=== PATIENT | male | born 1970 | race Two or more races ===

== ENCOUNTER 2021-10-24 11:51 | Outpatient (REF) | payer MEDICARE, MEDICAID, SELFPAY ==
--- NOTE | ~2021-10-24 | XR_ITS ---
EXAMINATION: XR CHEST CLINICAL INFORMATION: Cough. COMPARISON: CT chest 07/23/2019 TECHNIQUE: 2 views of the chest were obtained. FINDINGS: No significant abnormality is noted involving the heart, lungs, mediastinum, bony thorax or soft tissues. XR/XR chest 2V IMPRESSION: Unremarkable chest examination.
== END 2021-10-24 11:52 | disposition home or self-care (01) ==
LOC: HO.XRAY 11:51
PROVIDERS: PCP Internal Medicine Geriatric Medicine; Visit Provider Family Medicine
DX: U07.1 COVID-19 (principal)
CPT/HCPCS: 71046

== ENCOUNTER 2022-02-03 12:53 | Emergency (ER) | payer MEDICARE, SELFPAY | END 2022-02-03 19:27 | disposition left against medical advice (07) | PROVIDERS: Emergency Provider Emergency Medicine; PCP Internal Medicine Geriatric Medicine | DX: K46.9 Unspecified abdominal hernia without obstruction or gangrene (principal) ==

== ENCOUNTER 2022-03-26 08:45 | Outpatient (REF) | payer MEDICARE, SELFPAY ==
--- NOTE | ~2022-03-26 | US_ITS ---
EXAMINATION: US ABDOMEN LIMITED CLINICAL INFORMATION: Umbilical hernia. COMPARISON: CT abdomen and pelvis with contrast 07/23/2019. TECHNIQUE: Real-time imaging of the periumbilical region. FINDINGS: A sliding-type umbilical hernia defect is seen, with neck measuring 1.1 x 1.1 cm (4:4 and 2:42). This contains a small peristalsing bowel loop. No mass or fluid collection is seen. There is no lymphadenopathy noted. No foreign body is seen. US/US abdomen limited IMPRESSION: A small sliding-type umbilical hernia defect is noted, as detailed.
== END 2022-03-26 08:46 | disposition home or self-care (01) ==
LOC: HO.US 08:45
PROVIDERS: Visit Provider Student in an Organized Health Care Education/Training Program
DX: K42.9 Umbilical hernia without obstruction or gangrene (principal)
CPT/HCPCS: 76705

== ENCOUNTER → 2022-04-24 12:51 | Outpatient (BNVA) | payer MEDICARE, SELFPAY | PROVIDERS: PCP Student in an Organized Health Care Education/Training Program; Visit Provider Surgery | DX: K42.9 Umbilical hernia without obstruction or gangrene (principal); E66.01 Morbid (severe) obesity due to excess calories; R06.83 Snoring; G47.33 Obstructive sleep apnea (adult) (pediatric); F19.10 Other psychoactive substance abuse, uncomplicated; Z68.42 Body mass index [BMI] 45.0-49.9, adult | CPT/HCPCS: 99202 ==

== ENCOUNTER 2022-05-04 11:52 | Outpatient (REF) | payer MEDICARE, SELFPAY ==
[2022-05-04 12:02] LABS: MANUAL DIFF FLAG NO
[2022-05-04 12:24] LABS: Basophils Percent Auto 0.4 % (0-2); Eosinophils Absolute Auto 0.2 X10*3/uL (0.0-0.4); Eosinophils Percent Auto 2.6 % (0-4); Hematocrit 49.8 % (42.0-52.0); Hemoglobin 15.7 g/dl (14.0-18.0); Imm Gran Abs Auto 0.02 X10*3/uL (0.00-0.03); Imm Gran Pct Auto 0.2 % (0.0-0.4); Lymphocytes Percent Auto 24.5 % (20-40); Mean Corpuscular HGB Conc 31.5 g/dl (31.0-36.0); Mean Corpuscular Hemoglobin 27.2 pg (27.0-33.0); Mean Corpuscular Volume 86.2 fL (80.0-98.0); Mean Platelet Volume 8.6 fL (9.4-12.4); Monocytes Absolute Auto 0.5 X10*3/uL (0.1-1.2); Monocytes Percent Auto 5.7 % (2-11); Neutrophils Absolute Auto 5.4 x10*3/uL (2.0-8.3); Neutrophils Percent Auto 66.6 % (45-73); Platelet Count 293 X10*3/uL (160-400); Red Blood Count 5.78 X10*6/uL (4.60-5.80); Red Cell Distribution Width 13.4 % (11.0-16.0); White Blood Count 8.1 X10*3/uL (4.8-10.8)
[2022-05-04 12:51] LABS: Estimated Average Glucose 140 mg/dL; Hemoglobin A1c % 6.5 %
[2022-05-04 12:57] LABS: Alanine Aminotransferase 57 U/L (0-40); Albumin Level 4.3 g/dL (3.5-5.0); Alkaline Phosphatase 117 U/L (39-117); Anion Gap 13 (12-20); Aspartate Amino Transferase 27 U/L (5-37); Bilirubin Total 0.4 mg/dL (0.0-1.0); Blood Urea Nitrogen 15 mg/dL (9-16); Calcium 9.7 mg/dL (8.4-10.2); Carbon Dioxide 27 mmol/L (22-29); Chloride 104 mmol/L (96-108); Estimated Glomerular Filt Rate > 60; Glucose Random 142 mg/dL (60-115); Potassium 4.5 mmol/L (3.3-5.1); Sodium 139 mmol/L (135-145); Total Protein 7.4 g/dL (6.5-8.0)
[2022-05-04 15:44] LABS: Amphetamine Screen Urine Not Detected (Not Detect); Barbiturates, Urine Not Detected (Not Detect); Benzodiazepines Screen Urine Not Detected (Not Detect); Cannabinoid Screen Urine Not Detected (Not Detect); Cocaine Screen Urine Not Detected (Not Detect); Fentanyl, urine Not Detected (Not Detect); Opiate Screen Urine Not Detected (Not Detect); Phencyclidine Screen Urine Not Detected (Not Detect)
[2022-05-10 03:34] LABS: Cotinine, U 1757 ng/mL; Nicotine, U >20000 ng/mL
== END 2022-05-04 11:53 | disposition home or self-care (01) ==
LOC: HO.LAB 11:52
PROVIDERS: Visit Provider Surgery
DX: E66.01 Morbid (severe) obesity due to excess calories (principal); F19.10 Other psychoactive substance abuse, uncomplicated; G47.33 Obstructive sleep apnea (adult) (pediatric); K42.9 Umbilical hernia without obstruction or gangrene; R06.83 Snoring; R73.9 Hyperglycemia, unspecified
CPT/HCPCS: 80053; 80307; 80323; 83036; 84134; 85025

== ENCOUNTER 2022-05-14 14:49 | Outpatient (REF) | payer MEDICARE, MEDICAID, SELFPAY ==
--- NOTE | ~2022-05-14 | CT_ITS ---
EXAMINATION: CT ABDOMEN AND PELVIS WITHOUT CONTRAST CLINICAL INFORMATION: Umbilical hernia without obstruction COMPARISON: CT abdomen and pelvis with IV contrast 07/23/2019 TECHNIQUE: Multidetector volumetric imaging was performed from the superior aspect of the liver through the pubic symphysis. Sagittal and coronal reformatted images were obtained on the technologist's workstation. This CT examination was performed using dose optimization techniques as appropriate, variously including the following: *Automated exposure control *Adjustment of mA and/or kV according to patient size (this includes techniques or standardized protocols for targeted exams where dose is matched to indication/reason for exam; i.e. extremities or head) *Use of iterative reconstruction technique DLP: 953 mGy-cm FINDINGS: LUNG BASES: The visualized lung bases are unremarkable. LIVER, GALLBLADDER, AND BILIARY TREE: The liver is normal in size, shape, and hypo-attenuation. Findings are consistent with fatty infiltration with areas of peripheral focal and jay gallbladder fatty sparing in the right hepatic lobe No focal hepatic lesion or biliary ductal dilatation is present. The gallbladder is unremarkable with no evidence of radiopaque gallstones, gallbladder wall thickening, or obvious pericholecystic inflammatory changes. PANCREAS: There is mild prominence of the pancreatic tail but similar to previous CT chest exam 07/23/2019. The pancreas is homogeneous in density. Pancreatic duct is not visualized. SPLEEN: There is a hypodense round lesion in the anterior spleen measuring 2.9 x 2.8 cm and 4.7 Hounsfield units suggestive of a simple cyst. It is stable. ADRENAL GLANDS: Unremarkable. KIDNEYS AND URETERS: The kidneys are normal in size, shape, and attenuation. No hydronephrosis, hydroureter, or calculi seen. No perinephric stranding. BLADDER: Unremarkable. GASTROINTESTINAL TRACT: There is scattered stool and gas seen throughout the colon without any significant distention. The small bowel loops are normal caliber. The appendix is not visualized. ABDOMINAL WALL: There is a small umbilical hernia containing fat. LYMPH NODES: Normal. VASCULAR: Unremarkable. PELVIC VISCERA: Unremarkable. OSSEOUS STRUCTURES: There is no aggressive lytic or sclerotic process. There is moderate ventral spondylosis lower dorsal and upper lumbar spine. CT/CT abdomen pelvis wo IV con IMPRESSION: 1. Hepatic steatosis with focal areas of fatty sparing in the right hepatic lobe. 2. Stable splenic cyst. 3. Mild constipation. 4. Small umbilical hernia containing fat. Fleischner guidelines were followed.
== END 2022-05-14 14:50 | disposition home or self-care (01) ==
LOC: HO.CT 14:49
PROVIDERS: PCP Internal Medicine Geriatric Medicine; Visit Provider Surgery
DX: E66.01 Morbid (severe) obesity due to excess calories (principal); K42.9 Umbilical hernia without obstruction or gangrene
CPT/HCPCS: 74176

== ENCOUNTER → 2022-05-26 10:48 | Outpatient (BNVA) | payer MEDICARE, SELFPAY | PROVIDERS: PCP Internal Medicine Geriatric Medicine; Visit Provider Surgery | DX: K42.9 Umbilical hernia without obstruction or gangrene (principal); E66.01 Morbid (severe) obesity due to excess calories; G47.33 Obstructive sleep apnea (adult) (pediatric); E11.9 Type 2 diabetes mellitus without complications; R41.3 Other amnesia; F19.10 Other psychoactive substance abuse, uncomplicated; F17.210 Nicotine dependence, cigarettes, uncomplicated; Z68.42 Body mass index [BMI] 45.0-49.9, adult; Z91.148 Patient's other noncompliance with medication regimen for other reason | CPT/HCPCS: 99212 ==

== ENCOUNTER 2022-06-10 08:41 | Emergency (ER) | payer MEDICARE, MEDICAID, SELFPAY ==
--- NOTE | ~2022-06-10 | XR_ITS ---
EXAMINATION: XR CHEST CLINICAL INFORMATION: Shortness of breath COMPARISON: Left from 10/24/2021 TECHNIQUE: 2 views of the chest were obtained. FINDINGS: Bilateral low lung volumes. Slight elevation the right hemidiaphragm. Accentuation of the pulmonary vasculature. Bibasilar atelectasis. No pneumothorax. Trachea is midline. Cardiomediastinal silhouette is not enlarged. No large pleural effusion. Osseous structures are intact. Soft tissues are unremarkable XR/XR chest 2V IMPRESSION: 1. Bilateral low lung volumes. 2. Slight elevation the right hemidiaphragm. 3. Accentuation of the pulmonary vasculature. 4. Bibasilar atelectasis.
--- NOTE | 2022-06-10 08:42 | ECG_ITS ---
Test Reason : SYNCOPE Blood Pressure : / mmHG Vent. Rate : 095 BPM Atrial Rate : 095 BPM P-R Int : 148 ms QRS Dur : 074 ms QT Int : 346 ms P-R-T Axes : 040 032 027 degrees QTc Int : 434 ms Normal sinus rhythm Possible Left atrial enlargement Borderline ECG When compared with ECG of 02-JUN-2019 01:58, No significant change was found Referred By: Frances Hutton Electronically Signed By:JESUS MCCORMACK MD
[2022-06-10 08:49] VITALS: BP 138/92; PULSE 103; RESP 20; TEMP 37.2; O2SAT 96; BMI 48.2
--- NOTE | 2022-06-10 09:10 | ED_ITS ---
HPI - Dizziness General Chief Complaint: Syncope Stated Complaint: Rapid heart rate (108HR) per EMS Source: patient Mode of arrival: EMS History of Present Illness HPI Narrative: 52-year-old male who states that he has not been feeling well and arrives via EMS since being started on Trulicity. Patient states that he went to stand up today became very dizzy and on triage note states syncopal episodes, however patient denies falling in striking head. He reports some nausea but denies any vomiting or diarrhea states that he felt like he was having a racing heart with shortness of breath and headache. Patient states that today his symptoms all started after taking his dose of Trulicity at 05:30. Related Data Home Medications Medication Instructions Recorded Confirmed acetaminophen 650 mg 650 mg PO Q6H PRN fever 04/24/22 tablet,extended release (Arthritis Pain Relief (acetaminophen) ER) baclofen 10 mg tablet 10 mg PO TID PRN muscle spasm 04/24/22 buprenorphine 4 mg-naloxone 1 mg 5 mg sublingual DAILY 04/24/22 sublingual film buprenorphine 8 mg-naloxone 2 mg 20 mg sublingual DAILY 04/24/22 sublingual film celecoxib 200 mg capsule 200 mg PO DAILY PRN 04/24/22 fluticasone propionate 50 2 spray intranasal DAILY 04/24/22 mcg/actuation nasal spray,suspension folic acid 1 mg tablet 1 mg PO DAILY 04/24/22 furosemide 20 mg tablet 20 mg PO DAILY 04/24/22 lidocaine 5 % topical patch 1 patch topical DAILY 04/24/22 lisinopril 20 mg tablet 20 mg PO DAILY 04/24/22 loratadine 10 mg tablet (Allergy 10 mg PO DAILY 04/24/22 Relief (loratadine)) melatonin 3 mg tablet 3 mg PO BEDTIME 04/24/22 multivitamin 1 tab PO DAILY 04/24/22 omeprazole 20 mg capsule,delayed 20 mg PO DAILY 04/24/22 release thiamine HCl (vitamin B1) 100 mg 100 mg PO DAILY 04/24/22 tablet tizanidine 2 mg tablet 2 mg PO TID 04/24/22 trazodone 50 mg tablet 100 mg PO BEDTIME PRN 04/24/22 Allergies Allergy/AdvReac Type Severity Reaction Status Date / Time aspirin [ASPIRIN] Allergy Unknown SWELLING, Verified 05/26/22 12:50 NAUSEA, VOMITING Review of Systems Review of Systems: Pertinent positives and negatives as stated in HPI PMFSH Past Medical History Source: nursing notes reviewed Medical History Amnesia Asthma Chest pain Chronic lower back pain Chronic pain of left knee Depressive disorder Essential hypertension Heartburn History of COVID-19 Homeless Hyperglycemia Leg edema, left Nausea Palpitations Prostatism Rectal hemorrhage Tobacco dependence syndrome Surgical History History of surgery on arm History of surgery on lower extremity Family History Family History Mother Heart disease Diabetes Dementia Brainstem hemorrhage Father No problems noted. Social History Social History Alcohol intake: never Patient Tobacco Use Status: Never used Tobacco Smoked in Last 30 Days: No Use of substances other than those prescribed or required for medical reasons: No Advance Directives: No Physical Exam Vital Signs: Vital Signs: Last Vital Signs Temp 98.3 F 06/10/22 11:35 Pulse 99 06/10/22 11:35 Resp 14 06/10/22 11:35 BP 120/80 06/10/22 11:35 Pulse Ox 94 06/10/22 11:35 O2 Del Method Room Air 06/10/22 11:35 Oxygen Flow Rate 3 06/10/22 08:49 BMI result Body Mass Index 48.2 VITAL SIGNS: Reviewed. GENERAL: Well developed, well nourished, in no acute distress. HEAD: Normocephalic/atraumatic EYES: PERRLA, EOMI EARS: Ext canals without abnormality NOSE: Nares patent bilateral OROPHARYNX: no oral lesions noted, posterior pharynx clear NECK: Supple, no adenopathy LUNGS: Normal breath sounds. No adventitious sounds or accessory muscle use. SpO2<96> CARDIOVASCULAR: Regular rate and rhythm without noted murmurs, no JVD or lower extremity edema. ABDOMEN: Soft, non-tender, non-distended with bowel sounds. MUSCULOSKELETAL: No tenderness, deformities, or effusions noted on gross inspection. EXTREMITIES: No cyanosis, clubbing or edema. SKIN: Inspection of the skin reveals no rashes NEUROLOGIC: Alert and oriented x 4. Strength and sensation to light touch were grossly intact x 4. Medications Administered Discontinued Medications Generic Name Dose Route Start Last Admin Trade Name Herb PRN Reason Stop Dose Admin Sodium Chloride 1,000 mls @ 999 mls/hr 06/10/22 09:15 06/10/22 11:06 Ns IV 06/10/22 10:15 Infused .Q1H1M JOVANNY Infusion Medical Decision Making Medical Decision Making [facility] Narrative: 52-year-old male with history and clinical presentation suggestive of possible illicit substance use, dehydration, or less likely cardiopulmonary etiology or infection. Reviewed all investigations and my interpretation is that the mildly elevated potassium is secondary to hemolysis as stated in laboratory notes, serial troponins are flat, and the noted LFTs are likely secondary to fatty liver as patient has no abdominal pain and is afebrile. Patient received IV fluids and is otherwise feeling better and stable for discharge to home. Differential Diagnosis Please see the discussion above Lab Data Please see the discussion above 06/10/22 09:51 06/10/22 09:51 Labs: Lab Results 06/10/22 06/10/22 06/10/22 Range/Units 09:51 09:51 09:51 WBC 9.5 (4.8-10.8) X10*3/uL RBC 4.96 (4.60-5.80) X10*6/uL Hgb 13.9 L (14.0-18.0) g/dl Hct 43.1 (42.0-52.0) % MCV 86.9 (80.0-98.0) fL MCH 28.0 (27.0-33.0) pg MCHC 32.3 (31.0-36.0) g/dl RDW 13.5 (11.0-16.0) % Plt Count 284 (160-400) X10*3/uL MPV 8.6 L (9.4-12.4) fL Immature Gran % (Auto) 0.4 (0.0-0.4) % Neut % (Auto) 71.5 (45-73) % Lymph % (Auto) 17.4 L (20-40) % [place] % (Auto) 8.0 (2-11) % Eos % (Auto) 2.5 (0-4) % Baso % (Auto) 0.2 (0-2) % Lymph # (Auto) 1.7 (1.2-4.9) X10*3/uL [place] # (Auto) 0.8 (0.1-1.2) X10*3/uL Eos # (Auto) 0.2 (0.0-0.4) X10*3/uL Baso # (Auto) 0.0 (0.0-0.2) X10*3/uL Abs Immat Gran (auto) 0.04 H (0.00-0.03) X10*3/uL Absolute Neuts (auto) 6.8 (2.0-8.3) x10*3/uL Absolute Nucleated RBC 0.000 (0.0-0.012) X10*3/uL Nucleated RBC % (auto) 0.0 (0.0-0.2) /100WBC PT 12.8 (10.0-13.1) SEC INR 1.1 (0.9-1.1) Sodium 138 (135-145) mmol/L Potassium 5.5 H D (3.3-5.1) mmol/L Chloride 101 (96-108) mmol/L Carbon Dioxide 28 (22-29) mmol/L Anion Gap 15 (12-20) BUN 12 (9-16) mg/dL Creatinine 0.97 (0.5-1.4) mg/dL Estim Creat Clear Calc 121.6 Estimated GFR > 60 Random Glucose 126 H (60-115) mg/dL Calcium 9.2 (8.4-10.2) mg/dL Total Bilirubin 0.6 (0.0-1.0) mg/dL AST 41 H (5-37) U/L ALT 62 H (0-40) U/L Alkaline Phosphatase 120 H (39-117) U/L Troponin I High Sens (<3.5-35.0) ng/L B-Natriuretic Peptide (<100) pg/mL Total Protein 6.9 (6.5-8.0) g/dL Albumin 3.5 (3.5-5.0) g/dL Lipase 47 (8-78) U/L Urine Color Urine Appearance Urine pH (5.0-9.0) Ur Specific [place] (1.005-1.025) Urine Protein (Neg-Trace) mg/dL Urine Glucose (UA) (Negative) mg/dL Urine Ketones (Negative) mg/dL Urine Blood (Negative) Urine Nitrite (Negative) Ur Leukocyte Esterase (Negative) Urine RBC (0-2) /HPF Urine WBC (0-5) /HPF Ur Squamous Epith Cells (0-2) /HPF Urine Bacteria (None Seen) Hyaline Casts (0-2) /LPF Urine Opiates Screen (Not Detect) Urine Fentanyl Screen (Not Detect) Ur Barbiturates Screen (Not Detect) Ur Phencyclidine Scrn (Not Detect) Ur Amphetamines Screen (Not Detect) U Benzodiazepines Scrn (Not Detect) Urine Cocaine Screen (Not Detect) U Marijuana (THC) Screen (Not Detect) Ethyl Alcohol < 10 mg/dL 06/10/22 06/10/22 06/10/22 Range/Units 09:51 09:51 11:28 WBC (4.8-10.8) X10*3/uL RBC (4.60-5.80) X10*6/uL Hgb (14.0-18.0) g/dl Hct (42.0-52.0) % MCV (80.0-98.0) fL MCH (27.0-33.0) pg MCHC (31.0-36.0) g/dl RDW (11.0-16.0) % Plt Count (160-400) X10*3/uL MPV (9.4-12.4) fL Immature Gran % (Auto) (0.0-0.4) % Neut % (Auto) (45-73) % Lymph % (Auto) (20-40) % [place] % (Auto) (2-11) % Eos % (Auto) (0-4) % Baso % (Auto) (0-2) % Lymph # (Auto) (1.2-4.9) X10*3/uL [place] # (Auto) (0.1-1.2) X10*3/uL Eos # (Auto) (0.0-0.4) X10*3/uL Baso # (Auto) (0.0-0.2) X10*3/uL Abs Immat Gran (auto) (0.00-0.03) X10*3/uL Absolute Neuts (auto) (2.0-8.3) x10*3/uL Absolute Nucleated RBC (0.0-0.012) X10*3/uL Nucleated RBC % (auto) (0.0-0.2) /100WBC PT (10.0-13.1) SEC INR (0.9-1.1) Sodium (135-145) mmol/L Potassium (3.3-5.1) mmol/L Chloride (96-108) mmol/L Carbon Dioxide (22-29) mmol/L Anion Gap (12-20) BUN (9-16) mg/dL Creatinine (0.5-1.4) mg/dL Estim Creat Clear Calc Estimated GFR Random Glucose (60-115) mg/dL Calcium (8.4-10.2) mg/dL Total Bilirubin (0.0-1.0) mg/dL AST (5-37) U/L ALT (0-40) U/L Alkaline Phosphatase (39-117) U/L Troponin I High Sens 22.6 (<3.5-35.0) ng/L B-Natriuretic Peptide 68 (<100) pg/mL Total Protein (6.5-8.0) g/dL Albumin (3.5-5.0) g/dL Lipase (8-78) U/L Urine Color Yellow Urine Appearance Clear Urine pH 5.5 (5.0-9.0) Ur Specific [place] 1.025 (1.005-1.025) Urine Protein 100 (2+) H (Neg-Trace) mg/dL Urine Glucose (UA) Negative (Negative) mg/dL Urine Ketones Negative (Negative) mg/dL Urine Blood Negative (Negative) Urine Nitrite Negative (Negative) Ur Leukocyte Esterase Negative (Negative) Urine RBC 0-2 (0-2) /HPF Urine WBC 0-5 (0-5) /HPF Ur Squamous Epith Cells 0-2 (0-2) /HPF Urine Bacteria None Seen (None Seen) Hyaline Casts 0-2 (0-2) /LPF Urine Opiates Screen (Not Detect) Urine Fentanyl Screen (Not Detect) Ur Barbiturates Screen (Not Detect) Ur Phencyclidine Scrn (Not Detect) Ur Amphetamines Screen (Not Detect) U Benzodiazepines Scrn (Not Detect) Urine Cocaine Screen (Not Detect) U Marijuana (THC) Screen (Not Detect) Ethyl Alcohol mg/dL 06/10/22 06/10/22 Range/Units 11:28 12:28 WBC (4.8-10.8) X10*3/uL RBC (4.60-5.80) X10*6/uL Hgb (14.0-18.0) g/dl Hct (42.0-52.0) % MCV (80.0-98.0) fL MCH (27.0-33.0) pg MCHC (31.0-36.0) g/dl RDW (11.0-16.0) % Plt Count (160-400) X10*3/uL MPV (9.4-12.4) fL Immature Gran % (Auto) (0.0-0.4) % Neut % (Auto) (45-73) % Lymph % (Auto) (20-40) % [place] % (Auto) (2-11) % Eos % (Auto) (0-4) % Baso % (Auto) (0-2) % Lymph # (Auto) (1.2-4.9) X10*3/uL [place] # (Auto) (0.1-1.2) X10*3/uL Eos # (Auto) (0.0-0.4) X10*3/uL Baso # (Auto) (0.0-0.2) X10*3/uL Abs Immat Gran (auto) (0.00-0.03) X10*3/uL Absolute Neuts (auto) (2.0-8.3) x10*3/uL Absolute Nucleated RBC (0.0-0.012) X10*3/uL Nucleated RBC % (auto) (0.0-0.2) /100WBC PT (10.0-13.1) SEC INR (0.9-1.1) Sodium (135-145) mmol/L Potassium (3.3-5.1) mmol/L Chloride (96-108) mmol/L Carbon Dioxide (22-29) mmol/L Anion Gap (12-20) BUN (9-16) mg/dL Creatinine (0.5-1.4) mg/dL Estim Creat Clear Calc Estimated GFR Random Glucose (60-115) mg/dL Calcium (8.4-10.2) mg/dL Total Bilirubin (0.0-1.0) mg/dL AST (5-37) U/L ALT (0-40) U/L Alkaline Phosphatase (39-117) U/L Troponin I High Sens 17.8 (<3.5-35.0) ng/L B-Natriuretic Peptide (<100) pg/mL Total Protein (6.5-8.0) g/dL Albumin (3.5-5.0) g/dL Lipase (8-78) U/L Urine Color Urine Appearance Urine pH (5.0-9.0) Ur Specific [place] (1.005-1.025) Urine Protein (Neg-Trace) mg/dL Urine Glucose (UA) (Negative) mg/dL Urine Ketones (Negative) mg/dL Urine Blood (Negative) Urine Nitrite (Negative) Ur Leukocyte Esterase (Negative) Urine RBC (0-2) /HPF Urine WBC (0-5) /HPF Ur Squamous Epith Cells (0-2) /HPF Urine Bacteria (None Seen) Hyaline Casts (0-2) /LPF Urine Opiates Screen Not Detected (Not Detect) Urine Fentanyl Screen Not Detected (Not Detect) Ur Barbiturates Screen Not Detected (Not Detect) Ur Phencyclidine Scrn Not Detected (Not Detect) Ur Amphetamines Screen Not Detected (Not Detect) U Benzodiazepines Scrn Not Detected (Not Detect) Urine Cocaine Screen Not Detected (Not Detect) U Marijuana (THC) Screen Not Detected (Not Detect) Ethyl Alcohol mg/dL Independent Interpretation I performed an independent interpretation of an: EKG Interpretation: Normal sinus rhythm, HR-95, no STEMI, ID/QRS/QTC is within normal limits. Radiology Impression Radiologist Impression: My interpretation is in agreement with radiology's impression of the imaging studies. External Record Review External record reviewed: Outpatient record, Prior outpatient labs and Outside ED record Chronic Conditions Patient?s care impacted by: Diabetes and Hypertension Discharge Plan Discharge Clinical Impression: Syncope, vasovagal, Breath shortness Patient Disposition: Home, Self-Care Instructions: Shortness of Breath (ED), Syncope (ED) Additional Instructions: 1. Resume all home medications. 2. Please call the office of your primary care provider and set up an appointment for re-evaluation. Return to the ER for any worsening symptoms. Prescriptions: No Action folic acid 1 mg tablet 1 mg PO DAILY baclofen 10 mg tablet 10 mg PO TID PRN (Reason: muscle spasm) omeprazole 20 mg capsule,delayed release(DR/EC) 20 mg PO DAILY multivitamin Tablet 1 tab PO DAILY melatonin 3 mg tablet 3 mg PO BEDTIME celecoxib 200 mg capsule 200 mg PO DAILY PRN lisinopril 20 mg tablet 20 mg PO DAILY tizanidine 2 mg tablet 2 mg PO TID trazodone 50 mg tablet 100 mg PO BEDTIME PRN acetaminophen [Arthritis Pain Relief (acetam)] 650 mg tablet extended release 650 mg PO Q6H PRN (Reason: fever) furosemide 20 mg tablet 20 mg PO DAILY buprenorphine-naloxone 8-2 mg film 20 mg sublingual DAILY buprenorphine-naloxone 4-1 mg film 5 mg sublingual DAILY thiamine HCl (vitamin B1) 100 mg tablet 100 mg PO DAILY loratadine [Allergy Relief (loratadine)] 10 mg tablet 10 mg PO DAILY fluticasone propionate 50 mcg/actuation spray,suspension 2 spray intranasal DAILY lidocaine 5 % adhesive patch,medicated 1 patch topical DAILY Referrals: Name,MD Haresh [Primary Care Provider] -
[2022-06-10 09:57] LABS: MANUAL DIFF FLAG NO
[2022-06-10 09:58] LABS: Basophils Percent Auto 0.2 % (0-2); Eosinophils Absolute Auto 0.2 X10*3/uL (0.0-0.4); Eosinophils Percent Auto 2.5 % (0-4); Hematocrit 43.1 % (42.0-52.0); Hemoglobin 13.9 g/dl (14.0-18.0); Imm Gran Abs Auto 0.04 X10*3/uL (0.00-0.03); Imm Gran Pct Auto 0.4 % (0.0-0.4); Lymphocytes Absolute Auto 1.7 X10*3/uL (1.2-4.9); Lymphocytes Percent Auto 17.4 % (20-40); Mean Corpuscular HGB Conc 32.3 g/dl (31.0-36.0); Mean Corpuscular Volume 86.9 fL (80.0-98.0); Mean Platelet Volume 8.6 fL (9.4-12.4); Monocytes Absolute Auto 0.8 X10*3/uL (0.1-1.2); Neutrophils Absolute Auto 6.8 x10*3/uL (2.0-8.3); Neutrophils Percent Auto 71.5 % (45-73); Platelet Count 284 X10*3/uL (160-400); Red Blood Count 4.96 X10*6/uL (4.60-5.80); Red Cell Distribution Width 13.5 % (11.0-16.0); White Blood Count 9.5 X10*3/uL (4.8-10.8)
[2022-06-10] MEDS: 0.9 % Sodium Chloride 1,000 ML 999 ML IV (10:04)
[2022-06-10 10:05] LABS: INTERNATIONAL NORM RATIO 1.1 (0.9-1.1); Prothrombin Time 12.8 SEC (10.0-13.1)
[2022-06-10 10:20] LABS: B Type Natriuretic Peptide 68 pg/mL (<100); Troponin-I High Sensitivity 22.6 ng/L (<3.5-35.0)
[2022-06-10 10:21] LABS: Alanine Aminotransferase 62 U/L (0-40); Albumin Level 3.5 g/dL (3.5-5.0); Alkaline Phosphatase 120 U/L (39-117); Anion Gap 15 (12-20); Aspartate Amino Transferase 41 U/L (5-37); Bilirubin Total 0.6 mg/dL (0.0-1.0); Blood Urea Nitrogen 12 mg/dL (9-16); Calcium 9.2 mg/dL (8.4-10.2); Carbon Dioxide 28 mmol/L (22-29); Chloride 101 mmol/L (96-108); Creatinine Clr Calc Pharmacy 121.6; Estimated Glomerular Filt Rate > 60; Glucose Random 126 mg/dL (60-115); Potassium 5.5 mmol/L (3.3-5.1); Sodium 138 mmol/L (135-145); Total Protein 6.9 g/dL (6.5-8.0)
[2022-06-10 11:15] VITALS: BP 104/61; BP 104/69; PULSE 106; PULSE 90
[2022-06-10 11:18] VITALS: BP 101/81; PULSE 98
[2022-06-10 11:24] LABS: Ethanol < 10 mg/dL; Lipase 47 U/L (8-78)
[2022-06-10 11:35] VITALS: BP 120/80; PULSE 99; RESP 14; TEMP 36.8; O2SAT 94
[2022-06-10 11:43] LABS: Appearance Urine Clear; Color Urine Yellow; Glucose Urine UA Negative (Negative); Leukocyte Esterase Urine Negative (Negative); Nitrite Urine Negative (Negative); PH 5.5 (5.0-9.0); Specific Gravity - Urine 1.025 (1.005-1.025); UMIC TRIGGER UACC YES; Urine Blood Negative (Negative); Urine Ketones Negative (Negative); Urine Protein 100 (2+) mg/dL (Neg-Trace)
[2022-06-10 11:48] LABS: Bacteria Urine None Seen (None Seen); Hyaline Casts Urine 0-2 /LPF (0-2); RBC Urine 0-2 /HPF (0-2); Squamous Epithelial Cell Urine 0-2 /HPF (0-2); WBC Urine 0-5 /HPF (0-5)
[2022-06-10 11:56] LABS: Amphetamine Screen Urine Not Detected (Not Detect); Barbiturates, Urine Not Detected (Not Detect); Benzodiazepines Screen Urine Not Detected (Not Detect); Cannabinoid Screen Urine Not Detected (Not Detect); Cocaine Screen Urine Not Detected (Not Detect); Fentanyl, urine Not Detected (Not Detect); Opiate Screen Urine Not Detected (Not Detect); Phencyclidine Screen Urine Not Detected (Not Detect)
[2022-06-10 13:02] LABS: Troponin-I High Sensitivity 17.8 ng/L (<3.5-35.0)
--- NOTE | 2022-06-10 13:19 | PC.NURSE ---
pt threatening to leave, ripped out IV, reporting being hungry because he hasn't eaten since 5:30 last night and has been waiting around a long time . pt was given a meal tray, is currently calm and willing to stay/be cooperative. michele
== END 2022-06-10 13:39 | disposition home or self-care (01) ==
PROVIDERS: Emergency Provider Student in an Organized Health Care Education/Training Program; PCP Internal Medicine Geriatric Medicine
DX: R55 Syncope and collapse (principal); R06.02 Shortness of breath; E11.9 Type 2 diabetes mellitus without complications; I10 Essential (primary) hypertension; F19.10 Other psychoactive substance abuse, uncomplicated; F17.200 Nicotine dependence, unspecified, uncomplicated; Z79.85 Long-term (current) use of injectable non-insulin antidiabetic drugs; Z79.899 Other long term (current) drug therapy
CPT/HCPCS: 36415; 71046; 80053; 80307; 81001; 83690; 83880; 84484; 85025; 85610; 93005; 96360; 99284; 99285

== ENCOUNTER 2022-07-31 10:10 | Outpatient (REF) | payer MEDICARE, SELFPAY ==
[2022-07-31 11:24] LABS: MANUAL DIFF FLAG NO
[2022-07-31 12:14] LABS: Basophils Percent Auto 0.4 % (0-2); Eosinophils Absolute Auto 0.2 X10*3/uL (0.0-0.4); Eosinophils Percent Auto 2.6 % (0-4); Hematocrit 46.1 % (42.0-52.0); Hemoglobin 14.9 g/dl (14.0-18.0); Imm Gran Abs Auto 0.03 X10*3/uL (0.00-0.03); Imm Gran Pct Auto 0.4 % (0.0-0.4); Lymphocytes Absolute Auto 2.4 X10*3/uL (1.2-4.9); Lymphocytes Percent Auto 29.1 % (20-40); Mean Corpuscular HGB Conc 32.3 g/dl (31.0-36.0); Mean Corpuscular Hemoglobin 27.7 pg (27.0-33.0); Mean Corpuscular Volume 85.8 fL (80.0-98.0); Mean Platelet Volume 8.9 fL (9.4-12.4); Monocytes Absolute Auto 0.5 X10*3/uL (0.1-1.2); Monocytes Percent Auto 5.8 % (2-11); Neutrophils Percent Auto 61.7 % (45-73); Platelet Count 315 X10*3/uL (160-400); Red Blood Count 5.37 X10*6/uL (4.60-5.80); Red Cell Distribution Width 14.1 % (11.0-16.0); White Blood Count 8.1 X10*3/uL (4.8-10.8)
[2022-07-31 12:31] LABS: Estimated Average Glucose 128 mg/dL; Hemoglobin A1c % 6.1 %
[2022-07-31 12:48] LABS: Amphetamine Screen Urine Not Detected (Not Detect); Barbiturates, Urine Not Detected (Not Detect); Benzodiazepines Screen Urine Not Detected (Not Detect); Cannabinoid Screen Urine POSITIVE (Not Detect); Cocaine Screen Urine Not Detected (Not Detect); Fentanyl, urine Not Detected (Not Detect); Opiate Screen Urine Not Detected (Not Detect); Phencyclidine Screen Urine Not Detected (Not Detect)
[2022-07-31 13:13] LABS: Alanine Aminotransferase 41 U/L (0-40); Albumin Level 4.1 g/dL (3.5-5.0); Alkaline Phosphatase 107 U/L (39-117); Anion Gap 12 (12-20); Aspartate Amino Transferase 19 U/L (5-37); Bilirubin Total 0.4 mg/dL (0.0-1.0); Blood Urea Nitrogen 13 mg/dL (9-16); Calcium 9.6 mg/dL (8.4-10.2); Carbon Dioxide 25 mmol/L (22-29); Chloride 105 mmol/L (96-108); Estimated Glomerular Filt Rate > 60; Glucose Random 105 mg/dL (60-115); Potassium 3.8 mmol/L (3.3-5.1); Sodium 138 mmol/L (135-145); Total Protein 7.7 g/dL (6.5-8.0)
[2022-08-06 23:14] LABS: Cotinine, U 1854 ng/mL; Nicotine, U 17410 ng/mL
== END 2022-07-31 10:11 | disposition home or self-care (01) ==
LOC: HO.LAB 10:10
PROVIDERS: PCP Internal Medicine Geriatric Medicine; Visit Provider Surgery
DX: K42.9 Umbilical hernia without obstruction or gangrene (principal); G47.33 Obstructive sleep apnea (adult) (pediatric); E66.01 Morbid (severe) obesity due to excess calories; F19.10 Other psychoactive substance abuse, uncomplicated; E11.9 Type 2 diabetes mellitus without complications; F17.200 Nicotine dependence, unspecified, uncomplicated; Z91.199 Patient's noncompliance with other medical treatment and regimen due to unspecified reason
CPT/HCPCS: 80053; 80307; 80323; 83036; 84134; 85025; 99212

== ENCOUNTER → 2022-08-14 12:28 | Outpatient (BNVA) | payer MEDICARE, SELFPAY | PROVIDERS: PCP Internal Medicine Geriatric Medicine; Visit Provider Surgery | DX: K42.9 Umbilical hernia without obstruction or gangrene (principal); E66.01 Morbid (severe) obesity due to excess calories; F17.210 Nicotine dependence, cigarettes, uncomplicated; G47.33 Obstructive sleep apnea (adult) (pediatric); F19.10 Other psychoactive substance abuse, uncomplicated; E11.9 Type 2 diabetes mellitus without complications; Z68.42 Body mass index [BMI] 45.0-49.9, adult | CPT/HCPCS: 99212 ==

== ENCOUNTER 2022-10-16 13:45 | Outpatient (AMB) | payer MEDICARE, SELFPAY ==
--- NOTE | 2022-10-16 13:51 | A.OFFVIS_ITS ---
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 Required: No Law Firm Consultant: Law Firm Consultant offered & declined Allergies aspirin [ASPIRIN] Allergy (Unknown, Verified 10/16/22 13:51) SWELLING, NAUSEA, VOMITING Medication List - Last Reconciled 10/16/22 by Stefan Fernandez MD acetaminophen ER (Arthritis Pain Relief (acetaminophen) ER) 650 mg PO Q6H PRN baclofen 10 mg PO TID PRN buprenorphine-naloxone 4-1 mg 5 mg sublingual DAILY buprenorphine-naloxone 8-2 mg 20 mg sublingual DAILY celecoxib 200 mg PO DAILY PRN fluoxetine 40 mg PO DAILY fluticasone propionate 50 mcg/actuation 2 sprays intranasal DAILY folic acid 1 mg PO DAILY furosemide 20 mg PO DAILY lidocaine 5% 1 patch topical DAILY lisinopril 20 mg PO DAILY loratadine (Allergy Relief (loratadine)) 10 mg PO DAILY melatonin 3 mg PO BEDTIME multivitamin 1 tab PO DAILY omeprazole 20 mg PO DAILY thiamine HCl (vitamin B1) 100 mg PO DAILY tizanidine 2 mg PO TID trazodone 100 mg PO BEDTIME PRN HPI HPI Comments History of Present Illness Details The patient is a 51-year-old gentleman seen by way of [facility] because of an umbilical hernia. There has been no prior abdominal operations. Patient reports umbilical pain but denies any signs or symptoms of obstruction, incarceration or strangulation. There been no prior attempts at repair. Patient reports that his weight is stable or that he might be losing weight. Patient was somewhat volatile when I explained the need to obtain labs, a CT and make a plan to discuss any operation. The patient is congratulated on his interval weight loss. He presented at 318 lb and is down to 301 on today's visit. He denies any worsening symptoms with his umbilical hernia and believes he can be nicotine free within 1 month as he titrate self of the nicotine lozenges. He also notes that his diet is been improved; his type 2 diabetes is stable. The patient reports a prior history of obstructive sleep apnea being diagnosed. He notes he is not compliant with any CPAP in notes he no longer has a machine. He was agitated that studies were lost and explained that the abdominal ultrasound that he had was not a CT scan and that we do not [place] labs since [place] [facility] [place] The patient notes that he changed his diet last week and is now eating some chicken and salad. He is continuing to use nicotine but otherwise, is unaware of any new health issues. [facility] Medical History Tobacco dependence syndrome Rectal hemorrhage Prostatism Palpitations Nausea Leg edema, left Hyperglycemia Homeless History of COVID-19 Heartburn Essential hypertension Depressive disorder Chronic pain of left knee Chronic lower back pain Chest pain Asthma Amnesia Surgical History History of surgery on lower extremity History of surgery on arm Family History Mother Heart disease Diabetes Dementia Brainstem hemorrhage Father No problems noted. Social History Alcohol intake: never Patient Tobacco Use Status: Never used Tobacco Review of Systems Const All systems reviewed & are unremarkable except as noted in HPI and below Reports as per HPI Physical Exam Vital Signs: Last Vital Signs Temp 97.7 F 10/16/22 13:59 Pulse 101 H 10/16/22 13:59 BP 136/87 10/16/22 13:59 Pulse Ox 96 10/16/22 13:59 Oxygen Delivery Method Room Air 10/16/22 13:59 BMI result Body Mass Index 47.2 On exam he is nontoxic Sclera are anicteric He is in no acute respiratory distress Abdomen is obese with an umbilical hernia that is reducible in a minimally tender. No trophic changes to the skin are present. Results Reviewed Results Reviewed: Labs 07/31/22 Positive nicotine test Hemoglobin A1c 6.1 Hemoglobin 14.9 with normal indices; white blood cell count normal at 8.1, platelet count 315k BUN 13, creatinine 0.91 LFTs show elevated ALT consistent with NAFLD; remaining LFTs are normal Labs dated 05/04/2022 Urine tox screen was negative for drugs of abuse, but positive for nicotine Hemoglobin 15.7, white blood cell count 8.1, platelet count 293 K BUN 15, creatinine 1.19 Hemoglobin A1c 6.5 c/w new Dx of DM2 Transaminases show AST elevation at 57 otherwise, LFTs within normal parameters CT dated 05/14/22 shows the fat filled umbilical hernia 1.88cm defect and an fatty liver Assessment & Plan Assessment & Plan (1) Umbilical hernia: Code(s): K42.9 - Umbilical hernia without obstruction or gangrene (2) Morbid (severe) obesity due to excess calories: Code(s): E66.01 - Morbid (severe) obesity due to excess calories (3) Snoring: Code(s): R06.83 - Snoring (4) BRONSON (obstructive sleep apnea): Code(s): G47.33 - Obstructive sleep apnea (adult) (pediatric) (5) Substance abuse: Code(s): F19.10 - Other psychoactive substance abuse, uncomplicated (6) DMII (diabetes mellitus, type 2): Code(s): E11.9 - Type 2 diabetes mellitus without complications (7) Tobacco dependence syndrome: Code(s): F17.200 - Nicotine dependence, unspecified, uncomplicated Plan The patient is congratulated on his interval weight loss and ongoing improvements to his health. We again reviewed the fact that bariatric surgery or some other form of significant weight loss with hernia repair at a delayed time would get offer him the best results and least risk of recurrence; the patient reports he is not interested in bariatric surgery and would like to continue to try to lose weight with his current dietary changes and believes he can wean himself off of the nicotine lozenges in a month. He will then submit a urine nicotine screen. The patient will follow-up with me in 2 months to discuss options regarding umbilical hernia repair. We did review the inherent risks of repair and an obese patient which include increased risk of recurrence, especially in the setting of weight gain. Other risks of infection and mesh complications were discussed and apparently understood. The patient notes that he feels better with his weight loss and weaning of nicotine and would like to follow-up in 2 months. He will contact me before then if he has worsening. Coding Level of Care Code Est Pt Level 4 (89947) Diagnoses Umbilical hernia K42.9 Morbid (severe) obesity due to excess calories E66.01 Snoring R06.83 BRONSON (obstructive sleep apnea) G47.33 Substance abuse F19.10 DMII (diabetes mellitus, type 2) E11.9 Tobacco dependence syndrome F17.200
[2022-10-16 13:59] VITALS: BP 136/87; PULSE 101; TEMP 36.5; O2SAT 96; BMI 47.2
== END 2022-10-16 14:13 | disposition home or self-care (01) ==
PROVIDERS: PCP Internal Medicine Geriatric Medicine; Visit Provider Surgery
DX: K42.9 Umbilical hernia without obstruction or gangrene (principal); E66.01 Morbid (severe) obesity due to excess calories; R06.83 Snoring; G47.33 Obstructive sleep apnea (adult) (pediatric); F19.10 Other psychoactive substance abuse, uncomplicated; E11.9 Type 2 diabetes mellitus without complications; F17.200 Nicotine dependence, unspecified, uncomplicated
CPT/HCPCS: 99214

== ENCOUNTER → 2022-10-16 13:45 | Outpatient (BNVA) | payer MEDICARE, SELFPAY | PROVIDERS: PCP Internal Medicine Geriatric Medicine; Visit Provider Surgery | DX: K42.9 Umbilical hernia without obstruction or gangrene (principal); E66.01 Morbid (severe) obesity due to excess calories; Z68.42 Body mass index [BMI] 45.0-49.9, adult; R06.83 Snoring; G47.33 Obstructive sleep apnea (adult) (pediatric); F19.10 Other psychoactive substance abuse, uncomplicated; E11.9 Type 2 diabetes mellitus without complications; F17.200 Nicotine dependence, unspecified, uncomplicated | CPT/HCPCS: 99212 ==

== ENCOUNTER 2022-12-04 13:29 | Outpatient (AMB) | payer MEDICARE, SELFPAY ==
--- NOTE | 2022-12-04 14:13 | MHC.OFFVIS ---
Intake Vital Signs 12/04/22 14:27 Height 5 ft 7 in Weight 301 lb 2.423 oz BMI 47.2 BP 107/67 Blood Pressure Location Rt brachial Position Sitting Pulse 94 Pulse Source Pulse Oximeter Temp 96.7 F L Temp Source Tympanic Pulse Oximetry (%) 96 Oxygen Delivery Method Room Air Intake Visit Reasons: Follow-up umbilical hernia Paleology Professor Required: No Biomedical Repair Technician: Biomedical Repair Technician offered & declined Allergies aspirin [ASPIRIN] Allergy (Unknown, Verified 10/16/22 13:51) SWELLING, NAUSEA, VOMITING Medication List - Last Reconciled 12/04/22 by Stefan Fernandez MD acetaminophen ER (Arthritis Pain Relief (acetaminophen) ER) 650 mg PO Q6H PRN buprenorphine-naloxone 4-1 mg 5 mg sublingual DAILY buprenorphine-naloxone 8-2 mg 20 mg sublingual DAILY celecoxib 200 mg PO DAILY PRN fluoxetine 40 mg PO DAILY fluticasone propionate 50 mcg/actuation 2 sprays intranasal DAILY folic acid 1 mg PO DAILY furosemide 20 mg PO DAILY lidocaine 5% 1 patch topical DAILY lisinopril 20 mg PO DAILY loratadine (Allergy Relief (loratadine)) 10 mg PO DAILY omeprazole 20 mg PO DAILY trazodone 100 mg PO BEDTIME PRN HPI HPI Comments History of Present Illness Details The patient is a 51-year-old gentleman seen by way of [facility] because of an umbilical hernia. There has been no prior abdominal operations. Patient reports no umbilical pain but denies any signs or symptoms of obstruction, incarceration or strangulation. There been no prior attempts at repair. The patient is congratulated on his interval weight loss. He presented at 318 lb and is stable at 301 on today's visit. He denies any worsening symptoms with his umbilical hernia and continues to use nicotine. He reports issues with his depression and medication adjustments and asked whether or not it was safe to postpone any operative decisions for several months. He continues to deny signs or symptoms of obstruction or incarceration. He also notes that his diet is been improved; his type 2 diabetes is stable. The patient reports a prior history of obstructive sleep apnea being diagnosed. He notes he is not compliant with any CPAP in notes he no longer has a machine. He was agitated that studies were lost and explained that the abdominal ultrasound that he had was not a CT scan and that we do not have labs since 2019 in [facility] [place]. The patient notes that he changed his diet last week and is now eating some chicken and salad. He is continuing to use nicotine but otherwise, is unaware of any new health issues. [facility] Medical History Tobacco dependence syndrome Rectal hemorrhage Prostatism Palpitations Nausea Leg edema, left Hyperglycemia Homeless History of COVID-19 Heartburn Essential hypertension Depressive disorder Chronic pain of left knee Chronic lower back pain Chest pain Asthma Amnesia Surgical History History of surgery on lower extremity History of surgery on arm Family History Mother Heart disease Diabetes Dementia Brainstem hemorrhage Father No problems noted. Social History Alcohol intake: never Patient Tobacco Use Status: Never used Tobacco Physical Exam On exam he is nontoxic Sclera are anicteric He is in no acute respiratory distress Abdomen is obese with an umbilical hernia that is reducible in a minimally tender. No trophic changes to the skin are present. Results Reviewed Results Reviewed: Labs 07/31/22 Positive nicotine test Hemoglobin A1c 6.1 Hemoglobin 14.9 with normal indices; white blood cell count normal at 8.1, platelet count 315k BUN 13, creatinine 0.91 LFTs show elevated ALT consistent with NAFLD; remaining LFTs are normal Labs dated 05/04/2022 Urine tox screen was negative for drugs of abuse, but positive for nicotine Hemoglobin 15.7, white blood cell count 8.1, platelet count 293 K BUN 15, creatinine 1.19 Hemoglobin A1c 6.5 c/w new Dx of DM2 Transaminases show AST elevation at 57 otherwise, LFTs within normal parameters CT dated 05/14/22 shows the fat filled umbilical hernia 1.88cm defect and an fatty liver Assessment & Plan Assessment & Plan (1) Umbilical hernia: Code(s): K42.9 - Umbilical hernia without obstruction or gangrene (2) BRONSON (obstructive sleep apnea): Code(s): G47.33 - Obstructive sleep apnea (adult) (pediatric) (3) Morbid (severe) obesity due to excess calories: Code(s): E66.01 - Morbid (severe) obesity due to excess calories (4) DMII (diabetes mellitus, type 2): Code(s): E11.9 - Type 2 diabetes mellitus without complications (5) Substance abuse: Code(s): F19.10 - Other psychoactive substance abuse, uncomplicated (6) Tobacco dependence syndrome: Code(s): F17.200 - Nicotine dependence, unspecified, uncomplicated (7) Snoring: Code(s): R06.83 - Snoring Plan The patient denies any significant symptoms from his hernia on today's visit and notes that he would like to focus on his depression and medications. He also believes that he can continue to lose weight. He requested a follow-up in 4 months and will contact me before then if he changes his mind. Signs and symptoms of incarceration, strangulation obstruction or reviewed and apparently understood. Coding Level of Care Code Est Pt Level 4 (28554) Diagnoses Umbilical hernia K42.9 BRONSON (obstructive sleep apnea) G47.33 Morbid (severe) obesity due to excess calories E66.01 DMII (diabetes mellitus, type 2) E11.9 Substance abuse F19.10 Tobacco dependence syndrome F17.200 Snoring R06.83
[2022-12-04 14:27] VITALS: BP 107/67; PULSE 94; TEMP 35.9; O2SAT 96; BMI 47.2
== END 2022-12-04 14:44 | disposition home or self-care (01) ==
PROVIDERS: PCP Internal Medicine Geriatric Medicine; Visit Provider Surgery
DX: K42.9 Umbilical hernia without obstruction or gangrene (principal); G47.33 Obstructive sleep apnea (adult) (pediatric); E66.01 Morbid (severe) obesity due to excess calories; E11.9 Type 2 diabetes mellitus without complications; F19.10 Other psychoactive substance abuse, uncomplicated; F17.200 Nicotine dependence, unspecified, uncomplicated; R06.83 Snoring
CPT/HCPCS: 99214

== ENCOUNTER → 2022-12-04 13:29 | Outpatient (BNVA) | payer MEDICARE, SELFPAY | PROVIDERS: PCP Internal Medicine Geriatric Medicine; Visit Provider Surgery | DX: K42.9 Umbilical hernia without obstruction or gangrene (principal); G47.33 Obstructive sleep apnea (adult) (pediatric); E66.01 Morbid (severe) obesity due to excess calories; E11.9 Type 2 diabetes mellitus without complications; F19.10 Other psychoactive substance abuse, uncomplicated; R06.83 Snoring; Z68.42 Body mass index [BMI] 45.0-49.9, adult | CPT/HCPCS: 99212 ==

== ENCOUNTER 2022-12-21 16:09 | Outpatient (REF) | payer MEDICARE, SELFPAY ==
[2022-12-21 17:29] LABS: MANUAL DIFF FLAG NO
[2022-12-21 17:40] LABS: Basophils Percent Auto 0.4 % (0-2); Eosinophils Absolute Auto 0.2 X10*3/uL (0.0-0.4); Eosinophils Percent Auto 1.8 % (0-4); Hematocrit 51.3 % (42.0-52.0); Hemoglobin 16.2 g/dl (14.0-18.0); Imm Gran Abs Auto 0.03 X10*3/uL (0.00-0.03); Imm Gran Pct Auto 0.4 % (0.0-0.4); Lymphocytes Absolute Auto 2.5 X10*3/uL (1.2-4.9); Lymphocytes Percent Auto 29.8 % (20-40); Mean Corpuscular HGB Conc 31.6 g/dl (31.0-36.0); Mean Corpuscular Hemoglobin 27.9 pg (27.0-33.0); Mean Corpuscular Volume 88.3 fL (80.0-98.0); Monocytes Absolute Auto 0.5 X10*3/uL (0.1-1.2); Monocytes Percent Auto 5.9 % (2-11); Neutrophils Absolute Auto 5.3 x10*3/uL (2.0-8.3); Neutrophils Percent Auto 61.7 % (45-73); Platelet Count 339 X10*3/uL (160-400); Red Blood Count 5.81 X10*6/uL (4.60-5.80); Red Cell Distribution Width 13.6 % (11.0-16.0); White Blood Count 8.5 X10*3/uL (4.8-10.8)
[2022-12-21 17:44] LABS: Estimated Average Glucose 128 mg/dL; Hemoglobin A1c % 6.1 % (<6.0)
[2022-12-21 17:47] LABS: Anion Gap 12 (12-20); Blood Urea Nitrogen 12 mg/dL (9-16); Calcium 9.8 mg/dL (8.4-10.2); Carbon Dioxide 30 mmol/L (22-29); Chloride 102 mmol/L (96-108); Estimated Glomerular Filt Rate > 60; Glucose Random 94 mg/dL (60-115); Potassium 3.9 mmol/L (3.3-5.1); Sodium 140 mmol/L (135-145)
== END 2022-12-21 16:10 | disposition home or self-care (01) ==
LOC: HO.HHCL 16:09
PROVIDERS: Visit Provider Internal Medicine Geriatric Medicine
DX: R51.9 Headache, unspecified (principal); E11.65 Type 2 diabetes mellitus with hyperglycemia
CPT/HCPCS: 36415; 80048; 83036; 85025

== ENCOUNTER 2023-02-10 13:40 | Outpatient (AMB) | payer MEDICARE, SELFPAY ==
--- NOTE | 2023-02-10 13:44 | MHC.OFFVIS ---
Intake Vital Signs 02/10/23 13:52 Height 5 ft 7 in Weight 307 lb BMI 48.1 BP 137/84 Blood Pressure Location Rt brachial Position Sitting Pulse 87 Intake Visit Reasons: Umbilical hernia, 2nd opinion Intake Note: Patient here to discuss umbilical hernia. Most recent CT Abd/ pelvis on 05-14-22. Requesting 2nd opinion. States hernia is enlarging and becoming bothersome. Was seen by Dr. Fernandez on 12-04-22. Patient c/o: Pain, stings sensation that spreads down to Rt leg. Internal Audit Manager Required: No Accompanied by: Self / Same As Patient Allergies aspirin [ASPIRIN] Allergy (Unknown, Verified 02/10/23 13:49) SWELLING, NAUSEA, VOMITING HPI HPI Comments History of Present Illness Details Patient is a pleasant 52-year-old male with longstanding history of an umbilical hernia. His increasing size, become more symptomatic. Was seen by another surgeon to do this he treated conservatively. Because of progressive symptoms he presents here further evaluation. Otherwise tolerating his diet. Having regular bowel habits. Patient does do strenuous activities on occasion. Chart was reviewed patient evaluated. [facility] Medical History Tobacco dependence syndrome Rectal hemorrhage Prostatism Palpitations Nausea Leg edema, left Hyperglycemia Homeless History of COVID-19 Heartburn Essential hypertension Depressive disorder Chronic pain of left knee Chronic lower back pain Chest pain Asthma Amnesia Surgical History History of surgery on lower extremity History of surgery on arm Family History Mother Heart disease Diabetes Dementia Brainstem hemorrhage Father No problems noted. Social History (Updated 02/10/23 @ 13:51 by JOANIE Hanley) Alcohol intake: never Patient Tobacco Use Status: Former Tobacco user Quit Date: 2019 Physical Exam Vital Signs: Last Vital Signs Pulse 87 02/10/23 13:52 BP 137/84 02/10/23 13:52 BMI result Body Mass Index 48.1 Chest Other: Chest breath sounds bilaterally, HS 1 in 2 GI Other: Patient was examined supine, and abdomen is markedly corpulent. Bilateral groin exam negative. Genitalia within normal limits. Reducible approximately 2 cm umbilical hernia. Assessment & Plan Assessment & Plan (1) Umbilical hernia: Code(s): K42.9 - Umbilical hernia without obstruction or gangrene Plan Risks, benefits, alternatives of open umbilical hernia repair with mesh reviewed the patient included but not limited to bleeding, infection, recurrence, numbness, pain, scarring the patient was to proceed. All questions answered. Arrangements will be made for this. Coding Level of Care Code New Pt Level 5 (79805) Diagnoses Umbilical hernia K42.9
[2023-02-10 13:52] VITALS: BP 137/84; PULSE 87; BMI 48.1
== END 2023-02-10 13:59 | disposition home or self-care (01) ==
PROVIDERS: PCP Internal Medicine Geriatric Medicine; Visit Provider Surgery
DX: K42.9 Umbilical hernia without obstruction or gangrene (principal)
CPT/HCPCS: 99204

== ENCOUNTER → 2023-02-10 13:40 | Outpatient (BNVA) | payer MEDICARE, SELFPAY | PROVIDERS: PCP Internal Medicine Geriatric Medicine; Visit Provider Surgery | DX: K42.9 Umbilical hernia without obstruction or gangrene (principal) | CPT/HCPCS: 99202 ==

== ENCOUNTER 2023-03-05 10:34 | Outpatient (REF) | payer MEDICARE, SELFPAY ==
--- NOTE | ~2023-03-05 | CT_ITS ---
EXAMINATION: CT HEAD WITHOUT CONTRAST CLINICAL INFORMATION: Headaches. COMPARISON: Head CT dated 07/23/2019. TECHNIQUE: Contiguous axial imaging was performed from the skullbase to vertex without intravenous administration of contrast. This CT examination was performed using dose optimization techniques as appropriate, variously including the following: *Automated exposure control *Adjustment of mA and/or kV according to patient size (this includes techniques or standardized protocols for targeted exams where dose is matched to indication/reason for exam; i.e. extremities or head) *Use of iterative reconstruction technique DLP: 1004 mGy-cm. FINDINGS: There is no evidence of acute intracranial hemorrhage or territorial infarction. No abnormal mass effect or midline shift is seen. Wallace to white matter differentiation is well preserved. No extra-axial fluid collections are identified. The ventricles are normal in size. There is no abnormal attenuation within the brain parenchyma. The osseous structures and soft tissues are normal. The mastoid air cells and visualized portions of the paranasal sinuses are well aerated. CT/CT head/brain wo IV con IMPRESSION: No acute intracranial pathology.
== END 2023-03-05 10:35 | disposition home or self-care (01) ==
LOC: HO.CT 10:34
PROVIDERS: PCP Internal Medicine Geriatric Medicine; Visit Provider Internal Medicine Geriatric Medicine
DX: R51.9 Headache, unspecified (principal)
CPT/HCPCS: 70450

== ENCOUNTER 2023-04-01 07:28 | Day surgery (SDC) | payer MEDICARE, SELFPAY ==
[2023-03-30 07:24] VITALS: BMI 48.1
--- NOTE | 2023-03-31 08:36 | HO.ANESPROP2 ---
Documented by User: Sanjuana Reyes NP 03/31/23 08:37 HPI - Anesthesia Eval Consult details Narrative: 52yo M for OPEN Hernia Repair Umbilical with mesh Suboxone daily PMFSH Active Problems Active Problems: All Active Problems (Updated 02/10/23 @ 14:00 by David Villagomez MD) Tobacco dependence syndrome (Acute) DMII (diabetes mellitus, type 2) (Acute) Substance abuse (Acute) BRONSON (obstructive sleep apnea) (Acute) Snoring (Acute) Morbid (severe) obesity due to excess calories (Acute) Umbilical hernia (Acute) Past Medical History Medical History Tobacco dependence syndrome Rectal hemorrhage Prostatism Palpitations Nausea Leg edema, left Hyperglycemia Homeless History of COVID-19 Heartburn Essential hypertension Depressive disorder Chronic pain of left knee Chronic lower back pain Chest pain Asthma Amnesia Family History Family History Mother Heart disease Diabetes Dementia Brainstem hemorrhage Father No problems noted. Surgical History Surgical History History of surgery on lower extremity History of surgery on arm Social History Social History (Updated 02/10/23 @ 13:51 by JOANIE Hanley) Alcohol intake: never Patient Tobacco Use Status: Former Tobacco user Quit Date: 2 months Use of substances other than those prescribed or required for medical reasons: No Are you DNR?: No Advance Directives: No Advance Directives Information Provided: Yes Meds Allergies Allergy/AdvReac Type Severity Reaction Status Date / Time aspirin [ASPIRIN] Allergy Unknown SWELLING, Verified 02/10/23 13:49 NAUSEA, VOMITING Home Medications Medication Instructions Recorded Confirmed Last Taken Type acetaminophen 650 mg 650 mg PO Q6H PRN fever 04/24/22 04/01/23 Unknown History tablet,extended release (Arthritis Pain Relief (acetaminophen) ER) buprenorphine 4 mg-naloxone 1 mg 7 mg sublingual DAILY 04/24/22 04/01/23 04/01/23 History sublingual film buprenorphine 8 mg-naloxone 2 mg 20 mg sublingual DAILY 04/24/22 04/01/23 04/01/23 History sublingual film celecoxib 200 mg capsule 200 mg PO DAILY PRN Pain 04/24/22 04/01/23 Unknown History fluticasone propionate 50 2 spray intranasal DAILY 04/24/22 04/01/23 Unknown History mcg/actuation nasal spray,suspension folic acid 1 mg tablet 1 mg PO DAILY 04/24/22 04/01/23 Unknown History furosemide 20 mg tablet 20 mg PO DAILY 04/24/22 04/01/23 Unknown History lidocaine 5 % topical patch 1 patch topical DAILY 04/24/22 04/01/23 Unknown History lisinopril 20 mg tablet 20 mg PO DAILY 04/24/22 04/01/23 Unknown History loratadine 10 mg tablet (Allergy 10 mg PO DAILY 04/24/22 04/01/23 Unknown History Relief (loratadine)) omeprazole 20 mg capsule,delayed 20 mg PO DAILY 04/24/22 04/01/23 Unknown History release trazodone 50 mg tablet 100 mg PO BEDTIME PRN Insomnia 04/24/22 04/01/23 Unknown History fluoxetine 40 mg capsule 40 mg PO DAILY 10/16/22 04/01/23 Unknown History [place] 1 tab PO DAILY 04/01/23 Unknown History sea le[place] 1 tab PO DAILY 04/01/23 04/01/23 History Exam Height,Weight and Vital Signs: Height 5 ft 7 in Weight 139.253 kg Pertinent Lab Results Pertinent Lab Results: Laboratory Tests 12/21/22 16:10 WBC 8.5 Hgb 16.2 Hct 51.3 Plt Count 339 Sodium 140 Potassium 3.9 Chloride 102 Carbon Dioxide 30 H BUN 12 Creatinine 0.96 Assessment and Plan Assessment Anesthesia Assessment: Chart Reviewed Documented by User: Sergo Chambers MD 04/01/23 10:48 PMFSH Past Medical History Medical History Tobacco dependence syndrome Rectal hemorrhage Prostatism Palpitations Nausea Leg edema, left Hyperglycemia Homeless History of COVID-19 Heartburn Essential hypertension Depressive disorder Chronic pain of left knee Chronic lower back pain Chest pain Asthma Amnesia Family History Family History Mother Heart disease Diabetes Dementia Brainstem hemorrhage Father No problems noted. Family history of problems with anesthesia: No Surgical History Surgical History History of surgery on lower extremity History of surgery on arm History of Problems with Anesthesia: No Social History Social History (Updated 02/10/23 @ 13:51 by JOANIE Hanley) Alcohol intake: never Patient Tobacco Use Status: Former Tobacco user Quit Date: 2 months Use of substances other than those prescribed or required for medical reasons: No Are you DNR?: No Advance Directives: No Advance Directives Information Provided: Yes Meds Allergies Allergy/AdvReac Type Severity Reaction Status Date / Time aspirin [ASPIRIN] Allergy Unknown SWELLING, Verified 02/10/23 13:49 NAUSEA, VOMITING Home Medications Medication Instructions Recorded Confirmed Last Taken Type acetaminophen 650 mg 650 mg PO Q6H PRN fever 04/24/22 04/01/23 Unknown History tablet,extended release (Arthritis Pain Relief (acetaminophen) ER) buprenorphine 4 mg-naloxone 1 mg 7 mg sublingual DAILY 04/24/22 04/01/23 04/01/23 History sublingual film buprenorphine 8 mg-naloxone 2 mg 20 mg sublingual DAILY 04/24/22 04/01/23 04/01/23 History sublingual film celecoxib 200 mg capsule 200 mg PO DAILY PRN Pain 04/24/22 04/01/23 Unknown History fluticasone propionate 50 2 spray intranasal DAILY 04/24/22 04/01/23 Unknown History mcg/actuation nasal spray,suspension folic acid 1 mg tablet 1 mg PO DAILY 04/24/22 04/01/23 Unknown History furosemide 20 mg tablet 20 mg PO DAILY 04/24/22 04/01/23 Unknown History lidocaine 5 % topical patch 1 patch topical DAILY 04/24/22 04/01/23 Unknown History lisinopril 20 mg tablet 20 mg PO DAILY 04/24/22 04/01/23 Unknown History loratadine 10 mg tablet (Allergy 10 mg PO DAILY 04/24/22 04/01/23 Unknown History Relief (loratadine)) omeprazole 20 mg capsule,delayed 20 mg PO DAILY 04/24/22 04/01/23 Unknown History release trazodone 50 mg tablet 100 mg PO BEDTIME PRN Insomnia 04/24/22 04/01/23 Unknown History fluoxetine 40 mg capsule 40 mg PO DAILY 10/16/22 04/01/23 Unknown History [place] 1 tab PO DAILY 04/01/23 Unknown History kayleen leach 1 tab PO DAILY 04/01/23 04/01/23 History Exam Airway Mallampati Class: II TM Dist: <=3cm Neck ROM: Full Partial: Upper Loose/Missing/Broken Teeth: Yes and Upper Heart: ok Lungs: ok Other: falling asleep in SSS. Assessment and Plan Assessment Anesthesia Assessment: Anesthesia Plan Discussed Final Anesthetic Review Family History of Problems with Anesthesia: No History of Problems with Anesthesia: No NPO: Yes ASA Class: III Final Preanesthetic Review: No Changes in Pt Med Stat, Meds/Allgs Chart Reviewed, Consent Obtained/Reviewed and Anes Risks/Benef Reviewed Patient Risk: High Procedure Risk: Low Anesthetic Plan Anesthetic Plan: GA and Agree w/ Assess. and Plan Disposition: Standard PACU
--- NOTE | 2023-03-31 12:56 | MHC.SHP ---
Pre-Procedural Eval Section A - 24 Hr Update-Section A only Date of Service: 03/31/23 The patient is an INPATIENT: No Changes since office visit: No Cold of Flu in the past 2 weeks, No New Medical Problems, No Changes in Medication and No Patient answered all questions The patient has been examined within 24 hours of the surgical procedure. The History & Physical has been completed within 30 days and I have reviewed it.: Yes Section B - Complete if H&P > 30 days Chief Complaint: Umbilical hernia without obstruction or gangrene Allergies: Allergies Allergy/AdvReac Type Severity Reaction Status Date / Time aspirin [ASPIRIN] Allergy Unknown SWELLING, Verified 02/10/23 13:49 NAUSEA, VOMITING Plan I have reviewed the history and physical and performed a pertinent physical examination on my patient. No changes have occurred unless specified. Time Spent With Patient Time: Total time managing care of this patient today ____ minutes.
[2023-04-01] VITALS (7 sets, daily range): BP systolic 108–144; BP diastolic 64–95; PULSE 82–100; RESP 12–20; TEMP 36.1–36.2; O2SAT 93–97; BMI 48.4; BMI 47.0
[2023-04-01 08:10] LABS: Glucose, Whole Blood 133 mg/dL (60-115)
[2023-04-01] MEDS: Lactated Ringers 1,000 ML 100 ML IVCONT (08:42)
[2023-04-01] MEDS: Albuterol Sulfate (0.083%) 2.5 MG/3 ML VIAL.NEB INHALE (08:51)
--- NOTE | 2023-04-01 11:03 | P.OP_ITS ---
Operative Note Operative Note Date of Service: 04/01/23 Narrative: Preoperative diagnosis: [] Incarcerated umbilical hernia approximately 3 cm in size with omental contents Postop diagnosis: [] The same Procedure [] open umbilical incarcerated herniorrhaphy with Bard mesh Surgeon: [] Hernando Forging Die Finisher: [] Maribel Type of Anesthesia: [] LMA Indication for surgery: [] Findings as noted above Findings: [] Patient brought to the operating room, placed on operative table in supine position, after an adequate level of LMA anesthesia was induced, the patient's abdomen which was markedly corpulent was prepped and draped in usual sterile fashion. Using a supraumbilical curvilinear incision, this carried down through skin, subcutaneous tissue, were large hernia sac with incarcerated omental contents was identified, dissected off the back of the umbilicus down to the fascia and opened. Incarcerated omentum and sac were amputated using Bovie. Fascia margins were circumferentially cleared. A Bard mesh was placed in this defect, and the superficial layer of the mesh was circumferentially sutured to the surrounding fascia using interrupted 0 Ethibond suture. At completion of procedure, mesh was then very good position with no tension or gallops. Wound was irrigated, secured hemostasis. It Was closed in the following manner; posterior aspect of the umbilicus was tacked to the wound floor using interrupted 3-0 Vicryl sutures. Skin was closed using interrupted inverted dermal 3-0 Vicryl sutures followed by Steri-Strips and sterile dressings. At the beginning and at the end of the case, wound was infiltrated 0.5% Marcaine/1% lidocaine. Sponge, needle, and instrument counts reported correct. Patient tolerated the procedure well and emerged from anesthesia stable condition. EBL minimal
== END 2023-04-01 12:16 | disposition home or self-care (01) ==
PROVIDERS: PCP Internal Medicine Geriatric Medicine; Visit Provider Surgery
PROC: (CPT 49594; principal; 2023-04-01 09:40)
DX: K42.0 Umbilical hernia with obstruction, without gangrene (principal); I10 Essential (primary) hypertension; K62.5 Hemorrhage of anus and rectum; J45.909 Unspecified asthma, uncomplicated; F32.A Depression, unspecified; G89.29 Other chronic pain; M54.50 Low back pain, unspecified; M25.562 Pain in left knee; R73.9 Hyperglycemia, unspecified; F11.20 Opioid dependence, uncomplicated; E66.01 Morbid (severe) obesity due to excess calories; Z68.42 Body mass index [BMI] 45.0-49.9, adult; G47.33 Obstructive sleep apnea (adult) (pediatric); Z79.51 Long term (current) use of inhaled steroids; Z79.899 Other long term (current) drug therapy; Z88.8 Allergy status to other drugs, medicaments and biological substances; Z87.891 Personal history of nicotine dependence; Z86.16 Personal history of COVID-19; Z98.890 Other specified postprocedural states
CPT/HCPCS: 49594; 82947; 88302; 88304; 94640; C1781; J0690; J2704; J2795; J3010

== ENCOUNTER → 2023-04-01 07:28 | Outpatient (BNV) | payer MEDICARE, SELFPAY | PROVIDERS: PCP Internal Medicine Geriatric Medicine; Visit Provider Surgery | DX: K80.50 Calculus of bile duct without cholangitis or cholecystitis without obstruction (principal) | CPT/HCPCS: 47562 ==

== ENCOUNTER 2023-04-12 12:49 | Outpatient (AMB) | payer MEDICARE, SELFPAY ==
[2023-04-12 12:55] VITALS: BP 118/69; PULSE 92
--- NOTE | 2023-04-12 12:55 | A.OFFVIS_ITS ---
Intake Vital Signs 04/12/23 12:55 Weight 308 lb BP 118/69 Blood Pressure Location Rt brachial Position Sitting Pulse 92 Intake Visit Reasons: S/P open umbilical hernia w/mesh Intake Note: Patient here s/p open umbilical hernia w/mesh on 04-01-23. Reports incisions healing well. Patient c/o: tenderness. No longer taking rx pain meds. 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 DOING QUITE WELL. TOLERATING DIET. HAVING REGULAR BOWEL HABITS. INCREASING ACTIVITY LEVEL. MINIMAL INCISIONAL DISCOMFORT. FOR[facility]LY [facility] Medical History Tobacco dependence syndrome Rectal hemorrhage Prostatism Palpitations Nausea Leg edema, left Hyperglycemia Homeless History of COVID-19 Heartburn Essential hypertension Depressive disorder Chronic pain of left knee Chronic lower back pain Chest pain Asthma Amnesia Surgical History Umbilical hernia (04/01/23) History of surgery on lower extremity History of surgery on arm Family History Mother Heart disease Diabetes Dementia Brainstem hemorrhage Father No problems noted. Social History Alcohol intake: never Comment: counts correct Patient Tobacco Use Status: Former Tobacco user Quit Date: 2 months Physical Exam Vital Signs: Last Vital Signs Pulse 92 04/12/23 12:55 BP 118/69 04/12/23 12:55 GI Other: ABDOMEN SOFT. WOUND CLEAN DRY AND INTACT HEALING WELL Assessment & Plan Assessment & Plan (1) Status post umbilical hernia repair, follow-up exam: Code(s): Z09 - Encounter for follow-up examination after completed treatment for conditions other than malignant neoplasm Plan Patient has been given local wound instructions, and will follow-up p.r.n.. He should avoid strenuous activities next few weeks time. All questions answered Coding Level of Care Code Global (83044) Diagnoses Status post umbilical hernia repair, follow-up exam Z09
== END 2023-04-12 13:27 | disposition home or self-care (01) ==
PROVIDERS: PCP Internal Medicine Geriatric Medicine; Visit Provider Surgery
DX: Z09 Encounter for follow-up examination after completed treatment for conditions other than malignant neoplasm (principal)
CPT/HCPCS: 99024

== ENCOUNTER → 2023-04-12 12:49 | Outpatient (BNVA) | payer MEDICARE, SELFPAY | PROVIDERS: PCP Internal Medicine Geriatric Medicine; Visit Provider Surgery | DX: Z09 Encounter for follow-up examination after completed treatment for conditions other than malignant neoplasm (principal); Z87.19 Personal history of other diseases of the digestive system | CPT/HCPCS: 99212 ==

== ENCOUNTER 2023-05-18 14:48 | Outpatient (AMB) | payer MEDICARE, SELFPAY ==
--- NOTE | 2023-05-18 14:49 | MHC.OFFVIS ---
Intake Vital Signs 05/18/23 14:58 Weight 308 lb BP 133/75 Blood Pressure Location Rt brachial Position Sitting Pulse 106 H Intake Visit Reasons: Possible umbilical hernia Intake Note: Patient referred for possible umbilical hernia. Patient c/o: abd pain that comes and goes. Pain worse at night. Patient had umbilical hernia repair on 04-01-23. CT abd/pelvis: 05-14-22. Swimming Professor Required: No Accompanied by: Self / Same As Patient Allergies aspirin [ASPIRIN] Allergy (Unknown, Verified 05/18/23 14:55) SWELLING, NAUSEA, VOMITING HPI HPI Comments History of Present Illness Details Patient is status post umbilical hernia repair. He presents here because he has some suprapubic discomfort. He is unsure if this is related to his hernia. He is otherwise doing well. He has tolerating a diet. Having regular bowel habits. He is increasing his activity level uneventfully. FORMERLY [facility] Medical History Tobacco dependence syndrome Rectal hemorrhage Prostatism Palpitations Nausea Leg edema, left Hyperglycemia Homeless History of COVID-19 Heartburn Essential hypertension Depressive disorder Chronic pain of left knee Chronic lower back pain Chest pain Asthma Amnesia Surgical History Umbilical hernia (04/01/23) History of surgery on lower extremity History of surgery on arm Family History Mother Heart disease Diabetes Dementia Brainstem hemorrhage Father No problems noted. Social History Alcohol intake: never Comment: counts correct Patient Tobacco Use Status: Former Tobacco user Quit Date: 2 months Physical Exam Vital Signs: Last Vital Signs Pulse 106 H 05/18/23 14:58 BP 133/75 05/18/23 14:58 GI Other: Very corpulent abdomen. Umbilical wound well healed with no evidence of any recurrence or infection. Suprapubic area demonstrates no obvious mass, or pathology. Assessment & Plan Assessment & Plan (1) Status post umbilical hernia repair, follow-up exam: Code(s): Z09 - Encounter for follow-up examination after completed treatment for conditions other than malignant neoplasm Plan At present, we will continue conservative therapy. No obvious abdominal wall pathology. No evidence of any lipoma or soft tissue masses were. Should his symptoms progress or worsen, he has been instructed to contact me or will otherwise follow-up p.r.n... All questions answered. Coding Level of Care Code Global (46212) Diagnoses Status post umbilical hernia repair, follow-up exam Z09
[2023-05-18 14:58] VITALS: BP 133/75; PULSE 106
== END 2023-05-18 15:06 | disposition home or self-care (01) ==
PROVIDERS: PCP Internal Medicine Geriatric Medicine; Visit Provider Surgery
DX: Z09 Encounter for follow-up examination after completed treatment for conditions other than malignant neoplasm (principal)
CPT/HCPCS: 99024

== ENCOUNTER → 2023-05-18 14:48 | Outpatient (BNVA) | payer MEDICARE, SELFPAY | PROVIDERS: PCP Internal Medicine Geriatric Medicine; Visit Provider Surgery | DX: Z09 Encounter for follow-up examination after completed treatment for conditions other than malignant neoplasm (principal); R10.9 Unspecified abdominal pain | CPT/HCPCS: 99212 ==

== ENCOUNTER 2023-05-19 11:59 | Outpatient (REF) | payer MEDICARE, SELFPAY ==
[2023-05-19 13:41] LABS: MANUAL DIFF FLAG NO
[2023-05-19 14:00] LABS: Basophils Percent Auto 0.4 % (0-2); Eosinophils Absolute Auto 0.2 X10*3/uL (0.0-0.4); Hematocrit 50.9 % (42.0-52.0); Hemoglobin 16.2 g/dl (14.0-18.0); Imm Gran Abs Auto 0.02 X10*3/uL (0.00-0.03); Imm Gran Pct Auto 0.3 % (0.0-0.4); Lymphocytes Absolute Auto 2.3 X10*3/uL (1.2-4.9); Lymphocytes Percent Auto 31.8 % (20-40); Mean Corpuscular HGB Conc 31.8 g/dl (31.0-36.0); Mean Corpuscular Hemoglobin 27.5 pg (27.0-33.0); Mean Corpuscular Volume 86.4 fL (80.0-98.0); Mean Platelet Volume 8.9 fL (9.4-12.4); Monocytes Absolute Auto 0.4 X10*3/uL (0.1-1.2); Monocytes Percent Auto 5.7 % (2-11); Neutrophils Absolute Auto 4.4 x10*3/uL (2.0-8.3); Neutrophils Percent Auto 59.8 % (45-73); Platelet Count 288 X10*3/uL (160-400); Red Blood Count 5.89 X10*6/uL (4.60-5.80); Red Cell Distribution Width 13.4 % (11.0-16.0); White Blood Count 7.4 X10*3/uL (4.8-10.8)
[2023-05-19 14:33] LABS: Alanine Aminotransferase 45 U/L (0-40); Albumin Level 4.3 g/dL (3.5-5.0); Alkaline Phosphatase 110 U/L (39-117); Anion Gap 14 (12-20); Aspartate Amino Transferase 23 U/L (5-37); Bilirubin Total 0.5 mg/dL (0.0-1.0); Blood Urea Nitrogen 14 mg/dL (9-16); Calcium 9.6 mg/dL (8.4-10.2); Carbon Dioxide 26 mmol/L (22-29); Chloride 104 mmol/L (96-108); Cholesterol 217 mg/dL (<200); Estimated Glomerular Filt Rate > 60; Glucose Random 116 mg/dL (60-115); HDL Cholesterol 28 mg/dL (>40); LDL Cholesterol Calculated 114 mg/dL (<100); Potassium 4.5 mmol/L (3.3-5.1); Sodium 139 mmol/L (135-145); Triglycerides 379 mg/dL (<150)
[2023-05-19 14:52] LABS: Creatinine Urine 348.84 mg/dL; Microalbum/Creatinine Ratio Ur 15.7 ug/mg cr (<30)
== END 2023-05-19 12:00 | disposition home or self-care (01) ==
LOC: HO.HHCL 11:59
PROVIDERS: Visit Provider Internal Medicine Geriatric Medicine
DX: E11.65 Type 2 diabetes mellitus with hyperglycemia (principal); I10 Essential (primary) hypertension
CPT/HCPCS: 36415; 80053; 80061; 82043; 82570; 85025

== ENCOUNTER 2023-07-11 12:09 | Inpatient (IN) | payer MEDICARE, MEDICAID, SELFPAY ==
[2023-07-11] VITALS (7 sets, daily range): BP systolic 103–157; BP diastolic 47–94; PULSE 91–104; RESP 18–24; TEMP 36.6–37.6; O2SAT 93–96; BMI 50.2
--- NOTE | ~2023-07-11 | CT_ITS ---
EXAMINATION: CT HEAD WITHOUT CONTRAST CLINICAL INFORMATION: Trauma. Fall. COMPARISON: Previous head CT most recent February 2023 TECHNIQUE: Contiguous axial imaging was performed from the skull base to vertex without intravenous administration of contrast. This CT examination was performed using dose optimization techniques as appropriate, variously including the following: *Automated exposure control *Adjustment of mA and/or kV according to patient size (this includes techniques or standardized protocols for targeted exams where dose is matched to indication/reason for exam; i.e. extremities or head) *Use of iterative reconstruction technique DLP: 826 mGy-cm FINDINGS: There is no evidence for an extra-axial collection. There is no evidence for intra-or extra-axial hemorrhage. The ventricles and extra-axial CSF spaces are appropriate. Wallace-white matter differentiation is normal. No mass, mass effect or infarct is seen. No skull fracture. Visualized paranasal sinuses, mastoid air cells and middle ears are clear. There is poor dentition. CT/CT head/brain wo IV con IMPRESSION: No acute findings.
--- NOTE | ~2023-07-11 | NM_ITS ---
Indication: Rule out PE EXAMINATION: Ventilation/perfusion lung study. Comparison chest x-ray same day 4 mCi technetium MAA. Images obtained in various obliquities of the lung corrales. Mildly heterogeneous perfusion. There is a segmental defect in the upper lung on the right posteriorly. Otherwise heterogeneous appearance NM/NM pul perfusion IMPRESSION: Overall Heterogeneous perfusion with a single segmental defect right upper lung posterior. Therefore this is a nondiagnostic exam for pulmonary embolism Electronically signed by: Matty Gillette MD 10/10/2023 06:23 PM EDT
--- NOTE | ~2023-07-11 | US_ITS ---
EXAMINATION: US VENOUS WITH DOPPLER UPPER EXTREMITY, RIGHT CLINICAL INFORMATION: Right arm pain and edema with history of trauma COMPARISON: None available. TECHNIQUE: Ultrasound of the upper extremity is performed using compression sonography and color and pulse Doppler flow with assessment of augmentation of flow. There is also imaging and Doppler assessment of the jugular and subclavian veins. Spectral analysis with color-flow imaging is performed. FINDINGS: Thrombus is present in the right proximal and distal basilic vein. The deep venous system shows no evidence of DVT. Respiratory variation, normal compression, and augmented flow are noted throughout the remainder of the upper extremity including the axillary, brachial, cubital, and radial and ulnar veins. There is normal flow in the internal jugular and subclavian veins. US/US venous duplex UE RT IMPRESSION: 1. No DVT demonstrated in the right upper extremity. 2. There is superficial thrombophlebitis with thrombus present throughout the right basilic vein.
--- NOTE | ~2023-07-11 | XR_ITS ---
EXAMINATION: XR SHOULDER, RIGHT CLINICAL INFORMATION: Fall COMPARISON: None available. TECHNIQUE: Two views of the right shoulder. FINDINGS: Bone alignment is normal. No fracture or dislocation. Normal glenohumeral joint. Arthritis at the acromioclavicular joint. Soft tissues are unremarkable. There is subsegmental atelectasis in the right upper lung. XR/XR shoulder RT min 2V IMPRESSION: No fracture or dislocation.
--- NOTE | ~2023-07-11 | IR_ITS ---
CLINICAL HISTORY: End-stage renal disease. The patient presents to interventional radiology for placement of a tunneled central venous catheter for hemodialysis. PROCEDURES: 1. Real-time ultrasound-guided access into the right internal jugular vein after documentation of selected vessel patency, and permanent imaging storing in the patient record. 2. Placement of a 14.5 fr 27 cm tunneled, dual-lumen hemodialysis catheter. Clinician: Valeriy Fulton PA-C MEDICATIONS: -Fentanyl 75 mcg, Lidocaine 1% 10 mL SQ. -Antibiotics: Ancef -For additional details, please see nursing flowsheet. COMPLICATIONS: None. ESTIMATED BLOOD LOSS: <5 ml SPECIMENS: None FLUOROSCOPY TIME: 1.6 min PROCEDURE NOTE: The procedure, risks, benefits, and alternatives were carefully explained to patient, and written informed consent was obtained. The patient was placed supine on the fluoroscopy table. A timeout was performed. The right neck and chest was prepped and draped in usual sterile fashion. Local anesthesia was administered to the access site with lidocaine. Under ultrasound guidance, the right internal jugular vein was accessed with a 5 Fr micropuncture set. A 0.035 in wire was advanced to the IVC to maintain access during the tunneling process. Next, subcutaneous lidocaine was administered to the chest. Using blunt dissection, a subcutaneous tunnel was created that connects from the upper chest to the venotomy site. The dialysis catheter was pulled through the tunnel. The tract in the vein was dilated and a peel-away sheath was advanced over the wire. The catheter was advanced through the sheath, which was subsequently peeled away. The catheter was tested, flushed, and sutured to the skin with its tip in the high right atrium. A permanent fluoroscopic image of the chest was saved to PACS. The catheter ports were packed with heparin per routine protocol. The right neck non-tunneled dialysis catheter was then removed. Pressure was held until hemostasis was assured. A dry dressing was applied to the venotomy site. The patient was stable after the procedure and was transferred to the post anesthesia care unit. This procedure was performed under moderate sedation with a dedicated nurse and continuous monitoring of vital signs. FINDINGS: 1. Patent right internal jugular vein. 2. Placement of a tunneled, dual-lumen hemodialysis catheter as above. 3. Catheter flushes and aspirates very well with a 10 mL syringe. No pneumothorax. IR/IR cvc insert central tunnel IMPRESSION: Placement of a tunneled hemodialysis catheter in the right internal jugular vein. PLAN: -The catheter may be used immediately. This procedure was performed by Valeriy Fulton PA-C, and directly supervised by Dr. Francisco.
--- NOTE | ~2023-07-11 | CT_ITS ---
EXAMINATION: CT CERVICAL SPINE WITHOUT CONTRAST CLINICAL INFORMATION: Fall COMPARISON: Previous cervical spine CT from 2019 TECHNIQUE: Axial images through the cervical spine without contrast. Sagittal and coronal reconstructions obtained. This CT examination was performed using dose optimization techniques as appropriate, variously including the following: *Automated exposure control *Adjustment of mA and/or kV according to patient size (this includes techniques or standardized protocols for targeted exams where dose is matched to indication/reason for exam; i.e. extremities or head) *Use of iterative reconstruction technique DLP: 700 mGy-cm FINDINGS: Exam is limited due to motion artifact. The C7 vertebral body is not completely imaged. Bone alignment is normal. No fracture or dislocation is seen. There is degenerative spondylosis and degenerative disc disease from C4-C5 to C6-C7. There are degenerative changes at the C1 dens articulation. Prevertebral soft tissues are normal. Lung apices not seen. CT/CT cervical spine wo IV con IMPRESSION: Limited exam due to motion. C7 vertebral body not completely imaged. Degenerative changes. Repeat exam should be considered if there is high clinical suspicion of injury. Fleischner guidelines were followed.
--- NOTE | ~2023-07-11 | XR_ITS ---
EXAMINATION: XR CHEST CLINICAL INFORMATION: Correlation for VQ scan COMPARISON: Chest x-ray on 09/29/2023 TECHNIQUE: Frontal view of the chest was obtained. FINDINGS: Redemonstration of the bronchial wall thickening and right upper lobe rounded opacity. No new areas of consolidation. The cardiac mediastinal silhouette is stable. There is a tunneled right internal jugular dialysis catheter terminating at the cavoatrial junction. XR/XR chest 1V IMPRESSION: Unchanged bronchial wall thickening and right upper lobe rounded opacity. Electronically signed by: Angie Fuentes MD 10/10/2023 01:59 PM EDT
--- NOTE | ~2023-07-11 | US_ITS ---
EXAMINATION: US TRIPLEX LOWER EXTREMITY, BILATERAL CLINICAL INFORMATION: Leg pain COMPARISON: None available. TECHNIQUE: Color-flow triplex imaging with spectral analysis and compression Doppler were performed on the bilateral lower extremities. FINDINGS: There is occlusive and nonocclusive thrombus acute on chronic in the common femoral and femoral veins. The popliteal vein is patent. The left common femoral vein,femoral vein, popliteal vein and calf veins are patent and compressible. There is no Ferreira's cyst. US/US venous duplex LE BI IMPRESSION: Acute on chronic DVT in the right common femoral and femoral veins. Electronically signed by: Angie Fuentes MD 10/08/2023 05:14 PM EDT
--- NOTE | ~2023-07-11 | XR_ITS ---
EXAMINATION: XR LUMBOSACRAL SPINE CLINICAL INFORMATION: Fall COMPARISON: None available. TECHNIQUE: Three views of the lumbosacral spine. FINDINGS: Bone alignment is normal. No fracture or dislocation. Normal disc spaces. Lower lumbar spine facet arthritis. XR/XR lumbar spine 2-3V IMPRESSION: No fracture or dislocation. Lower lumbar spine facet arthritis.
--- NOTE | ~2023-07-11 | XR_ITS ---
EXAMINATION: XR CHEST CLINICAL INFORMATION: Chest pain. COMPARISON: 06/10/2022 TECHNIQUE: Frontal view of the chest was obtained. FINDINGS: Lung volumes are relatively low. The cardiomediastinal silhouette is stable. A central catheter overlies the right atrium. There is no focal lung consolidation or pleural effusions. The bony structures and soft tissues are unremarkable. XR/XR chest 1V IMPRESSION: Low lung volumes. No acute cardiopulmonary process.
--- NOTE | ~2023-07-11 | IR_ITS ---
Permacath removal Patient presents with a tunneled dialysis catheter. Patient no longer requires dialysis. Referring physician requests removal. The right chest was prepped and draped in routine sterile fashion. 1% lidocaine was used for local anesthesia. Using blunt dissection, the tunneled dialysis catheter was removed from the chest wall without complication. After hemostasis was obtained, a dry sterile dressing was applied. Patient tolerated the procedure well. 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 Trinh Electronically signed by: Gerhard Reece MD 11/03/2023 02:38 PM EDT
--- NOTE | ~2023-07-11 | XR_ITS ---
EXAMINATION: XR ELBOW, RIGHT CLINICAL INFORMATION: Fall COMPARISON: None available. TECHNIQUE: AP, lateral, and oblique views of the right elbow. FINDINGS: The bones and soft tissues are normal. No fracture or joint effusion. Alignment is anatomic. Joint spaces are maintained. XR/XR elbow RT 2V IMPRESSION: Normal right elbow.
--- NOTE | ~2023-07-11 | XR_ITS ---
EXAMINATION: XR CHEST CLINICAL INFORMATION: Pulmonary position of permanent catheter COMPARISON: July 20, 2023 TECHNIQUE: Frontal view of the chest was obtained. FINDINGS: There is patchy, dense right upper lobe airspace disease most likely pneumonia. The right double-lumen dialysis catheter visualized again with the tip at the atriocaval junction XR/XR chest 1V IMPRESSION: Right upper lobe pneumonia in the appropriate position catheter. Electronically signed by: Rohith Burciaga MD 10/02/2023 08:15 AM EDT
--- NOTE | ~2023-07-11 | CT_ITS ---
EXAMINATION: CT CERVICAL SPINE WITHOUT CONTRAST CLINICAL INFORMATION: History of fall. Evaluate for cervical spine injury. COMPARISON: 07/23/2019 and 07/11/2023. TECHNIQUE: Multidetector CT imaging examination of the cervical spine is performed. The axial images and multiplanar reformatted images are reviewed. This CT examination was performed using dose optimization techniques as appropriate, variously including the following: *Automated exposure control *Adjustment of mA and/or kV according to patient size (this includes techniques or standardized protocols for targeted exams where dose is matched to indication/reason for exam; i.e. extremities or head) *Use of iterative reconstruction technique DLP: 692 mGy-cm FINDINGS: The craniocervical junction is normal. The cervical vertebra have normal height and alignment. There is lack of lordotic curvature of the degenerated spine. The atlantodental occipital and atlantodental articulation are intact. There is osteophyte formation at the anterior atlantodental joint. An old well-corticated ossicle is seen in the region of the left alar ligament. There are anterior vertebral osteophytes at C4-C5, C5-C6 and C6-C7. Facet arthropathy is moderate in degree on the right at C4-C5 and is mild some of the other levels. The C3-C4 uncovertebral joint hypertrophy causes moderate bilateral neural foraminal stenosis. The facet arthropathy at C4-C5 appears to cause moderate right-sided neural foraminal stenosis at this level. No significant osseous stenosis of the cervical spinal canal. No prevertebral edema or soft tissue hematoma. Thyroid gland is unremarkable. The visualized lung apices are normal. CT/CT cervical spine wo IV con IMPRESSION: * There is no fracture or subluxation of the degenerated cervical spine. * Mild discovertebral degenerative changes at C4-C5, C5-C6 and C6-C7. * The uncovertebral joint hypertrophy at C3-C4 causes moderate bilateral foraminal stenosis at this level. * Facet arthropathy is worst (moderate in degree) on the right at C4-C5.
--- NOTE | ~2023-07-11 | IR_ITS ---
CLINICAL HISTORY: Poorly functioning dialysis catheter PROCEDURES: 1. Replacement of a 14.5 fr 27 cm tunneled, dual-lumen hemodialysis catheter. Clinician: Valeriy Fulton PA-C MEDICATIONS: -Fentanyl 25 mcg, Lidocaine 1% 10 mL SQ. -Antibiotics: Ancef -For additional details, please see nursing flowsheet. COMPLICATIONS: None. ESTIMATED BLOOD LOSS: <5 ml SPECIMENS: None FLUOROSCOPY TIME: 1.0 min PROCEDURE NOTE: The procedure, risks, benefits, and alternatives were carefully explained to patient, and written informed consent was obtained. The patient was placed supine on the fluoroscopy table. A timeout was performed. The right neck and chest was prepped and draped in usual sterile fashion. Local anesthesia was administered to the right chest wall at the catheter entry site. Blunt dissection was used to dissect the cuff of the catheter from the right chest wall. A 0.035 wire was inserted through the arterial limb of the catheter and advanced into the IVC. The catheter was removed over the wire. A new 27 cm permacath was advanced over the wire and positioned with the tip in the right atrium. The wire was removed. The catheter was tested, flushed, and sutured to the skin. A permanent fluoroscopic image of the chest was saved to PACS. The catheter ports were packed with heparin per routine protocol. The patient was stable after the procedure and was transferred to the medical floor. IR/IR cvc replace central tunnel IMPRESSION: Replacement of a tunneled hemodialysis catheter in the right internal jugular vein. PLAN: -The catheter may be used immediately. This procedure was performed by Valeriy Fulton PA-C, and directly supervised by Dr. Francisco. Electronically signed by: Michael Francisco MD 09/30/2023 04:04 PM EDT
--- NOTE | ~2023-07-11 | IR_ITS ---
History: Malfunctioning dual lumen hemodialysis catheter. Procedures performed: 1. Balloon angioplasty of the superior vena cava and internal jugular vein to remove a fibrin sheath 2. Exchange of a 14.5 Lao dual lumen hemodialysis catheter measuring 27 cm (tip to cuff) Physician: Howard Reece MD FSIR Anesthesia: IV moderate sedation with intravenous Fentanyl and Versed was administered under my direct supervision with continuous physiologic monitoring for a total of 30 minutes. 10 mL of 1% lidocaine was injected subcutaneously at the catheter exit site and along the subcutaneous tract of the catheter for local anesthesia Specimen: None Line: 14.5 Lao dual lumen hemodialysis catheter measuring 27 cm (tip to cuff) Estimated blood loss: Minimal Complications: None Procedure in detail: Informed and written consent was obtained and placed in the patient's chart. The patient was positioned supine on the angiography table with sterile preparation of the right chest. The suture securing the existing tunneled hemodialysis catheter was cut. 1% lidocaine was injected subcutaneously in a circumferential pattern around the catheter at its exit site and along the subcutaneous tunnel. Blunt dissection was performed to free the cuff of the catheter. A stiff Glidewire was inserted through the lumen of the existing dialysis catheter and extended to the right atrium and subsequently the inferior vena cava. After removing the existing catheter, balloon angioplasty was repeatedly performed with a 12 mm x 40 mm balloon throughout the lower portion of the right internal jugular vein, the innominate vein, and the superior vena cava. This was repeatedly performed while pushing and pulling the balloon to break up any fibrin sheath given the recurrent and frequent failure of his prior catheters. The balloon was deflated and removed. A new 14.5 Lao dual lumen hemodialysis catheter measuring 27 cm (tip to cuff) was then advanced over the wire. A saved fluoroscopic image shows the catheter terminates at the right atrium. The new catheter was tested and flushes and aspirates appropriately. We locked it with heparin. It was sutured at the skin with 2-0 Prolene and an overlying sterile dressing was applied. Summary: Successful maceration and removal of a fibrin sheath with balloon angioplasty as described followed by fluoroscopically guided replacement of the tunneled hemodialysis catheter on the right chest that enters the circulation via the right internal jugular vein. The new catheter terminates in the right atrium and is ready for immediate use. Electronically signed by: Gerhard Reece MD 10/07/2023 05:49 PM EDT RP
--- NOTE | ~2023-07-11 | IR_ITS ---
CLINICAL HISTORY: Patient requires dialysis. The patient presents to interventional radiology for placement of a non-tunneled central venous catheter for hemodialysis. PROCEDURES: 1. Real-time ultrasound-guided access into the right internal jugular vein after documentation of selected vessel patency, and permanent imaging storing in the patient record. 2. Placement of a 12.0 fr 20 cm non-tunneled, dual-lumen hemodialysis catheter. Clinician: Valeriy Fulton PA-C MEDICATIONS: -Lidocaine 1% 10 mL SQ. -For additional details, please see nursing flowsheet. COMPLICATIONS: None. ESTIMATED BLOOD LOSS: <5 ml SPECIMENS: None FLUOROSCOPY TIME: 1.5 min PROCEDURE NOTE: The procedure, risks, benefits, and alternatives were carefully explained to patient, and written informed consent was obtained. The patient was placed supine on the fluoroscopy table. A timeout was performed. The right neck and chest was prepped and draped in usual sterile fashion. Local anesthesia was administered to the access site with lidocaine. Under ultrasound guidance, the right internal jugular vein was accessed with a 4 Fr micropuncture set. A 0.035 in wire was advanced into the IVC. The tract in the vein was serially dilated. Over the wire, a 12.0 fr 20 non-tunneled, dual-lumen hemodialysis catheter was advanced, with the tip located at the cavoatrial junction. The wire was removed. The catheter was tested, flushed, and sutured to the skin. A permanent fluoroscopic image of the chest was saved to PACS. The catheter ports were packed with heparin per routine protocol. The patient was stable after the procedure and was transferred to the medical floor. There were no immediate complications. FINDINGS: 1. Patent right internal jugular vein. 2. Placement of a non-tunneled, dual-lumen hemodialysis catheter as above. 3. Catheter flushes and aspirates very well with a 10 mL syringe. No pneumothorax. IR/IR cvc insert non tunnel IMPRESSION: Placement of a non-tunneled hemodialysis catheter in the right internal jugular vein. PLAN: -The catheter may be used immediately. This procedure was performed by Valeriy Fulton PA-C, and directly supervised by Dr. Trinh.
--- NOTE | 2023-07-11 12:19 | ECG_ITS ---
Test Reason : FOUND ON FLOOR Blood Pressure : / mmHG Vent. Rate : 100 BPM Atrial Rate : 100 BPM P-R Int : 170 ms QRS Dur : 110 ms QT Int : 372 ms P-R-T Axes : 043 040 046 degrees QTc Int : 479 ms Normal sinus rhythm Normal ECG When compared with ECG of 10-JUN-2022 09:26, Questionable change in QRS duration Referred By: Sidney Renteria Electronically Signed By:JESUS MCCORMACK MD
--- NOTE | 2023-07-11 12:22 | ED_ITS ---
HPI - General Adult General Chief complaint: Fall Stated complaint: (?AGE)ON FLOOR SINCE 3 AM,HEAD/BACK PAIN PER EMS Time Seen by Provider: 07/11/23 12:18 Source: patient and EMS Mode of arrival: EMS Limitations: no limitations History of Present Illness ED Provider: DR. Renteria HPI narrative: 53-year-old male came in by ambulance after was found on the ground since 03:00. Patient remember getting up from bed fell backward landing on his lower back and his right elbow, patient could not get himself off the floor, patient normally walk with a walker at home due to chronic back pain. Patient is complaining of bilateral lower extremities numbness, able to move bilateral lower extremities and right upper extremity but unable to lift the off the bed patient attributed that to his bilateral legs and right arm where stuck all night on the ground. patient overall is not cooperative with medical staff refusing most of the tests that is felt to be empirical tests to do, patient is a difficult IV access, patient is moving on the CT table causing cervical spine films are in adequate. Patient is declining talking to Dr. Rutherford who was consulted on the patient because high troponin. Overall patient is very difficult to redirect. Related Data Home Medications ?Medication ?Instructions ?Recorded ?Confirmed acetaminophen 650 mg 650 mg PO Q6H PRN fever 04/24/22 05/18/23 tablet,extended release (Arthritis Pain Relief (acetaminophen) ER) buprenorphine 4 mg-naloxone 1 mg 7 mg sublingual DAILY 04/24/22 05/18/23 sublingual film buprenorphine 8 mg-naloxone 2 mg 20 mg sublingual DAILY 04/24/22 05/18/23 sublingual film celecoxib 200 mg capsule 200 mg PO DAILY PRN Pain 04/24/22 05/18/23 fluticasone propionate 50 2 spray intranasal DAILY 04/24/22 05/18/23 mcg/actuation nasal spray,suspension folic acid 1 mg tablet 1 mg PO DAILY 04/24/22 05/18/23 furosemide 20 mg tablet 20 mg PO DAILY 04/24/22 05/18/23 lidocaine 5 % topical patch 1 patch topical DAILY 04/24/22 05/18/23 lisinopril 20 mg tablet 20 mg PO DAILY 04/24/22 05/18/23 loratadine 10 mg tablet (Allergy 10 mg PO DAILY 04/24/22 05/18/23 Relief (loratadine)) omeprazole 20 mg capsule,delayed 20 mg PO DAILY 04/24/22 05/18/23 release trazodone 50 mg tablet 100 mg PO BEDTIME PRN Insomnia 04/24/22 05/18/23 fluoxetine 40 mg capsule 40 mg PO DAILY 10/16/22 05/18/23 [place] 1 tab PO DAILY 04/01/23 05/18/23 [place] 1 tab PO DAILY 04/01/23 05/18/23 aripiprazole 5 mg tablet 5 mg PO DAILY 05/18/23 05/18/23 baclofen 10 mg tablet 10 mg PO TID 05/18/23 05/18/23 dulaglutide 0.75 mg/0.5 mL mg subcut QWEEK 05/18/23 05/18/23 subcutaneous pen injector (Trulicity) hydrocodone 5 mg-acetaminophen 325 1 tab PO Q4H PRN 05/18/23 05/18/23 mg tablet Allergies Allergy/AdvReac Type Severity Reaction Status Date / Time aspirin [ASPIRIN] Allergy Unknown SWELLING, Verified 07/11/23 12:24 NAUSEA, VOMITING Review of Systems 2 Review of Systems: All other systems are reviewed and are negative Constitutional: Reports as per HPI and Reports no additional constitutional complaints Eyes: Reports as per HPI and Reports no additional eye complaints Reports system reviewed and no additional complaints, except as documented Cardiovascular: Reports as per HPI and Reports no additional cardiovascular complaints Respiratory: Reports as per HPI and Reports no additional respiratory complaints Gastrointestinal: Reports as per HPI and Reports no additional gastrointestinal complaints Genitourinary: Reports no additional female genitourinary complaints Musculoskeletal: Reports no additional musculoskeletal complaints Skin/Breast: Reports system reviewed and no additional complaints, except as docu Psychiatric: Reports no additional psychiatric complaints Endocrine: Reports no additional endocrine complaints Hematologic/Lymphatic: Reports no additional hematologic/lymphatic complaints Allergic/Immunologic: Reports no additional allergic/immunologic complaints Reports system reviewed and no additional complaints, except as documented and Reports Abnormal speech present [facility] Past Medical History Medical History Tobacco dependence syndrome Rectal hemorrhage Prostatism Palpitations Nausea Leg edema, left Hyperglycemia Homeless History of COVID-19 Heartburn Essential hypertension Depressive disorder Chronic pain of left knee Chronic lower back pain Chest pain Asthma Amnesia Surgical History Umbilical hernia (04/01/23) History of surgery on lower extremity History of surgery on arm Family History Family History Mother Heart disease Diabetes Dementia Brainstem hemorrhage Father No problems noted. Social History Social History Alcohol intake: former Comment: counts correct Patient Tobacco Use Status: Former Tobacco user Smoked in Last 30 Days: No Use of substances other than those prescribed or required for medical reasons: No Advance Directives: No Advance Directives Information Provided: Yes Physical Exam ED Vital Signs: Vital Signs - 24 hr 07/11/23 12:19 07/11/23 12:25 07/11/23 13:03 Temperature 98.3 F 99.7 F Pulse Rate 103 H 96 Respiratory Rate 24 H Blood Pressure 103/61 Pulse Oximetry 95 Oxygen Delivery Method Room Air BMI result Body Mass Index 50.2 Vital signs have been reviewed and appear to be correct. Blood pressure elevated. Heart rate normal. Respiratory rate normal. Temperature normal. Oxygen saturation normal. Appearance: Alert. Oriented X3. No acute distress. Head: Normal external exam. Normocephalic. Atraumatic. No Nicole signs noted. No raccoon eyes noted Eyes: PERRLA. EOMI. Conjunctiva and sclera normal. Eyelids normal. ENT: TM's Normal. Pharynx normal. Uvula midline. Moist mucous membranes. No trismus noted. No drooling noted. No muffled voice noted. Neck: Normal inspection. Neck supple. FROM. No adenopathy. Thyroid Normal. No meningeal signs. No neck mass noted. CVS: Normal heart rate and rhythm. Heart sound normal. No murmurs noted. Pulses normal throughout. Respiratory: No respiratory distress. Painless inspiration. Breath sounds normal. No wheezes/rales/rhonchi noted. Chest nontender. No accessory muscle usage noted or decreased air movement noted. Abdomen: Soft and nontender. Bowel sounds normal in all 4 quadrants. No distention noted. No organomegaly noted. No visible injury noted. Back: No CVA tenderness. Full range of motion noted. Skin: Skin warm and dry. Normal skin color. Normal skin turgor. No rashes/lesions/lacerations noted. Extremities: No lower extremity edema. Extremities exhibit normal range of motion. Extremities nontender. Neuro: Oriented X 3. Cranial nerve exam: II-XII are grossly intact No motor deficit. No sensory deficit. is able to wiggle bilateral lower extremity but unable to lift off the bed and keep against gravity, moving right upper extremity but unable to keep it against gravity. Course Reevaluation(s) Reevaluation #1: 53-year-old male s/p fall at home and remain on the ground. Multiple attempt to obtain labs on the patient CPK still pending but very elevated troponin case discussed with Dr. Rutherford, EKG was reviewed we will wait for CPK. IV hydration. Start heparin drip if CPK not confirming diagnosis of rhabdomyolysis. Hyperkalemia specimen is slightly hemolyzed will start on Lokelma, fluids, bicarb, glucose/insulin, albuterol. Repeat C-spine CT. signed out to Dr. Lewis. Time: 16:05 Medications Administered Generic Name Dose Route Start Last Admin Trade Name Freq PRN Reason Stop Dose Admin Sodium Chloride 1,000 mls @ 999 mls/hr 07/11/23 16:00 07/11/23 16:17 Ns IV 07/11/23 17:00 999 mls/hr .Q1H1M ONE Administration Discontinued Medications Generic Name Dose Route Start Last Admin Trade Name Freq PRN Reason Stop Dose Admin Sodium Chloride 1,000 mls @ 999 mls/hr 07/11/23 12:19 07/11/23 15:57 Ns IV 07/11/23 13:19 Infused .Q1H1M ONE Infusion Medical Decision Making Differential Diagnosis Differential Diagnoses: The differential diagnosis associated with the presentation includes ( fall, C-spine fracture, lumbar spine fracture, right arm fracture, rhabdomyolysis, ACS, syncope, dehydration, electrolyte derangement.) Admission/Observation Consideration of admission/observation: Escalation of care including admission/observation considered Consult Healthcare Provider Management of the patient was discussed with: Hospitalist ( Dr. Suggs) Lab Data MDM Lab Attestation statement: I reviewed the patient's lab results. 07/11/23 15:56 07/11/23 12:39 Labs: Lab Results 07/11/23 07/11/23 07/11/23 Range/Units 12:23 12:39 15:56 WBC TNP 16.1 H RBC TNP 6.89 H Hgb TNP 19.6 H D Hct TNP 59.8 H MCV TNP 86.8 MCH TNP 28.4 MCHC TNP 32.8 RDW TNP 16.6 H Plt Count Not Reportable 280 MPV Not Reportable 8.6 L Immature Gran % (Auto) TNP 0.6 H Neut % (Auto) TNP 85.7 H Lymph % (Auto) TNP 8.3 L [place] % (Auto) TNP 5.0 Eos % (Auto) TNP 0.0 Baso % (Auto) TNP 0.4 Lymph # (Auto) TNP 1.3 [place] # (Auto) TNP 0.8 Eos # (Auto) TNP 0.0 Baso # (Auto) TNP 0.1 Abs Immat Gran (auto) TNP 0.10 H Absolute Neuts (auto) TNP 13.8 H Absolute Nucleated RBC TNP 0.020 H Nucleated RBC % (auto) TNP 0.1 POC Glucose 150 H (60-115) mg/dL Troponin I High Sens 95978.3 H* D (<3.5-35.0) ng/L B-Natriuretic Peptide 171 H (<100) pg/mL Independent Interpretation I performed an independent interpretation of an: Plain X-Ray ( right shoulder/ right elbow/lumbar spine x-ray: No acute fracture.) and CT Scan ( head/ C-spine CT: Head showed no acute intracranial pathology C-spine will be repeated.) Radiology Impression Discussion of test interpretation with radiology: I have reviewed the radiologist's reading. Critical Care Time Critical Care Time Critical Care Time: Yes Total Critical Care Time: 60 Attestation: The patient was critically ill with a high probability of imminent or life- threatening deterioration. I spent greater than 30 minutes of discontinuous time evaluating the patient, delivering critical care at the bedside, discussing evaluating data with consultants. Critical care time does not include time spent performing separately billable procedures or teaching. Time spent performing critical care was 60 minutes. Discharge Plan Discharge Clinical Impression: Rhabdomyolysis, Elevated troponin, Hyperkalemia Patient Disposition: Admitted As Inpatient Print Language: Occitan
[2023-07-11] MEDS: 0.9 % Sodium Chloride 1,000 ML 999 ML IV ×3 (12:43→19:50)
[2023-07-11 12:45] LABS: Glucose, Whole Blood 150 mg/dL (60-115)
[2023-07-11 13:29] LABS: B Type Natriuretic Peptide 171 pg/mL (<100)
[2023-07-11 13:55] LABS: Troponin-I High Sensitivity 11904.3 ng/L (<3.5-35.0)
--- NOTE | 2023-07-11 14:12 | MHC.EDTECH ---
This pct attempted to draw labs and patient is being argumentative will try again later.RN Aware
--- NOTE | 2023-07-11 14:18 | PC.NURSE ---
Patient agitated yelling that he wants water and wants to sit up and get out of bed. Unable to be re directed for even short periods of time , provider aware of elevated trop
--- NOTE | 2023-07-11 15:11 | P.CONCA_ITS ---
History of Present Illness History of Present Illness Date of Service: 07/11/23 Chief complaint: (?AGE)ON FLOOR SINCE 3 AM,HEAD/BACK PAIN PER EMS Narrative: This is a cardiology consultation regarding elevated troponins. Patient is a difficult historian and not willing to co-operate for history and exam. He keeps repeating that he wants the bed adjusted, water etc., even though they were promised to be done as soon as possible. Essentially he somehow fell and the brought here for evaluation. Troponins are elevated but all other labs are pending and it also seems that he is refusing labs. So not sure if they were even drawn. Otherwise, denies any chest pain or any cardiac hx. Only has back pain. Review of Systems 2 Review of Systems: Yes all other systems are reviewed and are negative Constitutional: Constitutional: Reports as per HPI and Reports no additional constitutional complaints Eyes: Eyes: Reports as per HPI and Denies no additional eye complaints ENT: Denies system reviewed and no additional complaints, except as documented and Reports as per HPI Cardiovascular: Cardiovascular: Reports as per HPI, Reports no additional cardiovascular complaints, Denies acrocyanosis, Denies cool extremities, Denies chest pain, Denies leg edema, Denies lightheadedness, Denies palpitations and Denies dyspnea Respiratory: Respiratory: Reports as per HPI, Denies no additional respiratory complaints and Denies dyspnea Gastrointestinal: Gastrointestinal: Reports as per HPI and Denies no additional gastrointestinal complaints Genitourinary: Genitourinary: Reports no additional male genitourinary complaints and Reports as per HPI Musculoskeletal: Musculoskeletal: Reports no additional musculoskeletal complaints and Reports as per HPI Integumentary/Breasts: Skin/Breast: Reports system reviewed and no additional complaints, except as docu Neurologic: Reports system reviewed and no additional complaints, except as documented and Reports as per HPI Psychiatric: Psychiatric: Reports no additional psychiatric complaints and Reports as per HPI Endocrine: Endocrine: Reports no additional endocrine complaints, Reports as per HPI and Denies palpitations Hematologic/Lymphatic: Hematologic/Lymphatic: Reports no additional hematologic/lymphatic complaints and Reports as per HPI Allergic/Immunologic: Allergic/Immunologic: Reports no additional allergic/immunologic complaints and Reports as per HPI PMFSH Past Medical History Medical History Tobacco dependence syndrome Rectal hemorrhage Prostatism Palpitations Nausea Leg edema, left Hyperglycemia Homeless History of COVID-19 Heartburn Essential hypertension Depressive disorder Chronic pain of left knee Chronic lower back pain Chest pain Asthma Amnesia Family History Family History Mother Heart disease Diabetes Dementia Brainstem hemorrhage Father No problems noted. Surgical History Surgical History Umbilical hernia (04/01/23) History of surgery on lower extremity History of surgery on arm Social History Social History Alcohol intake: former Comment: counts correct Patient Tobacco Use Status: Former Tobacco user Smoked in Last 30 Days: No Use of substances other than those prescribed or required for medical reasons: No Advance Directives: No Advance Directives Information Provided: Yes Meds Allergies Allergy/AdvReac Type Severity Reaction Status Date / Time aspirin [ASPIRIN] Allergy Unknown SWELLING, Verified 07/11/23 12:24 NAUSEA, VOMITING Home Medications ?Medication ?Instructions ?Recorded ?Confirmed ?Last Taken ?Type acetaminophen 650 mg 650 mg PO Q6H PRN fever 04/24/22 05/18/23 Unknown History tablet,extended release (Arthritis Pain Relief (acetaminophen) ER) buprenorphine 4 mg-naloxone 1 mg 7 mg sublingual DAILY 04/24/22 05/18/23 04/01/23 History sublingual film buprenorphine 8 mg-naloxone 2 mg 20 mg sublingual DAILY 04/24/22 05/18/23 04/01/23 History sublingual film celecoxib 200 mg capsule 200 mg PO DAILY PRN Pain 04/24/22 05/18/23 Unknown History fluticasone propionate 50 2 spray intranasal DAILY 04/24/22 05/18/23 Unknown History mcg/actuation nasal spray,suspension folic acid 1 mg tablet 1 mg PO DAILY 04/24/22 05/18/23 Unknown History furosemide 20 mg tablet 20 mg PO DAILY 04/24/22 05/18/23 Unknown History lidocaine 5 % topical patch 1 patch topical DAILY 04/24/22 05/18/23 Unknown History lisinopril 20 mg tablet 20 mg PO DAILY 04/24/22 05/18/23 Unknown History loratadine 10 mg tablet (Allergy 10 mg PO DAILY 04/24/22 05/18/23 Unknown History Relief (loratadine)) omeprazole 20 mg capsule,delayed 20 mg PO DAILY 04/24/22 05/18/23 Unknown History release trazodone 50 mg tablet 100 mg PO BEDTIME PRN Insomnia 04/24/22 05/18/23 Unknown History fluoxetine 40 mg capsule 40 mg PO DAILY 10/16/22 05/18/23 Unknown History Sheyla Verde 1 tab PO DAILY 04/01/23 05/18/23 Unknown History sea leach 1 tab PO DAILY 04/01/23 05/18/23 04/01/23 History aripiprazole 5 mg tablet 5 mg PO DAILY 05/18/23 05/18/23 Unknown History baclofen 10 mg tablet 10 mg PO TID 05/18/23 05/18/23 Unknown History dulaglutide 0.75 mg/0.5 mL mg subcut QWEEK 05/18/23 05/18/23 Unknown History subcutaneous pen injector (Trulicity) hydrocodone 5 mg-acetaminophen 325 1 tab PO Q4H PRN 05/18/23 05/18/23 Unknown History mg tablet Physical Exam 2 Vital Signs: Vital Signs: Last Vital Signs Temp 99.7 F 07/11/23 13:03 Pulse 96 07/11/23 12:25 Resp 24 H 07/11/23 12:19 BP 103/61 07/11/23 12:19 Pulse Ox 95 07/11/23 12:19 O2 Del Method Room Air 07/11/23 12:19 BMI result Body Mass Index 50.2 Const: General: comfortable and no acute distress O rientation/consciousness: patient oriented x3 HEENT: Other: Unremarkable Head: Yes normal to inspection Neck: Neck: Yes normal visual inspection Chest: Chest palpation & inspection: normal inspection of the chest Resp: Auscultation: clear to auscultation bilaterally Cardio: Other: (difficult to examine as is not co-opera ting ); grossly ok. GI: Palpation (GI): Soft to palpation Back/Spine/Pelvis: Other: unremarkable Skin: General skin exam: no rashes or lesions noted Neuro: General: patient oriented x3 Extrem: General: Yes normal to inspection Psych: Mental Status: mental status grossly normal Objective Labs and Meds 07/11/23 12:39 07/11/23 12:39 Lab results: Laboratory Results - last 24 hr 07/11/23 07/11/23 12:23 12:39 WBC TNP RBC TNP Hgb TNP Hct TNP MCV TNP MCH TNP MCHC TNP RDW TNP Plt Count Not Reportable MPV Not Reportable Immature Gran % (Auto) TNP Neut % (Auto) TNP Lymph % (Auto) TNP [place] % (Auto) TNP Eos % (Auto) TNP Baso % (Auto) TNP Lymph # (Auto) TNP [place] # (Auto) TNP Eos # (Auto) TNP Baso # (Auto) TNP Abs Immat Gran (auto) TNP Absolute Neuts (auto) TNP Absolute Nucleated RBC TNP Nucleated RBC % (auto) TNP POC Glucose 150 H Troponin I High Sens 11694.3 H* D B-Natriuretic Peptide 171 H ECG Interpretation: EKG with sinus tachycardia, 100/min; non specific ST-T changes, cannot exclude old anterior infarct, but could be from body habitus, slight QT prolongation Imaging Radiologist's impression: Impressions Elbow X-Ray 07/11/23 13:28 IMPRESSION: Normal right elbow. Lumbar Spine X-Ray 07/11/23 13:28 IMPRESSION: No fracture or dislocation. Lower lumbar spine facet arthritis. Shoulder X-Ray 07/11/23 13:28 IMPRESSION: No fracture or dislocation. Cervical Spine CT 07/11/23 13:38 IMPRESSION: Limited exam due to motion. C7 vertebral body not completely imaged. Degenerative changes. Repeat exam should be considered if there is high clinical suspicion of injury. Fleischner guidelines were followed. Head CT 07/11/23 13:38 IMPRESSION: No acute findings. Assessment and Plan (1) Elevated troponin: Status: Acute Plan High sensitivity troponin level is 11,904. Other labs are pending at this time and not clear if it is because patient refused. Any case, suspect mainly rhabdomyolysis. Less likely to be acute [place] as he has got absolutely no chest pain and EKGs also not showing any clear-cut ischemic changes. Main recommendation is to obtain all the pending labs including creatinine kinase as well as renal function. If CK is also substantially high, then all probably rhabdomyolysis. Also check tox screen. Need to ensure there is no cocaine. If trauma work is -ve, then reasonable to keep on IV heparin atleast till echo is obtained and ensure there is no overt wall motion finding. Difficult case as he isn't co-operative either. Discussed with . Procedures Date of Service Date of Service: 07/11/23
[2023-07-11 16:00] LABS: MANUAL DIFF FLAG NO
[2023-07-11 16:01] LABS: Basophils Absolute Auto 0.1 X10*3/uL (0.0-0.2); Basophils Percent Auto 0.4 % (0-2); Hemoglobin 19.6 g/dl (14.0-18.0); Imm Gran Pct Auto 0.6 % (0.0-0.4); Lymphocytes Absolute Auto 1.3 X10*3/uL (1.2-4.9); Lymphocytes Percent Auto 8.3 % (20-40); Mean Corpuscular HGB Conc 32.8 g/dl (31.0-36.0); Mean Corpuscular Hemoglobin 28.4 pg (27.0-33.0); Mean Corpuscular Volume 86.8 fL (80.0-98.0); Mean Platelet Volume 8.6 fL (9.4-12.4); Monocytes Absolute Auto 0.8 X10*3/uL (0.1-1.2); NRBC Pct Auto 0.1 /100WBC (0.0-0.2); Neutrophils Absolute Auto 13.8 x10*3/uL (2.0-8.3); Neutrophils Percent Auto 85.7 % (45-73); Platelet Count 280 X10*3/uL (160-400); Red Blood Count 6.89 X10*6/uL (4.60-5.80); Red Cell Distribution Width 16.6 % (11.0-16.0); White Blood Count 16.1 X10*3/uL (4.8-10.8)
[2023-07-11 16:04] LABS: Hematocrit 59.8 % (42.0-52.0)
[2023-07-11 16:34] LABS: Alanine Aminotransferase 1285 U/L (0-40); Albumin Level 3.9 g/dL (3.5-5.0); Alkaline Phosphatase 124 U/L (39-117); Anion Gap 29 (12-20); Aspartate Amino Transferase 2707 U/L (5-37); Bilirubin Direct 0.1 mg/dL (0.0-0.5); Bilirubin Total 0.5 mg/dL (0.0-1.0); Blood Urea Nitrogen 46 mg/dL (9-16); Calcium 6.9 mg/dL (8.4-10.2); Carbon Dioxide 14 mmol/L (22-29); Chloride 103 mmol/L (96-108); Glucose Random 155 mg/dL (60-115); Lipase 108 U/L (8-78); Potassium 8.3 mmol/L (3.3-5.1); Sodium 138 mmol/L (135-145); Total Protein 7.9 g/dL (6.5-8.0)
[2023-07-11 16:56] LABS: Estimated Glomerular Filt Rate 11
--- NOTE | 2023-07-11 17:39 | PC.NURSE ---
Per provider hold meds until K+ is re drawn, labs sent to lab
[2023-07-11 17:51] LABS: Glucose, Whole Blood 171 mg/dL (60-115)
[2023-07-11 18:18] LABS: Alanine Aminotransferase 1300 U/L (0-40); Albumin Level 3.9 g/dL (3.5-5.0); Alkaline Phosphatase 124 U/L (39-117); Anion Gap 29 (12-20); Aspartate Amino Transferase 2698 U/L (5-37); Bilirubin Direct 0.2 mg/dL (0.0-0.5); Bilirubin Total 0.5 mg/dL (0.0-1.0); Blood Urea Nitrogen 47 mg/dL (9-16); Carbon Dioxide 10 mmol/L (22-29); Chloride 106 mmol/L (96-108); Creatinine Clr Calc Pharmacy 24.3; Estimated Glomerular Filt Rate 12; Glucose Random 153 mg/dL (60-115); Potassium 8.4 mmol/L (3.3-5.1); Sodium 137 mmol/L (135-145); Total Protein 7.9 g/dL (6.5-8.0)
[2023-07-11 18:19] LABS: Troponin-I High Sensitivity 15447.3 ng/L (<3.5-35.0)
[2023-07-11] MEDS: Sodium Bicarbonate 8.4% 50 MEQ/50 ML SYRINGE IVPUSH (18:42)
[2023-07-11] MEDS: Insulin Regular, Human 100 UNIT/ML 10 ML VIAL 10 UNIT IVPUSH (18:43)
[2023-07-11] MEDS: Sodium Zirconium Cyclosilicate 10 GM POWD.PACK PO (18:43)
[2023-07-11] MEDS: Calcium Gluconate/NaCl,Iso-Osm 2 GM/100 ML PLAST..BAG IV (18:46)
[2023-07-11] MEDS: Albuterol Sulfate (0.083%) 2.5 MG/3 ML VIAL.NEB 10 MG INHALE (18:48)
[2023-07-11 19:09] LABS: Glucose, Whole Blood 181 mg/dL (60-115)
--- NOTE | 2023-07-11 19:09 | PC.NURSE ---
Alert and oriented, repositioned in bed, medicated per apr, per MD run calcium gluconate over 20 minutes
[2023-07-11 21:43] LABS: Anion Gap 22 (12-20); Blood Urea Nitrogen 41 mg/dL (9-16); Calcium 5.5 mg/dL (8.4-10.2); Carbon Dioxide 9 mmol/L (22-29); Chloride 115 mmol/L (96-108); Creatinine Clr Calc Pharmacy 33.2; Estimated Glomerular Filt Rate 17; Glucose Random 116 mg/dL (60-115); Potassium 3.8 mmol/L (3.3-5.1); Sodium 142 mmol/L (135-145)
[2023-07-11 23:30] LABS: Anion Gap 24 (12-20); Blood Urea Nitrogen 54 mg/dL (9-16); Calcium 6.6 mg/dL (8.4-10.2); Carbon Dioxide 12 mmol/L (22-29); Chloride 103 mmol/L (96-108); Creatinine Clr Calc Pharmacy 23.2; Estimated Glomerular Filt Rate 11; Glucose Random 133 mg/dL (60-115); Phosphorus 8.3 mg/dL (2.7-4.5); Potassium 6.2 mmol/L (3.3-5.1); Sodium 133 mmol/L (135-145)
[2023-07-11 23:31] LABS: Lactic Acid 2.3 mmol/L (0.5-2.0)
[2023-07-11] MEDS: Sodium Bicarbonate 8.4% 150 MEQ in Dextrose 5 % 850 ML 100 MEQ IV (23:38)
[2023-07-11] MEDS: Dextrose 5 % 1,000 ML 100 ML IVCONT (23:53)
--- NOTE | 2023-07-11 23:59 | PC.NURSE ---
calcium gluconate on hold per dr. pelayo/ will continue to monitor.
[2023-07-12] VITALS (29 sets, daily range): BP systolic 107–197; BP diastolic 72–120; PULSE 88–109; RESP 18–26; TEMP 36.4–37.6; O2SAT 92–99; BMI 47.8; BMI 48.3
--- NOTE | 2023-07-12 00:42 | PC.NURSE ---
bladder scan completed - revealed 0ml. Dr. Lewis aware
[2023-07-12 01:05] LABS: Reflex Lactate? Lactic Acid Added
[2023-07-12] MEDS: Calcium Gluconate/NaCl,Iso-Osm 2 GM/100 ML PLAST..BAG IV (01:08)
--- NOTE | 2023-07-12 01:26 | PC.NURSE ---
Nursing report given to TORSTEN Dias as pt is being transferred to icu. Pt is aware of plan of care.
[2023-07-12 01:40] LABS: VBG Base Excess -9.5 mmol/L; VBG HCO3 14 mmol/L (22-26); VBG pCO2 28 mmHg; VBG pH 7.31 (7.32-7.43); VBG pO2 52 mmHg
--- NOTE | 2023-07-12 01:40 | P.HPCC_ITS ---
History of Present Illness Date of Service: 07/12/23 Attending physician on admission: Sreedhar Duque Chief Complaint: Fall The patient is a 53-year-old male with a past medical history of diabetes mellitus type 2, hypertension, asthma, chronic back pain,? tobacco and morbid obesity who presented to the emergency department? via EMS after sustaining a fall.? According to EMS patient? reported he sustained a fall? on 07/11/2023 around 0300,? but was unable to get up for a while due to chronic back pain, ? He presented to the emergency department around 12:00pm.? ? On arrival to the emergency department patient was being difficult,? uncooperative with? medical staff,? refusing tests.?? ?initial laboratory data was significant for WBC of 16.1, potassium of 8.3, serum bicarb 14, anion gap 29, BUN 46, creatinine 5.35, calcium 6.9, AST? 2707, ALT 1885, alk phos 124, CK >18357,? troponin sensitivity 89145,? lactic acid? 3.9 ? Spool Salvager, Dr Rutherford,? was consulted for elevated troponin,? do not believe this is an acute event as patient did not complain of any chest pain.? Attributes troponin due to rhabdomyolysis. Patient received? 3 L normal saline bolus, 10 units of IV push insulin, 10 mg of Lokelma, 2 g of calcium gluconate, hour long albuterol treatment and? 2 amps of bicarb? pushes.? Due to patient being uncooperative,? repeat labs were not done into the night,? where his repeat laboratory data was significant for serum sodium of 133, potassium 6.2, serum bicarb 12, BUN 54, creatinine 5.30, lactic acid 2.3, calcium 6.6, and phos 8.3.? Renal, Dr Youngblood,? consulted by ED physician,? due to patient repeat labs? and not making any urine.? Does not recommend dialysis at this time,? advices for bicarb drip an additional calcium gluconate.? IMAGING:? ?HEAD / CERVICAL SPINE CT:? no acute findings ?Right shoulder x-ray:? no acute findings ?Right elbow x-ray:? no acute findings ? Patient will be admitted to the ICU for hemodynamic monitoring due to high? probability of patient requiring emergent dialysis? Review of Systems 2 Review of Systems: Yes Unobtainable due to mental condition (Patient poor historian ) [facility] Past Medical History Medical History Tobacco dependence syndrome Rectal hemorrhage Prostatism Palpitations Nausea Leg edema, left Hyperglycemia Homeless History of COVID-19 Heartburn Essential hypertension Depressive disorder Chronic pain of left knee Chronic lower back pain Chest pain Asthma Amnesia Family History Family History Mother Heart disease Diabetes Dementia Brainstem hemorrhage Father No problems noted. Surgical History Surgical History Umbilical hernia (04/01/23) History of surgery on lower extremity History of surgery on arm Social History Social History Alcohol intake: former Comment: counts correct Patient Tobacco Use Status: Former Tobacco user Smoked in Last 30 Days: No Use of substances other than those prescribed or required for medical reasons: No Currently Displaying Signs/Symptoms of Drug Intoxication Withdrawal: No Advance Directives: No Advance Directives Information Provided: Yes Nutrition Risks: No Nutritional Risk service: No Meds Allergies Allergy/AdvReac Type Severity Reaction Status Date / Time aspirin [ASPIRIN] Allergy Unknown SWELLING, Verified 07/11/23 12:24 NAUSEA, VOMITING Active Medications: Current Medications Heparin Sodium (Porcine) (Heparin Sodium,Porcine 5,000 Unit/Ml Vial) 5,000 unit SUBCUT TID [facility] Dextrose (D10) 250 mls @ 750 mls/hr IV Q15M PRN PRN Reason: per Hypoglycemia Standing Ord. Dextrose (D10) 250 mls @ 750 mls/hr IV Q15M PRN PRN Reason: per Hypoglycemia Standing Ord. Sodium Bicarbonate 150 meq/ (Dextrose) 1,000 mls @ 150 mls/hr IV .Q6H40M [facility] Last Admin: 07/11/23 23:38 Dose: 100 mls/hr Home Medications ?Medication ?Instructions ?Recorded ?Confirmed ?Last Taken ?Type acetaminophen 650 mg 650 mg PO Q6H PRN fever 04/24/22 07/12/23 Unknown History tablet,extended release (Arthritis Pain Relief (acetaminophen) ER) buprenorphine 4 mg-naloxone 1 mg 1 film sublingual DAILY 04/24/22 07/12/23 04/01/23 History sublingual film buprenorphine 8 mg-naloxone 2 mg 2 film sublingual DAILY 04/24/22 07/12/23 04/01/23 History sublingual film fluticasone propionate 50 2 spray intranasal DAILY 04/24/22 07/12/23 Unknown History mcg/actuation nasal spray,suspension lidocaine 5 % topical patch 1 patch topical DAILY 04/24/22 07/12/23 Unknown History lisinopril 20 mg tablet 20 mg PO DAILY 04/24/22 07/12/23 Unknown History aripiprazole 5 mg tablet 5 mg PO DAILY 05/18/23 07/12/23 Unknown History baclofen 10 mg tablet 10 mg PO TID PRN muscle spasms 05/18/23 07/12/23 Unknown History albuterol sulfate 90 mcg/actuation 2 puff inhalation QID PRN 07/12/23 07/12/23 Unknown History aerosol inhaler Shortness Of Breath Or Wheezing metformin 500 mg tablet 250 mg PO BID 07/12/23 07/12/23 Unknown History trazodone 150 mg tablet 150 mg PO BEDTIME 07/12/23 07/12/23 Unknown History Physical Exam 2 Vital Signs: Vital Signs: Last Vital Signs Temp 97.6 F 07/12/23 00:00 Pulse 95 07/12/23 00:00 Resp 18 07/12/23 00:00 BP 147/73 H 07/12/23 00:00 Pulse Ox 94 07/12/23 00:00 O2 Del Method Room Air 07/12/23 00:00 BMI result Body Mass Index 50.2 ?General:? Lethargic, but refusing to speak and ignoring commands. ?HEENT:? Head is normocephalic, atraumatic, pupils equal round reactive to light accommodation bilaterally.? Extraocular movements appear intact.? Buccal mucosa is dry, Neck is supple ?Cardiac:? Clear S1-S2, no murmurs rubs or gallops. ?Pulmonary:? Clear to auscultation, no wheezes, rales or rhonchi. ?Abdomen:? ?Abdomen soft, non-tender, non-distended. Normal bowel sounds. No pulsatile mass. No hepatosplenomegaly. ?Musculoskeletal:? Moving all 4 extremities randomly. Gait not assessed at this point. ?Neurologic:? No focal deficits noted.Motor strength as above.?? ?Skin:? + 3 BLE Edema. Intact, no lesions, edema, erythema, clubbing or cyanosis.? No ulcers. Vascular:? 2+ pulses upper and lower extremities distally.? Results Labs 07/13/23 07:20 07/13/23 07:20 Labs: Laboratory Results - last 24 hr 07/11/23 07/11/23 07/11/23 12:23 12:39 15:56 MCV TNP 86.8 MCH TNP 28.4 MCHC TNP 32.8 RDW TNP 16.6 H Plt Count Not Reportable 280 MPV Not Reportable 8.6 L Immature Gran % (Auto) TNP 0.6 H Neut % (Auto) TNP 85.7 H Lymph % (Auto) TNP 8.3 L Cavalier % (Auto) TNP 5.0 Eos % (Auto) TNP 0.0 Baso % (Auto) TNP 0.4 Lymph # (Auto) TNP 1.3 Cavalier # (Auto) TNP 0.8 Eos # (Auto) TNP 0.0 Baso # (Auto) TNP 0.1 Abs Immat Gran (auto) TNP 0.10 H Absolute Neuts (auto) TNP 13.8 H Absolute Nucleated RBC TNP 0.020 H Nucleated RBC % (auto) TNP 0.1 Anion Gap 29 H Estim Creat Clear Calc 23.0 Estimated GFR 11 POC Glucose 150 H Random Glucose 155 H Lactic Acid Calcium 6.9 L D Phosphorus Total Bilirubin 0.5 Direct Bilirubin 0.1 AST 2707 H ALT 1285 H Alkaline Phosphatase 124 H Total Creatine Kinase > 79419 H Troponin I High Sens 27655.3 H* D B-Natriuretic Peptide 171 H Total Protein 7.9 Albumin 3.9 Lipase 108 H 07/11/23 07/11/23 07/11/23 17:10 17:46 19:05 MCV MCH MCHC RDW Plt Count MPV Immature Gran % (Auto) Neut % (Auto) Lymph % (Auto) [place]alier % (Auto) Eos % (Auto) Baso % (Auto) Lymph # (Auto) Cavalier # (Auto) Eos # (Auto) Baso # (Auto) Abs Immat Gran (auto) Absolute Neuts (auto) Absolute Nucleated RBC Nucleated RBC % (auto) Anion Gap 29 H Estim Creat Clear Calc 24.3 Estimated GFR 12 POC Glucose 171 H 181 H Random Glucose 153 H Lactic Acid Calcium 7.0 L Phosphorus Total Bilirubin 0.5 Direct Bilirubin 0.2 AST 2698 H ALT 1300 H Alkaline Phosphatase 124 H Total Creatine Kinase Troponin I High Sens 15658.3 H* B-Natriuretic Peptide Total Protein 7.9 Albumin 3.9 Lipase 07/11/23 07/11/23 21:03 23:03 MCV MCH MCHC RDW Plt Count MPV Immature Gran % (Auto) Neut % (Auto) Lymph % (Auto) [place]alier % (Auto) Eos % (Auto) Baso % (Auto) Lymph # (Auto) Cavalier # (Auto) Eos # (Auto) Baso # (Auto) Abs Immat Gran (auto) Absolute Neuts (auto) Absolute Nucleated RBC Nucleated RBC % (auto) Anion Gap 22 H 24 H Estim Creat Clear Calc 33.2 23.2 Estimated GFR 17 11 POC Glucose Random Glucose 116 H 133 H Lactic Acid 2.3 H* Calcium 5.5 L* D 6.6 L D Phosphorus 8.3 H Total Bilirubin Direct Bilirubin AST ALT Alkaline Phosphatase Total Creatine Kinase Troponin I High Sens B-Natriuretic Peptide Total Protein Albumin Lipase Imaging Radiologist's Impressions: Impressions Elbow X-Ray 07/11/23 13:28 IMPRESSION: Normal right elbow. Lumbar Spine X-Ray 07/11/23 13:28 IMPRESSION: No fracture or dislocation. Lower lumbar spine facet arthritis. Shoulder X-Ray 07/11/23 13:28 IMPRESSION: No fracture or dislocation. Cervical Spine CT 07/11/23 13:38 IMPRESSION: Limited exam due to motion. C7 vertebral body not completely imaged. Degenerative changes. Repeat exam should be considered if there is high clinical suspicion of injury. Fleischner guidelines were followed. Head CT 07/11/23 13:38 IMPRESSION: No acute findings. Cervical Spine CT 07/11/23 16:40 IMPRESSION: * There is no fracture or subluxation of the degenerated cervical spine. * Mild discovertebral degenerative changes at C4-C5, C5-C6 and C6-C7. * The uncovertebral joint hypertrophy at C3-C4 causes moderate bilateral foraminal stenosis at this level. * Facet arthropathy is worst (moderate in degree) on the right at C4-C5. Assessment and Plan (1) Acute renal failure: Status: Acute (2) Rhabdomyolysis: Status: Acute (3) Transaminitis: Status: Acute (4) Hyperkalemia: Status: Acute (5) Elevated troponin: Status: Acute (6) Elevated troponin: Status: Acute (7) DMII (diabetes mellitus, type 2): Status: Acute (8) Fall: Status: Acute (9) Elevated lactic acid level: Status: Acute Plan ?53-year-old male with? history of diabetes mellitus type 2, hypertension, asthma, chronic back pain,? tobacco and morbid obesity admitted with rhabdomyolysis and acute renal failure? Neuro:? ?Mechanical Fall-? patient described a mechanical fall at home. CT head/cervical spine negative? for acute findings.? Patient is lethargic,? but refuses to talk,? difficult assessment, but all likely due to acute renal failure.? Continue with neuro assessment Cardiac:?? ?Rhabdomyolysis- Patient sustained a fall and was on the floor for approximately 8-9 hours.? CK? elevated to >67841, with elevated BUN and creat. Received x 3 L fluids in ED.. Started on Bicarb drip with 150meq at 150/hr. Will cont with IV fluids ?Elevated troponin- ? elevated troponin . patient denied chest pain,? EKG did not show clear ischemic changes.? Cardiology? consulted by ED physician,? who? agrees the elevated troponin is related to rhabdomyolysis.? Recommends? urine toxicology and echo.? We will order official echo for the morning.?Urine Toxicology pending. Appreciate cardiology recommendations.? ?Elevated lactic-? no evidence of septic shock,? elevated lactic? likely in the setting of rhabdo and renal failure.?Underlying history of hypertension:? will hold meds at this time,? due to high risk of becoming hypotensive due to renal failure? Pulmonary:? ??No acute issues Renal:?? ?Acute renal failure: ? BUN/creatinine? elevated to 54/ 5.35 baseline is normal. Potassium elevated? initially to 8.3,? down to 6.2 after Lokelma, albuterol treatment, IV push insulin and 2 amps of bicarb pushes.? Renal failure likely related to rhabdo. Nephrologists,? consulted does not recommend dialysis at this time,? recommends bicarb drip and additional calcium.? We will continue bicarb drip.? Appreciate Nephrology recommendations.? Endo:?? ?Underlying history of diabetes-? continue q.6 hours pocs? GI:? ?Transaminitis- ? no coagulopathy, could be related to rhabdo? Continue to trend LFTs? ?? ID:?? ?Leukocytosis:? in the setting of acute renal failure /rhabdo.? No evidence of severe infection.? Heme/Onc:? No acute issues. Psych:? No acute issues. Misc: no acute issues Prophylaxis:? subQ heparin Code? status:? FULL CODE, ? code status was confirmed with patient prior to? rapid decline.? ?Critical care time: x 90 min of critical care time? ?Case discussed with attending Dr Duque?
[2023-07-12 01:42] LABS: Venous Blood Gas Refer to POC result
[2023-07-12 01:59] LABS: ~Lactic Acid-LAB USE ONLY 2.8 mmol/L (0.5-2.0)
[2023-07-12] MEDS: Sodium Bicarbonate 8.4% 150 MEQ in Dextrose 5 % 850 ML IV (02:53)
[2023-07-12 03:35] LABS: Reflex Lactate? 2 Y
[2023-07-12 03:49] LABS: Amphetamine Screen Urine Not Detected (Not Detect); Barbiturates, Urine Not Detected (Not Detect); Benzodiazepines Screen Urine Not Detected (Not Detect); Buprenorphine Scr Not Detected (Not Detect); Cannabinoid Screen Urine Not Detected (Not Detect); Cocaine Screen Urine POSITIVE (Not Detect); Fentanyl, urine POSITIVE (Not Detect); Methadone Screen, Urine Not Detected (Not Detect); Opiate Screen Urine POSITIVE (Not Detect); Oxycodone Screen Urine Not Detected (Not Detect); Phencyclidine Screen Urine Not Detected (Not Detect)
[2023-07-12] MEDS: niCARdipine HCL 25 MG in 0.9 % Sodium Chloride 250 ML 52 MG IVCONT (04:00)
--- NOTE | 2023-07-12 04:24 | PC.NURSE ---
ADMIT TO 253-1 APPROX 2AM..ALERT..ORIENTED X3..OCASSIONAL VAGUE RESPONSES....WEAKLY GARDINER...BILATERAL LOWER LEGS AND RIGHT ARM EDEMATOUS...(+) PERIPHERAL PULSES....PER ER REPORT RADIOLOGY PLAN FOR ULTRASOUND RIGHT ARM IN AM..RESPIRATIONS EASY ON ROOM AIR...D5W IV D/C'D BY ICU SCREEN TENDER HELPER ON ARRIVAL AND BICARB DRIP INCREASED TO 150 CC/HR...#16FR PABLO PLACED PER ICU SCREEN TENDER HELPER..15ml BROWN URINE OBTAINED..URINE FOR TOX SCREEN COLLECTED...NSR/S.TACH HR 90'S-100'S...BP ELEVATED...STARTED NICARDIPINE DRIP 5 MG/HR 4AM PER MAR/ICU SCREEN TENDER HELPER...RESTFUL...AM LAB WORK DRAWN AND PENDING
[2023-07-12 04:36] LABS: ~Lactic Acid-LAB USE ONLY 2.4 mmol/L (0.5-2.0)
[2023-07-12 05:50] LABS: VBG Base Excess -6.8 mmol/L; VBG HCO3 14 mmol/L (22-26); VBG pCO2 20 mmHg; VBG pH 7.44 (7.32-7.43); VBG pO2 55 mmHg
[2023-07-12 05:53] LABS: Venous Blood Gas Refer to POC result
[2023-07-12 05:57] LABS: MANUAL DIFF FLAG NO
[2023-07-12 06:00] LABS: Basophils Percent Auto 0.1 % (0-2); Hematocrit 50.7 % (42.0-52.0); Hemoglobin 17.3 g/dl (14.0-18.0); Imm Gran Abs Auto 0.09 X10*3/uL (0.00-0.03); Imm Gran Pct Auto 0.6 % (0.0-0.4); Lymphocytes Absolute Auto 1.8 X10*3/uL (1.2-4.9); Lymphocytes Percent Auto 11.7 % (20-40); Mean Corpuscular HGB Conc 34.1 g/dl (31.0-36.0); Mean Corpuscular Hemoglobin 28.6 pg (27.0-33.0); Mean Corpuscular Volume 83.8 fL (80.0-98.0); Mean Platelet Volume 8.9 fL (9.4-12.4); Monocytes Absolute Auto 0.9 X10*3/uL (0.1-1.2); Monocytes Percent Auto 5.9 % (2-11); Neutrophils Absolute Auto 12.2 x10*3/uL (2.0-8.3); Neutrophils Percent Auto 81.7 % (45-73); Platelet Count 227 X10*3/uL (160-400); Red Blood Count 6.05 X10*6/uL (4.60-5.80); Red Cell Distribution Width 14.3 % (11.0-16.0)
[2023-07-12 06:05] LABS: Glucose, Whole Blood 184 mg/dL (60-115)
[2023-07-12 06:18] LABS: Prothrombin Time 11.9 SEC (11.1-13.3)
[2023-07-12 06:20] LABS: Appearance Urine Turbid; Leukocyte Esterase Urine Small (1+) (Negative); Nitrite Urine Negative (Negative); PH 5.5 (5.0-9.0); Specific Gravity - Urine 1.025 (1.005-1.025); UMIC TRIGGER UACC YES; Urine Blood Moderate (2+) (Negative); Urine Ketones Negative (Negative)
[2023-07-12 06:21] LABS: Bacteria Urine None Seen (None Seen); Color Urine Dark Yellow; Hyaline Casts Urine 0-2 /LPF (0-2); RBC Urine >20 /HPF (0-2); Squamous Epithelial Cell Urine 0-2 /HPF (0-2); UACC Culture Trigger YES
[2023-07-12 06:21] LABS: Alanine Aminotransferase 1010 U/L (0-40); Alkaline Phosphatase 111 U/L (39-117); Anion Gap 23 (12-20); Aspartate Amino Transferase 1876 U/L (5-37); Bilirubin Total 0.7 mg/dL (0.0-1.0); Blood Urea Nitrogen 63 mg/dL (9-16); Calcium 6.7 mg/dL (8.4-10.2); Carbon Dioxide 14 mmol/L (22-29); Chloride 99 mmol/L (96-108); Creatinine Clr Calc Pharmacy 18.9; Estimated Glomerular Filt Rate 9; Glucose Random 155 mg/dL (60-115); Magnesium 2.4 mg/dL (1.6-2.6); Phosphorus 7.9 mg/dL (2.7-4.5); Potassium 4.7 mmol/L (3.3-5.1); Sodium 131 mmol/L (135-145); Total Protein 6.1 g/dL (6.5-8.0)
[2023-07-12 06:42] LABS: Troponin-I High Sensitivity 8029.9 ng/L (<3.5-35.0)
--- NOTE | 2023-07-12 07:00 | CA_ITS ---
Transthoracic Echocardiogram Patient (Last, First, Middle): Jason Martinez L Gender: Male Date of : 1970 Age: 53 Procedure Date: 07/12/2023 Procedure Type: Transthoracic Echocardiogram Location: ICU Height: 172.72 cm Weight: 144.24 kg BSA: 2.49 m2 Heart Rate: bpm BP: 149 / 88 mmHg Recruiter Specialist: FELICIA Referring MD: Deisy Vargas NP Shoe Maker: Frankie Nguyen MD Symptoms: Elevated troponin/rhabdomyolysis Study Quality: Technically Difficult ECG Rhythm: Sinus Conclusions: - 1. Technically limited study despite use of contrast agent 2. Left ventricular is not well visualized with contrast LV ejection fraction about 55-60%. Wall motion abnormalities difficult to assess 3. Poorly visualized cardiac valves with cardiac valvular Dopplers within normal limits Findings Procedure Information Contrast agent, definity, is being given per protocol without apparent complications. Left Ventricle Normal left ventricular cavity size. The left ventricular systolic function is normal. The visually estimated ejection fraction is between 55-60%. Regional wall motion abnormalities can not be excluded due to suboptimal endocardial definition. Diastolic function is indeterminate on the basis of available data. Right Ventricle The right ventricle was not well visualized. Atria The left atrium was not well visualized. Interatrial shunt cannot be excluded. The right atrium was not well visualized. Aortic Valve The aortic valve was not well visualized. There is no aortic valve stenosis. There is no aortic valve regurgitation. Mitral Valve The mitral valve was not well visualized. There is no mitral valve regurgitation. There is no mitral valve stenosis. Pulmonic Valve The pulmonic valve was not well visualized. Tricuspid Valve The tricuspid valve was not well visualized. Tricuspid regurgitation envelope is inadequate for calculation of right ventricular systolic pressure. Great Vessels The aorta was not well visualized. The pulmonary artery was not well visualized. Venous The inferior vena cava was not well visualized. Pericardium/Pleural The pericardium was not well visualized. Prior Study Comparison No prior study available for comparison. Measurements 2D Linear Measurements IVSd: 1.61 0.6-0.9/0.6-1.0 cm Ao Root: 3.50 2.1-3.5 cm LA Diam: 3.10 2.7-3.8/3.0-4.0 cm LAIDs Index: 1.24 1.5-2.3 cm/m2 LVOT Diam: 2.10 3.0+(-)1.3 cm 2D Systolic Function EF 4C: 52.70 >55% EF 2C: 64.90 >55% EF BiP: 58.10 >55% Mitral Valve MV Pk E: 0.57 MV PK A: 0.89 MV Decel Time: 139.00 E/A: 0.60 E'Lateral: 4.79 E'Medial: 3.37 E/E' Med: 17.00 E/E' Lat: 12.00 PHT: 41.00 MVA PHT: 5.37 Decel [place]: 4.13 Aortic Valve AoV Pk Isacc: 1.16 AoV Pk Grad: 5.00 LVOT LVOT Pk Isacc: 1.02 LVOT Mn Isacc: 0.70 LVOT VTI: 0.14 LVOT Pk Grad: 4.00 LVOT Mn Grad: 3.00 LVOT Diam: 2.10 LVOT Area: 3.46 Diastolic Function MV Pk E: 0.57 MV Pk A: 0.89 E/A: 0.60 E'Medial: 3.37 E/E' Med: 17.00 E' Laterial: 4.79 E/E' Lat: 12.00 Great Vessels Aorta Ao Root-2D: 3.50 2.0-3.7 cm Ao Asc: 3.90 2.1-3.4 cm Pulmonary Valve PV Pk Isacc: 0.83 Peak PV Grad: 3.00 Updated in Other Vendor System with Status of Final Frankie Nguyen MD electronically signed on 07/12/2023 11:26:59 AM with status of Final
[2023-07-12] MEDS: Albumin Human 25 % 100 ML IV ×2 (07:39→16:05)
[2023-07-12] MEDS: Acetaminophen 325 MG TABLET 650 MG PO ×2 (09:08→16:06)
[2023-07-12] MEDS: lisinopriL 20 MG TABLET PO (09:08)
--- NOTE | 2023-07-12 09:16 | MHC.CM.PN ---
Attempted to meet with pt in ICU to complete CM assessment and assist w/d/c planning: Pt states he feels poorly and is requesting to be left alone. Pt gave CM permission to contact his next of kin, his sister Lauryn: Call placed - no answer or ability to leave a VM. Will reapproach pt later today or tomorrow am.
[2023-07-12 11:42] LABS: Glucose, Whole Blood 153 mg/dL (60-115)
--- NOTE | 2023-07-12 12:31 | P.CONNP_ITS ---
History of Present Illness Reason for Consult Consult date: 07/13/23 Reason for consult: CHITO Chief Complaint Chief complaint: Acute renal failure History of Present Illness Narrative: 53-year-old male with a past medical history of diabetes mellitus type 2, hypertension, asthma, chronic back pain,? tobacco and morbid obesity who presented to the emergency department? via EMS after sustaining a fall. At the time admission CPK was more than 42,000. Review of Systems Review of Systems Yes Unobtainable due to mental status PMFSH Past Medical History Medical History Tobacco dependence syndrome Rectal hemorrhage Prostatism Palpitations Nausea Leg edema, left Hyperglycemia Homeless History of COVID-19 Heartburn Essential hypertension Depressive disorder Chronic pain of left knee Chronic lower back pain Chest pain Asthma Amnesia Family History Family History Mother Heart disease Diabetes Dementia Brainstem hemorrhage Father No problems noted. Surgical History Surgical History Umbilical hernia (04/01/23) History of surgery on lower extremity History of surgery on arm Social History Social History Alcohol intake: former Comment: counts correct Patient Tobacco Use Status: Former Tobacco user Smoked in Last 30 Days: No Use of substances other than those prescribed or required for medical reasons: No Currently Displaying Signs/Symptoms of Drug Intoxication Withdrawal: No Advance Directives: No Advance Directives Information Provided: Yes Nutrition Risks: No Nutritional Risk service: No Meds Allergies Allergy/AdvReac Type Severity Reaction Status Date / Time aspirin [ASPIRIN] Allergy Unknown SWELLING, Verified 07/11/23 12:24 NAUSEA, VOMITING Active Medications: Current Medications Acetaminophen (Acetaminophen 325 Mg Tablet) 650 mg PO Q4H PRN PRN Reason: Pain, Moderate(Pain Scale 4-6) Last Admin: 07/12/23 09:08 Dose: 650 mg Heparin Sodium (Porcine) (Heparin Sodium,Porcine 5,000 Unit/Ml Vial) 5,000 unit SUBCUT TID JOVANNY Last Admin: 07/12/23 09:16 Dose: Not Given Dextrose (D10) 250 mls @ 750 mls/hr IV Q15M PRN PRN Reason: per Hypoglycemia Standing Ord. Dextrose (D10) 250 mls @ 750 mls/hr IV Q15M PRN PRN Reason: per Hypoglycemia Standing Ord. Albumin Human (Kedbumin 25 %) 100 mls @ 100 mls/hr IV Q6H [facility] Stop: 07/12/23 14:59 Last Infusion: 07/12/23 08:41 Dose: Infused Insulin Human Lispro (Insulin Lispro 100 Unit/Ml 3 Ml Vial) 0 unit SUBCUT QIDACHS [facility]; Protocol Last Admin: 07/12/23 11:38 Dose: Not Given Home Medications ?Medication ?Instructions ?Recorded ?Confirmed ?Last Taken ?Type acetaminophen 650 mg 650 mg PO Q6H PRN fever 04/24/22 07/12/23 Unknown History tablet,extended release (Arthritis Pain Relief (acetaminophen) ER) buprenorphine 4 mg-naloxone 1 mg 1 film sublingual DAILY 04/24/22 07/12/23 04/01/23 History sublingual film buprenorphine 8 mg-naloxone 2 mg 2 film sublingual DAILY 04/24/22 07/12/23 04/01/23 History sublingual film fluticasone propionate 50 2 spray intranasal DAILY 04/24/22 07/12/23 Unknown History mcg/actuation nasal spray,suspension lidocaine 5 % topical patch 1 patch topical DAILY 04/24/22 07/12/23 Unknown History lisinopril 20 mg tablet 20 mg PO DAILY 04/24/22 07/12/23 Unknown History aripiprazole 5 mg tablet 5 mg PO DAILY 05/18/23 07/12/23 Unknown History baclofen 10 mg tablet 10 mg PO TID PRN muscle spasms 05/18/23 07/12/23 Unknown History albuterol sulfate 90 mcg/actuation 2 puff inhalation QID PRN 07/12/23 07/12/23 Unknown History aerosol inhaler Shortness Of Breath Or Wheezing metformin 500 mg tablet 250 mg PO BID 07/12/23 07/12/23 Unknown History trazodone 150 mg tablet 150 mg PO BEDTIME 07/12/23 07/12/23 Unknown History Physical Exam Vital Signs: Last Vital Signs Temp 98.8 F 07/12/23 12:00 Pulse 107 H 07/12/23 12:00 Resp 20 07/12/23 12:00 BP 131/79 07/12/23 12:00 Pulse Ox 97 07/12/23 12:00 O2 Del Method Room Air 07/12/23 12:00 BMI result Body Mass Index 48.3 Const General: ill appearing Neck Neck: Yes supple Resp Auscultation: clear to auscultation bilaterally Cardio Palpation: no palpable S3 Heart sounds: no rubs GI Palpation (GI): Soft to palpation Auscultation: normal bowel sounds Neuro Motor exam (neuro): no asterixis Results Lab Results 07/13/23 07:20 07/13/23 07:20 Lab results: Chemistry 07/11/23 07/11/23 07/11/23 15:56 17:10 21:03 Sodium 138 137 142 Potassium 8.3 H* D 8.4 H* 3.8 D Carbon Dioxide 14 L 10 L* D 9 L* BUN 46 H 47 H 41 H Creatinine 5.35 H* 5.06 H* 3.71 H Calcium 6.9 L D 7.0 L 5.5 L* D Phosphorus 07/11/23 07/12/23 23:03 05:43 Sodium 133 L 131 L Potassium 6.2 H* D 4.7 D Carbon Dioxide 12 L 14 L BUN 54 H 63 H Creatinine 5.30 H* 6.34 H* Calcium 6.6 L D 6.7 L Phosphorus 8.3 H 7.9 H Hematology 07/11/23 07/11/23 07/12/23 12:39 15:56 05:43 WBC TNP 16.1 H 15.0 H Hgb TNP 19.6 H D 17.3 Plt Count Not Reportable 280 227 Urinalysis 07/12/23 05:30 Urine Color Dark Yellow Urine Appearance Turbid Urine pH 5.5 Ur Specific [place] 1.025 Urine Protein See Note Urine Glucose (UA) See Note Urine Ketones Negative Urine Blood Moderate (2+) H Urine Nitrite Negative Ur Leukocyte Esterase Small (1+) H Urine RBC >20 H Urine WBC 11-20 H Ur Squamous Epith Cells 0-2 Hyaline Casts 0-2 Assessment and Plan (1) Acute renal failure: Status: Acute Plan CHITO and severe hyperkalemia due to rhabdomyolysis. He has tubular injury due to rhabdomyolysis. Currently oliguric. Hyperkalemia was corrected medically and recent potassium is in normal range. At this point he has no signs of renal recovery yet. Watch urine output closely. We will discontinue IV fluids to avoid risk of fluid overload. Monitor serum electrolytes and fluid status closely. If renal function does not improve or if he develops hyperkalemia he would need renal replacement therapy Watch calcium and replace as needed. Check potassium and phosphorus with next blood draw Procedures Date of Service Date of Service: 07/13/23
--- NOTE | 2023-07-12 12:48 | PM.PNCARD ---
Subjective Subjective Date of Service: 07/12/23 Principal diagnosis: Elevated troponins Interval history: Patient continues to have no chest pain. Tones are downtrending. Patient continues to have acute renal failure and is currently anuric. Blood pressure and heart rate are elevated. Patient complains of diffuse pain. Markedly elevated CPK. Echocardiogram at bedside shows preserved LV ejection fraction although the quality of study was poor and difficult to assess wall motion. Review of Systems Constitutional: Reports malaise Eyes: Reports no additional eye complaints Cardiovascular: Reports no additional cardiovascular complaints Respiratory: Reports no additional respiratory complaints Musculoskeletal: Reports myalgias and Reports stiffness Physical Exam Vital Signs: Last Vital Signs Temp 98.8 F 07/12/23 12:00 Pulse 107 H 07/12/23 12:00 Resp 20 07/12/23 12:00 BP 131/79 07/12/23 12:00 Pulse Ox 97 07/12/23 12:00 O2 Del Method Room Air 07/12/23 12:00 BMI result Body Mass Index 48.3 Const General: comfortable and no acute distress Orientation/consciousness: patient oriented x3 HEENT Other: Unremarkable Head: Yes normal to inspection Neck Neck: Yes normal visual inspection Chest Chest palpation & inspection: normal inspection of the chest Resp Auscultation: clear to auscultation bilaterally Cardio Other: (difficult to examine as is not co-operating ); grossly ok. GI Palpation (GI): Soft to palpation Back/Spine/Pelvis Other: unremarkable Skin General skin exam: no rashes or lesions noted Neuro General: patient oriented x3 Extrem General: Yes normal to inspection Psych Mental Status: mental status grossly normal Objective Labs and Meds 07/12/23 05:43 07/12/23 05:43 Lab results: Laboratory Results - last 24 hr 07/11/23 07/11/23 07/11/23 12:39 15:56 17:10 WBC TNP 16.1 H RBC TNP 6.89 H Hgb TNP 19.6 H D Hct TNP 59.8 H MCV TNP 86.8 MCH TNP 28.4 MCHC TNP 32.8 RDW TNP 16.6 H Plt Count Not Reportable 280 MPV Not Reportable 8.6 L Immature Gran % (Auto) TNP 0.6 H Neut % (Auto) TNP 85.7 H Lymph % (Auto) TNP 8.3 L [place] % (Auto) TNP 5.0 Eos % (Auto) TNP 0.0 Baso % (Auto) TNP 0.4 Lymph # (Auto) TNP 1.3 [place] # (Auto) TNP 0.8 Eos # (Auto) TNP 0.0 Baso # (Auto) TNP 0.1 Abs Immat Gran (auto) TNP 0.10 H Absolute Neuts (auto) TNP 13.8 H Absolute Nucleated RBC TNP 0.020 H Nucleated RBC % (auto) TNP 0.1 PT INR VBG pH VBG pCO2 VBG pO2 VBG HCO3 VBG O2 Saturation VBG Base Excess Sodium 138 137 Potassium 8.3 H* D 8.4 H* Chloride 103 106 Carbon Dioxide 14 L 10 L* D Anion Gap 29 H 29 H BUN 46 H 47 H Creatinine 5.35 H* 5.06 H* Estim Creat Clear Calc 23.0 24.3 Estimated GFR 11 12 POC Glucose Random Glucose 155 H 153 H Lactic Acid Lactic Acid F/U @ 2Hr Lactic Acid F/U @ 4Hr Calcium 6.9 L D 7.0 L Phosphorus Magnesium Total Bilirubin 0.5 0.5 Direct Bilirubin 0.1 0.2 AST 2707 H 2698 H ALT 1285 H 1300 H Alkaline Phosphatase 124 H 124 H Total Creatine Kinase > 63347 H Troponin I High Sens 81960.3 H* D 90806.3 H* B-Natriuretic Peptide 171 H Total Protein 7.9 7.9 Albumin 3.9 3.9 Lipase 108 H Urine Color Urine Appearance Urine pH Ur Specific [place] Urine Protein Urine Glucose (UA) Urine Ketones Urine Blood Urine Nitrite Ur Leukocyte Esterase Urine RBC Urine WBC Ur Squamous Epith Cells Urine Bacteria Hyaline Casts Urine Opiates Screen Ur Buprenorphine Scrn Ur Oxycodone Screen Urine Methadone Screen Urine Fentanyl Screen Ur Barbiturates Screen Ur Phencyclidine Scrn Ur Amphetamines Screen U Benzodiazepines Scrn Urine Cocaine Screen U Marijuana (THC) Screen 07/11/23 07/11/23 07/11/23 17:46 19:05 21:03 WBC RBC Hgb Hct MCV MCH MCHC RDW Plt Count MPV Immature Gran % (Auto) Neut % (Auto) Lymph % (Auto) [place] % (Auto) Eos % (Auto) Baso % (Auto) Lymph # (Auto) [place] # (Auto) Eos # (Auto) Baso # (Auto) Abs Immat Gran (auto) Absolute Neuts (auto) Absolute Nucleated RBC Nucleated RBC % (auto) PT INR VBG pH VBG pCO2 VBG pO2 VBG HCO3 VBG O2 Saturation VBG Base Excess Sodium 142 Potassium 3.8 D Chloride 115 H Carbon Dioxide 9 L* Anion Gap 22 H BUN 41 H Creatinine 3.71 H Estim Creat Clear Calc 33.2 Estimated GFR 17 POC Glucose 171 H 181 H Random Glucose 116 H Lactic Acid Lactic Acid F/U @ 2Hr Lactic Acid F/U @ 4Hr Calcium 5.5 L* D Phosphorus Magnesium Total Bilirubin Direct Bilirubin AST ALT Alkaline Phosphatase Total Creatine Kinase Troponin I High Sens B-Natriuretic Peptide Total Protein Albumin Lipase Urine Color Urine Appearance Urine pH Ur Specific [place] Urine Protein Urine Glucose (UA) Urine Ketones Urine Blood Urine Nitrite Ur Leukocyte Esterase Urine RBC Urine WBC Ur Squamous Epith Cells Urine Bacteria Hyaline Casts Urine Opiates Screen Ur Buprenorphine Scrn Ur Oxycodone Screen Urine Methadone Screen Urine Fentanyl Screen Ur Barbiturates Screen Ur Phencyclidine Scrn Ur Amphetamines Screen U Benzodiazepines Scrn Urine Cocaine Screen U Marijuana (THC) Screen 07/11/23 07/12/23 07/12/23 23:03 01:32 01:34 WBC RBC Hgb Hct MCV MCH MCHC RDW Plt Count MPV Immature Gran % (Auto) Neut % (Auto) Lymph % (Auto) [place] % (Auto) Eos % (Auto) Baso % (Auto) Lymph # (Auto) [place] # (Auto) Eos # (Auto) Baso # (Auto) Abs Immat Gran (auto) Absolute Neuts (auto) Absolute Nucleated RBC Nucleated RBC % (auto) PT INR VBG pH 7.31 L VBG pCO2 28 VBG pO2 52 VBG HCO3 14 L VBG O2 Saturation 75.0 VBG Base Excess -9.5 Sodium 133 L Potassium 6.2 H* D Chloride 103 Carbon Dioxide 12 L Anion Gap 24 H BUN 54 H Creatinine 5.30 H* Estim Creat Clear Calc 23.2 Estimated GFR 11 POC Glucose Random Glucose 133 H Lactic Acid 2.3 H* Lactic Acid F/U @ 2Hr 2.8 H* Lactic Acid F/U @ 4Hr Calcium 6.6 L D Phosphorus 8.3 H Magnesium Total Bilirubin Direct Bilirubin AST ALT Alkaline Phosphatase Total Creatine Kinase Troponin I High Sens B-Natriuretic Peptide Total Protein Albumin Lipase Urine Color Urine Appearance Urine pH Ur Specific [place] Urine Protein Urine Glucose (UA) Urine Ketones Urine Blood Urine Nitrite Ur Leukocyte Esterase Urine RBC Urine WBC Ur Squamous Epith Cells Urine Bacteria Hyaline Casts Urine Opiates Screen Ur Buprenorphine Scrn Ur Oxycodone Screen Urine Methadone Screen Urine Fentanyl Screen Ur Barbiturates Screen Ur Phencyclidine Scrn Ur Amphetamines Screen U Benzodiazepines Scrn Urine Cocaine Screen U Marijuana (THC) Screen 07/12/23 07/12/23 07/12/23 02:38 04:15 05:30 WBC RBC Hgb Hct MCV MCH MCHC RDW Plt Count MPV Immature Gran % (Auto) Neut % (Auto) Lymph % (Auto) [place] % (Auto) Eos % (Auto) Baso % (Auto) Lymph # (Auto) [place] # (Auto) Eos # (Auto) Baso # (Auto) Abs Immat Gran (auto) Absolute Neuts (auto) Absolute Nucleated RBC Nucleated RBC % (auto) PT INR VBG pH VBG pCO2 VBG pO2 VBG HCO3 VBG O2 Saturation VBG Base Excess Sodium Potassium Chloride Carbon Dioxide Anion Gap BUN Creatinine Estim Creat Clear Calc Estimated GFR POC Glucose Random Glucose Lactic Acid Lactic Acid F/U @ 2Hr Lactic Acid F/U @ 4Hr 2.4 H* Calcium Phosphorus Magnesium Total Bilirubin Direct Bilirubin AST ALT Alkaline Phosphatase Total Creatine Kinase Troponin I High Sens B-Natriuretic Peptide Total Protein Albumin Lipase Urine Color Dark Yellow Urine Appearance Turbid Urine pH 5.5 Ur Specific [place] 1.025 Urine Protein See Note Urine Glucose (UA) See Note Urine Ketones Negative Urine Blood Moderate (2+) H Urine Nitrite Negative Ur Leukocyte Esterase Small (1+) H Urine RBC >20 H Urine WBC 11-20 H Ur Squamous Epith Cells 0-2 Urine Bacteria None Seen Hyaline Casts 0-2 Urine Opiates Screen POSITIVE H Ur Buprenorphine Scrn Not Detected Ur Oxycodone Screen Not Detected Urine Methadone Screen Not Detected Urine Fentanyl Screen POSITIVE H Ur Barbiturates Screen Not Detected Ur Phencyclidine Scrn Not Detected Ur Amphetamines Screen Not Detected U Benzodiazepines Scrn Not Detected Urine Cocaine Screen POSITIVE H U Marijuana (THC) Screen Not Detected 07/12/23 07/12/23 07/12/23 05:42 05:43 05:57 WBC 15.0 H RBC 6.05 H Hgb 17.3 Hct 50.7 MCV 83.8 MCH 28.6 MCHC 34.1 RDW 14.3 Plt Count 227 MPV 8.9 L Immature Gran % (Auto) 0.6 H Neut % (Auto) 81.7 H Lymph % (Auto) 11.7 L [place] % (Auto) 5.9 Eos % (Auto) 0.0 Baso % (Auto) 0.1 Lymph # (Auto) 1.8 [place] # (Auto) 0.9 Eos # (Auto) 0.0 Baso # (Auto) 0.0 Abs Immat Gran (auto) 0.09 H Absolute Neuts (auto) 12.2 H Absolute Nucleated RBC 0.000 Nucleated RBC % (auto) 0.0 PT 11.9 INR 1.0 VBG pH 7.44 H VBG pCO2 20 VBG pO2 55 VBG HCO3 14 L VBG O2 Saturation 86.0 VBG Base Excess -6.8 Sodium 131 L Potassium 4.7 D Chloride 99 Carbon Dioxide 14 L Anion Gap 23 H BUN 63 H Creatinine 6.34 H* Estim Creat Clear Calc 18.9 Estimated GFR 9 POC Glucose 184 H Random Glucose 155 H Lactic Acid Lactic Acid F/U @ 2Hr Lactic Acid F/U @ 4Hr Calcium 6.7 L Phosphorus 7.9 H Magnesium 2.4 Total Bilirubin 0.7 Direct Bilirubin AST 1876 H ALT 1010 H Alkaline Phosphatase 111 Total Creatine Kinase > 09589 H Troponin I High Sens 8029.9 H* B-Natriuretic Peptide Total Protein 6.1 L Albumin 3.0 L Lipase Urine Color Urine Appearance Urine pH Ur Specific [place] Urine Protein Urine Glucose (UA) Urine Ketones Urine Blood Urine Nitrite Ur Leukocyte Esterase Urine RBC Urine WBC Ur Squamous Epith Cells Urine Bacteria Hyaline Casts Urine Opiates Screen Ur Buprenorphine Scrn Ur Oxycodone Screen Urine Methadone Screen Urine Fentanyl Screen Ur Barbiturates Screen Ur Phencyclidine Scrn Ur Amphetamines Screen U Benzodiazepines Scrn Urine Cocaine Screen U Marijuana (THC) Screen 07/12/23 11:37 WBC RBC Hgb Hct MCV MCH MCHC RDW Plt Count MPV Immature Gran % (Auto) Neut % (Auto) Lymph % (Auto) [place] % (Auto) Eos % (Auto) Baso % (Auto) Lymph # (Auto) [place] # (Auto) Eos # (Auto) Baso # (Auto) Abs Immat Gran (auto) Absolute Neuts (auto) Absolute Nucleated RBC Nucleated RBC % (auto) PT INR VBG pH VBG pCO2 VBG pO2 VBG HCO3 VBG O2 Saturation VBG Base Excess Sodium Potassium Chloride Carbon Dioxide Anion Gap BUN Creatinine Estim Creat Clear Calc Estimated GFR POC Glucose 153 H Random Glucose Lactic Acid Lactic Acid F/U @ 2Hr Lactic Acid F/U @ 4Hr Calcium Phosphorus Magnesium Total Bilirubin Direct Bilirubin AST ALT Alkaline Phosphatase Total Creatine Kinase Troponin I High Sens B-Natriuretic Peptide Total Protein Albumin Lipase Urine Color Urine Appearance Urine pH Ur Specific [place] Urine Protein Urine Glucose (UA) Urine Ketones Urine Blood Urine Nitrite Ur Leukocyte Esterase Urine RBC Urine WBC Ur Squamous Epith Cells Urine Bacteria Hyaline Casts Urine Opiates Screen Ur Buprenorphine Scrn Ur Oxycodone Screen Urine Methadone Screen Urine Fentanyl Screen Ur Barbiturates Screen Ur Phencyclidine Scrn Ur Amphetamines Screen U Benzodiazepines Scrn Urine Cocaine Screen U Marijuana (THC) Screen Imaging Radiologist's impression: Impressions Elbow X-Ray 07/11/23 13:28 IMPRESSION: Normal right elbow. Lumbar Spine X-Ray 07/11/23 13:28 IMPRESSION: No fracture or dislocation. Lower lumbar spine facet arthritis. Shoulder X-Ray 07/11/23 13:28 IMPRESSION: No fracture or dislocation. Cervical Spine CT 07/11/23 13:38 IMPRESSION: Limited exam due to motion. C7 vertebral body not completely imaged. Degenerative changes. Repeat exam should be considered if there is high clinical suspicion of injury. Fleischner guidelines were followed. Head CT 07/11/23 13:38 IMPRESSION: No acute findings. Cervical Spine CT 07/11/23 16:40 IMPRESSION: * There is no fracture or subluxation of the degenerated cervical spine. * Mild discovertebral degenerative changes at C4-C5, C5-C6 and C6-C7. * The uncovertebral joint hypertrophy at C3-C4 causes moderate bilateral foraminal stenosis at this level. * Facet arthropathy is worst (moderate in degree) on the right at C4-C5. Venous Duplex 07/12/23 09:00 IMPRESSION: 1. No DVT demonstrated in the right upper extremity. 2. There is superficial thrombophlebitis with thrombus present throughout the right basilic vein. Progress Note: A&P Assessment and plan (1) Elevated troponin: Status: Acute Assessment and Plan: Markedly elevated troponin with preserved LV ejection fraction. Markedly elevated CPK. I think troponin is nonspecific in this setting given significant rhabdomyolysis. At this point time I do not think given lack of symptoms and lack of EKG changes that he requires anticoagulation therapy. Continue supportive care. I would use metoprolol for his elevated heart rate and blood pressure. Once patient has completely recovered from his acute medical illness will pursue stress testing as outpatient. Will sign of the case at this point in time Time Spent With Patient Time: Total time managing care of this patient today ____ minutes. Procedures Date of Service Date of Service: 07/12/23
--- NOTE | 2023-07-12 13:30 | PHA.MEDREC ---
Pharmacy Consult ? Medication Reconciliation Pharmacy has completed the medication reconciliation. spoke with patient to confirm medications. Patient became drowsy towards end of conversation and started to say yes to medications that were last filled over a year ago according to [facility] (not on our claim history). I confirmed medications that were most recently filled. He did confirm he is no longer taking trulicity due to side effects.
[2023-07-12 16:25] LABS: Glucose, Whole Blood 139 mg/dL (60-115)
[2023-07-12 20:57] LABS: Glucose, Whole Blood 115 mg/dL (60-115)
[2023-07-12] MEDS: Heparin Sodium,Porcine 5,000 UNIT/ML VIAL 5000 UNIT SUBCUT (21:06)
[2023-07-13] VITALS (9 sets, daily range): BP systolic 104–134; BP diastolic 47–84; PULSE 84–99; RESP 18–25; TEMP 36.5–37.6; O2SAT 93–96; BMI 49.2
--- NOTE | 2023-07-13 01:53 | PM.CCN ---
Critical Care Event Note Summary Date of Service: 07/13/23 Code activated: No Narrative: This case had a high probability of a clinically significant, sudden, or life threatening deterioration of this patient's condition which required my full and direct attention, intervention and personal management. Critical Care Time (minutes): 5 Comment: Case, chart reviewed, pt seen right now stable, case discussed with Dr. Carreno will transfer to Telemetry. Case discussed with Dr Yarbrough who agrees with transfer.
--- NOTE | 2023-07-13 03:45 | PC.NURSE ---
Handoff report given to receiving RN Sanjuana on s4 at 03:30. Hinojosa catheter discontinued at 03:40 per nursing driven protocol; Sanjuana updated and primofit advised on arrival to s4 (none currently available in ICU). Patient transferred at 03:45 in stable condition with all belongings. Please see shift assessments, tasks, and MAR for full details.
[2023-07-13 07:28] LABS: MANUAL DIFF FLAG NO
[2023-07-13 07:31] LABS: Basophils Percent Auto 0.2 % (0-2); Eosinophils Percent Auto 0.1 % (0-4); Hematocrit 43.5 % (42.0-52.0); Hemoglobin 14.8 g/dl (14.0-18.0); Imm Gran Abs Auto 0.06 X10*3/uL (0.00-0.03); Imm Gran Pct Auto 0.5 % (0.0-0.4); Lymphocytes Absolute Auto 1.2 X10*3/uL (1.2-4.9); Lymphocytes Percent Auto 10.4 % (20-40); Mean Corpuscular Hemoglobin 28.5 pg (27.0-33.0); Mean Corpuscular Volume 83.8 fL (80.0-98.0); Mean Platelet Volume 8.9 fL (9.4-12.4); Monocytes Absolute Auto 0.8 X10*3/uL (0.1-1.2); Monocytes Percent Auto 6.7 % (2-11); Neutrophils Absolute Auto 9.7 x10*3/uL (2.0-8.3); Neutrophils Percent Auto 82.1 % (45-73); Platelet Count 197 X10*3/uL (160-400); Red Blood Count 5.19 X10*6/uL (4.60-5.80); Red Cell Distribution Width 14.2 % (11.0-16.0); White Blood Count 11.8 X10*3/uL (4.8-10.8)
[2023-07-13 07:33] LABS: Venous Blood Gas Refer to POC result
[2023-07-13 07:34] LABS: VBG Base Excess -7.1 mmol/L; VBG HCO3 16 mmol/L (22-26); VBG pCO2 28 mmHg; VBG pH 7.37 (7.32-7.43); VBG pO2 68 mmHg
[2023-07-13 07:40] LABS: Glucose, Whole Blood 113 mg/dL (60-115)
[2023-07-13 07:55] LABS: Alanine Aminotransferase 646 U/L (0-40); Albumin Level 3.2 g/dL (3.5-5.0); Alkaline Phosphatase 91 U/L (39-117); Anion Gap 26 (12-20); Aspartate Amino Transferase 933 U/L (5-37); Bilirubin Total 0.6 mg/dL (0.0-1.0); Blood Urea Nitrogen 95 mg/dL (9-16); Calcium 6.5 mg/dL (8.4-10.2); Carbon Dioxide 15 mmol/L (22-29); Chloride 95 mmol/L (96-108); Creatinine Clr Calc Pharmacy 14.5; Estimated Glomerular Filt Rate 7; Glucose Random 100 mg/dL (60-115); Potassium 5.5 mmol/L (3.3-5.1); Sodium 130 mmol/L (135-145); Total Protein 6.2 g/dL (6.5-8.0)
--- NOTE | 2023-07-13 08:08 | PC.NURSE ---
Pt arrived to unit and oriented to staff/unit. Discussed his condition and plan of care. Pt states his R ear feels numb and weird since fall. no visible injury, able to feel light touch. Pt weak states his R arm feels weaker since the fall at home. no appreciable difference noted in exam. weak hand grasp and dorsiflexion. [place] cath applied. No u/o thus far. Pt somewhat vague but cooperative. Pt arrived with belongings and a substantial amount of hartley which was locked in [employer] w/security with 2nd RN witness as pt too tired to participate.
--- NOTE | 2023-07-13 08:18 | MHC.CM.PN ---
CM met with Patient at bedside and addressed IMM with him verbally(patient stated he was not up to signing);original was given to him and a copy has been placed on the chart. Patient lives alone in an apartment, had no services [employer], and uses a walker to assist with mobility. Patient may benefit from a PT Eval to assist with disposition. PCP is from [facility]. Patient declined HCP.
[2023-07-13 10:29] LABS: HBS Num1 2.22 mIU/mL (0-7.99); HBc Num1 0.07 S/CO (0.00-0.79); HBsAGNum1 0.26 S/CO (0.00-0.99); Hepatitis B Core Antibody Nonreactive (Nonreactive); Hepatitis B Surface Antigen Negative (Negative); ~Hepatitis B Surface Antibody NONREACTIVE (Nonreactive)
--- NOTE | 2023-07-13 10:38 | P.PNNP_ITS ---
Subjective Subjective Date of Service: 07/15/23 Principal diagnosis: Elevated troponins Interval history: Events noted. Transferred out of ICU. Oliguric. Potassium was up to 5.5. Physical Exam 2 Vital Signs: Vital Signs: Last Vital Signs Temp 97.7 F 07/13/23 07:46 Pulse 93 07/13/23 07:46 Resp 20 07/13/23 07:46 BP 131/72 07/13/23 07:46 Pulse Ox 93 07/13/23 07:46 O2 Del Method Room Air 07/13/23 07:46 BMI result Body Mass Index 49.2 Const: General: ill appearing Neck: Neck: Yes supple Resp: Auscultation: clear to auscultation bilaterally Cardio: Palpation: no palpable S3 Heart sounds: no rubs GI: Palpation (GI): Soft to palpation Auscultation: normal bowel sounds Neuro: Motor exam (neuro): no asterixis Objective Data Labs 07/15/23 08:24 07/15/23 08:24 Labs: Laboratory Results - last 24 hr 07/12/23 07/12/23 07/12/23 11:37 16:21 20:54 WBC RBC Hgb Hct MCV MCH MCHC RDW Plt Count MPV Immature Gran % (Auto) Neut % (Auto) Lymph % (Auto) [place] % (Auto) Eos % (Auto) Baso % (Auto) Lymph # (Auto) [place] # (Auto) Eos # (Auto) Baso # (Auto) Abs Immat Gran (auto) Absolute Neuts (auto) Absolute Nucleated RBC Nucleated RBC % (auto) VBG pH VBG pCO2 VBG pO2 VBG HCO3 VBG O2 Saturation VBG Base Excess Sodium Potassium Chloride Carbon Dioxide Anion Gap BUN Creatinine Estim Creat Clear Calc Estimated GFR POC Glucose 153 H 139 H 115 Random Glucose Calcium Total Bilirubin AST ALT Alkaline Phosphatase Total Protein Albumin 07/13/23 07/13/23 07/13/23 07:20 07:26 07:27 WBC 11.8 H RBC 5.19 Hgb 14.8 Hct 43.5 MCV 83.8 MCH 28.5 MCHC 34.0 RDW 14.2 Plt Count 197 MPV 8.9 L Immature Gran % (Auto) 0.5 H Neut % (Auto) 82.1 H Lymph % (Auto) 10.4 L [place] % (Auto) 6.7 Eos % (Auto) 0.1 Baso % (Auto) 0.2 Lymph # (Auto) 1.2 [place] # (Auto) 0.8 Eos # (Auto) 0.0 Baso # (Auto) 0.0 Abs Immat Gran (auto) 0.06 H Absolute Neuts (auto) 9.7 H Absolute Nucleated RBC 0.000 Nucleated RBC % (auto) 0.0 VBG pH 7.37 VBG pCO2 28 VBG pO2 68 VBG HCO3 16 L VBG O2 Saturation 88.0 VBG Base Excess -7.1 Sodium 130 L Potassium 5.5 H Chloride 95 L Carbon Dioxide 15 L Anion Gap 26 H BUN 95 H Creatinine 8.40 H* Estim Creat Clear Calc 14.5 Estimated GFR 7 POC Glucose 113 Random Glucose 100 Calcium 6.5 L Total Bilirubin 0.6 AST 933 H ALT 646 H Alkaline Phosphatase 91 Total Protein 6.2 L Albumin 3.2 L Microbiology Microbiology Results: Microbiology 07/12/23 Unknown Urine Catheterized - Straight Catheter Urine Culture - Preliminary No growth to date. Procedures Date of Service Date of Service: 07/15/23 Assessment & Plan Assessment and plan (1) Acute renal failure: Status: Acute Plan CHITO and severe hyperkalemia due to rhabdomyolysis. He has tubular injury due to rhabdomyolysis. Currently oliguric. Hyperkalemia At this point he has no signs of renal recovery yet. Watch urine output closely. Given hyperkalemia and worsening renal function he will need dialysis. Discussed with hospitalist team and he needs temporary dialysis catheter. Once catheter is inserted I will arrange for dialysis today. Time Spent With Patient Time: Total time managing care of this patient today ____ minutes.
--- NOTE | 2023-07-13 10:46 | HO.PM.IMPN ---
Subjective Subjective Date of Service: 07/13/23 Interval History: Seen and evaluated this morning reporting all over pain in his muscles not making urine edematous Cr and BUN keep going up Review of Systems Review of Systems: Yes all other systems are reviewed and are negative Physical Exam Vital Signs: Vital Signs: Last Vital Signs Temp 97.7 F 07/13/23 07:46 Pulse 93 07/13/23 07:46 Resp 20 07/13/23 07:46 BP 131/72 07/13/23 07:46 Pulse Ox 93 07/13/23 07:46 O2 Del Method Room Air 07/13/23 07:46 BMI result Body Mass Index 49.2 Const: Other: Constitutional : Awake, interactive, morbidly obese, in mild distress Neck : Normal inspection, Supple Cardiovascular : RRR, no JVP, +1 bilateral lower extremity edema Respiratory : good bilateral air entry, no crackles, no wheezes or rhonchi Gastrointestinal: soft, lax, Normal bowel sounds, Non tender Skin : Warm, Dry Neurological : Alert & oriented x3, No focal deficit Objective Data Active Medications Acetaminophen (Acetaminophen 325 Mg Tablet) 650 mg PO Q4H PRN PRN Reason: Pain, Moderate(Pain Scale 4-6) Last Admin: 07/12/23 16:06 Dose: 650 mg Documented By: JR Heparin Sodium (Porcine) (Heparin Sodium,Porcine 5,000 Unit/Ml Vial) 5,000 unit SUBCUT TID [facility] Last Admin: 07/13/23 09:21 Dose: Not Given Documented By: TIA Non-Admin Reason: Patient Refused Dextrose (D10) 250 mls @ 750 mls/hr IV Q15M PRN PRN Reason: per Hypoglycemia Standing Ord. Dextrose (D10) 250 mls @ 750 mls/hr IV Q15M PRN PRN Reason: per Hypoglycemia Standing Ord. Insulin Human Lispro (Insulin Lispro 100 Unit/Ml 3 Ml Vial) 0 unit SUBCUT QIDACHS [facility]; Protocol Last Admin: 07/13/23 07:59 Dose: Not Given Documented By: TIA Non-Admin Reason: No Insulin Coverage Labs 07/13/23 07:20 07/13/23 07:20 Labs: Laboratory Results - last 24 hr 07/12/23 07/12/23 07/12/23 11:37 16:21 20:54 MCV MCH MCHC RDW Plt Count MPV Immature Gran % (Auto) Neut % (Auto) Lymph % (Auto) [place] % (Auto) Eos % (Auto) Baso % (Auto) Lymph # (Auto) [place] # (Auto) Eos # (Auto) Baso # (Auto) Abs Immat Gran (auto) Absolute Neuts (auto) Absolute Nucleated RBC Nucleated RBC % (auto) VBG pH VBG pCO2 VBG pO2 VBG HCO3 VBG O2 Saturation VBG Base Excess Anion Gap Estim Creat Clear Calc Estimated GFR POC Glucose 153 H 139 H 115 Random Glucose Calcium Total Bilirubin AST ALT Alkaline Phosphatase Total Protein Albumin 07/13/23 07/13/23 07/13/23 07:20 07:26 07:27 MCV 83.8 MCH 28.5 MCHC 34.0 RDW 14.2 Plt Count 197 MPV 8.9 L Immature Gran % (Auto) 0.5 H Neut % (Auto) 82.1 H Lymph % (Auto) 10.4 L [place] % (Auto) 6.7 Eos % (Auto) 0.1 Baso % (Auto) 0.2 Lymph # (Auto) 1.2 [place] # (Auto) 0.8 Eos # (Auto) 0.0 Baso # (Auto) 0.0 Abs Immat Gran (auto) 0.06 H Absolute Neuts (auto) 9.7 H Absolute Nucleated RBC 0.000 Nucleated RBC % (auto) 0.0 VBG pH 7.37 VBG pCO2 28 VBG pO2 68 VBG HCO3 16 L VBG O2 Saturation 88.0 VBG Base Excess -7.1 Anion Gap 26 H Estim Creat Clear Calc 14.5 Estimated GFR 7 POC Glucose 113 Random Glucose 100 Calcium 6.5 L Total Bilirubin 0.6 AST 933 H ALT 646 H Alkaline Phosphatase 91 Total Protein 6.2 L Albumin 3.2 L Microbiology Microbiology Results: Microbiology 07/12/23 Unknown Urine Culture - Preliminary Urine Catheterized - Straight Catheter No growth to date. Assessment and Plan (1) Elevated lactic acid level: Status: Acute (2) Fall: Status: Acute (3) Acute renal failure: Status: Acute (4) Hyperkalemia: Status: Acute (5) Transaminitis: Status: Acute (6) Elevated troponin: Status: Acute (7) Rhabdomyolysis: Status: Acute Plan 53 years old male with PMH of DM2, HTN, Asthma who presented to ED After sustaining a fall and laying on the floor for 9 hours with acute kidney injury from rhabdomyolysis. CHITO and severe hyperkalemia and metabolic acidosis due to rhabdomyolysis. ATN from rhabdo Worsening Cr and BUN to 8.4 and 95 Oligouric , follow I\O Lokelmt for Hyperkalemia management With no signs of improvement and worsening CHITO and Hyperkalemia he will need Temp dialysis catheter placed to start HD today Nephrology team following Fall CT head/cervical spine negative? for acute findings To do PT upon improvement Acute?Rhabdomyolysis 2/2 fall and long stay on floor CK? elevated >4227 Received x 3 L fluids and Started on Bicarb drip with 150meq at 150/hr with no improvement ?Elevated troponin EKG did not show clear ischemic changes Cardiology? thinks elevated troponin is related to rhabdomyolysis. Echo was done Will do outpatient ischemic work up per cardiology team Acute lactic acidosis in the setting of rhabdo and renal failure not due to severe sepsis Acute transaminitis 2/2 Rhabdo Improving , trending down follow LFT history of hypertension, Hold Meds for now history of diabetes-? SSI DVT PPx Heparin The patient will need overnight stay for treatment of renal failure by placing dialysis catheter and starting dialysis with close monitoring of kidney function Quality Stroke Does the patient have a stroke diagnosis?: No VTE Prior VTE?: No VTE Risk Level:: Medical - moderate - high VTE Device Contraindication: N/A - Device Ordered VTE Drug Contraindication: N/A - Med Ordered
[2023-07-13 11:41] LABS: Glucose, Whole Blood 123 mg/dL (60-115)
[2023-07-13] MEDS: Acetaminophen 325 MG TABLET 650 MG PO (12:18)
[2023-07-13] MEDS: Lidocaine 4 % Patch ADH..PATCH 1 PATCH TRANSDERMA (12:19)
[2023-07-13] MEDS: Sodium Zirconium Cyclosilicate 10 GM POWD.PACK PO (12:19)
[2023-07-13 16:20] LABS: Glucose, Whole Blood 104 mg/dL (60-115)
[2023-07-13 20:22] LABS: Glucose, Whole Blood 145 mg/dL (60-115)
[2023-07-13] MEDS: Heparin Sodium,Porcine 5,000 UNIT/ML VIAL 5000 UNIT SUBCUT (21:54)
[2023-07-14] VITALS: BP 114/71; PULSE 92; RESP 24; TEMP 36.2; O2SAT 94
[2023-07-14 03:44] VITALS: BP 102/68; PULSE 90; RESP 24; TEMP 36.6; O2SAT 96
[2023-07-14 06:34] LABS: Hematocrit 42.6 % (42.0-52.0); Hemoglobin 14.4 g/dl (14.0-18.0); Mean Corpuscular HGB Conc 33.8 g/dl (31.0-36.0); Mean Corpuscular Hemoglobin 28.5 pg (27.0-33.0); Mean Corpuscular Volume 84.2 fL (80.0-98.0); Mean Platelet Volume 8.9 fL (9.4-12.4); Platelet Count 165 X10*3/uL (160-400); Red Blood Count 5.06 X10*6/uL (4.60-5.80); Red Cell Distribution Width 14.3 % (11.0-16.0); White Blood Count 9.9 X10*3/uL (4.8-10.8)
[2023-07-14 06:51] LABS: B Type Natriuretic Peptide < 10 pg/mL (<100)
[2023-07-14 06:56] LABS: Alanine Aminotransferase 571 U/L (0-40); Albumin Level 3.2 g/dL (3.5-5.0); Alkaline Phosphatase 89 U/L (39-117); Anion Gap 24 (12-20); Aspartate Amino Transferase 747 U/L (5-37); Bilirubin Direct 0.2 mg/dL (0.0-0.5); Bilirubin Total 0.7 mg/dL (0.0-1.0); Blood Urea Nitrogen 94 mg/dL (9-16); Calcium 6.5 mg/dL (8.4-10.2); Carbon Dioxide 15 mmol/L (22-29); Chloride 96 mmol/L (96-108); Creatinine Clr Calc Pharmacy 14.2; Estimated Glomerular Filt Rate 7; Glucose Random 90 mg/dL (60-115); Potassium 5.3 mmol/L (3.3-5.1); Sodium 130 mmol/L (135-145); Total Protein 6.2 g/dL (6.5-8.0)
[2023-07-14 07:12] LABS: Glucose, Whole Blood 100 mg/dL (60-115)
[2023-07-14 07:52] VITALS: BP 125/72; PULSE 79; RESP 20; TEMP 36.7; O2SAT 95
--- NOTE | 2023-07-14 10:17 | MHC.CM.PN ---
Per ROUNDS discussion, Patient is not yet medically cleared for dc (new HD); Patient will need a PT Eval to assist with disposition.CM will follow.
--- NOTE | 2023-07-14 10:34 | HO.PM.IMPN ---
Subjective Subjective Date of Service: 07/14/23 Interval History: Continues to be anuric Physical Exam Vital Signs: Vital Signs: Last Vital Signs Temp 98.1 F 07/14/23 07:52 Pulse 79 07/14/23 07:52 Resp 20 07/14/23 07:52 BP 125/72 07/14/23 07:52 Pulse Ox 95 07/14/23 07:52 O2 Del Method Room Air 07/14/23 07:52 BMI result Body Mass Index 49.2 Const: Other: Constitutional : Awake, interactive, morbidly obese, in mild distress Neck : Normal inspection, Supple Cardiovascular : RRR, no JVP, +1 bilateral lower extremity edema Respiratory : good bilateral air entry, no crackles, no wheezes or rhonchi Gastrointestinal: soft, lax, Normal bowel sounds, Non tender Skin : Warm, Dry Neurological : Alert & oriented x3, No focal deficit Objective Data Active Medications Acetaminophen (Acetaminophen 325 Mg Tablet) 650 mg PO Q4H PRN PRN Reason: Pain, Moderate(Pain Scale 4-6) Last Admin: 07/13/23 12:18 Dose: 650 mg Documented By: DINORA Fluticasone Propionate (Fluticasone Propionate Nasal 16 Gm [place]) 2 spray NOSTRIL-B DAILY [facility] Last Admin: 07/13/23 12:30 Dose: Not Given Documented By: DINORA Non-Admin Reason: Patient Refused Heparin Sodium (Porcine) (Heparin Sodium,Porcine 5,000 Unit/Ml Vial) 5,000 unit SUBCUT TID [facility] Last Admin: 07/13/23 21:54 Dose: 5,000 unit Documented By: CARL Heparin Sodium (Porcine) (Heparin Sodium,Porcine 5,000 Unit/Ml Vial) 5,000 unit INTRACATH ONCE ONE Stop: 07/15/23 06:01 Dextrose (D10) 250 mls @ 750 mls/hr IV Q15M PRN PRN Reason: per Hypoglycemia Standing Ord. Dextrose (D10) 250 mls @ 750 mls/hr IV Q15M PRN PRN Reason: per Hypoglycemia Standing Ord. Insulin Human Lispro (Insulin Lispro 100 Unit/Ml 3 Ml Vial) 0 unit SUBCUT QIDACHS [facility]; Protocol Last Admin: 07/14/23 08:10 Dose: Not Given Documented By: NARCISA Non-Admin Reason: No Insulin Coverage Lidocaine (Lidocaine 4 % Patch Adh..Patch) 1 patch TRANSDERMA DAILY [facility] Last Admin: 07/13/23 12:19 Dose: 1 patch Documented By: DINORA Labs 07/14/23 06:08 07/14/23 06:08 Labs: Laboratory Results - last 24 hr 07/13/23 07/13/23 07/13/23 09:37 11:32 16:16 MCV MCH MCHC RDW Plt Count MPV Absolute Nucleated RBC Nucleated RBC % (auto) Anion Gap Estim Creat Clear Calc Estimated GFR POC Glucose 123 H 104 Random Glucose Calcium Total Bilirubin Direct Bilirubin AST ALT Alkaline Phosphatase Total Creatine Kinase B-Natriuretic Peptide Total Protein Albumin Hep Bs Antigen Negative Hep Bs Antibody NONREACTIVE Hep B Core Total Ab Nonreactive 07/13/23 07/14/23 07/14/23 20:18 06:08 07:07 MCV 84.2 MCH 28.5 MCHC 33.8 RDW 14.3 Plt Count 165 MPV 8.9 L Absolute Nucleated RBC 0.000 Nucleated RBC % (auto) 0.0 Anion Gap 24 H Estim Creat Clear Calc 14.2 Estimated GFR 7 POC Glucose 145 H 100 Random Glucose 90 Calcium 6.5 L Total Bilirubin 0.7 Direct Bilirubin 0.2 AST 747 H ALT 571 H Alkaline Phosphatase 89 Total Creatine Kinase > 47665 H B-Natriuretic Peptide < 10 Total Protein 6.2 L Albumin 3.2 L Hep Bs Antigen Hep Bs Antibody Hep B Core Total Ab Microbiology Microbiology Results: Microbiology 07/12/23 12:30 Blood Culture - Preliminary Blood - Venous No growth after 24 hours. 07/12/23 12:15 Blood Culture - Preliminary Blood - Venous No growth after 24 hours. 07/12/23 Unknown Urine Culture - Preliminary Urine Catheterized - Straight Catheter No growth to date. Assessment and Plan (1) Elevated lactic acid level: Status: Acute (2) Fall: Status: Acute (3) Acute renal failure: Status: Acute (4) Hyperkalemia: Status: Acute (5) Transaminitis: Status: Acute (6) Elevated troponin: Status: Acute (7) Rhabdomyolysis: Status: Acute Plan 53 years old male with PMH of DM2, HTN, Asthma who presented to ED After sustaining a fall and laying on the floor for 9 hours found to have severe acute kidney injury from rhabdomyolysis. And hyperkalemia CHITO and severe hyperkalemia and acute metabolic acidosis due to rhabdomyolysis. ATN from rhabdo has right IJ temporary HD catheter Nephrology team following Hyperkalemia resolved Fall CT head/cervical spine negative? for acute findings To do PT upon improvement Acute?Rhabdomyolysis 2/2 fall and long stay on floor CK? elevated >70599 Received x 3 L fluids and Started on Bicarb drip with 150meq at 150/hr with no improvement, continue to monitor ?Elevated troponin EKG did not show clear ischemic changes Cardiology? thinks elevated troponin is related to rhabdomyolysis. Echo was done Will do outpatient ischemic work up per cardiology team Acute lactic acidosis in the setting of rhabdo and renal failure not due to severe sepsis history of hypertension, Hold Meds for now - normal BP history of diabetes-? SSI DVT PPx Heparin reason for continued hospitalization: Need for dialysis, temporary catheter, awaiting return of renal function versus set up outpatient dialysis Quality Stroke Does the patient have a stroke diagnosis?: No VTE Prior VTE?: No VTE Risk Level:: Medical - moderate - high VTE Device Contraindication: N/A - Device Ordered VTE Drug Contraindication: N/A - Med Ordered
[2023-07-14 13:59] LABS: Glucose, Whole Blood 94 mg/dL (60-115)
[2023-07-14 14:00] VITALS: BP 123/67; PULSE 97; RESP 20; TEMP 36.4; O2SAT 95
[2023-07-14] MEDS: Heparin Sodium,Porcine 5,000 UNIT/ML VIAL 5000 UNIT SUBCUT ×2 (14:30→20:41)
[2023-07-14 15:21] VITALS: BP 121/73; PULSE 100; RESP 18; TEMP 36.3; O2SAT 95
[2023-07-14 16:30] LABS: Glucose, Whole Blood 132 mg/dL (60-115)
[2023-07-14] MEDS: oxyCODONE HCl Immed Release 5 MG TABLET PO (17:09)
[2023-07-14 19:24] VITALS: BP 100/59; PULSE 100; RESP 20; TEMP 36.4; O2SAT 95
[2023-07-14 20:14] LABS: Glucose, Whole Blood 105 mg/dL (60-115)
--- NOTE | 2023-07-14 21:17 | P.PNNP_ITS ---
Subjective Subjective Date of Service: 07/14/23 Principal diagnosis: Elevated troponins Interval history: Continues to be anuric; All recent data reviewed; D/W HD RN and Hospitalist Physical Exam 2 Vital Signs: Vital Signs: Last Vital Signs Temp 97.5 F 07/14/23 19:24 Pulse 100 07/14/23 19:24 Resp 20 07/14/23 19:24 BP 100/59 L 07/14/23 19:24 Pulse Ox 95 07/14/23 19:24 O2 Del Method Room Air 07/14/23 19:24 BMI result Body Mass Index 49.2 Const: General: no acute distress Eyes: EOM: EOMs intact bilaterally Resp: Auscultation: diminished lung sounds Cardio: Rate: regular rate GI: Palpation (GI): Soft to palpation Neuro: General: moves all extremities Objective Data Labs 07/14/23 06:08 07/14/23 06:08 Labs: Laboratory Results - last 24 hr 07/14/23 07/14/23 07/14/23 06:08 07:07 13:52 WBC 9.9 RBC 5.06 Hgb 14.4 Hct 42.6 MCV 84.2 MCH 28.5 MCHC 33.8 RDW 14.3 Plt Count 165 MPV 8.9 L Absolute Nucleated RBC 0.000 Nucleated RBC % (auto) 0.0 Sodium 130 L Potassium 5.3 H Chloride 96 Carbon Dioxide 15 L Anion Gap 24 H BUN 94 H Creatinine 8.53 H* Estim Creat Clear Calc 14.2 Estimated GFR 7 POC Glucose 100 94 Random Glucose 90 Calcium 6.5 L Total Bilirubin 0.7 Direct Bilirubin 0.2 AST 747 H ALT 571 H Alkaline Phosphatase 89 Total Creatine Kinase > 95868 H B-Natriuretic Peptide < 10 Total Protein 6.2 L Albumin 3.2 L 07/14/23 07/14/23 16:27 20:11 WBC RBC Hgb Hct MCV MCH MCHC RDW Plt Count MPV Absolute Nucleated RBC Nucleated RBC % (auto) Sodium Potassium Chloride Carbon Dioxide Anion Gap BUN Creatinine Estim Creat Clear Calc Estimated GFR POC Glucose 132 H 105 Random Glucose Calcium Total Bilirubin Direct Bilirubin AST ALT Alkaline Phosphatase Total Creatine Kinase B-Natriuretic Peptide Total Protein Albumin Microbiology Microbiology Results: Microbiology 07/12/23 12:15 Blood - Venous Blood Culture - Preliminary No growth after 48 hours. 07/12/23 12:30 Blood - Venous Blood Culture - Preliminary No growth after 48 hours. 07/12/23 Unknown Urine Catheterized - Straight Catheter Urine Culture - Final No growth. 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 Initiated HD yesterday; Was given HD today; Due tomorrow Monitor function for renal recovery; C/W rest of current management Progress Note: Quality Stroke Does the patient have a stroke diagnosis?: No
[2023-07-15] VITALS: BP 111/63; PULSE 95; RESP 21; TEMP 36.4; O2SAT 94
[2023-07-15 04:00] VITALS: BP 122/56; PULSE 99; RESP 20; TEMP 36.3; O2SAT 94
[2023-07-15 07:35] VITALS: BP 102/59; PULSE 87; RESP 20; TEMP 36.9; O2SAT 97
[2023-07-15 07:37] LABS: Glucose, Whole Blood 102 mg/dL (60-115)
[2023-07-15 08:36] LABS: Hematocrit 44.8 % (42.0-52.0); Mean Corpuscular HGB Conc 33.5 g/dl (31.0-36.0); Mean Corpuscular Hemoglobin 28.6 pg (27.0-33.0); Mean Corpuscular Volume 85.5 fL (80.0-98.0); Mean Platelet Volume 9.1 fL (9.4-12.4); Platelet Count 154 X10*3/uL (160-400); Red Blood Count 5.24 X10*6/uL (4.60-5.80); Red Cell Distribution Width 14.4 % (11.0-16.0); White Blood Count 9.6 X10*3/uL (4.8-10.8)
--- NOTE | 2023-07-15 08:39 | P.CDIM_ITS ---
PROVIDER RESPONSE TEXT: To clarify, the appropriate diagnosis supported by the clinical indicators: Hyponatremia QUERY TEXT: PHYSICIAN'S DOCUMENTATION REQUEST Date of Query: 07/14/2023 11:45 AM EDT Patient Name: Jason Martinez Admit Date: 07/12/2023 Dear Wilfredo Roy, A review of the medical record indicates additional documentation may be needed. Please review below and update the documentation accordingly. Clinical Indicators: LABS 6/5 - sodium 130 L Based on the above, is there a diagnosis that correlates with these lab findings: Hyponatremia Labs indicate a diagnosis of (please specify) Other (explain) Clinically unable to determine (explain) Thank you, Sonal Weinstein, CCS, CDIS Use of terms such as suspected, likely, concern for, or probable (associated with a specific diagnosi s that is being evaluated, monitored, or treated as if it exists) are acceptable and can be coded in the inpatient se tting, when documented at the time of discharge. Please use your independent medical judgment in providing your response. THIS QUERY IS PART OF THE PERMANENT MEDICAL RECORD
[2023-07-15] MEDS: Heparin Sodium,Porcine 5,000 UNIT/ML VIAL 5000 UNIT SUBCUT ×3 (08:45→20:51)
[2023-07-15] MEDS: Lidocaine 4 % Patch ADH..PATCH 1 PATCH TRANSDERMA (08:48)
[2023-07-15 08:55] LABS: Anion Gap 26 (12-20); Blood Urea Nitrogen 95 mg/dL (9-16); Calcium 6.5 mg/dL (8.4-10.2); Carbon Dioxide 16 mmol/L (22-29); Chloride 96 mmol/L (96-108); Creatinine Clr Calc Pharmacy 14.8; Estimated Glomerular Filt Rate 7; Glucose Fasting 137 mg/dL (60-99); Potassium 5.1 mmol/L (3.3-5.1); Sodium 133 mmol/L (135-145)
--- NOTE | 2023-07-15 09:11 | P.PNIM_ITS ---
Subjective Subjective Date of Service: 07/15/23 Interval History: anuric Physical Exam 2 Vital Signs: Vital Signs: Last Vital Signs Temp 98.4 F 07/15/23 07:35 Pulse 87 07/15/23 07:35 Resp 20 07/15/23 07:35 BP 102/59 L 07/15/23 07:35 Pulse Ox 97 07/15/23 07:35 O2 Del Method Room Air 07/15/23 07:35 BMI result Body Mass Index 49.2 Const: General: no acute distress Eyes: EOM: EOMs intact bilaterally Resp: Auscultation: diminished lung sounds Cardio: Rate: regular rate GI: Palpation (GI): Soft to palpation Neuro: General: moves all extremities Objective Data Active Medications Acetaminophen (Acetaminophen 325 Mg Tablet) 650 mg PO Q4H PRN PRN Reason: Pain, Moderate(Pain Scale 4-6) Last Admin: 07/13/23 12:18 Dose: 650 mg Documented By: DINORA Fluticasone Propionate (Fluticasone Propionate Nasal 16 Gm [place]) 2 spray NOSTRIL-B DAILY [facility] Last Admin: 07/15/23 08:51 Dose: Not Given Documented By: BRENT Non-Admin Reason: Med Not Available Heparin Sodium (Porcine) (Heparin Sodium,Porcine 5,000 Unit/Ml Vial) 5,000 unit SUBCUT TID [facility] Last Admin: 07/15/23 08:45 Dose: 5,000 unit Documented By: BRENT Dextrose (D10) 250 mls @ 750 mls/hr IV Q15M PRN PRN Reason: per Hypoglycemia Standing Ord. Dextrose (D10) 250 mls @ 750 mls/hr IV Q15M PRN PRN Reason: per Hypoglycemia Standing Ord. Insulin Human Lispro (Insulin Lispro 100 Unit/Ml 3 Ml Vial) 0 unit SUBCUT QIDACHS [facility]; Protocol Last Admin: 07/15/23 08:40 Dose: Not Given Documented By: BRENT Non-Admin Reason: No Insulin Coverage Lidocaine (Lidocaine 4 % Patch Adh..Patch) 1 patch TRANSDERMA DAILY [facility] Last Admin: 07/15/23 08:48 Dose: 1 patch Documented By: BRENT Labs 07/15/23 08:24 07/15/23 08:24 Labs: Laboratory Results - last 24 hr 06/07/0107/14/23 07/14/23 13:52 16:27 20:11 MCV MCH MCHC RDW Plt Count MPV Absolute Nucleated RBC Nucleated RBC % (auto) Anion Gap Estim Creat Clear Calc Estimated GFR POC Glucose 94 132 H 105 Fasting Glucose Calcium 07/15/23 07/15/23 07:34 08:24 MCV 85.5 MCH 28.6 MCHC 33.5 RDW 14.4 Plt Count 154 L MPV 9.1 L Absolute Nucleated RBC 0.000 Nucleated RBC % (auto) 0.0 Anion Gap 26 H Estim Creat Clear Calc 14.8 Estimated GFR 7 POC Glucose 102 Fasting Glucose 137 H Calcium 6.5 L Microbiology Microbiology Results: Microbiology 07/12/23 12:15 Blood Culture - Preliminary Blood - Venous No growth after 48 hours. 07/12/23 12:30 Blood Culture - Preliminary Blood - Venous No growth after 48 hours. 07/12/23 Unknown Urine Culture - Final Urine Catheterized - Straight Catheter No growth. Assessment and Plan (1) Elevated lactic acid level: Status: Acute (2) Fall: Status: Acute (3) Acute renal failure: Status: Acute (4) Hyperkalemia: Status: Acute (5) Transaminitis: Status: Acute (6) Elevated troponin: Status: Acute (7) Rhabdomyolysis: Status: Acute Plan 53 years old male with PMH of DM2, HTN, Asthma who presented to ED After sustaining a fall and laying on the floor for 9 hours found to have severe acute kidney injury from rhabdomyolysis. And hyperkalemia CHITO and severe hyperkalemia and acute metabolic acidosis due to rhabdomyolysis. ATN from rhabdo has right IJ temporary HD catheter Nephrology team following Hyperkalemia resolved Fall CT head/cervical spine negative? for acute findings To do PT upon improvement Acute?Rhabdomyolysis 2/2 fall and long stay on floor CK? elevated >25848 Received x 3 L fluids and Started on Bicarb drip with 150meq at 150/hr with no improvement, continue to monitor ?Elevated troponin EKG did not show clear ischemic changes Cardiology? thinks elevated troponin is related to rhabdomyolysis. Will do outpatient ischemic work up per cardiology team Acute lactic acidosis in the setting of rhabdo and renal failure not due to severe sepsis history of hypertension, Hold Meds for now - normal BP history of diabetes-? SSI DVT PPx Heparin reason for continued hospitalization: Need for dialysis, temporary catheter, awaiting return of renal function versus set up outpatient dialysis Quality Stroke Does the patient have a stroke diagnosis?: No VTE Prior VTE?: No VTE Risk Level:: Medical - moderate - high VTE Device Contraindication: N/A - Device Ordered VTE Drug Contraindication: N/A - Med Ordered
--- NOTE | 2023-07-15 10:37 | W.PM.DNNEP ---
Subjective Subjective Date of Service: 07/15/23 Principal diagnosis: Elevated troponins This patient was seen during dialysis. Interval history: anuric Physical Exam Vital Signs: Vital Signs: Last Vital Signs Temp 98.4 F 07/15/23 07:35 Pulse 87 07/15/23 07:35 Resp 20 07/15/23 07:35 BP 102/59 L 07/15/23 07:35 Pulse Ox 97 07/15/23 07:35 O2 Del Method Room Air 07/15/23 07:35 BMI result Body Mass Index 49.2 Const: General: ill appearing Neck: Neck: Yes supple Resp: Auscultation: clear to auscultation bilaterally Cardio: Palpation: no palpable S3 Heart sounds: no rubs GI: Palpation (GI): Soft to palpation Auscultation: normal bowel sounds Neuro: Motor exam (neuro): no asterixis Assessment & Plan Assessment and plan (1) Acute renal failure: Status: Acute Plan CHITO and severe hyperkalemia due to rhabdomyolysis. He has tubular injury due to rhabdomyolysis. Currently oliguric. Hyperkalemia At this point he has no signs of renal recovery yet. Watch urine output closely. Given hyperkalemia and non recovery of renal function he will need dialysis. Agree with switching to a tunneled catheter to continue dialysis until renal recovery Discussed with hospitalist team Time Spent With Patient Time: Total time managing care of this patient today ____ minutes. Procedures Date of Service Date of Service: 07/15/23
[2023-07-15 11:27] LABS: Glucose, Whole Blood 119 mg/dL (60-115)
[2023-07-15 15:13] VITALS: BP 119/59; PULSE 86; RESP 20; TEMP 36.4; O2SAT 96
[2023-07-15 16:38] LABS: Glucose, Whole Blood 126 mg/dL (60-115)
[2023-07-15 19:14] VITALS: BP 113/69; PULSE 94; RESP 20; TEMP 36.3; O2SAT 94
[2023-07-15 19:45] LABS: Glucose, Whole Blood 130 mg/dL (60-115)
[2023-07-15 23:32] VITALS: BP 135/59; PULSE 94; RESP 16; TEMP 36; O2SAT 95
[2023-07-16 03:41] VITALS: BP 98/53; PULSE 99; RESP 16; TEMP 36; O2SAT 97
[2023-07-16 06:50] LABS: Hematocrit 44.9 % (42.0-52.0); Hemoglobin 15.3 g/dl (14.0-18.0); Mean Corpuscular HGB Conc 34.1 g/dl (31.0-36.0); Mean Corpuscular Hemoglobin 28.8 pg (27.0-33.0); Mean Corpuscular Volume 84.4 fL (80.0-98.0); Mean Platelet Volume 9.1 fL (9.4-12.4); Platelet Count 164 X10*3/uL (160-400); Red Blood Count 5.32 X10*6/uL (4.60-5.80); Red Cell Distribution Width 14.2 % (11.0-16.0); White Blood Count 12.3 X10*3/uL (4.8-10.8)
[2023-07-16 07:01] LABS: Glucose, Whole Blood 111 mg/dL (60-115)
[2023-07-16 07:10] VITALS: BP 117/70; PULSE 94; RESP 20; TEMP 36.3; O2SAT 96
[2023-07-16 07:11] LABS: Anion Gap 22 (12-20); Blood Urea Nitrogen 89 mg/dL (9-16); Calcium 7.1 mg/dL (8.4-10.2); Carbon Dioxide 20 mmol/L (22-29); Chloride 96 mmol/L (96-108); Creatinine Clr Calc Pharmacy 15.1; Estimated Glomerular Filt Rate 7; Glucose Fasting 106 mg/dL (60-99); Potassium 4.8 mmol/L (3.3-5.1); Sodium 133 mmol/L (135-145)
--- NOTE | 2023-07-16 08:04 | P.CDIM_ITS ---
PROVIDER RESPONSE TEXT: To clarify, the appropriate diagnosis supported by the clinical indicators: Pressure Injury left buttock Stage 2 QUERY TEXT: PHYSICIAN'S DOCUMENTATION REQUEST Date of Query: 07/16/2023 07:38 AM EDT Patient Name: Jason Martinez Admit Date: 07/12/2023 Dear Wilfredo Roy, A review of the medical record indicates additional documentation may be needed. Please review below and update the documentation accordingly. Clinical Indicators: Wound care nursing notes: Pressure injury left buttock Stage 2 Dry and intact Foam Based on the above, could you please provide further information regarding the ulcer/wound/injury: Pressure Injury left buttock Stage 2 Other Other (explain) Clinically unable to determine (explain) Thank you, Sonal Weinstein, CCS, CDIS Use of terms such as suspected, likely, concern for, or probable (associated with a specific diagnosi s that is being evaluated, monitored, or treated as if it exists) are acceptable and can be coded in the inpatient se tting, when documented at the time of discharge. Please use your independent medical judgment in providing your response. THIS QUERY IS PART OF THE PERMANENT MEDICAL RECORD
[2023-07-16] MEDS: Lidocaine 4 % Patch ADH..PATCH 1 PATCH TRANSDERMA (08:20)
--- NOTE | 2023-07-16 09:53 | HO.PM.IMPN ---
Subjective Subjective Date of Service: 07/16/23 Interval History: rue owrsening pain and swelling, anuric Physical Exam Vital Signs: Vital Signs: Last Vital Signs Temp 97.3 F 07/16/23 07:10 Pulse 94 07/16/23 07:10 Resp 20 07/16/23 07:10 BP 117/70 07/16/23 07:10 Pulse Ox 96 07/16/23 07:10 O2 Del Method Room Air 07/16/23 07:10 BMI result Body Mass Index 49.2 General: AO X 3, no acute distress Resp: CTA bilateral, no accessory muscles used CVS: S1,S2,RRR GI: soft, non tender, non distended Neuro: motor grossly intact, alert Psych: appropriate affect, appropriate insight rue swelling tender, but can move, has good perfusion Objective Data Active Medications Acetaminophen (Acetaminophen 325 Mg Tablet) 650 mg PO Q4H PRN PRN Reason: Pain, Moderate(Pain Scale 4-6) Last Admin: 07/13/23 12:18 Dose: 650 mg Documented By: DINORA Fluticasone Propionate (Fluticasone Propionate Nasal 16 Gm [place]) 2 spray NOSTRIL-B DAILY [facility] Last Admin: 07/15/23 08:51 Dose: Not Given Documented By: BRENT Non-Admin Reason: Med Not Available Heparin Sodium (Porcine) (Heparin Sodium,Porcine 5,000 Unit/Ml Vial) 5,000 unit SUBCUT TID [facility] Last Admin: 07/15/23 20:51 Dose: 5,000 unit Documented By: BEN Dextrose (D10) 250 mls @ 750 mls/hr IV Q15M PRN PRN Reason: per Hypoglycemia Standing Ord. Dextrose (D10) 250 mls @ 750 mls/hr IV Q15M PRN PRN Reason: per Hypoglycemia Standing Ord. Insulin Human Lispro (Insulin Lispro 100 Unit/Ml 3 Ml Vial) 0 unit SUBCUT QIDACHS [facility]; Protocol Last Admin: 07/16/23 08:09 Dose: Not Given Documented By: BRENT Non-Admin Reason: No Insulin Coverage Lidocaine (Lidocaine 4 % Patch Adh..Patch) 1 patch TRANSDERMA DAILY [facility] Last Admin: 07/16/23 08:20 Dose: 1 patch Documented By: BRENT Cortez 07/16/23 06:14 07/16/23 06:14 Labs: Laboratory Results - last 24 hr 07/15/23 07/15/23 07/15/23 11:24 16:35 19:41 MCV MCH MCHC RDW Plt Count MPV Absolute Nucleated RBC Nucleated RBC % (auto) Anion Gap Estim Creat Clear Calc Estimated GFR POC Glucose 119 H 126 H 130 H Fasting Glucose Calcium Total Creatine Kinase 07/16/23 07/16/23 06:14 06:54 MCV 84.4 MCH 28.8 MCHC 34.1 RDW 14.2 Plt Count 164 MPV 9.1 L Absolute Nucleated RBC 0.000 Nucleated RBC % (auto) 0.0 Anion Gap 22 H Estim Creat Clear Calc 15.1 Estimated GFR 7 POC Glucose 111 Fasting Glucose 106 H Calcium 7.1 L D Total Creatine Kinase > 06177 H Assessment and Plan (1) Elevated lactic acid level: Status: Acute (2) Fall: Status: Acute (3) Acute renal failure: Status: Acute (4) Hyperkalemia: Status: Acute (5) Transaminitis: Status: Acute (6) Elevated troponin: Status: Acute (7) Rhabdomyolysis: Status: Acute Plan 53 years old male with PMH of DM2, HTN, Asthma who presented to ED After sustaining a fall and laying on the floor for 9 hours found to have severe acute kidney injury from rhabdomyolysis. And hyperkalemia CHITO and severe hyperkalemia and acute metabolic acidosis due to rhabdomyolysis. ATN from rhabdo has right IJ temporary HD catheter, plan for permacath Nephrology team following Hyperkalemia resolved Fall CT head/cervical spine negative? for acute findings To do PT upon improvement Acute?Rhabdomyolysis 2/2 fall and long stay on floor CK? elevated >[id number] Received x 3 L fluids and Started on Bicarb drip with 150meq at 150/hr with no improvement, continue to monitor ortho appreciated - compartment syndrome unlikely at this time ?Elevated troponin EKG did not show clear ischemic changes Cardiology? thinks elevated troponin is related to rhabdomyolysis. Will do outpatient ischemic work up per cardiology team Acute lactic acidosis in the setting of rhabdo and renal failure not due to severe sepsis history of hypertension, Hold Meds for now - normal BP history of diabetes-? SSI DVT PPx Heparin reason for continued hospitalization: need for permacath and outpatient hd Quality Stroke Does the patient have a stroke diagnosis?: No VTE Prior VTE?: No VTE Risk Level:: Medical - moderate - high VTE Device Contraindication: N/A - Device Ordered VTE Drug Contraindication: N/A - Med Ordered
--- NOTE | 2023-07-16 10:29 | MHC.CM.PN ---
Per ROUNDS discussion, Patient is not yet medically cleared for dc (Getting HD perma cath today); Patient may benefit from a PT eval to assist with disposition.CM will follow.
[2023-07-16 12:33] LABS: Glucose, Whole Blood 119 mg/dL (60-115)
--- NOTE | 2023-07-16 13:42 | PM.PROC ---
Brief Operative Note Date of procedure: 07/16/23 Pre-op diagnosis: ARF, Rhabdomyolysis Post-op diagnosis: same Procedure: Right IJ 27 cm Permcath placed using US and Fluoro. Tip at cavoatrial junction. Ok for use. Right IJ Quiton removed. No immediate complications. Valeriy ADAMS Anesthesia: local (75 mcg Fentanyl) Condition: stable Disposition: floor
--- NOTE | 2023-07-16 15:14 | MHC.CM.PN ---
CM received a call from Patient's primary Contact/Sister/Moraima; CM addressed her questions regarding the dc planning process. Sister wanted to be sure that CM is aware that Patient lives alone and has no formal supports in this area (she lives in [place] but is available at any time to assist in any way she can). CM will follow.
[2023-07-16 16:47] LABS: Glucose, Whole Blood 116 mg/dL (60-115)
[2023-07-16] MEDS: Heparin Sodium,Porcine 5,000 UNIT/ML VIAL 5000 UNIT SUBCUT ×2 (16:47→21:15)
--- NOTE | 2023-07-16 18:19 | PC.NURSE ---
New dialysis port inserted today to right chest . Right neck occlusive dressing intact , no bleeding . Pt went to hemodialysis after new perma cath insertion and tolerated treatment well.
--- NOTE | 2023-07-16 18:51 | P.PNNP_ITS ---
Subjective Subjective Date of Service: 07/16/23 Principal diagnosis: Elevated troponins Interval history: Remains anuric; All recent data reviewed. D/W Hospitalist Physical Exam 2 Vital Signs: Vital Signs: Last Vital Signs Temp 97.3 F 07/16/23 07:10 Pulse 94 07/16/23 07:10 Resp 20 07/16/23 07:10 BP 117/70 07/16/23 07:10 Pulse Ox 96 07/16/23 07:10 O2 Del Method Room Air 07/16/23 07:10 BMI result Body Mass Index 49.2 Const: General: no acute distress Orientation/consciousness: patient oriented x3 Eyes: EOM: EOMs intact bilaterally Resp: Auscultation: diminished lung sounds Cardio: Rate: regular rate GI: Palpation (GI): Soft to palpation Neuro: General: patient oriented x3 Objective Data Labs 07/16/23 06:14 07/16/23 06:14 Labs: Laboratory Results - last 24 hr 07/15/23 07/16/23 07/16/23 19:41 06:14 06:54 WBC 12.3 H RBC 5.32 Hgb 15.3 Hct 44.9 MCV 84.4 MCH 28.8 MCHC 34.1 RDW 14.2 Plt Count 164 MPV 9.1 L Absolute Nucleated RBC 0.000 Nucleated RBC % (auto) 0.0 Sodium 133 L Potassium 4.8 Chloride 96 Carbon Dioxide 20 L Anion Gap 22 H BUN 89 H Creatinine 8.03 H* Estim Creat Clear Calc 15.1 Estimated GFR 7 POC Glucose 130 H 111 Fasting Glucose 106 H Calcium 7.1 L D Total Creatine Kinase > 93717 H 07/16/23 07/16/23 12:30 16:43 WBC RBC Hgb Hct MCV MCH MCHC RDW Plt Count MPV Absolute Nucleated RBC Nucleated RBC % (auto) Sodium Potassium Chloride Carbon Dioxide Anion Gap BUN Creatinine Estim Creat Clear Calc Estimated GFR POC Glucose 119 H 116 H Fasting Glucose Calcium Total Creatine Kinase Microbiology Microbiology Results: Microbiology 07/12/23 12:15 Blood - Venous Blood Culture - Preliminary No growth after 48 hours. 07/12/23 12:30 Blood - Venous Blood Culture - Preliminary No growth after 48 hours. 07/12/23 Unknown Urine Catheterized - Straight Catheter Urine Culture - Final No growth. 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 Initiated HD this week; Next HD tomorrow; Permcath Monitor function for renal recovery; C/W rest of current management Time Spent With Patient Time: . Progress Note: Quality Stroke Does the patient have a stroke diagnosis?: No
--- NOTE | 2023-07-16 19:43 | PM.EVENT ---
Event Note Date of Service: 07/16/23 Event Note: Dr. Reinoso was available to evaluate the patient Compartments compressible Nontender No evidence of compartment syndrome at this time Time Spent With Patient Time: Total time managing care of this patient today ____ minutes.
[2023-07-16 20:00] VITALS: BP 73/59; PULSE 99; RESP 24; TEMP 36.1; O2SAT 97
[2023-07-16 20:20] VITALS: BP 99/57
[2023-07-16] MEDS: Albumin Human 25 % 100 ML IV (20:25)
--- NOTE | 2023-07-16 20:32 | PC.NURSE ---
pt hollering out at start of shift, c/o wanting ice packs and repositioning, repositioned x2, multiple staff in to see pt with same demands, Ice packs reapplied, pt swearing at staff, stating he is not getting any service, [employer] SCI[employer]IST got vitals with bp 73/54, attempted manual with inablility to get accurate number x3 as pulses too faint and not palpable. Pt endorses both dizzy and light headed. Pt placed in trendelenburg and Dr. Carreno made immediately aware, IV NS bolus started, Pt becoming combative, more verbally aggressive and attempting to pull out lines and off monitor. pt states he is in [place]. ? confusion vs uncooperative. repeat pressure in trend was 99/57. Kvng Carreno Bolus held and albumin started. Pt reoriented. positioned flat with legs elevated. pt now more cooperative. POC 120's plan of care ongoing.
[2023-07-16 20:39] LABS: Glucose, Whole Blood 121 mg/dL (60-115)
[2023-07-16 21:30] VITALS: BP 115/64
[2023-07-17] VITALS (7 sets, daily range): BP systolic 94–131; BP diastolic 43–95; PULSE 84–102; RESP 18–22; TEMP 35.9–36.8; O2SAT 94–97
[2023-07-17 08:11] LABS: Glucose, Whole Blood 107 mg/dL (60-115)
[2023-07-17] MEDS: Heparin Sodium,Porcine 5,000 UNIT/ML VIAL 5000 UNIT SUBCUT ×3 (08:29→21:51)
[2023-07-17] MEDS: Fluticasone Propionate Nasal 16 GM SPRAY 2 SPRAY NOSTRIL-B (08:29)
[2023-07-17] MEDS: Lidocaine 4 % Patch ADH..PATCH 1 PATCH TRANSDERMA (08:31)
--- NOTE | 2023-07-17 10:42 | HO.PM.IMPN ---
Subjective Subjective Date of Service: 07/17/23 Interval History: hypotensive overnight night, rue unchanged Physical Exam Vital Signs: Vital Signs: Last Vital Signs Temp 97.0 F 07/17/23 08:00 Pulse 96 07/17/23 08:00 Resp 20 07/17/23 08:00 BP 126/57 L 07/17/23 08:00 Pulse Ox 97 07/17/23 08:00 O2 Del Method Room Air 07/17/23 08:00 BMI result Body Mass Index 49.2 Const: General: no acute distress Orientation/consciousness: patient oriented x3 Eyes: EOM: EOMs intact bilaterally Resp: Auscultation: diminished lung sounds Cardio: Rate: regular rate GI: Palpation (GI): Soft to palpation Neuro: General: patient oriented x3 Objective Data Active Medications Acetaminophen (Acetaminophen 325 Mg Tablet) 650 mg PO Q4H PRN PRN Reason: Pain, Moderate(Pain Scale 4-6) Last Admin: 07/13/23 12:18 Dose: 650 mg Documented By: DINORA Fluticasone Propionate (Fluticasone Propionate Nasal 16 Gm [place]) 2 spray NOSTRIL-B DAILY [facility] Last Admin: 07/17/23 08:29 Dose: 2 spray Documented By: LLUVIA Heparin Sodium (Porcine) (Heparin Sodium,Porcine 5,000 Unit/Ml Vial) 5,000 unit SUBCUT TID [facility] Last Admin: 07/17/23 08:29 Dose: 5,000 unit Documented By: LLUVIA Dextrose (D10) 250 mls @ 750 mls/hr IV Q15M PRN PRN Reason: per Hypoglycemia Standing Ord. Insulin Human Lispro (Insulin Lispro 100 Unit/Ml 3 Ml Vial) 0 unit SUBCUT QIDACHS [facility]; Protocol Last Admin: 07/17/23 08:13 Dose: Not Given Documented By: LLUVIA Non-Admin Reason: No Insulin Coverage Lidocaine (Lidocaine 4 % Patch Adh..Patch) 1 patch TRANSDERMA DAILY [facility] Last Admin: 07/17/23 08:31 Dose: 1 patch Documented By: LLUVIA Labs 07/16/23 06:14 07/16/23 06:14 Labs: Laboratory Results - last 24 hr 07/16/23 07/16/23 07/16/23 12:30 16:43 20:35 POC Glucose 119 H 116 H 121 H 07/17/23 07:54 POC Glucose 107 Assessment and Plan (1) Elevated lactic acid level: Status: Acute (2) Fall: Status: Acute (3) Acute renal failure: Status: Acute (4) Hyperkalemia: Status: Acute (5) Transaminitis: Status: Acute (6) Elevated troponin: Status: Acute (7) Rhabdomyolysis: Status: Acute Plan 53 years old male with PMH of DM2, HTN, Asthma who presented to ED After sustaining a fall and laying on the floor for 9 hours found to have severe acute kidney injury from rhabdomyolysis. And hyperkalemia CHITO and severe hyperkalemia and acute metabolic acidosis due to rhabdomyolysis. ATN from rhabdo permacath placed 07/16/23 Nephrology team following Hyperkalemia resolved hypotension resolved, not due to sepsis Fall CT head/cervical spine negative? for acute findings pt eval Acute?Rhabdomyolysis 2/2 fall and long stay on floor CK? elevated >[id number] Received x 3 L fluids and Started on Bicarb drip with 150meq at 150/hr with no improvement, continue to monitor ortho appreciated - compartment syndrome unlikely at this time Elevated troponin EKG did not show clear ischemic changes Cardiology? thinks elevated troponin is related to rhabdomyolysis. Will do outpatient ischemic work up per cardiology team Acute lactic acidosis in the setting of rhabdo and renal failure not due to severe sepsis diabetes-? SSI DVT PPx Heparin reason for continued hospitalization: needs outpatient hd, managing fluid status/bp Quality Stroke Does the patient have a stroke diagnosis?: No VTE Prior VTE?: No VTE Risk Level:: Medical - moderate - high VTE Device Contraindication: N/A - Device Ordered VTE Drug Contraindication: N/A - Med Ordered
--- NOTE | 2023-07-17 10:46 | PM.CNOR ---
History of Present Illness HPI Consult date: 07/17/23 Chief complaint: Acute renal failure Narrative: 53 years old male with PMH of DM2, HTN, Asthma who presented to ED After sustaining a fall and laying on the floor for 9 hours with acute kidney injury from rhabdomyolysis. Orthopedics was consulted for RUE pain and swelling with concern for reprofusion syndrome vs compartment syndrome. Review of Systems Review of Systems: Yes all other systems are reviewed and are negative PMFSH Past Medical History Medical History Tobacco dependence syndrome Rectal hemorrhage Prostatism Palpitations Nausea Leg edema, left Hyperglycemia Homeless History of COVID-19 Heartburn Essential hypertension Depressive disorder Chronic pain of left knee Chronic lower back pain Chest pain Asthma Amnesia Family History Family History Mother Heart disease Diabetes Dementia Brainstem hemorrhage Father No problems noted. Surgical History Surgical History Umbilical hernia (04/01/23) History of surgery on lower extremity History of surgery on arm Social History Social History Alcohol intake: former Comment: counts correct Patient Tobacco Use Status: Former Tobacco user Smoked in Last 30 Days: No Use of substances other than those prescribed or required for medical reasons: No Currently Displaying Signs/Symptoms of Drug Intoxication Withdrawal: No Advance Directives: No Advance Directives Information Provided: Yes Nutrition Risks: No Nutritional Risk service: No Meds Allergies Allergy/AdvReac Type Severity Reaction Status Date / Time aspirin [ASPIRIN] Allergy Unknown SWELLING, Verified 07/11/23 12:24 NAUSEA, VOMITING Active Medications: Current Medications Acetaminophen (Acetaminophen 325 Mg Tablet) 650 mg PO Q4H PRN PRN Reason: Pain, Moderate(Pain Scale 4-6) Last Admin: 07/13/23 12:18 Dose: 650 mg Fluticasone Propionate (Fluticasone Propionate Nasal 16 Gm [place]) 2 spray NOSTRIL-B DAILY [facility] Last Admin: 07/17/23 08:29 Dose: 2 spray Heparin Sodium (Porcine) (Heparin Sodium,Porcine 5,000 Unit/Ml Vial) 5,000 unit SUBCUT TID [facility] Last Admin: 07/17/23 08:29 Dose: 5,000 unit Dextrose (D10) 250 mls @ 750 mls/hr IV Q15M PRN PRN Reason: per Hypoglycemia Standing Ord. Insulin Human Lispro (Insulin Lispro 100 Unit/Ml 3 Ml Vial) 0 unit SUBCUT QIDACHS [facility]; Protocol Last Admin: 07/17/23 08:13 Dose: Not Given Lidocaine (Lidocaine 4 % Patch Adh..Patch) 1 patch TRANSDERMA DAILY [facility] Last Admin: 07/17/23 08:31 Dose: 1 patch Home Medications ?Medication ?Instructions ?Recorded ?Confirmed ?Last Taken ?Type acetaminophen 650 mg 650 mg PO Q6H PRN fever 04/24/22 07/12/23 Unknown History tablet,extended release (Arthritis Pain Relief (acetaminophen) ER) buprenorphine 4 mg-naloxone 1 mg 1 film sublingual DAILY 04/24/22 07/12/23 04/01/23 History sublingual film buprenorphine 8 mg-naloxone 2 mg 2 film sublingual DAILY 04/24/22 07/12/23 04/01/23 History sublingual film fluticasone propionate 50 2 spray intranasal DAILY 04/24/22 07/12/23 Unknown History mcg/actuation nasal spray,suspension lidocaine 5 % topical patch 1 patch topical DAILY 04/24/22 07/12/23 Unknown History lisinopril 20 mg tablet 20 mg PO DAILY 04/24/22 07/12/23 Unknown History aripiprazole 5 mg tablet 5 mg PO DAILY 05/18/23 07/12/23 Unknown History baclofen 10 mg tablet 10 mg PO TID PRN muscle spasms 05/18/23 07/12/23 Unknown History albuterol sulfate 90 mcg/actuation 2 puff inhalation QID PRN 07/12/23 07/12/23 Unknown History aerosol inhaler Shortness Of Breath Or Wheezing metformin 500 mg tablet 250 mg PO BID 07/12/23 07/12/23 Unknown History trazodone 150 mg tablet 150 mg PO BEDTIME 07/12/23 07/12/23 Unknown History Physical Exam Vital Signs: Vital Signs: Last Vital Signs Temp 97.0 F 07/17/23 08:00 Pulse 96 07/17/23 08:00 Resp 20 07/17/23 08:00 BP 126/57 L 07/17/23 08:00 Pulse Ox 97 07/17/23 08:00 O2 Del Method Room Air 07/17/23 08:00 BMI result Body Mass Index 49.2 Const: General: cooperative, healthy appearing and no acute distress Resp: Effort & Inspection: normal respiratory effort and able to speak in complete sentences Cardio: Rate: regular rate Peripheral pulses: Peripheral pulses 2+ throughout GI: Palpation (GI): Soft to palpation Skin: Lesions: no lesions Rashes: no rashes Extrem: Other: RUE compartments are soft and compressible. Edema has decreased. Improving ROM. Sensation intact. Radial pulse intact. Capillary refill brisk. Results Labs 07/17/23 17:20 07/17/23 17:20 Labs: Abnormal lab results 07/16/23 07/16/23 07/16/23 Range/Units 12:30 16:43 20:35 POC Glucose 119 H 116 H 121 H (60-115) mg/dL H & H 07/11/23 07/11/23 07/12/23 Range/Units 12:39 15:56 05:43 Hgb TNP 19.6 H D 17.3 Hct TNP 59.8 H 50.7 07/13/23 07/14/23 07/15/23 Range/Units 07:20 06:08 08:24 Hgb 14.8 14.4 15.0 Hct 43.5 42.6 44.8 07/16/23 Range/Units 06:14 Hgb 15.3 Hct 44.9 Coagulation 07/12/23 Range/Units 05:43 INR 1.0 (0.9-1.1) All other labs normal. Assessment and Plan (1) Rhabdomyolysis: Status: Acute (2) Fall: Status: Acute (3) Elevated lactic acid level: Status: Acute Plan Patient was seen and evaluated this morning. He feels he is doing better and reports decreased pain Compartments are soft and compressible No additional orthopedic intervention needed at this time Procedures Date of Service Date of Service: 07/17/23
[2023-07-17 12:06] LABS: Glucose, Whole Blood 104 mg/dL (60-115)
[2023-07-17 17:30] LABS: Hematocrit 46.2 % (42.0-52.0); Hemoglobin 15.9 g/dl (14.0-18.0); Mean Corpuscular HGB Conc 34.4 g/dl (31.0-36.0); Mean Corpuscular Hemoglobin 28.7 pg (27.0-33.0); Mean Corpuscular Volume 83.4 fL (80.0-98.0); Mean Platelet Volume 8.8 fL (9.4-12.4); Platelet Count 194 X10*3/uL (160-400); Red Blood Count 5.54 X10*6/uL (4.60-5.80); Red Cell Distribution Width 14.3 % (11.0-16.0); White Blood Count 13.4 X10*3/uL (4.8-10.8)
[2023-07-17 17:49] LABS: Anion Gap 17 (12-20); Blood Urea Nitrogen 42 mg/dL (9-16); Calcium 8.4 mg/dL (8.4-10.2); Carbon Dioxide 21 mmol/L (22-29); Chloride 98 mmol/L (96-108); Creatinine Clr Calc Pharmacy 28.7; Estimated Glomerular Filt Rate 15; Glucose Fasting 101 mg/dL (60-99); Potassium 3.9 mmol/L (3.3-5.1); Sodium 132 mmol/L (135-145)
[2023-07-17 18:26] LABS: Glucose, Whole Blood 116 mg/dL (60-115)
[2023-07-17 21:22] LABS: Glucose, Whole Blood 165 mg/dL (60-115)
[2023-07-17] MEDS: Insulin Lispro 100 UNIT/ML 3 ML VIAL SUBCUT (21:52)
[2023-07-17] MEDS: Acetaminophen 325 MG TABLET 650 MG PO (22:00)
[2023-07-18] VITALS: BP 92/55; PULSE 94; RESP 24; TEMP 37.1; O2SAT 93
[2023-07-18 04:00] VITALS: BP 102/61; PULSE 98; RESP 24; TEMP 36.7; O2SAT 94
[2023-07-18 07:25] VITALS: BP 98/60; PULSE 94; RESP 18; TEMP 36; O2SAT 97
[2023-07-18 08:22] LABS: Glucose, Whole Blood 119 mg/dL (60-115)
--- NOTE | 2023-07-18 08:59 | P.PNIM_ITS ---
Subjective Subjective Date of Service: 07/18/23 Interval History: no further episodes overnight Physical Exam 2 Vital Signs: Vital Signs: Last Vital Signs Temp 96.8 F 07/18/23 07:25 Pulse 94 07/18/23 07:25 Resp 18 07/18/23 07:25 BP 98/60 07/18/23 07:25 Pulse Ox 97 07/18/23 07:25 O2 Del Method Room Air 07/18/23 07:25 BMI result Body Mass Index 49.2 Const: General: cooperative, healthy appearing and no acute distress Resp: Effort & Inspection: normal respiratory effort and able to speak in complete sentences Cardio: Rate: regular rate Peripheral pulses: Peripheral pulses 2+ throughout GI: Palpation (GI): Soft to palpation Skin: Lesions: no lesions Rashes: no rashes Extrem: Other: RUE compartments are soft and compressible. Edema has decreased. Improving ROM. Sensation intact. Radial pulse intact. Capillary refill brisk. Objective Data Active Medications Acetaminophen (Acetaminophen 325 Mg Tablet) 650 mg PO Q4H PRN PRN Reason: Pain, Moderate(Pain Scale 4-6) Last Admin: 07/17/23 22:00 Dose: 650 mg Documented By: CARL Fluticasone Propionate (Fluticasone Propionate Nasal 16 Gm [place]) 2 spray NOSTRIL-B DAILY [facility] Last Admin: 07/17/23 08:29 Dose: 2 spray Documented By: LLUVIA Heparin Sodium (Porcine) (Heparin Sodium,Porcine 5,000 Unit/Ml Vial) 5,000 unit SUBCUT TID [facility] Last Admin: 07/17/23 21:51 Dose: 5,000 unit Documented By: CARL Dextrose (D10) 250 mls @ 750 mls/hr IV Q15M PRN PRN Reason: per Hypoglycemia Standing Ord. Insulin Human Lispro (Insulin Lispro 100 Unit/Ml 3 Ml Vial) 0 unit SUBCUT QIDACHS [facility]; Protocol Last Admin: 07/17/23 21:52 Dose: 2 unit Documented By: CARL Lidocaine (Lidocaine 4 % Patch Adh..Patch) 1 patch TRANSDERMA DAILY [facility] Last Admin: 07/17/23 08:31 Dose: 1 patch Documented By: LLUVIA Labs 07/17/23 17:20 07/17/23 17:20 Labs: Laboratory Results - last 24 hr 07/17/23 07/17/23 07/17/23 12:01 17:20 18:21 MCV 83.4 MCH 28.7 MCHC 34.4 RDW 14.3 Plt Count 194 MPV 8.8 L Absolute Nucleated RBC 0.000 Nucleated RBC % (auto) 0.0 Anion Gap 17 Estim Creat Clear Calc 28.7 Estimated GFR 15 POC Glucose 104 116 H Fasting Glucose 101 H Calcium 8.4 D 07/17/23 07/18/23 21:11 08:18 MCV MCH MCHC RDW Plt Count MPV Absolute Nucleated RBC Nucleated RBC % (auto) Anion Gap Estim Creat Clear Calc Estimated GFR POC Glucose 165 H 119 H Fasting Glucose Calcium Microbiology Microbiology Results: Microbiology 07/12/23 12:30 Blood Culture - Final Blood - Venous No growth after 5 days. 07/12/23 12:15 Blood Culture - Final Blood - Venous No growth after 5 days. Assessment and Plan (1) Elevated lactic acid level: Status: Acute (2) Fall: Status: Acute (3) Acute renal failure: Status: Acute (4) Hyperkalemia: Status: Acute (5) Transaminitis: Status: Acute (6) Elevated troponin: Status: Acute (7) Rhabdomyolysis: Status: Acute Plan 53 years old male with PMH of DM2, HTN, Asthma who presented to ED After sustaining a fall and laying on the floor for 9 hours found to have severe acute kidney injury from rhabdomyolysis. And hyperkalemia CHITO and severe hyperkalemia and acute metabolic acidosis due to rhabdomyolysis. ATN from rhabdo permacath placed 07/16/23 Nephrology team following Hyperkalemia resolved hypotension resolved, not due to sepsis Fall CT head/cervical spine negative? for acute findings pt eval Acute?Rhabdomyolysis 2/2 fall and long stay on floor CK? elevated >[id number] Received x 3 L fluids and Started on Bicarb drip with 150meq at 150/hr with no improvement, continue to monitor ortho appreciated - compartment syndrome unlikely at this time Elevated troponin EKG did not show clear ischemic changes Cardiology? thinks elevated troponin is related to rhabdomyolysis. Will do outpatient ischemic work up per cardiology team Acute lactic acidosis in the setting of rhabdo and renal failure not due to severe sepsis diabetes-? SSI DVT PPx Heparin reason for continued hospitalization: needs outpatient hd, managing fluid status/bp Quality Stroke Does the patient have a stroke diagnosis?: No VTE Prior VTE?: No VTE Risk Level:: Medical - moderate - high VTE Device Contraindication: N/A - Device Ordered VTE Drug Contraindication: N/A - Med Ordered
[2023-07-18] MEDS: Lidocaine 4 % Patch ADH..PATCH 1 PATCH TRANSDERMA (09:33)
[2023-07-18] MEDS: Heparin Sodium,Porcine 5,000 UNIT/ML VIAL 5000 UNIT SUBCUT ×3 (09:34→21:33)
[2023-07-18] MEDS: Fluticasone Propionate Nasal 16 GM SPRAY 2 SPRAY NOSTRIL-B (09:35)
[2023-07-18] MEDS: Acetaminophen 325 MG TABLET 650 MG PO ×2 (09:36→23:16)
[2023-07-18 10:40] VITALS: BP 103/63; PULSE 95; RESP 20; TEMP 36.4; O2SAT 98
[2023-07-18 12:28] LABS: Glucose, Whole Blood 124 mg/dL (60-115)
[2023-07-18 15:39] VITALS: BP 113/69; PULSE 90; RESP 17; TEMP 36.2; O2SAT 98
[2023-07-18 16:47] LABS: Glucose, Whole Blood 104 mg/dL (60-115)
[2023-07-18 20:00] VITALS: BP 123/56; PULSE 89; RESP 18; TEMP 36.9; O2SAT 100
[2023-07-18 20:36] LABS: Glucose, Whole Blood 100 mg/dL (60-115)
[2023-07-19] VITALS (10 sets, daily range): BP systolic 102–137; BP diastolic 52–68; PULSE 78–100; RESP 18–22; TEMP 36.2–37; O2SAT 96–99; BMI 49.2
--- NOTE | 2023-07-19 | ECG_ITS ---
Test Reason : chest pain Blood Pressure : / mmHG Vent. Rate : 101 BPM Atrial Rate : 101 BPM P-R Int : 144 ms QRS Dur : 074 ms QT Int : 346 ms P-R-T Axes : 039 028 049 degrees QTc Int : 448 ms Sinus tachycardia Otherwise normal ECG When compared with ECG of 11-JUL-2023 12:25, Questionable change in QRS duration Referred By: Wilfredo Roy Electronically Signed By:HELDER ARNDT
[2023-07-19 07:25] LABS: Glucose, Whole Blood 78 mg/dL (60-115)
[2023-07-19] MEDS: Acetaminophen 325 MG TABLET 650 MG PO ×2 (08:42→13:15)
[2023-07-19] MEDS: Heparin Sodium,Porcine 5,000 UNIT/ML VIAL 5000 UNIT SUBCUT ×3 (08:42→21:21)
[2023-07-19] MEDS: Fluticasone Propionate Nasal 16 GM SPRAY 2 SPRAY NOSTRIL-B (08:43)
[2023-07-19] MEDS: Lidocaine 4 % Patch ADH..PATCH 1 PATCH TRANSDERMA (08:43)
--- NOTE | 2023-07-19 09:38 | HO.PM.IMPN ---
Subjective Subjective Date of Service: 07/19/23 Interval History: complaining of chest pain Physical Exam Vital Signs: Vital Signs: Last Vital Signs Temp 98.1 F 07/19/23 08:00 Pulse 93 07/19/23 08:00 Resp 18 07/19/23 08:00 BP 102/52 L 07/19/23 08:00 Pulse Ox 96 07/19/23 08:00 O2 Del Method Room Air 07/19/23 08:00 BMI result Body Mass Index 49.2 Const: General: cooperative, healthy appearing and no acute distress Resp: Effort & Inspection: normal respiratory effort and able to speak in complete sentences Cardio: Rate: regular rate Peripheral pulses: Peripheral pulses 2+ throughout GI: Palpation (GI): Soft to palpation Skin: Lesions: no lesions Rashes: no rashes Extrem: Other: RUE compartments are soft and compressible. Edema has decreased. Improving ROM. Sensation intact. Radial pulse intact. Capillary refill brisk. Objective Data Active Medications Acetaminophen (Acetaminophen 325 Mg Tablet) 650 mg PO Q4H PRN PRN Reason: Pain, Moderate(Pain Scale 4-6) Last Admin: 07/19/23 08:42 Dose: 650 mg Documented By: LLUVIA Fluticasone Propionate (Fluticasone Propionate Nasal 16 Gm [place]) 2 spray NOSTRIL-B DAILY [facility] Last Admin: 07/19/23 08:43 Dose: 2 spray Documented By: LLUVIA Heparin Sodium (Porcine) (Heparin Sodium,Porcine 5,000 Unit/Ml Vial) 5,000 unit SUBCUT TID [facility] Last Admin: 07/19/23 08:42 Dose: 5,000 unit Documented By: LLUVIA Dextrose (D10) 250 mls @ 750 mls/hr IV Q15M PRN PRN Reason: per Hypoglycemia Standing Ord. Insulin Human Lispro (Insulin Lispro 100 Unit/Ml 3 Ml Vial) 0 unit SUBCUT QIDACHS [facility]; Protocol Last Admin: 07/19/23 08:01 Dose: Not Given Documented By: LLUVIA Non-Admin Reason: No Insulin Coverage Lidocaine (Lidocaine 4 % Patch Adh..Patch) 1 patch TRANSDERMA DAILY [facility] Last Admin: 07/19/23 08:43 Dose: 1 patch Documented By: LLUVIA Labs 07/17/23 17:20 07/17/23 17:20 Labs: Laboratory Results - last 24 hr 07/18/23 07/18/23 07/18/23 12:24 16:42 20:32 POC Glucose 124 H 104 100 07/19/23 07:09 POC Glucose 78 Assessment and Plan (1) Elevated lactic acid level: Status: Acute (2) Fall: Status: Acute (3) Acute renal failure: Status: Acute (4) Hyperkalemia: Status: Acute (5) Transaminitis: Status: Acute (6) Elevated troponin: Status: Acute (7) Rhabdomyolysis: Status: Acute Plan 53 years old male with PMH of DM2, HTN, Asthma who presented to ED After sustaining a fall and laying on the floor for 9 hours found to have severe acute kidney injury from rhabdomyolysis. And hyperkalemia CHITO and severe hyperkalemia and acute metabolic acidosis due to rhabdomyolysis. ATN from rhabdo permacath placed 07/16/23 Nephrology team following Hyperkalemia resolved chest pain check ekg, trop hypotension resolved, not due to sepsis Fall CT head/cervical spine negative? for acute findings pt eval Acute?Rhabdomyolysis 2/2 fall and long stay on floor CK? elevated >80326 Received x 3 L fluids and Started on Bicarb drip with 150meq at 150/hr with no improvement, continue to monitor ortho appreciated - compartment syndrome unlikely at this time Elevated troponin on admission EKG did not show clear ischemic changes Cardiology? thinks elevated troponin is related to rhabdomyolysis. Will do outpatient ischemic work up per cardiology team Acute lactic acidosis in the setting of rhabdo and renal failure not due to severe sepsis diabetes-? SSI DVT PPx Heparin reason for continued hospitalization: needs outpatient hd, active chest pain Quality Stroke Does the patient have a stroke diagnosis?: No VTE Prior VTE?: No VTE Risk Level:: Medical - moderate - high VTE Device Contraindication: N/A - Device Ordered VTE Drug Contraindication: N/A - Med Ordered
--- NOTE | 2023-07-19 10:40 | MHC.CM.PN ---
CM assisted Patient with the completion of a HCP; he named his Sister/Lauryn as his Agent. CM will follow.
[2023-07-19 10:50] LABS: Troponin-I High Sensitivity 56.5 ng/L (<3.5-35.0)
--- NOTE | 2023-07-19 10:54 | HO.WOUND ---
Attempted consultation - patient working with PT at the time of my arrival will return at future time and or date.
[2023-07-19 11:20] LABS: Glucose, Whole Blood 110 mg/dL (60-115)
--- NOTE | 2023-07-19 12:06 | MHC.CM.PN ---
PT is recommending STR; CM has referred to the only 2 area SNF's with onsite HD. CM will follow.
--- NOTE | 2023-07-19 13:09 | P.PNNP_ITS ---
Subjective Subjective Date of Service: 07/20/23 Principal diagnosis: Elevated troponins Interval history: Events noted Physical Exam 2 Vital Signs: Vital Signs: Last Vital Signs Temp 97.7 F 07/19/23 11:49 Pulse 86 07/19/23 11:49 Resp 20 07/19/23 11:49 BP 114/56 L 07/19/23 11:49 Pulse Ox 96 07/19/23 11:49 O2 Del Method Room Air 07/19/23 11:49 BMI result Body Mass Index 49.2 Const: General: ill appearing Neck: Neck: Yes supple Resp: Auscultation: clear to auscultation bilaterally Cardio: Palpation: no palpable S3 Heart sounds: no rubs GI: Palpation (GI): Soft to palpation Auscultation: normal bowel sounds Neuro: Motor exam (neuro): no asterixis Objective Data Labs 07/20/23 08:51 07/20/23 08:51 Labs: Laboratory Results - last 24 hr 07/18/23 07/18/23 07/19/23 16:42 20:32 07:09 POC Glucose 104 100 78 Troponin I High Sens 07/19/23 07/19/23 10:14 11:12 POC Glucose 110 Troponin I High Sens 56.5 H D Microbiology Microbiology Results: Microbiology 07/12/23 12:30 Blood - Venous Blood Culture - Final No growth after 5 days. 07/12/23 12:15 Blood - Venous Blood Culture - Final No growth after 5 days. 07/12/23 Unknown Urine Catheterized - Straight Catheter Urine Culture - Final No growth. Procedures Date of Service Date of Service: 07/20/23 Assessment & Plan Assessment and plan (1) Acute renal failure: Status: Acute Plan CHITO and severe hyperkalemia due to rhabdomyolysis. He has tubular injury due to rhabdomyolysis. Hyperkalemia At this point he has no signs of renal recovery yet. Watch urine output closely. Check renal panel tomorrow and reassess need for hemodialysis Discussed with hospitalist team Time Spent With Patient Time: Total time managing care of this patient today ____ minutes. Progress Note: Quality Stroke Does the patient have a stroke diagnosis?: No
--- NOTE | 2023-07-19 16:03 | HO.WOUND ---
Wound Consult: Initial 53yr old?[place] [facility] [place] - See progress notes and H&P for detailed history.? Wound consult placed for Left Buttock wound POA.? Patient agreeable to assessment and photo documentation.? The Buttock was assessed and detailed below. Photo failed to upload. Left Buttock Etiology: ?Abrasion vs MASD (Moisture Associated Skin Damage) Measurements: 6cm x 6cm x 0.1cm Wound Bed: hyperpigmented tissue irregular edges, maroon light purple remains blanchable throughout - scattered areas of partial thickness tissue loss Drainage / Odor: None noted Edges: irregular? Enriqueta wound: ?Intact - No Induration, Fluctuance or Warmth noted Pain: Tender to touch Goals of Treatment: ? Off load pressure continue to protect from moisture and friciton - triad and foam in place Currently patient is in Low Air Loss Mattress, heels are elevated off of bed surface and barrier cream in use. Recommendations: 1. Turn and Reposition every 2 hours and as needed for patient comfort.? Use pillows or wedges to support off loading positions. 2. Off Load all bony prominences with use of pillows and heel boots if needed.? Apply Preventative foams where needed. ? 3. Monitor for incontinence and moisture control, use barrier creams when needed for prevention and treatment. 4. Provide adequate and supplemental nutrition.? 5. Order or Continue low air loss mattress. 6. When applicable maintain blood glucose levels per Providers order. 7. Buttock - Off Load Pressure Cleanse with PH balance spray or wipes, pat dry. ?Apply thin layer of Triad to wound bed. Do not remove all of paste between applications as this may cause further skin damage.? Cover with foam dressing to aid in off loading and protection from friction. Re-consult wound care Nurse for wound deterioration or wound changes.
[2023-07-19 16:13] LABS: Glucose, Whole Blood 108 mg/dL (60-115)
[2023-07-19 20:14] LABS: Glucose, Whole Blood 109 mg/dL (60-115)
[2023-07-20 03:13] VITALS: BP 124/57; PULSE 93; RESP 18; TEMP 37.2; O2SAT 97
[2023-07-20 07:45] VITALS: BP 112/60; PULSE 85; RESP 18; TEMP 36.7; O2SAT 98
[2023-07-20 07:45] LABS: Glucose, Whole Blood 84 mg/dL (60-115)
--- NOTE | 2023-07-20 08:48 | P.PNIM_ITS ---
Subjective Subjective Date of Service: 07/20/23 Interval History: right arm a bit better Physical Exam 2 Vital Signs: Vital Signs: Last Vital Signs Temp 98.0 F 07/20/23 07:45 Pulse 85 07/20/23 07:45 Resp 18 07/20/23 07:45 BP 112/60 07/20/23 07:45 Pulse Ox 98 07/20/23 07:45 O2 Del Method Room Air 07/20/23 07:45 BMI result Body Mass Index 49.2 Const: General: ill appearing Neck: Neck: Yes supple Resp: Auscultation: clear to auscultation bilaterally Cardio: Palpation: no palpable S3 Heart sounds: no rubs GI: Palpation (GI): Soft to palpation Auscultation: normal bowel sounds Neuro: Motor exam (neuro): no asterixis Objective Data Active Medications Acetaminophen (Acetaminophen 325 Mg Tablet) 650 mg PO Q4H PRN PRN Reason: Pain, Moderate(Pain Scale 4-6) Last Admin: 07/19/23 13:15 Dose: 650 mg Documented By: LLUVIA Fluticasone Propionate (Fluticasone Propionate Nasal 16 Gm [place]) 2 spray NOSTRIL-B DAILY [facility] Last Admin: 07/19/23 08:43 Dose: 2 spray Documented By: LLUVIA Heparin Sodium (Porcine) (Heparin Sodium,Porcine 5,000 Unit/Ml Vial) 5,000 unit SUBCUT TID [facility] Last Admin: 07/19/23 21:21 Dose: 5,000 unit Documented By: HELDER Dextrose (D10) 250 mls @ 750 mls/hr IV Q15M PRN PRN Reason: per Hypoglycemia Standing Ord. Insulin Human Lispro (Insulin Lispro 100 Unit/Ml 3 Ml Vial) 0 unit SUBCUT QIDACHS [facility]; Protocol Last Admin: 07/20/23 07:46 Dose: Not Given Documented By: NARCISA Non-Admin Reason: No Insulin Coverage Lidocaine (Lidocaine 4 % Patch Adh..Patch) 1 patch TRANSDERMA DAILY [facility] Last Admin: 07/19/23 08:43 Dose: 1 patch Documented By: LLUVIA Labs 07/17/23 17:20 07/17/23 17:20 Labs: Laboratory Results - last 24 hr 06/10/24 06/10/24 06/10/24 10:14 11:12 16:00 POC Glucose 110 108 Troponin I High Sens 56.5 H D 07/19/23 07/20/23 19:46 07:38 POC Glucose 109 84 Troponin I High Sens Assessment and Plan (1) Elevated lactic acid level: Status: Acute (2) Fall: Status: Acute (3) Acute renal failure: Status: Acute (4) Hyperkalemia: Status: Acute (5) Transaminitis: Status: Acute (6) Elevated troponin: Status: Acute (7) Rhabdomyolysis: Status: Acute Plan 53 years old male with PMH of DM2, HTN, Asthma who presented to ED After sustaining a fall and laying on the floor for 9 hours found to have severe acute kidney injury from rhabdomyolysis. And hyperkalemia CHITO and severe hyperkalemia and acute metabolic acidosis due to rhabdomyolysis. ATN from rhabdo permacath placed 07/16/23 Nephrology team following Hyperkalemia resolved chest pain non ischemic ekg, trop downtrending, likely MSK hypotension resolved, not due to sepsis Fall CT head/cervical spine negative? for acute findings pt recommending str Acute?Rhabdomyolysis 2/2 fall and long stay on floor CK? elevated >36617 Received x 3 L fluids and Started on Bicarb drip with 150meq at 150/hr with no improvement, continue to monitor ortho appreciated - compartment syndrome unlikely at this time Elevated troponin on admission EKG did not show clear ischemic changes Cardiology? thinks elevated troponin is related to rhabdomyolysis. Will do outpatient ischemic work up per cardiology team Acute lactic acidosis in the setting of rhabdo and renal failure not due to severe sepsis diabetes-? SSI DVT PPx Heparin reason for continued hospitalization: needs outpatient hd Quality Stroke Does the patient have a stroke diagnosis?: No VTE Prior VTE?: No VTE Risk Level:: Medical - moderate - high VTE Device Contraindication: N/A - Device Ordered VTE Drug Contraindication: N/A - Med Ordered
[2023-07-20 09:15] LABS: Hematocrit 40.4 % (42.0-52.0); Hemoglobin 13.6 g/dl (14.0-18.0); Mean Corpuscular HGB Conc 33.7 g/dl (31.0-36.0); Mean Corpuscular Hemoglobin 28.5 pg (27.0-33.0); Mean Corpuscular Volume 84.7 fL (80.0-98.0); Mean Platelet Volume 8.6 fL (9.4-12.4); Platelet Count 248 X10*3/uL (160-400); Red Blood Count 4.77 X10*6/uL (4.60-5.80); Red Cell Distribution Width 14.1 % (11.0-16.0); White Blood Count 14.8 X10*3/uL (4.8-10.8)
[2023-07-20 09:54] LABS: Anion Gap 26 (12-20); Carbon Dioxide 16 mmol/L (22-29); Chloride 92 mmol/L (96-108); Creatinine Clr Calc Pharmacy 11.7; Estimated Glomerular Filt Rate 5; Glucose Fasting 106 mg/dL (60-99); Potassium 6.1 mmol/L (3.3-5.1); Sodium 128 mmol/L (135-145)
[2023-07-20 10:08] LABS: Blood Urea Nitrogen 135 mg/dL (9-16)
--- NOTE | 2023-07-20 13:12 | P.PNNP_ITS ---
Subjective Subjective Date of Service: 07/20/23 Principal diagnosis: Elevated troponins Interval history: Sleepy. Physical Exam 2 Vital Signs: Vital Signs: Last Vital Signs Temp 98.0 F 07/20/23 07:45 Pulse 85 07/20/23 07:45 Resp 18 07/20/23 07:45 BP 112/60 07/20/23 07:45 Pulse Ox 98 07/20/23 07:45 O2 Del Method Room Air 07/20/23 07:45 BMI result Body Mass Index 49.2 Const: General: ill appearing Neck: Neck: Yes supple Resp: Auscultation: clear to auscultation bilaterally Cardio: Palpation: no palpable S3 Heart sounds: no rubs GI: Palpation (GI): Soft to palpation Auscultation: normal bowel sounds Neuro: Motor exam (neuro): no asterixis Objective Data Labs 07/20/23 08:51 07/20/23 08:51 Labs: Laboratory Results - last 24 hr 07/19/23 07/19/23 07/20/23 16:00 19:46 07:38 WBC RBC Hgb Hct MCV MCH MCHC RDW Plt Count MPV Absolute Nucleated RBC Nucleated RBC % (auto) Sodium Potassium Chloride Carbon Dioxide Anion Gap BUN Creatinine Estim Creat Clear Calc Estimated GFR POC Glucose 108 109 84 Random Glucose Fasting Glucose Calcium 07/20/23 07/20/23 07/20/23 08:51 08:51 08:51 WBC 14.8 H RBC 4.77 Hgb 13.6 L Hct 40.4 L MCV 84.7 MCH 28.5 MCHC 33.7 RDW 14.1 Plt Count 248 D MPV 8.6 L Absolute Nucleated RBC 0.000 Nucleated RBC % (auto) 0.0 Sodium 128 L Cancelled Potassium 6.1 H* D Cancelled Chloride 92 L Carbon Dioxide Anion Gap BUN Creatinine Estim Creat Clear Calc Estimated GFR POC Glucose Random Glucose Fasting Glucose Calcium 07/20/23 07/20/23 07/20/23 08:51 08:51 08:51 WBC RBC Hgb Hct MCV MCH MCHC RDW Plt Count MPV Absolute Nucleated RBC Nucleated RBC % (auto) Sodium Potassium Chloride Cancelled Carbon Dioxide 16 L Cancelled Anion Gap 26 H Cancelled BUN 135 H Creatinine Estim Creat Clear Calc Estimated GFR POC Glucose Random Glucose Fasting Glucose Calcium 07/20/23 07/20/23 07/20/23 08:51 08:51 08:51 WBC RBC Hgb Hct MCV MCH MCHC RDW Plt Count MPV Absolute Nucleated RBC Nucleated RBC % (auto) Sodium Potassium Chloride Carbon Dioxide Anion Gap BUN Cancelled Creatinine 10.40 H* Cancelled Estim Creat Clear Calc 11.7 Cancelled Estimated GFR 5 POC Glucose Random Glucose Fasting Glucose Calcium 07/20/23 07/20/23 08:51 08:51 WBC RBC Hgb Hct MCV MCH MCHC RDW Plt Count MPV Absolute Nucleated RBC Nucleated RBC % (auto) Sodium Potassium Chloride Carbon Dioxide Anion Gap BUN Creatinine Estim Creat Clear Calc Estimated GFR Cancelled POC Glucose Random Glucose Cancelled Fasting Glucose 106 H Calcium 6.0 L* D Cancelled Microbiology Microbiology Results: Microbiology 07/12/23 12:30 Blood - Venous Blood Culture - Final No growth after 5 days. 07/12/23 12:15 Blood - Venous Blood Culture - Final No growth after 5 days. 07/12/23 Unknown Urine Catheterized - Straight Catheter Urine Culture - Final No growth. Procedures Date of Service Date of Service: 07/20/23 Assessment & Plan Assessment and plan (1) Acute renal failure: Status: Acute Plan CHITO and severe hyperkalemia due to rhabdomyolysis. He has tubular injury due to rhabdomyolysis. Hyperkalemia At this point he has no signs of renal recovery yet. Watch urine output closely. HD today. We will schedule again for dialysis for Time Spent With Patient Time: Total time managing care of this patient today ____ minutes. Progress Note: Quality Stroke Does the patient have a stroke diagnosis?: No
[2023-07-20 13:18] LABS: Alanine Aminotransferase 89 U/L (0-40); Alkaline Phosphatase 75 U/L (39-117); Aspartate Amino Transferase 109 U/L (5-37); Bilirubin Direct 0.2 mg/dL (0.0-0.5); Bilirubin Total 0.5 mg/dL (0.0-1.0); Total Protein 5.9 g/dL (6.5-8.0)
[2023-07-20] MEDS: Heparin Sodium,Porcine 5,000 UNIT/ML VIAL 5000 UNIT SUBCUT ×2 (14:10→20:43)
[2023-07-20] MEDS: Lidocaine 4 % Patch ADH..PATCH 1 PATCH TRANSDERMA (14:11)
[2023-07-20 14:26] LABS: Glucose, Whole Blood 113 mg/dL (60-115)
[2023-07-20 15:03] VITALS: BP 108/46; PULSE 86; RESP 18; TEMP 36.3; O2SAT 96
[2023-07-20] MEDS: Acetaminophen 325 MG TABLET 650 MG PO ×2 (16:48→20:44)
[2023-07-20] MEDS: Insulin Lispro 100 UNIT/ML 3 ML VIAL SUBCUT (16:54)
[2023-07-20 16:55] LABS: Glucose, Whole Blood 170 mg/dL (60-115)
[2023-07-20 20:00] VITALS: BP 86/48; PULSE 105; RESP 20; TEMP 37.1; O2SAT 94
--- NOTE | 2023-07-20 20:10 | PC.NURSE ---
Assumed care of patient at 19:00. Pt noted to be hypotensive on evening vitals, 86/48, cuff correlating with manual BP. Sinus tach low 100's 102-105 on tele. Pt reports only symptom is I feel weak after dialysis today . Denies dizziness, vision changes, headache, chest pain, sob, n/v. POC obtained was 132. Covering Dr. Nate Morales notified. Labs advised and to be ordered by .
[2023-07-20 20:19] LABS: Glucose, Whole Blood 132 mg/dL (60-115)
--- NOTE | 2023-07-20 20:49 | ECG_ITS ---
Test Reason : chest pains Blood Pressure : / mmHG Vent. Rate : 104 BPM Atrial Rate : 104 BPM P-R Int : 140 ms QRS Dur : 082 ms QT Int : 334 ms P-R-T Axes : 044 039 054 degrees QTc Int : 439 ms Sinus tachycardia Otherwise normal ECG When compared with ECG of 19-JUL-2023 09:43, No significant change was found Referred By: Mariam Morales Electronically Signed By:HELDER ARNDT
[2023-07-20 20:52] LABS: Anion Gap 25 (12-20); Blood Urea Nitrogen 102 mg/dL (9-16); Calcium 6.8 mg/dL (8.4-10.2); Carbon Dioxide 17 mmol/L (22-29); Chloride 95 mmol/L (96-108); Creatinine Clr Calc Pharmacy 15.6; Estimated Glomerular Filt Rate 7; Glucose Random 122 mg/dL (60-115); Magnesium 2.4 mg/dL (1.6-2.6); Potassium 5.6 mmol/L (3.3-5.1); Sodium 131 mmol/L (135-145)
--- NOTE | 2023-07-20 20:57 | PC.NURSE ---
Addendum entered by Didi Hernandez RN 07/21/23 04:28: BP noted to be soft again on scheduled 04:00 hour vitals: 88/45 (map 60) on cuff, 94/50 on manual. Tele showing NSR 90's. Pt is arousable to voice, mentation maintained per initial assessment and pt denies symptoms. MD notified, advised no new orders as pt is asymptomatic. Addendum entered by Didi Hernandez RN 07/20/23 23:03: Pt reports pain is much better now and rates it 4/10 which he describes as more in his back now (chronic) after tylenol was given per pt request. HR and BP improved s/p bolus and first bag of albumin, HR low to mid 90's and BP 92/55. MD updated and rectal temp obtained per MD request showing 99.7 after tylenol. MD orders for lactic and BCx2, both drawn prior to initiating 1x vanco and scheduled zosyn. CXR taken. MD orders for repeat trop at 01:00. Patient resting in bed at this time, appearing comfortable. Breathing is even and unlabored. No distress noted. Addendum entered by Didi Hernandez RN 07/20/23 21:03: EKG showing Sinus Tach 104. Repeat BP per MD verbal request was 78/47. MD plans to order albumin as well as CXR. Original Note: Pt c/o chest pain since his fall prior to admission though states now crushing which is new. Dr. Nate Morales notified and at bedside. Written orders for 250ml NS bolus, trop, and EKG.
[2023-07-20] MEDS: 0.9 % Sodium Chloride 250 ML 999 ML IV (20:59)
[2023-07-20 21:05] VITALS: BP 78/47; PULSE 97; RESP 24; TEMP 37.3; O2SAT 94
[2023-07-20] MEDS: Albumin Human 25 % 100 ML 133.33 ML IV ×2 (21:21→22:10)
[2023-07-20 21:25] LABS: Troponin-I High Sensitivity 37.2 ng/L (<3.5-35.0)
[2023-07-20 22:28] VITALS: BP 92/55; PULSE 95; RESP 20; TEMP 37.6; O2SAT 95
--- NOTE | 2023-07-20 22:37 | PM.EVENT ---
Event Note Date of Service: 07/21/23 Event Note: 8:08 PM - BP dropped to 86/48. Patient c/o feeling weak after HD. Other VS stable. CBC, BMP, Mg and Phos ordered stat. Blood glucose 132. 8:42 PM - Per nursing patient is c/o chest pain. NS 250 ml bolus and albumin ordered. Patient is at risk of oveload due to renal failure. 8:58 PM - ECG showed no acute ischemic changes. Repeat workup showed improvement of hyponatremia and hyperkalemia. There is worsening leukocytosis. Creatinine dropped to 7.78. There is no worsening metabolic acidosis. Troponin X2 mildly elevated. Lactic acid is normal. CXR stat is unremarkable. Low grade fever noted -this was noted after patient took Tylenol for back pain. Blood cultures obtained. Will cover pt with IV antiobiotics. 1:54 AM - According to nurse. Patient is now resting/sleeping. VS 113/59, HR 90 and O2 sats 99%. Time Spent With Patient Time: Total time managing care of this patient today ____ minutes.
[2023-07-20] MEDS: vancomycin HCL 1,500 MG in 0.9 % Sodium Chloride 500 ML 333.33 MG IV (22:59)
[2023-07-20 23:14] LABS: Lactic Acid 1.6 mmol/L (0.5-2.0)
[2023-07-21] VITALS: BP 113/59; PULSE 90; RESP 17; TEMP 36.4; O2SAT 99
[2023-07-21] MEDS: Piperacillin Sodium/Tazobactam 2.25 GM in 0.9 % Sodium Chloride 50 ML IV ×2 (00:34→08:28)
[2023-07-21 01:37] LABS: Troponin-I High Sensitivity 47.9 ng/L (<3.5-35.0)
[2023-07-21 04:00] VITALS: BP 94/50; PULSE 99; RESP 18; TEMP 36.8; O2SAT 94
[2023-07-21 07:37] LABS: Glucose, Whole Blood 99 mg/dL (60-115)
[2023-07-21 08:00] VITALS: BP 112/74; PULSE 95; RESP 18; TEMP 36.4; O2SAT 96
[2023-07-21] MEDS: Heparin Sodium,Porcine 5,000 UNIT/ML VIAL 5000 UNIT SUBCUT ×3 (08:28→20:42)
[2023-07-21] MEDS: Lidocaine 4 % Patch ADH..PATCH 1 PATCH TRANSDERMA (08:29)
[2023-07-21] MEDS: Fluticasone Propionate Nasal 16 GM SPRAY 2 SPRAY NOSTRIL-B (08:30)
--- NOTE | 2023-07-21 10:31 | MHC.CM.PN ---
Per ROUNDS discussion, Patient spiked a fever overnight and is not yet medically cleared for dc. PT is recommending STR and CM will continue to follow.
[2023-07-21 11:14] VITALS: BP 124/59; PULSE 89; RESP 18; TEMP 36.2; O2SAT 97
--- NOTE | 2023-07-21 11:47 | HO.PM.IMPN ---
Subjective Subjective Date of Service: 07/21/23 Interval History: Seen and evaluated this morning plan for HD today had mild fever of 99 overnight with drop of BP to 80s after HD Review of Systems Review of Systems: Yes all other systems are reviewed and are negative Physical Exam Vital Signs: Vital Signs: Last Vital Signs Temp 97.1 F 07/21/23 11:14 Pulse 89 07/21/23 11:14 Resp 18 07/21/23 11:14 BP 124/59 L 07/21/23 11:14 Pulse Ox 97 07/21/23 11:14 O2 Del Method Room Air 07/21/23 11:14 BMI result Body Mass Index 49.2 Const: Other: Constitutional : Awake, interactive, morbidly obese, in mild distress Neck : Normal inspection, Supple Cardiovascular : RRR, no JVP, +1 bilateral lower extremity edema Respiratory : good bilateral air entry, no crackles, no wheezes or rhonchi Gastrointestinal: soft, lax, Normal bowel sounds, Non tender Skin : Warm, Dry Neurological : Alert & oriented x3, No focal deficit Objective Data Active Medications Acetaminophen (Acetaminophen 325 Mg Tablet) 650 mg PO Q4H PRN PRN Reason: Pain, Moderate(Pain Scale 4-6) Last Admin: 07/20/23 20:44 Dose: 650 mg Documented By: TRISTIN Fluticasone Propionate (Fluticasone Propionate Nasal 16 Gm [place]) 2 spray NOSTRIL-B DAILY [facility] Last Admin: 07/21/23 08:30 Dose: 2 spray Documented By: LUIS Heparin Sodium (Porcine) (Heparin Sodium,Porcine 5,000 Unit/Ml Vial) 5,000 unit SUBCUT TID [facility] Last Admin: 07/21/23 08:28 Dose: 5,000 unit Documented By: LUIS Dextrose (D10) 250 mls @ 750 mls/hr IV Q15M PRN PRN Reason: per Hypoglycemia Standing Ord. Piperacillin Sod/Tazobactam (Sod 2.25 gm/ Sodium Chloride) 50 mls @ 100 mls/hr IV Q8H [facility] Last Infusion: 07/21/23 09:14 Dose: Infused Documented By: LUIS Vancomycin HCl 500 mg/ Sodium (Chloride) 110 mls @ 110 mls/hr IV Q24H [facility] Insulin Human Lispro (Insulin Lispro 100 Unit/Ml 3 Ml Vial) 0 unit SUBCUT QIDACHS [facility]; Protocol Last Admin: 07/21/23 08:31 Dose: Not Given Documented By: LUIS Non-Admin Reason: No Insulin Coverage Lidocaine (Lidocaine 4 % Patch Adh..Patch) 1 patch TRANSDERMA DAILY [facility] Last Admin: 07/21/23 08:29 Dose: 1 patch Documented By: LUIS Pharmacy Consult (Consult Rx Vancomycin Dosing) 1 each MISCELLANE DAILY PRN PRN Reason: Consult order Labs 07/20/23 08:51 07/20/23 20:30 Labs: Laboratory Results - last 24 hr 07/20/23 07/20/23 07/20/23 08:51 14:18 16:51 Anion Gap Estim Creat Clear Calc Estimated GFR POC Glucose 113 170 H Random Glucose Lactic Acid Calcium Magnesium Total Bilirubin 0.5 Direct Bilirubin 0.2 AST 109 H ALT 89 H Alkaline Phosphatase 75 Troponin I High Sens Total Protein 5.9 L Albumin 3.0 L 07/20/23 07/20/23 07/20/23 20:12 20:30 22:49 Anion Gap 25 H Estim Creat Clear Calc 15.6 Estimated GFR 7 POC Glucose 132 H Random Glucose 122 H Lactic Acid 1.6 Calcium 6.8 L D Magnesium 2.4 Total Bilirubin Direct Bilirubin AST ALT Alkaline Phosphatase Troponin I High Sens 37.2 H Total Protein Albumin 07/21/23 07/21/23 01:06 07:33 Anion Gap Estim Creat Clear Calc Estimated GFR POC Glucose 99 Random Glucose Lactic Acid Calcium Magnesium Total Bilirubin Direct Bilirubin AST ALT Alkaline Phosphatase Troponin I High Sens 47.9 H Total Protein Albumin Assessment and Plan (1) Acute renal failure: Status: Acute (2) Hypotension: Status: Acute Plan 53 years old male with PMH of DM2, HTN, Asthma who presented to ED After sustaining a fall and laying on the floor for 9 hours found to have severe acute kidney injury from rhabdomyolysis. And hyperkalemia CHITO and severe hyperkalemia and acute metabolic acidosis due to rhabdomyolysis. ATN from rhabdo permacath placed 07/16/23 Nephrology team following, no significant recovery Hyperkalemia resolved chest pain non ischemic ekg, trop downtrending, likely MSK hypotension post dialysus, not due to sepsis Midodrine days of dialysis Discontinue antibiotics, no clear source of infection or fever. Fall CT head/cervical spine negative? for acute findings pt recommending str Acute?Rhabdomyolysis 2/2 fall and long stay on floor CK? elevated >67690, repeat ortho thought compartment syndrome unlikely Elevated troponin on admission EKG did not show clear ischemic changes Cardiology? thinks elevated troponin is related to rhabdomyolysis. Will do outpatient ischemic work up per cardiology team Acute lactic acidosis in the setting of rhabdo and renal failure not due to severe sepsis diabetes-? SSI DVT PPx Heparin reason for continued hospitalization: needs outpatient hd Quality Stroke Does the patient have a stroke diagnosis?: No VTE Prior VTE?: No VTE Risk Level:: Medical - moderate - high VTE Device Contraindication: N/A - Device Ordered VTE Drug Contraindication: N/A - Med Ordered
[2023-07-21 11:50] LABS: Glucose, Whole Blood 108 mg/dL (60-115)
--- NOTE | 2023-07-21 12:26 | MHC.CLN ---
F/U PT WITH INCREASED NUTRITION RISK R/T PRESSURE INJURY PO INTAKE VARIABLE DIET RX: 2000DM 2GM NA-APPROPRIATE RECOMMEND ADDING ENSURE CLEAR TID TO PROMOTE WOUND HEALING (SUPP IS RENAL FRIENDLY) SUPP PROVIDES 720KCALS, 24G PROTEIN WITH 100% ACCEPTANCE MONITOR PO INTAKE AND ENCOURAGE SUPPLEMENT
--- NOTE | 2023-07-21 13:16 | P.PNNP_ITS ---
Subjective Subjective Date of Service: 07/21/23 Principal diagnosis: Elevated troponins Interval history: Seen and evaluated this morning ; Had mild fever of 99 overnight with drop of BP to 80s after HD; All recent data reviewed; Due HD tomorrow Physical Exam 2 Vital Signs: Vital Signs: Last Vital Signs Temp 97.1 F 07/21/23 11:14 Pulse 89 07/21/23 11:14 Resp 18 07/21/23 11:14 BP 124/59 L 07/21/23 11:14 Pulse Ox 97 07/21/23 11:14 O2 Del Method Room Air 07/21/23 11:14 BMI result Body Mass Index 49.2 Const: General: comfortable and no acute distress HEENT: Head: Yes normocephalic Mouth: Normal oral and palatal mucosa present Eyes: EOM: EOMs intact bilaterally Neck: Neck: Yes supple Resp: Auscultation: clear to auscultation bilaterally Cardio: Jugular venous distension: no JVD Rate: regular rate GI: Palpation (GI): Soft to palpation Auscultation: normal bowel sounds : General: Yes no CVA tenderness Back/Spine/Pelvis: Back: no CVA tenderness Skin: General skin exam: no rashes or lesions noted Neuro: General: moves all extremities Objective Data Labs 07/20/23 08:51 07/20/23 20:30 Labs: Laboratory Results - last 24 hr 07/20/23 07/20/23 07/20/23 08:51 14:18 16:51 Sodium Potassium Chloride Carbon Dioxide Anion Gap BUN Creatinine Estim Creat Clear Calc Estimated GFR POC Glucose 113 170 H Random Glucose Lactic Acid Calcium Magnesium Total Bilirubin 0.5 Direct Bilirubin 0.2 AST 109 H ALT 89 H Alkaline Phosphatase 75 Troponin I High Sens Total Protein 5.9 L Albumin 3.0 L 07/20/23 07/20/23 07/20/23 20:12 20:30 22:49 Sodium 131 L Potassium 5.6 H Chloride 95 L Carbon Dioxide 17 L Anion Gap 25 H BUN 102 H Creatinine 7.78 H* Estim Creat Clear Calc 15.6 Estimated GFR 7 POC Glucose 132 H Random Glucose 122 H Lactic Acid 1.6 Calcium 6.8 L D Magnesium 2.4 Total Bilirubin Direct Bilirubin AST ALT Alkaline Phosphatase Troponin I High Sens 37.2 H Total Protein Albumin 07/21/23 07/21/23 07/21/23 01:06 07:33 11:12 Sodium Potassium Chloride Carbon Dioxide Anion Gap BUN Creatinine Estim Creat Clear Calc Estimated GFR POC Glucose 99 108 Random Glucose Lactic Acid Calcium Magnesium Total Bilirubin Direct Bilirubin AST ALT Alkaline Phosphatase Troponin I High Sens 47.9 H Total Protein Albumin Microbiology Microbiology Results: Microbiology 07/12/23 12:30 Blood - Venous Blood Culture - Final No growth after 5 days. 07/12/23 12:15 Blood - Venous Blood Culture - Final No growth after 5 days. 07/12/23 Unknown Urine Catheterized - Straight Catheter Urine Culture - Final No growth. 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 Initiated HD ; Next HD tomorrow; Fever W/U in progress Monitor function for renal recovery; C/W rest of current management Progress Note: Quality Stroke Does the patient have a stroke diagnosis?: No
[2023-07-21 15:40] VITALS: BP 117/57; PULSE 84; RESP 20; TEMP 36.6; O2SAT 98
[2023-07-21 16:45] LABS: Glucose, Whole Blood 94 mg/dL (60-115)
[2023-07-21] MEDS: Acetaminophen 325 MG TABLET 650 MG PO ×2 (17:59→23:35)
[2023-07-21 19:57] VITALS: BP 102/55; PULSE 88; RESP 20; TEMP 36.9; O2SAT 97
[2023-07-21 20:29] LABS: Glucose, Whole Blood 128 mg/dL (60-115)
[2023-07-22] VITALS: BP 95/57; PULSE 88; RESP 20; TEMP 36.4; O2SAT 97
[2023-07-22 04:00] VITALS: BP 119/47; PULSE 91; RESP 20; TEMP 36.8; O2SAT 97
[2023-07-22] MEDS: Acetaminophen 325 MG TABLET 650 MG PO ×2 (05:22→22:34)
[2023-07-22 07:55] LABS: Glucose, Whole Blood 85 mg/dL (60-115)
[2023-07-22 08:00] VITALS: BP 126/56; PULSE 76; RESP 20; TEMP 36.9; O2SAT 96
--- NOTE | 2023-07-22 08:46 | W.PM.DNNEP ---
Subjective Subjective Date of Service: 07/26/23 Principal diagnosis: Elevated troponins This patient was seen during dialysis. Interval history: Events noted Oliguric Physical Exam Vital Signs: Vital Signs: Last Vital Signs Temp 98.5 F 07/22/23 08:00 Pulse 76 07/22/23 08:00 Resp 20 07/22/23 08:00 BP 126/56 L 07/22/23 08:00 Pulse Ox 96 07/22/23 08:00 O2 Del Method Room Air 07/22/23 08:00 BMI result Body Mass Index 49.2 Const: General: ill appearing Neck: Neck: Yes supple Resp: Auscultation: clear to auscultation bilaterally Cardio: Palpation: no palpable S3 Heart sounds: no rubs GI: Palpation (GI): Soft to palpation Auscultation: normal bowel sounds Neuro: Motor exam (neuro): no asterixis Assessment & Plan Assessment and plan (1) Acute renal failure: Status: Acute Plan CHITO and severe hyperkalemia due to rhabdomyolysis. He has tubular injury due to rhabdomyolysis. Hyperkalemia At this point he has no signs of renal recovery yet. Watch urine output closely. HD today. We will schedule again for dialysis for TTS Time Spent With Patient Time: Total time managing care of this patient today ____ minutes. Procedures Date of Service Date of Service: 07/26/23
[2023-07-22 09:57] LABS: MANUAL DIFF FLAG NO
[2023-07-22 10:01] LABS: Basophils Percent Auto 0.3 % (0-2); Eosinophils Absolute Auto 0.1 X10*3/uL (0.0-0.4); Eosinophils Percent Auto 1.1 % (0-4); Hematocrit 37.8 % (42.0-52.0); Imm Gran Abs Auto 0.17 X10*3/uL (0.00-0.03); Imm Gran Pct Auto 1.3 % (0.0-0.4); Mean Corpuscular HGB Conc 34.4 g/dl (31.0-36.0); Mean Corpuscular Hemoglobin 29.1 pg (27.0-33.0); Mean Corpuscular Volume 84.8 fL (80.0-98.0); Mean Platelet Volume 8.6 fL (9.4-12.4); Monocytes Absolute Auto 0.7 X10*3/uL (0.1-1.2); Monocytes Percent Auto 5.5 % (2-11); Neutrophils Absolute Auto 10.7 x10*3/uL (2.0-8.3); Neutrophils Percent Auto 83.8 % (45-73); Platelet Count 278 X10*3/uL (160-400); Red Blood Count 4.46 X10*6/uL (4.60-5.80); White Blood Count 12.8 X10*3/uL (4.8-10.8)
--- NOTE | 2023-07-22 10:23 | MHC.CM.PN ---
Per ROUNDS discussion, Patient is medically cleared for dc. CM received a call from Sister/HCP/Lauryn and CM updated her on the dc goal. CM is searching for both a SNF bed and a HD slot; no bed offers yet.CM will follow.
[2023-07-22 10:25] LABS: Anion Gap 19 (12-20); Blood Urea Nitrogen 67 mg/dL (9-16); Calcium 7.4 mg/dL (8.4-10.2); Carbon Dioxide 23 mmol/L (22-29); Chloride 93 mmol/L (96-108); Creatinine Clr Calc Pharmacy 20.7; Estimated Glomerular Filt Rate 10; Glucose Random 80 mg/dL (60-115); Magnesium 2.2 mg/dL (1.6-2.6); Potassium 3.8 mmol/L (3.3-5.1); Sodium 131 mmol/L (135-145)
--- NOTE | 2023-07-22 10:28 | MHC.CM.PN ---
A referral was sent to [facility] for [employer] to assist with HD transportation from a SNF(if [facility] does not accept) and possible need for LTC.CM will follow.
[2023-07-22 11:14] LABS: Glucose, Whole Blood 103 mg/dL (60-115)
[2023-07-22] MEDS: Heparin Sodium,Porcine 5,000 UNIT/ML VIAL 5000 UNIT SUBCUT ×3 (11:20→21:43)
[2023-07-22] MEDS: Midodrine HCl 10 MG TABLET PO (11:20)
[2023-07-22] MEDS: Lidocaine 4 % Patch ADH..PATCH 1 PATCH TRANSDERMA (11:22)
[2023-07-22] MEDS: Fluticasone Propionate Nasal 16 GM SPRAY 2 SPRAY NOSTRIL-B (11:23)
--- NOTE | 2023-07-22 11:51 | MHC.CM.PN ---
Per Financial, Patient has [facility] already; the # is [phone].
--- NOTE | 2023-07-22 11:54 | HO.PM.IMPN ---
Subjective Subjective Date of Service: 07/22/23 Interval History: Seen and evaluated this morning Seen at HD session today no fever overnight Review of Systems Review of Systems: Yes all other systems are reviewed and are negative Physical Exam Vital Signs: Vital Signs: Last Vital Signs Temp 98.5 F 07/22/23 08:00 Pulse 76 07/22/23 08:00 Resp 20 07/22/23 08:00 BP 126/56 L 07/22/23 08:00 Pulse Ox 96 07/22/23 08:00 O2 Del Method Room Air 07/22/23 08:00 BMI result Body Mass Index 49.2 Const: Other: Constitutional : Awake, interactive, morbidly obese, in mild distress Neck : Normal inspection, Supple Cardiovascular : RRR, no JVP, +1 bilateral lower extremity edema Respiratory : good bilateral air entry, no crackles, no wheezes or rhonchi Gastrointestinal: soft, lax, Normal bowel sounds, Non tender Skin : Warm, Dry Neurological : Alert & oriented x3, No focal deficit Objective Data Active Medications Acetaminophen (Acetaminophen 325 Mg Tablet) 650 mg PO Q4H PRN PRN Reason: Pain, Moderate(Pain Scale 4-6) Last Admin: 07/22/23 05:22 Dose: 650 mg Documented By: SANTOSH Fluticasone Propionate (Fluticasone Propionate Nasal 16 Gm [place]) 2 spray NOSTRIL-B DAILY [facility] Last Admin: 07/22/23 11:23 Dose: 2 spray Documented By: XENIA Heparin Sodium (Porcine) (Heparin Sodium,Porcine 5,000 Unit/Ml Vial) 5,000 unit SUBCUT TID [facility] Last Admin: 07/22/23 11:20 Dose: 5,000 unit Documented By: XENIA Dextrose (D10) 250 mls @ 750 mls/hr IV Q15M PRN PRN Reason: per Hypoglycemia Standing Ord. Insulin Human Lispro (Insulin Lispro 100 Unit/Ml 3 Ml Vial) 0 unit SUBCUT QIDACHS [facility]; Protocol Last Admin: 07/22/23 11:21 Dose: Not Given Documented By: XENIA Non-Admin Reason: No Insulin Coverage Lidocaine (Lidocaine 4 % Patch Adh..Patch) 1 patch TRANSDERMA DAILY [facility] Last Admin: 07/22/23 11:22 Dose: 1 patch Documented By: XENIA Labs 07/22/23 09:05 07/22/23 09:05 Labs: Laboratory Results - last 24 hr 07/21/23 07/21/23 07/22/23 16:40 20:18 07:29 MCV MCH MCHC RDW Plt Count MPV Immature Gran % (Auto) Neut % (Auto) Lymph % (Auto) Emmet % (Auto) Eos % (Auto) Baso % (Auto) Lymph # (Auto) Emmet # (Auto) Eos # (Auto) Baso # (Auto) Abs Immat Gran (auto) Absolute Neuts (auto) Absolute Nucleated RBC Nucleated RBC % (auto) Anion Gap Estim Creat Clear Calc Estimated GFR POC Glucose 94 128 H 85 Random Glucose Calcium Magnesium 07/22/23 07/22/23 09:05 11:01 MCV 84.8 MCH 29.1 MCHC 34.4 RDW 14.0 Plt Count 278 MPV 8.6 L Immature Gran % (Auto) 1.3 H Neut % (Auto) 83.8 H Lymph % (Auto) 8.0 L Emmet % (Auto) 5.5 Eos % (Auto) 1.1 Baso % (Auto) 0.3 Lymph # (Auto) 1.0 L Emmet # (Auto) 0.7 Eos # (Auto) 0.1 Baso # (Auto) 0.0 Abs Immat Gran (auto) 0.17 H Absolute Neuts (auto) 10.7 H Absolute Nucleated RBC 0.000 Nucleated RBC % (auto) 0.0 Anion Gap 19 Estim Creat Clear Calc 20.7 Estimated GFR 10 POC Glucose 103 Random Glucose 80 Calcium 7.4 L D Magnesium 2.2 Microbiology Microbiology Results: Microbiology 07/20/23 22:49 Blood Culture - Preliminary Blood - Venous No growth after 24 hours. 07/20/23 22:49 Blood Culture - Preliminary Blood - Venous No growth after 24 hours. Assessment and Plan (1) Hypotension: Status: Acute (2) Acute renal failure: Status: Acute Plan 53 years old male with PMH of DM2, HTN, Asthma who presented to ED After sustaining a fall and laying on the floor for 9 hours found to have severe acute kidney injury from rhabdomyolysis. And hyperkalemia CHITO and severe hyperkalemia and acute metabolic acidosis due to ATN from rhabdomyolysis. HD TTS permacath placed 07/16/23 Nephrology team following, no significant recovery and will need dialysis spot Hyperkalemia resolved chest pain non ischemic ekg, trop downtrending, likely MSK hypotension post dialysus, not due to sepsis Midodrine days of dialysis Discontinue antibiotics, no clear source of infection or fever. Fall CT head/cervical spine negative? for acute findings pt recommending str Acute?Rhabdomyolysis 2/2 fall and long stay on floor CK? elevated >11372, repeat ortho thought compartment syndrome unlikely Elevated troponin on admission EKG did not show clear ischemic changes Cardiology? thinks elevated troponin is related to rhabdomyolysis. Will do outpatient ischemic work up per cardiology team Acute lactic acidosis in the setting of rhabdo and renal failure not due to severe sepsis diabetes-? SSI DVT PPx Heparin reason for continued hospitalization: needs outpatient hd Quality Stroke Does the patient have a stroke diagnosis?: No VTE Prior VTE?: No VTE Risk Level:: Medical - moderate - high VTE Device Contraindication: N/A - Device Ordered VTE Drug Contraindication: N/A - Med Ordered
[2023-07-22 12:00] VITALS: BP 119/67; PULSE 100; RESP 20; TEMP 36.4; O2SAT 97
[2023-07-22 16:00] VITALS: BP 130/56; PULSE 90; RESP 20; TEMP 36.2; O2SAT 96
[2023-07-22 16:40] LABS: Glucose, Whole Blood 123 mg/dL (60-115)
[2023-07-22 20:00] VITALS: BP 115/61; PULSE 103; RESP 18; TEMP 36.5; O2SAT 96
[2023-07-22 20:50] LABS: Glucose, Whole Blood 116 mg/dL (60-115)
[2023-07-23] VITALS (8 sets, daily range): BP systolic 105–140; BP diastolic 55–75; PULSE 76–102; RESP 18–22; TEMP 36.3–37.5; O2SAT 96–99
[2023-07-23 07:34] LABS: Glucose, Whole Blood 95 mg/dL (60-115)
[2023-07-23] MEDS: Lidocaine 4 % Patch ADH..PATCH 1 PATCH TRANSDERMA (10:45)
[2023-07-23] MEDS: Heparin Sodium,Porcine 5,000 UNIT/ML VIAL 5000 UNIT SUBCUT ×3 (10:45→22:25)
[2023-07-23] MEDS: Fluticasone Propionate Nasal 16 GM SPRAY 2 SPRAY NOSTRIL-B (10:45)
[2023-07-23 11:31] LABS: Glucose, Whole Blood 122 mg/dL (60-115)
--- NOTE | 2023-07-23 11:34 | MHC.CLN ---
F/U PT EVAL BY WOUND NURSE AND NO PRESSURE INJURY PO INTAKE 100% DIET RX: 1800DM 2GM NA-APPROPRIATE WILL D/C ENSURE CLEAR TID TO [facility] TO FOLLOW WEEKLY
--- NOTE | 2023-07-23 12:16 | P.PNIM_ITS ---
Subjective Subjective Date of Service: 07/23/23 Interval History: Seen and evaluated this morning feels tired from laying down and weak all over no fever overnight Review of Systems Review of Systems: Yes all other systems are reviewed and are negative Physical Exam 2 Vital Signs: Vital Signs: Last Vital Signs Temp 98.4 F 07/23/23 12:00 Pulse 93 07/23/23 12:00 Resp 20 07/23/23 12:00 BP 112/55 L 07/23/23 12:00 Pulse Ox 98 07/23/23 12:00 O2 Del Method Room Air 07/23/23 12:00 BMI result Body Mass Index 49.2 Const: Other: Constitutional : Awake, interactive, morbidly obese, in mild distress Neck : Normal inspection, Supple Cardiovascular : RRR, no JVP, +1 bilateral lower extremity edema Respiratory : good bilateral air entry, no crackles, no wheezes or rhonchi Gastrointestinal: soft, lax, Normal bowel sounds, Non tender Skin : Warm, Dry Neurological : Alert & oriented x3, No focal deficit Objective Data Active Medications Acetaminophen (Acetaminophen 325 Mg Tablet) 650 mg PO Q4H PRN PRN Reason: Pain, Moderate(Pain Scale 4-6) Last Admin: 07/22/23 22:34 Dose: 650 mg Documented By: FERNANDO Fluticasone Propionate (Fluticasone Propionate Nasal 16 Gm [place]) 2 spray NOSTRIL-B DAILY [facility] Last Admin: 07/23/23 10:45 Dose: 2 spray Documented By: TIA Heparin Sodium (Porcine) (Heparin Sodium,Porcine 5,000 Unit/Ml Vial) 5,000 unit SUBCUT TID [facility] Last Admin: 07/23/23 10:45 Dose: 5,000 unit Documented By: TIA Dextrose (D10) 250 mls @ 750 mls/hr IV Q15M PRN PRN Reason: per Hypoglycemia Standing Ord. Insulin Human Lispro (Insulin Lispro 100 Unit/Ml 3 Ml Vial) 0 unit SUBCUT QIDACHS [facility]; Protocol Last Admin: 07/23/23 11:39 Dose: Not Given Documented By: TIA Non-Admin Reason: No Insulin Coverage Lidocaine (Lidocaine 4 % Patch Adh..Patch) 1 patch TRANSDERMA DAILY [facility] Last Admin: 07/23/23 10:45 Dose: 1 patch Documented By: TIA Labs 07/22/23 09:05 07/22/23 09:05 Labs: Laboratory Results - last 24 hr 07/22/23 07/22/23 07/22/23 09:05 16:36 20:44 POC Glucose 123 H 116 H Total Creatine Kinase 7764 H 07/23/23 07/23/23 07:08 11:24 POC Glucose 95 122 H Total Creatine Kinase Microbiology Microbiology Results: Microbiology 07/20/23 22:49 Blood Culture - Preliminary Blood - Venous No growth after 48 hours. 07/20/23 22:49 Blood Culture - Preliminary Blood - Venous No growth after 48 hours. Assessment and Plan (1) Acute renal failure: Status: Acute (2) Need for acute hemodialysis: Status: Acute Plan 53 years old male with PMH of DM2, HTN, Asthma who presented to ED After sustaining a fall and laying on the floor for 9 hours found to have severe acute kidney injury from rhabdomyolysis. And hyperkalemia CHITO and severe hyperkalemia and acute metabolic acidosis due to ATN from rhabdomyolysis. Hyperkalemia resolved HD TTS permacath placed 07/16/23 Nephrology team following, no significant recovery and will need dialysis spot chest pain non ischemic ekg, trop downtrending, likely MSK hypotension post dialysus, not due to sepsis Midodrine days of dialysis Discontinue antibiotics, no clear source of infection or fever. Fall CT head/cervical spine negative? for acute findings pt recommending str Acute?Rhabdomyolysis 2/2 fall and long stay on floor CK? elevated >71377, repeat ortho thought compartment syndrome unlikely Elevated troponin on admission EKG did not show clear ischemic changes Cardiology? thinks elevated troponin is related to rhabdomyolysis. Will do outpatient ischemic work up per cardiology team Acute lactic acidosis in the setting of rhabdo and renal failure not due to severe sepsis diabetes-? SSI DVT PPx Heparin reason for continued hospitalization: needs outpatient hd Quality Stroke Does the patient have a stroke diagnosis?: No VTE Prior VTE?: No VTE Risk Level:: Medical - moderate - high VTE Device Contraindication: N/A - Device Ordered VTE Drug Contraindication: N/A - Med Ordered
--- NOTE | 2023-07-23 13:29 | MHC.CM.PN ---
EMR reviewed and per MD rounds, pt is medically cleared for discharge but unable to due to no current bed offers for [facility]. [facility] following and may have a be with HD slot next week. Pts sister/HCP Lauryn called and was given an update.
[2023-07-23 17:05] LABS: Glucose, Whole Blood 91 mg/dL (60-115)
--- NOTE | 2023-07-23 20:09 | P.PNNP_ITS ---
Subjective Subjective Date of Service: 07/23/23 Principal diagnosis: Elevated troponins Interval history: Seen and evaluated this morning ; no fever overnight ; No renal recovery yet; Due HD tomorrow Physical Exam 2 Vital Signs: Vital Signs: Last Vital Signs Temp 98.6 F 07/23/23 15:30 Pulse 96 07/23/23 15:30 Resp 22 H 07/23/23 15:30 BP 140/69 H 07/23/23 15:30 Pulse Ox 97 07/23/23 15:30 O2 Del Method Room Air 07/23/23 15:30 BMI result Body Mass Index 49.2 Const: General: comfortable and no acute distress O rientation/consciousness: patient oriented x3 HEENT: Head: Yes normocephalic Mouth: Normal oral and palatal mucosa present Eyes: EOM: EOMs intact bilaterally Neck: Neck: Yes supple Resp: Auscultation: clear to auscultation bilaterally Cardio: Jugular venous distension: no JVD Rate: regular rate GI: Palpation (GI): Soft to palpation Auscultation: normal bowel sounds : General: Yes no CVA tenderness Back/Spine/Pelvis: Back: no CVA tenderness Skin: General skin exam: no rashes or lesions noted Neuro: General: patient oriented x3 and moves all extremities Objective Data Labs 07/22/23 09:05 07/22/23 09:05 Labs: Laboratory Results - last 24 hr 07/22/23 07/23/23 07/23/23 20:44 07:08 11:24 POC Glucose 116 H 95 122 H 07/23/23 16:46 POC Glucose 91 Microbiology Microbiology Results: Microbiology 07/20/23 22:49 Blood - Venous Blood Culture - Preliminary No growth after 48 hours. 07/20/23 22:49 Blood - Venous Blood Culture - Preliminary No growth after 48 hours. 07/12/23 12:30 Blood - Venous Blood Culture - Final No growth after 5 days. 07/12/23 12:15 Blood - Venous Blood Culture - Final No growth after 5 days. 07/12/23 Unknown Urine Catheterized - Straight Catheter Urine Culture - Final No growth. 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 Initiated HD ; Next HD tomorrow; does not have an outpatient spot yet Monitor function for renal recovery; C/W rest of current management Progress Note: Quality Stroke Does the patient have a stroke diagnosis?: No
[2023-07-23 20:30] LABS: Glucose, Whole Blood 107 mg/dL (60-115)
[2023-07-23] MEDS: Acetaminophen 325 MG TABLET 650 MG PO (22:19)
[2023-07-24 04:00] VITALS: BP 106/62; PULSE 92; RESP 19; TEMP 37.3; O2SAT 96
--- NOTE | 2023-07-24 10:12 | HO.PM.IMPN ---
Subjective Subjective Date of Service: 07/24/23 Interval History: Being f/u for acute rhabdomylosis with pigment neprhopathy now on dialysis, no new issues, awaiting outpatient dialysis spot Review of Systems Review of Systems: Yes all other systems are reviewed and are negative Physical Exam Vital Signs: Vital Signs: Last Vital Signs Temp 99.2 F 07/24/23 04:00 Pulse 92 07/24/23 04:00 Resp 19 07/24/23 04:00 BP 106/62 07/24/23 04:00 Pulse Ox 96 07/24/23 04:00 O2 Del Method Room Air 07/24/23 04:00 BMI result Body Mass Index 49.2 Const: Other: Constitutional : Awake, interactive, morbidly obese, in mild distress Neck : Normal inspection, Supple Cardiovascular : RRR, no JVP, +1 bilateral lower extremity edema Respiratory : good bilateral air entry, no crackles, no wheezes or rhonchi Gastrointestinal: soft, lax, Normal bowel sounds, Non tender Skin : Warm, Dry Neurological : Alert & oriented x3, No focal deficit Objective Data Active Medications Acetaminophen (Acetaminophen 325 Mg Tablet) 650 mg PO Q4H PRN PRN Reason: Pain, Moderate(Pain Scale 4-6) Last Admin: 07/23/23 22:19 Dose: 650 mg Documented By: NANCY Fluticasone Propionate (Fluticasone Propionate Nasal 16 Gm [place]) 2 spray NOSTRIL-B DAILY [facility] Last Admin: 07/23/23 10:45 Dose: 2 spray Documented By: TIA Heparin Sodium (Porcine) (Heparin Sodium,Porcine 5,000 Unit/Ml Vial) 5,000 unit SUBCUT TID [facility] Last Admin: 07/23/23 22:25 Dose: 5,000 unit Documented By: NANCY Dextrose (D10) 250 mls @ 750 mls/hr IV Q15M PRN PRN Reason: per Hypoglycemia Standing Ord. Insulin Human Lispro (Insulin Lispro 100 Unit/Ml 3 Ml Vial) 0 unit SUBCUT QIDACHS [facility]; Protocol Last Admin: 07/24/23 07:49 Dose: Not Given Documented By: MARIYA Non-Admin Reason: Off unit: Dialysis Lidocaine (Lidocaine 4 % Patch Adh..Patch) 1 patch TRANSDERMA DAILY [facility] Last Admin: 07/23/23 10:45 Dose: 1 patch Documented By: TIA Labs 07/22/23 09:05 07/22/23 09:05 Labs: Laboratory Results - last 24 hr 07/23/23 07/23/23 07/23/23 11:24 16:46 20:16 POC Glucose 122 H 91 107 Assessment and Plan (1) Acute renal failure: Status: Acute (2) Need for acute hemodialysis: Status: Acute Plan 53 years old male with PMH of DM2, HTN, Asthma who presented to ED After sustaining a fall and laying on the floor for 9 hours found to have severe acute kidney injury from rhabdomyolysis. And hyperkalemia CHITO and severe hyperkalemia and acute metabolic acidosis due to ATN from rhabdomyolysis and no renal recovery and started on HD, no TTS, High K resolved. permacath placed 07/16/23. Awaiting outpatient dialysis spot chest pain--resolved, negative work up hypotension post dialysus, not due to sepsis Midodrine days of dialysis Fall CT head/cervical spine negative? for acute findings pt recommending str Acute?Rhabdomyolysis 2/2 fall and long stay on floor CK? elevated >97072, repeat 7764 as of 07/21, no evidence of compartmental syndrome Elevated troponin on admission EKG did not show clear ischemic changes Cardiology? thinks elevated troponin is related to rhabdomyolysis. Will do outpatient ischemic work up per cardiology team Acute lactic acidosis in the setting of rhabdo and renal failure not due to severe sepsis diabetes-? SSI DVT PPx Heparin reason for continued hospitalization: needs outpatient hd can transfer to [facility] Stroke Does the patient have a stroke diagnosis?: No VTE Prior VTE?: No VTE Risk Level:: Medical - moderate - high VTE Device Contraindication: N/A - Device Ordered VTE Drug Contraindication: N/A - Med Ordered
[2023-07-24] MEDS: Lidocaine 4 % Patch ADH..PATCH 1 PATCH TRANSDERMA (10:52)
[2023-07-24] MEDS: Heparin Sodium,Porcine 5,000 UNIT/ML VIAL 5000 UNIT SUBCUT ×3 (10:53→21:34)
[2023-07-24] MEDS: Fluticasone Propionate Nasal 16 GM SPRAY 2 SPRAY NOSTRIL-B (10:54)
[2023-07-24 11:30] LABS: Glucose, Whole Blood 87 mg/dL (60-115)
[2023-07-24 11:45] VITALS: BP 105/60; PULSE 111; RESP 20; TEMP 36.4; O2SAT 98
[2023-07-24 15:50] LABS: Glucose, Whole Blood 158 mg/dL (60-115)
[2023-07-24 16:00] VITALS: BP 109/62; PULSE 102; RESP 20; TEMP 36.1; O2SAT 97
[2023-07-24] MEDS: Insulin Lispro 100 UNIT/ML 3 ML VIAL SUBCUT (16:13)
[2023-07-24] MEDS: Acetaminophen 325 MG TABLET 650 MG PO ×2 (16:14→21:32)
[2023-07-24 20:00] VITALS: BP 114/70; PULSE 97; RESP 20; TEMP 36.3; O2SAT 98
[2023-07-24 20:39] LABS: Glucose, Whole Blood 112 mg/dL (60-115)
[2023-07-25] VITALS: BP 129/62; PULSE 86; RESP 16; TEMP 36; O2SAT 95
[2023-07-25 04:00] VITALS: BP 142/62; PULSE 110; RESP 16; TEMP 36; O2SAT 95
[2023-07-25 07:47] LABS: Glucose, Whole Blood 100 mg/dL (60-115)
[2023-07-25 08:00] VITALS: BP 118/67; PULSE 105; RESP 20; TEMP 36.2; O2SAT 100
[2023-07-25] MEDS: Heparin Sodium,Porcine 5,000 UNIT/ML VIAL 5000 UNIT SUBCUT ×3 (08:23→20:34)
[2023-07-25] MEDS: Lidocaine 4 % Patch ADH..PATCH 1 PATCH TRANSDERMA (08:23)
[2023-07-25] MEDS: Fluticasone Propionate Nasal 16 GM SPRAY 2 SPRAY NOSTRIL-B (08:23)
--- NOTE | 2023-07-25 08:58 | P.PNIM_ITS ---
Subjective Subjective Date of Service: 07/25/23 Interval History: Being f/u for acute rhabdomylosis with pigment neprhopathy now on dialysis, no new issues, awaiting outpatient dialysis spot, wants to go home Physical Exam 2 Vital Signs: Vital Signs: Last Vital Signs Temp 97.2 F 07/25/23 08:00 Pulse 105 H 07/25/23 08:00 Resp 20 07/25/23 08:00 BP 118/67 07/25/23 08:00 Pulse Ox 100 07/25/23 08:00 O2 Del Method Room Air 07/25/23 08:00 BMI result Body Mass Index 49.2 Constitutional : Awake, interactive, morbidly obese, in mild distress Neck : Normal inspection, Supple Cardiovascular : RRR, no JVP, +1 bilateral lower extremity edema Respiratory : good bilateral air entry, no crackles, no wheezes or rhonchi Gastrointestinal: soft, lax, Normal bowel sounds, Non tender Skin : Warm, Dry Neurological : Alert & oriented x3, No focal deficit Const: Other: Constitutional : Awake, interactive, morbidly obese, in mild distress Neck : Normal inspection, Supple Cardiovascular : RRR, no JVP, +1 bilateral lower extremity edema Respiratory : good bilateral air entry, no crackles, no wheezes or rhonchi Gastrointestinal: soft, lax, Normal bowel sounds, Non tender Skin : Warm, Dry Neurological : Alert & oriented x3, No focal deficit Objective Data Active Medications Acetaminophen (Acetaminophen 325 Mg Tablet) 650 mg PO Q4H PRN PRN Reason: Pain, Moderate(Pain Scale 4-6) Last Admin: 07/24/23 21:32 Dose: 650 mg Documented By: TJ Fluticasone Propionate (Fluticasone Propionate Nasal 16 Gm [place]) 2 spray NOSTRIL-B DAILY [facility] Last Admin: 07/25/23 08:23 Dose: 2 spray Documented By: MARIYA Heparin Sodium (Porcine) (Heparin Sodium,Porcine 5,000 Unit/Ml Vial) 5,000 unit SUBCUT TID [facility] Last Admin: 07/25/23 08:23 Dose: 5,000 unit Documented By: MARIYA Dextrose (D10) 250 mls @ 750 mls/hr IV Q15M PRN PRN Reason: per Hypoglycemia Standing Ord. Insulin Human Lispro (Insulin Lispro 100 Unit/Ml 3 Ml Vial) 0 unit SUBCUT QIDACHS [facility]; Protocol Last Admin: 07/25/23 08:18 Dose: Not Given Documented By: MARIYA Non-Admin Reason: No Insulin Coverage Lidocaine (Lidocaine 4 % Patch Adh..Patch) 1 patch TRANSDERMA DAILY [facility] Last Admin: 07/25/23 08:23 Dose: 1 patch Documented By: MARIYA Labs 07/22/23 09:05 07/22/23 09:05 Labs: Laboratory Results - last 24 hr 07/24/23 07/24/23 07/24/23 11:25 15:33 20:19 POC Glucose 87 158 H 112 07/25/23 07:35 POC Glucose 100 Assessment and Plan (1) Acute renal failure: Status: Acute (2) Need for acute hemodialysis: Status: Acute Plan 53 years old male with PMH of DM2, HTN, Asthma who presented to ED After sustaining a fall and laying on the floor for 9 hours found to have severe acute kidney injury from rhabdomyolysis. And hyperkalemia CHITO and severe hyperkalemia and acute metabolic acidosis due to ATN from rhabdomyolysis and no renal recovery and started on HD, no TTS, High K resolved. permacath placed 07/16/23. Awaiting outpatient dialysis spot chest pain--resolved, negative work up hypotension post dialysus, not due to sepsis Midodrine days of dialysis Fall CT head/cervical spine negative? for acute findings pt recommending str Acute?Rhabdomyolysis 2/2 fall and long stay on floor CK? elevated >14035, repeat 7764 as of 07/21, no evidence of compartmental syndrome. [place] cpk today Elevated troponin on admission EKG did not show clear ischemic changes Cardiology? thinks elevated troponin is related to rhabdomyolysis. Will do outpatient ischemic work up per cardiology team Acute lactic acidosis in the setting of rhabdo and renal failure not due to severe sepsis diabetes-? SSI DVT PPx Heparin reason for continued hospitalization: needs outpatient hd can transfer to [facility] Stroke Does the patient have a stroke diagnosis?: No VTE Prior VTE?: No VTE Risk Level:: Medical - moderate - high VTE Device Contraindication: N/A - Device Ordered VTE Drug Contraindication: N/A - Med Ordered
[2023-07-25 11:02] LABS: Glucose, Whole Blood 126 mg/dL (60-115)
[2023-07-25 11:56] VITALS: BP 114/59; PULSE 103; RESP 20; TEMP 36.2; O2SAT 96
[2023-07-25 16:00] VITALS: BP 126/72; PULSE 90; RESP 20; TEMP 36.2; O2SAT 97
[2023-07-25 16:27] LABS: Glucose, Whole Blood 98 mg/dL (60-115)
[2023-07-25 19:59] VITALS: BP 131/82; PULSE 97; RESP 18; TEMP 36.6; O2SAT 97
[2023-07-25 20:27] LABS: Glucose, Whole Blood 85 mg/dL (60-115)
[2023-07-26] VITALS (8 sets, daily range): BP systolic 125–162; BP diastolic 69–88; PULSE 99–117; RESP 18–20; TEMP 36.1–37.2; O2SAT 94–99
[2023-07-26 07:33] LABS: Glucose, Whole Blood 98 mg/dL (60-115)
[2023-07-26] MEDS: Lidocaine 4 % Patch ADH..PATCH 1 PATCH TRANSDERMA (09:25)
[2023-07-26] MEDS: Heparin Sodium,Porcine 5,000 UNIT/ML VIAL 5000 UNIT SUBCUT ×3 (09:27→20:35)
[2023-07-26] MEDS: Fluticasone Propionate Nasal 16 GM SPRAY 2 SPRAY NOSTRIL-B (09:34)
--- NOTE | 2023-07-26 10:33 | MHC.CM.PN ---
Patient is medically cleared for dc. CM awaits SNF bed offer, new HD slot & [employer]ARP auth.[facility] is following. CM will follow.
--- NOTE | 2023-07-26 10:43 | MHC.CM.PN ---
CM spoke with Patient's Sister/HCP/Lauryn and updated her on Jason's progress and dc planning.
[2023-07-26 10:55] LABS: Anion Gap 23 (12-20); Blood Urea Nitrogen 105 mg/dL (9-16); Calcium 9.4 mg/dL (8.4-10.2); Carbon Dioxide 21 mmol/L (22-29); Chloride 96 mmol/L (96-108); Creatinine Clr Calc Pharmacy 10.1; Estimated Glomerular Filt Rate 4; Glucose Random 97 mg/dL (60-115); Potassium 4.9 mmol/L (3.3-5.1); Sodium 135 mmol/L (135-145)
[2023-07-26 11:28] LABS: Glucose, Whole Blood 105 mg/dL (60-115)
--- NOTE | 2023-07-26 12:01 | P.PNIM_ITS ---
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, no new issues, awaiting outpatient dialysis spot, wants to go home, and seems a bit somnolent today, BUN and creatinine doubled Physical Exam 2 Vital Signs: Vital Signs: Last Vital Signs Temp 97.0 F 07/26/23 11:35 Pulse 117 H 07/26/23 11:36 Resp 18 07/26/23 11:35 BP 133/80 07/26/23 11:35 Pulse Ox 94 07/26/23 11:36 O2 Del Method Nasal Cannula 07/26/23 11:35 O2 Flow Rate 2 07/26/23 11:35 BMI result Body Mass Index 49.2 Constitutional : Awake, interactive, morbidly obese, in mild distress Neck : Normal inspection, Supple Cardiovascular : RRR, no JVP, +1 bilateral lower extremity edema Respiratory : good bilateral air entry, no crackles, no wheezes or rhonchi Gastrointestinal: soft, lax, Normal bowel sounds, Non tender Skin : Warm, Dry Neurological : Alert & oriented x3, No focal deficit Objective Data Active Medications Acetaminophen (Acetaminophen 325 Mg Tablet) 650 mg PO Q4H PRN PRN Reason: Pain, Moderate(Pain Scale 4-6) Last Admin: 07/24/23 21:32 Dose: 650 mg Documented By: TJ Fluticasone Propionate (Fluticasone Propionate Nasal 16 Gm [place]) 2 spray NOSTRIL-B DAILY [facility] Last Admin: 07/26/23 09:34 Dose: 2 spray Documented By: RAUDEL Heparin Sodium (Porcine) (Heparin Sodium,Porcine 5,000 Unit/Ml Vial) 5,000 unit SUBCUT TID [facility] Last Admin: 07/26/23 09:27 Dose: 5,000 unit Documented By: RAUDEL Dextrose (D10) 250 mls @ 750 mls/hr IV Q15M PRN PRN Reason: per Hypoglycemia Standing Ord. Insulin Human Lispro (Insulin Lispro 100 Unit/Ml 3 Ml Vial) 0 unit SUBCUT QIDACHS [facility]; Protocol Last Admin: 07/26/23 11:31 Dose: Not Given Documented By: RAUDEL Non-Admin Reason: No Insulin Coverage Lidocaine (Lidocaine 4 % Patch Adh..Patch) 1 patch TRANSDERMA DAILY [facility] Last Admin: 07/26/23 09:25 Dose: 1 patch Documented By: RAUDEL Labs 07/22/23 09:05 07/26/23 10:14 Labs: Laboratory Results - last 24 hr 07/25/23 07/25/23 07/26/23 16:16 20:16 07:14 Hold Purple Top Anion Gap Estim Creat Clear Calc Estimated GFR POC Glucose 98 85 98 Random Glucose Calcium Total Creatine Kinase 07/26/23 07/26/23 10:14 11:17 Hold Purple Top SEE NOTE Anion Gap 23 H Estim Creat Clear Calc 10.1 Estimated GFR 4 POC Glucose 105 Random Glucose 97 Calcium 9.4 D Total Creatine Kinase 1087 H Microbiology Microbiology Results: Microbiology 07/20/23 22:49 Blood Culture - Final Blood - Venous No growth after 5 days. 07/20/23 22:49 Blood Culture - Final Blood - Venous No growth after 5 days. Assessment and Plan (1) Acute renal failure: Status: Acute (2) Need for acute hemodialysis: Status: Acute Plan 53 years old male with PMH of DM2, HTN, Asthma who presented to ED After sustaining a fall and laying on the floor for 9 hours found to have severe acute kidney injury from rhabdomyolysis. And hyperkalemia CHITO and severe hyperkalemia and acute metabolic acidosis due to ATN from rhabdomyolysis and no renal recovery and started on HD, no TTS, High K resolved. permacath placed 07/16/23. Awaiting outpatient dialysis spot, BUN/Cr very high today, somnolent will check with Nephro if needs dialsysis chest pain--resolved, negative work up hypotension post dialysus, not due to sepsis Midodrine days of dialysis Fall CT head/cervical spine negative? for acute findings pt recommending str Acute?Rhabdomyolysis 2/2 fall and long stay on floor CK? elevated >61321, repeat 7764 as of 07/21, no evidence of compartmental syndrome. Checck cpk today Elevated troponin on admission EKG did not show clear ischemic changes Cardiology? thinks elevated troponin is related to rhabdomyolysis. Will do outpatient ischemic work up per cardiology team Acute lactic acidosis in the setting of rhabdo and renal failure not due to severe sepsis diabetes-? SSI DVT PPx Heparin reason for continued hospitalization: needs outpatient hd can transfer to [facility] Stroke Does the patient have a stroke diagnosis?: No VTE Prior VTE?: No VTE Risk Level:: Medical - moderate - high VTE Device Contraindication: N/A - Device Ordered VTE Drug Contraindication: N/A - Med Ordered
--- NOTE | 2023-07-26 13:09 | P.PNNP_ITS ---
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, no new issues, awaiting outpatient dialysis spot, wants to go home, and seems a bit somnolent today, BUN and creatinine doubled Physical Exam 2 Vital Signs: Vital Signs: Last Vital Signs Temp 97.0 F 07/26/23 11:35 Pulse 117 H 07/26/23 11:36 Resp 18 07/26/23 11:35 BP 133/80 07/26/23 11:35 Pulse Ox 94 07/26/23 11:36 O2 Del Method Nasal Cannula 07/26/23 11:35 O2 Flow Rate 2 07/26/23 11:35 BMI result Body Mass Index 49.2 Const: Other: Constitutional : Awake, interactive, morbidly obese, in mild distress Neck : Normal inspection, Supple Cardiovascular : RRR, no JVP, +1 bilateral lower extremity edema Respiratory : good bilateral air entry, no crackles, no wheezes or rhonchi Gastrointestinal: soft, lax, Normal bowel sounds, Non tender Skin : Warm, Dry Neurological : Alert & oriented x3, No focal deficit Objective Data Labs 07/22/23 09:05 07/26/23 10:14 Labs: Laboratory Results - last 24 hr 07/25/23 07/25/23 07/26/23 16:16 20:16 07:14 Hold Purple Top Sodium Potassium Chloride Carbon Dioxide Anion Gap BUN Creatinine Estim Creat Clear Calc Estimated GFR POC Glucose 98 85 98 Random Glucose Calcium Total Creatine Kinase 07/26/23 07/26/23 10:14 11:17 Hold Purple Top SEE NOTE Sodium 135 Potassium 4.9 D Chloride 96 Carbon Dioxide 21 L Anion Gap 23 H BUN 105 H Creatinine 12.00 H* Estim Creat Clear Calc 10.1 Estimated GFR 4 POC Glucose 105 Random Glucose 97 Calcium 9.4 D Total Creatine Kinase 1087 H Microbiology Microbiology Results: Microbiology 07/20/23 22:49 Blood - Venous Blood Culture - Final No growth after 5 days. 07/20/23 22:49 Blood - Venous Blood Culture - Final No growth after 5 days. 07/12/23 12:30 Blood - Venous Blood Culture - Final No growth after 5 days. 07/12/23 12:15 Blood - Venous Blood Culture - Final No growth after 5 days. 07/12/23 Unknown Urine Catheterized - Straight Catheter Urine Culture - Final No growth. Procedures Date of Service Date of Service: 07/27/23 Assessment & Plan Assessment and plan (1) Acute renal failure: Status: Acute Plan CHITO and severe hyperkalemia due to rhabdomyolysis. He has tubular injury due to rhabdomyolysis. Hyperkalemia At this point he has no signs of renal recovery yet. Watch urine output closely. HD 3 times a week We will schedule again for dialysis for TTS He has an outpatient dialysis spot outlined below dialysis. Time Spent With Patient Time: Total time managing care of this patient today ____ minutes. Progress Note: Quality Stroke Does the patient have a stroke diagnosis?: No
[2023-07-26 16:39] LABS: Glucose, Whole Blood 91 mg/dL (60-115)
--- NOTE | 2023-07-26 18:54 | PC.NURSE ---
Report recieved. Care assumed.Pt in bed with eyes closed.
--- NOTE | 2023-07-26 19:11 | PC.NURSE ---
Report received from off going nurse. Care assumed. Pt supine in bed watching tv.
[2023-07-26 20:22] LABS: Glucose, Whole Blood 88 mg/dL (60-115)
[2023-07-27] MEDS: Acetaminophen 325 MG TABLET 650 MG PO (03:25)
[2023-07-27 03:37] VITALS: BP 127/75; PULSE 107; RESP 18; TEMP 36.8; O2SAT 95
[2023-07-27 07:51] LABS: Glucose, Whole Blood 91 mg/dL (60-115)
[2023-07-27 07:52] VITALS: BP 121/70; PULSE 102; RESP 18; TEMP 36.3; O2SAT 94
--- NOTE | 2023-07-27 08:56 | W.PM.DNNEP ---
Subjective Subjective Date of Service: 07/29/23 Principal diagnosis: Elevated troponins This patient was seen during dialysis. Interval history: Events noted Oliguric Physical Exam Vital Signs: Vital Signs: Last Vital Signs Temp 97.4 F 07/27/23 07:52 Pulse 102 H 07/27/23 07:52 Resp 18 07/27/23 07:52 BP 121/70 07/27/23 07:52 Pulse Ox 94 07/27/23 07:52 O2 Del Method Room Air 07/27/23 07:52 O2 Flow Rate 2 07/26/23 11:35 BMI result Body Mass Index 49.2 Awake. Comfortable. Neck is supple. Mucosa moist. Lungs bilateral scattered rhonchi. Heart S1-S2 heard no gallop. Abdomen soft. Extremities no edema. No involuntary movements. No myoclonus. Const: Other: Constitutional : Awake, interactive, morbidly obese, in mild distress Neck : Normal inspection, Supple Cardiovascular : RRR, no JVP, +1 bilateral lower extremity edema Respiratory : good bilateral air entry, no crackles, no wheezes or rhonchi Gastrointestinal: soft, lax, Normal bowel sounds, Non tender Skin : Warm, Dry Neurological : Alert & oriented x3, No focal deficit Assessment & Plan Assessment and plan (1) Acute renal failure: Status: Acute Plan CHITO and severe hyperkalemia due to rhabdomyolysis. He has tubular injury due to rhabdomyolysis. Hyperkalemia At this point he has no signs of renal recovery yet. Watch urine output HD 3 times a week On schedule for dialysis - TTS He has an outpatient dialysis spotat [place] [facility]. Time Spent With Patient Time: Total time managing care of this patient today ____ minutes. Procedures Date of Service Date of Service: 07/29/23
[2023-07-27 13:00] LABS: Glucose, Whole Blood 86 mg/dL (60-115)
[2023-07-27] MEDS: Heparin Sodium,Porcine 5,000 UNIT/ML VIAL 5000 UNIT SUBCUT ×2 (15:46→21:08)
[2023-07-27 15:53] VITALS: BP 125/81; PULSE 115; RESP 115; TEMP 36.4; O2SAT 98
[2023-07-27 16:56] LABS: Glucose, Whole Blood 90 mg/dL (60-115)
[2023-07-27 20:00] VITALS: BP 109/62; PULSE 120; RESP 20; TEMP 37.1; O2SAT 94
[2023-07-27 20:37] LABS: Glucose, Whole Blood 93 mg/dL (60-115)
[2023-07-28] VITALS (8 sets, daily range): BP systolic 113–128; BP diastolic 62–74; PULSE 79–119; RESP 17–20; TEMP 36–36.6; O2SAT 92–99
[2023-07-28 07:36] LABS: Glucose, Whole Blood 86 mg/dL (60-115)
[2023-07-28] MEDS: Lidocaine 4 % Patch ADH..PATCH 1 PATCH TRANSDERMA (08:58)
[2023-07-28] MEDS: Heparin Sodium,Porcine 5,000 UNIT/ML VIAL 5000 UNIT SUBCUT ×3 (09:01→20:13)
--- NOTE | 2023-07-28 10:34 | MHC.CM.PN ---
SNF search (including new HD slot) is ongoing; there are no bed offers as of yet. A referral has also been sent to [facility]. CM will continue to follow.
--- NOTE | 2023-07-28 10:35 | HO.PM.IMPN ---
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 Comfortable. Neck is supple. Mucosa moist. Lungs bilateral scattered rhonchi. Heart S1-S2 heard no gallop. Abdomen soft. Extremities no edema. No involuntary movements. No myoclonus. Objective Data Active Medications Acetaminophen (Acetaminophen 325 Mg Tablet) 650 mg PO Q4H PRN PRN Reason: Pain, Moderate(Pain Scale 4-6) Last Admin: 07/27/23 03:25 Dose: 650 mg Documented By: SERA Fluticasone Propionate (Fluticasone Propionate Nasal 16 Gm [place]) 2 spray NOSTRIL-B DAILY [facility] Last Admin: 07/28/23 09:01 Dose: Not Given Documented By: NARCISA Non-Admin Reason: Patient Refused Heparin Sodium (Porcine) (Heparin Sodium,Porcine 5,000 Unit/Ml Vial) 5,000 unit SUBCUT TID [facility] Last Admin: 07/28/23 09:01 Dose: 5,000 unit Documented By: NARCISA Dextrose (D10) 250 mls @ 750 mls/hr IV Q15M PRN PRN Reason: per Hypoglycemia Standing Ord. Insulin Human Lispro (Insulin Lispro 100 Unit/Ml 3 Ml Vial) 0 unit SUBCUT QIDACHS [facility]; Protocol Last Admin: 07/28/23 07:43 Dose: Not Given Documented By: NARCISA Non-Admin Reason: No Insulin Coverage Lidocaine (Lidocaine 4 % Patch Adh..Patch) 1 patch TRANSDERMA DAILY [facility] Last Admin: 07/28/23 08:58 Dose: 1 patch Documented By: NARCISA Labs 07/22/23 09:05 07/26/23 10:14 Labs: Laboratory Results - last 24 hr 07/27/23 07/27/23 07/27/23 12:56 16:52 20:32 POC Glucose 86 90 93 07/28/23 07:14 POC Glucose 86 Assessment and Plan (1) Acute renal failure: Status: Acute (2) Need for acute hemodialysis: Status: Acute Plan 53 years old male with PMH of DM2, HTN, Asthma who presented to ED After sustaining a fall and laying on the floor for 9 hours found to have severe acute kidney injury from rhabdomyolysis. And hyperkalemia CHITO and severe hyperkalemia and acute metabolic acidosis due to ATN from rhabdomyolysis and no renal recovery and started on HD, no TTS, High K resolved. permacath placed 07/16/23. Awaiting outpatient dialysis spot, BUN/Cr very high today, somnolent will check with Nephro if needs dialsysis chest pain--resolved, negative work up hypotension post dialysus, not due to sepsis Midodrine days of dialysis Fall CT head/cervical spine negative? for acute findings pt recommending str Acute?Rhabdomyolysis 2/2 fall and long stay on floor CK? elevated >04121, repeat 7764 as of 07/21, no evidence of compartmental syndrome. Checck cpk today Elevated troponin on admission EKG did not show clear ischemic changes Cardiology? thinks elevated troponin is related to rhabdomyolysis. Will do outpatient ischemic work up per cardiology team Acute lactic acidosis in the setting of rhabdo and renal failure not due to severe sepsis diabetes-? SSI DVT PPx Heparin reason for continued hospitalization: needs outpatient placement and dialysis can transfer to [facility] Stroke Does the patient have a stroke diagnosis?: No VTE Prior VTE?: No VTE Risk Level:: Medical - moderate - high VTE Device Contraindication: N/A - Device Ordered VTE Drug Contraindication: N/A - Med Ordered
[2023-07-28 11:21] LABS: Glucose, Whole Blood 105 mg/dL (60-115)
--- NOTE | 2023-07-28 13:29 | P.PNNP_ITS ---
Subjective Subjective Date of Service: 07/28/23 Principal diagnosis: Elevated troponins Interval history: no new issues, has outpatient dialysis spote but needs SNF to be able to transport him back and forth to dialysis, so far no SNF to accomodate Physical Exam 2 Vital Signs: Vital Signs: Last Vital Signs Temp 96.8 F 07/28/23 11:20 Pulse 119 H 07/28/23 11:21 Resp 18 07/28/23 11:20 BP 120/62 07/28/23 11:20 Pulse Ox 92 07/28/23 11:21 O2 Del Method Room Air 07/28/23 11:20 O2 Flow Rate 2 07/26/23 11:35 BMI result Body Mass Index 49.2 Const: General: comfortable and no acute distress O rientation/consciousness: patient oriented x3 HEENT: Head: Yes normocephalic Mouth: Normal oral and palatal mucosa present Eyes: EOM: EOMs intact bilaterally Neck: Neck: Yes supple Resp: Auscultation: clear to auscultation bilaterally Cardio: Jugular venous distension: no JVD Rate: regular rate GI: Palpation (GI): Soft to palpation Auscultation: normal bowel sounds : General: Yes no CVA tenderness Back/Spine/Pelvis: Back: no CVA tenderness Skin: General skin exam: no rashes or lesions noted Neuro: General: patient oriented x3 and moves all extremities Extrem: General: Yes no pedal edema Objective Data Labs 07/22/23 09:05 07/26/23 10:14 Labs: Laboratory Results - last 24 hr 07/27/23 07/27/23 07/28/23 16:52 20:32 07:14 POC Glucose 90 93 86 07/28/23 11:18 POC Glucose 105 Microbiology Microbiology Results: Microbiology 07/20/23 22:49 Blood - Venous Blood Culture - Final No growth after 5 days. 07/20/23 22:49 Blood - Venous Blood Culture - Final No growth after 5 days. 07/12/23 12:30 Blood - Venous Blood Culture - Final No growth after 5 days. 07/12/23 12:15 Blood - Venous Blood Culture - Final No growth after 5 days. 07/12/23 Unknown Urine Catheterized - Straight Catheter Urine Culture - Final No growth. 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 On HD now; Next HD tomorrow; Has an outpt HD spot in [place] HD unit Monitor function for renal recovery; C/W rest of current management Progress Note: Quality Stroke Does the patient have a stroke diagnosis?: No
[2023-07-28 15:33] LABS: Glucose, Whole Blood 117 mg/dL (60-115)
[2023-07-28] MEDS: Acetaminophen 325 MG TABLET 650 MG PO (17:26)
[2023-07-28 20:14] LABS: Glucose, Whole Blood 108 mg/dL (60-115)
[2023-07-29] MEDS: Acetaminophen 325 MG TABLET 650 MG PO ×4 (00:03→21:44)
[2023-07-29 04:00] VITALS: BP 127/90; PULSE 85; RESP 20; TEMP 36.6; O2SAT 97
[2023-07-29 07:03] LABS: Glucose, Whole Blood 79 mg/dL (60-115)
[2023-07-29] MEDS: Lidocaine 4 % Patch ADH..PATCH 1 PATCH TRANSDERMA (07:36)
[2023-07-29] MEDS: Fluticasone Propionate Nasal 16 GM SPRAY 2 SPRAY NOSTRIL-B (07:40)
[2023-07-29 07:42] VITALS: BP 112/72; PULSE 97; RESP 18; TEMP 36.7; O2SAT 96
--- NOTE | 2023-07-29 11:01 | HO.PM.IMPN ---
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 no new issues Physical Exam Vital Signs: Vital Signs: Last Vital Signs Temp 98.1 F 07/29/23 07:42 Pulse 97 07/29/23 07:42 Resp 18 07/29/23 07:42 BP 112/72 07/29/23 07:42 Pulse Ox 96 07/29/23 07:42 O2 Del Method Room Air 07/29/23 07:42 O2 Flow Rate 2 07/26/23 11:35 BMI result Body Mass Index 49.2 Objective Data Active Medications Acetaminophen (Acetaminophen 325 Mg Tablet) 650 mg PO Q4H PRN PRN Reason: Pain, Moderate(Pain Scale 4-6) Last Admin: 07/29/23 07:33 Dose: 650 mg Documented By: LUIS FELIPE Fluticasone Propionate (Fluticasone Propionate Nasal 16 Gm [place]) 2 spray NOSTRIL-B DAILY [facility] Last Admin: 07/29/23 07:40 Dose: 2 spray Documented By: LUIS FELIPE Heparin Sodium (Porcine) (Heparin Sodium,Porcine 5,000 Unit/Ml Vial) 5,000 unit SUBCUT TID [facility] Last Admin: 07/29/23 08:26 Dose: Not Given Documented By: LUIS FELIPE Non-Admin Reason: Off unit: Dialysis Dextrose (D10) 250 mls @ 750 mls/hr IV Q15M PRN PRN Reason: per Hypoglycemia Standing Ord. Insulin Human Lispro (Insulin Lispro 100 Unit/Ml 3 Ml Vial) 0 unit SUBCUT QIDACHS [facility]; Protocol Last Admin: 07/29/23 07:20 Dose: Not Given Documented By: LUIS FELIPE Non-Admin Reason: No Insulin Coverage Lidocaine (Lidocaine 4 % Patch Adh..Patch) 1 patch TRANSDERMA DAILY [facility] Last Admin: 07/29/23 07:36 Dose: 1 patch Documented By: LUIS FELIPE Labs 07/22/23 09:05 07/26/23 10:14 Labs: Laboratory Results - last 24 hr 07/28/23 07/28/23 07/28/23 11:18 15:27 20:09 POC Glucose 105 117 H 108 07/29/23 06:59 POC Glucose 79 Assessment and Plan (1) Acute renal failure: Status: Acute (2) Need for acute hemodialysis: Status: Acute Plan 53 years old male with PMH of DM2, HTN, Asthma who presented to ED After sustaining a fall and laying on the floor for 9 hours found to have severe acute kidney injury from rhabdomyolysis. And hyperkalemia CHITO and severe hyperkalemia and acute metabolic acidosis due to ATN from rhabdomyolysis and no renal recovery and started on HD, no TTS, High K resolved. permacath placed 07/16/23. Awaiting outpatient dialysis spot, BUN/Cr very high today, somnolent will check with Nephro if needs dialsysis chest pain--resolved, negative work up hypotension post dialysus, not due to sepsis Midodrine days of dialysis Fall CT head/cervical spine negative? for acute findings pt recommending str Acute?Rhabdomyolysis 2/2 fall and long stay on floor CK? elevated >92630, repeat 7764 as of 07/21, 1087 as of 07/25 no evidence of compartmental syndrome. Checck cpk today Elevated troponin on admission EKG did not show clear ischemic changes Cardiology? thinks elevated troponin is related to rhabdomyolysis. Will do outpatient ischemic work up per cardiology team Acute lactic acidosis in the setting of rhabdo and renal failure not due to severe sepsis diabetes-? SSI DVT PPx Heparin reason for continued hospitalization: needs outpatient placement and dialysis can transfer to [facility] Stroke Does the patient have a stroke diagnosis?: No VTE Prior VTE?: No VTE Risk Level:: Medical - moderate - high VTE Device Contraindication: N/A - Device Ordered VTE Drug Contraindication: N/A - Med Ordered
--- NOTE | 2023-07-29 11:51 | W.PM.DNNEP ---
Subjective Subjective Date of Service: 07/29/23 Principal diagnosis: Elevated troponins This patient was seen during dialysis. Physical Exam Vital Signs: Vital Signs: Last Vital Signs Temp 98.1 F 07/29/23 07:42 Pulse 97 07/29/23 07:42 Resp 18 07/29/23 07:42 BP 112/72 07/29/23 07:42 Pulse Ox 96 07/29/23 07:42 O2 Del Method Room Air 07/29/23 07:42 O2 Flow Rate 2 07/26/23 11:35 BMI result Body Mass Index 49.2 Const: Other: Constitutional : Awake, interactive, morbidly obese, in mild distress Neck : Normal inspection, Supple Cardiovascular : RRR, no JVP, +1 bilateral lower extremity edema Respiratory : good bilateral air entry, no crackles, no wheezes or rhonchi Gastrointestinal: soft, lax, Normal bowel sounds, Non tender Skin : Warm, Dry Neurological : Alert & oriented x3, No focal deficit Assessment & Plan Assessment and plan (1) Acute renal failure: Status: Acute Plan CHITO and severe hyperkalemia due to rhabdomyolysis. He has tubular injury due to rhabdomyolysis. Hyperkalemia At this point he has no signs of renal recovery yet. Watch urine output HD 3 times a week On schedule for dialysis - TTS He has an outpatient dialysis spot at [place] [facility]. Check CBC and renal panel tomorrow Time Spent With Patient Time: Total time managing care of this patient today ____ minutes. Procedures Date of Service Date of Service: 07/29/23
[2023-07-29 13:29] LABS: Glucose, Whole Blood 78 mg/dL (60-115)
[2023-07-29 13:37] VITALS: BP 117/73; PULSE 101; RESP 20; TEMP 36.7; O2SAT 96
[2023-07-29] MEDS: Heparin Sodium,Porcine 5,000 UNIT/ML VIAL 5000 UNIT SUBCUT ×2 (14:15→21:44)
[2023-07-29 16:00] VITALS: BP 119/68; PULSE 114; RESP 20; TEMP 36.1; O2SAT 94
[2023-07-29 16:51] LABS: Glucose, Whole Blood 105 mg/dL (60-115)
[2023-07-29 20:00] VITALS: BP 122/70; PULSE 112; RESP 18; TEMP 36.3; O2SAT 100
[2023-07-29 21:00] LABS: Glucose, Whole Blood 100 mg/dL (60-115)
[2023-07-29 23:56] VITALS: BP 132/58; PULSE 116; RESP 20; TEMP 36.8; O2SAT 95
[2023-07-30] VITALS (7 sets, daily range): BP systolic 100–129; BP diastolic 58–83; PULSE 90–117; RESP 18–20; TEMP 36.4–37.1; O2SAT 93–97
[2023-07-30 07:44] LABS: Glucose, Whole Blood 86 mg/dL (60-115)
[2023-07-30] MEDS: Fluticasone Propionate Nasal 16 GM SPRAY 2 SPRAY NOSTRIL-B (08:36)
[2023-07-30] MEDS: Lidocaine 4 % Patch ADH..PATCH 1 PATCH TRANSDERMA (08:37)
[2023-07-30] MEDS: Heparin Sodium,Porcine 5,000 UNIT/ML VIAL 5000 UNIT SUBCUT ×3 (08:37→19:58)
[2023-07-30 08:54] LABS: Hematocrit 31.2 % (42.0-52.0); Hemoglobin 10.4 g/dl (14.0-18.0); Mean Corpuscular HGB Conc 33.3 g/dl (31.0-36.0); Mean Corpuscular Hemoglobin 28.9 pg (27.0-33.0); Mean Corpuscular Volume 86.7 fL (80.0-98.0); Platelet Count 140 X10*3/uL (160-400); Red Cell Distribution Width 13.5 % (11.0-16.0); White Blood Count 7.1 X10*3/uL (4.8-10.8)
[2023-07-30 09:09] LABS: Anion Gap 22 (12-20); Blood Urea Nitrogen 71 mg/dL (9-16); Calcium 10.4 mg/dL (8.4-10.2); Carbon Dioxide 16 mmol/L (22-29); Chloride 100 mmol/L (96-108); Glucose Random 135 mg/dL (60-115); Potassium 3.9 mmol/L (3.3-5.1); Sodium 134 mmol/L (135-145)
[2023-07-30 09:12] LABS: Creatinine Clr Calc Pharmacy 13.4; Estimated Glomerular Filt Rate 6
--- NOTE | 2023-07-30 09:38 | P.PNNP_ITS ---
Subjective Subjective Date of Service: 07/30/23 Principal diagnosis: Elevated troponins Interval history: Events noted. Her dialysis yesterday. He says he is making some urine. Physical Exam 2 Vital Signs: Vital Signs: Last Vital Signs Temp 98.7 F 07/30/23 08:00 Pulse 117 H 07/30/23 09:02 Resp 20 07/30/23 08:00 BP 121/59 L 07/30/23 09:02 Pulse Ox 93 07/30/23 09:02 O2 Del Method Room Air 07/30/23 08:00 O2 Flow Rate 2 07/26/23 11:35 BMI result Body Mass Index 49.2 Const: Other: Constitutional : Awake, interactive, morbidly obese, in mild distress Neck : Normal inspection, Supple Cardiovascular : RRR, no JVP, +1 bilateral lower extremity edema Respiratory : good bilateral air entry, no crackles, no wheezes or rhonchi Gastrointestinal: soft, lax, Normal bowel sounds, Non tender Skin : Warm, Dry Neurological : Alert & oriented x3, No focal deficit Objective Data Labs 07/30/23 08:47 07/30/23 08:47 Labs: Laboratory Results - last 24 hr 07/29/23 07/29/23 07/29/23 13:18 16:33 20:54 WBC RBC Hgb Hct MCV MCH MCHC RDW Plt Count MPV Absolute Nucleated RBC Nucleated RBC % (auto) Sodium Potassium Chloride Carbon Dioxide Anion Gap BUN Creatinine Estim Creat Clear Calc Estimated GFR POC Glucose 78 105 100 Random Glucose Calcium 07/30/23 07/30/23 07:39 08:47 WBC 7.1 RBC 3.60 L Hgb 10.4 L Hct 31.2 L MCV 86.7 MCH 28.9 MCHC 33.3 RDW 13.5 Plt Count 140 L D MPV 9.0 L Absolute Nucleated RBC 0.000 Nucleated RBC % (auto) 0.0 Sodium 134 L Potassium 3.9 D Chloride 100 Carbon Dioxide 16 L Anion Gap 22 H BUN 71 H Creatinine 9.07 H* Estim Creat Clear Calc 13.4 Estimated GFR 6 POC Glucose 86 Random Glucose 135 H Calcium 10.4 H D Microbiology Microbiology Results: Microbiology 07/20/23 22:49 Blood - Venous Blood Culture - Final No growth after 5 days. 07/20/23 22:49 Blood - Venous Blood Culture - Final No growth after 5 days. 07/12/23 12:30 Blood - Venous Blood Culture - Final No growth after 5 days. 07/12/23 12:15 Blood - Venous Blood Culture - Final No growth after 5 days. 07/12/23 Unknown Urine Catheterized - Straight Catheter Urine Culture - Final No growth. Procedures Date of Service Date of Service: 07/30/23 Assessment & Plan Assessment and plan (1) Acute renal failure: Status: Acute Plan CHITO and severe hyperkalemia due to rhabdomyolysis. He has tubular injury due to rhabdomyolysis. Hyperkalemia He has been running to make some urine This could be an early sign of renal recovery. Watch urine output Hold dialysis on Wednesday and reassess over the weekend. He has an outpatient dialysis spot at [facility]. Time Spent With Patient Time: Total time managing care of this patient today ____ minutes. Progress Note: Quality Stroke Does the patient have a stroke diagnosis?: No
[2023-07-30 11:17] LABS: Glucose, Whole Blood 87 mg/dL (60-115)
--- NOTE | 2023-07-30 12:03 | HO.PM.IMPN ---
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 No new complaint Physical Exam Vital Signs: Vital Signs: Last Vital Signs Temp 98.1 F 07/30/23 11:20 Pulse 111 H 07/30/23 11:20 Resp 20 07/30/23 11:20 BP 117/59 L 07/30/23 11:20 Pulse Ox 93 07/30/23 11:20 O2 Del Method Room Air 07/30/23 11:20 O2 Flow Rate 2 07/26/23 11:35 BMI result Body Mass Index 49.2 Const: Other: Constitutional : Awake, interactive, morbidly obese, in mild distress Neck : Normal inspection, Supple Cardiovascular : RRR, no JVP, +1 bilateral lower extremity edema Respiratory : good bilateral air entry, no crackles, no wheezes or rhonchi Gastrointestinal: soft, lax, Normal bowel sounds, Non tender Skin : Warm, Dry Neurological : Alert & oriented x3, No focal deficit Objective Data Active Medications Acetaminophen (Acetaminophen 325 Mg Tablet) 650 mg PO Q4H PRN PRN Reason: Pain, Moderate(Pain Scale 4-6) Last Admin: 07/29/23 21:44 Dose: 650 mg Documented By: KOMAL Fluticasone Propionate (Fluticasone Propionate Nasal 16 Gm [place]) 2 spray NOSTRIL-B DAILY [facility] Last Admin: 07/30/23 08:36 Dose: 2 spray Documented By: DAVY Heparin Sodium (Porcine) (Heparin Sodium,Porcine 5,000 Unit/Ml Vial) 5,000 unit SUBCUT TID [facility] Last Admin: 07/30/23 08:37 Dose: 5,000 unit Documented By: DAVY Dextrose (D10) 250 mls @ 750 mls/hr IV Q15M PRN PRN Reason: per Hypoglycemia Standing Ord. Insulin Human Lispro (Insulin Lispro 100 Unit/Ml 3 Ml Vial) 0 unit SUBCUT QIDACHS [facility]; Protocol Last Admin: 07/30/23 11:42 Dose: Not Given Documented By: DAVY Non-Admin Reason: No Insulin Coverage Lidocaine (Lidocaine 4 % Patch Adh..Patch) 1 patch TRANSDERMA DAILY [facility] Last Admin: 07/30/23 08:37 Dose: 1 patch Documented By: DAVY Labs 07/30/23 08:47 07/30/23 08:47 Labs: Laboratory Results - last 24 hr 07/29/23 07/29/23 07/29/23 13:18 16:33 20:54 MCV MCH MCHC RDW Plt Count MPV Absolute Nucleated RBC Nucleated RBC % (auto) Anion Gap Estim Creat Clear Calc Estimated GFR POC Glucose 78 105 100 Random Glucose Calcium 07/30/23 07/30/23 07/30/23 07:39 08:47 11:06 MCV 86.7 MCH 28.9 MCHC 33.3 RDW 13.5 Plt Count 140 L D MPV 9.0 L Absolute Nucleated RBC 0.000 Nucleated RBC % (auto) 0.0 Anion Gap 22 H Estim Creat Clear Calc 13.4 Estimated GFR 6 POC Glucose 86 87 Random Glucose 135 H Calcium 10.4 H D Assessment and Plan (1) Acute renal failure: Status: Acute (2) Need for acute hemodialysis: Status: Acute Plan 53 years old male with PMH of DM2, HTN, Asthma who presented to ED After sustaining a fall and laying on the floor for 9 hours found to have severe acute kidney injury from rhabdomyolysis. And hyperkalemia CHITO and severe hyperkalemia and acute metabolic acidosis due to ATN from rhabdomyolysis and no renal recovery and started on HD, no TTS, High K resolved. permacath placed 07/16/23. Awaiting outpatient dialysis spot, BUN/Cr very high today, somnolent will check with Nephro if needs dialsysis. hold dialysis over the weekend, making urine chest pain--resolved, negative work up hypotension post dialysus, not due to sepsis Midodrine days of dialysis Fall CT head/cervical spine negative? for acute findings pt recommending str Acute?Rhabdomyolysis 2/2 fall and long stay on floor CK? elevated >16297, repeat 7764 as of 07/21, 1087 as of 07/25 no evidence of compartmental syndrome. [place] cpk today Elevated troponin on admission EKG did not show clear ischemic changes Cardiology? thinks elevated troponin is related to rhabdomyolysis. Will do outpatient ischemic work up per cardiology team Acute lactic acidosis in the setting of rhabdo and renal failure not due to severe sepsis diabetes-? SSI DVT PPx Heparin reason for continued hospitalization: needs outpatient placement and dialysis can transfer to [facility] Stroke Does the patient have a stroke diagnosis?: No VTE Prior VTE?: No VTE Risk Level:: Medical - moderate - high VTE Device Contraindication: N/A - Device Ordered VTE Drug Contraindication: N/A - Med Ordered
--- NOTE | 2023-07-30 14:06 | MHC.CM.PN ---
EMR reviewed and per MD rounds, pt remains medically cleared but unable to due to ongoing SNF search (with new HD slot) and no current bed offers. Per [facility] liaison Renetta, they are unable to accept pt without a solid discharge plan in place for after [facility].
[2023-07-30] MEDS: Acetaminophen 325 MG TABLET 650 MG PO ×2 (14:40→20:15)
[2023-07-30 15:47] LABS: Glucose, Whole Blood 91 mg/dL (60-115)
[2023-07-30 20:25] LABS: Glucose, Whole Blood 86 mg/dL (60-115)
[2023-07-31] VITALS (7 sets, daily range): BP systolic 131–165; BP diastolic 73–83; PULSE 99–115; RESP 16–22; TEMP 36.5–37.6; O2SAT 94–97
[2023-07-31] MEDS: Acetaminophen 325 MG TABLET 650 MG PO ×2 (03:20→13:37)
[2023-07-31 07:38] LABS: Glucose, Whole Blood 91 mg/dL (60-115)
[2023-07-31] MEDS: Lidocaine 4 % Patch ADH..PATCH 1 PATCH TRANSDERMA (09:54)
[2023-07-31] MEDS: Heparin Sodium,Porcine 5,000 UNIT/ML VIAL 5000 UNIT SUBCUT ×3 (09:57→20:20)
[2023-07-31] MEDS: Fluticasone Propionate Nasal 16 GM SPRAY 2 SPRAY NOSTRIL-B (09:58)
--- NOTE | 2023-07-31 11:16 | P.PNIM_ITS ---
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 No new complaint Physical Exam 2 Vital Signs: Vital Signs: Last Vital Signs Temp 97.7 F 07/31/23 07:57 Pulse 109 H 07/31/23 07:57 Resp 20 07/31/23 07:57 BP 136/83 07/31/23 07:57 Pulse Ox 95 07/31/23 07:57 O2 Del Method Room Air 07/31/23 07:57 O2 Flow Rate 2 07/26/23 11:35 BMI result Body Mass Index 49.2 Const: Other: Constitutional : Awake, interactive, morbidly obese, in mild distress Neck : Normal inspection, Supple Cardiovascular : RRR, no JVP, +1 bilateral lower extremity edema Respiratory : good bilateral air entry, no crackles, no wheezes or rhonchi Gastrointestinal: soft, lax, Normal bowel sounds, Non tender Skin : Warm, Dry Neurological : Alert & oriented x3, No focal deficit Objective Data Active Medications Acetaminophen (Acetaminophen 325 Mg Tablet) 650 mg PO Q4H PRN PRN Reason: Pain, Moderate(Pain Scale 4-6) Last Admin: 07/31/23 03:20 Dose: 650 mg Documented By: YAMILEX Fluticasone Propionate (Fluticasone Propionate Nasal 16 Gm [place]) 2 spray NOSTRIL-B DAILY [facility] Last Admin: 07/31/23 09:58 Dose: 2 spray Documented By: NARCISA Heparin Sodium (Porcine) (Heparin Sodium,Porcine 5,000 Unit/Ml Vial) 5,000 unit SUBCUT TID [facility] Last Admin: 07/31/23 09:57 Dose: 5,000 unit Documented By: NARCISA Dextrose (D10) 250 mls @ 750 mls/hr IV Q15M PRN PRN Reason: per Hypoglycemia Standing Ord. Insulin Human Lispro (Insulin Lispro 100 Unit/Ml 3 Ml Vial) 0 unit SUBCUT QIDACHS [facility]; Protocol Last Admin: 07/31/23 07:55 Dose: Not Given Documented By: NARCISA Non-Admin Reason: No Insulin Coverage Lidocaine (Lidocaine 4 % Patch Adh..Patch) 1 patch TRANSDERMA DAILY [facility] Last Admin: 07/31/23 09:54 Dose: 1 patch Documented By: NARCISA Labs 07/30/23 08:47 07/30/23 08:47 Labs: Laboratory Results - last 24 hr 07/30/23 07/30/23 07/30/23 11:06 15:43 20:01 POC Glucose 87 91 86 07/31/23 07:34 POC Glucose 91 Assessment and Plan (1) Acute renal failure: Status: Acute (2) Need for acute hemodialysis: Status: Acute Plan 53 years old male with PMH of DM2, HTN, Asthma who presented to ED After sustaining a fall and laying on the floor for 9 hours found to have severe acute kidney injury from rhabdomyolysis. And hyperkalemia CHITO and severe hyperkalemia and acute metabolic acidosis due to ATN from rhabdomyolysis and no renal recovery and started on HD, no TTS, High K resolved. permacath placed 07/16/23. awating set up of rehab with hd chest pain resolved, negative work up hypotension post dialysis, not due to sepsis Midodrine days of dialysis Fall CT head/cervical spine negative? for acute findings pt recommending str Acute?Rhabdomyolysis 2/2 fall and long stay on floor CK? elevated >65131, repeat 7764 as of 07/21, 1087 as of 07/25 no evidence of compartmental syndrome rom and strength improving on rue Elevated troponin on admission EKG did not show clear ischemic changes Cardiology? thinks elevated troponin is related to rhabdomyolysis. Will do outpatient ischemic work up per cardiology team Acute lactic acidosis in the setting of rhabdo and renal failure not due to severe sepsis diabetes-? SSI DVT PPx Heparin reason for continued hospitalization: needs outpatient placement and dialysis Quality Stroke Does the patient have a stroke diagnosis?: No VTE Prior VTE?: No VTE Risk Level:: Medical - moderate - high VTE Device Contraindication: N/A - Device Ordered VTE Drug Contraindication: N/A - Med Ordered
[2023-07-31 11:31] LABS: Glucose, Whole Blood 107 mg/dL (60-115)
[2023-07-31 16:13] LABS: Glucose, Whole Blood 89 mg/dL (60-115)
[2023-07-31 20:29] LABS: Glucose, Whole Blood 79 mg/dL (60-115)
[2023-08-01 03:47] VITALS: BP 143/76; PULSE 109; RESP 20; TEMP 37.1; O2SAT 97
[2023-08-01 08:00] VITALS: BP 140/75; PULSE 109; RESP 20; TEMP 36.2; O2SAT 96
[2023-08-01 08:05] LABS: Glucose, Whole Blood 91 mg/dL (60-115)
[2023-08-01] MEDS: Heparin Sodium,Porcine 5,000 UNIT/ML VIAL 5000 UNIT SUBCUT ×3 (09:13→20:28)
[2023-08-01] MEDS: Lidocaine 4 % Patch ADH..PATCH 1 PATCH TRANSDERMA (09:13)
[2023-08-01] MEDS: Fluticasone Propionate Nasal 16 GM SPRAY 2 SPRAY NOSTRIL-B (09:14)
--- NOTE | 2023-08-01 10:37 | P.PNIM_ITS ---
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 No new complaint Physical Exam 2 Vital Signs: Vital Signs: Last Vital Signs Temp 97.2 F 08/01/23 08:00 Pulse 109 H 08/01/23 08:00 Resp 20 08/01/23 08:00 BP 140/75 H 08/01/23 08:00 Pulse Ox 96 08/01/23 08:00 O2 Del Method Room Air 08/01/23 08:00 O2 Flow Rate 2 07/26/23 11:35 BMI result Body Mass Index 49.2 Const: Other: Constitutional : Awake, interactive, morbidly obese, in mild distress Neck : Normal inspection, Supple Cardiovascular : RRR, no JVP, +1 bilateral lower extremity edema Respiratory : good bilateral air entry, no crackles, no wheezes or rhonchi Gastrointestinal: soft, lax, Normal bowel sounds, Non tender Skin : Warm, Dry Neurological : Alert & oriented x3, No focal deficit Objective Data Active Medications Acetaminophen (Acetaminophen 325 Mg Tablet) 650 mg PO Q4H PRN PRN Reason: Pain, Moderate(Pain Scale 4-6) Last Admin: 07/31/23 13:37 Dose: 650 mg Documented By: NARCISA Fluticasone Propionate (Fluticasone Propionate Nasal 16 Gm [place]) 2 spray NOSTRIL-B DAILY [facility] Last Admin: 08/01/23 09:14 Dose: 2 spray Documented By: KARLA Heparin Sodium (Porcine) (Heparin Sodium,Porcine 5,000 Unit/Ml Vial) 5,000 unit SUBCUT TID [facility] Last Admin: 08/01/23 09:13 Dose: 5,000 unit Documented By: KARLA Dextrose (D10) 250 mls @ 750 mls/hr IV Q15M PRN PRN Reason: per Hypoglycemia Standing Ord. Insulin Human Lispro (Insulin Lispro 100 Unit/Ml 3 Ml Vial) 0 unit SUBCUT QIDACHS [facility]; Protocol Last Admin: 08/01/23 08:08 Dose: Not Given Documented By: KARLA Non-Admin Reason: No Insulin Coverage Lidocaine (Lidocaine 4 % Patch Adh..Patch) 1 patch TRANSDERMA DAILY [facility] Last Admin: 08/01/23 09:13 Dose: 1 patch Documented By: KARLA Labs 07/30/23 08:47 07/30/23 08:47 Labs: Laboratory Results - last 24 hr 07/31/23 07/31/23 07/31/23 11:12 16:10 20:05 POC Glucose 107 89 79 08/01/23 07:53 POC Glucose 91 Assessment and Plan (1) Acute renal failure: Status: Acute (2) Need for acute hemodialysis: Status: Acute Plan 53 years old male with PMH of DM2, HTN, Asthma who presented to ED After sustaining a fall and laying on the floor for 9 hours found to have severe acute kidney injury from rhabdomyolysis. And hyperkalemia CHITO and severe hyperkalemia and acute metabolic acidosis due to ATN from rhabdomyolysis and no renal recovery and started on HD, no TTS, High K resolved. permacath placed 07/16/23. awating set up of rehab with hd chest pain resolved, negative work up hypotension post dialysis, not due to sepsis Midodrine days of dialysis Fall CT head/cervical spine negative? for acute findings pt recommending str Acute?Rhabdomyolysis 2/2 fall and long stay on floor CK? elevated >54522, repeat 7764 as of 07/21, 1087 as of 07/25 no evidence of compartmental syndrome rom and strength improving on rue Elevated troponin on admission EKG did not show clear ischemic changes Cardiology? thinks elevated troponin is related to rhabdomyolysis. Will do outpatient ischemic work up per cardiology team Acute lactic acidosis in the setting of rhabdo and renal failure not due to severe sepsis diabetes-? SSI DVT PPx Heparin reason for continued hospitalization: needs outpatient placement and dialysis Quality Stroke Does the patient have a stroke diagnosis?: No VTE Prior VTE?: No VTE Risk Level:: Medical - moderate - high VTE Device Contraindication: N/A - Device Ordered VTE Drug Contraindication: N/A - Med Ordered
[2023-08-01 11:36] LABS: Glucose, Whole Blood 104 mg/dL (60-115)
[2023-08-01 11:59] VITALS: BP 136/80; PULSE 102; RESP 16; TEMP 37; O2SAT 95
[2023-08-01 15:21] VITALS: BP 153/85; PULSE 105; RESP 20; TEMP 36.8; O2SAT 97
[2023-08-01 16:31] LABS: Glucose, Whole Blood 82 mg/dL (60-115)
[2023-08-01 20:00] VITALS: BP 138/82; PULSE 103; RESP 24; TEMP 36.7; O2SAT 98
[2023-08-01 20:47] LABS: Glucose, Whole Blood 76 mg/dL (60-115)
[2023-08-02] VITALS: BP 137/80; PULSE 96; RESP 20; TEMP 36.8; O2SAT 96
[2023-08-02 04:00] VITALS: BP 140/80; PULSE 105; RESP 20; TEMP 36.4
[2023-08-02 07:31] LABS: Glucose, Whole Blood 77 mg/dL (60-115)
[2023-08-02 07:48] LABS: Hematocrit 29.2 % (42.0-52.0); Hemoglobin 9.7 g/dl (14.0-18.0); Mean Corpuscular HGB Conc 33.2 g/dl (31.0-36.0); Mean Corpuscular Hemoglobin 28.3 pg (27.0-33.0); Mean Corpuscular Volume 85.1 fL (80.0-98.0); Mean Platelet Volume 8.2 fL (9.4-12.4); Platelet Count 266 X10*3/uL (160-400); Red Blood Count 3.43 X10*6/uL (4.60-5.80); Red Cell Distribution Width 13.3 % (11.0-16.0); White Blood Count 8.4 X10*3/uL (4.8-10.8)
[2023-08-02 07:56] VITALS: BP 136/83; PULSE 105; RESP 20; TEMP 36.1; O2SAT 96
[2023-08-02 08:22] LABS: Anion Gap 28 (12-20); Blood Urea Nitrogen 123 mg/dL (9-16); Calcium 8.9 mg/dL (8.4-10.2); Carbon Dioxide 14 mmol/L (22-29); Chloride 96 mmol/L (96-108); Creatinine Clr Calc Pharmacy 7.6; Estimated Glomerular Filt Rate 3; Glucose Fasting 76 mg/dL (60-99); Potassium 4.8 mmol/L (3.3-5.1); Sodium 133 mmol/L (135-145)
--- NOTE | 2023-08-02 10:54 | P.PNIM_ITS ---
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 No new complaint Physical Exam 2 Vital Signs: Vital Signs: Last Vital Signs Temp 96.9 F 08/02/23 07:56 Pulse 105 H 08/02/23 07:56 Resp 20 08/02/23 07:56 BP 136/83 08/02/23 07:56 Pulse Ox 96 08/02/23 07:56 O2 Del Method Room Air 08/02/23 07:56 O2 Flow Rate 2 07/26/23 11:35 BMI result Body Mass Index 49.2 Const: Other: Constitutional : Awake, interactive, morbidly obese, in mild distress Neck : Normal inspection, Supple Cardiovascular : RRR, no JVP, +1 bilateral lower extremity edema Respiratory : good bilateral air entry, no crackles, no wheezes or rhonchi Gastrointestinal: soft, lax, Normal bowel sounds, Non tender Skin : Warm, Dry Neurological : Alert & oriented x3, No focal deficit Objective Data Active Medications Acetaminophen (Acetaminophen 325 Mg Tablet) 650 mg PO Q4H PRN PRN Reason: Pain, Moderate(Pain Scale 4-6) Last Admin: 07/31/23 13:37 Dose: 650 mg Documented By: NARCISA Fluticasone Propionate (Fluticasone Propionate Nasal 16 Gm [place]) 2 spray NOSTRIL-B DAILY [facility] Last Admin: 08/01/23 09:14 Dose: 2 spray Documented By: KARLA Heparin Sodium (Porcine) (Heparin Sodium,Porcine 5,000 Unit/Ml Vial) 5,000 unit SUBCUT TID [facility] Last Admin: 08/01/23 20:28 Dose: 5,000 unit Documented By: SERA Dextrose (D10) 250 mls @ 750 mls/hr IV Q15M PRN PRN Reason: per Hypoglycemia Standing Ord. Insulin Human Lispro (Insulin Lispro 100 Unit/Ml 3 Ml Vial) 0 unit SUBCUT QIDACHS [facility]; Protocol Last Admin: 08/02/23 08:57 Dose: Not Given Documented By: ANA Non-Admin Reason: No Insulin Coverage Lidocaine (Lidocaine 4 % Patch Adh..Patch) 1 patch TRANSDERMA DAILY [facility] Last Admin: 08/01/23 09:13 Dose: 1 patch Documented By: KARLA Labs 08/02/23 07:10 08/02/23 07:10 Labs: Laboratory Results - last 24 hr 08/01/23 08/01/23 08/01/23 11:29 16:24 20:40 MCV MCH MCHC RDW Plt Count MPV Absolute Nucleated RBC Nucleated RBC % (auto) Anion Gap Estim Creat Clear Calc Estimated GFR POC Glucose 104 82 76 Fasting Glucose Calcium 08/02/23 08/02/23 07:10 07:20 MCV 85.1 MCH 28.3 MCHC 33.2 RDW 13.3 Plt Count 266 D MPV 8.2 L Absolute Nucleated RBC 0.000 Nucleated RBC % (auto) 0.0 Anion Gap 28 H Estim Creat Clear Calc 7.6 Estimated GFR 3 POC Glucose 77 Fasting Glucose 76 Calcium 8.9 D Assessment and Plan (1) Acute renal failure: Status: Acute (2) Need for acute hemodialysis: Status: Acute Plan 53 years old male with PMH of DM2, HTN, Asthma who presented to ED After sustaining a fall and laying on the floor for 9 hours found to have severe acute kidney injury from rhabdomyolysis. And hyperkalemia CHITO and severe hyperkalemia and acute metabolic acidosis due to ATN from rhabdomyolysis and no renal recovery and started on HD, no TTS, High K resolved. permacath placed 07/16/23. awating set up of rehab with hd chest pain resolved, negative work up hypotension post dialysis, not due to sepsis Midodrine days of dialysis Fall CT head/cervical spine negative? for acute findings pt recommending str Acute?Rhabdomyolysis 2/2 fall and long stay on floor CK? elevated >04974, repeat 7764 as of 07/21, 1087 as of 07/25 no evidence of compartmental syndrome rom and strength improving on rue Elevated troponin on admission EKG did not show clear ischemic changes Cardiology? thinks elevated troponin is related to rhabdomyolysis. Will do outpatient ischemic work up per cardiology team Acute lactic acidosis in the setting of rhabdo and renal failure not due to severe sepsis diabetes-? SSI DVT PPx Heparin reason for continued hospitalization: needs outpatient placement and dialysis Quality Stroke Does the patient have a stroke diagnosis?: No VTE Prior VTE?: No VTE Risk Level:: Medical - moderate - high VTE Device Contraindication: N/A - Device Ordered VTE Drug Contraindication: N/A - Med Ordered
[2023-08-02 12:49] LABS: Glucose, Whole Blood 73 mg/dL (60-115)
--- NOTE | 2023-08-02 13:15 | P.PNNPD_ITS ---
Subjective Subjective Date of Service: 08/02/23 Principal diagnosis: Elevated troponins This patient was seen during dialysis. Interval history: Events no Physical Exam Vital Signs: Vital Signs: Last Vital Signs Temp 96.9 F 08/02/23 07:56 Pulse 105 H 08/02/23 07:56 Resp 20 08/02/23 07:56 BP 136/83 08/02/23 07:56 Pulse Ox 96 08/02/23 07:56 O2 Del Method Room Air 08/02/23 07:56 O2 Flow Rate 2 07/26/23 11:35 BMI result Body Mass Index 49.2 Const: Other: Constitutional : Awake, interactive, morbidly obese, in mild distress Neck : Normal inspection, Supple Cardiovascular : RRR, no JVP, +1 bilateral lower extremity edema Respiratory : good bilateral air entry, no crackles, no wheezes or rhonchi Gastrointestinal: soft, lax, Normal bowel sounds, Non tender Skin : Warm, Dry Neurological : Alert & oriented x3, No focal deficit Assessment & Plan Assessment and plan (1) Acute renal failure: Status: Acute Plan CHITO and severe hyperkalemia due to rhabdomyolysis. He has tubular injury due to rhabdomyolysis. Hyperkalemia He has been running to make some urine No meaningful renal recovery. Serum creatinine is at 16 today. Resume dialysis Continue dialysis 3 times a week until renal recovery He has an outpatient dialysis spot at [facility]. Time Spent With Patient Time: Total time managing care of this patient today ____ minutes. Procedures Date of Service Date of Service: 08/02/23
--- NOTE | 2023-08-02 13:54 | MHC.CM.PN ---
A clinical update has been sent to the referred facilities. [facility] is asking questions. CM will continue to work on placement. DP DTR via BLS.
[2023-08-02] MEDS: Heparin Sodium,Porcine 5,000 UNIT/ML VIAL 5000 UNIT SUBCUT (15:00)
[2023-08-02] MEDS: Lidocaine 4 % Patch ADH..PATCH 1 PATCH TRANSDERMA (15:00)
[2023-08-02 16:00] VITALS: BP 138/79; PULSE 107; RESP 20; TEMP 36.4; O2SAT 96
[2023-08-02 16:10] LABS: Glucose, Whole Blood 108 mg/dL (60-115)
[2023-08-02 20:00] VITALS: BP 136/82; PULSE 110; RESP 20; TEMP 36.6; O2SAT 95
[2023-08-02] MEDS: Acetaminophen 325 MG TABLET 650 MG PO (20:39)
[2023-08-02 21:17] LABS: Glucose, Whole Blood 99 mg/dL (60-115)
[2023-08-03] VITALS: BP 127/75; RESP 20; TEMP 36.3; O2SAT 96
[2023-08-03 03:55] VITALS: BP 115/80; PULSE 112; RESP 18; TEMP 36.1; O2SAT 97
[2023-08-03 07:28] LABS: Glucose, Whole Blood 90 mg/dL (60-115)
[2023-08-03 08:00] VITALS: BP 131/81; PULSE 92; RESP 20; TEMP 36.9; O2SAT 95
[2023-08-03] MEDS: Heparin Sodium,Porcine 5,000 UNIT/ML VIAL 5000 UNIT SUBCUT ×3 (08:37→21:25)
[2023-08-03] MEDS: Lidocaine 4 % Patch ADH..PATCH 1 PATCH TRANSDERMA (08:37)
[2023-08-03] MEDS: Fluticasone Propionate Nasal 16 GM SPRAY 2 SPRAY NOSTRIL-B (08:42)
--- NOTE | 2023-08-03 09:33 | P.PNIM_ITS ---
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 No new complaint Physical Exam 2 Vital Signs: Vital Signs: Last Vital Signs Temp 98.4 F 08/03/23 08:00 Pulse 92 08/03/23 08:00 Resp 20 08/03/23 08:00 BP 131/81 08/03/23 08:00 Pulse Ox 95 08/03/23 08:00 O2 Del Method Room Air 08/03/23 08:00 O2 Flow Rate 2 07/26/23 11:35 BMI result Body Mass Index 49.2 Const: Other: Constitutional : Awake, interactive, morbidly obese, in mild distress Neck : Normal inspection, Supple Cardiovascular : RRR, no JVP, +1 bilateral lower extremity edema Respiratory : good bilateral air entry, no crackles, no wheezes or rhonchi Gastrointestinal: soft, lax, Normal bowel sounds, Non tender Skin : Warm, Dry Neurological : Alert & oriented x3, No focal deficit Objective Data Active Medications Acetaminophen (Acetaminophen 325 Mg Tablet) 650 mg PO Q4H PRN PRN Reason: Pain, Moderate(Pain Scale 4-6) Last Admin: 08/02/23 20:39 Dose: 650 mg Documented By: NANCY Fluticasone Propionate (Fluticasone Propionate Nasal 16 Gm [place]) 2 spray NOSTRIL-B DAILY [facility] Last Admin: 08/03/23 08:42 Dose: 2 spray Documented By: TEETEE Heparin Sodium (Porcine) (Heparin Sodium,Porcine 5,000 Unit/Ml Vial) 5,000 unit SUBCUT TID [facility] Last Admin: 08/03/23 08:37 Dose: 5,000 unit Documented By: TEETEE Dextrose (D10) 250 mls @ 750 mls/hr IV Q15M PRN PRN Reason: per Hypoglycemia Standing Ord. Insulin Human Lispro (Insulin Lispro 100 Unit/Ml 3 Ml Vial) 0 unit SUBCUT QIDACHS [facility]; Protocol Last Admin: 08/03/23 08:39 Dose: Not Given Documented By: TEETEE Non-Admin Reason: No Insulin Coverage Lidocaine (Lidocaine 4 % Patch Adh..Patch) 1 patch TRANSDERMA DAILY [facility] Last Admin: 08/03/23 08:37 Dose: 1 patch Documented By: TEETEE Labs 08/02/23 07:10 08/02/23 07:10 Labs: Laboratory Results - last 24 hr 08/02/23 08/02/23 08/02/23 12:44 15:52 21:11 POC Glucose 73 108 99 08/03/23 07:17 POC Glucose 90 Assessment and Plan (1) Acute renal failure: Status: Acute (2) Need for acute hemodialysis: Status: Acute Plan 53 years old male with PMH of DM2, HTN, Asthma who presented to ED After sustaining a fall and laying on the floor for 9 hours found to have severe acute kidney injury from rhabdomyolysis. And hyperkalemia CHITO and severe hyperkalemia and acute metabolic acidosis due to ATN from rhabdomyolysis and no renal recovery and started on HD, no TTS, High K resolved. permacath placed 07/16/23. awating set up of rehab with hd chest pain resolved, negative work up hypotension post dialysis, not due to sepsis Midodrine days of dialysis Fall CT head/cervical spine negative? for acute findings pt recommending str Acute?Rhabdomyolysis 2/2 fall and long stay on floor CK? elevated >15354, repeat 7764 as of 07/21, 1087 as of 07/25 no evidence of compartmental syndrome rom and strength improving on rue Elevated troponin on admission EKG did not show clear ischemic changes Cardiology? thinks elevated troponin is related to rhabdomyolysis. Will do outpatient ischemic work up per cardiology team Acute lactic acidosis in the setting of rhabdo and renal failure not due to severe sepsis diabetes-? SSI DVT PPx Heparin reason for continued hospitalization: needs outpatient placement and dialysis Quality Stroke Does the patient have a stroke diagnosis?: No VTE Prior VTE?: No VTE Risk Level:: Medical - moderate - high VTE Device Contraindication: N/A - Device Ordered VTE Drug Contraindication: N/A - Med Ordered
--- NOTE | 2023-08-03 10:41 | PM.PNNEP ---
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 No new complaint Physical Exam Vital Signs: Vital Signs: Last Vital Signs Temp 98.4 F 08/03/23 08:00 Pulse 92 08/03/23 08:00 Resp 20 08/03/23 08:00 BP 131/81 08/03/23 08:00 Pulse Ox 95 08/03/23 08:00 O2 Del Method Room Air 08/03/23 08:00 O2 Flow Rate 2 07/26/23 11:35 BMI result Body Mass Index 49.2 Const: Other: Constitutional : Awake, interactive, morbidly obese, in mild distress Neck : Normal inspection, Supple Cardiovascular : RRR, no JVP, +1 bilateral lower extremity edema Respiratory : good bilateral air entry, no crackles, no wheezes or rhonchi Gastrointestinal: soft, lax, Normal bowel sounds, Non tender Skin : Warm, Dry Neurological : , No focal deficit Objective Data Labs 08/02/23 07:10 08/02/23 07:10 Labs: Laboratory Results - last 24 hr 08/02/23 08/02/23 08/02/23 12:44 15:52 21:11 POC Glucose 73 108 99 08/03/23 07:17 POC Glucose 90 Microbiology Microbiology Results: Microbiology 07/20/23 22:49 Blood - Venous Blood Culture - Final No growth after 5 days. 07/20/23 22:49 Blood - Venous Blood Culture - Final No growth after 5 days. 07/12/23 12:30 Blood - Venous Blood Culture - Final No growth after 5 days. 07/12/23 12:15 Blood - Venous Blood Culture - Final No growth after 5 days. 07/12/23 Unknown Urine Catheterized - Straight Catheter Urine Culture - Final No growth. Procedures Date of Service Date of Service: 08/03/23 Assessment & Plan Assessment and plan (1) Acute renal failure: Status: Acute Plan CHITO and severe hyperkalemia due to rhabdomyolysis. He has tubular injury due to rhabdomyolysis. Hyperkalemia He has been running to make some urine After holding dialysis for 4 days creatinine bumped up to 16 mg/dL No meaningful renal recovery. Resumed dialysis Continue dialysis 3 times a week until renal recovery He has an outpatient dialysis spot at [facility]. Time Spent With Patient Time: Total time managing care of this patient today ____ minutes. Progress Note: Quality Stroke Does the patient have a stroke diagnosis?: No
[2023-08-03 11:29] LABS: Glucose, Whole Blood 111 mg/dL (60-115)
[2023-08-03 11:58] VITALS: BP 117/75; PULSE 100; RESP 20; TEMP 36.1; O2SAT 95
--- NOTE | 2023-08-03 13:08 | MHC.CM.PN ---
CM spoke with Sister/HCP/Lauryn, who has questions regarding Patient's belongings/inventory taken on admission. CLARICE has asked RN to call Lauryn. CM will follow.
[2023-08-03 15:51] VITALS: BP 133/81; PULSE 99; RESP 18; TEMP 36.4; O2SAT 95
[2023-08-03 16:27] LABS: Glucose, Whole Blood 90 mg/dL (60-115)
[2023-08-03 20:00] VITALS: BP 138/76; PULSE 102; RESP 18; TEMP 36.8; O2SAT 98
[2023-08-03 20:37] LABS: Glucose, Whole Blood 108 mg/dL (60-115)
[2023-08-03] MEDS: Acetaminophen 325 MG TABLET 650 MG PO (21:25)
[2023-08-04] VITALS: BP 135/75; PULSE 99; RESP 16; TEMP 36.3; O2SAT 96
[2023-08-04 04:00] VITALS: BP 139/87; PULSE 102; RESP 16; TEMP 36.5; O2SAT 99
[2023-08-04 06:59] LABS: Hematocrit 29.8 % (42.0-52.0); Hemoglobin 9.9 g/dl (14.0-18.0); Mean Corpuscular HGB Conc 33.2 g/dl (31.0-36.0); Mean Corpuscular Hemoglobin 28.9 pg (27.0-33.0); Mean Corpuscular Volume 86.9 fL (80.0-98.0); Mean Platelet Volume 8.2 fL (9.4-12.4); Platelet Count 278 X10*3/uL (160-400); Red Blood Count 3.43 X10*6/uL (4.60-5.80); Red Cell Distribution Width 13.3 % (11.0-16.0); White Blood Count 6.7 X10*3/uL (4.8-10.8)
[2023-08-04 07:15] LABS: Anion Gap 20 (12-20); Blood Urea Nitrogen 76 mg/dL (9-16); Calcium 8.4 mg/dL (8.4-10.2); Carbon Dioxide 23 mmol/L (22-29); Chloride 99 mmol/L (96-108); Creatinine Clr Calc Pharmacy 11.3; Estimated Glomerular Filt Rate 5; Glucose Fasting 84 mg/dL (60-99); Potassium 3.4 mmol/L (3.3-5.1); Sodium 139 mmol/L (135-145)
[2023-08-04 10:34] LABS: Glucose, Whole Blood 91 mg/dL (60-115)
--- NOTE | 2023-08-04 10:35 | MHC.CM.PN ---
PT is now recommending LTC(dc'd from PT) and Patient will also require a new HD slot; 63 SNF referrals have been made and updated; CM will follow.
[2023-08-04] MEDS: Lidocaine 4 % Patch ADH..PATCH 1 PATCH TRANSDERMA (10:36)
[2023-08-04 10:37] VITALS: BP 121/85; PULSE 106; RESP 20; TEMP 36.1; O2SAT 95
[2023-08-04] MEDS: Fluticasone Propionate Nasal 16 GM SPRAY 2 SPRAY NOSTRIL-B (10:39)
[2023-08-04] MEDS: Heparin Sodium,Porcine 5,000 UNIT/ML VIAL 5000 UNIT SUBCUT ×3 (10:39→20:04)
[2023-08-04] MEDS: Acetaminophen 325 MG TABLET 650 MG PO ×2 (10:44→17:22)
--- NOTE | 2023-08-04 11:46 | HO.PM.IMPN ---
Subjective Subjective Date of Service: 08/04/23 Interval History: Seen and evaluated this morning at dialysis session Kidney function did not improve. he needs to continue with dialysis Waiting placement arrangements Review of Systems Review of Systems: Yes all other systems are reviewed and are negative Physical Exam Vital Signs: Vital Signs: Last Vital Signs Temp 96.9 F 08/04/23 10:37 Pulse 106 H 08/04/23 10:37 Resp 20 08/04/23 10:37 BP 121/85 08/04/23 10:37 Pulse Ox 95 08/04/23 10:37 O2 Del Method Room Air 08/04/23 10:37 O2 Flow Rate 2 07/26/23 11:35 BMI result Body Mass Index 49.2 Const: Other: Constitutional : Awake, morbidly obese, frail looking, not in distress Neck : Normal inspection, Supple Cardiovascular : RRR, no JVP, bilateral lower extremity edema Respiratory : good bilateral air entry, no crackles, no wheezes or rhonchi Gastrointestinal: soft, lax, Non tender Skin : Warm, Dry Neurological : Alert & oriented, No focal deficit Objective Data Active Medications Acetaminophen (Acetaminophen 325 Mg Tablet) 650 mg PO Q4H PRN PRN Reason: Pain, Moderate(Pain Scale 4-6) Last Admin: 08/04/23 10:44 Dose: 650 mg Documented By: NANCY Fluticasone Propionate (Fluticasone Propionate Nasal 16 Gm [place]) 2 spray NOSTRIL-B DAILY COUNT [facility]CLUDES [facility] Last Admin: 08/04/23 10:39 Dose: 2 spray Documented By: NANCY Heparin Sodium (Porcine) (Heparin Sodium,Porcine 5,000 Unit/Ml Vial) 5,000 unit SUBCUT TID COUNT INCLUDES [facility] Last Admin: 08/04/23 10:39 Dose: 5,000 unit Documented By: NANCY Dextrose (D10) 250 mls @ 750 mls/hr IV Q15M PRN PRN Reason: per Hypoglycemia Standing Ord. Insulin Human Lispro (Insulin Lispro 100 Unit/Ml 3 Ml Vial) 0 unit SUBCUT QIDACHS COUNT INCLUDES [facility]; Protocol Last Admin: 08/04/23 10:38 Dose: Not Given Documented By: NANCY Non-Admin Reason: No Insulin Coverage Lidocaine (Lidocaine 4 % Patch Adh..Patch) 1 patch TRANSDERMA DAILY COUNT [facility]CLUDES [facility] Last Admin: 08/04/23 10:36 Dose: 1 patch Documented By: NANCY Labs 08/04/23 06:12 08/04/23 06:12 Labs: Laboratory Results - last 24 hr 08/03/23 08/03/23 08/04/23 16:10 20:31 06:12 MCV 86.9 MCH 28.9 MCHC 33.2 RDW 13.3 Plt Count 278 MPV 8.2 L Absolute Nucleated RBC 0.000 Nucleated RBC % (auto) 0.0 Anion Gap 20 Estim Creat Clear Calc 11.3 Estimated GFR 5 POC Glucose 90 108 Fasting Glucose 84 Calcium 8.4 08/04/23 10:30 MCV MCH MCHC RDW Plt Count MPV Absolute Nucleated RBC Nucleated RBC % (auto) Anion Gap Estim Creat Clear Calc Estimated GFR POC Glucose 91 Fasting Glucose Calcium Assessment and Plan (1) Need for acute hemodialysis: Status: Acute (2) Acute renal failure: Status: Acute Plan 53 years old male with PMH of DM2, HTN, Asthma who presented to ED After sustaining a fall and laying on the floor for 9 hours found to have severe acute kidney injury from rhabdomyolysis. And hyperkalemia CHITO and severe hyperkalemia and acute metabolic acidosis due to ATN from rhabdomyolysis and no renal recovery and started on HD, no TTS, High K resolved. permacath placed 07/16/23. awating set up of rehab with hd Continue dialysis sessions per nephrology TTS chest pain resolved, negative work up hypotension post dialysis, not due to sepsis Midodrine days of dialysis Fall CT head/cervical spine negative? for acute findings pt recommending str Acute?Rhabdomyolysis 2/2 fall and long stay on floor CK? elevated >14265, repeat 7764 as of 07/21, 1087 as of 07/25 no evidence of compartmental syndrome rom and strength improving on rue Elevated troponin on admission EKG did not show clear ischemic changes Cardiology? thinks elevated troponin is related to rhabdomyolysis. Will do outpatient ischemic work up per cardiology team Acute lactic acidosis in the setting of rhabdo and renal failure not due to severe sepsis diabetes-? SSI DVT PPx Heparin reason for continued hospitalization: needs outpatient placement and dialysis Quality Stroke Does the patient have a stroke diagnosis?: No VTE Prior VTE?: No VTE Risk Level:: Medical - moderate - high VTE Device Contraindication: N/A - Device Ordered VTE Drug Contraindication: N/A - Med Ordered
[2023-08-04 12:00] VITALS: BP 129/76; PULSE 113; RESP 18; TEMP 36.1; O2SAT 96
[2023-08-04 12:09] LABS: Glucose, Whole Blood 141 mg/dL (60-115)
--- NOTE | 2023-08-04 13:18 | P.PNNP_ITS ---
Subjective Subjective Date of Service: 08/04/23 Principal diagnosis: Elevated troponins Interval history: Seen and evaluated this morning at dialysis session; Discussed with slug press operator; All recent data reviewed Physical Exam 2 Vital Signs: Vital Signs: Last Vital Signs Temp 96.9 F 08/04/23 12:00 Pulse 113 H 08/04/23 12:00 Resp 18 08/04/23 12:00 BP 129/76 08/04/23 12:00 Pulse Ox 96 08/04/23 12:00 O2 Del Method Room Air 08/04/23 12:00 O2 Flow Rate 2 07/26/23 11:35 BMI result Body Mass Index 49.2 Const: General: comfortable and no acute distress O rientation/consciousness: patient oriented x3 HEENT: Head: Yes normocephalic Mouth: Normal oral and palatal mucosa present Eyes: EOM: EOMs intact bilaterally Neck: Neck: Yes supple Resp: Auscultation: clear to auscultation bilaterally Cardio: Jugular venous distension: no JVD Rate: regular rate GI: Palpation (GI): Soft to palpation Auscultation: normal bowel sounds : General: Yes no CVA tenderness Back/Spine/Pelvis: Back: no CVA tenderness Skin: General skin exam: no rashes or lesions noted Neuro: General: patient oriented x3 and moves all extremities Objective Data Labs 08/04/23 06:12 08/04/23 06:12 Labs: Laboratory Results - last 24 hr 08/03/23 08/03/23 08/04/23 16:10 20:31 06:12 WBC 6.7 RBC 3.43 L Hgb 9.9 L Hct 29.8 L MCV 86.9 MCH 28.9 MCHC 33.2 RDW 13.3 Plt Count 278 MPV 8.2 L Absolute Nucleated RBC 0.000 Nucleated RBC % (auto) 0.0 Sodium 139 Potassium 3.4 D Chloride 99 Carbon Dioxide 23 Anion Gap 20 BUN 76 H Creatinine 10.79 H* Estim Creat Clear Calc 11.3 Estimated GFR 5 POC Glucose 90 108 Fasting Glucose 84 Calcium 8.4 08/04/23 08/04/23 10:30 11:59 WBC RBC Hgb Hct MCV MCH MCHC RDW Plt Count MPV Absolute Nucleated RBC Nucleated RBC % (auto) Sodium Potassium Chloride Carbon Dioxide Anion Gap BUN Creatinine Estim Creat Clear Calc Estimated GFR POC Glucose 91 141 H Fasting Glucose Calcium Microbiology Microbiology Results: Microbiology 07/20/23 22:49 Blood - Venous Blood Culture - Final No growth after 5 days. 07/20/23 22:49 Blood - Venous Blood Culture - Final No growth after 5 days. 07/12/23 12:30 Blood - Venous Blood Culture - Final No growth after 5 days. 07/12/23 12:15 Blood - Venous Blood Culture - Final No growth after 5 days. 07/12/23 Unknown Urine Catheterized - Straight Catheter Urine Culture - Final No growth. 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
[2023-08-04 14:57] VITALS: BP 132/70; PULSE 100; RESP 22; TEMP 36.8; O2SAT 95
[2023-08-04 15:49] LABS: Glucose, Whole Blood 93 mg/dL (60-115)
[2023-08-04 19:20] VITALS: BP 103/59; PULSE 111; RESP 22; TEMP 36.4; O2SAT 95
[2023-08-04 20:01] LABS: Glucose, Whole Blood 162 mg/dL (60-115)
[2023-08-04] MEDS: Insulin Lispro 100 UNIT/ML 3 ML VIAL SUBCUT (20:04)
[2023-08-05] VITALS (7 sets, daily range): BP systolic 111–150; BP diastolic 66–93; PULSE 95–105; RESP 2–23; TEMP 36.2–36.7; O2SAT 94–99
--- NOTE | 2023-08-05 06:29 | PC.NURSE ---
Pt is aox4, vague during conversations, able to make needs known. Pt rings frequently to be repositioned but does not always help in being repositioned. He is incontinent of urine and stool. Call maurice within reach, bed alarm on. Safety maintained throughout shift.
[2023-08-05 08:56] LABS: Glucose, Whole Blood 94 mg/dL (60-115)
[2023-08-05] MEDS: Lidocaine 4 % Patch ADH..PATCH 1 PATCH TRANSDERMA (09:09)
[2023-08-05] MEDS: Fluticasone Propionate Nasal 16 GM SPRAY 2 SPRAY NOSTRIL-B (09:11)
[2023-08-05 11:05] LABS: Glucose, Whole Blood 150 mg/dL (60-115)
[2023-08-05] MEDS: Nystatin Powder 15 GM BOTTLE 1 APPL TOPICAL ×2 (12:54→20:49)
--- NOTE | 2023-08-05 13:25 | P.PNNP_ITS ---
Subjective Subjective Date of Service: 08/05/23 Principal diagnosis: Elevated troponins Interval history: Seen and evaluated this morning at dialysis session; Discussed with waiter/waitress room service; All recent data reviewed Physical Exam 2 Vital Signs: Vital Signs: Last Vital Signs Temp 97.4 F 08/05/23 11:35 Pulse 102 H 08/05/23 11:35 Resp 18 08/05/23 11:35 BP 117/75 08/05/23 11:35 Pulse Ox 95 08/05/23 11:35 O2 Del Method Room Air 08/05/23 11:35 O2 Flow Rate 2 07/26/23 11:35 BMI result Body Mass Index 49.2 Const: Other: Constitutional : Awake, interactive, morbidly obese, in mild distress Neck : Normal inspection, Supple Cardiovascular : RRR, no JVP, +1 bilateral lower extremity edema Respiratory : good bilateral air entry, no crackles, no wheezes or rhonchi Gastrointestinal: soft, lax, Normal bowel sounds, Non tender Skin : Warm, Dry Neurological : , No focal deficit Objective Data Labs 08/06/23 11:58 08/06/23 11:58 Labs: Laboratory Results - last 24 hr 08/04/23 08/04/23 08/05/23 15:43 19:58 06:58 POC Glucose 93 162 H 94 08/05/23 10:55 POC Glucose 150 H Microbiology Microbiology Results: Microbiology 07/20/23 22:49 Blood - Venous Blood Culture - Final No growth after 5 days. 07/20/23 22:49 Blood - Venous Blood Culture - Final No growth after 5 days. 07/12/23 12:30 Blood - Venous Blood Culture - Final No growth after 5 days. 07/12/23 12:15 Blood - Venous Blood Culture - Final No growth after 5 days. 07/12/23 Unknown Urine Catheterized - Straight Catheter Urine Culture - Final No growth. Procedures Date of Service Date of Service: 08/09/23 Assessment & Plan Assessment and plan (1) Acute renal failure: Status: Acute Plan CHITO and severe hyperkalemia due to rhabdomyolysis. He has tubular injury due to rhabdomyolysis. Hyperkalemia He has been running to make some urine After holding dialysis for 4 days creatinine bumped up to 16 mg/dL No meaningful renal recovery. Resumed dialysis Continue dialysis 3 times a week until renal recovery He has an outpatient dialysis spot at [facility]. Time Spent With Patient Time: Total time managing care of this patient today ____ minutes. Progress Note: Quality Stroke Does the patient have a stroke diagnosis?: No
--- NOTE | 2023-08-05 13:51 | HO.PM.IMPN ---
Subjective Subjective Date of Service: 08/05/23 Interval History: Seen and evaluated this morning at dialysis session needs to continue with dialysis Waiting placement arrangements Review of Systems Review of Systems: Yes all other systems are reviewed and are negative Physical Exam Vital Signs: Vital Signs: Last Vital Signs Temp 97.4 F 08/05/23 11:35 Pulse 102 H 08/05/23 11:35 Resp 18 08/05/23 11:35 BP 117/75 08/05/23 11:35 Pulse Ox 95 08/05/23 11:35 O2 Del Method Room Air 08/05/23 11:35 O2 Flow Rate 2 07/26/23 11:35 BMI result Body Mass Index 49.2 Const: Other: Constitutional : Awake, morbidly obese, frail looking, not in distress Neck : Normal inspection, Supple Cardiovascular : RRR, no JVP, bilateral lower extremity edema Respiratory : good bilateral air entry, no crackles, no wheezes or rhonchi Gastrointestinal: soft, lax, Non tender Skin : Warm, Dry, Permacath in place Neurological : Alert & oriented, No focal deficit Objective Data Active Medications Acetaminophen (Acetaminophen 325 Mg Tablet) 650 mg PO Q4H PRN PRN Reason: Pain, Moderate(Pain Scale 4-6) Last Admin: 08/04/23 17:22 Dose: 650 mg Documented By: NANCY Fluticasone Propionate (Fluticasone Propionate Nasal 16 Gm [place]) 2 spray NOSTRIL-B DAILY [facility] Last Admin: 08/05/23 09:11 Dose: 2 spray Documented By: NANCY Heparin Sodium (Porcine) (Heparin Sodium,Porcine 5,000 Unit/Ml Vial) 5,000 unit SUBCUT TID [facility] Last Admin: 08/05/23 09:11 Dose: Not Given Documented By: NANCY Non-Admin Reason: Patient Refused Dextrose (D10) 250 mls @ 750 mls/hr IV Q15M PRN PRN Reason: per Hypoglycemia Standing Ord. Insulin Human Lispro (Insulin Lispro 100 Unit/Ml 3 Ml Vial) 0 unit SUBCUT QIDACHS [facility]; Protocol Last Admin: 08/05/23 11:57 Dose: Not Given Documented By: NANCY Non-Admin Reason: No Insulin Coverage Lidocaine (Lidocaine 4 % Patch Adh..Patch) 1 patch TRANSDERMA DAILY [facility] Last Admin: 08/05/23 09:09 Dose: 1 patch Documented By: NANCY Nystatin (Nystatin Powder 15 Gm [place]) 1 appl TOPICAL BID [facility]; Protocol Last Admin: 08/05/23 12:54 Dose: 1 appl Documented By: NANCY Labs 08/04/23 06:12 08/04/23 06:12 Labs: Laboratory Results - last 24 hr 08/04/23 08/04/23 08/05/23 15:43 19:58 06:58 POC Glucose 93 162 H 94 08/05/23 10:55 POC Glucose 150 H Assessment and Plan (1) Need for acute hemodialysis: Status: Acute (2) Hypotension: Status: Acute Plan 53 years old male with PMH of DM2, HTN, Asthma who presented to ED After sustaining a fall and laying on the floor for 9 hours found to have severe acute kidney injury from rhabdomyolysis. And hyperkalemia CHITO and severe hyperkalemia and acute metabolic acidosis due to ATN from rhabdomyolysis and no renal recovery and started on HD, no TTS, High K resolved. permacath placed 07/16/23. awating set up of rehab with HD Continue dialysis sessions per nephrology TTS hypotension post dialysis, not due to sepsis Midodrine days of dialysis Physical deconditioning PT discharged him from service as he is not participating Acute?Rhabdomyolysis 2/2 fall and long stay on floor no evidence of compartmental syndrome at any point Elevated troponin on admission, outpatient ischemic work up per cardiology team Acute lactic acidosis, resolved, in the setting of rhabdo and renal failure not due to severe sepsis chest pain, resolved, negative work up Diabetes-? SSI DVT PPx Heparin reason for continued hospitalization: needs to continue dialysis pending outpatient placement Quality Stroke Does the patient have a stroke diagnosis?: No VTE Prior VTE?: No VTE Risk Level:: Medical - moderate - high VTE Device Contraindication: N/A - Device Ordered VTE Drug Contraindication: N/A - Med Ordered
[2023-08-05 15:08] LABS: Glucose, Whole Blood 112 mg/dL (60-115)
[2023-08-05] MEDS: Heparin Sodium,Porcine 5,000 UNIT/ML VIAL 5000 UNIT SUBCUT (15:56)
[2023-08-05 20:48] LABS: Glucose, Whole Blood 96 mg/dL (60-115)
[2023-08-05] MEDS: Acetaminophen 325 MG TABLET 650 MG PO (23:32)
[2023-08-06 04:00] VITALS: BP 141/89; PULSE 108; RESP 18; TEMP 36.6; O2SAT 95
[2023-08-06 07:21] LABS: Glucose, Whole Blood 87 mg/dL (60-115)
[2023-08-06 08:00] VITALS: BP 114/69; PULSE 99; RESP 20; TEMP 36.3; O2SAT 96
[2023-08-06] MEDS: Heparin Sodium,Porcine 5,000 UNIT/ML VIAL 5000 UNIT SUBCUT ×3 (08:23→21:26)
[2023-08-06] MEDS: Lidocaine 4 % Patch ADH..PATCH 1 PATCH TRANSDERMA (08:24)
[2023-08-06] MEDS: Fluticasone Propionate Nasal 16 GM SPRAY 2 SPRAY NOSTRIL-B (08:29)
[2023-08-06] MEDS: Nystatin Powder 15 GM BOTTLE 1 APPL TOPICAL ×2 (08:29→21:26)
--- NOTE | 2023-08-06 10:28 | MHC.CM.PN ---
CM is seeking LTC placement; there are no bed offers. CM will follow.
[2023-08-06 11:09] LABS: Glucose, Whole Blood 110 mg/dL (60-115)
--- NOTE | 2023-08-06 12:21 | P.PNIM_ITS ---
Subjective Subjective Date of Service: 08/06/23 Interval History: Seen and evaluated this morning Having dialysis needs to continue with dialysis Waiting placement arrangements Review of Systems Review of Systems: Yes all other systems are reviewed and are negative Physical Exam 2 Vital Signs: Vital Signs: Last Vital Signs Temp 97.3 F 08/06/23 08:00 Pulse 99 08/06/23 08:00 Resp 20 08/06/23 08:00 BP 114/69 08/06/23 08:00 Pulse Ox 96 08/06/23 08:00 O2 Del Method Room Air 08/06/23 08:00 O2 Flow Rate 2 07/26/23 11:35 BMI result Body Mass Index 49.2 Const: Other: Constitutional : Awake, morbidly obese, frail looking, not in distress Neck : Normal inspection, Supple Cardiovascular : RRR, no JVP, bilateral lower extremity edema Respiratory : good bilateral air entry, no crackles, no wheezes or rhonchi Gastrointestinal: soft, lax, Non tender Skin : Warm, Dry, Permacath in place Neurological : Alert & oriented, No focal deficit Objective Data Active Medications Acetaminophen (Acetaminophen 325 Mg Tablet) 650 mg PO Q4H PRN PRN Reason: Pain, Moderate(Pain Scale 4-6) Last Admin: 08/05/23 23:32 Dose: 650 mg Documented By: KOMAL Fluticasone Propionate (Fluticasone Propionate Nasal 16 Gm [place]) 2 spray NOSTRIL-B DAILY [facility] Last Admin: 08/06/23 08:29 Dose: 2 spray Documented By: XENIA Heparin Sodium (Porcine) (Heparin Sodium,Porcine 5,000 Unit/Ml Vial) 5,000 unit SUBCUT TID [facility] Last Admin: 08/06/23 08:23 Dose: 5,000 unit Documented By: XENIA Dextrose (D10) 250 mls @ 750 mls/hr IV Q15M PRN PRN Reason: per Hypoglycemia Standing Ord. Insulin Human Lispro (Insulin Lispro 100 Unit/Ml 3 Ml Vial) 0 unit SUBCUT QIDACHS [facility]; Protocol Last Admin: 08/06/23 11:32 Dose: Not Given Documented By: XENIA Non-Admin Reason: No Insulin Coverage Lidocaine (Lidocaine 4 % Patch Adh..Patch) 1 patch TRANSDERMA DAILY [facility] Last Admin: 08/06/23 08:24 Dose: 1 patch Documented By: XENIA Nystatin (Nystatin Powder 15 Gm Bottle) 1 appl TOPICAL BID [facility]; Protocol Last Admin: 08/06/23 08:29 Dose: 1 appl Documented By: XENIA Labs 08/04/23 06:12 08/04/23 06:12 Labs: Laboratory Results - last 24 hr 08/05/23 08/05/23 08/06/23 15:01 20:08 07:17 POC Glucose 112 96 87 08/06/23 11:04 POC Glucose 110 Assessment and Plan (1) Need for acute hemodialysis: Status: Acute Plan 53 years old male with PMH of DM2, HTN, Asthma who presented to ED After sustaining a fall and laying on the floor for 9 hours found to have severe acute kidney injury from rhabdomyolysis. And hyperkalemia CHITO and severe hyperkalemia and acute metabolic acidosis due to ATN from rhabdomyolysis and no renal recovery and started on HD, no TTS, High K resolved. permacath placed 07/16/23. awating set up of rehab with HD Continue dialysis sessions per nephrology MWF hypotension post dialysis, not due to sepsis Midodrine days of dialysis Physical deconditioning PT discharged him from service as he is not participating Acute?Rhabdomyolysis 2/2 fall and long stay on floor no evidence of compartmental syndrome at any point Elevated troponin on admission, outpatient ischemic work up per cardiology team Acute lactic acidosis, resolved, in the setting of rhabdo and renal failure not due to severe sepsis chest pain, resolved, negative work up Diabetes-? SSI DVT PPx Heparin reason for continued hospitalization: needs to continue dialysis pending outpatient placement Quality Stroke Does the patient have a stroke diagnosis?: No VTE Prior VTE?: No VTE Risk Level:: Medical - moderate - high VTE Device Contraindication: N/A - Device Ordered VTE Drug Contraindication: N/A - Med Ordered
[2023-08-06 12:43] LABS: Hematocrit 34.3 % (42.0-52.0); Hemoglobin 11.3 g/dl (14.0-18.0); Mean Corpuscular HGB Conc 32.9 g/dl (31.0-36.0); Mean Corpuscular Hemoglobin 29.1 pg (27.0-33.0); Mean Corpuscular Volume 88.4 fL (80.0-98.0); Mean Platelet Volume 8.2 fL (9.4-12.4); Platelet Count 280 X10*3/uL (160-400); Red Blood Count 3.88 X10*6/uL (4.60-5.80); Red Cell Distribution Width 12.9 % (11.0-16.0); White Blood Count 9.6 X10*3/uL (4.8-10.8)
[2023-08-06 13:15] LABS: Anion Gap 16 (12-20); Blood Urea Nitrogen 27 mg/dL (9-16); Calcium 8.8 mg/dL (8.4-10.2); Carbon Dioxide 22 mmol/L (22-29); Chloride 98 mmol/L (96-108); Creatinine Clr Calc Pharmacy 23.6; Estimated Glomerular Filt Rate 12; Glucose Random 90 mg/dL (60-115); Potassium 3.5 mmol/L (3.3-5.1); Sodium 132 mmol/L (135-145)
[2023-08-06 13:16] VITALS: BP 117/76; PULSE 107; RESP 20; TEMP 37.1; O2SAT 95
[2023-08-06 15:36] VITALS: BP 116/80; PULSE 109; RESP 20; TEMP 35.9; O2SAT 97
--- NOTE | 2023-08-06 15:58 | P.PNNP_ITS ---
Subjective Subjective Date of Service: 08/06/23 Principal diagnosis: Elevated troponins Interval history: Seen and evaluated this morning on dialysis; Awaiting placement Physical Exam 2 Vital Signs: Vital Signs: Last Vital Signs Temp 96.7 F L 08/06/23 15:36 Pulse 109 H 08/06/23 15:36 Resp 20 08/06/23 15:36 BP 116/80 08/06/23 15:36 Pulse Ox 97 08/06/23 15:36 O2 Del Method Room Air 08/06/23 15:36 O2 Flow Rate 2 07/26/23 11:35 BMI result Body Mass Index 49.2 Const: General: no acute distress Eyes: EOM: EOMs intact bilaterally Resp: Auscultation: diminished lung sounds Cardio: Rate: regular rate GI: Palpation (GI): Soft to palpation Neuro: General: moves all extremities Objective Data Labs 08/06/23 11:58 08/06/23 11:58 Labs: Laboratory Results - last 24 hr 08/05/23 08/06/23 08/06/23 20:08 07:17 11:04 WBC RBC Hgb Hct MCV MCH MCHC RDW Plt Count MPV Absolute Nucleated RBC Nucleated RBC % (auto) Sodium Potassium Chloride Carbon Dioxide Anion Gap BUN Creatinine Estim Creat Clear Calc Estimated GFR POC Glucose 96 87 110 Random Glucose Calcium 08/06/23 11:58 WBC 9.6 RBC 3.88 L Hgb 11.3 L Hct 34.3 L MCV 88.4 MCH 29.1 MCHC 32.9 RDW 12.9 Plt Count 280 MPV 8.2 L Absolute Nucleated RBC 0.000 Nucleated RBC % (auto) 0.0 Sodium 132 L Potassium 3.5 Chloride 98 Carbon Dioxide 22 Anion Gap 16 BUN 27 H Creatinine 5.15 H* Estim Creat Clear Calc 23.6 Estimated GFR 12 POC Glucose Random Glucose 90 Calcium 8.8 Microbiology Microbiology Results: Microbiology 07/20/23 22:49 Blood - Venous Blood Culture - Final No growth after 5 days. 07/20/23 22:49 Blood - Venous Blood Culture - Final No growth after 5 days. 07/12/23 12:30 Blood - Venous Blood Culture - Final No growth after 5 days. 07/12/23 12:15 Blood - Venous Blood Culture - Final No growth after 5 days. 07/12/23 Unknown Urine Catheterized - Straight Catheter Urine Culture - Final No growth. 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
[2023-08-06 16:06] LABS: Glucose, Whole Blood 125 mg/dL (60-115)
[2023-08-06 20:00] VITALS: BP 132/86; PULSE 105; RESP 18; TEMP 36.2; O2SAT 97
[2023-08-06 20:16] LABS: Glucose, Whole Blood 85 mg/dL (60-115)
[2023-08-06] MEDS: Acetaminophen 325 MG TABLET 650 MG PO (21:24)
[2023-08-07] VITALS: BP 116/78; PULSE 70; RESP 19; TEMP 36.4; O2SAT 96
[2023-08-07 04:00] VITALS: BP 114/79; PULSE 100; RESP 20; TEMP 36.5; O2SAT 97
[2023-08-07] MEDS: Acetaminophen 325 MG TABLET 650 MG PO ×2 (06:52→21:26)
[2023-08-07 07:56] LABS: Glucose, Whole Blood 91 mg/dL (60-115)
[2023-08-07 08:00] VITALS: BP 120/81; PULSE 107; RESP 20; TEMP 36.7; O2SAT 96
[2023-08-07] MEDS: Lidocaine 4 % Patch ADH..PATCH 1 PATCH TRANSDERMA (09:22)
[2023-08-07] MEDS: Heparin Sodium,Porcine 5,000 UNIT/ML VIAL 5000 UNIT SUBCUT ×3 (09:23→21:26)
[2023-08-07] MEDS: Nystatin Powder 15 GM BOTTLE 1 APPL TOPICAL ×2 (09:27→21:26)
[2023-08-07] MEDS: Fluticasone Propionate Nasal 16 GM SPRAY 2 SPRAY NOSTRIL-B (09:27)
[2023-08-07 11:43] LABS: Glucose, Whole Blood 121 mg/dL (60-115)
[2023-08-07 11:48] VITALS: BP 119/65; PULSE 110; RESP 20; TEMP 36.2; O2SAT 98
--- NOTE | 2023-08-07 13:33 | P.PNIM_ITS ---
Subjective Subjective Date of Service: 08/07/23 Interval History: Seen and evaluated this morning needs to continue with dialysis Waiting placement arrangements Review of Systems Review of Systems: Yes all other systems are reviewed and are negative Physical Exam 2 Vital Signs: Vital Signs: Last Vital Signs Temp 97.2 F 08/07/23 11:48 Pulse 110 H 08/07/23 11:48 Resp 20 08/07/23 11:48 BP 119/65 08/07/23 11:48 Pulse Ox 98 08/07/23 11:48 O2 Del Method Room Air 08/07/23 11:48 O2 Flow Rate 2 07/26/23 11:35 BMI result Body Mass Index 49.2 Const: Other: Constitutional : Awake, morbidly obese, frail looking, not in distress Neck : Normal inspection, Supple Cardiovascular : RRR, no JVP, bilateral lower extremity edema Respiratory : good bilateral air entry, no crackles, no wheezes or rhonchi Gastrointestinal: soft, lax, Non tender Skin : Warm, Dry, Permacath in place Neurological : Alert & oriented, No focal deficit Objective Data Active Medications Acetaminophen (Acetaminophen 325 Mg Tablet) 650 mg PO Q4H PRN PRN Reason: Pain, Moderate(Pain Scale 4-6) Last Admin: 08/07/23 06:52 Dose: 650 mg Documented By: KOMAL Fluticasone Propionate (Fluticasone Propionate Nasal 16 Gm [place]) 2 spray NOSTRIL-B DAILY [facility] Last Admin: 08/07/23 09:27 Dose: 2 spray Documented By: XENIA Heparin Sodium (Porcine) (Heparin Sodium,Porcine 5,000 Unit/Ml Vial) 5,000 unit SUBCUT TID [facility] Last Admin: 08/07/23 09:23 Dose: 5,000 unit Documented By: XENIA Dextrose (D10) 250 mls @ 750 mls/hr IV Q15M PRN PRN Reason: per Hypoglycemia Standing Ord. Insulin Human Lispro (Insulin Lispro 100 Unit/Ml 3 Ml Vial) 0 unit SUBCUT QIDACHS [facility]; Protocol Last Admin: 08/07/23 11:58 Dose: Not Given Documented By: XENIA Non-Admin Reason: No Insulin Coverage Lidocaine (Lidocaine 4 % Patch Adh..Patch) 1 patch TRANSDERMA DAILY [facility] Last Admin: 08/07/23 09:22 Dose: 1 patch Documented By: XENIA Nystatin (Nystatin Powder 15 Gm Bottle) 1 appl TOPICAL BID [facility]; Protocol Last Admin: 08/07/23 09:27 Dose: 1 appl Documented By: XENIA Labs 08/06/23 11:58 08/06/23 11:58 Labs: Laboratory Results - last 24 hr 08/06/23 08/06/23 08/07/23 15:55 19:46 07:23 POC Glucose 125 H 85 91 08/07/23 11:17 POC Glucose 121 H Assessment and Plan (1) Need for acute hemodialysis: Status: Acute Plan 53 years old male with PMH of DM2, HTN, Asthma who presented to ED After sustaining a fall and laying on the floor for 9 hours found to have severe acute kidney injury from rhabdomyolysis. And hyperkalemia CHITO and severe hyperkalemia and acute metabolic acidosis due to ATN from rhabdomyolysis and no renal recovery and started on HD, no TTS, High K resolved. permacath placed 07/16/23. awating set up of rehab with HD Continue dialysis sessions per nephrology MWF hypotension post dialysis, not due to sepsis Midodrine days of dialysis Physical deconditioning PT discharged him from service as he is not participating. will need to increase physical activity and placement at SNF Acute?Rhabdomyolysis 2/2 fall and long stay on floor no evidence of compartmental syndrome at any point Elevated troponin on admission, outpatient ischemic work up per cardiology team Acute lactic acidosis, resolved, in the setting of rhabdo and renal failure not due to severe sepsis chest pain, resolved, negative work up Diabetes-? SSI DVT PPx Heparin reason for continued hospitalization: needs to continue dialysis pending outpatient placement Quality Stroke Does the patient have a stroke diagnosis?: No VTE Prior VTE?: No VTE Risk Level:: Medical - moderate - high VTE Device Contraindication: N/A - Device Ordered VTE Drug Contraindication: N/A - Med Ordered
[2023-08-07 15:56] VITALS: BP 125/81; PULSE 100; RESP 18; TEMP 36.4; O2SAT 96
[2023-08-07 15:56] LABS: Glucose, Whole Blood 87 mg/dL (60-115)
[2023-08-07 20:00] VITALS: BP 132/71; PULSE 100; RESP 18; TEMP 36.7; O2SAT 99
[2023-08-07 20:44] LABS: Glucose, Whole Blood 87 mg/dL (60-115)
[2023-08-08] VITALS: BP 119/80; PULSE 105; RESP 18; TEMP 37.1; O2SAT 94
[2023-08-08 03:54] VITALS: BP 134/87; PULSE 105; RESP 19; TEMP 36.8; O2SAT 96
[2023-08-08 07:31] LABS: Glucose, Whole Blood 88 mg/dL (60-115)
[2023-08-08 07:33] VITALS: BP 124/83; PULSE 101; RESP 18; TEMP 36.3; O2SAT 94
[2023-08-08] MEDS: Lidocaine 4 % Patch ADH..PATCH 1 PATCH TRANSDERMA (09:00)
[2023-08-08] MEDS: Heparin Sodium,Porcine 5,000 UNIT/ML VIAL 5000 UNIT SUBCUT ×3 (09:01→20:27)
[2023-08-08] MEDS: Nystatin Powder 15 GM BOTTLE 1 APPL TOPICAL ×2 (09:04→20:27)
[2023-08-08] MEDS: Fluticasone Propionate Nasal 16 GM SPRAY 2 SPRAY NOSTRIL-B (09:04)
[2023-08-08] MEDS: Acetaminophen 325 MG TABLET 650 MG PO (10:59)
--- NOTE | 2023-08-08 11:12 | HO.PM.IMPN ---
Subjective Subjective Date of Service: 08/08/23 Interval History: Seen and evaluated this morning laying in bed needs to continue with dialysis Waiting placement arrangements Physical Exam Vital Signs: Vital Signs: Last Vital Signs Temp 97.3 F 08/08/23 07:33 Pulse 101 H 08/08/23 07:33 Resp 18 08/08/23 07:33 BP 124/83 08/08/23 07:33 Pulse Ox 94 08/08/23 07:33 O2 Del Method Room Air 08/08/23 07:33 O2 Flow Rate 2 07/26/23 11:35 BMI result Body Mass Index 49.2 Const: Other: Constitutional : Awake, morbidly obese, frail looking, not in distress Neck : Normal inspection, Supple Cardiovascular : RRR, no JVP, bilateral lower extremity edema Respiratory : good bilateral air entry, no crackles, no wheezes or rhonchi Gastrointestinal: soft, lax, Non tender Skin : Warm, Dry, Permacath in place Neurological : Alert & oriented, No focal deficit Objective Data Active Medications Acetaminophen (Acetaminophen 325 Mg Tablet) 650 mg PO Q4H PRN PRN Reason: Pain, Moderate(Pain Scale 4-6) Last Admin: 08/08/23 10:59 Dose: 650 mg Documented By: XENIA Fluticasone Propionate (Fluticasone Propionate Nasal 16 Gm [place]) 2 spray NOSTRIL-B DAILY [facility] Last Admin: 08/08/23 09:04 Dose: 2 spray Documented By: XENIA Heparin Sodium (Porcine) (Heparin Sodium,Porcine 5,000 Unit/Ml Vial) 5,000 unit SUBCUT TID [facility] Last Admin: 08/08/23 09:01 Dose: 5,000 unit Documented By: XENIA Dextrose (D10) 250 mls @ 750 mls/hr IV Q15M PRN PRN Reason: per Hypoglycemia Standing Ord. Insulin Human Lispro (Insulin Lispro 100 Unit/Ml 3 Ml Vial) 0 unit SUBCUT QIDACHS [facility]; Protocol Last Admin: 08/08/23 07:59 Dose: Not Given Documented By: XENIA Non-Admin Reason: No Insulin Coverage Lidocaine (Lidocaine 4 % Patch Adh..Patch) 1 patch TRANSDERMA DAILY [facility] Last Admin: 08/08/23 09:00 Dose: 1 patch Documented By: XENIA Nystatin (Nystatin Powder 15 Gm Bottle) 1 appl TOPICAL BID [facility]; Protocol Last Admin: 08/08/23 09:04 Dose: 1 appl Documented By: XENIA Labs 08/06/23 11:58 08/06/23 11:58 Labs: Laboratory Results - last 24 hr 08/07/23 08/07/23 08/07/23 11:17 15:11 20:40 POC Glucose 121 H 87 87 08/08/23 07:20 POC Glucose 88 Assessment and Plan (1) Need for acute hemodialysis: Status: Acute Plan 53 years old male with PMH of DM2, HTN, Asthma who presented to ED After sustaining a fall and laying on the floor for 9 hours found to have severe acute kidney injury from rhabdomyolysis. And hyperkalemia CHITO and severe hyperkalemia and acute metabolic acidosis due to ATN from rhabdomyolysis and no renal recovery and started on HD, no TTS, High K resolved. permacath placed 07/16/23. awating set up of rehab with HD Continue dialysis sessions per nephrology MWF hypotension post dialysis, not due to sepsis Midodrine days of dialysis Physical deconditioning PT discharged him from service as he is not participating. will need to increase physical activity and placement at SNF Acute?Rhabdomyolysis 2/2 fall and long stay on floor no evidence of compartmental syndrome at any point Elevated troponin on admission, outpatient ischemic work up per cardiology team Acute lactic acidosis, resolved, in the setting of rhabdo and renal failure not due to severe sepsis chest pain, resolved, negative work up Diabetes-? SSI DVT PPx Heparin reason for continued hospitalization: needs to continue dialysis pending outpatient placement Quality Stroke Does the patient have a stroke diagnosis?: No VTE Prior VTE?: No VTE Risk Level:: Medical - moderate - high VTE Device Contraindication: N/A - Device Ordered VTE Drug Contraindication: N/A - Med Ordered
[2023-08-08 11:34] LABS: Glucose, Whole Blood 93 mg/dL (60-115)
[2023-08-08 11:41] VITALS: BP 121/71; PULSE 107; RESP 18; TEMP 36.7; O2SAT 97
[2023-08-08 15:43] LABS: Glucose, Whole Blood 90 mg/dL (60-115)
[2023-08-08 15:46] VITALS: BP 124/81; PULSE 103; RESP 20; TEMP 36.2; O2SAT 98
[2023-08-08 20:00] VITALS: BP 126/77; PULSE 101; RESP 20; TEMP 36.2; O2SAT 97
[2023-08-08 20:08] LABS: Glucose, Whole Blood 93 mg/dL (60-115)
[2023-08-09] VITALS: BP 129/84; PULSE 102; RESP 20; TEMP 36.2; O2SAT 96
[2023-08-09 03:50] VITALS: BP 119/81; PULSE 103; RESP 20; TEMP 36.5; O2SAT 96
--- NOTE | 2023-08-09 06:39 | PC.NURSE ---
Assumed care of patient at 23:15. Pt continues awaiting placement. Denies acute issues. Assisted with turning and repositioning. Bed alarm on and safety measures in place. Handoff report given 06:45.
[2023-08-09 07:28] LABS: Glucose, Whole Blood 85 mg/dL (60-115)
[2023-08-09 07:34] VITALS: BP 119/72; PULSE 100; RESP 20; TEMP 36.2; O2SAT 98
[2023-08-09] MEDS: Heparin Sodium,Porcine 5,000 UNIT/ML VIAL 5000 UNIT SUBCUT ×3 (08:38→20:02)
[2023-08-09] MEDS: Acetaminophen 325 MG TABLET 650 MG PO (08:38)
[2023-08-09] MEDS: Nystatin Powder 15 GM BOTTLE 1 APPL TOPICAL ×2 (08:39→21:38)
--- NOTE | 2023-08-09 10:37 | MHC.CM.PN ---
Extensive LTC SNF search (with need for new HD slot) is ongoing, with no bed offers. CM will follow.
[2023-08-09 11:40] LABS: Glucose, Whole Blood 101 mg/dL (60-115)
[2023-08-09] MEDS: Fluticasone Propionate Nasal 16 GM SPRAY 2 SPRAY NOSTRIL-B (11:50)
[2023-08-09] MEDS: Heparin Sodium,Porcine 1,000 UNIT/ML VIAL 4000 UNIT IV (11:51)
--- NOTE | 2023-08-09 13:14 | P.PNNPD_ITS ---
Subjective Subjective Date of Service: 08/09/23 Principal diagnosis: Elevated troponins This patient was seen during dialysis. Interval history: Seen and evaluated this morning laying in bed needs to continue with dialysis Waiting placement arrangements Physical Exam Vital Signs: Vital Signs: Last Vital Signs Temp 97.2 F 08/09/23 07:34 Pulse 100 08/09/23 07:34 Resp 20 08/09/23 07:34 BP 119/72 08/09/23 07:34 Pulse Ox 98 08/09/23 07:34 O2 Del Method Room Air 08/09/23 07:34 O2 Flow Rate 2 07/26/23 11:35 BMI result Body Mass Index 49.2 Const: Other: Constitutional : Awake, interactive, morbidly obese, in mild distress Neck : Normal inspection, Supple Cardiovascular : RRR, no JVP, +1 bilateral lower extremity edema Respiratory : good bilateral air entry, no crackles, no wheezes or rhonchi Gastrointestinal: soft, lax, Normal bowel sounds, Non tender Skin : Warm, Dry Neurological : , No focal deficit Assessment & Plan Assessment and plan (1) Acute renal failure: Status: Acute Plan CHITO and severe hyperkalemia due to rhabdomyolysis. He has tubular injury due to rhabdomyolysis. Hyperkalemia He has been running to make some urine After holding dialysis for 4 days creatinine bumped up to 16 mg/dL No meaningful renal recovery. Resumed dialysis Continue dialysis 3 times a week until renal recovery He has an outpatient dialysis spot at [facility]. Time Spent With Patient Time: Total time managing care of this patient today ____ minutes. Procedures Date of Service Date of Service: 08/09/23
--- NOTE | 2023-08-09 14:09 | HO.PM.IMPN ---
Subjective Subjective Date of Service: 08/09/23 Interval History: Seen and evaluated this morning laying in bed needs to continue with dialysis Waiting placement arrangements Review of Systems Review of Systems: Yes all other systems are reviewed and are negative Physical Exam Vital Signs: Vital Signs: Last Vital Signs Temp 97.2 F 08/09/23 07:34 Pulse 100 08/09/23 07:34 Resp 20 08/09/23 07:34 BP 119/72 08/09/23 07:34 Pulse Ox 98 08/09/23 07:34 O2 Del Method Room Air 08/09/23 07:34 O2 Flow Rate 2 07/26/23 11:35 BMI result Body Mass Index 49.2 Const: Other: Constitutional : Awake, morbidly obese, frail looking, not in distress Neck : Normal inspection, Supple Cardiovascular : RRR, no JVP, bilateral lower extremity edema Respiratory : good bilateral air entry, no crackles, no wheezes or rhonchi Gastrointestinal: soft, lax, Non tender Skin : Warm, Dry, Permacath in place Neurological : Alert & oriented, No focal deficit Objective Data Active Medications Acetaminophen (Acetaminophen 325 Mg Tablet) 650 mg PO Q4H PRN PRN Reason: Pain, Moderate(Pain Scale 4-6) Last Admin: 08/09/23 08:38 Dose: 650 mg Documented By: ROSIO Fluticasone Propionate (Fluticasone Propionate Nasal 16 Gm [place]) 2 spray NOSTRIL-B DAILY [facility] Last Admin: 08/09/23 11:50 Dose: 2 spray Documented By: ROSIO Heparin Sodium (Porcine) (Heparin Sodium,Porcine 5,000 Unit/Ml Vial) 5,000 unit SUBCUT TID [facility] Last Admin: 08/09/23 08:38 Dose: 5,000 unit Documented By: ROSIO Dextrose (D10) 250 mls @ 750 mls/hr IV Q15M PRN PRN Reason: per Hypoglycemia Standing Ord. Insulin Human Lispro (Insulin Lispro 100 Unit/Ml 3 Ml Vial) 0 unit SUBCUT QIDACHS [facility]; Protocol Last Admin: 08/09/23 11:36 Dose: Not Given Documented By: ROSIO Non-Admin Reason: No Insulin Coverage Lidocaine (Lidocaine 4 % Patch Adh..Patch) 1 patch TRANSDERMA DAILY [facility] Last Admin: 08/09/23 08:39 Dose: Not Given Documented By: ROSIO Non-Admin Reason: Patient Refused Nystatin (Nystatin Powder 15 Gm Bottle) 1 appl TOPICAL BID [facility]; Protocol Last Admin: 08/09/23 08:39 Dose: 1 appl Documented By: ROSIO Labs 08/06/23 11:58 08/06/23 11:58 Labs: Laboratory Results - last 24 hr 08/08/23 08/08/23 08/09/23 15:25 19:53 07:09 POC Glucose 90 93 85 08/09/23 11:34 POC Glucose 101 Assessment and Plan (1) Need for acute hemodialysis: Status: Acute Plan 53 years old male with PMH of DM2, HTN, Asthma who presented to ED After sustaining a fall and laying on the floor for 9 hours found to have severe acute kidney injury from rhabdomyolysis. And hyperkalemia CHITO and severe hyperkalemia and acute metabolic acidosis due to ATN from rhabdomyolysis and no renal recovery and started on HD, no TTS, High K resolved. permacath placed 07/16/23. awating set up of rehab with HD Continue dialysis sessions per nephrology MWF hypotension post dialysis, not due to sepsis Midodrine days of dialysis Physical deconditioning will need to increase physical activity and placement at SNF. PT following Acute?Rhabdomyolysis 2/2 fall and long stay on floor no evidence of compartmental syndrome at any point Elevated troponin on admission, outpatient ischemic work up per cardiology team Acute lactic acidosis, resolved, in the setting of rhabdo and renal failure not due to severe sepsis chest pain, resolved, negative work up Diabetes-? SSI DVT PPx Heparin reason for continued hospitalization: needs to continue dialysis pending outpatient placement Quality Stroke Does the patient have a stroke diagnosis?: No VTE Prior VTE?: No VTE Risk Level:: Medical - moderate - high VTE Device Contraindication: N/A - Device Ordered VTE Drug Contraindication: N/A - Med Ordered
[2023-08-09 16:00] VITALS: BP 115/68; PULSE 96; RESP 18; TEMP 36.3; O2SAT 98
[2023-08-09 16:34] LABS: Glucose, Whole Blood 152 mg/dL (60-115)
[2023-08-09] MEDS: Insulin Lispro 100 UNIT/ML 3 ML VIAL SUBCUT (17:11)
[2023-08-09 20:00] VITALS: BP 123/79; PULSE 106; RESP 20; TEMP 36.2; O2SAT 97
[2023-08-09 21:17] LABS: Glucose, Whole Blood 95 mg/dL (60-115)
[2023-08-10] VITALS: BP 110/75; PULSE 108; RESP 16; TEMP 36.5; O2SAT 98
[2023-08-10 04:00] VITALS: BP 121/80; PULSE 113; RESP 20; TEMP 36.3; O2SAT 98
[2023-08-10 07:38] LABS: Glucose, Whole Blood 115 mg/dL (60-115)
[2023-08-10 07:52] VITALS: BP 116/75; PULSE 103; RESP 20; TEMP 36.7; O2SAT 97
[2023-08-10] MEDS: Lidocaine 4 % Patch ADH..PATCH 1 PATCH TRANSDERMA (07:59)
[2023-08-10] MEDS: Nystatin Powder 15 GM BOTTLE 1 APPL TOPICAL ×2 (08:03→21:16)
[2023-08-10] MEDS: Heparin Sodium,Porcine 5,000 UNIT/ML VIAL 5000 UNIT SUBCUT ×3 (08:05→21:16)
[2023-08-10 11:08] LABS: Glucose, Whole Blood 105 mg/dL (60-115)
[2023-08-10 11:19] VITALS: BP 131/80; PULSE 103; RESP 20; TEMP 36.3; O2SAT 97
--- NOTE | 2023-08-10 12:08 | PC.NURSE ---
refusing get up from the bed for lunch
--- NOTE | 2023-08-10 12:46 | MHC.CM.PN ---
CLARICE returned a call to [facility]sthetist/Betty @ [phone], who was offering her assistance with dc planning(Per CM Cena's message to this CM). CLARICE was only able to leave a detailed message for Betty, outlining the barriers to dc. CLARICE awaits a return call and CM will follow.
--- NOTE | 2023-08-10 15:07 | HO.PM.IMPN ---
Subjective Subjective Date of Service: 08/10/23 Interval History: Seen and evaluated this morning laying in bed needs to continue with dialysis Waiting placement arrangements Review of Systems Review of Systems: Yes all other systems are reviewed and are negative Physical Exam Vital Signs: Vital Signs: Last Vital Signs Temp 97.4 F 08/10/23 11:19 Pulse 103 H 08/10/23 11:19 Resp 20 08/10/23 11:19 BP 131/80 08/10/23 11:19 Pulse Ox 97 08/10/23 11:19 O2 Del Method Room Air 08/10/23 11:19 O2 Flow Rate 2 07/26/23 11:35 BMI result Body Mass Index 49.2 Const: Other: Constitutional : Awake, morbidly obese, frail looking, not in distress Neck : Normal inspection, Supple Cardiovascular : RRR, no JVP, bilateral lower extremity edema Respiratory : good bilateral air entry, no crackles, no wheezes or rhonchi Gastrointestinal: soft, lax, Non tender Skin : Warm, Dry, Permacath in place Neurological : Alert & oriented, No focal deficit Objective Data Active Medications Acetaminophen (Acetaminophen 325 Mg Tablet) 650 mg PO Q4H PRN PRN Reason: Pain, Moderate(Pain Scale 4-6) Last Admin: 08/09/23 08:38 Dose: 650 mg Documented By: ROSIO Fluticasone Propionate (Fluticasone Propionate Nasal 16 Gm [place]) 2 spray NOSTRIL-B DAILY [facility] Last Admin: 08/10/23 08:05 Dose: Not Given Documented By: BRENT Non-Admin Reason: Administered by Alternate Route Heparin Sodium (Porcine) (Heparin Sodium,Porcine 5,000 Unit/Ml Vial) 5,000 unit SUBCUT TID [facility] Last Admin: 08/10/23 08:05 Dose: 5,000 unit Documented By: BRENT Dextrose (D10) 250 mls @ 750 mls/hr IV Q15M PRN PRN Reason: per Hypoglycemia Standing Ord. Insulin Human Lispro (Insulin Lispro 100 Unit/Ml 3 Ml Vial) 0 unit SUBCUT QIDACHS [facility]; Protocol Last Admin: 08/10/23 12:07 Dose: Not Given Documented By: BRENT Non-Admin Reason: No Insulin Coverage Lidocaine (Lidocaine 4 % Patch Adh..Patch) 1 patch TRANSDERMA DAILY [facility] Last Admin: 08/10/23 07:59 Dose: 1 patch Documented By: BRENT Nystatin (Nystatin Powder 15 Gm Bottle) 1 appl TOPICAL BID [facility]; Protocol Last Admin: 08/10/23 08:03 Dose: 1 appl Documented By: BRENT Labs 08/06/23 11:58 08/06/23 11:58 Labs: Laboratory Results - last 24 hr 08/09/23 08/09/23 08/10/23 16:25 20:55 07:19 POC Glucose 152 H 95 115 08/10/23 10:58 POC Glucose 105 Assessment and Plan (1) Need for acute hemodialysis: Status: Acute (2) Rhabdomyolysis: Status: Acute Plan 53 years old male with PMH of DM2, HTN, Asthma who presented to ED After sustaining a fall and laying on the floor for 9 hours found to have severe acute kidney injury from rhabdomyolysis. And hyperkalemia CHITO and severe hyperkalemia and acute metabolic acidosis due to ATN from rhabdomyolysis and no renal recovery and started on HD, no TTS, High K resolved. permacath placed 07/16/23. awating set up of rehab with HD Continue dialysis sessions per nephrology MWF hypotension post dialysis, not due to sepsis Midodrine days of dialysis Physical deconditioning will need to increase physical activity and placement at SNF. PT following Acute?Rhabdomyolysis 2/2 fall and long stay on floor no evidence of compartmental syndrome at any point Elevated troponin on admission, outpatient ischemic work up per cardiology team Acute lactic acidosis, resolved, in the setting of rhabdo and renal failure not due to severe sepsis chest pain, resolved, negative work up Diabetes-? SSI DVT PPx Heparin reason for continued hospitalization: needs to continue dialysis pending outpatient placement Quality Stroke Does the patient have a stroke diagnosis?: No VTE Prior VTE?: No VTE Risk Level:: Medical - moderate - high VTE Device Contraindication: N/A - Device Ordered VTE Drug Contraindication: N/A - Med Ordered
[2023-08-10 16:00] LABS: Glucose, Whole Blood 95 mg/dL (60-115)
[2023-08-10 16:17] VITALS: BP 120/83; PULSE 104; RESP 20; TEMP 36.8; O2SAT 99
[2023-08-10 20:16] VITALS: BP 124/83; PULSE 101; RESP 20; TEMP 36.6; O2SAT 98
[2023-08-10 21:05] LABS: Glucose, Whole Blood 90 mg/dL (60-115)
[2023-08-11] VITALS: BP 110/74; PULSE 104; RESP 20; TEMP 36.4; O2SAT 97
[2023-08-11 04:00] VITALS: BP 124/79; PULSE 108; RESP 20; TEMP 36.3; O2SAT 96
[2023-08-11 07:32] LABS: Hematocrit 33.9 % (42.0-52.0); Hemoglobin 11.2 g/dl (14.0-18.0); Mean Corpuscular Hemoglobin 28.9 pg (27.0-33.0); Mean Corpuscular Volume 87.6 fL (80.0-98.0); Mean Platelet Volume 8.2 fL (9.4-12.4); Platelet Count 397 X10*3/uL (160-400); Red Blood Count 3.87 X10*6/uL (4.60-5.80); Red Cell Distribution Width 13.1 % (11.0-16.0); White Blood Count 9.5 X10*3/uL (4.8-10.8)
[2023-08-11 07:33] LABS: Glucose, Whole Blood 97 mg/dL (60-115)
[2023-08-11 07:46] LABS: Anion Gap 19 (12-20); Blood Urea Nitrogen 44 mg/dL (9-16); Calcium 8.9 mg/dL (8.4-10.2); Carbon Dioxide 21 mmol/L (22-29); Chloride 98 mmol/L (96-108); Creatinine Clr Calc Pharmacy 16.4; Estimated Glomerular Filt Rate 8; Glucose Random 92 mg/dL (60-115); Potassium 3.6 mmol/L (3.3-5.1); Sodium 134 mmol/L (135-145)
--- NOTE | 2023-08-11 10:21 | MHC.CM.PN ---
PT's most recent PN now indicates that Patient will require, extensive Rehab. CM has updated the many SNF referrals made and will continue to follow.
[2023-08-11 10:30] VITALS: BP 116/61; PULSE 117; RESP 20; TEMP 36.3; O2SAT 97
--- NOTE | 2023-08-11 11:39 | HO.PM.IMPN ---
Subjective Subjective Date of Service: 08/11/23 Interval History: Seen and evaluated this morning having dialysis session feels weak overall Waiting placement arrangements Review of Systems Review of Systems: Yes all other systems are reviewed and are negative Physical Exam Vital Signs: Vital Signs: Last Vital Signs Temp 97.3 F 08/11/23 10:30 Pulse 117 H 08/11/23 10:30 Resp 20 08/11/23 10:30 BP 116/61 08/11/23 10:30 Pulse Ox 97 08/11/23 10:30 O2 Del Method Room Air 08/11/23 10:30 O2 Flow Rate 2 07/26/23 11:35 BMI result Body Mass Index 49.2 Const: Other: Constitutional : Awake, morbidly obese, frail looking, not in distress Neck : Normal inspection, Supple Cardiovascular : RRR, no JVP, bilateral lower extremity edema Respiratory : good bilateral air entry, no crackles, no wheezes or rhonchi Gastrointestinal: soft, lax, Non tender Skin : Warm, Dry, Permacath in place Neurological : Alert & oriented, No focal deficit Objective Data Active Medications Acetaminophen (Acetaminophen 325 Mg Tablet) 650 mg PO Q4H PRN PRN Reason: Pain, Moderate(Pain Scale 4-6) Last Admin: 08/09/23 08:38 Dose: 650 mg Documented By: ROSIO Fluticasone Propionate (Fluticasone Propionate Nasal 16 Gm [place]) 2 spray NOSTRIL-B DAILY [facility] Last Admin: 08/11/23 11:13 Dose: Not Given Documented By: BRENT Non-Admin Reason: Patient Refused Heparin Sodium (Porcine) (Heparin Sodium,Porcine 5,000 Unit/Ml Vial) 5,000 unit SUBCUT TID [facility] Last Admin: 08/11/23 11:13 Dose: Not Given Documented By: BRENT Non-Admin Reason: Patient Refused Dextrose (D10) 250 mls @ 750 mls/hr IV Q15M PRN PRN Reason: per Hypoglycemia Standing Ord. Insulin Human Lispro (Insulin Lispro 100 Unit/Ml 3 Ml Vial) 0 unit SUBCUT QIDACHS [facility]; Protocol Last Admin: 08/11/23 07:44 Dose: Not Given Documented By: BRENT Non-Admin Reason: No Insulin Coverage Lidocaine (Lidocaine 4 % Patch Adh..Patch) 1 patch TRANSDERMA DAILY [facility] Last Admin: 08/11/23 11:13 Dose: Not Given Documented By: BRENT Non-Admin Reason: Patient Refused Nystatin (Nystatin Powder 15 Gm Bottle) 1 appl TOPICAL BID [facility]; Protocol Last Admin: 08/10/23 21:16 Dose: 1 appl Documented By: LUIS Labs 08/11/23 06:47 08/11/23 06:48 Labs: Laboratory Results - last 24 hr 08/10/23 08/10/23 08/11/23 15:36 21:02 06:47 MCV 87.6 MCH 28.9 MCHC 33.0 RDW 13.1 Plt Count 397 D MPV 8.2 L Absolute Nucleated RBC 0.000 Nucleated RBC % (auto) 0.0 Anion Gap Estim Creat Clear Calc Estimated GFR POC Glucose 95 90 Random Glucose Calcium 08/11/23 08/11/23 06:48 07:12 MCV MCH MCHC RDW Plt Count MPV Absolute Nucleated RBC Nucleated RBC % (auto) Anion Gap 19 Estim Creat Clear Calc 16.4 Estimated GFR 8 POC Glucose 97 Random Glucose 92 Calcium 8.9 Assessment and Plan (1) Need for acute hemodialysis: Status: Acute (2) Hypotension: Status: Acute Plan 53 years old male with PMH of DM2, HTN, Asthma who presented to ED After sustaining a fall and laying on the floor for 9 hours found to have severe acute kidney injury from rhabdomyolysis. And hyperkalemia CHITO and severe hyperkalemia and acute metabolic acidosis due to ATN from rhabdomyolysis and no renal recovery and started on HD, no TTS, High K resolved. permacath placed 07/16/23. awating set up of rehab with HD Continue dialysis sessions per nephrology MWF hypotension post dialysis, not due to sepsis Midodrine days of dialysis Physical deconditioning will need to increase physical activity and placement at SNF. PT following Acute?Rhabdomyolysis 2/2 fall and long stay on floor no evidence of compartmental syndrome at any point Elevated troponin on admission, outpatient ischemic work up per cardiology team Acute lactic acidosis, resolved, in the setting of rhabdo and renal failure not due to severe sepsis chest pain, resolved, negative work up Diabetes-? SSI DVT PPx Heparin reason for continued hospitalization: needs to continue dialysis pending outpatient placement Quality Stroke Does the patient have a stroke diagnosis?: No VTE Prior VTE?: No VTE Risk Level:: Medical - moderate - high VTE Device Contraindication: N/A - Device Ordered VTE Drug Contraindication: N/A - Med Ordered
[2023-08-11] MEDS: Acetaminophen 325 MG TABLET 650 MG PO ×2 (11:51→21:19)
[2023-08-11] MEDS: Lidocaine 4 % Patch ADH..PATCH 1 PATCH TRANSDERMA (11:55)
[2023-08-11 11:56] VITALS: BP 108/70; PULSE 110; RESP 20; TEMP 36.2; O2SAT 97
[2023-08-11 11:56] LABS: Glucose, Whole Blood 100 mg/dL (60-115)
[2023-08-11] MEDS: Heparin Sodium,Porcine 5,000 UNIT/ML VIAL 5000 UNIT SUBCUT ×3 (11:58→21:20)
[2023-08-11] MEDS: Nystatin Powder 15 GM BOTTLE 1 APPL TOPICAL ×2 (11:59→22:36)
--- NOTE | 2023-08-11 12:12 | P.PNNPD_ITS ---
Subjective Subjective Date of Service: 08/11/23 Principal diagnosis: Elevated troponins This patient was seen during dialysis. Interval history: Seen and evaluated this morning having dialysis session feels weak overall Waiting placement arrangements Physical Exam Vital Signs: Vital Signs: Last Vital Signs Temp 97.2 F 08/11/23 11:56 Pulse 110 H 08/11/23 11:56 Resp 20 08/11/23 11:56 BP 108/70 08/11/23 11:56 Pulse Ox 97 08/11/23 11:56 O2 Del Method Room Air 08/11/23 11:56 O2 Flow Rate 2 07/26/23 11:35 BMI result Body Mass Index 49.2 Const: Other: Constitutional : Awake, morbidly obese, frail looking, not in distress Neck : Normal inspection, Supple Cardiovascular : RRR, no JVP, bilateral lower extremity edema Respiratory : good bilateral air entry, no crackles, no wheezes or rhonchi Gastrointestinal: soft, lax, Non tender Skin : Warm, Dry, Permacath in place Neurological : Alert & oriented, No focal deficit Assessment & Plan Assessment and plan (1) Acute renal failure: Status: Acute Plan CHITO and severe hyperkalemia due to rhabdomyolysis. He has tubular injury due to rhabdomyolysis. Hyperkalemia At this point he has no signs of renal recovery yet. Watch urine output HD 3 times a week On schedule for dialysis - MWF He has an outpatient dialysis spot at [facility]. Time Spent With Patient Time: Total time managing care of this patient today ____ minutes. Procedures Date of Service Date of Service: 08/11/23
[2023-08-11 15:02] VITALS: BP 113/73; PULSE 106; RESP 20; TEMP 36.1; O2SAT 98
[2023-08-11 16:26] LABS: Glucose, Whole Blood 106 mg/dL (60-115)
[2023-08-11 19:36] VITALS: BP 129/68; PULSE 109; RESP 19; TEMP 37; O2SAT 97
[2023-08-11 20:41] LABS: Glucose, Whole Blood 104 mg/dL (60-115)
[2023-08-12] VITALS: BP 108/68; PULSE 109; RESP 19; TEMP 37.1; O2SAT 97
[2023-08-12 03:49] VITALS: BP 130/70; PULSE 103; RESP 17; TEMP 36.4; O2SAT 96
[2023-08-12] MEDS: Lidocaine 4 % Patch ADH..PATCH 1 PATCH TRANSDERMA (10:49)
--- NOTE | 2023-08-12 10:56 | P.PNIM_ITS ---
Subjective Subjective Date of Service: 08/12/23 Interval History: Seen and examined this morning no overnight events Follow-up for renal failure reporting dry feet refused vital signs of care this complaints this time Review of Systems Review of Systems: Yes all other systems are reviewed and are negative Constitutional Constitutional: Denies chills and Denies fever(s) Physical Exam 2 Vital Signs: Vital Signs: Last Vital Signs Temp 97.6 F 08/12/23 03:49 Pulse 103 H 08/12/23 03:49 Resp 17 08/12/23 03:49 BP 130/70 08/12/23 03:49 Pulse Ox 96 08/12/23 03:49 O2 Del Method Room Air 08/12/23 03:49 O2 Flow Rate 2 07/26/23 11:35 BMI result Body Mass Index 49.2 Const: General: comfortable, no acute distress, alert and awake Nutritional Appearance: obese Orientation/consciousness: patient oriented x3 Chest: Other: permcath left anterior chest wall; no erythema but some rash around the site as well and neck Resp: Effort & Inspection: normal respiratory effort, able to speak in complete sentences, no respiratory distress and no use of accessory muscles GI: Inspection: No distended Palpation (GI): Soft to palpation Neuro: General: patient oriented x3 and CN's II-XI intact bilaterally Extrem: Other: dry skin b/l feet, no erythema Objective Data Active Medications Acetaminophen (Acetaminophen 325 Mg Tablet) 650 mg PO Q4H PRN PRN Reason: Pain, Moderate(Pain Scale 4-6) Last Admin: 08/11/23 21:19 Dose: 650 mg Documented By: NANCY Fluticasone Propionate (Fluticasone Propionate Nasal 16 Gm [place]) 2 spray NOSTRIL-B DAILY [facility] Last Admin: 08/12/23 10:53 Dose: Not Given Documented By: ANA Non-Admin Reason: Patient Refused Heparin Sodium (Porcine) (Heparin Sodium,Porcine 5,000 Unit/Ml Vial) 5,000 unit SUBCUT TID [facility] Last Admin: 08/12/23 10:52 Dose: Not Given Documented By: ANA Non-Admin Reason: Patient Refused Dextrose (D10) 250 mls @ 750 mls/hr IV Q15M PRN PRN Reason: per Hypoglycemia Standing Ord. Insulin Human Lispro (Insulin Lispro 100 Unit/Ml 3 Ml Vial) 0 unit SUBCUT QIDACHS [facility]; Protocol Last Admin: 08/12/23 09:10 Dose: Not Given Documented By: ANA Non-Admin Reason: reffusing POC Lidocaine (Lidocaine 4 % Patch Adh..Patch) 1 patch TRANSDERMA DAILY [facility] Last Admin: 08/12/23 10:49 Dose: 1 patch Documented By: ANA Nystatin (Nystatin Powder 15 Gm Bottle) 1 appl TOPICAL BID [facility]; Protocol Last Admin: 08/12/23 10:52 Dose: Not Given Documented By: ANA Non-Admin Reason: Patient Refused Labs 08/11/23 06:47 08/11/23 06:48 Labs: Laboratory Results - last 24 hr 08/11/23 08/11/23 08/11/23 11:43 16:18 20:35 POC Glucose 100 106 104 Assessment and Plan (1) Acute renal failure: Status: Acute Plan 53 years old male with PMH of DM2, HTN, Asthma who presented to ED After sustaining a fall and laying on the floor for 9 hours found to have severe acute kidney injury from rhabdomyolysis. And hyperkalemia CHITO and severe hyperkalemia and acute metabolic acidosis due to ATN from rhabdomyolysis and no renal recovery and started on HD, TTS, High K resolved. permacath placed 07/16/23. awaiting set up of rehab with HD Continue dialysis sessions per nephrology MWF hypotension post dialysis, not due to sepsis Midodrine days of dialysis as needed rash around port, neck and b/l arms in areas of previous adhesive likely reaction to adhesive no cellulitis, no infection supportive care Physical deconditioning will need to increase physical activity and placement at SNF. PT following Acute?Rhabdomyolysis 2/2 fall and long stay on floor no evidence of compartment syndrome at any point Elevated troponin on admission, outpatient ischemic work up per cardiology team Acute lactic acidosis, resolved, in the setting of rhabdo and renal failure not due to severe sepsis chest pain, resolved, negative work up Diabetes-? SSI DVT PPx Heparin reason for continued hospitalization: needs to continue dialysis pending outpatient placement Quality Stroke Does the patient have a stroke diagnosis?: No VTE Prior VTE?: No VTE Risk Level:: Medical - moderate - high VTE Device Contraindication: N/A - Device Ordered VTE Drug Contraindication: N/A - Med Ordered
[2023-08-12 11:06] LABS: Glucose, Whole Blood 106 mg/dL (60-115)
[2023-08-12 12:00] VITALS: BP 104/69; PULSE 113; RESP 20; TEMP 36.3; O2SAT 97
[2023-08-12] MEDS: Mineral Oil/Petrolatum,White 106 GM Tube 1 APPL TOPICAL ×2 (12:48→21:39)
[2023-08-12] MEDS: Heparin Sodium,Porcine 5,000 UNIT/ML VIAL 5000 UNIT SUBCUT ×2 (15:44→21:35)
[2023-08-12 15:52] VITALS: BP 112/75; PULSE 108; RESP 19; TEMP 36.3; O2SAT 98
[2023-08-12 16:58] LABS: Glucose, Whole Blood 96 mg/dL (60-115)
[2023-08-12 19:38] VITALS: BP 127/66; PULSE 88; RESP 21; TEMP 36.3; O2SAT 97
[2023-08-12 20:05] LABS: Glucose, Whole Blood 91 mg/dL (60-115)
[2023-08-12] MEDS: Acetaminophen 325 MG TABLET 650 MG PO (21:35)
[2023-08-13] VITALS: BP 113/63; PULSE 113; RESP 20; TEMP 36.1; O2SAT 97
[2023-08-13 08:01] LABS: Glucose, Whole Blood 88 mg/dL (60-115)
--- NOTE | 2023-08-13 08:41 | W.PM.DNNEP ---
Subjective Subjective Date of Service: 08/13/23 Principal diagnosis: Elevated troponins This patient was seen during dialysis. Interval history: Seen and examined this morning no overnight events Follow-up for renal failure reporting dry feet refused vital signs of care this complaints this time Physical Exam Vital Signs: Vital Signs: Last Vital Signs Temp 96.9 F 08/13/23 00:00 Pulse 113 H 08/13/23 00:00 Resp 20 08/13/23 00:00 BP 113/63 08/13/23 00:00 Pulse Ox 97 08/13/23 00:00 O2 Del Method Room Air 08/13/23 00:00 O2 Flow Rate 2 07/26/23 11:35 BMI result Body Mass Index 49.2 Erythematous rash on right upper chest and forearm Permcath exit site is clean Const: Other: Constitutional : Awake, morbidly obese, frail looking, not in distress Neck : Normal inspection, Supple Cardiovascular : RRR, no JVP, bilateral lower extremity edema Respiratory : good bilateral air entry, no crackles, no wheezes or rhonchi Gastrointestinal: soft, lax, Non tender Skin : Warm, Dry, Permacath in place Neurological : Alert & oriented, No focal deficit Assessment & Plan Assessment and plan (1) Acute renal failure: Status: Acute Plan CHITO and severe hyperkalemia due to rhabdomyolysis. He has tubular injury due to rhabdomyolysis. Hyperkalemia At this point he has no signs of renal recovery yet. Watch urine output HD 3 times a week On schedule for dialysis - MWF Rash: Allergic Permcath exit site is clean Try hypoallergenic tapes He has an outpatient dialysis spot at [facility]. Time Spent With Patient Time: Total time managing care of this patient today ____ minutes. Procedures Date of Service Date of Service: 08/13/23
[2023-08-13] MEDS: Acetaminophen 325 MG TABLET 650 MG PO ×2 (10:22→20:16)
[2023-08-13] MEDS: Heparin Sodium,Porcine 5,000 UNIT/ML VIAL 5000 UNIT SUBCUT ×2 (10:22→15:25)
[2023-08-13] MEDS: Fluticasone Propionate Nasal 16 GM SPRAY 2 SPRAY NOSTRIL-B (10:22)
[2023-08-13] MEDS: Mineral Oil/Petrolatum,White 106 GM Tube 1 APPL TOPICAL ×2 (10:23→20:10)
[2023-08-13] MEDS: Nystatin Powder 15 GM BOTTLE 1 APPL TOPICAL ×2 (10:23→20:10)
[2023-08-13 11:18] VITALS: BP 103/71; PULSE 123; RESP 20; TEMP 36.7; O2SAT 96
[2023-08-13 12:13] LABS: Glucose, Whole Blood 187 mg/dL (60-115)
--- NOTE | 2023-08-13 12:16 | MHC.CM.PN ---
CM returned a call to Sister/HCP/Lauryn at listed #. Lauryn was asking if CM knew why a postcard that she sent Patient has not yet arrived. Also, Lauryn asked that another copy of the HCP be mailed to her (she did not yet receive the first one); CM will send second copy to Gregory, [address]HA[address], [place] [facility] [id number].
[2023-08-13] MEDS: Insulin Lispro 100 UNIT/ML 3 ML VIAL SUBCUT (13:11)
[2023-08-13 13:34] VITALS: BP 103/71; PULSE 123; O2SAT 96
--- NOTE | 2023-08-13 13:46 | HO.PM.IMPN ---
Subjective Subjective Date of Service: 08/13/23 Interval History: seen and examined this morning during dialysis follow up for renal failure Reporting dry skin on his feet which are itchy, still with itchy rash bilateral arms and around PermCath Review of Systems Review of Systems: Yes all other systems are reviewed and are negative Constitutional Constitutional: Denies chills and Denies fever(s) Cardiovascular Cardiovascular: Denies chest pain Physical Exam Vital Signs: Vital Signs: Last Vital Signs Temp 98.1 F 08/13/23 11:18 Pulse 123 H 08/13/23 11:18 Resp 20 08/13/23 11:18 BP 103/71 08/13/23 11:18 Pulse Ox 96 08/13/23 11:18 O2 Del Method Room Air 08/13/23 11:18 O2 Flow Rate 2 07/26/23 11:35 BMI result Body Mass Index 49.2 Const: General: comfortable, no acute distress, alert and awake Nutritional Appearance: obese Orientation/consciousness: patient oriented x3 Resp: Effort & Inspection: normal respiratory effort, able to speak in complete sentences, no respiratory distress and no use of accessory muscles GI: Inspection: No distended Palpation (GI): Soft to palpation Skin: Other: dry skin bottom of feet; b/l AC fossa with minimal rash Itchy rash around PermCath. Appears allergic, does not appear to be infected Neuro: General: patient oriented x3 and CN's II-XI intact bilaterally Extrem: Other: dry skin b/l feet, no erythema calves nontender Objective Data Active Medications Acetaminophen (Acetaminophen 325 Mg Tablet) 650 mg PO Q4H PRN PRN Reason: Pain, Moderate(Pain Scale 4-6) Last Admin: 08/13/23 10:22 Dose: 650 mg Documented By: ROSIO Fluticasone Propionate (Fluticasone Propionate Nasal 16 Gm [place]) 2 spray NOSTRIL-B DAILY [facility] Last Admin: 08/13/23 10:22 Dose: 2 spray Documented By: ROSIO Heparin Sodium (Porcine) (Heparin Sodium,Porcine 5,000 Unit/Ml Vial) 5,000 unit SUBCUT TID [facility] Last Admin: 08/13/23 10:22 Dose: 5,000 unit Documented By: ROSIO Dextrose (D10) 250 mls @ 750 mls/hr IV Q15M PRN PRN Reason: per Hypoglycemia Standing Ord. Insulin Human Lispro (Insulin Lispro 100 Unit/Ml 3 Ml Vial) 0 unit SUBCUT QIDACHS [facility]; Protocol Last Admin: 08/13/23 13:11 Dose: 2 unit Documented By: ROSIO Lidocaine (Lidocaine 4 % Patch Adh..Patch) 1 patch TRANSDERMA DAILY [facility] Last Admin: 08/13/23 10:22 Dose: Not Given Documented By: ROSIO Non-Admin Reason: Patient Refused Multi-Ingred Cream/Lotion/Oil/Oint (Mineral Oil/Petrolatum,White 106 Gm Tube) 1 appl TOPICAL BID [facility]; Protocol Last Admin: 08/13/23 10:23 Dose: 1 appl Documented By: ROSIO Nystatin (Nystatin Powder 15 Gm Bottle) 1 appl TOPICAL BID [facility]; Protocol Last Admin: 08/13/23 10:23 Dose: 1 appl Documented By: ROSIO Labs 08/11/23 06:47 08/11/23 06:48 Labs: Laboratory Results - last 24 hr 08/12/23 08/12/23 08/13/23 16:46 19:40 07:57 POC Glucose 96 91 88 08/13/23 12:10 POC Glucose 187 H Assessment and Plan (1) Acute renal failure: Status: Acute Plan 53 years old male with PMH of DM2, HTN, Asthma who presented to ED After sustaining a fall and laying on the floor for 9 hours found to have severe acute kidney injury from rhabdomyolysis. And hyperkalemia CHITO and severe hyperkalemia and acute metabolic acidosis due to ATN from rhabdomyolysis and no renal recovery and started on HD, TTS, High K resolved. permacath placed 07/16/23. awaiting set up of rehab with HD Continue dialysis sessions per nephrology [facility] Has outpatient dialysis spot at [place] [facility] upon discharge hypotension post dialysis, not due to sepsis Midodrine days of dialysis as needed rash around port, neck and b/l arms in areas of previous adhesive likely reaction to adhesive no cellulitis, no infection supportive care, try alternative adhesive will try topical steroid cream Sinus tachycardia Seems persistent since admission Echocardiogram with preserved EF BP low especially on dialysis days, no beta-roman ordered Afebrile, no hypoxia Will check TSH Physical deconditioning will need to increase physical activity and placement at SNF. PT following Acute?Rhabdomyolysis 2/2 fall and long stay on floor no evidence of compartment syndrome at any point Elevated troponin on admission, outpatient ischemic work up per cardiology team Acute lactic acidosis, resolved, in the setting of rhabdo and renal failure not due to severe sepsis chest pain, resolved, negative work up Diabetes-? SSI DVT PPx Heparin intermittently refuses vitals, lab draws etc reason for continued hospitalization: needs to continue dialysis pending outpatient placement Quality Stroke Does the patient have a stroke diagnosis?: No VTE Prior VTE?: No VTE Risk Level:: Medical - moderate - high VTE Device Contraindication: N/A - Device Ordered VTE Drug Contraindication: N/A - Med Ordered
[2023-08-13 15:45] VITALS: BP 117/73; PULSE 117; RESP 20; TEMP 36.8; O2SAT 96
[2023-08-13 16:34] LABS: Glucose, Whole Blood 81 mg/dL (60-115)
[2023-08-13] MEDS: Hydrocortisone 1 % Cream 28.35 GM TUBE 1 APPL TOPICAL (17:49)
[2023-08-13 20:00] VITALS: BP 115/58; PULSE 117; RESP 20; TEMP 36.9; O2SAT 96
[2023-08-13 20:12] LABS: Glucose, Whole Blood 99 mg/dL (60-115)
[2023-08-14] VITALS: BP 116/70; PULSE 121; RESP 20; TEMP 36.4; O2SAT 97
[2023-08-14 08:00] VITALS: BP 102/75; PULSE 114; RESP 18; TEMP 36.3; O2SAT 96
[2023-08-14 08:05] LABS: Glucose, Whole Blood 95 mg/dL (60-115)
[2023-08-14] MEDS: Acetaminophen 325 MG TABLET 650 MG PO ×3 (08:14→20:42)
[2023-08-14] MEDS: Lidocaine 4 % Patch ADH..PATCH 1 PATCH TRANSDERMA (08:14)
[2023-08-14] MEDS: Nystatin Powder 15 GM BOTTLE 1 APPL TOPICAL (08:15)
[2023-08-14] MEDS: Heparin Sodium,Porcine 5,000 UNIT/ML VIAL 5000 UNIT SUBCUT (08:15)
[2023-08-14] MEDS: Hydrocortisone 1 % Cream 28.35 GM TUBE 1 APPL TOPICAL (08:15)
[2023-08-14] MEDS: Mineral Oil/Petrolatum,White 106 GM Tube 1 APPL TOPICAL ×2 (08:15→20:27)
[2023-08-14] MEDS: Fluticasone Propionate Nasal 16 GM SPRAY 2 SPRAY NOSTRIL-B (08:21)
--- NOTE | 2023-08-14 10:18 | P.PNIM_ITS ---
Subjective Subjective Date of Service: 08/14/23 Interval History: seen and examined this morning during dialysis follow up for renal failure Reporting dry skin on his feet which are itchy, still with itchy rash bilateral arms and around PermCath Review of Systems Review of Systems: Yes all other systems are reviewed and are negative Constitutional Constitutional: Denies chills and Denies fever(s) Cardiovascular Cardiovascular: Denies chest pain Physical Exam 2 Vital Signs: Vital Signs: Last Vital Signs Temp 97.4 F 08/14/23 08:00 Pulse 114 H 08/14/23 08:00 Resp 18 08/14/23 08:00 BP 102/75 08/14/23 08:00 Pulse Ox 96 08/14/23 08:00 O2 Del Method Room Air 08/14/23 08:00 O2 Flow Rate 2 07/26/23 11:35 BMI result Body Mass Index 49.2 Appearing in no acute distress lung sounds are clear to auscultation heart regular rate rhythm, clear S1, S2 positive bowel sounds, abdomen is soft, nontender neuro patient is alert x3, no focal deficits pruritic rash around permacath and right forearm Objective Data Active Medications Acetaminophen (Acetaminophen 325 Mg Tablet) 650 mg PO Q4H PRN PRN Reason: Pain, Moderate(Pain Scale 4-6) Last Admin: 08/14/23 08:14 Dose: 650 mg Documented By: MARC Fluticasone Propionate (Fluticasone Propionate Nasal 16 Gm [place]) 2 spray NOSTRIL-B DAILY [facility] Last Admin: 08/14/23 08:21 Dose: 2 spray Documented By: MARC Heparin Sodium (Porcine) (Heparin Sodium,Porcine 5,000 Unit/Ml Vial) 5,000 unit SUBCUT TID [facility] Last Admin: 08/14/23 08:15 Dose: 5,000 unit Documented By: MARC Hydrocortisone (Hydrocortisone 1 % Cream 28.35 Gm Tube) 1 appl TOPICAL DAILY [facility]; Protocol Last Admin: 08/14/23 08:15 Dose: 1 appl Documented By: MARC Dextrose (D10) 250 mls @ 750 mls/hr IV Q15M PRN PRN Reason: per Hypoglycemia Standing Ord. Insulin Human Lispro (Insulin Lispro 100 Unit/Ml 3 Ml Vial) 0 unit SUBCUT QIDACHS [facility]; Protocol Last Admin: 08/14/23 08:06 Dose: Not Given Documented By: MARC Non-Admin Reason: No Insulin Coverage Lidocaine (Lidocaine 4 % Patch Adh..Patch) 1 patch TRANSDERMA DAILY [facility] Last Admin: 08/14/23 08:14 Dose: 1 patch Documented By: MARC Multi-Ingred Cream/Lotion/Oil/Oint (Mineral Oil/Petrolatum,White 106 Gm Tube) 1 appl TOPICAL BID [facility]; Protocol Last Admin: 08/14/23 08:15 Dose: 1 appl Documented By: MARC Nystatin (Nystatin Powder 15 Gm Bottle) 1 appl TOPICAL BID [facility]; Protocol Last Admin: 08/14/23 08:15 Dose: 1 appl Documented By: MARC Labs 08/11/23 06:47 08/11/23 06:48 Labs: Laboratory Results - last 24 hr 08/13/23 08/13/23 08/13/23 12:10 16:25 19:52 POC Glucose 187 H 81 99 08/14/23 07:55 POC Glucose 95 Assessment and Plan (1) Acute renal failure: Status: Acute Plan 53 years old male with PMH of DM2, HTN, Asthma who presented to ED After sustaining a fall and laying on the floor for 9 hours found to have severe acute kidney injury from rhabdomyolysis. And hyperkalemia CHITO and severe hyperkalemia and acute metabolic acidosis due to ATN from rhabdomyolysis and no renal recovery and started on HD, TTS, permacath placed 07/16/23. awaiting set up of rehab with HD Continue dialysis sessions per nephrology MWF Has outpatient dialysis spot at [place] [facility] upon discharge Hypotension. Resolved post dialysis, not due to sepsis Midodrine days of dialysis as needed Rash around port, neck and b/l arms in areas of previous adhesive likely reaction to adhesive no cellulitis, no infection supportive care, try alternative adhesive will try topical steroid cream Sinus tachycardia Seems persistent since admission\, no hypoxia Echocardiogram with preserved EF BP low especially on dialysis days, no beta-roman ordered Afebrile, no hypoxia Will check TSH Physical deconditioning will need to increase physical activity and placement at SNF. PT following Oob to chair Acute?Rhabdomyolysis 2/2 fall and long stay on floor no evidence of compartment syndrome at any point Elevated troponin on admission outpatient ischemic work up per cardiology team Acute lactic acidosis, resolved in the setting of rhabdo and renal failure not due to severe sepsis chest pain resolved negative work up Diabetes ss, ada diet Morbid Obesity. BMI 49.2 Discussed importance of weight management as this may be contributing to worsening of other comorbidities DVT PPx Heparin attending Dr. Alcantar intermittently refuses vitals, lab draws etc reason for continued hospitalization: needs to continue dialysis pending outpatient placement Quality Stroke Does the patient have a stroke diagnosis?: No VTE Prior VTE?: No VTE Risk Level:: Medical - moderate - high VTE Device Contraindication: N/A - Device Ordered VTE Drug Contraindication: N/A - Med Ordered
[2023-08-14 11:49] LABS: Glucose, Whole Blood 93 mg/dL (60-115)
[2023-08-14 11:55] VITALS: BP 117/63; PULSE 115; RESP 18; TEMP 36.3; O2SAT 95
[2023-08-14 13:29] LABS: Hematocrit 33.8 % (42.0-52.0); Hemoglobin 11.1 g/dl (14.0-18.0); Mean Corpuscular HGB Conc 32.8 g/dl (31.0-36.0); Mean Corpuscular Hemoglobin 28.9 pg (27.0-33.0); Platelet Count 370 X10*3/uL (160-400); Red Blood Count 3.84 X10*6/uL (4.60-5.80); Red Cell Distribution Width 13.1 % (11.0-16.0)
[2023-08-14 13:47] LABS: Anion Gap 19 (12-20); Blood Urea Nitrogen 49 mg/dL (9-16); Carbon Dioxide 23 mmol/L (22-29); Chloride 99 mmol/L (96-108); Glucose Random 111 mg/dL (60-115); Potassium 4.6 mmol/L (3.3-5.1); Sodium 136 mmol/L (135-145)
[2023-08-14 13:51] LABS: Creatinine Clr Calc Pharmacy 13.9; Estimated Glomerular Filt Rate 6
[2023-08-14 16:00] VITALS: BP 140/77; PULSE 105; RESP 18; TEMP 36.4; O2SAT 96
[2023-08-14 16:39] LABS: Glucose, Whole Blood 116 mg/dL (60-115)
[2023-08-14 20:00] VITALS: BP 105/65; PULSE 108; RESP 20; TEMP 37.3
[2023-08-14 21:02] LABS: Glucose, Whole Blood 107 mg/dL (60-115)
[2023-08-15] VITALS (7 sets, daily range): BP systolic 106–139; BP diastolic 65–85; PULSE 100–110; RESP 17–20; TEMP 36.3–37; O2SAT 93–100
[2023-08-15] MEDS: Acetaminophen 325 MG TABLET 650 MG PO ×3 (04:39→22:54)
[2023-08-15 07:58] LABS: Glucose, Whole Blood 96 mg/dL (60-115)
[2023-08-15] MEDS: Mineral Oil/Petrolatum,White 106 GM Tube 1 APPL TOPICAL ×2 (08:23→22:55)
[2023-08-15] MEDS: Hydrocortisone 1 % Cream 28.35 GM TUBE 1 APPL TOPICAL (08:23)
[2023-08-15] MEDS: Fluticasone Propionate Nasal 16 GM SPRAY 2 SPRAY NOSTRIL-B (08:23)
[2023-08-15] MEDS: Lidocaine 4 % Patch ADH..PATCH 1 PATCH TRANSDERMA (08:23)
[2023-08-15] MEDS: Nystatin Powder 15 GM BOTTLE 1 APPL TOPICAL (08:23)
--- NOTE | 2023-08-15 09:37 | P.PNIM_ITS ---
Subjective Subjective Date of Service: 08/15/23 Interval History: seen and examined this morning during dialysis follow up for renal failure Reporting dry skin on his feet which are itchy, still with itchy rash bilateral arms and around PermCath Review of Systems Review of Systems: Yes all other systems are reviewed and are negative Constitutional Constitutional: Denies chills and Denies fever(s) Cardiovascular Cardiovascular: Denies chest pain Physical Exam 2 Vital Signs: Vital Signs: Last Vital Signs Temp 98.5 F 08/15/23 03:21 Pulse 105 H 08/15/23 03:21 Resp 20 08/15/23 03:21 BP 106/72 08/15/23 03:21 Pulse Ox 96 08/15/23 03:21 O2 Del Method Room Air 08/15/23 03:21 O2 Flow Rate 2 07/26/23 11:35 BMI result Body Mass Index 49.2 Appearing in no acute distress lung sounds are clear to auscultation heart regular rate rhythm, clear S1, S2 positive bowel sounds, abdomen is soft, nontender neuro patient is alert x3, no focal deficits Objective Data Active Medications Acetaminophen (Acetaminophen 325 Mg Tablet) 650 mg PO Q4H PRN PRN Reason: Pain, Moderate(Pain Scale 4-6) Last Admin: 08/15/23 08:23 Dose: 650 mg Documented By: MARC Fluticasone Propionate (Fluticasone Propionate Nasal 16 Gm [employer]) 2 spray NOSTRIL-B DAILY [facility] Last Admin: 08/15/23 08:23 Dose: 2 spray Documented By: MARC Heparin Sodium (Porcine) (Heparin Sodium,Porcine 5,000 Unit/Ml Vial) 5,000 unit SUBCUT TID [facility] Last Admin: 08/15/23 08:25 Dose: Not Given Documented By: MARC Non-Admin Reason: Patient Refused Hydrocortisone (Hydrocortisone 1 % Cream 28.35 Gm Tube) 1 appl TOPICAL DAILY [facility]; Protocol Last Admin: 08/15/23 08:23 Dose: 1 appl Documented By: MARC Dextrose (D10) 250 mls @ 750 mls/hr IV Q15M PRN PRN Reason: per Hypoglycemia Standing Ord. Insulin Human Lispro (Insulin Lispro 100 Unit/Ml 3 Ml Vial) 0 unit SUBCUT QIDACHS [facility]; Protocol Last Admin: 08/15/23 07:58 Dose: Not Given Documented By: MARC Non-Admin Reason: No Insulin Coverage Lidocaine (Lidocaine 4 % Patch Adh..Patch) 1 patch TRANSDERMA DAILY [facility] Last Admin: 08/15/23 08:23 Dose: 1 patch Documented By: MARC Multi-Ingred Cream/Lotion/Oil/Oint (Mineral Oil/Petrolatum,White 106 Gm Tube) 1 appl TOPICAL BID [facility]; Protocol Last Admin: 08/15/23 08:23 Dose: 1 appl Documented By: MARC Nystatin (Nystatin Powder 15 Gm Bottle) 1 appl TOPICAL BID [facility]; Protocol Last Admin: 08/15/23 08:23 Dose: 1 appl Documented By: MARC Labs 08/14/23 13:21 08/14/23 13:21 Labs: Laboratory Results - last 24 hr 08/14/23 08/14/23 08/14/23 11:46 13:21 16:35 MCV 88.0 MCH 28.9 MCHC 32.8 RDW 13.1 Plt Count 370 MPV 8.0 L Absolute Nucleated RBC 0.000 Nucleated RBC % (auto) 0.0 Anion Gap 19 Estim Creat Clear Calc 13.9 Estimated GFR 6 POC Glucose 93 116 H Random Glucose 111 Calcium 10.0 D TSH 2.60 08/14/23 08/15/23 20:59 07:49 MCV MCH MCHC RDW Plt Count MPV Absolute Nucleated RBC Nucleated RBC % (auto) Anion Gap Estim Creat Clear Calc Estimated GFR POC Glucose 107 96 Random Glucose Calcium TSH Assessment and Plan (1) Acute renal failure: Status: Acute Plan 53 years old male with PMH of DM2, HTN, Asthma who presented to ED After sustaining a fall and laying on the floor for 9 hours found to have severe acute kidney injury from rhabdomyolysis. And hyperkalemia CHITO and severe hyperkalemia and acute metabolic acidosis due to ATN from rhabdomyolysis and no renal recovery and started on HD, TTS, permacath placed 07/16/23. awaiting set up of rehab with HD Continue dialysis sessions per nephrology MW Has outpatient dialysis spot at [facility] upon discharge Hypotension. Resolved post dialysis, not due to sepsis Midodrine days of dialysis as needed Rash around port, neck and b/l arms in areas of previous adhesive likely reaction to adhesive no cellulitis, no infection supportive care, try alternative adhesive will try topical steroid cream Sinus tachycardia Seems persistent since admission, no hypoxia Echocardiogram with preserved EF BP low especially on dialysis days, no beta-roman ordered Afebrile, no hypoxia Will check TSH Physical deconditioning will need to increase physical activity and placement at SNF. PT following Oob to chair and ambulating Acute?Rhabdomyolysis 2/2 fall and long stay on floor no evidence of compartment syndrome at any point Elevated troponin on admission outpatient ischemic work up per cardiology team Acute lactic acidosis, resolved in the setting of rhabdo and renal failure not due to severe sepsis chest pain resolved negative work up Diabetes ss, ada diet Morbid Obesity. BMI 49.2 Discussed importance of weight management as this may be contributing to worsening of other comorbidities DVT PPx Heparin attending Dr. Alcantar intermittently refuses vitals, lab draws etc reason for continued hospitalization: needs to continue dialysis pending outpatient placement Quality Stroke Does the patient have a stroke diagnosis?: No VTE Prior VTE?: No VTE Risk Level:: Medical - moderate - high VTE Device Contraindication: N/A - Device Ordered VTE Drug Contraindication: N/A - Med Ordered
[2023-08-15 12:01] LABS: Glucose, Whole Blood 106 mg/dL (60-115)
[2023-08-15 16:01] LABS: Glucose, Whole Blood 96 mg/dL (60-115)
[2023-08-15 20:49] LABS: Glucose, Whole Blood 91 mg/dL (60-115)
[2023-08-15] MEDS: Heparin Sodium,Porcine 5,000 UNIT/ML VIAL 5000 UNIT SUBCUT (22:54)
[2023-08-16 03:36] VITALS: BP 111/71; PULSE 100; RESP 20; TEMP 36.7; O2SAT 97
[2023-08-16 07:22] LABS: Glucose, Whole Blood 91 mg/dL (60-115)
[2023-08-16 07:41] VITALS: BP 114/79; PULSE 108; RESP 18; TEMP 36.5; O2SAT 97
--- NOTE | 2023-08-16 09:39 | W.PM.DNNEP ---
Subjective Subjective Date of Service: 08/16/23 Principal diagnosis: Elevated troponins This patient was seen during dialysis. Interval history: Events noted Physical Exam Vital Signs: Vital Signs: Last Vital Signs Temp 97.7 F 08/16/23 07:41 Pulse 108 H 08/16/23 07:41 Resp 18 08/16/23 07:41 BP 114/79 08/16/23 07:41 Pulse Ox 97 08/16/23 07:41 O2 Del Method Room Air 08/16/23 07:41 O2 Flow Rate 2 07/26/23 11:35 BMI result Body Mass Index 49.2 Const: Other: Constitutional : Awake, morbidly obese, frail looking, not in distress Neck : Normal inspection, Supple Cardiovascular : RRR, no JVP, bilateral lower extremity edema Respiratory : good bilateral air entry, no crackles, no wheezes or rhonchi Gastrointestinal: soft, lax, Non tender Skin : Warm, Dry, Permacath in place Neurological : Alert & oriented, No focal deficit Assessment & Plan Assessment and plan (1) Acute renal failure: Status: Acute Plan CHITO and severe hyperkalemia due to rhabdomyolysis. He has tubular injury due to rhabdomyolysis. Hyperkalemia At this point he has no signs of renal recovery yet. Watch urine output HD 3 times a week On schedule for dialysis - MWF Rash: Allergic Permcath exit site is clean Try hypoallergenic tapes He has an outpatient dialysis spot at [facility]. Time Spent With Patient Time: Total time managing care of this patient today ____ minutes. Procedures Date of Service Date of Service: 08/18/23
--- NOTE | 2023-08-16 11:06 | MHC.CM.PN ---
No SNF bed offers after extensive SNF search; CM will follow.
--- NOTE | 2023-08-16 12:28 | HO.PM.IMPN ---
Subjective Subjective Date of Service: 08/16/23 Interval History: seen and examined this morning during dialysis follow up for renal failure Reporting dry skin on his feet which are itchy, still with itchy rash bilateral arms and around PermCath not motivated to get oob Review of Systems Review of Systems: Yes all other systems are reviewed and are negative Constitutional Constitutional: Denies chills and Denies fever(s) Cardiovascular Cardiovascular: Denies chest pain Physical Exam Vital Signs: Vital Signs: Last Vital Signs Temp 97.7 F 08/16/23 07:41 Pulse 108 H 08/16/23 07:41 Resp 18 08/16/23 07:41 BP 114/79 08/16/23 07:41 Pulse Ox 97 08/16/23 07:41 O2 Del Method Room Air 08/16/23 07:41 O2 Flow Rate 2 07/26/23 11:35 BMI result Body Mass Index 49.2 Appearing in no acute distress lung sounds are clear to auscultation heart regular rate rhythm, clear S1, S2 positive bowel sounds, abdomen is soft, nontender neuro patient is alert x3, no focal deficits Objective Data Active Medications Acetaminophen (Acetaminophen 325 Mg Tablet) 650 mg PO Q4H PRN PRN Reason: Pain, Moderate(Pain Scale 4-6) Last Admin: 08/15/23 22:54 Dose: 650 mg Documented By: JOLEEN Fluticasone Propionate (Fluticasone Propionate Nasal 16 Gm [place]) 2 spray NOSTRIL-B DAILY [facility] Last Admin: 08/15/23 08:23 Dose: 2 spray Documented By: MARC Heparin Sodium (Porcine) (Heparin Sodium,Porcine 5,000 Unit/Ml Vial) 5,000 unit SUBCUT TID [facility] Last Admin: 08/15/23 22:54 Dose: 5,000 unit Documented By: JOLEEN Hydrocortisone (Hydrocortisone 1 % Cream 28.35 Gm Tube) 1 appl TOPICAL DAILY [facility]; Protocol Last Admin: 08/15/23 08:23 Dose: 1 appl Documented By: MARC Dextrose (D10) 250 mls @ 750 mls/hr IV Q15M PRN PRN Reason: per Hypoglycemia Standing Ord. Insulin Human Lispro (Insulin Lispro 100 Unit/Ml 3 Ml Vial) 0 unit SUBCUT QIDACHS [facility]; Protocol Last Admin: 08/16/23 08:40 Dose: Not Given Documented By: ANA Non-Admin Reason: No Insulin Coverage Lidocaine (Lidocaine 4 % Patch Adh..Patch) 1 patch TRANSDERMA DAILY [facility] Last Admin: 08/15/23 08:23 Dose: 1 patch Documented By: MARC Multi-Ingred Cream/Lotion/Oil/Oint (Mineral Oil/Petrolatum,White 106 Gm Tube) 1 appl TOPICAL BID [facility]; Protocol Last Admin: 08/15/23 22:55 Dose: 1 appl Documented By: JOLEEN Nystatin (Nystatin Powder 15 Gm Bottle) 1 appl TOPICAL BID [facility]; Protocol Last Admin: 08/15/23 22:59 Dose: Not Given Documented By: JOLEEN Non-Admin Reason: Patient Refused Labs 08/14/23 13:21 08/14/23 13:21 Labs: Laboratory Results - last 24 hr 08/15/23 08/15/23 08/16/23 15:51 20:40 07:05 POC Glucose 96 91 91 Assessment and Plan (1) Acute renal failure: Status: Acute Plan 53 years old male with PMH of DM2, HTN, Asthma who presented to ED After sustaining a fall and laying on the floor for 9 hours found to have severe acute kidney injury from rhabdomyolysis. And hyperkalemia ? depression lack of motivation to ambulate or even get oob psych consultation for possible medication evaluation CHITO and severe hyperkalemia and acute metabolic acidosis due to ATN from rhabdomyolysis and no renal recovery and started on HD, TTS, permacath placed 07/16/23. awaiting set up of rehab with HD Continue dialysis sessions per nephrology MWF Has outpatient dialysis spot at [place] dialysis upon discharge Hypotension. Resolved post dialysis, not due to sepsis Midodrine days of dialysis as needed Rash around port, neck and b/l arms in areas of previous adhesive likely reaction to adhesive no cellulitis, no infection supportive care, try alternative adhesive will try topical steroid cream Sinus tachycardia Seems persistent since admission, no hypoxia Echocardiogram with preserved EF BP low especially on dialysis days, no beta-roman ordered Afebrile, no hypoxia TSH 2.60 Physical deconditioning will need to increase physical activity and placement at SNF. PT following Oob to chair and ambulating daily Acute?Rhabdomyolysis 2/2 fall and long stay on floor no evidence of compartment syndrome at any point Elevated troponin on admission outpatient ischemic work up per cardiology team Acute lactic acidosis, resolved in the setting of rhabdo and renal failure not due to severe sepsis chest pain resolved negative work up Diabetes ss, ada diet Morbid Obesity. BMI 49.2 Discussed importance of weight management as this may be contributing to worsening of other comorbidities DVT PPx Heparin attending Dr. Alcantar intermittently refuses vitals, lab draws etc reason for continued hospitalization: needs to continue dialysis pending outpatient placement Quality Stroke Does the patient have a stroke diagnosis?: No VTE Prior VTE?: No VTE Risk Level:: Medical - moderate - high VTE Device Contraindication: N/A - Device Ordered VTE Drug Contraindication: N/A - Med Ordered
[2023-08-16 13:03] VITALS: BP 111/42; PULSE 122; RESP 20; TEMP 36.4; O2SAT 98
[2023-08-16 13:11] LABS: Glucose, Whole Blood 103 mg/dL (60-115)
[2023-08-16] MEDS: Acetaminophen 325 MG TABLET 650 MG PO (13:20)
[2023-08-16] MEDS: Fluticasone Propionate Nasal 16 GM SPRAY 2 SPRAY NOSTRIL-B (13:21)
[2023-08-16] MEDS: Mineral Oil/Petrolatum,White 106 GM Tube 1 APPL TOPICAL ×2 (13:21→21:42)
[2023-08-16] MEDS: Nystatin Powder 15 GM BOTTLE 1 APPL TOPICAL ×2 (13:21→21:42)
[2023-08-16] MEDS: Hydrocortisone 1 % Cream 28.35 GM TUBE 1 APPL TOPICAL (13:21)
[2023-08-16] MEDS: Lidocaine 4 % Patch ADH..PATCH 1 PATCH TRANSDERMA (13:23)
[2023-08-16] MEDS: Heparin Sodium,Porcine 5,000 UNIT/ML VIAL 5000 UNIT SUBCUT (16:13)
[2023-08-16] MEDS: ARIPiprazole 5 MG TABLET PO (17:16)
[2023-08-16 17:17] LABS: Glucose, Whole Blood 125 mg/dL (60-115)
[2023-08-16 19:33] VITALS: BP 121/63; PULSE 106; RESP 18; TEMP 37.1; O2SAT 96
[2023-08-16 21:16] LABS: Glucose, Whole Blood 90 mg/dL (60-115)
[2023-08-16] MEDS: traZODone HCL 50 MG TABLET PO (21:42)
[2023-08-17] VITALS: BP 110/68; PULSE 117; RESP 19; TEMP 36.7; O2SAT 96
[2023-08-17 03:26] VITALS: BP 109/75; PULSE 112; RESP 18; TEMP 37.2; O2SAT 96
[2023-08-17 07:18] LABS: Glucose, Whole Blood 112 mg/dL (60-115)
[2023-08-17 07:52] VITALS: BP 130/70; PULSE 115; RESP 20; TEMP 36.4; O2SAT 97
[2023-08-17] MEDS: ARIPiprazole 5 MG TABLET PO (09:20)
[2023-08-17] MEDS: Lidocaine 4 % Patch ADH..PATCH 1 PATCH TRANSDERMA (09:20)
[2023-08-17] MEDS: Hydrocortisone 1 % Cream 28.35 GM TUBE 1 APPL TOPICAL (09:21)
[2023-08-17] MEDS: Fluticasone Propionate Nasal 16 GM SPRAY 2 SPRAY NOSTRIL-B (09:21)
[2023-08-17] MEDS: Nystatin Powder 15 GM BOTTLE 1 APPL TOPICAL ×2 (09:25→19:41)
--- NOTE | 2023-08-17 10:10 | MHC.CM.PN ---
Per ROUNDS discussion, Patient has been started on an Antidepressant in hope of improving mood and motivation to work with PT. CM will continue to follow.
[2023-08-17 10:59] LABS: Glucose, Whole Blood 101 mg/dL (60-115)
[2023-08-17 11:12] VITALS: BP 122/65; PULSE 112; RESP 20; TEMP 36.6; O2SAT 97
--- NOTE | 2023-08-17 11:35 | HO.PM.IMPN ---
Subjective Subjective Date of Service: 08/17/23 Interval History: seen and examined this morning during dialysis follow up for renal failure Reporting dry skin on his feet which are itchy, still with itchy rash bilateral arms and around PermCath not motivated to get oob Review of Systems Review of Systems: Yes all other systems are reviewed and are negative Constitutional Constitutional: Denies chills and Denies fever(s) Cardiovascular Cardiovascular: Denies chest pain Physical Exam Vital Signs: Vital Signs: Last Vital Signs Temp 97.8 F 08/17/23 11:12 Pulse 112 H 08/17/23 11:12 Resp 20 08/17/23 11:12 BP 122/65 08/17/23 11:12 Pulse Ox 97 08/17/23 11:12 O2 Del Method Room Air 08/17/23 11:12 O2 Flow Rate 2 07/26/23 11:35 BMI result Body Mass Index 49.2 Appearing in no acute distress lung sounds are clear to auscultation heart regular rate rhythm, clear S1, S2 positive bowel sounds, abdomen is soft, nontender neuro patient is alert x3, no focal deficits Objective Data Active Medications Acetaminophen (Acetaminophen 325 Mg Tablet) 650 mg PO Q4H PRN PRN Reason: Pain, Moderate(Pain Scale 4-6) Last Admin: 08/16/23 13:20 Dose: 650 mg Documented By: ANA Aripiprazole (Aripiprazole 5 Mg Tablet) 5 mg PO DAILY [facility] Last Admin: 08/17/23 09:20 Dose: 5 mg Documented By: ANA Fluticasone Propionate (Fluticasone Propionate Nasal 16 Gm [place]) 2 spray NOSTRIL-B DAILY [facility] Last Admin: 08/17/23 09:21 Dose: 2 spray Documented By: ANA Heparin Sodium (Porcine) (Heparin Sodium,Porcine 5,000 Unit/Ml Vial) 5,000 unit SUBCUT TID [facility] Last Admin: 08/17/23 09:22 Dose: Not Given Documented By: ANA Non-Admin Reason: Patient Refused Hydrocortisone (Hydrocortisone 1 % Cream 28.35 Gm Tube) 1 appl TOPICAL DAILY [facility]; Protocol Last Admin: 08/17/23 09:21 Dose: 1 appl Documented By: ANA Dextrose (D10) 250 mls @ 750 mls/hr IV Q15M PRN PRN Reason: per Hypoglycemia Standing Ord. Insulin Human Lispro (Insulin Lispro 100 Unit/Ml 3 Ml Vial) 0 unit SUBCUT QIDACHS [facility]; Protocol Last Admin: 08/17/23 07:41 Dose: Not Given Documented By: ANA Non-Admin Reason: No Insulin Coverage Lidocaine (Lidocaine 4 % Patch Adh..Patch) 1 patch TRANSDERMA DAILY [facility] Last Admin: 08/17/23 09:20 Dose: 1 patch Documented By: ANA Multi-Ingred Cream/Lotion/Oil/Oint (Mineral Oil/Petrolatum,White 106 Gm Tube) 1 appl TOPICAL BID [facility]; Protocol Last Admin: 08/17/23 09:24 Dose: Not Given Documented By: ANA Non-Admin Reason: Patient Refused Nystatin (Nystatin Powder 15 Gm Bottle) 1 appl TOPICAL BID [facility]; Protocol Last Admin: 08/17/23 09:25 Dose: 1 appl Documented By: ANA Trazodone HCl (Trazodone Hcl 50 Mg Tablet) 50 mg PO BEDTIME [facility] Last Admin: 08/16/23 21:42 Dose: 50 mg Documented By: KESLEY Labs 08/14/23 13:21 08/14/23 13:21 Labs: Laboratory Results - last 24 hr 08/16/23 08/16/23 08/16/23 13:00 17:15 21:12 POC Glucose 103 125 H 90 08/17/23 08/17/23 07:11 10:48 POC Glucose 112 101 Assessment and Plan (1) Acute renal failure: Status: Acute Plan 53 years old male with PMH of DM2, HTN, Asthma who presented to ED After sustaining a fall and laying on the floor for 9 hours found to have severe acute kidney injury from rhabdomyolysis. And hyperkalemia Depression. unspecified lack of motivation to ambulate or even get oob Restart Abilify and trazadone consult psych if no change CHITO and severe hyperkalemia and acute metabolic acidosis due to ATN from rhabdomyolysis and no renal recovery and started on HD, TTS, permacath placed 07/16/23. awaiting set up of rehab with HD Continue dialysis sessions per nephrology MW Has outpatient dialysis spot at [place] dialysis upon discharge Hypotension. Resolved post dialysis, not due to sepsis Midodrine days of dialysis as needed Rash around port, neck and b/l arms in areas of previous adhesive likely reaction to adhesive no cellulitis, no infection supportive care, try alternative adhesive will try topical steroid cream Sinus tachycardia Seems persistent since admission, no hypoxia Echocardiogram with preserved EF BP low especially on dialysis days, no beta-roman ordered Afebrile, no hypoxia TSH 2.60 Physical deconditioning will need to increase physical activity PT following Oob to chair and ambulating daily Acute?Rhabdomyolysis 2/2 fall and long stay on floor no evidence of compartment syndrome at any point Elevated troponin on admission outpatient ischemic work up per cardiology team Acute lactic acidosis, resolved in the setting of rhabdo and renal failure not due to severe sepsis chest pain resolved negative work up hx of substance abuse off suboxone since admission Diabetes ss, ada diet Morbid Obesity. BMI 49.2 Discussed importance of weight management as this may be contributing to worsening of other comorbidities DVT PPx Heparin attending Dr. Alcantar intermittently refuses vitals, lab draws etc reason for continued hospitalization: needs to continue dialysis pending outpatient placement Quality Stroke Does the patient have a stroke diagnosis?: No VTE Prior VTE?: No VTE Risk Level:: Medical - moderate - high VTE Device Contraindication: N/A - Device Ordered VTE Drug Contraindication: N/A - Med Ordered
[2023-08-17] MEDS: Heparin Sodium,Porcine 5,000 UNIT/ML VIAL 5000 UNIT SUBCUT ×2 (14:08→19:37)
[2023-08-17] MEDS: Acetaminophen 325 MG TABLET 650 MG PO (14:13)
[2023-08-17 15:07] VITALS: BP 126/74; PULSE 109; RESP 20; TEMP 36.3; O2SAT 97
[2023-08-17 17:13] LABS: Glucose, Whole Blood 112 mg/dL (60-115)
[2023-08-17] MEDS: traZODone HCL 50 MG TABLET PO (19:37)
[2023-08-17] MEDS: Mineral Oil/Petrolatum,White 106 GM Tube 1 APPL TOPICAL (19:41)
[2023-08-17 19:57] VITALS: BP 106/61; PULSE 112; RESP 18; TEMP 36.3; O2SAT 95
[2023-08-17 20:49] LABS: Glucose, Whole Blood 103 mg/dL (60-115)
[2023-08-18] VITALS: BP 111/66; PULSE 114; RESP 20; TEMP 36.3; O2SAT 93
[2023-08-18 07:40] LABS: Glucose, Whole Blood 98 mg/dL (60-115)
[2023-08-18 08:00] VITALS: BP 108/77; PULSE 117; RESP 20; TEMP 36.6; O2SAT 96
--- NOTE | 2023-08-18 08:37 | HO.PM.IMPN ---
Subjective Subjective Date of Service: 08/18/23 Interval History: seen and examined this morning during dialysis follow up for renal failure good appetite not motivated to get oob Review of Systems Review of Systems: Yes all other systems are reviewed and are negative Constitutional Constitutional: Denies chills and Denies fever(s) Cardiovascular Cardiovascular: Denies chest pain Physical Exam Vital Signs: Vital Signs: Last Vital Signs Temp 97.8 F 08/18/23 08:00 Pulse 117 H 08/18/23 08:00 Resp 20 08/18/23 08:00 BP 108/77 08/18/23 08:00 Pulse Ox 96 08/18/23 08:00 O2 Del Method Room Air 08/18/23 08:00 O2 Flow Rate 2 07/26/23 11:35 BMI result Body Mass Index 49.2 Appearing in no acute distress lung sounds are clear to auscultation heart regular rate rhythm, clear S1, S2 positive bowel sounds, abdomen is soft, nontender neuro patient is alert x3, no focal deficits Objective Data Active Medications Acetaminophen (Acetaminophen 325 Mg Tablet) 650 mg PO Q4H PRN PRN Reason: Pain, Moderate(Pain Scale 4-6) Last Admin: 08/17/23 14:13 Dose: 650 mg Documented By: LUIS Aripiprazole (Aripiprazole 5 Mg Tablet) 5 mg PO DAILY [facility] Last Admin: 08/17/23 09:20 Dose: 5 mg Documented By: ANA Fluticasone Propionate (Fluticasone Propionate Nasal 16 Gm [place]) 2 spray NOSTRIL-B DAILY [facility] Last Admin: 08/17/23 09:21 Dose: 2 spray Documented By: ANA Heparin Sodium (Porcine) (Heparin Sodium,Porcine 5,000 Unit/Ml Vial) 5,000 unit SUBCUT TID [facility] Last Admin: 08/17/23 19:37 Dose: 5,000 unit Documented By: LUIS Hydrocortisone (Hydrocortisone 1 % Cream 28.35 Gm Tube) 1 appl TOPICAL DAILY [facility]; Protocol Last Admin: 08/17/23 09:21 Dose: 1 appl Documented By: ANA Dextrose (D10) 250 mls @ 750 mls/hr IV Q15M PRN PRN Reason: per Hypoglycemia Standing Ord. Insulin Human Lispro (Insulin Lispro 100 Unit/Ml 3 Ml Vial) 0 unit SUBCUT QIDACHS [facility]; Protocol Last Admin: 08/18/23 07:38 Dose: Not Given Documented By: TIA Non-Admin Reason: No Insulin Coverage Lidocaine (Lidocaine 4 % Patch Adh..Patch) 1 patch TRANSDERMA DAILY [facility] Last Admin: 08/17/23 09:20 Dose: 1 patch Documented By: ANA Multi-Ingred Cream/Lotion/Oil/Oint (Mineral Oil/Petrolatum,White 106 Gm Tube) 1 appl TOPICAL BID [facility]; Protocol Last Admin: 08/17/23 19:41 Dose: 1 appl Documented By: LUIS Nystatin (Nystatin Powder 15 Gm Bottle) 1 appl TOPICAL BID [facility]; Protocol Last Admin: 08/17/23 19:41 Dose: 1 appl Documented By: LUIS Ondansetron HCl (Ondansetron Hcl 4 Mg/2 Ml Vial) 4 mg IVPUSH Q6H PRN PRN Reason: Nausea and Vomiting Trazodone HCl (Trazodone Hcl 50 Mg Tablet) 50 mg PO BEDTIME [facility] Last Admin: 08/17/23 19:37 Dose: 50 mg Documented By: LUIS Labs 08/14/23 13:21 08/18/23 08:01 Labs: Laboratory Results - last 24 hr 08/17/23 08/17/23 08/17/23 10:48 17:10 20:45 POC Glucose 101 112 103 08/18/23 07:33 POC Glucose 98 Assessment and Plan (1) Acute renal failure: Status: Acute Plan 53 years old male with PMH of DM2, HTN, Asthma who presented to ED After sustaining a fall and laying on the floor for 9 hours found to have severe acute kidney injury from rhabdomyolysis and hyperkalemia Depression. unspecified lack of motivation to ambulate or even get oob Restarted abilify and trazodone consult psych if no change Rash improving around port, neck and b/l arms in areas of previous adhesive likely reaction to adhesive no cellulitis, no infection supportive care, try alternative adhesive will try topical steroid cream CHITO and severe hyperkalemia and acute metabolic acidosis due to ATN from rhabdomyolysis and no renal recovery and started on HD, TTS, permacath placed 07/16/23. awaiting set up of rehab with HD Continue dialysis sessions per nephrology MW Has outpatient dialysis spot at [place] dialysis upon discharge Hypotension. Resolved post dialysis, not due to sepsis Midodrine days of dialysis as needed Sinus tachycardia Seems persistent since admission, no hypoxia Echocardiogram with preserved EF BP low especially on dialysis days, no beta-roman ordered Afebrile, no hypoxia TSH 2.60 Physical deconditioning will need to increase physical activity PT following Oob to chair and ambulating daily Acute?Rhabdomyolysis 2/2 fall and long stay on floor no evidence of compartment syndrome at any point Elevated troponin on admission outpatient ischemic work up per cardiology team Acute lactic acidosis, resolved in the setting of rhabdo and renal failure not due to severe sepsis chest pain resolved negative work up hx of substance abuse off suboxone since admission Diabetes ss, ada diet Morbid Obesity. BMI 49.2 Discussed importance of weight management as this may be contributing to worsening of other comorbidities DVT PPx Heparin attending Dr. Johnson intermittently refuses vitals, lab draws etc reason for continued hospitalization: needs to continue dialysis pending outpatient placement Quality Stroke Does the patient have a stroke diagnosis?: No VTE Prior VTE?: No VTE Risk Level:: Medical - moderate - high VTE Device Contraindication: N/A - Device Ordered VTE Drug Contraindication: N/A - Med Ordered
[2023-08-18 09:17] LABS: Anion Gap 20 (12-20); Blood Urea Nitrogen 32 mg/dL (9-16); Calcium 10.4 mg/dL (8.4-10.2); Carbon Dioxide 24 mmol/L (22-29); Chloride 96 mmol/L (96-108); Glucose Random 99 mg/dL (60-115); Potassium 3.7 mmol/L (3.3-5.1); Sodium 136 mmol/L (135-145)
[2023-08-18 09:19] LABS: Creatinine Clr Calc Pharmacy 20.5; Estimated Glomerular Filt Rate 10
[2023-08-18] MEDS: Acetaminophen 325 MG TABLET 650 MG PO ×2 (10:24→20:32)
[2023-08-18] MEDS: Heparin Sodium,Porcine 5,000 UNIT/ML VIAL 5000 UNIT SUBCUT ×3 (10:24→20:32)
[2023-08-18] MEDS: ARIPiprazole 5 MG TABLET PO (10:24)
[2023-08-18] MEDS: Mineral Oil/Petrolatum,White 106 GM Tube 1 APPL TOPICAL ×2 (10:25→20:33)
[2023-08-18] MEDS: Fluticasone Propionate Nasal 16 GM SPRAY 2 SPRAY NOSTRIL-B (10:25)
[2023-08-18] MEDS: Lidocaine 4 % Patch ADH..PATCH 1 PATCH TRANSDERMA (10:25)
[2023-08-18] MEDS: Nystatin Powder 15 GM BOTTLE 1 APPL TOPICAL ×2 (10:25→20:33)
[2023-08-18] MEDS: Hydrocortisone 1 % Cream 28.35 GM TUBE 1 APPL TOPICAL (10:25)
[2023-08-18 11:32] LABS: Glucose, Whole Blood 198 mg/dL (60-115)
[2023-08-18 11:37] VITALS: BP 111/56; PULSE 126; RESP 18; TEMP 36.6; O2SAT 96
[2023-08-18] MEDS: Insulin Lispro 100 UNIT/ML 3 ML VIAL SUBCUT (12:30)
--- NOTE | 2023-08-18 15:34 | W.PM.DNNEP ---
Subjective Subjective Date of Service: 08/18/23 Principal diagnosis: Elevated troponins This patient was seen during dialysis. Interval history: seen and examined this morning during dialysis follow up for renal failure good appetite not motivated to get oob Physical Exam Vital Signs: Vital Signs: Last Vital Signs Temp 97.8 F 08/18/23 11:37 Pulse 126 H 08/18/23 11:37 Resp 18 08/18/23 11:37 BP 111/56 L 08/18/23 11:37 Pulse Ox 96 08/18/23 11:37 O2 Del Method Room Air 08/18/23 11:37 O2 Flow Rate 2 07/26/23 11:35 BMI result Body Mass Index 49.2 Const: Other: Constitutional : Awake, morbidly obese, frail looking, not in distress Neck : Normal inspection, Supple Cardiovascular : RRR, no JVP, bilateral lower extremity edema Respiratory : good bilateral air entry, no crackles, no wheezes or rhonchi Gastrointestinal: soft, lax, Non tender Skin : Warm, Dry, Permacath in place Neurological : Alert & oriented, No focal deficit Assessment & Plan Assessment and plan (1) Acute renal failure: Status: Acute Plan CHITO and severe hyperkalemia due to rhabdomyolysis. He has tubular injury due to rhabdomyolysis. Hyperkalemia At this point he has no signs of renal recovery yet. Watch urine output HD 3 times a week On schedule for dialysis - MWF Rash: Allergic Permcath exit site is clean He has an outpatient dialysis spot at [facility]. Time Spent With Patient Time: Total time managing care of this patient today ____ minutes. Procedures Date of Service Date of Service: 08/18/23
[2023-08-18 16:00] VITALS: BP 86/58; PULSE 115; RESP 16; TEMP 36.9; O2SAT 97
[2023-08-18 16:27] LABS: Glucose, Whole Blood 105 mg/dL (60-115)
[2023-08-18 19:48] VITALS: BP 100/60; PULSE 115; RESP 15; TEMP 36.9; O2SAT 95
[2023-08-18 20:08] LABS: Glucose, Whole Blood 106 mg/dL (60-115)
[2023-08-18] MEDS: traZODone HCL 50 MG TABLET PO (20:32)
[2023-08-19] VITALS: BP 113/74; PULSE 114; RESP 20; TEMP 36.7; O2SAT 96
[2023-08-19 07:17] LABS: Glucose, Whole Blood 107 mg/dL (60-115)
[2023-08-19 08:00] VITALS: BP 104/64; PULSE 113; RESP 20; TEMP 36.6; O2SAT 95
[2023-08-19] MEDS: Lidocaine 4 % Patch ADH..PATCH 1 PATCH TRANSDERMA (08:59)
[2023-08-19] MEDS: Acetaminophen 325 MG TABLET 650 MG PO ×2 (09:00→22:12)
[2023-08-19] MEDS: ARIPiprazole 5 MG TABLET PO (09:00)
[2023-08-19] MEDS: Gabapentin 100 MG CAPSULE PO ×2 (09:00→22:11)
[2023-08-19] MEDS: Fluticasone Propionate Nasal 16 GM SPRAY 2 SPRAY NOSTRIL-B (09:01)
[2023-08-19] MEDS: Nystatin Powder 15 GM BOTTLE 1 APPL TOPICAL ×2 (09:02→22:11)
[2023-08-19] MEDS: Heparin Sodium,Porcine 5,000 UNIT/ML VIAL 5000 UNIT SUBCUT ×3 (09:02→22:11)
[2023-08-19] MEDS: Hydrocortisone 1 % Cream 28.35 GM TUBE 1 APPL TOPICAL (09:02)
[2023-08-19] MEDS: Mineral Oil/Petrolatum,White 106 GM Tube 1 APPL TOPICAL ×2 (09:03→22:11)
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
[2023-08-19 11:37] LABS: Glucose, Whole Blood 106 mg/dL (60-115)
[2023-08-19 11:54] VITALS: BP 107/72; PULSE 105; RESP 20; TEMP 36.8; O2SAT 93
[2023-08-19 16:00] VITALS: BP 96/62; PULSE 88; RESP 20; TEMP 36.1; O2SAT 96
[2023-08-19 16:37] LABS: Glucose, Whole Blood 120 mg/dL (60-115)
[2023-08-19 20:00] VITALS: BP 99/58; PULSE 95; RESP 18; TEMP 36.8; O2SAT 96
[2023-08-19 21:22] LABS: Glucose, Whole Blood 95 mg/dL (60-115)
[2023-08-19] MEDS: traZODone HCL 50 MG TABLET PO (22:11)
[2023-08-20] VITALS: BP 94/51; PULSE 110; RESP 20; TEMP 36.1; O2SAT 94
[2023-08-20 07:28] LABS: Glucose, Whole Blood 102 mg/dL (60-115)
[2023-08-20 08:00] VITALS: BP 97/65; PULSE 105; RESP 20; TEMP 36.3; O2SAT 93
--- NOTE | 2023-08-20 10:34 | MHC.CM.PN ---
PT is working with Patient with goal of improving mobility and Patient possibly being appropriate for STR. No LTC bed offers as of yet. CM will follow.
--- NOTE | 2023-08-20 11:45 | P.PNIM_ITS ---
Subjective Subjective Date of Service: 08/20/23 Interval History: seen and examined reports no new complaints Review of Systems Negative except HPI/interval history. Physical Exam 2 Vital Signs: Vital Signs: Last Vital Signs Temp 97.4 F 08/20/23 08:00 Pulse 105 H 08/20/23 08:00 Resp 20 08/20/23 08:00 BP 97/65 08/20/23 08:00 Pulse Ox 93 08/20/23 08:00 O2 Del Method Room Air 08/20/23 08:00 O2 Flow Rate 2 07/26/23 11:35 BMI result Body Mass Index 49.2 Const: Other: Constitutional : Awake, morbidly obese, frail looking, not in distress Neck : Normal inspection, Supple Cardiovascular : RRR, no JVP, bilateral lower extremity edema Respiratory : good bilateral air entry, no crackles, no wheezes or rhonchi Gastrointestinal: soft, lax, Non tender Skin : Warm, Dry, Permacath in place Neurological : Alert & oriented, No focal deficit Objective Data Active Medications Acetaminophen (Acetaminophen 325 Mg Tablet) 650 mg PO Q4H PRN PRN Reason: Pain, Moderate(Pain Scale 4-6) Last Admin: 08/19/23 22:12 Dose: 650 mg Documented By: FRANK Aripiprazole (Aripiprazole 5 Mg Tablet) 5 mg PO DAILY [facility] Last Admin: 08/19/23 09:00 Dose: 5 mg Documented By: NANCY Fluticasone Propionate (Fluticasone Propionate Nasal 16 Gm [place]) 2 spray NOSTRIL-B DAILY [facility] Last Admin: 08/19/23 09:01 Dose: 2 spray Documented By: NANCY Gabapentin (Gabapentin 100 Mg Capsule) 100 mg PO BID [facility] Last Admin: 08/19/23 22:11 Dose: 100 mg Documented By: FRANK Heparin Sodium (Porcine) (Heparin Sodium,Porcine 5,000 Unit/Ml Vial) 5,000 unit SUBCUT TID [facility] Last Admin: 08/19/23 22:11 Dose: 5,000 unit Documented By: FRANK Hydrocortisone (Hydrocortisone 1 % Cream 28.35 Gm Tube) 1 appl TOPICAL DAILY [facility]; Protocol Last Admin: 08/19/23 09:02 Dose: 1 appl Documented By: NANCY Dextrose (D10) 250 mls @ 750 mls/hr IV Q15M PRN PRN Reason: per Hypoglycemia Standing Ord. Insulin Human Lispro (Insulin Lispro 100 Unit/Ml 3 Ml Vial) 0 unit SUBCUT QIDACHS [facility]; Protocol Last Admin: 08/20/23 10:36 Dose: Not Given Documented By: NANCY Non-Admin Reason: No Insulin Coverage Lidocaine (Lidocaine 4 % Patch Adh..Patch) 1 patch TRANSDERMA DAILY [facility] Last Admin: 08/19/23 08:59 Dose: 1 patch Documented By: NANCY Multi-Ingred Cream/Lotion/Oil/Oint (Mineral Oil/Petrolatum,White 106 Gm Tube) 1 appl TOPICAL BID [facility]; Protocol Last Admin: 08/19/23 22:11 Dose: 1 appl Documented By: FRANK Nystatin (Nystatin Powder 15 Gm Bottle) 1 appl TOPICAL BID [facility]; Protocol Last Admin: 08/19/23 22:11 Dose: 1 appl Documented By: FRANK Ondansetron HCl (Ondansetron Odt 4 Mg Tab.Rapdis) 4 mg TRANSLINGU Q6H PRN PRN Reason: Nausea and Vomiting Trazodone HCl (Trazodone Hcl 50 Mg Tablet) 50 mg PO BEDTIME [facility] Last Admin: 08/19/23 22:11 Dose: 50 mg Documented By: FRANK Labs 08/14/23 13:21 08/18/23 08:01 Labs: Laboratory Results - last 24 hr 08/19/23 08/19/23 08/20/23 16:30 21:00 07:20 POC Glucose 120 H 95 102 Assessment and Plan (1) Need for acute hemodialysis: Status: Acute Plan 53 years old male with PMH of DM2, HTN, Asthma who presented to ED After sustaining a fall and laying on the floor for 9 hours found to have severe acute kidney injury from rhabdomyolysis and hyperkalemia Leg and back pain chronic continue gabapentin on going PT treatment Depression. unspecified lack of motivation to ambulate or even get oob Restarted abilify and trazodone x 4 days now without significant improvement will consult psychiatry continue to encourage participation in PT Rash improving around port, neck and b/l arms in areas of previous adhesive likely reaction to adhesive no cellulitis, no infection supportive care, try alternative adhesive topical steroid cream CHITO and severe hyperkalemia and acute metabolic acidosis due to ATN from rhabdomyolysis and no renal recovery and started on HD, TTS, permacath placed 07/16/23. awaiting set up of rehab with HD Continue dialysis sessions per nephrology MWF Has outpatient dialysis spot at [place] dialysis upon discharge Hypotension. Resolved post dialysis, not due to sepsis Midodrine days of dialysis as needed Sinus tachycardia Seems persistent since admission, no hypoxia Echocardiogram with preserved EF, TSH wnl, has been on dvt pptx - so low suspicion for PE likely related to deconditioning Physical deconditioning will need to increase physical activity PT following Oob to chair and ambulating daily Acute?Rhabdomyolysis 2/2 fall and long stay on floor no evidence of compartment syndrome at any point Elevated troponin on admission outpatient ischemic work up per cardiology team Acute lactic acidosis, resolved in the setting of rhabdo and renal failure not due to severe sepsis chest pain resolved negative work up hx of substance abuse off suboxone since admission Diabetes ss, ada diet Morbid Obesity. BMI 49.2 Discussed importance of weight management as this may be contributing to worsening of other comorbidities DVT PPx Heparin intermittently refuses vitals, lab draws etc reason for continued hospitalization: debilitated / depressed, safe discharge Quality Stroke Does the patient have a stroke diagnosis?: No VTE Prior VTE?: No VTE Risk Level:: Medical - moderate - high VTE Device Contraindication: N/A - Device Ordered VTE Drug Contraindication: N/A - Med Ordered
--- NOTE | 2023-08-20 12:13 | W.PM.DNNEP ---
Subjective Subjective Date of Service: 08/20/23 Principal diagnosis: Elevated troponins This patient was seen during dialysis. Interval history: seen and examined reports no new complaints Physical Exam Vital Signs: Vital Signs: Last Vital Signs Temp 97.4 F 08/20/23 08:00 Pulse 105 H 08/20/23 08:00 Resp 20 08/20/23 08:00 BP 97/65 08/20/23 08:00 Pulse Ox 93 08/20/23 08:00 O2 Del Method Room Air 08/20/23 08:00 O2 Flow Rate 2 07/26/23 11:35 BMI result Body Mass Index 49.2 Const: Other: Constitutional : Awake, morbidly obese, frail looking, not in distress Neck : Normal inspection, Supple Cardiovascular : RRR, no JVP, bilateral lower extremity edema Respiratory : good bilateral air entry, no crackles, no wheezes or rhonchi Gastrointestinal: soft, lax, Non tender Skin : Warm, Dry, Permacath in place Neurological : Alert & oriented, No focal deficit Assessment & Plan Assessment and plan (1) Acute renal failure: Status: Acute Plan CHITO and severe hyperkalemia due to rhabdomyolysis. He has tubular injury due to rhabdomyolysis. Hyperkalemia At this point he has no signs of renal recovery yet. Watch urine output HD 3 times a week On schedule for dialysis - MWF Rash: Allergic- resolve Permcath exit site is clean He has an outpatient dialysis spot at [facility]. Time Spent With Patient Time: Total time managing care of this patient today ____ minutes. Procedures Date of Service Date of Service: 08/20/23
[2023-08-20 13:14] VITALS: BP 102/60; PULSE 64; RESP 17; TEMP 36.8; O2SAT 96
[2023-08-20 13:17] LABS: Glucose, Whole Blood 164 mg/dL (60-115)
[2023-08-20] MEDS: Fluticasone Propionate Nasal 16 GM SPRAY 2 SPRAY NOSTRIL-B (13:24)
[2023-08-20] MEDS: Gabapentin 100 MG CAPSULE PO ×2 (13:24→22:14)
[2023-08-20] MEDS: ARIPiprazole 5 MG TABLET PO (13:24)
[2023-08-20] MEDS: Lidocaine 4 % Patch ADH..PATCH 1 PATCH TRANSDERMA (13:26)
[2023-08-20] MEDS: Mineral Oil/Petrolatum,White 106 GM Tube 1 APPL TOPICAL ×2 (13:26→22:15)
[2023-08-20] MEDS: Hydrocortisone 1 % Cream 28.35 GM TUBE 1 APPL TOPICAL (13:26)
[2023-08-20] MEDS: Nystatin Powder 15 GM BOTTLE 1 APPL TOPICAL ×2 (13:26→22:16)
[2023-08-20] MEDS: Heparin Sodium,Porcine 5,000 UNIT/ML VIAL 5000 UNIT SUBCUT ×2 (15:22→22:15)
[2023-08-20 16:22] LABS: Glucose, Whole Blood 118 mg/dL (60-115)
[2023-08-20] MEDS: Acetaminophen 325 MG TABLET 650 MG PO ×2 (17:27→22:19)
[2023-08-20] MEDS: Lactulose 20 GM/30 ML SOLUTION PO (18:29)
[2023-08-20] MEDS: polyethylene glycoL 3350 17 GM POWD.PACK PO (18:29)
[2023-08-20 20:20] VITALS: BP 98/59; PULSE 110; RESP 18; TEMP 36.7; O2SAT 96
[2023-08-20 21:23] LABS: Glucose, Whole Blood 133 mg/dL (60-115)
[2023-08-20] MEDS: traZODone HCL 50 MG TABLET PO (22:14)
[2023-08-20 23:41] VITALS: BP 99/54; PULSE 102; RESP 18; TEMP 36.6; O2SAT 95
[2023-08-21 08:00] VITALS: BP 97/70; PULSE 100; RESP 18; TEMP 36.4
[2023-08-21 08:00] LABS: Glucose, Whole Blood 97 mg/dL (60-115)
[2023-08-21] MEDS: ARIPiprazole 5 MG TABLET PO (09:14)
[2023-08-21] MEDS: Heparin Sodium,Porcine 5,000 UNIT/ML VIAL 5000 UNIT SUBCUT ×2 (09:14→15:35)
[2023-08-21] MEDS: Gabapentin 100 MG CAPSULE PO ×2 (09:14→22:31)
[2023-08-21] MEDS: Nystatin Powder 15 GM BOTTLE 1 APPL TOPICAL ×2 (09:15→22:32)
[2023-08-21] MEDS: Lidocaine 4 % Patch ADH..PATCH 1 PATCH TRANSDERMA (09:15)
[2023-08-21] MEDS: polyethylene glycoL 3350 17 GM POWD.PACK PO (09:15)
[2023-08-21] MEDS: Mineral Oil/Petrolatum,White 106 GM Tube 1 APPL TOPICAL ×2 (09:16→22:31)
[2023-08-21] MEDS: Fluticasone Propionate Nasal 16 GM SPRAY 2 SPRAY NOSTRIL-B (09:16)
[2023-08-21] MEDS: Hydrocortisone 1 % Cream 28.35 GM TUBE 1 APPL TOPICAL (09:16)
[2023-08-21 11:19] LABS: Glucose, Whole Blood 110 mg/dL (60-115)
--- NOTE | 2023-08-21 11:27 | P.PNIM_ITS ---
Subjective Subjective Date of Service: 08/21/23 Interval History: seen and examined states he attempted to ambulate yesterday but was too weak Review of Systems Negative except HPI/interval history. Physical Exam 2 Vital Signs: Vital Signs: Last Vital Signs Temp 97.6 F 08/21/23 08:00 Pulse 100 08/21/23 08:00 Resp 18 08/21/23 08:00 BP 97/70 08/21/23 08:00 Pulse Ox 95 08/20/23 23:41 O2 Del Method Room Air 08/21/23 08:00 O2 Flow Rate 2 07/26/23 11:35 BMI result Body Mass Index 49.2 Const: Other: Constitutional : Awake, morbidly obese, frail looking, not in distress Neck : Normal inspection, Supple Cardiovascular : RRR, no JVP, bilateral lower extremity edema Respiratory : good bilateral air entry, no crackles, no wheezes or rhonchi Gastrointestinal: soft, lax, Non tender Skin : Warm, Dry, Permacath in place Neurological : Alert & oriented, No focal deficit Objective Data Active Medications Acetaminophen (Acetaminophen 325 Mg Tablet) 650 mg PO Q4H PRN PRN Reason: Pain, Moderate(Pain Scale 4-6) Last Admin: 08/20/23 22:19 Dose: 650 mg Documented By: CUCA Aripiprazole (Aripiprazole 5 Mg Tablet) 5 mg PO DAILY [facility] Last Admin: 08/21/23 09:14 Dose: 5 mg Documented By: SALLYMORP Fluticasone Propionate (Fluticasone Propionate Nasal 16 Gm [place]) 2 spray NOSTRIL-B DAILY [facility] Last Admin: 08/21/23 09:16 Dose: 2 spray Documented By: PODMORP Gabapentin (Gabapentin 100 Mg Capsule) 100 mg PO BID [facility] Last Admin: 08/21/23 09:14 Dose: 100 mg Documented By: SALLYMORP Heparin Sodium (Porcine) (Heparin Sodium,Porcine 5,000 Unit/Ml Vial) 5,000 unit SUBCUT TID [facility] Last Admin: 08/21/23 09:14 Dose: 5,000 unit Documented By: SALLYMORP Hydrocortisone (Hydrocortisone 1 % Cream 28.35 Gm Tube) 1 appl TOPICAL DAILY [facility]; Protocol Last Admin: 08/21/23 09:16 Dose: 1 appl Documented By: SALLYMORP Dextrose (D10) 250 mls @ 750 mls/hr IV Q15M PRN PRN Reason: per Hypoglycemia Standing Ord. Insulin Human Lispro (Insulin Lispro 100 Unit/Ml 3 Ml Vial) 0 unit SUBCUT QIDACHS [facility]; Protocol Last Admin: 08/21/23 07:58 Dose: Not Given Documented By: MARK Non-Admin Reason: No Insulin Coverage Lidocaine (Lidocaine 4 % Patch Adh..Patch) 1 patch TRANSDERMA DAILY [facility] Last Admin: 08/21/23 09:15 Dose: 1 patch Documented By: MARK Multi-Ingred Cream/Lotion/Oil/Oint (Mineral Oil/Petrolatum,White 106 Gm Tube) 1 appl TOPICAL BID [facility]; Protocol Last Admin: 08/21/23 09:16 Dose: 1 appl Documented By: MARK Nystatin (Nystatin Powder 15 Gm Bottle) 1 appl TOPICAL BID [facility]; Protocol Last Admin: 08/21/23 09:15 Dose: 1 appl Documented By: SALLYMORP Ondansetron HCl (Ondansetron Odt 4 Mg Tab.Rapdis) 4 mg TRANSLINGU Q6H PRN PRN Reason: Nausea and Vomiting Polyethylene Glycol (Polyethylene Glycol 3350 17 Gm Powd.Pack) 17 gm PO DAILY [facility] Last Admin: 08/21/23 09:15 Dose: 17 gm Documented By: SALLYMORP Trazodone HCl (Trazodone Hcl 50 Mg Tablet) 50 mg PO BEDTIME [facility] Last Admin: 08/20/23 22:14 Dose: 50 mg Documented By: JOHNATHONSU Labs 08/14/23 13:21 08/18/23 08:01 Labs: Laboratory Results - last 24 hr 08/20/23 08/20/23 08/20/23 13:12 16:01 20:44 POC Glucose 164 H 118 H 133 H 08/21/23 08/21/23 07:56 11:10 POC Glucose 97 110 Assessment and Plan (1) Need for acute hemodialysis: Status: Acute Plan 53 years old male with PMH of DM2, HTN, Asthma who presented to ED After sustaining a fall and laying on the floor for 9 hours found to have severe acute kidney injury from rhabdomyolysis and hyperkalemia Patient continues to have decreased motivation in participating in PT, citing on going weakness -- explained to him that in order to get stronger, he will have to participate in therapy await psych input to see if his underlying mood order is playing a role in his motivation and to see if meds can be adjusted Leg and back pain chronic continue gabapentin on going PT treatment Depression. unspecified lack of motivation to ambulate or even get oob Restarted abilify and trazodone x 4 days now without significant improvement will consult psychiatry continue to encourage participation in PT Rash improving around port, neck and b/l arms in areas of previous adhesive likely reaction to adhesive no cellulitis, no infection supportive care, try alternative adhesive topical steroid cream CHITO and severe hyperkalemia and acute metabolic acidosis due to ATN from rhabdomyolysis and no renal recovery and started on HD, TTS, permacath placed 07/16/23. awaiting set up of rehab with HD Continue dialysis sessions per nephrology MWF Has outpatient dialysis spot at [place] [facility] upon discharge Hypotension. Resolved post dialysis, not due to sepsis Midodrine days of dialysis as needed Sinus tachycardia Seems persistent since admission, no hypoxia Echocardiogram with preserved EF, TSH wnl, has been on dvt pptx - so low suspicion for PE likely related to deconditioning Physical deconditioning will need to increase physical activity PT following Oob to chair and ambulating daily Acute?Rhabdomyolysis 2/2 fall and long stay on floor no evidence of compartment syndrome at any point Elevated troponin on admission outpatient ischemic work up per cardiology team Acute lactic acidosis, resolved in the setting of rhabdo and renal failure not due to severe sepsis chest pain resolved negative work up hx of substance abuse off suboxone since admission Diabetes ss, ada diet Morbid Obesity. BMI 49.2 Discussed importance of weight management as this may be contributing to worsening of other comorbidities DVT PPx Heparin intermittently refuses vitals, lab draws etc reason for continued hospitalization: debilitated / depressed, safe discharge Quality Stroke Does the patient have a stroke diagnosis?: No VTE Prior VTE?: No VTE Risk Level:: Medical - moderate - high VTE Device Contraindication: N/A - Device Ordered VTE Drug Contraindication: N/A - Med Ordered
[2023-08-21 16:00] VITALS: BP 104/56; PULSE 82; RESP 18; TEMP 37; O2SAT 95
[2023-08-21 16:29] LABS: Glucose, Whole Blood 115 mg/dL (60-115)
[2023-08-21 20:50] VITALS: BP 133/78
[2023-08-21 21:13] LABS: Glucose, Whole Blood 107 mg/dL (60-115)
[2023-08-21] MEDS: traZODone HCL 50 MG TABLET PO (22:32)
--- NOTE | 2023-08-21 22:47 | PC.NURSE ---
2225: Pt. received 60mg IV push lasix as ordered by Dr. Sullivan, F/C emptied for 1000ml urine. Per Dr. Sullivan, no coverage at this time for POC 201. lasix drip at 10mg/hr infusing. Pt. trasnferred to ICU by RN supervisor [employer] and sales floor team member. Telephone report to Briana SARMIENTO in ICU.
[2023-08-21 23:30] VITALS: BP 103/59; PULSE 88; RESP 18; TEMP 36.1; O2SAT 95
[2023-08-22 07:54] LABS: Glucose, Whole Blood 92 mg/dL (60-115)
[2023-08-22 08:00] VITALS: BP 83/68; PULSE 99; RESP 18; TEMP 36.6; O2SAT 94
[2023-08-22] MEDS: ARIPiprazole 5 MG TABLET PO (09:19)
[2023-08-22] MEDS: Gabapentin 100 MG CAPSULE PO ×2 (09:20→20:51)
[2023-08-22] MEDS: polyethylene glycoL 3350 17 GM POWD.PACK PO (09:20)
[2023-08-22] MEDS: Lidocaine 4 % Patch ADH..PATCH 1 PATCH TRANSDERMA (09:20)
[2023-08-22] MEDS: Nystatin Powder 15 GM BOTTLE 1 APPL TOPICAL ×2 (09:20→20:57)
[2023-08-22] MEDS: Mineral Oil/Petrolatum,White 106 GM Tube 1 APPL TOPICAL ×2 (09:20→20:56)
[2023-08-22] MEDS: Fluticasone Propionate Nasal 16 GM SPRAY 2 SPRAY NOSTRIL-B (09:21)
[2023-08-22] MEDS: Hydrocortisone 1 % Cream 28.35 GM TUBE 1 APPL TOPICAL (09:21)
[2023-08-22] MEDS: Heparin Sodium,Porcine 5,000 UNIT/ML VIAL 5000 UNIT SUBCUT ×3 (09:24→20:52)
--- NOTE | 2023-08-22 10:40 | HO.PM.IMPN ---
Subjective Subjective Date of Service: 08/22/23 Interval History: seen and examined this AM denies any complaints still not participating much Physical Exam Vital Signs: Vital Signs: Last Vital Signs Temp 97.8 F 08/22/23 08:00 Pulse 99 08/22/23 08:00 Resp 18 08/22/23 08:00 BP 83/68 L 08/22/23 08:00 Pulse Ox 94 08/22/23 08:00 O2 Del Method Room Air 08/22/23 08:00 O2 Flow Rate 2 07/26/23 11:35 BMI result Body Mass Index 49.2 Const: Other: General - no acute distress, appears comfortable Cardiovascular - regular rate and rhythm, S1-S2 Lungs - normal respiratory effort, clear to auscultation bilaterally, no wheezing Abdomen - soft, nontender, no rebound or guarding Extremities - no edema bilaterally Neuro - awake and alert, no focal deficits Objective Data Active Medications Acetaminophen (Acetaminophen 325 Mg Tablet) 650 mg PO Q4H PRN PRN Reason: Pain, Moderate(Pain Scale 4-6) Last Admin: 08/20/23 22:19 Dose: 650 mg Documented By: CUCA Aripiprazole (Aripiprazole 5 Mg Tablet) 5 mg PO DAILY [facility] Last Admin: 08/22/23 09:19 Dose: 5 mg Documented By: MARIYA Fluticasone Propionate (Fluticasone Propionate Nasal 16 Gm [place]) 2 spray NOSTRIL-B DAILY [facility] Last Admin: 08/22/23 09:21 Dose: 2 spray Documented By: MARIYA Gabapentin (Gabapentin 100 Mg Capsule) 100 mg PO BID [facility] Last Admin: 08/22/23 09:20 Dose: 100 mg Documented By: MARIYA Heparin Sodium (Porcine) (Heparin Sodium,Porcine 5,000 Unit/Ml Vial) 5,000 unit SUBCUT TID [facility] Last Admin: 08/22/23 09:24 Dose: 5,000 unit Documented By: MARIYA Hydrocortisone (Hydrocortisone 1 % Cream 28.35 Gm Tube) 1 appl TOPICAL DAILY [facility]; Protocol Last Admin: 08/22/23 09:21 Dose: 1 appl Documented By: MARIYA Dextrose (D10) 250 mls @ 750 mls/hr IV Q15M PRN PRN Reason: per Hypoglycemia Standing Ord. Insulin Human Lispro (Insulin Lispro 100 Unit/Ml 3 Ml Vial) 0 unit SUBCUT QIDACHS [facility]; Protocol Last Admin: 08/22/23 07:55 Dose: Not Given Documented By: MARIYA Non-Admin Reason: No Insulin Coverage Lidocaine (Lidocaine 4 % Patch Adh..Patch) 1 patch TRANSDERMA DAILY [facility] Last Admin: 08/22/23 09:20 Dose: 1 patch Documented By: MARIYA Multi-Ingred Cream/Lotion/Oil/Oint (Mineral Oil/Petrolatum,White 106 Gm Tube) 1 appl TOPICAL BID [facility]; Protocol Last Admin: 08/22/23 09:20 Dose: 1 appl Documented By: MARIYA Nystatin (Nystatin Powder 15 Gm Bottle) 1 appl TOPICAL BID [facility]; Protocol Last Admin: 08/22/23 09:20 Dose: 1 appl Documented By: MARIYA Ondansetron HCl (Ondansetron Odt 4 Mg Tab.Rapdis) 4 mg TRANSLINGU Q6H PRN PRN Reason: Nausea and Vomiting Polyethylene Glycol (Polyethylene Glycol 3350 17 Gm Powd.Pack) 17 gm PO DAILY [facility] Last Admin: 08/22/23 09:20 Dose: 17 gm Documented By: MARIYA Trazodone HCl (Trazodone Hcl 50 Mg Tablet) 50 mg PO BEDTIME [facility] Last Admin: 08/21/23 22:32 Dose: 50 mg Documented By: CUCA Labs 08/14/23 13:21 08/18/23 08:01 Labs: Laboratory Results - last 24 hr 08/21/23 08/21/23 08/21/23 11:10 16:22 20:39 POC Glucose 110 115 107 08/22/23 07:46 POC Glucose 92 Assessment and Plan (1) Need for acute hemodialysis: Status: Acute Plan 53 years old male with PMH of DM2, HTN, Asthma who presented to ED After sustaining a fall and laying on the floor for 9 hours found to have severe acute kidney injury from rhabdomyolysis and hyperkalemia Patient continues to have decreased motivation in participating in PT, citing on going weakness -- explained to him that in order to get stronger, he will have to participate in therapy await psych input to see if his underlying mood order is playing a role in his motivation and to see if meds can be adjusted psych consult pending will repeat labs tomorrow AM Leg and back pain chronic continue gabapentin on going PT treatment Depression. unspecified lack of motivation to ambulate or even get oob Restarted abilify and trazodone x 4 days now without significant improvement will consult psychiatry continue to encourage participation in PT Rash improving around port, neck and b/l arms in areas of previous adhesive likely reaction to adhesive no cellulitis, no infection supportive care, try alternative adhesive topical steroid cream CHITO and severe hyperkalemia and acute metabolic acidosis due to ATN from rhabdomyolysis and no renal recovery and started on HD, TTS, permacath placed 07/16/23. awaiting set up of rehab with HD Continue dialysis sessions per nephrology MWF Has outpatient dialysis spot at [facility] upon discharge Hypotension. Resolved post dialysis, not due to sepsis Midodrine days of dialysis as needed Sinus tachycardia Seems persistent since admission, no hypoxia Echocardiogram with preserved EF, TSH wnl, has been on dvt pptx - so low suspicion for PE likely related to deconditioning Physical deconditioning will need to increase physical activity PT following Oob to chair and ambulating daily Acute?Rhabdomyolysis 2/2 fall and long stay on floor no evidence of compartment syndrome at any point Elevated troponin on admission outpatient ischemic work up per cardiology team Acute lactic acidosis, resolved in the setting of rhabdo and renal failure not due to severe sepsis chest pain resolved negative work up hx of substance abuse off suboxone since admission Diabetes ss, ada diet Morbid Obesity. BMI 49.2 Discussed importance of weight management as this may be contributing to worsening of other comorbidities DVT PPx Heparin intermittently refuses vitals, lab draws etc reason for continued hospitalization: debilitated / depressed, safe discharge Quality Stroke Does the patient have a stroke diagnosis?: No VTE Prior VTE?: No VTE Risk Level:: Medical - moderate - high VTE Device Contraindication: N/A - Device Ordered VTE Drug Contraindication: N/A - Med Ordered
[2023-08-22 11:31] LABS: Glucose, Whole Blood 115 mg/dL (60-115)
[2023-08-22 15:57] VITALS: BP 109/59; PULSE 100; RESP 18; TEMP 36.4; O2SAT 94
[2023-08-22 16:38] LABS: Glucose, Whole Blood 117 mg/dL (60-115)
[2023-08-22] MEDS: traZODone HCL 50 MG TABLET PO (20:52)
[2023-08-22 20:58] LABS: Glucose, Whole Blood 113 mg/dL (60-115)
[2023-08-22 23:59] VITALS: BP 90/58; PULSE 89; RESP 18; TEMP 36.6; O2SAT 95
[2023-08-23 07:07] LABS: Hematocrit 30.4 % (42.0-52.0); Hemoglobin 9.8 g/dl (14.0-18.0); Mean Corpuscular HGB Conc 32.2 g/dl (31.0-36.0); Mean Corpuscular Hemoglobin 29.3 pg (27.0-33.0); Mean Corpuscular Volume 90.7 fL (80.0-98.0); Mean Platelet Volume 8.6 fL (9.4-12.4); Platelet Count 297 X10*3/uL (160-400); Red Blood Count 3.35 X10*6/uL (4.60-5.80); Red Cell Distribution Width 13.1 % (11.0-16.0); White Blood Count 8.1 X10*3/uL (4.8-10.8)
[2023-08-23 07:22] LABS: Anion Gap 23 (12-20); Blood Urea Nitrogen 78 mg/dL (9-16); Calcium 9.9 mg/dL (8.4-10.2); Carbon Dioxide 16 mmol/L (22-29); Chloride 99 mmol/L (96-108); Glucose Random 101 mg/dL (60-115); Potassium 5.1 mmol/L (3.3-5.1); Sodium 133 mmol/L (135-145)
[2023-08-23 07:27] LABS: Creatinine Clr Calc Pharmacy 10.6; Estimated Glomerular Filt Rate 5
[2023-08-23 07:39] LABS: Glucose, Whole Blood 89 mg/dL (60-115)
[2023-08-23 07:52] VITALS: BP 100/60; PULSE 93; RESP 17; TEMP 36.4; O2SAT 94
--- NOTE | 2023-08-23 10:53 | MHC.CM.PN ---
Continued encouragement given to Patient to participate with PT so that STR can be an appropriate goal. LTC SNF bed search has produced no bed offers. CM will follow.
--- NOTE | 2023-08-23 10:58 | HO.PM.IMPN ---
Subjective Subjective Date of Service: 08/23/23 Interval History: seen and examined this AM denies any complaints still not participating much Physical Exam Vital Signs: Vital Signs: Last Vital Signs Temp 97.5 F 08/23/23 07:52 Pulse 93 08/23/23 07:52 Resp 17 08/23/23 07:52 BP 100/60 08/23/23 07:52 Pulse Ox 94 08/23/23 07:52 O2 Del Method Room Air 08/23/23 07:52 O2 Flow Rate 2 07/26/23 11:35 BMI result Body Mass Index 49.2 Appearing in no acute distress lung sounds are clear to auscultation heart regular rate rhythm, clear S1, S2 positive bowel sounds, abdomen is soft, nontender neuro patient is alert x3, no focal deficits Objective Data Active Medications Acetaminophen (Acetaminophen 325 Mg Tablet) 650 mg PO Q4H PRN PRN Reason: Pain, Moderate(Pain Scale 4-6) Last Admin: 08/20/23 22:19 Dose: 650 mg Documented By: CUCA Aripiprazole (Aripiprazole 5 Mg Tablet) 5 mg PO DAILY [facility] Last Admin: 08/22/23 09:19 Dose: 5 mg Documented By: MARIYA Fluticasone Propionate (Fluticasone Propionate Nasal 16 Gm [place]) 2 spray NOSTRIL-B DAILY [facility] Last Admin: 08/22/23 09:21 Dose: 2 spray Documented By: MARIYA Gabapentin (Gabapentin 100 Mg Capsule) 100 mg PO BID [facility] Last Admin: 08/22/23 20:51 Dose: 100 mg Documented By: JAMIE Heparin Sodium (Porcine) (Heparin Sodium,Porcine 5,000 Unit/Ml Vial) 5,000 unit SUBCUT TID [facility] Last Admin: 08/22/23 20:52 Dose: 5,000 unit Documented By: JAMIE Hydrocortisone (Hydrocortisone 1 % Cream 28.35 Gm Tube) 1 appl TOPICAL DAILY [facility]; Protocol Last Admin: 08/22/23 09:21 Dose: 1 appl Documented By: MARIYA Dextrose (D10) 250 mls @ 750 mls/hr IV Q15M PRN PRN Reason: per Hypoglycemia Standing Ord. Insulin Human Lispro (Insulin Lispro 100 Unit/Ml 3 Ml Vial) 0 unit SUBCUT QIDACHS [facility]; Protocol Last Admin: 08/23/23 07:46 Dose: Not Given Documented By: LLUVIA Non-Admin Reason: No Insulin Coverage Lidocaine (Lidocaine 4 % Patch Adh..Patch) 1 patch TRANSDERMA DAILY [facility] Last Admin: 08/22/23 09:20 Dose: 1 patch Documented By: MARIYA Multi-Ingred Cream/Lotion/Oil/Oint (Mineral Oil/Petrolatum,White 106 Gm Tube) 1 appl TOPICAL BID [facility]; Protocol Last Admin: 08/22/23 20:56 Dose: 1 appl Documented By: JAMIE Nystatin (Nystatin Powder 15 Gm Bottle) 1 appl TOPICAL BID [facility]; Protocol Last Admin: 08/22/23 20:57 Dose: 1 appl Documented By: JAMIE Ondansetron HCl (Ondansetron Odt 4 Mg Tab.Rapdis) 4 mg TRANSLINGU Q6H PRN PRN Reason: Nausea and Vomiting Polyethylene Glycol (Polyethylene Glycol 3350 17 Gm Powd.Pack) 17 gm PO DAILY [facility] Last Admin: 08/22/23 09:20 Dose: 17 gm Documented By: MARIYA Trazodone HCl (Trazodone Hcl 50 Mg Tablet) 50 mg PO BEDTIME [facility] Last Admin: 08/22/23 20:52 Dose: 50 mg Documented By: JAMIE Labs 08/23/23 06:58 08/23/23 06:58 Labs: Laboratory Results - last 24 hr 08/22/23 08/22/23 08/22/23 11:26 16:19 20:55 MCV MCH MCHC RDW Plt Count MPV Absolute Nucleated RBC Nucleated RBC % (auto) Anion Gap Estim Creat Clear Calc Estimated GFR POC Glucose 115 117 H 113 Random Glucose Calcium 08/23/23 08/23/23 06:58 07:35 MCV 90.7 MCH 29.3 MCHC 32.2 RDW 13.1 Plt Count 297 MPV 8.6 L Absolute Nucleated RBC 0.000 Nucleated RBC % (auto) 0.0 Anion Gap 23 H Estim Creat Clear Calc 10.6 Estimated GFR 5 POC Glucose 89 Random Glucose 101 Calcium 9.9 Assessment and Plan (1) Need for acute hemodialysis: Status: Acute Plan 53 years old male with PMH of DM2, HTN, Asthma who presented to ED After sustaining a fall and laying on the floor for 9 hours found to have severe acute kidney injury from rhabdomyolysis and hyperkalemia Patient continues to have decreased motivation in participating in PT, citing on going weakness, explained to him that in order to get stronger, he will have to participate in therapy await psych input to see if his underlying mood order is playing a role in his motivation and to see if meds can be adjusted psych consult pending Leg and back pain chronic continue gabapentin on going PT treatment Depression. unspecified lack of motivation to ambulate or even get oob Restarted abilify and trazodone will consult psychiatry continue to encourage participation in PT Rash improving around port, neck and b/l arms in areas of previous adhesive likely reaction to adhesive no cellulitis, no infection supportive care, try alternative adhesive topical steroid cream CHITO and severe hyperkalemia and acute metabolic acidosis due to ATN from rhabdomyolysis and no renal recovery and started on HD, TTS, permacath placed 07/16/23. awaiting set up of rehab with HD Continue dialysis sessions per nephrology MWF Has outpatient dialysis spot at [facility] dialysis upon discharge Hypotension. Resolved post dialysis, not due to sepsis Midodrine days of dialysis as needed Sinus tachycardia Seems persistent since admission, no hypoxia Echocardiogram with preserved EF, TSH wnl, has been on dvt pptx - so low suspicion for PE likely related to deconditioning Physical deconditioning will need to increase physical activity PT following Oob to chair and ambulating daily Acute?Rhabdomyolysis 2/2 fall and long stay on floor. resolved no evidence of compartment syndrome at any point Elevated troponin on admission outpatient ischemic work up per cardiology team Acute lactic acidosis, resolved in the setting of rhabdo and renal failure not due to severe sepsis chest pain resolved negative work up hx of substance abuse off suboxone since admission Diabetes ss, ada diet Morbid Obesity. BMI 49.2 Discussed importance of weight management as this may be contributing to worsening of other comorbidities DVT PPx Heparin attending Dr. Johnson intermittently refuses vitals, lab draws etc reason for continued hospitalization: debilitated / depressed, safe discharge Quality Stroke Does the patient have a stroke diagnosis?: No VTE Prior VTE?: No VTE Risk Level:: Medical - moderate - high VTE Device Contraindication: N/A - Device Ordered VTE Drug Contraindication: N/A - Med Ordered
[2023-08-23 13:04] LABS: Glucose, Whole Blood 96 mg/dL (60-115)
[2023-08-23 13:22] VITALS: BP 168/82; PULSE 99; RESP 17; TEMP 36.4; O2SAT 96
[2023-08-23] MEDS: Lidocaine 4 % Patch ADH..PATCH 1 PATCH TRANSDERMA (13:28)
[2023-08-23] MEDS: polyethylene glycoL 3350 17 GM POWD.PACK PO (13:28)
[2023-08-23] MEDS: Heparin Sodium,Porcine 5,000 UNIT/ML VIAL 5000 UNIT SUBCUT ×3 (13:28→20:45)
[2023-08-23] MEDS: ARIPiprazole 5 MG TABLET PO (13:28)
[2023-08-23] MEDS: Gabapentin 100 MG CAPSULE PO ×2 (13:28→20:45)
[2023-08-23] MEDS: Fluticasone Propionate Nasal 16 GM SPRAY 2 SPRAY NOSTRIL-B (13:31)
[2023-08-23] MEDS: Hydrocortisone 1 % Cream 28.35 GM TUBE 1 APPL TOPICAL (13:32)
[2023-08-23] MEDS: Nystatin Powder 15 GM BOTTLE 1 APPL TOPICAL ×2 (13:32→20:47)
[2023-08-23] MEDS: Mineral Oil/Petrolatum,White 106 GM Tube 1 APPL TOPICAL ×2 (13:32→20:47)
[2023-08-23 15:49] VITALS: BP 96/68; PULSE 102; RESP 18; TEMP 36.3; O2SAT 97
[2023-08-23 16:25] LABS: Glucose, Whole Blood 119 mg/dL (60-115)
--- NOTE | 2023-08-23 19:09 | P.PNNP_ITS ---
Subjective Subjective Date of Service: 08/23/23 Principal diagnosis: Elevated troponins Interval history: seen and examined on HD. Denies any complaints; D/W HD RN Physical Exam 2 Vital Signs: Vital Signs: Last Vital Signs Temp 97.4 F 08/23/23 15:49 Pulse 102 H 08/23/23 15:49 Resp 18 08/23/23 15:49 BP 96/68 08/23/23 15:49 Pulse Ox 97 08/23/23 15:49 O2 Del Method Room Air 08/23/23 15:49 O2 Flow Rate 2 07/26/23 11:35 BMI result Body Mass Index 49.2 Const: General: comfortable Eyes: EOM: EOMs intact bilaterally Neck: Neck: Yes supple Resp: Auscultation: diminished lung sounds Cardio: Rate: regular rate GI: Palpation (GI): Soft to palpation Neuro: General: moves all extremities Objective Data Labs 08/23/23 06:58 08/23/23 06:58 Labs: Laboratory Results - last 24 hr 08/22/23 08/23/23 08/23/23 20:55 06:58 07:35 WBC 8.1 RBC 3.35 L Hgb 9.8 L Hct 30.4 L MCV 90.7 MCH 29.3 MCHC 32.2 RDW 13.1 Plt Count 297 MPV 8.6 L Absolute Nucleated RBC 0.000 Nucleated RBC % (auto) 0.0 Sodium 133 L Potassium 5.1 D Chloride 99 Carbon Dioxide 16 L Anion Gap 23 H BUN 78 H Creatinine 11.46 H* Estim Creat Clear Calc 10.6 Estimated GFR 5 POC Glucose 113 89 Random Glucose 101 Calcium 9.9 08/23/23 08/23/23 12:59 16:22 WBC RBC Hgb Hct MCV MCH MCHC RDW Plt Count MPV Absolute Nucleated RBC Nucleated RBC % (auto) Sodium Potassium Chloride Carbon Dioxide Anion Gap BUN Creatinine Estim Creat Clear Calc Estimated GFR POC Glucose 96 119 H Random Glucose Calcium Microbiology Microbiology Results: Microbiology 07/20/23 22:49 Blood - Venous Blood Culture - Final No growth after 5 days. 07/20/23 22:49 Blood - Venous Blood Culture - Final No growth after 5 days. 07/12/23 12:30 Blood - Venous Blood Culture - Final No growth after 5 days. 07/12/23 12:15 Blood - Venous Blood Culture - Final No growth after 5 days. 07/12/23 Unknown Urine Catheterized - Straight Catheter Urine Culture - Final No growth. 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
[2023-08-23 20:26] LABS: Glucose, Whole Blood 138 mg/dL (60-115)
[2023-08-23] MEDS: traZODone HCL 50 MG TABLET PO (20:45)
[2023-08-23 23:50] VITALS: BP 89/54; PULSE 101; RESP 18; TEMP 36.2; O2SAT 94
[2023-08-23 23:55] VITALS: BP 93/58
[2023-08-24] MEDS: Midodrine HCl 5 MG TABLET PO (00:14)
[2023-08-24 02:14] VITALS: BP 96/55
--- NOTE | 2023-08-24 02:45 | PC.NURSE ---
Assumed care of patient at 19:00. Pt seen on s4, continues awaiting LTC placement per notes review. Patient on HD M/W/F, last was during the day prior to assuming care (08/22) via right chest permacath. Pt noted to be hypotensive on vitals overnight, 89/54. Only symptoms reported by patient was complaint of being a little bit dizzy . Mentation maintained, neuros intact. BP improved to 93/58 when placed in Trendelenburg position, though patient was unable to tolerate this position due to discomfort and requested to sit back up after BP was obtained. Covering Dr. Carreno notified with 1x order for 5mg midodrine, given with improvement to 96/55. Pt denies further dizziness and is resting in bed at this time. Breathing is even and unlabored without distress. Pt voiding concentrated to light tea colored urine in infrequent but adequate amounts in urinal. Bed alarm on and safety measures in place. Please see MAR and shift assessments for full details.
[2023-08-24 03:10] VITALS: BP 95/57; PULSE 100; RESP 18; TEMP 36.6; O2SAT 92
[2023-08-24 07:34] LABS: Glucose, Whole Blood 98 mg/dL (60-115)
[2023-08-24 07:41] VITALS: BP 106/55; PULSE 94; RESP 16; TEMP 36.3; O2SAT 94
[2023-08-24] MEDS: Lidocaine 4 % Patch ADH..PATCH 1 PATCH TRANSDERMA (09:06)
[2023-08-24] MEDS: Gabapentin 100 MG CAPSULE PO ×2 (09:07→20:55)
[2023-08-24] MEDS: ARIPiprazole 5 MG TABLET PO (09:07)
[2023-08-24] MEDS: Heparin Sodium,Porcine 5,000 UNIT/ML VIAL 5000 UNIT SUBCUT ×3 (09:08→20:57)
[2023-08-24] MEDS: Fluticasone Propionate Nasal 16 GM SPRAY 2 SPRAY NOSTRIL-B (09:10)
[2023-08-24] MEDS: Nystatin Powder 15 GM BOTTLE 1 APPL TOPICAL ×2 (09:11→21:00)
[2023-08-24] MEDS: Mineral Oil/Petrolatum,White 106 GM Tube 1 APPL TOPICAL ×2 (09:11→21:00)
[2023-08-24] MEDS: Hydrocortisone 1 % Cream 28.35 GM TUBE 1 APPL TOPICAL (09:11)
--- NOTE | 2023-08-24 09:32 | P.PNIM_ITS ---
Subjective Subjective Date of Service: 08/24/23 Interval History: seen and examined this AM denies any complaints still not participating much, but continue to encourage Physical Exam 2 Vital Signs: Vital Signs: Last Vital Signs Temp 97.4 F 08/24/23 07:41 Pulse 94 08/24/23 07:41 Resp 16 08/24/23 07:41 BP 106/55 L 08/24/23 07:41 Pulse Ox 94 08/24/23 07:41 O2 Del Method Room Air 08/24/23 07:41 O2 Flow Rate 2 07/26/23 11:35 BMI result Body Mass Index 49.2 Appearing in no acute distress lung sounds are clear to auscultation heart regular rate rhythm, clear S1, S2 positive bowel sounds, abdomen is soft, nontender neuro patient is alert x3, no focal deficits Objective Data Active Medications Acetaminophen (Acetaminophen 325 Mg Tablet) 650 mg PO Q4H PRN PRN Reason: Pain, Moderate(Pain Scale 4-6) Last Admin: 08/20/23 22:19 Dose: 650 mg Documented By: CUCA Aripiprazole (Aripiprazole 5 Mg Tablet) 5 mg PO DAILY [facility] Last Admin: 08/24/23 09:07 Dose: 5 mg Documented By: LLUVIA Fluticasone Propionate (Fluticasone Propionate Nasal 16 Gm [place]) 2 spray NOSTRIL-B DAILY [facility] Last Admin: 08/24/23 09:10 Dose: 2 spray Documented By: LLUVIA Gabapentin (Gabapentin 100 Mg Capsule) 100 mg PO BID [facility] Last Admin: 08/24/23 09:07 Dose: 100 mg Documented By: LLUVIA Heparin Sodium (Porcine) (Heparin Sodium,Porcine 5,000 Unit/Ml Vial) 5,000 unit SUBCUT TID [facility] Last Admin: 08/24/23 09:08 Dose: 5,000 unit Documented By: LLUVIA Hydrocortisone (Hydrocortisone 1 % Cream 28.35 Gm Tube) 1 appl TOPICAL DAILY [facility]; Protocol Last Admin: 08/24/23 09:11 Dose: 1 appl Documented By: LLUVIA Dextrose (D10) 250 mls @ 750 mls/hr IV Q15M PRN PRN Reason: per Hypoglycemia Standing Ord. Insulin Human Lispro (Insulin Lispro 100 Unit/Ml 3 Ml Vial) 0 unit SUBCUT QIDACHS [facility]; Protocol Last Admin: 08/24/23 07:36 Dose: Not Given Documented By: LLUVIA Non-Admin Reason: No Insulin Coverage Lidocaine (Lidocaine 4 % Patch Adh..Patch) 1 patch TRANSDERMA DAILY [facility] Last Admin: 08/24/23 09:06 Dose: 1 patch Documented By: LLUVIA Multi-Ingred Cream/Lotion/Oil/Oint (Mineral Oil/Petrolatum,White 106 Gm Tube) 1 appl TOPICAL BID [facility]; Protocol Last Admin: 08/24/23 09:11 Dose: 1 appl Documented By: LLUVIA Nystatin (Nystatin Powder 15 Gm Bottle) 1 appl TOPICAL BID [facility]; Protocol Last Admin: 08/24/23 09:11 Dose: 1 appl Documented By: LLUVIA Ondansetron HCl (Ondansetron Odt 4 Mg Tab.Rapdis) 4 mg TRANSLINGU Q6H PRN PRN Reason: Nausea and Vomiting Polyethylene Glycol (Polyethylene Glycol 3350 17 Gm Powd.Pack) 17 gm PO DAILY [facility] Last Admin: 08/24/23 09:14 Dose: Not Given Documented By: LLUVIA Non-Admin Reason: Patient Refused Trazodone HCl (Trazodone Hcl 50 Mg Tablet) 50 mg PO BEDTIME [facility] Last Admin: 08/23/23 20:45 Dose: 50 mg Documented By: ANAT Labs 08/23/23 06:58 08/23/23 06:58 Labs: Laboratory Results - last 24 hr 08/23/23 08/23/23 08/23/23 12:59 16:22 20:22 POC Glucose 96 119 H 138 H 08/24/23 07:30 POC Glucose 98 Assessment and Plan (1) Need for acute hemodialysis: Status: Acute Plan 53 years old male with PMH of DM2, HTN, Asthma who presented to ED After sustaining a fall and laying on the floor for 9 hours found to have severe acute kidney injury from rhabdomyolysis and hyperkalemia Leg and back pain chronic continue gabapentin 100mg BID, consider titrating up on going PT treatment Depression. unspecified lack of motivation to ambulate or even get oob Restarted abilify and trazodone but still depressed psych consult still pending from 08/20/23 continue to encourage participation in PT Rash improving around port, neck and b/l arms in areas of previous adhesive likely reaction to adhesive no cellulitis, no infection supportive care, try alternative adhesive topical steroid cream CHITO and severe hyperkalemia and acute metabolic acidosis due to ATN from rhabdomyolysis and no renal recovery and started on HD, TTS, permacath placed 07/16/23. awaiting set up of rehab with HD Continue dialysis sessions per nephrology MWF Has outpatient dialysis spot at [facility] dialysis upon discharge Hypotension. Resolved post dialysis, not due to sepsis Midodrine days of dialysis as needed Sinus tachycardia Seems persistent since admission, no hypoxia Echocardiogram with preserved EF, TSH wnl, has been on dvt pptx - so low suspicion for PE likely related to deconditioning Physical deconditioning will need to increase physical activity PT following Oob to chair and ambulating daily Acute?Rhabdomyolysis 2/2 fall and long stay on floor. resolved no evidence of compartment syndrome at any point Elevated troponin on admission outpatient ischemic work up per cardiology team Acute lactic acidosis, resolved in the setting of rhabdo and renal failure not due to severe sepsis chest pain resolved negative work up hx of substance abuse off suboxone since admission Diabetes ss, ada diet Morbid Obesity. BMI 49.2 Discussed importance of weight management as this may be contributing to worsening of other comorbidities DVT PPx Heparin attending Dr. Johnson intermittently refuses vitals, lab draws etc reason for continued hospitalization: debilitated / depressed, safe discharge Quality Stroke Does the patient have a stroke diagnosis?: No VTE Prior VTE?: No VTE Risk Level:: Medical - moderate - high VTE Device Contraindication: N/A - Device Ordered VTE Drug Contraindication: N/A - Med Ordered
[2023-08-24 11:13] LABS: Glucose, Whole Blood 119 mg/dL (60-115)
--- NOTE | 2023-08-24 11:49 | PM.PSYCN ---
History of Present Illness Date of Service: 08/24/2023 Chief Complaint: Acute renal failure Requesting physician: Janis Nieto Discussed with referring provider: Yes Sources of Information: patient interviewed and chart reviewed HPI Narrative: 33 yo male with hx of Diabetes 2 HTN, asthma; pt admitted to medical floor after fall and laying on floor for hours with resulting severe acute kidney injury and rhabdomyolysis. Psychiatry was asked to consult re: depression. he reports not feeling depressed now but has a remote history of depression and was treated inpast at [facility] and [facility]. He reports being on zoloft inpast with good effect. He denies SI or Hi. he is oriented x4. he is aware of medical condition and need for dialysis and long road of reconditioning of ability to ambulate. He reports psychological motivation to do that. he does present low energy and flat affect, slow to respond at times. makes good eye contact and fully cooperates with interview; smiles slightly at end of interview; discussed retrial of zoloft low dose and lowering abilify and trazodone due to episode of hypotension which may be related to side effects of abilify and trazodone. Past Psychiatric History: outpt tx for dperession at [facility] and [facility] in past; was at [facility] (MICHELLE tx) in past Medical Evaluation Reviewed: Yes Personal & Social History: lives alone in his own apartment; one neighbor is supportive Review of Systems Review of Systems Negative except HPI/interval history. Yes all other systems are reviewed and are negative, Unobtainable due to mental condition (Patient poor historian ) and Unobtainable due to mental status Constitutional: Reports as per HPI, Reports no additional constitutional complaints, Denies chills, Denies fever(s) and Reports malaise Eyes: Reports as per HPI and Reports no additional eye complaints Denies system reviewed and no additional complaints, except as documented and Reports as per HPI Cardiovascular: Reports as per HPI, Reports no additional cardiovascular complaints, Denies acrocyanosis, Denies cool extremities, Denies chest pain, Denies leg edema, Denies lightheadedness, Denies palpitations and Denies dyspnea Respiratory: Reports as per HPI, Reports no additional respiratory complaints and Denies dyspnea Gastrointestinal: Reports as per HPI and Denies no additional gastrointestinal complaints Genitourinary: Reports no additional male genitourinary complaints and Reports as per HPI Musculoskeletal: Reports no additional musculoskeletal complaints, Reports as per HPI, Reports myalgias and Reports stiffness Skin/Breast: Reports system reviewed and no additional complaints, except as docu Reports system reviewed and no additional complaints, except as documented and Reports as per HPI Psychiatric: Reports no additional psychiatric complaints and Reports as per HPI Endocrine: Reports no additional endocrine complaints, Reports as per HPI and Denies palpitations Hematologic/Lymphatic: Reports no additional hematologic/lymphatic complaints and Reports as per HPI Allergic/Immunologic: Reports no additional allergic/immunologic complaints and Reports as per HPI [facility] Medical History Tobacco dependence syndrome Rectal hemorrhage Prostatism Palpitations Nausea Leg edema, left Hyperglycemia Homeless History of COVID-19 Heartburn Essential hypertension Depressive disorder Chronic pain of left knee Chronic lower back pain Chest pain Asthma Amnesia Surgical History Umbilical hernia (04/01/23) History of surgery on lower extremity History of surgery on arm Family History: deferred Social History: lives alone Substance History: hx of suboxone tx in past Trauma History: unknown Diagnostics Vital Signs (24Hr): Vital Signs - 24 hr 08/23/23 13:22 08/23/23 15:49 08/23/23 23:50 Temperature 97.5 F 97.4 F 97.1 F Pulse Rate 99 102 H 101 H Respiratory Rate 17 18 18 Blood Pressure 168/82 H 96/68 89/54 L Pulse Oximetry 96 97 94 Oxygen Delivery Method Room Air Room Air Room Air 08/23/23 23:55 08/24/23 02:14 08/24/23 03:10 Temperature 97.8 F Pulse Rate 100 Respiratory Rate 18 Blood Pressure 93/58 L 96/55 L 95/57 L Pulse Oximetry 92 Oxygen Delivery Method Room Air 08/24/23 07:41 Temperature 97.4 F Pulse Rate 94 Respiratory Rate 16 Blood Pressure 106/55 L Pulse Oximetry 94 Oxygen Delivery Method Room Air BMI result Body Mass Index 49.2 Labs 08/23/23 06:58 08/23/23 06:58 Labs: Laboratory Results - last 48 hr 08/22/23 08/22/23 08/23/23 16:19 20:55 06:58 WBC 8.1 RBC 3.35 L Hgb 9.8 L Hct 30.4 L MCV 90.7 MCH 29.3 MCHC 32.2 RDW 13.1 Plt Count 297 MPV 8.6 L Absolute Nucleated RBC 0.000 Nucleated RBC % (auto) 0.0 Sodium 133 L Potassium 5.1 D Chloride 99 Carbon Dioxide 16 L Anion Gap 23 H BUN 78 H Creatinine 11.46 H* Estim Creat Clear Calc 10.6 Estimated GFR 5 POC Glucose 117 H 113 Random Glucose 101 Calcium 9.9 08/23/23 08/23/23 08/23/23 07:35 12:59 16:22 WBC RBC Hgb Hct MCV MCH MCHC RDW Plt Count MPV Absolute Nucleated RBC Nucleated RBC % (auto) Sodium Potassium Chloride Carbon Dioxide Anion Gap BUN Creatinine Estim Creat Clear Calc Estimated GFR POC Glucose 89 96 119 H Random Glucose Calcium 08/23/23 08/24/23 08/24/23 20:22 07:30 11:07 WBC RBC Hgb Hct MCV MCH MCHC RDW Plt Count MPV Absolute Nucleated RBC Nucleated RBC % (auto) Sodium Potassium Chloride Carbon Dioxide Anion Gap BUN Creatinine Estim Creat Clear Calc Estimated GFR POC Glucose 138 H 98 119 H Random Glucose Calcium Imaging Radiology Impressions: ITS Impressions Elbow X-Ray 07/11/23 13:28 IMPRESSION: Normal right elbow. Lumbar Spine X-Ray 07/11/23 13:28 IMPRESSION: No fracture or dislocation. Lower lumbar spine facet arthritis. Shoulder X-Ray 07/11/23 13:28 IMPRESSION: No fracture or dislocation. Cervical Spine CT 07/11/23 13:38 IMPRESSION: Limited exam due to motion. C7 vertebral body not completely imaged. Degenerative changes. Repeat exam should be considered if there is high clinical suspicion of injury. Fleischner guidelines were followed. Head CT 07/11/23 13:38 IMPRESSION: No acute findings. Cervical Spine CT 07/11/23 16:40 IMPRESSION: * There is no fracture or subluxation of the degenerated cervical spine. * Mild discovertebral degenerative changes at C4-C5, C5-C6 and C6-C7. * The uncovertebral joint hypertrophy at C3-C4 causes moderate bilateral foraminal stenosis at this level. * Facet arthropathy is worst (moderate in degree) on the right at C4-C5. Venous Duplex 07/12/23 09:00 IMPRESSION: 1. No DVT demonstrated in the right upper extremity. 2. There is superficial thrombophlebitis with thrombus present throughout the right basilic vein. Insertion Non-Tunneled Catheter 07/13/23 14:34 IMPRESSION: Placement of a non-tunneled hemodialysis catheter in the right internal jugular vein. PLAN: -The catheter may be used immediately. This procedure was performed by Valeriy Fulton PA-C, and directly supervised by Dr. Trinh. Insertion Tunneled Catheter 07/16/23 11:13 IMPRESSION: Placement of a tunneled hemodialysis catheter in the right internal jugular vein. PLAN: -The catheter may be used immediately. This procedure was performed by Valeriy Fulton PA-C, and directly supervised by Dr. Francisco. Chest X-Ray 07/20/23 22:55 IMPRESSION: Low lung volumes. No acute cardiopulmonary process. Mental Status Exam Mental Status Exam Patient Appearance: Appropriate Patient Orientation: Person, Place, Time and Situation Level of Consciousness: Awake and Appropriate Patient Behavior: Appropriate Mood Description: Flat Affect Description: Flat Patient Cognition Impaired: No Ability to Follow Directions: Good Speech Pattern: Clear and Delayed (slight delay) Memory Description: Intact Hallucinations: None Delusions: Not Present Thought Process: Intact and Goal Oriented Thought Content: positive for Intact and positive for [place] Judgement: Good Medications Medications Current Medications Acetaminophen (Acetaminophen 325 Mg Tablet) 650 mg PO Q4H PRN PRN Reason: Pain, Moderate(Pain Scale 4-6) Last Admin: 08/20/23 22:19 Dose: 650 mg Aripiprazole (Aripiprazole 5 Mg Tablet) 5 mg PO DAILY JOVANNY Last Admin: 08/24/23 09:07 Dose: 5 mg Fluticasone Propionate (Fluticasone Propionate Nasal 16 Gm [place]) 2 spray NOSTRIL-B DAILY [facility] Last Admin: 08/24/23 09:10 Dose: 2 spray Gabapentin (Gabapentin 100 Mg Capsule) 100 mg PO BID [facility]OVANNY Last Admin: 08/24/23 09:07 Dose: 100 mg Heparin Sodium (Porcine) (Heparin Sodium,Porcine 5,000 Unit/Ml Vial) 5,000 unit SUBCUT TID JOVANNY Last Admin: 08/24/23 09:08 Dose: 5,000 unit Hydrocortisone (Hydrocortisone 1 % Cream 28.35 Gm Tube) 1 appl TOPICAL DAILY [facility]; Protocol Last Admin: 08/24/23 09:11 Dose: 1 appl Dextrose (D10) 250 mls @ 750 mls/hr IV Q15M PRN PRN Reason: per Hypoglycemia Standing Ord. Insulin Human Lispro (Insulin Lispro 100 Unit/Ml 3 Ml Vial) 0 unit SUBCUT QIDACHS [facility]; Protocol Last Admin: 08/24/23 07:36 Dose: Not Given Lidocaine (Lidocaine 4 % Patch Adh..Patch) 1 patch TRANSDERMA DAILY [facility] Last Admin: 08/24/23 09:06 Dose: 1 patch Multi-Ingred Cream/Lotion/Oil/Oint (Mineral Oil/Petrolatum,White 106 Gm Tube) 1 appl TOPICAL BID [facility]; Protocol Last Admin: 08/24/23 09:11 Dose: 1 appl Nystatin (Nystatin Powder 15 Gm Bottle) 1 appl TOPICAL BID [facility]NY; Protocol Last Admin: 08/24/23 09:11 Dose: 1 appl Ondansetron HCl (Ondansetron Odt 4 Mg Tab.Rapdis) 4 mg TRANSLINGU Q6H PRN PRN Reason: Nausea and Vomiting Polyethylene Glycol (Polyethylene Glycol 3350 17 Gm Powd.Pack) 17 gm PO DAILY [facility] Last Admin: 08/24/23 09:14 Dose: Not Given Trazodone HCl (Trazodone Hcl 50 Mg Tablet) 50 mg PO BEDTIME JOVANNY Last Admin: 08/23/23 20:45 Dose: 50 mg Allergies Allergies Allergy/AdvReac Type Severity Reaction Status Date / Time aspirin [ASPIRIN] Allergy Unknown SWELLING, Verified 07/11/23 12:24 NAUSEA, VOMITING Assessment & Plan Assessment & Plan (1) Need for acute hemodialysis: Status: Acute Code(s): Z99.2 - Dependence on renal dialysis (2) Major depression, recurrent: Qualifiers: Active/Remission status: currently active Major depression episode severity: moderate Qualified Code(s): F33.1 - Major depressive disorder, recurrent, moderate Status: Acute Code(s): F33.9 - Major depressive disorder, recurrent, unspecified Assessment and Plan: PSYCHIATRY: reduce abilify to 2.5mg daily add zoloft 12.5mg daily reduce trazodone to 25 mg at bedtime; could increase or decrease as needed or tolerated. meds above can often cause orthostatic hypotension, hyponatremia so will need to be monitored signing off for now. Thank you for consulting and please re-consult psychiatry if needed Plan 53 years old male with PMH of DM2, HTN, Asthma who presented to ED After sustaining a fall and laying on the floor for 9 hours found to have severe acute kidney injury from rhabdomyolysis and hyperkalemia Leg and back pain chronic continue gabapentin 100mg BID, consider titrating up on going PT treatment Depression. unspecified lack of motivation to ambulate or even get oob Restarted abilify and trazodone but still depressed psych consult still pending from 08/20/23 continue to encourage participation in PT Rash improving around port, neck and b/l arms in areas of previous adhesive likely reaction to adhesive no cellulitis, no infection supportive care, try alternative adhesive topical steroid cream CHITO and severe hyperkalemia and acute metabolic acidosis due to ATN from rhabdomyolysis and no renal recovery and started on HD, TTS, permacath placed 07/16/23. awaiting set up of rehab with HD Continue dialysis sessions per nephrology MWF Has outpatient dialysis spot at [place] dialysis upon discharge Hypotension. Resolved post dialysis, not due to sepsis Midodrine days of dialysis as needed Sinus tachycardia Seems persistent since admission, no hypoxia Echocardiogram with preserved EF, TSH wnl, has been on dvt pptx - so low suspicion for PE likely related to deconditioning Physical deconditioning will need to increase physical activity PT following Oob to chair and ambulating daily Acute?Rhabdomyolysis 2/2 fall and long stay on floor. resolved no evidence of compartment syndrome at any point Elevated troponin on admission outpatient ischemic work up per cardiology team Acute lactic acidosis, resolved in the setting of rhabdo and renal failure not due to severe sepsis chest pain resolved negative work up hx of substance abuse off suboxone since admission Diabetes ss, ada diet Morbid Obesity. BMI 49.2 Discussed importance of weight management as this may be contributing to worsening of other comorbidities DVT PPx Heparin attending Dr. Johnson intermittently refuses vitals, lab draws etc reason for continued hospitalization: debilitated / depressed, safe discharge PSYCHIATRY: reduce abilify to 2.5mg daily add zoloft 12.5mg daily reduce trazodone to 25 mg at bedtime; could inrcease or decrease as needed or tolerated. meds above can often cause orthostatic hypotension, hyponatremia so will need to be monitored signing off for now. Thank you for consulting and Please re-consult psychiatry if needed Total time managing care of this patient today ___60_ minutes. Patient educated on: diagnosis, medication risk/benefits and therapeutic strategies Informed Consent: understands
[2023-08-24 12:00] VITALS: BP 93/57; PULSE 96; RESP 16; TEMP 36.3; O2SAT 95
--- NOTE | 2023-08-24 13:24 | P.PNNP_ITS ---
Subjective Subjective Date of Service: 08/24/23 Principal diagnosis: Elevated troponins Interval history: seen and examined this AM; Denies any complaints; Due HD tomorrow Physical Exam 2 Vital Signs: Vital Signs: Last Vital Signs Temp 97.4 F 08/24/23 07:41 Pulse 94 08/24/23 07:41 Resp 16 08/24/23 07:41 BP 106/55 L 08/24/23 07:41 Pulse Ox 94 08/24/23 07:41 O2 Del Method Room Air 08/24/23 07:41 O2 Flow Rate 2 07/26/23 11:35 BMI result Body Mass Index 49.2 Const: General: no acute distress Orientation/consciousness: patient oriented x3 Eyes: EOM: EOMs intact bilaterally Resp: Auscultation: diminished lung sounds Cardio: Rate: regular rate GI: Palpation (GI): Soft to palpation Neuro: General: patient oriented x3 and moves all extremities Objective Data Labs 08/23/23 06:58 08/23/23 06:58 Labs: Laboratory Results - last 24 hr 08/23/23 08/23/23 08/24/23 16:22 20:22 07:30 POC Glucose 119 H 138 H 98 08/24/23 11:07 POC Glucose 119 H Microbiology Microbiology Results: Microbiology 07/20/23 22:49 Blood - Venous Blood Culture - Final No growth after 5 days. 07/20/23 22:49 Blood - Venous Blood Culture - Final No growth after 5 days. 07/12/23 12:30 Blood - Venous Blood Culture - Final No growth after 5 days. 07/12/23 12:15 Blood - Venous Blood Culture - Final No growth after 5 days. 07/12/23 Unknown Urine Catheterized - Straight Catheter Urine Culture - Final No growth. 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
[2023-08-24 15:43] VITALS: BP 118/72; PULSE 97; RESP 20; TEMP 36.3; O2SAT 92
[2023-08-24 16:16] LABS: Glucose, Whole Blood 143 mg/dL (60-115)
[2023-08-24 19:08] VITALS: BP 120/62; PULSE 99; RESP 20; TEMP 35.9; O2SAT 96
[2023-08-24 19:36] LABS: Glucose, Whole Blood 146 mg/dL (60-115)
[2023-08-24] MEDS: traZODone HCL 25 MG HALFTAB PO (20:55)
[2023-08-24] MEDS: Sertraline HCL 25 MG TABLET 12.5 MG PO (20:55)
[2023-08-25] VITALS: BP 107/57; PULSE 101; RESP 17; TEMP 36.3; O2SAT 97
[2023-08-25 07:51] LABS: Glucose, Whole Blood 97 mg/dL (60-115)
[2023-08-25 08:00] VITALS: BP 102/66; PULSE 96; RESP 16; TEMP 36.1; O2SAT 96
--- NOTE | 2023-08-25 10:35 | MHC.CM.PN ---
EMR REVIEWED, PT IN NEED OF STR OR NEEDS TO BE WELL ENOUGH TO DC HOME W/SERVICES, PT ALSO W/NEW H.D. AND ON SUBOXONE, REFERRAL EXPANDED, P.T. ALSO WORKING W/PT IN HOPES HE WILL IMPROVE ENOUGH TO DC HOME ALTERNATE PLAN, OOUTPT HD SET UP IN [place], WILL CONT TO FOLLOW DC NEEDS.
[2023-08-25] MEDS: Lidocaine 4 % Patch ADH..PATCH 1 PATCH TRANSDERMA (12:49)
[2023-08-25] MEDS: Heparin Sodium,Porcine 5,000 UNIT/ML VIAL 5000 UNIT SUBCUT ×2 (12:50→21:20)
[2023-08-25] MEDS: ARIPiprazole 5 MG TABLET 2.5 MG PO (12:50)
[2023-08-25] MEDS: Gabapentin 100 MG CAPSULE PO ×2 (12:50→21:19)
[2023-08-25] MEDS: polyethylene glycoL 3350 17 GM POWD.PACK PO (12:50)
[2023-08-25] MEDS: Fluticasone Propionate Nasal 16 GM SPRAY 2 SPRAY NOSTRIL-B (12:51)
[2023-08-25] MEDS: Hydrocortisone 1 % Cream 28.35 GM TUBE 1 APPL TOPICAL (12:51)
[2023-08-25] MEDS: Mineral Oil/Petrolatum,White 106 GM Tube 1 APPL TOPICAL ×2 (12:51→21:21)
[2023-08-25] MEDS: Nystatin Powder 15 GM BOTTLE 1 APPL TOPICAL ×2 (12:51→21:20)
[2023-08-25 12:55] LABS: Glucose, Whole Blood 93 mg/dL (60-115)
--- NOTE | 2023-08-25 13:27 | P.PNNP_ITS ---
Subjective Subjective Date of Service: 08/25/23 Principal diagnosis: Elevated troponins Interval history: seen and examined this AM on HD ; Denies any complaints; D/W HD RN Physical Exam 2 Vital Signs: Vital Signs: Last Vital Signs Temp 96.9 F 08/25/23 08:00 Pulse 96 08/25/23 08:00 Resp 16 08/25/23 08:00 BP 102/66 08/25/23 08:00 Pulse Ox 96 08/25/23 08:00 O2 Del Method Room Air 08/25/23 08:00 O2 Flow Rate 2 07/26/23 11:35 BMI result Body Mass Index 49.2 Const: General: no acute distress Eyes: EOM: EOMs intact bilaterally Neck: Neck: Yes supple Resp: Auscultation: diminished lung sounds Cardio: Rate: regular rate GI: Palpation (GI): Soft to palpation Neuro: General: moves all extremities Objective Data Labs 08/23/23 06:58 08/23/23 06:58 Labs: Laboratory Results - last 24 hr 08/24/23 08/24/23 08/25/23 16:12 19:29 07:37 POC Glucose 143 H 146 H 97 08/25/23 12:50 POC Glucose 93 Microbiology Microbiology Results: Microbiology 07/20/23 22:49 Blood - Venous Blood Culture - Final No growth after 5 days. 07/20/23 22:49 Blood - Venous Blood Culture - Final No growth after 5 days. 07/12/23 12:30 Blood - Venous Blood Culture - Final No growth after 5 days. 07/12/23 12:15 Blood - Venous Blood Culture - Final No growth after 5 days. 07/12/23 Unknown Urine Catheterized - Straight Catheter Urine Culture - Final No growth. 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
--- NOTE | 2023-08-25 13:44 | P.PNIM_ITS ---
Subjective Subjective Date of Service: 08/25/23 Interval History: Being followed for acute kidney injury requiring hemodialysis. Patient seen during hemodialysis offers no acute complaints feels motivated to participate in physical therapy, no acute overnight events seen by psychiatry medications adjusted. Review of Systems All other system reviewed and are negative. Physical Exam 2 Vital Signs: Vital Signs: Last Vital Signs Temp 96.9 F 08/25/23 08:00 Pulse 96 08/25/23 08:00 Resp 16 08/25/23 08:00 BP 102/66 08/25/23 08:00 Pulse Ox 96 08/25/23 08:00 O2 Del Method Room Air 08/25/23 08:00 O2 Flow Rate 2 07/26/23 11:35 BMI result Body Mass Index 49.2 Const: Other: General awake alert x3, in no acute distress. Anicteric sclera Neck no JVD. CVS regular rate rhythm, Respiratory lungs clear to auscultation, no respiratory distress, no wheeze, no rhonchi. Gastrointestinal abdomen soft, non tender, bowel sounds audible Extremities no edema. Neuro non focal, speech clear. Skin no rash Psych appropriate affect Objective Data Active Medications Acetaminophen (Acetaminophen 325 Mg Tablet) 650 mg PO Q4H PRN PRN Reason: Pain, Moderate(Pain Scale 4-6) Last Admin: 08/20/23 22:19 Dose: 650 mg Documented By: CUCA Aripiprazole (Aripiprazole 5 Mg Tablet) 2.5 mg PO DAILY [facility] Last Admin: 08/25/23 12:50 Dose: 2.5 mg Documented By: LLUVIA Comments: Fluticasone Propionate (Fluticasone Propionate Nasal 16 Gm [place]) 2 spray NOSTRIL-B DAILY [facility] Last Admin: 08/25/23 12:51 Dose: 2 spray Documented By: LLUVIA Gabapentin (Gabapentin 100 Mg Capsule) 100 mg PO BID [facility] Last Admin: 08/25/23 12:50 Dose: 100 mg Documented By: LLUVIA Heparin Sodium (Porcine) (Heparin Sodium,Porcine 5,000 Unit/Ml Vial) 5,000 unit SUBCUT TID [facility] Last Admin: 08/25/23 12:50 Dose: 5,000 unit Documented By: LLUVIA Hydrocortisone (Hydrocortisone 1 % Cream 28.35 Gm Tube) 1 appl TOPICAL DAILY [facility]; Protocol Last Admin: 08/25/23 12:51 Dose: 1 appl Documented By: LLUVIA Dextrose (D10) 250 mls @ 750 mls/hr IV Q15M PRN PRN Reason: per Hypoglycemia Standing Ord. Insulin Human Lispro (Insulin Lispro 100 Unit/Ml 3 Ml Vial) 0 unit SUBCUT QIDACHS [facility]; Protocol Last Admin: 08/25/23 12:52 Dose: Not Given Documented By: LLUVIA Non-Admin Reason: No Insulin Coverage Lidocaine (Lidocaine 4 % Patch Adh..Patch) 1 patch TRANSDERMA DAILY [facility] Last Admin: 08/25/23 12:49 Dose: 1 patch Documented By: LLUVIA Multi-Ingred Cream/Lotion/Oil/Oint (Mineral Oil/Petrolatum,White 106 Gm Tube) 1 appl TOPICAL BID [facility]; Protocol Last Admin: 08/25/23 12:51 Dose: 1 appl Documented By: LLUVIA Nystatin (Nystatin Powder 15 Gm Bottle) 1 appl TOPICAL BID [facility]; Protocol Last Admin: 08/25/23 12:51 Dose: 1 appl Documented By: LLUVIA Ondansetron HCl (Ondansetron Odt 4 Mg Tab.Rapdis) 4 mg TRANSLINGU Q6H PRN PRN Reason: Nausea and Vomiting Polyethylene Glycol (Polyethylene Glycol 3350 17 Gm Powd.Pack) 17 gm PO DAILY [facility]OVANNY Last Admin: 08/25/23 12:50 Dose: 17 gm Documented By: LLUVIA Sertraline HCl (Sertraline Hcl 25 Mg Tablet) 12.5 mg PO BEDTIME JOVANNY Last Admin: 08/24/23 20:55 Dose: 12.5 mg Documented By: BEN Trazodone HCl (Trazodone Hcl 25 Mg Halftab) 25 mg PO BEDTIME JOVANNY Last Admin: 08/24/23 20:55 Dose: 25 mg Documented By: BEN Labs 08/23/23 06:58 08/23/23 06:58 Labs: Laboratory Results - last 24 hr 08/24/23 08/24/23 08/25/23 16:12 19:29 07:37 POC Glucose 143 H 146 H 97 08/25/23 12:50 POC Glucose 93 Assessment and Plan (1) Need for acute hemodialysis: Status: Acute Plan 53 years old male with PMH of DM2, HTN, Asthma who presented to ED After sustaining a fall and laying on the floor for 9 hours found to have severe acute kidney injury from rhabdomyolysis and hyperkalemia Chronic Leg and back pain continue gabapentin 100mg BID on going PT treatment Depression. unspecified Seems more motivated this morning, seen by psychiatry, they recommended decrease dose of Abilify to 2.5 mg daily since it can cause orthostasis, decrease dose of trazodone to 25 mg at bedtime and Zoloft low-dose added continue to encourage participation in PT Rash improving , likely reaction to adhesive, continue topical steroids CHITO and severe hyperkalemia and acute metabolic acidosis due to ATN from rhabdomyolysis and no renal recovery and started on HD, TTS, permacath placed 07/16/23. Continue dialysis per nephrology MWF Has outpatient dialysis spot at [place] dialysis upon discharge Hypotension. Resolved post dialysis, not due to sepsis Midodrine days of dialysis as needed Had an episode of hypotension 07/25, psychiatric medications adjusted continue midodrine Sinus tachycardia Heart rate significantly improved,no hypoxia Echocardiogram with preserved EF, TSH wnl, has been on dvt pptx - so low suspicion for PE likely related to deconditioning Physical deconditioning PT following Oob to chair and ambulating daily Acute?Rhabdomyolysis 2/2 fall and long stay on floor. resolved no evidence of compartment syndrome at any point, persistent right upper extremity decreased range of motion and pain, encourage range of motion activity Elevated troponin on admission outpatient ischemic work up per cardiology team Acute lactic acidosis, resolved in the setting of rhabdo and renal failure not due to severe sepsis chest pain resolved negative work up hx of substance abuse off suboxone since admission Diabetes ss, ada diet Morbid Obesity. BMI 49.2 Discussed importance of weight management as this may be contributing to worsening of other comorbidities DVT PPx Heparin reason for continued hospitalization: debilitated / depressed, safe discharge Quality Stroke Does the patient have a stroke diagnosis?: No VTE Prior VTE?: No VTE Risk Level:: Medical - moderate - high VTE Device Contraindication: N/A - Device Ordered VTE Drug Contraindication: N/A - Med Ordered
[2023-08-25 16:00] VITALS: BP 103/61; PULSE 101; RESP 20; TEMP 36.2; O2SAT 94
[2023-08-25 16:15] LABS: Glucose, Whole Blood 100 mg/dL (60-115)
[2023-08-25 20:26] LABS: Glucose, Whole Blood 138 mg/dL (60-115)
[2023-08-25 21:17] VITALS: BP 99/60; RESP 20
[2023-08-25] MEDS: Sertraline HCL 25 MG TABLET 12.5 MG PO (21:19)
[2023-08-25] MEDS: traZODone HCL 25 MG HALFTAB PO (21:19)
[2023-08-26] VITALS: BP 107/60; PULSE 105; RESP 20; TEMP 36.7; O2SAT 96
[2023-08-26 07:59] LABS: Glucose, Whole Blood 95 mg/dL (60-115)
[2023-08-26 08:00] VITALS: BP 107/73; PULSE 98; RESP 19; TEMP 36.9; O2SAT 97
[2023-08-26] MEDS: Gabapentin 100 MG CAPSULE PO ×2 (08:44→20:30)
[2023-08-26] MEDS: ARIPiprazole 5 MG TABLET 2.5 MG PO (08:44)
[2023-08-26] MEDS: Lidocaine 4 % Patch ADH..PATCH 1 PATCH TRANSDERMA (08:45)
[2023-08-26] MEDS: Heparin Sodium,Porcine 5,000 UNIT/ML VIAL 5000 UNIT SUBCUT ×2 (08:45→20:33)
[2023-08-26] MEDS: Fluticasone Propionate Nasal 16 GM SPRAY 2 SPRAY NOSTRIL-B (08:45)
[2023-08-26] MEDS: polyethylene glycoL 3350 17 GM POWD.PACK PO (08:45)
[2023-08-26] MEDS: Hydrocortisone 1 % Cream 28.35 GM TUBE 1 APPL TOPICAL (08:45)
[2023-08-26] MEDS: Nystatin Powder 15 GM BOTTLE 1 APPL TOPICAL ×2 (08:46→20:39)
--- NOTE | 2023-08-26 11:24 | P.PNIM_ITS ---
Subjective Subjective Date of Service: 08/26/23 Interval History: Being followed for CHITO, started on hemodialysis Complaining of decreased range of motion right upper extremity, is motivated to participate in physical therapy, wishes to resume activity and return to home, tolerating diet no nausea, no vomiting, no abdominal pain no other acute issues overnight. Review of Systems All other systems are reviewed and are negative. Physical Exam 2 Vital Signs: Vital Signs: Last Vital Signs Temp 98.4 F 08/26/23 08:00 Pulse 98 08/26/23 08:00 Resp 19 08/26/23 08:00 BP 107/73 08/26/23 08:00 Pulse Ox 97 08/26/23 08:00 O2 Del Method Room Air 08/26/23 08:00 O2 Flow Rate 2 07/26/23 11:35 BMI result Body Mass Index 49.2 Const: Other: General awake alert x3, in no acute distress. Anicteric sclera Neck no JVD. CVS regular rate rhythm, Respiratory lungs clear to auscultation, no respiratory distress, no wheeze, no rhonchi. Gastrointestinal abdomen soft, non tender, bowel sounds audible Extremities no edema. Right upper extremity decreased range of motion right shoulder/no swelling or erythema. Neuro non focal, speech clear. Skin no rash Psych appropriate affect Objective Data Active Medications Acetaminophen (Acetaminophen 325 Mg Tablet) 650 mg PO Q4H PRN PRN Reason: Pain, Moderate(Pain Scale 4-6) Last Admin: 08/20/23 22:19 Dose: 650 mg Documented By: CUCA Aripiprazole (Aripiprazole 5 Mg Tablet) 2.5 mg PO DAILY [facility] Last Admin: 08/26/23 08:44 Dose: 2.5 mg Documented By: YUNIER Fluticasone Propionate (Fluticasone Propionate Nasal 16 Gm [place]) 2 spray NOSTRIL-B DAILY [facility] Last Admin: 08/26/23 08:45 Dose: 2 spray Documented By: YUNIER Gabapentin (Gabapentin 100 Mg Capsule) 100 mg PO BID [facility] Last Admin: 08/26/23 08:44 Dose: 100 mg Documented By: YUNIER Heparin Sodium (Porcine) (Heparin Sodium,Porcine 5,000 Unit/Ml Vial) 5,000 unit SUBCUT TID [facility] Last Admin: 08/26/23 08:45 Dose: 5,000 unit Documented By: YUNIER Hydrocortisone (Hydrocortisone 1 % Cream 28.35 Gm Tube) 1 appl TOPICAL DAILY [facility]; Protocol Last Admin: 08/26/23 08:45 Dose: 1 appl Documented By: YUNIER Dextrose (D10) 250 mls @ 750 mls/hr IV Q15M PRN PRN Reason: per Hypoglycemia Standing Ord. Insulin Human Lispro (Insulin Lispro 100 Unit/Ml 3 Ml Vial) 0 unit SUBCUT QIDACHS [facility]; Protocol Last Admin: 08/26/23 08:30 Dose: Not Given Documented By: YUNIER Non-Admin Reason: No Insulin Coverage Lidocaine (Lidocaine 4 % Patch Adh..Patch) 1 patch TRANSDERMA DAILY [facility] Last Admin: 08/26/23 08:45 Dose: 1 patch Documented By: YUNIER Multi-Ingred Cream/Lotion/Oil/Oint (Mineral Oil/Petrolatum,White 106 Gm Tube) 1 appl TOPICAL BID [facility]; Protocol Last Admin: 08/26/23 08:47 Dose: Not Given Documented By: YUNIER Non-Admin Reason: Med Not Available Nystatin (Nystatin Powder 15 Gm Bottle) 1 appl TOPICAL BID [facility]; Protocol Last Admin: 08/26/23 08:46 Dose: 1 appl Documented By: YUNIER Ondansetron HCl (Ondansetron Odt 4 Mg Tab.Rapdis) 4 mg TRANSLINGU Q6H PRN PRN Reason: Nausea and Vomiting Polyethylene Glycol (Polyethylene Glycol 3350 17 Gm Powd.Pack) 17 gm PO DAILY [facility] Last Admin: 08/26/23 08:45 Dose: 17 gm Documented By: YUNIER Sertraline HCl (Sertraline Hcl 25 Mg Tablet) 12.5 mg PO BEDTIME [facility] Last Admin: 08/25/23 21:19 Dose: 12.5 mg Documented By: BEN Trazodone HCl (Trazodone Hcl 25 Mg Halftab) 25 mg PO BEDTIME [facility] Last Admin: 08/25/23 21:19 Dose: 25 mg Documented By: BEN Labs 08/23/23 06:58 08/23/23 06:58 Labs: Laboratory Results - last 24 hr 08/25/23 08/25/23 08/25/23 12:50 16:12 20:19 POC Glucose 93 100 138 H 08/26/23 07:55 POC Glucose 95 Assessment and Plan (1) Need for acute hemodialysis: Status: Acute Plan 53 years old male with PMH of DM2, HTN, Asthma who presented to ED After sustaining a fall and laying on the floor for 9 hours found to have severe acute kidney injury from rhabdomyolysis and hyperkalemia Chronic Leg and back pain Stable, continue gabapentin 100mg BID Depression. unspecified motivated this morning, seen by psychiatry 08/23, they recommended decrease dose of Abilify to 2.5 mg daily ,since it can cause orthostasis, decrease dose of trazodone to 25 mg at bedtime and Zoloft low-dose added continue to encourage participation in PT CHITO and severe hyperkalemia and acute metabolic acidosis due to ATN from rhabdomyolysis and no renal recovery and started on HD, TTS, permacath placed 07/16/23. Continue dialysis per nephrology MWF Has outpatient dialysis spot at [place] dialysis upon discharge Hypotension. Resolved post dialysis, not due to sepsis Midodrine days of dialysis as needed Had an episode of hypotension 07/25, psychiatric medications adjusted continue midodrine, no recurrent episodes since Sinus tachycardia Heart rate significantly improved,no hypoxia Echocardiogram with preserved EF, TSH wnl, has been on dvt pptx - so low suspicion for PE likely related to deconditioning Physical deconditioning PT following Oob to chair and ambulation with physical therapy. Acute?Rhabdomyolysis 2/2 fall and long stay on floor. resolved no evidence of compartment syndrome at any point, persistent right upper extremity decreased range of motion and pain, encourage range of motion activity Elevated troponin on admission outpatient ischemic work up per cardiology team Acute lactic acidosis, resolved in the setting of rhabdo and renal failure not due to severe sepsis chest pain resolved negative work up hx of substance abuse off suboxone since admission Diabetes ss, ada diet Morbid Obesity. BMI 49.2 Discussed importance of weight management as this may be contributing to worsening of other comorbidities DVT PPx Heparin reason for continued hospitalization: debilitated / depressed, safe discharge Quality Stroke Does the patient have a stroke diagnosis?: No VTE Prior VTE?: No VTE Risk Level:: Medical - moderate - high VTE Device Contraindication: N/A - Device Ordered VTE Drug Contraindication: N/A - Med Ordered
[2023-08-26 11:30] LABS: Glucose, Whole Blood 123 mg/dL (60-115)
--- NOTE | 2023-08-26 15:00 | MHC.CM.PN ---
Patient appears to be making gains with PT, who is recommending STR. Referrals have been updated and CM will continue to follow.
[2023-08-26 15:18] VITALS: BP 107/73; PULSE 98; O2SAT 97
[2023-08-26 16:00] VITALS: BP 124/90; PULSE 95; RESP 19; TEMP 36.3; O2SAT 96
--- NOTE | 2023-08-26 17:05 | P.PNNP_ITS ---
Subjective Subjective Date of Service: 08/26/23 Principal diagnosis: Elevated troponins Interval history: tolerating diet no nausea, no vomiting, no abdominal pain no other acute issues overnight. Physical Exam 2 Vital Signs: Vital Signs: Last Vital Signs Temp 98.4 F 08/26/23 08:00 Pulse 98 08/26/23 15:18 Resp 19 08/26/23 08:00 BP 107/73 08/26/23 15:18 Pulse Ox 97 08/26/23 15:18 O2 Del Method Room Air 08/26/23 08:00 O2 Flow Rate 2 07/26/23 11:35 BMI result Body Mass Index 49.2 Const: General: no acute distress Orientation/consciousness: patient oriented x3 Eyes: EOM: EOMs intact bilaterally Neck: Neck: Yes supple Resp: Auscultation: diminished lung sounds Cardio: Rate: regular rate GI: Palpation (GI): Soft to palpation Neuro: General: patient oriented x3 Objective Data Labs 08/23/23 06:58 08/23/23 06:58 Labs: Laboratory Results - last 24 hr 08/25/23 08/26/23 08/26/23 20:19 07:55 11:19 POC Glucose 138 H 95 123 H Microbiology Microbiology Results: Microbiology 07/20/23 22:49 Blood - Venous Blood Culture - Final No growth after 5 days. 07/20/23 22:49 Blood - Venous Blood Culture - Final No growth after 5 days. 07/12/23 12:30 Blood - Venous Blood Culture - Final No growth after 5 days. 07/12/23 12:15 Blood - Venous Blood Culture - Final No growth after 5 days. 07/12/23 Unknown Urine Catheterized - Straight Catheter Urine Culture - Final No growth. 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
[2023-08-26] MEDS: traZODone HCL 25 MG HALFTAB PO (20:30)
[2023-08-26] MEDS: Sertraline HCL 25 MG TABLET 12.5 MG PO (20:30)
[2023-08-26 21:04] LABS: Glucose, Whole Blood 97 mg/dL (60-115)
[2023-08-26] MEDS: Mineral Oil/Petrolatum,White 106 GM Tube 1 APPL TOPICAL (22:58)
[2023-08-26 23:23] VITALS: BP 93/57; PULSE 100; RESP 18; TEMP 36.9; O2SAT 96
[2023-08-27 06:09] LABS: Glucose, Whole Blood 91 mg/dL (60-115)
[2023-08-27 07:52] LABS: Glucose, Whole Blood 92 mg/dL (60-115)
[2023-08-27 07:53] VITALS: BP 93/58; PULSE 96; RESP 20; TEMP 36.3; O2SAT 97
[2023-08-27] MEDS: ARIPiprazole 5 MG TABLET 2.5 MG PO (09:54)
[2023-08-27] MEDS: Midodrine HCl 10 MG TABLET PO (09:54)
[2023-08-27] MEDS: Heparin Sodium,Porcine 5,000 UNIT/ML VIAL 5000 UNIT SUBCUT ×2 (09:55→20:01)
[2023-08-27] MEDS: Gabapentin 100 MG CAPSULE PO ×2 (09:55→20:01)
[2023-08-27] MEDS: Lidocaine 4 % Patch ADH..PATCH 1 PATCH TRANSDERMA (09:55)
[2023-08-27] MEDS: Acetaminophen 325 MG TABLET 650 MG PO ×2 (09:55→20:01)
[2023-08-27] MEDS: Hydrocortisone 1 % Cream 28.35 GM TUBE 1 APPL TOPICAL (09:56)
[2023-08-27] MEDS: Fluticasone Propionate Nasal 16 GM SPRAY 2 SPRAY NOSTRIL-B (09:56)
[2023-08-27] MEDS: polyethylene glycoL 3350 17 GM POWD.PACK PO (09:57)
[2023-08-27] MEDS: Nystatin Powder 15 GM BOTTLE 1 APPL TOPICAL ×2 (09:58→20:05)
[2023-08-27] MEDS: Mineral Oil/Petrolatum,White 106 GM Tube 1 APPL TOPICAL ×2 (09:58→20:05)
--- NOTE | 2023-08-27 11:05 | MHC.CM.PN ---
Addendum entered by Vickie Galarza 08/27/23 15:25: [facility] is now working, clinical updates sent, no current STR bed offers at this time. Original Note: EMR reviewed and per MD rounds, pt remains medically cleared for discharge pending STR placement with new HD slot. PT and OT now recommending STR, referrals to be updated when [facility] back online.
[2023-08-27 11:07] LABS: Glucose, Whole Blood 127 mg/dL (60-115)
[2023-08-27 12:14] VITALS: BP 90/55; PULSE 103; RESP 20; TEMP 36.9; O2SAT 97
--- NOTE | 2023-08-27 12:25 | P.PNIM_ITS ---
Subjective Subjective Date of Service: 08/27/23 Interval History: Noted to have soft blood pressure this morning. Complaining of mild lightheadedness, persistent right upper extremity weakness , tolerating diet no nausea no vomiting no abdominal pain or diarrhea, scheduled for hemodialysis today. Review of Systems All other system reviewed and are negative Physical Exam 2 Vital Signs: Vital Signs: Last Vital Signs Temp 98.4 F 08/27/23 12:14 Pulse 103 H 08/27/23 12:14 Resp 20 08/27/23 12:14 BP 90/55 L 08/27/23 12:14 Pulse Ox 97 08/27/23 12:14 O2 Del Method Room Air 08/27/23 12:14 O2 Flow Rate 2 07/26/23 11:35 BMI result Body Mass Index 49.2 Const: Other: General awake alert x3, in no acute distress. Anicteric sclera Neck no JVD. CVS regular rate rhythm, Respiratory lungs clear to auscultation, no respiratory distress, no wheeze, no rhonchi. Gastrointestinal abdomen soft, non tender, bowel sounds audible Extremities no edema. Right upper extremity decreased range of motion right shoulder/no swelling or erythema. Neuro non focal, speech clear. Skin no rash Psych appropriate affect Objective Data Active Medications Acetaminophen (Acetaminophen 325 Mg Tablet) 650 mg PO Q4H PRN PRN Reason: Pain, Moderate(Pain Scale 4-6) Last Admin: 08/27/23 09:55 Dose: 650 mg Documented By: ANAT Aripiprazole (Aripiprazole 5 Mg Tablet) 2.5 mg PO DAILY [facility] Last Admin: 08/27/23 09:54 Dose: 2.5 mg Documented By: ANAT Fluticasone Propionate (Fluticasone Propionate Nasal 16 Gm [place]) 2 spray NOSTRIL-B DAILY [facility] Last Admin: 08/27/23 09:56 Dose: 2 spray Documented By: ANAT Gabapentin (Gabapentin 100 Mg Capsule) 100 mg PO BID [facility] Last Admin: 08/27/23 09:55 Dose: 100 mg Documented By: ANAT Heparin Sodium (Porcine) (Heparin Sodium,Porcine 5,000 Unit/Ml Vial) 5,000 unit SUBCUT TID [facility] Last Admin: 08/27/23 09:55 Dose: 5,000 unit Documented By: ANAT Hydrocortisone (Hydrocortisone 1 % Cream 28.35 Gm Tube) 1 appl TOPICAL DAILY [facility]; Protocol Last Admin: 08/27/23 09:56 Dose: 1 appl Documented By: ANAT Dextrose (D10) 250 mls @ 750 mls/hr IV Q15M PRN PRN Reason: per Hypoglycemia Standing Ord. Insulin Human Lispro (Insulin Lispro 100 Unit/Ml 3 Ml Vial) 0 unit SUBCUT QIDACHS [facility]; Protocol Last Admin: 08/27/23 11:20 Dose: Not Given Documented By: ANAT Non-Admin Reason: No Insulin Coverage Lidocaine (Lidocaine 4 % Patch Adh..Patch) 1 patch TRANSDERMA DAILY [facility] Last Admin: 08/27/23 09:55 Dose: 1 patch Documented By: ANAT Multi-Ingred Cream/Lotion/Oil/Oint (Mineral Oil/Petrolatum,White 106 Gm Tube) 1 appl TOPICAL BID [facility]; Protocol Last Admin: 08/27/23 09:58 Dose: 1 appl Documented By: ANAT Nystatin (Nystatin Powder 15 Gm Bottle) 1 appl TOPICAL BID [facility]; Protocol Last Admin: 08/27/23 09:58 Dose: 1 appl Documented By: ANAT Ondansetron HCl (Ondansetron Odt 4 Mg Tab.Rapdis) 4 mg TRANSLINGU Q6H PRN PRN Reason: Nausea and Vomiting Polyethylene Glycol (Polyethylene Glycol 3350 17 Gm Powd.Pack) 17 gm PO DAILY [facility] Last Admin: 08/27/23 09:57 Dose: 17 gm Documented By: ANAT Sertraline HCl (Sertraline Hcl 25 Mg Tablet) 12.5 mg PO BEDTIME [facility] Last Admin: 08/26/23 20:30 Dose: 12.5 mg Documented By: LUIS Trazodone HCl (Trazodone Hcl 25 Mg Halftab) 25 mg PO BEDTIME [facility] Last Admin: 08/26/23 20:30 Dose: 25 mg Documented By: LUIS Labs 08/23/23 06:58 08/23/23 06:58 Labs: Laboratory Results - last 24 hr 08/26/23 08/26/23 08/27/23 16:50 20:45 07:47 POC Glucose 91 97 92 08/27/23 11:03 POC Glucose 127 H Assessment and Plan (1) Need for acute hemodialysis: Status: Acute Plan 53 years old male with PMH of DM2, HTN, Asthma who presented to ED After sustaining a fall and laying on the floor for 9 hours found to have severe acute kidney injury from rhabdomyolysis and hyperkalemia Chronic Leg and back pain Stable, continue gabapentin 100mg BID Depression. unspecified No behavioral issues, seen by psychiatry 08/23, they recommended decrease dose of Abilify to 2.5 mg daily ,since it can cause orthostasis, decrease dose of trazodone to 25 mg at bedtime and Zoloft low-dose added continue to encourage participation in PT CHITO and severe hyperkalemia and acute metabolic acidosis due to ATN from rhabdomyolysis and no renal recovery and started on HD, TTS, permacath placed 07/16/23. Continue dialysis per nephrology MWF Has outpatient dialysis spot at [place] dialysis upon discharge Hypotension. Resolved post dialysis, not due to sepsis Resume Midodrine days of dialysis as needed Had an episode of hypotension 07/25, psychiatric medications adjusted continue midodrine, noted to have soft blood pressure this morning systolic BP greater than 90 encourage by mouth fluids and continue midodrine Sinus tachycardia Heart rate significantly improved,no hypoxia Echocardiogram with preserved EF, TSH wnl, has been on dvt pptx - so low suspicion for PE likely related to deconditioning Physical deconditioning PT following Oob to chair and ambulation with physical therapy. Acute?Rhabdomyolysis 2/2 fall and long stay on floor. resolved no evidence of compartment syndrome at any point, persistent right upper extremity decreased range of motion and pain, encourage range of motion activity, obtain OT consult for right upper extremity range of motion Elevated troponin on admission outpatient ischemic work up per cardiology team Acute lactic acidosis, resolved in the setting of rhabdo and renal failure not due to severe sepsis chest pain resolved negative work up hx of substance abuse off suboxone since admission Diabetes ss, ada diet Morbid Obesity. BMI 49.2 Discussed importance of weight management as this may be contributing to worsening of other comorbidities DVT PPx Heparin reason for continued hospitalization: debilitated / depressed, safe discharge Quality Stroke Does the patient have a stroke diagnosis?: No VTE Prior VTE?: No VTE Risk Level:: Medical - moderate - high VTE Device Contraindication: N/A - Device Ordered VTE Drug Contraindication: N/A - Med Ordered
[2023-08-27 16:21] LABS: Glucose, Whole Blood 98 mg/dL (60-115)
[2023-08-27 16:24] VITALS: BP 110/62; PULSE 100; RESP 16; TEMP 36.6; O2SAT 95
--- NOTE | 2023-08-27 19:10 | P.PNNP_ITS ---
Subjective Subjective Date of Service: 08/27/23 Principal diagnosis: Elevated troponins Interval history: On hemodialysis; All recent data reviewed Physical Exam 2 Vital Signs: Vital Signs: Last Vital Signs Temp 98 F 08/27/23 16:24 Pulse 100 08/27/23 16:24 Resp 16 08/27/23 16:24 BP 110/62 08/27/23 16:24 Pulse Ox 95 08/27/23 16:24 O2 Del Method Room Air 08/27/23 16:24 O2 Flow Rate 2 07/26/23 11:35 BMI result Body Mass Index 49.2 Const: General: no acute distress Orientation/consciousness: patient oriented x3 Eyes: EOM: EOMs intact bilaterally Neck: Neck: Yes supple Resp: Auscultation: diminished lung sounds Cardio: Rate: regular rate GI: Palpation (GI): Soft to palpation Neuro: General: patient oriented x3 and moves all extremities Objective Data Labs 08/23/23 06:58 08/23/23 06:58 Labs: Laboratory Results - last 24 hr 08/26/23 08/26/23 08/27/23 16:50 20:45 07:47 POC Glucose 91 97 92 08/27/23 08/27/23 11:03 16:18 POC Glucose 127 H 98 Microbiology Microbiology Results: Microbiology 07/20/23 22:49 Blood - Venous Blood Culture - Final No growth after 5 days. 07/20/23 22:49 Blood - Venous Blood Culture - Final No growth after 5 days. 07/12/23 12:30 Blood - Venous Blood Culture - Final No growth after 5 days. 07/12/23 12:15 Blood - Venous Blood Culture - Final No growth after 5 days. 07/12/23 Unknown Urine Catheterized - Straight Catheter Urine Culture - Final No growth. 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
[2023-08-27] MEDS: Sertraline HCL 25 MG TABLET 12.5 MG PO (20:00)
[2023-08-27] MEDS: traZODone HCL 25 MG HALFTAB PO (20:01)
[2023-08-27 20:13] LABS: Glucose, Whole Blood 94 mg/dL (60-115)
[2023-08-27 23:31] VITALS: BP 98/65; PULSE 98; RESP 18; TEMP 36.5; O2SAT 93
[2023-08-28 07:43] LABS: Glucose, Whole Blood 91 mg/dL (60-115)
[2023-08-28 07:55] VITALS: BP 113/71; PULSE 100; RESP 18; TEMP 36.3; O2SAT 96
[2023-08-28] MEDS: Nystatin Powder 15 GM BOTTLE 1 APPL TOPICAL ×2 (08:01→19:41)
[2023-08-28] MEDS: Fluticasone Propionate Nasal 16 GM SPRAY 2 SPRAY NOSTRIL-B (08:01)
[2023-08-28] MEDS: Mineral Oil/Petrolatum,White 106 GM Tube 1 APPL TOPICAL ×2 (08:02→19:40)
[2023-08-28] MEDS: Hydrocortisone 1 % Cream 28.35 GM TUBE 1 APPL TOPICAL (08:02)
[2023-08-28] MEDS: Acetaminophen 325 MG TABLET 650 MG PO ×2 (08:07→19:37)
[2023-08-28] MEDS: polyethylene glycoL 3350 17 GM POWD.PACK PO (08:07)
[2023-08-28] MEDS: Heparin Sodium,Porcine 5,000 UNIT/ML VIAL 5000 UNIT SUBCUT ×2 (08:07→19:37)
[2023-08-28] MEDS: Gabapentin 100 MG CAPSULE PO ×2 (08:07→19:37)
[2023-08-28] MEDS: ARIPiprazole 5 MG TABLET 2.5 MG PO (08:08)
[2023-08-28] MEDS: Lidocaine 4 % Patch ADH..PATCH 1 PATCH TRANSDERMA (08:08)
--- NOTE | 2023-08-28 09:51 | P.PNIM_ITS ---
Subjective Subjective Date of Service: 08/28/23 Interval History: Being followed for placement. Offers no acute complaints seen by Occupational therapy recommended range of motion exercises, tolerating diet able to feed himself, denies lightheadedness and dizziness blood pressure is stable this morning. No acute events overnight. Review of Systems All other system reviewed and are negative. Physical Exam 2 Vital Signs: Vital Signs: Last Vital Signs Temp 97.4 F 08/28/23 07:55 Pulse 100 08/28/23 07:55 Resp 18 08/28/23 07:55 BP 113/71 08/28/23 07:55 Pulse Ox 96 08/28/23 07:55 O2 Del Method Room Air 08/28/23 07:55 O2 Flow Rate 2 07/26/23 11:35 BMI result Body Mass Index 49.2 Const: Other: General awake alert x3, in no acute distress. Anicteric sclera Neck no JVD. CVS regular rate rhythm, Respiratory lungs clear to auscultation, no respiratory distress, no wheeze, no rhonchi. Gastrointestinal abdomen soft, non tender, bowel sounds audible. Extremities no edema. Right upper extremity decreased range of motion right shoulder/no swelling or erythema. Neuro non focal, speech clear. Skin no rash Psych appropriate affect Objective Data Active Medications Acetaminophen (Acetaminophen 325 Mg Tablet) 650 mg PO Q4H PRN PRN Reason: Pain, Moderate(Pain Scale 4-6) Last Admin: 08/28/23 08:07 Dose: 650 mg Documented By: ANAT Aripiprazole (Aripiprazole 5 Mg Tablet) 2.5 mg PO DAILY [facility] Last Admin: 08/28/23 08:08 Dose: 2.5 mg Documented By: ANAT Fluticasone Propionate (Fluticasone Propionate Nasal 16 Gm [place]) 2 spray NOSTRIL-B DAILY [facility] Last Admin: 08/28/23 08:01 Dose: 2 spray Documented By: ANAT Gabapentin (Gabapentin 100 Mg Capsule) 100 mg PO BID [facility] Last Admin: 08/28/23 08:07 Dose: 100 mg Documented By: ANAT Heparin Sodium (Porcine) (Heparin Sodium,Porcine 5,000 Unit/Ml Vial) 5,000 unit SUBCUT TID [facility] Last Admin: 08/28/23 08:07 Dose: 5,000 unit Documented By: ANAT Hydrocortisone (Hydrocortisone 1 % Cream 28.35 Gm Tube) 1 appl TOPICAL DAILY [facility]; Protocol Last Admin: 08/28/23 08:02 Dose: 1 appl Documented By: ANAT Dextrose (D10) 250 mls @ 750 mls/hr IV Q15M PRN PRN Reason: per Hypoglycemia Standing Ord. Insulin Human Lispro (Insulin Lispro 100 Unit/Ml 3 Ml Vial) 0 unit SUBCUT QIDACHS [facility]; Protocol Last Admin: 08/28/23 07:53 Dose: Not Given Documented By: ANAT Non-Admin Reason: No Insulin Coverage Lidocaine (Lidocaine 4 % Patch Adh..Patch) 1 patch TRANSDERMA DAILY [facility] Last Admin: 08/28/23 08:08 Dose: 1 patch Documented By: ANAT Multi-Ingred Cream/Lotion/Oil/Oint (Mineral Oil/Petrolatum,White 106 Gm Tube) 1 appl TOPICAL BID [facility]; Protocol Last Admin: 08/28/23 08:02 Dose: 1 appl Documented By: ANAT Nystatin (Nystatin Powder 15 Gm Bottle) 1 appl TOPICAL BID [facility]; Protocol Last Admin: 08/28/23 08:01 Dose: 1 appl Documented By: ANAT Ondansetron HCl (Ondansetron Odt 4 Mg Tab.Rapdis) 4 mg TRANSLINGU Q6H PRN PRN Reason: Nausea and Vomiting Polyethylene Glycol (Polyethylene Glycol 3350 17 Gm Powd.Pack) 17 gm PO DAILY [facility] Last Admin: 08/28/23 08:07 Dose: 17 gm Documented By: ANAT Sertraline HCl (Sertraline Hcl 25 Mg Tablet) 12.5 mg PO BEDTIME [facility] Last Admin: 08/27/23 20:00 Dose: 12.5 mg Documented By: SANTOSH Trazodone HCl (Trazodone Hcl 25 Mg Halftab) 25 mg PO BEDTIME [facility] Last Admin: 08/27/23 20:01 Dose: 25 mg Documented By: SANTOSH Labs 08/23/23 06:58 08/23/23 06:58 Labs: Laboratory Results - last 24 hr 08/27/23 08/27/23 08/27/23 11:03 16:18 20:09 POC Glucose 127 H 98 94 08/28/23 07:38 POC Glucose 91 Assessment and Plan (1) Need for acute hemodialysis: Status: Acute Plan 53 years old male with PMH of DM2, HTN, Asthma who presented to ED After sustaining a fall and laying on the floor for 9 hours found to have severe acute kidney injury from rhabdomyolysis and hyperkalemia CHITO and severe hyperkalemia and acute metabolic acidosis due to ATN from rhabdomyolysis and no renal recovery and started on HD, TTS, permacath placed 07/16/23. Continue dialysis per nephrology MWF Has outpatient dialysis spot at [place] dialysis upon discharge Chronic Leg and back pain Stable, continue gabapentin 100mg BID Depression. unspecified No behavioral issues, seen by psychiatry 08/23, they recommended decrease dose of Abilify to 2.5 mg daily ,since it can cause orthostasis, decrease dose of trazodone to 25 mg at bedtime and Zoloft low-dose added continue to encourage participation in PT Hypotension. Resolved post dialysis, not due to sepsis Resume Midodrine days of dialysis as needed Had an episode of hypotension 07/25, psychiatric medications adjusted continue midodrine, noted to have soft blood pressure this morning systolic BP greater than 90 encourage by mouth fluids and continue midodrine Sinus tachycardia Heart rate significantly improved,no hypoxia Echocardiogram with preserved EF, TSH wnl, has been on dvt pptx - so low suspicion for PE likely related to deconditioning Physical deconditioning PT following Oob to chair and ambulation with physical therapy. Acute?Rhabdomyolysis 2/2 fall and long stay on floor. resolved no evidence of compartment syndrome at any point, persistent right upper extremity decreased range of motion and pain, encourage range of motion activity, seen by OT they recommend short-term rehab, recommend range of motion exercises. Elevated troponin on admission outpatient ischemic work up per cardiology team Acute lactic acidosis, resolved in the setting of rhabdo and renal failure not due to severe sepsis chest pain resolved negative work up hx of substance abuse off suboxone since admission Diabetes ss, ada diet Morbid Obesity. BMI 49.2 Discussed importance of weight management as this may be contributing to worsening of other comorbidities DVT PPx Heparin reason for continued hospitalization: debilitated / depressed, safe discharge Quality Stroke Does the patient have a stroke diagnosis?: No VTE Prior VTE?: No VTE Risk Level:: Medical - moderate - high VTE Device Contraindication: N/A - Device Ordered VTE Drug Contraindication: N/A - Med Ordered
[2023-08-28 11:50] LABS: Glucose, Whole Blood 110 mg/dL (60-115)
[2023-08-28 15:17] VITALS: BP 115/72; PULSE 89; RESP 18; TEMP 36.4; O2SAT 97
[2023-08-28 16:35] LABS: Glucose, Whole Blood 81 mg/dL (60-115)
--- NOTE | 2023-08-28 16:52 | PC.NURSE ---
Pt has episode of dizziness when initially sitting up onto edge of bed to get to chair. Pressure stable 111/58 pt educated to move slowly from laying to sitting. OOB to chair with walker good strength. Dr Giron notified.
[2023-08-28] MEDS: traZODone HCL 25 MG HALFTAB PO (19:37)
[2023-08-28] MEDS: Sertraline HCL 25 MG TABLET 12.5 MG PO (19:38)
[2023-08-28 20:11] LABS: Glucose, Whole Blood 92 mg/dL (60-115)
[2023-08-28 23:12] VITALS: BP 105/66; PULSE 93; RESP 18; TEMP 36.3; O2SAT 96
[2023-08-29 07:30] VITALS: BP 116/74; PULSE 97; RESP 20; TEMP 36.1; O2SAT 95
[2023-08-29 08:16] LABS: Glucose, Whole Blood 88 mg/dL (60-115)
[2023-08-29] MEDS: Fluticasone Propionate Nasal 16 GM SPRAY 2 SPRAY NOSTRIL-B (08:27)
[2023-08-29] MEDS: Mineral Oil/Petrolatum,White 106 GM Tube 1 APPL TOPICAL ×2 (08:27→22:27)
[2023-08-29] MEDS: Nystatin Powder 15 GM BOTTLE 1 APPL TOPICAL ×2 (08:27→22:33)
[2023-08-29] MEDS: Hydrocortisone 1 % Cream 28.35 GM TUBE 1 APPL TOPICAL (08:27)
[2023-08-29] MEDS: Acetaminophen 325 MG TABLET 650 MG PO ×2 (08:31→22:28)
[2023-08-29] MEDS: ARIPiprazole 5 MG TABLET 2.5 MG PO (08:32)
[2023-08-29] MEDS: Lidocaine 4 % Patch ADH..PATCH 1 PATCH TRANSDERMA (08:32)
[2023-08-29] MEDS: Heparin Sodium,Porcine 5,000 UNIT/ML VIAL 5000 UNIT SUBCUT ×3 (08:32→22:36)
[2023-08-29] MEDS: Gabapentin 100 MG CAPSULE PO ×2 (08:32→22:27)
[2023-08-29] MEDS: polyethylene glycoL 3350 17 GM POWD.PACK PO (08:32)
--- NOTE | 2023-08-29 09:06 | HO.PM.IMPN ---
Subjective Subjective Date of Service: 08/29/23 Interval History: Being followed for acute kidney injury now on hemodialysis Offers no acute complaints, tolerating diet no nausea no vomiting or abdominal pain denies lightheadedness or dizziness, mostly in bed, no acute events overnight. Review of Systems All other system are reviewed and are negative. Physical Exam Vital Signs: Vital Signs: Last Vital Signs Temp 96.9 F 08/29/23 07:30 Pulse 97 08/29/23 07:30 Resp 20 08/29/23 07:30 BP 116/74 08/29/23 07:30 Pulse Ox 95 08/29/23 07:30 O2 Del Method Room Air 08/29/23 07:30 O2 Flow Rate 2 07/26/23 11:35 BMI result Body Mass Index 49.2 Const: Other: General awake alert x3, in no acute distress. Anicteric sclera Neck no JVD. CVS regular rate rhythm, Respiratory lungs clear to auscultation, no respiratory distress, no wheeze, no rhonchi. Gastrointestinal abdomen soft, non tender, bowel sounds audible. Extremities no edema. Right upper extremity : decreased range of motion right shoulder/no swelling or erythema. Neuro non focal, speech clear. Skin no rash Psych appropriate affect Objective Data Active Medications Acetaminophen (Acetaminophen 325 Mg Tablet) 650 mg PO Q4H PRN PRN Reason: Pain, Moderate(Pain Scale 4-6) Last Admin: 08/29/23 08:31 Dose: 650 mg Documented By: ANAT Aripiprazole (Aripiprazole 5 Mg Tablet) 2.5 mg PO DAILY [facility] Last Admin: 08/29/23 08:32 Dose: 2.5 mg Documented By: ANAT Fluticasone Propionate (Fluticasone Propionate Nasal 16 Gm [place]) 2 spray NOSTRIL-B DAILY [facility] Last Admin: 08/29/23 08:27 Dose: 2 spray Documented By: ANAT Gabapentin (Gabapentin 100 Mg Capsule) 100 mg PO BID [facility] Last Admin: 08/29/23 08:32 Dose: 100 mg Documented By: ANAT Heparin Sodium (Porcine) (Heparin Sodium,Porcine 5,000 Unit/Ml Vial) 5,000 unit SUBCUT TID [facility] Last Admin: 08/29/23 08:32 Dose: 5,000 unit Documented By: ANAT Hydrocortisone (Hydrocortisone 1 % Cream 28.35 Gm Tube) 1 appl TOPICAL DAILY [facility]; Protocol Last Admin: 08/29/23 08:27 Dose: 1 appl Documented By: ANAT Dextrose (D10) 250 mls @ 750 mls/hr IV Q15M PRN PRN Reason: per Hypoglycemia Standing Ord. Insulin Human Lispro (Insulin Lispro 100 Unit/Ml 3 Ml Vial) 0 unit SUBCUT QIDACHS [facility]; Protocol Last Admin: 08/29/23 08:24 Dose: Not Given Documented By: ANAT Non-Admin Reason: No Insulin Coverage Lidocaine (Lidocaine 4 % Patch Adh..Patch) 1 patch TRANSDERMA DAILY [facility] Last Admin: 08/29/23 08:32 Dose: 1 patch Documented By: ANAT Multi-Ingred Cream/Lotion/Oil/Oint (Mineral Oil/Petrolatum,White 106 Gm Tube) 1 appl TOPICAL BID [facility]; Protocol Last Admin: 08/29/23 08:27 Dose: 1 appl Documented By: ANAT Nystatin (Nystatin Powder 15 Gm Bottle) 1 appl TOPICAL BID [facility]; Protocol Last Admin: 08/29/23 08:27 Dose: 1 appl Documented By: ANAT Ondansetron HCl (Ondansetron Odt 4 Mg Tab.Rapdis) 4 mg TRANSLINGU Q6H PRN PRN Reason: Nausea and Vomiting Polyethylene Glycol (Polyethylene Glycol 3350 17 Gm Powd.Pack) 17 gm PO DAILY [facility] Last Admin: 08/29/23 08:32 Dose: 17 gm Documented By: ANAT Sertraline HCl (Sertraline Hcl 25 Mg Tablet) 12.5 mg PO BEDTIME [facility] Last Admin: 08/28/23 19:38 Dose: 12.5 mg Documented By: SANTOSH Trazodone HCl (Trazodone Hcl 25 Mg Halftab) 25 mg PO BEDTIME [facility] Last Admin: 08/28/23 19:37 Dose: 25 mg Documented By: SANTOSH Labs 08/23/23 06:58 08/23/23 06:58 Labs: Laboratory Results - last 24 hr 08/28/23 08/28/23 08/28/23 11:45 16:30 20:07 POC Glucose 110 81 92 08/29/23 07:33 POC Glucose 88 Assessment and Plan (1) Need for acute hemodialysis: Status: Acute Plan 53 years old male with PMH of DM2, HTN, Asthma who presented to ED After sustaining a fall and laying on the floor for 9 hours found to have severe acute kidney injury from rhabdomyolysis and hyperkalemia CHITO and severe hyperkalemia and acute metabolic acidosis due to ATN from rhabdomyolysis and no renal recovery and started on HD, TTS, permacath placed 07/16/23. Check BMP Continue dialysis per nephrology MWF Has outpatient dialysis spot at [place] dialysis upon discharge Chronic Leg and back pain Stable, continue gabapentin 100mg BID Depression. unspecified No behavioral issues, seen by psychiatry 08/23, they recommended decrease dose of Abilify to 2.5 mg daily ,since it can cause orthostasis, decrease dose of trazodone to 25 mg at bedtime and Zoloft low-dose added continue to encourage participation in PT Hypotension. Resolved post dialysis, not due to sepsis Resume Midodrine days of dialysis as needed Had an episode of hypotension 07/25, psychiatric medications adjusted continue midodrine, stable blood pressure/intermittent lightheadedness/dizziness in sitting position likely due to deconditioning strongly recommend out of bed to chair daily. Sinus tachycardia Heart rate significantly improved,no hypoxia Echocardiogram with preserved EF, TSH wnl, has been on dvt pptx - so low suspicion for PE likely related to deconditioning Physical deconditioning PT following Oob to chair and ambulation with physical therapy. Encourage bilateral upper and lower extremity exercises Acute?Rhabdomyolysis 2/2 fall and long stay on floor. resolved no evidence of compartment syndrome at any point, persistent right upper extremity decreased range of motion and pain, encourage range of motion activity, seen by OT they recommend short-term rehab, recommend range of motion exercises. Elevated troponin on admission outpatient ischemic work up per cardiology team Acute lactic acidosis, resolved in the setting of rhabdo and renal failure not due to severe sepsis chest pain resolved negative work up hx of substance abuse off suboxone since admission Diabetes ss, ada diet Morbid Obesity. BMI 49.2 Low-calorie diet/ weight management as this may be contributing to worsening of other comorbidities DVT PPx Heparin reason for continued hospitalization: debilitated / depressed, safe discharge to short-term rehab. Quality Stroke Does the patient have a stroke diagnosis?: No VTE Prior VTE?: No VTE Risk Level:: Medical - moderate - high VTE Device Contraindication: N/A - Device Ordered VTE Drug Contraindication: N/A - Med Ordered
[2023-08-29 10:56] LABS: Glucose, Whole Blood 108 mg/dL (60-115)
[2023-08-29 15:35] VITALS: BP 114/77; PULSE 95; RESP 16; TEMP 36; O2SAT 94
[2023-08-29 16:44] LABS: Glucose, Whole Blood 103 mg/dL (60-115)
[2023-08-29 20:41] LABS: Glucose, Whole Blood 109 mg/dL (60-115)
[2023-08-29 22:06] LABS: Glucose, Whole Blood 102 mg/dL (60-115)
[2023-08-29] MEDS: traZODone HCL 25 MG HALFTAB PO (22:27)
[2023-08-29] MEDS: Sertraline HCL 25 MG TABLET 12.5 MG PO (22:27)
[2023-08-29 23:08] VITALS: BP 98/66; PULSE 98; RESP 18; TEMP 36.2; O2SAT 96
[2023-08-30 06:59] LABS: Glucose, Whole Blood 83 mg/dL (60-115)
[2023-08-30 07:13] VITALS: BP 113/73; PULSE 93; RESP 20; TEMP 36.5; O2SAT 95
[2023-08-30 09:28] LABS: Anion Gap 22 (12-20); Blood Urea Nitrogen 70 mg/dL (9-16); Calcium 10.3 mg/dL (8.4-10.2); Carbon Dioxide 19 mmol/L (22-29); Chloride 99 mmol/L (96-108); Creatinine Clr Calc Pharmacy 11.7; Estimated Glomerular Filt Rate 5; Glucose Random 105 mg/dL (60-115); Potassium 4.8 mmol/L (3.3-5.1); Sodium 135 mmol/L (135-145)
--- NOTE | 2023-08-30 09:29 | P.PNIM_ITS ---
Subjective Subjective Date of Service: 08/30/23 Interval History: Being followed for placement Seen at hemodialysis, offers no acute complaints blood pressure is stable, no behavioral issues, no acute events. Review of Systems All other system are reviewed and are negative. Physical Exam 2 Vital Signs: Vital Signs: Last Vital Signs Temp 97.7 F 08/30/23 07:13 Pulse 93 08/30/23 07:13 Resp 20 08/30/23 07:13 BP 113/73 08/30/23 07:13 Pulse Ox 95 08/30/23 07:13 O2 Del Method Room Air 08/30/23 07:13 O2 Flow Rate 2 07/26/23 11:35 BMI result Body Mass Index 49.2 Const: Other: General awake alert x3, in no acute distress. Anicteric sclera Neck no JVD. CVS regular rate rhythm, Respiratory lungs clear to auscultation, no respiratory distress, no wheeze, no rhonchi. Gastrointestinal abdomen soft, non tender, bowel sounds audible. Extremities no edema. Right upper extremity : decreased range of motion right shoulder/no swelling or erythema. Neuro non focal, speech clear. Skin no rash Psych appropriate affect Objective Data Active Medications Acetaminophen (Acetaminophen 325 Mg Tablet) 650 mg PO Q4H PRN PRN Reason: Pain, Moderate(Pain Scale 4-6) Last Admin: 08/29/23 22:28 Dose: 650 mg Documented By: KOMAL Aripiprazole (Aripiprazole 5 Mg Tablet) 2.5 mg PO DAILY [facility] Last Admin: 08/29/23 08:32 Dose: 2.5 mg Documented By: ANAT Fluticasone Propionate (Fluticasone Propionate Nasal 16 Gm [place]) 2 spray NOSTRIL-B DAILY [facility] Last Admin: 08/29/23 08:27 Dose: 2 spray Documented By: ANAT Gabapentin (Gabapentin 100 Mg Capsule) 100 mg PO BID [facility] Last Admin: 08/29/23 22:27 Dose: 100 mg Documented By: KOMAL Heparin Sodium (Porcine) (Heparin Sodium,Porcine 5,000 Unit/Ml Vial) 5,000 unit SUBCUT TID [facility] Last Admin: 08/29/23 22:36 Dose: 5,000 unit Documented By: KOMAL Hydrocortisone (Hydrocortisone 1 % Cream 28.35 Gm Tube) 1 appl TOPICAL DAILY [facility]; Protocol Last Admin: 08/29/23 08:27 Dose: 1 appl Documented By: ANAT Dextrose (D10) 250 mls @ 750 mls/hr IV Q15M PRN PRN Reason: per Hypoglycemia Standing Ord. Insulin Human Lispro (Insulin Lispro 100 Unit/Ml 3 Ml Vial) 0 unit SUBCUT QIDACHS [facility]; Protocol Last Admin: 08/30/23 08:13 Dose: Not Given Documented By: ANAT Non-Admin Reason: No Insulin Coverage Lidocaine (Lidocaine 4 % Patch Adh..Patch) 1 patch TRANSDERMA DAILY [facility] Last Admin: 08/29/23 08:32 Dose: 1 patch Documented By: ANAT Multi-Ingred Cream/Lotion/Oil/Oint (Mineral Oil/Petrolatum,White 106 Gm Tube) 1 appl TOPICAL BID [facility]; Protocol Last Admin: 08/29/23 22:27 Dose: 1 appl Documented By: KOMAL Comments: buttocks and bilateral arms and back Nystatin (Nystatin Powder 15 Gm Bottle) 1 appl TOPICAL BID [facility]; Protocol Last Admin: 08/29/23 22:33 Dose: 1 appl Documented By: KOMAL Comments: perineum Ondansetron HCl (Ondansetron Odt 4 Mg Tab.Rapdis) 4 mg TRANSLINGU Q6H PRN PRN Reason: Nausea and Vomiting Polyethylene Glycol (Polyethylene Glycol 3350 17 Gm Powd.Pack) 17 gm PO DAILY [facility] Last Admin: 08/29/23 08:32 Dose: 17 gm Documented By: ANAT Sertraline HCl (Sertraline Hcl 25 Mg Tablet) 12.5 mg PO BEDTIME [facility] Last Admin: 08/29/23 22:27 Dose: 12.5 mg Documented By: KOMAL Trazodone HCl (Trazodone Hcl 25 Mg Halftab) 25 mg PO BEDTIME [facility] Last Admin: 08/29/23 22:27 Dose: 25 mg Documented By: KOMAL Labs 08/23/23 06:58 08/30/23 08:15 Labs: Laboratory Results - last 24 hr 08/29/23 08/29/23 08/29/23 10:51 16:40 20:36 Anion Gap Estim Creat Clear Calc Estimated GFR POC Glucose 108 103 109 Random Glucose Calcium 08/29/23 08/30/23 08/30/23 22:02 06:56 08:15 Anion Gap 22 H Estim Creat Clear Calc 11.7 Estimated GFR 5 POC Glucose 102 83 Random Glucose 105 Calcium 10.3 H Assessment and Plan (1) Need for acute hemodialysis: Status: Acute Plan 53 years old male with PMH of DM2, HTN, Asthma who presented to ED After sustaining a fall and laying on the floor for 9 hours found to have severe acute kidney injury from rhabdomyolysis and hyperkalemia CHITO and severe hyperkalemia and acute metabolic acidosis due to ATN from rhabdomyolysis and no renal recovery and started on HD, TTS, permacath placed 07/16/23. BMP showed bicarb 19, BUN 70 and creatinine 10.39, will discuss labs with Nephrology. Continue dialysis per nephrology MWF Has outpatient dialysis spot at [place] dialysis upon discharge Anion gap metabolic acidosis likely due to renal failure Will discuss treatment plan with Nephrology, bicarb 24 on August 17, dropped to 19. Chronic Leg and back pain Stable, continue gabapentin 100mg BID Depression. unspecified No behavioral issues, seen by psychiatry 08/23, they recommended decrease dose of Abilify to 2.5 mg daily ,since it can cause orthostasis, decrease dose of trazodone to 25 mg at bedtime and Zoloft low-dose added continue to encourage participation in PT Hypotension. Resolved post dialysis, not due to sepsis Added Midodrine 5 mg on hemodialysis days Wednesday and Wednesday Had an episode of hypotension 07/25, psychiatric medications adjusted , stable blood pressure/intermittent lightheadedness/dizziness in sitting position likely due to deconditioning ,strongly recommend out of bed to chair daily. Sinus tachycardia Heart rate significantly improved,no hypoxia Echocardiogram with preserved EF, TSH wnl, has been on dvt pptx - so low suspicion for PE likely related to deconditioning Physical deconditioning PT following Oob to chair and ambulation with physical therapy. Encourage bilateral upper and lower extremity exercises Acute?Rhabdomyolysis 2/2 fall and long stay on floor. resolved no evidence of compartment syndrome at any point, persistent right upper extremity decreased range of motion and pain, encourage range of motion activity, seen by OT they recommend short-term rehab, recommend range of motion exercises. Elevated troponin on admission outpatient ischemic work up per cardiology team Acute lactic acidosis, resolved in the setting of rhabdo and renal failure not due to severe sepsis chest pain resolved negative work up hx of substance abuse off suboxone since admission Diabetes stable blood sugars, hemoglobin A1c 6.1 12/31, will DC insulin sliding scale and blood sugar monitoring, continue diabetic diet. Morbid Obesity. BMI 49.2 Low-calorie diet/ weight management as this may be contributing to worsening of other comorbidities DVT PPx Heparin reason for continued hospitalization: debilitated / depressed, safe discharge to short-term rehab. Quality Stroke Does the patient have a stroke diagnosis?: No VTE Prior VTE?: No VTE Risk Level:: Medical - moderate - high VTE Device Contraindication: N/A - Device Ordered VTE Drug Contraindication: N/A - Med Ordered
[2023-08-30 12:59] LABS: Glucose, Whole Blood 96 mg/dL (60-115)
[2023-08-30] MEDS: Gabapentin 100 MG CAPSULE PO ×2 (13:02→21:06)
[2023-08-30] MEDS: ARIPiprazole 5 MG TABLET 2.5 MG PO (13:02)
[2023-08-30] MEDS: Acetaminophen 325 MG TABLET 650 MG PO ×2 (13:02→21:06)
[2023-08-30 13:04] VITALS: BP 99/61; PULSE 109; RESP 20; TEMP 36.1; O2SAT 96
--- NOTE | 2023-08-30 13:25 | MHC.CM.PN ---
EMR reviewed and per MD rounds, pt remains medically cleared for discharge pending STR placement with new HD slot, STR referral updated, no STR bed offers.
[2023-08-30 15:24] VITALS: BP 115/64; PULSE 100; RESP 16; TEMP 36.2; O2SAT 96
[2023-08-30] MEDS: Heparin Sodium,Porcine 5,000 UNIT/ML VIAL 5000 UNIT SUBCUT ×2 (16:22→21:05)
[2023-08-30] MEDS: Sertraline HCL 25 MG TABLET 12.5 MG PO (21:06)
[2023-08-30] MEDS: traZODone HCL 25 MG HALFTAB PO (21:06)
[2023-08-30] MEDS: Mineral Oil/Petrolatum,White 106 GM Tube 1 APPL TOPICAL (21:07)
[2023-08-30] MEDS: Nystatin Powder 15 GM BOTTLE 1 APPL TOPICAL (21:07)
[2023-08-31] VITALS: BP 103/66; PULSE 99; RESP 20; TEMP 36.2; O2SAT 97
[2023-08-31 06:55] LABS: Glucose, Whole Blood 88 mg/dL (60-115)
[2023-08-31 07:06] VITALS: BP 108/71; PULSE 102; RESP 20; TEMP 36.2; O2SAT 95
[2023-08-31] MEDS: ARIPiprazole 5 MG TABLET 2.5 MG PO (08:23)
[2023-08-31] MEDS: Gabapentin 100 MG CAPSULE PO ×2 (08:23→21:58)
[2023-08-31] MEDS: Heparin Sodium,Porcine 5,000 UNIT/ML VIAL 5000 UNIT SUBCUT ×3 (08:23→21:57)
[2023-08-31] MEDS: Lidocaine 4 % Patch ADH..PATCH 1 PATCH TRANSDERMA (08:24)
[2023-08-31] MEDS: Hydrocortisone 1 % Cream 28.35 GM TUBE 1 APPL TOPICAL (08:29)
[2023-08-31] MEDS: Nystatin Powder 15 GM BOTTLE 1 APPL TOPICAL ×2 (08:29→22:03)
[2023-08-31] MEDS: Fluticasone Propionate Nasal 16 GM SPRAY 2 SPRAY NOSTRIL-B (08:29)
[2023-08-31] MEDS: Mineral Oil/Petrolatum,White 106 GM Tube 1 APPL TOPICAL ×2 (08:30→21:58)
--- NOTE | 2023-08-31 08:47 | HO.PM.IMPN ---
Subjective Subjective Date of Service: 08/31/23 Interval History: Being followed for placement. Offers no acute complaints, eating breakfast denies nausea, no vomiting, no abdominal pain or diarrhea, tolerating hemodialysis, no acute events overnight. Review of Systems All other systems are reviewed and are negative. Physical Exam Vital Signs: Vital Signs: Last Vital Signs Temp 97.1 F 08/31/23 07:06 Pulse 102 H 08/31/23 07:06 Resp 20 08/31/23 07:06 BP 108/71 08/31/23 07:06 Pulse Ox 95 08/31/23 07:06 O2 Del Method Room Air 08/31/23 07:06 O2 Flow Rate 2 07/26/23 11:35 BMI result Body Mass Index 49.2 Const: Other: General awake alert x3, in no acute distress. Anicteric sclera Neck no JVD. CVS regular rate rhythm, Respiratory lungs clear to auscultation, no respiratory distress, no wheeze, no rhonchi. Gastrointestinal abdomen soft, non tender, bowel sounds audible. Extremities no edema. Right upper extremity : decreased range of motion right shoulder/no swelling or erythema. Neuro non focal, speech clear. Skin no rash Psych appropriate affect Objective Data Active Medications Acetaminophen (Acetaminophen 325 Mg Tablet) 650 mg PO Q4H PRN PRN Reason: Pain, Moderate(Pain Scale 4-6) Last Admin: 08/30/23 21:06 Dose: 650 mg Documented By: KOMAL Aripiprazole (Aripiprazole 5 Mg Tablet) 2.5 mg PO DAILY [facility] Last Admin: 08/31/23 08:23 Dose: 2.5 mg Documented By: KARLA Fluticasone Propionate (Fluticasone Propionate Nasal 16 Gm [place]) 2 spray NOSTRIL-B DAILY [facility] Last Admin: 08/31/23 08:29 Dose: 2 spray Documented By: KARLA Gabapentin (Gabapentin 100 Mg Capsule) 100 mg PO BID [facility] Last Admin: 08/31/23 08:23 Dose: 100 mg Documented By: KARLA Heparin Sodium (Porcine) (Heparin Sodium,Porcine 5,000 Unit/Ml Vial) 5,000 unit SUBCUT TID [facility] Last Admin: 08/31/23 08:23 Dose: 5,000 unit Documented By: KARLA Hydrocortisone (Hydrocortisone 1 % Cream 28.35 Gm Tube) 1 appl TOPICAL DAILY [facility]; Protocol Last Admin: 08/31/23 08:29 Dose: 1 appl Documented By: KARLA Dextrose (D10) 250 mls @ 750 mls/hr IV Q15M PRN PRN Reason: per Hypoglycemia Standing Ord. Lidocaine (Lidocaine 4 % Patch Adh..Patch) 1 patch TRANSDERMA DAILY [facility] Last Admin: 08/31/23 08:24 Dose: 1 patch Documented By: KARLA Midodrine (Midodrine Hcl 5 Mg Tablet) 5 mg PO DIALYSIS X3 MOWEFR PRN PRN Reason: sbp<90 Multi-Ingred Cream/Lotion/Oil/Oint (Mineral Oil/Petrolatum,White 106 Gm Tube) 1 appl TOPICAL BID [facility]; Protocol Last Admin: 08/31/23 08:30 Dose: 1 appl Documented By: KARLA Nystatin (Nystatin Powder 15 Gm Bottle) 1 appl TOPICAL BID [facility]; Protocol Last Admin: 08/31/23 08:29 Dose: 1 appl Documented By: KARLA Ondansetron HCl (Ondansetron Odt 4 Mg Tab.Rapdis) 4 mg TRANSLINGU Q6H PRN PRN Reason: Nausea and Vomiting Polyethylene Glycol (Polyethylene Glycol 3350 17 Gm Powd.Pack) 17 gm PO DAILY [facility] Last Admin: 08/31/23 08:24 Dose: Not Given Documented By: KARLA Non-Admin Reason: Patient Refused Sertraline HCl (Sertraline Hcl 25 Mg Tablet) 12.5 mg PO BEDTIME [facility] Last Admin: 08/30/23 21:06 Dose: 12.5 mg Documented By: KOMAL Trazodone HCl (Trazodone Hcl 25 Mg Halftab) 25 mg PO BEDTIME [facility] Last Admin: 08/30/23 21:06 Dose: 25 mg Documented By: KOMAL Labs 08/23/23 06:58 08/30/23 08:15 Labs: Laboratory Results - last 24 hr 08/30/23 08/30/23 08/31/23 08:15 12:56 06:51 Anion Gap 22 H Estim Creat Clear Calc 11.7 Estimated GFR 5 POC Glucose 96 88 Random Glucose 105 Calcium 10.3 H Assessment and Plan (1) Need for acute hemodialysis: Status: Acute Plan 53 years old male with PMH of DM2, HTN, Asthma who presented to ED After sustaining a fall and laying on the floor for 9 hours found to have severe acute kidney injury from rhabdomyolysis and hyperkalemia CHITO and severe hyperkalemia and acute metabolic acidosis due to ATN from rhabdomyolysis and no renal recovery and started on HD, TTS, permacath placed 07/16/23. receiving dialysis MWF Follow labs Has outpatient dialysis spot at [place] dialysis upon discharge Anion gap metabolic acidosis likely due to renal failure, no further workup or follow-up as per Nephrology. Chronic Leg and back pain Stable, continue gabapentin 100mg BID Depression. unspecified No behavioral issues, seen by psychiatry 08/23, they recommended decrease dose of Abilify to 2.5 mg daily ,since it can cause orthostasis, decrease dose of trazodone to 25 mg at bedtime and Zoloft low-dose added continue to encourage participation in PT Hypotension. Resolved post dialysis, not due to sepsis Added Midodrine 5 mg prn on hemodialysis days Wednesday and Wednesday Had an episode of hypotension 07/25, psychiatric medications adjusted , stable blood pressure/intermittent lightheadedness/dizziness in sitting position likely due to deconditioning ,strongly recommend out of bed to chair daily. Sinus tachycardia Heart rate significantly improved,no hypoxia Echocardiogram with preserved EF, TSH wnl, has been on dvt pptx - so low suspicion for PE likely related to deconditioning being followed by PT Acute?Rhabdomyolysis 2/2 fall and long stay on floor. resolved no evidence of compartment syndrome at any point, persistent right upper extremity decreased range of motion and pain, encourage range of motion activity, seen by OT they recommend short-term rehab Elevated troponin on admission/chest pain. outpatient ischemic work up per cardiology team. hx of substance abuse off suboxone since admission Diabetes stable blood sugars, hemoglobin A1c 6.1 12/31, will DC insulin sliding scale and blood sugar monitoring, continue diabetic diet. Morbid Obesity. BMI 49.2 Low-calorie diet/ weight management as this may be contributing to worsening of other comorbidities DVT PPx Heparin reason for continued hospitalization: debilitated / depressed, safe discharge to short-term rehab. Quality Stroke Does the patient have a stroke diagnosis?: No VTE Prior VTE?: No VTE Risk Level:: Medical - moderate - high VTE Device Contraindication: N/A - Device Ordered VTE Drug Contraindication: N/A - Med Ordered
[2023-08-31 11:11] LABS: Glucose, Whole Blood 117 mg/dL (60-115)
--- NOTE | 2023-08-31 12:45 | P.PNNP_ITS ---
Subjective Subjective Date of Service: 09/02/23 Principal diagnosis: Elevated troponins Interval history: Being followed for placement. Offers no acute complaints, eating breakfast denies nausea, no vomiting, no abdominal pain or diarrhea, tolerating hemodialysis, no acute events overnight. Physical Exam 2 Vital Signs: Vital Signs: Last Vital Signs Temp 97.1 F 08/31/23 07:06 Pulse 102 H 08/31/23 07:06 Resp 20 08/31/23 07:06 BP 108/71 08/31/23 07:06 Pulse Ox 95 08/31/23 07:06 O2 Del Method Room Air 08/31/23 07:06 O2 Flow Rate 2 07/26/23 11:35 BMI result Body Mass Index 49.2 Const: Other: Constitutional : Awake, morbidly obese, frail looking, not in distress Neck : Normal inspection, Supple Cardiovascular : RRR, no JVP, bilateral lower extremity edema Respiratory : good bilateral air entry, no crackles, no wheezes or rhonchi Gastrointestinal: soft, lax, Non tender Skin : Warm, Dry, Permacath in place Neurological : Alert & oriented, No focal deficit Objective Data Labs 08/23/23 06:58 08/30/23 08:15 Labs: Laboratory Results - last 24 hr 08/30/23 08/31/23 08/31/23 12:56 06:51 11:07 POC Glucose 96 88 117 H Microbiology Microbiology Results: Microbiology 07/20/23 22:49 Blood - Venous Blood Culture - Final No growth after 5 days. 07/20/23 22:49 Blood - Venous Blood Culture - Final No growth after 5 days. 07/12/23 12:30 Blood - Venous Blood Culture - Final No growth after 5 days. 07/12/23 12:15 Blood - Venous Blood Culture - Final No growth after 5 days. 07/12/23 Unknown Urine Catheterized - Straight Catheter Urine Culture - Final No growth. Procedures Date of Service Date of Service: 09/02/23 Assessment & Plan Assessment and plan (1) Acute renal failure: Status: Acute Plan CHITO and severe hyperkalemia due to rhabdomyolysis. He has tubular injury due to rhabdomyolysis. Hyperkalemia At this point he has no signs of renal recovery yet. Watch urine output HD 3 times a week On schedule for dialysis - MWF Rash: Allergic- resolve Permcath exit site is clean He has an outpatient dialysis spot at [facility]. Time Spent With Patient Time: Total time managing care of this patient today ____ minutes. Progress Note: Quality Stroke Does the patient have a stroke diagnosis?: No
[2023-08-31 16:00] VITALS: BP 110/71; PULSE 99; RESP 20; TEMP 37; O2SAT 96
[2023-08-31 17:07] LABS: Glucose, Whole Blood 119 mg/dL (60-115)
[2023-08-31] MEDS: Acetaminophen 325 MG TABLET 650 MG PO (21:58)
[2023-08-31] MEDS: Sertraline HCL 25 MG TABLET 12.5 MG PO (21:58)
[2023-08-31] MEDS: traZODone HCL 25 MG HALFTAB PO (21:58)
[2023-08-31 23:44] VITALS: BP 99/63; PULSE 96; RESP 18; TEMP 36.1; O2SAT 95
--- NOTE | 2023-09-01 11:06 | MHC.CM.PN ---
PT is documenting s/s of improved motivation with PT and STR is the recommendation; CM has updated extensive SNF search referrals.
[2023-09-01] MEDS: Gabapentin 100 MG CAPSULE PO ×2 (11:11→20:30)
[2023-09-01] MEDS: ARIPiprazole 5 MG TABLET 2.5 MG PO (11:11)
[2023-09-01] MEDS: Acetaminophen 325 MG TABLET 650 MG PO (11:12)
[2023-09-01] MEDS: Lidocaine 4 % Patch ADH..PATCH 1 PATCH TRANSDERMA (11:12)
[2023-09-01] MEDS: polyethylene glycoL 3350 17 GM POWD.PACK PO (11:12)
[2023-09-01 11:14] VITALS: BP 101/52; PULSE 115; RESP 20; TEMP 36.3; O2SAT 99
[2023-09-01] MEDS: Fluticasone Propionate Nasal 16 GM SPRAY 2 SPRAY NOSTRIL-B (11:14)
--- NOTE | 2023-09-01 13:33 | MHC.CM.PN ---
CM spoke with Patient's Sister/HCP/Moraima. Sister was asking if CM could assist with Patient paying his rent (Patient has the hartley, per Sister, but would need the hartley to get a money order to deliver the rent check). CM explained that hospital employees are not allowed to get involved with the handling of Patient's hartley and personal finances. Sister also inquired if the hospital keeps a log of visitors that Patients receives (she stated she was told Patient had a visitor and she wanted to be sure there were no negative transactions ). Sister stated she was going to reach out to Patient's [employer]om Boss to see if he can assist with getting Patient's rent paid. CM will follow.
--- NOTE | 2023-09-01 13:50 | P.PNNP_ITS ---
Subjective Subjective Date of Service: 09/01/23 Principal diagnosis: Elevated troponins Interval history: Seen on hemodialysis this morning. tolerating hemodialysis, no acute events overnight. Blood pressure on the lower side. Discussed with dialysis nurse Physical Exam 2 Vital Signs: Vital Signs: Last Vital Signs Temp 97.3 F 09/01/23 11:14 Pulse 115 H 09/01/23 11:14 Resp 20 09/01/23 11:14 BP 101/52 L 09/01/23 11:14 Pulse Ox 99 09/01/23 11:14 O2 Del Method Room Air 09/01/23 11:14 O2 Flow Rate 2 07/26/23 11:35 BMI result Body Mass Index 49.2 Const: General: comfortable Orientation/consciousness: patient oriented x3 Eyes: EOM: EOMs intact bilaterally Neck: Neck: Yes supple Resp: Auscultation: diminished lung sounds Cardio: Rate: regular rate GI: Palpation (GI): Soft to palpation Neuro: General: patient oriented x3 and moves all extremities Objective Data Labs 08/23/23 06:58 08/30/23 08:15 Labs: Laboratory Results - last 24 hr 08/31/23 17:02 POC Glucose 119 H Microbiology Microbiology Results: Microbiology 07/20/23 22:49 Blood - Venous Blood Culture - Final No growth after 5 days. 07/20/23 22:49 Blood - Venous Blood Culture - Final No growth after 5 days. 07/12/23 12:30 Blood - Venous Blood Culture - Final No growth after 5 days. 07/12/23 12:15 Blood - Venous Blood Culture - Final No growth after 5 days. 07/12/23 Unknown Urine Catheterized - Straight Catheter Urine Culture - Final No growth. 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 Has an outpt HD spot in [place] HD unit Monitor function for renal recovery; C/W rest of current management Progress Note: Quality Stroke Does the patient have a stroke diagnosis?: No
--- NOTE | 2023-09-01 14:33 | HO.PM.IMPN ---
Subjective Subjective Date of Service: 09/01/23 Interval History: No acute issues overnight. Remains tolerant of HD Review of Systems Denies chest pain Denies shortness of breath Denies nausea vomiting diarrhea Denies fever chills Physical Exam Vital Signs: Vital Signs: Last Vital Signs Temp 97.3 F 09/01/23 11:14 Pulse 115 H 09/01/23 11:14 Resp 20 09/01/23 11:14 BP 101/52 L 09/01/23 11:14 Pulse Ox 99 09/01/23 11:14 O2 Del Method Room Air 09/01/23 11:14 O2 Flow Rate 2 07/26/23 11:35 BMI result Body Mass Index 49.2 Objective Data Active Medications Acetaminophen (Acetaminophen 325 Mg Tablet) 650 mg PO Q4H PRN PRN Reason: Pain, Moderate(Pain Scale 4-6) Last Admin: 09/01/23 11:12 Dose: 650 mg Documented By: ANAT Aripiprazole (Aripiprazole 5 Mg Tablet) 2.5 mg PO DAILY [facility] Last Admin: 09/01/23 11:11 Dose: 2.5 mg Documented By: ANAT Fluticasone Propionate (Fluticasone Propionate Nasal 16 Gm [place]) 2 spray NOSTRIL-B DAILY [facility] Last Admin: 09/01/23 11:14 Dose: 2 spray Documented By: ANAT Gabapentin (Gabapentin 100 Mg Capsule) 100 mg PO BID [facility] Last Admin: 09/01/23 11:11 Dose: 100 mg Documented By: ANAT Heparin Sodium (Porcine) (Heparin Sodium,Porcine 5,000 Unit/Ml Vial) 5,000 unit SUBCUT TID [facility] Last Admin: 09/01/23 07:02 Dose: Not Given Documented By: ANAT Non-Admin Reason: Off unit: Dialysis Hydrocortisone (Hydrocortisone 1 % Cream 28.35 Gm Tube) 1 appl TOPICAL DAILY [facility]; Protocol Last Admin: 09/01/23 08:58 Dose: Not Given Documented By: ANAT Non-Admin Reason: Off unit: Dialysis Dextrose (D10) 250 mls @ 750 mls/hr IV Q15M PRN PRN Reason: per Hypoglycemia Standing Ord. Lidocaine (Lidocaine 4 % Patch Adh..Patch) 1 patch TRANSDERMA DAILY [facility] Last Admin: 09/01/23 11:12 Dose: 1 patch Documented By: ANAT Midodrine (Midodrine Hcl 5 Mg Tablet) 5 mg PO DIALYSIS X3 MOWEFR PRN PRN Reason: sbp<90 Multi-Ingred Cream/Lotion/Oil/Oint (Mineral Oil/Petrolatum,White 106 Gm Tube) 1 appl TOPICAL BID [facility]; Protocol Last Admin: 09/01/23 08:58 Dose: Not Given Documented By: ANAT Non-Admin Reason: Off unit: Dialysis Nystatin (Nystatin Powder 15 Gm Bottle) 1 appl TOPICAL BID [facility]; Protocol Last Admin: 09/01/23 08:58 Dose: Not Given Documented By: ANAT Non-Admin Reason: Off unit: Dialysis Ondansetron HCl (Ondansetron Odt 4 Mg Tab.Rapdis) 4 mg TRANSLINGU Q6H PRN PRN Reason: Nausea and Vomiting Polyethylene Glycol (Polyethylene Glycol 3350 17 Gm Powd.Pack) 17 gm PO DAILY [facility] Last Admin: 09/01/23 11:12 Dose: 17 gm Documented By: ANAT Sertraline HCl (Sertraline Hcl 25 Mg Tablet) 12.5 mg PO BEDTIME [facility] Last Admin: 08/31/23 21:58 Dose: 12.5 mg Documented By: FRANK Trazodone HCl (Trazodone Hcl 25 Mg Halftab) 25 mg PO BEDTIME [facility] Last Admin: 08/31/23 21:58 Dose: 25 mg Documented By: FRANK Labs 08/23/23 06:58 08/30/23 08:15 Labs: Laboratory Results - last 24 hr 08/31/23 17:02 POC Glucose 119 H Assessment and Plan (1) Acute renal failure: Status: Acute Plan 53 years old male with PMH of DM2, HTN, Asthma who presented to ED After sustaining a fall and laying on the floor for 9 hours found to have severe acute kidney injury from rhabdomyolysis and hyperkalemia 1.CHITO and severe hyperkalemia and acute metabolic acidosis due to ATN from rhabdomyolysis and no renal recovery and started on HD, TTS, -permacath placed 07/16/23. -receiving dialysis MWF -follow renals/divalents 2.Chronic Leg and back pain Stable, continue gabapentin 100mg BID 3.Depression. unspecified -No behavioral issues, seen by psychiatry 08/23, they recommended decrease dose of Abilify to 2.5 mg daily ,since it can cause orthostasis, decrease dose of trazodone to 25 mg at bedtime and Zoloft low-dose added -continue to encourage participation in PT 4.Acute?Rhabdomyolysis -resolved with volume -follow clinically 5.Diabetes type 2 -acceptable control on current therapies -lispro correctional scale -adjust as indicated Heparin Full code reason for continued hospitalization: debilitated / depressed, safe discharge to short-term rehab. Quality Stroke Does the patient have a stroke diagnosis?: No VTE Prior VTE?: No VTE Risk Level:: Medical - moderate - high VTE Device Contraindication: N/A - Device Ordered VTE Drug Contraindication: N/A - Med Ordered
[2023-09-01 16:00] VITALS: BP 97/56; PULSE 111; RESP 18; TEMP 36.7; O2SAT 96
[2023-09-01] MEDS: Heparin Sodium,Porcine 5,000 UNIT/ML VIAL 5000 UNIT SUBCUT ×2 (16:04→20:30)
[2023-09-01] MEDS: traZODone HCL 25 MG HALFTAB PO (20:30)
[2023-09-01] MEDS: Sertraline HCL 25 MG TABLET 12.5 MG PO (20:30)
[2023-09-01] MEDS: Nystatin Powder 15 GM BOTTLE 1 APPL TOPICAL (20:32)
[2023-09-01] MEDS: Mineral Oil/Petrolatum,White 106 GM Tube 1 APPL TOPICAL (20:32)
[2023-09-01 23:45] VITALS: BP 121/62; PULSE 100; RESP 18; TEMP 36.2; O2SAT 98
[2023-09-02 07:54] VITALS: BP 99/70; PULSE 113; RESP 20; TEMP 36.3; O2SAT 96
[2023-09-02] MEDS: ARIPiprazole 5 MG TABLET 2.5 MG PO (08:00)
[2023-09-02] MEDS: Gabapentin 100 MG CAPSULE PO ×2 (08:00→20:34)
[2023-09-02] MEDS: Heparin Sodium,Porcine 5,000 UNIT/ML VIAL 5000 UNIT SUBCUT ×3 (08:00→20:35)
[2023-09-02] MEDS: Lidocaine 4 % Patch ADH..PATCH 1 PATCH TRANSDERMA (08:01)
[2023-09-02] MEDS: Nystatin Powder 15 GM BOTTLE 1 APPL TOPICAL ×2 (08:05→20:37)
[2023-09-02] MEDS: Mineral Oil/Petrolatum,White 106 GM Tube 1 APPL TOPICAL (08:06)
[2023-09-02] MEDS: Fluticasone Propionate Nasal 16 GM SPRAY 2 SPRAY NOSTRIL-B (08:06)
[2023-09-02] MEDS: Hydrocortisone 1 % Cream 28.35 GM TUBE 1 APPL TOPICAL (08:06)
--- NOTE | 2023-09-02 14:43 | P.PNIM_ITS ---
Subjective Subjective Date of Service: 09/02/23 Interval History: No acute issues overnight Review of Systems Denies chest pain Denies shortness of breath Denies nausea vomiting diarrhea Denies fever chills Physical Exam 2 Vital Signs: Vital Signs: Last Vital Signs Temp 97.3 F 09/02/23 07:54 Pulse 113 H 09/02/23 07:54 Resp 20 09/02/23 07:54 BP 99/70 09/02/23 07:54 Pulse Ox 96 09/02/23 07:54 O2 Del Method Room Air 09/02/23 07:54 O2 Flow Rate 2 07/26/23 11:35 BMI result Body Mass Index 49.2 Objective Data Active Medications Acetaminophen (Acetaminophen 325 Mg Tablet) 650 mg PO Q4H PRN PRN Reason: Pain, Moderate(Pain Scale 4-6) Last Admin: 09/01/23 11:12 Dose: 650 mg Documented By: ANAT Aripiprazole (Aripiprazole 5 Mg Tablet) 2.5 mg PO DAILY [facility] Last Admin: 09/02/23 08:00 Dose: 2.5 mg Documented By: XENIA Fluticasone Propionate (Fluticasone Propionate Nasal 16 Gm [place]) 2 spray NOSTRIL-B DAILY [facility] Last Admin: 09/02/23 08:06 Dose: 2 spray Documented By: XENIA Gabapentin (Gabapentin 100 Mg Capsule) 100 mg PO BID [facility] Last Admin: 09/02/23 08:00 Dose: 100 mg Documented By: XENIA Heparin Sodium (Porcine) (Heparin Sodium,Porcine 5,000 Unit/Ml Vial) 5,000 unit SUBCUT TID [facility] Last Admin: 09/02/23 08:00 Dose: 5,000 unit Documented By: XENIA Hydrocortisone (Hydrocortisone 1 % Cream 28.35 Gm Tube) 1 appl TOPICAL DAILY [facility]; Protocol Last Admin: 09/02/23 08:06 Dose: 1 appl Documented By: XENIA Dextrose (D10) 250 mls @ 750 mls/hr IV Q15M PRN PRN Reason: per Hypoglycemia Standing Ord. Lidocaine (Lidocaine 4 % Patch Adh..Patch) 1 patch TRANSDERMA DAILY [facility] Last Admin: 09/02/23 08:01 Dose: 1 patch Documented By: XENIA Midodrine (Midodrine Hcl 5 Mg Tablet) 5 mg PO DIALYSIS X3 MOWEFR PRN PRN Reason: sbp<90 Multi-Ingred Cream/Lotion/Oil/Oint (Mineral Oil/Petrolatum,White 106 Gm Tube) 1 appl TOPICAL BID [facility]; Protocol Last Admin: 09/02/23 08:06 Dose: 1 appl Documented By: XENIA Nystatin (Nystatin Powder 15 Gm Bottle) 1 appl TOPICAL BID [facility]; Protocol Last Admin: 09/02/23 08:05 Dose: 1 appl Documented By: XENIA Ondansetron HCl (Ondansetron Odt 4 Mg Tab.Rapdis) 4 mg TRANSLINGU Q6H PRN PRN Reason: Nausea and Vomiting Polyethylene Glycol (Polyethylene Glycol 3350 17 Gm Powd.Pack) 17 gm PO DAILY [facility] Last Admin: 09/02/23 08:05 Dose: Not Given Documented By: XENIA Non-Admin Reason: MOVING BM Sertraline HCl (Sertraline Hcl 25 Mg Tablet) 12.5 mg PO BEDTIME [facility] Last Admin: 09/01/23 20:30 Dose: 12.5 mg Documented By: PRIETO Trazodone HCl (Trazodone Hcl 25 Mg Halftab) 25 mg PO BEDTIME [facility] Last Admin: 09/01/23 20:30 Dose: 25 mg Documented By: PRIETO Labs 08/23/23 06:58 08/30/23 08:15 Assessment and Plan (1) Major depression, recurrent: Status: Acute Plan 53 years old male with PMH of DM2, HTN, Asthma who presented to ED After sustaining a fall and laying on the floor for 9 hours found to have severe acute kidney injury from rhabdomyolysis and hyperkalemia 1.CHITO and severe hyperkalemia and acute metabolic acidosis due to ATN from rhabdomyolysis and no renal recovery and started on HD, TTS, -permacath placed 07/16/23. -receiving dialysis MWF -follow renals/divalents 2.Chronic Leg and back pain Stable, continue gabapentin 100mg BID 3.Depression. unspecified -No behavioral issues, seen by psychiatry 08/23, they recommended decrease dose of Abilify to 2.5 mg daily ,since it can cause orthostasis, decrease dose of trazodone to 25 mg at bedtime and Zoloft low-dose added -continue to encourage participation in PT 4.Acute?Rhabdomyolysis -resolved with volume -follow clinically 5.Diabetes type 2 -acceptable control on current therapies -lispro correctional scale -adjust as indicated Heparin Full code reason for continued hospitalization: debilitated / depressed, safe discharge to short-term rehab. Quality Stroke Does the patient have a stroke diagnosis?: No VTE Prior VTE?: No VTE Risk Level:: Medical - moderate - high VTE Device Contraindication: N/A - Device Ordered VTE Drug Contraindication: N/A - Med Ordered
[2023-09-02 15:05] VITALS: BP 105/65; PULSE 106; RESP 18; TEMP 36.3; O2SAT 95
[2023-09-02] MEDS: Sertraline HCL 25 MG TABLET 12.5 MG PO (20:33)
[2023-09-02] MEDS: traZODone HCL 25 MG HALFTAB PO (20:34)
[2023-09-03] VITALS: BP 106/65; PULSE 98; RESP 20; TEMP 35.9; O2SAT 95
[2023-09-03 07:48] VITALS: BP 112/78; PULSE 102; RESP 18; TEMP 36.9; O2SAT 99
[2023-09-03] MEDS: Heparin Sodium,Porcine 5,000 UNIT/ML VIAL 5000 UNIT SUBCUT ×3 (08:04→20:27)
[2023-09-03] MEDS: Gabapentin 100 MG CAPSULE PO ×2 (08:04→20:27)
[2023-09-03] MEDS: Lidocaine 4 % Patch ADH..PATCH 1 PATCH TRANSDERMA (08:04)
[2023-09-03] MEDS: ARIPiprazole 5 MG TABLET 2.5 MG PO (08:05)
[2023-09-03] MEDS: Fluticasone Propionate Nasal 16 GM SPRAY 2 SPRAY NOSTRIL-B (08:09)
[2023-09-03] MEDS: Hydrocortisone 1 % Cream 28.35 GM TUBE 1 APPL TOPICAL (08:09)
[2023-09-03] MEDS: Mineral Oil/Petrolatum,White 106 GM Tube 1 APPL TOPICAL ×2 (08:09→20:30)
[2023-09-03] MEDS: Nystatin Powder 15 GM BOTTLE 1 APPL TOPICAL ×2 (08:09→20:31)
--- NOTE | 2023-09-03 09:16 | MHC.CM.PN ---
The [facility] in [facility] is showing an interest in Patient; referral to them has been updated and CM will follow.
--- NOTE | 2023-09-03 12:38 | P.PNIM_ITS ---
Subjective Subjective Date of Service: 09/03/23 Interval History: No acute issues overnight Review of Systems Denies chest pain Denies shortness of breath Denies nausea vomiting diarrhea Denies fever chills Physical Exam 2 Vital Signs: Vital Signs: Last Vital Signs Temp 98.4 F 09/03/23 07:48 Pulse 102 H 09/03/23 07:48 Resp 18 09/03/23 07:48 BP 112/78 09/03/23 07:48 Pulse Ox 99 09/03/23 07:48 O2 Del Method Room Air 09/03/23 07:48 O2 Flow Rate 2 07/26/23 11:35 BMI result Body Mass Index 49.2 Const: Other: Awake alert no acute distress Resp: Other: Clear to auscultation bilaterally no rales rhonchi or wheezes Cardio: Other: No S4; positive S1-S2; no S3 murmurs rubs or gallops GI: Other: Soft nontender nondistended normoactive bowel sounds Extrem: Other: No edema bilaterally Objective Data Active Medications Acetaminophen (Acetaminophen 325 Mg Tablet) 650 mg PO Q4H PRN PRN Reason: Pain, Moderate(Pain Scale 4-6) Last Admin: 09/01/23 11:12 Dose: 650 mg Documented By: ANAT Aripiprazole (Aripiprazole 5 Mg Tablet) 2.5 mg PO DAILY [facility] Last Admin: 09/03/23 08:05 Dose: 2.5 mg Documented By: XENIA Fluticasone Propionate (Fluticasone Propionate Nasal 16 Gm [place]) 2 spray NOSTRIL-B DAILY [facility] Last Admin: 09/03/23 08:09 Dose: 2 spray Documented By: XENIA Gabapentin (Gabapentin 100 Mg Capsule) 100 mg PO BID [facility] Last Admin: 09/03/23 08:04 Dose: 100 mg Documented By: XENIA Heparin Sodium (Porcine) (Heparin Sodium,Porcine 5,000 Unit/Ml Vial) 5,000 unit SUBCUT TID [facility] Last Admin: 09/03/23 08:04 Dose: 5,000 unit Documented By: XENIA Hydrocortisone (Hydrocortisone 1 % Cream 28.35 Gm Tube) 1 appl TOPICAL DAILY [facility]; Protocol Last Admin: 09/03/23 08:09 Dose: 1 appl Documented By: XENIA Dextrose (D10) 250 mls @ 750 mls/hr IV Q15M PRN PRN Reason: per Hypoglycemia Standing Ord. Lidocaine (Lidocaine 4 % Patch Adh..Patch) 1 patch TRANSDERMA DAILY [facility] Last Admin: 09/03/23 08:04 Dose: 1 patch Documented By: XENIA Midodrine (Midodrine Hcl 5 Mg Tablet) 5 mg PO DIALYSIS X3 MOWEFR PRN PRN Reason: sbp<90 Multi-Ingred Cream/Lotion/Oil/Oint (Mineral Oil/Petrolatum,White 106 Gm Tube) 1 appl TOPICAL BID [facility]; Protocol Last Admin: 09/03/23 08:09 Dose: 1 appl Documented By: XENIA Nystatin (Nystatin Powder 15 Gm Bottle) 1 appl TOPICAL BID [facility]; Protocol Last Admin: 09/03/23 08:09 Dose: 1 appl Documented By: XENIA Ondansetron HCl (Ondansetron Odt 4 Mg Tab.Rapdis) 4 mg TRANSLINGU Q6H PRN PRN Reason: Nausea and Vomiting Polyethylene Glycol (Polyethylene Glycol 3350 17 Gm Powd.Pack) 17 gm PO DAILY [facility] Last Admin: 09/03/23 08:10 Dose: Not Given Documented By: XENIA Non-Admin Reason: Patient Refused Sertraline HCl (Sertraline Hcl 25 Mg Tablet) 12.5 mg PO BEDTIME [facility] Last Admin: 09/02/23 20:33 Dose: 12.5 mg Documented By: HELDER Comments: Trazodone HCl (Trazodone Hcl 25 Mg Halftab) 25 mg PO BEDTIME [facility] Last Admin: 09/02/23 20:34 Dose: 25 mg Documented By: HELDER Labs 08/23/23 06:58 08/30/23 08:15 Assessment and Plan (1) Acute renal failure: Status: Acute Plan 53 years old male with PMH of DM2, HTN, Asthma who presented to ED After sustaining a fall and laying on the floor for 9 hours found to have severe acute kidney injury from rhabdomyolysis and hyperkalemia 1.CHITO and severe hyperkalemia and acute metabolic acidosis due to ATN from rhabdomyolysis and no renal recovery and started on HD, TTS, -permacath placed 07/16/23. -receiving dialysis MWF -follow renals/divalents 2.Chronic Leg and back pain Stable, continue gabapentin 100mg BID 3.Depression. unspecified -No behavioral issues, seen by psychiatry 08/23, they recommended decrease dose of Abilify to 2.5 mg daily ,since it can cause orthostasis, decrease dose of trazodone to 25 mg at bedtime and Zoloft low-dose added -continue to encourage participation in PT 4.Acute?Rhabdomyolysis -resolved with volume -follow clinically 5.Diabetes type 2 -acceptable control on current therapies -lispro correctional scale -adjust as indicated Heparin Full code reason for continued hospitalization: debilitated / depressed, safe discharge to short-term rehab. Quality Stroke Does the patient have a stroke diagnosis?: No VTE Prior VTE?: No VTE Risk Level:: Medical - moderate - high VTE Device Contraindication: N/A - Device Ordered VTE Drug Contraindication: N/A - Med Ordered
--- NOTE | 2023-09-03 12:57 | P.PNNP_ITS ---
Subjective Subjective Date of Service: 09/03/23 Principal diagnosis: Elevated troponins Interval history: Seen on HD. No acute issues overnight;D/W HD RN Physical Exam 2 Vital Signs: Vital Signs: Last Vital Signs Temp 98.4 F 09/03/23 07:48 Pulse 102 H 09/03/23 07:48 Resp 18 09/03/23 07:48 BP 112/78 09/03/23 07:48 Pulse Ox 99 09/03/23 07:48 O2 Del Method Room Air 09/03/23 07:48 O2 Flow Rate 2 07/26/23 11:35 BMI result Body Mass Index 49.2 Const: General: no acute distress Eyes: EOM: EOMs intact bilaterally Resp: Auscultation: diminished lung sounds Cardio: Rate: regular rate GI: Palpation (GI): Soft to palpation Neuro: General: moves all extremities Objective Data Labs 08/23/23 06:58 08/30/23 08:15 Microbiology Microbiology Results: Microbiology 07/20/23 22:49 Blood - Venous Blood Culture - Final No growth after 5 days. 07/20/23 22:49 Blood - Venous Blood Culture - Final No growth after 5 days. 07/12/23 12:30 Blood - Venous Blood Culture - Final No growth after 5 days. 07/12/23 12:15 Blood - Venous Blood Culture - Final No growth after 5 days. 07/12/23 Unknown Urine Catheterized - Straight Catheter Urine Culture - Final No growth. 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 Has an outpt HD spot in [place] HD unit Monitor function for renal recovery; C/W rest of current management Progress Note: Quality Stroke Does the patient have a stroke diagnosis?: No
[2023-09-03 15:35] VITALS: BP 102/67; PULSE 113; RESP 19; TEMP 36.7; O2SAT 96
[2023-09-03 17:23] VITALS: BP 103/59; PULSE 114; RESP 20; TEMP 36.2; O2SAT 96
[2023-09-03 19:24] VITALS: BP 99/67; PULSE 110; RESP 20; TEMP 36.2; O2SAT 97
[2023-09-03] MEDS: traZODone HCL 25 MG HALFTAB PO (20:27)
[2023-09-03] MEDS: Sertraline HCL 25 MG TABLET 12.5 MG PO (20:27)
[2023-09-03 23:42] VITALS: BP 108/61; PULSE 113; RESP 18; TEMP 36; O2SAT 96
[2023-09-04 07:30] VITALS: BP 100/67; PULSE 106; RESP 18; TEMP 36; O2SAT 96
[2023-09-04] MEDS: Lidocaine 4 % Patch ADH..PATCH 1 PATCH TRANSDERMA (08:46)
[2023-09-04] MEDS: Heparin Sodium,Porcine 5,000 UNIT/ML VIAL 5000 UNIT SUBCUT ×3 (08:46→19:41)
[2023-09-04] MEDS: Gabapentin 100 MG CAPSULE PO ×2 (08:47→19:42)
[2023-09-04] MEDS: ARIPiprazole 5 MG TABLET 2.5 MG PO (08:48)
[2023-09-04] MEDS: Fluticasone Propionate Nasal 16 GM SPRAY 2 SPRAY NOSTRIL-B (08:50)
[2023-09-04] MEDS: Mineral Oil/Petrolatum,White 106 GM Tube 1 APPL TOPICAL ×2 (08:50→19:46)
[2023-09-04] MEDS: Nystatin Powder 15 GM BOTTLE 1 APPL TOPICAL ×2 (08:50→19:45)
[2023-09-04] MEDS: Hydrocortisone 1 % Cream 28.35 GM TUBE 1 APPL TOPICAL (08:51)
--- NOTE | 2023-09-04 10:11 | PC.NURSE ---
Pt up OOB to chair 1A with walker, Pt took all medications as prescribed with no issues, No behaviors noted.
--- NOTE | 2023-09-04 10:35 | P.PNIM_ITS ---
Subjective Subjective Date of Service: 09/04/23 Interval History: No acute issues overnight Review of Systems Denies chest pain Denies shortness of breath Denies nausea vomiting diarrhea Denies fever chills Physical Exam 2 Vital Signs: Vital Signs: Last Vital Signs Temp 96.8 F 09/04/23 07:30 Pulse 106 H 09/04/23 07:30 Resp 18 09/04/23 07:30 BP 100/67 09/04/23 07:30 Pulse Ox 96 09/04/23 07:30 O2 Del Method Room Air 09/04/23 07:30 O2 Flow Rate 2 07/26/23 11:35 BMI result Body Mass Index 49.2 Const: Other: Awake alert no acute distress Resp: Other: Clear to auscultation bilaterally no rales rhonchi or wheezes Cardio: Other: No S4; positive S1-S2; no S3 murmurs rubs or gallops GI: Other: Soft nontender nondistended normoactive bowel sounds Extrem: Other: No edema bilaterally Objective Data Active Medications Acetaminophen (Acetaminophen 325 Mg Tablet) 650 mg PO Q4H PRN PRN Reason: Pain, Moderate(Pain Scale 4-6) Last Admin: 09/01/23 11:12 Dose: 650 mg Documented By: ANAT Aripiprazole (Aripiprazole 5 Mg Tablet) 2.5 mg PO DAILY [facility] Last Admin: 09/04/23 08:48 Dose: 2.5 mg Documented By: CASSANDRA Fluticasone Propionate (Fluticasone Propionate Nasal 16 Gm [place]) 2 spray NOSTRIL-B DAILY [facility] Last Admin: 09/04/23 08:50 Dose: 2 spray Documented By: CASSANDRA Gabapentin (Gabapentin 100 Mg Capsule) 100 mg PO BID [facility] Last Admin: 09/04/23 08:47 Dose: 100 mg Documented By: CASSANDRA Heparin Sodium (Porcine) (Heparin Sodium,Porcine 5,000 Unit/Ml Vial) 5,000 unit SUBCUT TID [facility] Last Admin: 09/04/23 08:46 Dose: 5,000 unit Documented By: CASSANDRA Hydrocortisone (Hydrocortisone 1 % Cream 28.35 Gm Tube) 1 appl TOPICAL DAILY [facility]; Protocol Last Admin: 09/04/23 08:51 Dose: 1 appl Documented By: CASSANDRA Dextrose (D10) 250 mls @ 750 mls/hr IV Q15M PRN PRN Reason: per Hypoglycemia Standing Ord. Lidocaine (Lidocaine 4 % Patch Adh..Patch) 1 patch TRANSDERMA DAILY [facility] Last Admin: 09/04/23 08:46 Dose: 1 patch Documented By: CASSANDRA Midodrine (Midodrine Hcl 5 Mg Tablet) 5 mg PO DIALYSIS X3 MOWEFR PRN PRN Reason: sbp<90 Multi-Ingred Cream/Lotion/Oil/Oint (Mineral Oil/Petrolatum,White 106 Gm Tube) 1 appl TOPICAL BID [facility]; Protocol Last Admin: 09/04/23 08:50 Dose: 1 appl Documented By: CASSANDRA Nystatin (Nystatin Powder 15 Gm Bottle) 1 appl TOPICAL BID [facility]; Protocol Last Admin: 09/04/23 08:50 Dose: 1 appl Documented By: CASSANDRA Ondansetron HCl (Ondansetron Odt 4 Mg Tab.Rapdis) 4 mg TRANSLINGU Q6H PRN PRN Reason: Nausea and Vomiting Polyethylene Glycol (Polyethylene Glycol 3350 17 Gm Powd.Pack) 17 gm PO DAILY [facility] Last Admin: 09/04/23 08:48 Dose: Not Given Documented By: CASSANDRA Non-Admin Reason: Patient Refused Sertraline HCl (Sertraline Hcl 25 Mg Tablet) 12.5 mg PO BEDTIME [facility] Last Admin: 09/03/23 20:27 Dose: 12.5 mg Documented By: LAURYN Trazodone HCl (Trazodone Hcl 25 Mg Halftab) 25 mg PO BEDTIME [facility] Last Admin: 09/03/23 20:27 Dose: 25 mg Documented By: LAURYN Labs 08/23/23 06:58 08/30/23 08:15 Assessment and Plan (1) Rhabdomyolysis: Status: Acute Plan 53 years old male with PMH of DM2, HTN, Asthma who presented to ED After sustaining a fall and laying on the floor for 9 hours found to have severe acute kidney injury from rhabdomyolysis and hyperkalemia 1.CHITO and severe hyperkalemia and acute metabolic acidosis due to ATN from rhabdomyolysis and no renal recovery and started on HD, TTS, -permacath placed 07/16/23. -receiving dialysis MWF -follow renals/divalents 2.Chronic Leg and back pain Stable, continue gabapentin 100mg BID 3.Depression. unspecified -No behavioral issues, seen by psychiatry 08/23, they recommended decrease dose of Abilify to 2.5 mg daily ,since it can cause orthostasis, decrease dose of trazodone to 25 mg at bedtime and Zoloft low-dose added -continue to encourage participation in PT 4.Acute?Rhabdomyolysis -resolved with volume -follow clinically 5.Diabetes type 2 -acceptable control on current therapies -lispro correctional scale -adjust as indicated Heparin Full code reason for continued hospitalization: debilitated / depressed, safe discharge to short-term rehab. Quality Stroke Does the patient have a stroke diagnosis?: No VTE Prior VTE?: No VTE Risk Level:: Medical - moderate - high VTE Device Contraindication: N/A - Device Ordered VTE Drug Contraindication: N/A - Med Ordered
[2023-09-04] MEDS: Acetaminophen 325 MG TABLET 650 MG PO ×2 (10:41→19:42)
[2023-09-04 15:40] VITALS: BP 98/67; PULSE 96; RESP 16; TEMP 36.1; O2SAT 96
[2023-09-04 19:40] VITALS: BP 101/69; PULSE 100; RESP 14; TEMP 36.2; O2SAT 98
[2023-09-04] MEDS: traZODone HCL 25 MG HALFTAB PO (19:42)
[2023-09-04] MEDS: Sertraline HCL 25 MG TABLET 12.5 MG PO (19:42)
[2023-09-04 23:42] VITALS: BP 100/55; PULSE 89; RESP 14; TEMP 37.1; O2SAT 95
[2023-09-05 07:28] VITALS: BP 105/61; PULSE 104; RESP 20; TEMP 36.2; O2SAT 96
[2023-09-05] MEDS: Gabapentin 100 MG CAPSULE PO ×2 (08:44→21:22)
[2023-09-05] MEDS: ARIPiprazole 5 MG TABLET 2.5 MG PO (08:44)
[2023-09-05] MEDS: Heparin Sodium,Porcine 5,000 UNIT/ML VIAL 5000 UNIT SUBCUT ×3 (08:45→21:22)
[2023-09-05] MEDS: Nystatin Powder 15 GM BOTTLE 1 APPL TOPICAL (08:45)
[2023-09-05] MEDS: polyethylene glycoL 3350 17 GM POWD.PACK PO (08:45)
[2023-09-05] MEDS: Lidocaine 4 % Patch ADH..PATCH 1 PATCH TRANSDERMA (08:45)
[2023-09-05] MEDS: Mineral Oil/Petrolatum,White 106 GM Tube 1 APPL TOPICAL (08:46)
[2023-09-05] MEDS: Hydrocortisone 1 % Cream 28.35 GM TUBE 1 APPL TOPICAL (08:46)
[2023-09-05] MEDS: Fluticasone Propionate Nasal 16 GM SPRAY 2 SPRAY NOSTRIL-B (08:46)
--- NOTE | 2023-09-05 10:36 | HO.PM.IMPN ---
Subjective Subjective Date of Service: 09/05/23 Interval History: No acute issues overnight. More engaging Review of Systems Denies chest pain Denies shortness of breath Denies nausea vomiting diarrhea Denies fever chills Physical Exam Vital Signs: Vital Signs: Last Vital Signs Temp 97.1 F 09/05/23 07:28 Pulse 104 H 09/05/23 07:28 Resp 20 09/05/23 07:28 BP 105/61 09/05/23 07:28 Pulse Ox 96 09/05/23 07:28 O2 Del Method Room Air 09/05/23 07:28 O2 Flow Rate 2 07/26/23 11:35 BMI result Body Mass Index 49.2 Const: Other: Awake alert no acute distress Resp: Other: Clear to auscultation bilaterally no rales rhonchi or wheezes Cardio: Other: No S4; positive S1-S2; no S3 murmurs rubs or gallops GI: Other: Soft nontender nondistended normoactive bowel sounds Extrem: Other: No edema bilaterally Objective Data Active Medications Acetaminophen (Acetaminophen 325 Mg Tablet) 650 mg PO Q4H PRN PRN Reason: Pain, Moderate(Pain Scale 4-6) Last Admin: 09/04/23 19:42 Dose: 650 mg Documented By: LAURYN Aripiprazole (Aripiprazole 5 Mg Tablet) 2.5 mg PO DAILY [facility] Last Admin: 09/05/23 08:44 Dose: 2.5 mg Documented By: CHUY Fluticasone Propionate (Fluticasone Propionate Nasal 16 Gm [place]) 2 spray NOSTRIL-B DAILY [facility] Last Admin: 09/05/23 08:46 Dose: 2 spray Documented By: CHUY Gabapentin (Gabapentin 100 Mg Capsule) 100 mg PO BID [facility] Last Admin: 09/05/23 08:44 Dose: 100 mg Documented By: CHUY Heparin Sodium (Porcine) (Heparin Sodium,Porcine 5,000 Unit/Ml Vial) 5,000 unit SUBCUT TID [facility] Last Admin: 09/05/23 08:45 Dose: 5,000 unit Documented By: CHUY Hydrocortisone (Hydrocortisone 1 % Cream 28.35 Gm Tube) 1 appl TOPICAL DAILY [facility]; Protocol Last Admin: 09/05/23 08:46 Dose: 1 appl Documented By: CHUY Dextrose (D10) 250 mls @ 750 mls/hr IV Q15M PRN PRN Reason: per Hypoglycemia Standing Ord. Lidocaine (Lidocaine 4 % Patch Adh..Patch) 1 patch TRANSDERMA DAILY [facility] Last Admin: 09/05/23 08:45 Dose: 1 patch Documented By: CHUY Midodrine (Midodrine Hcl 5 Mg Tablet) 5 mg PO DIALYSIS X3 MOWEFR PRN PRN Reason: sbp<90 Multi-Ingred Cream/Lotion/Oil/Oint (Mineral Oil/Petrolatum,White 106 Gm Tube) 1 appl TOPICAL BID [facility]; Protocol Last Admin: 09/05/23 08:46 Dose: 1 appl Documented By: CHUY Nystatin (Nystatin Powder 15 Gm Bottle) 1 appl TOPICAL BID [facility]; Protocol Last Admin: 09/05/23 08:45 Dose: 1 appl Documented By: CHUY Ondansetron HCl (Ondansetron Odt 4 Mg Tab.Rapdis) 4 mg TRANSLINGU Q6H PRN PRN Reason: Nausea and Vomiting Polyethylene Glycol (Polyethylene Glycol 3350 17 Gm Powd.Pack) 17 gm PO DAILY [facility] Last Admin: 09/05/23 08:45 Dose: 17 gm Documented By: CHUY Sertraline HCl (Sertraline Hcl 25 Mg Tablet) 12.5 mg PO BEDTIME [facility] Last Admin: 09/04/23 19:42 Dose: 12.5 mg Documented By: LAURYN Trazodone HCl (Trazodone Hcl 25 Mg Halftab) 25 mg PO BEDTIME [facility] Last Admin: 09/04/23 19:42 Dose: 25 mg Documented By: LAURYN Labs 08/23/23 06:58 08/30/23 08:15 Assessment and Plan (1) Acute renal failure: Status: Acute Plan 53 years old male with PMH of DM2, HTN, Asthma who presented to ED After sustaining a fall and laying on the floor for 9 hours found to have severe acute kidney injury from rhabdomyolysis and hyperkalemia 1.CHITO and severe hyperkalemia and acute metabolic acidosis due to ATN from rhabdomyolysis and no renal recovery and started on HD, TTS, -permacath placed 07/16/23. -receiving dialysis MWF -follow renals/divalents 2.Chronic Leg and back pain Stable, continue gabapentin 100mg BID 3.Depression. unspecified -No behavioral issues, seen by psychiatry 08/23, they recommended decrease dose of Abilify to 2.5 mg daily ,since it can cause orthostasis, decrease dose of trazodone to 25 mg at bedtime and Zoloft low-dose added -continue to encourage participation in PT 4.Acute?Rhabdomyolysis -resolved with volume -follow clinically 5.Diabetes type 2 -acceptable control on current therapies -lispro correctional scale -adjust as indicated Heparin Full code reason for continued hospitalization: debilitated / depressed, safe discharge to short-term rehab. Quality Stroke Does the patient have a stroke diagnosis?: No VTE Prior VTE?: No VTE Risk Level:: Medical - moderate - high VTE Device Contraindication: N/A - Device Ordered VTE Drug Contraindication: N/A - Med Ordered
[2023-09-05] MEDS: Midodrine HCl 10 MG TABLET PO ×2 (11:17→16:07)
[2023-09-05 15:13] VITALS: BP 120/77; PULSE 91; RESP 18; TEMP 36.8; O2SAT 96
--- NOTE | 2023-09-05 15:19 | PC.NURSE ---
Pt aggreable to get OOB to chair for lunch 1A with walker, Pt medicated per MAR, no behaviors noted.
[2023-09-05] MEDS: traZODone HCL 25 MG HALFTAB PO (21:22)
[2023-09-05] MEDS: Sertraline HCL 25 MG TABLET 12.5 MG PO (21:22)
[2023-09-05] MEDS: Acetaminophen 325 MG TABLET 650 MG PO (21:23)
[2023-09-06] VITALS: BP 124/78; PULSE 85; RESP 18; TEMP 36.7; O2SAT 98
[2023-09-06] MEDS: Acetaminophen 325 MG TABLET 650 MG PO (05:39)
[2023-09-06 07:37] LABS: Glucose, Whole Blood 85 mg/dL (60-115)
[2023-09-06 07:56] VITALS: BP 115/71; PULSE 80; RESP 12; TEMP 36.1; O2SAT 94
[2023-09-06] MEDS: ARIPiprazole 5 MG TABLET 2.5 MG PO (08:14)
[2023-09-06] MEDS: Midodrine HCl 10 MG TABLET PO ×2 (08:14→16:18)
[2023-09-06] MEDS: Heparin Sodium,Porcine 5,000 UNIT/ML VIAL 5000 UNIT SUBCUT ×3 (08:14→20:06)
[2023-09-06] MEDS: Gabapentin 100 MG CAPSULE PO ×2 (08:15→20:05)
[2023-09-06] MEDS: Lidocaine 4 % Patch ADH..PATCH 1 PATCH TRANSDERMA (08:16)
[2023-09-06] MEDS: Fluticasone Propionate Nasal 16 GM SPRAY 2 SPRAY NOSTRIL-B (08:16)
--- NOTE | 2023-09-06 10:18 | HO.PM.IMPN ---
Subjective Subjective Date of Service: 09/06/23 Interval History: Being followed for placement. Offers no acute complaints tolerating diet no nausea, no vomiting, no abdominal pain/undergoing hemodialysis, denies lightheadedness or dizziness, stable blood pressures started on midodrine 10 mg t.i.d. yesterday, no acute issues overnight. Review of Systems All other systems are reviewed and are negative. Physical Exam Vital Signs: Vital Signs: Last Vital Signs Temp 96.9 F 09/06/23 07:56 Pulse 80 09/06/23 07:56 Resp 12 09/06/23 07:56 BP 115/71 09/06/23 07:56 Pulse Ox 94 09/06/23 07:56 O2 Del Method Room Air 09/06/23 07:56 O2 Flow Rate 2 07/26/23 11:35 BMI result Body Mass Index 49.2 Const: Other: nicteric sclera Neck no JVD. CVS regular rate rhythm, Respiratory lungs clear to auscultation, no respiratory distress, no wheeze, no rhonchi. Gastrointestinal abdomen soft, non tender, bowel sounds audible. Extremities no edema. Right upper extremity : decreased range of motion right shoulder. Neuro non focal, speech clear. Skin no rash Psych appropriate affect Objective Data Active Medications Acetaminophen (Acetaminophen 325 Mg Tablet) 650 mg PO Q4H PRN PRN Reason: Pain, Moderate(Pain Scale 4-6) Last Admin: 09/06/23 05:39 Dose: 650 mg Documented By: LAURYN Aripiprazole (Aripiprazole 5 Mg Tablet) 2.5 mg PO DAILY [facility] Last Admin: 09/06/23 08:14 Dose: 2.5 mg Documented By: LAVON Fluticasone Propionate (Fluticasone Propionate Nasal 16 Gm [place]) 2 spray NOSTRIL-B DAILY [facility] Last Admin: 09/06/23 08:16 Dose: 2 spray Documented By: LAVON Gabapentin (Gabapentin 100 Mg Capsule) 100 mg PO BID [facility] Last Admin: 09/06/23 08:15 Dose: 100 mg Documented By: LAVON Heparin Sodium (Porcine) (Heparin Sodium,Porcine 5,000 Unit/Ml Vial) 5,000 unit SUBCUT TID [facility] Last Admin: 09/06/23 08:14 Dose: 5,000 unit Documented By: LAVON Hydrocortisone (Hydrocortisone 1 % Cream 28.35 Gm Tube) 1 appl TOPICAL DAILY [facility]; Protocol Last Admin: 09/06/23 08:18 Dose: Not Given Documented By: LAVON Non-Admin Reason: Patient Refused Dextrose (D10) 250 mls @ 750 mls/hr IV Q15M PRN PRN Reason: per Hypoglycemia Standing Ord. Lidocaine (Lidocaine 4 % Patch Adh..Patch) 1 patch TRANSDERMA DAILY [facility] Last Admin: 09/06/23 08:16 Dose: 1 patch Documented By: LAVON Midodrine (Midodrine Hcl 10 Mg Tablet) 10 mg PO TIDWM [facility] Last Admin: 09/06/23 08:14 Dose: 10 mg Documented By: LAVON Multi-Ingred Cream/Lotion/Oil/Oint (Mineral Oil/Petrolatum,White 106 Gm Tube) 1 appl TOPICAL BID [facility]; Protocol Last Admin: 09/06/23 08:18 Dose: Not Given Documented By: LAVON Non-Admin Reason: Patient Refused Nystatin (Nystatin Powder 15 Gm Bottle) 1 appl TOPICAL BID [facility]; Protocol Last Admin: 09/06/23 08:17 Dose: Not Given Documented By: LAVON Non-Admin Reason: Patient Refused Ondansetron HCl (Ondansetron Odt 4 Mg Tab.Rapdis) 4 mg TRANSLINGU Q6H PRN PRN Reason: Nausea and Vomiting Polyethylene Glycol (Polyethylene Glycol 3350 17 Gm Powd.Pack) 17 gm PO DAILY [facility] Last Admin: 09/06/23 08:15 Dose: Not Given Documented By: LAVON Non-Admin Reason: Patient Refused Sertraline HCl (Sertraline Hcl 25 Mg Tablet) 12.5 mg PO BEDTIME [facility] Last Admin: 09/05/23 21:22 Dose: 12.5 mg Documented By: LAURYN Trazodone HCl (Trazodone Hcl 25 Mg Halftab) 25 mg PO BEDTIME [facility] Last Admin: 09/05/23 21:22 Dose: 25 mg Documented By: LAURYN Labs 08/23/23 06:58 08/30/23 08:15 Labs: Laboratory Results - last 24 hr 09/06/23 07:23 POC Glucose 85 Assessment and Plan (1) Acute renal failure: Status: Acute Plan 53 years old male with PMH of DM2, HTN, Asthma who presented to ED After sustaining a fall and laying on the floor for 9 hours found to have severe acute kidney injury from rhabdomyolysis and hyperkalemia 1.CHITO and severe hyperkalemia and acute metabolic acidosis due to ATN from rhabdomyolysis and no renal recovery and started on HD, TTS, -permacath placed 07/16/23. -receiving dialysis MWF -follow renals/divalents -continue midodrine 10 mg t.i.d. due to recurrent episodes of dizziness and weakness with physical therapy. 2.Chronic Leg and back pain Stable, continue gabapentin 100mg BID 3.Depression. unspecified -No behavioral issues, seen by psychiatry 08/23, they recommended decrease dose of Abilify to 2.5 mg daily ,since it can cause orthostasis, decrease dose of trazodone to 25 mg at bedtime and Zoloft low-dose added -continue to encourage participation in PT 4.Acute?Rhabdomyolysis -resolved with volume -follow clinically 5.Diabetes type 2 -acceptable control on current therapies -lispro correctional scale -adjust as indicated Heparin Full code reason for continued hospitalization: debilitated / depressed, safe discharge to short-term rehab. Quality Stroke Does the patient have a stroke diagnosis?: No VTE Prior VTE?: No VTE Risk Level:: Medical - moderate - high VTE Device Contraindication: N/A - Device Ordered VTE Drug Contraindication: N/A - Med Ordered
--- NOTE | 2023-09-06 10:31 | P.PNNPD_ITS ---
Subjective Subjective Date of Service: 09/06/23 Principal diagnosis: Elevated troponins This patient was seen during dialysis. Interval history: Events noted Physical Exam Vital Signs: Vital Signs: Last Vital Signs Temp 96.9 F 09/06/23 07:56 Pulse 80 09/06/23 07:56 Resp 12 09/06/23 07:56 BP 115/71 09/06/23 07:56 Pulse Ox 94 09/06/23 07:56 O2 Del Method Room Air 09/06/23 07:56 O2 Flow Rate 2 07/26/23 11:35 BMI result Body Mass Index 49.2 Const: Other: nicteric sclera Neck no JVD. CVS regular rate rhythm, Respiratory lungs clear to auscultation, no respiratory distress, no wheeze, no rhonchi. Gastrointestinal abdomen soft, non tender, bowel sounds audible. Extremities no edema. Right upper extremity : decreased range of motion right shoulder. Neuro non focal, speech clear. Skin no rash Psych appropriate affect Assessment & Plan Assessment and plan (1) Acute renal failure: Status: Acute Plan CHITO and severe hyperkalemia due to rhabdomyolysis. He has tubular injury due to rhabdomyolysis. Hyperkalemia At this point he has no signs of renal recovery yet. Watch urine output HD 3 times a week On schedule for dialysis - MWF Rash: Allergic- resolved Permcath exit site is clean He has an outpatient dialysis spot at [facility]. Time Spent With Patient Time: Total time managing care of this patient today ____ minutes. Procedures Date of Service Date of Service: 09/06/23
--- NOTE | 2023-09-06 13:48 | MHC.CM.PN ---
per rounds pt dc ready waiting on financial
[2023-09-06 14:36] VITALS: BP 107/70; PULSE 97; RESP 18; TEMP 36.1; O2SAT 97
[2023-09-06 14:47] LABS: Glucose, Whole Blood 85 mg/dL (60-115)
--- NOTE | 2023-09-06 16:11 | PC.NURSE ---
POC's were discontinued in the worklist, per Dr. Giron no need to continue with POC's at this time
[2023-09-06] MEDS: traZODone HCL 25 MG HALFTAB PO (20:05)
[2023-09-06] MEDS: Sertraline HCL 25 MG TABLET 12.5 MG PO (20:06)
[2023-09-06 21:05] VITALS: BP 117/80; PULSE 100; RESP 18; TEMP 36; O2SAT 96
--- NOTE | 2023-09-06 21:37 | PC.NURSE ---
Assumed care of patient at 19:00. Scheduled nystatin requested from pharmacy.
[2023-09-06] MEDS: Nystatin Powder 15 GM BOTTLE 1 APPL TOPICAL (22:32)
[2023-09-07] VITALS (7 sets, daily range): BP systolic 100–132; BP diastolic 62–85; PULSE 85–99; RESP 16–18; TEMP 35.8–36.6; O2SAT 96–97
[2023-09-07 07:26] LABS: Glucose, Whole Blood 91 mg/dL (60-115)
[2023-09-07] MEDS: Gabapentin 100 MG CAPSULE PO ×2 (09:08→20:07)
[2023-09-07] MEDS: Midodrine HCl 10 MG TABLET PO ×2 (09:08→12:26)
[2023-09-07] MEDS: ARIPiprazole 5 MG TABLET 2.5 MG PO (09:08)
[2023-09-07] MEDS: Heparin Sodium,Porcine 5,000 UNIT/ML VIAL 5000 UNIT SUBCUT ×3 (09:09→20:06)
[2023-09-07] MEDS: polyethylene glycoL 3350 17 GM POWD.PACK PO (09:11)
[2023-09-07] MEDS: Fluticasone Propionate Nasal 16 GM SPRAY 2 SPRAY NOSTRIL-B (09:12)
[2023-09-07] MEDS: Lidocaine 4 % Patch ADH..PATCH 1 PATCH TRANSDERMA (09:13)
--- NOTE | 2023-09-07 09:26 | MHC.CM.PN ---
uynable to locate bed for pt due to pt on parole,he is new to dialysis,pt is on [employer]
--- NOTE | 2023-09-07 10:44 | P.PNIM_ITS ---
Subjective Subjective Date of Service: 09/07/23 Interval History: [place] lightheaded with sitting, otherwise no other acute symptoms, denies headache no chest pain, no palpitation, no nausea, no vomiting, no behavioral issues, no other acute events overnight. Review of Systems All other system reviewed and are negative. Physical Exam 2 Vital Signs: Vital Signs: Last Vital Signs Temp 97.1 F 09/07/23 07:16 Pulse 97 09/07/23 07:16 Resp 16 09/07/23 07:16 BP 100/74 09/07/23 07:16 Pulse Ox 97 09/07/23 07:16 O2 Del Method Room Air 09/07/23 07:16 O2 Flow Rate 2 07/26/23 11:35 BMI result Body Mass Index 49.2 Const: Other: General awake alert in no distress anicteric sclera Neck no JVD. CVS regular rate rhythm, Respiratory lungs clear to auscultation, no respiratory distress, no wheeze, no rhonchi. Gastrointestinal abdomen soft, non tender, bowel sounds audible. Extremities no edema. Right upper extremity : decreased range of motion right shoulder. Neuro non focal, speech clear. Skin no rash Psych appropriate affect Objective Data Active Medications Acetaminophen (Acetaminophen 325 Mg Tablet) 650 mg PO Q4H PRN PRN Reason: Pain, Moderate(Pain Scale 4-6) Last Admin: 09/06/23 05:39 Dose: 650 mg Documented By: LAURYN Aripiprazole (Aripiprazole 5 Mg Tablet) 2.5 mg PO DAILY [facility] Last Admin: 09/07/23 09:08 Dose: 2.5 mg Documented By: LAVON Fluticasone Propionate (Fluticasone Propionate Nasal 16 Gm [place]) 2 spray NOSTRIL-B DAILY [facility] Last Admin: 09/07/23 09:12 Dose: 2 spray Documented By: LAVON Gabapentin (Gabapentin 100 Mg Capsule) 100 mg PO BID [facility] Last Admin: 09/07/23 09:08 Dose: 100 mg Documented By: LAVON Heparin Sodium (Porcine) (Heparin Sodium,Porcine 5,000 Unit/Ml Vial) 5,000 unit SUBCUT TID [facility] Last Admin: 09/07/23 09:09 Dose: 5,000 unit Documented By: LAVON Hydrocortisone (Hydrocortisone 1 % Cream 28.35 Gm Tube) 1 appl TOPICAL DAILY [facility]; Protocol Last Admin: 09/07/23 09:14 Dose: Not Given Documented By: LAVON Non-Admin Reason: Patient Refused Dextrose (D10) 250 mls @ 750 mls/hr IV Q15M PRN PRN Reason: per Hypoglycemia Standing Ord. Lidocaine (Lidocaine 4 % Patch Adh..Patch) 1 patch TRANSDERMA DAILY [facility] Last Admin: 09/07/23 09:13 Dose: 1 patch Documented By: LAVON Midodrine (Midodrine Hcl 10 Mg Tablet) 10 mg PO TIDWM [facility] Last Admin: 09/07/23 09:08 Dose: 10 mg Documented By: LAVON Multi-Ingred Cream/Lotion/Oil/Oint (Mineral Oil/Petrolatum,White 106 Gm Tube) 1 appl TOPICAL BID [facility]; Protocol Last Admin: 09/07/23 09:15 Dose: Not Given Documented By: LAVON Non-Admin Reason: Patient Refused Nystatin (Nystatin Powder 15 Gm Bottle) 1 appl TOPICAL BID [facility]; Protocol Last Admin: 09/07/23 09:15 Dose: Not Given Documented By: LAVON Non-Admin Reason: Patient Refused Ondansetron HCl (Ondansetron Odt 4 Mg Tab.Rapdis) 4 mg TRANSLINGU Q6H PRN PRN Reason: Nausea and Vomiting Polyethylene Glycol (Polyethylene Glycol 3350 17 Gm Powd.Pack) 17 gm PO DAILY [facility] Last Admin: 09/07/23 09:11 Dose: 17 gm Documented By: LAVON Sertraline HCl (Sertraline Hcl 25 Mg Tablet) 12.5 mg PO BEDTIME [facility] Last Admin: 09/06/23 20:06 Dose: 12.5 mg Documented By: TRISTIN Trazodone HCl (Trazodone Hcl 25 Mg Halftab) 25 mg PO BEDTIME [facility] Last Admin: 09/06/23 20:05 Dose: 25 mg Documented By: TRISTIN Labs 08/23/23 06:58 08/30/23 08:15 Labs: Laboratory Results - last 24 hr 09/06/23 09/07/23 14:43 07:22 POC Glucose 85 91 Assessment and Plan (1) Acute renal failure: Status: Acute Plan 53 years old male with PMH of DM2, HTN, Asthma who presented to ED After sustaining a fall and laying on the floor for 9 hours found to have severe acute kidney injury from rhabdomyolysis and hyperkalemia 1.CHITO and severe hyperkalemia and acute metabolic acidosis due to ATN from rhabdomyolysis and no renal recovery and started on HD, TTS, -permacath placed 07/16/23. -receiving dialysis MWF -follow renals/divalents -on midodrine 10 mg t.i.d. due to recurrent episodes of dizziness and weakness with physical therapy. 2.Chronic Leg and back pain Stable, continue gabapentin 100mg BID/ 3.Depression. unspecified -No behavioral issues, seen by psychiatry 08/23, they recommended decrease dose of Abilify to 2.5 mg daily ,since it can cause orthostasis, decrease dose of trazodone to 25 mg at bedtime and Zoloft low-dose added -continue to encourage participation in PT 4.Acute?Rhabdomyolysis -resolved with volume -follow clinically 5.Diabetes type 2 -acceptable control on current therapies, discontinue lispro correction scale and point of care, hemoglobin A1c 6.1 on 12/31. PT recommend short-term rehab/recommend out of bed to chair for all meals Heparin Full code reason for continued hospitalization: debilitated / depressed, safe discharge to short-term rehab. Quality Stroke Does the patient have a stroke diagnosis?: No VTE Prior VTE?: No VTE Risk Level:: Medical - moderate - high VTE Device Contraindication: N/A - Device Ordered VTE Drug Contraindication: N/A - Med Ordered
[2023-09-07] MEDS: Sertraline HCL 25 MG TABLET 12.5 MG PO (20:06)
[2023-09-07] MEDS: traZODone HCL 25 MG HALFTAB PO (20:07)
[2023-09-08 07:47] VITALS: BP 106/73; PULSE 99; RESP 17; TEMP 36.3; O2SAT 98
[2023-09-08] MEDS: Lidocaine 4 % Patch ADH..PATCH 1 PATCH TRANSDERMA (08:41)
[2023-09-08] MEDS: ARIPiprazole 5 MG TABLET 2.5 MG PO (08:41)
[2023-09-08] MEDS: Midodrine HCl 10 MG TABLET PO ×2 (08:42→17:39)
[2023-09-08] MEDS: Heparin Sodium,Porcine 5,000 UNIT/ML VIAL 5000 UNIT SUBCUT ×3 (08:42→20:35)
[2023-09-08] MEDS: Gabapentin 100 MG CAPSULE PO ×2 (08:42→20:35)
[2023-09-08] MEDS: Fluticasone Propionate Nasal 16 GM SPRAY 2 SPRAY NOSTRIL-B (08:42)
--- NOTE | 2023-09-08 09:54 | P.PNIM_ITS ---
Subjective Subjective Date of Service: 09/08/23 Interval History: no acute complaints Physical Exam 2 Vital Signs: Vital Signs: Last Vital Signs Temp 97.4 F 09/08/23 07:47 Pulse 99 09/08/23 07:47 Resp 17 09/08/23 07:47 BP 106/73 09/08/23 07:47 Pulse Ox 98 09/08/23 07:47 O2 Del Method Room Air 09/08/23 07:47 O2 Flow Rate 2 07/26/23 11:35 BMI result Body Mass Index 49.2 Const: Other: General awake alert in no distress anicteric sclera Neck no JVD. CVS regular rate rhythm, Respiratory lungs clear to auscultation, no respiratory distress, no wheeze, no rhonchi. Gastrointestinal abdomen soft, non tender, bowel sounds audible. Extremities no edema. Right upper extremity : decreased range of motion right shoulder. Neuro non focal, speech clear. Skin no rash Psych appropriate affect Objective Data Active Medications Acetaminophen (Acetaminophen 325 Mg Tablet) 650 mg PO Q4H PRN PRN Reason: Pain, Moderate(Pain Scale 4-6) Last Admin: 09/06/23 05:39 Dose: 650 mg Documented By: LAURYN Aripiprazole (Aripiprazole 5 Mg Tablet) 2.5 mg PO DAILY [facility] Last Admin: 09/08/23 08:41 Dose: 2.5 mg Documented By: CASSANDRA Fluticasone Propionate (Fluticasone Propionate Nasal 16 Gm [place]) 2 spray NOSTRIL-B DAILY [facility] Last Admin: 09/08/23 08:42 Dose: 2 spray Documented By: CASSANDRA Gabapentin (Gabapentin 100 Mg Capsule) 100 mg PO BID [facility] Last Admin: 09/08/23 08:42 Dose: 100 mg Documented By: CASSANDRA Heparin Sodium (Porcine) (Heparin Sodium,Porcine 5,000 Unit/Ml Vial) 5,000 unit SUBCUT TID [facility] Last Admin: 09/08/23 08:42 Dose: 5,000 unit Documented By: CASSANDRA Hydrocortisone (Hydrocortisone 1 % Cream 28.35 Gm Tube) 1 appl TOPICAL DAILY [facility]; Protocol Last Admin: 09/08/23 08:05 Dose: Not Given Documented By: COTEMA Non-Admin Reason: Patient Refused Dextrose (D10) 250 mls @ 750 mls/hr IV Q15M PRN PRN Reason: per Hypoglycemia Standing Ord. Lidocaine (Lidocaine 4 % Patch Adh..Patch) 1 patch TRANSDERMA DAILY [facility] Last Admin: 09/08/23 08:41 Dose: 1 patch Documented By: CASSANDRA Midodrine (Midodrine Hcl 10 Mg Tablet) 10 mg PO TIDWM [facility] Last Admin: 09/08/23 08:42 Dose: 10 mg Documented By: CASSANDRA Multi-Ingred Cream/Lotion/Oil/Oint (Mineral Oil/Petrolatum,White 106 Gm Tube) 1 appl TOPICAL BID [facility]; Protocol Last Admin: 09/08/23 08:06 Dose: Not Given Documented By: OSCAR Non-Admin Reason: Patient Refused Nystatin (Nystatin Powder 15 Gm Bottle) 1 appl TOPICAL BID [facility]; Protocol Last Admin: 09/08/23 08:06 Dose: Not Given Documented By: OSCAR Non-Admin Reason: Patient Refused Ondansetron HCl (Ondansetron Odt 4 Mg Tab.Rapdis) 4 mg TRANSLINGU Q6H PRN PRN Reason: Nausea and Vomiting Polyethylene Glycol (Polyethylene Glycol 3350 17 Gm Powd.Pack) 17 gm PO DAILY [facility] Last Admin: 09/08/23 08:42 Dose: Not Given Documented By: CASSANDRA Non-Admin Reason: Patient Refused Sertraline HCl (Sertraline Hcl 25 Mg Tablet) 12.5 mg PO BEDTIME [facility] Last Admin: 09/07/23 20:06 Dose: 12.5 mg Documented By: DAVID Trazodone HCl (Trazodone Hcl 25 Mg Halftab) 25 mg PO BEDTIME [facility] Last Admin: 09/07/23 20:07 Dose: 25 mg Documented By: DAVID Labs 08/23/23 06:58 08/30/23 08:15 Assessment and Plan (1) Acute renal failure: Status: Acute Plan 53M PMH of DM2, HTN, Asthma who presented to ED After sustaining a fall and laying on the floor for 9 hours found to have severe acute kidney injury from rhabdomyolysis complicated by hyperkalemia CHITO and severe hyperkalemia and acute metabolic acidosis due to ATN from rhabdomyolysis and no renal recovery and started on HD, TTS, permacath placed 07/16/23. receiving dialysis MWF on midodrine 10 mg t.i.d. due to recurrent episodes of dizziness and weakness with physical therapy. Chronic Leg and back pain Stable, continue gabapentin 100mg BID/ Depression. unspecified No behavioral issues, seen by psychiatry 08/23, they recommended decrease dose of Abilify to 2.5 mg daily ,since it can cause orthostasis, decrease dose of trazodone to 25 mg at bedtime and Zoloft low-dose added continue to encourage participation in PT Acute?Rhabdomyolysis resolved Diabetes type 2 acceptable controlnot on meds, hemoglobin A1c 6.1 on 12/31. PT recommend short-term rehab/recommend out of bed to chair for all meals Heparin Full code reason for continued hospitalization: debilitated / depressed, safe discharge to short-term rehab. Quality Stroke Does the patient have a stroke diagnosis?: No VTE Prior VTE?: No VTE Risk Level:: Medical - moderate - high VTE Device Contraindication: N/A - Device Ordered VTE Drug Contraindication: N/A - Med Ordered
--- NOTE | 2023-09-08 13:11 | PM.PNNEP ---
Subjective Subjective Date of Service: 09/08/23 Principal diagnosis: Elevated troponins Interval history: no acute complaints; On HD; D/W HD RN Physical Exam Vital Signs: Vital Signs: Last Vital Signs Temp 97.4 F 09/08/23 07:47 Pulse 99 09/08/23 07:47 Resp 17 09/08/23 07:47 BP 106/73 09/08/23 07:47 Pulse Ox 98 09/08/23 07:47 O2 Del Method Room Air 09/08/23 07:47 O2 Flow Rate 2 07/26/23 11:35 BMI result Body Mass Index 49.2 Const: General: comfortable and no acute distress Orientation/consciousness: patient oriented x3 HEENT: Head: Yes normocephalic Mouth: Normal oral and palatal mucosa present Eyes: EOM: EOMs intact bilaterally Neck: Neck: Yes supple Resp: Auscultation: clear to auscultation bilaterally Cardio: Jugular venous distension: no JVD Rate: regular rate GI: Palpation (GI): Soft to palpation Auscultation: normal bowel sounds : General: Yes no CVA tenderness Back/Spine/Pelvis: Back: no CVA tenderness Skin: General skin exam: no rashes or lesions noted Neuro: General: patient oriented x3 and moves all extremities Extrem: General: Yes no pedal edema Objective Data Labs 08/23/23 06:58 08/30/23 08:15 Microbiology Microbiology Results: Microbiology 07/20/23 22:49 Blood - Venous Blood Culture - Final No growth after 5 days. 07/20/23 22:49 Blood - Venous Blood Culture - Final No growth after 5 days. 07/12/23 12:30 Blood - Venous Blood Culture - Final No growth after 5 days. 07/12/23 12:15 Blood - Venous Blood Culture - Final No growth after 5 days. 07/12/23 Unknown Urine Catheterized - Straight Catheter Urine Culture - Final No growth. 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 Has an outpt HD spot in [place] HD unit Monitor function for any possible renal recovery; C/W rest of current management Progress Note: Quality Stroke Does the patient have a stroke diagnosis?: No
--- NOTE | 2023-09-08 15:27 | MHC.CM.PN ---
PT WOULD LIKE TO GO HOME REFERRAL MADE TO [place] AT [facility] WHO WILL MEET WITH PT TOMORROW FOR SERVICES REFERAL TO [facility] ,CALLED [facility] TO CHECK ON HD SLOT ,THEY SAID HD SLOT IS NO LONGER AVALIABLE AND THEY HAVE NO OPENINGS .SPOKE WITH DR STEVEN WHO WILL SPEAK WITH ASSEMBLER FAUCETS ABOUT GETTINGHIM ANOTHER SLOT MORE LOCAL
[2023-09-08 15:42] VITALS: BP 100/60; PULSE 103; RESP 16; TEMP 36.1; O2SAT 96
[2023-09-08] MEDS: Sertraline HCL 25 MG TABLET 12.5 MG PO (20:34)
[2023-09-08] MEDS: traZODone HCL 25 MG HALFTAB PO (20:34)
[2023-09-08] MEDS: Nystatin Powder 15 GM BOTTLE 1 APPL TOPICAL (20:42)
[2023-09-08 23:47] VITALS: BP 97/67; PULSE 96; RESP 18; TEMP 36.1; O2SAT 95
[2023-09-09 07:11] VITALS: BP 91/62; PULSE 105; RESP 18; TEMP 36.3; O2SAT 97
[2023-09-09 07:29] LABS: Glucose, Whole Blood 93 mg/dL (60-115)
[2023-09-09 07:47] VITALS: BP 100/80
[2023-09-09] MEDS: ARIPiprazole 5 MG TABLET 2.5 MG PO (08:02)
[2023-09-09] MEDS: Lidocaine 4 % Patch ADH..PATCH 1 PATCH TRANSDERMA (08:02)
[2023-09-09] MEDS: Gabapentin 100 MG CAPSULE PO ×2 (08:02→21:47)
[2023-09-09] MEDS: Midodrine HCl 10 MG TABLET PO ×2 (08:02→12:24)
[2023-09-09] MEDS: Heparin Sodium,Porcine 5,000 UNIT/ML VIAL 5000 UNIT SUBCUT ×2 (08:02→21:47)
[2023-09-09] MEDS: Fluticasone Propionate Nasal 16 GM SPRAY 2 SPRAY NOSTRIL-B (08:05)
--- NOTE | 2023-09-09 08:39 | HO.PM.IMPN ---
Subjective Subjective Date of Service: 09/09/23 Interval History: no acute complaints Physical Exam Vital Signs: Vital Signs: Last Vital Signs Temp 97.3 F 09/09/23 07:11 Pulse 105 H 09/09/23 07:11 Resp 18 09/09/23 07:11 BP 100/80 09/09/23 07:47 Pulse Ox 97 09/09/23 07:11 O2 Del Method Room Air 09/09/23 07:11 O2 Flow Rate 2 07/26/23 11:35 BMI result Body Mass Index 49.2 Const: General: comfortable and no acute distress Orientation/consciousness: patient oriented x3 HEENT: Head: Yes normocephalic Mouth: Normal oral and palatal mucosa present Eyes: EOM: EOMs intact bilaterally Neck: Neck: Yes supple Resp: Auscultation: clear to auscultation bilaterally Cardio: Jugular venous distension: no JVD Rate: regular rate GI: Palpation (GI): Soft to palpation Auscultation: normal bowel sounds : General: Yes no CVA tenderness Back/Spine/Pelvis: Back: no CVA tenderness Skin: General skin exam: no rashes or lesions noted Neuro: General: patient oriented x3 and moves all extremities Extrem: General: Yes no pedal edema Objective Data Active Medications Acetaminophen (Acetaminophen 325 Mg Tablet) 650 mg PO Q4H PRN PRN Reason: Pain, Moderate(Pain Scale 4-6) Last Admin: 09/06/23 05:39 Dose: 650 mg Documented By: LAURYN Aripiprazole (Aripiprazole 5 Mg Tablet) 2.5 mg PO DAILY [facility] Last Admin: 09/09/23 08:02 Dose: 2.5 mg Documented By: COTEMA Fluticasone Propionate (Fluticasone Propionate Nasal 16 Gm [place]) 2 spray NOSTRIL-B DAILY [facility] Last Admin: 09/09/23 08:05 Dose: 2 spray Documented By: COTEMA Gabapentin (Gabapentin 100 Mg Capsule) 100 mg PO BID [facility] Last Admin: 09/09/23 08:02 Dose: 100 mg Documented By: KODAKEMA Heparin Sodium (Porcine) (Heparin Sodium,Porcine 5,000 Unit/Ml Vial) 5,000 unit SUBCUT TID [facility] Last Admin: 09/09/23 08:02 Dose: 5,000 unit Documented By: COTEMA Hydrocortisone (Hydrocortisone 1 % Cream 28.35 Gm Tube) 1 appl TOPICAL DAILY [facility]; Protocol Last Admin: 09/09/23 07:39 Dose: Not Given Documented By: OSCAR Non-Admin Reason: Patient Refused Dextrose (D10) 250 mls @ 750 mls/hr IV Q15M PRN PRN Reason: per Hypoglycemia Standing Ord. Lidocaine (Lidocaine 4 % Patch Adh..Patch) 1 patch TRANSDERMA DAILY [facility] Last Admin: 09/09/23 08:02 Dose: 1 patch Documented By: OSCAR Midodrine (Midodrine Hcl 10 Mg Tablet) 10 mg PO TIDWM [facility] Last Admin: 09/09/23 08:02 Dose: 10 mg Documented By: OSCAR Multi-Ingred Cream/Lotion/Oil/Oint (Mineral Oil/Petrolatum,White 106 Gm Tube) 1 appl TOPICAL BID [facility]; Protocol Last Admin: 09/09/23 07:39 Dose: Not Given Documented By: OSCAR Non-Admin Reason: Patient Refused Nystatin (Nystatin Powder 15 Gm Bottle) 1 appl TOPICAL BID [facility]; Protocol Last Admin: 09/09/23 07:39 Dose: Not Given Documented By: OSCAR Non-Admin Reason: Patient Refused Ondansetron HCl (Ondansetron Odt 4 Mg Tab.Rapdis) 4 mg TRANSLINGU Q6H PRN PRN Reason: Nausea and Vomiting Polyethylene Glycol (Polyethylene Glycol 3350 17 Gm Powd.Pack) 17 gm PO DAILY [facility] Last Admin: 09/09/23 07:39 Dose: Not Given Documented By: OSCAR Non-Admin Reason: Patient Refused Sertraline HCl (Sertraline Hcl 25 Mg Tablet) 12.5 mg PO BEDTIME [facility] Last Admin: 09/08/23 20:34 Dose: 12.5 mg Documented By: GARY Trazodone HCl (Trazodone Hcl 25 Mg Halftab) 25 mg PO BEDTIME [facility] Last Admin: 09/08/23 20:34 Dose: 25 mg Documented By: GARY Labs 08/23/23 06:58 08/30/23 08:15 Labs: Laboratory Results - last 24 hr 09/09/23 07:10 POC Glucose 93 Assessment and Plan (1) Acute renal failure: Status: Acute Plan 53M PMH of DM2, HTN, Asthma who presented to ED After sustaining a fall and laying on the floor for 9 hours found to have severe acute kidney injury from rhabdomyolysis complicated by hyperkalemia CHITO and severe hyperkalemia and acute metabolic acidosis due to ATN from rhabdomyolysis and no renal recovery and started on HD, TTS, permacath placed 07/16/23. receiving dialysis MWF on midodrine 10 mg t.i.d. due to recurrent episodes of dizziness and weakness with physical therapy. Chronic Leg and back pain Stable, continue gabapentin 100mg BID/ Depression. unspecified No behavioral issues, seen by psychiatry 08/23, they recommended decrease dose of Abilify to 2.5 mg daily ,since it can cause orthostasis, decrease dose of trazodone to 25 mg at bedtime and Zoloft low-dose added continue to encourage participation in PT Acute?Rhabdomyolysis resolved Diabetes type 2 acceptable controlnot on meds, hemoglobin A1c 6.1 on 12/31. PT recommend short-term rehab/recommend out of bed to chair for all meals Heparin Full code reason for continued hospitalization: debilitated / depressed, safe discharge to short-term rehab. Quality Stroke Does the patient have a stroke diagnosis?: No VTE Prior VTE?: No VTE Risk Level:: Medical - moderate - high VTE Device Contraindication: N/A - Device Ordered VTE Drug Contraindication: N/A - Med Ordered
--- NOTE | 2023-09-09 13:19 | P.PNNP_ITS ---
Subjective Subjective Date of Service: 09/09/23 Principal diagnosis: Elevated troponins Interval history: no acute complaints Physical Exam 2 Vital Signs: Vital Signs: Last Vital Signs Temp 97.3 F 09/09/23 07:11 Pulse 105 H 09/09/23 07:11 Resp 18 09/09/23 07:11 BP 100/80 09/09/23 07:47 Pulse Ox 97 09/09/23 07:11 O2 Del Method Room Air 09/09/23 07:11 O2 Flow Rate 2 07/26/23 11:35 BMI result Body Mass Index 49.2 Const: Other: nicteric sclera Neck no JVD. CVS regular rate rhythm, Respiratory lungs clear to auscultation, no respiratory distress, no wheeze, no rhonchi. Gastrointestinal abdomen soft, non tender, bowel sounds audible. Extremities no edema. Right upper extremity : decreased range of motion right shoulder. Neuro non focal, speech clear. Skin no rash Psych appropriate affect Objective Data Labs 08/23/23 06:58 08/30/23 08:15 Labs: Laboratory Results - last 24 hr 09/09/23 07:10 POC Glucose 93 Microbiology Microbiology Results: Microbiology 07/20/23 22:49 Blood - Venous Blood Culture - Final No growth after 5 days. 07/20/23 22:49 Blood - Venous Blood Culture - Final No growth after 5 days. 07/12/23 12:30 Blood - Venous Blood Culture - Final No growth after 5 days. 07/12/23 12:15 Blood - Venous Blood Culture - Final No growth after 5 days. 07/12/23 Unknown Urine Catheterized - Straight Catheter Urine Culture - Final No growth. Procedures Date of Service Date of Service: 09/09/23 Assessment & Plan Assessment and plan (1) Acute renal failure: Status: Acute Plan CHITO and severe hyperkalemia due to rhabdomyolysis. He has tubular injury due to rhabdomyolysis. Hyperkalemia At this point he has no signs of renal recovery yet. Watch urine output HD 3 times a week On schedule for dialysis - MWF Rash: Allergic- resolved Permcath exit site is clean He has an outpatient dialysis spot at [facility]. Time Spent With Patient Time: Total time managing care of this patient today ____ minutes. Progress Note: Quality Stroke Does the patient have a stroke diagnosis?: No
--- NOTE | 2023-09-09 15:51 | MHC.CM.PN ---
CM HAS EXPANDED REFERRALS FOR STR/HD. NO BED OFFERS AT THIS TIME. PER NURSING, P.T. AND O.T. , PT IS NOT A SAFE DC HOME AT THIS TIME. EC GAS LEAK TESTER IN TO SEE PT WHO ALSO AGREES THAT HOME IS NOT A SAFE PLAN. SISTER/HCP [place] CALLED FOR UPDATE. PT GIVES PERMISSION FOR THIS CM TO SPEAK WITH HER. CM CONTINUES TO FOLLOW FOR DC PLAN.
[2023-09-09 16:00] VITALS: BP 132/83; PULSE 90; RESP 18; TEMP 36.2; O2SAT 97
[2023-09-09] MEDS: Sertraline HCL 25 MG TABLET 12.5 MG PO (21:47)
[2023-09-09] MEDS: traZODone HCL 25 MG HALFTAB PO (21:47)
[2023-09-09] MEDS: Nystatin Powder 15 GM BOTTLE 1 APPL TOPICAL (21:54)
[2023-09-09 23:30] VITALS: BP 124/77; PULSE 95; RESP 18; TEMP 36.2; O2SAT 95
[2023-09-10 04:12] LABS: HBS Num1 10.55 mIU/mL (0-7.99); HBsAGNum1 0.21 S/CO (0.00-0.99); Hepatitis B Core Antibody Nonreactive (Nonreactive); Hepatitis B Surface Antigen Negative (Negative)
[2023-09-10 05:08] LABS: HBS Num2 10.92 mIU/mL (0-7.99); HBS Num3 10.38 mIU/mL (0-7.99); ~Hepatitis B Surface Antibody GRAYZONE (Nonreactive)
[2023-09-10 08:40] VITALS: BP 101/71; PULSE 114; RESP 18; TEMP 36.2; O2SAT 93
--- NOTE | 2023-09-10 09:11 | P.PNIM_ITS ---
Subjective Subjective Date of Service: 09/10/23 Interval History: no acute complaints Physical Exam 2 Vital Signs: Vital Signs: Last Vital Signs Temp 97.1 F 09/10/23 08:40 Pulse 114 H 09/10/23 08:40 Resp 18 09/10/23 08:40 BP 101/71 09/10/23 08:40 Pulse Ox 93 09/10/23 08:40 O2 Del Method Room Air 09/10/23 08:40 O2 Flow Rate 2 07/26/23 11:35 BMI result Body Mass Index 49.2 Const: Other: nicteric sclera Neck no JVD. CVS regular rate rhythm, Respiratory lungs clear to auscultation, no respiratory distress, no wheeze, no rhonchi. Gastrointestinal abdomen soft, non tender, bowel sounds audible. Extremities no edema. Right upper extremity : decreased range of motion right shoulder. Neuro non focal, speech clear. Skin no rash Psych appropriate affect Objective Data Active Medications Acetaminophen (Acetaminophen 325 Mg Tablet) 650 mg PO Q4H PRN PRN Reason: Pain, Moderate(Pain Scale 4-6) Last Admin: 09/06/23 05:39 Dose: 650 mg Documented By: LAURYN Aripiprazole (Aripiprazole 5 Mg Tablet) 2.5 mg PO DAILY [facility] Last Admin: 09/09/23 08:02 Dose: 2.5 mg Documented By: COTEMA Fluticasone Propionate (Fluticasone Propionate Nasal 16 Gm [place]) 2 spray NOSTRIL-B DAILY [facility] Last Admin: 09/09/23 08:05 Dose: 2 spray Documented By: COTEMA Gabapentin (Gabapentin 100 Mg Capsule) 100 mg PO BID [facility] Last Admin: 09/09/23 21:47 Dose: 100 mg Documented By: VICKIEASY Heparin Sodium (Porcine) (Heparin Sodium,Porcine 5,000 Unit/Ml Vial) 5,000 unit SUBCUT TID [facility] Last Admin: 09/09/23 21:47 Dose: 5,000 unit Documented By: VICKIEASY Hydrocortisone (Hydrocortisone 1 % Cream 28.35 Gm Tube) 1 appl TOPICAL DAILY [facility]; Protocol Last Admin: 09/09/23 07:39 Dose: Not Given Documented By: COTEMA Non-Admin Reason: Patient Refused Dextrose (D10) 250 mls @ 750 mls/hr IV Q15M PRN PRN Reason: per Hypoglycemia Standing Ord. Lidocaine (Lidocaine 4 % Patch Adh..Patch) 1 patch TRANSDERMA DAILY [facility] Last Admin: 09/09/23 08:02 Dose: 1 patch Documented By: OSCAR Midodrine (Midodrine Hcl 10 Mg Tablet) 10 mg PO TIDWM [facility] Last Admin: 09/09/23 16:05 Dose: Not Given Documented By: OSCAR Non-Admin Reason: bp okay Multi-Ingred Cream/Lotion/Oil/Oint (Mineral Oil/Petrolatum,White 106 Gm Tube) 1 appl TOPICAL BID [facility]; Protocol Last Admin: 09/09/23 21:54 Dose: Not Given Documented By: ROLANDO Non-Admin Reason: pt refused; reports no rash Nystatin (Nystatin Powder 15 Gm Bottle) 1 appl TOPICAL BID [facility]; Protocol Last Admin: 09/09/23 21:54 Dose: 1 appl Documented By: ROLANDO Ondansetron HCl (Ondansetron Odt 4 Mg Tab.Rapdis) 4 mg TRANSLINGU Q6H PRN PRN Reason: Nausea and Vomiting Polyethylene Glycol (Polyethylene Glycol 3350 17 Gm Powd.Pack) 17 gm PO DAILY [facility] Last Admin: 09/09/23 07:39 Dose: Not Given Documented By: OSCAR Non-Admin Reason: Patient Refused Sertraline HCl (Sertraline Hcl 25 Mg Tablet) 12.5 mg PO BEDTIME [facility] Last Admin: 09/09/23 21:47 Dose: 12.5 mg Documented By: ROLANDO Trazodone HCl (Trazodone Hcl 25 Mg Halftab) 25 mg PO BEDTIME [facility] Last Admin: 09/09/23 21:47 Dose: 25 mg Documented By: ROLANDO Labs 08/23/23 06:58 08/30/23 08:15 Labs: Laboratory Results - last 24 hr 09/09/23 14:17 Hep Bs Antigen Negative Hep Bs Antibody GRAYZONE Hep B Core Total Ab Nonreactive Assessment and Plan (1) Acute renal failure: Status: Acute Plan 53M PMH of DM2, HTN, Asthma who presented to ED After sustaining a fall and laying on the floor for 9 hours found to have severe acute kidney injury from rhabdomyolysis complicated by hyperkalemia CHITO and severe hyperkalemia and acute metabolic acidosis due to ATN from rhabdomyolysis and no renal recovery and started on HD, TTS, permacath placed 07/16/23. receiving dialysis MWF on midodrine 10 mg t.i.d. due to recurrent episodes of dizziness and weakness with physical therapy. Chronic Leg and back pain Stable, continue gabapentin 100mg BID/ Depression. unspecified No behavioral issues, seen by psychiatry 08/23, they recommended decrease dose of Abilify to 2.5 mg daily ,since it can cause orthostasis, decrease dose of trazodone to 25 mg at bedtime and Zoloft low-dose added continue to encourage participation in PT Acute?Rhabdomyolysis resolved Diabetes type 2 acceptable controlnot on meds, hemoglobin A1c 6.1 on 12/31. PT recommend short-term rehab/recommend out of bed to chair for all meals Heparin Full code reason for continued hospitalization: debilitated / depressed, safe discharge to short-term rehab. Quality Stroke Does the patient have a stroke diagnosis?: No VTE Prior VTE?: No VTE Risk Level:: Medical - moderate - high VTE Device Contraindication: N/A - Device Ordered VTE Drug Contraindication: N/A - Med Ordered
--- NOTE | 2023-09-10 10:38 | MHC.CM.PN ---
BROAD FACILITY SEARCH CONTINUES, REFERRALS EXPANDED. NO BED OFFERS. PT WILL NEED A NEW HD SLOT TO BE SET UP ONCE A CENTER IS SECURE HE HAS LOST HIS SLOT IN [place]. CM WILL CONTINUE TO SEEK SNF PLACEMENT AND FOLLOW FOR ANY CHANGE IN DC NEEDS.
[2023-09-10 11:05] VITALS: BP 98/64; PULSE 122; RESP 20; TEMP 36; O2SAT 97
[2023-09-10] MEDS: polyethylene glycoL 3350 17 GM POWD.PACK PO (11:50)
[2023-09-10] MEDS: Lidocaine 4 % Patch ADH..PATCH 1 PATCH TRANSDERMA (11:51)
[2023-09-10] MEDS: Midodrine HCl 10 MG TABLET PO ×2 (11:51→16:56)
[2023-09-10] MEDS: ARIPiprazole 5 MG TABLET 2.5 MG PO (11:52)
[2023-09-10] MEDS: Gabapentin 100 MG CAPSULE PO ×2 (11:52→20:29)
[2023-09-10] MEDS: Fluticasone Propionate Nasal 16 GM SPRAY 2 SPRAY NOSTRIL-B (11:55)
[2023-09-10] MEDS: Nystatin Powder 15 GM BOTTLE 1 APPL TOPICAL ×2 (11:55→20:30)
--- NOTE | 2023-09-10 13:06 | P.PNNP_ITS ---
Subjective Subjective Date of Service: 09/10/23 Principal diagnosis: Elevated troponins Interval history: no acute complaints; seen on HD; discussed with hd RN Physical Exam 2 Vital Signs: Vital Signs: Last Vital Signs Temp 96.8 F 09/10/23 11:05 Pulse 122 H 09/10/23 11:05 Resp 20 09/10/23 11:05 BP 98/64 09/10/23 11:05 Pulse Ox 97 09/10/23 11:05 O2 Del Method Room Air 09/10/23 11:05 O2 Flow Rate 2 07/26/23 11:35 BMI result Body Mass Index 49.2 Const: General: comfortable and no acute distress HEENT: Head: Yes normocephalic Mouth: Normal oral and palatal mucosa present Eyes: EOM: EOMs intact bilaterally Neck: Neck: Yes supple Resp: Auscultation: clear to auscultation bilaterally Cardio: Jugular venous distension: no JVD Rate: regular rate GI: Palpation (GI): Soft to palpation Auscultation: normal bowel sounds : General: Yes no CVA tenderness Back/Spine/Pelvis: Back: no CVA tenderness Skin: General skin exam: no rashes or lesions noted Neuro: General: moves all extremities Objective Data Labs 08/23/23 06:58 08/30/23 08:15 Labs: Laboratory Results - last 24 hr 09/09/23 14:17 Hep Bs Antigen Negative Hep Bs Antibody GRAYZONE Hep B Core Total Ab Nonreactive Microbiology Microbiology Results: Microbiology 07/20/23 22:49 Blood - Venous Blood Culture - Final No growth after 5 days. 07/20/23 22:49 Blood - Venous Blood Culture - Final No growth after 5 days. 07/12/23 12:30 Blood - Venous Blood Culture - Final No growth after 5 days. 07/12/23 12:15 Blood - Venous Blood Culture - Final No growth after 5 days. 07/12/23 Unknown Urine Catheterized - Straight Catheter Urine Culture - Final No growth. 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 Monitor function for any possible renal recovery; C/W rest of current management Progress Note: Quality Stroke Does the patient have a stroke diagnosis?: No
[2023-09-10 15:41] VITALS: BP 120/76; PULSE 112; RESP 18; TEMP 36.4; O2SAT 97
[2023-09-10] MEDS: Heparin Sodium,Porcine 5,000 UNIT/ML VIAL 5000 UNIT SUBCUT ×2 (16:55→20:29)
[2023-09-10] MEDS: Sertraline HCL 25 MG TABLET 12.5 MG PO (20:28)
[2023-09-10] MEDS: traZODone HCL 25 MG HALFTAB PO (20:29)
[2023-09-10 23:36] VITALS: BP 130/72; PULSE 121; RESP 18; TEMP 36.3; O2SAT 98
[2023-09-11] MEDS: Acetaminophen 325 MG TABLET 650 MG PO ×3 (01:42→21:05)
[2023-09-11 07:59] VITALS: BP 108/70; PULSE 97; RESP 16; TEMP 36.2; O2SAT 97
[2023-09-11] MEDS: Heparin Sodium,Porcine 5,000 UNIT/ML VIAL 5000 UNIT SUBCUT ×3 (08:32→21:08)
[2023-09-11] MEDS: ARIPiprazole 5 MG TABLET 2.5 MG PO (08:32)
[2023-09-11] MEDS: Midodrine HCl 10 MG TABLET PO ×3 (08:32→16:04)
[2023-09-11] MEDS: Gabapentin 100 MG CAPSULE PO ×2 (08:32→21:08)
[2023-09-11] MEDS: Fluticasone Propionate Nasal 16 GM SPRAY 2 SPRAY NOSTRIL-B (08:33)
[2023-09-11] MEDS: Lidocaine 4 % Patch ADH..PATCH 1 PATCH TRANSDERMA (08:33)
[2023-09-11] MEDS: polyethylene glycoL 3350 17 GM POWD.PACK PO (08:33)
--- NOTE | 2023-09-11 08:37 | P.PNIM_ITS ---
Subjective Subjective Date of Service: 09/11/23 Interval History: no acute complaints Physical Exam 2 Vital Signs: Vital Signs: Last Vital Signs Temp 97.2 F 09/11/23 07:59 Pulse 97 09/11/23 07:59 Resp 16 09/11/23 07:59 BP 108/70 09/11/23 07:59 Pulse Ox 97 09/11/23 07:59 O2 Del Method Room Air 09/11/23 07:59 O2 Flow Rate 2 07/26/23 11:35 BMI result Body Mass Index 49.2 Const: General: comfortable and no acute distress HEENT: Head: Yes normocephalic Mouth: Normal oral and palatal mucosa present Eyes: EOM: EOMs intact bilaterally Neck: Neck: Yes supple Resp: Auscultation: clear to auscultation bilaterally Cardio: Jugular venous distension: no JVD Rate: regular rate GI: Palpation (GI): Soft to palpation Auscultation: normal bowel sounds : General: Yes no CVA tenderness Back/Spine/Pelvis: Back: no CVA tenderness Skin: General skin exam: no rashes or lesions noted Neuro: General: moves all extremities Objective Data Active Medications Acetaminophen (Acetaminophen 325 Mg Tablet) 650 mg PO Q4H PRN PRN Reason: Pain, Moderate(Pain Scale 4-6) Last Admin: 09/11/23 01:42 Dose: 650 mg Documented By: MIKAL Aripiprazole (Aripiprazole 5 Mg Tablet) 2.5 mg PO DAILY [facility] Last Admin: 09/10/23 11:52 Dose: 2.5 mg Documented By: MONICA Fluticasone Propionate (Fluticasone Propionate Nasal 16 Gm [place]) 2 spray NOSTRIL-B DAILY [facility] Last Admin: 09/10/23 11:55 Dose: 2 spray Documented By: MONICA Gabapentin (Gabapentin 100 Mg Capsule) 100 mg PO BID [facility] Last Admin: 09/10/23 20:29 Dose: 100 mg Documented By: SERA Heparin Sodium (Porcine) (Heparin Sodium,Porcine 5,000 Unit/Ml Vial) 5,000 unit SUBCUT TID [facility] Last Admin: 09/10/23 20:29 Dose: 5,000 unit Documented By: SERA Hydrocortisone (Hydrocortisone 1 % Cream 28.35 Gm Tube) 1 appl TOPICAL DAILY [facility]; Protocol Last Admin: 09/10/23 11:57 Dose: Not Given Documented By: MONICA Non-Admin Reason: Med Not Available Dextrose (D10) 250 mls @ 750 mls/hr IV Q15M PRN PRN Reason: per Hypoglycemia Standing Ord. Lidocaine (Lidocaine 4 % Patch Adh..Patch) 1 patch TRANSDERMA DAILY [facility] Last Admin: 09/10/23 11:51 Dose: 1 patch Documented By: MONICA Midodrine (Midodrine Hcl 10 Mg Tablet) 10 mg PO TIDWM [facility] Last Admin: 09/10/23 16:56 Dose: 10 mg Documented By: MONICA Multi-Ingred Cream/Lotion/Oil/Oint (Mineral Oil/Petrolatum,White 106 Gm Tube) 1 appl TOPICAL BID [facility]; Protocol Last Admin: 09/10/23 22:29 Dose: Not Given Documented By: SERA Non-Admin Reason: Med Not Available Nystatin (Nystatin Powder 15 Gm Bottle) 1 appl TOPICAL BID [facility]; Protocol Last Admin: 09/10/23 20:30 Dose: 1 appl Documented By: SERA Ondansetron HCl (Ondansetron Odt 4 Mg Tab.Rapdis) 4 mg TRANSLINGU Q6H PRN PRN Reason: Nausea and Vomiting Polyethylene Glycol (Polyethylene Glycol 3350 17 Gm Powd.Pack) 17 gm PO DAILY [facility] Last Admin: 09/10/23 11:50 Dose: 17 gm Documented By: MONICA Sertraline HCl (Sertraline Hcl 25 Mg Tablet) 12.5 mg PO BEDTIME [facility] Last Admin: 09/10/23 20:28 Dose: 12.5 mg Documented By: SERA Trazodone HCl (Trazodone Hcl 25 Mg Halftab) 25 mg PO BEDTIME [facility] Last Admin: 09/10/23 20:29 Dose: 25 mg Documented By: SERA Labs 08/23/23 06:58 08/30/23 08:15 Assessment and Plan (1) Acute renal failure: Status: Acute Plan 53M PMH of DM2, HTN, Asthma who presented to ED After sustaining a fall and laying on the floor for 9 hours found to have severe acute kidney injury from rhabdomyolysis complicated by hyperkalemia CHITO and severe hyperkalemia and acute metabolic acidosis due to ATN from rhabdomyolysis and no renal recovery and started on HD, TTS, permacath placed 07/16/23. receiving dialysis MWF on midodrine 10 mg t.i.d. due to recurrent episodes of dizziness and weakness with physical therapy. Chronic Leg and back pain Stable, continue gabapentin 100mg BID/ Depression. unspecified No behavioral issues, seen by psychiatry 08/23, they recommended decrease dose of Abilify to 2.5 mg daily ,since it can cause orthostasis, decrease dose of trazodone to 25 mg at bedtime and Zoloft low-dose added continue to encourage participation in PT Acute?Rhabdomyolysis resolved Diabetes type 2 acceptable controlnot on meds, hemoglobin A1c 6.1 on 12/31. PT recommend short-term rehab/recommend out of bed to chair for all meals Heparin Full code reason for continued hospitalization: debilitated / depressed, safe discharge to short-term rehab. Quality Stroke Does the patient have a stroke diagnosis?: No VTE Prior VTE?: No VTE Risk Level:: Medical - moderate - high VTE Device Contraindication: N/A - Device Ordered VTE Drug Contraindication: N/A - Med Ordered
[2023-09-11 15:13] VITALS: BP 137/97; PULSE 88; RESP 18; TEMP 36.4; O2SAT 96
[2023-09-11 19:17] VITALS: BP 119/85; PULSE 79; RESP 18; TEMP 36.2; O2SAT 94
[2023-09-11] MEDS: Sertraline HCL 25 MG TABLET 12.5 MG PO (21:06)
[2023-09-11] MEDS: traZODone HCL 25 MG HALFTAB PO (21:08)
[2023-09-12] VITALS: BP 111/71; PULSE 93; RESP 16; TEMP 36.1; O2SAT 96
[2023-09-12 08:00] VITALS: BP 97/65; PULSE 100; RESP 14; TEMP 36.4; O2SAT 99
--- NOTE | 2023-09-12 08:02 | P.PNIM_ITS ---
Subjective Subjective Date of Service: 09/12/23 Interval History: no acute complaints Physical Exam 2 Vital Signs: Vital Signs: Last Vital Signs Temp 96.9 F 09/12/23 00:00 Pulse 93 09/12/23 00:00 Resp 16 09/12/23 00:00 BP 111/71 09/12/23 00:00 Pulse Ox 96 09/12/23 00:00 O2 Del Method Room Air 09/12/23 00:00 O2 Flow Rate 2 07/26/23 11:35 BMI result Body Mass Index 49.2 Const: General: comfortable and no acute distress HEENT: Head: Yes normocephalic Mouth: Normal oral and palatal mucosa present Eyes: EOM: EOMs intact bilaterally Neck: Neck: Yes supple Resp: Auscultation: clear to auscultation bilaterally Cardio: Jugular venous distension: no JVD Rate: regular rate GI: Palpation (GI): Soft to palpation Auscultation: normal bowel sounds : General: Yes no CVA tenderness Back/Spine/Pelvis: Back: no CVA tenderness Skin: General skin exam: no rashes or lesions noted Neuro: General: moves all extremities Objective Data Active Medications Acetaminophen (Acetaminophen 325 Mg Tablet) 650 mg PO Q4H PRN PRN Reason: Pain, Moderate(Pain Scale 4-6) Last Admin: 09/11/23 21:05 Dose: 650 mg Documented By: MIKAL Comments: per pt request Aripiprazole (Aripiprazole 5 Mg Tablet) 2.5 mg PO DAILY [facility] Last Admin: 09/11/23 08:32 Dose: 2.5 mg Documented By: MIKE Fluticasone Propionate (Fluticasone Propionate Nasal 16 Gm [place]) 2 spray NOSTRIL-B DAILY [facility] Last Admin: 09/11/23 08:33 Dose: 2 spray Documented By: MIKE Gabapentin (Gabapentin 100 Mg Capsule) 100 mg PO BID [facility] Last Admin: 09/11/23 21:08 Dose: 100 mg Documented By: MIKAL Heparin Sodium (Porcine) (Heparin Sodium,Porcine 5,000 Unit/Ml Vial) 5,000 unit SUBCUT TID [facility] Last Admin: 09/11/23 21:08 Dose: 5,000 unit Documented By: MIKAL Hydrocortisone (Hydrocortisone 1 % Cream 28.35 Gm Tube) 1 appl TOPICAL DAILY [facility]; Protocol Last Admin: 09/11/23 08:47 Dose: Not Given Documented By: MIKE Non-Admin Reason: Patient Refused Dextrose (D10) 250 mls @ 750 mls/hr IV Q15M PRN PRN Reason: per Hypoglycemia Standing Ord. Lidocaine (Lidocaine 4 % Patch Adh..Patch) 1 patch TRANSDERMA DAILY [facility] Last Admin: 09/11/23 08:33 Dose: 1 patch Documented By: MIKE Midodrine (Midodrine Hcl 10 Mg Tablet) 10 mg PO TIDWM [facility] Last Admin: 09/11/23 16:04 Dose: 10 mg Documented By: MIKE Multi-Ingred Cream/Lotion/Oil/Oint (Mineral Oil/Petrolatum,White 106 Gm Tube) 1 appl TOPICAL BID [facility]; Protocol Last Admin: 09/11/23 20:39 Dose: Not Given Documented By: MIKAL Non-Admin Reason: Patient Refused Nystatin (Nystatin Powder 15 Gm Bottle) 1 appl TOPICAL BID [facility]; Protocol Last Admin: 09/11/23 20:39 Dose: Not Given Documented By: MIKAL Non-Admin Reason: Patient Refused Ondansetron HCl (Ondansetron Odt 4 Mg Tab.Rapdis) 4 mg TRANSLINGU Q6H PRN PRN Reason: Nausea and Vomiting Polyethylene Glycol (Polyethylene Glycol 3350 17 Gm Powd.Pack) 17 gm PO DAILY [facility] Last Admin: 09/11/23 08:33 Dose: 17 gm Documented By: MIKE Sertraline HCl (Sertraline Hcl 25 Mg Tablet) 12.5 mg PO BEDTIME [facility] Last Admin: 09/11/23 21:06 Dose: 12.5 mg Documented By: MIKAL Trazodone HCl (Trazodone Hcl 25 Mg Halftab) 25 mg PO BEDTIME [facility] Last Admin: 09/11/23 21:08 Dose: 25 mg Documented By: MIKAL Labs 08/23/23 06:58 08/30/23 08:15 Assessment and Plan (1) Acute renal failure: Status: Acute Plan 53M PMH of DM2, HTN, Asthma who presented to ED After sustaining a fall and laying on the floor for 9 hours found to have severe acute kidney injury from rhabdomyolysis complicated by hyperkalemia CHITO and severe hyperkalemia and acute metabolic acidosis due to ATN from rhabdomyolysis and no renal recovery and started on HD, TTS, permacath placed 07/16/23. receiving dialysis MWF on midodrine 10 mg t.i.d. due to recurrent episodes of dizziness and weakness with physical therapy. Chronic Leg and back pain Stable, continue gabapentin 100mg BID/ Depression. unspecified No behavioral issues, seen by psychiatry 08/23, they recommended decrease dose of Abilify to 2.5 mg daily ,since it can cause orthostasis, decrease dose of trazodone to 25 mg at bedtime and Zoloft low-dose added continue to encourage participation in PT Acute?Rhabdomyolysis resolved Diabetes type 2 acceptable controlnot on meds, hemoglobin A1c 6.1 on 12/31. PT recommend short-term rehab/recommend out of bed to chair for all meals Heparin Full code reason for continued hospitalization: debilitated / depressed, safe discharge to short-term rehab. Quality Stroke Does the patient have a stroke diagnosis?: No VTE Prior VTE?: No VTE Risk Level:: Medical - moderate - high VTE Device Contraindication: N/A - Device Ordered VTE Drug Contraindication: N/A - Med Ordered
[2023-09-12 08:11] LABS: Glucose, Whole Blood 93 mg/dL (60-115)
[2023-09-12] MEDS: Midodrine HCl 10 MG TABLET PO ×3 (08:49→16:02)
[2023-09-12] MEDS: Heparin Sodium,Porcine 5,000 UNIT/ML VIAL 5000 UNIT SUBCUT ×3 (08:49→20:43)
[2023-09-12] MEDS: Lidocaine 4 % Patch ADH..PATCH 1 PATCH TRANSDERMA (08:49)
[2023-09-12] MEDS: ARIPiprazole 5 MG TABLET 2.5 MG PO (08:49)
[2023-09-12] MEDS: Gabapentin 100 MG CAPSULE PO ×2 (08:49→20:44)
[2023-09-12] MEDS: polyethylene glycoL 3350 17 GM POWD.PACK PO (08:49)
[2023-09-12] MEDS: Fluticasone Propionate Nasal 16 GM SPRAY 2 SPRAY NOSTRIL-B (08:50)
[2023-09-12 11:21] LABS: Glucose, Whole Blood 91 mg/dL (60-115)
[2023-09-12 16:00] VITALS: BP 115/71; PULSE 92; RESP 12; TEMP 36.2; O2SAT 95
[2023-09-12 20:09] LABS: Glucose, Whole Blood 101 mg/dL (60-115)
[2023-09-12] MEDS: Acetaminophen 325 MG TABLET 650 MG PO (20:43)
[2023-09-12] MEDS: traZODone HCL 25 MG HALFTAB PO (20:44)
[2023-09-12] MEDS: Sertraline HCL 25 MG TABLET 12.5 MG PO (20:44)
[2023-09-13] VITALS: BP 99/67; PULSE 88; RESP 18; TEMP 36; O2SAT 96
[2023-09-13 08:02] VITALS: BP 118/70; PULSE 99; RESP 12; TEMP 36.6; O2SAT 97
[2023-09-13 08:08] LABS: Glucose, Whole Blood 113 mg/dL (60-115)
--- NOTE | 2023-09-13 08:18 | HO.PM.IMPN ---
Subjective Subjective Date of Service: 09/13/23 Interval History: no acute complaints Physical Exam Vital Signs: Vital Signs: Last Vital Signs Temp 98 F 09/13/23 08:02 Pulse 99 09/13/23 08:02 Resp 12 09/13/23 08:02 BP 118/70 09/13/23 08:02 Pulse Ox 97 09/13/23 08:02 O2 Del Method Room Air 09/13/23 08:02 O2 Flow Rate 2 07/26/23 11:35 BMI result Body Mass Index 49.2 Const: General: comfortable and no acute distress HEENT: Head: Yes normocephalic Mouth: Normal oral and palatal mucosa present Eyes: EOM: EOMs intact bilaterally Neck: Neck: Yes supple Resp: Auscultation: clear to auscultation bilaterally Cardio: Jugular venous distension: no JVD Rate: regular rate GI: Palpation (GI): Soft to palpation Auscultation: normal bowel sounds : General: Yes no CVA tenderness Back/Spine/Pelvis: Back: no CVA tenderness Skin: General skin exam: no rashes or lesions noted Neuro: General: moves all extremities Objective Data Active Medications Acetaminophen (Acetaminophen 325 Mg Tablet) 650 mg PO Q4H PRN PRN Reason: Pain, Moderate(Pain Scale 4-6) Last Admin: 09/12/23 20:43 Dose: 650 mg Documented By: KASI Aripiprazole (Aripiprazole 5 Mg Tablet) 2.5 mg PO DAILY [facility] Last Admin: 09/12/23 08:49 Dose: 2.5 mg Documented By: MIKE Fluticasone Propionate (Fluticasone Propionate Nasal 16 Gm [place]) 2 spray NOSTRIL-B DAILY [facility] Last Admin: 09/12/23 08:50 Dose: 2 spray Documented By: MIKE Gabapentin (Gabapentin 100 Mg Capsule) 100 mg PO BID [facility] Last Admin: 09/12/23 20:44 Dose: 100 mg Documented By: KASI Heparin Sodium (Porcine) (Heparin Sodium,Porcine 5,000 Unit/Ml Vial) 5,000 unit SUBCUT TID [facility] Last Admin: 09/12/23 20:43 Dose: 5,000 unit Documented By: KASI Hydrocortisone (Hydrocortisone 1 % Cream 28.35 Gm Tube) 1 appl TOPICAL DAILY [facility]; Protocol Last Admin: 09/12/23 10:14 Dose: Not Given Documented By: MIKE Non-Admin Reason: Patient Refused Dextrose (D10) 250 mls @ 750 mls/hr IV Q15M PRN PRN Reason: per Hypoglycemia Standing Ord. Lidocaine (Lidocaine 4 % Patch Adh..Patch) 1 patch TRANSDERMA DAILY [facility] Last Admin: 09/12/23 08:49 Dose: 1 patch Documented By: MIKE Midodrine (Midodrine Hcl 10 Mg Tablet) 10 mg PO TIDWM [facility] Last Admin: 09/12/23 16:02 Dose: 10 mg Documented By: MIKE Multi-Ingred Cream/Lotion/Oil/Oint (Mineral Oil/Petrolatum,White 106 Gm Tube) 1 appl TOPICAL BID [facility]; Protocol Last Admin: 09/12/23 20:50 Dose: Not Given Documented By: KASI Non-Admin Reason: Patient Refused Comments: pt reports a rash after using cream Nystatin (Nystatin Powder 15 Gm Bottle) 1 appl TOPICAL BID [facility]; Protocol Last Admin: 09/12/23 20:50 Dose: Not Given Documented By: KASI Non-Admin Reason: Patient Refused Ondansetron HCl (Ondansetron Odt 4 Mg Tab.Rapdis) 4 mg TRANSLINGU Q6H PRN PRN Reason: Nausea and Vomiting Polyethylene Glycol (Polyethylene Glycol 3350 17 Gm Powd.Pack) 17 gm PO DAILY [facility] Last Admin: 09/12/23 08:49 Dose: 17 gm Documented By: MIKE Sertraline HCl (Sertraline Hcl 25 Mg Tablet) 12.5 mg PO BEDTIME [facility] Last Admin: 09/12/23 20:44 Dose: 12.5 mg Documented By: KASI Trazodone HCl (Trazodone Hcl 25 Mg Halftab) 25 mg PO BEDTIME [facility] Last Admin: 09/12/23 20:44 Dose: 25 mg Documented By: KASI Labs 08/23/23 06:58 08/30/23 08:15 Labs: Laboratory Results - last 24 hr 09/12/23 09/12/23 09/13/23 11:17 19:48 08:03 POC Glucose 91 101 113 Assessment and Plan (1) Acute renal failure: Status: Acute Plan 53M PMH of DM2, HTN, Asthma who presented to ED After sustaining a fall and laying on the floor for 9 hours found to have severe acute kidney injury from rhabdomyolysis complicated by hyperkalemia CHITO and severe hyperkalemia and acute metabolic acidosis due to ATN from rhabdomyolysis and no renal recovery and started on HD, TTS, permacath placed 07/16/23. receiving dialysis MWF on midodrine 10 mg t.i.d. due to recurrent episodes of dizziness and weakness with physical therapy. Chronic Leg and back pain Stable, continue gabapentin 100mg BID/ Depression. unspecified No behavioral issues, seen by psychiatry 08/23, they recommended decrease dose of Abilify to 2.5 mg daily ,since it can cause orthostasis, decrease dose of trazodone to 25 mg at bedtime and Zoloft low-dose added continue to encourage participation in PT Acute?Rhabdomyolysis resolved Diabetes type 2 acceptable controlnot on meds, hemoglobin A1c 6.1 on 12/31. PT recommend short-term rehab/recommend out of bed to chair for all meals Heparin Full code reason for continued hospitalization: debilitated / depressed, safe discharge to short-term rehab. Quality Stroke Does the patient have a stroke diagnosis?: No VTE Prior VTE?: No VTE Risk Level:: Medical - moderate - high VTE Device Contraindication: N/A - Device Ordered VTE Drug Contraindication: N/A - Med Ordered
[2023-09-13] MEDS: Gabapentin 100 MG CAPSULE PO ×2 (08:29→20:25)
[2023-09-13] MEDS: ARIPiprazole 5 MG TABLET 2.5 MG PO (08:29)
[2023-09-13] MEDS: Midodrine HCl 10 MG TABLET PO ×3 (08:29→16:00)
[2023-09-13] MEDS: Lidocaine 4 % Patch ADH..PATCH 1 PATCH TRANSDERMA (08:29)
[2023-09-13] MEDS: Fluticasone Propionate Nasal 16 GM SPRAY 2 SPRAY NOSTRIL-B (08:31)
[2023-09-13] MEDS: Nystatin Powder 15 GM BOTTLE 1 APPL TOPICAL (08:31)
--- NOTE | 2023-09-13 10:26 | P.PNNP_ITS ---
Subjective Subjective Date of Service: 09/13/23 Principal diagnosis: Elevated troponins Interval history: No acute complaints. Seen this morning on dialysis. All recent data reviewed. Discussed with dialysis nurse Physical Exam 2 Vital Signs: Vital Signs: Last Vital Signs Temp 98 F 09/13/23 08:02 Pulse 99 09/13/23 08:02 Resp 12 09/13/23 08:02 BP 118/70 09/13/23 08:02 Pulse Ox 97 09/13/23 08:02 O2 Del Method Room Air 09/13/23 08:02 O2 Flow Rate 2 07/26/23 11:35 BMI result Body Mass Index 49.2 Const: General: comfortable and no acute distress O rientation/consciousness: patient oriented x3 HEENT: Head: Yes normocephalic Mouth: Normal oral and palatal mucosa present Eyes: EOM: EOMs intact bilaterally Neck: Neck: Yes supple Resp: Auscultation: clear to auscultation bilaterally Cardio: Jugular venous distension: no JVD Rate: regular rate GI: Palpation (GI): Soft to palpation Auscultation: normal bowel sounds : General: Yes no CVA tenderness Back/Spine/Pelvis: Back: no CVA tenderness Skin: General skin exam: no rashes or lesions noted Neuro: General: patient oriented x3 and moves all extremities Extrem: General: Yes no pedal edema Objective Data Labs 08/23/23 06:58 08/30/23 08:15 Labs: Laboratory Results - last 24 hr 09/12/23 09/12/23 09/13/23 11:17 19:48 08:03 POC Glucose 91 101 113 Microbiology Microbiology Results: Microbiology 07/20/23 22:49 Blood - Venous Blood Culture - Final No growth after 5 days. 07/20/23 22:49 Blood - Venous Blood Culture - Final No growth after 5 days. 07/12/23 12:30 Blood - Venous Blood Culture - Final No growth after 5 days. 07/12/23 12:15 Blood - Venous Blood Culture - Final No growth after 5 days. 07/12/23 Unknown Urine Catheterized - Straight Catheter Urine Culture - Final No growth. 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 Monitor function for any possible renal recovery; C/W rest of current management Progress Note: Quality Stroke Does the patient have a stroke diagnosis?: No
[2023-09-13 13:18] VITALS: BP 142/76; PULSE 105; RESP 12; TEMP 36.4; O2SAT 97
[2023-09-13 13:18] LABS: Glucose, Whole Blood 90 mg/dL (60-115)
[2023-09-13 13:47] VITALS: BP 103/74; PULSE 120; O2SAT 100
[2023-09-13] MEDS: Heparin Sodium,Porcine 5,000 UNIT/ML VIAL 5000 UNIT SUBCUT ×2 (16:00→20:26)
[2023-09-13 16:10] LABS: Glucose, Whole Blood 118 mg/dL (60-115)
[2023-09-13 16:14] VITALS: BP 108/64; PULSE 97; RESP 18; TEMP 36.4; O2SAT 97
[2023-09-13 19:13] VITALS: BP 115/75; PULSE 86; RESP 16; TEMP 36.6; O2SAT 97
[2023-09-13] MEDS: Sertraline HCL 25 MG TABLET 12.5 MG PO (20:23)
[2023-09-13] MEDS: traZODone HCL 25 MG HALFTAB PO (20:25)
[2023-09-13] MEDS: Acetaminophen 325 MG TABLET 650 MG PO (20:26)
[2023-09-14 06:19] LABS: Hematocrit 33.4 % (42.0-52.0); Mean Corpuscular HGB Conc 32.9 g/dl (31.0-36.0); Mean Corpuscular Hemoglobin 29.4 pg (27.0-33.0); Mean Corpuscular Volume 89.3 fL (80.0-98.0); Mean Platelet Volume 8.4 fL (9.4-12.4); Platelet Count 258 X10*3/uL (160-400); Red Blood Count 3.74 X10*6/uL (4.60-5.80); Red Cell Distribution Width 14.5 % (11.0-16.0); White Blood Count 9.3 X10*3/uL (4.8-10.8)
[2023-09-14 06:45] LABS: Anion Gap 18 (12-20); Blood Urea Nitrogen 43 mg/dL (9-16); Calcium 10.8 mg/dL (8.4-10.2); Carbon Dioxide 20 mmol/L (22-29); Chloride 98 mmol/L (96-108); Creatinine Clr Calc Pharmacy 14.7; Estimated Glomerular Filt Rate 7; Glucose Fasting 99 mg/dL (60-99); Magnesium 2.3 mg/dL (1.6-2.6); Potassium 4.1 mmol/L (3.3-5.1); Sodium 132 mmol/L (135-145)
[2023-09-14 07:48] LABS: Glucose, Whole Blood 94 mg/dL (60-115)
[2023-09-14] MEDS: Gabapentin 100 MG CAPSULE PO ×2 (07:57→20:44)
[2023-09-14] MEDS: Heparin Sodium,Porcine 5,000 UNIT/ML VIAL 5000 UNIT SUBCUT ×3 (07:57→20:44)
[2023-09-14] MEDS: Midodrine HCl 10 MG TABLET PO ×3 (07:57→16:00)
[2023-09-14] MEDS: Lidocaine 4 % Patch ADH..PATCH 1 PATCH TRANSDERMA (07:57)
[2023-09-14] MEDS: ARIPiprazole 5 MG TABLET 2.5 MG PO (07:57)
[2023-09-14] MEDS: Fluticasone Propionate Nasal 16 GM SPRAY 2 SPRAY NOSTRIL-B (07:58)
[2023-09-14] MEDS: Nystatin Powder 15 GM BOTTLE 1 APPL TOPICAL (07:58)
[2023-09-14 08:00] VITALS: BP 90/70; PULSE 96
[2023-09-14] MEDS: polyethylene glycoL 3350 17 GM POWD.PACK PO (08:02)
[2023-09-14 08:14] VITALS: RESP 12; TEMP 37; O2SAT 97
--- NOTE | 2023-09-14 09:06 | P.PNIM_ITS ---
Subjective Subjective Date of Service: 09/14/23 Interval History: no acute complaints Physical Exam 2 Vital Signs: Vital Signs: Last Vital Signs Temp 98.6 F 09/14/23 08:14 Pulse 96 09/14/23 08:00 Resp 12 09/14/23 08:14 BP 90/70 09/14/23 08:00 Pulse Ox 97 09/14/23 08:14 O2 Del Method Room Air 09/14/23 08:14 O2 Flow Rate 2 07/26/23 11:35 BMI result Body Mass Index 49.2 Const: General: comfortable and no acute distress O rientation/consciousness: patient oriented x3 HEENT: Head: Yes normocephalic Mouth: Normal oral and palatal mucosa present Eyes: EOM: EOMs intact bilaterally Neck: Neck: Yes supple Resp: Auscultation: clear to auscultation bilaterally Cardio: Jugular venous distension: no JVD Rate: regular rate GI: Palpation (GI): Soft to palpation Auscultation: normal bowel sounds : General: Yes no CVA tenderness Back/Spine/Pelvis: Back: no CVA tenderness Skin: General skin exam: no rashes or lesions noted Neuro: General: patient oriented x3 and moves all extremities Extrem: General: Yes no pedal edema Objective Data Active Medications Acetaminophen (Acetaminophen 325 Mg Tablet) 650 mg PO Q4H PRN PRN Reason: Pain, Moderate(Pain Scale 4-6) Last Admin: 09/13/23 20:26 Dose: 650 mg Documented By: KASI Aripiprazole (Aripiprazole 5 Mg Tablet) 2.5 mg PO DAILY [facility] Last Admin: 09/14/23 07:57 Dose: 2.5 mg Documented By: CHUY Fluticasone Propionate (Fluticasone Propionate Nasal 16 Gm [place]) 2 spray NOSTRIL-B DAILY [facility] Last Admin: 09/14/23 07:58 Dose: 2 spray Documented By: CHUY Gabapentin (Gabapentin 100 Mg Capsule) 100 mg PO BID [facility] Last Admin: 09/14/23 07:57 Dose: 100 mg Documented By: CHUY Heparin Sodium (Porcine) (Heparin Sodium,Porcine 5,000 Unit/Ml Vial) 5,000 unit SUBCUT TID [facility] Last Admin: 09/14/23 07:57 Dose: 5,000 unit Documented By: CHUY Hydrocortisone (Hydrocortisone 1 % Cream 28.35 Gm Tube) 1 appl TOPICAL DAILY [facility]; Protocol Last Admin: 09/14/23 07:55 Dose: Not Given Documented By: CHUY Non-Admin Reason: Patient Refused Dextrose (D10) 250 mls @ 750 mls/hr IV Q15M PRN PRN Reason: per Hypoglycemia Standing Ord. Lidocaine (Lidocaine 4 % Patch Adh..Patch) 1 patch TRANSDERMA DAILY [facility] Last Admin: 09/14/23 07:57 Dose: 1 patch Documented By: CHUY Midodrine (Midodrine Hcl 10 Mg Tablet) 10 mg PO TIDWM [facility] Last Admin: 09/14/23 07:57 Dose: 10 mg Documented By: CHUY Multi-Ingred Cream/Lotion/Oil/Oint (Mineral Oil/Petrolatum,White 106 Gm Tube) 1 appl TOPICAL BID [facility]; Protocol Last Admin: 09/14/23 07:55 Dose: Not Given Documented By: CHUY Non-Admin Reason: Patient Refused Nystatin (Nystatin Powder 15 Gm Bottle) 1 appl TOPICAL BID [facility]; Protocol Last Admin: 09/14/23 07:58 Dose: 1 appl Documented By: CHUY Ondansetron HCl (Ondansetron Odt 4 Mg Tab.Rapdis) 4 mg TRANSLINGU Q6H PRN PRN Reason: Nausea and Vomiting Polyethylene Glycol (Polyethylene Glycol 3350 17 Gm Powd.Pack) 17 gm PO DAILY [facility] Last Admin: 09/14/23 08:02 Dose: 17 gm Documented By: CHUY Sertraline HCl (Sertraline Hcl 25 Mg Tablet) 12.5 mg PO BEDTIME [facility] Last Admin: 09/13/23 20:23 Dose: 12.5 mg Documented By: KASI Trazodone HCl (Trazodone Hcl 25 Mg Halftab) 25 mg PO BEDTIME [facility] Last Admin: 09/13/23 20:25 Dose: 25 mg Documented By: KASI Labs 09/14/23 05:31 09/14/23 05:31 Labs: Laboratory Results - last 24 hr 09/13/23 09/13/23 09/14/23 13:12 15:33 05:31 MCV 89.3 MCH 29.4 MCHC 32.9 RDW 14.5 Plt Count 258 MPV 8.4 L Absolute Nucleated RBC 0.000 Nucleated RBC % (auto) 0.0 Anion Gap 18 Estim Creat Clear Calc 14.7 Estimated GFR 7 POC Glucose 90 118 H Fasting Glucose 99 Calcium 10.8 H Magnesium 2.3 09/14/23 07:36 MCV MCH MCHC RDW Plt Count MPV Absolute Nucleated RBC Nucleated RBC % (auto) Anion Gap Estim Creat Clear Calc Estimated GFR POC Glucose 94 Fasting Glucose Calcium Magnesium Assessment and Plan (1) Acute renal failure: Status: Acute Plan 53M PMH of DM2, HTN, Asthma who presented to ED After sustaining a fall and laying on the floor for 9 hours found to have severe acute kidney injury from rhabdomyolysis complicated by hyperkalemia CHITO and severe hyperkalemia and acute metabolic acidosis due to ATN from rhabdomyolysis and no renal recovery and started on HD, TTS, permacath placed 07/16/23. receiving dialysis MWF on midodrine 10 mg t.i.d. due to recurrent episodes of dizziness and weakness with physical therapy. Chronic Leg and back pain Stable, continue gabapentin 100mg BID/ Depression. unspecified No behavioral issues, seen by psychiatry 08/23, they recommended decrease dose of Abilify to 2.5 mg daily ,since it can cause orthostasis, decrease dose of trazodone to 25 mg at bedtime and Zoloft low-dose added continue to encourage participation in PT Acute?Rhabdomyolysis resolved Diabetes type 2 acceptable controlnot on meds, hemoglobin A1c 6.1 on 12/31. PT recommend short-term rehab/recommend out of bed to chair for all meals Heparin Full code reason for continued hospitalization: debilitated / depressed, safe discharge to short-term rehab. Quality Stroke Does the patient have a stroke diagnosis?: No VTE Prior VTE?: No VTE Risk Level:: Medical - moderate - high VTE Device Contraindication: N/A - Device Ordered VTE Drug Contraindication: N/A - Med Ordered
[2023-09-14 11:38] LABS: Glucose, Whole Blood 116 mg/dL (60-115)
--- NOTE | 2023-09-14 12:52 | P.PNNP_ITS ---
Subjective Subjective Date of Service: 09/14/23 Principal diagnosis: Elevated troponins Interval history: No acute complaints. Seen this morning on dialysis. All recent data reviewed. Physical Exam 2 Vital Signs: Vital Signs: Last Vital Signs Temp 98.6 F 09/14/23 08:14 Pulse 96 09/14/23 08:00 Resp 12 09/14/23 08:14 BP 90/70 09/14/23 08:00 Pulse Ox 97 09/14/23 08:14 O2 Del Method Room Air 09/14/23 08:14 O2 Flow Rate 2 07/26/23 11:35 BMI result Body Mass Index 49.2 Const: General: comfortable and no acute distress O rientation/consciousness: patient oriented x3 HEENT: Head: Yes normocephalic Mouth: Normal oral and palatal mucosa present Eyes: EOM: EOMs intact bilaterally Neck: Neck: Yes supple Resp: Auscultation: clear to auscultation bilaterally Cardio: Jugular venous distension: no JVD Rate: regular rate GI: Palpation (GI): Soft to palpation Auscultation: normal bowel sounds : General: Yes no CVA tenderness Back/Spine/Pelvis: Back: no CVA tenderness Skin: General skin exam: no rashes or lesions noted Neuro: General: patient oriented x3 and moves all extremities Extrem: General: Yes no pedal edema Objective Data Labs 09/14/23 05:31 09/14/23 05:31 Labs: Laboratory Results - last 24 hr 09/13/23 09/13/23 09/14/23 13:12 15:33 05:31 WBC 9.3 RBC 3.74 L Hgb 11.0 L Hct 33.4 L MCV 89.3 MCH 29.4 MCHC 32.9 RDW 14.5 Plt Count 258 MPV 8.4 L Absolute Nucleated RBC 0.000 Nucleated RBC % (auto) 0.0 Sodium 132 L Potassium 4.1 Chloride 98 Carbon Dioxide 20 L Anion Gap 18 BUN 43 H Creatinine 8.25 H* Estim Creat Clear Calc 14.7 Estimated GFR 7 POC Glucose 90 118 H Fasting Glucose 99 Calcium 10.8 H Magnesium 2.3 09/14/23 09/14/23 07:36 11:32 WBC RBC Hgb Hct MCV MCH MCHC RDW Plt Count MPV Absolute Nucleated RBC Nucleated RBC % (auto) Sodium Potassium Chloride Carbon Dioxide Anion Gap BUN Creatinine Estim Creat Clear Calc Estimated GFR POC Glucose 94 116 H Fasting Glucose Calcium Magnesium Microbiology Microbiology Results: Microbiology 07/20/23 22:49 Blood - Venous Blood Culture - Final No growth after 5 days. 07/20/23 22:49 Blood - Venous Blood Culture - Final No growth after 5 days. 07/12/23 12:30 Blood - Venous Blood Culture - Final No growth after 5 days. 07/12/23 12:15 Blood - Venous Blood Culture - Final No growth after 5 days. 07/12/23 Unknown Urine Catheterized - Straight Catheter Urine Culture - Final No growth. 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 Monitor function for any possible renal recovery; C/W rest of current management Progress Note: Quality Stroke Does the patient have a stroke diagnosis?: No
--- NOTE | 2023-09-14 14:09 | PC.NURSE ---
pt requesting monetary belonging that is locked in safe downstairs total of $[phone]. Pt requesting to remove $1561 and return $1940 back to safe. This RN, Lead Ella and Patient advocate present in room upon Pt removing said previous amount, New receipt filled out, remaining monetary belonging returned to safe.
[2023-09-14 15:15] VITALS: BP 119/80; PULSE 93; RESP 18; TEMP 36.1; O2SAT 98
[2023-09-14] MEDS: Sertraline HCL 25 MG TABLET 12.5 MG PO (20:44)
[2023-09-14] MEDS: traZODone HCL 25 MG HALFTAB PO (20:44)
[2023-09-14 23:21] VITALS: BP 117/75; PULSE 89; RESP 18; TEMP 36.1; O2SAT 96
[2023-09-15 07:52] VITALS: BP 118/76; PULSE 100; RESP 12; TEMP 36.7; O2SAT 98
[2023-09-15] MEDS: Lidocaine 4 % Patch ADH..PATCH 1 PATCH TRANSDERMA (07:55)
[2023-09-15] MEDS: Heparin Sodium,Porcine 5,000 UNIT/ML VIAL 5000 UNIT SUBCUT ×2 (07:56→20:02)
[2023-09-15] MEDS: ARIPiprazole 5 MG TABLET 2.5 MG PO (07:57)
[2023-09-15] MEDS: Gabapentin 100 MG CAPSULE PO ×2 (07:57→20:02)
[2023-09-15] MEDS: Midodrine HCl 10 MG TABLET PO ×3 (07:57→16:44)
[2023-09-15] MEDS: Fluticasone Propionate Nasal 16 GM SPRAY 2 SPRAY NOSTRIL-B (07:58)
[2023-09-15] MEDS: Nystatin Powder 15 GM BOTTLE 1 APPL TOPICAL (07:59)
[2023-09-15] MEDS: polyethylene glycoL 3350 17 GM POWD.PACK PO (08:00)
--- NOTE | 2023-09-15 12:39 | P.PNNP_ITS ---
Subjective Subjective Date of Service: 09/15/23 Principal diagnosis: Elevated troponins Interval history: No acute complaints. All recent data reviewed. Due HD Physical Exam 2 Vital Signs: Vital Signs: Last Vital Signs Temp 98.0 F 09/15/23 07:52 Pulse 100 09/15/23 07:52 Resp 12 09/15/23 07:52 BP 118/76 09/15/23 07:52 Pulse Ox 98 09/15/23 07:52 O2 Del Method Room Air 09/15/23 07:52 O2 Flow Rate 2 07/26/23 11:35 BMI result Body Mass Index 49.2 Const: General: comfortable and no acute distress O rientation/consciousness: patient oriented x3 HEENT: Head: Yes normocephalic Mouth: Normal oral and palatal mucosa present Eyes: EOM: EOMs intact bilaterally Neck: Neck: Yes supple Resp: Auscultation: clear to auscultation bilaterally Cardio: Jugular venous distension: no JVD Rate: regular rate GI: Palpation (GI): Soft to palpation Auscultation: normal bowel sounds : General: Yes no CVA tenderness Back/Spine/Pelvis: Back: no CVA tenderness Skin: General skin exam: no rashes or lesions noted Neuro: General: patient oriented x3 and moves all extremities Objective Data Labs 09/14/23 05:31 09/14/23 05:31 Microbiology Microbiology Results: Microbiology 07/20/23 22:49 Blood - Venous Blood Culture - Final No growth after 5 days. 07/20/23 22:49 Blood - Venous Blood Culture - Final No growth after 5 days. 07/12/23 12:30 Blood - Venous Blood Culture - Final No growth after 5 days. 07/12/23 12:15 Blood - Venous Blood Culture - Final No growth after 5 days. 07/12/23 Unknown Urine Catheterized - Straight Catheter Urine Culture - Final No growth. 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 Monitor function for any possible renal recovery; C/W rest of current management Progress Note: Quality Stroke Does the patient have a stroke diagnosis?: No
--- NOTE | 2023-09-15 14:52 | HO.PM.IMPN ---
Subjective Subjective Date of Service: 09/15/23 Interval History: Seen and evaluated this morning feeling little stronger participating with PT Review of Systems Review of Systems: Yes all other systems are reviewed and are negative Physical Exam Vital Signs: Vital Signs: Last Vital Signs Temp 98.0 F 09/15/23 07:52 Pulse 100 09/15/23 07:52 Resp 12 09/15/23 07:52 BP 118/76 09/15/23 07:52 Pulse Ox 98 09/15/23 07:52 O2 Del Method Room Air 09/15/23 07:52 O2 Flow Rate 2 07/26/23 11:35 BMI result Body Mass Index 49.2 Const: Other: Constitutional : Awake, morbidly obese, frail looking, not in distress Neck : Normal inspection, Supple Cardiovascular : RRR, no JVP, bilateral lower extremity edema Respiratory : good bilateral air entry, no crackles, no wheezes or rhonchi Gastrointestinal: soft, lax, Non tender Skin : Warm, Dry, Permacath in place Neurological : Alert & oriented, No focal deficit Objective Data Active Medications Acetaminophen (Acetaminophen 325 Mg Tablet) 650 mg PO Q4H PRN PRN Reason: Pain, Moderate(Pain Scale 4-6) Last Admin: 09/13/23 20:26 Dose: 650 mg Documented By: KASI Aripiprazole (Aripiprazole 5 Mg Tablet) 2.[address] [facility] Last Admin: 09/15/23 07:57 Dose: 2.5 mg Documented By: EBONI Fluticasone Propionate (Fluticasone Propionate Nasal 16 Gm [place]) 2 spray NOSTRIL-B DAILY [facility] Last Admin: 09/15/23 07:58 Dose: 2 spray Documented By: EBONI Gabapentin (Gabapentin 100 Mg Capsule) [address] [facility] Last Admin: 09/15/23 07:57 Dose: 100 mg Documented By: EBONI Heparin Sodium (Porcine) (Heparin Sodium,Porcine 5,000 Unit/Ml Vial) 5,[address] [facility] Last Admin: 09/15/23 07:56 Dose: 5,000 unit Documented By: EBONI Hydrocortisone (Hydrocortisone 1 % Cream 28.35 Gm Tube) [address] [facility]; Protocol Last Admin: 09/15/23 07:58 Dose: Not Given Documented By: EBONI Non-Admin Reason: Patient Refused Dextrose (D10) 250 mls @ 750 mls/hr IV Q15M PRN PRN Reason: per Hypoglycemia Standing Ord. Lidocaine (Lidocaine 4 % Patch Adh..Patch) [address] [facility] Last Admin: 09/15/23 07:55 Dose: 1 patch Documented By: EBONI Midodrine (Midodrine Hcl 10 Mg Tablet) [address] [facility] Last Admin: 09/15/23 11:11 Dose: 10 mg Documented By: RITAARTEric Multi-Ingred Cream/Lotion/Oil/Oint (Mineral Oil/Petrolatum,White 106 Gm Tube) 1 appl TOPICAL BID [facility]; Protocol Last Admin: 09/15/23 08:53 Dose: Not Given Documented By: EBONI Non-Admin Reason: Med Not Available Nystatin (Nystatin Powder 15 Gm Bottle) 1 appl TOPICAL BID [facility]; Protocol Last Admin: 09/15/23 07:59 Dose: 1 appl Documented By: EBONI Ondansetron HCl (Ondansetron Odt 4 Mg Tab.Rapdis) 4 mg TRANSLINGU Q6H PRN PRN Reason: Nausea and Vomiting Polyethylene Glycol (Polyethylene Glycol 3350 17 Gm Powd.Pack) 17 gm PO DAILY [facility] Last Admin: 09/15/23 08:00 Dose: 17 gm Documented By: EBONI Sertraline HCl (Sertraline Hcl 25 Mg Tablet) 12.5 mg PO BEDTIME [facility] Last Admin: 09/14/23 20:44 Dose: 12.5 mg Documented By: TOYA Trazodone HCl (Trazodone Hcl 25 Mg Halftab) [address] [facility] Last Admin: 09/14/23 20:44 Dose: 25 mg Documented By: TOYA Labs 09/14/23 05:31 09/14/23 05:31 Assessment and Plan (1) ESRD needing dialysis: Status: Acute (2) Major depression, recurrent: Status: Acute Plan 53M PMH of DM2, HTN, Asthma who presented to ED After sustaining a fall and laying on the floor for 9 hours found to have severe acute kidney injury from rhabdomyolysis complicated by hyperkalemia CHITO and severe hyperkalemia and acute metabolic acidosis due to ATN from rhabdomyolysis and no renal recovery and started on HD, TTS, permacath placed 07/16/23. receiving dialysis MWF on midodrine 10 mg t.i.d. due to recurrent episodes of dizziness and weakness with physical therapy. Chronic Leg and back pain Stable, continue gabapentin 100mg BID/ Depression. unspecified No behavioral issues, seen by psychiatry 08/23, they recommended decrease dose of Abilify to 2.5 mg daily ,since it can cause orthostasis, decrease dose of trazodone to 25 mg at bedtime and Zoloft low-dose added continue to encourage participation in PT Acute?Rhabdomyolysis resolved Diabetes type 2 acceptable controlnot on meds, hemoglobin A1c 6.1 on 12/31. PT recommend short-term rehab/recommend out of bed to chair for all meals DVT PPx: Heparin reason for continued hospitalization: debilitated / depressed, safe discharge to short-term rehab. Quality Stroke Does the patient have a stroke diagnosis?: No VTE Prior VTE?: No VTE Risk Level:: Medical - moderate - high VTE Device Contraindication: N/A - Device Ordered VTE Drug Contraindication: N/A - Med Ordered
[2023-09-15 16:00] VITALS: BP 119/86; PULSE 113; RESP 16; TEMP 36.3; O2SAT 98
[2023-09-15] MEDS: Acetaminophen 325 MG TABLET 650 MG PO (19:26)
[2023-09-15] MEDS: traZODone HCL 25 MG HALFTAB PO (20:02)
[2023-09-15] MEDS: Sertraline HCL 25 MG TABLET 12.5 MG PO (20:02)
[2023-09-15 20:56] LABS: Glucose, Whole Blood 119 mg/dL (60-115)
[2023-09-15 23:43] VITALS: BP 102/66; PULSE 102; RESP 16; TEMP 36.3; O2SAT 95
[2023-09-16 07:27] VITALS: BP 107/64; PULSE 100; RESP 12; TEMP 36.3; O2SAT 97
[2023-09-16] MEDS: Heparin Sodium,Porcine 5,000 UNIT/ML VIAL 5000 UNIT SUBCUT ×3 (09:06→20:56)
[2023-09-16] MEDS: Midodrine HCl 10 MG TABLET PO ×3 (09:07→17:06)
[2023-09-16] MEDS: Gabapentin 100 MG CAPSULE PO ×2 (09:07→20:56)
[2023-09-16] MEDS: ARIPiprazole 5 MG TABLET 2.5 MG PO (09:07)
[2023-09-16] MEDS: Lidocaine 4 % Patch ADH..PATCH 1 PATCH TRANSDERMA (09:07)
[2023-09-16] MEDS: Fluticasone Propionate Nasal 16 GM SPRAY 2 SPRAY NOSTRIL-B (09:09)
[2023-09-16] MEDS: Nystatin Powder 15 GM BOTTLE 1 APPL TOPICAL ×2 (09:10→21:00)
--- NOTE | 2023-09-16 11:10 | PC.NURSE ---
patient was working with PT in the hallway ambulating when began to feel dizzy, pt sat down and vitals taken. BP found to be 70/40s and HR in 110's, pt resting in recliner with legs elevated when this RN went to assess. Patient states dizziness is getting better, new vitals taken show BP 120/65, HR 98, Dr. Suggs made aware. Plan to cont. to monitor, encourage PO intake and encourage compression stocking use
[2023-09-16 12:31] VITALS: BP 106/69
--- NOTE | 2023-09-16 13:52 | HO.PM.IMPN ---
Subjective Subjective Date of Service: 09/16/23 Interval History: Seen and evaluated this morning BP dropped to 70s SBPD upon participating with PT Review of Systems Review of Systems: Yes all other systems are reviewed and are negative Physical Exam Vital Signs: Vital Signs: Last Vital Signs Temp 97.4 F 09/16/23 07:27 Pulse 100 09/16/23 07:27 Resp 12 09/16/23 07:27 BP 106/69 09/16/23 12:31 Pulse Ox 97 09/16/23 07:27 O2 Del Method Room Air 09/16/23 07:27 O2 Flow Rate 2 07/26/23 11:35 BMI result Body Mass Index 49.2 Const: Other: Constitutional : Awake, morbidly obese, frail looking, not in distress Neck : Normal inspection, Supple Cardiovascular : RRR, no JVP, bilateral lower extremity edema Respiratory : good bilateral air entry, no crackles, no wheezes or rhonchi Gastrointestinal: soft, lax, Non tender Skin : Warm, Dry, Permacath in place Neurological : Alert & oriented, No focal deficit Objective Data Active Medications Acetaminophen (Acetaminophen 325 Mg Tablet) 650 mg PO Q4H PRN PRN Reason: Pain, Moderate(Pain Scale 4-6) Last Admin: 09/15/23 19:26 Dose: 650 mg Documented By: TOYA Aripiprazole (Aripiprazole 5 Mg Tablet) 2.5 mg PO DAILY [facility] Last Admin: 09/16/23 09:07 Dose: 2.5 mg Documented By: LAVON Fluticasone Propionate (Fluticasone Propionate Nasal 16 Gm [place]) 2 spray NOSTRIL-B DAILY [facility] Last Admin: 09/16/23 09:09 Dose: 2 spray Documented By: LAVON Gabapentin (Gabapentin 100 Mg Capsule) 100 mg PO BID [facility] Last Admin: 09/16/23 09:07 Dose: 100 mg Documented By: LAVON Heparin Sodium (Porcine) (Heparin Sodium,Porcine 5,000 Unit/Ml Vial) 5,000 unit SUBCUT TID [facility] Last Admin: 09/16/23 09:06 Dose: 5,000 unit Documented By: LAVON Hydrocortisone (Hydrocortisone 1 % Cream 28.35 Gm Tube) 1 appl TOPICAL DAILY [facility]; Protocol Last Admin: 09/16/23 09:09 Dose: Not Given Documented By: LAVON Non-Admin Reason: Patient Refused Dextrose (D10) 250 mls @ 750 mls/hr IV Q15M PRN PRN Reason: per Hypoglycemia Standing Ord. Lidocaine (Lidocaine 4 % Patch Adh..Patch) 1 patch TRANSDERMA DAILY [facility] Last Admin: 09/16/23 09:07 Dose: 1 patch Documented By: LAVON Midodrine (Midodrine Hcl 10 Mg Tablet) 10 mg PO TIDWM [facility] Last Admin: 09/16/23 12:32 Dose: 10 mg Documented By: LAVON Multi-Ingred Cream/Lotion/Oil/Oint (Mineral Oil/Petrolatum,White 106 Gm Tube) 1 appl TOPICAL BID [facility]; Protocol Last Admin: 09/16/23 09:09 Dose: Not Given Documented By: LAVON Non-Admin Reason: Patient Refused Nystatin (Nystatin Powder 15 Gm Bottle) 1 appl TOPICAL BID [facility]; Protocol Last Admin: 09/16/23 09:10 Dose: 1 appl Documented By: LAVON Ondansetron HCl (Ondansetron Odt 4 Mg Tab.Rapdis) 4 mg TRANSLINGU Q6H PRN PRN Reason: Nausea and Vomiting Polyethylene Glycol (Polyethylene Glycol 3350 17 Gm Powd.Pack) 17 gm PO DAILY [facility] Last Admin: 09/16/23 09:10 Dose: Not Given Documented By: LAVON Non-Admin Reason: Patient Refused Sertraline HCl (Sertraline Hcl 25 Mg Tablet) 12.5 mg PO BEDTIME [facility] Last Admin: 09/15/23 20:02 Dose: 12.5 mg Documented By: TOYA Trazodone HCl (Trazodone Hcl 25 Mg Halftab) 25 mg PO BEDTIME [facility] Last Admin: 09/15/23 20:02 Dose: 25 mg Documented By: TOYA Labs 09/14/23 05:31 09/14/23 05:31 Labs: Laboratory Results - last 24 hr 09/15/23 20:51 POC Glucose 119 H Assessment and Plan (1) ESRD needing dialysis: Status: Acute Plan 53M PMH of DM2, HTN, Asthma who presented to ED After sustaining a fall and laying on the floor for 9 hours found to have severe acute kidney injury from rhabdomyolysis complicated by hyperkalemia CHITO and severe hyperkalemia and acute metabolic acidosis due to ATN from rhabdomyolysis and no renal recovery and started on HD, TTS, permacath placed 07/16/23. receiving dialysis MWF Postural hypotension on midodrine 10 mg t.i.d. Compression stocking monitor fluid status Chronic Leg and back pain Stable, continue gabapentin 100mg BID/ Depression. unspecified No behavioral issues, seen by psychiatry 08/23, they recommended decrease dose of Abilify to 2.5 mg daily ,since it can cause orthostasis, decrease dose of trazodone to 25 mg at bedtime and Zoloft low-dose added continue to encourage participation in PT Acute?Rhabdomyolysis resolved Diabetes type 2 acceptable controlnot on meds, hemoglobin A1c 6.1 on 12/31. PT recommend short-term rehab/recommend out of bed to chair for all meals DVT PPx: Heparin reason for continued hospitalization: debilitated / depressed, safe discharge to short-term rehab. Quality Stroke Does the patient have a stroke diagnosis?: No VTE Prior VTE?: No VTE Risk Level:: Medical - moderate - high VTE Device Contraindication: N/A - Device Ordered VTE Drug Contraindication: N/A - Med Ordered
--- NOTE | 2023-09-16 13:53 | P.PNNP_ITS ---
Subjective Subjective Date of Service: 09/16/23 Principal diagnosis: Elevated troponins Interval history: Seen and evaluated this morning ; Due dialysis tomorrow Physical Exam 2 Vital Signs: Vital Signs: Last Vital Signs Temp 97.4 F 09/16/23 07:27 Pulse 100 09/16/23 07:27 Resp 12 09/16/23 07:27 BP 106/69 09/16/23 12:31 Pulse Ox 97 09/16/23 07:27 O2 Del Method Room Air 09/16/23 07:27 O2 Flow Rate 2 07/26/23 11:35 BMI result Body Mass Index 49.2 Const: General: comfortable and no acute distress O rientation/consciousness: patient oriented x3 HEENT: Head: Yes normocephalic Mouth: Normal oral and palatal mucosa present Eyes: EOM: EOMs intact bilaterally Neck: Neck: Yes supple Resp: Auscultation: clear to auscultation bilaterally Cardio: Jugular venous distension: no JVD Rate: regular rate GI: Palpation (GI): Soft to palpation Auscultation: normal bowel sounds : General: Yes no CVA tenderness Back/Spine/Pelvis: Back: no CVA tenderness Skin: General skin exam: no rashes or lesions noted Neuro: General: patient oriented x3 and moves all extremities Extrem: General: Yes no pedal edema Objective Data Labs 09/14/23 05:31 09/14/23 05:31 Labs: Laboratory Results - last 24 hr 09/15/23 20:51 POC Glucose 119 H Microbiology Microbiology Results: Microbiology 07/20/23 22:49 Blood - Venous Blood Culture - Final No growth after 5 days. 07/20/23 22:49 Blood - Venous Blood Culture - Final No growth after 5 days. 07/12/23 12:30 Blood - Venous Blood Culture - Final No growth after 5 days. 07/12/23 12:15 Blood - Venous Blood Culture - Final No growth after 5 days. 07/12/23 Unknown Urine Catheterized - Straight Catheter Urine Culture - Final No growth. 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 Monitor function for any possible renal recovery; C/W rest of current management Progress Note: Quality Stroke Does the patient have a stroke diagnosis?: No
[2023-09-16 15:50] VITALS: BP 111/76; PULSE 90; RESP 14; TEMP 36.1; O2SAT 99
--- NOTE | 2023-09-16 18:30 | PC.NURSE ---
During dinner patient with reports of aspiration; difficulty swallowing, coughing after consuming both solid food and liquids, and SOB. VSS, Dr. Suggs made aware and ordered pt to be NPO for now with only sips of water. Patient updated on NPO status and agrees.
[2023-09-16] MEDS: Sertraline HCL 25 MG TABLET 12.5 MG PO (20:56)
[2023-09-16] MEDS: Mineral Oil/Petrolatum,White 106 GM Tube 1 APPL TOPICAL (20:56)
[2023-09-16] MEDS: traZODone HCL 25 MG HALFTAB PO (20:56)
[2023-09-16 23:37] VITALS: BP 111/79; PULSE 94; RESP 16; TEMP 36.1; O2SAT 96
[2023-09-17 07:50] VITALS: BP 104/72; PULSE 106; RESP 12; TEMP 37.1; O2SAT 96
[2023-09-17] MEDS: Heparin Sodium,Porcine 5,000 UNIT/ML VIAL 5000 UNIT SUBCUT ×2 (10:19→20:48)
[2023-09-17] MEDS: Lidocaine 4 % Patch ADH..PATCH 1 PATCH TRANSDERMA (10:19)
[2023-09-17] MEDS: Fluticasone Propionate Nasal 16 GM SPRAY 2 SPRAY NOSTRIL-B (10:19)
[2023-09-17] MEDS: Nystatin Powder 15 GM BOTTLE 1 APPL TOPICAL ×2 (10:19→20:49)
--- NOTE | 2023-09-17 11:44 | HO.PM.IMPN ---
Subjective Subjective Date of Service: 09/17/23 Interval History: Seen and evaluated this morning having difficulties swallowing with episode of chocking no other overnight events Review of Systems Review of Systems: Yes all other systems are reviewed and are negative Physical Exam Vital Signs: Vital Signs: Last Vital Signs Temp 98.7 F 09/17/23 07:50 Pulse 106 H 09/17/23 07:50 Resp 12 09/17/23 07:50 BP 104/72 09/17/23 07:50 Pulse Ox 96 09/17/23 07:50 O2 Del Method Room Air 09/16/23 15:50 O2 Flow Rate 2 07/26/23 11:35 BMI result Body Mass Index 49.2 Const: Other: Constitutional : Awake, obese, frail looking, not in distress Neck : Normal inspection, Supple Cardiovascular : RRR, no JVP, bilateral lower extremity edema Respiratory : good bilateral air entry, no crackles, no wheezes or rhonchi Gastrointestinal: soft, lax, Non tender Skin : Warm, Dry, Permacath in place Neurological : Alert & oriented, No focal deficit Objective Data Active Medications Acetaminophen (Acetaminophen 325 Mg Tablet) 650 mg PO Q4H PRN PRN Reason: Pain, Moderate(Pain Scale 4-6) Last Admin: 09/15/23 19:26 Dose: 650 mg Documented By: TOYA Aripiprazole (Aripiprazole 5 Mg Tablet) 2.5 mg PO DAILY [facility] Last Admin: 09/17/23 09:51 Dose: Not Given Documented By: LAVON Non-Admin Reason: NPO, ?aspiration Fluticasone Propionate (Fluticasone Propionate Nasal 16 Gm [place]) 2 spray NOSTRIL-B DAILY [facility] Last Admin: 09/17/23 10:19 Dose: 2 spray Documented By: LAVON Gabapentin (Gabapentin 100 Mg Capsule) 100 mg PO BID [facility] Last Admin: 09/17/23 09:51 Dose: Not Given Documented By: LAVON Non-Admin Reason: NPO, ?aspiration Heparin Sodium (Porcine) (Heparin Sodium,Porcine 5,000 Unit/Ml Vial) 5,000 unit SUBCUT TID [facility] Last Admin: 09/17/23 10:19 Dose: 5,000 unit Documented By: LAVON Hydrocortisone (Hydrocortisone 1 % Cream 28.35 Gm Tube) 1 appl TOPICAL DAILY [facility]; Protocol Last Admin: 09/17/23 09:51 Dose: Not Given Documented By: LAVON Non-Admin Reason: Patient Refused Dextrose (D10) 250 mls @ 750 mls/hr IV Q15M PRN PRN Reason: per Hypoglycemia Standing Ord. Lidocaine (Lidocaine 4 % Patch Adh..Patch) 1 patch TRANSDERMA DAILY [facility] Last Admin: 09/17/23 10:19 Dose: 1 patch Documented By: LAVON Midodrine (Midodrine Hcl 10 Mg Tablet) 10 mg PO TIDWM [facility] Last Admin: 09/17/23 09:51 Dose: Not Given Documented By: LAVON Non-Admin Reason: NPO, ?aspiration Multi-Ingred Cream/Lotion/Oil/Oint (Mineral Oil/Petrolatum,White 106 Gm Tube) 1 appl TOPICAL BID [facility]; Protocol Last Admin: 09/17/23 09:51 Dose: Not Given Documented By: LAVON Non-Admin Reason: Patient Refused Nystatin (Nystatin Powder 15 Gm Bottle) 1 appl TOPICAL BID [facility]; Protocol Last Admin: 09/17/23 10:19 Dose: 1 appl Documented By: LAVON Ondansetron HCl (Ondansetron Odt 4 Mg Tab.Rapdis) 4 mg TRANSLINGU Q6H PRN PRN Reason: Nausea and Vomiting Polyethylene Glycol (Polyethylene Glycol 3350 17 Gm Powd.Pack) 17 gm PO DAILY [facility] Last Admin: 09/17/23 10:14 Dose: Not Given Documented By: LAVON Non-Admin Reason: NPO, ?aspiration Sertraline HCl (Sertraline Hcl 25 Mg Tablet) 12.5 mg PO BEDTIME [facility] Last Admin: 09/16/23 20:56 Dose: 12.5 mg Documented By: GARY Trazodone HCl (Trazodone Hcl 25 Mg Halftab) 25 mg PO BEDTIME [facility] Last Admin: 09/16/23 20:56 Dose: 25 mg Documented By: GARY Labs 09/14/23 05:31 09/14/23 05:31 Assessment and Plan (1) ESRD needing dialysis: Status: Acute Plan 53M PMH of DM2, HTN, Asthma who presented to ED After sustaining a fall and laying on the floor for 9 hours found to have severe acute kidney injury from rhabdomyolysis complicated by hyperkalemia CHITO and severe hyperkalemia and acute metabolic acidosis due to ATN from rhabdomyolysis and no renal recovery and started on HD, TTS, permacath placed 07/16/23. receiving dialysis MWF To hold on removing more fluids during HD for postural changes Swallowing problem [employer] to eval NPO for now Postural hypotension on midodrine 10 mg t.i.d. Compression stocking monitor fluid status Chronic Leg and back pain Stable, continue gabapentin 100mg BID/ Depression. unspecified No behavioral issues, seen by psychiatry 08/23, they recommended decrease dose of Abilify to 2.5 mg daily ,since it can cause orthostasis, decrease dose of trazodone to 25 mg at bedtime and Zoloft low-dose added continue to encourage participation in PT Acute?Rhabdomyolysis resolved Diabetes type 2 acceptable controlnot on meds, hemoglobin A1c 6.1 on 12/31. PT recommend short-term rehab/recommend out of bed to chair for all meals DVT PPx: Heparin reason for continued hospitalization: debilitated / depressed, safe discharge to short-term rehab. Quality Stroke Does the patient have a stroke diagnosis?: No VTE Prior VTE?: No VTE Risk Level:: Medical - moderate - high VTE Device Contraindication: N/A - Device Ordered VTE Drug Contraindication: N/A - Med Ordered
[2023-09-17 12:00] VITALS: BP 80/50; PULSE 102; RESP 12; TEMP 36.6; O2SAT 97
[2023-09-17] MEDS: Fludrocortisone Acetate 0.1 MG TABLET PO (12:58)
[2023-09-17] MEDS: Midodrine HCl 10 MG TABLET PO ×2 (12:58→20:47)
--- NOTE | 2023-09-17 13:28 | P.PNNP_ITS ---
Subjective Subjective Date of Service: 09/17/23 Principal diagnosis: Elevated troponins Interval history: Seen and evaluated this morning ; no other overnight events ;BP soft Physical Exam 2 Vital Signs: Vital Signs: Last Vital Signs Temp 97.8 F 09/17/23 12:00 Pulse 102 H 09/17/23 12:00 Resp 12 09/17/23 12:00 BP 80/50 L 09/17/23 12:00 Pulse Ox 97 09/17/23 12:00 O2 Del Method Nasal [place] 09/17/23 12:00 O2 Flow Rate 2 09/17/23 12:00 BMI result Body Mass Index 49.2 Const: General: no acute distress Eyes: EOM: EOMs intact bilaterally Resp: Auscultation: diminished lung sounds Cardio: Rate: regular rate GI: Palpation (GI): Soft to palpation Neuro: General: moves all extremities Objective Data Labs 09/14/23 05:31 09/14/23 05:31 Microbiology Microbiology Results: Microbiology 07/20/23 22:49 Blood - Venous Blood Culture - Final No growth after 5 days. 07/20/23 22:49 Blood - Venous Blood Culture - Final No growth after 5 days. 07/12/23 12:30 Blood - Venous Blood Culture - Final No growth after 5 days. 07/12/23 12:15 Blood - Venous Blood Culture - Final No growth after 5 days. 07/12/23 Unknown Urine Catheterized - Straight Catheter Urine Culture - Final No growth. 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 May have to start Florinef 0.1 mg daily if BP is running soft on Midodrine Monitor function for any possible renal recovery; C/W rest of current management Progress Note: Quality Stroke Does the patient have a stroke diagnosis?: No
[2023-09-17 13:58] VITALS: BP 92/62
--- NOTE | 2023-09-17 15:55 | MHC.CM.PN ---
per rounds pt still on bed search need a hd slot as well
--- NOTE | 2023-09-17 17:06 | MHC.SL.SWA ---
Speech Pathologist Impression: Risk of aspiration, oropharyngeal dysphagia Dysphasia Diet Status: Start on NDD1/THIN Liquid Consistency and Strategies for Safe Swallow: Liquid Intake Recommendation: Thin Liquid Intake Strategies: Small Sips Solid Food Consistency: Dietary Recommendations: Pureed (NDD1) Additional Modifications to Solid Foods: No s/s of aspiration with pudding and water. Patient refuses to try any harder solid, says mom had history of dysphagia and needed all her food blended. [employer] described for patient options for other more advanced, but still soft diets. However, patient declined, as he fears choking on harder foods and requested all foods be pureed. Recommend upgrade form NPO, START on PUREED diet (NDD1) per patient's request, and THIN liquids, pills WHOLE in PUREE. Recommend 1:1 supervision with PO intake d/t recent choking episodes. Oral Medication Intake: Whole with Puree Please contact the pharmacy regarding appropriate crushable or liquid drug formulations that are available whenever modified delivery is recommended. Compensatory Strategies and Precautions to be Taken for Safe Swallow: Sitting Upright (90 deg) Small Bites and Sips Alternate Liquids/Solids Rate of Ingestion Change Supervision While Eating and Drinking for Safe Swallow: Total Supervision (1:1) Swallowing Recommended Treatments: Compens. Strategy Educat. Recommendation for Speech: Inpatient Speech Therapy Comment: [employer] will continue to follow to monitor tolerance and re-assess for potential upgrade if/when appropriate. Frequency/Duration: Date Range for Service Req: Timeline to reassess: Physician Practice Administrator Clinican/Clinical Fellow: No Supervisory Statement: I have reviewed and agree with the student/clinical fellow's documentation: N/A Speech Language Pathologist: Trisha Yu M.A., CCC-[employer]
[2023-09-17 18:55] VITALS: BP 111/63; PULSE 100; RESP 18; TEMP 36.2; O2SAT 98
[2023-09-17] MEDS: traZODone HCL 25 MG HALFTAB PO (20:46)
[2023-09-17] MEDS: Sertraline HCL 25 MG TABLET 12.5 MG PO (20:47)
[2023-09-17] MEDS: Gabapentin 100 MG CAPSULE PO (20:48)
[2023-09-17 23:02] VITALS: BP 109/77; PULSE 100; RESP 18; TEMP 37.1; O2SAT 95
[2023-09-18 07:58] VITALS: BP 106/66; PULSE 100; RESP 18; TEMP 36.1; O2SAT 98
[2023-09-18] MEDS: Acetaminophen 325 MG TABLET 650 MG PO (08:37)
[2023-09-18] MEDS: Lidocaine 4 % Patch ADH..PATCH 1 PATCH TRANSDERMA (08:37)
[2023-09-18] MEDS: ARIPiprazole 5 MG TABLET 2.5 MG PO (08:39)
[2023-09-18] MEDS: Gabapentin 100 MG CAPSULE PO ×2 (08:39→20:46)
[2023-09-18] MEDS: Fludrocortisone Acetate 0.1 MG TABLET PO (08:40)
[2023-09-18] MEDS: Heparin Sodium,Porcine 5,000 UNIT/ML VIAL 5000 UNIT SUBCUT ×3 (08:40→20:46)
[2023-09-18] MEDS: Midodrine HCl 10 MG TABLET PO ×3 (08:40→17:41)
[2023-09-18] MEDS: Fluticasone Propionate Nasal 16 GM SPRAY 2 SPRAY NOSTRIL-B (08:40)
--- NOTE | 2023-09-18 09:53 | P.PNIM_ITS ---
Subjective Subjective Date of Service: 09/18/23 Interval History: Seen and evaluated this morning Tolerating Pureed diet BP better no other overnight events Review of Systems Review of Systems: Yes all other systems are reviewed and are negative Physical Exam 2 Vital Signs: Vital Signs: Last Vital Signs Temp 96.9 F 09/18/23 07:58 Pulse 100 09/18/23 07:58 Resp 18 09/18/23 07:58 BP 106/66 09/18/23 07:58 Pulse Ox 98 09/18/23 07:58 O2 Del Method Room Air 09/18/23 07:58 O2 Flow Rate 2 09/17/23 12:00 BMI result Body Mass Index 49.2 Const: Other: Constitutional : Awake, obese, frail looking, not in distress Neck : Normal inspection, Supple Cardiovascular : RRR, no JVP, bilateral lower extremity edema Respiratory : good bilateral air entry, no crackles, no wheezes or rhonchi Gastrointestinal: soft, lax, Non tender Skin : Warm, Dry, Permacath in place Neurological : Alert & oriented, No focal deficit Objective Data Active Medications Acetaminophen (Acetaminophen 325 Mg Tablet) 650 mg PO Q4H PRN PRN Reason: Pain, Moderate(Pain Scale 4-6) Last Admin: 09/18/23 08:37 Dose: 650 mg Documented By: OPHELIA Aripiprazole (Aripiprazole 5 Mg Tablet) 2.5 mg PO DAILY [facility] Last Admin: 09/18/23 08:39 Dose: 2.5 mg Documented By: OPHELIA Fludrocortisone Acetate (Fludrocortisone Acetate 0.1 Mg Tablet) 0.1 mg PO DAILY [facility] Last Admin: 09/18/23 08:40 Dose: 0.1 mg Documented By: OPHELIA Fluticasone Propionate (Fluticasone Propionate Nasal 16 Gm [place]) 2 spray NOSTRIL-B DAILY [facility] Last Admin: 09/18/23 08:40 Dose: 2 spray Documented By: OPHELIA Gabapentin (Gabapentin 100 Mg Capsule) 100 mg PO BID [facility] Last Admin: 09/18/23 08:39 Dose: 100 mg Documented By: OPHELIA Heparin Sodium (Porcine) (Heparin Sodium,Porcine 5,000 Unit/Ml Vial) 5,000 unit SUBCUT TID [facility] Last Admin: 09/18/23 08:40 Dose: 5,000 unit Documented By: OPHELIA Heparin Sodium (Porcine) (Heparin Sodium,Porcine 1,000 Unit/Ml Vial) 4,000 unit IV MOWEFR [facility] Last Admin: 09/17/23 18:30 Dose: Not Given Documented By: LAVON Non-Admin Reason: Off unit: Dialysis Hydrocortisone (Hydrocortisone 1 % Cream 28.35 Gm Tube) 1 appl TOPICAL DAILY [facility]; Protocol Last Admin: 09/18/23 09:16 Dose: Not Given Documented By: OPHELIA Non-Admin Reason: Patient Refused Dextrose (D10) 250 mls @ 750 mls/hr IV Q15M PRN PRN Reason: per Hypoglycemia Standing Ord. Lidocaine (Lidocaine 4 % Patch Adh..Patch) 1 patch TRANSDERMA DAILY [facility] Last Admin: 09/18/23 08:37 Dose: 1 patch Documented By: OPHELIA Midodrine (Midodrine Hcl 10 Mg Tablet) 10 mg PO TIDWM [facility] Last Admin: 09/18/23 08:40 Dose: 10 mg Documented By: OPHELIA Multi-Ingred Cream/Lotion/Oil/Oint (Mineral Oil/Petrolatum,White 106 Gm Tube) 1 appl TOPICAL BID [facility]; Protocol Last Admin: 09/18/23 09:16 Dose: Not Given Documented By: OPHELIA Non-Admin Reason: Patient Refused Nystatin (Nystatin Powder 15 Gm Bottle) 1 appl TOPICAL BID [facility]; Protocol Last Admin: 09/17/23 20:49 Dose: 1 appl Documented By: QUINTON Ondansetron HCl (Ondansetron Odt 4 Mg Tab.Rapdis) 4 mg TRANSLINGU Q6H PRN PRN Reason: Nausea and Vomiting Polyethylene Glycol (Polyethylene Glycol 3350 17 Gm Powd.Pack) 17 gm PO DAILY [facility] Last Admin: 09/18/23 09:16 Dose: Not Given Documented By: OPHELIA Non-Admin Reason: Patient Refused Sertraline HCl (Sertraline Hcl 25 Mg Tablet) 12.5 mg PO BEDTIME [facility] Last Admin: 09/17/23 20:47 Dose: 12.5 mg Documented By: QUINTON Trazodone HCl (Trazodone Hcl 25 Mg Halftab) 25 mg PO BEDTIME [facility] Last Admin: 09/17/23 20:46 Dose: 25 mg Documented By: QUINTON Labs 09/14/23 05:31 09/14/23 05:31 Assessment and Plan (1) ESRD needing dialysis: Status: Acute (2) Swallowing problem: Status: Acute (3) Hypotension: Status: Acute Plan 53M PMH of DM2, HTN, Asthma who presented to ED After sustaining a fall and laying on the floor for 9 hours found to have severe acute kidney injury from rhabdomyolysis complicated by hyperkalemia CHITO and severe hyperkalemia and acute metabolic acidosis due to ATN from rhabdomyolysis and no renal recovery and started on HD, TTS, permacath placed 07/16/23. receiving dialysis MWF To hold on removing more fluids during HD for postural changes Swallowing problem CORE FEEDER rec starting Pureed Postural hypotension on midodrine 10 mg t.i.d. Compression stocking Started Fludricortisone monitor fluid status Chronic Leg and back pain Stable, continue gabapentin 100mg BID/ Depression. unspecified No behavioral issues, seen by psychiatry 08/23, they recommended decrease dose of Abilify to 2.5 mg daily ,since it can cause orthostasis, decrease dose of trazodone to 25 mg at bedtime and Zoloft low-dose added continue to encourage participation in PT Acute?Rhabdomyolysis resolved Diabetes type 2 acceptable controlnot on meds, hemoglobin A1c 6.1 on 12/31. PT recommend short-term rehab/recommend out of bed to chair for all meals DVT PPx: Heparin reason for continued hospitalization: debilitated / depressed, safe discharge to short-term rehab. Quality Stroke Does the patient have a stroke diagnosis?: No VTE Prior VTE?: No VTE Risk Level:: Medical - moderate - high VTE Device Contraindication: N/A - Device Ordered VTE Drug Contraindication: N/A - Med Ordered
--- NOTE | 2023-09-18 11:24 | MHC.SL.SWA ---
Speech Pathologist Impression: Risk of Aspiration Due to: Dysphasia Diet Status: Recommend Ground/Mechanical (NDD2) with Thin Liquids, pills whole in puree or with liquid. Liquid Consistency and Strategies for Safe Swallow: Liquid Intake Recommendation: Thin Liquid Intake Strategies: Small Sips Solid Food Consistency: Dietary Recommendations: Grnd/Mech Altered (NDD2) Additional Modifications to Solid Foods: At this time, patient is anxious about eating more advanced textures, and refusing trials. Patient presents as likely functionally able to swallow more advanced consistencies, but currently agrees to Ground Textures and Purees with the GRAIN LOADER. Patient is able to eat independently. Oral Medication Intake: Whole with Puree Please contact the pharmacy regarding appropriate crushable or liquid drug formulations that are available whenever modified delivery is recommended. Compensatory Strategies and Precautions to be Taken for Safe Swallow: Sitting Upright (90 deg) Small Bites and Sips Alternate Liquids/Solids Supervision While Eating and Drinking for Safe Swallow: None Needed Foods to Avoid: Swallowing Recommended Treatments: Compens. Strategy Educat. Recommendation for Speech: Inpatient Speech Therapy Comment: GRAIN LOADER called in for another patient, RN requested re-assessment of this patient's swallow as he had c/o about puree foods. Per chart, patient yesterday seen for clinical swallow, declined trials of any texture beyond puree, requesting this texture only, GRAIN LOADER put patient on PUREE (NDD1) with Thin liquids. Patient today demonstrated swallow WFL on self administered cup sip of liquid; on bite of pudding, also swallow WFL, with patient again commenting That goes down good. Patient then reported he felt he would have problems with sandwiches or any thing hard like katlin crackers, however was willing to try softened katlin cracker in pudding. On this texture, patient presented with swallow WFL. Patient was given bite of chicken salad removed from a sandwhich, with this in his mouth, he reported I don't think I can swallow this, was encouraged to take sip of water, and with this swallowed ground meat with no difficulty. In discussion with patient, he was willing to try an upgrade to Ground Mechanical diet, although evidenced some degree of confusion about this recommendation (E.g. said o.k. that will have corn, right? ). Recommend upgrade to Ground/Mechanical (NDD2) with Thin Liquids, pills whole in puree or with liquid. Frequency/Duration: Date Range for Service Req: Timeline to reassess: Musical String Maker Clinican/Clinical Fellow: No Supervisory Statement: I have reviewed and agree with the student/clinical fellow's documentation: N/A Speech Language Pathologist: Trisha Yu M.A., CCC-GRAIN LOADER
[2023-09-18] MEDS: Nystatin Powder 15 GM BOTTLE 1 APPL TOPICAL ×2 (12:20→20:47)
[2023-09-18 15:23] VITALS: BP 124/86; PULSE 82; RESP 18; TEMP 36.4; O2SAT 98
[2023-09-18 19:08] VITALS: BP 118/81; PULSE 80; RESP 16; TEMP 36.1; O2SAT 99
[2023-09-18] MEDS: traZODone HCL 25 MG HALFTAB PO (20:46)
[2023-09-18] MEDS: Sertraline HCL 25 MG TABLET 12.5 MG PO (20:46)
[2023-09-18] MEDS: Mineral Oil/Petrolatum,White 106 GM Tube 1 APPL TOPICAL (20:47)
[2023-09-18 23:56] VITALS: BP 123/80; PULSE 94; RESP 16; TEMP 36; O2SAT 95
[2023-09-19 07:54] VITALS: BP 108/68; PULSE 100; RESP 18; TEMP 36.4; O2SAT 94
[2023-09-19] MEDS: Midodrine HCl 10 MG TABLET PO ×3 (08:19→17:13)
[2023-09-19] MEDS: Acetaminophen 325 MG TABLET 650 MG PO ×2 (08:19→18:38)
[2023-09-19] MEDS: ARIPiprazole 5 MG TABLET 2.5 MG PO (08:19)
[2023-09-19] MEDS: Lidocaine 4 % Patch ADH..PATCH 1 PATCH TRANSDERMA (08:20)
[2023-09-19] MEDS: Heparin Sodium,Porcine 5,000 UNIT/ML VIAL 5000 UNIT SUBCUT ×3 (08:20→20:16)
[2023-09-19] MEDS: Gabapentin 100 MG CAPSULE PO ×2 (08:20→20:17)
[2023-09-19] MEDS: Fludrocortisone Acetate 0.1 MG TABLET PO (08:20)
[2023-09-19] MEDS: Nystatin Powder 15 GM BOTTLE 1 APPL TOPICAL ×2 (08:20→20:17)
[2023-09-19] MEDS: Fluticasone Propionate Nasal 16 GM SPRAY 2 SPRAY NOSTRIL-B (08:20)
--- NOTE | 2023-09-19 13:14 | P.PNIM_ITS ---
Subjective Subjective Date of Service: 09/19/23 Interval History: Seen and evaluated this morning Tolerating diet BP better no other overnight events Review of Systems Review of Systems: Yes all other systems are reviewed and are negative Physical Exam 2 Vital Signs: Vital Signs: Last Vital Signs Temp 97.6 F 09/19/23 07:54 Pulse 100 09/19/23 07:54 Resp 18 09/19/23 07:54 BP 108/68 09/19/23 07:54 Pulse Ox 94 09/19/23 07:54 O2 Del Method Room Air 09/19/23 07:54 O2 Flow Rate 2 09/17/23 12:00 BMI result Body Mass Index 49.2 Const: Other: Constitutional : Awake, obese, frail looking, not in distress Neck : Normal inspection, Supple Cardiovascular : RRR, no JVP, bilateral lower extremity edema Respiratory : good bilateral air entry, no crackles, no wheezes or rhonchi Gastrointestinal: soft, lax, Non tender Skin : Warm, Dry, Permacath in place Neurological : Alert & oriented, No focal deficit Objective Data Active Medications Acetaminophen (Acetaminophen 325 Mg Tablet) 650 mg PO Q4H PRN PRN Reason: Pain, Moderate(Pain Scale 4-6) Last Admin: 09/19/23 08:19 Dose: 650 mg Documented By: OPHELIA Aripiprazole (Aripiprazole 5 Mg Tablet) 2.5 mg PO DAILY [facility] Last Admin: 09/19/23 08:19 Dose: 2.5 mg Documented By: OPHELIA Fludrocortisone Acetate (Fludrocortisone Acetate 0.1 Mg Tablet) 0.1 mg PO DAILY [facility] Last Admin: 09/19/23 08:20 Dose: 0.1 mg Documented By: OPHELIA Fluticasone Propionate (Fluticasone Propionate Nasal 16 Gm [place]) 2 spray NOSTRIL-B DAILY [facility] Last Admin: 09/19/23 08:20 Dose: 2 spray Documented By: OPHELIA Gabapentin (Gabapentin 100 Mg Capsule) 100 mg PO BID [facility] Last Admin: 09/19/23 08:20 Dose: 100 mg Documented By: OPHELIA Heparin Sodium (Porcine) (Heparin Sodium,Porcine 5,000 Unit/Ml Vial) 5,000 unit SUBCUT TID [facility] Last Admin: 09/19/23 08:20 Dose: 5,000 unit Documented By: OPHELIA Heparin Sodium (Porcine) (Heparin Sodium,Porcine 1,000 Unit/Ml Vial) 4,000 unit IV MOWEFR [facility] Last Admin: 09/17/23 18:30 Dose: Not Given Documented By: LAVON Non-Admin Reason: Off unit: Dialysis Hydrocortisone (Hydrocortisone 1 % Cream 28.35 Gm Tube) 1 appl TOPICAL DAILY [facility]; Protocol Last Admin: 09/19/23 08:21 Dose: Not Given Documented By: OPHELIA Non-Admin Reason: Patient Refused Dextrose (D10) 250 mls @ 750 mls/hr IV Q15M PRN PRN Reason: per Hypoglycemia Standing Ord. Lidocaine (Lidocaine 4 % Patch Adh..Patch) 1 patch TRANSDERMA DAILY [facility] Last Admin: 09/19/23 08:20 Dose: 1 patch Documented By: OPHELIA Midodrine (Midodrine Hcl 10 Mg Tablet) 10 mg PO TIDWM [facility] Last Admin: 09/19/23 12:26 Dose: 10 mg Documented By: OPHELIA Multi-Ingred Cream/Lotion/Oil/Oint (Mineral Oil/Petrolatum,White 106 Gm Tube) 1 appl TOPICAL BID [facility]; Protocol Last Admin: 09/19/23 08:21 Dose: Not Given Documented By: OPHELIA Non-Admin Reason: Patient Refused Nystatin (Nystatin Powder 15 Gm Bottle) 1 appl TOPICAL BID [facility]; Protocol Last Admin: 09/19/23 08:20 Dose: 1 appl Documented By: OPHELIA Ondansetron HCl (Ondansetron Odt 4 Mg Tab.Rapdis) 4 mg TRANSLINGU Q6H PRN PRN Reason: Nausea and Vomiting Polyethylene Glycol (Polyethylene Glycol 3350 17 Gm Powd.Pack) 17 gm PO DAILY [facility] Last Admin: 09/19/23 08:28 Dose: Not Given Documented By: OPHELIA Non-Admin Reason: Patient Refused Sertraline HCl (Sertraline Hcl 25 Mg Tablet) 12.5 mg PO BEDTIME [facility] Last Admin: 09/18/23 20:46 Dose: 12.5 mg Documented By: BENNETT Trazodone HCl (Trazodone Hcl 25 Mg Halftab) 25 mg PO BEDTIME [facility] Last Admin: 09/18/23 20:46 Dose: 25 mg Documented By: BENNETT Labs 09/14/23 05:31 09/14/23 05:31 Assessment and Plan (1) Swallowing problem: Status: Acute (2) ESRD needing dialysis: Status: Acute (3) Major depression, recurrent: Status: Acute Plan 53M PMH of DM2, HTN, Asthma who presented to ED After sustaining a fall and laying on the floor for 9 hours found to have severe acute kidney injury from rhabdomyolysis complicated by hyperkalemia ESRD requiring HD post CHITO and severe hyperkalemia and acute metabolic acidosis due to ATN from rhabdomyolysis and no renal recovery permacath placed 07/16/23. receiving dialysis MWF To hold on removing more fluids during HD for postural changes - Swallowing problem, NETWORK OPERATIONS ANALYST rec starting Pureed - Postural hypotension, Still gets symptomatic sometimes, midodrine 10 mg t.i.d. , Compression stocking, Started Fludricortisone. - Chronic Leg and back pain , continue gabapentin 100mg BID - Hx major recurrent Depression. Psychiatry 08/23, they recommended decrease dose of Abilify to 2.5 mg daily ,since it can cause orthostasis, decrease dose of trazodone to 25 mg at bedtime and Zoloft low-dose added - Diabetes type 2, not on meds, hemoglobin A1c 6.1 on 12/31. - PHysical deconditioning, PT recommend short-term rehab/recommend out of bed to chair for all meals DVT PPx: Heparin reason for continued hospitalization: debilitated / depressed, safe discharge to short-term rehab. Quality Stroke Does the patient have a stroke diagnosis?: No VTE Prior VTE?: No VTE Risk Level:: Medical - moderate - high VTE Device Contraindication: N/A - Device Ordered VTE Drug Contraindication: N/A - Med Ordered
[2023-09-19 15:17] VITALS: BP 134/84; PULSE 84; RESP 16; TEMP 36.3; O2SAT 97
[2023-09-19 18:12] VITALS: BP 135/83; PULSE 82; RESP 20; O2SAT 99
--- NOTE | 2023-09-19 19:21 | PC.NURSE ---
Patient was being assisted with ambulation in room with walker. [place] like legs were wobbly so was assisting patient to sit in chair. Tried to sit down too quickly and sat on edge of chair. Slid from chair to floor. This RN right beside patient and was able to lower patient slowly to floor. Assisted to stand by COMMUNITY PRODUCT SPECIALIST and this RN and assisted back to bed. No injuries noted. VSS. ore miner, meter repair shop supervisor, and Dr. Suggs notified.
[2023-09-19] MEDS: Mineral Oil/Petrolatum,White 106 GM Tube 1 APPL TOPICAL (20:17)
[2023-09-19] MEDS: traZODone HCL 25 MG HALFTAB PO (20:17)
[2023-09-19] MEDS: Sertraline HCL 25 MG TABLET 12.5 MG PO (20:17)
[2023-09-19 23:43] VITALS: BP 107/60; PULSE 103; RESP 16; TEMP 36; O2SAT 97
[2023-09-20 08:00] VITALS: BP 117/67; PULSE 95; RESP 16; TEMP 36.9; O2SAT 96
[2023-09-20] MEDS: Lidocaine 4 % Patch ADH..PATCH 1 PATCH TRANSDERMA (08:26)
[2023-09-20] MEDS: Heparin Sodium,Porcine 5,000 UNIT/ML VIAL 5000 UNIT SUBCUT ×3 (08:27→20:58)
[2023-09-20] MEDS: Fluticasone Propionate Nasal 16 GM SPRAY 2 SPRAY NOSTRIL-B (08:27)
[2023-09-20] MEDS: Fludrocortisone Acetate 0.1 MG TABLET PO (08:28)
[2023-09-20] MEDS: Gabapentin 100 MG CAPSULE PO ×2 (08:28→20:58)
[2023-09-20] MEDS: ARIPiprazole 5 MG TABLET 2.5 MG PO (08:28)
[2023-09-20] MEDS: Midodrine HCl 10 MG TABLET PO ×3 (08:28→16:47)
[2023-09-20] MEDS: Mineral Oil/Petrolatum,White 106 GM Tube 1 APPL TOPICAL (08:29)
--- NOTE | 2023-09-20 10:58 | P.PNIM_ITS ---
Subjective Subjective Date of Service: 09/20/23 Interval History: Seen and evaluated this morning slid out of his chair yesterday wit no reported head injury or pain tolerating diet no other overnight events Review of Systems Review of Systems: Yes all other systems are reviewed and are negative Physical Exam 2 Vital Signs: Vital Signs: Last Vital Signs Temp 98.5 F 09/20/23 08:00 Pulse 95 09/20/23 08:00 Resp 16 09/20/23 08:00 BP 117/67 09/20/23 08:00 Pulse Ox 96 09/20/23 08:00 O2 Del Method Room Air 09/20/23 08:00 O2 Flow Rate 2 09/17/23 12:00 BMI result Body Mass Index 49.2 Const: Other: Constitutional : Awake, obese, frail looking, not in distress Neck : Normal inspection, Supple Cardiovascular : RRR, no JVP, bilateral lower extremity edema Respiratory : good bilateral air entry, no crackles, no wheezes or rhonchi Gastrointestinal: soft, lax, Non tender Skin : Warm, Dry, Permacath in place Neurological : Alert & oriented, No focal deficit Objective Data Active Medications Acetaminophen (Acetaminophen 325 Mg Tablet) 650 mg PO Q4H PRN PRN Reason: Pain, Moderate(Pain Scale 4-6) Last Admin: 09/19/23 18:38 Dose: 650 mg Documented By: OPHELIA Aripiprazole (Aripiprazole 5 Mg Tablet) 2.5 mg PO DAILY [facility] Last Admin: 09/20/23 08:28 Dose: 2.5 mg Documented By: EBONI Fludrocortisone Acetate (Fludrocortisone Acetate 0.1 Mg Tablet) 0.1 mg PO DAILY [facility] Last Admin: 09/20/23 08:28 Dose: 0.1 mg Documented By: EBONI Fluticasone Propionate (Fluticasone Propionate Nasal 16 Gm [place]) 2 spray NOSTRIL-B DAILY [facility] Last Admin: 09/20/23 08:27 Dose: 2 spray Documented By: EBONI Gabapentin (Gabapentin 100 Mg Capsule) 100 mg PO BID [facility] Last Admin: 09/20/23 08:28 Dose: 100 mg Documented By: EBONI Heparin Sodium (Porcine) (Heparin Sodium,Porcine 5,000 Unit/Ml Vial) 5,000 unit SUBCUT TID [facility] Last Admin: 09/20/23 08:27 Dose: 5,000 unit Documented By: EBONI Heparin Sodium (Porcine) (Heparin Sodium,Porcine 1,000 Unit/Ml Vial) 4,000 unit IV MOWEFR [facility] Last Admin: 09/17/23 18:30 Dose: Not Given Documented By: LAVON Non-Admin Reason: Off unit: Dialysis Hydrocortisone (Hydrocortisone 1 % Cream 28.35 Gm Tube) 1 appl TOPICAL DAILY [facility]; Protocol Last Admin: 09/20/23 08:31 Dose: Not Given Documented By: EBONI Non-Admin Reason: Patient Refused Dextrose (D10) 250 mls @ 750 mls/hr IV Q15M PRN PRN Reason: per Hypoglycemia Standing Ord. Lidocaine (Lidocaine 4 % Patch Adh..Patch) 1 patch TRANSDERMA DAILY [facility] Last Admin: 09/20/23 08:26 Dose: 1 patch Documented By: EBONI Midodrine (Midodrine Hcl 10 Mg Tablet) 10 mg PO TIDWM [facility] Last Admin: 09/20/23 08:28 Dose: 10 mg Documented By: EBONI Multi-Ingred Cream/Lotion/Oil/Oint (Mineral Oil/Petrolatum,White 106 Gm Tube) 1 appl TOPICAL BID [facility]; Protocol Last Admin: 09/20/23 08:29 Dose: 1 appl Documented By: EBONI Nystatin (Nystatin Powder 15 Gm Bottle) 1 appl TOPICAL BID [facility]; Protocol Last Admin: 09/20/23 08:31 Dose: Not Given Documented By: EBONI Non-Admin Reason: no rash Ondansetron HCl (Ondansetron Odt 4 Mg Tab.Rapdis) 4 mg TRANSLINGU Q6H PRN PRN Reason: Nausea and Vomiting Polyethylene Glycol (Polyethylene Glycol 3350 17 Gm Powd.Pack) 17 gm PO DAILY [facility] Last Admin: 09/20/23 08:29 Dose: Not Given Documented By: EBONI Non-Admin Reason: Patient Refused Sertraline HCl (Sertraline Hcl 25 Mg Tablet) 12.5 mg PO BEDTIME [facility] Last Admin: 09/19/23 20:17 Dose: 12.5 mg Documented By: BENNETT Trazodone HCl (Trazodone Hcl 25 Mg Halftab) 25 mg PO BEDTIME [facility] Last Admin: 08/11/24 20:17 Dose: 25 mg Documented By: BENNETT Labs 09/14/23 05:31 09/14/23 05:31 Assessment and Plan (1) ESRD needing dialysis: Status: Acute Plan 53M PMH of DM2, HTN, Asthma who presented to ED After sustaining a fall and laying on the floor for 9 hours found to have severe acute kidney injury from rhabdomyolysis complicated by hyperkalemia ESRD requiring HD post CHITO and severe hyperkalemia and acute metabolic acidosis due to ATN from rhabdomyolysis and no renal recovery permacath placed 07/16/23. receiving dialysis MWF To hold on removing more fluids during HD for postural changes - Swallowing problem, PHOTO LAB MANAGER rec starting Pureed - Postural hypotension, Still gets symptomatic sometimes, midodrine 10 mg t.i.d. , Compression stocking, Started Fludricortisone. - Chronic Leg and back pain , continue gabapentin 100mg BID - Hx major recurrent Depression. Psychiatry 08/23, they recommended decrease dose of Abilify to 2.5 mg daily ,since it can cause orthostasis, decrease dose of trazodone to 25 mg at bedtime and Zoloft low-dose added - Diabetes type 2, not on meds, hemoglobin A1c 6.1 on 12/31. - PHysical deconditioning, PT recommend short-term rehab/recommend out of bed to chair for all meals DVT PPx: Heparin reason for continued hospitalization: debilitated / depressed, safe discharge to short-term rehab. Quality Stroke Does the patient have a stroke diagnosis?: No VTE Prior VTE?: No VTE Risk Level:: Medical - moderate - high VTE Device Contraindication: N/A - Device Ordered VTE Drug Contraindication: N/A - Med Ordered
--- NOTE | 2023-09-20 11:23 | P.PNNP_ITS ---
Subjective Subjective Date of Service: 09/20/23 Principal diagnosis: Elevated troponins Interval history: Seen and evaluated this morning . Tolerating diet Physical Exam 2 Vital Signs: Vital Signs: Last Vital Signs Temp 98.5 F 09/20/23 08:00 Pulse 95 09/20/23 08:00 Resp 16 09/20/23 08:00 BP 117/67 09/20/23 08:00 Pulse Ox 96 09/20/23 08:00 O2 Del Method Room Air 09/20/23 08:00 O2 Flow Rate 2 09/17/23 12:00 BMI result Body Mass Index 49.2 Const: General: comfortable and no acute distress O rientation/consciousness: patient oriented x3 HEENT: Head: Yes normocephalic Mouth: Normal oral and palatal mucosa present Eyes: EOM: EOMs intact bilaterally Neck: Neck: Yes supple Resp: Auscultation: clear to auscultation bilaterally Cardio: Jugular venous distension: no JVD Rate: regular rate GI: Palpation (GI): Soft to palpation Auscultation: normal bowel sounds : General: Yes no CVA tenderness Back/Spine/Pelvis: Back: no CVA tenderness Skin: General skin exam: no rashes or lesions noted Neuro: General: patient oriented x3 and moves all extremities Objective Data Labs 09/14/23 05:31 09/14/23 05:31 Microbiology Microbiology Results: Microbiology 07/20/23 22:49 Blood - Venous Blood Culture - Final No growth after 5 days. 07/20/23 22:49 Blood - Venous Blood Culture - Final No growth after 5 days. 07/12/23 12:30 Blood - Venous Blood Culture - Final No growth after 5 days. 07/12/23 12:15 Blood - Venous Blood Culture - Final No growth after 5 days. 07/12/23 Unknown Urine Catheterized - Straight Catheter Urine Culture - Final No growth. 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 Started Florinef 0.1 mg daily; C/W rest of current management Progress Note: Quality Stroke Does the patient have a stroke diagnosis?: No
[2023-09-20 13:24] VITALS: BP 87/58
[2023-09-20 15:15] VITALS: BP 107/69; PULSE 97; RESP 18; TEMP 36; O2SAT 96
--- NOTE | 2023-09-20 15:33 | MHC.SL.SWA ---
Speech Pathologist Impression: Risk of aspiration Dysphasia Diet Status: Recommend CHOPPED (NDD3) with Thin Liquids, pills whole in puree or with liquid. Liquid Consistency and Strategies for Safe Swallow: Liquid Intake Recommendation: Thin Liquid Intake Strategies: Small Sips Solid Food Consistency: Dietary Recommendations: Chopped/Advanced (NDD3) Additional Modifications to Solid Foods: At this time, patient is anxious about eating more advanced textures, and refusing trials. Patient presents as likely functionally able to swallow more advanced consistencies, but currently agrees to Chopped Diet with the PLASTER MOLDER. Oral Medication Intake: Whole with Puree Please contact the pharmacy regarding appropriate crushable or liquid drug formulations that are available whenever modified delivery is recommended. Compensatory Strategies and Precautions to be Taken for Safe Swallow: Sitting Upright (90 deg) Small Bites and Sips Alternate Liquids/Solids Supervision While Eating and Drinking for Safe Swallow: Intermittent Supervision Foods to Avoid: Swallowing Recommended Treatments: Compens. Strategy Educat. Recommendation for Speech: Inpatient Speech Therapy Comment: PLASTER MOLDER will continue to follow to monitor tolerance and re-assess for potential upgrade if/when appropriate. Frequency/Duration: Date Range for Service Req: Timeline to reassess: Prepress Supervisor Clinican/Clinical Fellow: No Supervisory Statement: I have reviewed and agree with the student/clinical fellow's documentation: N/A Speech Language Pathologist: Trisha Yu M.A., [facility]-PLASTER MOLDER
--- NOTE | 2023-09-20 15:59 | MHC.CM.PN ---
per rounds bed search continues no [place] beds at this time
[2023-09-20 20:34] VITALS: BP 117/70; PULSE 86; RESP 18; TEMP 36.1; O2SAT 97
[2023-09-20] MEDS: Sertraline HCL 25 MG TABLET 12.5 MG PO (20:58)
[2023-09-21] VITALS: BP 110/72; PULSE 88; RESP 16; TEMP 36; O2SAT 96
[2023-09-21 07:20] LABS: Glucose, Whole Blood 98 mg/dL (60-115)
[2023-09-21 07:50] VITALS: BP 114/75; PULSE 99; RESP 17; TEMP 36.9; O2SAT 97
[2023-09-21] MEDS: Lidocaine 4 % Patch ADH..PATCH 1 PATCH TRANSDERMA (08:11)
[2023-09-21] MEDS: Heparin Sodium,Porcine 5,000 UNIT/ML VIAL 5000 UNIT SUBCUT ×3 (08:12→22:08)
[2023-09-21] MEDS: Midodrine HCl 10 MG TABLET PO ×3 (08:13→16:00)
[2023-09-21] MEDS: ARIPiprazole 5 MG TABLET 2.5 MG PO (08:13)
[2023-09-21] MEDS: Gabapentin 100 MG CAPSULE PO ×2 (08:13→22:07)
[2023-09-21] MEDS: Fludrocortisone Acetate 0.1 MG TABLET PO (08:13)
[2023-09-21] MEDS: Fluticasone Propionate Nasal 16 GM SPRAY 2 SPRAY NOSTRIL-B (08:14)
[2023-09-21] MEDS: 0.9 % Sodium Chloride Flush 3 ML SYRINGE IVFLUSH ×3 (08:14→22:11)
--- NOTE | 2023-09-21 12:31 | P.PNNP_ITS ---
Subjective Subjective Date of Service: 09/21/23 Principal diagnosis: Elevated troponins Interval history: Seen and evaluated this morning . All recent data reviewed Physical Exam 2 Vital Signs: Vital Signs: Last Vital Signs Temp 98.4 F 09/21/23 07:50 Pulse 99 09/21/23 07:50 Resp 17 09/21/23 07:50 BP 114/75 09/21/23 07:50 Pulse Ox 97 09/21/23 07:50 O2 Del Method Room Air 09/21/23 07:50 O2 Flow Rate 2 09/17/23 12:00 BMI result Body Mass Index 49.2 Const: General: no acute distress Orientation/consciousness: patient oriented x3 Eyes: EOM: EOMs intact bilaterally Neck: Neck: Yes supple Resp: Auscultation: diminished lung sounds Cardio: Rate: regular rate GI: Palpation (GI): Soft to palpation Neuro: General: patient oriented x3 Objective Data Labs 09/14/23 05:31 09/14/23 05:31 Labs: Laboratory Results - last 24 hr 09/21/23 07:15 POC Glucose 98 Microbiology Microbiology Results: Microbiology 07/20/23 22:49 Blood - Venous Blood Culture - Final No growth after 5 days. 07/20/23 22:49 Blood - Venous Blood Culture - Final No growth after 5 days. 07/12/23 12:30 Blood - Venous Blood Culture - Final No growth after 5 days. 07/12/23 12:15 Blood - Venous Blood Culture - Final No growth after 5 days. 07/12/23 Unknown Urine Catheterized - Straight Catheter Urine Culture - Final No growth. 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 C/W Florinef 0.1 mg daily; C/W rest of current management Progress Note: Quality Stroke Does the patient have a stroke diagnosis?: No
--- NOTE | 2023-09-21 13:19 | P.PNIM_ITS ---
Subjective Subjective Date of Service: 09/21/23 Interval History: Seen and evaluated this morning no complaints overnight Review of Systems Review of Systems: Yes all other systems are reviewed and are negative Physical Exam 2 Vital Signs: Vital Signs: Last Vital Signs Temp 98.4 F 09/21/23 07:50 Pulse 99 09/21/23 07:50 Resp 17 09/21/23 07:50 BP 114/75 09/21/23 07:50 Pulse Ox 97 09/21/23 07:50 O2 Del Method Room Air 09/21/23 07:50 O2 Flow Rate 2 09/17/23 12:00 BMI result Body Mass Index 49.2 Const: Other: Constitutional : Awake, obese, frail looking, not in distress Neck : Normal inspection, Supple Cardiovascular : RRR, no JVP, no significant edema Respiratory : good bilateral air entry, no crackles, no wheezes or rhonchi Gastrointestinal: soft, lax, Non tender Skin : Warm, Dry, Permacath in place Neurological : Alert & oriented, No focal deficit Objective Data Active Medications Acetaminophen (Acetaminophen 325 Mg Tablet) 650 mg PO Q4H PRN PRN Reason: Pain, Moderate(Pain Scale 4-6) Last Admin: 09/19/23 18:38 Dose: 650 mg Documented By: OPHELIA Aripiprazole (Aripiprazole 5 Mg Tablet) 2.5 mg PO DAILY [facility] Last Admin: 09/21/23 08:13 Dose: 2.5 mg Documented By: EBONI Fludrocortisone Acetate (Fludrocortisone Acetate 0.1 Mg Tablet) 0.1 mg PO DAILY [facility] Last Admin: 09/21/23 08:13 Dose: 0.1 mg Documented By: EBONI Fluticasone Propionate (Fluticasone Propionate Nasal 16 Gm [place]) 2 spray NOSTRIL-B DAILY [facility] Last Admin: 09/21/23 08:14 Dose: 2 spray Documented By: EBONI Gabapentin (Gabapentin 100 Mg Capsule) 100 mg PO BID [facility] Last Admin: 09/21/23 08:13 Dose: 100 mg Documented By: EBONI Heparin Sodium (Porcine) (Heparin Sodium,Porcine 5,000 Unit/Ml Vial) 5,000 unit SUBCUT TID [facility] Last Admin: 09/21/23 08:12 Dose: 5,000 unit Documented By: EBONI Heparin Sodium (Porcine) (Heparin Sodium,Porcine 1,000 Unit/Ml Vial) 4,000 unit IV MOWEFR [facility] Last Admin: 09/20/23 13:38 Dose: Not Given Documented By: EBONI Non-Admin Reason: Off unit: Dialysis Hydrocortisone (Hydrocortisone 1 % Cream 28.35 Gm Tube) 1 appl TOPICAL DAILY [facility]; Protocol Last Admin: 09/21/23 08:15 Dose: Not Given Documented By: EBONI Non-Admin Reason: Patient Refused Dextrose (D10) 250 mls @ 750 mls/hr IV Q15M PRN PRN Reason: per Hypoglycemia Standing Ord. Lidocaine (Lidocaine 4 % Patch Adh..Patch) 1 patch TRANSDERMA DAILY [facility] Last Admin: 09/21/23 08:11 Dose: 1 patch Documented By: EBONI Midodrine (Midodrine Hcl 10 Mg Tablet) 10 mg PO TIDWM [facility] Last Admin: 09/21/23 11:41 Dose: 10 mg Documented By: EBONI Multi-Ingred Cream/Lotion/Oil/Oint (Mineral Oil/Petrolatum,White 106 Gm Tube) 1 appl TOPICAL BID [facility]; Protocol Last Admin: 09/21/23 08:15 Dose: Not Given Documented By: EBONI Non-Admin Reason: Patient Refused Nystatin (Nystatin Powder 15 Gm Bottle) 1 appl TOPICAL BID [facility]; Protocol Last Admin: 09/21/23 08:15 Dose: Not Given Documented By: EBONI Non-Admin Reason: no rash Ondansetron HCl (Ondansetron Odt 4 Mg Tab.Rapdis) 4 mg TRANSLINGU Q6H PRN PRN Reason: Nausea and Vomiting Polyethylene Glycol (Polyethylene Glycol 3350 17 Gm Powd.Pack) 17 gm PO DAILY [facility] Last Admin: 09/21/23 08:15 Dose: Not Given Documented By: EBONI Non-Admin Reason: Patient Refused Sertraline HCl (Sertraline Hcl 25 Mg Tablet) 12.5 mg PO BEDTIME [facility] Last Admin: 09/20/23 20:58 Dose: 12.5 mg Documented By: TOYA Sodium Chloride (0.9 % Sodium Chloride Flush 3 Ml Syringe) 3 ml IVFLUSH QSHIFT [facility] Last Admin: 09/21/23 08:14 Dose: 3 ml Documented By: EBONI Trazodone HCl (Trazodone Hcl 25 Mg Halftab) 25 mg PO BEDTIME [facility] Last Admin: 09/20/23 21:02 Dose: Not Given Documented By: TOYA Non-Admin Reason: PT SLEEPY Labs 09/14/23 05:31 09/14/23 05:31 Labs: Laboratory Results - last 24 hr 09/21/23 07:15 POC Glucose 98 Assessment and Plan (1) ESRD needing dialysis: Status: Acute Plan 53M PMH of DM2, HTN, Asthma who presented to ED After sustaining a fall and laying on the floor for 9 hours found to have severe acute kidney injury from rhabdomyolysis complicated by hyperkalemia ESRD requiring HD post CHITO and severe hyperkalemia and acute metabolic acidosis due to ATN from rhabdomyolysis and no renal recovery permacath placed 07/16/23. 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 , Compression stocking, Started Fludricortisone. - Chronic Leg and back pain , continue gabapentin 100mg BID - Hx major recurrent Depression. Psychiatry 08/23, they recommended decrease dose of Abilify to 2.5 mg daily ,since it can cause orthostasis, decrease dose of trazodone to 25 mg at bedtime and Zoloft low-dose added - Diabetes type 2, not on meds, hemoglobin A1c 6.1 on 12/31. - PHysical deconditioning, PT recommend short-term rehab/recommend out of bed to chair for all meals DVT PPx: Heparin reason for continued hospitalization: debilitated / depressed, safe discharge to short-term rehab. Quality Stroke Does the patient have a stroke diagnosis?: No VTE Prior VTE?: No VTE Risk Level:: Medical - moderate - high VTE Device Contraindication: N/A - Device Ordered VTE Drug Contraindication: N/A - Med Ordered
--- NOTE | 2023-09-21 13:34 | MHC.SPEECHCO ---
Pt declined offering of Regular Solid trials again today. He verbalizes back that he would rather have an entire tray of Chopped/Advanced Solids (NDD3) rather than Regular Solids that he can't eat. He reports that he is comfortable being discharged from Speech Therapy with the NDD3 recommendation. Please re-refer if status changes.
[2023-09-21 15:11] VITALS: BP 139/88; PULSE 90; TEMP 36.1; O2SAT 96
[2023-09-21] MEDS: traZODone HCL 25 MG HALFTAB PO (22:07)
[2023-09-21] MEDS: Sertraline HCL 25 MG TABLET 12.5 MG PO (22:09)
[2023-09-21] MEDS: Nystatin Powder 15 GM BOTTLE 1 APPL TOPICAL (22:10)
[2023-09-21 23:44] VITALS: BP 123/78; PULSE 81; RESP 20; TEMP 36.2; O2SAT 96
--- NOTE | 2023-09-22 09:16 | P.PNNP_ITS ---
Subjective Subjective Date of Service: 09/22/23 Principal diagnosis: Elevated troponins Interval history: Seen and evaluated on HD this morning ; All recent data reviewed. D/W HD RN Physical Exam 2 Vital Signs: Vital Signs: Last Vital Signs Temp 97.2 F 09/21/23 23:44 Pulse 81 09/21/23 23:44 Resp 20 09/21/23 23:44 BP 123/78 09/21/23 23:44 Pulse Ox 96 09/21/23 23:44 O2 Del Method Room Air 09/21/23 23:44 O2 Flow Rate 2 09/17/23 12:00 BMI result Body Mass Index 49.2 Const: General: comfortable and no acute distress O rientation/consciousness: patient oriented x3 HEENT: Head: Yes normocephalic Mouth: Normal oral and palatal mucosa present Eyes: EOM: EOMs intact bilaterally Neck: Neck: Yes supple Resp: Auscultation: clear to auscultation bilaterally Cardio: Jugular venous distension: no JVD Rate: regular rate GI: Palpation (GI): Soft to palpation Auscultation: normal bowel sounds : General: Yes no CVA tenderness Back/Spine/Pelvis: Back: no CVA tenderness Skin: General skin exam: no rashes or lesions noted Neuro: General: patient oriented x3 and moves all extremities Extrem: General: Yes no pedal edema Objective Data Labs 09/14/23 05:31 09/14/23 05:31 Microbiology Microbiology Results: Microbiology 07/20/23 22:49 Blood - Venous Blood Culture - Final No growth after 5 days. 07/20/23 22:49 Blood - Venous Blood Culture - Final No growth after 5 days. 07/12/23 12:30 Blood - Venous Blood Culture - Final No growth after 5 days. 07/12/23 12:15 Blood - Venous Blood Culture - Final No growth after 5 days. 07/12/23 Unknown Urine Catheterized - Straight Catheter Urine Culture - Final No growth. 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 C/W Florinef 0.1 mg daily; C/W rest of current management Progress Note: Quality Stroke Does the patient have a stroke diagnosis?: No
[2023-09-22] MEDS: Heparin Sodium,Porcine 5,000 UNIT/ML VIAL 5000 UNIT SUBCUT ×2 (10:51→20:26)
[2023-09-22] MEDS: Lidocaine 4 % Patch ADH..PATCH 1 PATCH TRANSDERMA (10:51)
[2023-09-22] MEDS: Gabapentin 100 MG CAPSULE PO ×2 (10:52→20:26)
[2023-09-22] MEDS: Fludrocortisone Acetate 0.1 MG TABLET PO (10:52)
[2023-09-22] MEDS: Midodrine HCl 10 MG TABLET PO ×2 (10:52→16:15)
[2023-09-22] MEDS: ARIPiprazole 5 MG TABLET 2.5 MG PO (10:52)
[2023-09-22] MEDS: polyethylene glycoL 3350 17 GM POWD.PACK PO (10:53)
[2023-09-22] MEDS: Nystatin Powder 15 GM BOTTLE 1 APPL TOPICAL ×2 (10:54→20:28)
[2023-09-22] MEDS: Mineral Oil/Petrolatum,White 106 GM Tube 1 APPL TOPICAL ×2 (10:54→20:28)
[2023-09-22] MEDS: Fluticasone Propionate Nasal 16 GM SPRAY 2 SPRAY NOSTRIL-B (10:54)
--- NOTE | 2023-09-22 11:05 | HO.PM.IMPN ---
Subjective Subjective Date of Service: 09/22/23 Interval History: Seen and evaluated this morning at dialysis no complaints overnight Review of Systems Review of Systems: Yes all other systems are reviewed and are negative Physical Exam Vital Signs: Vital Signs: Last Vital Signs Temp 97.2 F 09/21/23 23:44 Pulse 81 09/21/23 23:44 Resp 20 09/21/23 23:44 BP 123/78 09/21/23 23:44 Pulse Ox 96 09/21/23 23:44 O2 Del Method Room Air 09/21/23 23:44 O2 Flow Rate 2 09/17/23 12:00 BMI result Body Mass Index 49.2 Const: Other: Constitutional : Awake, obese, frail looking, not in distress Neck : Normal inspection, Supple Cardiovascular : RRR, no JVP, no significant edema Respiratory : good bilateral air entry, no crackles, no wheezes or rhonchi Gastrointestinal: soft, lax, Non tender Skin : Warm, Dry, Permacath in place Neurological : Alert & oriented, No focal deficit Objective Data Active Medications Acetaminophen (Acetaminophen 325 Mg Tablet) 650 mg PO Q4H PRN PRN Reason: Pain, Moderate(Pain Scale 4-6) Last Admin: 09/19/23 18:38 Dose: 650 mg Documented By: OPHELIA Aripiprazole (Aripiprazole 5 Mg Tablet) 2.5 mg PO DAILY [facility] Last Admin: 09/22/23 10:52 Dose: 2.5 mg Documented By: CASSANDRA Comments: Fludrocortisone Acetate (Fludrocortisone Acetate 0.1 Mg Tablet) 0.1 mg PO DAILY [facility] Last Admin: 09/22/23 10:52 Dose: 0.1 mg Documented By: CASSANDRA Fluticasone Propionate (Fluticasone Propionate Nasal 16 Gm [place]) 2 spray NOSTRIL-B DAILY [facility] Last Admin: 09/22/23 10:54 Dose: 2 spray Documented By: CASSANDRA Gabapentin (Gabapentin 100 Mg Capsule) 100 mg PO BID [facility] Last Admin: 09/22/23 10:52 Dose: 100 mg Documented By: CASSANDRA Heparin Sodium (Porcine) (Heparin Sodium,Porcine 5,000 Unit/Ml Vial) 5,000 unit SUBCUT TID [facility] Last Admin: 09/22/23 10:51 Dose: 5,000 unit Documented By: CASSANDRA Heparin Sodium (Porcine) (Heparin Sodium,Porcine 1,000 Unit/Ml Vial) 4,000 unit IV MOWEFR [facility] Last Admin: 09/20/23 13:38 Dose: Not Given Documented By: EBONI Non-Admin Reason: Off unit: Dialysis Hydrocortisone (Hydrocortisone 1 % Cream 28.35 Gm Tube) 1 appl TOPICAL DAILY [facility]; Protocol Last Admin: 09/22/23 10:55 Dose: Not Given Documented By: CASSANDRA Non-Admin Reason: Patient Refused Dextrose (D10) 250 mls @ 750 mls/hr IV Q15M PRN PRN Reason: per Hypoglycemia Standing Ord. Lidocaine (Lidocaine 4 % Patch Adh..Patch) 1 patch TRANSDERMA DAILY [facility] Last Admin: 09/22/23 10:51 Dose: 1 patch Documented By: CASSANDRA Midodrine (Midodrine Hcl 10 Mg Tablet) 10 mg PO TIDWM [facility] Last Admin: 09/22/23 10:52 Dose: 10 mg Documented By: CASSANDRA Multi-Ingred Cream/Lotion/Oil/Oint (Mineral Oil/Petrolatum,White 106 Gm Tube) 1 appl TOPICAL BID [facility]; Protocol Last Admin: 09/22/23 10:54 Dose: 1 appl Documented By: CASSANDRA Nystatin (Nystatin Powder 15 Gm Bottle) 1 appl TOPICAL BID [facility]; Protocol Last Admin: 09/22/23 10:54 Dose: 1 appl Documented By: CASSANDRA Ondansetron HCl (Ondansetron Odt 4 Mg Tab.Rapdis) 4 mg TRANSLINGU Q6H PRN PRN Reason: Nausea and Vomiting Polyethylene Glycol (Polyethylene Glycol 3350 17 Gm Powd.Pack) 17 gm PO DAILY [facility] Last Admin: 09/22/23 10:53 Dose: 17 gm Documented By: CASSANDRA Sertraline HCl (Sertraline Hcl 25 Mg Tablet) 12.5 mg PO BEDTIME [facility] Last Admin: 09/21/23 22:09 Dose: 12.5 mg Documented By: GARY Sodium Chloride (0.9 % Sodium Chloride Flush 3 Ml Syringe) 3 ml IVFLUSH QSHIFT [facility] Last Admin: 09/22/23 09:50 Dose: Not Given Documented By: CASSANDRA Non-Admin Reason: off unit Trazodone HCl (Trazodone Hcl 25 Mg Halftab) 25 mg PO BEDTIME [facility] Last Admin: 09/21/23 22:07 Dose: 25 mg Documented By: GARY Labs 09/14/23 05:31 09/14/23 05:31 Assessment and Plan (1) ESRD needing dialysis: Status: Acute Plan 53M PMH of DM2, HTN, Asthma who presented to ED After sustaining a fall and laying on the floor for 9 hours found to have severe acute kidney injury from rhabdomyolysis complicated by hyperkalemia ESRD requiring HD post CHITO and severe hyperkalemia and acute metabolic acidosis due to ATN from rhabdomyolysis and no renal recovery permacath placed 07/16/23. 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 , Compression stocking, Started Fludricortisone. - Chronic Leg and back pain , continue gabapentin 100mg BID - Hx major recurrent Depression. Psychiatry 08/23, they recommended decrease dose of Abilify to 2.5 mg daily ,since it can cause orthostasis, decrease dose of trazodone to 25 mg at bedtime and Zoloft low-dose added - Diabetes type 2, not on meds, hemoglobin A1c 6.1 on 12/31. - PHysical deconditioning, PT recommend short-term rehab/recommend out of bed to chair for all meals DVT PPx: Heparin reason for continued hospitalization: debilitated / depressed, safe discharge to short-term rehab. Quality Stroke Does the patient have a stroke diagnosis?: No VTE Prior VTE?: No VTE Risk Level:: Medical - moderate - high VTE Device Contraindication: N/A - Device Ordered VTE Drug Contraindication: N/A - Med Ordered
[2023-09-22 12:10] VITALS: BP 105/71; PULSE 115; RESP 18; TEMP 36.2; O2SAT 97
[2023-09-22 16:02] VITALS: BP 92/61; PULSE 100; RESP 12; TEMP 36.1; O2SAT 95
[2023-09-22] MEDS: 0.9 % Sodium Chloride Flush 3 ML SYRINGE IVFLUSH ×2 (16:15→20:29)
[2023-09-22] MEDS: Sertraline HCL 25 MG TABLET 12.5 MG PO (20:25)
[2023-09-22] MEDS: traZODone HCL 25 MG HALFTAB PO (20:25)
[2023-09-23] VITALS: BP 108/62; PULSE 105; RESP 16; TEMP 36.1; O2SAT 95
[2023-09-23 08:00] VITALS: BP 101/58; PULSE 111; RESP 18; TEMP 36; O2SAT 94
[2023-09-23] MEDS: polyethylene glycoL 3350 17 GM POWD.PACK PO (08:19)
[2023-09-23] MEDS: Lidocaine 4 % Patch ADH..PATCH 1 PATCH TRANSDERMA (08:19)
[2023-09-23] MEDS: Midodrine HCl 10 MG TABLET PO ×3 (08:20→16:10)
[2023-09-23] MEDS: Fludrocortisone Acetate 0.1 MG TABLET PO (08:20)
[2023-09-23] MEDS: Heparin Sodium,Porcine 5,000 UNIT/ML VIAL 5000 UNIT SUBCUT ×3 (08:20→19:40)
[2023-09-23] MEDS: ARIPiprazole 5 MG TABLET 2.5 MG PO (08:20)
[2023-09-23] MEDS: Gabapentin 100 MG CAPSULE PO ×2 (08:20→19:41)
[2023-09-23] MEDS: Mineral Oil/Petrolatum,White 106 GM Tube 1 APPL TOPICAL ×2 (08:24→19:40)
[2023-09-23] MEDS: Nystatin Powder 15 GM BOTTLE 1 APPL TOPICAL ×2 (08:24→19:40)
[2023-09-23] MEDS: 0.9 % Sodium Chloride Flush 3 ML SYRINGE IVFLUSH ×2 (08:24→16:40)
[2023-09-23] MEDS: Fluticasone Propionate Nasal 16 GM SPRAY 2 SPRAY NOSTRIL-B (08:24)
--- NOTE | 2023-09-23 08:34 | P.PNNP_ITS ---
Subjective Subjective Date of Service: 09/23/23 Principal diagnosis: Elevated troponins Interval history: All recent data reviewed. Due HD tomorrow Physical Exam 2 Vital Signs: Vital Signs: Last Vital Signs Temp 96.8 F 09/23/23 08:00 Pulse 111 H 09/23/23 08:00 Resp 18 09/23/23 08:00 BP 101/58 L 09/23/23 08:00 Pulse Ox 94 09/23/23 08:00 O2 Del Method Room Air 09/23/23 08:00 O2 Flow Rate 2 09/17/23 12:00 BMI result Body Mass Index 49.2 Const: General: comfortable and no acute distress O rientation/consciousness: patient oriented x3 HEENT: Head: Yes normocephalic Mouth: Normal oral and palatal mucosa present Eyes: EOM: EOMs intact bilaterally Neck: Neck: Yes supple Resp: Auscultation: clear to auscultation bilaterally Cardio: Jugular venous distension: no JVD Rate: regular rate GI: Palpation (GI): Soft to palpation Auscultation: normal bowel sounds : General: Yes no CVA tenderness Back/Spine/Pelvis: Back: no CVA tenderness Skin: General skin exam: no rashes or lesions noted Neuro: General: patient oriented x3 and moves all extremities Extrem: General: Yes no pedal edema Objective Data Labs 09/14/23 05:31 09/14/23 05:31 Microbiology Microbiology Results: Microbiology 07/20/23 22:49 Blood - Venous Blood Culture - Final No growth after 5 days. 07/20/23 22:49 Blood - Venous Blood Culture - Final No growth after 5 days. 07/12/23 12:30 Blood - Venous Blood Culture - Final No growth after 5 days. 07/12/23 12:15 Blood - Venous Blood Culture - Final No growth after 5 days. 07/12/23 Unknown Urine Catheterized - Straight Catheter Urine Culture - Final No growth. 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 C/W Florinef 0.1 mg daily; C/W rest of current management Progress Note: Quality Stroke Does the patient have a stroke diagnosis?: No
--- NOTE | 2023-09-23 13:03 | HO.PM.IMPN ---
Subjective Subjective Date of Service: 09/23/23 Interval History: No acute issues overnight Review of Systems Denies chest pain Denies shortness of breath Denies nausea vomiting diarrhea Denies fever chills Physical Exam Vital Signs: Vital Signs: Last Vital Signs Temp 96.8 F 09/23/23 08:00 Pulse 111 H 09/23/23 08:00 Resp 18 09/23/23 08:00 BP 101/58 L 09/23/23 08:00 Pulse Ox 94 09/23/23 08:00 O2 Del Method Room Air 09/23/23 08:00 O2 Flow Rate 2 09/17/23 12:00 BMI result Body Mass Index 49.2 Const: Other: Awake alert no acute distress Resp: Other: Clear to auscultation no rales rhonchi or wheeze Cardio: Other: No S4; positive S1-S2; no S3 murmurs rubs or gallops GI: Other: Soft nontender nondistended normoactive bowel sounds Extrem: Other: No edema bilaterally Objective Data Active Medications Acetaminophen (Acetaminophen 325 Mg Tablet) 650 mg PO Q4H PRN PRN Reason: Pain, Moderate(Pain Scale 4-6) Last Admin: 09/19/23 18:38 Dose: 650 mg Documented By: OPHELIA Aripiprazole (Aripiprazole 5 Mg Tablet) 2.5 mg PO DAILY [facility] Last Admin: 09/23/23 08:20 Dose: 2.5 mg Documented By: CASSANDRA Fludrocortisone Acetate (Fludrocortisone Acetate 0.1 Mg Tablet) 0.1 mg PO DAILY [facility] Last Admin: 09/23/23 08:20 Dose: 0.1 mg Documented By: CASSANDRA Fluticasone Propionate (Fluticasone Propionate Nasal 16 Gm [place]) 2 spray NOSTRIL-B DAILY [facility] Last Admin: 09/23/23 08:24 Dose: 2 spray Documented By: CASSANDRA Gabapentin (Gabapentin 100 Mg Capsule) 100 mg PO BID [facility] Last Admin: 09/23/23 08:20 Dose: 100 mg Documented By: CASSANDRA Heparin Sodium (Porcine) (Heparin Sodium,Porcine 5,000 Unit/Ml Vial) 5,000 unit SUBCUT TID [facility] Last Admin: 09/23/23 08:20 Dose: 5,000 unit Documented By: CASSANDRA Heparin Sodium (Porcine) (Heparin Sodium,Porcine 1,000 Unit/Ml Vial) 4,000 unit IV MOWEFR [facility] Last Admin: 09/22/23 14:00 Dose: Not Given Documented By: CASSANDRA Non-Admin Reason: to be done in HD by HD Rn Hydrocortisone (Hydrocortisone 1 % Cream 28.35 Gm Tube) 1 appl TOPICAL DAILY [facility]; Protocol Last Admin: 09/23/23 08:26 Dose: Not Given Documented By: CASSANDRA Non-Admin Reason: Patient Refused Dextrose (D10) 250 mls @ 750 mls/hr IV Q15M PRN PRN Reason: per Hypoglycemia Standing Ord. Lidocaine (Lidocaine 4 % Patch Adh..Patch) 1 patch TRANSDERMA DAILY [facility] Last Admin: 09/23/23 08:19 Dose: 1 patch Documented By: CASSANDRA Midodrine (Midodrine Hcl 10 Mg Tablet) 10 mg PO TIDWM [facility] Last Admin: 09/23/23 11:33 Dose: 10 mg Documented By: CASSANDRA Multi-Ingred Cream/Lotion/Oil/Oint (Mineral Oil/Petrolatum,White 106 Gm Tube) 1 appl TOPICAL BID [facility]; Protocol Last Admin: 09/23/23 08:24 Dose: 1 appl Documented By: CASSANDRA Nystatin (Nystatin Powder 15 Gm Bottle) 1 appl TOPICAL BID [facility]; Protocol Last Admin: 09/23/23 08:24 Dose: 1 appl Documented By: CASSANDRA Ondansetron HCl (Ondansetron Odt 4 Mg Tab.Rapdis) 4 mg TRANSLINGU Q6H PRN PRN Reason: Nausea and Vomiting Polyethylene Glycol (Polyethylene Glycol 3350 17 Gm Powd.Pack) 17 gm PO DAILY [facility] Last Admin: 09/23/23 08:19 Dose: 17 gm Documented By: CASSANDRA Sertraline HCl (Sertraline Hcl 25 Mg Tablet) 12.5 mg PO BEDTIME [facility] Last Admin: 09/22/23 20:25 Dose: 12.5 mg Documented By: GARY Comments: Sodium Chloride (0.9 % Sodium Chloride Flush 3 Ml Syringe) 3 ml IVFLUSH QSHIFT [facility] Last Admin: 09/23/23 08:24 Dose: 3 ml Documented By: CASSANDRA Trazodone HCl (Trazodone Hcl 25 Mg Halftab) 25 mg PO BEDTIME [facility] Last Admin: 09/22/23 20:25 Dose: 25 mg Documented By: GARY Labs 09/14/23 05:31 09/14/23 05:31 Assessment and Plan (1) ESRD needing dialysis: Status: Acute Plan 53 years old male with PMH of DM2, HTN, Asthma who presented to ED After sustaining a fall and laying on the floor for 9 hours found to have severe acute kidney injury from rhabdomyolysis and hyperkalemia 1.CHITO and severe hyperkalemia and acute metabolic acidosis due to ATN from rhabdomyolysis and no renal recovery and started on HD, TTS, -permacath placed 07/16/23. -receiving dialysis MWF -follow renals/divalents -stable and well compensated at this time 2.Chronic Leg and back pain Stable, continue gabapentin 100mg BID 3.Depression. unspecified -No behavioral issues, seen by psychiatry 08/23, they recommended decrease dose of Abilify to 2.5 mg daily ,since it can cause orthostasis, decrease dose of trazodone to 25 mg at bedtime and Zoloft low-dose added -continue to encourage participation in PT 4.Acute?Rhabdomyolysis -resolved with volume -follow clinically 5.Diabetes type 2 -acceptable control on current therapies -lispro correctional scale -adjust as indicated Heparin Full code reason for continued hospitalization: debilitated / depressed, safe discharge to short-term rehab. Quality Stroke Does the patient have a stroke diagnosis?: No VTE Prior VTE?: No VTE Risk Level:: Medical - moderate - high VTE Device Contraindication: N/A - Device Ordered VTE Drug Contraindication: N/A - Med Ordered
[2023-09-23 15:22] VITALS: BP 117/71; PULSE 85; RESP 20; TEMP 36.4; O2SAT 96
[2023-09-23 19:26] VITALS: BP 107/69; PULSE 87; RESP 20; TEMP 36.1; O2SAT 95
[2023-09-23] MEDS: traZODone HCL 25 MG HALFTAB PO (19:41)
[2023-09-23] MEDS: Sertraline HCL 25 MG TABLET 12.5 MG PO (19:41)
[2023-09-23 23:32] VITALS: BP 114/63; PULSE 95; RESP 16; TEMP 36.3; O2SAT 95
[2023-09-24] MEDS: 0.9 % Sodium Chloride Flush 3 ML SYRINGE IVFLUSH ×4 (01:40→19:54)
--- NOTE | 2023-09-24 06:29 | PC.NURSE ---
This proposal lead writer assumed care of this patient at 23:00. Patient transported to dialysis on s4 at 05:30. Please see shift assessments and tasks for full details.
[2023-09-24 06:43] LABS: Basophils Absolute Auto 0.1 X10*3/uL (0.0-0.2); Basophils Percent Auto 0.7 % (0-2); Eosinophils Absolute Auto 0.2 X10*3/uL (0.0-0.4); Eosinophils Percent Auto 2.6 % (0-4); Hematocrit 35.1 % (42.0-52.0); Hemoglobin 11.2 g/dl (14.0-18.0); Imm Gran Abs Auto 0.05 X10*3/uL (0.00-0.03); Imm Gran Pct Auto 0.6 % (0.0-0.4); Lymphocytes Absolute Auto 1.8 X10*3/uL (1.2-4.9); Mean Corpuscular HGB Conc 31.9 g/dl (31.0-36.0); Mean Corpuscular Hemoglobin 30.4 pg (27.0-33.0); Mean Corpuscular Volume 95.1 fL (80.0-98.0); Mean Platelet Volume 8.8 fL (9.4-12.4); Monocytes Absolute Auto 0.8 X10*3/uL (0.1-1.2); Neutrophils Absolute Auto 5.5 x10*3/uL (2.0-8.3); Neutrophils Percent Auto 66.1 % (45-73); Red Blood Count 3.69 X10*6/uL (4.60-5.80); Red Cell Distribution Width 14.7 % (11.0-16.0)
[2023-09-24 06:47] LABS: Platelet Count 316 X10*3/uL (160-400); White Blood Count 8.3 X10*3/uL (4.8-10.8)
--- NOTE | 2023-09-24 09:48 | PC.NURSE ---
Patient in Dialysis,previous RN reported since 529
[2023-09-24] MEDS: Fludrocortisone Acetate 0.1 MG TABLET PO (11:07)
[2023-09-24 11:08] LABS: Glucose, Whole Blood 104 mg/dL (60-115)
[2023-09-24] MEDS: Midodrine HCl 10 MG TABLET PO ×2 (11:08→16:06)
[2023-09-24] MEDS: ARIPiprazole 5 MG TABLET 2.5 MG PO (11:08)
[2023-09-24] MEDS: Gabapentin 100 MG CAPSULE PO ×2 (11:08→19:55)
[2023-09-24] MEDS: Fluticasone Propionate Nasal 16 GM SPRAY 2 SPRAY NOSTRIL-B (11:09)
[2023-09-24] MEDS: Heparin Sodium,Porcine 5,000 UNIT/ML VIAL 5000 UNIT SUBCUT ×3 (11:09→19:53)
[2023-09-24] MEDS: Nystatin Powder 15 GM BOTTLE 1 APPL TOPICAL (11:10)
[2023-09-24] MEDS: Lidocaine 4 % Patch ADH..PATCH 1 PATCH TRANSDERMA (11:11)
--- NOTE | 2023-09-24 11:57 | HO.PM.IMPN ---
Subjective Subjective Date of Service: 09/24/23 Interval History: Being followed for placement Patient receiving hemodialysis, offers no acute complaints, denies pain, tolerating diet with no nausea, no vomiting, or abdominal discomfort, no lightheadedness, or dizziness, no acute events overnight. Review of Systems All other system reviewed and are negative. Physical Exam Vital Signs: Vital Signs: Last Vital Signs Temp 97.4 F 09/23/23 23:32 Pulse 95 09/23/23 23:32 Resp 16 09/23/23 23:32 BP 114/63 09/23/23 23:32 Pulse Ox 95 09/23/23 23:32 O2 Del Method Room Air 09/23/23 23:32 O2 Flow Rate 2 09/17/23 12:00 BMI result Body Mass Index 49.2 Const: Other: General awake alert in no distress anicteric sclera Neck no JVD. CVS regular rate rhythm, Respiratory lungs clear to auscultation, no respiratory distress, no wheeze, no rhonchi. Gastrointestinal abdomen soft, non tender, bowel sounds audible. Extremities no edema. Neuro non focal, speech clear. Skin no rash Psych appropriate affect Objective Data Active Medications Acetaminophen (Acetaminophen 325 Mg Tablet) 650 mg PO Q4H PRN PRN Reason: Pain, Moderate(Pain Scale 4-6) Last Admin: 09/19/23 18:38 Dose: 650 mg Documented By: OPHELIA Aripiprazole (Aripiprazole 5 Mg Tablet) 2.5 mg PO DAILY [facility] Last Admin: 09/24/23 11:08 Dose: 2.5 mg Documented By: ANTON Fludrocortisone Acetate (Fludrocortisone Acetate 0.1 Mg Tablet) 0.1 mg PO DAILY [facility] Last Admin: 09/24/23 11:07 Dose: 0.1 mg Documented By: ANTON Fluticasone Propionate (Fluticasone Propionate Nasal 16 Gm [place]) 2 spray NOSTRIL-B DAILY [facility] Last Admin: 09/24/23 11:09 Dose: 2 spray Documented By: ANTON Gabapentin (Gabapentin 100 Mg Capsule) 100 mg PO BID [facility] Last Admin: 09/24/23 11:08 Dose: 100 mg Documented By: ANTON Heparin Sodium (Porcine) (Heparin Sodium,Porcine 5,000 Unit/Ml Vial) 5,000 unit SUBCUT TID [facility] Last Admin: 09/24/23 11:09 Dose: 5,000 unit Documented By: ANTON Heparin Sodium (Porcine) (Heparin Sodium,Porcine 1,000 Unit/Ml Vial) 4,000 unit IV MOWEFR [facility] Last Admin: 09/22/23 14:00 Dose: Not Given Documented By: CASSANDRA Non-Admin Reason: to be done in HD by HD Rn Hydrocortisone (Hydrocortisone 1 % Cream 28.35 Gm Tube) 1 appl TOPICAL DAILY [facility]; Protocol Last Admin: 09/23/23 08:26 Dose: Not Given Documented By: CASSANDRA Non-Admin Reason: Patient Refused Dextrose (D10) 250 mls @ 750 mls/hr IV Q15M PRN PRN Reason: per Hypoglycemia Standing Ord. Lidocaine (Lidocaine 4 % Patch Adh..Patch) 1 patch TRANSDERMA DAILY [facility] Last Admin: 09/24/23 11:11 Dose: 1 patch Documented By: ANTON Midodrine (Midodrine Hcl 10 Mg Tablet) 10 mg PO TIDWM [facility] Last Admin: 09/24/23 11:08 Dose: 10 mg Documented By: ANTON Multi-Ingred Cream/Lotion/Oil/Oint (Mineral Oil/Petrolatum,White 106 Gm Tube) 1 appl TOPICAL BID [facility]; Protocol Last Admin: 09/24/23 11:14 Dose: Not Given Documented By: ANTON Non-Admin Reason: Patient Refused Nystatin (Nystatin Powder 15 Gm Bottle) 1 appl TOPICAL BID [facility]; Protocol Last Admin: 09/24/23 11:10 Dose: 1 appl Documented By: ANTON Ondansetron HCl (Ondansetron Odt 4 Mg Tab.Rapdis) 4 mg TRANSLINGU Q6H PRN PRN Reason: Nausea and Vomiting Polyethylene Glycol (Polyethylene Glycol 3350 17 Gm Powd.Pack) 17 gm PO DAILY [facility] Last Admin: 09/24/23 11:17 Dose: Not Given Documented By: ANTON Non-Admin Reason: Patient Refused Sertraline HCl (Sertraline Hcl 25 Mg Tablet) 12.5 mg PO BEDTIME [facility] Last Admin: 09/23/23 19:41 Dose: 12.5 mg Documented By: TERRIE Sodium Chloride (0.9 % Sodium Chloride Flush 3 Ml Syringe) 3 ml IVFLUSH QSHIFT [facility] Last Admin: 09/24/23 10:56 Dose: 3 ml Documented By: ANTON Trazodone HCl (Trazodone Hcl 25 Mg Halftab) 25 mg PO BEDTIME [facility] Last Admin: 09/23/23 19:41 Dose: 25 mg Documented By: TERRIE Labs 09/24/23 05:40 09/14/23 05:31 Labs: Laboratory Results - last 24 hr 09/24/23 09/24/23 05:40 10:54 MCV 95.1 MCH 30.4 MCHC 31.9 RDW 14.7 Plt Count 316 MPV 8.8 L Immature Gran % (Auto) 0.6 H Neut % (Auto) 66.1 Lymph % (Auto) 21.0 Winn % (Auto) 9.0 Eos % (Auto) 2.6 Baso % (Auto) 0.7 Lymph # (Auto) 1.8 [place] # (Auto) 0.8 Eos # (Auto) 0.2 Baso # (Auto) 0.1 Abs Immat Gran (auto) 0.05 H Absolute Neuts (auto) 5.5 Absolute Nucleated RBC 0.000 Nucleated RBC % (auto) 0.0 POC Glucose 104 Assessment and Plan (1) ESRD needing dialysis: Status: Acute Plan 53 years old male with PMH of DM2, HTN, Asthma who presented to ED After sustaining a fall and laying on the floor for 9 hours found to have severe acute kidney injury from rhabdomyolysis and hyperkalemia 1.CHITO and severe hyperkalemia and acute metabolic acidosis due to ATN from rhabdomyolysis and no renal recovery and started on HD, TTS, -permacath placed 07/16/23. -receiving dialysis MWF -follow renals/divalents -stable and well compensated at this time 2.Chronic Leg and back pain Stable, continue gabapentin 100mg BID 3.Depression. unspecified -No behavioral issues, seen by psychiatry 08/23, they recommended decrease dose of Abilify to 2.5 mg daily ,since it can cause orthostasis, decrease dose of trazodone to 25 mg at bedtime and Zoloft low-dose added -continue to encourage participation in PT /patient tolerating current medications, BP stable 4.Acute?Rhabdomyolysis -resolved with volume -follow clinically 5.Diabetes type 2 -stable blood sugars, last hemoglobin A1c 6.1 ,12/28/2022. 6.Morbid Obesity. BMI 49.2 Low-calorie diet/ weight management . Heparin Full code reason for continued hospitalization: debilitated / depressed, safe discharge to short-term rehab. Quality Stroke Does the patient have a stroke diagnosis?: No VTE Prior VTE?: No VTE Risk Level:: Medical - moderate - high VTE Device Contraindication: N/A - Device Ordered VTE Drug Contraindication: N/A - Med Ordered
--- NOTE | 2023-09-24 12:33 | MHC.CM.PN ---
Addendum entered by Marcie Pompa 09/24/23 12:36: The referral has been resent to [facility] with updates. PT rec is STR. Patient requires HD. He is ESRD. Original Note: A clinical update has been sent to [facility]. No response from the liasonPhylicia. She stated yesterday that she was looking at the patient for the [facility] facility. CM will continue to follow for placement.
[2023-09-24] MEDS: Hydrocortisone 1 % Cream 28.35 GM TUBE 1 APPL TOPICAL (14:24)
[2023-09-24 15:42] VITALS: BP 109/70; PULSE 113; RESP 18; TEMP 36.3; O2SAT 96
[2023-09-24 16:05] VITALS: PULSE 102
--- NOTE | 2023-09-24 18:37 | P.PNNP_ITS ---
Subjective Subjective Date of Service: 09/24/23 Principal diagnosis: Elevated troponins Interval history: Seen on HD. Patient receiving hemodialysis, offers no acute complaints, denies pain, tolerating diet with no nausea, no vomiting, or abdominal discomfort, no lightheadedness, or dizziness, no acute events overnight. Physical Exam 2 Vital Signs: Vital Signs: Last Vital Signs Temp 97.4 F 09/24/23 15:42 Pulse 102 H 09/24/23 16:05 Resp 18 09/24/23 15:42 BP 109/70 09/24/23 15:42 Pulse Ox 96 09/24/23 15:42 O2 Del Method Room Air 09/24/23 15:42 O2 Flow Rate 2 09/17/23 12:00 BMI result Body Mass Index 49.2 Const: General: no acute distress Orientation/consciousness: patient oriented x3 Eyes: EOM: EOMs intact bilaterally Neck: Neck: Yes supple Resp: Auscultation: diminished lung sounds Cardio: Rate: regular rate GI: Palpation (GI): Soft to palpation Neuro: General: patient oriented x3 and moves all extremities Objective Data Labs 09/24/23 05:40 09/14/23 05:31 Labs: Laboratory Results - last 24 hr 09/24/23 09/24/23 05:40 10:54 WBC 8.3 RBC 3.69 L Hgb 11.2 L Hct 35.1 L MCV 95.1 MCH 30.4 MCHC 31.9 RDW 14.7 Plt Count 316 MPV 8.8 L Immature Gran % (Auto) 0.6 H Neut % (Auto) 66.1 Lymph % (Auto) 21.0 [place] % (Auto) 9.0 Eos % (Auto) 2.6 Baso % (Auto) 0.7 Lymph # (Auto) 1.8 [place] # (Auto) 0.8 Eos # (Auto) 0.2 Baso # (Auto) 0.1 Abs Immat Gran (auto) 0.05 H Absolute Neuts (auto) 5.5 Absolute Nucleated RBC 0.000 Nucleated RBC % (auto) 0.0 POC Glucose 104 Microbiology Microbiology Results: Microbiology 07/20/23 22:49 Blood - Venous Blood Culture - Final No growth after 5 days. 07/20/23 22:49 Blood - Venous Blood Culture - Final No growth after 5 days. 07/12/23 12:30 Blood - Venous Blood Culture - Final No growth after 5 days. 07/12/23 12:15 Blood - Venous Blood Culture - Final No growth after 5 days. 07/12/23 Unknown Urine Catheterized - Straight Catheter Urine Culture - Final No growth. 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 C/W Florinef 0.1 mg daily; C/W rest of current management Progress Note: Quality Stroke Does the patient have a stroke diagnosis?: No
[2023-09-24] MEDS: Acetaminophen 325 MG TABLET 650 MG PO (19:54)
[2023-09-24] MEDS: Sertraline HCL 25 MG TABLET 12.5 MG PO (19:54)
[2023-09-24] MEDS: traZODone HCL 25 MG HALFTAB PO (19:55)
[2023-09-24 23:38] VITALS: BP 114/78; PULSE 95; RESP 18; TEMP 36.3; O2SAT 98
[2023-09-25 07:52] VITALS: BP 109/70; PULSE 99; RESP 16; TEMP 36.1; O2SAT 96
[2023-09-25] MEDS: Midodrine HCl 10 MG TABLET PO ×3 (08:49→15:57)
[2023-09-25] MEDS: Heparin Sodium,Porcine 5,000 UNIT/ML VIAL 5000 UNIT SUBCUT ×3 (08:49→19:48)
[2023-09-25] MEDS: Acetaminophen 325 MG TABLET 650 MG PO ×2 (08:50→19:46)
[2023-09-25] MEDS: Gabapentin 100 MG CAPSULE PO ×2 (08:53→19:46)
[2023-09-25] MEDS: ARIPiprazole 5 MG TABLET 2.5 MG PO (08:53)
[2023-09-25] MEDS: Fludrocortisone Acetate 0.1 MG TABLET PO (08:53)
[2023-09-25] MEDS: 0.9 % Sodium Chloride Flush 3 ML SYRINGE IVFLUSH (08:53)
[2023-09-25] MEDS: Lidocaine 4 % Patch ADH..PATCH 1 PATCH TRANSDERMA (08:54)
[2023-09-25] MEDS: polyethylene glycoL 3350 17 GM POWD.PACK PO (08:55)
[2023-09-25] MEDS: Fluticasone Propionate Nasal 16 GM SPRAY 2 SPRAY NOSTRIL-B (08:55)
--- NOTE | 2023-09-25 11:29 | P.PNIM_ITS ---
Subjective Subjective Date of Service: 09/25/23 Interval History: Being followed for placement, offers no acute complaints. Tolerating diet no nausea, no vomiting or diarrhea, had hemodialysis on 09/23, trying to do [id number] exercises. Review of Systems All other system reviewed and are negative. Physical Exam 2 Vital Signs: Vital Signs: Last Vital Signs Temp 97.0 F 09/25/23 07:52 Pulse 99 09/25/23 07:52 Resp 16 09/25/23 07:52 BP 109/70 09/25/23 07:52 Pulse Ox 96 09/25/23 07:52 O2 Del Method Room Air 09/25/23 07:52 O2 Flow Rate 2 09/17/23 12:00 BMI result Body Mass Index 49.2 Const: Other: General awake alert in no distress anicteric sclera Neck no JVD. CVS regular rate rhythm, Respiratory lungs clear to auscultation, no respiratory distress, no wheeze, no rhonchi. Gastrointestinal abdomen soft, non tender, bowel sounds audible. Extremities no edema. Neuro non focal, speech clear. Skin no rash Psych appropriate affect Objective Data Active Medications Acetaminophen (Acetaminophen 325 Mg Tablet) 650 mg PO Q4H PRN PRN Reason: Pain, Moderate(Pain Scale 4-6) Last Admin: 09/25/23 08:50 Dose: 650 mg Documented By: MIKE Aripiprazole (Aripiprazole 5 Mg Tablet) 2.5 mg PO DAILY [facility] Last Admin: 09/25/23 08:53 Dose: 2.5 mg Documented By: MIKE Fludrocortisone Acetate (Fludrocortisone Acetate 0.1 Mg Tablet) 0.1 mg PO DAILY [facility] Last Admin: 09/25/23 08:53 Dose: 0.1 mg Documented By: MIKE Fluticasone Propionate (Fluticasone Propionate Nasal 16 Gm [place]) 2 spray NOSTRIL-B DAILY [facility] Last Admin: 09/25/23 08:55 Dose: 2 spray Documented By: MIKE Gabapentin (Gabapentin 100 Mg Capsule) 100 mg PO BID [facility] Last Admin: 09/25/23 08:53 Dose: 100 mg Documented By: MIKE Heparin Sodium (Porcine) (Heparin Sodium,Porcine 5,000 Unit/Ml Vial) 5,000 unit SUBCUT TID [facility] Last Admin: 09/25/23 08:49 Dose: 5,000 unit Documented By: MIKE Heparin Sodium (Porcine) (Heparin Sodium,Porcine 1,000 Unit/Ml Vial) 4,000 unit IV MOWEFR [facility] Last Admin: 09/24/23 13:41 Dose: Not Given Documented By: ANTON Non-Admin Reason: dialysis order Hydrocortisone (Hydrocortisone 1 % Cream 28.35 Gm Tube) 1 appl TOPICAL DAILY [facility]; Protocol Last Admin: 09/25/23 09:10 Dose: Not Given Documented By: MIKE Non-Admin Reason: Patient Refused Dextrose (D10) 250 mls @ 750 mls/hr IV Q15M PRN PRN Reason: per Hypoglycemia Standing Ord. Lidocaine (Lidocaine 4 % Patch Adh..Patch) 1 patch TRANSDERMA DAILY [facility] Last Admin: 09/25/23 08:54 Dose: 1 patch Documented By: MIKE Midodrine (Midodrine Hcl 10 Mg Tablet) 10 mg PO TIDWM [facility] Last Admin: 09/25/23 08:49 Dose: 10 mg Documented By: MIKE Multi-Ingred Cream/Lotion/Oil/Oint (Mineral Oil/Petrolatum,White 106 Gm Tube) 1 appl TOPICAL BID [facility]; Protocol Last Admin: 09/25/23 09:10 Dose: Not Given Documented By: MIKE Non-Admin Reason: Patient Refused Nystatin (Nystatin Powder 15 Gm Bottle) 1 appl TOPICAL BID [facility]; Protocol Last Admin: 09/25/23 09:10 Dose: Not Given Documented By: MIKE Non-Admin Reason: Patient Refused Ondansetron HCl (Ondansetron Odt 4 Mg Tab.Rapdis) 4 mg TRANSLINGU Q6H PRN PRN Reason: Nausea and Vomiting Polyethylene Glycol (Polyethylene Glycol 3350 17 Gm Powd.Pack) 17 gm PO DAILY [facility] Last Admin: 09/25/23 08:55 Dose: 17 gm Documented By: MIKE Sertraline HCl (Sertraline Hcl 25 Mg Tablet) 12.5 mg PO BEDTIME [facility] Last Admin: 09/24/23 19:54 Dose: 12.5 mg Documented By: TOYA Sodium Chloride (0.9 % Sodium Chloride Flush 3 Ml Syringe) 3 ml IVFLUSH QSHIFT [facility] Last Admin: 09/25/23 08:53 Dose: 3 ml Documented By: MIKE Trazodone HCl (Trazodone Hcl 25 Mg Halftab) 25 mg PO BEDTIME [facility] Last Admin: 09/24/23 19:55 Dose: 25 mg Documented By: ZELALEMRISSofya Labs 09/24/23 05:40 09/14/23 05:31 Assessment and Plan (1) ESRD needing dialysis: Status: Acute Plan 53 years old male with PMH of DM2, HTN, Asthma who presented to ED After sustaining a fall and laying on the floor for 9 hours found to have severe acute kidney injury from rhabdomyolysis and hyperkalemia 1.CHITO and severe hyperkalemia and acute metabolic acidosis due to ATN from rhabdomyolysis and no renal recovery and started on HD, TTS, -permacath placed 07/16/23. -receiving dialysis MWF -follow renals/divalents -stable and well compensated at this time 2.Chronic Leg and back pain Stable, continue gabapentin 100mg BID 3.Depression. unspecified -No behavioral issues, seen by psychiatry 08/23, they recommended decrease dose of Abilify to 2.5 mg daily ,since it can cause orthostasis, decrease dose of trazodone to 25 mg at bedtime and Zoloft low-dose added -continue to encourage participation in PT /patient tolerating current medications, BP stable 4.Acute?Rhabdomyolysis -resolved with volume -follow clinically 5.Diabetes type 2 -stable blood sugars, last hemoglobin A1c 6.1 ,12/28/2022. 6.Morbid Obesity. BMI 49.2 Low-calorie diet/ weight management . Heparin Full code reason for continued hospitalization: debilitated / depressed, safe discharge to short-term rehab. Quality Stroke Does the patient have a stroke diagnosis?: No VTE Prior VTE?: No VTE Risk Level:: Medical - moderate - high VTE Device Contraindication: N/A - Device Ordered VTE Drug Contraindication: N/A - Med Ordered
[2023-09-25 15:28] VITALS: BP 113/60; PULSE 95; RESP 18; TEMP 36.6; O2SAT 97
--- NOTE | 2023-09-25 15:44 | PC.NURSE ---
IV due to be changed today per policy. IV removed. Dr. Giron made aware and discontinued IV access at this time.
[2023-09-25] MEDS: Sertraline HCL 25 MG TABLET 12.5 MG PO (19:46)
[2023-09-25] MEDS: traZODone HCL 25 MG HALFTAB PO (19:46)
[2023-09-25 23:19] VITALS: BP 118/64; PULSE 67; RESP 18; TEMP 36.3; O2SAT 98
[2023-09-26 06:53] VITALS: BP 129/81; PULSE 96; RESP 17; TEMP 36.7; O2SAT 97
[2023-09-26] MEDS: Lidocaine 4 % Patch ADH..PATCH 1 PATCH TRANSDERMA (08:22)
[2023-09-26] MEDS: Fluticasone Propionate Nasal 16 GM SPRAY 2 SPRAY NOSTRIL-B (08:22)
[2023-09-26] MEDS: Heparin Sodium,Porcine 5,000 UNIT/ML VIAL 5000 UNIT SUBCUT ×3 (08:23→19:41)
[2023-09-26] MEDS: Fludrocortisone Acetate 0.1 MG TABLET PO (08:23)
[2023-09-26] MEDS: Midodrine HCl 10 MG TABLET PO ×3 (08:23→16:25)
[2023-09-26] MEDS: Gabapentin 100 MG CAPSULE PO ×2 (08:23→19:41)
[2023-09-26] MEDS: ARIPiprazole 5 MG TABLET 2.5 MG PO (08:24)
[2023-09-26] MEDS: Acetaminophen 325 MG TABLET 650 MG PO (08:24)
--- NOTE | 2023-09-26 09:31 | P.PNIM_ITS ---
Subjective Subjective Date of Service: 09/26/23 Interval History: Being followed for placement, No acute issues overnight, tolerating diet, doing [id number] exercises. Review of Systems All other system reviewed and negative. Physical Exam 2 Vital Signs: Vital Signs: Last Vital Signs Temp 98.1 F 09/26/23 06:53 Pulse 96 09/26/23 06:53 Resp 17 09/26/23 06:53 BP 129/81 09/26/23 06:53 Pulse Ox 97 09/26/23 06:53 O2 Del Method Room Air 09/26/23 06:53 O2 Flow Rate 2 09/17/23 12:00 BMI result Body Mass Index 49.2 Const: Other: General awake alert in no distress anicteric sclera Neck no JVD. CVS regular rate rhythm, Respiratory lungs clear to auscultation, no respiratory distress, no wheeze, no rhonchi. Gastrointestinal abdomen soft, non tender, bowel sounds audible. Extremities no edema. Right shoulder limited range of motion. Neuro non focal, speech clear. Skin no rash Psych appropriate affect Objective Data Active Medications Acetaminophen (Acetaminophen 325 Mg Tablet) 650 mg PO Q4H PRN PRN Reason: Pain, Moderate(Pain Scale 4-6) Last Admin: 09/26/23 08:24 Dose: 650 mg Documented By: MIKE Aripiprazole (Aripiprazole 5 Mg Tablet) 2.5 mg PO DAILY [facility] Last Admin: 09/26/23 08:24 Dose: 2.5 mg Documented By: MIKE Fludrocortisone Acetate (Fludrocortisone Acetate 0.1 Mg Tablet) 0.1 mg PO DAILY [facility] Last Admin: 09/26/23 08:23 Dose: 0.1 mg Documented By: MIKE Fluticasone Propionate (Fluticasone Propionate Nasal 16 Gm [place]) 2 spray NOSTRIL-B DAILY [facility] Last Admin: 09/26/23 08:22 Dose: 2 spray Documented By: MIKE Gabapentin (Gabapentin 100 Mg Capsule) 100 mg PO BID [facility] Last Admin: 09/26/23 08:23 Dose: 100 mg Documented By: MIKE Heparin Sodium (Porcine) (Heparin Sodium,Porcine 5,000 Unit/Ml Vial) 5,000 unit SUBCUT TID [facility] Last Admin: 09/26/23 08:23 Dose: 5,000 unit Documented By: MIKE Heparin Sodium (Porcine) (Heparin Sodium,Porcine 1,000 Unit/Ml Vial) 4,000 unit IV MOWEFR [facility] Last Admin: 09/24/23 13:41 Dose: Not Given Documented By: ANTON Non-Admin Reason: dialysis order Hydrocortisone (Hydrocortisone 1 % Cream 28.35 Gm Tube) 1 appl TOPICAL DAILY [facility]; Protocol Last Admin: 09/26/23 08:28 Dose: Not Given Documented By: MIKE Non-Admin Reason: Patient Refused Dextrose (D10) 250 mls @ 750 mls/hr IV Q15M PRN PRN Reason: per Hypoglycemia Standing Ord. Lidocaine (Lidocaine 4 % Patch Adh..Patch) 1 patch TRANSDERMA DAILY [facility] Last Admin: 09/26/23 08:22 Dose: 1 patch Documented By: MIKE Midodrine (Midodrine Hcl 10 Mg Tablet) 10 mg PO TIDWM [facility] Last Admin: 09/26/23 08:23 Dose: 10 mg Documented By: MIKE Multi-Ingred Cream/Lotion/Oil/Oint (Mineral Oil/Petrolatum,White 106 Gm Tube) 1 appl TOPICAL BID [facility]; Protocol Last Admin: 09/26/23 08:28 Dose: Not Given Documented By: MIKE Non-Admin Reason: Patient Refused Nystatin (Nystatin Powder 15 Gm Bottle) 1 appl TOPICAL BID [facility]; Protocol Last Admin: 09/26/23 08:29 Dose: Not Given Documented By: MIKE Non-Admin Reason: Patient Refused Ondansetron HCl (Ondansetron Odt 4 Mg Tab.Rapdis) 4 mg TRANSLINGU Q6H PRN PRN Reason: Nausea and Vomiting Polyethylene Glycol (Polyethylene Glycol 3350 17 Gm Powd.Pack) 17 gm PO DAILY [facility] Last Admin: 09/26/23 08:29 Dose: Not Given Documented By: MIKE Non-Admin Reason: Patient Refused Sertraline HCl (Sertraline Hcl 25 Mg Tablet) 12.5 mg PO BEDTIME [facility] Last Admin: 09/25/23 19:46 Dose: 12.5 mg Documented By: MIKAL Sodium Chloride (0.9 % Sodium Chloride Flush 3 Ml Syringe) 3 ml IVFLUSH QSHIFT [facility] Last Admin: 09/26/23 08:24 Dose: Not Given Documented By: MIKE Non-Admin Reason: No Access Trazodone HCl (Trazodone Hcl 25 Mg Halftab) 25 mg PO BEDTIME [facility] Last Admin: 09/25/23 19:46 Dose: 25 mg Documented By: MIKAL Labs 09/24/23 05:40 09/14/23 05:31 Assessment and Plan (1) ESRD needing dialysis: Status: Acute Plan 53 years old male with PMH of DM2, HTN, Asthma who presented to ED After sustaining a fall and laying on the floor for 9 hours found to have severe acute kidney injury from rhabdomyolysis and hyperkalemia 1.CHITO and severe hyperkalemia and acute metabolic acidosis due to ATN from rhabdomyolysis and no renal recovery and started on HD, TTS, -permacath placed 07/16/23. -receiving dialysis MWF -stable and well compensated at this time -check bmp on 09/26 2.Chronic Leg and back pain Stable, continue gabapentin 100mg BID 3.Depression. unspecified -No behavioral issues, seen by psychiatry 08/23,on Abilify 2.5 mg daily low-dose since it can cause orthostasis, trazodone 25 mg at bedtime and Zoloft low-dose . -continue to encourage participation in PT /patient tolerating current medications, BP stable 4.Acute?Rhabdomyolysis -resolved with volume -follow clinically 5.Diabetes type 2 -stable blood sugars, last hemoglobin A1c 6.1 ,12/28/2022. 6.Morbid Obesity. BMI 49.2 Low-calorie diet/ weight management . Heparin Full code reason for continued hospitalization: debilitated / depressed, safe discharge to short-term rehab. Quality Stroke Does the patient have a stroke diagnosis?: No VTE Prior VTE?: No VTE Risk Level:: Medical - moderate - high VTE Device Contraindication: N/A - Device Ordered VTE Drug Contraindication: N/A - Med Ordered
[2023-09-26 15:36] VITALS: BP 101/70; PULSE 89; RESP 18; TEMP 36.6; O2SAT 97
[2023-09-26] MEDS: traZODone HCL 25 MG HALFTAB PO (19:40)
[2023-09-26] MEDS: Sertraline HCL 25 MG TABLET 12.5 MG PO (19:40)
[2023-09-26 23:21] VITALS: BP 117/65; PULSE 87; RESP 16; TEMP 36.2; O2SAT 97
[2023-09-27 07:28] VITALS: BP 101/60; PULSE 99; RESP 18; TEMP 36.1; O2SAT 95
[2023-09-27 09:18] LABS: Anion Gap 20 (12-20); Blood Urea Nitrogen 47 mg/dL (9-16); Calcium 10.3 mg/dL (8.4-10.2); Carbon Dioxide 17 mmol/L (22-29); Chloride 102 mmol/L (96-108); Creatinine Clr Calc Pharmacy 13.7; Estimated Glomerular Filt Rate 6; Glucose Random 117 mg/dL (60-115); Potassium 4.4 mmol/L (3.3-5.1); Sodium 135 mmol/L (135-145)
--- NOTE | 2023-09-27 10:27 | P.PNIM_ITS ---
Subjective Subjective Date of Service: 09/27/23 Interval History: Being followed for placement, No acute issues overnight, tolerating diet, doing [id number] exercises. Review of Systems All other system reviewed and are negative Physical Exam 2 Vital Signs: Vital Signs: Last Vital Signs Temp 97.0 F 09/27/23 07:28 Pulse 99 09/27/23 07:28 Resp 18 09/27/23 07:28 BP 101/60 09/27/23 07:28 Pulse Ox 95 09/27/23 07:28 O2 Del Method Room Air 09/27/23 07:28 O2 Flow Rate 2 09/17/23 12:00 BMI result Body Mass Index 49.2 Const: Other: General awake alert in no distress anicteric sclera Neck no JVD. CVS regular rate rhythm, Respiratory lungs clear to auscultation, no respiratory distress, no wheeze, no rhonchi. Gastrointestinal abdomen soft, non tender, bowel sounds audible. Extremities no edema. Right shoulder limited range of motion. Neuro non focal, speech clear. Skin no rash Psych appropriate affect Objective Data Active Medications Acetaminophen (Acetaminophen 325 Mg Tablet) 650 mg PO Q4H PRN PRN Reason: Pain, Moderate(Pain Scale 4-6) Last Admin: 09/26/23 08:24 Dose: 650 mg Documented By: MIKE Aripiprazole (Aripiprazole 5 Mg Tablet) 2.5 mg PO DAILY [facility] Last Admin: 09/26/23 08:24 Dose: 2.5 mg Documented By: MIKE Fludrocortisone Acetate (Fludrocortisone Acetate 0.1 Mg Tablet) 0.1 mg PO DAILY [facility] Last Admin: 09/26/23 08:23 Dose: 0.1 mg Documented By: MIKE Fluticasone Propionate (Fluticasone Propionate Nasal 16 Gm [place]) 2 spray NOSTRIL-B DAILY [facility] Last Admin: 09/26/23 08:22 Dose: 2 spray Documented By: MIKE Gabapentin (Gabapentin 100 Mg Capsule) 100 mg PO BID [facility] Last Admin: 09/26/23 19:41 Dose: 100 mg Documented By: JOSE LUIS Heparin Sodium (Porcine) (Heparin Sodium,Porcine 5,000 Unit/Ml Vial) 5,000 unit SUBCUT TID [facility] Last Admin: 08/18/24 19:41 Dose: 5,000 unit Documented By: JOSE LUIS Heparin Sodium (Porcine) (Heparin Sodium,Porcine 1,000 Unit/Ml Vial) 4,000 unit IV MOWEFR [facility] Last Admin: 09/24/23 13:41 Dose: Not Given Documented By: ANTON Non-Admin Reason: dialysis order Dextrose (D10) 250 mls @ 750 mls/hr IV Q15M PRN PRN Reason: per Hypoglycemia Standing Ord. Lidocaine (Lidocaine 4 % Patch Adh..Patch) 1 patch TRANSDERMA DAILY [facility] Last Admin: 09/26/23 08:22 Dose: 1 patch Documented By: MIKE Midodrine (Midodrine Hcl 10 Mg Tablet) 10 mg PO TIDWM [facility] Last Admin: 09/27/23 10:11 Dose: Not Given Documented By: OPHELIA Non-Admin Reason: Off unit: Dialysis Multi-Ingred Cream/Lotion/Oil/Oint (Mineral Oil/Petrolatum,White 106 Gm Tube) 1 appl TOPICAL BID [facility]; Protocol Last Admin: 09/26/23 19:41 Dose: Not Given Documented By: JOSE LUIS Non-Admin Reason: Patient Refused Ondansetron HCl (Ondansetron Odt 4 Mg Tab.Rapdis) 4 mg TRANSLINGU Q6H PRN PRN Reason: Nausea and Vomiting Polyethylene Glycol (Polyethylene Glycol 3350 17 Gm Powd.Pack) 17 gm PO DAILY [facility] Last Admin: 09/26/23 08:29 Dose: Not Given Documented By: MIKE Non-Admin Reason: Patient Refused Sertraline HCl (Sertraline Hcl 25 Mg Tablet) 12.5 mg PO BEDTIME [facility] Last Admin: 09/26/23 19:40 Dose: 12.5 mg Documented By: JOSE LUIS Trazodone HCl (Trazodone Hcl 25 Mg Halftab) 25 mg PO BEDTIME [facility] Last Admin: 09/26/23 19:40 Dose: 25 mg Documented By: JOSE LUIS Labs 09/24/23 05:40 09/27/23 08:02 Labs: Laboratory Results - last 24 hr 09/27/23 08:02 Anion Gap 20 Estim Creat Clear Calc 13.7 Estimated GFR 6 Random Glucose 117 H Calcium 10.3 H Assessment and Plan (1) ESRD needing dialysis: Status: Acute Plan 53 years old male with PMH of DM2, HTN, Asthma who presented to ED After sustaining a fall and laying on the floor for 9 hours found to have severe acute kidney injury from rhabdomyolysis and hyperkalemia 1.CHITO and severe hyperkalemia and acute metabolic acidosis due to ATN from rhabdomyolysis and no renal recovery and started on HD, TTS, -permacath placed 07/16/23. -receiving dialysis MWF -stable and well compensated at this time -bmp on 09/26 showed bicarb 17, creatinine 8.84 2.Chronic Leg and back pain Stable, continue gabapentin 100mg BID 3.Depression. unspecified -No behavioral issues, seen by psychiatry 08/23,on Abilify 2.5 mg daily low-dose since it can cause orthostasis, trazodone 25 mg at bedtime and Zoloft low-dose . -continue to encourage participation in PT /patient tolerating current medications, BP stable 4.Acute?Rhabdomyolysis -resolved with volume -follow clinically 5.Diabetes type 2 -stable blood sugars, last hemoglobin A1c 6.1 ,12/28/2022. 6.Morbid Obesity. BMI 49.2 Low-calorie diet/ weight management . Heparin Full code reason for continued hospitalization: debilitated / depressed, safe discharge to short-term rehab. Quality Stroke Does the patient have a stroke diagnosis?: No VTE Prior VTE?: No VTE Risk Level:: Medical - moderate - high VTE Device Contraindication: N/A - Device Ordered VTE Drug Contraindication: N/A - Med Ordered
--- NOTE | 2023-09-27 10:34 | P.PNNP_ITS ---
Subjective Subjective Date of Service: 09/27/23 Principal diagnosis: Elevated troponins Interval history: Seen on HD. Has been having issues with HD catheter flows. No acute issues overnight; D/W HD RN Physical Exam 2 Vital Signs: Vital Signs: Last Vital Signs Temp 97.0 F 09/27/23 07:28 Pulse 99 09/27/23 07:28 Resp 18 09/27/23 07:28 BP 101/60 09/27/23 07:28 Pulse Ox 95 09/27/23 07:28 O2 Del Method Room Air 09/27/23 07:28 O2 Flow Rate 2 09/17/23 12:00 BMI result Body Mass Index 49.2 Const: General: no acute distress Orientation/consciousness: patient oriented x3 Eyes: EOM: EOMs intact bilaterally Neck: Neck: Yes supple Resp: Auscultation: diminished lung sounds Cardio: Rate: regular rate GI: Palpation (GI): Soft to palpation Neuro: General: patient oriented x3 and moves all extremities Objective Data Labs 09/24/23 05:40 09/27/23 08:02 Labs: Laboratory Results - last 24 hr 09/27/23 08:02 Sodium 135 Potassium 4.4 Chloride 102 Carbon Dioxide 17 L Anion Gap 20 BUN 47 H Creatinine 8.84 H* Estim Creat Clear Calc 13.7 Estimated GFR 6 Random Glucose 117 H Calcium 10.3 H Microbiology Microbiology Results: Microbiology 07/20/23 22:49 Blood - Venous Blood Culture - Final No growth after 5 days. 07/20/23 22:49 Blood - Venous Blood Culture - Final No growth after 5 days. 07/12/23 12:30 Blood - Venous Blood Culture - Final No growth after 5 days. 07/12/23 12:15 Blood - Venous Blood Culture - Final No growth after 5 days. 07/12/23 Unknown Urine Catheterized - Straight Catheter Urine Culture - Final No growth. 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 C/W Florinef 0.1 mg daily; May have to change Permcath if he continues to have blood flow issues C/W rest of current management Progress Note: Quality Stroke Does the patient have a stroke diagnosis?: No
[2023-09-27 14:42] VITALS: BP 103/63; PULSE 71; RESP 16; TEMP 36.1; O2SAT 98
[2023-09-27] MEDS: ARIPiprazole 5 MG TABLET 2.5 MG PO (14:44)
[2023-09-27] MEDS: Fludrocortisone Acetate 0.1 MG TABLET PO (14:44)
[2023-09-27] MEDS: Heparin Sodium,Porcine 5,000 UNIT/ML VIAL 5000 UNIT SUBCUT ×2 (14:45→22:02)
[2023-09-27] MEDS: Midodrine HCl 10 MG TABLET PO (14:45)
[2023-09-27] MEDS: Lidocaine 4 % Patch ADH..PATCH 1 PATCH TRANSDERMA (14:46)
[2023-09-27] MEDS: Acetaminophen 325 MG TABLET 650 MG PO (17:06)
[2023-09-27] MEDS: traZODone HCL 25 MG HALFTAB PO (22:01)
[2023-09-27] MEDS: Gabapentin 100 MG CAPSULE PO (22:02)
[2023-09-27] MEDS: Sertraline HCL 25 MG TABLET 12.5 MG PO (22:02)
[2023-09-27 23:30] VITALS: BP 108/62; PULSE 107; RESP 16; TEMP 36.6; O2SAT 98
[2023-09-28 07:32] VITALS: BP 105/71; PULSE 98; RESP 16; TEMP 36.3; O2SAT 96
--- NOTE | 2023-09-28 10:42 | HO.PM.IMPN ---
Subjective Subjective Date of Service: 09/28/23 Interval History: Being followed for placement, no acute complaints. Participating with PT, no acute issues overnight. Review of Systems All other system reviewed and are negative. Physical Exam Vital Signs: Vital Signs: Last Vital Signs Temp 97.4 F 09/28/23 07:32 Pulse 98 09/28/23 07:32 Resp 16 09/28/23 07:32 BP 105/71 09/28/23 07:32 Pulse Ox 96 09/28/23 07:32 O2 Del Method Room Air 09/28/23 07:32 O2 Flow Rate 2 09/17/23 12:00 BMI result Body Mass Index 49.2 Const: Other: General awake alert in no distress anicteric sclera Neck no JVD. CVS regular rate rhythm, Respiratory lungs clear to auscultation, no respiratory distress, no wheeze, no rhonchi. Gastrointestinal abdomen soft, non tender, bowel sounds audible. Extremities no edema. Right shoulder limited range of motion. Neuro non focal, speech clear. Skin no rash Psych appropriate affect Objective Data Active Medications Acetaminophen (Acetaminophen 325 Mg Tablet) 650 mg PO Q4H PRN PRN Reason: Pain, Moderate(Pain Scale 4-6) Last Admin: 09/27/23 17:06 Dose: 650 mg Documented By: OPHELIA Aripiprazole (Aripiprazole 5 Mg Tablet) 2.5 mg PO DAILY [facility] Last Admin: 09/27/23 14:44 Dose: 2.5 mg Documented By: OPHELIA Comments: was in dialysis Fludrocortisone Acetate (Fludrocortisone Acetate 0.1 Mg Tablet) 0.1 mg PO DAILY [facility] Last Admin: 09/27/23 14:44 Dose: 0.1 mg Documented By: OPHELIA Comments: was in dialysis Fluticasone Propionate (Fluticasone Propionate Nasal 16 Gm [place]) 2 spray NOSTRIL-B DAILY [facility] Last Admin: 09/27/23 14:46 Dose: Not Given Documented By: OPHELIA Non-Admin Reason: Patient Refused Gabapentin (Gabapentin 100 Mg Capsule) 100 mg PO BID [facility] Last Admin: 09/27/23 22:02 Dose: 100 mg Documented By: CARLOTTA Heparin Sodium (Porcine) (Heparin Sodium,Porcine 5,000 Unit/Ml Vial) 5,000 unit SUBCUT TID [facility] Last Admin: 09/27/23 22:02 Dose: 5,000 unit Documented By: CARLOTTA Heparin Sodium (Porcine) (Heparin Sodium,Porcine 1,000 Unit/Ml Vial) 4,000 unit IV MOWEFR [facility] Last Admin: 09/27/23 14:47 Dose: Not Given Documented By: OPHELIA Non-Admin Reason: given in dialysis Dextrose (D10) 250 mls @ 750 mls/hr IV Q15M PRN PRN Reason: per Hypoglycemia Standing Ord. Lidocaine (Lidocaine 4 % Patch Adh..Patch) 1 patch TRANSDERMA DAILY [facility] Last Admin: 09/27/23 14:46 Dose: 1 patch Documented By: OPHELIA Comments: was in dialysis Midodrine (Midodrine Hcl 10 Mg Tablet) 10 mg PO TIDWM [facility] Last Admin: 09/27/23 16:30 Dose: Not Given Documented By: OPHELIA Non-Admin Reason: last dose given late due to dialysis Multi-Ingred Cream/Lotion/Oil/Oint (Mineral Oil/Petrolatum,White 106 Gm Tube) 1 appl TOPICAL BID [facility]; Protocol Last Admin: 09/27/23 22:06 Dose: Not Given Documented By: CARLOTTA Non-Admin Reason: Patient Refused Ondansetron HCl (Ondansetron Odt 4 Mg Tab.Rapdis) 4 mg TRANSLINGU Q6H PRN PRN Reason: Nausea and Vomiting Polyethylene Glycol (Polyethylene Glycol 3350 17 Gm Powd.Pack) 17 gm PO DAILY [facility] Last Admin: 09/27/23 14:47 Dose: Not Given Documented By: OPHELIA Non-Admin Reason: Patient Refused Sertraline HCl (Sertraline Hcl 25 Mg Tablet) 12.5 mg PO BEDTIME [facility] Last Admin: 09/27/23 22:02 Dose: 12.5 mg Documented By: CARLOTTA Trazodone HCl (Trazodone Hcl 25 Mg Halftab) 25 mg PO BEDTIME [facility] Last Admin: 09/27/23 22:01 Dose: 25 mg Documented By: CARLOTTA Labs 09/24/23 05:40 09/27/23 08:02 Assessment and Plan (1) ESRD needing dialysis: Status: Acute Plan 53 years old male with PMH of DM2, HTN, Asthma who presented to ED After sustaining a fall and laying on the floor for 9 hours found to have severe acute kidney injury from rhabdomyolysis and hyperkalemia 1.CHITO and severe hyperkalemia and acute metabolic acidosis due to ATN from rhabdomyolysis and no renal recovery and started on HD, TTS, -permacath placed 07/16/23. -receiving dialysis MWF -stable and well compensated at this time -bmp on 09/26 showed bicarb 17, creatinine 8.84, being followed by Nephrology. 2.Chronic Leg and back pain Stable, continue gabapentin 100mg BID 3.Depression. unspecified -No behavioral issues, seen by psychiatry 08/23,on Abilify 2.5 mg daily low-dose since it can cause orthostasis, trazodone 25 mg at bedtime and Zoloft low-dose . -continue to encourage participation in PT /patient tolerating current medications, BP stable 4.Acute?Rhabdomyolysis -resolved with volume -follow clinically 5.Diabetes type 2 -stable blood sugars, last hemoglobin A1c 6.1 ,12/28/2022. 6.Morbid Obesity. BMI 49.2 Low-calorie diet/ weight management . Heparin Full code reason for continued hospitalization: debilitated / depressed, safe discharge to short-term rehab. Quality Stroke Does the patient have a stroke diagnosis?: No VTE Prior VTE?: No VTE Risk Level:: Medical - moderate - high VTE Device Contraindication: N/A - Device Ordered VTE Drug Contraindication: N/A - Med Ordered
[2023-09-28] MEDS: ARIPiprazole 5 MG TABLET 2.5 MG PO (10:46)
[2023-09-28] MEDS: polyethylene glycoL 3350 17 GM POWD.PACK PO (10:47)
[2023-09-28] MEDS: Midodrine HCl 10 MG TABLET PO ×2 (10:47→16:11)
[2023-09-28] MEDS: Lidocaine 4 % Patch ADH..PATCH 1 PATCH TRANSDERMA (10:47)
[2023-09-28] MEDS: Gabapentin 100 MG CAPSULE PO ×2 (10:47→21:52)
[2023-09-28] MEDS: Acetaminophen 325 MG TABLET 650 MG PO (10:47)
[2023-09-28] MEDS: Fludrocortisone Acetate 0.1 MG TABLET PO (10:47)
[2023-09-28] MEDS: Heparin Sodium,Porcine 5,000 UNIT/ML VIAL 5000 UNIT SUBCUT ×3 (10:48→21:53)
[2023-09-28] MEDS: Fluticasone Propionate Nasal 16 GM SPRAY 2 SPRAY NOSTRIL-B (10:48)
[2023-09-28 15:53] VITALS: BP 112/69; PULSE 92; RESP 16; TEMP 36.1; O2SAT 98
[2023-09-28] MEDS: Sertraline HCL 25 MG TABLET 12.5 MG PO (21:52)
[2023-09-28] MEDS: traZODone HCL 25 MG HALFTAB PO (21:52)
[2023-09-28 23:18] VITALS: BP 108/71; PULSE 101; RESP 18; TEMP 36.2; O2SAT 98
[2023-09-29 06:56] VITALS: BP 119/57; PULSE 101; RESP 16; TEMP 36.6; O2SAT 98
[2023-09-29] MEDS: Fluticasone Propionate Nasal 16 GM SPRAY 2 SPRAY NOSTRIL-B (08:17)
--- NOTE | 2023-09-29 11:03 | HO.PM.IMPN ---
Subjective Subjective Date of Service: 09/29/23 Interval History: Being followed for placement. No acute events overnight, tolerating diet ,doing [id number] exercises for right upper extremity weakness. Review of Systems All other system reviewed and are negative. Physical Exam Vital Signs: Vital Signs: Last Vital Signs Temp 98 F 09/29/23 06:56 Pulse 101 H 09/29/23 06:56 Resp 16 09/29/23 06:56 BP 119/57 L 09/29/23 06:56 Pulse Ox 98 09/29/23 06:56 O2 Del Method Room Air 09/29/23 06:56 O2 Flow Rate 2 09/17/23 12:00 BMI result Body Mass Index 49.2 Const: Other: General awake alert in no distress anicteric sclera Neck no JVD. CVS regular rate rhythm, Respiratory lungs clear to auscultation, no respiratory distress, no wheeze, no rhonchi. Gastrointestinal abdomen soft, non tender, bowel sounds audible. Extremities no edema. Right shoulder limited range of motion. Neuro non focal, speech clear. Skin no rash Psych appropriate affect Objective Data Active Medications Acetaminophen (Acetaminophen 325 Mg Tablet) 650 mg PO Q4H PRN PRN Reason: Pain, Moderate(Pain Scale 4-6) Last Admin: 09/28/23 10:47 Dose: 650 mg Documented By: OPHELIA Aripiprazole (Aripiprazole 5 Mg Tablet) 2.5 mg PO DAILY [facility] Last Admin: 09/28/23 10:46 Dose: 2.5 mg Documented By: OPHELIA Fludrocortisone Acetate (Fludrocortisone Acetate 0.1 Mg Tablet) 0.1 mg PO DAILY [facility] Last Admin: 09/28/23 10:47 Dose: 0.1 mg Documented By: OPHELIA Fluticasone Propionate (Fluticasone Propionate Nasal 16 Gm [place]) 2 spray NOSTRIL-B DAILY [facility] Last Admin: 09/29/23 08:17 Dose: 2 spray Documented By: MONICA Gabapentin (Gabapentin 100 Mg Capsule) 100 mg PO BID [facility] Last Admin: 09/28/23 21:52 Dose: 100 mg Documented By: CARLOTTA Heparin Sodium (Porcine) (Heparin Sodium,Porcine 5,000 Unit/Ml Vial) 5,000 unit SUBCUT TID [facility] Last Admin: 09/28/23 21:53 Dose: 5,000 unit Documented By: CARLOTTA Heparin Sodium (Porcine) (Heparin Sodium,Porcine 1,000 Unit/Ml Vial) 4,000 unit IV MOWEFR [facility] Last Admin: 09/27/23 14:47 Dose: Not Given Documented By: OPHELIA Non-Admin Reason: given in dialysis Dextrose (D10) 250 mls @ 750 mls/hr IV Q15M PRN PRN Reason: per Hypoglycemia Standing Ord. Lidocaine (Lidocaine 4 % Patch Adh..Patch) 1 patch TRANSDERMA DAILY [facility] Last Admin: 09/28/23 10:47 Dose: 1 patch Documented By: OPHELIA Midodrine (Midodrine Hcl 10 Mg Tablet) 10 mg PO TIDWM [facility] Last Admin: 09/28/23 16:11 Dose: 10 mg Documented By: OPHELIA Multi-Ingred Cream/Lotion/Oil/Oint (Mineral Oil/Petrolatum,White 106 Gm Tube) 1 appl TOPICAL BID [facility]; Protocol Last Admin: 09/28/23 21:56 Dose: Not Given Documented By: CARLOTTA Non-Admin Reason: Patient Refused Ondansetron HCl (Ondansetron Odt 4 Mg Tab.Rapdis) 4 mg TRANSLINGU Q6H PRN PRN Reason: Nausea and Vomiting Polyethylene Glycol (Polyethylene Glycol 3350 17 Gm Powd.Pack) 17 gm PO DAILY [facility] Last Admin: 09/28/23 10:47 Dose: 17 gm Documented By: OPHELIA Sertraline HCl (Sertraline Hcl 25 Mg Tablet) 12.5 mg PO BEDTIME [facility] Last Admin: 09/28/23 21:52 Dose: 12.5 mg Documented By: CARLOTTA Trazodone HCl (Trazodone Hcl 25 Mg Halftab) 25 mg PO BEDTIME [facility] Last Admin: 09/28/23 21:52 Dose: 25 mg Documented By: CARLOTTA Labs 09/24/23 05:40 09/27/23 08:02 Assessment and Plan (1) ESRD needing dialysis: Status: Acute Plan 53 years old male with PMH of DM2, HTN, Asthma who presented to ED After sustaining a fall and laying on the floor for 9 hours found to have severe acute kidney injury from rhabdomyolysis and hyperkalemia 1.CHITO and severe hyperkalemia and acute metabolic acidosis due to ATN from rhabdomyolysis and no renal recovery and started on HD, TTS, -permacath placed 07/16/23. -receiving dialysis MWF -stable and well compensated at this time -bmp on 09/26 showed bicarb 17, creatinine 8.84, being followed by Nephrology. 2.Chronic Leg and back pain Stable, continue gabapentin 100mg BID 3.Depression. unspecified -No behavioral issues, seen by psychiatry 08/23,on Abilify 2.5 mg daily low-dose since it can cause orthostasis, trazodone 25 mg at bedtime and Zoloft low-dose . -continue to encourage participation in PT /patient tolerating current medications, BP stable 4.Acute?Rhabdomyolysis -resolved with volume -follow clinically 5.Diabetes type 2 -stable blood sugars, last hemoglobin A1c 6.1 ,12/28/2022. 6.Morbid Obesity. BMI 49.2 Low-calorie diet/ weight management . Heparin Full code reason for continued hospitalization: debilitated / depressed, safe discharge to short-term rehab. Quality Stroke Does the patient have a stroke diagnosis?: No VTE Prior VTE?: No VTE Risk Level:: Medical - moderate - high VTE Device Contraindication: N/A - Device Ordered VTE Drug Contraindication: N/A - Med Ordered
[2023-09-29 13:21] LABS: Glucose, Whole Blood 122 mg/dL (60-115)
[2023-09-29 13:23] VITALS: BP 98/67; PULSE 69; RESP 16; TEMP 36.6; O2SAT 98
[2023-09-29] MEDS: Acetaminophen 325 MG TABLET 650 MG PO (13:23)
[2023-09-29] MEDS: Fludrocortisone Acetate 0.1 MG TABLET PO (13:24)
[2023-09-29] MEDS: Gabapentin 100 MG CAPSULE PO ×2 (13:25→21:26)
[2023-09-29] MEDS: Midodrine HCl 10 MG TABLET PO ×2 (13:25→17:51)
[2023-09-29] MEDS: polyethylene glycoL 3350 17 GM POWD.PACK PO (13:26)
[2023-09-29] MEDS: ARIPiprazole 5 MG TABLET 2.5 MG PO (13:26)
[2023-09-29] MEDS: Lidocaine 4 % Patch ADH..PATCH 1 PATCH TRANSDERMA (13:27)
[2023-09-29] MEDS: Heparin Sodium,Porcine 5,000 UNIT/ML VIAL 5000 UNIT SUBCUT ×2 (13:27→21:27)
--- NOTE | 2023-09-29 13:31 | W.PM.DNNEP ---
Subjective Subjective Date of Service: 09/29/23 Principal diagnosis: Elevated troponins This patient was seen during dialysis. Interval history: Being followed for placement. No acute events overnight, tolerating diet ,doing [id number] exercises for right upper extremity weakness. Physical Exam Vital Signs: Vital Signs: Last Vital Signs Temp 97.9 F 09/29/23 13:23 Pulse 69 09/29/23 13:23 Resp 16 09/29/23 13:23 BP 98/67 09/29/23 13:23 Pulse Ox 98 09/29/23 13:23 O2 Del Method Room Air 09/29/23 13:23 O2 Flow Rate 2 09/17/23 12:00 BMI result Body Mass Index 49.2 Const: General: comfortable HEENT: Head: Yes normocephalic Neck: Neck: Yes supple Resp: Auscultation: clear to auscultation bilaterally Cardio: Jugular venous distension: no JVD GI: Palpation (GI): Soft to palpation : General: Yes no CVA tenderness Back/Spine/Pelvis: Back: no CVA tenderness Assessment & Plan Assessment and plan (1) Acute renal failure: Status: Acute Plan CHITO and severe hyperkalemia due to rhabdomyolysis. He has tubular injury due to rhabdomyolysis. Hyperkalemia At this point he has no signs of renal recovery yet. Watch urine output HD 3 times a week On schedule for dialysis - MWF Rash: Allergic- resolved Permcath exit site is clean He has an outpatient dialysis spot at [facility]. Dysfunctional PErmcath; Needs to be changed Time Spent With Patient Time: Total time managing care of this patient today ____ minutes. Procedures Date of Service Date of Service: 09/29/23
--- NOTE | 2023-09-29 13:55 | MHC.CM.PN ---
EMR reviewed and per MD rounds, pt remains medically cleared for discharge pending STR placement with new HD slot, STR referral updated, no STR bed offers.
[2023-09-29 15:39] VITALS: BP 122/73; PULSE 112; RESP 18; TEMP 36.2; O2SAT 96
--- NOTE | 2023-09-29 17:14 | PC.NURSE ---
Pt. needs IV for pain management during pending Permacath replacement scheduled for tomorrow, but pt. refused stated it can be done tomorrow. Resource Nurse to reattempt tomorrow am beginning of shift.
[2023-09-29] MEDS: traZODone HCL 25 MG HALFTAB PO (21:26)
[2023-09-29] MEDS: Sertraline HCL 25 MG TABLET 12.5 MG PO (21:26)
[2023-09-29] MEDS: Mineral Oil/Petrolatum,White 106 GM Tube 1 APPL TOPICAL (21:28)
[2023-09-29 23:22] VITALS: BP 114/72; PULSE 91; RESP 18; TEMP 36.1; O2SAT 98
[2023-09-30 06:53] VITALS: BP 98/59; PULSE 110; RESP 17; TEMP 36.6; O2SAT 96
[2023-09-30 07:02] LABS: Prothrombin Time 11.7 SEC (11.1-13.3)
--- NOTE | 2023-09-30 07:33 | HO.PM.IMPN ---
Subjective Subjective Date of Service: 09/30/23 Interval History: followed for placement. NPO for change of PermCath today since not functioning well No other acute events Review of Systems All other system reviewed and are negative. Physical Exam Vital Signs: Vital Signs: Last Vital Signs Temp 98 F 09/30/23 06:53 Pulse 110 H 09/30/23 06:53 Resp 17 09/30/23 06:53 BP 98/59 L 09/30/23 06:53 Pulse Ox 96 09/30/23 06:53 O2 Del Method Room Air 09/30/23 06:53 O2 Flow Rate 2 09/17/23 12:00 BMI result Body Mass Index 49.2 Const: Other: General awake alert in no distress anicteric sclera Neck no JVD. CVS regular rate rhythm, Respiratory lungs clear to auscultation, no respiratory distress, no wheeze, no rhonchi. Gastrointestinal abdomen soft, non tender, bowel sounds audible. Extremities no edema. Right shoulder limited range of motion. Neuro non focal, speech clear. Skin no rash Psych appropriate affect Objective Data Active Medications Acetaminophen (Acetaminophen 325 Mg Tablet) 650 mg PO Q4H PRN PRN Reason: Pain, Moderate(Pain Scale 4-6) Last Admin: 09/29/23 13:23 Dose: 650 mg Documented By: MONICA Aripiprazole (Aripiprazole 5 Mg Tablet) 2.5 mg PO DAILY [facility] Last Admin: 09/29/23 13:26 Dose: 2.5 mg Documented By: MONICA Comments: pt. was in dialysis Fludrocortisone Acetate (Fludrocortisone Acetate 0.1 Mg Tablet) 0.1 mg PO DAILY [facility] Last Admin: 09/29/23 13:24 Dose: 0.1 mg Documented By: MONICA Comments: pt. was in dialysis Fluticasone Propionate (Fluticasone Propionate Nasal 16 Gm [place]) 2 spray NOSTRIL-B DAILY [facility] Last Admin: 09/29/23 08:17 Dose: 2 spray Documented By: MONICA Gabapentin (Gabapentin 100 Mg Capsule) 100 mg PO BID [facility] Last Admin: 09/29/23 21:26 Dose: 100 mg Documented By: NANCY Heparin Sodium (Porcine) (Heparin Sodium,Porcine 5,000 Unit/Ml Vial) 5,000 unit SUBCUT TID [facility] Last Admin: 09/29/23 21:27 Dose: 5,000 unit Documented By: NANCY Heparin Sodium (Porcine) (Heparin Sodium,Porcine 1,000 Unit/Ml Vial) 4,000 unit IV MOWEFR [facility] Last Admin: 09/29/23 15:21 Dose: Not Given Documented By: MONICA Non-Admin Reason: Dialysis order Dextrose (D10) 250 mls @ 750 mls/hr IV Q15M PRN PRN Reason: per Hypoglycemia Standing Ord. Lidocaine (Lidocaine 4 % Patch Adh..Patch) 1 patch TRANSDERMA DAILY [facility] Last Admin: 09/29/23 13:27 Dose: 1 patch Documented By: MONICA Comments: pt. was in dialysis Midodrine (Midodrine Hcl 10 Mg Tablet) 10 mg PO TIDWM [facility] Last Admin: 09/29/23 17:51 Dose: 10 mg Documented By: MONICA Multi-Ingred Cream/Lotion/Oil/Oint (Mineral Oil/Petrolatum,White 106 Gm Tube) 1 appl TOPICAL BID [facility]; Protocol Last Admin: 09/29/23 21:28 Dose: 1 appl Documented By: NANCY Ondansetron HCl (Ondansetron Odt 4 Mg Tab.Rapdis) 4 mg TRANSLINGU Q6H PRN PRN Reason: Nausea and Vomiting Polyethylene Glycol (Polyethylene Glycol 3350 17 Gm Powd.Pack) 17 gm PO DAILY [facility] Last Admin: 09/29/23 13:26 Dose: 17 gm Documented By: MONICA Comments: pt. was in dialysis Sertraline HCl (Sertraline Hcl 25 Mg Tablet) 12.5 mg PO BEDTIME [facility] Last Admin: 09/29/23 21:26 Dose: 12.5 mg Documented By: NANCY Trazodone HCl (Trazodone Hcl 25 Mg Halftab) 25 mg PO BEDTIME [facility] Last Admin: 09/29/23 21:26 Dose: 25 mg Documented By: NANCY Labs 09/24/23 05:40 09/27/23 08:02 Labs: Laboratory Results - last 24 hr 09/29/23 09/30/23 13:17 06:00 PT 11.7 INR 1.0 POC Glucose 122 H Assessment and Plan (1) ESRD needing dialysis: Status: Acute Plan 53 years old male with PMH of DM2, HTN, Asthma who presented to ED After sustaining a fall and laying on the floor for 9 hours found to have severe acute kidney injury from rhabdomyolysis and hyperkalemia 1.CHITO and severe hyperkalemia and acute metabolic acidosis due to ATN from rhabdomyolysis and no renal recovery and started on HD, TTS, -permacath placed 07/16/23 not functioning well, is NPO for replacement of PermCath today. -receiving dialysis MWF -stable and well compensated at this time -bmp on 09/26 showed bicarb 17, creatinine 8.84, being followed by Nephrology. -soft bp will follow 2.Chronic Leg and back pain Stable, continue gabapentin 100mg BID 3.Depression. unspecified -No behavioral issues, seen by psychiatry 08/23,on Abilify 2.5 mg daily low-dose since it can cause orthostasis, trazodone 25 mg at bedtime and Zoloft low-dose . -continue to encourage participation in PT /patient tolerating current medications, BP stable 4.Acute?Rhabdomyolysis -resolved with volume -follow clinically 5.Diabetes type 2 -stable blood sugars, last hemoglobin A1c 6.1 ,12/28/2022. 6.Morbid Obesity. BMI 49.2 Low-calorie diet/ weight management . Heparin Full code reason for continued hospitalization: debilitated / depressed, safe discharge to short-term rehab. Quality Stroke Does the patient have a stroke diagnosis?: No VTE Prior VTE?: No VTE Risk Level:: Medical - moderate - high VTE Device Contraindication: N/A - Device Ordered VTE Drug Contraindication: N/A - Med Ordered
--- NOTE | 2023-09-30 07:43 | PC.NURSE ---
unable to place IV at this time. RN paged for US guided.
--- NOTE | 2023-09-30 08:16 | PC.NURSE ---
Charge nurse attempted to insert IV but Unsuccessful,RN also tried IV twice ,not succesful,Charge nurse notified Rajendra to try US guided IV OR notified
[2023-09-30] MEDS: Midodrine HCl 10 MG TABLET PO ×3 (08:42→16:33)
[2023-09-30] MEDS: ARIPiprazole 5 MG TABLET 2.5 MG PO (08:43)
[2023-09-30] MEDS: Fludrocortisone Acetate 0.1 MG TABLET PO (08:43)
[2023-09-30] MEDS: Gabapentin 100 MG CAPSULE PO ×2 (08:45→20:15)
[2023-09-30] MEDS: Acetaminophen 325 MG TABLET 650 MG PO ×2 (08:48→20:22)
[2023-09-30 08:51] VITALS: PULSE 102; O2SAT 96
[2023-09-30] MEDS: Lidocaine 4 % Patch ADH..PATCH 1 PATCH TRANSDERMA (08:53)
[2023-09-30] MEDS: Fluticasone Propionate Nasal 16 GM SPRAY 2 SPRAY NOSTRIL-B (08:55)
--- NOTE | 2023-09-30 09:25 | PC.NURSE ---
#20 US guided IV placed by TORSTEN Drew in [facility]
--- NOTE | 2023-09-30 12:00 | PC.NURSE ---
Hemodialysis cath replaced today in Right chest,drsg CDI,no redness,no crepitus
[2023-09-30 12:01] VITALS: BP 106/64; PULSE 92
[2023-09-30] MEDS: Heparin Sodium,Porcine 5,000 UNIT/ML VIAL 5000 UNIT SUBCUT ×2 (14:02→20:15)
[2023-09-30 15:05] VITALS: BP 115/71; PULSE 92; RESP 18; TEMP 36; O2SAT 99
--- NOTE | 2023-09-30 16:21 | MHC.CM.PN ---
STILL NO CURRENT STR BED OFFERS. THIS CM PLACED CALL TO JASEN PUGH ADMISSION DIRECTOR [facility] TO DIS[facility], SHE WILL LOOK INTO HIS FILE AND GET IN TOUCH WITH US TOMORROW IF SHE HAS ANY APPROPRIATE BEDS FOR HIM.
[2023-09-30] MEDS: traZODone HCL 25 MG HALFTAB PO (20:15)
[2023-09-30] MEDS: Sertraline HCL 25 MG TABLET 12.5 MG PO (20:15)
[2023-09-30 23:27] VITALS: BP 101/62; PULSE 94; RESP 17; TEMP 36.1; O2SAT 95
[2023-10-01 07:56] VITALS: BP 94/67; PULSE 104; RESP 18; TEMP 37; O2SAT 98
[2023-10-01] MEDS: Gabapentin 100 MG CAPSULE PO ×2 (09:05→20:55)
[2023-10-01] MEDS: Fludrocortisone Acetate 0.1 MG TABLET PO (09:05)
[2023-10-01] MEDS: Midodrine HCl 10 MG TABLET PO ×2 (09:05→11:42)
[2023-10-01] MEDS: Lidocaine 4 % Patch ADH..PATCH 1 PATCH TRANSDERMA (09:06)
[2023-10-01] MEDS: Heparin Sodium,Porcine 5,000 UNIT/ML VIAL 5000 UNIT SUBCUT ×3 (09:06→20:55)
[2023-10-01] MEDS: ARIPiprazole 5 MG TABLET 2.5 MG PO (09:07)
[2023-10-01] MEDS: Acetaminophen 325 MG TABLET 650 MG PO (09:10)
[2023-10-01] MEDS: Fluticasone Propionate Nasal 16 GM SPRAY 2 SPRAY NOSTRIL-B (09:13)
--- NOTE | 2023-10-01 11:23 | HO.PM.IMPN ---
Subjective Subjective Date of Service: 10/01/23 Interval History: Being followed for placement No acute complaints, tolerating diet, no chest pain, no palpitations PermCath functioning fine. Review of Systems All other system reviewed and are negative. Physical Exam Vital Signs: Vital Signs: Last Vital Signs Temp 98.6 F 10/01/23 07:56 Pulse 104 H 10/01/23 07:56 Resp 18 10/01/23 07:56 BP 94/67 10/01/23 07:56 Pulse Ox 98 10/01/23 07:56 O2 Del Method Room Air 10/01/23 07:56 O2 Flow Rate 2 09/17/23 12:00 BMI result Body Mass Index 49.2 Const: Other: General awake alert in no distress anicteric sclera Neck no JVD. CVS regular rate rhythm, Respiratory lungs clear to auscultation, no respiratory distress, no wheeze, no rhonchi. Gastrointestinal abdomen soft, non tender, bowel sounds audible. Extremities no edema. Right shoulder limited range of motion. Neuro non focal, speech clear. Skin no rash Psych appropriate affect Objective Data Active Medications Acetaminophen (Acetaminophen 325 Mg Tablet) 650 mg PO Q4H PRN PRN Reason: Pain, Moderate(Pain Scale 4-6) Last Admin: 10/01/23 09:10 Dose: 650 mg Documented By: KARLA Aripiprazole (Aripiprazole 5 Mg Tablet) 2.5 mg PO DAILY [facility] Last Admin: 10/01/23 09:07 Dose: 2.5 mg Documented By: KARLA Fludrocortisone Acetate (Fludrocortisone Acetate 0.1 Mg Tablet) 0.1 mg PO DAILY [facility] Last Admin: 10/01/23 09:05 Dose: 0.1 mg Documented By: KARLA Fluticasone Propionate (Fluticasone Propionate Nasal 16 Gm [place]) 2 spray NOSTRIL-B DAILY [facility] Last Admin: 10/01/23 09:13 Dose: 2 spray Documented By: KARLA Gabapentin (Gabapentin 100 Mg Capsule) 100 mg PO BID [facility] Last Admin: 10/01/23 09:05 Dose: 100 mg Documented By: KARLA Heparin Sodium (Porcine) (Heparin Sodium,Porcine 5,000 Unit/Ml Vial) 5,000 unit SUBCUT TID [facility] Last Admin: 10/01/23 09:06 Dose: 5,000 unit Documented By: KARLA Heparin Sodium (Porcine) (Heparin Sodium,Porcine 1,000 Unit/Ml Vial) 4,000 unit IV MOWEFR [facility] Last Admin: 09/29/23 15:21 Dose: Not Given Documented By: MONICA Non-Admin Reason: Dialysis order Dextrose (D10) 250 mls @ 750 mls/hr IV Q15M PRN PRN Reason: per Hypoglycemia Standing Ord. Lidocaine (Lidocaine 4 % Patch Adh..Patch) 1 patch TRANSDERMA DAILY [facility] Last Admin: 10/01/23 09:06 Dose: 1 patch Documented By: KARLA Midodrine (Midodrine Hcl 10 Mg Tablet) 10 mg PO TIDWM [facility] Last Admin: 10/01/23 09:05 Dose: 10 mg Documented By: KARLA Multi-Ingred Cream/Lotion/Oil/Oint (Mineral Oil/Petrolatum,White 106 Gm Tube) 1 appl TOPICAL BID [facility]; Protocol Last Admin: 10/01/23 09:06 Dose: Not Given Documented By: KARLA Non-Admin Reason: Patient Refused Ondansetron HCl (Ondansetron Odt 4 Mg Tab.Rapdis) 4 mg TRANSLINGU Q6H PRN PRN Reason: Nausea and Vomiting Polyethylene Glycol (Polyethylene Glycol 3350 17 Gm Powd.Pack) 17 gm PO DAILY [facility] Last Admin: 10/01/23 09:06 Dose: Not Given Documented By: KARLA Non-Admin Reason: Patient Refused Sertraline HCl (Sertraline Hcl 25 Mg Tablet) 12.5 mg PO BEDTIME [facility] Last Admin: 09/30/23 20:15 Dose: 12.5 mg Documented By: KASI Trazodone HCl (Trazodone Hcl 25 Mg Halftab) 25 mg PO BEDTIME [facility] Last Admin: 09/30/23 20:15 Dose: 25 mg Documented By: KASI Labs 09/24/23 05:40 09/27/23 08:02 Assessment and Plan (1) ESRD needing dialysis: Status: Acute Plan 53 years old male with PMH of DM2, HTN, Asthma who presented to ED After sustaining a fall and laying on the floor for 9 hours found to have severe acute kidney injury from rhabdomyolysis and hyperkalemia 1.CHITO and severe hyperkalemia and acute metabolic acidosis due to ATN from rhabdomyolysis and no renal recovery and started on HD, TTS, -permacath placed 07/16/23 , due to nonfunctioning replaced on 09/29. -receiving dialysis MWF -stable and well compensated at this time -bmp on 09/26 showed bicarb 17, creatinine 8.84, being followed by Nephrology. -soft bp will follow 2.Chronic Leg and back pain Stable, continue gabapentin 100mg BID 3.Depression. unspecified -No behavioral issues, seen by psychiatry 08/23,on Abilify 2.5 mg daily low-dose since it can cause orthostasis, trazodone 25 mg at bedtime and Zoloft low-dose . -continue to encourage participation in PT /patient tolerating current medications, BP stable 4.Acute?Rhabdomyolysis -resolved with volume -follow clinically 5.Diabetes type 2 -stable blood sugars, last hemoglobin A1c 6.1 ,12/28/2022. 6.Morbid Obesity. BMI 49.2 Low-calorie diet/ weight management . Heparin Full code reason for continued hospitalization: debilitated / depressed, safe discharge to short-term rehab. Quality Stroke Does the patient have a stroke diagnosis?: No VTE Prior VTE?: No VTE Risk Level:: Medical - moderate - high VTE Device Contraindication: N/A - Device Ordered VTE Drug Contraindication: N/A - Med Ordered
--- NOTE | 2023-10-01 13:21 | W.PM.DNNEP ---
Subjective Subjective Date of Service: 10/01/23 Principal diagnosis: Elevated troponins This patient was seen during dialysis. Interval history: Being followed for placement No acute complaints, tolerating diet, no chest pain, no palpitations PermCath functioning fine. Physical Exam Vital Signs: Vital Signs: Last Vital Signs Temp 98.6 F 10/01/23 07:56 Pulse 104 H 10/01/23 07:56 Resp 18 10/01/23 07:56 BP 94/67 10/01/23 07:56 Pulse Ox 98 10/01/23 07:56 O2 Del Method Room Air 10/01/23 07:56 O2 Flow Rate 2 09/17/23 12:00 BMI result Body Mass Index 49.2 Const: Other: General awake alert in no distress anicteric sclera Neck no JVD. CVS regular rate rhythm, Respiratory lungs clear to auscultation, no respiratory distress, no wheeze, no rhonchi. Gastrointestinal abdomen soft, non tender, bowel sounds audible. Extremities no edema. Right shoulder limited range of motion. Neuro non focal, speech clear. Skin no rash Psych appropriate affect Assessment & Plan Assessment and plan (1) Acute renal failure: Status: Acute Plan CHITO and severe hyperkalemia due to rhabdomyolysis. He has tubular injury due to rhabdomyolysis. Hyperkalemia At this point he has no signs of renal recovery yet. Watch urine output HD 3 times a week On schedule for dialysis - MWF Rash: Allergic- resolved Permcath exit site is clean He has an outpatient dialysis spot at [facility]. Time Spent With Patient Time: Total time managing care of this patient today ____ minutes. Procedures Date of Service Date of Service: 10/01/23
[2023-10-01 15:09] VITALS: BP 143/74; PULSE 88; RESP 20; TEMP 36.4; O2SAT 100
--- NOTE | 2023-10-01 15:09 | MHC.CM.PN ---
EMR reviewed and per MD rounds, pt remains medically cleared for discharge pending STR placement with new HD slot, no STR bed offers at this time.
[2023-10-01 19:15] VITALS: BP 141/72; PULSE 92; RESP 20; TEMP 36.2; O2SAT 100
[2023-10-01] MEDS: Sertraline HCL 25 MG TABLET 12.5 MG PO (20:55)
[2023-10-01] MEDS: traZODone HCL 25 MG HALFTAB PO (20:55)
[2023-10-01 23:42] VITALS: BP 109/57; PULSE 100; RESP 18; TEMP 37.2; O2SAT 98
--- NOTE | 2023-10-02 04:11 | PC.NURSE ---
Pt verbally abusive, swearing at this RN and FIELD SUPPORT SPECIALIST d/t his coffee not being brought to him quickly enough. Instructed patient staff is doing the best we can and his coffee would be brought to him shortly; also instructed he can not speak to staff in this manner. Pt continued swearing.
[2023-10-02 07:47] VITALS: BP 124/61; PULSE 103; RESP 19; TEMP 36.6; O2SAT 98
[2023-10-02] MEDS: ARIPiprazole 5 MG TABLET 2.5 MG PO (08:40)
[2023-10-02] MEDS: Midodrine HCl 10 MG TABLET PO ×3 (08:40→15:58)
[2023-10-02] MEDS: Fludrocortisone Acetate 0.1 MG TABLET PO (08:41)
[2023-10-02] MEDS: Lidocaine 4 % Patch ADH..PATCH 1 PATCH TRANSDERMA (08:41)
[2023-10-02] MEDS: Gabapentin 100 MG CAPSULE PO ×2 (08:41→20:35)
[2023-10-02] MEDS: Heparin Sodium,Porcine 5,000 UNIT/ML VIAL 5000 UNIT SUBCUT ×3 (08:41→20:35)
[2023-10-02] MEDS: Acetaminophen 325 MG TABLET 650 MG PO ×2 (08:42→20:39)
[2023-10-02] MEDS: Fluticasone Propionate Nasal 16 GM SPRAY 2 SPRAY NOSTRIL-B (08:42)
--- NOTE | 2023-10-02 10:53 | HO.PM.IMPN ---
Subjective Subjective Date of Service: 10/02/23 Interval History: Being followed for placement. Offers no acute complaints, participating with physical therapy eager to ambulate, tolerating hemodialysis, no other acute events overnight. Review of Systems All other system reviewed and are negative. Physical Exam Vital Signs: Vital Signs: Last Vital Signs Temp 97.8 F 10/02/23 07:47 Pulse 103 H 10/02/23 07:47 Resp 19 10/02/23 07:47 BP 124/61 10/02/23 07:47 Pulse Ox 98 10/02/23 07:47 O2 Del Method Room Air 10/02/23 07:47 O2 Flow Rate 2 09/17/23 12:00 BMI result Body Mass Index 49.2 Const: Other: General awake alert in no distress anicteric sclera Neck no JVD. CVS regular rate rhythm, Respiratory lungs clear to auscultation, no respiratory distress, no wheeze, no rhonchi. Gastrointestinal abdomen soft, non tender, bowel sounds audible. Extremities no edema. Right shoulder limited range of motion. Neuro non focal, speech clear. Skin no rash Psych appropriate affect Objective Data Active Medications Acetaminophen (Acetaminophen 325 Mg Tablet) 650 mg PO Q4H PRN PRN Reason: Pain, Moderate(Pain Scale 4-6) Last Admin: 10/02/23 08:42 Dose: 650 mg Documented By: RICHARD.COTEMA Aripiprazole (Aripiprazole 5 Mg Tablet) 2.5 mg PO DAILY [facility] Last Admin: 10/02/23 08:40 Dose: 2.5 mg Documented By: RICHARD.COTEMA Fludrocortisone Acetate (Fludrocortisone Acetate 0.1 Mg Tablet) 0.1 mg PO DAILY [facility] Last Admin: 10/02/23 08:41 Dose: 0.1 mg Documented By: RICHARD.COTEMA Fluticasone Propionate (Fluticasone Propionate Nasal 16 Gm [place]) 2 spray NOSTRIL-B DAILY [facility] Last Admin: 10/02/23 08:42 Dose: 2 spray Documented By: RICHARD.COTEMA Gabapentin (Gabapentin 100 Mg Capsule) 100 mg PO BID [facility] Last Admin: 10/02/23 08:41 Dose: 100 mg Documented By: RICHARD.COTEMA Heparin Sodium (Porcine) (Heparin Sodium,Porcine 5,000 Unit/Ml Vial) 5,000 unit SUBCUT TID [facility] Last Admin: 08/24/24 08:41 Dose: 5,000 unit Documented By: OSCAR Heparin Sodium (Porcine) (Heparin Sodium,Porcine 1,000 Unit/Ml Vial) 4,000 unit IV MOWEFR [facility] Last Admin: 10/01/23 14:28 Dose: Not Given Documented By: KARLA Non-Admin Reason: dialysis oprt not working Dextrose (D10) 250 mls @ 750 mls/hr IV Q15M PRN PRN Reason: per Hypoglycemia Standing Ord. Lidocaine (Lidocaine 4 % Patch Adh..Patch) 1 patch TRANSDERMA DAILY [facility] Last Admin: 10/02/23 08:41 Dose: 1 patch Documented By: OSCAR Midodrine (Midodrine Hcl 10 Mg Tablet) 10 mg PO TIDWM [facility] Last Admin: 10/02/23 08:40 Dose: 10 mg Documented By: OSCAR Multi-Ingred Cream/Lotion/Oil/Oint (Mineral Oil/Petrolatum,White 106 Gm Tube) 1 appl TOPICAL BID [facility]; Protocol Last Admin: 10/02/23 08:26 Dose: Not Given Documented By: OSCAR Non-Admin Reason: Patient Refused Ondansetron HCl (Ondansetron Odt 4 Mg Tab.Rapdis) 4 mg TRANSLINGU Q6H PRN PRN Reason: Nausea and Vomiting Polyethylene Glycol (Polyethylene Glycol 3350 17 Gm Powd.Pack) 17 gm PO DAILY [facility] Last Admin: 10/02/23 08:26 Dose: Not Given Documented By: OSCAR Non-Admin Reason: Patient Refused Sertraline HCl (Sertraline Hcl 25 Mg Tablet) 12.5 mg PO BEDTIME [facility] Last Admin: 10/01/23 20:55 Dose: 12.5 mg Documented By: DAVID Trazodone HCl (Trazodone Hcl 25 Mg Halftab) 25 mg PO BEDTIME [facility] Last Admin: 10/01/23 20:55 Dose: 25 mg Documented By: DAVID Labs 09/24/23 05:40 09/27/23 08:02 Assessment and Plan (1) ESRD needing dialysis: Status: Acute Plan 53 years old male with PMH of DM2, HTN, Asthma who presented to ED After sustaining a fall and laying on the floor for 9 hours found to have severe acute kidney injury from rhabdomyolysis and hyperkalemia 1.CHITO and severe hyperkalemia and acute metabolic acidosis due to ATN from rhabdomyolysis and no renal recovery and started on HD, TTS, -permacath placed 07/16/23 , due to nonfunctioning replaced on 09/29. -receiving dialysis MWF -stable and well compensated at this time -bmp on 09/26 showed bicarb 17, creatinine 8.84, being followed by Nephrology. -soft bp will follow 2.Chronic Leg and back pain Stable, continue gabapentin 100mg BID 3.Depression. unspecified -No behavioral issues, seen by psychiatry 08/23,on Abilify 2.5 mg daily low-dose since it can cause orthostasis, trazodone 25 mg at bedtime and Zoloft low-dose . -continue to encourage participation in PT /patient tolerating current medications, BP stable 4.Acute?Rhabdomyolysis -resolved with volume -follow clinically 5.Diabetes type 2 -stable blood sugars, last hemoglobin A1c 6.1 ,12/28/2022. 6.Morbid Obesity. BMI 49.2 Low-calorie diet/ weight management . Encourage ambulation. Heparin Full code reason for continued hospitalization: debilitated / depressed, safe discharge to short-term rehab. Quality Stroke Does the patient have a stroke diagnosis?: No VTE Prior VTE?: No VTE Risk Level:: Medical - moderate - high VTE Device Contraindication: N/A - Device Ordered VTE Drug Contraindication: N/A - Med Ordered
[2023-10-02 15:50] VITALS: BP 121/70; PULSE 82; RESP 20; TEMP 36.2; O2SAT 99
[2023-10-02] MEDS: Sertraline HCL 25 MG TABLET 12.5 MG PO (20:35)
[2023-10-02] MEDS: traZODone HCL 25 MG HALFTAB PO (20:35)
[2023-10-02 23:04] VITALS: BP 118/72; PULSE 91; RESP 14; TEMP 36.6; O2SAT 96
[2023-10-03 07:11] VITALS: BP 126/76; PULSE 98; RESP 18; TEMP 36.1; O2SAT 96
[2023-10-03] MEDS: Gabapentin 100 MG CAPSULE PO ×2 (08:24→20:22)
[2023-10-03] MEDS: ARIPiprazole 5 MG TABLET 2.5 MG PO (08:24)
[2023-10-03] MEDS: Midodrine HCl 10 MG TABLET PO ×3 (08:24→16:33)
[2023-10-03] MEDS: Acetaminophen 325 MG TABLET 650 MG PO ×3 (08:24→20:22)
[2023-10-03] MEDS: Fludrocortisone Acetate 0.1 MG TABLET PO (08:25)
[2023-10-03] MEDS: Heparin Sodium,Porcine 5,000 UNIT/ML VIAL 5000 UNIT SUBCUT ×3 (08:25→20:23)
[2023-10-03] MEDS: Lidocaine 4 % Patch ADH..PATCH 1 PATCH TRANSDERMA (08:25)
[2023-10-03] MEDS: Fluticasone Propionate Nasal 16 GM SPRAY 2 SPRAY NOSTRIL-B (08:25)
--- NOTE | 2023-10-03 10:52 | HO.PM.IMPN ---
Subjective Subjective Date of Service: 10/03/23 Interval History: Being followed for placement Continue hemodialysis as per Nephrology Tolerating diet, no nausea, no vomiting, no abdominal pain, no other acute events overnight, participating in physical therapy. Review of Systems All other system reviewed and are negative. Physical Exam Vital Signs: Vital Signs: Last Vital Signs Temp 96.9 F 10/03/23 07:11 Pulse 98 10/03/23 07:11 Resp 18 10/03/23 07:11 BP 126/76 10/03/23 07:11 Pulse Ox 96 10/03/23 07:11 O2 Del Method Room Air 10/03/23 07:11 O2 Flow Rate 2 09/17/23 12:00 BMI result Body Mass Index 49.2 Const: Other: General awake alert in no distress anicteric sclera Neck no JVD. CVS regular rate rhythm, Respiratory lungs clear to auscultation, no respiratory distress, no wheeze, no rhonchi. Gastrointestinal abdomen soft, non tender, bowel sounds audible. Extremities no edema. Right shoulder limited range of motion. Neuro non focal, speech clear. Skin no rash Psych appropriate affect Objective Data Active Medications Acetaminophen (Acetaminophen 325 Mg Tablet) 650 mg PO Q4H PRN PRN Reason: Pain, Moderate(Pain Scale 4-6) Last Admin: 10/03/23 08:24 Dose: 650 mg Documented By: RICHARD.COTEMA Aripiprazole (Aripiprazole 5 Mg Tablet) 2.5 mg PO DAILY [facility] Last Admin: 10/03/23 08:24 Dose: 2.5 mg Documented By: RICHARD.COTEMA Fludrocortisone Acetate (Fludrocortisone Acetate 0.1 Mg Tablet) 0.1 mg PO DAILY [facility] Last Admin: 10/03/23 08:25 Dose: 0.1 mg Documented By: RICHARD.COTEMA Fluticasone Propionate (Fluticasone Propionate Nasal 16 Gm [place]) 2 spray NOSTRIL-B DAILY [facility] Last Admin: 10/03/23 08:25 Dose: 2 spray Documented By: RICHARD.COTEMA Gabapentin (Gabapentin 100 Mg Capsule) 100 mg PO BID [facility] Last Admin: 10/03/23 08:24 Dose: 100 mg Documented By: RICHARD.COTEMA Heparin Sodium (Porcine) (Heparin Sodium,Porcine 5,000 Unit/Ml Vial) 5,000 unit SUBCUT TID [facility] Last Admin: 10/03/23 08:25 Dose: 5,000 unit Documented By: OSCAR Heparin Sodium (Porcine) (Heparin Sodium,Porcine 1,000 Unit/Ml Vial) 4,000 unit IV MOWEFR [facility] Last Admin: 10/01/23 14:28 Dose: Not Given Documented By: KARLA Non-Admin Reason: dialysis oprt not working Dextrose (D10) 250 mls @ 750 mls/hr IV Q15M PRN PRN Reason: per Hypoglycemia Standing Ord. Lidocaine (Lidocaine 4 % Patch Adh..Patch) 1 patch TRANSDERMA DAILY [facility] Last Admin: 10/03/23 08:25 Dose: 1 patch Documented By: OSCAR Midodrine (Midodrine Hcl 10 Mg Tablet) 10 mg PO TIDWM [facility] Last Admin: 10/03/23 08:24 Dose: 10 mg Documented By: OSCAR Multi-Ingred Cream/Lotion/Oil/Oint (Mineral Oil/Petrolatum,White 106 Gm Tube) 1 appl TOPICAL BID [facility]; Protocol Last Admin: 10/03/23 08:06 Dose: Not Given Documented By: OSCAR Non-Admin Reason: Patient Refused Ondansetron HCl (Ondansetron Odt 4 Mg Tab.Rapdis) 4 mg TRANSLINGU Q6H PRN PRN Reason: Nausea and Vomiting Polyethylene Glycol (Polyethylene Glycol 3350 17 Gm Powd.Pack) 17 gm PO DAILY [facility] Last Admin: 10/03/23 08:06 Dose: Not Given Documented By: OSCAR Non-Admin Reason: Patient Refused Sertraline HCl (Sertraline Hcl 25 Mg Tablet) 12.5 mg PO BEDTIME [facility] Last Admin: 10/02/23 20:35 Dose: 12.5 mg Documented By: DAVID Trazodone HCl (Trazodone Hcl 25 Mg Halftab) 25 mg PO BEDTIME [facility] Last Admin: 10/02/23 20:35 Dose: 25 mg Documented By: DAVID Labs 09/24/23 05:40 09/27/23 08:02 Assessment and Plan (1) ESRD needing dialysis: Status: Acute Plan 53 years old male with PMH of DM2, HTN, Asthma who presented to ED After sustaining a fall and laying on the floor for 9 hours found to have severe acute kidney injury from rhabdomyolysis and hyperkalemia 1.CHITO and severe hyperkalemia and acute metabolic acidosis due to ATN from rhabdomyolysis and no renal recovery and started on HD, TTS, -permacath placed 07/16/23 , due to nonfunctioning replaced on 09/29. -receiving dialysis MWF -stable and well compensated at this time -bmp on 09/26 showed bicarb 17, creatinine 8.84, being followed by Nephrology. -soft bp will follow 2.Chronic Leg and back pain Stable, continue gabapentin 100mg BID 3.Depression. unspecified -No behavioral issues, seen by psychiatry 08/23,on Abilify 2.5 mg daily low-dose since it can cause orthostasis, trazodone 25 mg at bedtime and Zoloft low-dose . -continue to encourage participation in PT /patient tolerating current medications, BP stable 4.Acute?Rhabdomyolysis -resolved with volume -follow clinically 5.Diabetes type 2 -stable blood sugars, last hemoglobin A1c 6.1 ,12/28/2022. 6.Morbid Obesity. BMI 49.2 Low-calorie diet/ weight management . Encourage ambulation. Heparin Full code reason for continued hospitalization: debilitated / depressed, safe discharge to short-term rehab. Quality Stroke Does the patient have a stroke diagnosis?: No VTE Prior VTE?: No VTE Risk Level:: Medical - moderate - high VTE Device Contraindication: N/A - Device Ordered VTE Drug Contraindication: N/A - Med Ordered
[2023-10-03] MEDS: Mineral Oil/Petrolatum,White 106 GM Tube 1 APPL TOPICAL (14:37)
[2023-10-03 15:21] VITALS: BP 133/80; PULSE 86; RESP 16; TEMP 36.2; O2SAT 97
[2023-10-03] MEDS: traZODone HCL 25 MG HALFTAB PO (20:22)
[2023-10-03] MEDS: Sertraline HCL 25 MG TABLET 12.5 MG PO (20:23)
[2023-10-04 07:53] VITALS: BP 109/71; PULSE 100; RESP 14; TEMP 36.8; O2SAT 98
[2023-10-04] MEDS: Heparin Sodium,Porcine 5,000 UNIT/ML VIAL 5000 UNIT SUBCUT ×3 (08:29→20:19)
[2023-10-04] MEDS: ARIPiprazole 5 MG TABLET 2.5 MG PO (08:29)
[2023-10-04] MEDS: Midodrine HCl 10 MG TABLET PO ×2 (08:29→11:32)
[2023-10-04] MEDS: Fluticasone Propionate Nasal 16 GM SPRAY 2 SPRAY NOSTRIL-B (08:30)
[2023-10-04] MEDS: Lidocaine 4 % Patch ADH..PATCH 1 PATCH TRANSDERMA (08:30)
[2023-10-04] MEDS: Fludrocortisone Acetate 0.1 MG TABLET PO (08:30)
[2023-10-04] MEDS: Gabapentin 100 MG CAPSULE PO ×2 (08:30→20:19)
--- NOTE | 2023-10-04 10:53 | HO.PM.IMPN ---
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 Offers no acute complaints of pain, lightheadedness or dizziness, motivated and ambulating daily, no acute events overnight. Review of Systems All other system reviewed and are negative. Physical Exam Vital Signs: Vital Signs: Last Vital Signs Temp 98.3 F 10/04/23 07:53 Pulse 100 10/04/23 07:53 Resp 14 10/04/23 07:53 BP 109/71 10/04/23 07:53 Pulse Ox 98 10/04/23 07:53 O2 Del Method Room Air 10/04/23 07:53 O2 Flow Rate 2 09/17/23 12:00 BMI result Body Mass Index 49.2 Const: Other: General awake alert in no distress anicteric sclera PermCath site surrounded by small papular rash likely due to dressing, no hyperemia Neck no JVD. CVS regular rate rhythm, Respiratory lungs clear to auscultation, no respiratory distress, no wheeze, no rhonchi. Gastrointestinal abdomen soft, non tender, bowel sounds audible. Extremities no edema. Right shoulder limited range of motion. Neuro non focal, speech clear. Skin no rash Psych appropriate affect Objective Data Active Medications Acetaminophen (Acetaminophen 325 Mg Tablet) 650 mg PO Q4H PRN PRN Reason: Pain, Moderate(Pain Scale 4-6) Last Admin: 10/03/23 20:22 Dose: 650 mg Documented By: OSCAR Aripiprazole (Aripiprazole 5 Mg Tablet) 2.5 mg PO DAILY ON LICENSE OF [facility] Last Admin: 10/04/23 08:29 Dose: 2.5 mg Documented By: LAVON Fludrocortisone Acetate (Fludrocortisone Acetate 0.1 Mg Tablet) 0.1 mg PO DAILY ON LICENSE OF [facility] Last Admin: 10/04/23 08:30 Dose: 0.1 mg Documented By: LAVON Fluticasone Propionate (Fluticasone Propionate Nasal 16 Gm [place]) 2 spray NOSTRIL-B DAILY ON LICENSE OF [facility] Last Admin: 10/04/23 08:30 Dose: 2 spray Documented By: LAVON Gabapentin (Gabapentin 100 Mg Capsule) 100 mg PO BID ON LICENSE OF [facility] Last Admin: 10/04/23 08:30 Dose: 100 mg Documented By: LAVON Heparin Sodium (Porcine) (Heparin Sodium,Porcine 5,000 Unit/Ml Vial) 5,000 unit SUBCUT TID ON LICENSE OF [facility] Last Admin: 10/04/23 08:29 Dose: 5,000 unit Documented By: LAVON Heparin Sodium (Porcine) (Heparin Sodium,Porcine 1,000 Unit/Ml Vial) 4,000 unit IV MOWEFR ON LICENSE OF [facility] Last Admin: 10/01/23 14:28 Dose: Not Given Documented By: KARLA Non-Admin Reason: dialysis oprt not working Dextrose (D10) 250 mls @ 750 mls/hr IV Q15M PRN PRN Reason: per Hypoglycemia Standing Ord. Lidocaine (Lidocaine 4 % Patch Adh..Patch) 1 patch TRANSDERMA DAILY ON LICENSE OF [facility] Last Admin: 10/04/23 08:30 Dose: 1 patch Documented By: LAVON Midodrine (Midodrine Hcl 10 Mg Tablet) 10 mg PO TIDWM ON LICENSE OF [facility] Last Admin: 10/04/23 08:29 Dose: 10 mg Documented By: LAVON Multi-Ingred Cream/Lotion/Oil/Oint (Mineral Oil/Petrolatum,White 106 Gm Tube) 1 appl TOPICAL BID ON LICENSE OF [facility]; Protocol Last Admin: 10/04/23 08:39 Dose: Not Given Documented By: LAVON Non-Admin Reason: Patient Refused Ondansetron HCl (Ondansetron Odt 4 Mg Tab.Rapdis) 4 mg TRANSLINGU Q6H PRN PRN Reason: Nausea and Vomiting Polyethylene Glycol (Polyethylene Glycol 3350 17 Gm Powd.Pack) 17 gm PO DAILY ON LICENSE OF [facility] Last Admin: 10/04/23 08:30 Dose: Not Given Documented By: LAVON Non-Admin Reason: Patient Refused Sertraline HCl (Sertraline Hcl 25 Mg Tablet) 12.5 mg PO BEDTIME ON LICENSE OF [facility] Last Admin: 10/03/23 20:23 Dose: 12.5 mg Documented By: OSCAR Trazodone HCl (Trazodone Hcl 25 Mg Halftab) 25 mg PO BEDTIME ON LICENSE OF [facility] Last Admin: 10/03/23 20:22 Dose: 25 mg Documented By: OSCAR Labs 09/24/23 05:40 09/27/23 08:02 Assessment and Plan (1) ESRD needing dialysis: Status: Acute Plan 53 years old male with PMH of DM2, HTN, Asthma who presented to ED After sustaining a fall and laying on the floor for 9 hours found to have severe acute kidney injury from rhabdomyolysis and hyperkalemia 1.CHITO and severe hyperkalemia and acute metabolic acidosis due to ATN from rhabdomyolysis and no renal recovery and started on HD, TTS, -permacath placed 07/16/23 , being followed by Nephrology for malfunctioning. -receiving dialysis MWF -stable and well compensated at this time -bmp on 09/26 showed bicarb 17, creatinine 8.84, being followed by Nephrology. -soft bp will follow, on midodrine. 2.Chronic Leg and back pain Stable, continue gabapentin 100mg BID 3.Depression. unspecified -No behavioral issues, seen by psychiatry 08/23,on Abilify 2.5 mg daily low-dose since it can cause orthostasis, trazodone 25 mg at bedtime and Zoloft low-dose . -continue to encourage participation in PT /patient tolerating current medications, BP stable 4.Acute?Rhabdomyolysis -resolved with volume -follow clinically 5.Diabetes type 2 -stable blood sugars, last hemoglobin A1c 6.1 ,12/28/2022. 6.Morbid Obesity. BMI 49.2 Low-calorie diet/ weight management . Encourage ambulation. Heparin Full code reason for continued hospitalization: debilitated / depressed, safe discharge to short-term rehab. Quality Stroke Does the patient have a stroke diagnosis?: No VTE Prior VTE?: No VTE Risk Level:: Medical - moderate - high VTE Device Contraindication: N/A - Device Ordered VTE Drug Contraindication: N/A - Med Ordered
[2023-10-04 11:36] VITALS: BP 117/74; PULSE 96
[2023-10-04 15:36] VITALS: BP 132/83; PULSE 89; RESP 14; TEMP 36.8; O2SAT 98
[2023-10-04] MEDS: Sertraline HCL 25 MG TABLET 12.5 MG PO (20:19)
[2023-10-04] MEDS: traZODone HCL 25 MG HALFTAB PO (20:19)
[2023-10-04 23:06] VITALS: BP 120/74; PULSE 96; RESP 18; TEMP 36.3; O2SAT 97
[2023-10-05 06:52] VITALS: BP 132/76; PULSE 72; RESP 17; TEMP 36.6; O2SAT 98
[2023-10-05] MEDS: Lidocaine 4 % Patch ADH..PATCH 1 PATCH TRANSDERMA (08:26)
[2023-10-05] MEDS: ARIPiprazole 5 MG TABLET 2.5 MG PO (08:26)
[2023-10-05] MEDS: Heparin Sodium,Porcine 5,000 UNIT/ML VIAL 5000 UNIT SUBCUT ×3 (08:27→21:22)
[2023-10-05] MEDS: Fludrocortisone Acetate 0.1 MG TABLET PO (08:27)
[2023-10-05] MEDS: Gabapentin 100 MG CAPSULE PO ×2 (08:27→21:21)
[2023-10-05] MEDS: Fluticasone Propionate Nasal 16 GM SPRAY 2 SPRAY NOSTRIL-B (08:28)
--- NOTE | 2023-10-05 10:00 | W.PM.DNNEP ---
Subjective Subjective Date of Service: 10/05/23 Principal diagnosis: Elevated troponins This patient was seen during dialysis. Interval history: Events noted. Currently on dialysis Physical Exam Vital Signs: Vital Signs: Last Vital Signs Temp 98 F 10/05/23 06:52 Pulse 72 10/05/23 06:52 Resp 17 10/05/23 06:52 BP 132/76 10/05/23 06:52 Pulse Ox 98 10/05/23 06:52 O2 Del Method Room Air 10/05/23 06:52 O2 Flow Rate 2 09/17/23 12:00 BMI result Body Mass Index 49.2 Const: Other: General awake alert in no distress anicteric sclera Neck no JVD. CVS regular rate rhythm, Respiratory lungs clear to auscultation, no respiratory distress, no wheeze, no rhonchi. Gastrointestinal abdomen soft, non tender, bowel sounds audible. Extremities no edema. Right shoulder limited range of motion. Neuro non focal, speech clear. Skin no rash Psych appropriate affect General: comfortable and ill appearing HEENT: Head: Yes normocephalic Neck: Neck: Yes supple Resp: Auscultation: clear to auscultation bilaterally Cardio: Jugular venous distension: no JVD Palpation: no palpable S3 Heart sounds: no rubs GI: Palpation (GI): Soft to palpation Auscultation: normal bowel sounds : General: Yes no CVA tenderness Back/Spine/Pelvis: Back: no CVA tenderness Neuro: Motor exam (neuro): no asterixis Assessment & Plan Assessment and plan (1) Acute renal failure: Status: Acute Plan CHITO and severe hyperkalemia due to rhabdomyolysis. He has tubular injury due to rhabdomyolysis. Hyperkalemia Of renal recovery. He has progress to end stage renal disease HD 3 times a week On schedule for dialysis - Time Spent With Patient Time: Total time managing care of this patient today ____ minutes. Procedures Date of Service Date of Service: 10/05/23
--- NOTE | 2023-10-05 11:00 | P.PNIM_ITS ---
Subjective Subjective Date of Service: 10/05/23 Interval History: Being followed for placement. Seen and examined at hemodialysis, hemodialysis catheter was malfunctioning therefore underwent catheter change by IR yesterday and receiving hemodialysis today, Will be back on Wednesday schedule from tomorrow. Patient offers no acute complaints. Review of Systems All other system reviewed and are negative. Physical Exam 2 Vital Signs: Vital Signs: Last Vital Signs Temp 98 F 10/05/23 06:52 Pulse 72 10/05/23 06:52 Resp 17 10/05/23 06:52 BP 132/76 10/05/23 06:52 Pulse Ox 98 10/05/23 06:52 O2 Del Method Room Air 10/05/23 06:52 O2 Flow Rate 2 09/17/23 12:00 BMI result Body Mass Index 49.2 Const: Other: General awake alert in no distress anicteric sclera PermCath site surrounded by small papular rash likely due to dressing,drying Neck no JVD. CVS regular rate rhythm, Respiratory lungs clear to auscultation, no respiratory distress, no wheeze, no rhonchi. Gastrointestinal abdomen soft, non tender, bowel sounds audible. Extremities no edema. Right shoulder limited range of motion. Neuro non focal, speech clear. Skin no rash Psych appropriate affect Objective Data Active Medications Acetaminophen (Acetaminophen 325 Mg Tablet) 650 mg PO Q4H PRN PRN Reason: Pain, Moderate(Pain Scale 4-6) Last Admin: 10/03/23 20:22 Dose: 650 mg Documented By: OSCAR Aripiprazole (Aripiprazole 5 Mg Tablet) 2.5 mg PO DAILY [facility] Last Admin: 10/05/23 08:26 Dose: 2.5 mg Documented By: LAVON Fludrocortisone Acetate (Fludrocortisone Acetate 0.1 Mg Tablet) 0.1 mg PO DAILY [facility] Last Admin: 10/05/23 08:27 Dose: 0.1 mg Documented By: LAVON Fluticasone Propionate (Fluticasone Propionate Nasal 16 Gm [place]) 2 spray NOSTRIL-B DAILY [facility] Last Admin: 10/05/23 08:28 Dose: 2 spray Documented By: LAVON Gabapentin (Gabapentin 100 Mg Capsule) 100 mg PO BID [facility] Last Admin: 10/05/23 08:27 Dose: 100 mg Documented By: LAVON Heparin Sodium (Porcine) (Heparin Sodium,Porcine 5,000 Unit/Ml Vial) 5,000 unit SUBCUT TID [facility] Last Admin: 10/05/23 08:27 Dose: 5,000 unit Documented By: LAVON Heparin Sodium (Porcine) (Heparin Sodium,Porcine 1,000 Unit/Ml Vial) 4,000 unit IV MOWEFR [facility] Last Admin: 10/04/23 13:55 Dose: Not Given Documented By: POOJA Non-Admin Reason: Off Unit: Surgery Heparin Sodium (Porcine) (Heparin Sodium,Porcine 5,000 Unit/Ml Vial) 5,000 unit IVPUSH MOWEFR [facility] Dextrose (D10) 250 mls @ 750 mls/hr IV Q15M PRN PRN Reason: per Hypoglycemia Standing Ord. Lidocaine (Lidocaine 4 % Patch Adh..Patch) 1 patch TRANSDERMA DAILY [facility] Last Admin: 10/05/23 08:26 Dose: 1 patch Documented By: LAVON Midodrine (Midodrine Hcl 10 Mg Tablet) 10 mg PO TIDWM [facility] Last Admin: 10/05/23 09:22 Dose: Not Given Documented By: LAVON Non-Admin Reason: BP 132/76 Multi-Ingred Cream/Lotion/Oil/Oint (Mineral Oil/Petrolatum,White 106 Gm Tube) 1 appl TOPICAL BID [facility]; Protocol Last Admin: 10/05/23 08:28 Dose: Not Given Documented By: LAVON Non-Admin Reason: Patient Refused Ondansetron HCl (Ondansetron Odt 4 Mg Tab.Rapdis) 4 mg TRANSLINGU Q6H PRN PRN Reason: Nausea and Vomiting Polyethylene Glycol (Polyethylene Glycol 3350 17 Gm Powd.Pack) 17 gm PO DAILY [facility] Last Admin: 10/05/23 08:26 Dose: Not Given Documented By: LAVON Non-Admin Reason: Patient Refused Sertraline HCl (Sertraline Hcl 25 Mg Tablet) 12.5 mg PO BEDTIME [facility] Last Admin: 10/04/23 20:19 Dose: 12.5 mg Documented By: HERMELINDO Trazodone HCl (Trazodone Hcl 25 Mg Halftab) 25 mg PO BEDTIME [facility] Last Admin: 10/04/23 20:19 Dose: 25 mg Documented By: JIGNA Labs 09/24/23 05:40 09/27/23 08:02 Assessment and Plan (1) ESRD needing dialysis: Status: Acute Plan 53 years old male with PMH of DM2, HTN, Asthma who presented to ED After sustaining a fall and laying on the floor for 9 hours found to have severe acute kidney injury from rhabdomyolysis and hyperkalemia 1.CHITO and severe hyperkalemia and acute metabolic acidosis due to ATN from rhabdomyolysis and no renal recovery and started on HD, TTS, -permacath placed 07/16/23 , functioning well today. -receiving dialysis MWF -stable and well compensated at this time -bmp on 09/26 showed bicarb 17, creatinine 8.84, being followed by Nephrology. - stable BP will DC midodrine 2.Chronic Leg and back pain Stable, continue gabapentin 100mg BID 3.Depression. unspecified -No behavioral issues, seen by psychiatry 08/23,on Abilify 2.5 mg daily low-dose since it can cause orthostasis, trazodone 25 mg at bedtime and Zoloft low-dose . -continue to encourage participation in PT /patient tolerating current medications, BP stable 4.Acute?Rhabdomyolysis -resolved with volume -follow clinically 5.Diabetes type 2 -stable blood sugars, last hemoglobin A1c 6.1 ,12/28/2022. 6.Morbid Obesity. BMI 49.2 Low-calorie diet/ weight management . Encourage ambulation. Heparin Full code reason for continued hospitalization: debilitated / depressed, safe discharge to short-term rehab. Quality Stroke Does the patient have a stroke diagnosis?: No VTE Prior VTE?: No VTE Risk Level:: Medical - moderate - high VTE Device Contraindication: N/A - Device Ordered VTE Drug Contraindication: N/A - Med Ordered
[2023-10-05 15:49] VITALS: BP 95/64; PULSE 113; RESP 18; TEMP 37; O2SAT 99
[2023-10-05] MEDS: Sertraline HCL 25 MG TABLET 12.5 MG PO (21:21)
[2023-10-05] MEDS: traZODone HCL 25 MG HALFTAB PO (21:22)
[2023-10-05 23:37] VITALS: BP 131/79; PULSE 100; RESP 18; TEMP 36.7; O2SAT 97
[2023-10-06 06:54] VITALS: BP 109/73; PULSE 101; RESP 17; TEMP 36.7; O2SAT 99
[2023-10-06] MEDS: polyethylene glycoL 3350 17 GM POWD.PACK PO (08:13)
[2023-10-06] MEDS: Lidocaine 4 % Patch ADH..PATCH 1 PATCH TRANSDERMA (08:13)
[2023-10-06] MEDS: Heparin Sodium,Porcine 5,000 UNIT/ML VIAL 5000 UNIT SUBCUT ×3 (08:13→20:32)
[2023-10-06] MEDS: ARIPiprazole 5 MG TABLET 2.5 MG PO (08:13)
[2023-10-06] MEDS: Fluticasone Propionate Nasal 16 GM SPRAY 2 SPRAY NOSTRIL-B (08:14)
[2023-10-06] MEDS: Midodrine HCl 5 MG TABLET PO ×3 (08:14→20:32)
[2023-10-06] MEDS: Gabapentin 100 MG CAPSULE PO ×2 (08:14→20:32)
[2023-10-06] MEDS: Fludrocortisone Acetate 0.1 MG TABLET PO (08:14)
--- NOTE | 2023-10-06 11:25 | P.PNIM_ITS ---
Subjective Subjective Date of Service: 10/06/23 Interval History: Being followed for placement offers no acute complaints. Tolerating diet no nausea, no vomiting, no diarrhea or abdominal pain. No acute events overnight PermCath functioning fine on Wednesday schedule. Participating with PT. Review of Systems All other system reviewed and are negative. Physical Exam 2 Vital Signs: Vital Signs: Last Vital Signs Temp 98.1 F 10/06/23 06:54 Pulse 101 H 10/06/23 06:54 Resp 17 10/06/23 06:54 BP 109/73 10/06/23 06:54 Pulse Ox 99 10/06/23 06:54 O2 Del Method Room Air 10/06/23 06:54 O2 Flow Rate 2 09/17/23 12:00 BMI result Body Mass Index 49.2 Const: Other: General awake alert in no distress anicteric sclera rt ant chest permacth in place Neck no JVD. CVS regular rate rhythm, Respiratory lungs clear to auscultation, no respiratory distress, no wheeze, no rhonchi. Gastrointestinal abdomen soft, non tender, bowel sounds audible. Extremities no edema. Right shoulder limited range of motion. Neuro non focal, speech clear. Skin no rash Psych appropriate affect Objective Data Active Medications Acetaminophen (Acetaminophen 325 Mg Tablet) 650 mg PO Q4H PRN PRN Reason: Pain, Moderate(Pain Scale 4-6) Last Admin: 10/03/23 20:22 Dose: 650 mg Documented By: COTEMA Aripiprazole (Aripiprazole 5 Mg Tablet) 2.5 mg PO DAILY [facility] Last Admin: 10/06/23 08:13 Dose: 2.5 mg Documented By: TERRIE Fludrocortisone Acetate (Fludrocortisone Acetate 0.1 Mg Tablet) 0.1 mg PO DAILY [facility] Last Admin: 10/06/23 08:14 Dose: 0.1 mg Documented By: TERRIE Fluticasone Propionate (Fluticasone Propionate Nasal 16 Gm [place]) 2 spray NOSTRIL-B DAILY [facility] Last Admin: 10/06/23 08:14 Dose: 2 spray Documented By: TERRIE Gabapentin (Gabapentin 100 Mg Capsule) 100 mg PO BID [facility] Last Admin: 10/06/23 08:14 Dose: 100 mg Documented By: TERRIE Heparin Sodium (Porcine) (Heparin Sodium,Porcine 5,000 Unit/Ml Vial) 5,000 unit SUBCUT TID [facility] Last Admin: 10/06/23 08:13 Dose: 5,000 unit Documented By: TERRIE Heparin Sodium (Porcine) (Heparin Sodium,Porcine 1,000 Unit/Ml Vial) 4,[facility] Last Admin: 10/04/23 13:55 Dose: Not Given Documented By: POOJA Non-Admin Reason: Off Unit: Surgery Heparin Sodium (Porcine) (Heparin Sodium,Porcine 5,000 Unit/Ml Vial) 5,000 unit [facility]USH [facility] Last Admin: 10/06/23 08:24 Dose: Not Given Documented By: TERRIE Non-Admin Reason: Given in Dialysis Dextrose (D10) 250 mls @ 750 mls/hr IV Q15M PRN PRN Reason: per Hypoglycemia Standing Ord. Lidocaine (Lidocaine 4 % Patch Adh..Patch) 1 patch TRANSDERMA DAILY [facility] Last Admin: 10/06/23 08:13 Dose: 1 patch Documented By: TERRIE Midodrine (Midodrine Hcl 5 Mg Tablet) 5 mg PO TID [facility] Last Admin: 10/06/23 08:14 Dose: 5 mg Documented By: TERRIE Multi-Ingred Cream/Lotion/Oil/Oint (Mineral Oil/Petrolatum,White 106 Gm Tube) 1 appl TOPICAL BID [facility]; Protocol Last Admin: 10/06/23 08:15 Dose: Not Given Documented By: TERRIE Non-Admin Reason: Patient Refused Ondansetron HCl (Ondansetron Odt 4 Mg Tab.Rapdis) 4 mg TRANSLINGU Q6H PRN PRN Reason: Nausea and Vomiting Polyethylene Glycol (Polyethylene Glycol 3350 17 Gm Powd.Pack) 17 gm PO DAILY [facility] Last Admin: 10/06/23 08:13 Dose: 17 gm Documented By: TERRIE Sertraline HCl (Sertraline Hcl 25 Mg Tablet) 12.5 mg PO BEDTIME [facility] Last Admin: 10/05/23 21:21 Dose: 12.5 mg Documented By: HERMELINDO Trazodone HCl (Trazodone Hcl 25 Mg Halftab) 25 mg PO BEDTIME [facility] Last Admin: 10/05/23 21:22 Dose: 25 mg Documented By: HERMELINDO Labs 09/24/23 05:40 09/27/23 08:02 Assessment and Plan (1) Need for acute hemodialysis: Status: Acute Plan 53 years old male with PMH of DM2, HTN, Asthma who presented to ED After sustaining a fall and laying on the floor for 9 hours found to have severe acute kidney injury from rhabdomyolysis and hyperkalemia 1.CHITO and severe hyperkalemia and acute metabolic acidosis due to ATN from rhabdomyolysis and no renal recovery and started on HD, TTS, -permacath placed 07/16/23 , underwent catheter change 09/28, functioning well -receiving dialysis MWF -stable and well compensated at this time -bmp on 09/26 showed bicarb 17, creatinine 8.84, being followed by Nephrology. - on midodrine 5 mg t.i.d. and Florinef 0.1 mg daily 2.Chronic Leg and back pain Stable, continue gabapentin 100mg BID 3.Depression. unspecified -No behavioral issues, seen by psychiatry 08/23,on Abilify 2.5 mg daily low-dose since it can cause orthostasis, trazodone 25 mg at bedtime and Zoloft low-dose . -patient tolerating current medications 4.Acute?Rhabdomyolysis /Fall -resolved with volume -participating with physical therapy, eager to ambulate 5.Diabetes type 2 -stable blood sugars, last hemoglobin A1c 6.1 ,12/28/2022. 6.Morbid Obesity. BMI 49.2 Low-calorie diet/ weight management . Encourage ambulation. Heparin Full code reason for continued hospitalization: debilitated / depressed, safe discharge to short-term rehab. Quality Stroke Does the patient have a stroke diagnosis?: No VTE Prior VTE?: No VTE Risk Level:: Medical - moderate - high VTE Device Contraindication: N/A - Device Ordered VTE Drug Contraindication: N/A - Med Ordered
--- NOTE | 2023-10-06 15:29 | MHC.CM.PN ---
bed search in proogress
[2023-10-06 15:32] VITALS: BP 108/67; PULSE 99; RESP 20; TEMP 36; O2SAT 98
[2023-10-06] MEDS: Sertraline HCL 25 MG TABLET 12.5 MG PO (20:32)
[2023-10-06] MEDS: traZODone HCL 25 MG HALFTAB PO (20:32)
[2023-10-06] MEDS: Acetaminophen 325 MG TABLET 650 MG PO (20:33)
[2023-10-06] MEDS: Calcium Carbonate 750 MG TAB.CHEW PO (20:43)
[2023-10-06 23:57] VITALS: BP 99/56; PULSE 116; RESP 16; TEMP 36.6; O2SAT 97
[2023-10-07 07:29] VITALS: BP 114/68; PULSE 110; RESP 12; TEMP 36.6; O2SAT 97
[2023-10-07] MEDS: Gabapentin 100 MG CAPSULE PO ×2 (09:19→19:32)
[2023-10-07] MEDS: ARIPiprazole 5 MG TABLET 2.5 MG PO (09:19)
[2023-10-07] MEDS: Midodrine HCl 5 MG TABLET PO ×3 (09:20→19:39)
[2023-10-07] MEDS: Lidocaine 4 % Patch ADH..PATCH 1 PATCH TRANSDERMA (09:20)
[2023-10-07] MEDS: Fludrocortisone Acetate 0.1 MG TABLET PO (09:27)
[2023-10-07] MEDS: Heparin Sodium,Porcine 5,000 UNIT/ML VIAL 5000 UNIT SUBCUT ×3 (09:27→19:32)
[2023-10-07] MEDS: Acetaminophen 325 MG TABLET 650 MG PO ×2 (09:30→19:33)
[2023-10-07] MEDS: Fluticasone Propionate Nasal 16 GM SPRAY 2 SPRAY NOSTRIL-B (09:31)
--- NOTE | 2023-10-07 09:34 | PC.NURSE ---
Perma cath present right chest,CDI,#20 US guided IV present in LLA ,CDI,asymptomatic
[2023-10-07 12:50] VITALS: BP 94/55; PULSE 130; RESP 16; TEMP 36.6; O2SAT 99
[2023-10-07 15:06] VITALS: PULSE 106
[2023-10-07 15:48] LABS: Hematocrit 28.9 % (42.0-52.0); Hemoglobin 9.5 g/dl (14.0-18.0); Mean Corpuscular HGB Conc 32.9 g/dl (31.0-36.0); Mean Corpuscular Hemoglobin 29.9 pg (27.0-33.0); Mean Corpuscular Volume 90.9 fL (80.0-98.0); Mean Platelet Volume 8.5 fL (9.4-12.4); Platelet Count 411 X10*3/uL (160-400); Red Blood Count 3.18 X10*6/uL (4.60-5.80); White Blood Count 10.7 X10*3/uL (4.8-10.8)
[2023-10-07 15:57] LABS: Anion Gap 15 (12-20); Blood Urea Nitrogen 16 mg/dL (9-16); Calcium 10.1 mg/dL (8.4-10.2); Carbon Dioxide 21 mmol/L (22-29); Chloride 104 mmol/L (96-108); Creatinine Clr Calc Pharmacy 31.6; Estimated Glomerular Filt Rate 17; Glucose Random 102 mg/dL (60-115); Potassium 3.7 mmol/L (3.3-5.1); Sodium 136 mmol/L (135-145)
--- NOTE | 2023-10-07 16:05 | P.PNIM_ITS ---
Subjective Subjective Date of Service: 10/07/23 Interval History: Seen and examined this morning Follow-up for placement No overnight events no specific complaints Review of Systems Review of Systems: Yes all other systems are reviewed and are negative Constitutional Constitutional: Denies fever(s) Cardiovascular Cardiovascular: Denies chest pain and Denies dyspnea Respiratory Respiratory: Denies dyspnea Gastrointestinal Gastrointestinal: Denies abdominal pain Physical Exam 2 Vital Signs: Vital Signs: Last Vital Signs Temp 97.8 F 10/07/23 12:50 Pulse 106 H 10/07/23 15:06 Resp 16 10/07/23 12:50 BP 94/55 L 10/07/23 12:50 Pulse Ox 99 10/07/23 12:50 O2 Del Method Room Air 10/07/23 12:50 O2 Flow Rate 2 09/17/23 12:00 BMI result Body Mass Index 49.2 Const: General: cooperative, no acute distress, alert and awake Nutritional Appearance: obese Resp: Effort & Inspection: normal respiratory effort, able to speak in complete sentences, no respiratory distress and no use of accessory muscles Cardio: Rate: tachycardic GI: Inspection: No distended Neuro: General: moves all extremities and CN's II-XI intact bilaterally Psych: Affect: Blunted affect present Objective Data Active Medications Acetaminophen (Acetaminophen 325 Mg Tablet) 650 mg PO Q4H PRN PRN Reason: Pain, Moderate(Pain Scale 4-6) Last Admin: 10/07/23 09:30 Dose: 650 mg Documented By: ANTON Aripiprazole (Aripiprazole 5 Mg Tablet) 2.5 mg PO DAILY [facility] Last Admin: 10/07/23 09:19 Dose: 2.5 mg Documented By: ANTON Calcium Carbonate (Calcium Carbonate 750 Mg Tab.Chew) 750 mg PO Q6H PRN PRN Reason: Heartburn Last Admin: 10/06/23 20:43 Dose: 750 mg Documented By: KASI Fludrocortisone Acetate (Fludrocortisone Acetate 0.1 Mg Tablet) 0.1 mg PO DAILY [facility] Last Admin: 10/07/23 09:27 Dose: 0.1 mg Documented By: ANTON Fluticasone Propionate (Fluticasone Propionate Nasal 16 Gm [place]) 2 spray NOSTRIL-B DAILY [facility] Last Admin: 10/07/23 09:31 Dose: 2 spray Documented By: ANTON Gabapentin (Gabapentin 100 Mg Capsule) 100 mg PO BID [facility] Last Admin: 10/07/23 09:19 Dose: 100 mg Documented By: ANTON Heparin Sodium (Porcine) (Heparin Sodium,Porcine 5,000 Unit/Ml Vial) 5,000 unit SUBCUT TID [facility] Last Admin: 10/07/23 14:25 Dose: 5,000 unit Documented By: ANTON Heparin Sodium (Porcine) (Heparin Sodium,Porcine 1,000 Unit/Ml Vial) 4,000 unit IV MOWEFR [facility] Last Admin: 10/06/23 12:37 Dose: Not Given Documented By: TERRIE Non-Admin Reason: Given in Dialysis Heparin Sodium (Porcine) (Heparin Sodium,Porcine 5,000 Unit/Ml Vial) 5,[facility] Last Admin: 10/06/23 08:24 Dose: Not Given Documented By: TERRIE Non-Admin Reason: Given in Dialysis Dextrose (D10) 250 mls @ 750 mls/hr IV Q15M PRN PRN Reason: per Hypoglycemia Standing Ord. Lidocaine (Lidocaine 4 % Patch Adh..Patch) 1 patch TRANSDERMA DAILY [facility] Last Admin: 10/07/23 09:20 Dose: 1 patch Documented By: ANTON Midodrine (Midodrine Hcl 5 Mg Tablet) 5 mg PO TID [facility] Last Admin: 10/07/23 14:26 Dose: 5 mg Documented By: ANTON Multi-Ingred Cream/Lotion/Oil/Oint (Mineral Oil/Petrolatum,White 106 Gm Tube) 1 appl TOPICAL BID [facility]; Protocol Last Admin: 10/07/23 09:26 Dose: Not Given Documented By: ANTON Non-Admin Reason: Patient Refused Ondansetron HCl (Ondansetron Odt 4 Mg Tab.Rapdis) 4 mg TRANSLINGU Q6H PRN PRN Reason: Nausea and Vomiting Polyethylene Glycol (Polyethylene Glycol 3350 17 Gm Powd.Pack) 17 gm PO DAILY [facility] Last Admin: 10/07/23 09:23 Dose: Not Given Documented By: ANTON Non-Admin Reason: Patient Refused Sertraline HCl (Sertraline Hcl 25 Mg Tablet) 12.5 mg PO BEDTIME [facility] Last Admin: 10/06/23 20:32 Dose: 12.5 mg Documented By: HO.[place] Trazodone HCl (Trazodone Hcl 25 Mg Halftab) 25 mg PO BEDTIME [facility] Last Admin: 10/06/23 20:32 Dose: 25 mg Documented By: KASI Labs 10/07/23 15:23 10/07/23 15:23 Labs: Laboratory Results - last 24 hr 10/07/23 15:23 MCV 90.9 MCH 29.9 MCHC 32.9 RDW 15.0 Plt Count 411 H D MPV 8.5 L Absolute Nucleated RBC 0.000 Nucleated RBC % (auto) 0.0 Anion Gap 15 Estim Creat Clear Calc 31.6 Estimated GFR 17 Random Glucose 102 Calcium 10.1 Assessment and Plan (1) ESRD needing dialysis: Status: Acute (2) Major depression, recurrent: Status: Acute Plan 53 years old male with PMH of DM2, HTN, Asthma who presented to ED After sustaining a fall and laying on the floor for 9 hours found to have severe acute kidney injury from rhabdomyolysis and hyperkalemia CHITO and severe hyperkalemia and acute metabolic acidosis due to ATN from rhabdomyolysis and no renal recovery and started on HD, TTS, permacath placed 07/16/23 , underwent catheter change 09/28, functioning well receiving dialysis MWF stable and well compensated at this time bmp stable 10/06 on midodrine 5 mg t.i.d. and Florinef 0.1 mg daily Chronic Leg and back pain Stable, continue gabapentin 100mg BID dysphagia on NDD3 diet Depression. unspecified -No behavioral issues, seen by psychiatry 08/23,on Abilify 2.5 mg daily low-dose since it can cause orthostasis, trazodone 25 mg at bedtime and Zoloft low-dose . -patient tolerating current medications Acute?Rhabdomyolysis /Fall -resolved with volume -participating with physical therapy, eager to ambulate Diabetes type 2 -stable blood sugars, last hemoglobin A1c 6.1 ,12/28/2022. Morbid Obesity. BMI 49.2 Low-calorie diet/ weight management . Encourage ambulation. Heparin Full code reason for continued hospitalization: debilitated / depressed, safe discharge to short-term rehab. Quality Stroke Does the patient have a stroke diagnosis?: No VTE Prior VTE?: No VTE Risk Level:: Medical - moderate - high VTE Device Contraindication: N/A - Device Ordered VTE Drug Contraindication: N/A - Med Ordered
[2023-10-07 16:07] VITALS: BP 107/65; PULSE 109; RESP 18; TEMP 36.3; O2SAT 98
[2023-10-07] MEDS: traZODone HCL 25 MG HALFTAB PO (19:31)
[2023-10-07] MEDS: Sertraline HCL 25 MG TABLET 12.5 MG PO (19:32)
[2023-10-08] VITALS (7 sets, daily range): BP systolic 100–114; BP diastolic 55–76; PULSE 112–125; RESP 16–20; TEMP 36.2–36.7; O2SAT 94–99
--- NOTE | 2023-10-08 08:24 | PC.NURSE ---
HR elevated 123,patient c/o stomaache,nausea,PA Lora notified
--- NOTE | 2023-10-08 08:44 | ECG_ITS ---
Test Reason : tachycardia Blood Pressure : / mmHG Vent. Rate : 121 BPM Atrial Rate : 121 BPM P-R Int : 142 ms QRS Dur : 074 ms QT Int : 312 ms P-R-T Axes : 042 024 055 degrees QTc Int : 443 ms Sinus tachycardia Otherwise normal ECG When compared with ECG of 20-JUL-2023 20:58, No significant change was found Referred By: Lora Nolan Electronically Signed By:CEDRIC SKINNER
[2023-10-08] MEDS: Lidocaine 4 % Patch ADH..PATCH 1 PATCH TRANSDERMA (08:59)
[2023-10-08] MEDS: Heparin Sodium,Porcine 5,000 UNIT/ML VIAL 5000 UNIT SUBCUT (09:02)
[2023-10-08] MEDS: ARIPiprazole 5 MG TABLET 2.5 MG PO (09:03)
[2023-10-08] MEDS: Ondansetron ODT 4 MG TAB.RAPDIS TRANSLINGU (09:07)
[2023-10-08] MEDS: Acetaminophen 325 MG TABLET 650 MG PO (09:07)
[2023-10-08] MEDS: Fluticasone Propionate Nasal 16 GM SPRAY 2 SPRAY NOSTRIL-B (09:10)
[2023-10-08] MEDS: Gabapentin 100 MG CAPSULE PO ×2 (09:10→20:20)
[2023-10-08] MEDS: Midodrine HCl 5 MG TABLET PO ×3 (09:11→20:20)
[2023-10-08] MEDS: Fludrocortisone Acetate 0.1 MG TABLET PO (09:11)
[2023-10-08 10:39] LABS: MANUAL DIFF FLAG NO
[2023-10-08 10:41] LABS: Basophils Percent Auto 0.2 % (0-2); Eosinophils Absolute Auto 0.2 X10*3/uL (0.0-0.4); Hematocrit 27.2 % (42.0-52.0); Hemoglobin 9.1 g/dl (14.0-18.0); Imm Gran Abs Auto 0.06 X10*3/uL (0.00-0.03); Imm Gran Pct Auto 0.7 % (0.0-0.4); Lymphocytes Absolute Auto 1.2 X10*3/uL (1.2-4.9); Mean Corpuscular HGB Conc 33.5 g/dl (31.0-36.0); Mean Corpuscular Hemoglobin 30.8 pg (27.0-33.0); Mean Corpuscular Volume 92.2 fL (80.0-98.0); Mean Platelet Volume 8.2 fL (9.4-12.4); Monocytes Absolute Auto 0.4 X10*3/uL (0.1-1.2); Monocytes Percent Auto 4.8 % (2-11); Neutrophils Absolute Auto 6.2 x10*3/uL (2.0-8.3); Neutrophils Percent Auto 77.3 % (45-73); Platelet Count 327 X10*3/uL (160-400); Red Blood Count 2.95 X10*6/uL (4.60-5.80); White Blood Count 8.1 X10*3/uL (4.8-10.8)
--- NOTE | 2023-10-08 11:13 | P.PNNP_ITS ---
Subjective Subjective Date of Service: 10/08/23 Principal diagnosis: Elevated troponins Interval history: Seen and examined this morning Follow-up for placement No overnight events no specific complaints Physical Exam 2 Vital Signs: Vital Signs: Last Vital Signs Temp 98.1 F 10/08/23 07:59 Pulse 123 H 10/08/23 08:21 Resp 18 10/08/23 07:59 BP 105/68 10/08/23 07:59 Pulse Ox 95 10/08/23 07:59 O2 Del Method Room Air 10/08/23 07:59 O2 Flow Rate 2 09/17/23 12:00 BMI result Body Mass Index 49.2 Const: Other: General awake alert in no distress anicteric sclera Neck no JVD. CVS regular rate rhythm, Respiratory lungs clear to auscultation, no respiratory distress, no wheeze, no rhonchi. Gastrointestinal abdomen soft, non tender, bowel sounds audible. Extremities no edema. Right shoulder limited range of motion. Neuro non focal, speech clear. Skin no rash Psych appropriate affect Objective Data Labs 10/08/23 10:17 10/08/23 10:17 Labs: Laboratory Results - last 24 hr 10/07/23 10/08/23 15:23 10:17 WBC 10.7 8.1 RBC 3.18 L 2.95 L Hgb 9.5 L 9.1 L Hct 28.9 L 27.2 L MCV 90.9 92.2 MCH 29.9 30.8 MCHC 32.9 33.5 RDW 15.0 15.0 Plt Count 411 H D 327 MPV 8.5 L 8.2 L Immature Gran % (Auto) 0.7 H Neut % (Auto) 77.3 H Lymph % (Auto) 15.0 L [place] % (Auto) 4.8 Eos % (Auto) 2.0 Baso % (Auto) 0.2 Lymph # (Auto) 1.2 [place] # (Auto) 0.4 Eos # (Auto) 0.2 Baso # (Auto) 0.0 Abs Immat Gran (auto) 0.06 H Absolute Neuts (auto) 6.2 Absolute Nucleated RBC 0.000 0.000 Nucleated RBC % (auto) 0.0 0.0 Sodium 136 Potassium 3.7 Chloride 104 Carbon Dioxide 21 L Anion Gap 15 BUN 16 Creatinine 3.85 H Estim Creat Clear Calc 31.6 Estimated GFR 17 Random Glucose 102 Calcium 10.1 Microbiology Microbiology Results: Microbiology 07/20/23 22:49 Blood - Venous Blood Culture - Final No growth after 5 days. 07/20/23 22:49 Blood - Venous Blood Culture - Final No growth after 5 days. 07/12/23 12:30 Blood - Venous Blood Culture - Final No growth after 5 days. 07/12/23 12:15 Blood - Venous Blood Culture - Final No growth after 5 days. 07/12/23 Unknown Urine Catheterized - Straight Catheter Urine Culture - Final No growth. Procedures Date of Service Date of Service: 10/08/23 Assessment & Plan Assessment and plan (1) Acute renal failure: Status: Acute Plan CHITO and severe hyperkalemia due to rhabdomyolysis. He has tubular injury due to rhabdomyolysis. Hyperkalemia Catheter changed due to dysfunction Received adequate HD with new catheter UO has increased Cr has not increased much Will take of fHD and watch Time Spent With Patient Time: Total time managing care of this patient today ____ minutes. Progress Note: Quality Stroke Does the patient have a stroke diagnosis?: No
[2023-10-08 11:15] LABS: Blood Urea Nitrogen 14 mg/dL (9-16); Calcium 9.2 mg/dL (8.4-10.2); Creatinine Clr Calc Pharmacy 41.2; Estimated Glomerular Filt Rate 22; Glucose Random 96 mg/dL (60-115)
[2023-10-08 11:26] LABS: Anion Gap 14 (12-20); Carbon Dioxide 24 mmol/L (22-29); Chloride 103 mmol/L (96-108); Sodium 138 mmol/L (135-145)
--- NOTE | 2023-10-08 12:14 | HO.PM.IMPN ---
Subjective Subjective Date of Service: 10/08/23 Interval History: seen and examined this morning follow up for placement reporting some diarrhea overnight and some nausea this am. no abdominal pain started on HD, but increasing UO and stable renal function, so session of HD was stopped early today Review of Systems Review of Systems: Yes all other systems are reviewed and are negative Constitutional Constitutional: Denies chills and Denies fever(s) Cardiovascular Cardiovascular: Denies chest pain, Denies palpitations and Denies dyspnea Respiratory Respiratory: Denies cough and Denies dyspnea Gastrointestinal Gastrointestinal: Denies abdominal pain, Reports diarrhea and Reports nausea Endocrine Endocrine: Denies palpitations Physical Exam Vital Signs: Vital Signs: Last Vital Signs Temp 97.2 F 10/08/23 12:02 Pulse 112 H 10/08/23 12:02 Resp 18 10/08/23 12:02 BP 108/71 10/08/23 12:02 Pulse Ox 98 10/08/23 12:02 O2 Del Method Room Air 10/08/23 12:02 O2 Flow Rate 2 09/17/23 12:00 BMI result Body Mass Index 49.2 Const: General: cooperative, comfortable, alert and awake Nutritional Appearance: obese Orientation/consciousness: patient oriented x3 Resp: Effort & Inspection: normal respiratory effort, able to speak in complete sentences, no respiratory distress and no use of accessory muscles Cardio: Rate: tachycardic GI: Inspection: No distended Palpation (GI): Soft to palpation and nontender Neuro: General: patient oriented x3, moves all extremities and CN's II-XI intact bilaterally Extrem: Other: dry skin b/l feet, no erythema calves nontender Psych: Affect: Blunted affect present Objective Data Active Medications Acetaminophen (Acetaminophen 325 Mg Tablet) 650 mg PO Q4H PRN PRN Reason: Pain, Moderate(Pain Scale 4-6) Last Admin: 10/08/23 09:07 Dose: 650 mg Documented By: ANTON Aripiprazole (Aripiprazole 5 Mg Tablet) 2.5 mg PO DAILY [facility] Last Admin: 10/08/23 09:03 Dose: 2.5 mg Documented By: ANTON Calcium Carbonate (Calcium Carbonate 750 Mg Tab.Chew) 750 mg PO Q6H PRN PRN Reason: Heartburn Last Admin: 10/06/23 20:43 Dose: 750 mg Documented By: KASI Fludrocortisone Acetate (Fludrocortisone Acetate 0.1 Mg Tablet) 0.1 mg PO DAILY [facility] Last Admin: 10/08/23 09:11 Dose: 0.1 mg Documented By: ANTON Fluticasone Propionate (Fluticasone Propionate Nasal 16 Gm [place]) 2 spray NOSTRIL-B DAILY [facility] Last Admin: 10/08/23 09:10 Dose: 2 spray Documented By: ANTON Gabapentin (Gabapentin 100 Mg Capsule) 100 mg PO BID [facility] Last Admin: 10/08/23 09:10 Dose: 100 mg Documented By: ANTON Heparin Sodium (Porcine) (Heparin Sodium,Porcine 5,000 Unit/Ml Vial) 5,000 unit SUBCUT TID [facility] Last Admin: 10/08/23 09:02 Dose: 5,000 unit Documented By: ANTON Heparin Sodium (Porcine) (Heparin Sodium,Porcine 1,000 Unit/Ml Vial) 4,000 unit IV MOWEFR [facility] Last Admin: 10/06/23 12:37 Dose: Not Given Documented By: TERRIE Non-Admin Reason: Given in Dialysis Heparin Sodium (Porcine) (Heparin Sodium,Porcine 5,000 Unit/Ml Vial) 5,000 unit IVPUSH MOWEFR [facility] Last Admin: 10/08/23 12:12 Dose: Not Given Documented By: ANTON Non-Admin Reason: Given in Dialysis Dextrose (D10) 250 mls @ 750 mls/hr IV Q15M PRN PRN Reason: per Hypoglycemia Standing Ord. Lidocaine (Lidocaine 4 % Patch Adh..Patch) 1 patch TRANSDERMA DAILY [facility] Last Admin: 10/08/23 08:59 Dose: 1 patch Documented By: ANTON Midodrine (Midodrine Hcl 5 Mg Tablet) 5 mg PO TID [facility] Last Admin: 10/08/23 09:11 Dose: 5 mg Documented By: ANTON Multi-Ingred Cream/Lotion/Oil/Oint (Mineral Oil/Petrolatum,White 106 Gm Tube) 1 appl TOPICAL BID [facility]; Protocol Last Admin: 10/08/23 09:12 Dose: Not Given Documented By: ANTON Non-Admin Reason: Patient Refused Ondansetron HCl (Ondansetron Odt 4 Mg Tab.Rapdis) 4 mg TRANSLINGU Q6H PRN PRN Reason: Nausea and Vomiting Last Admin: 10/08/23 09:07 Dose: 4 mg Documented By: ANTON Polyethylene Glycol (Polyethylene Glycol 3350 17 Gm Powd.Pack) 17 gm PO DAILY [facility] Last Admin: 10/08/23 09:10 Dose: Not Given Documented By: ANTON Non-Admin Reason: loose stools Sertraline HCl (Sertraline Hcl 25 Mg Tablet) 12.5 mg PO BEDTIME [facility] Last Admin: 10/07/23 19:32 Dose: 12.5 mg Documented By: KASI Trazodone HCl (Trazodone Hcl 25 Mg Halftab) 25 mg PO BEDTIME [facility] Last Admin: 10/07/23 19:31 Dose: 25 mg Documented By: KASI Labs 10/08/23 10:17 10/08/23 10:17 Labs: Laboratory Results - last 24 hr 10/07/23 10/08/23 15:23 10:17 MCV 90.9 92.2 MCH 29.9 30.8 MCHC 32.9 33.5 RDW 15.0 15.0 Plt Count 411 H D 327 MPV 8.5 L 8.2 L Immature Gran % (Auto) 0.7 H Neut % (Auto) 77.3 H Lymph % (Auto) 15.0 L [place] % (Auto) 4.8 Eos % (Auto) 2.0 Baso % (Auto) 0.2 Lymph # (Auto) 1.2 [place] # (Auto) 0.4 Eos # (Auto) 0.2 Baso # (Auto) 0.0 Abs Immat Gran (auto) 0.06 H Absolute Neuts (auto) 6.2 Absolute Nucleated RBC 0.000 0.000 Nucleated RBC % (auto) 0.0 0.0 Anion Gap 15 14 Estim Creat Clear Calc 31.6 41.2 Estimated GFR 17 22 Random Glucose 102 96 Calcium 10.1 9.2 D Assessment and Plan (1) ESRD needing dialysis: Status: Acute (2) Hypokalemia: Status: Acute Plan 53 years old male with PMH of DM2, HTN, Asthma who presented to ED After sustaining a fall and laying on the floor for 9 hours found to have severe acute kidney injury from rhabdomyolysis and hyperkalemia CHITO and severe hyperkalemia and acute metabolic acidosis due to ATN from rhabdomyolysis and no renal recovery and started on HD, TTS permacath placed 07/16/23 , underwent catheter change 09/28, functioning well receiving dialysis MWF stable and well compensated at this time on midodrine 5 mg t.i.d. and Florinef 0.1 mg daily UO increasing and renal function stable - plan to hold HD and watch renal function hypokalemia replace po and follow BMP since not getting HD magnesium level pending diarrhea had 2 episodes of diarrhea overnight if continues consider stool studies Chronic Leg and back pain Stable, continue gabapentin 100mg BID dysphagia on NDD3 diet Depression. unspecified No behavioral issues, seen by psychiatry 08/23,on Abilify 2.5 mg daily low-dose since it can cause orthostasis, trazodone 25 mg at bedtime and Zoloft low-dose . patient tolerating current medications Acute?Rhabdomyolysis /Fall resolved with volume participating with physical therapy Diabetes type 2 stable blood sugars, last hemoglobin A1c 6.1 ,12/28/2022. follow POCs Morbid Obesity. BMI 49.2 Low-calorie diet/ weight management. Encourage ambulation. Heparin Full code reason for continued hospitalization: debilitated; safe discharge to short-term rehab. monitor UO, renal function Quality Stroke Does the patient have a stroke diagnosis?: No VTE Prior VTE?: No VTE Risk Level:: Medical - moderate - high VTE Device Contraindication: N/A - Device Ordered VTE Drug Contraindication: N/A - Med Ordered
[2023-10-08] MEDS: Potassium Chloride Packet 20 MEQ PACKET 40 MEQ PO (12:17)
--- NOTE | 2023-10-08 12:26 | PC.NURSE ---
Patient became weak and dizzy while on a commode,assisted back to bed,BP 108/67 Pulse 123 ,patient states he feels better at present,,BRYAN Paulino notified
[2023-10-08 12:33] LABS: Glucose, Whole Blood 96 mg/dL (60-115)
[2023-10-08 12:46] LABS: Magnesium 1.9 mg/dL (1.6-2.6)
--- NOTE | 2023-10-08 14:51 | MHC.CM.PN ---
PER ROUNDS PT IS NOW HAVING LOOSE SROOLS AND NOT READY FOR DC AT THIS TIME
[2023-10-08] MEDS: Apixaban 5 MG TABLET 10 MG PO (15:40)
[2023-10-08 16:10] LABS: Glucose, Whole Blood 89 mg/dL (60-115)
[2023-10-08 19:50] LABS: Glucose, Whole Blood 83 mg/dL (60-115)
[2023-10-08] MEDS: Sertraline HCL 25 MG TABLET 12.5 MG PO (20:20)
[2023-10-08] MEDS: traZODone HCL 25 MG HALFTAB PO (20:20)
[2023-10-09 07:45] LABS: Glucose, Whole Blood 88 mg/dL (60-115)
[2023-10-09 08:00] VITALS: BP 106/57; PULSE 110; RESP 18; TEMP 36; O2SAT 96
[2023-10-09] MEDS: Lidocaine 4 % Patch ADH..PATCH 1 PATCH TRANSDERMA (09:04)
[2023-10-09] MEDS: Fludrocortisone Acetate 0.1 MG TABLET PO (09:04)
[2023-10-09] MEDS: Gabapentin 100 MG CAPSULE PO ×2 (09:04→20:11)
[2023-10-09] MEDS: Midodrine HCl 5 MG TABLET PO ×3 (09:04→20:11)
[2023-10-09] MEDS: Fluticasone Propionate Nasal 16 GM SPRAY 2 SPRAY NOSTRIL-B (09:05)
[2023-10-09] MEDS: ARIPiprazole 5 MG TABLET 2.5 MG PO (09:05)
[2023-10-09] MEDS: Apixaban 5 MG TABLET 10 MG PO ×2 (09:05→20:11)
--- NOTE | 2023-10-09 09:33 | HO.PM.IMPN ---
Subjective Subjective Date of Service: 10/09/23 Interval History: Seen and examined this morning Follow-up for placement, acute on chronic right lower extremity DVT No shortness of breath, no chest pain Review of Systems Review of Systems: Yes all other systems are reviewed and are negative Constitutional Constitutional: Denies chills and Denies fever(s) ENT Ears, Nose, Mouth, and Throat: Denies dizziness Cardiovascular Cardiovascular: Denies chest pain, Denies palpitations and Denies dyspnea Respiratory Respiratory: Denies cough and Denies dyspnea Neurologic Neurologic: Denies dizziness Endocrine Endocrine: Denies palpitations Physical Exam Vital Signs: Vital Signs: Last Vital Signs Temp 96.8 F 10/09/23 08:00 Pulse 110 H 10/09/23 08:00 Resp 18 10/09/23 08:00 BP 106/57 L 10/09/23 08:00 Pulse Ox 96 10/09/23 08:00 O2 Del Method Room Air 10/09/23 08:00 O2 Flow Rate 2 09/17/23 12:00 BMI result Body Mass Index 49.2 Const: General: cooperative, comfortable, no acute distress, alert and awake Nutritional Appearance: obese Orientation/consciousness: patient oriented x3 Chest: Other: right permcath Resp: Effort & Inspection: normal respiratory effort, able to speak in complete sentences, no respiratory distress and no use of accessory muscles Cardio: Rate: tachycardic GI: Inspection: No distended Palpation (GI): Soft to palpation and nontender Neuro: General: patient oriented x3, moves all extremities and CN's II-XI intact bilaterally Extrem: Other: dry skin b/l feet, no erythema no leg swelling Psych: Affect: Blunted affect present Objective Data Active Medications Acetaminophen (Acetaminophen 325 Mg Tablet) 650 mg PO Q4H PRN PRN Reason: Pain, Moderate(Pain Scale 4-6) Last Admin: 10/08/23 09:07 Dose: 650 mg Documented By: ANTON Apixaban (Apixaban 5 Mg Tablet) 10 mg PO BID [facility] Stop: 10/15/23 09:01 Last Admin: 10/09/23 09:05 Dose: 10 mg Documented By: MIKE Apixaban (Apixaban 5 Mg Tablet) 5 mg PO BID [facility] Stop: 02/25/25 21:01 Aripiprazole (Aripiprazole 5 Mg Tablet) 2.5 mg PO DAILY [facility] Last Admin: 10/09/23 09:05 Dose: 2.5 mg Documented By: MIKE Calcium Carbonate (Calcium Carbonate 750 Mg Tab.Chew) 750 mg PO Q6H PRN PRN Reason: Heartburn Last Admin: 10/06/23 20:43 Dose: 750 mg Documented By: KASI Fludrocortisone Acetate (Fludrocortisone Acetate 0.1 Mg Tablet) 0.1 mg PO DAILY [facility] Last Admin: 10/09/23 09:04 Dose: 0.1 mg Documented By: MIKE Fluticasone Propionate (Fluticasone Propionate Nasal 16 Gm [place]) 2 spray NOSTRIL-B DAILY [facility] Last Admin: 10/09/23 09:05 Dose: 2 spray Documented By: MIKE Gabapentin (Gabapentin 100 Mg Capsule) 100 mg PO BID [facility] Last Admin: 10/09/23 09:04 Dose: 100 mg Documented By: MIKE Glucose (Glucose Gel 15 Gm Gel..Gram.) 15 gm PO Q15M PRN; Protocol PRN Reason: per Hypoglycemia Standing Ord. Heparin Sodium (Porcine) (Heparin Sodium,Porcine 1,000 Unit/Ml Vial) 4,000 unit IV [facility] Last Admin: 10/08/23 14:46 Dose: Not Given Documented By: ANTON Non-Admin Reason: Off unit: Dialysis Heparin Sodium (Porcine) (Heparin Sodium,Porcine 5,000 Unit/Ml Vial) 5,000 unit IVPUSH [facility] Last Admin: 10/08/23 12:12 Dose: Not Given Documented By: ANTON Non-Admin Reason: Given in Dialysis Dextrose (D10) 250 mls @ 750 mls/hr IV Q15M PRN PRN Reason: per Hypoglycemia Standing Ord. Dextrose (D10) 250 mls @ 750 mls/hr IV Q15M PRN; Protocol PRN Reason: per Hypoglycemia Standing Ord. Lidocaine (Lidocaine 4 % Patch Adh..Patch) 1 patch TRANSDERMA DAILY [facility] Last Admin: 10/09/23 09:04 Dose: 1 patch Documented By: MIKE Midodrine (Midodrine Hcl 5 Mg Tablet) 5 mg PO TID [facility] Last Admin: 10/09/23 09:04 Dose: 5 mg Documented By: MIKE Multi-Ingred Cream/Lotion/Oil/Oint (Mineral Oil/Petrolatum,White 106 Gm Tube) 1 appl TOPICAL BID [facility]; Protocol Last Admin: 10/09/23 09:10 Dose: Not Given Documented By: MIKE Non-Admin Reason: Patient Refused Ondansetron HCl (Ondansetron Odt 4 Mg Tab.Rapdis) 4 mg TRANSLINGU Q6H PRN PRN Reason: Nausea and Vomiting Last Admin: 10/08/23 09:07 Dose: 4 mg Documented By: ANTON Polyethylene Glycol (Polyethylene Glycol 3350 17 Gm Powd.Pack) 17 gm PO DAILY [facility] Last Admin: 10/09/23 09:10 Dose: Not Given Documented By: MIKE Non-Admin Reason: Patient Refused Sertraline HCl (Sertraline Hcl 25 Mg Tablet) 12.5 mg PO BEDTIME [facility] Last Admin: 10/08/23 20:20 Dose: 12.5 mg Documented By: RICARDO Trazodone HCl (Trazodone Hcl 25 Mg Halftab) 25 mg PO BEDTIME [facility] Last Admin: 10/08/23 20:20 Dose: 25 mg Documented By: RICARDO Labs 10/08/23 10:17 10/08/23 10:17 Labs: Laboratory Results - last 24 hr 10/08/23 10/08/23 10/08/23 10:17 12:29 15:42 MCV 92.2 MCH 30.8 MCHC 33.5 RDW 15.0 Plt Count 327 MPV 8.2 L Immature Gran % (Auto) 0.7 H Neut % (Auto) 77.3 H Lymph % (Auto) 15.0 L [place] % (Auto) 4.8 Eos % (Auto) 2.0 Baso % (Auto) 0.2 Lymph # (Auto) 1.2 [place] # (Auto) 0.4 Eos # (Auto) 0.2 Baso # (Auto) 0.0 Abs Immat Gran (auto) 0.06 H Absolute Neuts (auto) 6.2 Absolute Nucleated RBC 0.000 Nucleated RBC % (auto) 0.0 Anion Gap 14 Estim Creat Clear Calc 41.2 Estimated GFR 22 POC Glucose 96 89 Random Glucose 96 Calcium 9.2 D Magnesium 1.9 10/08/23 10/09/23 19:17 07:30 MCV MCH MCHC RDW Plt Count MPV Immature Gran % (Auto) Neut % (Auto) Lymph % (Auto) [place] % (Auto) Eos % (Auto) Baso % (Auto) Lymph # (Auto) [place] # (Auto) Eos # (Auto) Baso # (Auto) Abs Immat Gran (auto) Absolute Neuts (auto) Absolute Nucleated RBC Nucleated RBC % (auto) Anion Gap Estim Creat Clear Calc Estimated GFR POC Glucose 83 88 Random Glucose Calcium Magnesium Assessment and Plan (1) Acute DVT (deep venous thrombosis): Status: Acute Plan 53 years old male with PMH of DM2, HTN, Asthma who presented to ED After sustaining a fall and laying on the floor for 9 hours found to have severe acute kidney injury from rhabdomyolysis and hyperkalemia acute on chronic DVT in right common femoral vein started on eliquis 10bid x7 days then 5 bid thereafter CHITO and severe hyperkalemia and acute metabolic acidosis due to ATN from rhabdomyolysis and no renal recovery and started on HD, TTS permacath placed 07/16/23 , underwent catheter change 09/28, functioning well receiving dialysis MWF stable and well compensated at this time on midodrine 5 mg t.i.d. and Florinef 0.1 mg daily UO increasing and renal function stable - plan to hold HD and watch renal function, monitor dialy hypokalemia replace po and follow BMP since not getting HD magnesium level pending diarrhea had 2 episodes of diarrhea overnight if continues consider stool studies Chronic Leg and back pain Stable, continue gabapentin 100mg BID dysphagia on NDD3 diet Depression. unspecified No behavioral issues, seen by psychiatry 08/23,on Abilify 2.5 mg daily low-dose since it can cause orthostasis, trazodone 25 mg at bedtime and Zoloft low-dose . patient tolerating current medications Acute?Rhabdomyolysis /Fall resolved with volume participating with physical therapy Diabetes type 2 stable blood sugars, last hemoglobin A1c 6.1 ,12/28/2022. follow POCs Morbid Obesity. BMI 49.2 Low-calorie diet/ weight management. Encourage ambulation. eliquis Full code reason for continued hospitalization: debilitated; safe discharge to short-term rehab. monitor UO, renal function Quality Stroke Does the patient have a stroke diagnosis?: No VTE Prior VTE?: No VTE Risk Level:: Medical - moderate - high VTE Device Contraindication: N/A - Device Ordered VTE Drug Contraindication: N/A - Med Ordered
[2023-10-09 11:16] LABS: Hematocrit 28.3 % (42.0-52.0); Hemoglobin 9.2 g/dl (14.0-18.0); Mean Corpuscular HGB Conc 32.5 g/dl (31.0-36.0); Mean Corpuscular Hemoglobin 30.1 pg (27.0-33.0); Mean Corpuscular Volume 92.5 fL (80.0-98.0); Mean Platelet Volume 8.1 fL (9.4-12.4); Platelet Count 451 X10*3/uL (160-400); Red Blood Count 3.06 X10*6/uL (4.60-5.80); Red Cell Distribution Width 15.1 % (11.0-16.0); White Blood Count 11.2 X10*3/uL (4.8-10.8)
[2023-10-09 11:30] LABS: Anion Gap 17 (12-20); Blood Urea Nitrogen 20 mg/dL (9-16); Calcium 9.7 mg/dL (8.4-10.2); Carbon Dioxide 20 mmol/L (22-29); Chloride 106 mmol/L (96-108); Creatinine Clr Calc Pharmacy 31.5; Estimated Glomerular Filt Rate 16; Glucose Random 89 mg/dL (60-115); Potassium 3.5 mmol/L (3.3-5.1); Sodium 139 mmol/L (135-145)
[2023-10-09 15:35] VITALS: BP 106/64; PULSE 108; RESP 18; TEMP 36.8; O2SAT 96
[2023-10-09 16:17] LABS: Glucose, Whole Blood 82 mg/dL (60-115)
[2023-10-09] MEDS: Acetaminophen 325 MG TABLET 650 MG PO (20:10)
[2023-10-09] MEDS: traZODone HCL 25 MG HALFTAB PO (20:11)
[2023-10-09] MEDS: Sertraline HCL 25 MG TABLET 12.5 MG PO (20:11)
[2023-10-09 20:52] LABS: Glucose, Whole Blood 75 mg/dL (60-115)
[2023-10-09 23:49] VITALS: BP 110/62; PULSE 110; RESP 17; TEMP 36; O2SAT 96
[2023-10-10 06:58] LABS: Glucose, Whole Blood 83 mg/dL (60-115)
--- NOTE | 2023-10-10 07:13 | P.PNIM_ITS ---
Subjective Subjective Date of Service: 10/10/23 Interval History: Seen and examined this morning Follow-up for placement, acute on chronic right lower extremity DVT No shortness of breath, no chest pain. Reports diarrhea x4 last 2 days. No abd pain, n/v. Remains tachycardic Review of Systems Review of Systems: Yes all other systems are reviewed and are negative Constitutional Constitutional: Denies chills and Denies fever(s) ENT Ears, Nose, Mouth, and Throat: Denies dizziness Cardiovascular Cardiovascular: Denies chest pain, Denies palpitations and Denies dyspnea Respiratory Respiratory: Denies cough and Denies dyspnea Neurologic Neurologic: Denies dizziness Endocrine Endocrine: Denies palpitations Physical Exam 2 Vital Signs: Vital Signs: Last Vital Signs Temp 96.8 F 10/09/23 23:49 Pulse 110 H 10/09/23 23:49 Resp 17 10/09/23 23:49 BP 110/62 10/09/23 23:49 Pulse Ox 96 10/09/23 23:49 O2 Del Method Room Air 10/09/23 23:49 O2 Flow Rate 2 09/17/23 12:00 BMI result Body Mass Index 49.2 Constitutional - Awake and Alert, No apparent distress Eyes - PERRLA, EOMI Cardiovascular - S1S2, RRR, No edema Respiratory - Normal lung expansion, Normal respiratory effort, No respiratory distress, CTA bilaterally Gastrointestinal - NT / ND; +BS; No rebound or guarding - No CVA tenderness Extremities - R calf tenderness , no swelling Skin - Warm/Dry Neurological - Alert & oriented x3 Psychological - Appropriate affect Objective Data Active Medications Acetaminophen (Acetaminophen 325 Mg Tablet) 650 mg PO Q4H PRN PRN Reason: Pain, Moderate(Pain Scale 4-6) Last Admin: 10/09/23 20:10 Dose: 650 mg Documented By: RICARDO Apixaban (Apixaban 5 Mg Tablet) 10 mg PO BID [facility] Stop: 10/15/23 09:01 Last Admin: 10/09/23 20:11 Dose: 10 mg Documented By: RICARDO Apixaban (Apixaban 5 Mg Tablet) 5 mg PO BID [facility] Stop: 02/25/25 21:01 Aripiprazole (Aripiprazole 5 Mg Tablet) 2.5 mg PO DAILY [facility] Last Admin: 10/09/23 09:05 Dose: 2.5 mg Documented By: MIKE Calcium Carbonate (Calcium Carbonate 750 Mg Tab.Chew) 750 mg PO Q6H PRN PRN Reason: Heartburn Last Admin: 10/06/23 20:43 Dose: 750 mg Documented By: KASI Fludrocortisone Acetate (Fludrocortisone Acetate 0.1 Mg Tablet) 0.1 mg PO DAILY [facility] Last Admin: 10/09/23 09:04 Dose: 0.1 mg Documented By: MIKE Fluticasone Propionate (Fluticasone Propionate Nasal 16 Gm [place]) 2 spray NOSTRIL-B DAILY [facility] Last Admin: 10/09/23 09:05 Dose: 2 spray Documented By: MIKE Gabapentin (Gabapentin 100 Mg Capsule) 100 mg PO BID [facility] Last Admin: 10/09/23 20:11 Dose: 100 mg Documented By: RICARDO Glucose (Glucose Gel 15 Gm Gel..Gram.) 15 gm PO Q15M PRN; Protocol PRN Reason: per Hypoglycemia Standing Ord. Heparin Sodium (Porcine) (Heparin Sodium,Porcine 1,000 Unit/Ml Vial) 4,000 unit [facility] Last Admin: 10/08/23 14:46 Dose: Not Given Documented By: ANTON Non-Admin Reason: Off unit: Dialysis Heparin Sodium (Porcine) (Heparin Sodium,Porcine 5,000 Unit/Ml Vial) 5,000 unit IVPUSH [facility] Last Admin: 10/08/23 12:12 Dose: Not Given Documented By: ANTON Non-Admin Reason: Given in Dialysis Dextrose (D10) 250 mls @ 750 mls/hr IV Q15M PRN; Protocol PRN Reason: per Hypoglycemia Standing Ord. Lidocaine (Lidocaine 4 % Patch Adh..Patch) 1 patch TRANSDERMA DAILY [facility] Last Admin: 10/09/23 09:04 Dose: 1 patch Documented By: MIKE Midodrine (Midodrine Hcl 5 Mg Tablet) 5 mg PO TID [facility] Last Admin: 10/09/23 20:11 Dose: 5 mg Documented By: RICARDO Multi-Ingred Cream/Lotion/Oil/Oint (Mineral Oil/Petrolatum,White 106 Gm Tube) 1 appl TOPICAL BID [facility]; Protocol Last Admin: 10/09/23 21:10 Dose: Not Given Documented By: HO.MARTYA Non-Admin Reason: Patient Refused Ondansetron HCl (Ondansetron Odt 4 Mg Tab.Rapdis) 4 mg TRANSLINGU Q6H PRN PRN Reason: Nausea and Vomiting Last Admin: 10/08/23 09:07 Dose: 4 mg Documented By: ANTON Polyethylene Glycol (Polyethylene Glycol 3350 17 Gm Powd.Pack) 17 gm PO DAILY [facility] Last Admin: 10/09/23 09:10 Dose: Not Given Documented By: MIKE Non-Admin Reason: Patient Refused Sertraline HCl (Sertraline Hcl 25 Mg Tablet) 12.5 mg PO BEDTIME [facility] Last Admin: 10/09/23 20:11 Dose: 12.5 mg Documented By: RICARDO Trazodone HCl (Trazodone Hcl 25 Mg Halftab) 25 mg PO BEDTIME [facility] Last Admin: 10/09/23 20:11 Dose: 25 mg Documented By: RICARDO Labs 10/09/23 11:05 10/10/23 06:01 Labs: Laboratory Results - last 24 hr 10/09/23 10/09/23 10/09/23 07:30 11:05 16:07 MCV 92.5 MCH 30.1 MCHC 32.5 RDW 15.1 Plt Count 451 H D MPV 8.1 L Absolute Nucleated RBC 0.000 Nucleated RBC % (auto) 0.0 Anion Gap 17 Estim Creat Clear Calc 31.5 Estimated GFR 16 POC Glucose 88 82 Random Glucose 89 Calcium 9.7 10/09/23 10/10/23 20:40 06:49 MCV MCH MCHC RDW Plt Count MPV Absolute Nucleated RBC Nucleated RBC % (auto) Anion Gap Estim Creat Clear Calc Estimated GFR POC Glucose 75 83 Random Glucose Calcium Assessment and Plan (1) Acute DVT (deep venous thrombosis): Status: Acute (2) Tachycardia: Status: Acute Plan 53 years old male with PMH of DM2, HTN, Asthma who presented to ED After sustaining a fall and laying on the floor for 9 hours found to have severe acute kidney injury from rhabdomyolysis and hyperkalemia acute on chronic DVT in right common femoral vein started on eliquis 10bid x7 days then 5 bid thereafter Check VQ scan given tachycardia and soft BP. No sob/chest pain to suggest PE however Acute sinus tachycardia Check VQ scan as above Echo ordered Acute diarrhea gi panel and cdiff pcr CHITO and severe hyperkalemia and acute metabolic acidosis due to ATN from rhabdomyolysis and no renal recovery and started on HD, TTS permacath placed 07/16/23 , underwent catheter change 09/28, functioning well receiving dialysis MWF stable and well compensated at this time on midodrine 5 mg t.i.d. and Florinef 0.1 mg daily UO increasing and renal function stable - plan to hold HD and watch renal function, monitor daily add sodium bicarb 650mg BID per nephro hypokalemia- resolved replace po and follow BMP since not getting HD magnesium level pending Chronic Leg and back pain Stable, continue gabapentin 100mg BID dysphagia on NDD3 diet Depression. unspecified No behavioral issues, seen by psychiatry 08/23,on Abilify 2.5 mg daily low-dose since it can cause orthostasis, trazodone 25 mg at bedtime and Zoloft low-dose . patient tolerating current medications Acute?Rhabdomyolysis /Fall resolved with volume participating with physical therapy Diabetes type 2 stable blood sugars, last hemoglobin A1c 6.1 ,12/28/2022. follow POCs Morbid Obesity. BMI 49.2 Low-calorie diet/ weight management. Encourage ambulation. eliquis Full code reason for continued hospitalization: debilitated; safe discharge to short-term rehab. monitor UO, renal function Quality Stroke Does the patient have a stroke diagnosis?: No VTE Prior VTE?: No VTE Risk Level:: Medical - moderate - high VTE Device Contraindication: N/A - Device Ordered VTE Drug Contraindication: N/A - Med Ordered
[2023-10-10 07:27] LABS: Anion Gap 19 (12-20); Blood Urea Nitrogen 25 mg/dL (9-16); Calcium 9.7 mg/dL (8.4-10.2); Carbon Dioxide 17 mmol/L (22-29); Chloride 105 mmol/L (96-108); Glucose Random 76 mg/dL (60-115); Potassium 3.7 mmol/L (3.3-5.1); Sodium 137 mmol/L (135-145)
[2023-10-10 07:53] LABS: Creatinine Clr Calc Pharmacy 30.1; Estimated Glomerular Filt Rate 16
[2023-10-10 08:00] VITALS: BP 91/62; PULSE 111; RESP 18; TEMP 36.9; O2SAT 97
[2023-10-10] MEDS: Lidocaine 4 % Patch ADH..PATCH 1 PATCH TRANSDERMA (09:58)
[2023-10-10] MEDS: Midodrine HCl 5 MG TABLET PO ×3 (09:59→20:01)
[2023-10-10] MEDS: Fludrocortisone Acetate 0.1 MG TABLET PO (09:59)
[2023-10-10] MEDS: ARIPiprazole 5 MG TABLET 2.5 MG PO (09:59)
[2023-10-10] MEDS: Gabapentin 100 MG CAPSULE PO ×2 (09:59→20:01)
[2023-10-10] MEDS: Apixaban 5 MG TABLET 10 MG PO ×2 (09:59→20:01)
[2023-10-10] MEDS: Fluticasone Propionate Nasal 16 GM SPRAY 2 SPRAY NOSTRIL-B (10:00)
[2023-10-10 11:13] LABS: Glucose, Whole Blood 68 mg/dL (60-115)
[2023-10-10] MEDS: Sodium Bicarbonate 650 MG TABLET PO ×2 (11:42→20:01)
[2023-10-10 15:36] VITALS: BP 113/59; PULSE 109; RESP 18; TEMP 36.6; O2SAT 98
[2023-10-10 16:41] LABS: Glucose, Whole Blood 87 mg/dL (60-115)
[2023-10-10] MEDS: Sertraline HCL 25 MG TABLET 12.5 MG PO (20:01)
[2023-10-10] MEDS: traZODone HCL 25 MG HALFTAB PO (20:02)
[2023-10-10 20:16] LABS: Glucose, Whole Blood 89 mg/dL (60-115)
[2023-10-10 23:33] VITALS: BP 110/65; PULSE 111; RESP 20; TEMP 36.2; O2SAT 96
[2023-10-11 06:38] LABS: Anion Gap 16 (12-20); Blood Urea Nitrogen 29 mg/dL (9-16); Calcium 9.5 mg/dL (8.4-10.2); Carbon Dioxide 19 mmol/L (22-29); Chloride 106 mmol/L (96-108); Creatinine Clr Calc Pharmacy 30.2; Estimated Glomerular Filt Rate 16; Glucose Random 93 mg/dL (60-115); Potassium 3.4 mmol/L (3.3-5.1); Sodium 138 mmol/L (135-145)
[2023-10-11 07:09] VITALS: BP 102/69; PULSE 102; RESP 16; TEMP 36.4; O2SAT 96
[2023-10-11] MEDS: Sodium Bicarbonate 650 MG TABLET PO ×2 (07:41→19:53)
[2023-10-11] MEDS: ARIPiprazole 5 MG TABLET 2.5 MG PO (07:41)
[2023-10-11] MEDS: Gabapentin 100 MG CAPSULE PO ×2 (07:41→19:53)
[2023-10-11] MEDS: Lidocaine 4 % Patch ADH..PATCH 1 PATCH TRANSDERMA (07:42)
[2023-10-11] MEDS: Apixaban 5 MG TABLET 10 MG PO ×2 (07:42→19:53)
[2023-10-11] MEDS: Midodrine HCl 5 MG TABLET PO ×3 (07:42→19:53)
[2023-10-11] MEDS: Fludrocortisone Acetate 0.1 MG TABLET PO (07:42)
[2023-10-11] MEDS: Fluticasone Propionate Nasal 16 GM SPRAY 2 SPRAY NOSTRIL-B (07:43)
[2023-10-11 07:44] LABS: Glucose, Whole Blood 95 mg/dL (60-115)
--- NOTE | 2023-10-11 08:25 | MHC.CM.PN ---
PT AWAITING SNF PLACEMENT WITH HD SLOT REFERRAL HAS BEEN BROADCASTED TO 91 SNFS, THERE ARE STILL NO BED OFFERS CM WILL CONTINUE BED SEARCH
--- NOTE | 2023-10-11 09:49 | HO.PM.IMPN ---
Subjective Subjective Date of Service: 10/11/23 Interval History: No acute issues overnight Review of Systems Denies chest pain Denies shortness of breath Denies nausea vomiting diarrhea Denies fever chills Physical Exam Vital Signs: Vital Signs: Last Vital Signs Temp 97.6 F 10/11/23 07:09 Pulse 102 H 10/11/23 07:09 Resp 16 10/11/23 07:09 BP 102/69 10/11/23 07:09 Pulse Ox 96 10/11/23 07:09 O2 Del Method Room Air 10/11/23 07:09 O2 Flow Rate 2 09/17/23 12:00 BMI result Body Mass Index 49.2 Const: Other: Awake alert no acute distress Resp: Other: Clear to auscultation no rales rhonchi or wheeze Cardio: Other: No S4; positive S1-S2; no S3 murmurs rubs or gallops GI: Other: Soft nontender nondistended normoactive bowel sounds Extrem: Other: No edema bilaterally Objective Data Active Medications Apixaban (Apixaban 5 Mg Tablet) 10 mg PO BID [facility] Stop: 10/15/23 09:01 Last Admin: 10/11/23 07:42 Dose: 10 mg Documented By: MIKE Apixaban (Apixaban 5 Mg Tablet) 5 mg PO BID [facility] Stop: 02/25/25 21:01 Aripiprazole (Aripiprazole 5 Mg Tablet) 2.5 mg PO DAILY [facility] Last Admin: 10/11/23 07:41 Dose: 2.5 mg Documented By: MIKE Calcium Carbonate (Calcium Carbonate 750 Mg Tab.Chew) 750 mg PO Q6H PRN PRN Reason: Heartburn Last Admin: 10/06/23 20:43 Dose: 750 mg Documented By: KASI Fludrocortisone Acetate (Fludrocortisone Acetate 0.1 Mg Tablet) 0.1 mg PO DAILY [facility] Last Admin: 10/11/23 07:42 Dose: 0.1 mg Documented By: MIKE Fluticasone Propionate (Fluticasone Propionate Nasal 16 Gm [place]) 2 spray NOSTRIL-B DAILY [facility] Last Admin: 10/11/23 07:43 Dose: 2 spray Documented By: MIKE Gabapentin (Gabapentin 100 Mg Capsule) 100 mg PO BID [facility] Last Admin: 10/11/23 07:41 Dose: 100 mg Documented By: MIKE Glucose (Glucose Gel 15 Gm Gel..Gram.) 15 gm PO Q15M PRN; Protocol PRN Reason: per Hypoglycemia Standing Ord. Heparin Sodium (Porcine) (Heparin Sodium,Porcine 1,000 Unit/Ml Vial) 4,000 unit IV [facility] Last Admin: 10/08/23 14:46 Dose: Not Given Documented By: ANTON Non-Admin Reason: Off unit: Dialysis Heparin Sodium (Porcine) (Heparin Sodium,Porcine 5,000 Unit/Ml Vial) 5,000 unit IVPUSH [facility] Last Admin: 10/08/23 12:12 Dose: Not Given Documented By: ANTON Non-Rj Reason: Given in Dialysis Dextrose (D10) 250 mls @ 750 mls/hr IV Q15M PRN; Protocol PRN Reason: per Hypoglycemia Standing Ord. Lidocaine (Lidocaine 4 % Patch Adh..Patch) 1 patch TRANSDERMA DAILY [facility] Last Admin: 10/11/23 07:42 Dose: 1 patch Documented By: MIKE Midodrine (Midodrine Hcl 5 Mg Tablet) 5 mg PO TID [facility] Last Admin: 10/11/23 07:42 Dose: 5 mg Documented By: MIKE Multi-Ingred Cream/Lotion/Oil/Oint (Mineral Oil/Petrolatum,White 106 Gm Tube) 1 appl TOPICAL BID [facility]; Protocol Last Admin: 10/11/23 07:50 Dose: Not Given Documented By: MIKE Non-Admin Reason: Patient Refused Ondansetron HCl (Ondansetron Odt 4 Mg Tab.Rapdis) 4 mg TRANSLINGU Q6H PRN PRN Reason: Nausea and Vomiting Last Admin: 10/08/23 09:07 Dose: 4 mg Documented By: ANTON Polyethylene Glycol (Polyethylene Glycol 3350 17 Gm Powd.Pack) 17 gm PO DAILY [facility] Last Admin: 10/11/23 07:50 Dose: Not Given Documented By: MIKE Non-Admin Reason: Patient Refused Sertraline HCl (Sertraline Hcl 25 Mg Tablet) 12.5 mg PO BEDTIME [facility] Last Admin: 10/10/23 20:01 Dose: 12.5 mg Documented By: JAYME Sodium Bicarbonate (Sodium Bicarbonate 650 Mg Tablet) 650 mg PO BID [facility] Last Admin: 10/11/23 07:41 Dose: 650 mg Documented By: MIKE Trazodone HCl (Trazodone Hcl 25 Mg Halftab) 25 mg PO BEDTIME [facility] Last Admin: 10/10/23 20:02 Dose: 25 mg Documented By: JAYME Labs 10/09/23 11:05 10/11/23 05:53 Labs: Laboratory Results - last 24 hr 10/10/23 10/10/23 10/10/23 11:01 16:37 19:58 Anion Gap Estim Creat Clear Calc Estimated GFR POC Glucose 68 87 89 Random Glucose Calcium 10/11/23 10/11/23 05:53 07:14 Anion Gap 16 Estim Creat Clear Calc 30.2 Estimated GFR 16 POC Glucose 95 Random Glucose 93 Calcium 9.5 Assessment and Plan (1) Acute DVT (deep venous thrombosis): Status: Acute (2) ESRD needing dialysis: Status: Acute Plan 53 years old male with PMH of DM2, HTN, Asthma who presented to ED After sustaining a fall and laying on the floor for 9 hours found to have severe acute kidney injury from rhabdomyolysis and hyperkalemia 1.Chronic DVT right femoral vein -recent episode tachycardia shortness of breath. . . V/Q scan negative -continue Eliquis as ordered 2.CHITO and severe hyperkalemia and acute metabolic acidosis due to ATN from rhabdomyolysis and no renal recovery and started on HD, TTS, -permacath placed 07/16/23. -receiving dialysis MWF -follow renals/divalents -stable and well compensated at this t 3.Depression. unspecified -No behavioral issues, seen by psychiatry 08/23, they recommended decrease dose of Abilify to 2.5 mg daily ,since it can cause orthostasis, decrease dose of trazodone to 25 mg at bedtime and Zoloft low-dose added -continue to encourage participation in PT 4.Acute?Rhabdomyolysis -resolved with volume -follow clinically 5.Diabetes type 2 -acceptable control on current therapies -lispro correctional scale -adjust as indicated Heparin Full code reason for continued hospitalization: debilitated / depressed, safe discharge to short-term rehab. Quality Stroke Does the patient have a stroke diagnosis?: No VTE Prior VTE?: No VTE Risk Level:: Medical - moderate - high VTE Device Contraindication: N/A - Device Ordered VTE Drug Contraindication: N/A - Med Ordered
[2023-10-11 11:30] LABS: Glucose, Whole Blood 99 mg/dL (60-115)
[2023-10-11 12:12] LABS: CDiff Gene PCR POSITIVE (Negative)
[2023-10-11 12:44] LABS: CDIFF Internal ctrl Dots and bkg OK (V)
[2023-10-11 12:46] LABS: CDiff Toxin Negative (Negative)
[2023-10-11 12:56] LABS: Adenovirus F 40/41 Not Detected (Not Detect.); Astrovirus Not Detected (Not Detect.); Campylobacter Not Detected (Not Detect.); Cryptosporidium Not Detected (Not Detect.); Cyclospora cayetanensis Not Detected (Not Detect.); E. coli EAEC Not Detected (Not Detect.); E. coli EPEC Not Detected (Not Detect.); E. coli ETEC Not Detected (Not Detect.); E. coli STEC Not Detected (Not Detect.); Entamoeba histolytica Not Detected (Not Detect.); Giardia lamblia Not Detected (Not Detect.); Norovirus GI/GII Not Detected (Not Detect.); Plesiomonas shigelloides Not Detected (Not Detect.); Rotavirus A Not Detected (Not Detect.); Salmonella Not Detected (Not Detect.); Sapovirus Not Detected (Not Detect.); Shigella sp./EIEC Not Detected (Not Detect.); Vibrio Not Detected (Not Detect.); Vibrio Cholerae Not Detected (Not Detect.); Yersinia enterocolitica Not Detected (Not Detect.)
[2023-10-11] MEDS: vancomycin HCL 125 MG CAPSULE PO ×2 (13:05→18:12)
[2023-10-11 15:15] VITALS: BP 100/72; PULSE 103; RESP 20; TEMP 36.3; O2SAT 97
[2023-10-11 16:25] LABS: Glucose, Whole Blood 84 mg/dL (60-115)
[2023-10-11] MEDS: traZODone HCL 25 MG HALFTAB PO (19:53)
[2023-10-11] MEDS: Sertraline HCL 25 MG TABLET 12.5 MG PO (19:53)
[2023-10-11 20:14] VITALS: BP 101/71; PULSE 104; RESP 20; TEMP 36.3; O2SAT 98
[2023-10-11 20:21] LABS: Glucose, Whole Blood 85 mg/dL (60-115)
[2023-10-11 23:59] VITALS: BP 100/66; PULSE 106; RESP 16; TEMP 36.7; O2SAT 94
[2023-10-12] MEDS: vancomycin HCL 125 MG CAPSULE PO ×4 (00:08→18:52)
[2023-10-12 07:02] LABS: Anion Gap 20 (12-20); Blood Urea Nitrogen 32 mg/dL (9-16); Calcium 9.7 mg/dL (8.4-10.2); Carbon Dioxide 17 mmol/L (22-29); Chloride 107 mmol/L (96-108); Creatinine Clr Calc Pharmacy 33.4; Estimated Glomerular Filt Rate 18; Glucose Random 90 mg/dL (60-115); Potassium 3.6 mmol/L (3.3-5.1); Sodium 140 mmol/L (135-145)
[2023-10-12 07:43] VITALS: BP 99/66; PULSE 100; RESP 16; TEMP 36.6; O2SAT 96
[2023-10-12 07:50] LABS: Glucose, Whole Blood 88 mg/dL (60-115)
--- NOTE | 2023-10-12 08:36 | P.PNNP_ITS ---
Subjective Subjective Date of Service: 10/12/23 Principal diagnosis: Elevated troponins Interval history: Renal functions improving; All recent data reviewed Physical Exam 2 Vital Signs: Vital Signs: Last Vital Signs Temp 97.8 F 10/12/23 07:43 Pulse 100 10/12/23 07:43 Resp 16 10/12/23 07:43 BP 99/66 10/12/23 07:43 Pulse Ox 96 10/12/23 07:43 O2 Del Method Room Air 10/12/23 07:43 O2 Flow Rate 2 09/17/23 12:00 BMI result Body Mass Index 49.2 Const: General: no acute distress Orientation/consciousness: patient oriented x3 Eyes: EOM: EOMs intact bilaterally Resp: Auscultation: diminished lung sounds Cardio: Rate: regular rate GI: Palpation (GI): Soft to palpation Neuro: General: patient oriented x3 Objective Data Labs 10/09/23 11:05 10/12/23 06:40 Labs: Laboratory Results - last 24 hr 10/11/23 10/11/23 10/11/23 11:05 11:19 16:22 Sodium Potassium Chloride Carbon Dioxide Anion Gap BUN Creatinine Estim Creat Clear Calc Estimated GFR POC Glucose 99 84 Random Glucose Calcium Stl C. cayetanensis PCR Not Detected Stool Rotavirus A PCR Not Detected Stl Adenov F 40/41 PCR Not Detected Stool Astrovirus (PCR) Not Detected Stool Campylobacter PCR Not Detected Stool Cryptosporidium PCR Not Detected Stl Sh Tox Pr E STEC PCR Not Detected Stool E coli O157 PCR Not applicable Stl Enterotoxigenic E PCR Not Detected Stool EPEC (PCR) Not Detected Stool EAEC (PCR) Not Detected Stl E. histolytica PCR Not Detected Stool Giardia Lamblia PCR Not Detected Stl P. shigelloides PCR Not Detected Stool Salmonella PCR Not Detected Stool Sapovirus (PCR) Not Detected Stl Shigella/EIEC PCR Not Detected St Y.enterocolitica PCR Not Detected Stool Vibrio (PCR) Not Detected Stl Vibrio cholerae PCR Not Detected Stl Norovirus GI/GII PCR Not Detected C. difficile Tox B Gene POSITIVE A* C. difficile Toxin A&B Negative C. difficile Interpret SEE NOTE 10/11/23 10/12/23 10/12/23 20:16 06:40 07:46 Sodium 140 Potassium 3.6 Chloride 107 Carbon Dioxide 17 L Anion Gap 20 BUN 32 H Creatinine 3.65 H Estim Creat Clear Calc 33.4 Estimated GFR 18 POC Glucose 85 88 Random Glucose 90 Calcium 9.7 Stl C. cayetanensis PCR Stool Rotavirus A PCR Stl Adenov F 40/41 PCR Stool Astrovirus (PCR) Stool Campylobacter PCR Stool Cryptosporidium PCR Stl Sh Tox Pr E STEC PCR Stool E coli O157 PCR Stl Enterotoxigenic E PCR Stool EPEC (PCR) Stool EAEC (PCR) Stl E. histolytica PCR Stool Giardia Lamblia PCR Stl P. shigelloides PCR Stool Salmonella PCR Stool Sapovirus (PCR) Stl Shigella/EIEC PCR St Y.enterocolitica PCR Stool Vibrio (PCR) Stl Vibrio cholerae PCR Stl Norovirus GI/GII PCR C. difficile Tox B Gene C. difficile Toxin A&B C. difficile Interpret Microbiology Microbiology Results: Microbiology 07/20/23 22:49 Blood - Venous Blood Culture - Final No growth after 5 days. 07/20/23 22:49 Blood - Venous Blood Culture - Final No growth after 5 days. 07/12/23 12:30 Blood - Venous Blood Culture - Final No growth after 5 days. 07/12/23 12:15 Blood - Venous Blood Culture - Final No growth after 5 days. 07/12/23 Unknown Urine Catheterized - Straight Catheter Urine Culture - Final No growth. 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
[2023-10-12] MEDS: Gabapentin 100 MG CAPSULE PO ×2 (08:54→21:23)
[2023-10-12] MEDS: Sodium Bicarbonate 650 MG TABLET PO ×2 (08:54→21:25)
[2023-10-12] MEDS: Midodrine HCl 5 MG TABLET PO ×2 (08:55→14:31)
[2023-10-12] MEDS: Fludrocortisone Acetate 0.1 MG TABLET PO (08:55)
[2023-10-12] MEDS: Apixaban 5 MG TABLET 10 MG PO ×2 (08:55→21:25)
[2023-10-12] MEDS: ARIPiprazole 5 MG TABLET 2.5 MG PO (08:55)
--- NOTE | 2023-10-12 10:28 | P.PNIM_ITS ---
Subjective Subjective Date of Service: 10/12/23 Interval History: Stool positive for C diff; started on vancomycin p.o.. No worsening of diarrhea per patient. Review of Systems Denies chest pain Denies shortness of breath Denies nausea vomiting diarrhea Denies fever chills Physical Exam 2 Vital Signs: Vital Signs: Last Vital Signs Temp 97.8 F 10/12/23 07:43 Pulse 100 10/12/23 07:43 Resp 16 10/12/23 07:43 BP 99/66 10/12/23 07:43 Pulse Ox 96 10/12/23 07:43 O2 Del Method Room Air 10/12/23 07:43 O2 Flow Rate 2 09/17/23 12:00 BMI result Body Mass Index 49.2 Const: Other: Awake alert no acute distress Resp: Other: Clear to auscultation no rales rhonchi or wheeze Cardio: Other: No S4; positive S1-S2; no S3 murmurs rubs or gallops GI: Other: Soft nontender nondistended normoactive bowel sounds Extrem: Other: No edema bilaterally Objective Data Active Medications Apixaban (Apixaban 5 Mg Tablet) 10 mg PO BID [facility] Stop: 10/15/23 09:01 Last Admin: 10/12/23 08:55 Dose: 10 mg Documented By: TIA Apixaban (Apixaban 5 Mg Tablet) 5 mg PO BID [facility] Stop: 02/25/25 21:01 Aripiprazole (Aripiprazole 5 Mg Tablet) 2.5 mg PO DAILY [facility] Last Admin: 10/12/23 08:55 Dose: 2.5 mg Documented By: TIA Calcium Carbonate (Calcium Carbonate 750 Mg Tab.Chew) 750 mg PO Q6H PRN PRN Reason: Heartburn Last Admin: 10/06/23 20:43 Dose: 750 mg Documented By: KASI Fludrocortisone Acetate (Fludrocortisone Acetate 0.1 Mg Tablet) 0.1 mg PO DAILY [facility] Last Admin: 10/12/23 08:55 Dose: 0.1 mg Documented By: TIA Gabapentin (Gabapentin 100 Mg Capsule) 100 mg PO BID [facility] Last Admin: 10/12/23 08:54 Dose: 100 mg Documented By: TIA Glucose (Glucose Gel 15 Gm Gel..Gram.) 15 gm PO Q15M PRN; Protocol PRN Reason: per Hypoglycemia Standing Ord. Heparin Sodium (Porcine) (Heparin Sodium,Porcine 1,000 Unit/Ml Vial) [facility] Last Admin: 10/11/23 23:49 Dose: Not Given Documented By: BENNETT Non-Admin Reason: not given by previous shift Heparin Sodium (Porcine) (Heparin Sodium,Porcine 5,000 Unit/Ml Vial) 5,000 unit IVPUSH [facility] Last Admin: 10/11/23 23:48 Dose: Not Given Documented By: BENNETT Non-Admin Reason: not given by previous shift Dextrose (D10) 250 mls @ 750 mls/hr IV Q15M PRN; Protocol PRN Reason: per Hypoglycemia Standing Ord. Midodrine (Midodrine Hcl 5 Mg Tablet) 5 mg PO TID [facility] Last Admin: 10/12/23 08:55 Dose: 5 mg Documented By: TIA Multi-Ingred Cream/Lotion/Oil/Oint (Mineral Oil/Petrolatum,White 106 Gm Tube) 1 appl TOPICAL BID [facility]; Protocol Last Admin: 10/12/23 08:57 Dose: Not Given Documented By: TIA Non-Admin Reason: Patient Refused Ondansetron HCl (Ondansetron Odt 4 Mg Tab.Rapdis) 4 mg TRANSLINGU Q6H PRN PRN Reason: Nausea and Vomiting Last Admin: 10/08/23 09:07 Dose: 4 mg Documented By: ANTON Polyethylene Glycol (Polyethylene Glycol 3350 17 Gm Powd.Pack) 17 gm PO DAILY [facility] Last Admin: 10/12/23 08:57 Dose: Not Given Documented By: TIA Non-Admin Reason: Patient Refused Sertraline HCl (Sertraline Hcl 25 Mg Tablet) 12.5 mg PO BEDTIME [facility] Last Admin: 10/11/23 19:53 Dose: 12.5 mg Documented By: FABIANO Sodium Bicarbonate (Sodium Bicarbonate 650 Mg Tablet) 650 mg PO BID [facility] Last Admin: 10/12/23 08:54 Dose: 650 mg Documented By: TIA Trazodone HCl (Trazodone Hcl 25 Mg Halftab) 25 mg PO BEDTIME [facility] Last Admin: 10/11/23 19:53 Dose: 25 mg Documented By: FABIANO Vancomycin HCl (Vancomycin Hcl 125 Mg Capsule) 125 mg PO Q6H [facility] Last Admin: 10/12/23 06:02 Dose: 125 mg Documented By: BENNETT Labs 10/09/23 11:05 10/12/23 06:40 Labs: Laboratory Results - last 24 hr 10/11/23 10/11/23 10/11/23 11:05 11:19 16:22 Anion Gap Estim Creat Clear Calc Estimated GFR POC Glucose 99 84 Random Glucose Calcium Stl C. cayetanensis PCR Not Detected Stool Rotavirus A PCR Not Detected Stl Adenov F PCR Not Detected Stool Astrovirus (PCR) Not Detected Stool Campylobacter PCR Not Detected Stool Cryptosporidium PCR Not Detected Stl Sh Tox Pr E STEC PCR Not Detected Stool E coli O157 PCR Not applicable Stl Enterotoxigenic E PCR Not Detected Stool EPEC (PCR) Not Detected Stool EAEC (PCR) Not Detected Stl E. histolytica PCR Not Detected Stool Giardia Lamblia PCR Not Detected Stl P. shigelloides PCR Not Detected Stool Salmonella PCR Not Detected Stool Sapovirus (PCR) Not Detected Stl Shigella/EIEC PCR Not Detected St Y.enterocolitica PCR Not Detected Stool Vibrio (PCR) Not Detected Stl Vibrio cholerae PCR Not Detected Stl Norovirus GI/GII PCR Not Detected C. difficile Tox B Gene POSITIVE A* C. difficile Toxin A&B Negative C. difficile Interpret SEE NOTE 10/11/23 10/12/23 10/12/23 20:16 06:40 07:46 Anion Gap 20 Estim Creat Clear Calc 33.4 Estimated GFR 18 POC Glucose 85 88 Random Glucose 90 Calcium 9.7 Stl C. cayetanensis PCR Stool Rotavirus A PCR Stl Adenov F PCR Stool Astrovirus (PCR) Stool Campylobacter PCR Stool Cryptosporidium PCR Stl Sh Tox Pr E STEC PCR Stool E coli O157 PCR Stl Enterotoxigenic E PCR Stool EPEC (PCR) Stool EAEC (PCR) Stl E. histolytica PCR Stool Giardia Lamblia PCR Stl P. shigelloides PCR Stool Salmonella PCR Stool Sapovirus (PCR) Stl Shigella/EIEC PCR St Y.enterocolitica PCR Stool Vibrio (PCR) Stl Vibrio cholerae PCR Stl Norovirus GI/GII PCR C. difficile Tox B Gene C. difficile Toxin A&B C. difficile Interpret Assessment and Plan (1) Acute DVT (deep venous thrombosis): Status: Acute (2) C. difficile diarrhea: Status: Acute (3) CHITO (acute kidney injury): Status: Acute Plan 53 years old male with PMH of DM2, HTN, Asthma who presented to ED After sustaining a fall and laying on the floor for 9 hours found to have severe acute kidney injury from rhabdomyolysis and hyperkalemia 1.Chronic DVT right femoral vein -recent episode tachycardia shortness of breath. . . V/Q scan negative -continue Eliquis as ordered 2. C diff positive -contact precautions -oral vancomycin 3..CHITO and severe hyperkalemia and acute metabolic acidosis due to ATN from rhabdomyolysis and no renal recovery and started on HD, TTS, -permacath placed 07/16/23. -receiving dialysis MWF -follow renals/divalents -stable and well compensated at this t 3.Depression. unspecified -No behavioral issues, seen by psychiatry 08/23, they recommended decrease dose of Abilify to 2.5 mg daily ,since it can cause orthostasis, decrease dose of trazodone to 25 mg at bedtime and Zoloft low-dose added -continue to encourage participation in PT 4.Acute?Rhabdomyolysis -resolved with volume -follow clinically 5.Diabetes type 2 -acceptable control on current therapies -lispro correctional scale -adjust as indicated Heparin Full code reason for continued hospitalization: debilitated / depressed, safe discharge to short-term rehab. Quality Stroke Does the patient have a stroke diagnosis?: No VTE Prior VTE?: No VTE Risk Level:: Medical - moderate - high VTE Device Contraindication: N/A - Device Ordered VTE Drug Contraindication: N/A - Med Ordered
[2023-10-12 11:37] LABS: Glucose, Whole Blood 82 mg/dL (60-115)
[2023-10-12 15:37] VITALS: BP 120/69; PULSE 111; RESP 16; TEMP 36.2; O2SAT 99
[2023-10-12 16:32] LABS: Glucose, Whole Blood 74 mg/dL (60-115)
[2023-10-12 20:06] LABS: Glucose, Whole Blood 91 mg/dL (60-115)
[2023-10-12] MEDS: traZODone HCL 25 MG HALFTAB PO (21:23)
[2023-10-12] MEDS: Sertraline HCL 25 MG TABLET 12.5 MG PO (21:23)
--- NOTE | 2023-10-12 22:15 | PC.NURSE ---
midodrine held due to BP being 120/69, will check BP at midnight.
[2023-10-13] VITALS: BP 101/69; PULSE 106; RESP 18; TEMP 36.2; O2SAT 94
[2023-10-13] MEDS: Midodrine HCl 5 MG TABLET PO ×4 (00:31→20:01)
[2023-10-13] MEDS: vancomycin HCL 125 MG CAPSULE PO ×4 (01:19→18:46)
[2023-10-13 06:05] LABS: MANUAL DIFF FLAG NO
[2023-10-13 06:26] LABS: Alanine Aminotransferase 6 U/L (0-40); Albumin Level 3.1 g/dL (3.5-5.0); Alkaline Phosphatase 123 U/L (39-117); Anion Gap 18 (12-20); Aspartate Amino Transferase 11 U/L (5-37); Bilirubin Total 0.3 mg/dL (0.0-1.0); Blood Urea Nitrogen 30 mg/dL (9-16); Calcium 9.6 mg/dL (8.4-10.2); Carbon Dioxide 18 mmol/L (22-29); Chloride 106 mmol/L (96-108); Creatinine Clr Calc Pharmacy 36.8; Estimated Glomerular Filt Rate 20; Glucose Fasting 86 mg/dL (60-99); Potassium 3.4 mmol/L (3.3-5.1); Sodium 139 mmol/L (135-145); Total Protein 6.4 g/dL (6.5-8.0)
[2023-10-13 06:40] LABS: Basophils Percent Auto 0.5 % (0-2); Eosinophils Absolute Auto 0.3 X10*3/uL (0.0-0.4); Eosinophils Percent Auto 4.8 % (0-4); Hematocrit 27.1 % (42.0-52.0); Hemoglobin 8.9 g/dl (14.0-18.0); Imm Gran Abs Auto 0.11 X10*3/uL (0.00-0.03); Lymphocytes Absolute Auto 1.7 X10*3/uL (1.2-4.9); Lymphocytes Percent Auto 30.4 % (20-40); Mean Corpuscular HGB Conc 32.8 g/dl (31.0-36.0); Mean Corpuscular Hemoglobin 30.2 pg (27.0-33.0); Mean Corpuscular Volume 91.9 fL (80.0-98.0); Mean Platelet Volume 8.7 fL (9.4-12.4); Monocytes Absolute Auto 0.5 X10*3/uL (0.1-1.2); Monocytes Percent Auto 9.1 % (2-11); Neutrophils Percent Auto 53.2 % (45-73); Platelet Count 486 X10*3/uL (160-400); Red Blood Count 2.95 X10*6/uL (4.60-5.80); Red Cell Distribution Width 14.6 % (11.0-16.0); White Blood Count 5.6 X10*3/uL (4.8-10.8)
[2023-10-13 07:18] VITALS: BP 98/62; PULSE 100; RESP 16; TEMP 36.3; O2SAT 98
[2023-10-13 07:26] LABS: Glucose, Whole Blood 87 mg/dL (60-115)
[2023-10-13] MEDS: Apixaban 5 MG TABLET 10 MG PO ×2 (09:24→20:00)
[2023-10-13] MEDS: Sodium Bicarbonate 650 MG TABLET PO ×2 (09:24→20:01)
[2023-10-13] MEDS: ARIPiprazole 5 MG TABLET 2.5 MG PO (09:24)
[2023-10-13] MEDS: Gabapentin 100 MG CAPSULE PO ×2 (09:25→20:01)
[2023-10-13] MEDS: Fludrocortisone Acetate 0.1 MG TABLET PO (09:25)
--- NOTE | 2023-10-13 10:11 | PC.NURSE ---
Right chest perma cath drsg found off the site,new drsg applied with biopatch,patient tolerated it well
--- NOTE | 2023-10-13 10:56 | HO.PM.IMPN ---
Subjective Subjective Date of Service: 10/13/23 Interval History: Diarrhea slowly improving. No new complaints Review of Systems Denies chest pain Denies shortness of breath Denies nausea vomiting diarrhea Denies fever chills Physical Exam Vital Signs: Vital Signs: Last Vital Signs Temp 97.4 F 10/13/23 07:18 Pulse 100 10/13/23 07:18 Resp 16 10/13/23 07:18 BP 98/62 10/13/23 07:18 Pulse Ox 98 10/13/23 07:18 O2 Del Method Room Air 10/13/23 07:18 O2 Flow Rate 2 09/17/23 12:00 BMI result Body Mass Index 49.2 Const: Other: Awake alert no acute distress Resp: Other: Clear to auscultation no rales rhonchi or wheeze Cardio: Other: No S4; positive S1-S2; no S3 murmurs rubs or gallops GI: Other: Soft nontender nondistended normoactive bowel sounds Extrem: Other: No edema bilaterally Objective Data Active Medications Apixaban (Apixaban 5 Mg Tablet) 10 mg PO BID [facility] Stop: 10/15/23 09:01 Last Admin: 10/13/23 09:24 Dose: 10 mg Documented By: ANTON Apixaban (Apixaban 5 Mg Tablet) 5 mg PO BID [facility] Stop: 02/25/25 21:01 Aripiprazole (Aripiprazole 5 Mg Tablet) 2.5 mg PO DAILY [facility] Last Admin: 10/13/23 09:24 Dose: 2.5 mg Documented By: ANTON Calcium Carbonate (Calcium Carbonate 750 Mg Tab.Chew) 750 mg PO Q6H PRN PRN Reason: Heartburn Last Admin: 10/06/23 20:43 Dose: 750 mg Documented By: KASI Fludrocortisone Acetate (Fludrocortisone Acetate 0.1 Mg Tablet) 0.1 mg PO DAILY [facility] Last Admin: 10/13/23 09:25 Dose: 0.1 mg Documented By: ANTON Gabapentin (Gabapentin 100 Mg Capsule) 100 mg PO BID [facility] Last Admin: 10/13/23 09:25 Dose: 100 mg Documented By: ANTON Glucose (Glucose Gel 15 Gm Gel..Gram.) 15 gm PO Q15M PRN; Protocol PRN Reason: per Hypoglycemia Standing Ord. Heparin Sodium (Porcine) (Heparin Sodium,Porcine 1,000 Unit/Ml Vial) 4,000 unit IV MOWEFR [facility] Last Admin: 10/11/23 23:49 Dose: Not Given Documented By: BENNETT Non-Admin Reason: not given by previous shift Heparin Sodium (Porcine) (Heparin Sodium,Porcine 5,000 Unit/Ml Vial) 5,000 unit IVPUSH MOWEFR [facility] Last Admin: 10/13/23 09:26 Dose: Not Given Documented By: ANTON Non-Admin Reason: to be given in dialysis Dextrose (D10) 250 mls @ 750 mls/hr IV Q15M PRN; Protocol PRN Reason: per Hypoglycemia Standing Ord. Midodrine (Midodrine Hcl 5 Mg Tablet) 5 mg PO TID [facility] Last Admin: 10/13/23 09:25 Dose: 5 mg Documented By: ANTON Multi-Ingred Cream/Lotion/Oil/Oint (Mineral Oil/Petrolatum,White 106 Gm Tube) 1 appl TOPICAL BID [facility]; Protocol Last Admin: 10/13/23 09:26 Dose: Not Given Documented By: ANTON Non-Admin Reason: Patient Refused Ondansetron HCl (Ondansetron Odt 4 Mg Tab.Rapdis) 4 mg TRANSLINGU Q6H PRN PRN Reason: Nausea and Vomiting Last Admin: 10/08/23 09:07 Dose: 4 mg Documented By: ANTON Polyethylene Glycol (Polyethylene Glycol 3350 17 Gm Powd.Pack) 17 gm PO DAILY [facility] Last Admin: 10/13/23 09:18 Dose: Not Given Documented By: ANTON Non-Admin Reason: Patient Refused Sertraline HCl (Sertraline Hcl 25 Mg Tablet) 12.5 mg PO BEDTIME [facility] Last Admin: 10/12/23 21:23 Dose: 12.5 mg Documented By: KASI Comments: Sodium Bicarbonate (Sodium Bicarbonate 650 Mg Tablet) 650 mg PO BID [facility] Last Admin: 10/13/23 09:24 Dose: 650 mg Documented By: ANTON Trazodone HCl (Trazodone Hcl 25 Mg Halftab) 25 mg PO BEDTIME [facility] Last Admin: 10/12/23 21:23 Dose: 25 mg Documented By: KASI Vancomycin HCl (Vancomycin Hcl 125 Mg Capsule) 125 mg PO Q6H [facility] Last Admin: 10/13/23 05:41 Dose: 125 mg Documented By: KASI Labs 10/13/23 05:27 10/13/23 05:27 Labs: Laboratory Results - last 24 hr 10/12/23 10/12/23 10/12/23 11:29 16:09 20:00 MCV MCH MCHC RDW Plt Count MPV Immature Gran % (Auto) Neut % (Auto) Lymph % (Auto) [place] % (Auto) Eos % (Auto) Baso % (Auto) Lymph # (Auto) [place] # (Auto) Eos # (Auto) Baso # (Auto) Abs Immat Gran (auto) Absolute Neuts (auto) Absolute Nucleated RBC Nucleated RBC % (auto) Anion Gap Estim Creat Clear Calc Estimated GFR POC Glucose 82 74 91 Fasting Glucose Calcium Total Bilirubin AST ALT Alkaline Phosphatase Total Protein Albumin 10/13/23 10/13/23 05:27 07:21 MCV 91.9 MCH 30.2 MCHC 32.8 RDW 14.6 Plt Count 486 H MPV 8.7 L Immature Gran % (Auto) 2.0 H Neut % (Auto) 53.2 Lymph % (Auto) 30.4 [place] % (Auto) 9.1 Eos % (Auto) 4.8 H Baso % (Auto) 0.5 Lymph # (Auto) 1.7 [place] # (Auto) 0.5 Eos # (Auto) 0.3 Baso # (Auto) 0.0 Abs Immat Gran (auto) 0.11 H Absolute Neuts (auto) 3.0 Absolute Nucleated RBC 0.000 Nucleated RBC % (auto) 0.0 Anion Gap 18 Estim Creat Clear Calc 36.8 Estimated GFR 20 POC Glucose 87 Fasting Glucose 86 Calcium 9.6 Total Bilirubin 0.3 AST 11 ALT 6 Alkaline Phosphatase 123 H Total Protein 6.4 L Albumin 3.1 L Assessment and Plan (1) Acute DVT (deep venous thrombosis): Status: Acute (2) C. difficile diarrhea: Status: Acute Plan 53 years old male with PMH of DM2, HTN, Asthma who presented to ED After sustaining a fall and laying on the floor for 9 hours found to have severe acute kidney injury from rhabdomyolysis and hyperkalemia 1.Chronic DVT right femoral vein -recent episode tachycardia shortness of breath. . . V/Q scan negative -continue Eliquis as ordered 2. C diff positive -contact precautions -oral vancomycin... Initiated 10/11/2023. Re-evaluate after 1 week of administration 3..CHITO and severe hyperkalemia and acute metabolic acidosis due to ATN from rhabdomyolysis and no renal recovery and started on HD, TTS, -permacath placed 07/16/23. -dialysis on hold.. Renals child decide on PermCath DC -follow renals/divalents -stable and well compensated at this time 3.Depression. unspecified -No behavioral issues, seen by psychiatry 08/23, they recommended decrease dose of Abilify to 2.5 mg daily ,since it can cause orthostasis, decrease dose of trazodone to 25 mg at bedtime and Zoloft low-dose added -continue to encourage participation in PT 4.Acute?Rhabdomyolysis -resolved with volume -follow clinically 5.Diabetes type 2 -acceptable control on current therapies -lispro correctional scale -adjust as indicated Heparin Full code reason for continued hospitalization: debilitated / depressed, safe discharge to short-term rehab. Quality Stroke Does the patient have a stroke diagnosis?: No VTE Prior VTE?: No VTE Risk Level:: Medical - moderate - high VTE Device Contraindication: N/A - Device Ordered VTE Drug Contraindication: N/A - Med Ordered
[2023-10-13 11:24] LABS: Glucose, Whole Blood 87 mg/dL (60-115)
--- NOTE | 2023-10-13 13:08 | MHC.CM.PN ---
EMR REVIEWED. PT NO LONGER REQUIRES HD, REFERRALS UPDATED ON THIS WITH REQUESTS TO RE-EVAL FOR STR PENDING AUTH. WILL CONTINUE TO SEEK A CENTER THAT IS CONTRACTED WITH HIS INSURANCE WILLING TO OFFER BED.
[2023-10-13 15:22] VITALS: BP 111/70; PULSE 106; RESP 20; O2SAT 96
[2023-10-13 15:51] VITALS: TEMP 36.3
--- NOTE | 2023-10-13 15:57 | PC.NURSE ---
OK to keep IV out per Dr. Sparks
[2023-10-13 16:32] LABS: Glucose, Whole Blood 87 mg/dL (60-115)
--- NOTE | 2023-10-13 19:30 | P.PNNP_ITS ---
Subjective Subjective Date of Service: 10/13/23 Principal diagnosis: Elevated troponins Interval history: Renal function improving; Off HD; Has permcath; No new complaints Physical Exam 2 Vital Signs: Vital Signs: Last Vital Signs Temp 97.3 F 10/13/23 15:51 Pulse 106 H 10/13/23 15:22 Resp 20 10/13/23 15:22 BP 111/70 10/13/23 15:22 Pulse Ox 96 10/13/23 15:22 O2 Del Method Room Air 10/13/23 15:22 O2 Flow Rate 2 09/17/23 12:00 BMI result Body Mass Index 49.2 Const: General: comfortable Orientation/consciousness: patient oriented x3 Eyes: EOM: EOMs intact bilaterally Resp: Auscultation: diminished lung sounds Cardio: Rate: regular rate GI: Palpation (GI): Soft to palpation : General: Yes no CVA tenderness Back/Spine/Pelvis: Back: no CVA tenderness Neuro: General: patient oriented x3 Objective Data Labs 10/13/23 05:27 10/13/23 05:27 Labs: Laboratory Results - last 24 hr 10/12/23 10/13/23 10/13/23 20:00 05:27 07:21 WBC 5.6 RBC 2.95 L Hgb 8.9 L Hct 27.1 L MCV 91.9 MCH 30.2 MCHC 32.8 RDW 14.6 Plt Count 486 H MPV 8.7 L Immature Gran % (Auto) 2.0 H Neut % (Auto) 53.2 Lymph % (Auto) 30.4 [place] % (Auto) 9.1 Eos % (Auto) 4.8 H Baso % (Auto) 0.5 Lymph # (Auto) 1.7 [place] # (Auto) 0.5 Eos # (Auto) 0.3 Baso # (Auto) 0.0 Abs Immat Gran (auto) 0.11 H Absolute Neuts (auto) 3.0 Absolute Nucleated RBC 0.000 Nucleated RBC % (auto) 0.0 Sodium 139 Potassium 3.4 Chloride 106 Carbon Dioxide 18 L Anion Gap 18 BUN 30 H Creatinine 3.31 H Estim Creat Clear Calc 36.8 Estimated GFR 20 POC Glucose 91 87 Fasting Glucose 86 Calcium 9.6 Total Bilirubin 0.3 AST 11 ALT 6 Alkaline Phosphatase 123 H Total Protein 6.4 L Albumin 3.1 L 10/13/23 10/13/23 11:17 16:28 WBC RBC Hgb Hct MCV MCH MCHC RDW Plt Count MPV Immature Gran % (Auto) Neut % (Auto) Lymph % (Auto) [place] % (Auto) Eos % (Auto) Baso % (Auto) Lymph # (Auto) [place] # (Auto) Eos # (Auto) Baso # (Auto) Abs Immat Gran (auto) Absolute Neuts (auto) Absolute Nucleated RBC Nucleated RBC % (auto) Sodium Potassium Chloride Carbon Dioxide Anion Gap BUN Creatinine Estim Creat Clear Calc Estimated GFR POC Glucose 87 87 Fasting Glucose Calcium Total Bilirubin AST ALT Alkaline Phosphatase Total Protein Albumin Microbiology Microbiology Results: Microbiology 07/20/23 22:49 Blood - Venous Blood Culture - Final No growth after 5 days. 07/20/23 22:49 Blood - Venous Blood Culture - Final No growth after 5 days. 07/12/23 12:30 Blood - Venous Blood Culture - Final No growth after 5 days. 07/12/23 12:15 Blood - Venous Blood Culture - Final No growth after 5 days. 07/12/23 Unknown Urine Catheterized - Straight Catheter Urine Culture - Final No growth. 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
[2023-10-13] MEDS: traZODone HCL 25 MG HALFTAB PO (20:01)
[2023-10-13] MEDS: Sertraline HCL 25 MG TABLET 12.5 MG PO (20:02)
[2023-10-13 21:00] LABS: Glucose, Whole Blood 109 mg/dL (60-115)
[2023-10-14] VITALS: BP 109/74; PULSE 88; RESP 16; TEMP 36; O2SAT 99
[2023-10-14] MEDS: vancomycin HCL 125 MG CAPSULE PO ×4 (00:53→18:30)
[2023-10-14 06:46] LABS: MANUAL DIFF FLAG NO
[2023-10-14 07:12] LABS: Alanine Aminotransferase 7 U/L (0-40); Albumin Level 3.2 g/dL (3.5-5.0); Alkaline Phosphatase 124 U/L (39-117); Anion Gap 16 (12-20); Aspartate Amino Transferase 11 U/L (5-37); Bilirubin Total 0.3 mg/dL (0.0-1.0); Blood Urea Nitrogen 28 mg/dL (9-16); Calcium 9.7 mg/dL (8.4-10.2); Carbon Dioxide 20 mmol/L (22-29); Chloride 105 mmol/L (96-108); Creatinine Clr Calc Pharmacy 37.8; Estimated Glomerular Filt Rate 20; Glucose Fasting 93 mg/dL (60-99); Potassium 3.5 mmol/L (3.3-5.1); Sodium 137 mmol/L (135-145); Total Protein 6.5 g/dL (6.5-8.0)
[2023-10-14 07:13] LABS: Basophils Absolute Auto 0.1 X10*3/uL (0.0-0.2); Basophils Percent Auto 0.8 % (0-2); Eosinophils Absolute Auto 0.3 X10*3/uL (0.0-0.4); Eosinophils Percent Auto 4.2 % (0-4); Hematocrit 28.3 % (42.0-52.0); Hemoglobin 9.2 g/dl (14.0-18.0); Imm Gran Pct Auto 1.6 % (0.0-0.4); Lymphocytes Percent Auto 31.9 % (20-40); Mean Corpuscular HGB Conc 32.5 g/dl (31.0-36.0); Mean Corpuscular Volume 92.2 fL (80.0-98.0); Mean Platelet Volume 8.7 fL (9.4-12.4); Monocytes Absolute Auto 0.6 X10*3/uL (0.1-1.2); Monocytes Percent Auto 10.3 % (2-11); Neutrophils Absolute Auto 3.2 x10*3/uL (2.0-8.3); Neutrophils Percent Auto 51.2 % (45-73); Platelet Count 505 X10*3/uL (160-400); Red Blood Count 3.07 X10*6/uL (4.60-5.80); Red Cell Distribution Width 14.5 % (11.0-16.0); White Blood Count 6.2 X10*3/uL (4.8-10.8)
[2023-10-14 07:48] VITALS: BP 106/72; PULSE 98; RESP 14; TEMP 37.1; O2SAT 96
[2023-10-14 08:00] LABS: Glucose, Whole Blood 100 mg/dL (60-115)
[2023-10-14] MEDS: ARIPiprazole 5 MG TABLET 2.5 MG PO (08:13)
[2023-10-14] MEDS: Apixaban 5 MG TABLET 10 MG PO ×2 (08:14→20:09)
[2023-10-14] MEDS: Midodrine HCl 5 MG TABLET PO ×3 (08:14→20:10)
[2023-10-14] MEDS: Sodium Bicarbonate 650 MG TABLET PO ×2 (08:14→20:10)
[2023-10-14] MEDS: Fludrocortisone Acetate 0.1 MG TABLET PO (08:14)
[2023-10-14] MEDS: Gabapentin 100 MG CAPSULE PO ×2 (08:14→20:10)
--- NOTE | 2023-10-14 09:57 | P.PNNP_ITS ---
Subjective Subjective Date of Service: 10/14/23 Principal diagnosis: Elevated troponins Interval history: Renal function improving; Off HD; Has permcath; No new complaints Physical Exam 2 Vital Signs: Vital Signs: Last Vital Signs Temp 98.7 F 10/14/23 07:48 Pulse 98 10/14/23 07:48 Resp 14 10/14/23 07:48 BP 106/72 10/14/23 07:48 Pulse Ox 96 10/14/23 07:48 O2 Del Method Room Air 10/14/23 07:48 O2 Flow Rate 2 09/17/23 12:00 BMI result Body Mass Index 49.2 Const: General: comfortable and no acute distress O rientation/consciousness: patient oriented x3 HEENT: Head: Yes normocephalic Mouth: Normal oral and palatal mucosa present Eyes: EOM: EOMs intact bilaterally Neck: Neck: Yes supple Resp: Auscultation: clear to auscultation bilaterally Cardio: Jugular venous distension: no JVD Rate: regular rate GI: Palpation (GI): Soft to palpation Auscultation: normal bowel sounds : General: Yes no CVA tenderness Back/Spine/Pelvis: Back: no CVA tenderness Skin: General skin exam: no rashes or lesions noted Neuro: General: patient oriented x3 and moves all extremities Extrem: General: Yes no pedal edema Objective Data Labs 10/14/23 05:53 10/14/23 05:53 Labs: Laboratory Results - last 24 hr 10/13/23 10/13/23 10/13/23 11:17 16:28 20:43 WBC RBC Hgb Hct MCV MCH MCHC RDW Plt Count MPV Immature Gran % (Auto) Neut % (Auto) Lymph % (Auto) [place] % (Auto) Eos % (Auto) Baso % (Auto) Lymph # (Auto) [place] # (Auto) Eos # (Auto) Baso # (Auto) Abs Immat Gran (auto) Absolute Neuts (auto) Absolute Nucleated RBC Nucleated RBC % (auto) Sodium Potassium Chloride Carbon Dioxide Anion Gap BUN Creatinine Estim Creat Clear Calc Estimated GFR POC Glucose 87 87 109 Fasting Glucose Calcium Total Bilirubin AST ALT Alkaline Phosphatase Total Protein Albumin 10/14/23 10/14/23 05:53 07:57 WBC 6.2 RBC 3.07 L Hgb 9.2 L Hct 28.3 L MCV 92.2 MCH 30.0 MCHC 32.5 RDW 14.5 Plt Count 505 H MPV 8.7 L Immature Gran % (Auto) 1.6 H Neut % (Auto) 51.2 Lymph % (Auto) 31.9 [place] % (Auto) 10.3 Eos % (Auto) 4.2 H Baso % (Auto) 0.8 Lymph # (Auto) 2.0 [place] # (Auto) 0.6 Eos # (Auto) 0.3 Baso # (Auto) 0.1 Abs Immat Gran (auto) 0.10 H Absolute Neuts (auto) 3.2 Absolute Nucleated RBC 0.000 Nucleated RBC % (auto) 0.0 Sodium 137 Potassium 3.5 Chloride 105 Carbon Dioxide 20 L Anion Gap 16 BUN 28 H Creatinine 3.22 H Estim Creat Clear Calc 37.8 Estimated GFR 20 POC Glucose 100 Fasting Glucose 93 Calcium 9.7 Total Bilirubin 0.3 AST 11 ALT 7 Alkaline Phosphatase 124 H Total Protein 6.5 Albumin 3.2 L Microbiology Microbiology Results: Microbiology 07/20/23 22:49 Blood - Venous Blood Culture - Final No growth after 5 days. 07/20/23 22:49 Blood - Venous Blood Culture - Final No growth after 5 days. 07/12/23 12:30 Blood - Venous Blood Culture - Final No growth after 5 days. 07/12/23 12:15 Blood - Venous Blood Culture - Final No growth after 5 days. 07/12/23 Unknown Urine Catheterized - Straight Catheter Urine Culture - Final No growth. 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
--- NOTE | 2023-10-14 11:00 | HO.WOUND ---
Wound Consult Discontinued 53yr old?Male admitted to [facility] [place] on 07/12/23 - See progress notes and H&P for detailed history.? Wound consult originally placed for Left Buttock wound POA.?The patient was noted for MASD at the time. Chart review and discussed with direct care team no open tissue at this time and no concerns for pressure injury - report tissue remains intact pink but blanchable. Will discontinue wound consult and direct care team aware to place new order should skin injury or concern for injury arise.
[2023-10-14 11:34] LABS: Glucose, Whole Blood 93 mg/dL (60-115)
[2023-10-14] MEDS: Acetaminophen 325 MG TABLET 650 MG PO (14:07)
[2023-10-14 16:00] VITALS: BP 117/72; PULSE 97; RESP 14; TEMP 36.2; O2SAT 97
--- NOTE | 2023-10-14 16:04 | HO.PM.IMPN ---
Subjective Subjective Date of Service: 10/14/23 Interval History: Seen and examined this morning Follow-up for placement Ambulated with physical therapy down the hallway Diarrhea improving Review of Systems Review of Systems: Yes all other systems are reviewed and are negative Constitutional Constitutional: Denies chills and Denies fever(s) Cardiovascular Cardiovascular: Denies chest pain, Denies palpitations and Denies dyspnea Respiratory Respiratory: Denies cough and Denies dyspnea Endocrine Endocrine: Denies palpitations Physical Exam Vital Signs: Vital Signs: Last Vital Signs Temp 98.7 F 10/14/23 07:48 Pulse 98 10/14/23 07:48 Resp 14 10/14/23 07:48 BP 106/72 10/14/23 07:48 Pulse Ox 96 10/14/23 07:48 O2 Del Method Room Air 10/14/23 07:48 O2 Flow Rate 2 09/17/23 12:00 BMI result Body Mass Index 49.2 Const: General: cooperative, comfortable, no acute distress, alert and awake Nutritional Appearance: obese Orientation/consciousness: patient oriented x3 Chest: Other: right permcath Resp: Effort & Inspection: normal respiratory effort, able to speak in complete sentences, no respiratory distress and no use of accessory muscles Cardio: Rate: tachycardic GI: Inspection: No distended Palpation (GI): Soft to palpation and nontender Neuro: General: patient oriented x3, moves all extremities and CN's II-XI intact bilaterally Extrem: Other: dry skin b/l feet, no erythema no leg swelling Psych: Affect: Blunted affect present Objective Data Active Medications Acetaminophen (Acetaminophen 325 Mg Tablet) 650 mg PO Q6H PRN PRN Reason: Pain, Mild (Pain Scale 1-3) Last Admin: 10/14/23 14:07 Dose: 650 mg Documented By: CLAUDIA Apixaban (Apixaban 5 Mg Tablet) 10 mg PO BID [facility] Stop: 10/15/23 09:01 Last Admin: 10/14/23 08:14 Dose: 10 mg Documented By: CLAUDIA Apixaban (Apixaban 5 Mg Tablet) 5 mg PO BID [facility] Stop: 02/25/25 21:01 Aripiprazole (Aripiprazole 5 Mg Tablet) 2.5 mg PO DAILY [facility] Last Admin: 10/14/23 08:13 Dose: 2.5 mg Documented By: CLAUDIA Calcium Carbonate (Calcium Carbonate 750 Mg Tab.Chew) 750 mg PO Q6H PRN PRN Reason: Heartburn Last Admin: 10/06/23 20:43 Dose: 750 mg Documented By: KASI Fludrocortisone Acetate (Fludrocortisone Acetate 0.1 Mg Tablet) 0.1 mg PO DAILY [facility] Last Admin: 10/14/23 08:14 Dose: 0.1 mg Documented By: CLAUDIA Gabapentin (Gabapentin 100 Mg Capsule) 100 mg PO BID [facility] Last Admin: 10/14/23 08:14 Dose: 100 mg Documented By: CLAUDIA Glucose (Glucose Gel 15 Gm Gel..Gram.) 15 gm PO Q15M PRN; Protocol PRN Reason: per Hypoglycemia Standing Ord. Heparin Sodium (Porcine) (Heparin Sodium,Porcine 1,000 Unit/Ml Vial) 4,000 [facility] Last Admin: 10/13/23 15:15 Dose: Not Given Documented By: ANTON Non-Admin Reason: to be given in dialysis Heparin Sodium (Porcine) (Heparin Sodium,Porcine 5,000 Unit/Ml Vial) 5,000 unit [facility]PUSH [facility] Last Admin: 10/13/23 09:26 Dose: Not Given Documented By: ANTON Non-Admin Reason: to be given in dialysis Dextrose (D10) 250 mls @ 750 mls/hr IV Q15M PRN; Protocol PRN Reason: per Hypoglycemia Standing Ord. Midodrine (Midodrine Hcl 5 Mg Tablet) 5 mg PO TID [facility] Last Admin: 10/14/23 14:08 Dose: 5 mg Documented By: CLAUDIA Multi-Ingred Cream/Lotion/Oil/Oint (Mineral Oil/Petrolatum,White 106 Gm Tube) 1 appl TOPICAL BID [facility]; Protocol Last Admin: 10/14/23 08:14 Dose: Not Given Documented By: CLAUDIA Non-Admin Reason: Patient Refused Ondansetron HCl (Ondansetron Odt 4 Mg Tab.Rapdis) 4 mg TRANSLINGU Q6H PRN PRN Reason: Nausea and Vomiting Last Admin: 10/08/23 09:07 Dose: 4 mg Documented By: ANTON Polyethylene Glycol (Polyethylene Glycol 3350 17 Gm Powd.Pack) 17 gm PO DAILY [facility] Last Admin: 10/14/23 08:15 Dose: Not Given Documented By: CLAUDIA Non-Admin Reason: loose stools Sertraline HCl (Sertraline Hcl 25 Mg Tablet) 12.5 mg PO BEDTIME [facility] Last Admin: 10/13/23 20:02 Dose: 12.5 mg Documented By: KASI Comments: Sodium Bicarbonate (Sodium Bicarbonate 650 Mg Tablet) 650 mg PO BID [facility] Last Admin: 10/14/23 08:14 Dose: 650 mg Documented By: CLAUDIA Trazodone HCl (Trazodone Hcl 25 Mg Halftab) 25 mg PO BEDTIME [facility] Last Admin: 10/13/23 20:01 Dose: 25 mg Documented By: KASI Vancomycin HCl (Vancomycin Hcl 125 Mg Capsule) 125 mg PO Q6H [facility] Last Admin: 10/14/23 13:48 Dose: 125 mg Documented By: CLAUDIA Labs 10/14/23 05:53 10/14/23 05:53 Labs: Laboratory Results - last 24 hr 10/13/23 10/13/23 10/14/23 16:28 20:43 05:53 MCV 92.2 MCH 30.0 MCHC 32.5 RDW 14.5 Plt Count 505 H MPV 8.7 L Immature Gran % (Auto) 1.6 H Neut % (Auto) 51.2 Lymph % (Auto) 31.9 [place] % (Auto) 10.3 Eos % (Auto) 4.2 H Baso % (Auto) 0.8 Lymph # (Auto) 2.0 [place] # (Auto) 0.6 Eos # (Auto) 0.3 Baso # (Auto) 0.1 Abs Immat Gran (auto) 0.10 H Absolute Neuts (auto) 3.2 Absolute Nucleated RBC 0.000 Nucleated RBC % (auto) 0.0 Anion Gap 16 Estim Creat Clear Calc 37.8 Estimated GFR 20 POC Glucose 87 109 Fasting Glucose 93 Calcium 9.7 Total Bilirubin 0.3 AST 11 ALT 7 Alkaline Phosphatase 124 H Total Protein 6.5 Albumin 3.2 L 10/14/23 10/14/23 07:57 11:30 MCV MCH MCHC RDW Plt Count MPV Immature Gran % (Auto) Neut % (Auto) Lymph % (Auto) [place] % (Auto) Eos % (Auto) Baso % (Auto) Lymph # (Auto) [place] # (Auto) Eos # (Auto) Baso # (Auto) Abs Immat Gran (auto) Absolute Neuts (auto) Absolute Nucleated RBC Nucleated RBC % (auto) Anion Gap Estim Creat Clear Calc Estimated GFR POC Glucose 100 93 Fasting Glucose Calcium Total Bilirubin AST ALT Alkaline Phosphatase Total Protein Albumin Assessment and Plan (1) CHITO (acute kidney injury): Status: Acute (2) Acute DVT (deep venous thrombosis): Status: Acute Plan 53 years old male with PMH of DM2, HTN, Asthma who presented to ED After sustaining a fall and laying on the floor for 9 hours found to have severe acute kidney injury from rhabdomyolysis and hyperkalemia acute on chronic DVT in right common femoral vein started on eliquis 10bid x7 days then 5 bid thereafter VQ scan nondiagnostic. No sob/chest pain to suggest PE Acute sinus tachycardia improving Acute diarrhea gi panel negative cdif colonization but given acute diarrhea, we will plan to treat for 10 day course of oral vancomycin CHITO and severe hyperkalemia and acute metabolic acidosis due to ATN from rhabdomyolysis and no renal recovery and started on HD, TTS permacath placed 07/16/23 , underwent catheter change 09/28, functioning well receiving dialysis MWF stable and well compensated at this time on midodrine 5 mg t.i.d. and Florinef 0.1 mg daily UO increasing and renal function stable - plan to hold HD - can remove permcath today per nephrology add sodium bicarb 650mg BID per nephro hypokalemia- resolved replace po and follow BMP since not getting HD magnesium level pending Chronic Leg and back pain Stable, continue gabapentin 100mg BID dysphagia on NDD3 diet Depression. unspecified No behavioral issues, seen by psychiatry 08/23,on Abilify 2.5 mg daily low-dose since it can cause orthostasis, trazodone 25 mg at bedtime and Zoloft low-dose . patient tolerating current medications Acute?Rhabdomyolysis /Fall resolved with volume participating with physical therapy Diabetes type 2 stable blood sugars, last hemoglobin A1c 6.1 ,12/28/2022. follow POCs Morbid Obesity. BMI 49.2 Low-calorie diet/ weight management. Encourage ambulation. eliquis Full code reason for continued hospitalization: debilitated; safe discharge to short-term rehab. monitor UO, renal function Quality Stroke Does the patient have a stroke diagnosis?: No VTE Prior VTE?: No VTE Risk Level:: Medical - moderate - high VTE Device Contraindication: N/A - Device Ordered VTE Drug Contraindication: N/A - Med Ordered
[2023-10-14 16:45] LABS: Glucose, Whole Blood 85 mg/dL (60-115)
[2023-10-14] MEDS: traZODone HCL 25 MG HALFTAB PO (20:10)
[2023-10-14] MEDS: Sertraline HCL 25 MG TABLET 12.5 MG PO (20:10)
[2023-10-14 20:39] LABS: Glucose, Whole Blood 81 mg/dL (60-115)
[2023-10-15] VITALS: BP 115/73; PULSE 100; RESP 16; TEMP 36.3; O2SAT 98
[2023-10-15] MEDS: vancomycin HCL 125 MG CAPSULE PO ×5 (00:04→23:30)
[2023-10-15 07:23] LABS: Glucose, Whole Blood 81 mg/dL (60-115)
[2023-10-15 07:54] VITALS: BP 113/72; PULSE 100; RESP 12; TEMP 36.2; O2SAT 98
[2023-10-15] MEDS: Fludrocortisone Acetate 0.1 MG TABLET PO (08:25)
[2023-10-15] MEDS: Midodrine HCl 5 MG TABLET PO ×3 (08:25→19:55)
[2023-10-15] MEDS: ARIPiprazole 5 MG TABLET 2.5 MG PO (08:25)
[2023-10-15] MEDS: Sodium Bicarbonate 650 MG TABLET PO ×2 (08:25→19:54)
[2023-10-15] MEDS: Gabapentin 100 MG CAPSULE PO ×2 (08:25→19:54)
[2023-10-15] MEDS: Apixaban 5 MG TABLET 10 MG PO (08:26)
[2023-10-15] MEDS: Acetaminophen 325 MG TABLET 650 MG PO ×2 (08:26→17:13)
[2023-10-15 08:40] LABS: Anion Gap 20 (12-20); Blood Urea Nitrogen 25 mg/dL (9-16); Calcium 9.3 mg/dL (8.4-10.2); Carbon Dioxide 18 mmol/L (22-29); Chloride 107 mmol/L (96-108); Creatinine Clr Calc Pharmacy 40.3; Estimated Glomerular Filt Rate 22; Glucose Random 91 mg/dL (60-115); Potassium 4.2 mmol/L (3.3-5.1); Sodium 141 mmol/L (135-145)
[2023-10-15 11:31] LABS: Glucose, Whole Blood 102 mg/dL (60-115)
--- NOTE | 2023-10-15 14:52 | MHC.CM.PN ---
CM CONTINUES TO SEEK STR PLACEMENT FOR PT. [facility]ATHERINETASWEET[facility] HAS SENT CLINICALS UP FOR REVIEW AND PENDING DECISION. CM WILL CONTINUE TO FOLLOW AND SEEK PLACEMENT FOR STR.
[2023-10-15 16:00] VITALS: BP 101/66; PULSE 100; RESP 12; TEMP 36.3; O2SAT 99
[2023-10-15 16:30] LABS: Glucose, Whole Blood 87 mg/dL (60-115)
--- NOTE | 2023-10-15 16:33 | HO.PM.IMPN ---
Subjective Subjective Date of Service: 10/15/23 Interval History: seen and examined this morning follow up for renal failure, orthostatic hypotension renal function recovering, permcath removed diarrhea improving Review of Systems Review of Systems: Yes all other systems are reviewed and are negative Constitutional Constitutional: Denies fever(s) Cardiovascular Cardiovascular: Denies chest pain and Denies dyspnea Respiratory Respiratory: Denies dyspnea Gastrointestinal Gastrointestinal: Denies abdominal pain Physical Exam Vital Signs: Vital Signs: Last Vital Signs Temp 97.3 F 10/15/23 16:00 Pulse 100 10/15/23 16:00 Resp 12 10/15/23 16:00 BP 101/66 10/15/23 16:00 Pulse Ox 99 10/15/23 16:00 O2 Del Method Room Air 10/15/23 16:00 O2 Flow Rate 2 09/17/23 12:00 BMI result Body Mass Index 49.2 Const: General: cooperative, comfortable, no acute distress, alert and awake Nutritional Appearance: obese Orientation/consciousness: patient oriented x3 Chest: Other: right permcath removed; site bandage c/d/i Resp: Effort & Inspection: normal respiratory effort, able to speak in complete sentences, no respiratory distress and no use of accessory muscles Cardio: Rate: regular rate GI: Inspection: No distended Palpation (GI): Soft to palpation and nontender Neuro: General: patient oriented x3, moves all extremities and CN's II-XI intact bilaterally Extrem: Other: dry skin b/l feet, no erythema no leg swelling Psych: Affect: Blunted affect present Objective Data Active Medications Acetaminophen (Acetaminophen 325 Mg Tablet) 650 mg PO Q6H PRN PRN Reason: Pain, Mild (Pain Scale 1-3) Last Admin: 10/15/23 08:26 Dose: 650 mg Documented By: NARCISA Apixaban (Apixaban 5 Mg Tablet) 5 mg PO BID [facility] Stop: 02/25/25 21:01 Aripiprazole (Aripiprazole 5 Mg Tablet) 2.5 mg PO DAILY [facility] Last Admin: 10/15/23 08:25 Dose: 2.5 mg Documented By: NARCISA Calcium Carbonate (Calcium Carbonate 750 Mg Tab.Chew) 750 mg PO Q6H PRN PRN Reason: Heartburn Last Admin: 10/06/23 20:43 Dose: 750 mg Documented By: KASI Fludrocortisone Acetate (Fludrocortisone Acetate 0.1 Mg Tablet) 0.1 mg PO DAILY [facility] Last Admin: 10/15/23 08:25 Dose: 0.1 mg Documented By: NARCISA Gabapentin (Gabapentin 100 Mg Capsule) 100 mg PO BID [facility] Last Admin: 10/15/23 08:25 Dose: 100 mg Documented By: NARCISA Glucose (Glucose Gel 15 Gm Gel..Gram.) 15 gm PO Q15M PRN; Protocol PRN Reason: per Hypoglycemia Standing Ord. Heparin Sodium (Porcine) (Heparin Sodium,Porcine 1,000 Unit/Ml Vial) 4,000 unit IV [facility] Last Admin: 10/15/23 14:25 Dose: Not Given Documented By: NARCISA Non-Admin Reason: no dialysis at this time Heparin Sodium (Porcine) (Heparin Sodium,Porcine 5,000 Unit/Ml Vial) 5,000 unit IVPUSH [facility] Last Admin: 10/15/23 08:11 Dose: Not Given Documented By: NARCISA Non-Admin Reason: to be given by dialysis nurse Dextrose (D10) 250 mls @ 750 mls/hr IV Q15M PRN; Protocol PRN Reason: per Hypoglycemia Standing Ord. Midodrine (Midodrine Hcl 5 Mg Tablet) 5 mg PO TID [facility] Last Admin: 10/15/23 14:28 Dose: 5 mg Documented By: NARCISA Multi-Ingred Cream/Lotion/Oil/Oint (Mineral Oil/Petrolatum,White 106 Gm Tube) 1 appl TOPICAL BID [facility]; Protocol Last Admin: 10/15/23 08:26 Dose: Not Given Documented By: NARCISA Non-Admin Reason: Patient Refused Ondansetron HCl (Ondansetron Odt 4 Mg Tab.Rapdis) 4 mg TRANSLINGU Q6H PRN PRN Reason: Nausea and Vomiting Last Admin: 10/08/23 09:07 Dose: 4 mg Documented By: ANTON Polyethylene Glycol (Polyethylene Glycol 3350 17 Gm Powd.Pack) 17 gm PO DAILY [facility] Last Admin: 10/15/23 08:11 Dose: Not Given Documented By: NARCISA Non-Admin Reason: loose stools Sertraline HCl (Sertraline Hcl 25 Mg Tablet) 12.5 mg PO BEDTIME [facility] Last Admin: 10/14/23 20:10 Dose: 12.5 mg Documented By: JOSE LUIS Sodium Bicarbonate (Sodium Bicarbonate 650 Mg Tablet) 650 mg PO BID [facility] Last Admin: 10/15/23 08:25 Dose: 650 mg Documented By: NARCISA Trazodone HCl (Trazodone Hcl 25 Mg Halftab) 25 mg PO BEDTIME [facility] Last Admin: 10/14/23 20:10 Dose: 25 mg Documented By: JOSE LUIS Vancomycin HCl (Vancomycin Hcl 125 Mg Capsule) 125 mg PO Q6H [facility] Stop: 10/21/23 12:59 Last Admin: 10/15/23 14:28 Dose: 125 mg Documented By: NARCISA Labs 10/14/23 05:53 10/15/23 08:07 Labs: Laboratory Results - last 24 hr 10/14/23 10/14/23 10/15/23 16:32 20:35 07:15 Anion Gap Estim Creat Clear Calc Estimated GFR POC Glucose 85 81 81 Random Glucose Calcium 10/15/23 10/15/23 10/15/23 08:07 11:13 16:25 Anion Gap 20 Estim Creat Clear Calc 40.3 Estimated GFR 22 POC Glucose 102 87 Random Glucose 91 Calcium 9.3 Assessment and Plan (1) C. difficile diarrhea: Status: Acute (2) Acute DVT (deep venous thrombosis): Status: Acute Plan 53 years old male with PMH of DM2, HTN, Asthma who presented to ED After sustaining a fall and laying on the floor for 9 hours found to have severe acute kidney injury from rhabdomyolysis and hyperkalemia acute on chronic DVT in right common femoral vein started on eliquis completed loading dose, continue 5 bid VQ scan nondiagnostic. No sob/chest pain to suggest PE Acute sinus tachycardia improving Acute diarrhea gi panel negative cdif colonization but given acute diarrhea, we will plan to treat for 10 day course of oral vancomycin - end date 10/20 CHITO and severe hyperkalemia and acute metabolic acidosis due to ATN from rhabdomyolysis started on HD permacath placed 07/16/23, underwent catheter change 09/28, functioning well on midodrine 5 mg t.i.d. and Florinef 0.1 mg daily now with renal recovery - permcath removed 10/13. renal function remains stable continue po sodium bicarb hypokalemia- resolved resolved Chronic Leg and back pain Stable, continue gabapentin 100mg BID dysphagia on NDD3 diet Depression. unspecified No behavioral issues, seen by psychiatry 08/23,on Abilify 2.5 mg daily low-dose since it can cause orthostasis, trazodone 25 mg at bedtime and Zoloft low-dose . patient tolerating current medications Acute?Rhabdomyolysis /Fall resolved with volume participating with physical therapy Diabetes type 2 stable blood sugars, last hemoglobin A1c 6.1 ,12/28/2022. follow POCs Morbid Obesity. BMI 49.2 Low-calorie diet/ weight management. Encourage ambulation. dvt ppx - eliquis Full code reason for continued hospitalization: debilitated; safe discharge to short-term rehab. monitor UO, renal function Quality Stroke Does the patient have a stroke diagnosis?: No VTE Prior VTE?: No VTE Risk Level:: Medical - moderate - high VTE Device Contraindication: N/A - Device Ordered VTE Drug Contraindication: N/A - Med Ordered
--- NOTE | 2023-10-15 18:02 | P.PNNP_ITS ---
Subjective Subjective Date of Service: 10/15/23 Principal diagnosis: Elevated troponins Interval history: seen and examined this morning. Renal function recovering, permcath removed Physical Exam 2 Vital Signs: Vital Signs: Last Vital Signs Temp 97.3 F 10/15/23 16:00 Pulse 100 10/15/23 16:00 Resp 12 10/15/23 16:00 BP 101/66 10/15/23 16:00 Pulse Ox 99 10/15/23 16:00 O2 Del Method Room Air 10/15/23 16:00 O2 Flow Rate 2 09/17/23 12:00 BMI result Body Mass Index 49.2 Const: General: no acute distress Orientation/consciousness: patient oriented x3 Eyes: EOM: EOMs intact bilaterally Neck: Neck: Yes supple Resp: Auscultation: diminished lung sounds Cardio: Rate: regular rate GI: Palpation (GI): Soft to palpation Neuro: General: patient oriented x3 and moves all extremities Objective Data Labs 10/14/23 05:53 10/15/23 08:07 Labs: Laboratory Results - last 24 hr 10/14/23 10/15/23 10/15/23 20:35 07:15 08:07 Sodium 141 Potassium 4.2 Chloride 107 Carbon Dioxide 18 L Anion Gap 20 BUN 25 H Creatinine 3.02 H Estim Creat Clear Calc 40.3 Estimated GFR 22 POC Glucose 81 81 Random Glucose 91 Calcium 9.3 10/15/23 10/15/23 11:13 16:25 Sodium Potassium Chloride Carbon Dioxide Anion Gap BUN Creatinine Estim Creat Clear Calc Estimated GFR POC Glucose 102 87 Random Glucose Calcium Microbiology Microbiology Results: Microbiology 07/20/23 22:49 Blood - Venous Blood Culture - Final No growth after 5 days. 07/20/23 22:49 Blood - Venous Blood Culture - Final No growth after 5 days. 07/12/23 12:30 Blood - Venous Blood Culture - Final No growth after 5 days. 07/12/23 12:15 Blood - Venous Blood Culture - Final No growth after 5 days. 07/12/23 Unknown Urine Catheterized - Straight Catheter Urine Culture - Final No growth. 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
[2023-10-15] MEDS: Apixaban 5 MG TABLET PO (19:54)
[2023-10-15] MEDS: Sertraline HCL 25 MG TABLET 12.5 MG PO (19:55)
[2023-10-15] MEDS: traZODone HCL 25 MG HALFTAB PO (19:55)
[2023-10-15 20:04] LABS: Glucose, Whole Blood 89 mg/dL (60-115)
[2023-10-15 23:21] VITALS: BP 113/74; PULSE 99; RESP 16; TEMP 36.4; O2SAT 94
[2023-10-16] MEDS: vancomycin HCL 125 MG CAPSULE PO ×3 (06:07→18:05)
[2023-10-16 07:38] VITALS: BP 106/67; PULSE 101; RESP 18; TEMP 36.3; O2SAT 95
[2023-10-16 07:40] LABS: Glucose, Whole Blood 91 mg/dL (60-115)
[2023-10-16 07:51] LABS: Anion Gap 16 (12-20); Blood Urea Nitrogen 22 mg/dL (9-16); Calcium 9.4 mg/dL (8.4-10.2); Carbon Dioxide 21 mmol/L (22-29); Chloride 105 mmol/L (96-108); Creatinine Clr Calc Pharmacy 40.7; Estimated Glomerular Filt Rate 22; Glucose Random 94 mg/dL (60-115); Potassium 3.3 mmol/L (3.3-5.1); Sodium 139 mmol/L (135-145)
[2023-10-16] MEDS: Apixaban 5 MG TABLET PO ×2 (08:15→19:23)
[2023-10-16] MEDS: Gabapentin 100 MG CAPSULE PO ×2 (08:16→19:23)
[2023-10-16] MEDS: Sodium Bicarbonate 650 MG TABLET PO ×2 (08:16→19:23)
[2023-10-16] MEDS: Fludrocortisone Acetate 0.1 MG TABLET PO (08:16)
[2023-10-16] MEDS: ARIPiprazole 5 MG TABLET 2.5 MG PO (08:16)
[2023-10-16] MEDS: Midodrine HCl 5 MG TABLET PO ×3 (08:16→19:23)
[2023-10-16 11:18] LABS: Glucose, Whole Blood 85 mg/dL (60-115)
--- NOTE | 2023-10-16 13:00 | HO.PM.IMPN ---
Subjective Subjective Date of Service: 10/16/23 Interval History: seen and examined this morning follow up for placement no overnight events no specific complaints this morning has been moving around and up to chair Review of Systems Review of Systems: Yes all other systems are reviewed and are negative Constitutional Constitutional: Denies chills and Denies fever(s) Cardiovascular Cardiovascular: Denies chest pain, Denies palpitations and Denies dyspnea Respiratory Respiratory: Denies cough and Denies dyspnea Endocrine Endocrine: Denies palpitations Physical Exam Vital Signs: Vital Signs: Last Vital Signs Temp 97.4 F 10/16/23 07:38 Pulse 101 H 10/16/23 07:38 Resp 18 10/16/23 07:38 BP 106/67 10/16/23 07:38 Pulse Ox 95 10/16/23 07:38 O2 Del Method Room Air 10/16/23 07:38 O2 Flow Rate 2 09/17/23 12:00 BMI result Body Mass Index 49.2 Const: General: cooperative, comfortable, no acute distress, alert and awake Nutritional Appearance: obese Orientation/consciousness: patient oriented x3 Chest: Other: right permcath removed; site bandage c/d/i Resp: Effort & Inspection: normal respiratory effort, able to speak in complete sentences, no respiratory distress and no use of accessory muscles Cardio: Rate: regular rate and tachycardic GI: Inspection: No distended Palpation (GI): Soft to palpation and nontender Neuro: General: patient oriented x3, moves all extremities and CN's II-XI intact bilaterally Extrem: Other: dry skin b/l feet, no erythema no leg swelling Psych: Affect: Blunted affect present Objective Data Active Medications Acetaminophen (Acetaminophen 325 Mg Tablet) 650 mg PO Q6H PRN PRN Reason: Pain, Mild (Pain Scale 1-3) Last Admin: 10/15/23 17:13 Dose: 650 mg Documented By: ANTON Apixaban (Apixaban 5 Mg Tablet) 5 mg PO BID [facility] Stop: 02/25/25 21:01 Last Admin: 10/16/23 08:15 Dose: 5 mg Documented By: CHUY Aripiprazole (Aripiprazole 5 Mg Tablet) 2.5 mg PO DAILY [facility] Last Admin: 10/16/23 08:16 Dose: 2.5 mg Documented By: CHUY Calcium Carbonate (Calcium Carbonate 750 Mg Tab.Chew) 750 mg PO Q6H PRN PRN Reason: Heartburn Last Admin: 10/06/23 20:43 Dose: 750 mg Documented By: KASI Fludrocortisone Acetate (Fludrocortisone Acetate 0.1 Mg Tablet) 0.1 mg PO DAILY [facility] Last Admin: 10/16/23 08:16 Dose: 0.1 mg Documented By: CHUY Gabapentin (Gabapentin 100 Mg Capsule) 100 mg PO BID [facility] Last Admin: 10/16/23 08:16 Dose: 100 mg Documented By: CHUY Glucose (Glucose Gel 15 Gm Gel..Gram.) 15 gm PO Q15M PRN; Protocol PRN Reason: per Hypoglycemia Standing Ord. Heparin Sodium (Porcine) (Heparin Sodium,Porcine 1,000 Unit/Ml Vial) 4,000 unit IV MOWEFR [facility] Last Admin: 10/15/23 14:25 Dose: Not Given Documented By: NARCISA Non-Admin Reason: no dialysis at this time Heparin Sodium (Porcine) (Heparin Sodium,Porcine 5,000 Unit/Ml Vial) 5,000 unit IVPUSH MOWEFR [facility] Last Admin: 10/15/23 08:11 Dose: Not Given Documented By: NARCISA Non-Admin Reason: to be given by dialysis nurse Dextrose (D10) 250 mls @ 750 mls/hr IV Q15M PRN; Protocol PRN Reason: per Hypoglycemia Standing Ord. Midodrine (Midodrine Hcl 5 Mg Tablet) 5 mg PO TID [facility] Last Admin: 10/16/23 08:16 Dose: 5 mg Documented By: CHUY Multi-Ingred Cream/Lotion/Oil/Oint (Mineral Oil/Petrolatum,White 106 Gm Tube) 1 appl TOPICAL BID [facility]; Protocol Last Admin: 10/16/23 07:36 Dose: Not Given Documented By: CHUY Non-Admin Reason: Patient Refused Ondansetron HCl (Ondansetron Odt 4 Mg Tab.Rapdis) 4 mg TRANSLINGU Q6H PRN PRN Reason: Nausea and Vomiting Last Admin: 10/08/23 09:07 Dose: 4 mg Documented By: ANTON Polyethylene Glycol (Polyethylene Glycol 3350 17 Gm Powd.Pack) 17 gm PO DAILY [facility] Last Admin: 10/16/23 07:36 Dose: Not Given Documented By: CHUY Non-Admin Reason: Patient Refused Sertraline HCl (Sertraline Hcl 25 Mg Tablet) 12.5 mg PO BEDTIME [facility] Last Admin: 10/15/23 19:55 Dose: 12.5 mg Documented By: JOSE LUIS Sodium Bicarbonate (Sodium Bicarbonate 650 Mg Tablet) 650 mg PO BID [facility] Last Admin: 10/16/23 08:16 Dose: 650 mg Documented By: CHUY Trazodone HCl (Trazodone Hcl 25 Mg Halftab) 25 mg PO BEDTIME [facility] Last Admin: 10/15/23 19:55 Dose: 25 mg Documented By: JOSE LUIS Vancomycin HCl (Vancomycin Hcl 125 Mg Capsule) 125 mg PO Q6H [facility] Stop: 10/21/23 12:59 Last Admin: 10/16/23 12:02 Dose: 125 mg Documented By: CHUY Labs 10/14/23 05:53 10/16/23 06:59 Labs: Laboratory Results - last 24 hr 10/15/23 10/15/23 10/16/23 16:25 20:00 06:59 Anion Gap 16 Estim Creat Clear Calc 40.7 Estimated GFR 22 POC Glucose 87 89 Random Glucose 94 Calcium 9.4 10/16/23 10/16/23 07:34 11:14 Anion Gap Estim Creat Clear Calc Estimated GFR POC Glucose 91 85 Random Glucose Calcium Assessment and Plan (1) Acute DVT (deep venous thrombosis): Status: Acute (2) Tachycardia: Status: Acute Plan 53 years old male with PMH of DM2, HTN, Asthma who presented to ED After sustaining a fall and laying on the floor for 9 hours found to have severe acute kidney injury from rhabdomyolysis and hyperkalemia acute on chronic DVT in right common femoral vein started on eliquis completed loading dose, continue 5 bid VQ scan nondiagnostic. No sob/chest pain to suggest PE Acute sinus tachycardia improving Acute diarrhea gi panel negative cdif colonization but given acute diarrhea, will plan to treat for 10 day course of oral vancomycin - end date 10/20 CHITO and severe hyperkalemia and acute metabolic acidosis due to ATN from rhabdomyolysis started on HD permacath placed 07/16/23, underwent catheter change 09/28, functioning well on midodrine 5 mg t.i.d. and Florinef 0.1 mg daily now with renal recovery - permcath removed 10/13. renal function remains stable continue po sodium bicarb hypokalemia- resolved resolved Chronic Leg and back pain Stable, continue gabapentin 100mg BID dysphagia on NDD3 diet Depression. unspecified No behavioral issues, seen by psychiatry 08/23,on Abilify 2.5 mg daily low-dose since it can cause orthostasis, trazodone 25 mg at bedtime and Zoloft low-dose . patient tolerating current medications Acute?Rhabdomyolysis /Fall resolved with volume participating with physical therapy Diabetes type 2 stable blood sugars, last hemoglobin A1c 6.1 ,12/28/2022. follow POCs Morbid Obesity. BMI 49.2 Low-calorie diet/ weight management. Encourage ambulation. dvt ppx - eliquis Full code reason for continued hospitalization: debilitated; safe discharge to short-term rehab. monitor UO, renal function Quality Stroke Does the patient have a stroke diagnosis?: No VTE Prior VTE?: No VTE Risk Level:: Medical - moderate - high VTE Device Contraindication: N/A - Device Ordered VTE Drug Contraindication: N/A - Med Ordered
[2023-10-16 16:09] VITALS: BP 111/77; PULSE 90; RESP 18; TEMP 36.1; O2SAT 97
[2023-10-16 16:37] LABS: Glucose, Whole Blood 80 mg/dL (60-115)
[2023-10-16] MEDS: traZODone HCL 25 MG HALFTAB PO (19:23)
[2023-10-16] MEDS: Sertraline HCL 25 MG TABLET 12.5 MG PO (19:23)
[2023-10-16 20:19] LABS: Glucose, Whole Blood 83 mg/dL (60-115)
[2023-10-16 23:24] VITALS: BP 114/71; PULSE 100; RESP 16; TEMP 36.4; O2SAT 97
[2023-10-17] MEDS: vancomycin HCL 125 MG CAPSULE PO ×4 (05:12→18:10)
[2023-10-17 07:26] LABS: Anion Gap 15 (12-20); Blood Urea Nitrogen 18 mg/dL (9-16); Calcium 9.3 mg/dL (8.4-10.2); Carbon Dioxide 24 mmol/L (22-29); Chloride 105 mmol/L (96-108); Estimated Glomerular Filt Rate 23; Glucose Random 90 mg/dL (60-115); Potassium 3.4 mmol/L (3.3-5.1); Sodium 141 mmol/L (135-145)
[2023-10-17 07:31] LABS: Glucose, Whole Blood 84 mg/dL (60-115)
[2023-10-17] MEDS: ARIPiprazole 5 MG TABLET 2.5 MG PO (08:18)
[2023-10-17] MEDS: Sodium Bicarbonate 650 MG TABLET PO ×2 (08:18→20:27)
[2023-10-17] MEDS: Fludrocortisone Acetate 0.1 MG TABLET PO (08:18)
[2023-10-17] MEDS: Gabapentin 100 MG CAPSULE PO ×2 (08:18→20:27)
[2023-10-17] MEDS: Acetaminophen 325 MG TABLET 650 MG PO (08:18)
[2023-10-17] MEDS: Midodrine HCl 5 MG TABLET PO ×3 (08:19→20:26)
[2023-10-17] MEDS: Apixaban 5 MG TABLET PO ×2 (08:19→20:27)
[2023-10-17 08:24] VITALS: BP 106/67; PULSE 112; RESP 18; TEMP 37.1; O2SAT 96
[2023-10-17 11:50] LABS: Glucose, Whole Blood 88 mg/dL (60-115)
--- NOTE | 2023-10-17 13:33 | P.PNIM_ITS ---
Subjective Subjective Date of Service: 10/17/23 Interval History: Seen and examined this morning Follow-up for placement No overnight events No specific complaints this morning Review of Systems Review of Systems: Yes all other systems are reviewed and are negative Constitutional Constitutional: Denies chills and Denies fever(s) Cardiovascular Cardiovascular: Denies chest pain, Denies palpitations and Denies dyspnea Respiratory Respiratory: Denies cough and Denies dyspnea Endocrine Endocrine: Denies palpitations Physical Exam 2 Vital Signs: Vital Signs: Last Vital Signs Temp 98.7 F 10/17/23 08:24 Pulse 112 H 10/17/23 08:24 Resp 18 10/17/23 08:24 BP 106/67 10/17/23 08:24 Pulse Ox 96 10/17/23 08:24 O2 Del Method Room Air 10/17/23 08:24 O2 Flow Rate 2 09/17/23 12:00 BMI result Body Mass Index 49.2 Const: General: cooperative, comfortable, no acute distress, alert and awake Nutritional Appearance: obese Orientation/consciousness: patient oriented x3 Chest: Other: right permcath removed; site bandage c/d/i Resp: Effort & Inspection: normal respiratory effort, able to speak in complete sentences, no respiratory distress and no use of accessory muscles Cardio: Rate: regular rate and tachycardic GI: Inspection: No distended Palpation (GI): Soft to palpation and nontender Neuro: General: patient oriented x3, moves all extremities and CN's II-XI intact bilaterally Extrem: Other: dry skin b/l feet, no erythema no leg swelling Objective Data Active Medications Acetaminophen (Acetaminophen 325 Mg Tablet) 650 mg PO Q6H PRN PRN Reason: Pain, Mild (Pain Scale 1-3) Last Admin: 10/17/23 08:18 Dose: 650 mg Documented By: ROSENDO Apixaban (Apixaban 5 Mg Tablet) 5 mg PO BID [facility] Stop: 02/25/25 21:01 Last Admin: 10/17/23 08:19 Dose: 5 mg Documented By: ROSENDO Aripiprazole (Aripiprazole 5 Mg Tablet) 2.5 mg PO DAILY [facility] Last Admin: 10/17/23 08:18 Dose: 2.5 mg Documented By: ROSENDO Calcium Carbonate (Calcium Carbonate 750 Mg Tab.Chew) 750 mg PO Q6H PRN PRN Reason: Heartburn Last Admin: 10/06/23 20:43 Dose: 750 mg Documented By: KASI Fludrocortisone Acetate (Fludrocortisone Acetate 0.1 Mg Tablet) 0.1 mg PO DAILY [facility] Last Admin: 10/17/23 08:18 Dose: 0.1 mg Documented By: ROSENDO Gabapentin (Gabapentin 100 Mg Capsule) 100 mg PO BID [facility] Last Admin: 10/17/23 08:18 Dose: 100 mg Documented By: ROSENDO Glucose (Glucose Gel 15 Gm Gel..Gram.) 15 gm PO Q15M PRN; Protocol PRN Reason: per Hypoglycemia Standing Ord. Heparin Sodium (Porcine) (Heparin Sodium,Porcine 1,000 Unit/Ml Vial) 4,000 unit IV MOWEFR [facility] Last Admin: 10/15/23 14:25 Dose: Not Given Documented By: NARCISA Non-Admin Reason: no dialysis at this time Heparin Sodium (Porcine) (Heparin Sodium,Porcine 5,000 Unit/Ml Vial) 5,000 unit IVPUSH MOWEFR [facility] Last Admin: 10/15/23 08:11 Dose: Not Given Documented By: NARCISA Non-Admin Reason: to be given by dialysis nurse Dextrose (D10) 250 mls @ 750 mls/hr IV Q15M PRN; Protocol PRN Reason: per Hypoglycemia Standing Ord. Midodrine (Midodrine Hcl 5 Mg Tablet) 5 mg PO TID [facility] Last Admin: 10/17/23 08:19 Dose: 5 mg Documented By: ROSENDO Multi-Ingred Cream/Lotion/Oil/Oint (Mineral Oil/Petrolatum,White 106 Gm Tube) 1 appl TOPICAL BID [facility]; Protocol Last Admin: 10/17/23 08:19 Dose: Not Given Documented By: ROSENDO Non-Admin Reason: Patient Refused Ondansetron HCl (Ondansetron Odt 4 Mg Tab.Rapdis) 4 mg TRANSLINGU Q6H PRN PRN Reason: Nausea and Vomiting Last Admin: 10/08/23 09:07 Dose: 4 mg Documented By: ANTON Polyethylene Glycol (Polyethylene Glycol 3350 17 Gm Powd.Pack) 17 gm PO DAILY [facility] Last Admin: 10/17/23 08:20 Dose: Not Given Documented By: RSOENDO Non-Admin Reason: Patient Refused Sertraline HCl (Sertraline Hcl 25 Mg Tablet) 12.5 mg PO BEDTIME [facility] Last Admin: 10/16/23 19:23 Dose: 12.5 mg Documented By: JOSE LUIS Sodium Bicarbonate (Sodium Bicarbonate 650 Mg Tablet) 650 mg PO BID [facility] Last Admin: 10/17/23 08:18 Dose: 650 mg Documented By: ROSENDO Trazodone HCl (Trazodone Hcl 25 Mg Halftab) 25 mg PO BEDTIME [facility] Last Admin: 10/16/23 19:23 Dose: 25 mg Documented By: JOSE LUIS Vancomycin HCl (Vancomycin Hcl 125 Mg Capsule) 125 mg PO Q6H [facility] Stop: 10/21/23 12:59 Last Admin: 10/17/23 12:39 Dose: 125 mg Documented By: ROSENDO Labs 10/14/23 05:53 10/17/23 06:16 Labs: Laboratory Results - last 24 hr 10/16/23 10/16/23 10/17/23 16:31 20:14 06:16 Hold Purple Top SEE NOTE Anion Gap 15 Estim Creat Clear Calc 42.0 Estimated GFR 23 POC Glucose 80 83 Random Glucose 90 Calcium 9.3 10/17/23 10/17/23 07:27 11:43 Hold Purple Top Anion Gap Estim Creat Clear Calc Estimated GFR POC Glucose 84 88 Random Glucose Calcium Assessment and Plan (1) Acute DVT (deep venous thrombosis): Status: Acute (2) C. difficile diarrhea: Status: Acute Plan 53 years old male with PMH of DM2, HTN, Asthma who presented to ED After sustaining a fall and laying on the floor for 9 hours found to have severe acute kidney injury from rhabdomyolysis and hyperkalemia acute on chronic DVT in right common femoral vein started on eliquis completed loading dose, continue 5 bid VQ scan nondiagnostic. No sob/chest pain to suggest PE Acute sinus tachycardia improving Acute diarrhea gi panel negative cdif colonization but given acute diarrhea, will plan to treat for 10 day course of oral vancomycin - end date 10/20 diarrhea improving CHITO and severe hyperkalemia and acute metabolic acidosis due to ATN from rhabdomyolysis started on HD permacath placed 07/16/23, underwent catheter change 09/28, functioning well on midodrine 5 mg t.i.d. and Florinef 0.1 mg daily now with renal recovery - permcath removed 10/13. renal function remains stable continue po sodium bicarb hypokalemia- resolved resolved Chronic Leg and back pain Stable, continue gabapentin 100mg BID dysphagia on NDD3 diet Depression. unspecified No behavioral issues, seen by psychiatry 08/23,on Abilify 2.5 mg daily low-dose since it can cause orthostasis, trazodone 25 mg at bedtime and Zoloft low-dose . patient tolerating current medications Acute?Rhabdomyolysis /Fall resolved with volume participating with physical therapy Diabetes type 2 stable blood sugars, last hemoglobin A1c 6.1 ,12/28/2022. follow POCs Morbid Obesity. BMI 49.2 Low-calorie diet/ weight management. Encourage ambulation. dvt ppx - eliquis Full code reason for continued hospitalization: debilitated; safe discharge to short-term rehab. monitor UO, renal function Quality Stroke Does the patient have a stroke diagnosis?: No VTE Prior VTE?: No VTE Risk Level:: Medical - moderate - high VTE Device Contraindication: N/A - Device Ordered VTE Drug Contraindication: N/A - Med Ordered
[2023-10-17 16:01] VITALS: BP 116/71; PULSE 100; RESP 18; TEMP 36.7; O2SAT 99
[2023-10-17 16:24] LABS: Glucose, Whole Blood 88 mg/dL (60-115)
[2023-10-17 18:55] VITALS: BP 117/74; PULSE 99; RESP 16; TEMP 36.1; O2SAT 97
[2023-10-17] MEDS: Sertraline HCL 25 MG TABLET 12.5 MG PO (20:26)
[2023-10-17] MEDS: traZODone HCL 25 MG HALFTAB PO (20:27)
[2023-10-17 20:45] LABS: Glucose, Whole Blood 93 mg/dL (60-115)
[2023-10-17 23:50] VITALS: BP 123/77; PULSE 98; RESP 18; TEMP 36.2; O2SAT 96
[2023-10-18] MEDS: vancomycin HCL 125 MG CAPSULE PO ×4 (00:01→18:19)
[2023-10-18 06:49] LABS: Anion Gap 16 (12-20); Blood Urea Nitrogen 16 mg/dL (9-16); Calcium 9.6 mg/dL (8.4-10.2); Carbon Dioxide 24 mmol/L (22-29); Chloride 104 mmol/L (96-108); Creatinine Clr Calc Pharmacy 44.5; Estimated Glomerular Filt Rate 25; Glucose Random 87 mg/dL (60-115); Potassium 3.5 mmol/L (3.3-5.1); Sodium 140 mmol/L (135-145)
[2023-10-18 07:20] LABS: Glucose, Whole Blood 89 mg/dL (60-115)
[2023-10-18 08:02] VITALS: BP 121/77; PULSE 117; RESP 18; TEMP 36.4; O2SAT 96
[2023-10-18] MEDS: Apixaban 5 MG TABLET PO ×2 (08:22→20:27)
[2023-10-18] MEDS: Sodium Bicarbonate 650 MG TABLET PO ×2 (08:23→20:27)
[2023-10-18] MEDS: Midodrine HCl 5 MG TABLET PO ×3 (08:23→20:27)
[2023-10-18] MEDS: Gabapentin 100 MG CAPSULE PO ×2 (08:23→20:27)
[2023-10-18] MEDS: ARIPiprazole 5 MG TABLET 2.5 MG PO (08:23)
[2023-10-18] MEDS: Fludrocortisone Acetate 0.1 MG TABLET PO (08:23)
[2023-10-18] MEDS: Acetaminophen 325 MG TABLET 650 MG PO (08:33)
--- NOTE | 2023-10-18 09:43 | HO.PM.IMPN ---
Subjective Subjective Date of Service: 10/18/23 Interval History: Seen and examined this morning Follow-up for placement No overnight events No specific complaints this morning Review of Systems Review of Systems: Yes all other systems are reviewed and are negative Constitutional Constitutional: Denies chills and Denies fever(s) Cardiovascular Cardiovascular: Denies chest pain, Denies palpitations and Denies dyspnea Respiratory Respiratory: Denies cough and Denies dyspnea Endocrine Endocrine: Denies palpitations Physical Exam Vital Signs: Vital Signs: Last Vital Signs Temp 97.5 F 10/18/23 08:02 Pulse 117 H 10/18/23 08:02 Resp 18 10/18/23 08:02 BP 121/77 10/18/23 08:02 Pulse Ox 96 10/18/23 08:02 O2 Del Method Room Air 10/18/23 08:02 O2 Flow Rate 2 09/17/23 12:00 BMI result Body Mass Index 49.2 alert and oriented LSCTA soft abd Objective Data Active Medications Acetaminophen (Acetaminophen 325 Mg Tablet) 650 mg PO Q6H PRN PRN Reason: Pain, Mild (Pain Scale 1-3) Last Admin: 10/18/23 08:33 Dose: 650 mg Documented By: LAVON Apixaban (Apixaban 5 Mg Tablet) 5 mg PO BID [facility] [place] Stop: 02/25/25 21:01 Last Admin: 10/18/23 08:22 Dose: 5 mg Documented By: LAVON Aripiprazole (Aripiprazole 5 Mg Tablet) 2.5 mg PO DAILY [facility] [place] Last Admin: 10/18/23 08:23 Dose: 2.5 mg Documented By: LAVON Calcium Carbonate (Calcium Carbonate 750 Mg Tab.Chew) 750 mg PO Q6H PRN PRN Reason: Heartburn Last Admin: 10/06/23 20:43 Dose: 750 mg Documented By: KASI Fludrocortisone Acetate (Fludrocortisone Acetate 0.1 Mg Tablet) 0.1 mg PO DAILY [facility] [place] Last Admin: 10/18/23 08:23 Dose: 0.1 mg Documented By: LAVON Gabapentin (Gabapentin 100 Mg Capsule) 100 mg PO BID [facility] [place] Last Admin: 10/18/23 08:23 Dose: 100 mg Documented By: LAVON Glucose (Glucose Gel 15 Gm Gel..Gram.) 15 gm PO Q15M PRN; Protocol PRN Reason: per Hypoglycemia Standing Ord. Heparin Sodium (Porcine) (Heparin Sodium,Porcine 1,000 Unit/Ml Vial) 4,000 unit IV MOWEFR [facility] [place] Last Admin: 10/15/23 14:25 Dose: Not Given Documented By: NARCISA Non-Admin Reason: no dialysis at this time Heparin Sodium (Porcine) (Heparin Sodium,Porcine 5,000 Unit/Ml Vial) 5,000 unit IVPUSH MOWEFR [facility] [place] Last Admin: 10/15/23 08:11 Dose: Not Given Documented By: NARCISA Non-Admin Reason: to be given by dialysis nurse Dextrose (D10) 250 mls @ 750 mls/hr IV Q15M PRN; Protocol PRN Reason: per Hypoglycemia Standing Ord. Midodrine (Midodrine Hcl 5 Mg Tablet) 5 mg PO TID [facility] [place] Last Admin: 10/18/23 08:23 Dose: 5 mg Documented By: LAVON Multi-Ingred Cream/Lotion/Oil/Oint (Mineral Oil/Petrolatum,White 106 Gm Tube) 1 appl TOPICAL BID [facility] [place]; Protocol Last Admin: 10/18/23 08:23 Dose: Not Given Documented By: LAVON Non-Admin Reason: Patient Refused Ondansetron HCl (Ondansetron Odt 4 Mg Tab.Rapdis) 4 mg TRANSLINGU Q6H PRN PRN Reason: Nausea and Vomiting Last Admin: 10/08/23 09:07 Dose: 4 mg Documented By: ANTON Polyethylene Glycol (Polyethylene Glycol 3350 17 Gm Powd.Pack) 17 gm PO DAILY [facility] [place] Last Admin: 10/18/23 08:24 Dose: Not Given Documented By: LAVON Non-Admin Reason: Patient Refused Sertraline HCl (Sertraline Hcl 25 Mg Tablet) 12.5 mg PO BEDTIME [facility] [place] Last Admin: 10/17/23 20:26 Dose: 12.5 mg Documented By: RICARDO Sodium Bicarbonate (Sodium Bicarbonate 650 Mg Tablet) 650 mg PO BID [facility] [place] Last Admin: 10/18/23 08:23 Dose: 650 mg Documented By: LAVON Trazodone HCl (Trazodone Hcl 25 Mg Halftab) 25 mg PO BEDTIME [facility] [place] Last Admin: 10/17/23 20:27 Dose: 25 mg Documented By: RICARDO Vancomycin HCl (Vancomycin Hcl 125 Mg Capsule) 125 mg PO Q6H [facility] Stop: 10/21/23 12:59 Last Admin: 10/18/23 05:56 Dose: 125 mg Documented By: RICARDO Labs 10/14/23 05:53 10/18/23 05:47 Labs: Laboratory Results - last 24 hr 10/17/23 10/17/23 10/17/23 11:43 16:20 20:26 Anion Gap Estim Creat Clear Calc Estimated GFR POC Glucose 88 88 93 Random Glucose Calcium 10/18/23 10/18/23 05:47 07:16 Anion Gap 16 Estim Creat Clear Calc 44.5 Estimated GFR 25 POC Glucose 89 Random Glucose 87 Calcium 9.6 Assessment and Plan (1) Acute DVT (deep venous thrombosis): Status: Acute (2) C. difficile diarrhea: Status: Acute Plan 53 years old male with PMH of DM2, HTN, Asthma who presented to ED After sustaining a fall and laying on the floor for 9 hours found to have severe acute kidney injury from rhabdomyolysis and hyperkalemia acute on chronic DVT in right common femoral vein started on eliquis completed loading dose, continue 5 bid VQ scan nondiagnostic. No sob/chest pain to suggest PE Acute sinus tachycardia improving Acute diarrhea gi panel negative cdif colonization but given acute diarrhea, will plan to treat for 10 day course of oral vancomycin - end date 10/20 diarrhea improving CHITO and severe hyperkalemia and acute metabolic acidosis due to ATN from rhabdomyolysis started on HD permacath placed 07/16/23, underwent catheter change 09/28, functioning well on midodrine 5 mg t.i.d. and Florinef 0.1 mg daily now with renal recovery - permcath removed 10/13. renal function remains stable continue po sodium bicarb hypokalemia- resolved resolved Chronic Leg and back pain Stable, continue gabapentin 100mg BID dysphagia on NDD3 diet Depression. unspecified No behavioral issues, seen by psychiatry 08/23,on Abilify 2.5 mg daily low-dose since it can cause orthostasis, trazodone 25 mg at bedtime and Zoloft low-dose . patient tolerating current medications Acute?Rhabdomyolysis /Fall resolved with volume participating with physical therapy Diabetes type 2 stable blood sugars, last hemoglobin A1c 6.1 ,12/28/2022. follow POCs Morbid Obesity. BMI 49.2 Low-calorie diet/ weight management. Encourage ambulation. dvt ppx - cierra Attending Dr. Johnson Full code reason for continued hospitalization: debilitated; safe discharge to short-term rehab. monitor UO, renal function Quality Stroke Does the patient have a stroke diagnosis?: No VTE Prior VTE?: No VTE Risk Level:: Medical - moderate - high VTE Device Contraindication: N/A - Device Ordered VTE Drug Contraindication: N/A - Med Ordered
--- NOTE | 2023-10-18 09:57 | P.PNNP_ITS ---
Subjective Subjective Date of Service: 10/18/23 Principal diagnosis: Elevated troponins Interval history: Seen and examined this morning; No specific complaints this morning Physical Exam 2 Vital Signs: Vital Signs: Last Vital Signs Temp 97.5 F 10/18/23 08:02 Pulse 117 H 10/18/23 08:02 Resp 18 10/18/23 08:02 BP 121/77 10/18/23 08:02 Pulse Ox 96 10/18/23 08:02 O2 Del Method Room Air 10/18/23 08:02 O2 Flow Rate 2 09/17/23 12:00 BMI result Body Mass Index 49.2 Const: General: no acute distress Orientation/consciousness: patient oriented x3 Eyes: EOM: EOMs intact bilaterally Neck: Neck: Yes supple Resp: Auscultation: diminished lung sounds Cardio: Rate: regular rate GI: Palpation (GI): Soft to palpation Neuro: General: patient oriented x3 Objective Data Labs 10/14/23 05:53 10/18/23 05:47 Labs: Laboratory Results - last 24 hr 10/17/23 10/17/23 10/17/23 11:43 16:20 20:26 Sodium Potassium Chloride Carbon Dioxide Anion Gap BUN Creatinine Estim Creat Clear Calc Estimated GFR POC Glucose 88 88 93 Random Glucose Calcium 10/18/23 10/18/23 05:47 07:16 Sodium 140 Potassium 3.5 Chloride 104 Carbon Dioxide 24 Anion Gap 16 BUN 16 Creatinine 2.74 H Estim Creat Clear Calc 44.5 Estimated GFR 25 POC Glucose 89 Random Glucose 87 Calcium 9.6 Microbiology Microbiology Results: Microbiology 07/20/23 22:49 Blood - Venous Blood Culture - Final No growth after 5 days. 07/20/23 22:49 Blood - Venous Blood Culture - Final No growth after 5 days. 07/12/23 12:30 Blood - Venous Blood Culture - Final No growth after 5 days. 07/12/23 12:15 Blood - Venous Blood Culture - Final No growth after 5 days. 07/12/23 Unknown Urine Catheterized - Straight Catheter Urine Culture - Final No growth. 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
[2023-10-18 11:19] LABS: Glucose, Whole Blood 98 mg/dL (60-115)
[2023-10-18 15:33] VITALS: BP 122/76; PULSE 100; RESP 18; TEMP 36.3; O2SAT 96
--- NOTE | 2023-10-18 15:43 | MHC.CM.PN ---
rebecca going for auth
[2023-10-18 16:38] LABS: Glucose, Whole Blood 94 mg/dL (60-115)
[2023-10-18] MEDS: Sertraline HCL 25 MG TABLET 12.5 MG PO (20:27)
[2023-10-18] MEDS: traZODone HCL 25 MG HALFTAB PO (20:27)
[2023-10-19] VITALS: BP 113/70; PULSE 108; RESP 18; TEMP 36.3; O2SAT 96
[2023-10-19] MEDS: vancomycin HCL 125 MG CAPSULE PO ×4 (00:14→18:41)
[2023-10-19 07:45] LABS: Glucose, Whole Blood 91 mg/dL (60-115)
[2023-10-19 07:51] VITALS: BP 118/72; PULSE 100; RESP 16; TEMP 36.3; O2SAT 95
[2023-10-19] MEDS: ARIPiprazole 5 MG TABLET 2.5 MG PO (08:04)
[2023-10-19] MEDS: Sodium Bicarbonate 650 MG TABLET PO ×2 (08:06→20:19)
[2023-10-19] MEDS: Apixaban 5 MG TABLET PO ×2 (08:06→20:19)
[2023-10-19] MEDS: Gabapentin 100 MG CAPSULE PO ×2 (08:06→20:19)
[2023-10-19] MEDS: Acetaminophen 325 MG TABLET 650 MG PO ×2 (08:06→20:21)
[2023-10-19] MEDS: Midodrine HCl 5 MG TABLET PO ×3 (08:06→20:19)
[2023-10-19] MEDS: Fludrocortisone Acetate 0.1 MG TABLET PO (08:06)
--- NOTE | 2023-10-19 08:09 | P.PNIM_ITS ---
Subjective Subjective Date of Service: 10/19/23 Interval History: Seen and examined this morning Follow-up for placement No overnight events No specific complaints this morning Review of Systems Review of Systems: Yes all other systems are reviewed and are negative Constitutional Constitutional: Denies chills and Denies fever(s) Cardiovascular Cardiovascular: Denies chest pain, Denies palpitations and Denies dyspnea Respiratory Respiratory: Denies cough and Denies dyspnea Endocrine Endocrine: Denies palpitations Physical Exam 2 Vital Signs: Vital Signs: Last Vital Signs Temp 97.4 F 10/19/23 07:51 Pulse 100 10/19/23 07:51 Resp 16 10/19/23 07:51 BP 118/72 10/19/23 07:51 Pulse Ox 95 10/19/23 07:51 O2 Del Method Room Air 10/19/23 07:51 O2 Flow Rate 2 09/17/23 12:00 BMI result Body Mass Index 49.2 alert and oriented LSCTA abd soft Objective Data Active Medications Acetaminophen (Acetaminophen 325 Mg Tablet) 650 mg PO Q6H PRN PRN Reason: Pain, Mild (Pain Scale 1-3) Last Admin: 10/19/23 08:06 Dose: 650 mg Documented By: LAVON Apixaban (Apixaban 5 Mg Tablet) 5 mg PO BID [facility] Stop: 02/25/25 21:01 Last Admin: 10/19/23 08:06 Dose: 5 mg Documented By: LAVON Aripiprazole (Aripiprazole 5 Mg Tablet) 2.5 mg PO DAILY [facility] Last Admin: 10/19/23 08:04 Dose: 2.5 mg Documented By: LAVON Calcium Carbonate (Calcium Carbonate 750 Mg Tab.Chew) 750 mg PO Q6H PRN PRN Reason: Heartburn Last Admin: 10/06/23 20:43 Dose: 750 mg Documented By: KASI Fludrocortisone Acetate (Fludrocortisone Acetate 0.1 Mg Tablet) 0.1 mg PO DAILY [facility] Last Admin: 10/19/23 08:06 Dose: 0.1 mg Documented By: LAVON Gabapentin (Gabapentin 100 Mg Capsule) 100 mg PO BID [facility] Last Admin: 10/19/23 08:06 Dose: 100 mg Documented By: LAVON Glucose (Glucose Gel 15 Gm Gel..Gram.) 15 gm PO Q15M PRN; Protocol PRN Reason: per Hypoglycemia Standing Ord. Dextrose (D10) 250 mls @ 750 mls/hr IV Q15M PRN; Protocol PRN Reason: per Hypoglycemia Standing Ord. Midodrine (Midodrine Hcl 5 Mg Tablet) 5 mg PO TID [facility] Last Admin: 10/19/23 08:06 Dose: 5 mg Documented By: LAVON Multi-Ingred Cream/Lotion/Oil/Oint (Mineral Oil/Petrolatum,White 106 Gm Tube) 1 appl TOPICAL BID [facility]; Protocol Last Admin: 10/19/23 08:08 Dose: Not Given Documented By: LAVON Non-Admin Reason: Patient Refused Ondansetron HCl (Ondansetron Odt 4 Mg Tab.Rapdis) 4 mg TRANSLINGU Q6H PRN PRN Reason: Nausea and Vomiting Last Admin: 10/08/23 09:07 Dose: 4 mg Documented By: ANTON Polyethylene Glycol (Polyethylene Glycol 3350 17 Gm Powd.Pack) 17 gm PO DAILY [facility] Last Admin: 10/19/23 08:08 Dose: Not Given Documented By: LAVON Non-Admin Reason: Patient Refused Sertraline HCl (Sertraline Hcl 25 Mg Tablet) 12.5 mg PO BEDTIME [facility] Last Admin: 10/18/23 20:27 Dose: 12.5 mg Documented By: RICARDO Sodium Bicarbonate (Sodium Bicarbonate 650 Mg Tablet) 650 mg PO BID [facility] Last Admin: 10/19/23 08:06 Dose: 650 mg Documented By: LAVON Trazodone HCl (Trazodone Hcl 25 Mg Halftab) 25 mg PO BEDTIME [facility] Last Admin: 10/18/23 20:27 Dose: 25 mg Documented By: RICARDO Vancomycin HCl (Vancomycin Hcl 125 Mg Capsule) 125 mg PO Q6H [facility] Stop: 10/21/23 12:59 Last Admin: 10/19/23 06:04 Dose: 125 mg Documented By: RICARDO Labs 10/14/23 05:53 10/18/23 05:47 Labs: Laboratory Results - last 24 hr 10/18/23 10/18/23 10/19/23 11:02 16:17 07:42 POC Glucose 98 94 91 Assessment and Plan (1) Acute DVT (deep venous thrombosis): Status: Acute (2) C. difficile diarrhea: Status: Acute Plan 53 years old male with PMH of DM2, HTN, Asthma who presented to ED After sustaining a fall and laying on the floor for 9 hours found to have severe acute kidney injury from rhabdomyolysis and hyperkalemia acute on chronic DVT in right common femoral vein started on eliquis completed loading dose, continue 5 bid VQ scan nondiagnostic. No sob/chest pain to suggest PE Acute sinus tachycardia improving Acute diarrhea gi panel negative cdif colonization but given acute diarrhea, will plan to treat for 10 day course of oral vancomycin - end date 10/20 diarrhea improving CHITO and severe hyperkalemia and acute metabolic acidosis due to ATN from rhabdomyolysis started on HD permacath placed 07/16/23, underwent catheter change 09/28, functioning well on midodrine 5 mg t.i.d. and Florinef 0.1 mg daily now with renal recovery - permcath removed 10/13. renal function remains stable continue po sodium bicarb hypokalemia- resolved resolved Chronic Leg and back pain Stable, continue gabapentin 100mg BID dysphagia on NDD3 diet Depression. unspecified No behavioral issues, seen by psychiatry 08/23,on Abilify 2.5 mg daily low-dose since it can cause orthostasis, trazodone 25 mg at bedtime and Zoloft low-dose . patient tolerating current medications Acute?Rhabdomyolysis /Fall resolved with volume participating with physical therapy Diabetes type 2 stable blood sugars, last hemoglobin A1c 6.1 ,12/28/2022. follow POCs Morbid Obesity. BMI 49.2 Low-calorie diet/ weight management. Encourage ambulation. dvt ppx - eliquis Attending Dr. Johnson Full code reason for continued hospitalization: debilitated; safe discharge to short-term rehab. monitor UO, renal function Quality Stroke Does the patient have a stroke diagnosis?: No VTE Prior VTE?: No VTE Risk Level:: Medical - moderate - high VTE Device Contraindication: N/A - Device Ordered VTE Drug Contraindication: N/A - Med Ordered
[2023-10-19 11:20] LABS: Glucose, Whole Blood 95 mg/dL (60-115)
[2023-10-19 15:27] VITALS: BP 115/77; PULSE 100; RESP 20; TEMP 36.4; O2SAT 98
[2023-10-19 16:22] LABS: Glucose, Whole Blood 141 mg/dL (60-115)
--- NOTE | 2023-10-19 18:29 | P.PNNP_ITS ---
Subjective Subjective Date of Service: 10/19/23 Principal diagnosis: Elevated troponins Interval history: Seen and examined this morning; No overnight events ; No specific complaints this morning Physical Exam 2 Vital Signs: Vital Signs: Last Vital Signs Temp 97.5 F 10/19/23 15:27 Pulse 100 10/19/23 15:27 Resp 20 10/19/23 15:27 BP 115/77 10/19/23 15:27 Pulse Ox 98 10/19/23 15:27 O2 Del Method Room Air 10/19/23 15:27 O2 Flow Rate 2 09/17/23 12:00 BMI result Body Mass Index 49.2 Const: General: no acute distress Orientation/consciousness: patient oriented x3 Eyes: EOM: EOMs intact bilaterally Neck: Neck: Yes supple Resp: Auscultation: diminished lung sounds Cardio: Rate: regular rate GI: Palpation (GI): Soft to palpation Neuro: General: patient oriented x3 Objective Data Labs 10/14/23 05:53 10/18/23 05:47 Labs: Laboratory Results - last 24 hr 10/19/23 10/19/23 10/19/23 07:42 11:15 16:13 POC Glucose 91 95 141 H Microbiology Microbiology Results: Microbiology 07/20/23 22:49 Blood - Venous Blood Culture - Final No growth after 5 days. 07/20/23 22:49 Blood - Venous Blood Culture - Final No growth after 5 days. 07/12/23 12:30 Blood - Venous Blood Culture - Final No growth after 5 days. 07/12/23 12:15 Blood - Venous Blood Culture - Final No growth after 5 days. 07/12/23 Unknown Urine Catheterized - Straight Catheter Urine Culture - Final No growth. 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
[2023-10-19 19:24] VITALS: BP 120/78; PULSE 104; RESP 20; TEMP 37.2; O2SAT 98
[2023-10-19 19:40] LABS: Glucose, Whole Blood 88 mg/dL (60-115)
[2023-10-19] MEDS: traZODone HCL 25 MG HALFTAB PO (20:19)
[2023-10-19] MEDS: Sertraline HCL 25 MG TABLET 12.5 MG PO (20:19)
[2023-10-20] VITALS: BP 119/78; PULSE 88; RESP 18; TEMP 36.4; O2SAT 95
[2023-10-20] MEDS: vancomycin HCL 125 MG CAPSULE PO ×5 (00:20→23:40)
[2023-10-20 07:25] LABS: Glucose, Whole Blood 90 mg/dL (60-115)
[2023-10-20 07:49] VITALS: BP 109/74; PULSE 104; RESP 18; TEMP 36.4; O2SAT 96
[2023-10-20] MEDS: polyethylene glycoL 3350 17 GM POWD.PACK PO (08:43)
[2023-10-20] MEDS: Gabapentin 100 MG CAPSULE PO ×2 (08:43→20:10)
[2023-10-20] MEDS: ARIPiprazole 5 MG TABLET 2.5 MG PO (08:43)
[2023-10-20] MEDS: Sodium Bicarbonate 650 MG TABLET PO ×2 (08:44→20:10)
[2023-10-20] MEDS: Fludrocortisone Acetate 0.1 MG TABLET PO (08:44)
[2023-10-20] MEDS: Midodrine HCl 5 MG TABLET PO ×3 (08:44→20:10)
[2023-10-20] MEDS: Apixaban 5 MG TABLET PO ×2 (08:44→20:10)
--- NOTE | 2023-10-20 09:10 | P.PNNP_ITS ---
Subjective Subjective Date of Service: 10/20/23 Principal diagnosis: Elevated troponins Interval history: Seen and examined this morning; No overnight events ; No specific complaints this morning Physical Exam 2 Vital Signs: Vital Signs: Last Vital Signs Temp 97.6 F 10/20/23 07:49 Pulse 104 H 10/20/23 07:49 Resp 18 10/20/23 07:49 BP 109/74 10/20/23 07:49 Pulse Ox 96 10/20/23 07:49 O2 Del Method Room Air 10/20/23 07:49 O2 Flow Rate 2 09/17/23 12:00 BMI result Body Mass Index 49.2 Const: General: comfortable Orientation/consciousness: patient oriented x3 HEENT: Head: Yes normocephalic Eyes: EOM: EOMs intact bilaterally Neck: Neck: Yes supple Resp: Auscultation: diminished lung sounds Cardio: Rate: regular rate GI: Palpation (GI): Soft to palpation Neuro: General: patient oriented x3 Objective Data Labs 10/14/23 05:53 10/18/23 05:47 Labs: Laboratory Results - last 24 hr 10/19/23 10/19/23 10/19/23 11:15 16:13 19:30 POC Glucose 95 141 H 88 10/20/23 07:20 POC Glucose 90 Microbiology Microbiology Results: Microbiology 07/20/23 22:49 Blood - Venous Blood Culture - Final No growth after 5 days. 07/20/23 22:49 Blood - Venous Blood Culture - Final No growth after 5 days. 07/12/23 12:30 Blood - Venous Blood Culture - Final No growth after 5 days. 07/12/23 12:15 Blood - Venous Blood Culture - Final No growth after 5 days. 07/12/23 Unknown Urine Catheterized - Straight Catheter Urine Culture - Final No growth. 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
--- NOTE | 2023-10-20 10:37 | P.PNIM_ITS ---
Subjective Subjective Date of Service: 10/20/23 Interval History: Seen and examined this morning Follow-up for placement No overnight events No specific complaints this morning Review of Systems Review of Systems: Yes all other systems are reviewed and are negative Constitutional Constitutional: Denies chills and Denies fever(s) Cardiovascular Cardiovascular: Denies chest pain, Denies palpitations and Denies dyspnea Respiratory Respiratory: Denies cough and Denies dyspnea Endocrine Endocrine: Denies palpitations Physical Exam 2 Vital Signs: Vital Signs: Last Vital Signs Temp 97.6 F 10/20/23 07:49 Pulse 104 H 10/20/23 07:49 Resp 18 10/20/23 07:49 BP 109/74 10/20/23 07:49 Pulse Ox 96 10/20/23 07:49 O2 Del Method Room Air 10/20/23 07:49 O2 Flow Rate 2 09/17/23 12:00 BMI result Body Mass Index 49.2 Appearing in no acute distress lung sounds are clear to auscultation heart regular rate rhythm, clear S1, S2 positive bowel sounds, abdomen is soft, nontender neuro patient is alert x3, no focal deficits Objective Data Active Medications Acetaminophen (Acetaminophen 325 Mg Tablet) 650 mg PO Q6H PRN PRN Reason: Pain, Mild (Pain Scale 1-3) Last Admin: 10/19/23 20:21 Dose: 650 mg Documented By: KASI Apixaban (Apixaban 5 Mg Tablet) 5 mg PO BID [facility] Stop: 02/25/25 21:01 Last Admin: 10/20/23 08:44 Dose: 5 mg Documented By: TERRIE Aripiprazole (Aripiprazole 5 Mg Tablet) 2.5 mg PO DAILY [facility] Last Admin: 10/20/23 08:43 Dose: 2.5 mg Documented By: TERRIE Calcium Carbonate (Calcium Carbonate 750 Mg Tab.Chew) 750 mg PO Q6H PRN PRN Reason: Heartburn Last Admin: 10/06/23 20:43 Dose: 750 mg Documented By: KASI Fludrocortisone Acetate (Fludrocortisone Acetate 0.1 Mg Tablet) 0.1 mg PO DAILY [facility] Last Admin: 10/20/23 08:44 Dose: 0.1 mg Documented By: TERRIE Gabapentin (Gabapentin 100 Mg Capsule) 100 mg PO BID [facility] Last Admin: 10/20/23 08:43 Dose: 100 mg Documented By: TERRIE Glucose (Glucose Gel 15 Gm Gel..Gram.) 15 gm PO Q15M PRN; Protocol PRN Reason: per Hypoglycemia Standing Ord. Dextrose (D10) 250 mls @ 750 mls/hr IV Q15M PRN; Protocol PRN Reason: per Hypoglycemia Standing Ord. Midodrine (Midodrine Hcl 5 Mg Tablet) 5 mg PO TID [facility] Last Admin: 10/20/23 08:44 Dose: 5 mg Documented By: TERRIE Multi-Ingred Cream/Lotion/Oil/Oint (Mineral Oil/Petrolatum,White 106 Gm Tube) 1 appl TOPICAL BID [facility]; Protocol Last Admin: 10/20/23 08:44 Dose: Not Given Documented By: TERRIE Non-Admin Reason: Patient Refused Ondansetron HCl (Ondansetron Odt 4 Mg Tab.Rapdis) 4 mg TRANSLINGU Q6H PRN PRN Reason: Nausea and Vomiting Last Admin: 10/08/23 09:07 Dose: 4 mg Documented By: ANTON Polyethylene Glycol (Polyethylene Glycol 3350 17 Gm Powd.Pack) 17 gm PO DAILY [facility] Last Admin: 10/20/23 08:43 Dose: 17 gm Documented By: TERRIE Sertraline HCl (Sertraline Hcl 25 Mg Tablet) 12.5 mg PO BEDTIME [facility] Last Admin: 10/19/23 20:19 Dose: 12.5 mg Documented By: KASI Sodium Bicarbonate (Sodium Bicarbonate 650 Mg Tablet) 650 mg PO BID [facility] Last Admin: 10/20/23 08:44 Dose: 650 mg Documented By: TERRIE Trazodone HCl (Trazodone Hcl 25 Mg Halftab) 25 mg PO BEDTIME [facility] Last Admin: 10/19/23 20:19 Dose: 25 mg Documented By: KASI Vancomycin HCl (Vancomycin Hcl 125 Mg Capsule) 125 mg PO Q6H [facility] Stop: 10/21/23 12:59 Last Admin: 10/20/23 06:25 Dose: 125 mg Documented By: KASI Labs 10/14/23 05:53 10/18/23 05:47 Labs: Laboratory Results - last 24 hr 10/19/23 10/19/23 10/19/23 11:15 16:13 19:30 POC Glucose 95 141 H 88 10/20/23 07:20 POC Glucose 90 Assessment and Plan (1) Acute DVT (deep venous thrombosis): Status: Acute (2) C. difficile diarrhea: Status: Acute Plan 53 years old male with PMH of DM2, HTN, Asthma who presented to ED After sustaining a fall and laying on the floor for 9 hours found to have severe acute kidney injury from rhabdomyolysis and hyperkalemia acute on chronic DVT in right common femoral vein started on eliquis completed loading dose, continue 5 bid VQ scan nondiagnostic. No sob/chest pain to suggest PE Acute sinus tachycardia improving Acute diarrhea gi panel negative cdif colonization but given acute diarrhea, will plan to treat for 10 day course of oral vancomycin - end date 10/20 diarrhea improving CHITO and severe hyperkalemia and acute metabolic acidosis due to ATN from rhabdomyolysis started on HD permacath placed 07/16/23, underwent catheter change 09/28, functioning well on midodrine 5 mg t.i.d. and Florinef 0.1 mg daily now with renal recovery - permcath removed 10/13. renal function remains stable continue po sodium bicarb hypokalemia- resolved resolved Chronic Leg and back pain Stable, continue gabapentin 100mg BID dysphagia on NDD3 diet Depression. unspecified No behavioral issues, seen by psychiatry 08/23,on Abilify 2.5 mg daily low-dose since it can cause orthostasis, trazodone 25 mg at bedtime and Zoloft low-dose . patient tolerating current medications Acute?Rhabdomyolysis /Fall resolved with volume participating with physical therapy Diabetes type 2 stable blood sugars, last hemoglobin A1c 6.1 ,12/28/2022. follow POCs Morbid Obesity. BMI 49.2 Low-calorie diet/ weight management. Encourage ambulation. dvt ppx - eliquis Attending Dr. Johnson Full code reason for continued hospitalization: debilitated; safe discharge to short-term rehab. monitor UO, renal function Quality Stroke Does the patient have a stroke diagnosis?: No VTE Prior VTE?: No VTE Risk Level:: Medical - moderate - high VTE Device Contraindication: N/A - Device Ordered VTE Drug Contraindication: N/A - Med Ordered
[2023-10-20 11:43] LABS: Glucose, Whole Blood 110 mg/dL (60-115)
--- NOTE | 2023-10-20 14:08 | MHC.CM.PN ---
PT DENIED SNF COVERAGE AFTER PEER REVIEW ..REREFERRED PT HOPING TOMUSE HIS [facility] ESPNOW THAT PT NO LONGER NEEDS HD ALSO ASKED [facility] TO CONSIDER PT FOR FOSTER CARE PROGRAM ,[facility] NOTIFIED OF POSSIBLE DC
--- NOTE | 2023-10-20 14:12 | MHC.CM.PN ---
CALL ALSO PLACED TO FRANCISCA AT [facility] [phone] TO ASSIT W/DC PLANS
[2023-10-20 15:39] VITALS: BP 118/82; PULSE 108; RESP 18; TEMP 36.3; O2SAT 99
[2023-10-20 16:27] LABS: Glucose, Whole Blood 79 mg/dL (60-115)
[2023-10-20 20:09] LABS: Glucose, Whole Blood 104 mg/dL (60-115)
[2023-10-20] MEDS: traZODone HCL 25 MG HALFTAB PO (20:10)
[2023-10-20] MEDS: Sertraline HCL 25 MG TABLET 12.5 MG PO (20:10)
[2023-10-21] VITALS: BP 115/77; PULSE 106; RESP 15; TEMP 36.6; O2SAT 94
[2023-10-21] MEDS: vancomycin HCL 125 MG CAPSULE PO (06:24)
[2023-10-21 07:10] VITALS: BP 107/76; PULSE 106; RESP 16; TEMP 36.2; O2SAT 94
[2023-10-21 07:29] LABS: Glucose, Whole Blood 92 mg/dL (60-115)
--- NOTE | 2023-10-21 08:47 | P.PNIM_ITS ---
Subjective Subjective Date of Service: 10/21/23 Interval History: Seen and examined this morning Follow-up for placement No overnight events No specific complaints this morning Review of Systems Review of Systems: Yes all other systems are reviewed and are negative Constitutional Constitutional: Denies chills and Denies fever(s) Cardiovascular Cardiovascular: Denies chest pain, Denies palpitations and Denies dyspnea Respiratory Respiratory: Denies cough and Denies dyspnea Endocrine Endocrine: Denies palpitations Physical Exam 2 Vital Signs: Vital Signs: Last Vital Signs Temp 97.1 F 10/21/23 07:10 Pulse 106 H 10/21/23 07:10 Resp 16 10/21/23 07:10 BP 107/76 10/21/23 07:10 Pulse Ox 94 10/21/23 07:10 O2 Del Method Room Air 10/21/23 07:10 O2 Flow Rate 2 09/17/23 12:00 BMI result Body Mass Index 49.2 alert and oriented Objective Data Active Medications Acetaminophen (Acetaminophen 325 Mg Tablet) 650 mg PO Q6H PRN PRN Reason: Pain, Mild (Pain Scale 1-3) Last Admin: 10/19/23 20:21 Dose: 650 mg Documented By: KASI Apixaban (Apixaban 5 Mg Tablet) 5 mg PO BID [facility] Stop: 02/25/25 21:01 Last Admin: 10/20/23 20:10 Dose: 5 mg Documented By: CARLOTTA Aripiprazole (Aripiprazole 5 Mg Tablet) 2.5 mg PO DAILY [facility] Last Admin: 10/20/23 08:43 Dose: 2.5 mg Documented By: TERRIE Calcium Carbonate (Calcium Carbonate 750 Mg Tab.Chew) 750 mg PO Q6H PRN PRN Reason: Heartburn Last Admin: 10/06/23 20:43 Dose: 750 mg Documented By: KASI Fludrocortisone Acetate (Fludrocortisone Acetate 0.1 Mg Tablet) 0.1 mg PO DAILY [facility] Last Admin: 10/20/23 08:44 Dose: 0.1 mg Documented By: TERRIE Gabapentin (Gabapentin 100 Mg Capsule) 100 mg PO BID [facility] Last Admin: 10/20/23 20:10 Dose: 100 mg Documented By: CARLOTTA Glucose (Glucose Gel 15 Gm Gel..Gram.) 15 gm PO Q15M PRN; Protocol PRN Reason: per Hypoglycemia Standing Ord. Dextrose (D10) 250 mls @ 750 mls/hr IV Q15M PRN; Protocol PRN Reason: per Hypoglycemia Standing Ord. Midodrine (Midodrine Hcl 5 Mg Tablet) 5 mg PO TID [facility] Last Admin: 10/20/23 20:10 Dose: 5 mg Documented By: CARLOTTA Multi-Ingred Cream/Lotion/Oil/Oint (Mineral Oil/Petrolatum,White 106 Gm Tube) 1 appl TOPICAL BID [facility]; Protocol Last Admin: 10/20/23 20:13 Dose: Not Given Documented By: CARLOTTA Non-Admin Reason: pt declined Ondansetron HCl (Ondansetron Odt 4 Mg Tab.Rapdis) 4 mg TRANSLINGU Q6H PRN PRN Reason: Nausea and Vomiting Last Admin: 10/08/23 09:07 Dose: 4 mg Documented By: ANTON Polyethylene Glycol (Polyethylene Glycol 3350 17 Gm Powd.Pack) 17 gm PO DAILY [facility] Last Admin: 10/20/23 08:43 Dose: 17 gm Documented By: TERRIE Sertraline HCl (Sertraline Hcl 25 Mg Tablet) 12.5 mg PO BEDTIME [facility] Last Admin: 10/20/23 20:10 Dose: 12.5 mg Documented By: CARLOTTA Sodium Bicarbonate (Sodium Bicarbonate 650 Mg Tablet) 650 mg PO BID [facility] Last Admin: 10/20/23 20:10 Dose: 650 mg Documented By: CARLOTTA Trazodone HCl (Trazodone Hcl 25 Mg Halftab) 25 mg PO BEDTIME [facility] Last Admin: 10/20/23 20:10 Dose: 25 mg Documented By: CARLOTTA Vancomycin HCl (Vancomycin Hcl 125 Mg Capsule) 125 mg PO Q6H [facility] Stop: 10/21/23 12:59 Last Admin: 10/21/23 06:24 Dose: 125 mg Documented By: CARLOTTA Labs 10/14/23 05:53 10/18/23 05:47 Labs: Laboratory Results - last 24 hr 10/20/23 10/20/23 10/20/23 11:39 16:23 20:06 POC Glucose 110 79 104 10/21/23 07:16 POC Glucose 92 Assessment and Plan (1) Acute DVT (deep venous thrombosis): Status: Acute (2) C. difficile diarrhea: Status: Acute Plan 53 years old male with PMH of DM2, HTN, Asthma who presented to ED After sustaining a fall and laying on the floor for 9 hours found to have severe acute kidney injury from rhabdomyolysis and hyperkalemia Acute on chronic DVT in right common femoral vein started on eliquis completed loading dose, continue 5 bid VQ scan nondiagnostic. No sob/chest pain due to suggest PE Sinus tachycardia seems baseline Acute diarrhea. Resolving gi panel negative cdif colonization but given acute diarrhea, will plan to treat for 10 day course of oral vancomycin - end date 10/20 CHITO and severe hyperkalemia and acute metabolic acidosis due to ATN from rhabdomyolysis started on HD permacath placed 07/16/23, underwent catheter change 09/28 on midodrine 5 mg t.i.d. and Florinef 0.1 mg daily now with renal recovery - permcath removed 10/13. renal function remains stable continue po sodium bicarb hypokalemia- resolved resolved Chronic Leg and back pain Stable, continue gabapentin 100mg BID dysphagia on NDD3 diet Depression. unspecified No behavioral issues, seen by psychiatry 08/23,on Abilify 2.5 mg daily low-dose since it can cause orthostasis, trazodone 25 mg at bedtime and Zoloft low-dose . patient tolerating current medications Acute?Rhabdomyolysis /Fall resolved with volume participating with physical therapy Diabetes type 2 stable blood sugars, last hemoglobin A1c 6.1 follow POCs Morbid Obesity. BMI 49.2 Discussed importance of weight management as this may be contributing to worsening of other comorbidities dvt ppx - eliquis Attending Dr. Johnson Full code reason for continued hospitalization: debilitated; safe discharge to short-term rehab. monitor UO, renal function Quality Stroke Does the patient have a stroke diagnosis?: No VTE Prior VTE?: No VTE Risk Level:: Medical - moderate - high VTE Device Contraindication: N/A - Device Ordered VTE Drug Contraindication: N/A - Med Ordered
[2023-10-21] MEDS: ARIPiprazole 5 MG TABLET 2.5 MG PO (08:48)
[2023-10-21] MEDS: Midodrine HCl 5 MG TABLET PO ×3 (08:48→20:31)
[2023-10-21] MEDS: Fludrocortisone Acetate 0.1 MG TABLET PO (08:48)
[2023-10-21] MEDS: Apixaban 5 MG TABLET PO ×2 (08:48→20:30)
[2023-10-21] MEDS: Gabapentin 100 MG CAPSULE PO ×2 (08:49→20:30)
[2023-10-21] MEDS: Sodium Bicarbonate 650 MG TABLET PO ×2 (08:49→20:30)
[2023-10-21 11:40] LABS: Glucose, Whole Blood 100 mg/dL (60-115)
--- NOTE | 2023-10-21 11:56 | MHC.CM.PN ---
CM MET WITH PT TO DISCUSS DC PLANNING HE SAYS HE DID NOT REALIZE HIS [employer] INSURANCE WAS REFUSING TO COVER STR PT STATES HE DOES NOT WANT TO GO TO A SNF UNDER SHELTER CARE HE SAYS HE HAS WAITED 17 YEARS FOR HOUSING AND DOES NOT WANT TO LOSE HIS APARTMENT PT STATES HE IS GETTING BETTER EVERYDAY AND FEELS HE COULD GO HOME IF HE HAD HELP NEW TASK SENT TO [facility] TO ASSESS FOR HOME SERVICES [facility] WILL ALSO BE ARRANGED FOR PT/OT AND PILOT STEAM YACHT UNTIL EC SERVICES START PT WILL ALSO NEED TO BE ASSESSED FOR APPROPRIATE DME, HE DOES FEEL HE COULD USE A W/[facility] [employer] [facility]
[2023-10-21 14:54] VITALS: BP 82/55; PULSE 138
[2023-10-21 15:35] VITALS: BP 105/64; PULSE 117; RESP 16; TEMP 36.1; O2SAT 97
--- NOTE | 2023-10-21 16:02 | P.PNNP_ITS ---
Subjective Subjective Date of Service: 10/21/23 Principal diagnosis: Elevated troponins Interval history: Seen and examined this morning Follow-up for placement No overnight events No specific complaints this morning Physical Exam 2 Vital Signs: Vital Signs: Last Vital Signs Temp 97.0 F 10/21/23 15:35 Pulse 117 H 10/21/23 15:35 Resp 16 10/21/23 15:35 BP 105/64 10/21/23 15:35 Pulse Ox 97 10/21/23 15:35 O2 Del Method Room Air 10/21/23 15:35 O2 Flow Rate 2 09/17/23 12:00 BMI result Body Mass Index 49.2 Const: Other: General awake alert in no distress anicteric sclera Neck no JVD. CVS regular rate rhythm, Respiratory lungs clear to auscultation, no respiratory distress, no wheeze, no rhonchi. Gastrointestinal abdomen soft, non tender, bowel sounds audible. Extremities no edema. Right shoulder limited range of motion. Neuro non focal, speech clear. Skin no rash Psych appropriate affect Objective Data Labs 10/14/23 05:53 10/18/23 05:47 Labs: Laboratory Results - last 24 hr 10/20/23 10/20/23 10/21/23 16:23 20:06 07:16 POC Glucose 79 104 92 10/21/23 11:35 POC Glucose 100 Microbiology Microbiology Results: Microbiology 07/20/23 22:49 Blood - Venous Blood Culture - Final No growth after 5 days. 07/20/23 22:49 Blood - Venous Blood Culture - Final No growth after 5 days. 07/12/23 12:30 Blood - Venous Blood Culture - Final No growth after 5 days. 07/12/23 12:15 Blood - Venous Blood Culture - Final No growth after 5 days. 07/12/23 Unknown Urine Catheterized - Straight Catheter Urine Culture - Final No growth. 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 Progress Note: Quality Stroke Does the patient have a stroke diagnosis?: No
[2023-10-21 16:12] LABS: Glucose, Whole Blood 140 mg/dL (60-115)
[2023-10-21 20:00] LABS: Glucose, Whole Blood 122 mg/dL (60-115)
[2023-10-21] MEDS: Sertraline HCL 25 MG TABLET 12.5 MG PO (20:30)
[2023-10-21] MEDS: traZODone HCL 25 MG HALFTAB PO (20:31)
[2023-10-21 20:36] VITALS: PULSE 96
[2023-10-21 23:17] VITALS: BP 124/73; PULSE 97; RESP 18; TEMP 36.4; O2SAT 96
[2023-10-22 07:07] VITALS: BP 113/62; PULSE 105; RESP 18; TEMP 36.2; O2SAT 95
[2023-10-22 07:22] LABS: Glucose, Whole Blood 105 mg/dL (60-115)
[2023-10-22] MEDS: Fludrocortisone Acetate 0.1 MG TABLET PO (08:56)
[2023-10-22] MEDS: Gabapentin 100 MG CAPSULE PO ×2 (08:56→20:21)
[2023-10-22] MEDS: ARIPiprazole 5 MG TABLET 2.5 MG PO (08:57)
[2023-10-22] MEDS: Midodrine HCl 5 MG TABLET PO ×3 (08:57→20:21)
[2023-10-22] MEDS: Sodium Bicarbonate 650 MG TABLET PO ×2 (08:57→20:20)
[2023-10-22] MEDS: Apixaban 5 MG TABLET PO ×2 (08:57→20:20)
[2023-10-22] MEDS: Acetaminophen 325 MG TABLET 650 MG PO ×2 (09:03→20:21)
--- NOTE | 2023-10-22 10:57 | P.PNNP_ITS ---
Subjective Subjective Date of Service: 10/22/23 Principal diagnosis: Elevated troponins Interval history: Events noted; All recent data reviewed; Serum creatinine continues to improve Physical Exam 2 Vital Signs: Vital Signs: Last Vital Signs Temp 97.2 F 10/22/23 07:07 Pulse 105 H 10/22/23 07:07 Resp 18 10/22/23 07:07 BP 113/62 10/22/23 07:07 Pulse Ox 95 10/22/23 07:07 O2 Del Method Room Air 10/22/23 07:07 O2 Flow Rate 2 09/17/23 12:00 BMI result Body Mass Index 49.2 Const: General: no acute distress HEENT: Head: Yes normocephalic Eyes: EOM: EOMs intact bilaterally Neck: Neck: Yes supple Resp: Auscultation: diminished lung sounds Cardio: Rate: regular rate GI: Palpation (GI): Soft to palpation Neuro: General: moves all extremities Objective Data Labs 10/14/23 05:53 10/18/23 05:47 Labs: Laboratory Results - last 24 hr 10/21/23 10/21/23 10/21/23 11:35 16:09 19:47 POC Glucose 100 140 H 122 H 10/22/23 07:10 POC Glucose 105 Microbiology Microbiology Results: Microbiology 07/20/23 22:49 Blood - Venous Blood Culture - Final No growth after 5 days. 07/20/23 22:49 Blood - Venous Blood Culture - Final No growth after 5 days. 07/12/23 12:30 Blood - Venous Blood Culture - Final No growth after 5 days. 07/12/23 12:15 Blood - Venous Blood Culture - Final No growth after 5 days. 07/12/23 Unknown Urine Catheterized - Straight Catheter Urine Culture - Final No growth. 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
[2023-10-22 11:42] LABS: Glucose, Whole Blood 131 mg/dL (60-115)
--- NOTE | 2023-10-22 13:36 | HO.PM.IMPN ---
Subjective Subjective Date of Service: 10/22/23 Interval History: seen and examined this morning follow up for dizziness, weakness No overnight events Review of Systems Review of Systems: Yes all other systems are reviewed and are negative Constitutional Constitutional: Denies chills and Denies fever(s) Cardiovascular Cardiovascular: Denies chest pain, Denies palpitations and Denies dyspnea Respiratory Respiratory: Denies cough and Denies dyspnea Endocrine Endocrine: Denies palpitations Physical Exam Vital Signs: Vital Signs: Last Vital Signs Temp 97.2 F 10/22/23 07:07 Pulse 105 H 10/22/23 07:07 Resp 18 10/22/23 07:07 BP 113/62 10/22/23 07:07 Pulse Ox 95 10/22/23 07:07 O2 Del Method Room Air 10/22/23 07:07 O2 Flow Rate 2 09/17/23 12:00 BMI result Body Mass Index 49.2 Const: General: cooperative, comfortable, no acute distress, alert and awake Nutritional Appearance: obese Orientation/consciousness: patient oriented x3 Resp: Effort & Inspection: normal respiratory effort, able to speak in complete sentences, no respiratory distress and no use of accessory muscles Cardio: Rate: regular rate GI: Inspection: No distended Palpation (GI): Soft to palpation and nontender Neuro: General: patient oriented x3, moves all extremities and CN's II-XI intact bilaterally Extrem: Other: dry skin b/l feet, no erythema no leg swelling Objective Data Active Medications Acetaminophen (Acetaminophen 325 Mg Tablet) 650 mg PO Q6H PRN PRN Reason: Pain, Mild (Pain Scale 1-3) Last Admin: 10/22/23 09:03 Dose: 650 mg Documented By: OPHELIA Apixaban (Apixaban 5 Mg Tablet) 5 mg PO BID [facility] Stop: 02/25/25 21:01 Last Admin: 10/22/23 08:57 Dose: 5 mg Documented By: OPHELIA Aripiprazole (Aripiprazole 5 Mg Tablet) 2.5 mg PO DAILY [facility] Last Admin: 10/22/23 08:57 Dose: 2.5 mg Documented By: OPHELIA Calcium Carbonate (Calcium Carbonate 750 Mg Tab.Chew) 750 mg PO Q6H PRN PRN Reason: Heartburn Last Admin: 10/06/23 20:43 Dose: 750 mg Documented By: KASI Fludrocortisone Acetate (Fludrocortisone Acetate 0.1 Mg Tablet) 0.1 mg PO DAILY [facility] Last Admin: 10/22/23 08:56 Dose: 0.1 mg Documented By: OPHELIA Gabapentin (Gabapentin 100 Mg Capsule) 100 mg PO BID [facility] Last Admin: 10/22/23 08:56 Dose: 100 mg Documented By: OPHELIA Glucose (Glucose Gel 15 Gm Gel..Gram.) 15 gm PO Q15M PRN; Protocol PRN Reason: per Hypoglycemia Standing Ord. Dextrose (D10) 250 mls @ 750 mls/hr IV Q15M PRN; Protocol PRN Reason: per Hypoglycemia Standing Ord. Midodrine (Midodrine Hcl 5 Mg Tablet) 5 mg PO TID [facility] Last Admin: 10/22/23 08:57 Dose: 5 mg Documented By: OPHELIA Multi-Ingred Cream/Lotion/Oil/Oint (Mineral Oil/Petrolatum,White 106 Gm Tube) 1 appl TOPICAL BID [facility]; Protocol Last Admin: 10/22/23 08:57 Dose: Not Given Documented By: OPHELIA Non-Admin Reason: Patient Refused Ondansetron HCl (Ondansetron Odt 4 Mg Tab.Rapdis) 4 mg TRANSLINGU Q6H PRN PRN Reason: Nausea and Vomiting Last Admin: 10/08/23 09:07 Dose: 4 mg Documented By: ANTON Polyethylene Glycol (Polyethylene Glycol 3350 17 Gm Powd.Pack) 17 gm PO DAILY [facility] Last Admin: 10/22/23 08:57 Dose: Not Given Documented By: OPHELIA Non-Admin Reason: Patient Refused Sertraline HCl (Sertraline Hcl 25 Mg Tablet) 12.5 mg PO BEDTIME [facility] Last Admin: 10/21/23 20:30 Dose: 12.5 mg Documented By: CARLOTTA Sodium Bicarbonate (Sodium Bicarbonate 650 Mg Tablet) 650 mg PO BID [facility] Last Admin: 10/22/23 08:57 Dose: 650 mg Documented By: OPHELIA Trazodone HCl (Trazodone Hcl 25 Mg Halftab) 25 mg PO BEDTIME [facility] Last Admin: 10/21/23 20:31 Dose: 25 mg Documented By: CARLOTTA Labs 10/14/23 05:53 10/18/23 05:47 Labs: Laboratory Results - last 24 hr 10/21/23 10/21/23 10/22/23 16:09 19:47 07:10 POC Glucose 140 H 122 H 105 10/22/23 11:35 POC Glucose 131 H Assessment and Plan (1) Acute DVT (deep venous thrombosis): Status: Acute Plan 53 years old male with PMH of DM2, HTN, Asthma who presented to ED After sustaining a fall and laying on the floor for 9 hours found to have severe acute kidney injury from rhabdomyolysis and hyperkalemia Acute on chronic DVT in right common femoral vein started on eliquis completed loading dose, continue 5 bid VQ scan nondiagnostic. No sob/chest pain due to suggest PE Sinus tachycardia back to baseline Acute diarrhea. Resolving gi panel negative cdif colonization but given acute diarrhea, completed 10 day course of oral vancomycin CHITO and severe hyperkalemia and acute metabolic acidosis due to ATN from rhabdomyolysis started on HD permacath placed 07/16/23, underwent catheter change 09/28 on midodrine 5 mg t.i.d. and Florinef 0.1 mg daily now with renal recovery - permcath removed 10/13. renal function remains stable continue po sodium bicarb hypokalemia- resolved Chronic Leg and back pain Stable, continue gabapentin 100mg BID dysphagia on NDD3 diet Depression. unspecified No behavioral issues, seen by psychiatry 08/23,on Abilify 2.5 mg daily low-dose since it can cause orthostasis, trazodone 25 mg at bedtime and Zoloft low-dose . patient tolerating current medications Acute?Rhabdomyolysis /Fall resolved with volume participating with physical therapy Diabetes type 2 stable blood sugars, last hemoglobin A1c 6.1 follow POCs Morbid Obesity. BMI 49.2 Discussed importance of weight management as this may be contributing to worsening of other comorbidities dvt ppx - eliquis Full code reason for continued hospitalization: debilitated; safe discharge to short-term rehab. monitor UO, renal function Quality Stroke Does the patient have a stroke diagnosis?: No VTE Prior VTE?: No VTE Risk Level:: Medical - moderate - high VTE Device Contraindication: N/A - Device Ordered VTE Drug Contraindication: N/A - Med Ordered
[2023-10-22 15:18] VITALS: BP 114/70; PULSE 102; RESP 18; TEMP 36.4; O2SAT 97
--- NOTE | 2023-10-22 15:22 | MHC.CM.PN ---
PT NOW REPORTS HE DOES NOT WANT TO GO TO STR HE REPORTS HE IS DOING MUCH BETTER AND IF HE CAN GET SOME HELP AT HOME HE FEELS HE IS READY PT REPORTS HE WILL NEED A W/C, HE THINKS HE HAS A WALKER AT HOME HE MET WITH [facility], THEY ARE UNABLE TO PROVIDE FREE SERVICES AT THIS TIME PT HAS TOO MUCH MONEY IN THE BANK HE IS WILLING TO PAY PRIVATELY FOR SERVICES UNTIL HE HAS SPENT ENOUGH TO QUALIFY FOR COVERED SERVICES HE WILL NEED A VNA FOR PT/SN/OT [facility] WILL PROVIDE A LIST OF FISH SMOKER'S FOR PT TO CONTACT ABOUT PP CARE IT WILL LIKELY TAKE AT LEAST SEVERAL DAYS TO ARRANGE HOME CARE
[2023-10-22 16:11] VITALS: BP 114/70; PULSE 102; O2SAT 97
[2023-10-22 16:20] LABS: Glucose, Whole Blood 107 mg/dL (60-115)
[2023-10-22 19:37] LABS: Glucose, Whole Blood 114 mg/dL (60-115)
[2023-10-22] MEDS: traZODone HCL 25 MG HALFTAB PO (20:20)
[2023-10-22] MEDS: Sertraline HCL 25 MG TABLET 12.5 MG PO (20:21)
[2023-10-22 23:37] VITALS: BP 115/68; PULSE 100; RESP 20; TEMP 36.2; O2SAT 97
[2023-10-23 06:11] LABS: Anion Gap 13 (12-20); Blood Urea Nitrogen 18 mg/dL (9-16); Calcium 9.3 mg/dL (8.4-10.2); Carbon Dioxide 28 mmol/L (22-29); Chloride 103 mmol/L (96-108); Creatinine Clr Calc Pharmacy 47.2; Estimated Glomerular Filt Rate 26; Glucose Random 95 mg/dL (60-115); Potassium 3.5 mmol/L (3.3-5.1); Sodium 140 mmol/L (135-145)
[2023-10-23 07:25] VITALS: BP 107/69; PULSE 100; RESP 16; TEMP 36.8; O2SAT 94
[2023-10-23 07:44] LABS: Glucose, Whole Blood 97 mg/dL (60-115)
[2023-10-23] MEDS: Midodrine HCl 5 MG TABLET PO ×3 (08:45→20:22)
[2023-10-23] MEDS: Fludrocortisone Acetate 0.1 MG TABLET PO (08:45)
[2023-10-23] MEDS: Gabapentin 100 MG CAPSULE PO ×2 (08:45→20:22)
[2023-10-23] MEDS: Apixaban 5 MG TABLET PO ×2 (08:45→20:22)
[2023-10-23] MEDS: ARIPiprazole 5 MG TABLET 2.5 MG PO (08:46)
[2023-10-23] MEDS: Sodium Bicarbonate 650 MG TABLET PO ×2 (08:46→20:23)
--- NOTE | 2023-10-23 09:47 | P.PNIM_ITS ---
Subjective Subjective Date of Service: 10/23/23 Interval History: seen and examined this morning follow up for dizziness, weakness No overnight events Review of Systems Review of Systems: Yes all other systems are reviewed and are negative Constitutional Constitutional: Denies chills and Denies fever(s) Cardiovascular Cardiovascular: Denies chest pain, Denies palpitations and Denies dyspnea Respiratory Respiratory: Denies cough and Denies dyspnea Endocrine Endocrine: Denies palpitations Physical Exam 2 Vital Signs: Vital Signs: Last Vital Signs Temp 98.2 F 10/23/23 07:25 Pulse 100 10/23/23 07:25 Resp 16 10/23/23 07:25 BP 107/69 10/23/23 07:25 Pulse Ox 94 10/23/23 07:25 O2 Del Method Room Air 10/23/23 07:25 O2 Flow Rate 2 09/17/23 12:00 BMI result Body Mass Index 49.2 Appearing in no acute distress lung sounds are clear to auscultation heart regular rate rhythm, clear S1, S2 positive bowel sounds, abdomen is soft, nontender neuro patient is alert x3, no focal deficits Objective Data Active Medications Acetaminophen (Acetaminophen 325 Mg Tablet) 650 mg PO Q6H PRN PRN Reason: Pain, Mild (Pain Scale 1-3) Last Admin: 10/22/23 20:21 Dose: 650 mg Documented By: POOJA Apixaban (Apixaban 5 Mg Tablet) 5 mg PO BID [facility] Stop: 02/25/25 21:01 Last Admin: 10/23/23 08:45 Dose: 5 mg Documented By: MIKE Aripiprazole (Aripiprazole 5 Mg Tablet) 2.5 mg PO DAILY [facility] Last Admin: 10/23/23 08:46 Dose: 2.5 mg Documented By: MIKE Calcium Carbonate (Calcium Carbonate 750 Mg Tab.Chew) 750 mg PO Q6H PRN PRN Reason: Heartburn Last Admin: 10/06/23 20:43 Dose: 750 mg Documented By: KASI Fludrocortisone Acetate (Fludrocortisone Acetate 0.1 Mg Tablet) 0.1 mg PO DAILY [facility] Last Admin: 10/23/23 08:45 Dose: 0.1 mg Documented By: MIKE Gabapentin (Gabapentin 100 Mg Capsule) 100 mg PO BID [facility] Last Admin: 10/23/23 08:45 Dose: 100 mg Documented By: MIKE Glucose (Glucose Gel 15 Gm Gel..Gram.) 15 gm PO Q15M PRN; Protocol PRN Reason: per Hypoglycemia Standing Ord. Dextrose (D10) 250 mls @ 750 mls/hr IV Q15M PRN; Protocol PRN Reason: per Hypoglycemia Standing Ord. Midodrine (Midodrine Hcl 5 Mg Tablet) 5 mg PO TID [facility] Last Admin: 10/23/23 08:45 Dose: 5 mg Documented By: MIKE Multi-Ingred Cream/Lotion/Oil/Oint (Mineral Oil/Petrolatum,White 106 Gm Tube) 1 appl TOPICAL BID [facility]; Protocol Last Admin: 10/23/23 08:49 Dose: Not Given Documented By: MIKE Non-Admin Reason: Patient Refused Ondansetron HCl (Ondansetron Odt 4 Mg Tab.Rapdis) 4 mg TRANSLINGU Q6H PRN PRN Reason: Nausea and Vomiting Last Admin: 10/08/23 09:07 Dose: 4 mg Documented By: ANTON Polyethylene Glycol (Polyethylene Glycol 3350 17 Gm Powd.Pack) 17 gm PO DAILY [facility] Last Admin: 10/23/23 08:49 Dose: Not Given Documented By: MIKE Non-Admin Reason: Patient Refused Sertraline HCl (Sertraline Hcl 25 Mg Tablet) 12.5 mg PO BEDTIME [facility] Last Admin: 10/22/23 20:21 Dose: 12.5 mg Documented By: POOJA Sodium Bicarbonate (Sodium Bicarbonate 650 Mg Tablet) 650 mg PO BID [facility] Last Admin: 10/23/23 08:46 Dose: 650 mg Documented By: MIKE Trazodone HCl (Trazodone Hcl 25 Mg Halftab) 25 mg PO BEDTIME [facility] Last Admin: 10/22/23 20:20 Dose: 25 mg Documented By: POOJA Labs 10/14/23 05:53 10/23/23 05:07 Labs: Laboratory Results - last 24 hr 10/22/23 10/22/23 10/22/23 11:35 16:07 19:31 Anion Gap Estim Creat Clear Calc Estimated GFR POC Glucose 131 H 107 114 Random Glucose Calcium 10/23/23 10/23/23 05:07 07:28 Anion Gap 13 Estim Creat Clear Calc 47.2 Estimated GFR 26 POC Glucose 97 Random Glucose 95 Calcium 9.3 Assessment and Plan (1) Acute DVT (deep venous thrombosis): Status: Acute Plan 53 years old male with PMH of DM2, HTN, Asthma who presented to ED After sustaining a fall and laying on the floor for 9 hours found to have severe acute kidney injury from rhabdomyolysis and hyperkalemia Acute on chronic DVT in right common femoral vein started on eliquis completed loading dose, continue 5 bid VQ scan nondiagnostic. No sob/chest pain due to suggest PE Sinus tachycardia back to baseline Acute diarrhea. Resolving gi panel negative cdif colonization but given acute diarrhea, completed 10 day course of oral vancomycin CHITO and severe hyperkalemia and acute metabolic acidosis due to ATN from rhabdomyolysis started on HD permacath placed 07/16/23, underwent catheter change 09/28 on midodrine 5 mg t.i.d. and Florinef 0.1 mg daily now with renal recovery - permcath removed 10/13. renal function remains stable continue po sodium bicarb hypokalemia- resolved Chronic Leg and back pain Stable, continue gabapentin 100mg BID dysphagia on NDD3 diet Depression. unspecified No behavioral issues, seen by psychiatry 08/23,on Abilify 2.5 mg daily low-dose since it can cause orthostasis, trazodone 25 mg at bedtime and Zoloft low-dose . patient tolerating current medications Acute?Rhabdomyolysis /Fall resolved with volume participating with physical therapy Diabetes type 2 stable blood sugars, last hemoglobin A1c 6.1 follow POCs Morbid Obesity. BMI 49.2 Discussed importance of weight management as this may be contributing to worsening of other comorbidities dvt ppx - eliquis Attending Dr. Alcantar Full code reason for continued hospitalization: debilitated; safe discharge to short-term rehab. monitor UO, renal function Quality Stroke Does the patient have a stroke diagnosis?: No VTE Prior VTE?: No VTE Risk Level:: Medical - moderate - high VTE Device Contraindication: N/A - Device Ordered VTE Drug Contraindication: N/A - Med Ordered
[2023-10-23 11:43] LABS: Glucose, Whole Blood 104 mg/dL (60-115)
[2023-10-23 15:36] VITALS: BP 103/73; PULSE 87; RESP 16; TEMP 36.8; O2SAT 96
[2023-10-23 16:11] LABS: Glucose, Whole Blood 84 mg/dL (60-115)
[2023-10-23] MEDS: traZODone HCL 25 MG HALFTAB PO (20:23)
[2023-10-23] MEDS: Acetaminophen 325 MG TABLET 650 MG PO (20:23)
[2023-10-23] MEDS: Sertraline HCL 25 MG TABLET 12.5 MG PO (20:23)
[2023-10-23 21:02] LABS: Glucose, Whole Blood 84 mg/dL (60-115)
[2023-10-23 23:39] VITALS: BP 96/67; PULSE 97; RESP 20; TEMP 36.4; O2SAT 99
--- NOTE | 2023-10-24 07:12 | P.PNIM_ITS ---
Subjective Subjective Date of Service: 10/24/23 Interval History: seen and examined this morning doing better, no complaints No overnight events Review of Systems Review of Systems: Yes all other systems are reviewed and are negative Constitutional Constitutional: Denies chills and Denies fever(s) Cardiovascular Cardiovascular: Denies chest pain, Denies palpitations and Denies dyspnea Respiratory Respiratory: Denies cough and Denies dyspnea Endocrine Endocrine: Denies palpitations Physical Exam 2 Vital Signs: Vital Signs: Last Vital Signs Temp 97.5 F 10/23/23 23:39 Pulse 97 10/23/23 23:39 Resp 20 10/23/23 23:39 BP 96/67 10/23/23 23:39 Pulse Ox 99 10/23/23 23:39 O2 Del Method Room Air 10/23/23 23:39 O2 Flow Rate 2 09/17/23 12:00 BMI result Body Mass Index 49.2 Appearing in no acute distress lung sounds are clear to auscultation heart regular rate rhythm, clear S1, S2 positive bowel sounds, abdomen is soft, nontender neuro patient is alert x3, no focal deficits Objective Data Active Medications Acetaminophen (Acetaminophen 325 Mg Tablet) 650 mg PO Q6H PRN PRN Reason: Pain, Mild (Pain Scale 1-3) Last Admin: 10/23/23 20:23 Dose: 650 mg Documented By: MIKAL Comments: per pt request Apixaban (Apixaban 5 Mg Tablet) 5 mg PO BID [facility] Stop: 02/25/25 21:01 Last Admin: 10/23/23 20:22 Dose: 5 mg Documented By: MIKAL Aripiprazole (Aripiprazole 5 Mg Tablet) 2.5 mg PO DAILY [facility] Last Admin: 10/23/23 08:46 Dose: 2.5 mg Documented By: MIKE Calcium Carbonate (Calcium Carbonate 750 Mg Tab.Chew) 750 mg PO Q6H PRN PRN Reason: Heartburn Last Admin: 10/06/23 20:43 Dose: 750 mg Documented By: KASI Fludrocortisone Acetate (Fludrocortisone Acetate 0.1 Mg Tablet) 0.1 mg PO DAILY [facility] Last Admin: 10/23/23 08:45 Dose: 0.1 mg Documented By: MIKE Gabapentin (Gabapentin 100 Mg Capsule) 100 mg PO BID [facility] Last Admin: 10/23/23 20:22 Dose: 100 mg Documented By: MIKAL Glucose (Glucose Gel 15 Gm Gel..Gram.) 15 gm PO Q15M PRN; Protocol PRN Reason: per Hypoglycemia Standing Ord. Dextrose (D10) 250 mls @ 750 mls/hr IV Q15M PRN; Protocol PRN Reason: per Hypoglycemia Standing Ord. Midodrine (Midodrine Hcl 5 Mg Tablet) 5 mg PO TID [facility] Last Admin: 10/23/23 20:22 Dose: 5 mg Documented By: MIKAL Multi-Ingred Cream/Lotion/Oil/Oint (Mineral Oil/Petrolatum,White 106 Gm Tube) 1 appl TOPICAL BID [facility]; Protocol Last Admin: 10/23/23 20:24 Dose: Not Given Documented By: MIKAL Non-Admin Reason: Patient Refused Ondansetron HCl (Ondansetron Odt 4 Mg Tab.Rapdis) 4 mg TRANSLINGU Q6H PRN PRN Reason: Nausea and Vomiting Last Admin: 10/08/23 09:07 Dose: 4 mg Documented By: ANTON Polyethylene Glycol (Polyethylene Glycol 3350 17 Gm Powd.Pack) 17 gm PO DAILY [facility] Last Admin: 10/23/23 08:49 Dose: Not Given Documented By: MIKE Non-Admin Reason: Patient Refused Sertraline HCl (Sertraline Hcl 25 Mg Tablet) 12.5 mg PO BEDTIME [facility] Last Admin: 10/23/23 20:23 Dose: 12.5 mg Documented By: MIKAL Sodium Bicarbonate (Sodium Bicarbonate 650 Mg Tablet) 650 mg PO BID [facility] Last Admin: 10/23/23 20:23 Dose: 650 mg Documented By: MIKAL Trazodone HCl (Trazodone Hcl 25 Mg Halftab) 25 mg PO BEDTIME [facility] Last Admin: 10/23/23 20:23 Dose: 25 mg Documented By: MIKAL Labs 10/14/23 05:53 10/23/23 05:07 Labs: Laboratory Results - last 24 hr 10/23/23 10/23/23 10/23/23 07:28 11:34 16:01 POC Glucose 97 104 84 10/23/23 20:55 POC Glucose 84 Assessment and Plan (1) Acute DVT (deep venous thrombosis): Status: Acute Plan 53 years old male with PMH of DM2, HTN, Asthma who presented to ED After sustaining a fall and laying on the floor for 9 hours found to have severe acute kidney injury from rhabdomyolysis and hyperkalemia Acute on chronic DVT in right common femoral vein started on eliquis completed loading dose, continue 5 bid VQ scan nondiagnostic. No sob/chest pain due to suggest PE Sinus tachycardia back to baseline Acute diarrhea. Resolving gi panel negative cdif colonization but given acute diarrhea, completed 10 day course of oral vancomycin CHITO and severe hyperkalemia and acute metabolic acidosis due to ATN from rhabdomyolysis started on HD permacath placed 07/16/23, underwent catheter change 09/28 on midodrine 5 mg t.i.d. and Florinef 0.1 mg daily now with renal recovery - permcath removed 10/13. renal function remains stable continue po sodium bicarb hypokalemia- resolved Chronic Leg and back pain Stable, continue gabapentin 100mg BID dysphagia on NDD3 diet Depression. unspecified No behavioral issues, seen by psychiatry 08/23,on Abilify 2.5 mg daily low-dose since it can cause orthostasis, trazodone 25 mg at bedtime and Zoloft low-dose . patient tolerating current medications Acute?Rhabdomyolysis /Fall resolved with volume participating with physical therapy Diabetes type 2 stable blood sugars, last hemoglobin A1c 6.1 follow POCs Morbid Obesity. BMI 49.2 Discussed importance of weight management as this may be contributing to worsening of other comorbidities dvt ppx - eliquis Attending Dr. Alcantar Full code reason for continued hospitalization: debilitated; safe discharge to short-term rehab. monitor UO, renal function Quality Stroke Does the patient have a stroke diagnosis?: No VTE Prior VTE?: No VTE Risk Level:: Medical - moderate - high VTE Device Contraindication: N/A - Device Ordered VTE Drug Contraindication: N/A - Med Ordered
[2023-10-24 07:22] LABS: Glucose, Whole Blood 94 mg/dL (60-115)
[2023-10-24 07:38] VITALS: BP 103/62; PULSE 101; RESP 16; TEMP 36.8; O2SAT 97
[2023-10-24] MEDS: Acetaminophen 325 MG TABLET 650 MG PO ×2 (08:55→15:37)
[2023-10-24] MEDS: Apixaban 5 MG TABLET PO ×2 (08:56→20:04)
[2023-10-24] MEDS: Gabapentin 100 MG CAPSULE PO ×2 (08:56→20:03)
[2023-10-24] MEDS: Midodrine HCl 5 MG TABLET PO ×3 (08:56→20:03)
[2023-10-24] MEDS: ARIPiprazole 5 MG TABLET 2.5 MG PO (08:56)
[2023-10-24] MEDS: Fludrocortisone Acetate 0.1 MG TABLET PO (08:56)
[2023-10-24] MEDS: Sodium Bicarbonate 650 MG TABLET PO ×2 (08:56→20:03)
[2023-10-24 11:32] LABS: Glucose, Whole Blood 136 mg/dL (60-115)
[2023-10-24 15:10] VITALS: BP 107/68; PULSE 99; RESP 20; TEMP 36.2; O2SAT 97
[2023-10-24 16:07] LABS: Glucose, Whole Blood 99 mg/dL (60-115)
[2023-10-24] MEDS: traZODone HCL 25 MG HALFTAB PO (20:04)
[2023-10-24] MEDS: Sertraline HCL 25 MG TABLET 12.5 MG PO (20:04)
[2023-10-24 20:32] LABS: Glucose, Whole Blood 102 mg/dL (60-115)
[2023-10-24 23:44] VITALS: BP 105/56; PULSE 96; RESP 18; TEMP 36.5; O2SAT 95
[2023-10-25 07:14] LABS: Glucose, Whole Blood 97 mg/dL (60-115)
--- NOTE | 2023-10-25 07:16 | P.PNIM_ITS ---
Subjective Subjective Date of Service: 10/25/23 Interval History: seen and examined this morning doing better, no complaints No overnight events Review of Systems Review of Systems: Yes all other systems are reviewed and are negative Constitutional Constitutional: Denies chills and Denies fever(s) Cardiovascular Cardiovascular: Denies chest pain, Denies palpitations and Denies dyspnea Respiratory Respiratory: Denies cough and Denies dyspnea Endocrine Endocrine: Denies palpitations Physical Exam 2 Vital Signs: Vital Signs: Last Vital Signs Temp 97.7 F 10/24/23 23:44 Pulse 96 10/24/23 23:44 Resp 18 10/24/23 23:44 BP 105/56 L 10/24/23 23:44 Pulse Ox 95 10/24/23 23:44 O2 Del Method Room Air 10/24/23 23:44 O2 Flow Rate 2 09/17/23 12:00 BMI result Body Mass Index 49.2 Appearing in no acute distress lung sounds are clear to auscultation heart regular rate rhythm, clear S1, S2 positive bowel sounds, abdomen is soft, nontender neuro patient is alert x3, no focal deficits Objective Data Active Medications Acetaminophen (Acetaminophen 325 Mg Tablet) 650 mg PO Q6H PRN PRN Reason: Pain, Mild (Pain Scale 1-3) Last Admin: 10/24/23 15:37 Dose: 650 mg Documented By: MONICA Apixaban (Apixaban 5 Mg Tablet) 5 mg PO BID [facility] Stop: 02/25/25 21:01 Last Admin: 10/24/23 20:04 Dose: 5 mg Documented By: KASI Aripiprazole (Aripiprazole 5 Mg Tablet) 2.5 mg PO DAILY [facility] Last Admin: 10/24/23 08:56 Dose: 2.5 mg Documented By: MONICA Calcium Carbonate (Calcium Carbonate 750 Mg Tab.Chew) 750 mg PO Q6H PRN PRN Reason: Heartburn Last Admin: 10/06/23 20:43 Dose: 750 mg Documented By: KASI Fludrocortisone Acetate (Fludrocortisone Acetate 0.1 Mg Tablet) 0.1 mg PO DAILY [facility] Last Admin: 10/24/23 08:56 Dose: 0.1 mg Documented By: MONICA Gabapentin (Gabapentin 100 Mg Capsule) 100 mg PO BID [facility] Last Admin: 10/24/23 20:03 Dose: 100 mg Documented By: KASI Glucose (Glucose Gel 15 Gm Gel..Gram.) 15 gm PO Q15M PRN; Protocol PRN Reason: per Hypoglycemia Standing Ord. Dextrose (D10) 250 mls @ 750 mls/hr IV Q15M PRN; Protocol PRN Reason: per Hypoglycemia Standing Ord. Midodrine (Midodrine Hcl 5 Mg Tablet) 5 mg PO TID [facility] Last Admin: 10/24/23 20:03 Dose: 5 mg Documented By: KASI Multi-Ingred Cream/Lotion/Oil/Oint (Mineral Oil/Petrolatum,White 106 Gm Tube) 1 appl TOPICAL BID [facility]; Protocol Last Admin: 10/24/23 20:11 Dose: Not Given Documented By: KASI Non-Admin Reason: Patient Refused Ondansetron HCl (Ondansetron Odt 4 Mg Tab.Rapdis) 4 mg TRANSLINGU Q6H PRN PRN Reason: Nausea and Vomiting Last Admin: 10/08/23 09:07 Dose: 4 mg Documented By: ANTON Polyethylene Glycol (Polyethylene Glycol 3350 17 Gm Powd.Pack) 17 gm PO DAILY [facility] Last Admin: 10/24/23 08:58 Dose: Not Given Documented By: MONICA Non-Admin Reason: Patient Refused Sertraline HCl (Sertraline Hcl 25 Mg Tablet) 12.5 mg PO BEDTIME [facility] Last Admin: 10/24/23 20:04 Dose: 12.5 mg Documented By: KASI Sodium Bicarbonate (Sodium Bicarbonate 650 Mg Tablet) 650 mg PO BID [facility] Last Admin: 10/24/23 20:03 Dose: 650 mg Documented By: KASI Trazodone HCl (Trazodone Hcl 25 Mg Halftab) 25 mg PO BEDTIME [facility] Last Admin: 10/24/23 20:04 Dose: 25 mg Documented By: KASI Labs 10/14/23 05:53 10/23/23 05:07 Labs: Laboratory Results - last 24 hr 10/24/23 10/24/23 10/24/23 07:14 11:14 16:03 POC Glucose 94 136 H 99 10/24/23 10/25/23 20:27 07:11 POC Glucose 102 97 Assessment and Plan (1) Acute DVT (deep venous thrombosis): Status: Acute Plan 53 years old male with PMH of DM2, HTN, Asthma who presented to ED After sustaining a fall and laying on the floor for 9 hours found to have severe acute kidney injury from rhabdomyolysis and hyperkalemia Acute on chronic DVT in right common femoral vein started on eliquis completed loading dose, continue 5 bid VQ scan nondiagnostic. No sob/chest pain due to suggest PE Sinus tachycardia back to baseline Acute diarrhea. Resolving gi panel negative cdif colonization but given acute diarrhea, completed 10 day course of oral vancomycin CHITO and severe hyperkalemia and acute metabolic acidosis due to ATN from rhabdomyolysis started on HD permacath placed 07/16/23, underwent catheter change 09/28 on midodrine 5 mg t.i.d. and Florinef 0.1 mg daily now with renal recovery - permcath removed 10/13. renal function remains stable continue po sodium bicarb hypokalemia- resolved Chronic Leg and back pain Stable, continue gabapentin 100mg BID dysphagia on NDD3 diet Depression. unspecified No behavioral issues, seen by psychiatry 08/23,on Abilify 2.5 mg daily low-dose since it can cause orthostasis, trazodone 25 mg at bedtime and Zoloft low-dose . patient tolerating current medications Acute?Rhabdomyolysis /Fall resolved with volume participating with physical therapy Diabetes type 2 stable blood sugars, last hemoglobin A1c 6.1 follow POCs Morbid Obesity. BMI 49.2 Discussed importance of weight management as this may be contributing to worsening of other comorbidities dvt ppx - eliquis Attending Dr. Alcantar Full code reason for continued hospitalization: debilitated; safe discharge to short-term rehab. monitor UO, renal function Quality Stroke Does the patient have a stroke diagnosis?: No VTE Prior VTE?: No VTE Risk Level:: Medical - moderate - high VTE Device Contraindication: N/A - Device Ordered VTE Drug Contraindication: N/A - Med Ordered
[2023-10-25 07:46] VITALS: BP 112/61; PULSE 104; RESP 16; TEMP 36.9; O2SAT 95
[2023-10-25 08:29] LABS: Glucose, Whole Blood 57 mg/dL (60-115)
[2023-10-25] MEDS: Acetaminophen 325 MG TABLET 650 MG PO ×2 (09:04→19:55)
[2023-10-25] MEDS: ARIPiprazole 5 MG TABLET 2.5 MG PO (09:05)
[2023-10-25] MEDS: Sodium Bicarbonate 650 MG TABLET PO ×2 (09:05→19:57)
[2023-10-25] MEDS: Gabapentin 100 MG CAPSULE PO ×2 (09:05→19:57)
[2023-10-25] MEDS: Fludrocortisone Acetate 0.1 MG TABLET PO (09:05)
[2023-10-25] MEDS: Apixaban 5 MG TABLET PO ×2 (09:05→19:57)
[2023-10-25] MEDS: Midodrine HCl 5 MG TABLET PO ×3 (09:05→19:57)
[2023-10-25 11:18] LABS: Glucose, Whole Blood 119 mg/dL (60-115)
[2023-10-25 15:01] VITALS: BP 122/83; PULSE 96; RESP 18; TEMP 36.7; O2SAT 97
[2023-10-25 16:11] LABS: Glucose, Whole Blood 94 mg/dL (60-115)
[2023-10-25] MEDS: traZODone HCL 25 MG HALFTAB PO (19:58)
[2023-10-25] MEDS: Sertraline HCL 25 MG TABLET 12.5 MG PO (19:58)
[2023-10-25 23:19] VITALS: BP 108/65; PULSE 93; RESP 18; TEMP 37.1; O2SAT 95
[2023-10-26 01:53] LABS: Glucose, Whole Blood 96 mg/dL (60-115)
[2023-10-26 07:11] LABS: Glucose, Whole Blood 97 mg/dL (60-115)
--- NOTE | 2023-10-26 07:23 | P.PNIM_ITS ---
Subjective Subjective Date of Service: 10/26/23 Interval History: seen and examined this morning doing better, no complaints No overnight events Review of Systems Review of Systems: Yes all other systems are reviewed and are negative Constitutional Constitutional: Denies chills and Denies fever(s) Cardiovascular Cardiovascular: Denies chest pain, Denies palpitations and Denies dyspnea Respiratory Respiratory: Denies cough and Denies dyspnea Endocrine Endocrine: Denies palpitations Physical Exam 2 Vital Signs: Vital Signs: Last Vital Signs Temp 98.7 F 10/25/23 23:19 Pulse 93 10/25/23 23:19 Resp 18 10/25/23 23:19 BP 108/65 10/25/23 23:19 Pulse Ox 95 10/25/23 23:19 O2 Del Method Room Air 10/25/23 23:19 O2 Flow Rate 2 09/17/23 12:00 BMI result Body Mass Index 49.2 Appearing in no acute distress lung sounds are clear to auscultation heart regular rate rhythm, clear S1, S2 positive bowel sounds, abdomen is soft, nontender neuro patient is alert x3, no focal deficits Objective Data Active Medications Acetaminophen (Acetaminophen 325 Mg Tablet) 650 mg PO Q6H PRN PRN Reason: Pain, Mild (Pain Scale 1-3) Last Admin: 10/25/23 19:55 Dose: 650 mg Documented By: KASI Apixaban (Apixaban 5 Mg Tablet) 5 mg PO BID [facility] Stop: 02/25/25 21:01 Last Admin: 10/25/23 19:57 Dose: 5 mg Documented By: KASI Aripiprazole (Aripiprazole 5 Mg Tablet) 2.5 mg PO DAILY [facility] Last Admin: 10/25/23 09:05 Dose: 2.5 mg Documented By: MONICA Calcium Carbonate (Calcium Carbonate 750 Mg Tab.Chew) 750 mg PO Q6H PRN PRN Reason: Heartburn Last Admin: 10/06/23 20:43 Dose: 750 mg Documented By: KASI Fludrocortisone Acetate (Fludrocortisone Acetate 0.1 Mg Tablet) 0.1 mg PO DAILY [facility] Last Admin: 10/25/23 09:05 Dose: 0.1 mg Documented By: MONICA Gabapentin (Gabapentin 100 Mg Capsule) 100 mg PO BID [facility] Last Admin: 09/16/24 19:57 Dose: 100 mg Documented By: KASI Glucose (Glucose Gel 15 Gm Gel..Gram.) 15 gm PO Q15M PRN; Protocol PRN Reason: per Hypoglycemia Standing Ord. Dextrose (D10) 250 mls @ 750 mls/hr IV Q15M PRN; Protocol PRN Reason: per Hypoglycemia Standing Ord. Midodrine (Midodrine Hcl 5 Mg Tablet) 5 mg PO TID [facility] Last Admin: 10/25/23 19:57 Dose: 5 mg Documented By: KASI Multi-Ingred Cream/Lotion/Oil/Oint (Mineral Oil/Petrolatum,White 106 Gm Tube) 1 appl TOPICAL BID [facility]; Protocol Last Admin: 10/25/23 20:00 Dose: Not Given Documented By: KASI Non-Admin Reason: Patient Refused Ondansetron HCl (Ondansetron Odt 4 Mg Tab.Rapdis) 4 mg TRANSLINGU Q6H PRN PRN Reason: Nausea and Vomiting Last Admin: 10/08/23 09:07 Dose: 4 mg Documented By: ANTON Polyethylene Glycol (Polyethylene Glycol 3350 17 Gm Powd.Pack) 17 gm PO DAILY [facility] Last Admin: 10/25/23 09:11 Dose: Not Given Documented By: MONICA Non-Admin Reason: Patient Refused Sertraline HCl (Sertraline Hcl 25 Mg Tablet) 12.5 mg PO BEDTIME [facility] Last Admin: 10/25/23 19:58 Dose: 12.5 mg Documented By: KASI Sodium Bicarbonate (Sodium Bicarbonate 650 Mg Tablet) 650 mg PO BID [facility] Last Admin: 10/25/23 19:57 Dose: 650 mg Documented By: KASI Trazodone HCl (Trazodone Hcl 25 Mg Halftab) 25 mg PO BEDTIME [facility] Last Admin: 10/25/23 19:58 Dose: 25 mg Documented By: KASI Labs 10/14/23 05:53 10/23/23 05:07 Labs: Laboratory Results - last 24 hr 10/21/23 10/25/23 10/25/23 11:34 11:15 16:09 POC Glucose 57 L* 119 H 94 10/25/23 10/26/23 20:21 07:06 POC Glucose 96 97 Assessment and Plan (1) Acute DVT (deep venous thrombosis): Status: Acute Plan 53 years old male with PMH of DM2, HTN, Asthma who presented to ED After sustaining a fall and laying on the floor for 9 hours found to have severe acute kidney injury from rhabdomyolysis and hyperkalemia Acute on chronic DVT in right common femoral vein eliquis 5 bid VQ scan nondiagnostic. No sob/chest pain due to suggest PE Sinus tachycardia baseline Acute diarrhea. Resolved gi panel negative cdif colonization but given acute diarrhea, s/p 10 day course of oral vancomycin CHITO and severe hyperkalemia and acute metabolic acidosis due to ATN from rhabdomyolysis started on HD. Resolved permacath placed 07/16/23, underwent catheter change 09/28 on midodrine 5 mg t.i.d. and Florinef 0.1 mg daily now with renal recovery - permcath removed 10/13. renal function remains stable continue po sodium bicarb hypokalemia- resolved Chronic Leg and back pain Stable, continue gabapentin 100mg BID dysphagia on NDD3 diet Depression. unspecified No behavioral issues seen by psychiatry 08/23 on Abilify 2.5 mg daily low-dose since it can cause orthostasis, trazodone 25 mg at bedtime and Zoloft low-dose . patient tolerating current medications Acute?Rhabdomyolysis /Fall resolved with volume participating with physical therapy Diabetes type 2 stable blood sugars, last hemoglobin A1c 6.1 follow POCs Morbid Obesity. BMI 49.2 Discussed importance of weight management as this may be contributing to worsening of other comorbidities dvt ppx - eliquis Attending Dr. Johnson Full code reason for continued hospitalization: debilitated; safe discharge to short-term rehab. monitor UO, renal function Quality Stroke Does the patient have a stroke diagnosis?: No VTE Prior VTE?: No VTE Risk Level:: Medical - moderate - high VTE Device Contraindication: N/A - Device Ordered VTE Drug Contraindication: N/A - Med Ordered
[2023-10-26 07:31] VITALS: BP 111/66; PULSE 116; RESP 18; TEMP 37.1; O2SAT 96
[2023-10-26] MEDS: Sodium Bicarbonate 650 MG TABLET PO ×2 (07:54→19:41)
[2023-10-26] MEDS: ARIPiprazole 5 MG TABLET 2.5 MG PO (07:54)
[2023-10-26] MEDS: Apixaban 5 MG TABLET PO ×2 (07:54→19:41)
[2023-10-26] MEDS: Midodrine HCl 5 MG TABLET PO ×3 (07:54→19:41)
[2023-10-26] MEDS: Fludrocortisone Acetate 0.1 MG TABLET PO (07:54)
[2023-10-26] MEDS: Gabapentin 100 MG CAPSULE PO ×2 (07:55→19:41)
[2023-10-26 11:12] LABS: Glucose, Whole Blood 96 mg/dL (60-115)
[2023-10-26 15:05] VITALS: BP 116/71; PULSE 100; RESP 18; TEMP 37; O2SAT 97
--- NOTE | 2023-10-26 15:19 | MHC.CM.PN ---
CM CONTINUES TO DECLINE STR , PT'S GOAL IS HOME WITH HOME SERVICES. FAMILY IS UNABLE TO ASSIST AT THIS TIME. PT IS CONTINUING TO DO POORLY WITH P.T., P.T. RECOMMENDS 31/08 ASSIST VS STR. CM WILL CONTINUE TO FOLLOW FOR A SAFE DC PLAN.
[2023-10-26 16:57] LABS: Glucose, Whole Blood 96 mg/dL (60-115)
[2023-10-26 19:32] VITALS: BP 122/68; PULSE 108; RESP 18; TEMP 36.5; O2SAT 100
[2023-10-26] MEDS: Sertraline HCL 25 MG TABLET 12.5 MG PO (19:41)
[2023-10-26] MEDS: traZODone HCL 25 MG HALFTAB PO (19:41)
[2023-10-26 20:54] LABS: Glucose, Whole Blood 93 mg/dL (60-115)
[2023-10-27 03:04] VITALS: BP 104/75; PULSE 103; RESP 16; TEMP 36.3; O2SAT 98
[2023-10-27 06:20] LABS: Anion Gap 14 (12-20); Blood Urea Nitrogen 19 mg/dL (9-16); Calcium 9.4 mg/dL (8.4-10.2); Carbon Dioxide 26 mmol/L (22-29); Chloride 105 mmol/L (96-108); Creatinine Clr Calc Pharmacy 47.2; Estimated Glomerular Filt Rate 26; Glucose Random 91 mg/dL (60-115); Potassium 3.9 mmol/L (3.3-5.1); Sodium 141 mmol/L (135-145)
[2023-10-27 07:14] VITALS: BP 102/65; PULSE 99; RESP 18; TEMP 36.4; O2SAT 96
[2023-10-27 07:21] LABS: Glucose, Whole Blood 91 mg/dL (60-115)
[2023-10-27] MEDS: Fludrocortisone Acetate 0.1 MG TABLET PO (08:19)
[2023-10-27] MEDS: Gabapentin 100 MG CAPSULE PO ×2 (08:19→19:58)
[2023-10-27] MEDS: Apixaban 5 MG TABLET PO ×2 (08:19→19:58)
[2023-10-27] MEDS: Midodrine HCl 5 MG TABLET PO ×3 (08:19→19:58)
[2023-10-27] MEDS: Sodium Bicarbonate 650 MG TABLET PO ×2 (08:19→19:58)
[2023-10-27] MEDS: ARIPiprazole 5 MG TABLET 2.5 MG PO (08:19)
--- NOTE | 2023-10-27 11:27 | P.PNIM_ITS ---
Subjective Subjective Date of Service: 10/27/23 Interval History: Being followed for placement. Offers no acute complaints, tolerating diet, no nausea, no vomiting, no abdominal pain or diarrhea. Review of Systems All other system reviewed and are negative. Constitutional Constitutional: Reports as per HPI, Reports no additional constitutional complaints, Denies chills, Denies fever(s) and Reports malaise Eyes Eyes: Reports as per HPI and Reports no additional eye complaints ENT Ears, Nose, Mouth, and Throat: Denies system reviewed and no additional complaints, except as documented, Reports as per HPI and Denies dizziness Cardiovascular Cardiovascular: Reports as per HPI, Reports no additional cardiovascular complaints, Denies acrocyanosis, Denies cool extremities, Denies chest pain, Denies leg edema, Denies lightheadedness, Denies palpitations and Denies dyspnea Respiratory Respiratory: Reports as per HPI, Reports no additional respiratory complaints, Denies cough and Denies dyspnea Gastrointestinal Gastrointestinal: Reports as per HPI, Denies no additional gastrointestinal complaints, Denies abdominal pain, Reports diarrhea and Reports nausea Genitourinary Genitourinary: Reports no additional male genitourinary complaints and Reports as per HPI Musculoskeletal Musculoskeletal: Reports no additional musculoskeletal complaints, Reports as per HPI, Reports myalgias and Reports stiffness Integumentary/Breasts Skin/Breast: Reports no additional skin complaints Neurologic Neurologic: Reports system reviewed and no additional complaints, except as documented, Reports as per HPI and Denies dizziness Psychiatric Psychiatric: Reports no additional psychiatric complaints and Reports as per HPI Endocrine Endocrine: Reports no additional endocrine complaints, Reports as per HPI and Denies palpitations Hematologic/Lymphatic Hematologic/Lymphatic: Reports no additional hematologic/lymphatic complaints and Reports as per HPI Allergic/Immunologic Allergic/Immunologic: Reports no additional allergic/immunologic complaints and Reports as per HPI Physical Exam 2 Vital Signs: Vital Signs: Last Vital Signs Temp 97.5 F 10/27/23 07:14 Pulse 99 10/27/23 07:14 Resp 18 10/27/23 07:14 BP 102/65 10/27/23 07:14 Pulse Ox 96 10/27/23 07:14 O2 Del Method Room Air 10/27/23 07:14 O2 Flow Rate 2 09/17/23 12:00 BMI result Body Mass Index 49.2 Const: Other: General awake alert in no distress anicteric sclera Neck no JVD. CVS regular rate rhythm, Respiratory lungs clear to auscultation, no respiratory distress, no wheeze, no rhonchi. Gastrointestinal abdomen soft, non tender, bowel sounds audible. Extremities no edema. Neuro non focal, speech clear. Skin no rash Psych appropriate affect Objective Data Active Medications Acetaminophen (Acetaminophen 325 Mg Tablet) 650 mg PO Q6H PRN PRN Reason: Pain, Mild (Pain Scale 1-3) Last Admin: 10/25/23 19:55 Dose: 650 mg Documented By: KASI Apixaban (Apixaban 5 Mg Tablet) 5 mg PO BID [facility] Stop: 02/25/25 21:01 Last Admin: 10/27/23 08:19 Dose: 5 mg Documented By: KARIME Aripiprazole (Aripiprazole 5 Mg Tablet) 2.5 mg PO DAILY [facility] Last Admin: 10/27/23 08:19 Dose: 2.5 mg Documented By: KARIME Calcium Carbonate (Calcium Carbonate 750 Mg Tab.Chew) 750 mg PO Q6H PRN PRN Reason: Heartburn Last Admin: 10/06/23 20:43 Dose: 750 mg Documented By: KASI Fludrocortisone Acetate (Fludrocortisone Acetate 0.1 Mg Tablet) 0.1 mg PO DAILY [facility] Last Admin: 10/27/23 08:19 Dose: 0.1 mg Documented By: KARIME Gabapentin (Gabapentin 100 Mg Capsule) 100 mg PO BID [facility] Last Admin: 10/27/23 08:19 Dose: 100 mg Documented By: KARIME Glucose (Glucose Gel 15 Gm Gel..Gram.) 15 gm PO Q15M PRN; Protocol PRN Reason: per Hypoglycemia Standing Ord. Dextrose (D10) 250 mls @ 750 mls/hr IV Q15M PRN; Protocol PRN Reason: per Hypoglycemia Standing Ord. Midodrine (Midodrine Hcl 5 Mg Tablet) 5 mg PO TID [facility] Last Admin: 10/27/23 08:19 Dose: 5 mg Documented By: KARIME Multi-Ingred Cream/Lotion/Oil/Oint (Mineral Oil/Petrolatum,White 106 Gm Tube) 1 appl TOPICAL BID [facility]; Protocol Last Admin: 10/27/23 07:20 Dose: Not Given Documented By: KARIME Non-Admin Reason: Patient Refused Ondansetron HCl (Ondansetron Odt 4 Mg Tab.Rapdis) 4 mg TRANSLINGU Q6H PRN PRN Reason: Nausea and Vomiting Last Admin: 10/08/23 09:07 Dose: 4 mg Documented By: ANTON Polyethylene Glycol (Polyethylene Glycol 3350 17 Gm Powd.Pack) 17 gm PO DAILY [facility] Last Admin: 10/27/23 07:20 Dose: Not Given Documented By: KARIME Non-Admin Reason: Patient Refused Sertraline HCl (Sertraline Hcl 25 Mg Tablet) 12.5 mg PO BEDTIME [facility] Last Admin: 10/26/23 19:41 Dose: 12.5 mg Documented By: HERMELINDO Sodium Bicarbonate (Sodium Bicarbonate 650 Mg Tablet) 650 mg PO BID [facility] Last Admin: 10/27/23 08:19 Dose: 650 mg Documented By: KARIME Trazodone HCl (Trazodone Hcl 25 Mg Halftab) 25 mg PO BEDTIME [facility] Last Admin: 10/26/23 19:41 Dose: 25 mg Documented By: HERMELINDO Labs 10/14/23 05:53 10/27/23 05:45 Labs: Laboratory Results - last 24 hr 10/26/23 10/26/23 10/27/23 16:47 20:49 05:45 Anion Gap 14 Estim Creat Clear Calc 47.2 Estimated GFR 26 POC Glucose 96 93 Random Glucose 91 Calcium 9.4 10/27/23 07:17 Anion Gap Estim Creat Clear Calc Estimated GFR POC Glucose 91 Random Glucose Calcium Assessment and Plan (1) Hypotension: Status: Acute Plan 53 years old male with PMH of DM2, HTN, Asthma who presented to ED After sustaining a fall and laying on the floor for 9 hours found to have severe acute kidney injury from rhabdomyolysis and hyperkalemia Acute on chronic DVT in right common femoral vein eliquis 5 bid VQ scan nondiagnostic. Sinus tachycardia baseline Acute diarrhea. Resolved gi panel negative cdif colonization but given acute diarrhea, s/p 10 day course of oral vancomycin CHITO and severe hyperkalemia and acute metabolic acidosis due to ATN from rhabdomyolysis started on HD. Resolved permacath placed 07/16/23, underwent catheter change 09/28 on midodrine 5 mg t.i.d. and Florinef 0.1 mg daily now with renal recovery - permcath removed 10/13. renal function remains stable continue po sodium bicarb hypokalemia- resolved Chronic Leg and back pain Stable, continue gabapentin 100mg BID dysphagia on NDD3 diet Depression. unspecified No behavioral issues seen by psychiatry 08/23 on Abilify 2.5 mg daily low-dose since it can cause orthostasis, trazodone 25 mg at bedtime and Zoloft 12.5 mg low-dose . tolerating current medications Acute?Rhabdomyolysis /Fall resolved with volume participating with physical therapy Diabetes type 2 stable blood sugars, last hemoglobin A1c 6.1 Change point of care blood sugar monitoring to bid Morbid Obesity. 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
[2023-10-27 11:31] LABS: Glucose, Whole Blood 100 mg/dL (60-115)
[2023-10-27 12:36] VITALS: BP 102/65; PULSE 99; O2SAT 96
--- NOTE | 2023-10-27 15:25 | MHC.CM.PN ---
[place] [facility] liason is scheduled to come in to assess the patient tomorrow, 10/28/23.
[2023-10-27 15:40] VITALS: BP 101/67; PULSE 99; RESP 20; TEMP 36.6; O2SAT 98
[2023-10-27 16:16] LABS: Glucose, Whole Blood 137 mg/dL (60-115)
[2023-10-27 19:37] VITALS: BP 104/70; PULSE 99; RESP 20; TEMP 36.4; O2SAT 97
[2023-10-27] MEDS: traZODone HCL 25 MG HALFTAB PO (19:58)
[2023-10-27] MEDS: Sertraline HCL 25 MG TABLET 12.5 MG PO (19:58)
[2023-10-27] MEDS: Ondansetron ODT 4 MG TAB.RAPDIS TRANSLINGU (20:01)
[2023-10-27 21:04] LABS: Glucose, Whole Blood 108 mg/dL (60-115)
[2023-10-28 03:51] VITALS: BP 102/54; PULSE 98; RESP 18; TEMP 37.1; O2SAT 97
[2023-10-28 07:40] VITALS: BP 116/70; PULSE 90; RESP 17; TEMP 36.9; O2SAT 96
[2023-10-28] MEDS: ARIPiprazole 5 MG TABLET 2.5 MG PO (08:04)
[2023-10-28] MEDS: Apixaban 5 MG TABLET PO ×2 (08:05→19:40)
[2023-10-28] MEDS: Midodrine HCl 5 MG TABLET PO ×3 (08:06→19:59)
[2023-10-28] MEDS: Sodium Bicarbonate 650 MG TABLET PO ×2 (08:06→19:40)
[2023-10-28] MEDS: Gabapentin 100 MG CAPSULE PO ×2 (08:06→19:40)
[2023-10-28] MEDS: Fludrocortisone Acetate 0.1 MG TABLET PO (08:07)
[2023-10-28 08:42] LABS: Glucose, Whole Blood 110 mg/dL (60-115)
--- NOTE | 2023-10-28 09:36 | P.PNNP_ITS ---
Subjective Subjective Date of Service: 10/28/23 Principal diagnosis: Elevated troponins Interval history: Being followed for placement. Examined this morning, pt denies acute changes or concerns. Reports he is urinating every few hours (urinal), 200-300mL each time Good appetite No events overnight Physical Exam 2 Vital Signs: Vital Signs: Last Vital Signs Temp 98.5 F 10/28/23 07:40 Pulse 90 10/28/23 07:40 Resp 17 10/28/23 07:40 BP 116/70 10/28/23 07:40 Pulse Ox 96 10/28/23 07:40 O2 Del Method Room Air 10/28/23 07:40 O2 Flow Rate 2 09/17/23 12:00 BMI result Body Mass Index 49.2 Const: General: comfortable and no acute distress O rientation/consciousness: patient oriented x3 Neck: Neck: Yes supple Resp: Auscultation: clear to auscultation bilaterally Cardio: Jugular venous distension: no JVD Rate: regular rate Heart sounds: Murmur heart sound present GI: Palpation (GI): Soft to palpation Auscultation: normal bowel sounds : General: Yes no CVA tenderness Back/Spine/Pelvis: Back: no CVA tenderness Skin: General skin exam: no rashes or lesions noted Neuro: General: patient oriented x3 and moves all extremities Extrem: General: Yes no pedal edema Objective Data Labs 10/14/23 05:53 10/27/23 05:45 Labs: Laboratory Results - last 24 hr 10/27/23 10/27/23 10/27/23 11:27 16:12 20:55 POC Glucose 100 137 H 108 10/28/23 08:38 POC Glucose 110 Microbiology Microbiology Results: Microbiology 07/20/23 22:49 Blood - Venous Blood Culture - Final No growth after 5 days. 07/20/23 22:49 Blood - Venous Blood Culture - Final No growth after 5 days. 07/12/23 12:30 Blood - Venous Blood Culture - Final No growth after 5 days. 07/12/23 12:15 Blood - Venous Blood Culture - Final No growth after 5 days. 07/12/23 Unknown Urine Catheterized - Straight Catheter Urine Culture - Final No growth. 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 Was on HD- Stopped; C/W midodrine 5mg PO TID and Flornief 0.1mg PO daily. Monitor blood pressures Discontinue NaHCO3 PO 650mg BID May need a dose of Procrit [id number] U, recheck hemoglobin C/W rest of current management Time Spent With Patient Time: Total time managing care of this patient today ____ minutes. Progress Note: Quality Stroke Does the patient have a stroke diagnosis?: No
--- NOTE | 2023-10-28 12:57 | HO.PM.IMPN ---
Subjective Subjective Date of Service: 10/28/23 Interval History: Being followed for placement. Offers no acute complaints stable blood sugars around 100 tolerating diet, no nausea, no vomiting, no abdominal pain, no acute issues overnight. Review of Systems All other system reviewed and are negative. Physical Exam Vital Signs: Vital Signs: Last Vital Signs Temp 98.5 F 10/28/23 07:40 Pulse 90 10/28/23 07:40 Resp 17 10/28/23 07:40 BP 116/70 10/28/23 07:40 Pulse Ox 96 10/28/23 07:40 O2 Del Method Room Air 10/28/23 07:40 O2 Flow Rate 2 09/17/23 12:00 BMI result Body Mass Index 49.2 Const: Other: General awake alert in no distress anicteric sclera Neck no JVD. CVS regular rate rhythm, Respiratory lungs clear to auscultation, no respiratory distress, no wheeze, no rhonchi. Gastrointestinal abdomen soft, non tender, bowel sounds audible. Extremities no edema. Neuro non focal, speech clear. Skin no rash Psych appropriate affect Objective Data Active Medications Acetaminophen (Acetaminophen 325 Mg Tablet) 650 mg PO Q6H PRN PRN Reason: Pain, Mild (Pain Scale 1-3) Last Admin: 10/25/23 19:55 Dose: 650 mg Documented By: KASI Apixaban (Apixaban 5 Mg Tablet) 5 mg PO BID [facility] Stop: 02/25/25 21:01 Last Admin: 10/28/23 08:05 Dose: 5 mg Documented By: ALETHA Aripiprazole (Aripiprazole 5 Mg Tablet) 2.5 mg PO DAILY [facility] Last Admin: 10/28/23 08:04 Dose: 2.5 mg Documented By: ALETHA Comments: [id number] Calcium Carbonate (Calcium Carbonate 750 Mg Tab.Chew) 750 mg PO Q6H PRN PRN Reason: Heartburn Last Admin: 10/06/23 20:43 Dose: 750 mg Documented By: KASI Fludrocortisone Acetate (Fludrocortisone Acetate 0.1 Mg Tablet) 0.1 mg PO DAILY [facility] Last Admin: 10/28/23 08:07 Dose: 0.1 mg Documented By: ALETHA Gabapentin (Gabapentin 100 Mg Capsule) 100 mg PO BID [facility] Last Admin: 10/28/23 08:06 Dose: 100 mg Documented By: ALETHA Glucose (Glucose Gel 15 Gm Gel..Gram.) 15 gm PO Q15M PRN; Protocol PRN Reason: per Hypoglycemia Standing Ord. Dextrose (D10) 250 mls @ 750 mls/hr IV Q15M PRN; Protocol PRN Reason: per Hypoglycemia Standing Ord. Midodrine (Midodrine Hcl 5 Mg Tablet) 5 mg PO TID [facility] Last Admin: 10/28/23 08:06 Dose: 5 mg Documented By: ALETHA Multi-Ingred Cream/Lotion/Oil/Oint (Mineral Oil/Petrolatum,White 106 Gm Tube) 1 appl TOPICAL BID [facility]; Protocol Last Admin: 10/28/23 08:12 Dose: Not Given Documented By: ALETHA Non-Admin Reason: Patient Refused Ondansetron HCl (Ondansetron Odt 4 Mg Tab.Rapdis) 4 mg TRANSLINGU Q6H PRN PRN Reason: Nausea and Vomiting Last Admin: 10/27/23 20:01 Dose: 4 mg Documented By: HERMELINDO Polyethylene Glycol (Polyethylene Glycol 3350 17 Gm Powd.Pack) 17 gm PO DAILY [facility] Last Admin: 10/28/23 08:12 Dose: Not Given Documented By: ALETHA Non-Admin Reason: Patient Refused Sertraline HCl (Sertraline Hcl 25 Mg Tablet) 12.5 mg PO BEDTIME [facility] Last Admin: 10/27/23 19:58 Dose: 12.5 mg Documented By: HERMELINDO Sodium Bicarbonate (Sodium Bicarbonate 650 Mg Tablet) 650 mg PO BID [facility] Last Admin: 10/28/23 08:06 Dose: 650 mg Documented By: ALETHA Trazodone HCl (Trazodone Hcl 25 Mg Halftab) 25 mg PO BEDTIME [facility] Last Admin: 10/27/23 19:58 Dose: 25 mg Documented By: HERMELINDO Labs 10/14/23 05:53 10/27/23 05:45 Labs: Laboratory Results - last 24 hr 10/27/23 10/27/23 10/28/23 16:12 20:55 08:38 POC Glucose 137 H 108 110 Assessment and Plan (1) Acute DVT (deep venous thrombosis): Status: Acute Plan 53 years old male with PMH of DM2, HTN, Asthma who presented to ED After sustaining a fall and laying on the floor for 9 hours found to have severe acute kidney injury from rhabdomyolysis and hyperkalemia Acute on chronic DVT in right common femoral vein eliquis 5 bid VQ scan nondiagnostic. Sinus tachycardia baseline Acute diarrhea. Resolved gi panel negative cdif colonization but given acute diarrhea, s/p 10 day course of oral vancomycin CHITO and severe hyperkalemia and acute metabolic acidosis due to ATN from rhabdomyolysis started on HD. Resolved permacath placed 07/16/23, underwent catheter change 09/28 on midodrine 5 mg t.i.d. and Florinef 0.1 mg daily now with renal recovery - permcath removed 10/13. renal function remains stable continue po sodium bicarb hypokalemia- resolved Chronic Leg and back pain Stable, continue gabapentin 100mg BID dysphagia on NDD3 diet Depression. unspecified No behavioral issues seen by psychiatry 08/23 on Abilify 2.5 mg daily low-dose since it can cause orthostasis, trazodone 25 mg at bedtime and Zoloft 12.5 mg low-dose . tolerating current medications Acute?Rhabdomyolysis /Fall resolved with volume participating with physical therapy Diabetes type 2 stable blood sugars, last hemoglobin A1c 6.1 follow bs bid Morbid Obesity. BMI 49.2 Discussed importance of weight management as this may be contributing to worsening of other comorbidities dvt ppx - eliquis Full code reason for continued hospitalization: debilitated; safe discharge to home , correctional case records supervisor arranging for safe disposition Quality Stroke Does the patient have a stroke diagnosis?: No VTE Prior VTE?: No VTE Risk Level:: Medical - moderate - high VTE Device Contraindication: N/A - Device Ordered VTE Drug Contraindication: N/A - Med Ordered
--- NOTE | 2023-10-28 14:06 | MHC.CM.PN ---
CM MET WITH PT AND L[facility]ISON FROM [facility] TO [facility]. PT IS DECLINING STR AND IS ADAMANT THAT THE PLAN WILL BE HOME WITH SERVICES. PT HAS BEEN ACCEPTED BY [facility] FOR HOME SERVICES. CM PROVIDED PT WITH A LIST OF PP AGENCIES FOR NON-SKILLED SERVICES. EC LIAISON IS AWARE OF DEVELOPING PLAN AND WILL STOP IN TO SEE PT REGARDING NEEDS/[employer]. [facility] FIN[employer]CIAL COUNSELOR CONFIRMS HE HAS MH STANDARD AND THAT [employer] SHOULD BE COVERED. CM WILL CONTINUE TO WORK WITH EC LIAISON TO SET UP HOME SERVICES AND FOLLOW FOR ANY CHANGE IN PLAN.
[2023-10-28 15:26] VITALS: BP 116/70; PULSE 90; O2SAT 96
[2023-10-28 15:45] VITALS: BP 130/73; PULSE 106; RESP 18; TEMP 36.4; O2SAT 97
[2023-10-28 19:14] VITALS: BP 138/69; PULSE 100; RESP 20; TEMP 36.8; O2SAT 96
[2023-10-28] MEDS: traZODone HCL 25 MG HALFTAB PO (19:40)
[2023-10-28] MEDS: Sertraline HCL 25 MG TABLET 12.5 MG PO (19:40)
[2023-10-28 21:09] LABS: Glucose, Whole Blood 104 mg/dL (60-115)
[2023-10-29 03:24] VITALS: BP 111/68; PULSE 106; RESP 18; TEMP 36.6; O2SAT 93
[2023-10-29 07:59] VITALS: BP 115/70; PULSE 100; RESP 18; TEMP 36.7; O2SAT 96
[2023-10-29 08:21] LABS: Glucose, Whole Blood 97 mg/dL (60-115)
[2023-10-29] MEDS: Sodium Bicarbonate 650 MG TABLET PO ×2 (08:56→21:25)
[2023-10-29] MEDS: ARIPiprazole 5 MG TABLET 2.5 MG PO (08:56)
[2023-10-29] MEDS: Midodrine HCl 5 MG TABLET PO ×3 (08:58→21:25)
[2023-10-29] MEDS: Fludrocortisone Acetate 0.1 MG TABLET PO (08:58)
[2023-10-29] MEDS: Gabapentin 100 MG CAPSULE PO ×2 (08:58→21:25)
[2023-10-29] MEDS: Apixaban 5 MG TABLET PO ×2 (08:58→21:25)
--- NOTE | 2023-10-29 10:47 | MHC.CLN ---
NURITION PATIENT LIKES AND ACCEPTS ONLY [facility]. [facility] PROVIDES 1050 KCALS, 60 G PROTEIN. DINING SERVICES AWARE OF PREFERENCE. CONTINUE REGULAR, CHOPPED DIET WITH [facility].
--- NOTE | 2023-10-29 12:19 | HO.PM.IMPN ---
Subjective Subjective Date of Service: 10/29/23 Interval History: Being followed for placement Offers no acute complaints, ambulating in hallways, denies pain, tolerating diet no issues with bowel or bladder. Review of Systems All other system reviewed and are negative. Physical Exam Vital Signs: Vital Signs: Last Vital Signs Temp 98.0 F 10/29/23 07:59 Pulse 100 10/29/23 07:59 Resp 18 10/29/23 07:59 BP 115/70 10/29/23 07:59 Pulse Ox 96 10/29/23 07:59 O2 Del Method Room Air 10/29/23 07:59 O2 Flow Rate 2 09/17/23 12:00 BMI result Body Mass Index 49.2 Const: Other: General awake alert in no distress anicteric sclera Neck no JVD. CVS regular rate rhythm, Respiratory lungs clear to auscultation, no respiratory distress, no wheeze, no rhonchi. Gastrointestinal abdomen soft, non tender, bowel sounds audible. Extremities no edema. Neuro non focal, speech clear. Skin no rash Psych appropriate affect Objective Data Active Medications Acetaminophen (Acetaminophen 325 Mg Tablet) 650 mg PO Q6H PRN PRN Reason: Pain, Mild (Pain Scale 1-3) Last Admin: 10/25/23 19:55 Dose: 650 mg Documented By: KASI Apixaban (Apixaban 5 Mg Tablet) 5 mg PO BID [facility] Stop: 02/25/25 21:01 Last Admin: 10/29/23 08:58 Dose: 5 mg Documented By: ALETHA Aripiprazole (Aripiprazole 5 Mg Tablet) 2.5 mg PO DAILY [facility] Last Admin: 10/29/23 08:56 Dose: 2.5 mg Documented By: ALETHA Calcium Carbonate (Calcium Carbonate 750 Mg Tab.Chew) 750 mg PO Q6H PRN PRN Reason: Heartburn Last Admin: 10/06/23 20:43 Dose: 750 mg Documented By: KASI Fludrocortisone Acetate (Fludrocortisone Acetate 0.1 Mg Tablet) 0.1 mg PO DAILY [facility] Last Admin: 10/29/23 08:58 Dose: 0.1 mg Documented By: ALETHA Gabapentin (Gabapentin 100 Mg Capsule) 100 mg PO BID [facility] Last Admin: 10/29/23 08:58 Dose: 100 mg Documented By: ALETHA Glucose (Glucose Gel 15 Gm Gel..Gram.) 15 gm PO Q15M PRN; Protocol PRN Reason: per Hypoglycemia Standing Ord. Dextrose (D10) 250 mls @ 750 mls/hr IV Q15M PRN; Protocol PRN Reason: per Hypoglycemia Standing Ord. Midodrine (Midodrine Hcl 5 Mg Tablet) 5 mg PO TID [facility] Last Admin: 10/29/23 08:58 Dose: 5 mg Documented By: ALETHA Multi-Ingred Cream/Lotion/Oil/Oint (Mineral Oil/Petrolatum,White 106 Gm Tube) 1 appl TOPICAL BID [facility]; Protocol Last Admin: 10/29/23 09:03 Dose: Not Given Documented By: ALETHA Non-Admin Reason: Patient Refused Ondansetron HCl (Ondansetron Odt 4 Mg Tab.Rapdis) 4 mg TRANSLINGU Q6H PRN PRN Reason: Nausea and Vomiting Last Admin: 10/27/23 20:01 Dose: 4 mg Documented By: HERMELINDO Polyethylene Glycol (Polyethylene Glycol 3350 17 Gm Powd.Pack) 17 gm PO DAILY [facility] Last Admin: 10/29/23 09:02 Dose: Not Given Documented By: ALETHA Non-Admin Reason: Patient Refused Sertraline HCl (Sertraline Hcl 25 Mg Tablet) 12.5 mg PO BEDTIME [facility] Last Admin: 10/28/23 19:40 Dose: 12.5 mg Documented By: HERMELINDO Sodium Bicarbonate (Sodium Bicarbonate 650 Mg Tablet) 650 mg PO BID [facility] Last Admin: 10/29/23 08:56 Dose: 650 mg Documented By: ALETHA Trazodone HCl (Trazodone Hcl 25 Mg Halftab) 25 mg PO BEDTIME [facility] Last Admin: 10/28/23 19:40 Dose: 25 mg Documented By: HERMELINDO Labs 10/14/23 05:53 10/27/23 05:45 Labs: Laboratory Results - last 24 hr 10/28/23 10/29/23 21:05 08:17 POC Glucose 104 97 Assessment and Plan (1) Major depression, recurrent: Status: Acute Plan 53 years old male with PMH of DM2, HTN, Asthma who presented to ED After sustaining a fall and laying on the floor for 9 hours found to have severe acute kidney injury from rhabdomyolysis and hyperkalemia Acute on chronic DVT in right common femoral vein eliquis 5 bid VQ scan nondiagnostic. Sinus tachycardia baseline Acute diarrhea. Resolved gi panel negative cdif colonization but given acute diarrhea, s/p 10 day course of oral vancomycin CHITO and severe hyperkalemia and acute metabolic acidosis due to ATN from rhabdomyolysis started on HD. Resolved permacath placed 07/16/23, underwent catheter change 09/28 on midodrine 5 mg t.i.d. and Florinef 0.1 mg daily now with renal recovery - permcath removed 10/13. renal function remains stable continue po sodium bicarb hypokalemia- resolved Chronic Leg and back pain Stable, continue gabapentin 100mg BID dysphagia on NDD3 diet Depression. unspecified No behavioral issues seen by psychiatry 08/23 on Abilify 2.5 mg daily low-dose since it can cause orthostasis, trazodone 25 mg at bedtime and Zoloft 12.5 mg low-dose . tolerating current medications Acute?Rhabdomyolysis /Fall resolved with volume participating with physical therapy Diabetes type 2 stable blood sugars, last hemoglobin A1c 6.1 follow bs bid Morbid Obesity. BMI 49.2 Discussed importance of weight management as this may be contributing to worsening of other comorbidities dvt ppx - eliquis Full code reason for continued hospitalization: debilitated; safe discharge to home , housing case manager arranging for safe disposition Quality Stroke Does the patient have a stroke diagnosis?: No VTE Prior VTE?: No VTE Risk Level:: Medical - moderate - high VTE Device Contraindication: N/A - Device Ordered VTE Drug Contraindication: N/A - Med Ordered
--- NOTE | 2023-10-29 13:37 | MHC.CM.PN ---
Addendum entered by Marjorie Anton 10/29/23 15:01: PER EC LIAISON, PT WILL NEED TO CONVERT TO A [employer] LIKE [employer] TO BE ABLE TO HAVE MORE RESOURCES AT HOME. CM DIRECTOR MADE AWARE. WILL F/U ON WEDNESDAY TO SEE WHO MAY ASSIST WITH THIS PROCESS. Original Note: EMR REVIEWED AND PER MD ROUNDS, PT REMAINS MEDICALLY CLEARED FOR DC. THIS CM SPOKE WITH MOI FROM [facility] WHO WILL SPEAK WITH FINANCIAL COUNSELOR ABOUT INSURANCE AND WILL INVESTIGATE WHAT HOME SERVICES CAN BE COVERED BY HIS INSURANCE (NON SKILLED) CM HAS UPDATED PT ON THIS AND SENT CLINICAL UPDATES TO [facility]. CLARICE CONTINUES TO WORK WITH [facility] [employer] FOR INCREASED HOME SERVICES IN PREPARATION FOR DC.
[2023-10-29 13:42] VITALS: BP 115/70; PULSE 100; O2SAT 96
[2023-10-29 14:55] VITALS: BP 116/77; PULSE 92; RESP 18; TEMP 36.5; O2SAT 98
[2023-10-29 19:10] VITALS: BP 110/67; PULSE 99; RESP 20; TEMP 36.3; O2SAT 98
[2023-10-29] MEDS: traZODone HCL 25 MG HALFTAB PO (21:24)
[2023-10-29] MEDS: Sertraline HCL 25 MG TABLET 12.5 MG PO (21:24)
[2023-10-29] MEDS: Acetaminophen 325 MG TABLET 650 MG PO (21:32)
[2023-10-29 21:39] LABS: Glucose, Whole Blood 85 mg/dL (60-115)
[2023-10-30 04:00] VITALS: BP 112/79; PULSE 93; RESP 16; TEMP 36.7; O2SAT 96
[2023-10-30 07:15] VITALS: PULSE 101; RESP 18; TEMP 36.9; O2SAT 96
[2023-10-30 07:21] VITALS: BP 110/60
[2023-10-30] MEDS: Fludrocortisone Acetate 0.1 MG TABLET PO (07:47)
[2023-10-30] MEDS: Sodium Bicarbonate 650 MG TABLET PO ×2 (07:47→20:21)
[2023-10-30] MEDS: Gabapentin 100 MG CAPSULE PO ×2 (07:48→20:21)
[2023-10-30] MEDS: Midodrine HCl 5 MG TABLET PO ×3 (07:48→20:21)
[2023-10-30] MEDS: ARIPiprazole 5 MG TABLET 2.5 MG PO (07:48)
[2023-10-30] MEDS: Apixaban 5 MG TABLET PO ×2 (07:48→20:21)
[2023-10-30 07:51] LABS: Glucose, Whole Blood 90 mg/dL (60-115)
--- NOTE | 2023-10-30 10:15 | HO.PM.IMPN ---
Subjective Subjective Date of Service: 10/30/23 Interval History: Being followed for placement. Patient requesting for regular diet, since have less choices and chopped diet, previously patient declined regular diet trial with speech therapist, denies coughing choking with feedings. Offers no other acute medical complaints. Review of Systems All other systems are reviewed and are negative Physical Exam Vital Signs: Vital Signs: Last Vital Signs Temp 98.4 F 10/30/23 07:15 Pulse 101 H 10/30/23 07:15 Resp 18 10/30/23 07:15 BP 110/60 10/30/23 07:21 Pulse Ox 96 10/30/23 07:15 O2 Del Method Room Air 10/30/23 07:15 O2 Flow Rate 2 09/17/23 12:00 BMI result Body Mass Index 49.2 Const: Other: General awake alert in no distress anicteric sclera Neck no JVD. CVS regular rate rhythm, Respiratory lungs clear to auscultation, no respiratory distress, no wheeze, no rhonchi. Gastrointestinal abdomen soft, non tender, bowel sounds audible. Extremities no edema. Neuro non focal, speech clear. Skin no rash Psych appropriate affect Objective Data Active Medications Acetaminophen (Acetaminophen 325 Mg Tablet) 650 mg PO Q6H PRN PRN Reason: Pain, Mild (Pain Scale 1-3) Last Admin: 10/29/23 21:32 Dose: 650 mg Documented By: LAURYN Apixaban (Apixaban 5 Mg Tablet) 5 mg PO BID [facility] Stop: 02/25/25 21:01 Last Admin: 10/30/23 07:48 Dose: 5 mg Documented By: CHUY Aripiprazole (Aripiprazole 5 Mg Tablet) 2.5 mg PO DAILY [facility] Last Admin: 10/30/23 07:48 Dose: 2.5 mg Documented By: CHUY Calcium Carbonate (Calcium Carbonate 750 Mg Tab.Chew) 750 mg PO Q6H PRN PRN Reason: Heartburn Last Admin: 10/06/23 20:43 Dose: 750 mg Documented By: KASI Fludrocortisone Acetate (Fludrocortisone Acetate 0.1 Mg Tablet) 0.1 mg PO DAILY [facility] Last Admin: 10/30/23 07:47 Dose: 0.1 mg Documented By: CHUY Gabapentin (Gabapentin 100 Mg Capsule) 100 mg PO BID [facility] Last Admin: 10/30/23 07:48 Dose: 100 mg Documented By: CHUY Glucose (Glucose Gel 15 Gm Gel..Gram.) 15 gm PO Q15M PRN; Protocol PRN Reason: per Hypoglycemia Standing Ord. Dextrose (D10) 250 mls @ 750 mls/hr IV Q15M PRN; Protocol PRN Reason: per Hypoglycemia Standing Ord. Midodrine (Midodrine Hcl 5 Mg Tablet) 5 mg PO TID [facility] Last Admin: 10/30/23 07:48 Dose: 5 mg Documented By: CHUY Multi-Ingred Cream/Lotion/Oil/Oint (Mineral Oil/Petrolatum,White 106 Gm Tube) 1 appl TOPICAL BID [facility]; Protocol Last Admin: 10/30/23 07:40 Dose: Not Given Documented By: CHUY Non-Admin Reason: Patient Refused Ondansetron HCl (Ondansetron Odt 4 Mg Tab.Rapdis) 4 mg TRANSLINGU Q6H PRN PRN Reason: Nausea and Vomiting Last Admin: 10/27/23 20:01 Dose: 4 mg Documented By: HERMELINDO Polyethylene Glycol (Polyethylene Glycol 3350 17 Gm Powd.Pack) 17 gm PO DAILY [facility] Last Admin: 10/30/23 07:40 Dose: Not Given Documented By: CHUY Non-Admin Reason: Patient Refused Sertraline HCl (Sertraline Hcl 25 Mg Tablet) 12.5 mg PO BEDTIME [facility] Last Admin: 10/29/23 21:24 Dose: 12.5 mg Documented By: LAURYN Sodium Bicarbonate (Sodium Bicarbonate 650 Mg Tablet) 650 mg PO BID [facility] Last Admin: 10/30/23 07:47 Dose: 650 mg Documented By: CHUY Trazodone HCl (Trazodone Hcl 25 Mg Halftab) 25 mg PO BEDTIME [facility] Last Admin: 10/29/23 21:24 Dose: 25 mg Documented By: LAURYN Labs 10/14/23 05:53 10/27/23 05:45 Labs: Laboratory Results - last 24 hr 10/29/23 10/30/23 21:35 07:32 POC Glucose 85 90 Assessment and Plan (1) Acute DVT (deep venous thrombosis): Status: Acute (2) Major depression, recurrent: Status: Acute Plan 53 years old male with PMH of DM2, HTN, Asthma who presented to ED After sustaining a fall and laying on the floor for 9 hours found to have severe acute kidney injury from rhabdomyolysis and hyperkalemia Acute on chronic DVT in right common femoral vein eliquis 5 bid VQ scan nondiagnostic. Sinus tachycardia baseline Acute diarrhea. Resolved gi panel negative cdif colonization but given acute diarrhea, s/p 10 day course of oral vancomycin CHITO and severe hyperkalemia and acute metabolic acidosis due to ATN from rhabdomyolysis started on HD. Resolved permacath placed 07/16/23, underwent catheter change 09/28 on midodrine 5 mg t.i.d. and Florinef 0.1 mg daily now with renal recovery - permcath removed 10/13. renal function remains stable continue po sodium bicarb hypokalemia- resolved Chronic Leg and back pain Stable, continue gabapentin 100mg BID dysphagia Will transition to regular diet and monitor closely. Depression. unspecified No behavioral issues seen by psychiatry 08/23 on Abilify 2.5 mg daily low-dose since it can cause orthostasis, trazodone 25 mg at bedtime and Zoloft 12.5 mg low-dose . tolerating current medications Acute?Rhabdomyolysis /Fall resolved with volume participating with physical therapy Diabetes type 2 stable blood sugars, last hemoglobin A1c 6.1 follow bs bid Morbid Obesity. BMI 49.2 Discussed importance of weight management as this may be contributing to worsening of other comorbidities dvt ppx - eliquis Full code reason for continued hospitalization: debilitated; safe discharge to home , major case detective arranging for safe disposition Quality Stroke Does the patient have a stroke diagnosis?: No VTE Prior VTE?: No VTE Risk Level:: Medical - moderate - high VTE Device Contraindication: N/A - Device Ordered VTE Drug Contraindication: N/A - Med Ordered
[2023-10-30 15:35] VITALS: BP 122/85; PULSE 98; RESP 20; TEMP 36.3; O2SAT 98
[2023-10-30 19:23] VITALS: BP 130/72; PULSE 101; RESP 18; TEMP 36.8; O2SAT 98
[2023-10-30 20:20] VITALS: BP 110/64; PULSE 100
[2023-10-30] MEDS: Sertraline HCL 25 MG TABLET 12.5 MG PO (20:21)
[2023-10-30] MEDS: traZODone HCL 25 MG HALFTAB PO (20:21)
[2023-10-30] MEDS: Acetaminophen 325 MG TABLET 650 MG PO (20:22)
[2023-10-30 22:09] LABS: Glucose, Whole Blood 131 mg/dL (60-115)
[2023-10-31 03:26] VITALS: BP 105/60; PULSE 94; RESP 18; TEMP 36.4; O2SAT 96
[2023-10-31 07:19] VITALS: BP 99/67; PULSE 106; RESP 18; TEMP 36.2; O2SAT 97
[2023-10-31 07:29] LABS: Glucose, Whole Blood 100 mg/dL (60-115)
[2023-10-31] MEDS: Gabapentin 100 MG CAPSULE PO ×2 (08:14→20:53)
[2023-10-31] MEDS: Midodrine HCl 5 MG TABLET PO ×3 (08:14→20:53)
[2023-10-31] MEDS: Fludrocortisone Acetate 0.1 MG TABLET PO (08:14)
[2023-10-31] MEDS: ARIPiprazole 5 MG TABLET 2.5 MG PO (08:14)
[2023-10-31] MEDS: Apixaban 5 MG TABLET PO ×2 (08:14→20:52)
[2023-10-31] MEDS: Sodium Bicarbonate 650 MG TABLET PO ×2 (08:14→20:53)
--- NOTE | 2023-10-31 10:57 | P.PNIM_ITS ---
Subjective Subjective Date of Service: 10/31/23 Interval History: Being followed for placement. Offers no acute complaints, placed on regular diet, tolerating well, blood sugars stable. Review of Systems All other system reviewed and are negative. Physical Exam 2 Vital Signs: Vital Signs: Last Vital Signs Temp 97.2 F 10/31/23 07:19 Pulse 106 H 10/31/23 07:19 Resp 18 10/31/23 07:19 BP 99/67 10/31/23 07:19 Pulse Ox 97 10/31/23 07:19 O2 Del Method Room Air 10/31/23 07:19 O2 Flow Rate 2 09/17/23 12:00 BMI result Body Mass Index 49.2 Const: Other: General awake alert, in no distress anicteric sclera Neck no JVD. CVS regular rate rhythm, Respiratory lungs clear to auscultation, no respiratory distress, no wheeze, no rhonchi. Gastrointestinal abdomen soft, non tender, bowel sounds audible. Extremities no edema. Neuro non focal, speech clear. Decreased range of motion right shoulder Skin no rash Psych appropriate affect Objective Data Active Medications Acetaminophen (Acetaminophen 325 Mg Tablet) 650 mg PO Q6H PRN PRN Reason: Pain, Mild (Pain Scale 1-3) Last Admin: 10/30/23 20:22 Dose: 650 mg Documented By: LAURYN Apixaban (Apixaban 5 Mg Tablet) 5 mg PO BID [facility] Stop: 02/25/25 21:01 Last Admin: 10/31/23 08:14 Dose: 5 mg Documented By: CHUY Aripiprazole (Aripiprazole 5 Mg Tablet) 2.5 mg PO DAILY [facility] Last Admin: 10/31/23 08:14 Dose: 2.5 mg Documented By: CHUY Calcium Carbonate (Calcium Carbonate 750 Mg Tab.Chew) 750 mg PO Q6H PRN PRN Reason: Heartburn Last Admin: 10/06/23 20:43 Dose: 750 mg Documented By: KASI Fludrocortisone Acetate (Fludrocortisone Acetate 0.1 Mg Tablet) 0.1 mg PO DAILY [facility] Last Admin: 10/31/23 08:14 Dose: 0.1 mg Documented By: CHUY Gabapentin (Gabapentin 100 Mg Capsule) 100 mg PO BID [facility] Last Admin: 10/31/23 08:14 Dose: 100 mg Documented By: CHUY Glucose (Glucose Gel 15 Gm Gel..Gram.) 15 gm PO Q15M PRN; Protocol PRN Reason: per Hypoglycemia Standing Ord. Dextrose (D10) 250 mls @ 750 mls/hr IV Q15M PRN; Protocol PRN Reason: per Hypoglycemia Standing Ord. Midodrine (Midodrine Hcl 5 Mg Tablet) 5 mg PO TID [facility] Last Admin: 10/31/23 08:14 Dose: 5 mg Documented By: CHUY Multi-Ingred Cream/Lotion/Oil/Oint (Mineral Oil/Petrolatum,White 106 Gm Tube) 1 appl TOPICAL BID [facility]; Protocol Last Admin: 10/31/23 08:15 Dose: Not Given Documented By: CHUY Non-Admin Reason: Patient Refused Ondansetron HCl (Ondansetron Odt 4 Mg Tab.Rapdis) 4 mg TRANSLINGU Q6H PRN PRN Reason: Nausea and Vomiting Last Admin: 10/27/23 20:01 Dose: 4 mg Documented By: HERMELINDO Polyethylene Glycol (Polyethylene Glycol 3350 17 Gm Powd.Pack) 17 gm PO DAILY [facility] Last Admin: 10/31/23 08:15 Dose: Not Given Documented By: CHUY Non-Admin Reason: Patient Refused Sertraline HCl (Sertraline Hcl 25 Mg Tablet) 12.5 mg PO BEDTIME [facility] Last Admin: 10/30/23 20:21 Dose: 12.5 mg Documented By: LAURYN Sodium Bicarbonate (Sodium Bicarbonate 650 Mg Tablet) 650 mg PO BID [facility] Last Admin: 10/31/23 08:14 Dose: 650 mg Documented By: CHUY Trazodone HCl (Trazodone Hcl 25 Mg Halftab) 25 mg PO BEDTIME [facility] Last Admin: 10/30/23 20:21 Dose: 25 mg Documented By: LAURYN Labs 10/14/23 05:53 10/27/23 05:45 Labs: Laboratory Results - last 24 hr 10/30/23 10/31/23 22:06 07:13 POC Glucose 131 H 100 Assessment and Plan (1) Acute DVT (deep venous thrombosis): Status: Acute (2) Hypotension: Status: Acute Plan 53 years old male with PMH of DM2, HTN, Asthma who presented to ED After sustaining a fall and laying on the floor for 9 hours found to have severe acute kidney injury from rhabdomyolysis and hyperkalemia Acute on chronic DVT in right common femoral vein eliquis 5 bid VQ scan nondiagnostic. Sinus tachycardia baseline Acute diarrhea. Resolved gi panel negative cdif colonization but given acute diarrhea, s/p 10 day course of oral vancomycin CHITO and severe hyperkalemia and acute metabolic acidosis due to ATN from rhabdomyolysis started on HD. Resolved permacath placed 07/16/23, underwent catheter change 09/28 on midodrine 5 mg t.i.d. and Florinef 0.1 mg daily now with renal recovery - permcath removed 10/13. renal function remains stable continue po sodium bicarb hypokalemia- resolved Chronic Leg and back pain Stable, continue gabapentin 100mg BID dysphagia tolerating regular diet,monitor closely. Depression. unspecified No behavioral issues seen by psychiatry 08/23 on Abilify 2.5 mg daily low-dose since it can cause orthostasis, trazodone 25 mg at bedtime and Zoloft 12.5 mg low-dose . tolerating current medications Acute?Rhabdomyolysis /Fall resolved with volume participating with physical therapy Diabetes type 2 stable blood sugars, last hemoglobin A1c 6.1 follow bs daily Morbid Obesity. BMI 49.2 Discussed importance of weight management as this may be contributing to worsening of other comorbidities dvt ppx - eliquis Full code reason for continued hospitalization: debilitated; safe discharge to home , case management assistant arranging for safe disposition Quality Stroke Does the patient have a stroke diagnosis?: No VTE Prior VTE?: No VTE Risk Level:: Medical - moderate - high VTE Device Contraindication: N/A - Device Ordered VTE Drug Contraindication: N/A - Med Ordered
[2023-10-31 11:14] LABS: Glucose, Whole Blood 130 mg/dL (60-115)
[2023-10-31 15:20] VITALS: BP 112/58; PULSE 98; RESP 18; TEMP 36.3; O2SAT 97
[2023-10-31 19:28] VITALS: BP 116/70; PULSE 99; RESP 17; TEMP 36.6; O2SAT 97
[2023-10-31] MEDS: traZODone HCL 25 MG HALFTAB PO (20:52)
[2023-10-31] MEDS: Sertraline HCL 25 MG TABLET 12.5 MG PO (20:53)
[2023-10-31] MEDS: Acetaminophen 325 MG TABLET 650 MG PO (20:53)
[2023-11-01 03:11] VITALS: BP 109/70; PULSE 101; RESP 18; TEMP 36.9; O2SAT 97
[2023-11-01 08:00] VITALS: BP 112/66; PULSE 100; RESP 14; TEMP 36.9; O2SAT 97
[2023-11-01 08:05] LABS: Glucose, Whole Blood 129 mg/dL (60-115)
--- NOTE | 2023-11-01 08:07 | P.PNIM_ITS ---
Subjective Subjective Date of Service: 11/01/23 Interval History: Being followed for placement. Offers no acute complaints, placed on regular diet, tolerating well, blood sugars stable. Review of Systems All other system reviewed and are negative. Physical Exam 2 Vital Signs: Vital Signs: Last Vital Signs Temp 98.4 F 11/01/23 03:11 Pulse 101 H 11/01/23 03:11 Resp 18 11/01/23 03:11 BP 109/70 11/01/23 03:11 Pulse Ox 97 11/01/23 03:11 O2 Del Method Room Air 11/01/23 03:11 O2 Flow Rate 2 09/17/23 12:00 BMI result Body Mass Index 49.2 Appearing in no acute distress lung sounds are clear to auscultation heart regular rate rhythm, clear S1, S2 positive bowel sounds, abdomen is soft, nontender neuro patient is alert x3, no focal deficits Objective Data Active Medications Acetaminophen (Acetaminophen 325 Mg Tablet) 650 mg PO Q6H PRN PRN Reason: Pain, Mild (Pain Scale 1-3) Last Admin: 10/31/23 20:53 Dose: 650 mg Documented By: LAURYN Apixaban (Apixaban 5 Mg Tablet) 5 mg PO BID [facility] Stop: 02/25/25 21:01 Last Admin: 10/31/23 20:52 Dose: 5 mg Documented By: LAURYN Aripiprazole (Aripiprazole 5 Mg Tablet) 2.5 mg PO DAILY [facility] Last Admin: 10/31/23 08:14 Dose: 2.5 mg Documented By: CHUY Calcium Carbonate (Calcium Carbonate 750 Mg Tab.Chew) 750 mg PO Q6H PRN PRN Reason: Heartburn Last Admin: 10/06/23 20:43 Dose: 750 mg Documented By: KASI Fludrocortisone Acetate (Fludrocortisone Acetate 0.1 Mg Tablet) 0.1 mg PO DAILY [facility] Last Admin: 10/31/23 08:14 Dose: 0.1 mg Documented By: CHUY Gabapentin (Gabapentin 100 Mg Capsule) 100 mg PO BID [facility] Last Admin: 10/31/23 20:53 Dose: 100 mg Documented By: LAURYN Glucose (Glucose Gel 15 Gm Gel..Gram.) 15 gm PO Q15M PRN; Protocol PRN Reason: per Hypoglycemia Standing Ord. Dextrose (D10) 250 mls @ 750 mls/hr IV Q15M PRN; Protocol PRN Reason: per Hypoglycemia Standing Ord. Midodrine (Midodrine Hcl 5 Mg Tablet) 5 mg PO TID [facility] Last Admin: 10/31/23 20:53 Dose: 5 mg Documented By: LAURYN Comments: BP 116/70 Multi-Ingred Cream/Lotion/Oil/Oint (Mineral Oil/Petrolatum,White 106 Gm Tube) 1 appl TOPICAL BID [facility]; Protocol Last Admin: 10/31/23 22:11 Dose: Not Given Documented By: LAURYN Non-Admin Reason: Patient Refused Ondansetron HCl (Ondansetron Odt 4 Mg Tab.Rapdis) 4 mg TRANSLINGU Q6H PRN PRN Reason: Nausea and Vomiting Last Admin: 10/27/23 20:01 Dose: 4 mg Documented By: HERMELINDO Polyethylene Glycol (Polyethylene Glycol 3350 17 Gm Powd.Pack) 17 gm PO DAILY [facility] Last Admin: 10/31/23 08:15 Dose: Not Given Documented By: CHUY Non-Admin Reason: Patient Refused Sertraline HCl (Sertraline Hcl 25 Mg Tablet) 12.5 mg PO BEDTIME [facility] Last Admin: 10/31/23 20:53 Dose: 12.5 mg Documented By: LAURYN Sodium Bicarbonate (Sodium Bicarbonate 650 Mg Tablet) 650 mg PO BID [facility] Last Admin: 10/31/23 20:53 Dose: 650 mg Documented By: LAURYN Trazodone HCl (Trazodone Hcl 25 Mg Halftab) 25 mg PO BEDTIME [facility] Last Admin: 10/31/23 20:52 Dose: 25 mg Documented By: LAURYN Labs 10/14/23 05:53 10/27/23 05:45 Labs: Laboratory Results - last 24 hr 10/31/23 11/01/23 11:08 07:55 POC Glucose 130 H 129 H Assessment and Plan (1) Acute DVT (deep venous thrombosis): Status: Acute (2) Hypotension: Status: Acute Plan 53 years old male with PMH of DM2, HTN, Asthma who presented to ED After sustaining a fall and laying on the floor for 9 hours found to have severe acute kidney injury from rhabdomyolysis and hyperkalemia Acute on chronic DVT in right common femoral vein cierra 5 bid VQ scan nondiagnostic. Sinus tachycardia baseline Acute diarrhea. Resolved gi panel negative cdif colonization but given acute diarrhea, s/p 10 day course of oral vancomycin CHITO and severe hyperkalemia and acute metabolic acidosis due to ATN from rhabdomyolysis started on HD. Resolved permacath placed 07/16/23, underwent catheter change 09/28 on midodrine 5 mg t.i.d. and Florinef 0.1 mg daily now with renal recovery - permcath removed 10/13. renal function remains stable continue po sodium bicarb hypokalemia- resolved Chronic Leg and back pain Stable, continue gabapentin 100mg BID dysphagia tolerating regular diet,monitor closely. Depression. unspecified No behavioral issues seen by psychiatry 08/23 on Abilify 2.5 mg daily low-dose since it can cause orthostasis, trazodone 25 mg at bedtime and Zoloft 12.5 mg low-dose . tolerating current medications Acute?Rhabdomyolysis /Fall resolved with volume participating with physical therapy Diabetes type 2 stable blood sugars, last hemoglobin A1c 6.1 follow bs daily Morbid Obesity. BMI 49.2 Discussed importance of weight management as this may be contributing to worsening of other comorbidities dvt ppx - eliquis Full code reason for continued hospitalization: debilitated; safe discharge to home , immigration case manager arranging for safe disposition Quality Stroke Does the patient have a stroke diagnosis?: No VTE Prior VTE?: No VTE Risk Level:: Medical - moderate - high VTE Device Contraindication: N/A - Device Ordered VTE Drug Contraindication: N/A - Med Ordered
[2023-11-01] MEDS: Midodrine HCl 5 MG TABLET PO ×3 (10:20→20:39)
[2023-11-01] MEDS: ARIPiprazole 5 MG TABLET 2.5 MG PO (10:20)
[2023-11-01] MEDS: Sodium Bicarbonate 650 MG TABLET PO ×2 (10:20→20:39)
[2023-11-01] MEDS: Gabapentin 100 MG CAPSULE PO ×2 (10:20→20:39)
[2023-11-01] MEDS: Apixaban 5 MG TABLET PO ×2 (10:20→20:39)
[2023-11-01] MEDS: Fludrocortisone Acetate 0.1 MG TABLET PO (10:20)
[2023-11-01] MEDS: Acetaminophen 325 MG TABLET 650 MG PO ×2 (10:24→20:39)
--- NOTE | 2023-11-01 15:23 | MHC.CM.PN ---
PER ROUNDS WAITING ON [facility] WHO WILL MEET WITH PT THIS WEEK TO CONVERT [facility] ?JESÚS
[2023-11-01 15:47] VITALS: BP 110/83; PULSE 88; RESP 16; TEMP 37.1; O2SAT 98
[2023-11-01 19:49] VITALS: BP 130/82; PULSE 95; RESP 18; TEMP 36.8; O2SAT 97
[2023-11-01] MEDS: Sertraline HCL 25 MG TABLET 12.5 MG PO (20:39)
[2023-11-01] MEDS: traZODone HCL 25 MG HALFTAB PO (20:39)
[2023-11-02 04:00] VITALS: BP 127/85; PULSE 99; RESP 16; TEMP 36.2; O2SAT 96
[2023-11-02 07:19] VITALS: BP 130/79; PULSE 105; RESP 18; TEMP 36.9; O2SAT 96
--- NOTE | 2023-11-02 07:20 | HO.PM.IMPN ---
Subjective Subjective Date of Service: 11/02/23 Interval History: Being followed for placement. Offers no acute complaints, placed on regular diet, tolerating well, blood sugars stable. Review of Systems All other system reviewed and are negative. Physical Exam Vital Signs: Vital Signs: Last Vital Signs Temp 98.4 F 11/02/23 07:19 Pulse 105 H 11/02/23 07:19 Resp 18 11/02/23 07:19 BP 130/79 11/02/23 07:19 Pulse Ox 96 11/02/23 07:19 O2 Del Method Room Air 11/02/23 07:19 O2 Flow Rate 2 09/17/23 12:00 BMI result Body Mass Index 49.2 alert and oriented Objective Data Active Medications Acetaminophen (Acetaminophen 325 Mg Tablet) 650 mg PO Q6H PRN PRN Reason: Pain, Mild (Pain Scale 1-3) Last Admin: 11/01/23 20:39 Dose: 650 mg Documented By: RICARDO Apixaban (Apixaban 5 Mg Tablet) 5 mg PO BID [facility] Stop: 02/25/25 21:01 Last Admin: 11/01/23 20:39 Dose: 5 mg Documented By: RICARDO Aripiprazole (Aripiprazole 5 Mg Tablet) 2.5 mg PO DAILY [facility] Last Admin: 11/01/23 10:20 Dose: 2.5 mg Documented By: OPHELIA Calcium Carbonate (Calcium Carbonate 750 Mg Tab.Chew) 750 mg PO Q6H PRN PRN Reason: Heartburn Last Admin: 10/06/23 20:43 Dose: 750 mg Documented By: KASI Fludrocortisone Acetate (Fludrocortisone Acetate 0.1 Mg Tablet) 0.1 mg PO DAILY [facility] Last Admin: 11/01/23 10:20 Dose: 0.1 mg Documented By: OPHELIA Gabapentin (Gabapentin 100 Mg Capsule) 100 mg PO BID [facility] Last Admin: 11/01/23 20:39 Dose: 100 mg Documented By: RICARDO Glucose (Glucose Gel 15 Gm Gel..Gram.) 15 gm PO Q15M PRN; Protocol PRN Reason: per Hypoglycemia Standing Ord. Dextrose (D10) 250 mls @ 750 mls/hr IV Q15M PRN; Protocol PRN Reason: per Hypoglycemia Standing Ord. Midodrine (Midodrine Hcl 5 Mg Tablet) 5 mg PO TID [facility] Last Admin: 11/01/23 20:39 Dose: 5 mg Documented By: RICARDO Multi-Ingred Cream/Lotion/Oil/Oint (Mineral Oil/Petrolatum,White 106 Gm Tube) 1 appl TOPICAL BID [facility]; Protocol Last Admin: 11/01/23 20:42 Dose: Not Given Documented By: RICARDO Non-Admin Reason: Patient Refused Ondansetron HCl (Ondansetron Odt 4 Mg Tab.Rapdis) 4 mg TRANSLINGU Q6H PRN PRN Reason: Nausea and Vomiting Last Admin: 10/27/23 20:01 Dose: 4 mg Documented By: HERMELINDO Polyethylene Glycol (Polyethylene Glycol 3350 17 Gm Powd.Pack) 17 gm PO DAILY [facility] Last Admin: 11/01/23 10:21 Dose: Not Given Documented By: OPHELIA Non-Admin Reason: Patient Refused Sertraline HCl (Sertraline Hcl 25 Mg Tablet) 12.5 mg PO BEDTIME [facility] Last Admin: 11/01/23 20:39 Dose: 12.5 mg Documented By: RICARDO Sodium Bicarbonate (Sodium Bicarbonate 650 Mg Tablet) 650 mg PO BID [facility] Last Admin: 11/01/23 20:39 Dose: 650 mg Documented By: RICARDO Trazodone HCl (Trazodone Hcl 25 Mg Halftab) 25 mg PO BEDTIME [facility] Last Admin: 11/01/23 20:39 Dose: 25 mg Documented By: RICARDO Labs 11/02/23 09:19 11/02/23 09:19 Labs: Laboratory Results - last 24 hr 11/01/23 07:55 POC Glucose 129 H Assessment and Plan (1) Acute DVT (deep venous thrombosis): Status: Acute (2) Hypotension: Status: Acute Plan 53 years old male with PMH of DM2, HTN, Asthma who presented to ED After sustaining a fall and laying on the floor for 9 hours found to have severe acute kidney injury from rhabdomyolysis and hyperkalemia Acute on chronic DVT in right common femoral vein eliquis 5 bid VQ scan nondiagnostic. Sinus tachycardia baseline Acute diarrhea. Resolved gi panel negative cdif colonization but given acute diarrhea, s/p 10 day course of oral vancomycin CHITO and severe hyperkalemia and acute metabolic acidosis due to ATN from rhabdomyolysis started on HD. Resolved permacath placed 07/16/23, underwent catheter change 09/28 on midodrine 5 mg t.i.d. and Florinef 0.1 mg daily now with renal recovery - permcath removed 10/13. renal function remains stable continue po sodium bicarb hypokalemia- resolved Chronic Leg and back pain Stable, continue gabapentin 100mg BID dysphagia tolerating regular diet,monitor closely. Depression. unspecified No behavioral issues seen by psychiatry 08/23 on Abilify 2.5 mg daily low-dose since it can cause orthostasis, trazodone 25 mg at bedtime and Zoloft 12.5 mg low-dose . tolerating current medications Acute?Rhabdomyolysis /Fall resolved with volume participating with physical therapy Diabetes type 2 stable blood sugars, last hemoglobin A1c 6.1 follow bs daily Morbid Obesity. BMI 49.2 Discussed importance of weight management as this may be contributing to worsening of other comorbidities dvt ppx - eliquis Full code Labs 11/02/23 WNL reason for continued hospitalization: debilitated; safe discharge to home , rn field case manager arranging for safe disposition Quality Stroke Does the patient have a stroke diagnosis?: No VTE Prior VTE?: No VTE Risk Level:: Medical - moderate - high VTE Device Contraindication: N/A - Device Ordered VTE Drug Contraindication: N/A - Med Ordered
[2023-11-02 07:31] LABS: Glucose, Whole Blood 85 mg/dL (60-115)
[2023-11-02] MEDS: Sodium Bicarbonate 650 MG TABLET PO ×2 (08:44→19:59)
[2023-11-02] MEDS: Gabapentin 100 MG CAPSULE PO ×2 (08:44→19:59)
[2023-11-02] MEDS: ARIPiprazole 5 MG TABLET 2.5 MG PO (08:45)
[2023-11-02] MEDS: Apixaban 5 MG TABLET PO ×2 (08:45→19:59)
[2023-11-02] MEDS: Fludrocortisone Acetate 0.1 MG TABLET PO (08:45)
[2023-11-02] MEDS: Acetaminophen 325 MG TABLET 650 MG PO ×2 (09:12→19:59)
[2023-11-02 09:26] LABS: Hematocrit 28.8 % (42.0-52.0); Mean Corpuscular HGB Conc 31.3 g/dl (31.0-36.0); Mean Corpuscular Hemoglobin 30.6 pg (27.0-33.0); Mean Platelet Volume 8.1 fL (9.4-12.4); Platelet Count 396 X10*3/uL (160-400); Red Blood Count 2.94 X10*6/uL (4.60-5.80); White Blood Count 6.8 X10*3/uL (4.8-10.8)
[2023-11-02 09:45] LABS: Anion Gap 11 (12-20); Blood Urea Nitrogen 21 mg/dL (9-16); Calcium 9.4 mg/dL (8.4-10.2); Carbon Dioxide 25 mmol/L (22-29); Chloride 109 mmol/L (96-108); Creatinine Clr Calc Pharmacy 59.5; Estimated Glomerular Filt Rate 34; Glucose Random 124 mg/dL (60-115); Potassium 3.9 mmol/L (3.3-5.1); Sodium 141 mmol/L (135-145)
[2023-11-02 09:52] LABS: Parathyroid Hormone Intact 62.4 pg/mL (8.7-77.1)
[2023-11-02 12:04] LABS: Glucose, Whole Blood 83 mg/dL (60-115)
[2023-11-02 15:16] VITALS: BP 106/69; PULSE 107; RESP 16; TEMP 36.9; O2SAT 97
--- NOTE | 2023-11-02 15:18 | MHC.CM.PN ---
CM MET WITH PT WHO IS AWARE AN APPLICATION WILL NEED TO BE COMPLETED TO [facility] TO A [facility] PLAN FOR MORE HOME SERVICES. CM WILL F/U WITH [facility] LIAISON TO BEGIN THIS PROCESS. CM WILL CONTINUE TO FOLLOW
[2023-11-02 15:52] VITALS: BP 106/69
[2023-11-02] MEDS: Midodrine HCl 5 MG TABLET PO ×2 (15:52→19:59)
[2023-11-02 19:43] VITALS: BP 137/81; PULSE 98; RESP 16; TEMP 36.8; O2SAT 98
[2023-11-02] MEDS: traZODone HCL 25 MG HALFTAB PO (19:59)
[2023-11-02] MEDS: Sertraline HCL 25 MG TABLET 12.5 MG PO (20:00)
[2023-11-03 02:58] VITALS: BP 123/79; PULSE 99; RESP 16; TEMP 36.2; O2SAT 98
[2023-11-03 07:23] LABS: Hemoglobin 8.4 g/dl (14.0-18.0); Mean Corpuscular HGB Conc 32.3 g/dl (31.0-36.0); Mean Corpuscular Hemoglobin 31.2 pg (27.0-33.0); Mean Corpuscular Volume 96.7 fL (80.0-98.0); Mean Platelet Volume 8.8 fL (9.4-12.4); Platelet Count 460 X10*3/uL (160-400); Red Blood Count 2.69 X10*6/uL (4.60-5.80); White Blood Count 5.8 X10*3/uL (4.8-10.8)
[2023-11-03 07:35] LABS: Anion Gap 13 (12-20); Blood Urea Nitrogen 21 mg/dL (9-16); Calcium 9.3 mg/dL (8.4-10.2); Carbon Dioxide 25 mmol/L (22-29); Chloride 109 mmol/L (96-108); Glucose Random 88 mg/dL (60-115); Phosphorus 3.6 mg/dL (2.7-4.5); Potassium 3.6 mmol/L (3.3-5.1); Sodium 143 mmol/L (135-145)
[2023-11-03 07:51] LABS: Creatinine Clr Calc Pharmacy 56.7; Estimated Glomerular Filt Rate 32
[2023-11-03 07:54] LABS: Glucose, Whole Blood 88 mg/dL (60-115)
[2023-11-03 07:56] VITALS: BP 132/83; PULSE 79; RESP 12; TEMP 36.9; O2SAT 98
[2023-11-03] MEDS: ARIPiprazole 5 MG TABLET 2.5 MG PO (08:58)
[2023-11-03] MEDS: Apixaban 5 MG TABLET PO ×2 (08:58→20:21)
[2023-11-03] MEDS: Sodium Bicarbonate 650 MG TABLET PO ×2 (08:59→20:21)
[2023-11-03] MEDS: Gabapentin 100 MG CAPSULE PO ×2 (08:59→20:22)
[2023-11-03] MEDS: Fludrocortisone Acetate 0.1 MG TABLET PO (08:59)
[2023-11-03] MEDS: Acetaminophen 325 MG TABLET 650 MG PO (10:26)
--- NOTE | 2023-11-03 10:45 | HO.PM.IMPN ---
Subjective Subjective Date of Service: 11/03/23 Interval History: Being followed for placement Offers no acute complaints. Review of Systems All other system reviewed and are negative Physical Exam Vital Signs: Vital Signs: Last Vital Signs Temp 98.5 F 11/03/23 07:56 Pulse 79 11/03/23 07:56 Resp 12 11/03/23 07:56 BP 132/83 11/03/23 07:56 Pulse Ox 98 11/03/23 07:56 O2 Del Method Room Air 11/03/23 07:56 O2 Flow Rate 2 09/17/23 12:00 BMI result Body Mass Index 49.2 Const: Other: General awake alert, in no distress anicteric sclera Neck no JVD. CVS regular rate rhythm, Respiratory lungs clear to auscultation, no respiratory distress, no wheeze, no rhonchi. Gastrointestinal abdomen soft, non tender, bowel sounds audible. Extremities no edema. Neuro non focal, speech clear. Decreased range of motion right shoulder Skin no rash Psych appropriate affect Objective Data Active Medications Acetaminophen (Acetaminophen 325 Mg Tablet) 650 mg PO Q6H PRN PRN Reason: Pain, Mild (Pain Scale 1-3) Last Admin: 11/03/23 10:26 Dose: 650 mg Documented By: LAVON Apixaban (Apixaban 5 Mg Tablet) 5 mg PO BID [facility] Stop: 02/25/25 21:01 Last Admin: 11/03/23 08:58 Dose: 5 mg Documented By: LAVON Aripiprazole (Aripiprazole 5 Mg Tablet) 2.5 mg PO DAILY [facility] Last Admin: 11/03/23 08:58 Dose: 2.5 mg Documented By: LAVON Calcium Carbonate (Calcium Carbonate 750 Mg Tab.Chew) 750 mg PO Q6H PRN PRN Reason: Heartburn Last Admin: 10/06/23 20:43 Dose: 750 mg Documented By: KASI Fludrocortisone Acetate (Fludrocortisone Acetate 0.1 Mg Tablet) 0.1 mg PO DAILY [facility] Last Admin: 11/03/23 08:59 Dose: 0.1 mg Documented By: LAVON Gabapentin (Gabapentin 100 Mg Capsule) 100 mg PO BID [facility] Last Admin: 11/03/23 08:59 Dose: 100 mg Documented By: LAVON Glucose (Glucose Gel 15 Gm Gel..Gram.) 15 gm PO Q15M PRN; Protocol PRN Reason: per Hypoglycemia Standing Ord. Dextrose (D10) 250 mls @ 750 mls/hr IV Q15M PRN; Protocol PRN Reason: per Hypoglycemia Standing Ord. Midodrine (Midodrine Hcl 5 Mg Tablet) 5 mg PO TID [facility] Last Admin: 11/03/23 10:02 Dose: Not Given Documented By: LAVON Non-Admin Reason: BP 132/83 Multi-Ingred Cream/Lotion/Oil/Oint (Mineral Oil/Petrolatum,White 106 Gm Tube) 1 appl TOPICAL BID [facility]; Protocol Last Admin: 11/03/23 08:59 Dose: Not Given Documented By: LAVON Non-Admin Reason: Patient Refused Ondansetron HCl (Ondansetron Odt 4 Mg Tab.Rapdis) 4 mg TRANSLINGU Q6H PRN PRN Reason: Nausea and Vomiting Last Admin: 10/27/23 20:01 Dose: 4 mg Documented By: HERMELINDO Polyethylene Glycol (Polyethylene Glycol 3350 17 Gm Powd.Pack) 17 gm PO DAILY [facility] Last Admin: 11/03/23 08:59 Dose: Not Given Documented By: LAVON Non-Admin Reason: Patient Refused Sertraline HCl (Sertraline Hcl 25 Mg Tablet) 12.5 mg PO BEDTIME [facility] Last Admin: 11/02/23 20:00 Dose: 12.5 mg Documented By: RICARDO Sodium Bicarbonate (Sodium Bicarbonate 650 Mg Tablet) 650 mg PO BID [facility] Last Admin: 11/03/23 08:59 Dose: 650 mg Documented By: LAVON Trazodone HCl (Trazodone Hcl 25 Mg Halftab) 25 mg PO BEDTIME [facility] Last Admin: 11/02/23 19:59 Dose: 25 mg Documented By: RICARDO Labs 11/03/23 05:08 11/03/23 05:08 Labs: Laboratory Results - last 24 hr 11/02/23 11/03/23 11/03/23 11:51 05:08 07:50 MCV 96.7 MCH 31.2 MCHC 32.3 RDW 14.0 Plt Count 460 H MPV 8.8 L Absolute Nucleated RBC 0.000 Nucleated RBC % (auto) 0.0 Anion Gap 13 Estim Creat Clear Calc 56.7 Estimated GFR 32 POC Glucose 83 88 Random Glucose 88 Calcium 9.3 Phosphorus 3.6 Assessment and Plan (1) Major depression, recurrent: Status: Acute Plan 53 years old male with PMH of DM2, HTN, Asthma who presented to ED After sustaining a fall and laying on the floor for 9 hours found to have severe acute kidney injury from rhabdomyolysis and hyperkalemia Acute on chronic DVT in right common femoral vein eliquis 5 bid VQ scan nondiagnostic. Chronic normocytic anemia, noted to have slight drop in hematocrit to 26, check stool guaiacs follow CBC, check iron studies B12 folate if normal then will consider Procrit for possible anemia of chronic disease due to kidney disease. Sinus tachycardia baseline Acute diarrhea. Resolved gi panel negative cdif colonization but given acute diarrhea, s/p 10 day course of oral vancomycin CHITO and severe hyperkalemia and acute metabolic acidosis due to ATN from rhabdomyolysis started on HD. Resolved permacath placed 07/16/23, underwent catheter change 09/28 on midodrine 5 mg t.i.d. and Florinef 0.1 mg daily now with renal recovery - permcath removed 10/13. Creatinine 2.15 11/02, remains unchanged continue po sodium bicarb hypokalemia- resolved Chronic Leg and back pain Stable, continue gabapentin 100mg BID dysphagia tolerating regular diet,monitor closely. Depression. unspecified No behavioral issues seen by psychiatry 08/23 on Abilify 2.5 mg daily low-dose since it can cause orthostasis, trazodone 25 mg at bedtime and Zoloft 12.5 mg low-dose . tolerating current medications Acute?Rhabdomyolysis /Fall resolved with volume participating with physical therapy Diabetes type 2 stable blood sugars, last hemoglobin A1c 6.1 follow bs daily Morbid Obesity. 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
--- NOTE | 2023-11-03 12:09 | MHC.CM.PN ---
Addendum entered by Marjorie Anotn 11/03/23 12:13: CLARICE SPOKE WITH [facility] REP FRANCISCA ([phone]) REGARDING PLAN, IS AWARE PT WILL SEEK A DUAL PLAN WHICH, IF PT CHOOSES, [facility] IS A CHOICE. Original Note: CLARICE SPOKE WITH HCP/[facility] [place] WITH PT'S PERMISSION. UPDATED ON CURRENT PLAN TO RETURN HOME AFTER APPLICATION FOR DUAL PLAN IS COMPLETED AND MORE HOME SUPPORT IS SET UP. [facility]ETENDERS UPDATED VIA [facility]. CM WILL CONTINUE TO FOLLOW AND ANTICIPATE [facility] TO ASSIST PT WITH APPLICATION ON 11/03
--- NOTE | 2023-11-03 14:11 | P.PNNP_ITS ---
Subjective Subjective Date of Service: 11/03/23 Principal diagnosis: CHITO Interval history: Being followed for placement. Examined this morning, pt denies acute changes or concerns. Reports he is urinating every few hours (urinal), 200-300mL each time Good appetite, eating well No events overnight. ongoing anemia, most recent H&H down to 8.4/ today creatinine has stabilized, most recent 2.15 today Physical Exam 2 Vital Signs: Vital Signs: Last Vital Signs Temp 98.5 F 11/03/23 07:56 Pulse 79 11/03/23 07:56 Resp 12 11/03/23 07:56 BP 132/83 11/03/23 07:56 Pulse Ox 98 11/03/23 07:56 O2 Del Method Room Air 11/03/23 07:56 O2 Flow Rate 2 09/17/23 12:00 BMI result Body Mass Index 49.2 Const: General: comfortable and no acute distress O rientation/consciousness: patient oriented x3 Neck: Neck: Yes supple Resp: Auscultation: clear to auscultation bilaterally Cardio: Jugular venous distension: no JVD Rate: regular rate Heart sounds: Murmur heart sound present GI: Palpation (GI): Soft to palpation Auscultation: normal bowel sounds : General: Yes no CVA tenderness Back/Spine/Pelvis: Back: no CVA tenderness Skin: General skin exam: no rashes or lesions noted Neuro: General: patient oriented x3 and moves all extremities Extrem: General: Yes no pedal edema Objective Data Labs 11/03/23 05:08 11/03/23 05:08 Labs: Laboratory Results - last 24 hr 11/03/23 11/03/23 05:08 07:50 WBC 5.8 RBC 2.69 L Hgb 8.4 L Hct 26.0 L MCV 96.7 MCH 31.2 MCHC 32.3 RDW 14.0 Plt Count 460 H MPV 8.8 L Absolute Nucleated RBC 0.000 Nucleated RBC % (auto) 0.0 Sodium 143 Potassium 3.6 Chloride 109 H Carbon Dioxide 25 Anion Gap 13 BUN 21 H Creatinine 2.15 H Estim Creat Clear Calc 56.7 Estimated GFR 32 POC Glucose 88 Random Glucose 88 Calcium 9.3 Phosphorus 3.6 Microbiology Microbiology Results: Microbiology 07/20/23 22:49 Blood - Venous Blood Culture - Final No growth after 5 days. 07/20/23 22:49 Blood - Venous Blood Culture - Final No growth after 5 days. 07/12/23 12:30 Blood - Venous Blood Culture - Final No growth after 5 days. 07/12/23 12:15 Blood - Venous Blood Culture - Final No growth after 5 days. 07/12/23 Unknown Urine Catheterized - Straight Catheter Urine Culture - Final No growth. 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 Recovering now, creatinine stabilizing (2.15 11/02). recommend decreasing midodrine 2.5 TID. Continue Flornief 0.1mg PO daily. Monitor blood pressures. Discontinue NaHCO3 PO 650mg BID (not d/c'd) May need a dose of Procrit [id number] U, should continue to monitor H&H, check iron, TBIC and ferritin levels C/W rest of current management Time Spent With Patient Time: Total time managing care of this patient today ____ minutes. Progress Note: Quality Stroke Does the patient have a stroke diagnosis?: No
[2023-11-03 16:11] VITALS: BP 120/82; PULSE 105; RESP 18; TEMP 37.3; O2SAT 97
[2023-11-03 17:51] LABS: OBS Int Ctl Valid YES; OBS1 NEGATIVE (NEGATIVE)
[2023-11-03 19:25] VITALS: BP 121/84; PULSE 103; RESP 18; TEMP 36.8; O2SAT 98
[2023-11-03] MEDS: traZODone HCL 25 MG HALFTAB PO (20:21)
[2023-11-03] MEDS: Sertraline HCL 25 MG TABLET 12.5 MG PO (20:21)
[2023-11-04 04:00] VITALS: BP 111/79; PULSE 99; RESP 14; TEMP 36.2; O2SAT 96
[2023-11-04 07:43] VITALS: BP 159/65; PULSE 108; RESP 18; TEMP 36.5; O2SAT 96
[2023-11-04 07:49] LABS: Glucose, Whole Blood 114 mg/dL (60-115)
[2023-11-04] MEDS: Fludrocortisone Acetate 0.1 MG TABLET PO (08:48)
[2023-11-04] MEDS: Apixaban 5 MG TABLET PO ×2 (08:48→21:12)
[2023-11-04] MEDS: Sodium Bicarbonate 650 MG TABLET PO ×2 (08:48→21:12)
[2023-11-04] MEDS: Gabapentin 100 MG CAPSULE PO ×2 (08:48→21:12)
[2023-11-04] MEDS: ARIPiprazole 5 MG TABLET 2.5 MG PO (08:48)
[2023-11-04] MEDS: Acetaminophen 325 MG TABLET 650 MG PO (08:52)
[2023-11-04 09:27] LABS: Iron 47 mcg/dL (45-160); Percent Iron Saturation 22 % (15-50); Total Iron Binding Capacity 209 mcg/dL (228-428); Unsaturated Iron Binding 162 ug/dL
[2023-11-04 09:42] LABS: Ferritin 406 ng/mL (20-250)
[2023-11-04 09:56] LABS: Vitamin B12 506 pg/mL (200-900)
--- NOTE | 2023-11-04 12:40 | P.PNIM_ITS ---
Subjective Subjective Date of Service: 11/04/23 Interval History: Being followed for placement Offers no acute complaints, ambulating with physical therapy doing right shoulder [id number] exercises, tolerating regular diet, blood sugars stable. Review of Systems All other system reviewed and are negative Physical Exam 2 Vital Signs: Vital Signs: Last Vital Signs Temp 97.7 F 11/04/23 07:43 Pulse 108 H 11/04/23 07:43 Resp 18 11/04/23 07:43 BP 159/65 H 11/04/23 07:43 Pulse Ox 96 11/04/23 07:43 O2 Del Method Room Air 11/04/23 07:43 O2 Flow Rate 2 09/17/23 12:00 BMI result Body Mass Index 49.2 Const: Other: General awake alert, in no distress anicteric sclera Neck no JVD. CVS regular rate rhythm, Respiratory lungs clear to auscultation, no respiratory distress, no wheeze, no rhonchi. Gastrointestinal abdomen soft, non tender, bowel sounds audible. Extremities no edema. Neuro non focal, speech clear. Decreased range of motion right shoulder Skin no rash Psych appropriate affect Objective Data Active Medications Acetaminophen (Acetaminophen 325 Mg Tablet) 650 mg PO Q6H PRN PRN Reason: Pain, Mild (Pain Scale 1-3) Last Admin: 11/04/23 08:52 Dose: 650 mg Documented By: BELLA Apixaban (Apixaban 5 Mg Tablet) 5 mg PO BID [facility] Stop: 02/25/25 21:01 Last Admin: 11/04/23 08:48 Dose: 5 mg Documented By: BELLA Aripiprazole (Aripiprazole 5 Mg Tablet) 2.5 mg PO DAILY [facility] Last Admin: 11/04/23 08:48 Dose: 2.5 mg Documented By: BELLA Calcium Carbonate (Calcium Carbonate 750 Mg Tab.Chew) 750 mg PO Q6H PRN PRN Reason: Heartburn Last Admin: 10/06/23 20:43 Dose: 750 mg Documented By: KASI Fludrocortisone Acetate (Fludrocortisone Acetate 0.1 Mg Tablet) 0.1 mg PO DAILY [facility] Last Admin: 11/04/23 08:48 Dose: 0.1 mg Documented By: BELLA Gabapentin (Gabapentin 100 Mg Capsule) 100 mg PO BID [facility] Last Admin: 11/04/23 08:48 Dose: 100 mg Documented By: BELLA Glucose (Glucose Gel 15 Gm Gel..Gram.) 15 gm PO Q15M PRN; Protocol PRN Reason: per Hypoglycemia Standing Ord. Dextrose (D10) 250 mls @ 750 mls/hr IV Q15M PRN; Protocol PRN Reason: per Hypoglycemia Standing Ord. Multi-Ingred Cream/Lotion/Oil/Oint (Mineral Oil/Petrolatum,White 106 Gm Tube) 1 appl TOPICAL BID [facility]; Protocol Last Admin: 11/04/23 08:50 Dose: Not Given Documented By: BELLA Non-Admin Reason: Patient Refused Ondansetron HCl (Ondansetron Odt 4 Mg Tab.Rapdis) 4 mg TRANSLINGU Q6H PRN PRN Reason: Nausea and Vomiting Last Admin: 10/27/23 20:01 Dose: 4 mg Documented By: HERMELINDO Polyethylene Glycol (Polyethylene Glycol 3350 17 Gm Powd.Pack) 17 gm PO DAILY [facility] Last Admin: 11/04/23 08:50 Dose: Not Given Documented By: BELLA Non-Admin Reason: Patient Refused Sertraline HCl (Sertraline Hcl 25 Mg Tablet) 12.5 mg PO BEDTIME [facility] Last Admin: 11/03/23 20:21 Dose: 12.5 mg Documented By: GARY Sodium Bicarbonate (Sodium Bicarbonate 650 Mg Tablet) 650 mg PO BID [facility] Last Admin: 11/04/23 08:48 Dose: 650 mg Documented By: BELLA Trazodone HCl (Trazodone Hcl 25 Mg Halftab) 25 mg PO BEDTIME [facility] Last Admin: 11/03/23 20:21 Dose: 25 mg Documented By: GARY Labs 11/03/23 05:08 11/03/23 05:08 Labs: Laboratory Results - last 24 hr 11/03/23 11/04/23 11/04/23 17:40 07:41 08:41 POC Glucose 114 Iron 47 TIBC 209 L % Saturation 22 Unsat Iron Binding 162 Ferritin 406 H Vitamin B12 506 Folate 4.0 Stool Occult Blood NEGATIVE Assessment and Plan (1) DMII (diabetes mellitus, type 2): Status: Acute Plan 53 years old male with PMH of DM2, HTN, Asthma who presented to ED After sustaining a fall and laying on the floor for 9 hours found to have severe acute kidney injury from rhabdomyolysis and hyperkalemia Acute on chronic DVT in right common femoral vein eliquis 5 bid VQ scan nondiagnostic. Chronic normocytic anemia, noted to have slight drop in hematocrit to 26, Stool guaiacs negative, normal B12 folate and iron studies Will give Procrit for possible anemia of chronic disease due to kidney disease. Sinus tachycardia baseline Acute diarrhea. Resolved gi panel negative cdif colonization but given acute diarrhea, s/p 10 day course of oral vancomycin CHITO and severe hyperkalemia and acute metabolic acidosis due to ATN from rhabdomyolysis started on HD. Resolved permacath placed 07/16/23, underwent catheter change 09/28 on midodrine 5 mg t.i.d. and Florinef 0.1 mg daily now with renal recovery - permcath removed 10/13. Creatinine 2.15 11/02, remains unchanged continue po sodium bicarb hypokalemia- resolved Chronic Leg and back pain Stable, continue gabapentin 100mg BID dysphagia tolerating regular diet,monitor closely. Depression. unspecified No behavioral issues seen by psychiatry 08/23 on Abilify 2.5 mg daily low-dose since it can cause orthostasis, trazodone 25 mg at bedtime and Zoloft 12.5 mg low-dose . tolerating current medications Acute?Rhabdomyolysis /Fall resolved with volume participating with physical therapy Diabetes type 2 stable blood sugars, last hemoglobin A1c 6.1 Will DC daily blood sugar monitoring changed to q weekly Morbid Obesity. BMI 49.2 Discussed importance of weight management as this may be contributing to worsening of other comorbidities dvt ppx - eliquis Full code reason for continued hospitalization: debilitated; safe discharge to home , case hardener arranging for safe disposition Quality Stroke Does the patient have a stroke diagnosis?: No VTE Prior VTE?: No VTE Risk Level:: Medical - moderate - high VTE Device Contraindication: N/A - Device Ordered VTE Drug Contraindication: N/A - Med Ordered
[2023-11-04 15:48] VITALS: BP 118/75; PULSE 115; RESP 18; TEMP 36.7; O2SAT 97
[2023-11-04 19:45] VITALS: BP 128/80; PULSE 106; RESP 18; TEMP 36.7; O2SAT 99
[2023-11-04] MEDS: Sertraline HCL 25 MG TABLET 12.5 MG PO (21:12)
[2023-11-04] MEDS: traZODone HCL 25 MG HALFTAB PO (21:12)
[2023-11-05 03:19] VITALS: BP 127/77; PULSE 118; TEMP 36.8; O2SAT 96
[2023-11-05 07:59] VITALS: BP 115/73; PULSE 111; RESP 17; TEMP 37.2; O2SAT 97
[2023-11-05] MEDS: ARIPiprazole 5 MG TABLET 2.5 MG PO (09:41)
[2023-11-05] MEDS: Fludrocortisone Acetate 0.1 MG TABLET PO (09:41)
[2023-11-05] MEDS: Gabapentin 100 MG CAPSULE PO ×2 (09:41→20:02)
[2023-11-05] MEDS: Sodium Bicarbonate 650 MG TABLET PO ×2 (09:41→20:03)
[2023-11-05] MEDS: Apixaban 5 MG TABLET PO ×2 (09:41→20:02)
[2023-11-05] MEDS: Acetaminophen 325 MG TABLET 650 MG PO ×2 (09:50→19:37)
--- NOTE | 2023-11-05 12:09 | MHC.CM.PN ---
Addendum entered by Marjorie Anton 11/05/23 13:30: PER MOI FROM [facility], SACA-2 FORM COMPLETED AND [facility] [employer] HAS BEEN CHOSEN. THIS MAY BE ACTIVE BY WEDNESDAY. CM WILL F/U ON THIS TO ENSURE HOME SERVICES CAN START NEXT WEEK. Original Note: EMR REVIEWED AND PER MD ROUNDS, PT REMAINS MEDICALLY CLEARED. MOI, LIAISON FROM [facility], WILL BE IN TODAY TO COMPLETE SACA-2 APPLICATION WITH PT FOR CONVERSION PROCESS TO A [facility] INSURANCE PLAN. CM WILL CONTINUE TO FOLLOW UP ON THIS AND FOLLOW FOR ANY CHANGE TO DC PLAN/NEEDS.
--- NOTE | 2023-11-05 15:15 | HO.PM.IMPN ---
Subjective Subjective Date of Service: 11/05/23 Interval History: Seen and examined this morning Follow-up for placement No overnight events No specific complaints this morning Observed sitting up in chair Review of Systems Review of Systems: Yes all other systems are reviewed and are negative Constitutional Constitutional: Denies chills and Denies fever(s) Cardiovascular Cardiovascular: Denies chest pain, Denies palpitations and Denies dyspnea Respiratory Respiratory: Denies cough and Denies dyspnea Gastrointestinal Gastrointestinal: Denies abdominal pain Endocrine Endocrine: Denies palpitations Physical Exam Vital Signs: Vital Signs: Last Vital Signs Temp 98.9 F 11/05/23 07:59 Pulse 111 H 11/05/23 07:59 Resp 17 11/05/23 07:59 BP 115/73 11/05/23 07:59 Pulse Ox 97 11/05/23 07:59 O2 Del Method Room Air 11/05/23 07:59 O2 Flow Rate 2 09/17/23 12:00 BMI result Body Mass Index 49.2 Const: General: cooperative, comfortable, no acute distress, alert, awake and Physically active Nutritional Appearance: obese Orientation/consciousness: patient oriented x3 Resp: Effort & Inspection: normal respiratory effort, able to speak in complete sentences, no respiratory distress and no use of accessory muscles GI: Inspection: No distended Palpation (GI): Soft to palpation and nontender Neuro: General: patient oriented x3, moves all extremities and CN's II-XI intact bilaterally Psych: Affect: Blunted affect present Objective Data Active Medications Acetaminophen (Acetaminophen 325 Mg Tablet) 650 mg PO Q6H PRN PRN Reason: Pain, Mild (Pain Scale 1-3) Last Admin: 11/05/23 09:50 Dose: 650 mg Documented By: OPHELIA Apixaban (Apixaban 5 Mg Tablet) 5 mg PO BID [facility] Stop: 02/25/25 21:01 Last Admin: 11/05/23 09:41 Dose: 5 mg Documented By: OPHELIA Aripiprazole (Aripiprazole 5 Mg Tablet) 2.5 mg PO DAILY [facility] Last Admin: 11/05/23 09:41 Dose: 2.5 mg Documented By: OPHELIA Calcium Carbonate (Calcium Carbonate 750 Mg Tab.Chew) 750 mg PO Q6H PRN PRN Reason: Heartburn Last Admin: 10/06/23 20:43 Dose: 750 mg Documented By: KASI Fludrocortisone Acetate (Fludrocortisone Acetate 0.1 Mg Tablet) 0.1 mg PO DAILY [facility] Last Admin: 11/05/23 09:41 Dose: 0.1 mg Documented By: OPHELIA Gabapentin (Gabapentin 100 Mg Capsule) 100 mg PO BID [facility] Last Admin: 11/05/23 09:41 Dose: 100 mg Documented By: OPHELIA Glucose (Glucose Gel 15 Gm Gel..Gram.) 15 gm PO Q15M PRN; Protocol PRN Reason: per Hypoglycemia Standing Ord. Dextrose (D10) 250 mls @ 750 mls/hr IV Q15M PRN; Protocol PRN Reason: per Hypoglycemia Standing Ord. Multi-Ingred Cream/Lotion/Oil/Oint (Mineral Oil/Petrolatum,White 106 Gm Tube) 1 appl TOPICAL BID [facility]; Protocol Last Admin: 11/05/23 09:41 Dose: Not Given Documented By: OPHELIA Non-Admin Reason: Patient Refused Ondansetron HCl (Ondansetron Odt 4 Mg Tab.Rapdis) 4 mg TRANSLINGU Q6H PRN PRN Reason: Nausea and Vomiting Last Admin: 10/27/23 20:01 Dose: 4 mg Documented By: HERMELINDO Polyethylene Glycol (Polyethylene Glycol 3350 17 Gm Powd.Pack) 17 gm PO DAILY [facility] Last Admin: 11/05/23 09:42 Dose: Not Given Documented By: OPHELIA Non-Admin Reason: Patient Refused Sertraline HCl (Sertraline Hcl 25 Mg Tablet) 12.5 mg PO BEDTIME [facility] Last Admin: 11/04/23 21:12 Dose: 12.5 mg Documented By: ROLANDO Sodium Bicarbonate (Sodium Bicarbonate 650 Mg Tablet) 650 mg PO BID [facility] Last Admin: 11/05/23 09:41 Dose: 650 mg Documented By: OPHELIA Trazodone HCl (Trazodone Hcl 25 Mg Halftab) 25 mg PO BEDTIME [facility] Last Admin: 11/04/23 21:12 Dose: 25 mg Documented By: ROLANDO Labs 11/03/23 05:08 11/03/23 05:08 Assessment and Plan (1) Acute DVT (deep venous thrombosis): Status: Acute Plan 53 years old male with PMH of DM2, HTN, Asthma who presented to ED After sustaining a fall and laying on the floor for 9 hours found to have severe acute kidney injury from rhabdomyolysis and hyperkalemia Acute on chronic DVT in right common femoral vein eliquis 5 bid VQ scan nondiagnostic. Chronic normocytic anemia, noted to have slight drop in hematocrit to 26, Stool guaiacs negative, normal B12 folate and iron studies Will give Procrit for possible anemia of chronic disease due to kidney disease. Sinus tachycardia baseline Acute diarrhea. Resolved gi panel negative cdif colonization but given acute diarrhea, s/p 10 day course of oral vancomycin CHITO and severe hyperkalemia and acute metabolic acidosis due to ATN from rhabdomyolysis started on HD. Resolved permacath placed 07/16/23, underwent catheter change 09/28 on midodrine 5 mg t.i.d. and Florinef 0.1 mg daily now with renal recovery - permcath removed 10/13. Creatinine 2.15 11/02, remains unchanged continue po sodium bicarb hypokalemia- resolved Chronic Leg and back pain Stable, continue gabapentin 100mg BID dysphagia tolerating regular diet,monitor closely. Depression. unspecified No behavioral issues seen by psychiatry 08/23 on Abilify 2.5 mg daily low-dose since it can cause orthostasis, trazodone 25 mg at bedtime and Zoloft 12.5 mg low-dose . tolerating current medications Acute?Rhabdomyolysis /Fall resolved with volume participating with physical therapy Diabetes type 2 stable blood sugars, last hemoglobin A1c 6.1 Will DC daily blood sugar monitoring changed to q weekly Morbid Obesity. BMI 49.2 Discussed importance of weight management as this may be contributing to worsening of other comorbidities dvt ppx - eliquis Full code reason for continued hospitalization: debilitated; safe discharge to home , telephonic nurse case manager arranging for safe disposition Quality Stroke Does the patient have a stroke diagnosis?: No VTE Prior VTE?: No VTE Risk Level:: Medical - moderate - high VTE Device Contraindication: N/A - Device Ordered VTE Drug Contraindication: N/A - Med Ordered
[2023-11-05 15:32] VITALS: BP 123/76; PULSE 110; RESP 18; TEMP 36.9; O2SAT 98
[2023-11-05 19:41] VITALS: BP 138/86; PULSE 100; RESP 18; TEMP 36.8; O2SAT 96
[2023-11-05] MEDS: Sertraline HCL 25 MG TABLET 12.5 MG PO (20:02)
[2023-11-05] MEDS: traZODone HCL 25 MG HALFTAB PO (20:03)
[2023-11-06 03:13] VITALS: BP 121/78; PULSE 106; RESP 18; TEMP 36.1; O2SAT 98
[2023-11-06 07:40] VITALS: BP 131/86; PULSE 108; RESP 18; TEMP 36.8; O2SAT 97
--- NOTE | 2023-11-06 08:05 | HO.PM.IMPN ---
Subjective Subjective Date of Service: 11/06/23 Interval History: Seen and examined this morning Follow-up for placement No overnight events No specific complaints this morning Observed sitting up in chair Review of Systems Review of Systems: Yes all other systems are reviewed and are negative Constitutional Constitutional: Denies chills and Denies fever(s) Cardiovascular Cardiovascular: Denies chest pain, Denies palpitations and Denies dyspnea Respiratory Respiratory: Denies cough and Denies dyspnea Gastrointestinal Gastrointestinal: Denies abdominal pain Endocrine Endocrine: Denies palpitations Physical Exam Vital Signs: Vital Signs: Last Vital Signs Temp 98.2 F 11/06/23 07:40 Pulse 108 H 11/06/23 07:40 Resp 18 11/06/23 07:40 BP 131/86 11/06/23 07:40 Pulse Ox 97 11/06/23 07:40 O2 Del Method Room Air 11/06/23 07:40 O2 Flow Rate 2 09/17/23 12:00 BMI result Body Mass Index 49.2 alertaand oriented Objective Data Active Medications Acetaminophen (Acetaminophen 325 Mg Tablet) 650 mg PO Q6H PRN PRN Reason: Pain, Mild (Pain Scale 1-3) Last Admin: 11/05/23 19:37 Dose: 650 mg Documented By: TOYA Apixaban (Apixaban 5 Mg Tablet) 5 mg PO BID [facility] Stop: 02/25/25 21:01 Last Admin: 11/05/23 20:02 Dose: 5 mg Documented By: TOYA Aripiprazole (Aripiprazole 5 Mg Tablet) 2.5 mg PO DAILY [facility] Last Admin: 11/05/23 09:41 Dose: 2.5 mg Documented By: OPHELIA Calcium Carbonate (Calcium Carbonate 750 Mg Tab.Chew) 750 mg PO Q6H PRN PRN Reason: Heartburn Last Admin: 10/06/23 20:43 Dose: 750 mg Documented By: KASI Fludrocortisone Acetate (Fludrocortisone Acetate 0.1 Mg Tablet) 0.1 mg PO DAILY [facility] Last Admin: 11/05/23 09:41 Dose: 0.1 mg Documented By: OPHELIA Gabapentin (Gabapentin 100 Mg Capsule) 100 mg PO BID [facility] Last Admin: 11/05/23 20:02 Dose: 100 mg Documented By: TOYA Glucose (Glucose Gel 15 Gm Gel..Gram.) 15 gm PO Q15M PRN; Protocol PRN Reason: per Hypoglycemia Standing Ord. Dextrose (D10) 250 mls @ 750 mls/hr IV Q15M PRN; Protocol PRN Reason: per Hypoglycemia Standing Ord. Multi-Ingred Cream/Lotion/Oil/Oint (Mineral Oil/Petrolatum,White 106 Gm Tube) 1 appl TOPICAL BID [facility]; Protocol Last Admin: 11/05/23 20:04 Dose: Not Given Documented By: TOYA Non-Admin Reason: Patient Refused Ondansetron HCl (Ondansetron Odt 4 Mg Tab.Rapdis) 4 mg TRANSLINGU Q6H PRN PRN Reason: Nausea and Vomiting Last Admin: 10/27/23 20:01 Dose: 4 mg Documented By: HERMELINDO Polyethylene Glycol (Polyethylene Glycol 3350 17 Gm Powd.Pack) 17 gm PO DAILY [facility] Last Admin: 11/05/23 09:42 Dose: Not Given Documented By: OPHELIA Non-Admin Reason: Patient Refused Sertraline HCl (Sertraline Hcl 25 Mg Tablet) 12.5 mg PO BEDTIME [facility] Last Admin: 11/05/23 20:02 Dose: 12.5 mg Documented By: TOYA Sodium Bicarbonate (Sodium Bicarbonate 650 Mg Tablet) 650 mg PO BID [facility] Last Admin: 11/05/23 20:03 Dose: 650 mg Documented By: TOYA Trazodone HCl (Trazodone Hcl 25 Mg Halftab) 25 mg PO BEDTIME [facility] Last Admin: 11/05/23 20:03 Dose: 25 mg Documented By: TOYA Labs 11/03/23 05:08 11/03/23 05:08 Assessment and Plan (1) Acute DVT (deep venous thrombosis): Status: Acute Plan 53 years old male with PMH of DM2, HTN, Asthma who presented to ED After sustaining a fall and laying on the floor for 9 hours found to have severe acute kidney injury from rhabdomyolysis and hyperkalemia Acute on chronic DVT in right common femoral vein eliquis 5 bid VQ scan nondiagnostic. Chronic normocytic anemia, noted to have slight drop in hematocrit to 26, Stool guaiacs negative, normal B12 folate and iron studies Will give Procrit for possible anemia of chronic disease due to kidney disease. Sinus tachycardia baseline Acute diarrhea. Resolved gi panel negative cdif colonization but given acute diarrhea, s/p 10 day course of oral vancomycin CHITO and severe hyperkalemia and acute metabolic acidosis due to ATN from rhabdomyolysis started on HD. Resolved permacath placed 07/16/23, underwent catheter change 09/28 on midodrine 5 mg t.i.d. and Florinef 0.1 mg daily now with renal recovery - permcath removed 10/13. Creatinine 2.15 11/02, remains unchanged continue po sodium bicarb hypokalemia- resolved Chronic Leg and back pain Stable, continue gabapentin 100mg BID dysphagia tolerating regular diet,monitor closely. Depression. unspecified No behavioral issues seen by psychiatry 08/23 on Abilify 2.5 mg daily low-dose since it can cause orthostasis, trazodone 25 mg at bedtime and Zoloft 12.5 mg low-dose . tolerating current medications Acute?Rhabdomyolysis /Fall resolved with volume participating with physical therapy Diabetes type 2 stable blood sugars, last hemoglobin A1c 6.1 Will DC daily blood sugar monitoring changed to q weekly Morbid Obesity. BMI 49.2 Discussed importance of weight management as this may be contributing to worsening of other comorbidities dvt ppx - cierra Attending Dr. Alcantar Full code reason for continued hospitalization: debilitated; safe discharge to home , human services case manager arranging for safe disposition Quality Stroke Does the patient have a stroke diagnosis?: No VTE Prior VTE?: No VTE Risk Level:: Medical - moderate - high VTE Device Contraindication: N/A - Device Ordered VTE Drug Contraindication: N/A - Med Ordered
[2023-11-06] MEDS: ARIPiprazole 5 MG TABLET 2.5 MG PO (09:48)
[2023-11-06] MEDS: Apixaban 5 MG TABLET PO ×2 (09:49→20:15)
[2023-11-06] MEDS: Sodium Bicarbonate 650 MG TABLET PO ×2 (09:49→20:14)
[2023-11-06] MEDS: Gabapentin 100 MG CAPSULE PO ×2 (09:49→20:15)
[2023-11-06] MEDS: Fludrocortisone Acetate 0.1 MG TABLET PO (09:49)
[2023-11-06 15:20] VITALS: BP 122/67; PULSE 106; RESP 17; TEMP 37.4; O2SAT 97
[2023-11-06 20:00] VITALS: BP 147/82; PULSE 108; RESP 17; TEMP 37.6; O2SAT 97
[2023-11-06] MEDS: Sertraline HCL 25 MG TABLET 12.5 MG PO (20:14)
[2023-11-06] MEDS: traZODone HCL 25 MG HALFTAB PO (20:15)
[2023-11-07 04:00] VITALS: BP 128/80; PULSE 115; RESP 17; TEMP 36.7; O2SAT 98
--- NOTE | 2023-11-07 07:15 | P.PNIM_ITS ---
Subjective Subjective Date of Service: 11/07/23 Interval History: Seen and examined this morning Follow-up for placement No overnight events No specific complaints this morning Observed sitting up in chair Review of Systems Review of Systems: Yes all other systems are reviewed and are negative Constitutional Constitutional: Denies chills and Denies fever(s) Cardiovascular Cardiovascular: Denies chest pain, Denies palpitations and Denies dyspnea Respiratory Respiratory: Denies cough and Denies dyspnea Gastrointestinal Gastrointestinal: Denies abdominal pain Endocrine Endocrine: Denies palpitations Physical Exam 2 Vital Signs: Vital Signs: Last Vital Signs Temp 98.0 F 11/07/23 04:00 Pulse 115 H 11/07/23 04:00 Resp 17 11/07/23 04:00 BP 128/80 11/07/23 04:00 Pulse Ox 98 11/07/23 04:00 O2 Del Method Room Air 11/07/23 04:00 O2 Flow Rate 2 09/17/23 12:00 BMI result Body Mass Index 49.2 alert and oriented Objective Data Active Medications Acetaminophen (Acetaminophen 325 Mg Tablet) 650 mg PO Q6H PRN PRN Reason: Pain, Mild (Pain Scale 1-3) Last Admin: 11/05/23 19:37 Dose: 650 mg Documented By: TOYA Apixaban (Apixaban 5 Mg Tablet) 5 mg PO BID [facility] Stop: 02/25/25 21:01 Last Admin: 11/06/23 20:15 Dose: 5 mg Documented By: TOYA Aripiprazole (Aripiprazole 5 Mg Tablet) 2.5 mg PO DAILY [facility] Last Admin: 11/06/23 09:48 Dose: 2.5 mg Documented By: ALETHA Calcium Carbonate (Calcium Carbonate 750 Mg Tab.Chew) 750 mg PO Q6H PRN PRN Reason: Heartburn Last Admin: 10/06/23 20:43 Dose: 750 mg Documented By: KASI Fludrocortisone Acetate (Fludrocortisone Acetate 0.1 Mg Tablet) 0.1 mg PO DAILY [facility] Last Admin: 11/06/23 09:49 Dose: 0.1 mg Documented By: ALETHA Gabapentin (Gabapentin 100 Mg Capsule) 100 mg PO BID [facility] Last Admin: 11/06/23 20:15 Dose: 100 mg Documented By: TOYA Glucose (Glucose Gel 15 Gm Gel..Gram.) 15 gm PO Q15M PRN; Protocol PRN Reason: per Hypoglycemia Standing Ord. Dextrose (D10) 250 mls @ 750 mls/hr IV Q15M PRN; Protocol PRN Reason: per Hypoglycemia Standing Ord. Multi-Ingred Cream/Lotion/Oil/Oint (Mineral Oil/Petrolatum,White 106 Gm Tube) 1 appl TOPICAL BID [facility]; Protocol Last Admin: 11/06/23 20:28 Dose: Not Given Documented By: TOYA Non-Admin Reason: Patient Refused Ondansetron HCl (Ondansetron Odt 4 Mg Tab.Rapdis) 4 mg TRANSLINGU Q6H PRN PRN Reason: Nausea and Vomiting Last Admin: 10/27/23 20:01 Dose: 4 mg Documented By: HERMELINDO Polyethylene Glycol (Polyethylene Glycol 3350 17 Gm Powd.Pack) 17 gm PO DAILY [facility] Last Admin: 11/06/23 11:06 Dose: Not Given Documented By: ALETHA Non-Admin Reason: Patient Refused Sertraline HCl (Sertraline Hcl 25 Mg Tablet) 12.5 mg PO BEDTIME [facility] Last Admin: 11/06/23 20:14 Dose: 12.5 mg Documented By: TOYA Sodium Bicarbonate (Sodium Bicarbonate 650 Mg Tablet) 650 mg PO BID [facility] Last Admin: 11/06/23 20:14 Dose: 650 mg Documented By: TOYA Trazodone HCl (Trazodone Hcl 25 Mg Halftab) 25 mg PO BEDTIME [facility] Last Admin: 11/06/23 20:15 Dose: 25 mg Documented By: TOYA Labs 11/03/23 05:08 11/03/23 05:08 Assessment and Plan (1) Acute DVT (deep venous thrombosis): Status: Acute Plan 53 years old male with PMH of DM2, HTN, Asthma who presented to ED After sustaining a fall and laying on the floor for 9 hours found to have severe acute kidney injury from rhabdomyolysis and hyperkalemia Acute on chronic DVT in right common femoral vein eliquis 5 bid VQ scan nondiagnostic. Chronic normocytic anemia, noted to have slight drop in hematocrit to 26, Stool guaiacs negative, normal B12 folate and iron studies s/p Procrit for possible anemia of chronic disease due to kidney disease. Sinus tachycardia baseline Acute diarrhea. Resolved gi panel negative cdif colonization but given acute diarrhea, s/p 10 day course of oral vancomycin CHITO and severe hyperkalemia and acute metabolic acidosis due to ATN from rhabdomyolysis started on HD. Resolved permacath placed 07/16/23, underwent catheter change 09/28 on midodrine 5 mg t.i.d. and Florinef 0.1 mg daily now with renal recovery - permcath removed 10/13. Creatinine 2.15 11/02, remains unchanged continue po sodium bicarb Hypokalemia. resolved Chronic Leg and back pain Stable continue gabapentin 100mg BID Dysphagia tolerating regular diet, monitor closely. Depression. unspecified No behavioral issues seen by psychiatry 08/23 on Abilify 2.5 mg daily low-dose since it can cause orthostasis, trazodone 25 mg at bedtime and Zoloft 12.5 mg low-dose . tolerating current medications Acute?Rhabdomyolysis /Fall resolved with volume participating with physical therapy Diabetes type 2 stable blood sugars, last hemoglobin A1c 6.1 Will DC daily blood sugar monitoring changed to q weekly Morbid Obesity. BMI 49.2 Discussed importance of weight management as this may be contributing to worsening of other comorbidities dvt nestor - cierra Attending Dr. Alcantar Full code reason for continued hospitalization: debilitated; safe discharge to home , correctional counselor/case manager arranging for safe disposition Quality Stroke Does the patient have a stroke diagnosis?: No VTE Prior VTE?: No VTE Risk Level:: Medical - moderate - high VTE Device Contraindication: N/A - Device Ordered VTE Drug Contraindication: N/A - Med Ordered
[2023-11-07 07:26] VITALS: BP 129/77; PULSE 98; RESP 16; TEMP 36.9; O2SAT 97
[2023-11-07] MEDS: Sodium Bicarbonate 650 MG TABLET PO ×2 (08:51→20:36)
[2023-11-07] MEDS: Apixaban 5 MG TABLET PO ×2 (08:51→20:36)
[2023-11-07] MEDS: ARIPiprazole 5 MG TABLET 2.5 MG PO (08:51)
[2023-11-07] MEDS: Gabapentin 100 MG CAPSULE PO ×2 (08:51→20:36)
[2023-11-07] MEDS: Fludrocortisone Acetate 0.1 MG TABLET PO (08:51)
[2023-11-07 15:41] VITALS: BP 126/85; PULSE 102; RESP 16; TEMP 37; O2SAT 96
[2023-11-07 19:53] VITALS: BP 132/80; PULSE 103; RESP 18; TEMP 37; O2SAT 97
[2023-11-07] MEDS: traZODone HCL 25 MG HALFTAB PO (20:36)
[2023-11-07] MEDS: Sertraline HCL 25 MG TABLET 12.5 MG PO (20:37)
[2023-11-08 03:27] VITALS: BP 134/84; PULSE 110; RESP 18; TEMP 36.7; O2SAT 95
--- NOTE | 2023-11-08 07:15 | HO.PM.IMPN ---
Subjective Subjective Date of Service: 11/08/23 Interval History: Seen and examined this morning Follow-up for placement No overnight events No specific complaints this morning Observed sitting up in chair Review of Systems Review of Systems: Yes all other systems are reviewed and are negative Constitutional Constitutional: Denies chills and Denies fever(s) Cardiovascular Cardiovascular: Denies chest pain, Denies palpitations and Denies dyspnea Respiratory Respiratory: Denies cough and Denies dyspnea Gastrointestinal Gastrointestinal: Denies abdominal pain Endocrine Endocrine: Denies palpitations Physical Exam Vital Signs: Vital Signs: Last Vital Signs Temp 98.1 F 11/08/23 03:27 Pulse 110 H 11/08/23 03:27 Resp 18 11/08/23 03:27 BP 134/84 11/08/23 03:27 Pulse Ox 95 11/08/23 03:27 O2 Del Method Room Air 11/08/23 03:27 O2 Flow Rate 2 09/17/23 12:00 BMI result Body Mass Index 49.2 Appearing in no acute distress lung sounds are clear to auscultation heart regular rate rhythm, clear S1, S2 positive bowel sounds, abdomen is soft, nontender neuro patient is alert x3, no focal deficits Objective Data Active Medications Acetaminophen (Acetaminophen 325 Mg Tablet) 650 mg PO Q6H PRN PRN Reason: Pain, Mild (Pain Scale 1-3) Last Admin: 11/05/23 19:37 Dose: 650 mg Documented By: TOYA Apixaban (Apixaban 5 Mg Tablet) 5 mg PO BID [facility] Stop: 02/25/25 21:01 Last Admin: 11/07/23 20:36 Dose: 5 mg Documented By: DAVID Aripiprazole (Aripiprazole 5 Mg Tablet) 2.5 mg PO DAILY [facility] Last Admin: 11/07/23 08:51 Dose: 2.5 mg Documented By: ALETHA Calcium Carbonate (Calcium Carbonate 750 Mg Tab.Chew) 750 mg PO Q6H PRN PRN Reason: Heartburn Last Admin: 10/06/23 20:43 Dose: 750 mg Documented By: KASI Fludrocortisone Acetate (Fludrocortisone Acetate 0.1 Mg Tablet) 0.1 mg PO DAILY [facility] Last Admin: 11/07/23 08:51 Dose: 0.1 mg Documented By: ALETHA Gabapentin (Gabapentin 100 Mg Capsule) 100 mg PO BID [facility] Last Admin: 11/07/23 20:36 Dose: 100 mg Documented By: DAVID Glucose (Glucose Gel 15 Gm Gel..Gram.) 15 gm PO Q15M PRN; Protocol PRN Reason: per Hypoglycemia Standing Ord. Dextrose (D10) 250 mls @ 750 mls/hr IV Q15M PRN; Protocol PRN Reason: per Hypoglycemia Standing Ord. Multi-Ingred Cream/Lotion/Oil/Oint (Mineral Oil/Petrolatum,White 106 Gm Tube) 1 appl TOPICAL BID [facility]; Protocol Last Admin: 11/07/23 20:37 Dose: Not Given Documented By: DAVID Non-Admin Reason: Patient Refused Ondansetron HCl (Ondansetron Odt 4 Mg Tab.Rapdis) 4 mg TRANSLINGU Q6H PRN PRN Reason: Nausea and Vomiting Last Admin: 10/27/23 20:01 Dose: 4 mg Documented By: HERMELINDO Polyethylene Glycol (Polyethylene Glycol 3350 17 Gm Powd.Pack) 17 gm PO DAILY [facility] Last Admin: 11/07/23 08:53 Dose: Not Given Documented By: ALETHA Non-Admin Reason: Patient Refused Sertraline HCl (Sertraline Hcl 25 Mg Tablet) 12.5 mg PO BEDTIME [facility] Last Admin: 11/07/23 20:37 Dose: 12.5 mg Documented By: DAVID Sodium Bicarbonate (Sodium Bicarbonate 650 Mg Tablet) 650 mg PO BID [facility] Last Admin: 11/07/23 20:36 Dose: 650 mg Documented By: DAVID Trazodone HCl (Trazodone Hcl 25 Mg Halftab) 25 mg PO BEDTIME [facility] Last Admin: 11/07/23 20:36 Dose: 25 mg Documented By: DAVID Labs 11/03/23 05:08 11/03/23 05:08 Assessment and Plan (1) Acute DVT (deep venous thrombosis): Status: Acute Plan 53 years old male with PMH of DM2, HTN, Asthma who presented to ED After sustaining a fall and laying on the floor for 9 hours found to have severe acute kidney injury from rhabdomyolysis and hyperkalemia Acute on chronic DVT in right common femoral vein eliquis 5 bid VQ scan nondiagnostic. Chronic normocytic anemia, noted to have slight drop in hematocrit to 26, Stool guaiacs negative, normal B12 folate and iron studies s/p Procrit for possible anemia of chronic disease due to kidney disease. Sinus tachycardia baseline Acute diarrhea. Resolved gi panel negative cdif colonization but given acute diarrhea, s/p 10 day course of oral vancomycin CHITO and severe hyperkalemia and acute metabolic acidosis due to ATN from rhabdomyolysis started on HD. Resolved permacath placed 07/16/23, underwent catheter change 09/28 on midodrine 5 mg t.i.d. and Florinef 0.1 mg daily now with renal recovery - permcath removed 10/13. Creatinine 2.15 11/02, remains unchanged continue po sodium bicarb Hypokalemia. resolved Chronic Leg and back pain Stable continue gabapentin 100mg BID Dysphagia tolerating regular diet, monitor closely. Depression. unspecified No behavioral issues seen by psychiatry 08/23 on Abilify 2.5 mg daily low-dose since it can cause orthostasis, trazodone 25 mg at bedtime and Zoloft 12.5 mg low-dose . tolerating current medications Acute?Rhabdomyolysis /Fall resolved with volume participating with physical therapy Diabetes type 2 stable blood sugars, last hemoglobin A1c 6.1 Will DC daily blood sugar monitoring changed to q weekly Morbid Obesity. BMI 49.2 Discussed importance of weight management as this may be contributing to worsening of other comorbidities dvt nestor - cierra Attending Dr. Alcantar Full code reason for continued hospitalization: debilitated; safe discharge to home , medical case manager arranging for safe disposition Quality Stroke Does the patient have a stroke diagnosis?: No VTE Prior VTE?: No VTE Risk Level:: Medical - moderate - high VTE Device Contraindication: N/A - Device Ordered VTE Drug Contraindication: N/A - Med Ordered
[2023-11-08 07:25] VITALS: BP 138/82; PULSE 107; RESP 16; TEMP 36.1; O2SAT 98
[2023-11-08] MEDS: Apixaban 5 MG TABLET PO ×2 (09:05→21:36)
[2023-11-08] MEDS: Sodium Bicarbonate 650 MG TABLET PO ×2 (09:05→21:36)
[2023-11-08] MEDS: Acetaminophen 325 MG TABLET 650 MG PO (09:05)
[2023-11-08] MEDS: Fludrocortisone Acetate 0.1 MG TABLET PO (09:05)
[2023-11-08] MEDS: ARIPiprazole 5 MG TABLET 2.5 MG PO (09:05)
[2023-11-08] MEDS: Gabapentin 100 MG CAPSULE PO ×2 (09:06→21:37)
--- NOTE | 2023-11-08 11:17 | MHC.CM.PN ---
Discharge plan is home with services. Patients insurance will change to [facility] this week. [facility] has been referred for additional support in the home. A clinical update has been sent to home care agencies. They have been informed of the insurance plan change. We do not have an accepting Home care agency yet. [facility] with [facility], [facility] + [facility] via BLS.
[2023-11-08 15:36] VITALS: BP 133/87; PULSE 109; RESP 16; TEMP 36.9; O2SAT 96
[2023-11-08 19:22] VITALS: BP 147/83; PULSE 111; RESP 18; TEMP 36.7; O2SAT 97
[2023-11-08] MEDS: Sertraline HCL 25 MG TABLET 12.5 MG PO (21:36)
[2023-11-08] MEDS: traZODone HCL 25 MG HALFTAB PO (21:36)
[2023-11-09 04:00] VITALS: BP 141/93; PULSE 108; RESP 16; TEMP 36.1; O2SAT 94
--- NOTE | 2023-11-09 07:17 | P.PNIM_ITS ---
Subjective Subjective Date of Service: 11/09/23 Interval History: Seen and examined this morning Follow-up for placement No overnight events No specific complaints this morning Observed sitting up in chair Review of Systems Review of Systems: Yes all other systems are reviewed and are negative Constitutional Constitutional: Denies chills and Denies fever(s) Cardiovascular Cardiovascular: Denies chest pain, Denies palpitations and Denies dyspnea Respiratory Respiratory: Denies cough and Denies dyspnea Gastrointestinal Gastrointestinal: Denies abdominal pain Endocrine Endocrine: Denies palpitations Physical Exam 2 Vital Signs: Vital Signs: Last Vital Signs Temp 97.0 F 11/09/23 04:00 Pulse 108 H 11/09/23 04:00 Resp 16 11/09/23 04:00 BP 141/93 H 11/09/23 04:00 Pulse Ox 94 11/09/23 04:00 O2 Del Method Room Air 11/09/23 04:00 O2 Flow Rate 2 09/17/23 12:00 BMI result Body Mass Index 49.2 Appearing in no acute distress lung sounds are clear to auscultation heart regular rate rhythm, clear S1, S2 positive bowel sounds, abdomen is soft, nontender neuro patient is alert x3, no focal deficits Objective Data Active Medications Acetaminophen (Acetaminophen 325 Mg Tablet) 650 mg PO Q6H PRN PRN Reason: Pain, Mild (Pain Scale 1-3) Last Admin: 11/08/23 09:05 Dose: 650 mg Documented By: DACIA Apixaban (Apixaban 5 Mg Tablet) 5 mg PO BID [facility] Stop: 02/25/25 21:01 Last Admin: 11/08/23 21:36 Dose: 5 mg Documented By: DAVID Aripiprazole (Aripiprazole 5 Mg Tablet) 2.5 mg PO DAILY [facility] Last Admin: 11/08/23 09:05 Dose: 2.5 mg Documented By: DACIA Calcium Carbonate (Calcium Carbonate 750 Mg Tab.Chew) 750 mg PO Q6H PRN PRN Reason: Heartburn Last Admin: 10/06/23 20:43 Dose: 750 mg Documented By: KASI Fludrocortisone Acetate (Fludrocortisone Acetate 0.1 Mg Tablet) 0.1 mg PO DAILY [facility] Last Admin: 11/08/23 09:05 Dose: 0.1 mg Documented By: HO.SOFFAA Gabapentin (Gabapentin 100 Mg Capsule) 100 mg PO BID [facility] Last Admin: 11/08/23 21:37 Dose: 100 mg Documented By: DAVID Glucose (Glucose Gel 15 Gm Gel..Gram.) 15 gm PO Q15M PRN; Protocol PRN Reason: per Hypoglycemia Standing Ord. Dextrose (D10) 250 mls @ 750 mls/hr IV Q15M PRN; Protocol PRN Reason: per Hypoglycemia Standing Ord. Multi-Ingred Cream/Lotion/Oil/Oint (Mineral Oil/Petrolatum,White 106 Gm Tube) 1 appl TOPICAL BID [facility]; Protocol Last Admin: 11/08/23 21:38 Dose: Not Given Documented By: DAVID Non-Admin Reason: Patient Refused Ondansetron HCl (Ondansetron Odt 4 Mg Tab.Rapdis) 4 mg TRANSLINGU Q6H PRN PRN Reason: Nausea and Vomiting Last Admin: 10/27/23 20:01 Dose: 4 mg Documented By: HERMELINDO Polyethylene Glycol (Polyethylene Glycol 3350 17 Gm Powd.Pack) 17 gm PO DAILY [facility] Last Admin: 11/08/23 09:00 Dose: Not Given Documented By: DACIA Non-Admin Reason: Patient Refused Sertraline HCl (Sertraline Hcl 25 Mg Tablet) 12.5 mg PO BEDTIME [facility] Last Admin: 11/08/23 21:36 Dose: 12.5 mg Documented By: DAVID Sodium Bicarbonate (Sodium Bicarbonate 650 Mg Tablet) 650 mg PO BID [facility] Last Admin: 11/08/23 21:36 Dose: 650 mg Documented By: DAVID Trazodone HCl (Trazodone Hcl 25 Mg Halftab) 25 mg PO BEDTIME [facility] Last Admin: 11/08/23 21:36 Dose: 25 mg Documented By: DAVID Labs 11/03/23 05:08 11/03/23 05:08 Assessment and Plan (1) Acute DVT (deep venous thrombosis): Status: Acute Plan 53 years old male with PMH of DM2, HTN, Asthma who presented to ED After sustaining a fall and laying on the floor for 9 hours found to have severe acute kidney injury from rhabdomyolysis and hyperkalemia Acute on chronic DVT in right common femoral vein eliquis 5 bid VQ scan nondiagnostic. Chronic normocytic anemia, noted to have slight drop in hematocrit to 26, Stool guaiacs negative, normal B12 folate and iron studies s/p Procrit for possible anemia of chronic disease due to kidney disease. Sinus tachycardia baseline Acute diarrhea. Resolved gi panel negative cdif colonization but given acute diarrhea, s/p 10 day course of oral vancomycin CHITO and severe hyperkalemia and acute metabolic acidosis due to ATN from rhabdomyolysis started on HD. Resolved permacath placed 07/16/23, underwent catheter change 09/28 on midodrine 5 mg t.i.d. and Florinef 0.1 mg daily now with renal recovery - permcath removed 10/13. Creatinine 2.15 11/02, remains unchanged continue po sodium bicarb Hypokalemia. resolved Chronic Leg and back pain Stable continue gabapentin 100mg BID Dysphagia tolerating regular diet, monitor closely. Depression. unspecified No behavioral issues seen by psychiatry 08/23 on Abilify 2.5 mg daily low-dose since it can cause orthostasis, trazodone 25 mg at bedtime and Zoloft 12.5 mg low-dose . tolerating current medications Acute?Rhabdomyolysis /Fall resolved with volume participating with physical therapy Diabetes type 2 stable blood sugars, last hemoglobin A1c 6.1 Will DC daily blood sugar monitoring changed to q weekly Morbid Obesity. BMI 49.2 Discussed importance of weight management as this may be contributing to worsening of other comorbidities dvt ppx - cierra Attending Dr. Alcantar Full code reason for continued hospitalization: debilitated; safe discharge to home , continuous pillowcase cutter arranging for safe disposition Quality Stroke Does the patient have a stroke diagnosis?: No VTE Prior VTE?: No VTE Risk Level:: Medical - moderate - high VTE Device Contraindication: N/A - Device Ordered VTE Drug Contraindication: N/A - Med Ordered
[2023-11-09 07:34] VITALS: BP 134/96; PULSE 105; RESP 16; TEMP 36.9; O2SAT 97
[2023-11-09] MEDS: Sodium Bicarbonate 650 MG TABLET PO ×2 (08:42→21:43)
[2023-11-09] MEDS: Gabapentin 100 MG CAPSULE PO ×2 (08:42→21:43)
[2023-11-09] MEDS: Fludrocortisone Acetate 0.1 MG TABLET PO (08:42)
[2023-11-09] MEDS: Apixaban 5 MG TABLET PO ×2 (08:42→21:43)
[2023-11-09] MEDS: Acetaminophen 325 MG TABLET 650 MG PO (08:43)
[2023-11-09] MEDS: ARIPiprazole 5 MG TABLET 2.5 MG PO (08:43)
[2023-11-09 15:32] VITALS: BP 119/78; PULSE 112; RESP 18; TEMP 36.3; O2SAT 96
--- NOTE | 2023-11-09 16:13 | MHC.CM.PN ---
CM SPOKE WITH [facility] REP WHO STATES IT DOES NOT SHOW THAT PT IS YET ENROLLED IN THE [facility] ONECARE PLAN. [facility] REP NOTIFIED AND VERIFIED THIS THROUGH THE [facility] DIRECTOR. EC LIAISON WILL F/U 11/09 TO DETERMINE THE STATUS OF HIS ENROLLMENT. [facility] CONTINUES TO FOLLOW FOR PLAN.
[2023-11-09 20:00] VITALS: BP 132/79; PULSE 101; RESP 16; TEMP 36.4; O2SAT 98
[2023-11-09] MEDS: traZODone HCL 25 MG HALFTAB PO (21:43)
[2023-11-09] MEDS: Sertraline HCL 25 MG TABLET 12.5 MG PO (21:43)
[2023-11-10 03:52] VITALS: BP 131/90; PULSE 106; RESP 18; TEMP 36.4; O2SAT 96
[2023-11-10] MEDS: Sodium Bicarbonate 650 MG TABLET PO ×2 (07:37→20:36)
[2023-11-10] MEDS: ARIPiprazole 5 MG TABLET 2.5 MG PO (07:37)
[2023-11-10] MEDS: Fludrocortisone Acetate 0.1 MG TABLET PO (07:38)
[2023-11-10] MEDS: Gabapentin 100 MG CAPSULE PO ×2 (07:38→20:36)
[2023-11-10] MEDS: Apixaban 5 MG TABLET PO ×2 (07:38→20:36)
[2023-11-10 07:55] VITALS: BP 133/95; PULSE 97; RESP 16; TEMP 36.8; O2SAT 96
--- NOTE | 2023-11-10 12:39 | P.PNIM_ITS ---
Subjective Subjective Date of Service: 11/10/23 Interval History: Being followed for placement, no acute overnight events, tolerating diet. Review of Systems All other system reviewed and are negative. Physical Exam 2 Vital Signs: Vital Signs: Last Vital Signs Temp 98.3 F 11/10/23 07:55 Pulse 97 11/10/23 07:55 Resp 16 11/10/23 07:55 BP 133/95 H 11/10/23 07:55 Pulse Ox 96 11/10/23 07:55 O2 Del Method Room Air 11/10/23 07:55 O2 Flow Rate 2 09/17/23 12:00 BMI result Body Mass Index 49.2 Const: Other: General awake alert, in no distress anicteric sclera Neck no JVD. CVS regular rate rhythm, Respiratory lungs clear to auscultation, no respiratory distress, no wheeze, no rhonchi. Gastrointestinal abdomen soft, non tender, bowel sounds audible. Extremities no edema. Neuro non focal, speech clear. Decreased range of motion right shoulder Skin no rash Psych appropriate affect Objective Data Active Medications Acetaminophen (Acetaminophen 325 Mg Tablet) 650 mg PO Q6H PRN PRN Reason: Pain, Mild (Pain Scale 1-3) Last Admin: 11/09/23 08:43 Dose: 650 mg Documented By: OSCAR Apixaban (Apixaban 5 Mg Tablet) 5 mg PO BID [facility] Stop: 02/25/25 21:01 Last Admin: 11/10/23 07:38 Dose: 5 mg Documented By: TERRIE Aripiprazole (Aripiprazole 5 Mg Tablet) 2.5 mg PO DAILY [facility] Last Admin: 11/10/23 07:37 Dose: 2.5 mg Documented By: TERRIE Calcium Carbonate (Calcium Carbonate 750 Mg Tab.Chew) 750 mg PO Q6H PRN PRN Reason: Heartburn Last Admin: 10/06/23 20:43 Dose: 750 mg Documented By: KASI Fludrocortisone Acetate (Fludrocortisone Acetate 0.1 Mg Tablet) 0.1 mg PO DAILY [facility] Last Admin: 11/10/23 07:38 Dose: 0.1 mg Documented By: TERRIE Gabapentin (Gabapentin 100 Mg Capsule) 100 mg PO BID [facility] Last Admin: 11/10/23 07:38 Dose: 100 mg Documented By: TERRIE Glucose (Glucose Gel 15 Gm Gel..Gram.) 15 gm PO Q15M PRN; Protocol PRN Reason: per Hypoglycemia Standing Ord. Dextrose (D10) 250 mls @ 750 mls/hr IV Q15M PRN; Protocol PRN Reason: per Hypoglycemia Standing Ord. Ondansetron HCl (Ondansetron Odt 4 Mg Tab.Rapdis) 4 mg TRANSLINGU Q6H PRN PRN Reason: Nausea and Vomiting Last Admin: 10/27/23 20:01 Dose: 4 mg Documented By: HERMELINDO Polyethylene Glycol (Polyethylene Glycol 3350 17 Gm Powd.Pack) 17 gm PO DAILY [facility] Last Admin: 11/10/23 07:35 Dose: Not Given Documented By: TERRIE Non-Admin Reason: Patient Refused Sertraline HCl (Sertraline Hcl 25 Mg Tablet) 12.5 mg PO BEDTIME [facility] Last Admin: 11/09/23 21:43 Dose: 12.5 mg Documented By: HERMELINDO Sodium Bicarbonate (Sodium Bicarbonate 650 Mg Tablet) 650 mg PO BID [facility] Last Admin: 11/10/23 07:37 Dose: 650 mg Documented By: TERRIE Trazodone HCl (Trazodone Hcl 25 Mg Halftab) 25 mg PO BEDTIME [facility] Last Admin: 11/09/23 21:43 Dose: 25 mg Documented By: HERMELINDO Labs 11/03/23 05:08 11/03/23 05:08 Assessment and Plan (1) Acute DVT (deep venous thrombosis): Status: Acute Plan 53 years old male with PMH of DM2, HTN, Asthma who presented to ED After sustaining a fall and laying on the floor for 9 hours found to have severe acute kidney injury from rhabdomyolysis and hyperkalemia Acute on chronic DVT in right common femoral vein eliquis 5 bid VQ scan nondiagnostic. Chronic normocytic anemia, noted to have slight drop in hematocrit to 26, Stool guaiacs negative, normal B12 folate and iron studies s/p Procrit for possible anemia of chronic disease due to kidney disease. Sinus tachycardia baseline Acute diarrhea. Resolved gi panel negative cdif colonization but given acute diarrhea, treated with 10 days of vancomycin CHITO and severe hyperkalemia and acute metabolic acidosis due to ATN from rhabdomyolysis started on HD. Resolved permacath placed 07/16/23, underwent catheter change 09/28 stable blood pressure will DC Florinef 0.1 mg daily now with renal recovery - permcath removed 10/13. Creatinine 2.15 11/02, remains unchanged continue po sodium bicarb Hypokalemia. resolved Chronic Leg and back pain Stable continue gabapentin 100mg BID Dysphagia tolerating regular diet, monitor closely. Depression. unspecified No behavioral issues seen by psychiatry 08/23 on Abilify 2.5 mg daily low-dose since it can cause orthostasis, trazodone 25 mg at bedtime and Zoloft 12.5 mg low-dose . tolerating current medications Acute?Rhabdomyolysis /Fall resolved with volume participating with physical therapy Diabetes type 2 stable blood sugars, last hemoglobin A1c 6.1 Will DC daily blood sugar monitoring changed to q weekly/last check 11/03 was 114,will check on Nov 10 Morbid Obesity. BMI 49.2 Discussed importance of weight management as this may be contributing to worsening of other comorbidities dvt ppx - eliquis Full code reason for continued hospitalization: debilitated; safe discharge to home , community case manager arranging for safe disposition Quality Stroke Does the patient have a stroke diagnosis?: No VTE Prior VTE?: No VTE Risk Level:: Medical - moderate - high VTE Device Contraindication: N/A - Device Ordered VTE Drug Contraindication: N/A - Med Ordered
--- NOTE | 2023-11-10 15:08 | MHC.CM.PN ---
[facility] [phone] AND [phone] WITH FAILURE. CM SPOKE WITH [facility] WHO STATES FAXES ARE DOWN. CM WILL CONTINUE TO ATTEMPT TO FAX TO [facility].
[2023-11-10 15:36] VITALS: BP 131/82; PULSE 104; RESP 16; TEMP 37.3; O2SAT 95
[2023-11-10] MEDS: Acetaminophen 325 MG TABLET 650 MG PO (17:19)
[2023-11-10 19:34] VITALS: BP 135/66; PULSE 107; RESP 18; TEMP 36.7; O2SAT 97
[2023-11-10] MEDS: traZODone HCL 25 MG HALFTAB PO (20:36)
[2023-11-10] MEDS: Sertraline HCL 25 MG TABLET 12.5 MG PO (20:39)
[2023-11-11 03:56] VITALS: BP 127/78; PULSE 97; RESP 18; TEMP 36.6; O2SAT 96
[2023-11-11 08:00] VITALS: BP 149/96; PULSE 101; RESP 16; TEMP 37.2; O2SAT 96
[2023-11-11] MEDS: ARIPiprazole 5 MG TABLET 2.5 MG PO (08:50)
[2023-11-11] MEDS: Apixaban 5 MG TABLET PO ×2 (08:51→20:10)
[2023-11-11] MEDS: Fludrocortisone Acetate 0.1 MG TABLET PO (08:51)
[2023-11-11] MEDS: Gabapentin 100 MG CAPSULE PO ×2 (08:51→20:10)
[2023-11-11] MEDS: Sodium Bicarbonate 650 MG TABLET PO ×2 (08:51→20:10)
--- NOTE | 2023-11-11 11:11 | P.PNIM_ITS ---
Subjective Subjective Date of Service: 11/11/23 Interval History: Being followed for placement. Offers no acute complaints tolerating diet, ambulating and doing [id number] exercises. Review of Systems All other system reviewed and negative Physical Exam 2 Vital Signs: Vital Signs: Last Vital Signs Temp 99 F 11/11/23 08:00 Pulse 101 H 11/11/23 08:00 Resp 16 11/11/23 08:00 BP 149/96 H 11/11/23 08:00 Pulse Ox 96 11/11/23 08:00 O2 Del Method Room Air 11/11/23 08:00 O2 Flow Rate 2 09/17/23 12:00 BMI result Body Mass Index 49.2 Const: Other: General awake alert, in no distress anicteric sclera Neck no JVD. CVS regular rate rhythm, Respiratory lungs clear to auscultation, no respiratory distress, no wheeze, no rhonchi. Gastrointestinal abdomen soft, non tender, bowel sounds audible. Extremities no edema. Neuro non focal, speech clear. Decreased range of motion right shoulder Skin no rash Psych appropriate affect Objective Data Active Medications Acetaminophen (Acetaminophen 325 Mg Tablet) 650 mg PO Q6H PRN PRN Reason: Pain, Mild (Pain Scale 1-3) Last Admin: 11/10/23 17:19 Dose: 650 mg Documented By: MENDEL Apixaban (Apixaban 5 Mg Tablet) 5 mg PO BID [facility] Stop: 02/25/25 21:01 Last Admin: 11/11/23 08:51 Dose: 5 mg Documented By: ARTUR Aripiprazole (Aripiprazole 5 Mg Tablet) 2.5 mg PO DAILY [facility] Last Admin: 11/11/23 08:50 Dose: 2.5 mg Documented By: ARTUR Calcium Carbonate (Calcium Carbonate 750 Mg Tab.Chew) 750 mg PO Q6H PRN PRN Reason: Heartburn Last Admin: 10/06/23 20:43 Dose: 750 mg Documented By: KASI Fludrocortisone Acetate (Fludrocortisone Acetate 0.1 Mg Tablet) 0.1 mg PO DAILY [facility] Last Admin: 11/11/23 08:51 Dose: 0.1 mg Documented By: ARTUR Gabapentin (Gabapentin 100 Mg Capsule) 100 mg PO BID [facility] Last Admin: 11/11/23 08:51 Dose: 100 mg Documented By: ARTUR Glucose (Glucose Gel 15 Gm Gel..Gram.) 15 gm PO Q15M PRN; Protocol PRN Reason: per Hypoglycemia Standing Ord. Dextrose (D10) 250 mls @ 750 mls/hr IV Q15M PRN; Protocol PRN Reason: per Hypoglycemia Standing Ord. Ondansetron HCl (Ondansetron Odt 4 Mg Tab.Rapdis) 4 mg TRANSLINGU Q6H PRN PRN Reason: Nausea and Vomiting Last Admin: 10/27/23 20:01 Dose: 4 mg Documented By: HERMELINDO Polyethylene Glycol (Polyethylene Glycol 3350 17 Gm Powd.Pack) 17 gm PO DAILY [facility] Last Admin: 11/11/23 08:51 Dose: Not Given Documented By: ARTUR Non-Admin Reason: Patient Refused Sertraline HCl (Sertraline Hcl 25 Mg Tablet) 12.5 mg PO BEDTIME [facility] Last Admin: 11/10/23 20:39 Dose: 12.5 mg Documented By: GARY Sodium Bicarbonate (Sodium Bicarbonate 650 Mg Tablet) 650 mg PO BID [facility] Last Admin: 11/11/23 08:51 Dose: 650 mg Documented By: ARTUR Trazodone HCl (Trazodone Hcl 25 Mg Halftab) 25 mg PO BEDTIME [facility] Last Admin: 11/10/23 20:36 Dose: 25 mg Documented By: GARY Labs 11/03/23 05:08 11/03/23 05:08 Assessment and Plan (1) Acute DVT (deep venous thrombosis): Status: Acute Plan 53 years old male with PMH of DM2, HTN, Asthma who presented to ED After sustaining a fall and laying on the floor for 9 hours found to have severe acute kidney injury from rhabdomyolysis and hyperkalemia Acute on chronic DVT in right common femoral vein eliquis 5 bid VQ scan nondiagnostic. Chronic normocytic anemia, noted to have slight drop in hematocrit to 26, Stool guaiacs negative, normal B12 folate and iron studies s/p Procrit for possible anemia of chronic disease due to kidney disease. Sinus tachycardia baseline Acute diarrhea. Resolved gi panel negative cdif colonization but given acute diarrhea, treated with 10 days of vancomycin CHITO and severe hyperkalemia and acute metabolic acidosis due to ATN from rhabdomyolysis started on HD. Resolved permacath placed 07/16/23, underwent catheter change 09/28 stable blood pressure will DC Florinef 0.1 mg daily now with renal recovery - permcath removed 10/13. Creatinine 2.15 11/02, remains unchanged continue po sodium bicarb Hypokalemia. resolved Chronic Leg and back pain Stable continue gabapentin 100mg BID Dysphagia tolerating regular diet, monitor closely. Depression. unspecified No behavioral issues seen by psychiatry 08/23 on Abilify 2.5 mg daily low-dose since it can cause orthostasis, trazodone 25 mg at bedtime and Zoloft 12.5 mg low-dose . tolerating current medications Acute?Rhabdomyolysis /Fall resolved with volume participating with physical therapy Diabetes type 2 stable blood sugars, last hemoglobin A1c 6.1 Will DC daily blood sugar monitoring changed to q weekly/last check 11/03 was 114,will check on Nov 10 Morbid Obesity. 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
[2023-11-11 15:32] VITALS: BP 145/90; PULSE 104; RESP 16; TEMP 37.2; O2SAT 98
[2023-11-11 19:39] VITALS: BP 146/84; PULSE 102; RESP 16; TEMP 37.2; O2SAT 98
[2023-11-11] MEDS: traZODone HCL 25 MG HALFTAB PO (20:10)
[2023-11-11] MEDS: Sertraline HCL 25 MG TABLET 12.5 MG PO (20:10)
[2023-11-12 03:04] VITALS: BP 163/89; PULSE 124; RESP 18; TEMP 36.9; O2SAT 97
[2023-11-12 07:24] LABS: Hematocrit 25.6 % (42.0-52.0); Hemoglobin 8.2 g/dl (14.0-18.0); Mean Corpuscular Hemoglobin 31.3 pg (27.0-33.0); Mean Corpuscular Volume 97.7 fL (80.0-98.0); Mean Platelet Volume 8.6 fL (9.4-12.4); Platelet Count 461 X10*3/uL (160-400); Red Blood Count 2.62 X10*6/uL (4.60-5.80); Red Cell Distribution Width 14.1 % (11.0-16.0); White Blood Count 7.1 X10*3/uL (4.8-10.8)
[2023-11-12 07:26] LABS: Anion Gap 14 (12-20); Blood Urea Nitrogen 16 mg/dL (9-16); Calcium 8.6 mg/dL (8.4-10.2); Carbon Dioxide 23 mmol/L (22-29); Chloride 109 mmol/L (96-108); Creatinine Clr Calc Pharmacy 69.3; Estimated Glomerular Filt Rate 41; Glucose Random 86 mg/dL (60-115); Potassium 3.5 mmol/L (3.3-5.1); Sodium 142 mmol/L (135-145)
[2023-11-12 08:04] VITALS: BP 159/94; PULSE 104; RESP 18; TEMP 36.4; O2SAT 96
[2023-11-12] MEDS: Sodium Bicarbonate 650 MG TABLET PO (08:32)
[2023-11-12] MEDS: Apixaban 5 MG TABLET PO ×2 (08:32→20:09)
[2023-11-12] MEDS: ARIPiprazole 5 MG TABLET 2.5 MG PO (08:32)
[2023-11-12] MEDS: Fludrocortisone Acetate 0.1 MG TABLET PO (08:32)
[2023-11-12] MEDS: Gabapentin 100 MG CAPSULE PO ×2 (08:32→20:09)
--- NOTE | 2023-11-12 10:10 | P.PNNP_ITS ---
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 Being followed for placement. Examined this morning, pt denies acute changes or concerns. Reports he is urinating every few hours comfortably Good appetite, eating well No events overnight. ongoing anemia, most recent H&H 8.2/25.6 today creatinine has stabilized, most recent 2.15 today Physical Exam 2 Vital Signs: Vital Signs: Last Vital Signs Temp 97.5 F 11/12/23 08:04 Pulse 104 H 11/12/23 08:04 Resp 18 11/12/23 08:04 BP 159/94 H 11/12/23 08:04 Pulse Ox 96 11/12/23 08:04 O2 Del Method Room Air 11/12/23 08:04 O2 Flow Rate 2 09/17/23 12:00 BMI result Body Mass Index 49.2 Const: General: comfortable, no acute distress and alert Resp: Effort & Inspection: normal respiratory effort Auscultation: clear to auscultation bilaterally Cardio: Jugular venous distension: no JVD Palpation: normal PMI Rate: r egular rate Rhythm: regular rhythm Heart sounds: S1 normal heart sound present and S2 normal heart sound present GI: Palpation (GI): Soft to palpation and nontender : General: Yes no CVA tenderness Back/Spine/Pelvis: Back: no CVA tenderness Skin: Rashes: no rashes Objective Data Labs 11/12/23 05:15 11/12/23 05:15 Labs: Laboratory Results - last 24 hr 11/12/23 05:15 WBC 7.1 RBC 2.62 L Hgb 8.2 L Hct 25.6 L MCV 97.7 MCH 31.3 MCHC 32.0 RDW 14.1 Plt Count 461 H MPV 8.6 L Absolute Nucleated RBC 0.000 Nucleated RBC % (auto) 0.0 Sodium 142 Potassium 3.5 Chloride 109 H Carbon Dioxide 23 Anion Gap 14 BUN 16 Creatinine 1.76 H Estim Creat Clear Calc 69.3 Estimated GFR 41 Random Glucose 86 Calcium 8.6 D Microbiology Microbiology Results: Microbiology 07/20/23 22:49 Blood - Venous Blood Culture - Final No growth after 5 days. 07/20/23 22:49 Blood - Venous Blood Culture - Final No growth after 5 days. 07/12/23 12:30 Blood - Venous Blood Culture - Final No growth after 5 days. 07/12/23 12:15 Blood - Venous Blood Culture - Final No growth after 5 days. 07/12/23 Unknown Urine Catheterized - Straight Catheter Urine Culture - Final No growth. 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 Recovering now, creatinine stabilizing (2.15 11/02). Discontinue Flornief 0.1mg PO daily Discontinue NaHCO3 PO 650mg BID will montior CBC and iron studies and administer procrit if needed. C/W rest of current management Time Spent With Patient Time: Total time managing care of this patient today ____ minutes. Progress Note: Quality Stroke Does the patient have a stroke diagnosis?: No
--- NOTE | 2023-11-12 10:46 | HO.PM.IMPN ---
Subjective Subjective Date of Service: 11/12/23 Interval History: Being followed for placement Requesting for wheelchair for discharge No acute complaints tolerating diet/blood sugar 86 Review of Systems All other system reviewed and are negative. Constitutional Constitutional: Reports as per HPI, Reports no additional constitutional complaints, Denies chills, Denies fever(s) and Reports malaise Eyes Eyes: Reports as per HPI and Reports no additional eye complaints ENT Ears, Nose, Mouth, and Throat: Denies system reviewed and no additional complaints, except as documented, Reports as per HPI and Denies dizziness Cardiovascular Cardiovascular: Reports as per HPI, Reports no additional cardiovascular complaints, Denies acrocyanosis, Denies cool extremities, Denies chest pain, Denies leg edema, Denies lightheadedness, Denies palpitations and Denies dyspnea Respiratory Respiratory: Reports as per HPI, Reports no additional respiratory complaints, Denies cough and Denies dyspnea Gastrointestinal Gastrointestinal: Reports as per HPI, Denies no additional gastrointestinal complaints, Denies abdominal pain, Reports diarrhea and Reports nausea Genitourinary Genitourinary: Reports no additional male genitourinary complaints and Reports as per HPI Musculoskeletal Musculoskeletal: Reports no additional musculoskeletal complaints, Reports as per HPI, Reports myalgias and Reports stiffness Integumentary/Breasts Skin/Breast: Reports no additional skin complaints Neurologic Neurologic: Reports system reviewed and no additional complaints, except as documented, Reports as per HPI and Denies dizziness Psychiatric Psychiatric: Reports no additional psychiatric complaints and Reports as per HPI Endocrine Endocrine: Reports no additional endocrine complaints, Reports as per HPI and Denies palpitations Hematologic/Lymphatic Hematologic/Lymphatic: Reports no additional hematologic/lymphatic complaints and Reports as per HPI Allergic/Immunologic Allergic/Immunologic: Reports no additional allergic/immunologic complaints and Reports as per HPI Physical Exam Vital Signs: Vital Signs: Last Vital Signs Temp 97.5 F 11/12/23 08:04 Pulse 104 H 11/12/23 08:04 Resp 18 11/12/23 08:04 BP 159/94 H 11/12/23 08:04 Pulse Ox 96 11/12/23 08:04 O2 Del Method Room Air 11/12/23 08:04 O2 Flow Rate 2 09/17/23 12:00 BMI result Body Mass Index 49.2 Const: Other: General awake alert, in no distress anicteric sclera Neck no JVD. CVS regular rate rhythm, Respiratory lungs clear to auscultation, no respiratory distress, no wheeze, no rhonchi. Gastrointestinal abdomen soft, non tender, bowel sounds audible. Extremities no edema. Neuro non focal, speech clear. Decreased range of motion right shoulder Skin no rash Psych appropriate affect Objective Data Active Medications Acetaminophen (Acetaminophen 325 Mg Tablet) 650 mg PO Q6H PRN PRN Reason: Pain, Mild (Pain Scale 1-3) Last Admin: 11/10/23 17:19 Dose: 650 mg Documented By: MENDEL Apixaban (Apixaban 5 Mg Tablet) 5 mg PO BID [facility] Stop: 02/25/25 21:01 Last Admin: 11/12/23 08:32 Dose: 5 mg Documented By: ARTUR Aripiprazole (Aripiprazole 5 Mg Tablet) 2.5 mg PO DAILY [facility] Last Admin: 11/12/23 08:32 Dose: 2.5 mg Documented By: ARTUR Calcium Carbonate (Calcium Carbonate 750 Mg Tab.Chew) 750 mg PO Q6H PRN PRN Reason: Heartburn Last Admin: 10/06/23 20:43 Dose: 750 mg Documented By: KASI Fludrocortisone Acetate (Fludrocortisone Acetate 0.1 Mg Tablet) 0.1 mg PO DAILY [facility] Last Admin: 11/12/23 08:32 Dose: 0.1 mg Documented By: ARTUR Gabapentin (Gabapentin 100 Mg Capsule) 100 mg PO BID [facility] Last Admin: 11/12/23 08:32 Dose: 100 mg Documented By: ARTUR Glucose (Glucose Gel 15 Gm Gel..Gram.) 15 gm PO Q15M PRN; Protocol PRN Reason: per Hypoglycemia Standing Ord. Dextrose (D10) 250 mls @ 750 mls/hr IV Q15M PRN; Protocol PRN Reason: per Hypoglycemia Standing Ord. Ondansetron HCl (Ondansetron Odt 4 Mg Tab.Rapdis) 4 mg TRANSLINGU Q6H PRN PRN Reason: Nausea and Vomiting Last Admin: 10/27/23 20:01 Dose: 4 mg Documented By: HERMELINDO Polyethylene Glycol (Polyethylene Glycol 3350 17 Gm Powd.Pack) 17 gm PO DAILY [facility] Last Admin: 11/12/23 08:33 Dose: Not Given Documented By: HO.[email or web address] Non-Admin Reason: Patient Refused Sertraline HCl (Sertraline Hcl 25 Mg Tablet) 12.5 mg PO BEDTIME [facility] Last Admin: 11/11/23 20:10 Dose: 12.5 mg Documented By: CARLOTTA Sodium Bicarbonate (Sodium Bicarbonate 650 Mg Tablet) 650 mg PO BID [facility] Last Admin: 11/12/23 08:32 Dose: 650 mg Documented By: ARTUR Trazodone HCl (Trazodone Hcl 25 Mg Halftab) 25 mg PO BEDTIME [facility] Last Admin: 11/11/23 20:10 Dose: 25 mg Documented By: CARLOTTA Labs 11/12/23 05:15 11/12/23 05:15 Labs: Laboratory Results - last 24 hr 11/12/23 05:15 MCV 97.7 MCH 31.3 MCHC 32.0 RDW 14.1 Plt Count 461 H MPV 8.6 L Absolute Nucleated RBC 0.000 Nucleated RBC % (auto) 0.0 Anion Gap 14 Estim Creat Clear Calc 69.3 Estimated GFR 41 Random Glucose 86 Calcium 8.6 D Assessment and Plan (1) Acute DVT (deep venous thrombosis): Status: Acute Plan 53 years old male with PMH of DM2, HTN, Asthma who presented to ED After sustaining a fall and laying on the floor for 9 hours found to have severe acute kidney injury from rhabdomyolysis and hyperkalemia Acute on chronic DVT in right common femoral vein eliquis 5 bid VQ scan nondiagnostic. Chronic normocytic anemia, noted to have slight drop in hematocrit to 26, Stool guaiacs negative, normal B12 folate and iron studies s/p Procrit for possible anemia of chronic disease due to kidney disease. Sinus tachycardia baseline Acute diarrhea. Resolved gi panel negative cdif colonization but given acute diarrhea, treated with 10 days of vancomycin CHITO and severe hyperkalemia and acute metabolic acidosis due to ATN from rhabdomyolysis started on HD. Resolved permacath placed 07/16/23, underwent catheter change 09/28 stable blood pressure will DC Florinef 0.1 mg daily now with renal recovery - permcath removed 10/13. Creatinine 2.15 11/02, creatinine improved to 1.76 on 11/11 continue po sodium bicarb Hypokalemia. resolved Chronic Leg and back pain Stable continue gabapentin 100mg BID Dysphagia tolerating regular diet, monitor closely. Depression. unspecified No behavioral issues seen by psychiatry 08/23 on Abilify 2.5 mg daily low-dose since it can cause orthostasis, trazodone 25 mg at bedtime and Zoloft 12.5 mg low-dose . tolerating current medications Acute?Rhabdomyolysis /Fall resolved with volume participating with physical therapy Diabetes type 2 stable blood sugars, last hemoglobin A1c 6.1 Will DC daily blood sugar monitoring changed to q weekly/last check 11/03 was 114,BS 86 on Oct 3 Morbid Obesity. BMI 49.2 Discussed importance of weight management as this may be contributing to worsening of other comorbidities dvt ppx - eliquis Full code reason for continued hospitalization: debilitated; safe discharge to home , mental health case manager arranging for safe disposition Quality Stroke Does the patient have a stroke diagnosis?: No VTE Prior VTE?: No VTE Risk Level:: Medical - moderate - high VTE Device Contraindication: N/A - Device Ordered VTE Drug Contraindication: N/A - Med Ordered
[2023-11-12 16:11] VITALS: BP 150/97; PULSE 108; RESP 18; TEMP 36.5; O2SAT 100
[2023-11-12 19:14] VITALS: BP 147/96; PULSE 100; RESP 18; TEMP 37.3; O2SAT 98
[2023-11-12] MEDS: Acetaminophen 325 MG TABLET 650 MG PO (20:08)
[2023-11-12] MEDS: traZODone HCL 25 MG HALFTAB PO (20:09)
[2023-11-12] MEDS: Sertraline HCL 25 MG TABLET 12.5 MG PO (20:09)
[2023-11-13 03:39] VITALS: BP 124/72; PULSE 102; TEMP 37.2; O2SAT 95
[2023-11-13 07:37] VITALS: BP 109/62; PULSE 76; RESP 18; TEMP 36.5; O2SAT 93
--- NOTE | 2023-11-13 07:37 | HO.PM.IMPN ---
Subjective Subjective Date of Service: 11/13/23 Interval History: Awaiting placement, no new isues Review of Systems All other system reviewed and are negative. Physical Exam Vital Signs: Vital Signs: Last Vital Signs Temp 98.9 F 11/13/23 03:39 Pulse 102 H 11/13/23 03:39 Resp 18 11/12/23 19:14 BP 124/72 11/13/23 03:39 Pulse Ox 95 11/13/23 03:39 O2 Del Method Room Air 11/13/23 03:39 O2 Flow Rate 2 09/17/23 12:00 BMI result Body Mass Index 49.2 Const: Other: General awake alert, in no distress anicteric sclera Neck no JVD. CVS regular rate rhythm, Respiratory lungs clear to auscultation, no respiratory distress, no wheeze, no rhonchi. Gastrointestinal abdomen soft, non tender, bowel sounds audible. Extremities no edema. Neuro non focal, speech clear. Decreased range of motion right shoulder Skin no rash Psych appropriate affect Objective Data Active Medications Acetaminophen (Acetaminophen 325 Mg Tablet) 650 mg PO Q6H PRN PRN Reason: Pain, Mild (Pain Scale 1-3) Last Admin: 11/12/23 20:08 Dose: 650 mg Documented By: LAURYN Apixaban (Apixaban 5 Mg Tablet) 5 mg PO BID [facility] Stop: 02/25/25 21:01 Last Admin: 11/12/23 20:09 Dose: 5 mg Documented By: LAURYN Aripiprazole (Aripiprazole 5 Mg Tablet) 2.5 mg PO DAILY [facility] Last Admin: 11/12/23 08:32 Dose: 2.5 mg Documented By: ARTUR Calcium Carbonate (Calcium Carbonate 750 Mg Tab.Chew) 750 mg PO Q6H PRN PRN Reason: Heartburn Last Admin: 10/06/23 20:43 Dose: 750 mg Documented By: KASI Gabapentin (Gabapentin 100 Mg Capsule) 100 mg PO BID [facility] Last Admin: 11/12/23 20:09 Dose: 100 mg Documented By: LAURYN Glucose (Glucose Gel 15 Gm Gel..Gram.) 15 gm PO Q15M PRN; Protocol PRN Reason: per Hypoglycemia Standing Ord. Dextrose (D10) 250 mls @ 750 mls/hr IV Q15M PRN; Protocol PRN Reason: per Hypoglycemia Standing Ord. Ondansetron HCl (Ondansetron Odt 4 Mg Tab.Rapdis) 4 mg TRANSLINGU Q6H PRN PRN Reason: Nausea and Vomiting Last Admin: 10/27/23 20:01 Dose: 4 mg Documented By: HERMELINDO Polyethylene Glycol (Polyethylene Glycol 3350 17 Gm Powd.Pack) 17 gm PO DAILY [facility] Last Admin: 11/12/23 08:33 Dose: Not Given Documented By: ARTUR Non-Admin Reason: Patient Refused Sertraline HCl (Sertraline Hcl 25 Mg Tablet) 12.5 mg PO BEDTIME [facility] Last Admin: 11/12/23 20:09 Dose: 12.5 mg Documented By: LAURYN Trazodone HCl (Trazodone Hcl 25 Mg Halftab) 25 mg PO BEDTIME [facility] Last Admin: 11/12/23 20:09 Dose: 25 mg Documented By: LAURYN Labs 11/12/23 05:15 11/12/23 05:15 Assessment and Plan (1) Acute DVT (deep venous thrombosis): Status: Acute Plan 53 years old male with PMH of DM2, HTN, Asthma who presented to ED After sustaining a fall and laying on the floor for 9 hours found to have severe acute kidney injury from rhabdomyolysis and hyperkalemia Acute on chronic DVT in right common femoral vein, -VQ scan nondiagnostic for PE -eliquis 5 bid Chronic normocytic anemia, noted to have slight drop in hematocrit to 26, Stool guaiacs negative, normal B12 folate and iron studies s/p Procrit for possible anemia of chronic disease due to kidney disease. Sinus tachycardia baseline Acute diarrhea. Resolved gi panel negative cdif colonization but given acute diarrhea, treated with 10 days of vancomycin CHITO and severe hyperkalemia and acute metabolic acidosis due to ATN from rhabdomyolysis started on HD. Resolved permacath placed 07/16/23, underwent catheter change 09/28 stable blood pressure will DC Florinef 0.1 mg daily now with renal recovery - permcath removed 10/13. Creatinine 2.15 11/02, creatinine improved to 1.76 on 11/11 continue po sodium bicarb Hypokalemia. resolved Chronic Leg and back pain Stable continue gabapentin 100mg BID Dysphagia tolerating regular diet, monitor closely. Depression. unspecified No behavioral issues seen by psychiatry 08/23 on Abilify 2.5 mg daily low-dose since it can cause orthostasis, trazodone 25 mg at bedtime and Zoloft 12.5 mg low-dose . tolerating current medications Acute?Rhabdomyolysis /Fall resolved with volume participating with physical therapy Diabetes type 2 stable blood sugars, last hemoglobin A1c 6.1 Will DC daily blood sugar monitoring changed to q weekly/last check 11/03 was 114,BS 86 on Oct 3 Morbid Obesity. 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
[2023-11-13] MEDS: ARIPiprazole 5 MG TABLET 2.5 MG PO (08:59)
[2023-11-13] MEDS: Apixaban 5 MG TABLET PO ×2 (08:59→20:15)
[2023-11-13] MEDS: Gabapentin 100 MG CAPSULE PO ×2 (08:59→20:15)
[2023-11-13 15:06] VITALS: BP 156/97; PULSE 104; RESP 16; TEMP 36.6; O2SAT 94
[2023-11-13 19:14] VITALS: BP 137/84; PULSE 104; RESP 14; TEMP 36.8; O2SAT 98
[2023-11-13] MEDS: Sertraline HCL 25 MG TABLET 12.5 MG PO (20:15)
[2023-11-13] MEDS: traZODone HCL 25 MG HALFTAB PO (20:15)
[2023-11-14 03:00] VITALS: BP 133/84; PULSE 98; RESP 18; TEMP 36.6; O2SAT 94
[2023-11-14 07:22] VITALS: BP 131/75; PULSE 105; RESP 18; TEMP 36.6; O2SAT 95
[2023-11-14] MEDS: ARIPiprazole 5 MG TABLET 2.5 MG PO (08:16)
[2023-11-14] MEDS: Gabapentin 100 MG CAPSULE PO ×2 (08:16→21:07)
[2023-11-14] MEDS: Apixaban 5 MG TABLET PO ×2 (08:16→21:07)
--- NOTE | 2023-11-14 13:22 | P.PNIM_ITS ---
Subjective Subjective Date of Service: 11/14/23 Interval History: no new issues or complaints Review of Systems Review of Systems: Yes all other systems are reviewed and are negative Physical Exam 2 Vital Signs: Vital Signs: Last Vital Signs Temp 97.8 F 11/14/23 07:22 Pulse 105 H 11/14/23 07:22 Resp 18 11/14/23 07:22 BP 131/75 11/14/23 07:22 Pulse Ox 95 11/14/23 07:22 O2 Del Method Room Air 11/14/23 07:22 O2 Flow Rate 2 09/17/23 12:00 BMI result Body Mass Index 49.2 Gen: in no acute distress HEENT: sclera anicteric, moist mucus membranes Neck: supple Lungs: clear to auscultation bilaterally Heart: regular rate and rhythm, no murmurs Abd: soft, non-tender, non-distended, obese Ext: no edema Skin: warm/well-perfused Neuro: alert and oriented x3, no focal findings Psych: appropriate affect Objective Data Active Medications Acetaminophen (Acetaminophen 325 Mg Tablet) 650 mg PO Q6H PRN PRN Reason: Pain, Mild (Pain Scale 1-3) Last Admin: 11/12/23 20:08 Dose: 650 mg Documented By: LAURYN Apixaban (Apixaban 5 Mg Tablet) 5 mg PO BID [facility] Stop: 02/25/25 21:01 Last Admin: 11/14/23 08:16 Dose: 5 mg Documented By: CHUY Aripiprazole (Aripiprazole 5 Mg Tablet) 2.5 mg PO DAILY [facility] Last Admin: 11/14/23 08:16 Dose: 2.5 mg Documented By: CHUY Calcium Carbonate (Calcium Carbonate 750 Mg Tab.Chew) 750 mg PO Q6H PRN PRN Reason: Heartburn Last Admin: 10/06/23 20:43 Dose: 750 mg Documented By: KASI Gabapentin (Gabapentin 100 Mg Capsule) 100 mg PO BID [facility] Last Admin: 11/14/23 08:16 Dose: 100 mg Documented By: CHUY Glucose (Glucose Gel 15 Gm Gel..Gram.) 15 gm PO Q15M PRN; Protocol PRN Reason: per Hypoglycemia Standing Ord. Dextrose (D10) 250 mls @ 750 mls/hr IV Q15M PRN; Protocol PRN Reason: per Hypoglycemia Standing Ord. Ondansetron HCl (Ondansetron Odt 4 Mg Tab.Rapdis) 4 mg TRANSLINGU Q6H PRN PRN Reason: Nausea and Vomiting Last Admin: 10/27/23 20:01 Dose: 4 mg Documented By: HERMELINDO Polyethylene Glycol (Polyethylene Glycol 3350 17 Gm Powd.Pack) 17 gm PO DAILY [facility] Last Admin: 11/14/23 08:15 Dose: Not Given Documented By: CHUY Non-Admin Reason: Patient Refused Sertraline HCl (Sertraline Hcl 25 Mg Tablet) 12.5 mg PO BEDTIME [facility] Last Admin: 11/13/23 20:15 Dose: 12.5 mg Documented By: LAURYN Trazodone HCl (Trazodone Hcl 25 Mg Halftab) 25 mg PO BEDTIME [facility] Last Admin: 11/13/23 20:15 Dose: 25 mg Documented By: LAURYN Labs 11/12/23 05:15 11/12/23 05:15 Assessment and Plan (1) Acute DVT (deep venous thrombosis): Status: Acute Plan [id number] 53yo M with DM2, HTN, asthma presented to ED after falling and on the ground x9hr admitted for CHITO + hyperK from rhabdomyolysis acute/chronic DVT R CFV - apixaban 5 mg bid; VQ nondiagnostic for PE chronic normocytic anemia - negative FOBT, normal B12/FA/iron, s/p epo for anemia of chronic disease sinus tachycardia - resolved acute diarrhea - resolved; GI panel negative; Cdiff colonization but was treated with 10d of vancomycin given symptoms CHITO/severe hyperK/acute metabolic acidosis due to ATN from rhabdomyolysis - was dialyzed; Permacath had been placed 07/16/23 and changed 09/29/23, removed 10/14/23 due to renal recovery, SCr continues to improve - off fludrocortisone + bicarbonate supplementation hypoK - resolved chronic leg/back pain - gabapentin dysphagia - resolved; tolerating regular diet mood disorder - continue home medications - continue aripiprazole, trazodone, sertraline; Psyhc consulted 08/24/23 DM2, A1c 6.1 - stable blood glucose morbid obesity - diet/exercise counseling VTE ppx - apixaban dispo - plan home with VNA In my clinical judgment, the patient requires continued inpatient hospitalization for the following reasons: arranging VNA services Total time managing care of this patient today: 35 minutes. Quality Stroke Does the patient have a stroke diagnosis?: No VTE Prior VTE?: No VTE Risk Level:: Medical - moderate - high VTE Device Contraindication: N/A - Device Ordered VTE Drug Contraindication: N/A - Med Ordered
[2023-11-14 15:36] VITALS: BP 135/73; PULSE 94; RESP 18; TEMP 36.6; O2SAT 97
[2023-11-14 19:46] VITALS: BP 138/85; PULSE 97; RESP 18; TEMP 36.3; O2SAT 97
[2023-11-14] MEDS: traZODone HCL 25 MG HALFTAB PO (21:07)
[2023-11-14] MEDS: Sertraline HCL 25 MG TABLET 12.5 MG PO (21:07)
[2023-11-15 03:21] VITALS: BP 133/64; PULSE 106; RESP 20; TEMP 36.6; O2SAT 96
[2023-11-15 06:34] LABS: Hematocrit 27.5 % (42.0-52.0); Hemoglobin 8.7 g/dl (14.0-18.0); Mean Corpuscular HGB Conc 31.6 g/dl (31.0-36.0); Mean Corpuscular Hemoglobin 31.1 pg (27.0-33.0); Mean Corpuscular Volume 98.2 fL (80.0-98.0); Mean Platelet Volume 8.7 fL (9.4-12.4); Platelet Count 348 X10*3/uL (160-400); Red Cell Distribution Width 13.5 % (11.0-16.0); White Blood Count 6.6 X10*3/uL (4.8-10.8)
[2023-11-15 06:42] LABS: Anion Gap 12 (12-20); Blood Urea Nitrogen 16 mg/dL (9-16); Carbon Dioxide 22 mmol/L (22-29); Chloride 110 mmol/L (96-108); Creatinine Clr Calc Pharmacy 61.6; Estimated Glomerular Filt Rate 36; Glucose Random 90 mg/dL (60-115); Potassium 3.7 mmol/L (3.3-5.1); Sodium 140 mmol/L (135-145)
[2023-11-15 07:29] VITALS: BP 158/92; PULSE 108; RESP 18; TEMP 36.7; O2SAT 94
[2023-11-15] MEDS: Apixaban 5 MG TABLET PO ×2 (09:11→20:42)
[2023-11-15] MEDS: ARIPiprazole 5 MG TABLET 2.5 MG PO (09:12)
[2023-11-15] MEDS: Gabapentin 100 MG CAPSULE PO ×2 (09:12→20:41)
[2023-11-15] MEDS: Acetaminophen 325 MG TABLET 650 MG PO ×2 (09:13→21:07)
--- NOTE | 2023-11-15 11:40 | HO.PM.IMPN ---
Subjective Subjective Date of Service: 11/15/23 Interval History: no new events no new complaints Physical Exam Vital Signs: Vital Signs: Last Vital Signs Temp 98.1 F 11/15/23 07:29 Pulse 108 H 11/15/23 07:29 Resp 18 11/15/23 07:29 BP 158/92 H 11/15/23 07:29 Pulse Ox 94 11/15/23 07:29 O2 Del Method Room Air 11/15/23 07:29 O2 Flow Rate 2 09/17/23 12:00 BMI result Body Mass Index 49.2 Gen: in no acute distress HEENT: sclera anicteric, moist mucus membranes Neck: supple Lungs: clear to auscultation bilaterally Heart: regular rate and rhythm, no murmurs Abd: soft, non-tender, non-distended, obese Ext: no edema Skin: warm/well-perfused Neuro: alert and oriented x3, no focal findings Psych: appropriate affect Objective Data Active Medications Acetaminophen (Acetaminophen 325 Mg Tablet) 650 mg PO Q6H PRN PRN Reason: Pain, Mild (Pain Scale 1-3) Last Admin: 11/15/23 09:13 Dose: 650 mg Documented By: LAVON Apixaban (Apixaban 5 Mg Tablet) 5 mg PO BID [facility] Stop: 02/25/25 21:01 Last Admin: 11/15/23 09:11 Dose: 5 mg Documented By: LAVON Aripiprazole (Aripiprazole 5 Mg Tablet) 2.5 mg PO DAILY [facility] Last Admin: 11/15/23 09:12 Dose: 2.5 mg Documented By: LAVON Calcium Carbonate (Calcium Carbonate 750 Mg Tab.Chew) 750 mg PO Q6H PRN PRN Reason: Heartburn Last Admin: 10/06/23 20:43 Dose: 750 mg Documented By: KASI Gabapentin (Gabapentin 100 Mg Capsule) 100 mg PO BID [facility] Last Admin: 11/15/23 09:12 Dose: 100 mg Documented By: LAVON Glucose (Glucose Gel 15 Gm Gel..Gram.) 15 gm PO Q15M PRN; Protocol PRN Reason: per Hypoglycemia Standing Ord. Dextrose (D10) 250 mls @ 750 mls/hr IV Q15M PRN; Protocol PRN Reason: per Hypoglycemia Standing Ord. Ondansetron HCl (Ondansetron Odt 4 Mg Tab.Rapdis) 4 mg TRANSLINGU Q6H PRN PRN Reason: Nausea and Vomiting Last Admin: 10/27/23 20:01 Dose: 4 mg Documented By: HERMELINDO Polyethylene Glycol (Polyethylene Glycol 3350 17 Gm Powd.Pack) 17 gm PO DAILY [facility] Last Admin: 11/15/23 09:12 Dose: Not Given Documented By: LAVON Non-Admin Reason: BM this morning Sertraline HCl (Sertraline Hcl 25 Mg Tablet) 12.5 mg PO BEDTIME [facility] Last Admin: 11/14/23 21:07 Dose: 12.5 mg Documented By: GARY Trazodone HCl (Trazodone Hcl 25 Mg Halftab) 25 mg PO BEDTIME [facility] Last Admin: 11/14/23 21:07 Dose: 25 mg Documented By: GARY Labs 11/15/23 05:15 11/15/23 05:15 Labs: Laboratory Results - last 24 hr 11/15/23 05:15 MCV 98.2 H MCH 31.1 MCHC 31.6 RDW 13.5 Plt Count 348 MPV 8.7 L Absolute Nucleated RBC 0.000 Nucleated RBC % (auto) 0.0 Anion Gap 12 Estim Creat Clear Calc 61.6 Estimated GFR 36 Random Glucose 90 Calcium 9.0 Assessment and Plan (1) Acute DVT (deep venous thrombosis): Status: Acute Plan [id number] 53yo M with DM2, HTN, asthma presented to ED after falling and on the ground x9hr admitted for CHITO + hyperK from rhabdomyolysis acute/chronic DVT R CFV - apixaban 5 mg bid; VQ nondiagnostic for PE chronic normocytic anemia - negative FOBT, normal B12/FA/iron, s/p epo for anemia of chronic disease sinus tachycardia - resolved acute diarrhea - resolved; GI panel negative; Cdiff colonization but was treated with 10d of vancomycin given symptoms CHITO/severe hyperK/acute metabolic acidosis due to ATN from rhabdomyolysis - was dialyzed; Permacath had been placed 07/16/23 and changed 09/29/23, removed 10/14/23 due to renal recovery, SCr stable <2 - off fludrocortisone + bicarbonate supplementation - outpt f/u with [facility] [place] [facility] hypoK - resolved chronic leg/back pain - gabapentin dysphagia - resolved; tolerating regular diet mood disorder - continue home medications - continue aripiprazole, trazodone, sertraline; Psyhc consulted 08/24/23 DM2, A1c 6.1 - stable blood glucose morbid obesity - diet/exercise counseling VTE ppx - apixaban dispo - per last PT/OT evals STR/home with 31/08 careCLARICE working on this In my clinical judgment, the patient requires continued inpatient hospitalization for the following reasons: safe disposition Total time managing care of this patient today: 25 minutes. Quality Stroke Does the patient have a stroke diagnosis?: No VTE Prior VTE?: No VTE Risk Level:: Medical - moderate - high VTE Device Contraindication: N/A - Device Ordered VTE Drug Contraindication: N/A - Med Ordered
--- NOTE | 2023-11-15 12:51 | P.PNNP_ITS ---
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 Being followed for placement. Examined this morning, pt denies acute changes or concerns. Reports he is urinating every few hours comfortably Good appetite, eating well No events overnight. ongoing anemia, most recent H&H 8.2/25.6 today creatinine has stabilized, most recent 2.15 today Physical Exam 2 Vital Signs: Vital Signs: Last Vital Signs Temp 98.1 F 11/15/23 07:29 Pulse 108 H 11/15/23 07:29 Resp 18 11/15/23 07:29 BP 158/92 H 11/15/23 07:29 Pulse Ox 94 11/15/23 07:29 O2 Del Method Room Air 11/15/23 07:29 O2 Flow Rate 2 09/17/23 12:00 BMI result Body Mass Index 49.2 Const: General: comfortable, no acute distress and alert Resp: Effort & Inspection: normal respiratory effort Auscultation: clear to auscultation bilaterally Cardio: Jugular venous distension: no JVD Palpation: normal PMI Rate: r egular rate Rhythm: regular rhythm Heart sounds: S1 normal heart sound present and S2 normal heart sound present GI: Palpation (GI): Soft to palpation and nontender : General: Yes no CVA tenderness Back/Spine/Pelvis: Back: no CVA tenderness Skin: Rashes: no rashes Objective Data Labs 11/15/23 05:15 11/15/23 05:15 Labs: Laboratory Results - last 24 hr 11/15/23 05:15 WBC 6.6 RBC 2.80 L Hgb 8.7 L Hct 27.5 L MCV 98.2 H MCH 31.1 MCHC 31.6 RDW 13.5 Plt Count 348 MPV 8.7 L Absolute Nucleated RBC 0.000 Nucleated RBC % (auto) 0.0 Sodium 140 Potassium 3.7 Chloride 110 H Carbon Dioxide 22 Anion Gap 12 BUN 16 Creatinine 1.98 H Estim Creat Clear Calc 61.6 Estimated GFR 36 Random Glucose 90 Calcium 9.0 Microbiology Microbiology Results: Microbiology 07/20/23 22:49 Blood - Venous Blood Culture - Final No growth after 5 days. 07/20/23 22:49 Blood - Venous Blood Culture - Final No growth after 5 days. 07/12/23 12:30 Blood - Venous Blood Culture - Final No growth after 5 days. 07/12/23 12:15 Blood - Venous Blood Culture - Final No growth after 5 days. 07/12/23 Unknown Urine Catheterized - Straight Catheter Urine Culture - Final No growth. 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 Recovering now, creatinine stabilizing (2.15 11/02). will montior CBC and iron studies and administer procrit if needed. continue to monitor blood pressures, accetpable for now C/W rest of current management Time Spent With Patient Time: Total time managing care of this patient today ____ minutes. Progress Note: Quality Stroke Does the patient have a stroke diagnosis?: No
--- NOTE | 2023-11-15 15:20 | MHC.CM.PN ---
CM MET WITH PT TO DISCUSS DC PLANNING PT CONTINUES TO REPORT HE IS GOING HOME AT DC AND NOT INTERESTED IN STR HE STATES HE IS DOING THINGS INDEPENDENTLY HERE INCLUDING WALKING IN THE [place] AND ALTHOUGH HE AGREES HE NEEDS HELP AT HOME, HE DOES NOT THINK HE NEEDS SOMEONE THERE / PT IS AGREEABLE TO VNA AND AWARE THE CURRENT BARRIER IS THE RECOMMENDATIONS FOR STR AND 31/08 CARE FROM PT/OT, CAUSING VN AGENCIES TO QUESTION HIS ABILITY TO BE HOME SUCCESSFULLY HE IS AWARE A NEW OT EVAL WAS ORDERED AND REFERRALS WILL BE RESUBMITTED FOR VNA ONCE IT IS COMPLETED
[2023-11-15 16:00] VITALS: BP 138/93; PULSE 103; RESP 18; TEMP 36.6; O2SAT 96
[2023-11-15 19:40] VITALS: BP 134/93; PULSE 104; RESP 16; TEMP 37.7; O2SAT 95
[2023-11-15] MEDS: Sertraline HCL 25 MG TABLET 12.5 MG PO (20:41)
[2023-11-15] MEDS: traZODone HCL 25 MG HALFTAB PO (21:07)
[2023-11-16 03:21] VITALS: BP 126/81; PULSE 103; RESP 18; TEMP 36.8; O2SAT 96
[2023-11-16 07:30] VITALS: BP 148/95; PULSE 95; RESP 18; TEMP 36.3; O2SAT 96
[2023-11-16] MEDS: ARIPiprazole 5 MG TABLET 2.5 MG PO (07:30)
[2023-11-16] MEDS: Apixaban 5 MG TABLET PO ×2 (07:30→19:56)
[2023-11-16] MEDS: Gabapentin 100 MG CAPSULE PO ×2 (07:30→19:55)
[2023-11-16] MEDS: Acetaminophen 325 MG TABLET 650 MG PO (08:46)
--- NOTE | 2023-11-16 10:36 | P.PNIM_ITS ---
Subjective Subjective Date of Service: 11/16/23 Interval History: refuses STR, wants to go home, awaiting insurance to cover VNA services Review of Systems Review of Systems: Yes all other systems are reviewed and are negative Physical Exam 2 Vital Signs: Vital Signs: Last Vital Signs Temp 97.3 F 11/16/23 07:30 Pulse 95 11/16/23 07:30 Resp 18 11/16/23 07:30 BP 148/95 H 11/16/23 07:30 Pulse Ox 96 11/16/23 07:30 O2 Del Method Room Air 11/16/23 07:30 O2 Flow Rate 2 09/17/23 12:00 BMI result Body Mass Index 49.2 Gen: in no acute distress HEENT: sclera anicteric, moist mucus membranes Neck: supple Lungs: clear to auscultation bilaterally Heart: regular rate and rhythm, no murmurs Abd: soft, non-tender, non-distended, obese Ext: no edema Skin: warm/well-perfused Neuro: alert and oriented x3, no focal findings Psych: appropriate affect Objective Data Active Medications Acetaminophen (Acetaminophen 325 Mg Tablet) 650 mg PO Q6H PRN PRN Reason: Pain, Mild (Pain Scale 1-3) Last Admin: 11/16/23 08:46 Dose: 650 mg Documented By: KARIME Apixaban (Apixaban 5 Mg Tablet) 5 mg PO BID [facility] Stop: 02/25/25 21:01 Last Admin: 11/16/23 07:30 Dose: 5 mg Documented By: KARIME Aripiprazole (Aripiprazole 5 Mg Tablet) 2.5 mg PO DAILY [facility] Last Admin: 11/16/23 07:30 Dose: 2.5 mg Documented By: KARIME Calcium Carbonate (Calcium Carbonate 750 Mg Tab.Chew) 750 mg PO Q6H PRN PRN Reason: Heartburn Last Admin: 10/06/23 20:43 Dose: 750 mg Documented By: KASI Gabapentin (Gabapentin 100 Mg Capsule) 100 mg PO BID [facility] Last Admin: 11/16/23 07:30 Dose: 100 mg Documented By: KARIME Glucose (Glucose Gel 15 Gm Gel..Gram.) 15 gm PO Q15M PRN; Protocol PRN Reason: per Hypoglycemia Standing Ord. Dextrose (D10) 250 mls @ 750 mls/hr IV Q15M PRN; Protocol PRN Reason: per Hypoglycemia Standing Ord. Ondansetron HCl (Ondansetron Odt 4 Mg Tab.Rapdis) 4 mg TRANSLINGU Q6H PRN PRN Reason: Nausea and Vomiting Last Admin: 10/27/23 20:01 Dose: 4 mg Documented By: HERMELINDO Polyethylene Glycol (Polyethylene Glycol 3350 17 Gm Powd.Pack) 17 gm PO DAILY [facility] Last Admin: 11/16/23 07:31 Dose: Not Given Documented By: KARIME Non-Admin Reason: loose stools Sertraline HCl (Sertraline Hcl 25 Mg Tablet) 12.5 mg PO BEDTIME [facility] Last Admin: 11/15/23 20:41 Dose: 12.5 mg Documented By: GARY Trazodone HCl (Trazodone Hcl 25 Mg Halftab) 25 mg PO BEDTIME [facility] Last Admin: 11/15/23 21:07 Dose: 25 mg Documented By: GARY Labs 11/15/23 05:15 11/15/23 05:15 Assessment and Plan (1) Acute DVT (deep venous thrombosis): Status: Acute Plan d128 53yo M with DM2, HTN, asthma presented to ED after falling and on the ground x9hr admitted for CHITO + hyperK from rhabdomyolysis acute/chronic DVT R CFV - apixaban 5 mg bid; VQ nondiagnostic for PE chronic normocytic anemia - negative FOBT, normal B12/FA/iron, s/p epo for anemia of chronic disease sinus tachycardia - resolved acute diarrhea - resolved; GI panel negative; Cdiff colonization but was treated with 10d of vancomycin given symptoms CHITO/severe hyperK/acute metabolic acidosis due to ATN from rhabdomyolysis - was dialyzed; Permacath had been placed 07/16/23 and changed 09/29/23, removed 10/14/23 due to renal recovery, SCr stable <2 - off fludrocortisone + bicarbonate supplementation - outpt f/u with [facility] [place] Nephrology hypoK - resolved chronic leg/back pain - gabapentin dysphagia - resolved; tolerating regular diet mood disorder - continue home medications - continue aripiprazole, trazodone, sertraline; Psyhc consulted 08/24/23 DM2, A1c 6.1 - stable blood glucose morbid obesity - diet/exercise counseling VTE ppx - apixaban dispo - pt refuses STR as recommended by PT; awaiting insurance for VNA coverage for home In my clinical judgment, the patient requires continued inpatient hospitalization for the following reasons: safe disposition Total time managing care of this patient today: 25 minutes. Quality Stroke Does the patient have a stroke diagnosis?: No VTE Prior VTE?: No VTE Risk Level:: Medical - moderate - high VTE Device Contraindication: N/A - Device Ordered VTE Drug Contraindication: N/A - Med Ordered
[2023-11-16 16:00] VITALS: BP 147/94; PULSE 107; RESP 18; TEMP 37.3; O2SAT 96
[2023-11-16] MEDS: Sertraline HCL 25 MG TABLET 12.5 MG PO (19:56)
[2023-11-16] MEDS: traZODone HCL 25 MG HALFTAB PO (19:56)
[2023-11-16 20:00] VITALS: BP 159/94; PULSE 104; RESP 16; TEMP 36.3; O2SAT 97
[2023-11-17 03:44] VITALS: BP 139/93; PULSE 98; RESP 16; TEMP 36.3; O2SAT 97
[2023-11-17] MEDS: Acetaminophen 325 MG TABLET 650 MG PO (05:57)
[2023-11-17 07:40] VITALS: BP 140/90; PULSE 93; RESP 12; TEMP 36.3; O2SAT 97
[2023-11-17] MEDS: Gabapentin 100 MG CAPSULE PO (07:40)
[2023-11-17] MEDS: ARIPiprazole 5 MG TABLET 2.5 MG PO (07:40)
[2023-11-17] MEDS: Apixaban 5 MG TABLET PO ×2 (07:40→20:03)
--- NOTE | 2023-11-17 10:36 | HO.PM.IMPN ---
Subjective Subjective Date of Service: 11/17/23 Interval History: no new events Review of Systems Review of Systems: Yes all other systems are reviewed and are negative Physical Exam Vital Signs: Vital Signs: Last Vital Signs Temp 97.4 F 11/17/23 07:40 Pulse 93 11/17/23 07:40 Resp 12 11/17/23 07:40 BP 140/90 H 11/17/23 07:40 Pulse Ox 97 11/17/23 07:40 O2 Del Method Room Air 11/17/23 07:40 O2 Flow Rate 2 09/17/23 12:00 BMI result Body Mass Index 49.2 Gen: in no acute distress HEENT: sclera anicteric, moist mucus membranes Neck: supple Lungs: clear to auscultation bilaterally Heart: regular rate and rhythm, no murmurs Abd: soft, non-tender, non-distended, obese Ext: no edema Skin: warm/well-perfused Neuro: alert and oriented x3, no focal findings Psych: appropriate affect Objective Data Active Medications Acetaminophen (Acetaminophen 325 Mg Tablet) 650 mg PO Q6H PRN PRN Reason: Pain, Mild (Pain Scale 1-3) Last Admin: 11/17/23 05:57 Dose: 650 mg Documented By: JOSE LUIS Comments: given per pt request for h/a Apixaban (Apixaban 5 Mg Tablet) 5 mg PO BID [facility] Stop: 02/25/25 21:01 Last Admin: 11/17/23 07:40 Dose: 5 mg Documented By: KARIME Aripiprazole (Aripiprazole 5 Mg Tablet) 2.5 mg PO DAILY [facility] Last Admin: 11/17/23 07:40 Dose: 2.5 mg Documented By: KARIME Calcium Carbonate (Calcium Carbonate 750 Mg Tab.Chew) 750 mg PO Q6H PRN PRN Reason: Heartburn Last Admin: 10/06/23 20:43 Dose: 750 mg Documented By: KASI Glucose (Glucose Gel 15 Gm Gel..Gram.) 15 gm PO Q15M PRN; Protocol PRN Reason: per Hypoglycemia Standing Ord. Dextrose (D10) 250 mls @ 750 mls/hr IV Q15M PRN; Protocol PRN Reason: per Hypoglycemia Standing Ord. Polyethylene Glycol (Polyethylene Glycol 3350 17 Gm Powd.Pack) 17 gm PO DAILY [facility] Last Admin: 11/17/23 07:34 Dose: Not Given Documented By: DABSimran Non-Admin Reason: Patient Refused Sertraline HCl (Sertraline Hcl 25 Mg Tablet) 12.5 mg PO BEDTIME [facility] Last Admin: 11/16/23 19:56 Dose: 12.5 mg Documented By: JOSE LUIS Trazodone HCl (Trazodone Hcl 25 Mg Halftab) 25 mg PO BEDTIME [facility] Last Admin: 11/16/23 19:56 Dose: 25 mg Documented By: JOSE LUIS Labs 11/15/23 05:15 11/15/23 05:15 Assessment and Plan (1) Acute DVT (deep venous thrombosis): Status: Acute Plan d129 53yo M with DM2, HTN, asthma presented to ED after falling and on the ground x9hr admitted for CHITO + hyperK from rhabdomyolysis acute/chronic DVT R CFV - apixaban 5 mg bid; VQ nondiagnostic for PE chronic normocytic anemia - negative FOBT, normal B12/FA/iron, s/p epo for anemia of chronic disease sinus tachycardia - resolved acute diarrhea - resolved; GI panel negative; Cdiff colonization but was treated with 10d of vancomycin given symptoms CHITO/severe hyperK/acute metabolic acidosis due to ATN from rhabdomyolysis - was dialyzed; Permacath had been placed 07/16/23 and changed 09/29/23, removed 10/14/23 due to renal recovery, SCr stable <2 - off fludrocortisone + bicarbonate supplementation - outpt [place] [facility] - resolved chronic leg/back pain - gabapentin dysphagia - resolved; tolerating regular diet mood disorder - continue home medications - continue aripiprazole, trazodone, sertraline; Psyhc consulted 08/24/23 DM2, A1c 6.1 - stable blood glucose morbid obesity - diet/exercise counseling VTE ppx - apixaban dispo - pt refuses STR as recommended by PT; awaiting insurance for VNA coverage for home In my clinical judgment, the patient requires continued inpatient hospitalization for the following reasons: safe disposition Total time managing care of this patient today: 25 minutes. Quality Stroke Does the patient have a stroke diagnosis?: No VTE Prior VTE?: No VTE Risk Level:: Medical - moderate - high VTE Device Contraindication: N/A - Device Ordered VTE Drug Contraindication: N/A - Med Ordered
--- NOTE | 2023-11-17 14:53 | MHC.CLN ---
F/U [facility] ENSURE NOT AVAILABLE DUE TO SUPPLY CHAIN ISSUE. DISCONTINUE ENSURE TID. ENSURE IS PROVIDED PER PATIENT PREFERENCE. SUPPLEMENT NOT NEEDED FOR ADDITIONAL KCALS.
[2023-11-17 15:55] VITALS: BP 132/79; PULSE 107; RESP 18; TEMP 36.7; O2SAT 98
[2023-11-17 19:09] VITALS: BP 153/105; PULSE 98; RESP 18; TEMP 37.1; O2SAT 98
[2023-11-17] MEDS: Sertraline HCL 25 MG TABLET 12.5 MG PO (20:03)
[2023-11-17] MEDS: traZODone HCL 25 MG HALFTAB PO (20:03)
[2023-11-18 02:52] VITALS: BP 159/95; PULSE 106; RESP 18; TEMP 36.4; O2SAT 94
[2023-11-18] MEDS: Apixaban 5 MG TABLET PO ×2 (07:35→21:54)
[2023-11-18] MEDS: ARIPiprazole 5 MG TABLET 2.5 MG PO (07:35)
[2023-11-18 07:55] VITALS: BP 130/91; PULSE 107; RESP 18; TEMP 36.4; O2SAT 97
--- NOTE | 2023-11-18 09:57 | HO.PM.IMPN ---
Subjective Subjective Date of Service: 11/18/23 Interval History: no new events; PT/OT still recommend STR but pt refuses Review of Systems Review of Systems: Yes all other systems are reviewed and are negative Physical Exam Vital Signs: Vital Signs: Last Vital Signs Temp 97.6 F 11/18/23 07:55 Pulse 107 H 11/18/23 07:55 Resp 18 11/18/23 07:55 BP 130/91 H 11/18/23 07:55 Pulse Ox 97 11/18/23 07:55 O2 Del Method Room Air 11/18/23 07:55 O2 Flow Rate 2 09/17/23 12:00 BMI result Body Mass Index 49.2 Gen: in no acute distress HEENT: sclera anicteric, moist mucus membranes Neck: supple Lungs: clear to auscultation bilaterally Heart: regular rate and rhythm, no murmurs Abd: soft, non-tender, non-distended, obese Ext: no edema Skin: warm/well-perfused Neuro: alert and oriented x3, no focal findings Psych: appropriate affect Objective Data Active Medications Acetaminophen (Acetaminophen 325 Mg Tablet) 650 mg PO Q6H PRN PRN Reason: Pain, Mild (Pain Scale 1-3) Last Admin: 11/17/23 05:57 Dose: 650 mg Documented By: JOSE LUIS Comments: given per pt request for h/a Apixaban (Apixaban 5 Mg Tablet) 5 mg PO BID [facility] Stop: 02/25/25 21:01 Last Admin: 11/18/23 07:35 Dose: 5 mg Documented By: KATIA Aripiprazole (Aripiprazole 5 Mg Tablet) 2.5 mg PO DAILY [facility] Last Admin: 11/18/23 07:35 Dose: 2.5 mg Documented By: KATIA Calcium Carbonate (Calcium Carbonate 750 Mg Tab.Chew) 750 mg PO Q6H PRN PRN Reason: Heartburn Last Admin: 10/06/23 20:43 Dose: 750 mg Documented By: KASI Glucose (Glucose Gel 15 Gm Gel..Gram.) 15 gm PO Q15M PRN; Protocol PRN Reason: per Hypoglycemia Standing Ord. Dextrose (D10) 250 mls @ 750 mls/hr IV Q15M PRN; Protocol PRN Reason: per Hypoglycemia Standing Ord. Polyethylene Glycol (Polyethylene Glycol 3350 17 Gm Powd.Pack) 17 gm PO DAILY [facility] Last Admin: 11/18/23 07:29 Dose: Not Given Documented By: KARIME Non-Admin Reason: loose stools Sertraline HCl (Sertraline Hcl 25 Mg Tablet) 12.5 mg PO BEDTIME [facility] Last Admin: 11/17/23 20:03 Dose: 12.5 mg Documented By: JOSE LUIS Trazodone HCl (Trazodone Hcl 25 Mg Halftab) 25 mg PO BEDTIME [facility] Last Admin: 11/17/23 20:03 Dose: 25 mg Documented By: JOSE LUIS Labs 11/15/23 05:15 11/15/23 05:15 Assessment and Plan (1) Acute DVT (deep venous thrombosis): Status: Acute Plan d130 53yo M with DM2, HTN, asthma presented to ED after falling and on the ground x9hr admitted for CHITO + hyperK from rhabdomyolysis acute/chronic DVT R CFV - apixaban 5 mg bid; VQ nondiagnostic for PE chronic normocytic anemia - negative FOBT, normal B12/FA/iron, s/p epo for anemia of chronic disease sinus tachycardia - resolved acute diarrhea - resolved; GI panel negative; Cdiff colonization but was treated with 10d of vancomycin given symptoms CHITO/severe hyperK/acute metabolic acidosis due to ATN from rhabdomyolysis - was dialyzed; Permacath had been placed 07/16/23 and changed 09/29/23, removed 10/14/23 due to renal recovery, SCr stable <2 - off fludrocortisone + bicarbonate supplementation - outpt f/u with [facility] [place] Nephrology hypoK - resolved chronic leg/back pain - gabapentin dysphagia - resolved; tolerating regular diet mood disorder - continue home medications - continue aripiprazole, trazodone, sertraline; Psyhc consulted 08/24/23 DM2, A1c 6.1 - stable blood glucose morbid obesity - diet/exercise counseling VTE ppx - apixaban dispo - pt refuses STR as recommended by PT; awaiting insurance for VNA coverage for home In my clinical judgment, the patient requires continued inpatient hospitalization for the following reasons: safe disposition Total time managing care of this patient today: 25 minutes. Quality Stroke Does the patient have a stroke diagnosis?: No VTE Prior VTE?: No VTE Risk Level:: Medical - moderate - high VTE Device Contraindication: N/A - Device Ordered VTE Drug Contraindication: N/A - Med Ordered
--- NOTE | 2023-11-18 13:40 | MHC.CM.PN ---
THIS CM SPOKE WITH [facility] FINANCIAL COUNSELOR WHO WILL FOLLOW UP ON STATUS OF APPLICATION/ CONVERSION OF INSURANCE PLAN TO A ONECARE PLAN. PT ALSO INFORMS THIS CM THAT HIS CELL PHONE HAS BEEN SHUT OFF AND WILL NEED TO PAY BILL/RE-INSTATE SERVICE. CM PROVIDED # OF PHONE PLAN TO PT SO HE MAY F/U VIA PHONE IN ROOM.
[2023-11-18 15:41] VITALS: BP 144/93; PULSE 97; RESP 18; TEMP 36.9; O2SAT 99
[2023-11-18 19:49] VITALS: BP 157/95; PULSE 98; RESP 18; TEMP 36.9; O2SAT 97
[2023-11-18] MEDS: Sertraline HCL 25 MG TABLET 12.5 MG PO (21:54)
[2023-11-18] MEDS: traZODone HCL 25 MG HALFTAB PO (21:55)
[2023-11-19 03:39] VITALS: BP 152/95; PULSE 99; RESP 16; TEMP 36.7; O2SAT 98
[2023-11-19 07:29] VITALS: BP 156/86; PULSE 95; RESP 18; TEMP 36.6; O2SAT 98
[2023-11-19] MEDS: ARIPiprazole 5 MG TABLET 2.5 MG PO (07:37)
[2023-11-19] MEDS: Apixaban 5 MG TABLET PO ×2 (07:37→20:40)
--- NOTE | 2023-11-19 09:04 | MHC.CLN ---
F/U WILL ACCEPT [facility] ENSURE TID. PREFERS [facility] AND WILL PROVIDE WHEN AVAILABLE.
--- NOTE | 2023-11-19 09:51 | P.PNNP_ITS ---
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 Being followed for placement. Examined this morning, pt denies acute changes or concerns. Reports he is urinating every few hours comfortably Good appetite, eating well No events overnight. ongoing anemia, most recent H&H 8.7 & 27.5 11/14 creatinine has stabilized, most recent 1.98 11/14 Physical Exam 2 Vital Signs: Vital Signs: Last Vital Signs Temp 97.8 F 11/19/23 07:29 Pulse 95 11/19/23 07:29 Resp 18 11/19/23 07:29 BP 156/86 H 11/19/23 07:29 Pulse Ox 98 11/19/23 07:29 O2 Del Method Room Air 11/19/23 07:29 O2 Flow Rate 2 09/17/23 12:00 BMI result Body Mass Index 49.2 Const: General: comfortable, no acute distress and alert Resp: Effort & Inspection: normal respiratory effort Auscultation: clear to auscultation bilaterally Cardio: Jugular venous distension: no JVD Palpation: normal PMI Rate: r egular rate Rhythm: regular rhythm Heart sounds: S1 normal heart sound present and S2 normal heart sound present GI: Palpation (GI): Soft to palpation and nontender : General: Yes no CVA tenderness Back/Spine/Pelvis: Back: no CVA tenderness Skin: Rashes: no rashes Objective Data Labs 11/15/23 05:15 11/15/23 05:15 Microbiology Microbiology Results: Microbiology 07/20/23 22:49 Blood - Venous Blood Culture - Final No growth after 5 days. 07/20/23 22:49 Blood - Venous Blood Culture - Final No growth after 5 days. 07/12/23 12:30 Blood - Venous Blood Culture - Final No growth after 5 days. 07/12/23 12:15 Blood - Venous Blood Culture - Final No growth after 5 days. 07/12/23 Unknown Urine Catheterized - Straight Catheter Urine Culture - Final No growth. 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 Recovered now, creatinine stable will montior CBC and iron studies and administer procrit if needed. continue to monitor blood pressures, acceptable for now - pt recently titrated off florinef and midodrine so will continue to monitor blood pressures for now. C/W rest of current management Time Spent With Patient Time: Total time managing care of this patient today ____ minutes. Progress Note: Quality Stroke Does the patient have a stroke diagnosis?: No
--- NOTE | 2023-11-19 10:11 | MHC.CM.PN ---
PT CONTINUES TO DECLINE STR PT AWAITING MH CHANGE AND HOME SERVICE ARRANGEMENT BLS TRANSPORT
[2023-11-19 11:40] VITALS: BP 156/86; PULSE 95; O2SAT 98
--- NOTE | 2023-11-19 12:12 | P.PNIM_ITS ---
Subjective Subjective Date of Service: 11/19/23 Interval History: no new issues PT still recommends STR Review of Systems Review of Systems: Yes all other systems are reviewed and are negative Physical Exam 2 Vital Signs: Vital Signs: Last Vital Signs Temp 97.8 F 11/19/23 07:29 Pulse 95 11/19/23 11:40 Resp 18 11/19/23 07:29 BP 156/86 H 11/19/23 11:40 Pulse Ox 98 11/19/23 11:40 O2 Del Method Room Air 11/19/23 07:29 O2 Flow Rate 2 09/17/23 12:00 BMI result Body Mass Index 49.2 Gen: in no acute distress Lungs: normal effort Abd: obese Ext: no edema Neuro: alert and oriented x3, no focal findings Objective Data Active Medications Acetaminophen (Acetaminophen 325 Mg Tablet) 650 mg PO Q6H PRN PRN Reason: Pain, Mild (Pain Scale 1-3) Last Admin: 11/17/23 05:57 Dose: 650 mg Documented By: JOSE LUIS Comments: given per pt request for h/a Apixaban (Apixaban 5 Mg Tablet) 5 mg PO BID [facility] Stop: 02/25/25 21:01 Last Admin: 11/19/23 07:37 Dose: 5 mg Documented By: TERRIE Aripiprazole (Aripiprazole 5 Mg Tablet) 2.5 mg PO DAILY [facility] Last Admin: 11/19/23 07:37 Dose: 2.5 mg Documented By: TERRIE Calcium Carbonate (Calcium Carbonate 750 Mg Tab.Chew) 750 mg PO Q6H PRN PRN Reason: Heartburn Last Admin: 10/06/23 20:43 Dose: 750 mg Documented By: KASI Glucose (Glucose Gel 15 Gm Gel..Gram.) 15 gm PO Q15M PRN; Protocol PRN Reason: per Hypoglycemia Standing Ord. Dextrose (D10) 250 mls @ 750 mls/hr IV Q15M PRN; Protocol PRN Reason: per Hypoglycemia Standing Ord. Sertraline HCl (Sertraline Hcl 25 Mg Tablet) 12.5 mg PO BEDTIME [facility] Last Admin: 11/18/23 21:54 Dose: 12.5 mg Documented By: BENNETT Trazodone HCl (Trazodone Hcl 25 Mg Halftab) 25 mg PO BEDTIME [facility] Last Admin: 11/18/23 21:55 Dose: 25 mg Documented By: BENNETT Labs 11/15/23 05:15 11/15/23 05:15 Assessment and Plan (1) Acute DVT (deep venous thrombosis): Status: Acute Plan d131 53yo M with DM2, HTN, asthma presented to ED after falling and on the ground x9hr admitted for CHITO + hyperK from rhabdomyolysis acute/chronic DVT R CFV - apixaban 5 mg bid; VQ nondiagnostic for PE chronic normocytic anemia - negative FOBT, normal B12/FA/iron, s/p epo for anemia of chronic disease sinus tachycardia - resolved acute diarrhea - resolved; GI panel negative; Cdiff colonization but was treated with 10d of vancomycin given symptoms CHITO/severe hyperK/acute metabolic acidosis due to ATN from rhabdomyolysis - was dialyzed; Permacath had been placed 07/16/23 and changed 09/29/23, removed 10/14/23 due to renal recovery, SCr stable <2 - off fludrocortisone + bicarbonate supplementation - outpt f[place] [facility] [place] hypoK - resolved chronic leg/back pain - gabapentin dysphagia - resolved; tolerating regular diet mood disorder - continue home medications - continue aripiprazole, trazodone, sertraline; Psyhc consulted 08/24/23 DM2, A1c 6.1 - stable blood glucose morbid obesity - diet/exercise counseling VTE ppx - apixaban dispo - pt refuses STR as recommended by PT; awaiting insurance for VNA coverage for home In my clinical judgment, the patient requires continued inpatient hospitalization for the following reasons: safe disposition Total time managing care of this patient today: 25 minutes. Quality Stroke Does the patient have a stroke diagnosis?: No VTE Prior VTE?: No VTE Risk Level:: Medical - moderate - high VTE Device Contraindication: N/A - Device Ordered VTE Drug Contraindication: N/A - Med Ordered
[2023-11-19 15:55] VITALS: BP 133/76; PULSE 112; RESP 20; TEMP 36.7; O2SAT 98
[2023-11-19 18:28] VITALS: PULSE 98
[2023-11-19 20:00] VITALS: BP 156/90; PULSE 115; RESP 17; TEMP 36.4; O2SAT 97
[2023-11-19] MEDS: traZODone HCL 25 MG HALFTAB PO (20:40)
[2023-11-19] MEDS: Sertraline HCL 25 MG TABLET 12.5 MG PO (20:40)
[2023-11-20 04:00] VITALS: BP 152/88; PULSE 108; RESP 17; TEMP 36.7; O2SAT 96
[2023-11-20 07:56] VITALS: BP 157/99; PULSE 105; RESP 17; TEMP 36.8; O2SAT 96
[2023-11-20] MEDS: Apixaban 5 MG TABLET PO ×2 (08:02→19:57)
[2023-11-20] MEDS: ARIPiprazole 5 MG TABLET 2.5 MG PO (08:02)
--- NOTE | 2023-11-20 08:47 | PC.NURSE ---
wound on buttocks resolved.
--- NOTE | 2023-11-20 11:36 | HO.PM.IMPN ---
Subjective Subjective Date of Service: 11/20/23 Interval History: no new events Review of Systems Review of Systems: Yes all other systems are reviewed and are negative Physical Exam Vital Signs: Vital Signs: Last Vital Signs Temp 98.2 F 11/20/23 07:56 Pulse 105 H 11/20/23 07:56 Resp 17 11/20/23 07:56 BP 157/99 H 11/20/23 07:56 Pulse Ox 96 11/20/23 07:56 O2 Del Method Room Air 11/20/23 07:56 O2 Flow Rate 2 09/17/23 12:00 BMI result Body Mass Index 49.2 Gen: in no acute distress Lungs: normal effort Abd: obese Ext: no edema Neuro: alert and oriented x3, no focal findings Objective Data Active Medications Acetaminophen (Acetaminophen 325 Mg Tablet) 650 mg PO Q6H PRN PRN Reason: Pain, Mild (Pain Scale 1-3) Last Admin: 11/17/23 05:57 Dose: 650 mg Documented By: JOSE LUIS Comments: given per pt request for h/a Apixaban (Apixaban 5 Mg Tablet) 5 mg PO BID [facility] Stop: 02/25/25 21:01 Last Admin: 11/20/23 08:02 Dose: 5 mg Documented By: EBONI Aripiprazole (Aripiprazole 5 Mg Tablet) 2.5 mg PO DAILY [facility] Last Admin: 11/20/23 08:02 Dose: 2.5 mg Documented By: EBONI Calcium Carbonate (Calcium Carbonate 750 Mg Tab.Chew) 750 mg PO Q6H PRN PRN Reason: Heartburn Last Admin: 10/06/23 20:43 Dose: 750 mg Documented By: KASI Glucose (Glucose Gel 15 Gm Gel..Gram.) 15 gm PO Q15M PRN; Protocol PRN Reason: per Hypoglycemia Standing Ord. Dextrose (D10) 250 mls @ 750 mls/hr IV Q15M PRN; Protocol PRN Reason: per Hypoglycemia Standing Ord. Sertraline HCl (Sertraline Hcl 25 Mg Tablet) 12.5 mg PO BEDTIME [facility] Last Admin: 11/19/23 20:40 Dose: 12.5 mg Documented By: GARY Trazodone HCl (Trazodone Hcl 25 Mg Halftab) 25 mg PO BEDTIME [facility] Last Admin: 11/19/23 20:40 Dose: 25 mg Documented By: GARY Labs 11/15/23 05:15 11/15/23 05:15 Assessment and Plan (1) Acute DVT (deep venous thrombosis): Status: Acute Plan d132 53yo M with DM2, HTN, asthma presented to ED after falling and on the ground x9hr admitted for CHITO + hyperK from rhabdomyolysis acute/chronic DVT R CFV - apixaban 5 mg bid; VQ nondiagnostic for PE chronic normocytic anemia - negative FOBT, normal B12/FA/iron, s/p epo for anemia of chronic disease sinus tachycardia - resolved acute diarrhea - resolved; GI panel negative; Cdiff colonization but was treated with 10d of vancomycin given symptoms CHITO/severe hyperK/acute metabolic acidosis due to ATN from rhabdomyolysis - was dialyzed; Permacath had been placed 07/16/23 and changed 09/29/23, removed 10/14/23 due to renal recovery, SCr stable <2 - off fludrocortisone + bicarbonate supplementation - [place] [facility] [place] - resolved chronic leg/back pain - gabapentin dysphagia - resolved; tolerating regular diet mood disorder - continue home medications - continue aripiprazole, trazodone, sertraline; Psyhc consulted 08/24/23 DM2, A1c 6.1 - stable blood glucose morbid obesity - diet/exercise counseling VTE ppx - apixaban dispo - pt refuses STR as recommended by PT; awaiting insurance for VNA coverage for home In my clinical judgment, the patient requires continued inpatient hospitalization for the following reasons: safe disposition Total time managing care of this patient today: 25 minutes. Quality Stroke Does the patient have a stroke diagnosis?: No VTE Prior VTE?: No VTE Risk Level:: Medical - moderate - high VTE Device Contraindication: N/A - Device Ordered VTE Drug Contraindication: N/A - Med Ordered
--- NOTE | 2023-11-20 15:37 | PC.NURSE ---
Pt doing well. Made low fall risk. Ambulating and transferring and bringing self to the bathroom today.
[2023-11-20 15:43] VITALS: BP 130/81; PULSE 102; RESP 18; TEMP 37.2; O2SAT 97
[2023-11-20] MEDS: traZODone HCL 25 MG HALFTAB PO (19:57)
[2023-11-20] MEDS: Sertraline HCL 25 MG TABLET 12.5 MG PO (19:57)
[2023-11-20 20:00] VITALS: BP 138/92; PULSE 102; RESP 16; TEMP 36.7; O2SAT 97
[2023-11-21 03:52] VITALS: BP 138/62; PULSE 86; RESP 18; TEMP 36.2; O2SAT 97
[2023-11-21] MEDS: ARIPiprazole 5 MG TABLET 2.5 MG PO (07:39)
[2023-11-21] MEDS: Apixaban 5 MG TABLET PO ×2 (07:40→19:46)
[2023-11-21 07:52] VITALS: BP 148/96; PULSE 108; RESP 18; TEMP 36.7; O2SAT 97
--- NOTE | 2023-11-21 09:20 | HO.PM.IMPN ---
Subjective Subjective Date of Service: 11/21/23 Interval History: no new complaints Review of Systems Review of Systems: Yes all other systems are reviewed and are negative Physical Exam Vital Signs: Vital Signs: Last Vital Signs Temp 98.1 F 11/21/23 07:52 Pulse 108 H 11/21/23 07:52 Resp 18 11/21/23 07:52 BP 148/96 H 11/21/23 07:52 Pulse Ox 97 11/21/23 07:52 O2 Del Method Room Air 11/21/23 07:52 O2 Flow Rate 2 09/17/23 12:00 BMI result Body Mass Index 49.2 Gen: in no acute distress Lungs: normal effort Abd: obese Ext: no edema Neuro: alert and oriented x3, no focal findings Objective Data Active Medications Acetaminophen (Acetaminophen 325 Mg Tablet) 650 mg PO Q6H PRN PRN Reason: Pain, Mild (Pain Scale 1-3) Last Admin: 11/17/23 05:57 Dose: 650 mg Documented By: JOSE LUIS Comments: given per pt request for h/a Apixaban (Apixaban 5 Mg Tablet) 5 mg PO BID [facility] Stop: 02/25/25 21:01 Last Admin: 11/21/23 07:40 Dose: 5 mg Documented By: EBONI Aripiprazole (Aripiprazole 5 Mg Tablet) 2.5 mg PO DAILY [facility] Last Admin: 11/21/23 07:39 Dose: 2.5 mg Documented By: EBONI Calcium Carbonate (Calcium Carbonate 750 Mg Tab.Chew) 750 mg PO Q6H PRN PRN Reason: Heartburn Last Admin: 10/06/23 20:43 Dose: 750 mg Documented By: KASI Glucose (Glucose Gel 15 Gm Gel..Gram.) 15 gm PO Q15M PRN; Protocol PRN Reason: per Hypoglycemia Standing Ord. Dextrose (D10) 250 mls @ 750 mls/hr IV Q15M PRN; Protocol PRN Reason: per Hypoglycemia Standing Ord. Sertraline HCl (Sertraline Hcl 25 Mg Tablet) 12.5 mg PO BEDTIME [facility] Last Admin: 11/20/23 19:57 Dose: 12.5 mg Documented By: GARY Trazodone HCl (Trazodone Hcl 25 Mg Halftab) 25 mg PO BEDTIME [facility] Last Admin: 11/20/23 19:57 Dose: 25 mg Documented By: GARY Labs 11/15/23 05:15 11/15/23 05:15 Assessment and Plan (1) Acute DVT (deep venous thrombosis): Status: Acute Plan d133 53yo M with DM2, HTN, asthma presented to ED after falling and on the ground x9hr admitted for CHITO + hyperK from rhabdomyolysis acute/chronic DVT R CFV - apixaban 5 mg bid; VQ nondiagnostic for PE chronic normocytic anemia - negative FOBT, normal B12/FA/iron, s/p epo for anemia of chronic disease sinus tachycardia - resolved acute diarrhea - resolved; GI panel negative; Cdiff colonization but was treated with 10d of vancomycin given symptoms CHITO/severe hyperK/acute metabolic acidosis due to ATN from rhabdomyolysis - was dialyzed; Permacath had been placed 07/16/23 and changed 09/29/23, removed 10/14/23 due to renal recovery, SCr stable <2 - off fludrocortisone + bicarbonate supplementation - outpt f/u with [facility] Nephrology hypoK - resolved chronic leg/back pain - gabapentin dysphagia - resolved; tolerating regular diet mood disorder - continue home medications - continue aripiprazole, trazodone, sertraline; Psyhc consulted 08/24/23 DM2, A1c 6.1 - stable blood glucose morbid obesity - diet/exercise counseling VTE ppx - apixaban dispo - pt refuses STR as recommended by PT; awaiting insurance for VNA coverage for home In my clinical judgment, the patient requires continued inpatient hospitalization for the following reasons: safe disposition Total time managing care of this patient today: 25 minutes. Quality Stroke Does the patient have a stroke diagnosis?: No VTE Prior VTE?: No VTE Risk Level:: Medical - moderate - high VTE Device Contraindication: N/A - Device Ordered VTE Drug Contraindication: N/A - Med Ordered
[2023-11-21 15:28] VITALS: BP 120/67; PULSE 101; RESP 20; TEMP 36.3; O2SAT 97
[2023-11-21 19:14] VITALS: BP 131/85; PULSE 99; RESP 20; TEMP 37; O2SAT 97
[2023-11-21] MEDS: Sertraline HCL 25 MG TABLET 12.5 MG PO (19:46)
[2023-11-21] MEDS: traZODone HCL 25 MG HALFTAB PO (19:46)
[2023-11-22 03:30] VITALS: BP 135/91; PULSE 104; RESP 18; TEMP 36.6; O2SAT 97
[2023-11-22 07:24] VITALS: BP 122/81; PULSE 108; RESP 20; TEMP 36.2; O2SAT 96
[2023-11-22] MEDS: ARIPiprazole 5 MG TABLET 2.5 MG PO (08:18)
[2023-11-22] MEDS: Apixaban 5 MG TABLET PO ×2 (08:18→20:19)
--- NOTE | 2023-11-22 08:34 | P.PNIM_ITS ---
Subjective Subjective Date of Service: 11/22/23 Interval History: seen and examined this AM no new issues reported Review of Systems Negative except HPI/interval history. Physical Exam 2 Vital Signs: Vital Signs: Last Vital Signs Temp 97.1 F 11/22/23 07:24 Pulse 108 H 11/22/23 07:24 Resp 20 11/22/23 07:24 BP 122/81 11/22/23 07:24 Pulse Ox 96 11/22/23 07:24 O2 Del Method Room Air 11/22/23 07:24 O2 Flow Rate 2 09/17/23 12:00 BMI result Body Mass Index 49.2 Const: Other: General - no acute distress, appears comfortable Cardiovascular - regular rate and rhythm, S1-S2 Lungs - normal respiratory effort, clear to auscultation bilaterally, no wheezing Abdomen - soft, nontender, no rebound or guarding Extremities - no edema bilaterally Neuro - awake and alert, no focal deficits Objective Data Active Medications Acetaminophen (Acetaminophen 325 Mg Tablet) 650 mg PO Q6H PRN PRN Reason: Pain, Mild (Pain Scale 1-3) Last Admin: 11/17/23 05:57 Dose: 650 mg Documented By: JOSE LUIS Comments: given per pt request for h/a Apixaban (Apixaban 5 Mg Tablet) 5 mg PO BID [facility] Stop: 02/25/25 21:01 Last Admin: 11/22/23 08:18 Dose: 5 mg Documented By: BELLA Aripiprazole (Aripiprazole 5 Mg Tablet) 2.5 mg PO DAILY [facility] Last Admin: 11/22/23 08:18 Dose: 2.5 mg Documented By: BELLA Calcium Carbonate (Calcium Carbonate 750 Mg Tab.Chew) 750 mg PO Q6H PRN PRN Reason: Heartburn Last Admin: 10/06/23 20:43 Dose: 750 mg Documented By: KASI Glucose (Glucose Gel 15 Gm Gel..Gram.) 15 gm PO Q15M PRN; Protocol PRN Reason: per Hypoglycemia Standing Ord. Dextrose (D10) 250 mls @ 750 mls/hr IV Q15M PRN; Protocol PRN Reason: per Hypoglycemia Standing Ord. Sertraline HCl (Sertraline Hcl 25 Mg Tablet) 12.5 mg PO BEDTIME [facility] Last Admin: 11/21/23 19:46 Dose: 12.5 mg Documented By: GARY Trazodone HCl (Trazodone Hcl 25 Mg Halftab) 25 mg PO BEDTIME [facility] Last Admin: 11/21/23 19:46 Dose: 25 mg Documented By: GARY Labs 11/15/23 05:15 11/15/23 05:15 Assessment and Plan (1) Acute DVT (deep venous thrombosis): Status: Acute Plan 53yo M with DM2, HTN, asthma presented to ED after falling and on the ground x9hr admitted for CHITO + hyperK from rhabdomyolysis remains stable, no new issues acute/chronic DVT R CFV - apixaban 5 mg bid; VQ nondiagnostic for PE chronic normocytic anemia - negative FOBT, normal B12/FA/iron, s/p epo for anemia of chronic disease sinus tachycardia - resolved acute diarrhea - resolved; GI panel negative; Cdiff colonization but was treated with 10d of vancomycin given symptoms CHITO/severe hyperK/acute metabolic acidosis due to ATN from rhabdomyolysis - was dialyzed; Permacath had been placed 07/16/23 and changed 09/29/23, removed 10/14/23 due to renal recovery, SCr stable <2 - off fludrocortisone + bicarbonate supplementation - [place] [facility] [place] - resolved chronic leg/back pain - gabapentin dysphagia - resolved; tolerating regular diet mood disorder - continue home medications - continue aripiprazole, trazodone, sertraline; Psyhc consulted 08/24/23 DM2, A1c 6.1 - stable blood glucose morbid obesity - diet/exercise counseling VTE ppx - apixaban dispo - pt refuses STR as recommended by PT; awaiting insurance for VNA coverage for home In my clinical judgment, the patient requires continued inpatient hospitalization for the following reasons: safe disposition Total time managing care of this patient today: 25 minutes. Quality Stroke Does the patient have a stroke diagnosis?: No VTE Prior VTE?: No VTE Risk Level:: Medical - moderate - high VTE Device Contraindication: N/A - Device Ordered VTE Drug Contraindication: N/A - Med Ordered
[2023-11-22] MEDS: LORazepam 0.5 MG TABLET PO (15:20)
[2023-11-22 15:38] VITALS: BP 118/71; PULSE 120; RESP 16; TEMP 36.2; O2SAT 97
[2023-11-22 19:15] VITALS: BP 119/79; PULSE 109; RESP 16; TEMP 36.6; O2SAT 98
[2023-11-22] MEDS: Sertraline HCL 25 MG TABLET 12.5 MG PO (20:19)
[2023-11-22] MEDS: traZODone HCL 25 MG HALFTAB PO (20:19)
[2023-11-23 03:25] VITALS: BP 110/67; PULSE 108; RESP 18; TEMP 36.3; O2SAT 96
[2023-11-23] MEDS: Apixaban 5 MG TABLET PO ×2 (07:14→19:24)
[2023-11-23] MEDS: ARIPiprazole 5 MG TABLET 2.5 MG PO (07:14)
[2023-11-23 07:31] VITALS: BP 130/76; PULSE 98; RESP 16; TEMP 36.2; O2SAT 95
--- NOTE | 2023-11-23 09:44 | P.PNNP_ITS ---
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 Being followed for placement. Examined this morning, pt denies acute changes or concerns. Reports he is urinating every few hours comfortably Good appetite, eating well No events overnight. ongoing anemia, most recent H&H 8.7 & 27.5 11/14 creatinine has stabilized, most recent 1.98 11/14 Physical Exam 2 Vital Signs: Vital Signs: Last Vital Signs Temp 97.1 F 11/23/23 07:31 Pulse 98 11/23/23 07:31 Resp 16 11/23/23 07:31 BP 130/76 11/23/23 07:31 Pulse Ox 95 11/23/23 07:31 O2 Del Method Room Air 11/23/23 07:31 O2 Flow Rate 2 09/17/23 12:00 BMI result Body Mass Index 49.2 Const: General: comfortable, no acute distress and alert Resp: Effort & Inspection: normal respiratory effort Auscultation: clear to auscultation bilaterally Cardio: Jugular venous distension: no JVD Palpation: normal PMI Rate: r egular rate Rhythm: regular rhythm Heart sounds: S1 normal heart sound present and S2 normal heart sound present GI: Palpation (GI): Soft to palpation and nontender : General: Yes no CVA tenderness Back/Spine/Pelvis: Back: no CVA tenderness Skin: Rashes: no rashes Objective Data Labs 11/15/23 05:15 11/15/23 05:15 Microbiology Microbiology Results: Microbiology 07/20/23 22:49 Blood - Venous Blood Culture - Final No growth after 5 days. 07/20/23 22:49 Blood - Venous Blood Culture - Final No growth after 5 days. 07/12/23 12:30 Blood - Venous Blood Culture - Final No growth after 5 days. 07/12/23 12:15 Blood - Venous Blood Culture - Final No growth after 5 days. 07/12/23 Unknown Urine Catheterized - Straight Catheter Urine Culture - Final No growth. 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 Recovered now, creatinine stable will montior CBC and administer procrit if needed. check CBC and BMP weekly continue to monitor blood pressures, acceptable at this time. C/W rest of current management Time Spent With Patient Time: Total time managing care of this patient today ____ minutes. Progress Note: Quality Stroke Does the patient have a stroke diagnosis?: No
--- NOTE | 2023-11-23 14:48 | HO.PM.IMPN ---
Subjective Subjective Date of Service: 11/23/23 Interval History: seen and examined in morning no new issues reported Review of Systems Review of Systems: Yes all other systems are reviewed and are negative Physical Exam Vital Signs: Vital Signs: Last Vital Signs Temp 97.1 F 11/23/23 07:31 Pulse 98 11/23/23 07:31 Resp 16 11/23/23 07:31 BP 130/76 11/23/23 07:31 Pulse Ox 95 11/23/23 07:31 O2 Del Method Room Air 11/23/23 07:31 O2 Flow Rate 2 09/17/23 12:00 BMI result Body Mass Index 49.2 General - no acute distress, appears comfortable Cardiovascular - regular rate and rhythm, S1-S2 Lungs - normal respiratory effort, clear to auscultation bilaterally, no wheezing Abdomen - soft, nontender, no rebound or guarding Extremities - no edema bilaterally Neuro - awake and alert, no focal deficits Objective Data Active Medications Acetaminophen (Acetaminophen 325 Mg Tablet) 650 mg PO Q6H PRN PRN Reason: Pain, Mild (Pain Scale 1-3) Last Admin: 11/17/23 05:57 Dose: 650 mg Documented By: JOSE LUIS Comments: given per pt request for h/a Apixaban (Apixaban 5 Mg Tablet) 5 mg PO BID [facility] Stop: 02/25/25 21:01 Last Admin: 11/23/23 07:14 Dose: 5 mg Documented By: KARIME Aripiprazole (Aripiprazole 5 Mg Tablet) 2.5 mg PO DAILY [facility] Last Admin: 11/23/23 07:14 Dose: 2.5 mg Documented By: KARIME Calcium Carbonate (Calcium Carbonate 750 Mg Tab.Chew) 750 mg PO Q6H PRN PRN Reason: Heartburn Last Admin: 10/06/23 20:43 Dose: 750 mg Documented By: KASI Glucose (Glucose Gel 15 Gm Gel..Gram.) 15 gm PO Q15M PRN; Protocol PRN Reason: per Hypoglycemia Standing Ord. Dextrose (D10) 250 mls @ 750 mls/hr IV Q15M PRN; Protocol PRN Reason: per Hypoglycemia Standing Ord. Sertraline HCl (Sertraline Hcl 25 Mg Tablet) 12.5 mg PO BEDTIME [facility] Last Admin: 11/22/23 20:19 Dose: 12.5 mg Documented By: ROLANDO Trazodone HCl (Trazodone Hcl 25 Mg Halftab) 25 mg PO BEDTIME [facility] Last Admin: 11/22/23 20:19 Dose: 25 mg Documented By: ROLANDO Labs 11/15/23 05:15 11/15/23 05:15 Assessment and Plan (1) Acute DVT (deep venous thrombosis): Status: Acute Plan 53yo M with DM2, HTN, asthma presented to ED after falling and on the ground x9hr admitted for CHITO + hyperK from rhabdomyolysis remains stable, no new issues acute/chronic DVT R CFV - apixaban 5 mg bid; VQ nondiagnostic for PE chronic normocytic anemia - negative FOBT, normal B12/FA/iron, s/p epo for anemia of chronic disease sinus tachycardia-intermittent - improving acute diarrhea - resolved; GI panel negative; Cdiff colonization but was treated with 10d of vancomycin given symptoms CHITO/severe hyperK/acute metabolic acidosis due to ATN from rhabdomyolysis - was dialyzed; Permacath had been placed 07/16/23 and changed 09/29/23, removed 10/14/23 due to renal recovery, SCr stable <2 - off fludrocortisone + bicarbonate supplementation - out[place] f[place] [facility] [place]oK- resolved. chronic leg/back pain- gabapentin dysphagia- resolved; tolerating regular diet mood disorder - continue home medications - continue aripiprazole, trazodone, sertraline; Psyhc consulted 08/24/23 DM2, A1c 6.1- stable blood glucose morbid obesity- diet/exercise counseling VTE ppx- apixaban dispo- pt refuses STR as recommended by PT; awaiting insurance for VNA coverage for home In my clinical judgment, the patient requires continued inpatient hospitalization for the following reasons: safe disposition Total time managing care of this patient today: 25 minutes. Quality Stroke Does the patient have a stroke diagnosis?: No VTE Prior VTE?: No VTE Risk Level:: Medical - moderate - high VTE Device Contraindication: N/A - Device Ordered VTE Drug Contraindication: N/A - Med Ordered
[2023-11-23 15:17] VITALS: BP 133/80; PULSE 100; RESP 20; TEMP 36.4; O2SAT 98
[2023-11-23 19:11] VITALS: BP 119/79; PULSE 99; RESP 20; TEMP 36.6; O2SAT 97
[2023-11-23] MEDS: traZODone HCL 25 MG HALFTAB PO (19:24)
[2023-11-23] MEDS: Acetaminophen 325 MG TABLET 650 MG PO (19:24)
[2023-11-23] MEDS: Sertraline HCL 25 MG TABLET 12.5 MG PO (19:24)
[2023-11-24 03:34] VITALS: BP 135/87; PULSE 100; RESP 18; TEMP 36.2; O2SAT 97
[2023-11-24 06:53] LABS: Anion Gap 16 (12-20); Blood Urea Nitrogen 25 mg/dL (9-16); Calcium 9.8 mg/dL (8.4-10.2); Carbon Dioxide 21 mmol/L (22-29); Chloride 107 mmol/L (96-108); Creatinine Clr Calc Pharmacy 58.3; Estimated Glomerular Filt Rate 34; Glucose Random 98 mg/dL (60-115); Potassium 4.9 mmol/L (3.3-5.1); Sodium 139 mmol/L (135-145)
[2023-11-24 07:05] LABS: Hematocrit 33.1 % (42.0-52.0); Hemoglobin 10.5 g/dl (14.0-18.0); Mean Corpuscular HGB Conc 31.7 g/dl (31.0-36.0); Mean Corpuscular Hemoglobin 30.5 pg (27.0-33.0); Mean Corpuscular Volume 96.2 fL (80.0-98.0); Mean Platelet Volume 8.8 fL (9.4-12.4); Platelet Count 410 X10*3/uL (160-400); Red Blood Count 3.44 X10*6/uL (4.60-5.80); Red Cell Distribution Width 12.4 % (11.0-16.0); White Blood Count 6.9 X10*3/uL (4.8-10.8)
[2023-11-24 07:45] VITALS: BP 132/89; PULSE 93; RESP 16; TEMP 36.8; O2SAT 97
[2023-11-24] MEDS: ARIPiprazole 5 MG TABLET 2.5 MG PO (07:46)
[2023-11-24] MEDS: Apixaban 5 MG TABLET PO ×2 (07:46→19:52)
[2023-11-24 15:01] VITALS: BP 107/75; PULSE 109; RESP 16; TEMP 36.3; O2SAT 97
--- NOTE | 2023-11-24 15:02 | MHC.CM.PN ---
MET WITH PT 11/22 HE WAS CONCERNED ABOUT HIS RENT BEING DUE CALLED HOUSING AUTHORITY HE DOES NOT OWE RENT TILL MIGUELANGEL [facility]URCHILL FROM [facility] [place] SENT PAYMENT LEDGER TO T/W EMAIL HANDED SAME TO [facility]
[2023-11-24 19:25] VITALS: BP 125/78; PULSE 105; RESP 14; TEMP 36.4; O2SAT 96
[2023-11-24] MEDS: Sertraline HCL 25 MG TABLET 12.5 MG PO (19:52)
[2023-11-24] MEDS: traZODone HCL 25 MG HALFTAB PO (19:52)
[2023-11-24] MEDS: Acetaminophen 325 MG TABLET 650 MG PO (19:54)
[2023-11-25 03:06] VITALS: BP 137/90; PULSE 94; RESP 16; TEMP 36.1; O2SAT 97
[2023-11-25] MEDS: ARIPiprazole 5 MG TABLET 2.5 MG PO (07:51)
[2023-11-25] MEDS: Apixaban 5 MG TABLET PO ×2 (07:51→20:16)
[2023-11-25 07:55] VITALS: BP 124/76; PULSE 112; RESP 18; TEMP 36.4; O2SAT 99
--- NOTE | 2023-11-25 13:22 | HO.PM.IMPN ---
Subjective Subjective Date of Service: 11/25/23 Interval History: seen and examined. no new issues reported Review of Systems Review of Systems: Yes all other systems are reviewed and are negative Physical Exam Vital Signs: Vital Signs: Last Vital Signs Temp 97.5 F 11/25/23 07:55 Pulse 112 H 11/25/23 07:55 Resp 18 11/25/23 07:55 BP 124/76 11/25/23 07:55 Pulse Ox 99 11/25/23 07:55 O2 Del Method Room Air 11/25/23 07:55 O2 Flow Rate 2 09/17/23 12:00 BMI result Body Mass Index 49.2 General - no acute distress, appears comfortable Cardiovascular - regular rate and rhythm, S1-S2 Lungs - normal respiratory effort, clear to auscultation bilaterally, no wheezing Abdomen - soft, nontender, no rebound or guarding Extremities - no edema bilaterally Neuro - awake and alert, no focal deficits Objective Data Active Medications Acetaminophen (Acetaminophen 325 Mg Tablet) 650 mg PO Q6H PRN PRN Reason: Pain, Mild (Pain Scale 1-3) Last Admin: 11/24/23 19:54 Dose: 650 mg Documented By: HERMELINDO Apixaban (Apixaban 5 Mg Tablet) 5 mg PO BID [facility] Stop: 02/25/25 21:01 Last Admin: 11/25/23 07:51 Dose: 5 mg Documented By: IRAIDA Aripiprazole (Aripiprazole 5 Mg Tablet) 2.5 mg PO DAILY [facility] Last Admin: 11/25/23 07:51 Dose: 2.5 mg Documented By: IRAIDA Calcium Carbonate (Calcium Carbonate 750 Mg Tab.Chew) 750 mg PO Q6H PRN PRN Reason: Heartburn Last Admin: 10/06/23 20:43 Dose: 750 mg Documented By: KASI Glucose (Glucose Gel 15 Gm Gel..Gram.) 15 gm PO Q15M PRN; Protocol PRN Reason: per Hypoglycemia Standing Ord. Dextrose (D10) 250 mls @ 750 mls/hr IV Q15M PRN; Protocol PRN Reason: per Hypoglycemia Standing Ord. Sertraline HCl (Sertraline Hcl 25 Mg Tablet) 12.5 mg PO BEDTIME [facility] Last Admin: 11/24/23 19:52 Dose: 12.5 mg Documented By: HERMELINDO Trazodone HCl (Trazodone Hcl 25 Mg Halftab) 25 mg PO BEDTIME [facility] Last Admin: 11/24/23 19:52 Dose: 25 mg Documented By: HERMELINDO Labs 11/24/23 06:12 11/24/23 06:12 Assessment and Plan (1) Acute DVT (deep venous thrombosis): Status: Acute Plan 53yo M with DM2, HTN, asthma presented to ED after falling and on the ground x9hr admitted for CHITO + hyperK from rhabdomyolysis remains stable, no new issues acute/chronic DVT R CFV - apixaban 5 mg bid; VQ nondiagnostic for PE chronic normocytic anemia - negative FOBT, normal B12/FA/iron, s/p epo for anemia of chronic disease sinus tachycardia-intermittent - improving acute diarrhea - resolved; GI panel negative; Cdiff colonization but was treated with 10d of vancomycin given symptoms CHITO/severe hyperK/acute metabolic acidosis due to ATN from rhabdomyolysis - was dialyzed; Permacath had been placed 07/16/23 and changed 09/29/23, removed 10/14/23 due to renal recovery, SCr stable <2 - off fludrocortisone + bicarbonate supplementation - outpt f/u with [facility] [place] Nephrology hypoK- resolved. chronic leg/back pain- gabapentin dysphagia- resolved; tolerating regular diet mood disorder - continue home medications - continue aripiprazole, trazodone, sertraline; Psyhc consulted 08/24/23 DM2, A1c 6.1- stable blood glucose morbid obesity- diet/exercise counseling VTE ppx- apixaban dispo- pt refuses STR as recommended by PT; awaiting insurance for VNA coverage for home In my clinical judgment, the patient requires continued inpatient hospitalization for the following reasons: safe disposition Total time managing care of this patient today: 25 minutes. Quality Stroke Does the patient have a stroke diagnosis?: No VTE Prior VTE?: No VTE Risk Level:: Medical - moderate - high VTE Device Contraindication: N/A - Device Ordered VTE Drug Contraindication: N/A - Med Ordered
[2023-11-25 15:34] VITALS: BP 114/56; PULSE 102; RESP 16; TEMP 37.1; O2SAT 98
[2023-11-25] MEDS: Acetaminophen 325 MG TABLET 650 MG PO (19:39)
[2023-11-25 20:00] VITALS: BP 135/82; PULSE 103; RESP 16; TEMP 37; O2SAT 96
[2023-11-25] MEDS: traZODone HCL 25 MG HALFTAB PO (20:16)
[2023-11-25] MEDS: Sertraline HCL 25 MG TABLET 12.5 MG PO (20:16)
[2023-11-26 03:35] VITALS: BP 112/78; PULSE 102; RESP 16; TEMP 37; O2SAT 98
[2023-11-26] MEDS: ARIPiprazole 5 MG TABLET 2.5 MG PO (07:35)
[2023-11-26] MEDS: Acetaminophen 325 MG TABLET 650 MG PO ×2 (07:35→19:45)
[2023-11-26] MEDS: Apixaban 5 MG TABLET PO ×2 (07:35→19:46)
[2023-11-26 07:58] VITALS: BP 139/81; PULSE 99; RESP 17; TEMP 37.4; O2SAT 97
--- NOTE | 2023-11-26 09:26 | P.PNNP_ITS ---
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 Being followed for placement. Examined this morning, pt denies acute changes or concerns. Reports he continues to urinate regularly/comfortably Good appetite, eating well No events overnight. ongoing anemia, most recent H&H 10.5/33.1 on 11/23 creatinine remains stable, most recent 2.09 on 11/23 Physical Exam 2 Vital Signs: Vital Signs: Last Vital Signs Temp 99.4 F 11/26/23 07:58 Pulse 99 11/26/23 07:58 Resp 17 11/26/23 07:58 BP 139/81 11/26/23 07:58 Pulse Ox 97 11/26/23 07:58 O2 Del Method Room Air 11/26/23 07:58 O2 Flow Rate 2 09/17/23 12:00 BMI result Body Mass Index 49.2 Const: General: comfortable, no acute distress and alert Resp: Effort & Inspection: normal respiratory effort Auscultation: clear to auscultation bilaterally Cardio: Jugular venous distension: no JVD Palpation: normal PMI Rate: r egular rate Rhythm: regular rhythm Heart sounds: S1 normal heart sound present and S2 normal heart sound present GI: Palpation (GI): Soft to palpation and nontender : General: Yes no CVA tenderness Back/Spine/Pelvis: Back: no CVA tenderness Skin: Rashes: no rashes Objective Data Labs 11/24/23 06:12 11/24/23 06:12 Microbiology Microbiology Results: Microbiology 07/20/23 22:49 Blood - Venous Blood Culture - Final No growth after 5 days. 07/20/23 22:49 Blood - Venous Blood Culture - Final No growth after 5 days. 07/12/23 12:30 Blood - Venous Blood Culture - Final No growth after 5 days. 07/12/23 12:15 Blood - Venous Blood Culture - Final No growth after 5 days. 07/12/23 Unknown Urine Catheterized - Straight Catheter Urine Culture - Final No growth. 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 Recovered now, creatinine stable will continue to montior CBC and administer procrit if needed. check CBC and BMP weekly continue to monitor blood pressures, acceptable at this time. C/W rest of current management Time Spent With Patient Time: Total time managing care of this patient today ____ minutes. Progress Note: Quality Stroke Does the patient have a stroke diagnosis?: No
--- NOTE | 2023-11-26 11:46 | MHC.CM.PN ---
PT AWAITING INSURANCE CHANGE SO HE CAN DC HOME WITH SERVICES [employer] INSURANCE SHOULD BECOME ACTIVE ON 12/10/23 AFTER WHICH TIME, THEY CAN PUT HOME CARE IN PLACE
[2023-11-26 12:06] VITALS: BP 139/81; PULSE 99; O2SAT 97
[2023-11-26] MEDS: Lidocaine 4 % Patch ADH..PATCH 1 PATCH TRANSDERMA (14:08)
--- NOTE | 2023-11-26 14:19 | HO.PM.IMPN ---
Subjective Subjective Date of Service: 11/26/23 Interval History: seen and examined. no new issues reported Review of Systems Review of Systems: Yes all other systems are reviewed and are negative Physical Exam Vital Signs: Vital Signs: Last Vital Signs Temp 99.4 F 11/26/23 07:58 Pulse 99 11/26/23 12:06 Resp 17 11/26/23 07:58 BP 139/81 11/26/23 12:06 Pulse Ox 97 11/26/23 12:06 O2 Del Method Room Air 11/26/23 07:58 O2 Flow Rate 2 09/17/23 12:00 BMI result Body Mass Index 49.2 General - no acute distress, appears comfortable Cardiovascular - regular rate and rhythm, S1-S2 Lungs - normal respiratory effort, clear to auscultation bilaterally, no wheezing Abdomen - soft, nontender, no rebound or guarding Extremities - no edema bilaterally Neuro - awake and alert, no focal deficits Objective Data Active Medications Acetaminophen (Acetaminophen 325 Mg Tablet) 650 mg PO Q6H PRN PRN Reason: Pain, Mild (Pain Scale 1-3) Last Admin: 11/26/23 07:35 Dose: 650 mg Documented By: YUNIER Apixaban (Apixaban 5 Mg Tablet) 5 mg PO BID [facility] Stop: 02/25/25 21:01 Last Admin: 11/26/23 07:35 Dose: 5 mg Documented By: YUNIER Aripiprazole (Aripiprazole 5 Mg Tablet) 2.5 mg PO DAILY [facility] Last Admin: 11/26/23 07:35 Dose: 2.5 mg Documented By: YUNIER Calcium Carbonate (Calcium Carbonate 750 Mg Tab.Chew) 750 mg PO Q6H PRN PRN Reason: Heartburn Last Admin: 10/06/23 20:43 Dose: 750 mg Documented By: KASI Glucose (Glucose Gel 15 Gm Gel..Gram.) 15 gm PO Q15M PRN; Protocol PRN Reason: per Hypoglycemia Standing Ord. Dextrose (D10) 250 mls @ 750 mls/hr IV Q15M PRN; Protocol PRN Reason: per Hypoglycemia Standing Ord. Lidocaine (Lidocaine 4 % Patch Adh..Patch) 1 patch TRANSDERMA DAILY [facility]; Protocol Last Admin: 11/26/23 14:08 Dose: 1 patch Documented By: RAFAEL Sertraline HCl (Sertraline Hcl 25 Mg Tablet) 12.5 mg PO BEDTIME JOVANNY Last Admin: 11/25/23 20:16 Dose: 12.5 mg Documented By: TOYA Trazodone HCl (Trazodone Hcl 25 Mg Halftab) 25 mg PO BEDTIME [facility] Last Admin: 11/25/23 20:16 Dose: 25 mg Documented By: TOYA Labs 11/24/23 06:12 11/24/23 06:12 Assessment and Plan (1) Acute DVT (deep venous thrombosis): Status: Acute Plan 53yo M with DM2, HTN, asthma presented to ED after falling and on the ground x9hr admitted for CHITO + hyperK from rhabdomyolysis remains stable, no new issues acute/chronic DVT R CFV - apixaban 5 mg bid; VQ nondiagnostic for PE chronic normocytic anemia - negative FOBT, normal B12/FA/iron, s/p epo for anemia of chronic disease sinus tachycardia-intermittent - improving acute diarrhea - resolved; GI panel negative; Cdiff colonization but was treated with 10d of vancomycin given symptoms CHITO/severe hyperK/acute metabolic acidosis due to ATN from rhabdomyolysis - was dialyzed; Permacath had been placed 07/16/23 and changed 09/29/23, removed 10/14/23 due to renal recovery, SCr stable <2 - off fludrocortisone + bicarbonate supplementation - outpt f/u with [facility] [place] Nephrology hypoK- resolved. chronic leg/back pain- gabapentin dysphagia- resolved; tolerating regular diet mood disorder - continue home medications - continue aripiprazole, trazodone, sertraline; Psyhc consulted 08/24/23 DM2, A1c 6.1- stable blood glucose morbid obesity- diet/exercise counseling VTE ppx- apixaban dispo- pt refuses STR as recommended by PT; awaiting insurance for VNA coverage for home In my clinical judgment, the patient requires continued inpatient hospitalization for the following reasons: safe disposition Total time managing care of this patient today: 25 minutes. Quality Stroke Does the patient have a stroke diagnosis?: No VTE Prior VTE?: No VTE Risk Level:: Medical - moderate - high VTE Device Contraindication: N/A - Device Ordered VTE Drug Contraindication: N/A - Med Ordered
[2023-11-26 15:40] VITALS: BP 126/72; PULSE 105; RESP 18; TEMP 37.6; O2SAT 98
[2023-11-26] MEDS: traZODone HCL 25 MG HALFTAB PO (19:46)
[2023-11-26] MEDS: Sertraline HCL 25 MG TABLET 12.5 MG PO (19:46)
[2023-11-26 19:58] VITALS: BP 120/77; PULSE 99; RESP 14; TEMP 37.1; O2SAT 98
[2023-11-27 03:33] VITALS: BP 99/58; PULSE 82; RESP 16; TEMP 36.2; O2SAT 96
[2023-11-27 07:23] VITALS: BP 102/59; PULSE 92; RESP 16; TEMP 36.4; O2SAT 96
[2023-11-27] MEDS: Lidocaine 4 % Patch ADH..PATCH 1 PATCH TRANSDERMA (08:18)
[2023-11-27] MEDS: ARIPiprazole 5 MG TABLET 2.5 MG PO (08:18)
[2023-11-27] MEDS: Apixaban 5 MG TABLET PO ×2 (08:18→20:06)
--- NOTE | 2023-11-27 11:53 | HO.PM.IMPN ---
Subjective Subjective Date of Service: 11/27/23 Interval History: seen and examined. no new issues reported Review of Systems Review of Systems: Yes all other systems are reviewed and are negative Physical Exam Vital Signs: Vital Signs: Last Vital Signs Temp 97.5 F 11/27/23 07:23 Pulse 92 11/27/23 07:23 Resp 16 11/27/23 07:23 BP 102/59 L 11/27/23 07:23 Pulse Ox 96 11/27/23 07:23 O2 Del Method Room Air 11/27/23 07:23 O2 Flow Rate 2 09/17/23 12:00 BMI result Body Mass Index 49.2 General - no acute distress, appears comfortable Cardiovascular - regular rate and rhythm, S1-S2 Lungs - normal respiratory effort, clear to auscultation bilaterally, no wheezing Abdomen - soft, nontender, no rebound or guarding Extremities - no edema bilaterally Neuro - awake and alert, no focal deficits Objective Data Active Medications Acetaminophen (Acetaminophen 325 Mg Tablet) 650 mg PO Q6H PRN PRN Reason: Pain, Mild (Pain Scale 1-3) Last Admin: 11/26/23 19:45 Dose: 650 mg Documented By: KASI Apixaban (Apixaban 5 Mg Tablet) 5 mg PO BID [facility] Stop: 02/25/25 21:01 Last Admin: 11/27/23 08:18 Dose: 5 mg Documented By: CASSANDRA Aripiprazole (Aripiprazole 5 Mg Tablet) 2.5 mg PO DAILY [facility] Last Admin: 11/27/23 08:18 Dose: 2.5 mg Documented By: CASSANDRA Calcium Carbonate (Calcium Carbonate 750 Mg Tab.Chew) 750 mg PO Q6H PRN PRN Reason: Heartburn Last Admin: 10/06/23 20:43 Dose: 750 mg Documented By: KASI Glucose (Glucose Gel 15 Gm Gel..Gram.) 15 gm PO Q15M PRN; Protocol PRN Reason: per Hypoglycemia Standing Ord. Dextrose (D10) 250 mls @ 750 mls/hr IV Q15M PRN; Protocol PRN Reason: per Hypoglycemia Standing Ord. Lidocaine (Lidocaine 4 % Patch Adh..Patch) 1 patch TRANSDERMA DAILY [facility]; Protocol Last Admin: 11/27/23 08:18 Dose: 1 patch Documented By: HO.MCGINNM Sertraline HCl (Sertraline Hcl 25 Mg Tablet) 12.5 mg PO BEDTIME [facility] Last Admin: 11/26/23 19:46 Dose: 12.5 mg Documented By: KASI Trazodone HCl (Trazodone Hcl 25 Mg Halftab) 25 mg PO BEDTIME [facility] Last Admin: 11/26/23 19:46 Dose: 25 mg Documented By: KASI Labs 11/24/23 06:12 11/24/23 06:12 Assessment and Plan (1) Acute DVT (deep venous thrombosis): Status: Acute Plan 53yo M with DM2, HTN, asthma presented to ED after falling and on the ground x9hr admitted for CHITO + hyperK from rhabdomyolysis remains stable, no new issues acute/chronic DVT R CFV - apixaban 5 mg bid; VQ nondiagnostic for PE chronic normocytic anemia - negative FOBT, normal B12/FA/iron, s/p epo for anemia of chronic disease sinus tachycardia-intermittent - improving acute diarrhea - resolved; GI panel negative; Cdiff colonization but was treated with 10d of vancomycin given symptoms CHITO/severe hyperK/acute metabolic acidosis due to ATN from rhabdomyolysis - was dialyzed; Permacath had been placed 07/16/23 and changed 09/29/23, removed 10/14/23 due to renal recovery, SCr stable <2 - off fludrocortisone + bicarbonate supplementation - outpt f/u with [facility] [place] Nephrology hypoK- resolved. chronic leg/back pain- gabapentin dysphagia- resolved; tolerating regular diet mood disorder - continue home medications - continue aripiprazole, trazodone, sertraline; Psyhc consulted 08/24/23 DM2, A1c 6.1- stable blood glucose morbid obesity- diet/exercise counseling VTE ppx- apixaban dispo- pt refuses STR as recommended by PT; awaiting insurance for VNA coverage for home In my clinical judgment, the patient requires continued inpatient hospitalization for the following reasons: safe disposition Total time managing care of this patient today: 25 minutes. Quality Stroke Does the patient have a stroke diagnosis?: No VTE Prior VTE?: No VTE Risk Level:: Medical - moderate - high VTE Device Contraindication: N/A - Device Ordered VTE Drug Contraindication: N/A - Med Ordered
[2023-11-27 15:15] VITALS: BP 119/94; PULSE 122; RESP 18; TEMP 36.6; O2SAT 99
[2023-11-27 19:11] VITALS: BP 122/74; PULSE 103; RESP 16; TEMP 36.6; O2SAT 98
[2023-11-27] MEDS: traZODone HCL 25 MG HALFTAB PO (20:06)
[2023-11-27] MEDS: Sertraline HCL 25 MG TABLET 12.5 MG PO (20:06)
[2023-11-28 03:17] VITALS: BP 111/61; PULSE 105; RESP 18; TEMP 36.8; O2SAT 95
[2023-11-28 07:26] VITALS: BP 119/68; PULSE 101; RESP 18; TEMP 36.8; O2SAT 98
[2023-11-28] MEDS: Apixaban 5 MG TABLET PO ×2 (08:56→20:59)
[2023-11-28] MEDS: Lidocaine 4 % Patch ADH..PATCH 1 PATCH TRANSDERMA (08:56)
[2023-11-28] MEDS: ARIPiprazole 5 MG TABLET 2.5 MG PO (08:58)
--- NOTE | 2023-11-28 09:10 | P.PNIM_ITS ---
Subjective Subjective Date of Service: 11/28/23 Interval History: seen and examined. no new issues reported Review of Systems Review of Systems: Yes all other systems are reviewed and are negative Physical Exam 2 Vital Signs: Vital Signs: Last Vital Signs Temp 98.3 F 11/28/23 07:26 Pulse 101 H 11/28/23 07:26 Resp 18 11/28/23 07:26 BP 119/68 11/28/23 07:26 Pulse Ox 98 11/28/23 07:26 O2 Del Method Room Air 11/28/23 07:26 O2 Flow Rate 2 09/17/23 12:00 BMI result Body Mass Index 49.2 General - no acute distress, appears comfortable Cardiovascular - regular rate and rhythm, S1-S2 Lungs - normal respiratory effort, clear to auscultation bilaterally, no wheezing Abdomen - soft, nontender, no rebound or guarding Extremities - no edema bilaterally Neuro - awake and alert, no focal deficits Objective Data Active Medications Acetaminophen (Acetaminophen 325 Mg Tablet) 650 mg PO Q6H PRN PRN Reason: Pain, Mild (Pain Scale 1-3) Last Admin: 11/26/23 19:45 Dose: 650 mg Documented By: KASI Apixaban (Apixaban 5 Mg Tablet) 5 mg PO BID [facility] Stop: 02/25/25 21:01 Last Admin: 11/28/23 08:56 Dose: 5 mg Documented By: CASSANDRA Aripiprazole (Aripiprazole 5 Mg Tablet) 2.5 mg PO DAILY [facility] Last Admin: 11/28/23 08:58 Dose: 2.5 mg Documented By: CASSANDRA Calcium Carbonate (Calcium Carbonate 750 Mg Tab.Chew) 750 mg PO Q6H PRN PRN Reason: Heartburn Last Admin: 10/06/23 20:43 Dose: 750 mg Documented By: KASI Glucose (Glucose Gel 15 Gm Gel..Gram.) 15 gm PO Q15M PRN; Protocol PRN Reason: per Hypoglycemia Standing Ord. Dextrose (D10) 250 mls @ 750 mls/hr IV Q15M PRN; Protocol PRN Reason: per Hypoglycemia Standing Ord. Lidocaine (Lidocaine 4 % Patch Adh..Patch) 1 patch TRANSDERMA DAILY [facility]; Protocol Last Admin: 11/28/23 08:56 Dose: 1 patch Documented By: HO.MCGINNM Sertraline HCl (Sertraline Hcl 25 Mg Tablet) 12.5 mg PO BEDTIME [facility] Last Admin: 11/27/23 20:06 Dose: 12.5 mg Documented By: MICHAEL Trazodone HCl (Trazodone Hcl 25 Mg Halftab) 25 mg PO BEDTIME [facility] Last Admin: 11/27/23 20:06 Dose: 25 mg Documented By: IMCHAEL Labs 11/24/23 06:12 11/24/23 06:12 Assessment and Plan (1) Acute DVT (deep venous thrombosis): Status: Acute Plan 53yo M with DM2, HTN, asthma presented to ED after falling and on the ground x9hr admitted for CHITO + hyperK from rhabdomyolysis remains stable, no new issues acute/chronic DVT R CFV - apixaban 5 mg bid; VQ nondiagnostic for PE chronic normocytic anemia - negative FOBT, normal B12/FA/iron, s/p epo for anemia of chronic disease sinus tachycardia-intermittent - improving acute diarrhea - resolved; GI panel negative; Cdiff colonization but was treated with 10d of vancomycin given symptoms CHITO/severe hyperK/acute metabolic acidosis due to ATN from rhabdomyolysis - was dialyzed; Permacath had been placed 07/16/23 and changed 09/29/23, removed 10/14/23 due to renal recovery, SCr stable <2 - off fludrocortisone + bicarbonate supplementation - outpt f/u with [facility] [place] Nephrology hypoK- resolved. chronic leg/back pain- gabapentin dysphagia- resolved; tolerating regular diet mood disorder - continue home medications - continue aripiprazole, trazodone, sertraline; Psyhc consulted 08/24/23 DM2, A1c 6.1- stable blood glucose morbid obesity- diet/exercise counseling VTE ppx- apixaban dispo- pt refuses STR as recommended by PT; awaiting insurance for VNA coverage for home In my clinical judgment, the patient requires continued inpatient hospitalization for the following reasons: safe disposition Total time managing care of this patient today: 25 minutes. Quality Stroke Does the patient have a stroke diagnosis?: No VTE Prior VTE?: No VTE Risk Level:: Medical - moderate - high VTE Device Contraindication: N/A - Device Ordered VTE Drug Contraindication: N/A - Med Ordered
--- NOTE | 2023-11-28 11:30 | HO.PM.IMPN ---
Subjective Subjective Date of Service: 11/28/23 Interval History: seen and examined. no new issues reported Review of Systems Review of Systems: Yes all other systems are reviewed and are negative Physical Exam Vital Signs: Vital Signs: Last Vital Signs Temp 98.3 F 11/28/23 07:26 Pulse 101 H 11/28/23 07:26 Resp 18 11/28/23 07:26 BP 119/68 11/28/23 07:26 Pulse Ox 98 11/28/23 07:26 O2 Del Method Room Air 11/28/23 07:26 O2 Flow Rate 2 09/17/23 12:00 BMI result Body Mass Index 49.2 General - no acute distress, appears comfortable Cardiovascular - regular rate and rhythm, S1-S2 Lungs - normal respiratory effort, clear to auscultation bilaterally, no wheezing Abdomen - soft, nontender, no rebound or guarding Extremities - no edema bilaterally Neuro - awake and alert, no focal deficits Objective Data Active Medications Acetaminophen (Acetaminophen 325 Mg Tablet) 650 mg PO Q6H PRN PRN Reason: Pain, Mild (Pain Scale 1-3) Last Admin: 11/26/23 19:45 Dose: 650 mg Documented By: KASI Apixaban (Apixaban 5 Mg Tablet) 5 mg PO BID [facility] Stop: 02/25/25 21:01 Last Admin: 11/28/23 08:56 Dose: 5 mg Documented By: CASSANDRA Aripiprazole (Aripiprazole 5 Mg Tablet) 2.5 mg PO DAILY [facility] Last Admin: 11/28/23 08:58 Dose: 2.5 mg Documented By: CASSANDRA Calcium Carbonate (Calcium Carbonate 750 Mg Tab.Chew) 750 mg PO Q6H PRN PRN Reason: Heartburn Last Admin: 10/06/23 20:43 Dose: 750 mg Documented By: KASI Glucose (Glucose Gel 15 Gm Gel..Gram.) 15 gm PO Q15M PRN; Protocol PRN Reason: per Hypoglycemia Standing Ord. Dextrose (D10) 250 mls @ 750 mls/hr IV Q15M PRN; Protocol PRN Reason: per Hypoglycemia Standing Ord. Lidocaine (Lidocaine 4 % Patch Adh..Patch) 1 patch TRANSDERMA DAILY [facility]; Protocol Last Admin: 11/28/23 08:56 Dose: 1 patch Documented By: HO.MCGINNM Sertraline HCl (Sertraline Hcl 25 Mg Tablet) 12.5 mg PO BEDTIME [facility] Last Admin: 11/27/23 20:06 Dose: 12.5 mg Documented By: MICHAEL Trazodone HCl (Trazodone Hcl 25 Mg Halftab) 25 mg PO BEDTIME [facility] Last Admin: 11/27/23 20:06 Dose: 25 mg Documented By: MICHAEL Labs 11/24/23 06:12 11/24/23 06:12 Assessment and Plan (1) Acute DVT (deep venous thrombosis): Status: Acute Plan 53yo M with DM2, HTN, asthma presented to ED after falling and on the ground x9hr admitted for CHITO + hyperK from rhabdomyolysis remains stable, no new issues acute/chronic DVT R CFV - apixaban 5 mg bid; VQ nondiagnostic for PE chronic normocytic anemia - negative FOBT, normal B12/FA/iron, s/p epo for anemia of chronic disease sinus tachycardia-intermittent - improving acute diarrhea - resolved; GI panel negative; Cdiff colonization but was treated with 10d of vancomycin given symptoms CHITO/severe hyperK/acute metabolic acidosis due to ATN from rhabdomyolysis - was dialyzed; Permacath had been placed 07/16/23 and changed 09/29/23, removed 10/14/23 due to renal recovery, SCr stable <2 - off fludrocortisone + bicarbonate supplementation - outpt f/u with [facility] [place] Nephrology hypoK- resolved. chronic leg/back pain- gabapentin dysphagia- resolved; tolerating regular diet mood disorder - continue home medications - continue aripiprazole, trazodone, sertraline; Psyhc consulted 08/24/23 DM2, A1c 6.1- stable blood glucose morbid obesity- diet/exercise counseling VTE ppx- apixaban dispo- pt refuses STR as recommended by PT; awaiting insurance for VNA coverage for home In my clinical judgment, the patient requires continued inpatient hospitalization for the following reasons: safe disposition Total time managing care of this patient today: 25 minutes. Quality Stroke Does the patient have a stroke diagnosis?: No VTE Prior VTE?: No VTE Risk Level:: Medical - moderate - high VTE Device Contraindication: N/A - Device Ordered VTE Drug Contraindication: N/A - Med Ordered
[2023-11-28 15:02] VITALS: BP 113/69; PULSE 105; RESP 16; TEMP 36.9; O2SAT 96
[2023-11-28 19:42] VITALS: BP 130/74; PULSE 103; RESP 17; TEMP 37.3; O2SAT 98
[2023-11-28] MEDS: traZODone HCL 25 MG HALFTAB PO (20:59)
[2023-11-28] MEDS: Sertraline HCL 25 MG TABLET 12.5 MG PO (20:59)
[2023-11-29 03:54] VITALS: BP 133/80; PULSE 96; RESP 16; TEMP 36.9; O2SAT 97
[2023-11-29 07:41] VITALS: BP 116/68; PULSE 91; RESP 17; TEMP 36.3; O2SAT 98
[2023-11-29] MEDS: Apixaban 5 MG TABLET PO ×2 (08:39→20:34)
[2023-11-29] MEDS: Lidocaine 4 % Patch ADH..PATCH 1 PATCH TRANSDERMA (08:41)
[2023-11-29] MEDS: ARIPiprazole 5 MG TABLET 2.5 MG PO (08:41)
--- NOTE | 2023-11-29 09:33 | HO.PM.IMPN ---
Subjective Subjective Date of Service: 11/29/23 Interval History: seen and examined. no new issues reported Review of Systems Review of Systems: Yes all other systems are reviewed and are negative Physical Exam Vital Signs: Vital Signs: Last Vital Signs Temp 97.4 F 11/29/23 07:41 Pulse 91 11/29/23 07:41 Resp 17 11/29/23 07:41 BP 116/68 11/29/23 07:41 Pulse Ox 98 11/29/23 07:41 O2 Del Method Room Air 11/29/23 07:41 O2 Flow Rate 2 09/17/23 12:00 BMI result Body Mass Index 49.2 General - no acute distress, appears comfortable Cardiovascular - regular rate and rhythm, S1-S2 Lungs - normal respiratory effort, clear to auscultation bilaterally, no wheezing Abdomen - soft, nontender, no rebound or guarding Extremities - no edema bilaterally Neuro - awake and alert, no focal deficits Objective Data Active Medications Acetaminophen (Acetaminophen 325 Mg Tablet) 650 mg PO Q6H PRN PRN Reason: Pain, Mild (Pain Scale 1-3) Last Admin: 11/26/23 19:45 Dose: 650 mg Documented By: KASI Apixaban (Apixaban 5 Mg Tablet) 5 mg PO BID [facility] Stop: 02/25/25 21:01 Last Admin: 11/29/23 08:39 Dose: 5 mg Documented By: CASSANDRA Aripiprazole (Aripiprazole 5 Mg Tablet) 2.5 mg PO DAILY [facility] Last Admin: 11/29/23 08:41 Dose: 2.5 mg Documented By: CASSANDRA Calcium Carbonate (Calcium Carbonate 750 Mg Tab.Chew) 750 mg PO Q6H PRN PRN Reason: Heartburn Last Admin: 10/06/23 20:43 Dose: 750 mg Documented By: KASI Glucose (Glucose Gel 15 Gm Gel..Gram.) 15 gm PO Q15M PRN; Protocol PRN Reason: per Hypoglycemia Standing Ord. Dextrose (D10) 250 mls @ 750 mls/hr IV Q15M PRN; Protocol PRN Reason: per Hypoglycemia Standing Ord. Lidocaine (Lidocaine 4 % Patch Adh..Patch) 1 patch TRANSDERMA DAILY [facility]; Protocol Last Admin: 11/29/23 08:41 Dose: 1 patch Documented By: CASSANDRA Sertraline HCl (Sertraline Hcl 25 Mg Tablet) 12.5 mg PO BEDTIME [facility] Last Admin: 11/28/23 20:59 Dose: 12.5 mg Documented By: QUINTON Trazodone HCl (Trazodone Hcl 25 Mg Halftab) 25 mg PO BEDTIME [facility] Last Admin: 11/28/23 20:59 Dose: 25 mg Documented By: QUINTON Labs 11/24/23 06:12 11/24/23 06:12 Assessment and Plan (1) Acute DVT (deep venous thrombosis): Status: Acute Plan 53yo M with DM2, HTN, asthma presented to ED after falling and on the ground x9hr admitted for CHITO + hyperK from rhabdomyolysis remains stable, no new issues acute/chronic DVT R CFV - apixaban 5 mg bid; VQ nondiagnostic for PE chronic normocytic anemia - negative FOBT, normal B12/FA/iron, s/p epo for anemia of chronic disease sinus tachycardia-intermittent - improving acute diarrhea - resolved; GI panel negative; Cdiff colonization but was treated with 10d of vancomycin given symptoms CHITO/severe hyperK/acute metabolic acidosis due to ATN from rhabdomyolysis - was dialyzed; Permacath had been placed 07/16/23 and changed 09/29/23, removed 10/14/23 due to renal recovery, SCr stable <2 - off fludrocortisone + bicarbonate supplementation - outpt f/u with [facility] [place] Nephrology hypoK- resolved. chronic leg/back pain- gabapentin dysphagia- resolved; tolerating regular diet mood disorder - continue home medications - continue aripiprazole, trazodone, sertraline; Psyhc consulted 08/24/23 DM2, A1c 6.1- stable blood glucose morbid obesity- diet/exercise counseling VTE ppx- apixaban dispo- pt refuses STR as recommended by PT; awaiting insurance for VNA coverage for home In my clinical judgment, the patient requires continued inpatient hospitalization for the following reasons: safe disposition Total time managing care of this patient today: 25 minutes. Quality Stroke Does the patient have a stroke diagnosis?: No VTE Prior VTE?: No VTE Risk Level:: Medical - moderate - high VTE Device Contraindication: N/A - Device Ordered VTE Drug Contraindication: N/A - Med Ordered
--- NOTE | 2023-11-29 13:14 | MHC.CM.PN ---
EMR REVIEWED AND PT REMAINS MEDICALLY CLEARED. PT IS AWAITING INSURANCE PLAN TO BE CONVERTED TO A [employer] PLAN TO ENABLE MORE SERVICES IN HOME. PER [facility] [employer], THE MIGHT NOT GO INTO EFFECT UNTIL DEC 09. PT MADE AWARE. PT HAS NEW TELEPHONE # : [phone]. [facility] [facility] [place]PD[facility].
[2023-11-29 15:18] VITALS: BP 136/72; PULSE 108; RESP 18; TEMP 37.2; O2SAT 99
[2023-11-29 19:30] VITALS: BP 127/74; PULSE 118; RESP 20; TEMP 36.3; O2SAT 96
[2023-11-29] MEDS: Sertraline HCL 25 MG TABLET 12.5 MG PO (20:34)
[2023-11-29] MEDS: traZODone HCL 25 MG HALFTAB PO (20:34)
[2023-11-30 03:43] VITALS: BP 122/82; PULSE 98; RESP 20; TEMP 36.8; O2SAT 97
[2023-11-30 07:46] VITALS: BP 134/85; PULSE 96; RESP 14; TEMP 36.8; O2SAT 97
[2023-11-30] MEDS: Apixaban 5 MG TABLET PO ×2 (09:33→21:01)
[2023-11-30] MEDS: ARIPiprazole 5 MG TABLET 2.5 MG PO (09:33)
[2023-11-30] MEDS: Lidocaine 4 % Patch ADH..PATCH 1 PATCH TRANSDERMA (09:35)
[2023-11-30] MEDS: Acetaminophen 325 MG TABLET 650 MG PO (11:51)
--- NOTE | 2023-11-30 12:11 | P.PNIM_ITS ---
Subjective Subjective Date of Service: 11/30/23 Interval History: Being followed for placement. Offers no acute complaints ambulating in hallways tolerating diet, no fevers, no chills, no headache, no lightheadedness or dizziness. Review of Systems All other system reviewed and are negative Physical Exam 2 Vital Signs: Vital Signs: Last Vital Signs Temp 98.3 F 11/30/23 07:46 Pulse 96 11/30/23 07:46 Resp 14 11/30/23 07:46 BP 134/85 11/30/23 07:46 Pulse Ox 97 11/30/23 07:46 O2 Del Method Room Air 11/30/23 07:46 O2 Flow Rate 2 09/17/23 12:00 BMI result Body Mass Index 49.2 Const: Other: Gen: in no acute distress Lungs: normal effort Abd: obese Ext: no edema Neuro: alert and oriented x3, no focal findings Objective Data Active Medications Acetaminophen (Acetaminophen 325 Mg Tablet) 650 mg PO Q6H PRN PRN Reason: Pain, Mild (Pain Scale 1-3) Last Admin: 11/30/23 11:51 Dose: 650 mg Documented By: MONICA Apixaban (Apixaban 5 Mg Tablet) 5 mg PO BID [facility] Stop: 02/25/25 21:01 Last Admin: 11/30/23 09:33 Dose: 5 mg Documented By: MONICA Aripiprazole (Aripiprazole 5 Mg Tablet) 2.5 mg PO DAILY [facility] Last Admin: 11/30/23 09:33 Dose: 2.5 mg Documented By: MONICA Calcium Carbonate (Calcium Carbonate 750 Mg Tab.Chew) 750 mg PO Q6H PRN PRN Reason: Heartburn Last Admin: 10/06/23 20:43 Dose: 750 mg Documented By: KASI Glucose (Glucose Gel 15 Gm Gel..Gram.) 15 gm PO Q15M PRN; Protocol PRN Reason: per Hypoglycemia Standing Ord. Dextrose (D10) 250 mls @ 750 mls/hr IV Q15M PRN; Protocol PRN Reason: per Hypoglycemia Standing Ord. Lidocaine (Lidocaine 4 % Patch Adh..Patch) 1 patch TRANSDERMA DAILY [facility]; Protocol Last Admin: 11/30/23 09:35 Dose: 1 patch Documented By: MONICA Sertraline HCl (Sertraline Hcl 25 Mg Tablet) 12.5 mg PO BEDTIME JOVANNY Last Admin: 11/29/23 20:34 Dose: 12.5 mg Documented By: RICARDO Trazodone HCl (Trazodone Hcl 25 Mg Halftab) 25 mg PO BEDTIME [facility] Last Admin: 11/29/23 20:34 Dose: 25 mg Documented By: RICARDO Labs 11/24/23 06:12 11/24/23 06:12 Assessment and Plan (1) Acute DVT (deep venous thrombosis): Status: Acute Plan 53yo M with DM2, HTN, asthma presented to ED after falling and on the ground x9hr admitted for CHITO + hyperK from rhabdomyolysis acute/chronic DVT R CFV - apixaban 5 mg bid; VQ nondiagnostic for PE chronic normocytic anemia - negative FOBT, normal B12/FA/iron, s/p epo for anemia of chronic disease sinus tachycardia - resolved acute diarrhea - resolved; GI panel negative; Cdiff colonization but was treated with 10d of vancomycin given symptoms CHITO/severe hyperK/acute metabolic acidosis due to ATN from rhabdomyolysis - was dialyzed; Permacath had been placed 07/16/23 and changed 09/29/23, removed 10/14/23 due to renal recovery, SCr stable <2 - off fludrocortisone + bicarbonate supplementation - outpt f/u with [facility] [place] Nephrology hypoK - resolved chronic leg/back pain-stable dysphagia - resolved; tolerating regular diet mood disorder- - continue aripiprazole, trazodone, sertraline; Psyhc consulted 08/24/23 DM2, A1c 6.1 - stable blood glucose, was on metformin at home morbid obesity counseling done recommend low-calorie diet VTE ppx - apixaban dispo - pt refuses STR as recommended by PT; awaiting insurance for VNA coverage for home In my clinical judgment, the patient requires continued inpatient hospitalization for safe disposition Quality Stroke Does the patient have a stroke diagnosis?: No VTE Prior VTE?: No VTE Risk Level:: Medical - moderate - high VTE Device Contraindication: N/A - Device Ordered VTE Drug Contraindication: N/A - Med Ordered
[2023-11-30 15:17] VITALS: BP 120/76; PULSE 107; RESP 18; TEMP 36.8; O2SAT 98
[2023-11-30 19:44] VITALS: BP 113/66; PULSE 95; RESP 18; TEMP 36.3; O2SAT 99
[2023-11-30] MEDS: traZODone HCL 25 MG HALFTAB PO (21:01)
[2023-11-30] MEDS: Sertraline HCL 25 MG TABLET 12.5 MG PO (21:01)
[2023-12-01 02:22] VITALS: BP 127/71; PULSE 91; RESP 16; TEMP 36.8; O2SAT 96
[2023-12-01 07:05] LABS: Hematocrit 32.9 % (42.0-52.0); Hemoglobin 10.4 g/dl (14.0-18.0); Mean Corpuscular HGB Conc 31.6 g/dl (31.0-36.0); Mean Corpuscular Volume 94.8 fL (80.0-98.0); Mean Platelet Volume 8.7 fL (9.4-12.4); Platelet Count 390 X10*3/uL (160-400); Red Blood Count 3.47 X10*6/uL (4.60-5.80); Red Cell Distribution Width 12.1 % (11.0-16.0); White Blood Count 7.8 X10*3/uL (4.8-10.8)
[2023-12-01 07:06] LABS: Anion Gap 12 (12-20); Blood Urea Nitrogen 29 mg/dL (9-16); Calcium 9.8 mg/dL (8.4-10.2); Carbon Dioxide 23 mmol/L (22-29); Chloride 108 mmol/L (96-108); Creatinine Clr Calc Pharmacy 62.2; Estimated Glomerular Filt Rate 36; Glucose Random 93 mg/dL (60-115); Sodium 139 mmol/L (135-145)
[2023-12-01 07:21] VITALS: BP 131/87; PULSE 103; RESP 16; TEMP 36.3; O2SAT 98
[2023-12-01] MEDS: ARIPiprazole 5 MG TABLET 2.5 MG PO (09:20)
[2023-12-01] MEDS: Apixaban 5 MG TABLET PO ×2 (09:20→19:15)
[2023-12-01] MEDS: Acetaminophen 325 MG TABLET 650 MG PO (09:20)
[2023-12-01] MEDS: Lidocaine 4 % Patch ADH..PATCH 1 PATCH TRANSDERMA (09:21)
--- NOTE | 2023-12-01 09:58 | HO.PM.IMPN ---
Subjective Subjective Date of Service: 12/01/23 Interval History: Being followed for placement No acute events overnight Patient offers no complaints of nausea vomiting, no fevers, no chills, tolerating diet. Review of Systems All other system reviewed and are negative Physical Exam Vital Signs: Vital Signs: Last Vital Signs Temp 97.3 F 12/01/23 07:21 Pulse 103 H 12/01/23 07:21 Resp 16 12/01/23 07:21 BP 131/87 12/01/23 07:21 Pulse Ox 98 12/01/23 07:21 O2 Del Method Room Air 12/01/23 07:21 O2 Flow Rate 2 09/17/23 12:00 BMI result Body Mass Index 49.2 Const: Other: Gen: in no acute distress Lungs: normal effort Abd: obese Ext: no edema Neuro: alert and oriented x3, no focal findings Objective Data Active Medications Acetaminophen (Acetaminophen 325 Mg Tablet) 650 mg PO Q6H PRN PRN Reason: Pain, Mild (Pain Scale 1-3) Last Admin: 12/01/23 09:20 Dose: 650 mg Documented By: MNOICA Apixaban (Apixaban 5 Mg Tablet) 5 mg PO BID [facility] Stop: 02/25/25 21:01 Last Admin: 12/01/23 09:20 Dose: 5 mg Documented By: MONICA Aripiprazole (Aripiprazole 5 Mg Tablet) 2.5 mg PO DAILY [facility] Last Admin: 12/01/23 09:20 Dose: 2.5 mg Documented By: MONICA Calcium Carbonate (Calcium Carbonate 750 Mg Tab.Chew) 750 mg PO Q6H PRN PRN Reason: Heartburn Last Admin: 10/06/23 20:43 Dose: 750 mg Documented By: KASI Glucose (Glucose Gel 15 Gm Gel..Gram.) 15 gm PO Q15M PRN; Protocol PRN Reason: per Hypoglycemia Standing Ord. Dextrose (D10) 250 mls @ 750 mls/hr IV Q15M PRN; Protocol PRN Reason: per Hypoglycemia Standing Ord. Lidocaine (Lidocaine 4 % Patch Adh..Patch) 1 patch TRANSDERMA DAILY [facility]; Protocol Last Admin: 12/01/23 09:21 Dose: 1 patch Documented By: MONICA Sertraline HCl (Sertraline Hcl 25 Mg Tablet) 12.5 mg PO BEDTIME [facility] Last Admin: 11/30/23 21:01 Dose: 12.5 mg Documented By: RICARDO Trazodone HCl (Trazodone Hcl 25 Mg Halftab) 25 mg PO BEDTIME [facility] Last Admin: 11/30/23 21:01 Dose: 25 mg Documented By: RICARDO Labs 12/01/23 05:48 12/01/23 05:48 Labs: Laboratory Results - last 24 hr 12/01/23 05:48 MCV 94.8 MCH 30.0 MCHC 31.6 RDW 12.1 Plt Count 390 MPV 8.7 L Absolute Nucleated RBC 0.000 Nucleated RBC % (auto) 0.0 Anion Gap 12 Estim Creat Clear Calc 62.2 Estimated GFR 36 Random Glucose 93 Calcium 9.8 Phosphorus 4.0 Assessment and Plan (1) Acute DVT (deep venous thrombosis): Status: Acute Plan 53yo M with DM2, HTN, asthma presented to ED after falling and on the ground x9hr admitted for CHITO + hyperK from rhabdomyolysis acute/chronic DVT R CFV - continue apixaban 5 mg bid; VQ nondiagnostic for PE chronic normocytic anemia - negative FOBT, normal B12/FA/iron, s/p epo for anemia of chronic disease sinus tachycardia - resolved acute diarrhea - resolved; GI panel negative; Cdiff colonization but was treated with 10d of vancomycin given symptoms CHITO/severe hyperK/acute metabolic acidosis due to ATN from rhabdomyolysis - was dialyzed; Permacath had been placed 07/16/23 and changed 09/29/23, removed 10/14/23 due to renal recovery, SCr stable <2 - off fludrocortisone + bicarbonate supplementation - outpt f/u with [facility] [place] Nephrology hypoK - resolved chronic leg/back pain-stable dysphagia - resolved; tolerating regular diet mood disorder- - continue aripiprazole, trazodone, sertraline; Psyhc consulted 08/24/23 DM2, A1c 6.1 - stable blood glucose, was on metformin at home morbid obesity counseling done recommend low-calorie diet VTE ppx - apixaban dispo - awaiting insurance for VNA coverage for home In my clinical judgment, the patient requires continued inpatient hospitalization for safe disposition Quality Stroke Does the patient have a stroke diagnosis?: No VTE Prior VTE?: No VTE Risk Level:: Medical - moderate - high VTE Device Contraindication: N/A - Device Ordered VTE Drug Contraindication: N/A - Med Ordered
--- NOTE | 2023-12-01 14:52 | P.PNNP_ITS ---
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 Being followed for placement. Examined this morning, pt denies acute changes or concerns. Reports he continues to urinate regularly/comfortably Good appetite, eating well No events overnight. ongoing anemia, most recent H&H 10.4/32.9 on 11/30 creatinine remains stable, most recent 1.96 on 11/30 Physical Exam 2 Vital Signs: Vital Signs: Last Vital Signs Temp 97.3 F 12/01/23 07:21 Pulse 103 H 12/01/23 07:21 Resp 16 12/01/23 07:21 BP 131/87 12/01/23 07:21 Pulse Ox 98 12/01/23 07:21 O2 Del Method Room Air 12/01/23 07:21 O2 Flow Rate 2 09/17/23 12:00 BMI result Body Mass Index 49.2 Const: General: comfortable, no acute distress and alert Resp: Effort & Inspection: normal respiratory effort Auscultation: clear to auscultation bilaterally Cardio: Jugular venous distension: no JVD Palpation: normal PMI Rate: r egular rate Rhythm: regular rhythm Heart sounds: S1 normal heart sound present and S2 normal heart sound present GI: Palpation (GI): Soft to palpation and nontender : General: Yes no CVA tenderness Back/Spine/Pelvis: Back: no CVA tenderness Skin: Rashes: no rashes Objective Data Labs 12/01/23 05:48 12/01/23 05:48 Labs: Laboratory Results - last 24 hr 12/01/23 05:48 WBC 7.8 RBC 3.47 L Hgb 10.4 L Hct 32.9 L MCV 94.8 MCH 30.0 MCHC 31.6 RDW 12.1 Plt Count 390 MPV 8.7 L Absolute Nucleated RBC 0.000 Nucleated RBC % (auto) 0.0 Sodium 139 Potassium 4.0 Chloride 108 Carbon Dioxide 23 Anion Gap 12 BUN 29 H Creatinine 1.96 H Estim Creat Clear Calc 62.2 Estimated GFR 36 Random Glucose 93 Calcium 9.8 Phosphorus 4.0 Microbiology Microbiology Results: Microbiology 07/20/23 22:49 Blood - Venous Blood Culture - Final No growth after 5 days. 07/20/23 22:49 Blood - Venous Blood Culture - Final No growth after 5 days. 07/12/23 12:30 Blood - Venous Blood Culture - Final No growth after 5 days. 07/12/23 12:15 Blood - Venous Blood Culture - Final No growth after 5 days. 07/12/23 Unknown Urine Catheterized - Straight Catheter Urine Culture - Final No growth. 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 Recovered now, creatinine continues to remain stable will continue to montior CBC and administer procrit if needed. check CBC and BMP weekly continue to monitor blood pressures, acceptable at this time. C/W rest of current management Time Spent With Patient Time: Total time managing care of this patient today ____ minutes. Progress Note: Quality Stroke Does the patient have a stroke diagnosis?: No
--- NOTE | 2023-12-01 14:54 | MHC.CM.PN ---
CM SPOKE WITH PT WHO WISHES TO DC HOME ONCE HIS FRIEND GOES TO HIS HOME AND CLEANS/GROCERY SHOPS. CLARICE SPOKE WITH [facility] WHO ARE WILLING TO ACCEPT WITH A SOC WednesdayNov. PT IS AGREEABLE TO STAY UNTIL WednesdayDEC 05 AND WILL NEED A W/C TO GO HOME WITH. CLARICE SPOKE WITH [facility] WHO WILL ASSIST IN GETTING INFORMATION ABOUT W/C AT LOCAL [facility] FOR DONATION. CLARICE WILL CONTINUE TO FOLLOW FOR ANY CHANGES TO THIS PLAN.
[2023-12-01 15:55] VITALS: BP 130/87; PULSE 98; RESP 18; TEMP 36.7; O2SAT 98
[2023-12-01] MEDS: traZODone HCL 25 MG HALFTAB PO (19:15)
[2023-12-01] MEDS: Sertraline HCL 25 MG TABLET 12.5 MG PO (19:15)
[2023-12-01 19:21] VITALS: BP 123/76; PULSE 101; RESP 18; TEMP 37.1; O2SAT 98
[2023-12-02 04:00] VITALS: RESP 17
[2023-12-02 07:15] VITALS: BP 109/72; PULSE 105; RESP 18; TEMP 36.6; O2SAT 98
--- NOTE | 2023-12-02 08:44 | P.PNIM_ITS ---
Subjective Subjective Date of Service: 12/02/23 Interval History: Being followed for placement Denies acute symptoms of fever, no chills tolerating diet slept well, no acute events overnight. Review of Systems All other system reviewed and are negative Physical Exam 2 Vital Signs: Vital Signs: Last Vital Signs Temp 97.9 F 12/02/23 07:15 Pulse 105 H 12/02/23 07:15 Resp 18 12/02/23 07:15 BP 109/72 12/02/23 07:15 Pulse Ox 98 12/02/23 07:15 O2 Del Method Room Air 12/02/23 07:15 O2 Flow Rate 2 09/17/23 12:00 BMI result Body Mass Index 49.2 Const: Other: Gen: in no acute distress Lungs: normal effort Abd: obese Ext: no edema Neuro: alert and oriented x3, no focal findings Good peripheral pulses Objective Data Active Medications Acetaminophen (Acetaminophen 325 Mg Tablet) 650 mg PO Q6H PRN PRN Reason: Pain, Mild (Pain Scale 1-3) Last Admin: 12/01/23 09:20 Dose: 650 mg Documented By: MONICA Apixaban (Apixaban 5 Mg Tablet) 5 mg PO BID [facility] Stop: 02/25/25 21:01 Last Admin: 12/01/23 19:15 Dose: 5 mg Documented By: JOSE LUIS Aripiprazole (Aripiprazole 5 Mg Tablet) 2.5 mg PO DAILY [facility] Last Admin: 12/01/23 09:20 Dose: 2.5 mg Documented By: MONICA Calcium Carbonate (Calcium Carbonate 750 Mg Tab.Chew) 750 mg PO Q6H PRN PRN Reason: Heartburn Last Admin: 10/06/23 20:43 Dose: 750 mg Documented By: KASI Glucose (Glucose Gel 15 Gm Gel..Gram.) 15 gm PO Q15M PRN; Protocol PRN Reason: per Hypoglycemia Standing Ord. Dextrose (D10) 250 mls @ 750 mls/hr IV Q15M PRN; Protocol PRN Reason: per Hypoglycemia Standing Ord. Lidocaine (Lidocaine 4 % Patch Adh..Patch) 1 patch TRANSDERMA DAILY [facility]; Protocol Last Admin: 12/01/23 09:21 Dose: 1 patch Documented By: MONICA Sertraline HCl (Sertraline Hcl 25 Mg Tablet) 12.5 mg PO BEDTIME [facility] Last Admin: 12/01/23 19:15 Dose: 12.5 mg Documented By: JOSE LUIS Trazodone HCl (Trazodone Hcl 25 Mg Halftab) 25 mg PO BEDTIME [facility] Last Admin: 12/01/23 19:15 Dose: 25 mg Documented By: JOSE LUIS Labs 12/01/23 05:48 12/01/23 05:48 Assessment and Plan (1) Hypertension: Status: Acute (2) Acute DVT (deep venous thrombosis): Status: Acute Plan 53yo M with DM2, HTN, asthma presented to ED after falling and on the ground x9hr admitted for CHITO + hyperK from rhabdomyolysis acute/chronic DVT R CFV - continue apixaban 5 mg bid; VQ nondiagnostic for PE chronic normocytic anemia - negative FOBT, normal B12/FA/iron, s/p epo for anemia of chronic disease sinus tachycardia - resolved acute diarrhea - resolved; GI panel negative; Cdiff colonization but was treated with 10d of vancomycin given symptoms CHITO/severe hyperK/acute metabolic acidosis due to ATN from rhabdomyolysis - was dialyzed; Permacath had been placed 07/16/23 and changed 09/29/23, removed 10/14/23 due to renal recovery, SCr stable <2 - off fludrocortisone + bicarbonate supplementation - outpt f/u with [facility] [place] Nephrology hypoK - resolved chronic leg/back pain-stable dysphagia - resolved; tolerating regular diet mood disorder- - continue aripiprazole, trazodone, sertraline; Psyhc consulted 08/24/23 DM2, A1c 6.1 - stable blood glucose, was on metformin at home morbid obesity counseling done recommend low-calorie diet VTE ppx - apixaban dispo - awaiting insurance for VNA coverage for home In my clinical judgment, the patient requires continued inpatient hospitalization for safe disposition Quality Stroke Does the patient have a stroke diagnosis?: No VTE Prior VTE?: No VTE Risk Level:: Medical - moderate - high VTE Device Contraindication: N/A - Device Ordered VTE Drug Contraindication: N/A - Med Ordered
[2023-12-02] MEDS: Apixaban 5 MG TABLET PO ×2 (09:09→20:30)
[2023-12-02] MEDS: Acetaminophen 325 MG TABLET 650 MG PO (09:09)
[2023-12-02] MEDS: Lidocaine 4 % Patch ADH..PATCH 1 PATCH TRANSDERMA (09:09)
[2023-12-02] MEDS: ARIPiprazole 5 MG TABLET 2.5 MG PO (09:09)
[2023-12-02 15:59] VITALS: BP 111/70; PULSE 111; RESP 18; TEMP 36.6; O2SAT 98
[2023-12-02 19:41] VITALS: BP 132/85; PULSE 99; RESP 20; TEMP 36.9; O2SAT 97
[2023-12-02] MEDS: Sertraline HCL 25 MG TABLET 12.5 MG PO (20:29)
[2023-12-02] MEDS: traZODone HCL 25 MG HALFTAB PO (20:29)
[2023-12-03] MEDS: ARIPiprazole 5 MG TABLET 2.5 MG PO (08:04)
[2023-12-03] MEDS: Apixaban 5 MG TABLET PO ×2 (08:04→20:19)
[2023-12-03] MEDS: Lidocaine 4 % Patch ADH..PATCH 1 PATCH TRANSDERMA (08:04)
[2023-12-03 08:20] VITALS: BP 110/77; PULSE 91; RESP 12; TEMP 36.5; O2SAT 98
--- NOTE | 2023-12-03 09:45 | HO.PM.IMPN ---
Subjective Subjective Date of Service: 12/03/23 Interval History: Being followed for placement Offers no acute complaints No acute events overnight. Review of Systems All other system reviewed and are negative. Physical Exam Vital Signs: Vital Signs: Last Vital Signs Temp 97.7 F 12/03/23 08:20 Pulse 91 12/03/23 08:20 Resp 12 12/03/23 08:20 BP 110/77 12/03/23 08:20 Pulse Ox 98 12/03/23 08:20 O2 Del Method Room Air 12/03/23 08:20 O2 Flow Rate 2 09/17/23 12:00 BMI result Body Mass Index 49.2 Const: Other: Gen: in no acute distress Lungs: normal effort Abd: obese Ext: no edema Neuro: alert and oriented x3, no focal findings Good peripheral pulses Objective Data Active Medications Acetaminophen (Acetaminophen 325 Mg Tablet) 650 mg PO Q6H PRN PRN Reason: Pain, Mild (Pain Scale 1-3) Last Admin: 12/02/23 09:09 Dose: 650 mg Documented By: OSCAR Apixaban (Apixaban 5 Mg Tablet) 5 mg PO BID [facility] Stop: 02/25/25 21:01 Last Admin: 12/03/23 08:04 Dose: 5 mg Documented By: ROSENDO Aripiprazole (Aripiprazole 5 Mg Tablet) 2.5 mg PO DAILY [facility] Last Admin: 12/03/23 08:04 Dose: 2.5 mg Documented By: ROSENDO Calcium Carbonate (Calcium Carbonate 750 Mg Tab.Chew) 750 mg PO Q6H PRN PRN Reason: Heartburn Last Admin: 10/06/23 20:43 Dose: 750 mg Documented By: KASI Glucose (Glucose Gel 15 Gm Gel..Gram.) 15 gm PO Q15M PRN; Protocol PRN Reason: per Hypoglycemia Standing Ord. Dextrose (D10) 250 mls @ 750 mls/hr IV Q15M PRN; Protocol PRN Reason: per Hypoglycemia Standing Ord. Lidocaine (Lidocaine 4 % Patch Adh..Patch) 1 patch TRANSDERMA DAILY [facility]; Protocol Last Admin: 12/03/23 08:04 Dose: 1 patch Documented By: ROSENDO Sertraline HCl (Sertraline Hcl 25 Mg Tablet) 12.5 mg PO BEDTIME [facility] Last Admin: 12/02/23 20:29 Dose: 12.5 mg Documented By: JOSE LUIS Trazodone HCl (Trazodone Hcl 25 Mg Halftab) 25 mg PO BEDTIME [facility] Last Admin: 12/02/23 20:29 Dose: 25 mg Documented By: JOSE LUIS Labs 12/01/23 05:48 12/01/23 05:48 Assessment and Plan (1) Acute DVT (deep venous thrombosis): Status: Acute Plan 53yo M with DM2, HTN, asthma presented to ED after falling and on the ground x9hr admitted for CHITO + hyperK from rhabdomyolysis acute/chronic DVT R CFV - continue apixaban 5 mg bid; VQ nondiagnostic for PE chronic normocytic anemia - negative FOBT, normal B12/FA/iron, s/p epo for anemia of chronic disease sinus tachycardia - resolved acute diarrhea - resolved; GI panel negative; Cdiff colonization but was treated with 10d of vancomycin given symptoms CHITO/severe hyperK/acute metabolic acidosis due to ATN from rhabdomyolysis - was dialyzed; Permacath had been placed 07/16/23 and changed 09/29/23, removed 10/14/23 due to renal recovery, SCr stable <2 - off fludrocortisone + bicarbonate supplementation - outpt f/u with [facility] [place] Nephrology hypoK - resolved chronic leg/back pain-stable dysphagia - resolved; tolerating regular diet mood disorder- - continue aripiprazole, trazodone, sertraline; Psyhc consulted 08/24/23 DM2, A1c 6.1 - stable blood glucose, was on metformin at home morbid obesity counseling done recommend low-calorie diet VTE ppx - apixaban dispo - awaiting insurance for VNA coverage for home, recommend ambulation daily In my clinical judgment, the patient requires continued inpatient hospitalization for safe disposition Quality Stroke Does the patient have a stroke diagnosis?: No VTE Prior VTE?: No VTE Risk Level:: Medical - moderate - high VTE Device Contraindication: N/A - Device Ordered VTE Drug Contraindication: N/A - Med Ordered
[2023-12-03 16:18] VITALS: BP 113/75; PULSE 99; RESP 18; TEMP 36.6; O2SAT 97
[2023-12-03 19:53] VITALS: BP 117/74; PULSE 102; RESP 18; TEMP 36.8; O2SAT 98
[2023-12-03] MEDS: Sertraline HCL 25 MG TABLET 12.5 MG PO (20:19)
[2023-12-03] MEDS: traZODone HCL 25 MG HALFTAB PO (20:19)
[2023-12-04 03:41] VITALS: BP 89/55; PULSE 93; RESP 20; TEMP 36.2; O2SAT 97
[2023-12-04 04:05] VITALS: BP 107/72; PULSE 97
[2023-12-04 07:43] VITALS: BP 133/86; PULSE 95; RESP 18; TEMP 36.3; O2SAT 97
[2023-12-04] MEDS: Apixaban 5 MG TABLET PO ×2 (09:49→20:16)
[2023-12-04] MEDS: Lidocaine 4 % Patch ADH..PATCH 1 PATCH TRANSDERMA (09:49)
[2023-12-04] MEDS: ARIPiprazole 5 MG TABLET 2.5 MG PO (09:49)
--- NOTE | 2023-12-04 11:00 | P.PNIM_ITS ---
Subjective Subjective Date of Service: 12/04/23 Interval History: Being followed for placement No acute events overnight Offers no acute complaints tolerating diet no chest pain, no lightheadedness or dizziness. Review of Systems All other system reviewed and are negative. Physical Exam 2 Vital Signs: Vital Signs: Last Vital Signs Temp 97.3 F 12/04/23 07:43 Pulse 95 12/04/23 07:43 Resp 18 12/04/23 07:43 BP 133/86 12/04/23 07:43 Pulse Ox 97 12/04/23 07:43 O2 Del Method Room Air 12/04/23 07:43 O2 Flow Rate 2 09/17/23 12:00 BMI result Body Mass Index 49.2 Const: Other: Gen: in no acute distress Lungs: normal effort Abd: obese Ext: no edema Neuro: alert and oriented x3, no focal findings Good peripheral pulses Objective Data Active Medications Acetaminophen (Acetaminophen 325 Mg Tablet) 650 mg PO Q6H PRN PRN Reason: Pain, Mild (Pain Scale 1-3) Last Admin: 12/02/23 09:09 Dose: 650 mg Documented By: OSCAR Apixaban (Apixaban 5 Mg Tablet) 5 mg PO BID [facility] Stop: 02/25/25 21:01 Last Admin: 12/04/23 09:49 Dose: 5 mg Documented By: LUIS FELIPE Aripiprazole (Aripiprazole 5 Mg Tablet) 2.5 mg PO DAILY [facility] Last Admin: 12/04/23 09:49 Dose: 2.5 mg Documented By: LUIS FELIPE Calcium Carbonate (Calcium Carbonate 750 Mg Tab.Chew) 750 mg PO Q6H PRN PRN Reason: Heartburn Last Admin: 10/06/23 20:43 Dose: 750 mg Documented By: KASI Glucose (Glucose Gel 15 Gm Gel..Gram.) 15 gm PO Q15M PRN; Protocol PRN Reason: per Hypoglycemia Standing Ord. Dextrose (D10) 250 mls @ 750 mls/hr IV Q15M PRN; Protocol PRN Reason: per Hypoglycemia Standing Ord. Lidocaine (Lidocaine 4 % Patch Adh..Patch) 1 patch TRANSDERMA DAILY [facility]; Protocol Last Admin: 12/04/23 09:49 Dose: 1 patch Documented By: LUIS FELIPE Sertraline HCl (Sertraline Hcl 25 Mg Tablet) 12.5 mg PO BEDTIME [facility] Last Admin: 12/03/23 20:19 Dose: 12.5 mg Documented By: JAYME Trazodone HCl (Trazodone Hcl 25 Mg Halftab) 25 mg PO BEDTIME [facility] Last Admin: 12/03/23 20:19 Dose: 25 mg Documented By: JAYME Labs 12/01/23 05:48 12/01/23 05:48 Assessment and Plan (1) Acute DVT (deep venous thrombosis): Status: Acute Plan 53yo M with DM2, HTN, asthma presented to ED after falling and on the ground x9hr admitted for CHITO + hyperK from rhabdomyolysis acute/chronic DVT R CFV - continue apixaban 5 mg bid; VQ nondiagnostic for PE chronic normocytic anemia - negative FOBT, normal B12/FA/iron, s/p epo for anemia of chronic disease sinus tachycardia - resolved acute diarrhea - resolved; GI panel negative; Cdiff colonization but was treated with 10d of vancomycin given symptoms CHITO/severe hyperK/acute metabolic acidosis due to ATN from rhabdomyolysis - was dialyzed; Permacath had been placed 07/16/23 and changed 09/29/23, removed 10/14/23 due to renal recovery, SCr stable <2 - off fludrocortisone + bicarbonate supplementation - outpt f[place] [facility] [place] hypoK - resolved chronic leg/back pain-stable dysphagia - resolved; tolerating regular diet mood disorder- - continue aripiprazole, trazodone, sertraline; Psyhc consulted 08/24/23 DM2, A1c 6.1 - stable blood glucose, was on metformin at home morbid obesity counseling done recommend low-calorie diet VTE ppx - apixaban dispo - awaiting insurance for VNA coverage for home, recommend ambulation daily In my clinical judgment, the patient requires continued inpatient hospitalization for safe disposition Quality Stroke Does the patient have a stroke diagnosis?: No VTE Prior VTE?: No VTE Risk Level:: Medical - moderate - high VTE Device Contraindication: N/A - Device Ordered VTE Drug Contraindication: N/A - Med Ordered
[2023-12-04 15:29] VITALS: BP 115/74; PULSE 112; RESP 18; TEMP 37.4; O2SAT 98
[2023-12-04 19:36] VITALS: BP 122/75; PULSE 103; RESP 18; TEMP 36.4; O2SAT 97
[2023-12-04] MEDS: traZODone HCL 25 MG HALFTAB PO (20:16)
[2023-12-04] MEDS: Sertraline HCL 25 MG TABLET 12.5 MG PO (20:16)
[2023-12-05 03:10] VITALS: BP 110/70; PULSE 113; RESP 16; TEMP 36.2; O2SAT 98
[2023-12-05 08:00] VITALS: BP 118/71; PULSE 92; RESP 16; TEMP 36.9; O2SAT 97
[2023-12-05 08:39] VITALS: BP 146/81; PULSE 98; RESP 16; TEMP 36.7; O2SAT 99
--- NOTE | 2023-12-05 09:07 | P.DS_ITS ---
DS: Providers Provider Date of Service: 12/06/23 Date of admission: 07/12/23 00:57 Date of discharge: 12/06/23 Primary care physician: Haresh Recinos MD Consults: 07/11/23 15:10 Consult to Cardiology Stat [place]ing [place] [facility] Reason for consultation: elevated trop Has provider been notified: Yes 07/16/23 09:05 Consult to Orthopedics Routine Consulting Provider[place] [facility] Reason for consultation: ?compartment sydnrome RUE 08/20/23 11:47 Consult to Psychiatry Routine Consulting Provider: Psych Covering Reason for consultation: history of depression, off meds, now restarted, still appears depressed 08/24/23 09:33 Consult to Psychiatry Routine Consulting Provider: Psych Covering Reason for consultation: 2nd request , depression, ? change current management DS: Diagnosis Discharge Diagnosis (1) Acute DVT (deep venous thrombosis): Status: Acute DS: Summary Hospital Course Hospital Course: History of presenting illness: Date of Service: 07/12/23 Attending physician on admission: Sreedhar Duque Chief Complaint: Fall The patient is a 53-year-old male with a past medical history of diabetes mellitus type 2, hypertension, asthma, chronic back pain,? tobacco and morbid obesity who presented to the emergency department? via EMS after sustaining a fall.? According to EMS patient? reported he sustained a fall? on 07/11/2023 around 0300,? but was unable to get up for a while due to chronic back pain, ? He presented to the emergency department around 12:00pm.? ? On arrival to the emergency department patient was being difficult,? uncooperative with? medical staff,? refusing tests.?? ?initial laboratory data was significant for WBC of 16.1, potassium of 8.3, serum bicarb 14, anion gap 29, BUN 46, creatinine 5.35, calcium 6.9, AST? 2707, ALT 1885, alk phos 124, CK >15954,? troponin sensitivity 65673,? lactic acid? 3.9 ? Chipper, Dr Rutherford,? was consulted for elevated troponin,? do not b elieve this is an acute event as patient did not complain of any chest pain.? Attributes troponin due to rhabdomyolysis. Patient received? 3 L normal saline bolus, 10 units of IV push insulin, 10 mg of Lokelma, 2 g of calcium gluconate, hour long albuterol treatment and? 2 amps of bicarb? pushes.? Due to patient being uncooperative,? repeat labs were not done into the night,? where his repeat laboratory data was significant for serum sodium of 133, potassium 6.2, serum bicarb 12, BUN 54, creatinine 5.30, lactic acid 2.3, calcium 6.6, and phos 8.3.? Renal, Dr Youngblood,? consulted by ED physician,? due to patient repeat labs? and not making any urine.? Does not recommend dialysis at this time,? advices for bicarb drip an additional calcium gluconate.? IMAGING:? ?HEAD / CERVICAL SPINE CT:? no acute findings ?Right shoulder x-ray:? no acute findings ?Right elbow x-ray:? no acute findings ? Patient will be admitted to the ICU for hemodynamic monitoring due to high? probability of patient requiring emergent dialysis. Hospital course: 53yo M with DM2, HTN, asthma presented to ED after falling and on the ground x9hr admitted for CHITO + hyperK from rhabdomyolysis, hospital course was complicated by acute right common femoral vein and femoral vein DVT, hypotension, right shoulder pain and decreased range of motion, acute diarrhea, electrolyte abnormality, dysphagia. 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 with severe hyperK, acute metabolic acidosis required hemodialysis, Permacath had been placed 07/16/23 and changed 09/29/23, removed 10/14/23 due to renal recovery, SCr stable <2, bicarb normalized, noted to have hypotension required treatment with midodrine and Florinef now off all medications, stable blood pressure recommend outpatient follow-up with [facility], recommend to follow CBC and BMP in 1 week, in regard to chronic normocytic anemia patient received Procrit H&H remained stable had negative fecal occult blood testing, normal B12 folate and iron studies, noted to have brief dysphagia resolved currently tolerating regular diet. During hospitalization patient noted to have leg pain and swelling of right extremity, duplex ultrasound showed Acute on chronic DVT R common femoral vein, recommend to continue apixaban 5 mg bid; VQ nondiagnostic for PE Sinus tachycardia mild persistent asymptomatic, echo showed EF 55-60% wall motion abnormalities difficult to assess diastolic function indeterminate on the basis of this study. Acute diarrhea - resolved; GI panel negative; Cdiff colonization but was treated with 10d of vancomycin given symptoms. Chronic leg/back pain and limited shoulder movement recommend to take Tylenol on [id number] exercises. Mood disorder- no decompensation noted, continue aripiprazole, trazodone, sertraline; dosages reduced due to hypotension, Psyhc consulted 08/24/23, recommend outpatient follow-up with PCP DM2, A1c 6.1 - stable blood sugars metformin held due to CHITO, recommend to follow diabetic diet. Morbid obesity counseling done, recommend low-calorie diet. Time Attestation Discharge Coordination Time (in mins): 38 Quality: Safe Use of Opioids Does Pt have an Active Cancer Diagnosis on the Problem List?: No Quality: Stroke Does the patient have a stroke diagnosis?: No Physical Exam Vital Signs: Vital Signs: Last Vital Signs Temp 98.0 F 12/05/23 08:39 Pulse 98 12/05/23 08:39 Resp 16 12/05/23 08:39 BP 146/81 H 12/05/23 08:39 Pulse Ox 99 12/05/23 08:39 O2 Del Method Room Air 12/05/23 08:39 O2 Flow Rate 2 09/17/23 12:00 BMI result Body Mass Index 49.2 Const: Other: General awake alert, in no distress anicteric sclera Neck no JVD. CVS regular rate rhythm, Respiratory lungs clear to auscultation, no respiratory distress, no wheeze, no rhonchi. Gastrointestinal abdomen soft, non tender, bowel sounds audible. Extremities no edema. Neuro non focal, speech clear. Decreased range of motion right shoulder Skin no rash Psych appropriate affect Discharge Plan Discharge Anticipated Discharge Date/Time: 12/06/23 13:05 Patient Disposition: Home Health Service Discharge Diagnosis: Acute kidney injury Acute on chronic right leg DVT Referrals: Name,MD Haresh [Primary Care Provider] - 1 Week Discharge Medications: New trazodone 50 mg tablet 25 mg PO BEDTIME Qty: 30 0RF sertraline 25 mg Tablet 12.5 mg PO BEDTIME Qty: 30 0RF aripiprazole [Abilify] 5 mg Tablet 2.5 mg PO DAILY Qty: 30 0RF trazodone 50 mg tablet 25 mg PO BEDTIME Qty: 30 0RF Eliquis 5 mg Tablet 5 mg PO BID Qty: 60 0RF Continued albuterol sulfate 90 mcg/actuation HFA aerosol inhaler 2 puff INHALATION QID PRN (Reason: Shortness Of Breath Or Wheezing) Qty: 8.5 0RF acetaminophen [Arthritis Pain Relief (acetam)] 650 mg tablet extended release 650 mg PO Q6H PRN (Reason: fever) Discontinued metformin 500 mg tablet 250 mg PO BID trazodone 150 mg tablet 150 mg PO BEDTIME lisinopril 20 mg tablet 20 mg PO DAILY buprenorphine-naloxone 8-2 mg film 2 film sublingual DAILY buprenorphine-naloxone 4-1 mg film 1 film sublingual DAILY fluticasone propionate 50 mcg/actuation spray,suspension 2 spray intranasal DAILY lidocaine 5 % adhesive patch,medicated 1 patch topical DAILY aripiprazole 5 mg tablet 5 mg PO DAILY baclofen 10 mg tablet 10 mg PO TID PRN (Reason: muscle spasms) Discharge Orders: Discharge Order (Routine); Ordered 12/06/23 Ordered By: Kiya Giron Diet: Diabetic diet Activity on Discharge: As tolerated Stand Alone Forms: Patient Portal Discharge page Print Language: Canadian Other Ambulatory Orders: Basic Metabolic Panel (Routine) Timeframe: 1 Week Facility: [facility] - Location: Laboratory Ordered By: Kiya Giron Complete Blood Count no Diff (Routine) Timeframe: 1 Week Facility: [facility] - Location: Laboratory Ordered By: Kiya Giron Care Plan Goals: Diabetes mellitus follow diabetic diet Right leg DVT continue Eliquis started on 10/09 2023 Continue medications for mood disorder dosage reduced for hypotension Health Concerns: 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 Youngblood call for appointment 1-2 weeks. Assessment: As above
[2023-12-05] MEDS: Apixaban 5 MG TABLET PO ×2 (09:09→20:38)
[2023-12-05] MEDS: ARIPiprazole 5 MG TABLET 2.5 MG PO (09:09)
[2023-12-05] MEDS: Lidocaine 4 % Patch ADH..PATCH 1 PATCH TRANSDERMA (09:11)
--- NOTE | 2023-12-05 09:21 | P.PNIM_ITS ---
Subjective Subjective Date of Service: 12/05/23 Interval History: Being followed for placement No acute complaints, no events overnight. Review of Systems All other system reviewed and are negative. Physical Exam 2 Vital Signs: Vital Signs: Last Vital Signs Temp 98.0 F 12/05/23 08:39 Pulse 98 12/05/23 08:39 Resp 16 12/05/23 08:39 BP 146/81 H 12/05/23 08:39 Pulse Ox 99 12/05/23 08:39 O2 Del Method Room Air 12/05/23 08:39 O2 Flow Rate 2 09/17/23 12:00 BMI result Body Mass Index 49.2 Const: Other: General awake alert, in no distress anicteric sclera Neck no JVD. CVS regular rate rhythm, Respiratory lungs clear to auscultation, no respiratory distress, no wheeze, no rhonchi. Gastrointestinal abdomen soft, non tender, bowel sounds audible. Extremities no edema. Neuro non focal, speech clear. Decreased range of motion right shoulder Skin no rash Psych appropriate affect Objective Data Active Medications Acetaminophen (Acetaminophen 325 Mg Tablet) 650 mg PO Q6H PRN PRN Reason: Pain, Mild (Pain Scale 1-3) Last Admin: 12/02/23 09:09 Dose: 650 mg Documented By: OSCAR Apixaban (Apixaban 5 Mg Tablet) 5 mg PO BID [facility] Stop: 02/25/25 21:01 Last Admin: 12/05/23 09:09 Dose: 5 mg Documented By: LUIS FELIPE Aripiprazole (Aripiprazole 5 Mg Tablet) 2.5 mg PO DAILY [facility] Last Admin: 12/05/23 09:09 Dose: 2.5 mg Documented By: LUIS FELIPE Calcium Carbonate (Calcium Carbonate 750 Mg Tab.Chew) 750 mg PO Q6H PRN PRN Reason: Heartburn Last Admin: 10/06/23 20:43 Dose: 750 mg Documented By: KASI Glucose (Glucose Gel 15 Gm Gel..Gram.) 15 gm PO Q15M PRN; Protocol PRN Reason: per Hypoglycemia Standing Ord. Dextrose (D10) 250 mls @ 750 mls/hr IV Q15M PRN; Protocol PRN Reason: per Hypoglycemia Standing Ord. Lidocaine (Lidocaine 4 % Patch Adh..Patch) 1 patch TRANSDERMA DAILY [facility]; Protocol Last Admin: 12/05/23 09:11 Dose: 1 patch Documented By: LUIS FELIPE Sertraline HCl (Sertraline Hcl 25 Mg Tablet) 12.5 mg PO BEDTIME [facility] Last Admin: 12/04/23 20:16 Dose: 12.5 mg Documented By: JAYME Trazodone HCl (Trazodone Hcl 25 Mg Halftab) 25 mg PO BEDTIME [facility] Last Admin: 12/04/23 20:16 Dose: 25 mg Documented By: JAYME Labs 12/01/23 05:48 12/01/23 05:48 Assessment and Plan (1) Acute DVT (deep venous thrombosis): Status: Acute Plan 53yo M with DM2, HTN, asthma presented to ED after falling and on the ground x9hr admitted for CHITO + hyperK from rhabdomyolysis acute/chronic DVT R CFV - continue apixaban 5 mg bid; VQ nondiagnostic for PE chronic normocytic anemia - negative FOBT, normal B12/FA/iron, s/p epo for anemia of chronic disease sinus tachycardia - resolved acute diarrhea - resolved; GI panel negative; Cdiff colonization but was treated with 10d of vancomycin given symptoms CHITO/severe hyperK/acute metabolic acidosis due to ATN from rhabdomyolysis - was dialyzed; Permacath had been placed 07/16/23 and changed 09/29/23, removed 10/14/23 due to renal recovery, SCr stable <2 - off fludrocortisone + bicarbonate supplementation - outpt f/[place] with [facility] [place] [facility] hypoK - resolved chronic leg/back pain-stable dysphagia - resolved; tolerating regular diet mood disorder- - continue aripiprazole, trazodone, sertraline; Psyhc consulted 08/24/23 DM2, A1c 6.1 - stable blood glucose, was on metformin at home morbid obesity counseling done recommend low-calorie diet VTE ppx - apixaban dispo - awaiting insurance for VNA coverage for home, recommend ambulation daily In my clinical judgment, the patient requires continued inpatient hospitalization for safe disposition Quality Stroke Does the patient have a stroke diagnosis?: No VTE Prior VTE?: No VTE Risk Level:: Medical - moderate - high VTE Device Contraindication: N/A - Device Ordered VTE Drug Contraindication: N/A - Med Ordered
[2023-12-05 15:36] VITALS: BP 113/76; PULSE 107; RESP 18; TEMP 36.6; O2SAT 97
[2023-12-05 19:25] VITALS: BP 135/72; PULSE 107; RESP 18; TEMP 37.1; O2SAT 98
[2023-12-05] MEDS: Sertraline HCL 25 MG TABLET 12.5 MG PO (20:38)
[2023-12-05] MEDS: traZODone HCL 25 MG HALFTAB PO (20:38)
[2023-12-06 03:36] VITALS: BP 142/72; PULSE 94; RESP 18; TEMP 37.1; O2SAT 96
[2023-12-06 07:49] VITALS: BP 116/75; PULSE 96; RESP 18; TEMP 36.6; O2SAT 98
[2023-12-06] MEDS: Apixaban 5 MG TABLET PO (08:00)
[2023-12-06] MEDS: ARIPiprazole 5 MG TABLET 2.5 MG PO (08:00)
[2023-12-06] MEDS: Lidocaine 4 % Patch ADH..PATCH 1 PATCH TRANSDERMA (08:01)
--- NOTE | 2023-12-06 14:11 | W.MHC.F2F ---
Service Date Service Date: 12/06/23 Encounter Date of encounter: 12/06/23 Reasons for Services Signs and symptoms assessed: Acute kidney injury, leg pain back pain and limited range of motion right shoulder Reason for custodial: diabetic teaching and medication management Reason for physical therapy: home safety and mobility Homebound: Leaving the home is medically contraindicated at this time without the asist of a device and/or another person due th the listed conditions above and below. Reason homebound: weakness related to hospital stay Certification: Based on the above findings, I certify that this patient is confined to the home and needs intermittent custodial care, physical therapy and/or speech therapy, or continues to need occupational therapy. The patient is under my care, and I have initiated the establishment of the plan of care. The patient will be followed by a physician who will periodically review the plan of care. Time Spent With Patient Time: Total time managing care of this patient today ____ minutes.
--- NOTE | 2023-12-06 16:27 | MHC.CM.PN ---
PT HAD HIS INTAKE CALL WITH [facility] TODAY HE DISCHARGED HOME WITH A PLAN FOR [facility] TO START TOMORROW PT IS AWARE HE CAN SEND HIS FRIEND TO THE [facility] TO GET A W/C IF HE FEELS THE NEED HE REQUESTED HIS MEDS BE SENT TO [facility], REQUEST RELAYED TO [facility] TRANSPORTED HOME VIA PASQUALE PERDOMO
== END 2023-12-06 15:16 | disposition home health service (06) | DRG 674 ==
LOC: HO.ED 17:50 → HO.EDOVER 07-12 01:05 → HO.ICU 07-12 01:06 → HO.IMC 07-13 04:09 → HO.S3 09-03 16:05
PROVIDERS: Emergency Medicine; Family Medicine; Hospitalist; Internal Medicine; Internal Medicine Hypertension Specialist; Internal Medicine Pulmonary Disease; Nurse Practitioner Acute Care; Nurse Practitioner Family; Physician Assistant; Physician Assistant Medical; Student in an Organized Health Care Education/Training Program; Admitting Provider Registered Nurse Community Health; Emergency Provider Emergency Medicine; PCP Internal Medicine Geriatric Medicine; Visit Provider Hospitalist
DX: N17.0 Acute kidney failure with tubular necrosis (principal); A04.72 Enterocolitis due to Clostridium difficile, not specified as recurrent; E87.1 Hypo-osmolality and hyponatremia; M62.82 Rhabdomyolysis; Z68.42 Body mass index [BMI] 45.0-49.9, adult; Z59.02 Unsheltered homelessness; E87.21 Acute metabolic acidosis; I12.0 Hypertensive chronic kidney disease with stage 5 chronic kidney disease or end stage renal disease; I82.411 Acute embolism and thrombosis of right femoral vein; N18.6 End stage renal disease; N14.4 Toxic nephropathy, not elsewhere classified; E87.5 Hyperkalemia; Z75.1 Person awaiting admission to adequate facility elsewhere; E11.22 Type 2 diabetes mellitus with diabetic chronic kidney disease; E11.9 Type 2 diabetes mellitus without complications; E66.01 Morbid (severe) obesity due to excess calories; R53.81 Other malaise; R00.0 Tachycardia, unspecified; D63.1 Anemia in chronic kidney disease; J45.909 Unspecified asthma, uncomplicated; M54.9 Dorsalgia, unspecified; G89.29 Other chronic pain; L89.322 Pressure ulcer of left buttock, stage 2; I95.3 Hypotension of hemodialysis; R07.89 Other chest pain; Z99.2 Dependence on renal dialysis; L23.1 Allergic contact dermatitis due to adhesives; I95.1 Orthostatic hypotension; F32.A Depression, unspecified; R13.10 Dysphagia, unspecified
CPT/HCPCS: 36415; 36556; 36558; 36581; 36589; 70450; 71045; 72100; 72125; 73030; 73070; 78580; 80048; 80053; 80076; 80307; 81001; 81003; 82272; 82550; 82607; 82728; 82746; 82803; 82947; 83540; 83605; 83690; 83735; 83880; 83970; 84100; 84443; 84484; 85025; 85027; 85610; 86704; 86706; 87040; 87086; 87324; 87340; 87493; 87507; 90999; 92526; 92610; 93005; 93306; 93970; 93971; 94640; 97110; 97112; 97116; 97162; 97163; 97166; 97167; 97530; 97535; 99285; A9540; C1725; C1750; C1758; C1769; J0613; J0885; J1644; J2404; J2405; J2543; J3371; P9047

== ENCOUNTER → 2023-07-11 12:40 | Outpatient (BNV) | payer MEDICARE, SELFPAY | PROVIDERS: Emergency Provider Emergency Medicine; Visit Provider Internal Medicine | DX: R79.89 Other specified abnormal findings of blood chemistry (principal); M62.82 Rhabdomyolysis; R55 Syncope and collapse | CPT/HCPCS: 93010; 99223; 99233 ==

== ENCOUNTER 2023-07-12 00:57 | Outpatient (BNV) | payer MEDICARE, MEDICAID, SELFPAY | END 2023-10-04 13:00 | PROVIDERS: Admitting Provider Registered Nurse Community Health; Emergency Provider Emergency Medicine; PCP Internal Medicine Geriatric Medicine; Visit Provider Radiology Vascular & Interventional Radiology | DX: T82.41XA Breakdown (mechanical) of vascular dialysis catheter, initial encounter (principal) | CPT/HCPCS: 36581; 37248; 37249; 37799; 99152 ==

== ENCOUNTER 2023-07-12 00:57 | Outpatient (BNV) | payer MEDICARE, MEDICAID, SELFPAY | END 2023-10-14 14:50 | PROVIDERS: Admitting Provider Registered Nurse Community Health; Emergency Provider Emergency Medicine; PCP Internal Medicine Geriatric Medicine; Visit Provider Radiology Vascular & Interventional Radiology | DX: N17.9 Acute kidney failure, unspecified (principal) | CPT/HCPCS: 36589 ==

== ENCOUNTER 2023-07-12 00:57 | Outpatient (BNV) | payer MEDICARE, SELFPAY | END 2023-07-19 09:43 | PROVIDERS: Admitting Provider Registered Nurse Community Health; Emergency Provider Emergency Medicine; PCP Internal Medicine Geriatric Medicine; Visit Provider Internal Medicine | DX: R07.9 Chest pain, unspecified (principal) | CPT/HCPCS: 93010 ==

== ENCOUNTER 2023-07-12 00:57 | Outpatient (BNV) | payer MEDICARE, MEDICAID, SELFPAY | END 2023-07-13 14:00 | PROVIDERS: Admitting Provider Registered Nurse Community Health; Emergency Provider Emergency Medicine; PCP Internal Medicine Geriatric Medicine; Visit Provider Physician Assistant Surgical | DX: N18.6 End stage renal disease (principal) | CPT/HCPCS: 36558; 76937; 77001 ==

== ENCOUNTER 2023-07-12 00:57 | Outpatient (BNV) | payer MEDICARE, SELFPAY | END 2023-07-20 20:49 | PROVIDERS: Admitting Provider Registered Nurse Community Health; Emergency Provider Emergency Medicine; PCP Internal Medicine Geriatric Medicine; Visit Provider Internal Medicine | DX: R07.9 Chest pain, unspecified (principal) | CPT/HCPCS: 93010 ==

== ENCOUNTER 2023-07-12 00:57 | Outpatient (BNV) | payer MEDICARE, SELFPAY | END 2023-07-16 11:13 | PROVIDERS: Admitting Provider Registered Nurse Community Health; Emergency Provider Emergency Medicine; PCP Internal Medicine Geriatric Medicine; Visit Provider Physician Assistant Surgical | DX: N18.6 End stage renal disease (principal) | CPT/HCPCS: 36558; 76937; 77001; 99152 ==

== ENCOUNTER 2023-07-12 00:57 | Outpatient (BNV) | payer MEDICARE, MEDICAID, SELFPAY | END 2023-09-29 09:53 | PROVIDERS: Admitting Provider Registered Nurse Community Health; Emergency Provider Emergency Medicine; PCP Internal Medicine Geriatric Medicine; Visit Provider Radiology Diagnostic Radiology | DX: T82.41XA Breakdown (mechanical) of vascular dialysis catheter, initial encounter (principal) | CPT/HCPCS: 36581; 77001 ==

== ENCOUNTER → 2023-07-12 00:57 | Outpatient (BNV) | payer MEDICARE, SELFPAY | PROVIDERS: Admitting Provider Registered Nurse Community Health; Emergency Provider Emergency Medicine; Visit Provider Student in an Organized Health Care Education/Training Program | DX: I82.411 Acute embolism and thrombosis of right femoral vein (principal) | CPT/HCPCS: 99231; 99232; 99233; 99239; 99499; G0180 ==

== ENCOUNTER → 2023-07-12 00:57 | Outpatient (BNV) | payer MEDICARE, MEDICAID, SELFPAY | PROVIDERS: Admitting Provider Registered Nurse Community Health; Emergency Provider Emergency Medicine; PCP Internal Medicine Geriatric Medicine; Visit Provider Clinical Nurse Specialist Psychiatric/Mental Health | DX: F33.1 Major depressive disorder, recurrent, moderate (principal); N17.9 Acute kidney failure, unspecified; Z99.2 Dependence on renal dialysis | CPT/HCPCS: 99223 ==

== ENCOUNTER → 2023-07-12 00:57 | Outpatient (BNV) | payer MEDICARE, SELFPAY | PROVIDERS: Admitting Provider Registered Nurse Community Health; Emergency Provider Emergency Medicine; Visit Provider Physician Assistant Medical | DX: N17.9 Acute kidney failure, unspecified (principal); R74.01 Elevation of levels of liver transaminase levels; M62.82 Rhabdomyolysis; E87.5 Hyperkalemia; E11.9 Type 2 diabetes mellitus without complications; W19.XXXA Unspecified fall, initial encounter | CPT/HCPCS: 99231; 99291 ==

== ENCOUNTER → 2023-07-12 00:57 | Outpatient (BNV) | payer MEDICARE, SELFPAY | PROVIDERS: Admitting Provider Registered Nurse Community Health; Emergency Provider Emergency Medicine; PCP Internal Medicine Geriatric Medicine; Visit Provider Physician Assistant | DX: M79.601 Pain in right arm (principal); M62.82 Rhabdomyolysis; W19.XXXA Unspecified fall, initial encounter; R79.89 Other specified abnormal findings of blood chemistry | CPT/HCPCS: 99221; 99499 ==

== ENCOUNTER → 2023-07-12 00:57 | Outpatient (BNV) | payer MEDICARE, SELFPAY | PROVIDERS: Admitting Provider Registered Nurse Community Health; Emergency Provider Emergency Medicine; Visit Provider Internal Medicine Hypertension Specialist | DX: N17.9 Acute kidney failure, unspecified (principal); I10 Essential (primary) hypertension | CPT/HCPCS: 90935; 99223; 99231; 99232 ==

== ENCOUNTER 2023-12-10 14:22 | Outpatient (REF) | payer MEDICARE, MEDICAID, SELFPAY ==
[2023-12-10 14:32] LABS: MANUAL DIFF FLAG NO
[2023-12-10 14:34] LABS: Basophils Percent Auto 0.4 % (0-2); Eosinophils Absolute Auto 0.3 X10*3/uL (0.0-0.4); Hematocrit 33.9 % (42.0-52.0); Hemoglobin 11.3 g/dl (14.0-18.0); Imm Gran Abs Auto 0.03 X10*3/uL (0.00-0.03); Imm Gran Pct Auto 0.4 % (0.0-0.4); Lymphocytes Absolute Auto 1.7 X10*3/uL (1.2-4.9); Lymphocytes Percent Auto 20.6 % (20-40); Mean Corpuscular HGB Conc 33.3 g/dl (31.0-36.0); Mean Corpuscular Hemoglobin 30.5 pg (27.0-33.0); Mean Corpuscular Volume 91.4 fL (80.0-98.0); Mean Platelet Volume 8.6 fL (9.4-12.4); Monocytes Absolute Auto 0.5 X10*3/uL (0.1-1.2); Monocytes Percent Auto 5.7 % (2-11); Neutrophils Absolute Auto 5.9 x10*3/uL (2.0-8.3); Neutrophils Percent Auto 69.9 % (45-73); Platelet Count 402 X10*3/uL (160-400); Red Blood Count 3.71 X10*6/uL (4.60-5.80); Red Cell Distribution Width 11.9 % (11.0-16.0); White Blood Count 8.4 X10*3/uL (4.8-10.8)
[2023-12-10 15:04] LABS: Anion Gap 15 (12-20); Blood Urea Nitrogen 24 mg/dL (9-16); Calcium 9.6 mg/dL (8.4-10.2); Carbon Dioxide 17 mmol/L (22-29); Chloride 113 mmol/L (96-108); Estimated Glomerular Filt Rate 39; Glucose Random 87 mg/dL (60-115); Potassium 3.6 mmol/L (3.3-5.1); Sodium 141 mmol/L (135-145)
== END 2023-12-10 14:23 | disposition home or self-care (01) ==
LOC: HO.HVNA 14:22
PROVIDERS: Visit Provider Internal Medicine Geriatric Medicine
DX: D64.9 Anemia, unspecified (principal)
CPT/HCPCS: 36415; 80048; 85025

== ENCOUNTER 2023-12-16 12:03 | Outpatient (REF) | payer MEDICARE, MEDICAID, SELFPAY ==
[2023-12-16 12:06] LABS: MANUAL DIFF FLAG NO
[2023-12-16 12:12] LABS: Basophils Percent Auto 0.2 % (0-2); Eosinophils Absolute Auto 0.3 X10*3/uL (0.0-0.4); Eosinophils Percent Auto 3.1 % (0-4); Hemoglobin 11.4 g/dl (14.0-18.0); Imm Gran Abs Auto 0.04 X10*3/uL (0.00-0.03); Imm Gran Pct Auto 0.5 % (0.0-0.4); Lymphocytes Absolute Auto 1.5 X10*3/uL (1.2-4.9); Lymphocytes Percent Auto 17.8 % (20-40); Mean Corpuscular HGB Conc 32.6 g/dl (31.0-36.0); Mean Corpuscular Hemoglobin 30.1 pg (27.0-33.0); Mean Corpuscular Volume 92.3 fL (80.0-98.0); Mean Platelet Volume 8.5 fL (9.4-12.4); Monocytes Absolute Auto 0.3 X10*3/uL (0.1-1.2); Monocytes Percent Auto 3.7 % (2-11); Neutrophils Absolute Auto 6.2 x10*3/uL (2.0-8.3); Neutrophils Percent Auto 74.7 % (45-73); Platelet Count 402 X10*3/uL (160-400); Red Blood Count 3.79 X10*6/uL (4.60-5.80); Red Cell Distribution Width 12.2 % (11.0-16.0); White Blood Count 8.4 X10*3/uL (4.8-10.8)
[2023-12-16 12:41] LABS: Anion Gap 13 (12-20); Blood Urea Nitrogen 16 mg/dL (9-16); Calcium 9.9 mg/dL (8.4-10.2); Carbon Dioxide 20 mmol/L (22-29); Chloride 111 mmol/L (96-108); Estimated Glomerular Filt Rate 45; Glucose Random 165 mg/dL (60-115); Potassium 3.6 mmol/L (3.3-5.1); Sodium 140 mmol/L (135-145)
== END 2023-12-16 12:04 | disposition home or self-care (01) ==
LOC: HO.HVNA 12:03
PROVIDERS: Visit Provider Internal Medicine Geriatric Medicine
DX: N17.9 Acute kidney failure, unspecified (principal)
CPT/HCPCS: 80048; 85025

== ENCOUNTER 2023-12-22 16:27 | Outpatient (REF) | payer MEDICARE, MEDICAID, SELFPAY ==
[2023-12-22 16:30] LABS: MANUAL DIFF FLAG NO
[2023-12-22 17:08] LABS: Basophils Percent Auto 0.4 % (0-2); Eosinophils Absolute Auto 0.3 X10*3/uL (0.0-0.4); Eosinophils Percent Auto 3.2 % (0-4); Hematocrit 34.3 % (42.0-52.0); Hemoglobin 10.9 g/dl (14.0-18.0); Imm Gran Abs Auto 0.02 X10*3/uL (0.00-0.03); Imm Gran Pct Auto 0.2 % (0.0-0.4); Lymphocytes Absolute Auto 1.8 X10*3/uL (1.2-4.9); Lymphocytes Percent Auto 18.3 % (20-40); Mean Corpuscular HGB Conc 31.8 g/dl (31.0-36.0); Mean Corpuscular Hemoglobin 29.5 pg (27.0-33.0); Mean Platelet Volume 8.6 fL (9.4-12.4); Monocytes Absolute Auto 0.5 X10*3/uL (0.1-1.2); Monocytes Percent Auto 5.5 % (2-11); Neutrophils Absolute Auto 7.1 x10*3/uL (2.0-8.3); Neutrophils Percent Auto 72.4 % (45-73); Platelet Count 446 X10*3/uL (160-400); Red Blood Count 3.69 X10*6/uL (4.60-5.80); Red Cell Distribution Width 12.4 % (11.0-16.0); White Blood Count 9.8 X10*3/uL (4.8-10.8)
[2023-12-22 17:40] LABS: Anion Gap 13 (12-20); Blood Urea Nitrogen 20 mg/dL (9-16); Calcium 9.7 mg/dL (8.4-10.2); Carbon Dioxide 24 mmol/L (22-29); Chloride 108 mmol/L (96-108); Estimated Glomerular Filt Rate 36; Glucose Random 100 mg/dL (60-115); Sodium 141 mmol/L (135-145)
== END 2023-12-22 16:28 | disposition home or self-care (01) ==
LOC: HO.HVNA 16:27
PROVIDERS: Visit Provider Internal Medicine Geriatric Medicine
DX: I82.411 Acute embolism and thrombosis of right femoral vein (principal); N17.9 Acute kidney failure, unspecified
CPT/HCPCS: 36415; 80048; 85025

== ENCOUNTER 2024-01-04 12:51 | Outpatient (REF) | payer MEDICARE, MEDICAID, SELFPAY ==
[2024-01-04 13:04] LABS: Basophils Percent Auto 0.4 % (0-2); Eosinophils Absolute Auto 0.3 X10*3/uL (0.0-0.4); Eosinophils Percent Auto 3.6 % (0-4); Hematocrit 40.4 % (42.0-52.0); Hemoglobin 13.2 g/dl (14.0-18.0); Imm Gran Abs Auto 0.04 X10*3/uL (0.00-0.03); Imm Gran Pct Auto 0.4 % (0.0-0.4); Lymphocytes Absolute Auto 2.1 X10*3/uL (1.2-4.9); Lymphocytes Percent Auto 22.7 % (20-40); MANUAL DIFF FLAG SCAN; Mean Corpuscular HGB Conc 32.7 g/dl (31.0-36.0); Mean Corpuscular Hemoglobin 29.6 pg (27.0-33.0); Mean Corpuscular Volume 90.6 fL (80.0-98.0); Mean Platelet Volume 8.8 fL (9.4-12.4); Monocytes Absolute Auto 0.4 X10*3/uL (0.1-1.2); Monocytes Percent Auto 4.6 % (2-11); Neutrophils Absolute Auto 6.2 x10*3/uL (2.0-8.3); Neutrophils Percent Auto 68.3 % (45-73); PLT CLUMP 1; Red Blood Count 4.46 X10*6/uL (4.60-5.80); Red Cell Distribution Width 12.8 % (11.0-16.0); SCAN SMEAR FLAG 1
[2024-01-04 13:05] LABS: White Blood Count 9.1 X10*3/uL (4.8-10.8)
[2024-01-04 13:29] LABS: Anion Gap 13 (12-20); Blood Urea Nitrogen 22 mg/dL (9-16); Calcium 9.8 mg/dL (8.4-10.2); Carbon Dioxide 19 mmol/L (22-29); Chloride 106 mmol/L (96-108); Estimated Glomerular Filt Rate 35; Glucose Random 140 mg/dL (60-115); Potassium 4.4 mmol/L (3.3-5.1); Sodium 134 mmol/L (135-145)
[2024-01-04 13:39] LABS: Platelet Count 444 X10*3/uL (160-400); SLIDE REVIEW VERIFIED
== END 2024-01-04 12:52 | disposition home or self-care (01) ==
LOC: HO.HVNA 12:51
PROVIDERS: Visit Provider Internal Medicine Geriatric Medicine
DX: N17.9 Acute kidney failure, unspecified (principal)
CPT/HCPCS: 36415; 80048; 85025

== ENCOUNTER 2024-01-24 14:33 | Outpatient (AMB) | payer OTHER, SELFPAY ==
[2024-01-24 14:32] VITALS: BP 104/82; PULSE 111; O2SAT 96; BMI 40.9
--- NOTE | 2024-01-24 14:32 | HO.NEPHOV_ITS ---
Vital Signs 01/24/24 14:32 Height 5 ft 8 in Weight 269 lb BMI 40.9 BP 104/82 Blood Pressure Location Rt brachial Position Sitting Pulse 111 H Pulse Source Pulse Oximeter Pulse Oximetry (%) 96 Oxygen Delivery Method Room Air Intake Visit Reasons: ENP: CHITO/ Conf Police Liaison Officer Required: No Accompanied by: Self / Same As Patient Allergies aspirin [ASPIRIN] Allergy (Unknown, Verified 01/24/24 14:36) SWELLING, NAUSEA, VOMITING Medication List - Last Reconciled 01/24/24 by Rosa Eckert, DNP, [employer] acetaminophen ER (Arthritis Pain Relief (acetaminophen) ER) 650 mg PO Q6H PRN albuterol sulfate 90 mcg/actuation 2 puffs inhalation QID PRN apixaban (Eliquis) 5 mg PO BID aripiprazole (Abilify) 2.5 mg (1/2 x 5 mg) PO DAILY sertraline 12.5 mg (1/2 x 25 mg) PO BEDTIME trazodone 25 mg (1/2 x 50 mg) PO BEDTIME HPI Comments Details: Jason is a 53 y/o with a medical history of DMII, asthma, HTN, chronic back pain, mood disorder, righ tleg DVT and CHITO. He presents today for hospital follow up. Had prolonged hospitalization (primarily due to placement delays), from 08/08/23- 12/06/23. 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 creatinine between 1.62 and 2.58 since October. Most recent creatinine 2.01 January 04, 2024. GFR 34-45 since October. Reports he was homeless on admission, was discharged from hospital in November to a housing program on [address] [place] [address], reports he is in a program for homeless while waiting housing placement. reports 6 cigarettes most days, states drinks whisky- reports half a pint and two cups of wine. denies use of nsaids, only tylenol PRN reports his fasting sugars are in 170s-190s, reports he does have ice cream, and drinks orange juice frequently. Also white rice is frequent. Reports sees PCP for diabetes management but does not have a follow up appointment. reports he is working on minimizing salt reports he hydrates throughout the day breathing is comfortable at rest, no chest pain or dizziness. has a personal health coach and working on exercise from PT 4x weekly. still deconditioned and dyspnea with exertion/exercise but has made some mild improvement with PT. no dysuria, no flank pain, no abdominal pain reports some ongoing tingling in his lower extremities. [facility] Medical History Tobacco dependence syndrome Rectal hemorrhage Prostatism Palpitations Nausea Leg edema, left Hyperglycemia Homeless History of COVID-19 Heartburn Essential hypertension Depressive disorder Chronic pain of left knee Chronic lower back pain Chest pain Asthma Amnesia Surgical History Umbilical hernia (04/01/23) History of surgery on lower extremity History of surgery on arm Family History Mother Heart disease Diabetes Dementia Brainstem hemorrhage Father No problems noted. Social History Alcohol intake: former Comment: counts correct Patient Tobacco Use Status: Former Tobacco user service: No Review of Systems Const Reports as per HPI and Reports no additional complaints Card Denies chest pain, Denies pedal edema, Denies lightheadedness, Reports dyspnea on exertion and Denies orthopnea Resp Denies cough and Reports dyspnea on exertion GI Denies abdominal pain, Denies constipation, Denies diarrhea, Denies nausea and Denies vomiting Denies hematuria, Denies difficulty urinating, Denies dysuria, Denies flank pain and Denies urinary frequency Musc Reports back pain (reports chronic upper back pain), Denies joint swelling, Denies muscle weakness and Reports tingling (reports chronic tingling in lower extremities. ) Skin/Breast Denies rash Neuro Reports tingling (reports chronic tingling in lower extremities. ) Physical Exam Const General: no acute distress and alert Neck Neck: Yes no JVD Thyroid: Thyroid normal Resp Effort & Inspection: normal respiratory effort and able to speak in complete sentences Auscultation: clear to auscultation bilaterally Cardio Jugular venous distension: no JVD Rate: regular rate Rhythm: regular rhythm Heart sounds: S1 normal heart sound present and S2 normal heart sound present GI Palpation (GI): Soft to palpation and nontender General: Yes no CVA tenderness Back/Spine/Pelvis Back: no CVA tenderness Skin Lesions: no lesions Rashes: no rashes Extrem General: No edema Results Reviewed Nephrology Results: Hgb 13.2 g/dl (14.0-18.0) L 01/04/24 WBC 9.1 X10*3/uL (4.8-10.8) 01/04/24 Plt Count 444 X10*3/uL (160-400) H 01/04/24 Sodium 134 mmol/L (135-145) L 01/04/24 Potassium 4.4 mmol/L (3.3-5.1) 01/04/24 Chloride 106 mmol/L (96-108) 01/04/24 Carbon Dioxide 19 mmol/L (22-29) L 01/04/24 BUN 22 mg/dL (9-16) H 01/04/24 Creatinine 2.01 mg/dL (0.5-1.4) H 01/04/24 Calcium 9.8 mg/dL (8.4-10.2) 01/04/24 Assessment & Plan Assessment & Plan (1) CHITO (acute kidney injury): Code(s): N17.9 - Acute kidney failure, unspecified Category: Medical (2) CKD (chronic kidney disease): Code(s): N18.9 - Chronic kidney disease, unspecified Category: Medical Qualifiers: Chronic kidney disease stage 3 subtype: stage 3b (GFR 30-44) Chronic kidney disease stage: stage 3 (moderate) Qualified Code(s): N18.32 - Chronic kidney disease, stage 3b Plan CHITO secondary to ATN from pigment nephropathy, has regained some residual renal function but remains impaired in CKD3b range, though potenital to continue to have some slow recovery. will check updated creatinine level as well as PTH, phosphorous and H&H advised patient that he should discontinue cigarettes, alcohol and continue to avoid NSAIDs, as all of these habits may contribute to worsening renal function over time as well as other co-mobrid conditions advised very important to get diabetes under control, as this can also worsen renal function and general health over time. Lengthy discussion regarding healthy dietary habits- discussed specific goals of omitting orange juice and other sugary drinks, as well as minimizing processed carbohydrates and increasing proportion of vegetables. Adivsed minimize salt and hydrate well Advised should make an appointment with PCP to discuss diabetic control, as well as lower extremity tingling and ensure regular appointments as indicated. Patient to get lab work done today, he will return in two months. Orders: Orders Complete Blood Count no Diff Today N17.9 - Acute kidney failure, unspecified, N18.9 - Chronic kidney disease, unspecified Basic Metabolic Panel Today N18.30 - Chronic kidney disease, stage 3 unspecified Phosphorus Today N17.9 - Acute kidney failure, unspecified, N18.9 - Chronic kidney disease, unspecified PTH Intact Intraoperative Today N18.9 - Chronic kidney disease, unspecified Basic Metabolic Panel 2 Months N18.9 - Chronic kidney disease, unspecified Coding Level of Care Code New Pt Level 4 (88924) Diagnoses CHITO (acute kidney injury) N17.9 Stage 3b chronic kidney disease N18.32 Chronic kidney disease stage 3 subtype: stage 3b (GFR 30-44) Chronic kidney disease stage: stage 3 (moderate) Time Spent (min) 45 Comment Time spent assessing, counseling, documentation, chart review: 45 minutes.
== END 2024-01-24 15:09 | disposition home or self-care (01) ==
PROVIDERS: PCP Internal Medicine Geriatric Medicine; Visit Provider Internal Medicine Hypertension Specialist
DX: N17.9 Acute kidney failure, unspecified (principal); N18.32 Chronic kidney disease, stage 3b
CPT/HCPCS: 99214

== ENCOUNTER → 2024-01-24 14:33 | Outpatient (BNVA) | payer OTHER, SELFPAY | PROVIDERS: PCP Internal Medicine Geriatric Medicine; Visit Provider Internal Medicine Hypertension Specialist | DX: I12.9 Hypertensive chronic kidney disease with stage 1 through stage 4 chronic kidney disease, or unspecified chronic kidney disease (principal); E11.22 Type 2 diabetes mellitus with diabetic chronic kidney disease; N17.9 Acute kidney failure, unspecified; N18.32 Chronic kidney disease, stage 3b | CPT/HCPCS: 99212 ==

== ENCOUNTER 2024-01-24 15:18 | Outpatient (REF) | payer OTHER, SELFPAY ==
[2024-01-24 16:01] LABS: Hematocrit 37.7 % (42.0-52.0); Mean Corpuscular HGB Conc 31.8 g/dl (31.0-36.0); Mean Corpuscular Hemoglobin 28.6 pg (27.0-33.0); Mean Platelet Volume 8.2 fL (9.4-12.4); Platelet Count 381 X10*3/uL (160-400); Red Blood Count 4.19 X10*6/uL (4.60-5.80); Red Cell Distribution Width 13.2 % (11.0-16.0); White Blood Count 9.3 X10*3/uL (4.8-10.8)
[2024-01-24 17:04] LABS: Anion Gap 11 (12-20); Blood Urea Nitrogen 23 mg/dL (9-16); Calcium 9.1 mg/dL (8.4-10.2); Carbon Dioxide 24 mmol/L (22-29); Chloride 107 mmol/L (96-108); Estimated Glomerular Filt Rate 38; Glucose Random 76 mg/dL (60-115); Phosphorus 2.7 mg/dL (2.7-4.5); Potassium 4.2 mmol/L (3.3-5.1); Sodium 138 mmol/L (135-145)
[2024-01-24 17:15] LABS: Parathyroid Hormone Intact 133.6 pg/mL (8.7-77.1)
== END 2024-01-24 15:19 | disposition home or self-care (01) ==
LOC: HO.LAB 15:18
PROVIDERS: PCP Internal Medicine Geriatric Medicine; Visit Provider Nurse Practitioner Family
DX: N18.9 Chronic kidney disease, unspecified (principal); N17.9 Acute kidney failure, unspecified; N18.32 Chronic kidney disease, stage 3b
CPT/HCPCS: 36415; 80048; 83970; 84100; 85027

== ENCOUNTER 2024-03-30 10:50 | Outpatient (AMB) | payer OTHER, SELFPAY ==
[2024-03-30 10:53] VITALS: BP 118/86; PULSE 115; O2SAT 95; BMI 43.8
--- NOTE | 2024-03-30 10:53 | HO.NEPHOV_ITS ---
Vital Signs 03/30/24 10:53 Height 5 ft 8 in Weight 288 lb BMI 43.8 BP 118/86 Blood Pressure Location Lt brachial Position Sitting Pulse 115 H Pulse Source Pulse Oximeter Pulse Oximetry (%) 95 Oxygen Delivery Method Room Air Intake Visit Reasons: CHITO/ Conf Home Care Giver Required: No Accompanied by: Self / Same As Patient Allergies aspirin [ASPIRIN] Allergy (Unknown, Verified 03/30/24 10:55) SWELLING, NAUSEA, VOMITING Medication List - Last Reconciled 03/30/24 by Papi Youngblood MD acetaminophen ER (Arthritis Pain Relief (acetaminophen) ER) 650 mg PO Q6H PRN albuterol sulfate 90 mcg/actuation 2 puffs inhalation QID PRN apixaban (Eliquis) 5 mg PO BID aripiprazole (Abilify) 2.5 mg (1/2 x 5 mg) PO DAILY sertraline 12.5 mg (1/2 x 25 mg) PO BEDTIME trazodone 25 mg (1/2 x 50 mg) PO BEDTIME HPI Comments Details: Jason is a 53 y/o with a medical history of DMII, asthma, HTN, chronic back pain, mood disorder, righ tleg DVT and CHITO. He presents today for hospital follow up. Had prolonged hospitalization (primarily due to placement delays), from 08/08/23- 12/06/23. 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 creatinine between 1.62 and 2.58 since October. Most recent creatinine 2.01 January 04, 2024. GFR 34-45 since October. Reports he was homeless on admission, was discharged from hospital in November to a housing program on [address] [place] [address] in [place], reports he is in a program for homeless while waiting housing placement. reports 6 cigarettes most days, states drinks whisky- reports half a pint and two cups of wine. denies use of nsaids, only tylenol PRN reports his fasting sugars are in 170s-190s, reports he does have ice cream, and drinks orange juice frequently. Also white rice is frequent. Reports sees PCP for diabetes management but does not have a follow up appointment. reports he is working on minimizing salt reports he hydrates throughout the day breathing is comfortable at rest, no chest pain or dizziness. has a program trainer and working on exercise from PT 4x weekly. still deconditioned and dyspnea with exertion/exercise but has made some mild improvement with PT. no dysuria, no flank pain, no abdominal pain reports some ongoing tingling in his lower extremities. [facility] Medical History Tobacco dependence syndrome Rectal hemorrhage Prostatism Palpitations Nausea Leg edema, left Hyperglycemia Homeless History of COVID-19 Heartburn Essential hypertension Depressive disorder Chronic pain of left knee Chronic lower back pain Chest pain Asthma Amnesia Surgical History Umbilical hernia (04/01/23) History of surgery on lower extremity History of surgery on arm Family History Mother Heart disease Diabetes Dementia Brainstem hemorrhage Father No problems noted. Social History Alcohol intake: former Comment: counts correct Patient Tobacco Use Status: Former Tobacco user service: No Physical Exam Vital Signs: Last Vital Signs Pulse 115 H 03/30/24 10:53 BP 118/86 03/30/24 10:53 Pulse Ox 95 03/30/24 10:53 Oxygen Delivery Method Room Air 03/30/24 10:53 BMI result Body Mass Index 43.8 Const General: no acute distress and alert Neck Neck: Yes no JVD Thyroid: Thyroid normal Resp Effort & Inspection: normal respiratory effort and able to speak in complete sentences Auscultation: clear to auscultation bilaterally Cardio Jugular venous distension: no JVD Rate: regular rate Rhythm: regular rhythm Heart sounds: S1 normal heart sound present and S2 normal heart sound present GI Palpation (GI): Soft to palpation and nontender General: Yes no CVA tenderness Back/Spine/Pelvis Back: no CVA tenderness Skin Lesions: no lesions Rashes: no rashes Extrem General: No edema Results Reviewed Nephrology Results: Hgb 12.0 g/dl (14.0-18.0) L 01/24/24 WBC 9.3 X10*3/uL (4.8-10.8) 01/24/24 Plt Count 381 X10*3/uL (160-400) 01/24/24 Sodium 138 mmol/L (135-145) 01/24/24 Potassium 4.2 mmol/L (3.3-5.1) 01/24/24 Chloride 107 mmol/L (96-108) 01/24/24 Carbon Dioxide 24 mmol/L (22-29) 01/24/24 BUN 23 mg/dL (9-16) H 01/24/24 Creatinine 1.86 mg/dL (0.5-1.4) H 01/24/24 Calcium 9.1 mg/dL (8.4-10.2) 01/24/24 Phosphorus 2.7 mg/dL (2.7-4.5) 01/24/24 PTH Intact 133.6 pg/mL (8.7-77.1) H 01/24/24 Assessment & Plan Assessment & Plan (1) CHITO (acute kidney injury): Code(s): N17.9 - Acute kidney failure, unspecified Category: Medical (2) CKD (chronic kidney disease): Code(s): N18.9 - Chronic kidney disease, unspecified Category: Medical Qualifiers: Chronic kidney disease stage: stage 3 (moderate) Chronic kidney disease stage 3 subtype: stage 3b (GFR 30-44) Qualified Code(s): N18.32 - Chronic kidney disease, stage 3b Plan CHITO secondary to ATN from pigment nephropathy, has regained some residual renal function but remains impaired in CKD3b range, though potential to continue to have some slow recovery. Has underlying CKD Discussed stopping cigarettes, alcohol and continue to avoid NSAIDs, Maintain A1C < 7% Low salt diet Check CBC/Renal panel today along with urine studies Orders: Orders Complete Blood Count no Diff Today N18.32 - Chronic kidney disease, stage 3b UA and rflx microscopic Today N18.32 - Chronic kidney disease, stage 3b Creatinine Urine Today N18.32 - Chronic kidney disease, stage 3b Basic Metabolic Panel Today N18.32 - Chronic kidney disease, stage 3b Total Protein Urine Random Today N18.32 - Chronic kidney disease, stage 3b Parathyroid Hormone Intact Today N18.32 - Chronic kidney disease, stage 3b Coding Level of Care Code Est Pt Level 4 (20972) Diagnoses CHITO (acute kidney injury) N17.9 Stage 3b chronic kidney disease N18.32 Chronic kidney disease stage: stage 3 (moderate) Chronic kidney disease stage 3 subtype: stage 3b (GFR 30-44)
--- OUTSIDE RECORDS SUMMARY | 2024-03-30 11:58 | XMS_ITS | Patient Health Record ---
Author Organization [facility] Address [address] [place], [place] [id number] Care Team Providers Care Silver Cleaner Name Role Phone No, PCP Primary Care Provider Yannick Pérez Unavailable [phone] Reason For Referral No Information Plan Of Treatment No Information Insurance Providers Payer Name Payer Address Payer Phone Subscriber Number Group Number Insured Name Patient Relationship to Insured Coverage Start Date Coverage End Date Insurance - Refuse Patient refuse to apply for insurance [address] [place] [id number] Jason Martinez Self - patient is the insured 2 2
--- OUTSIDE RECORDS SUMMARY | 2024-03-30 11:58 | XMS_ITS | Encounter Summary ---
Author Organization [employer] Address [address] [place] [address] 7[address] [place] [address] Care Team Providers Care Splitter Operator Name Role Phone Name, Haresh ELLIOTT Primary Care Provider [phone] Bruce Dumas Unavailable Unavailable Reason for Visit * Reason Comments Med Refill Encounter Details Date Type Department Care Team (Late st Contact Info) Description 02/15/2023 Refill [facility] [address] [place] [address] Tracie Henry DO [address] [place] [address] Social History Tobacco Use Types Packs/Day Years Used Date Smoking Tobacco: Former Cigarettes Passive Smoke Exposure: Never Alcohol Use Standard Drinks/Week Comments Never 0 (1 standard drink = 0.6 oz pur e alcohol) Depression Answer Date Recorded Patient Health Questionnaire-9 Score 16 01/21/2023 Patient Health Questionnaire-9 Score 16 01/21/2023 Last PHQ-9: Questionnaire Data Not on file 1 03/24/2022 Housing Stability Answer Date Recorded What is your housing situation today? I do not have housing (Staying with others, in a hotel, in a halfway, living outside on the street, on a beach, in a car, or in a park 11/16/[address] you li ve. Do you have problems with any of the following? None of the above 11/16/2022 Food Insecurity Answer Date Recorded Within the past 12 months, y ou worried that your food would run out before you got money to buy more: Often true 11/23/2022 Within the past 12 months,th e food you bought just didn't last and you didn't have enough money to get more: Often true Transportation Answer Date Recorded In the past 12 months, has l ack of transportation kept you from medical appts, meetings, work or from getting things needed for daily living? No 11/23/2022 Utilities Answer Date Recorded In the past 12 months, has t he electric, gas, oil or water company threatened to shut off services in your home? No 11/23/2022 Depression Answer Date Recorded Patient Health Questionnaire-2 Score 6 01/21/2023 Sex and Gender Information Value Date Recorded Sex Assigned at Male 12/08/2021 10:15 AM EDT Legal Sex Male 10:15 AM EDT Gender Identity Male 12/08/2021 10:15 AM EDT Sexual Orientation Straight 12/08/2021 10 :15 AM EDT documented as of this encounter Plan of Treatment Upcoming Encounters Date Type Department Care Team (Late st Contact Info) Description 04/06/2024 9:00 AM EST Office Visit [facility] [address] [place] [address] Name, MD Haresh [address] [place] [address] 04/10/2024 3:00 PM EST Office Visit [facility] ADULT DENTAL [address] [place] [address] Dorothy Mckeon documented as of this encounter Visit Diagnoses Not on filedocumented in this encounter Additional Health Concerns Assessment Noted Time PHQ-9 Depression Total Score: 16 023 9:35 AM EST documented as of this encounter Care Teams Splitter Operator Relationship Specialty Start Date End Date NameHaresh MD [address] [place] [address] PCP - General Family Medicine 09/08/18 Bruce Dumas FNP [address] [place] [address] Nurse Practitioner Family Medicine 01/11/23 [facility] 12/07/23 documented as of this encounter
--- OUTSIDE RECORDS SUMMARY | 2024-03-30 11:58 | XMS_ITS | Encounter Summary ---
Author Organization [employer] Address [address] [place] [address] 7[place] [address] Care Team Providers Care Survey Compiler Name Role Phone Name, Haresh ELLIOTT Primary Care Provider Bruce Dumas Unavailable Unavailable Reason for Visit * Reason Onset Date Comments Appointment Request 03/15/2024 Encounter Details Date Type Department Care Team ([facility] st Contact Info) Description 03/15/2024 Telephone [facility] [address] [place] [address] Name, MD Haresh [address] [place] [address] Appointment Request Social History Tobacco Use Types Packs/Day Years Used Date Smoking Tobacco: Former Cigarettes Passive Smoke Exposure: Past Alcohol Use Standard Drinks/Week Comments Never 0 (1 standard drink = 0.6 oz pur e alcohol) Depression Answer Date Recorded Patient Health Questionnaire-9 Score 16 01/21/2023 Patient Health Questionnaire-9 Score 16 01/21/2023 Last PHQ-9: Questionnaire Data Not on file 1 03/24/2022 Housing Stability Answer Date Recorded What is your housing situation today? I have filippo khan 12/09/[address] you li ve. Do you have problems with any of the following? None of the above 12/09/2023 Food Insecurity Answer Date Recorded Within the past 12 months, y ou worried that your food would run out before you got money to buy more: Sometimes True 2023 Within the past 12 months,th e food you bought just didn't last and you didn't have enough money to get more: Sometimes True 12/09/2023 Transportation Answer Date Recorded In the past 12 months, has l ack of transportation kept you from medical appts, meetings, work or from getting things needed for daily living? Yes, it has kept me from medical appointments or getting medications. 12/09/2023 Utilities Answer Date Recorded In the past 12 months, has t he electric, gas, oil or water company threatened to shut off services in your home? No 12/09/2023 Depression Answer Date Recorded Patient Health Questionnaire-2 Score 6 01/21/2023 Internet Access Answer Date Recorded Internet Access Q1 Yes 12/09/2023 Internet Access Q2 Not on file 12/09/2023 Sex and Gender Information Value Date Recorded Sex Assigned at Male 12/08/2021 10:15 AM EDT Legal Sex Male 10:15 AM EDT Gender Identity Male 12/08/2021 10:15 AM EDT Sexual Orientation Straight 12/08/2021 10 :15 AM EDT documented as of this encounter Miscellaneous Notes * Telephone Encounter - Bimal Adames - 03/15/2024 11:30 AM EST Tc from pt requesting to R/s appt for 03/14/24 or be put on a recall list. Contact pt at [phone] documented in this encounter Plan of Treatment Upcoming Encounters Date Type Department Care Team (Late st Contact Info) Description 04/06/2024 9:00 AM EST Office Visit [facility] [address] [place] [address] Name, MD Haresh [address] [place] [phone] 04/10/2024 3:00 PM EST Office Visit [facility] ADULT DENTAL [address] [place] [address] Dorothy Mckeon documented as of this encounter Visit Diagnoses Not on filedocumented in this encounter Additional Health Concerns Assessment Noted Time PHQ-9 Depression Total Score: 16 023 9:35 AM EST documented as of this encounter Care Teams Survey Compiler Relationship Specialty Start Date End Date NameHaresh MD [address] [place] [address] PCP - General Family Medicine 09/08/18 Bruce Dumas FNP [address] [facility] [place] [address] Nurse Practitioner Family Medicine 01/11/23 [facility] 12/07/23 documented as of this encounter
--- OUTSIDE RECORDS SUMMARY | 2024-03-30 11:58 | XMS_ITS | Encounter Summary ---
Author Organization [employer] Address [address] [place] [address] 7t [place] [address] Care Team Providers Care Stripper Latex Name Role Phone Name, Haresh ELLIOTT Primary Care Provider [phone] Bruce Dumas Unavailable Unavailable Reason for Visit * Reason Comments Med Refill Encounter Details Date Type Department Care Team (Late st Contact Info) Description 02/18/2023 Refill [facility] [address] [place] [address] Montse Duffy MD [address] [place] [address] Uncomplicated opioid dependence (CMS/HCC) Social History Tobacco Use Types Packs/Day Years [...] with others, in a hotel, in a penitentiary, living outside on the street, on a [...] Description 04/06/2024 9:00 AM EST Office Visit [facility] MED[facility]INE [address] [place] [address] Name, MD Haresh [address] [place] [address] 04/10/2024 3:00 PM EST Office Visit [facility] ADULT DENTAL [address] [place] [address] Dorothy Mckeon documented as of this encounter Visit Diagnoses Diagnosis Uncomplicated opioid dependence (CMS/HCC) documented in this encounter Additional Health Concerns Assessment Noted Time PHQ-9 Depression Total Score: 16 023 9:35 AM EST documented as of this encounter Care Teams Stripper Latex Relationship Specialty Start Date End Date Haresh Recinos MD [address] [place] [address] PCP - General Family Medicine 09/08/18 Bruce Dumas FNP [address] [place] [address] Nurse Practitioner Family Medicine [facility] documented as of this encounter
--- OUTSIDE RECORDS SUMMARY | 2024-03-30 11:58 | XMS_ITS | Encounter Summary ---
Author Organization [employer] Address [address] [place] [address] [address] [place] [address] Care Team Providers Care Senior Mobile Developer Name Role Phone Name, Haresh ELLIOTT Primary Care Provider [phone] Bruce Dumas Unavailable Unavailable Reason for Visit * Reason Comments Med Refill Encounter Details Date Type Department Care Team (Late st Contact Info) Description 01/22/2022 Refill [facility] MED[facility] [address] [place] [address] NameHaresh MD [address] [place] [phone] Social History Tobacco Use Types Packs/Day Years Used Date Smoking Tobacco: Never Assessed Sex and Gender Information Value Date Recorded Sex Assigned at Male 12/08/2021 10:15 AM EDT Legal Sex Male 10:15 AM EDT Gender Identity Male 12/08/2021 10:15 AM EDT Sexual Orientation Straight 12/08/2021 10 :15 AM EDT COVID-19 Exposure Response Date Recorded In the last 10 days, have yo u been in contact with someone who was confirmed or suspected to have Coronavirus/COVID-19? No / Unsure 01/22/2022 10:14 AM EST documented as of this encounter Plan of Treatment Upcoming Encounters Date Type Department Care Team (Late st Contact Info) Description 04/06/2024 9:00 AM EST Office Visit [facility]INE [address] [place] [address] Haresh Recinos MD [address] [place] [address] 04/10/2024 3:00 PM EST Office Visit [facility] ADULT DENTAL [address] [place] [address] Dorothy Mckeon documented as of this encounter Visit Diagnoses Not on filedocumented in this encounter Care Teams Senior Mobile Developer Relationship Specialty Start Date End Date Name, MD Haresh [address] [place] [address] PCP - General Family Medicine 09/08/18 Bruce Dumas FNP [address] [place] [address] Nurse Practitioner Family Medicine 01/11/23 [facility] 12/07/23 documented as of this encounter
--- OUTSIDE RECORDS SUMMARY | 2024-03-30 11:58 | XMS_ITS | Encounter Summary ---
Author Organization [employer] Address [address] [facility] 7t [place] [address] Care Team Providers Care Street Superintendent Name Role Phone Name, Haresh ELLIOTT Primary Care Provider [phone] Bruce Dumas Unavailable Unavailable Reason for Visit * Reason Onset Date Comments Med Refill 03/24/2024 Encounter Details Date Type Department Care Team ([facility] st Contact Info) Description 03/24/2024 Refill [facility] [address] [place], [place] [phone] Name, MD Haresh [address] [place] [address] Social History Tobacco Use Types Packs/Day Years [...] Description 04/06/2024 9:00 AM EST Office Visit [facility] MEDICINE [address] [place] [address] NameHaresh MD [address] [place] [address] 04/10/2024 3:00 PM EST Office Visit [facility] ADULT DENTAL [address] [place] [address] Dorothy Mckeon documented as of this encounter Visit Diagnoses Not on filedocumented in this encounter Additional Health Concerns Assessment Noted Time PHQ-9 Depression Total Score: 16 023 9:35 AM EST documented as of this encounter Care Teams Street Superintendent Relationship Specialty Start Date End Date Haresh Recinos MD [address] [place] [address] PCP - General Family Medicine 09/08/18 Bruce Dumas FNP [address] [place] [address] Nurse Practitioner Family Medicine 01/11/23 [facility] 12/07/23 documented as of this encounter
--- OUTSIDE RECORDS SUMMARY | 2024-03-30 11:58 | XMS_ITS | Encounter Summary ---
Author Organization [employer] Address [address] [place] [address] [place] [address] Care Team Providers Care Mold Shop Supervisor Name Role Phone Name, Haresh ELLIOTT Primary Care Provider [phone] Bruce Dumas Unavailable Unavailable Reason for Visit * Reason Onset Date Comments No Show 10/06/2022 Encounter Details Date Type Department Care Team ([facility] st Contact Info) Description 10/06/2022 Telephone [facility] [address] [place] [address] Name, MD Haresh [address] [place] [address] No Show Social History Tobacco Use Types Packs/Day Years Used Date Smoking Tobacco: Former Cigarettes Passive Smoke Exposure: Never Alcohol Use Standard Drinks/Week Comments Not Asked 0 (1 standard drink = 0.6 oz pur e alcohol) Depression Answer Date Recorded Patient Health Questionnaire-9 Score 17 10/06/2022 Depression Answer Date Recorded Patient Health Questionnaire-2 Score 6 10/06/2022 Sex and Gender Information Value Date Recorded Sex Assigned at Male 12/08/2021 10:15 AM EDT Legal Sex Male 10:15 AM EDT Gender Identity Male 12/08/2021 10:15 AM EDT Sexual Orientation Straight 12/08/2021 10 :15 AM EDT documented as of this encounter Miscellaneous Notes * Telephone Encounter - Sandra Rodriguez - 10/14/2022 4:21 PM EDT No show 10/14/2022 to sick onsite * Telephone Encounter - Adia Brady RN - 10/06/2022 5:05 PM EDT Triage call , Pt already triaged 10/05/22. Pt requests remain the same , requests order to check blood type and requesting a referral for cardiology. No triage needed. Advised Pt that an apt is scheduled for 10/14/22 @ 330pm with Provider Leiva on the green team. Pt agreed with this and no further questions. Protocol Used: Information Only Call - No Triage (Adult) Protocol-Based Disposition: Home Care Positive Triage Question: * Information only question and nurse able to answer * All higher-acuity triage questions were negative Care Advice Discussed: * Reasons To Call Back - New symptoms develop - You become worse * Telephone Encounter - Yessenia Hidalgo - 10/06/2022 3:57 PM EDT Symptoms: Leg Swelling - Not From Injury, Weakness, Dizziness Outcome: Schedule an urgent appointment (within 1 hour) or talk to a nurse or provider soon Reason: Getting worse The caller accepted this outcome Please contact pt at [phone] documented in this encounter Plan of Treatment Upcoming Encounters Date Type Department Care Team (Late st Contact Info) Description 04/06/2024 9:00 AM EST Office Visit [facility] [address] [place] [address] Name, MD Haresh [address] [place] [address] 04/10/2024 3:00 PM EST Office Visit [facility] ADULT DENTAL [address] [place] [address] Dorothy Mckeon documented as of this encounter Visit Diagnoses Not on filedocumented in this encounter Additional Health Concerns Assessment Noted Time PHQ-9 Depression Total Score: 17 023 4:02 PM EDT documented as of this encounter Care Teams Mold Shop Supervisor Relationship Specialty Start Date End Date Name, MD Haresh [address] [place] [address] PCP - General Family Medicine 09/08/18 Bruce Dumas FNP [address] [place] [address] [place] [address] Nurse Practitioner Family Medicine 01/11/23 [facility] 12/07/23 documented as of this encounter
--- OUTSIDE RECORDS SUMMARY | 2024-03-30 11:58 | XMS_ITS | Encounter Summary ---
Author Organization [employer] Address [address] [place] [address] [address] [place] [address] Care Team Providers Care Estimator Project Manager Name Role Phone Name, Haresh ELLIOTT Primary Care Provider [phone] Bruce Dumas Unavailable Unavailable Reason for Visit * Reason Onset Date Comments No Show 03/15/2024 Encounter Details Date Type Department Care Team ([facility] st Contact Info) Description 03/15/2024 Telephone [facility] [address] [place] [address] Name, MD Haresh [address] [place] [address] No Show Social History Tobacco Use Types [...] encounter Miscellaneous Notes * Telephone Encounter - Miesha Hidalgo - 03/15/2024 11:18 AM EST Patient no show to FOLLOW UP appointment on 03/15/24. documented in this encounter Plan of Treatment Upcoming Encounters Date Type Department Care Team (Late st Contact Info) Description 04/06/2024 9:00 AM EST Office Visit [facility] [address] [place] [address] Name, MD Haresh [address] [place] [address] 04/10/2024 3:00 PM EST Office Visit [facility] ADULT DENTAL [address] [place] [address] Dorothy Mckeon documented as of this encounter Visit Diagnoses Not on filedocumented in this encounter Additional Health Concerns Assessment Noted Time PHQ-9 Depression Total Score: 16 023 9:35 AM EST documented as of this encounter Care Teams Estimator Project Manager Relationship Specialty Start Date End Date Haresh Recinos MD [address] [place] [address] PCP - General Family Medicine 09/08/18 Bruce Dumas FNP [address] [place] [address] Nurse Practitioner Family Medicine 01/11/23 [facility] 12/07/23 documented as of this encounter
--- OUTSIDE RECORDS SUMMARY | 2024-03-30 11:58 | XMS_ITS | Encounter Summary ---
Author Organization [employer] Address [address] [place] [address] [address] [place] [address] Care Team Providers Care Jail Guard Name Role Phone Name, Haresh ELLIOTT Primary Care Provider [phone] Bruce Dumas Unavailable Unavailable Reason for Visit * Reason Onset Date Comments Appointment Request 03/21/2024 Encounter Details Date Type Department Care Team ([facility] st Contact Info) Description 03/21/2024 Telephone [facility]INE [address] [place] [address] Name, MD Haresh [address] [place] [address] Appointment Request Social History Tobacco Use Types [...] encounter Miscellaneous Notes * Telephone Encounter - Jocelyn Henriquez RN - 03/21/2024 3:22 PM EST TC placed to pt to book f/u and assess pt. Pt reports he would like a follow up with PCP to discussdiabetes and recent dizziness. Pt reports he is dizzy all the time. Pt reports he eats meals at regularly scheduled intervals and drinks 1-2 sixteen ounce bottles of water a day. Advised to continue drinking water and can drink more water. Pt reports he has gone to rest in chair and passes out and wakes up a couple hours later. Pt reports lowest blood sugar at 62 and highest at 298. Advised pt to go to [facility] for evaluation. Pt verbalized understanding. Pt booked for f/u with PCP on 04/06/24 with PCP. RN advised pt again to be evaluated at [facility]. Pt verbalized understanding and denies further questions or concerns at this time. * Telephone Encounter - Bimal Adames - 03/21/2024 12:33 PM EST Tc from pt requesting to make a Fu apt with name. Hand Blocker informed pt of Availability. Contact pt at [phone] documented in this encounter Plan of Treatment Upcoming Encounters Date Type Department Care Team (Late st Contact Info) Description 04/06/2024 9:00 AM EST Office Visit [facility] [address] [place] [address] Name, MD Haresh [address] [place] [address] 04/10/2024 3:00 PM EST Office Visit [facility] ADULT DENTAL [address] [place] [address] Dorothy Mckeon documented as of this encounter Visit Diagnoses Not on filedocumented in this encounter Additional Health Concerns Assessment Noted Time PHQ-9 Depression Total Score: 16 023 9:35 AM EST documented as of this encounter Care Teams Jail Guard Relationship Specialty Start Date End Date Name, MD Haresh [address] [place] [id number] PCP - General Family Medicine 09/08/18 Bruce Dumas FNP [address] [place] [address] Nurse Practitioner Family Medicine 01/11/23 Chapis A 12/07/23 documented as of this encounter
--- OUTSIDE RECORDS SUMMARY | 2024-03-30 11:59 | XMS_ITS | Encounter Summary ---
Author Organization [employer] Address [address] [place] [address] [address] [place] [address] Care Team Providers Care Cost Accounting Analyst Name Role Phone Name, Haresh ELLIOTT Primary Care Provider [phone] Bruce Dumas Unavailable Unavailable Reason for Visit * Reason Onset Date Comments Results 04/24/2022 Encounter Details Date Type Department Care Team ([facility] st Contact Info) Description 04/24/2022 Telephone [facility] MEDICINE [address] [place] [address] Name, MD Haresh [address] [place] [address] Results Social History Tobacco Use Types Packs/Day Years Used Date Smoking Tobacco: Every Day Cigarettes Depression Answer Date Recorded Patient Health Questionnaire-9 [...] suspected to have Coronavirus/COVID-19? No / Unsure 08/17/2022 1:07 PM EDT documented as of this encounter Miscellaneous Notes * Telephone Encounter - Lacy Valentin RN - 04/24/2022 2:07 PM EDT Action performed by Ita Frost, clinical assistant professor of religion, supervised by Lacy Valentin RN. TC placed to pt. No answer, phone not in service. Did fax over U/S of abdomen and most recent labs to fax info below. Fax sent successful. Tc from pt requesting for PCP to please fax XRAY and lab results to Dr. Hernando ELLIOTT @ [address] [place] [address] [place] [address] , gave fax # [phone] * Telephone Encounter - Lacy Valentin RN - 04/24/2022 2:07 PM EDT * Telephone Encounter - Siddharth Edmondson - 04/24/2022 1:15 PM EDT Tc from pt requesting for PCP to please fax XRAY and lab results to Dr. Hernando ELLIOTT @ [address] [place] [address] [place] [address] , gave fax # [phone] documented in this encounter Plan of Treatment Upcoming Encounters Date Type Department Care Team (Late st Contact Info) Description 04/06/2024 9:00 AM EST Office Visit [facility] MEDICINE [address] [place] [address] Name, MD Haresh [address] [place] [address] 04/10/2024 3:00 PM EST Office Visit [facility] ADULT DENTAL [address] [place] [address] Dorothy Mckeon documented as of this encounter Visit Diagnoses Not on filedocumented in this encounter Care Teams Cost Accounting Analyst Relationship Specialty Start Date End Date Name, MD Haresh [address] [place] [address] PCP - General Family Medicine 09/08/18 Bruce Dumas FNP [address] [place] [address] Nurse Practitioner Family Medicine 01/11/23 Chapis [facility] 12/07/23 documented as of this encounter
--- OUTSIDE RECORDS SUMMARY | 2024-03-30 11:59 | XMS_ITS | Encounter Summary ---
Author Organization [employer] Address [address] [place] [address] [address] [address] Care Team Providers Care Yardage Control Clerk Name Role Phone Name, Haresh ELLIOTT Primary Care Provider [phone] Bruce Dumas Unavailable Unavailable Reason for Visit * Reason Onset Date Comments FYI 12/09/2023 Encounter Details Date Type Department Care Team ([facility] st Contact Info) Description 12/09/[address] [facility] MEDICINE [address] [place] [address] Name, MD Haresh [address] [place] [address] FYI Social History Tobacco Use Types Packs/Day Years [...] Telephone Encounter - Lacy Valentin RN - 12/09/2023 4:32 PM EDT Noted * Telephone Encounter - Thad Nieto - 12/09/2023 4:16 PM EDT Tc from [place] to inform pcp they have started PT services with pt. documented in this encounter Plan of Treatment Upcoming Encounters Date Type Department Care Team (Late st Contact Info) Description 04/06/2024 9:00 AM EST Office Visit [facility] MED[facility]INE [address] [place] [address] Name, MD Haresh [address] [place] [address] 04/10/2024 3:00 PM EST Office Visit [facility] ADULT DENTAL [address] [place] [address] Dorothy Mckeon documented as of this encounter Visit Diagnoses Not on filedocumented in this encounter Additional Health Concerns Assessment Noted Time PHQ-9 Depression Total Score: 16 01/21/2 023 9:35 AM EST documented as of this encounter Care Teams Yardage Control Clerk Relationship Specialty Start Date End Date Name, MD Hraesh [address] [place] [address] PCP - General Family Medicine 09/08/18 Bruce Dumas FNP [address] [place] [address] Nurse Practitioner Family Medicine 01/11/23 Chapis [facility] 12/07/23 documented as of this encounter
--- OUTSIDE RECORDS SUMMARY | 2024-03-30 11:59 | XMS_ITS | Encounter Summary ---
Author Organization [employer] Address [address] [place] [address] [address] [address] Care Team Providers Care Hand Candle Molder Name Role Phone Name, Haresh ELLIOTT Primary Care Provider [phone] Bruce Dumas Unavailable Unavailable Reason for Visit * Reason Onset Date Comments Medication Question 12/22/2023 Encounter Details Date Type Department Care Team ([facility] st Contact Info) Description 12/22/2023 Telephone [facility] MED[facility]INE [address] [place] [address] Name, MD Haresh [address] [place] [address] Medication Question Social History Tobacco Use Types Packs/Day Years [...] Telephone Encounter - Lacy Valentin RN - 12/23/2023 10:25 AM EST Noted, pt is scheduled for HDF 12/24/23. * Telephone Encounter - Rabia Nair - 12/22/2023 3:19 PM EST Tc from pt stating he received a call requesting update on medication since hospital visit. -Trazadone 50mg -ventolin inhaler -eliquis 5mg -Tylenol 650mg -abilify 5mg If any questions contact pt at [phone] documented in this encounter Plan of Treatment Upcoming Encounters Date Type Department Care Team (Late st Contact Info) Description 04/06/2024 9:00 AM EST Office Visit [facility] MED[facility]INE [address] [place] [address] Name, MD Haresh [address] [place] [address] 04/10/2024 3:00 PM EST Office Visit [facility] ADULT DENTAL [address] [place] [address] Dorothy Mckeon documented as of this encounter Visit Diagnoses Not on filedocumented in this encounter Additional Health Concerns Assessment Noted Time PHQ-9 Depression Total Score: 16 023 9:35 AM EST documented as of this encounter Care Teams Hand Candle Molder Relationship Specialty Start Date End Date Name, MD Haresh [address] [place] [address] PCP - General Family Medicine 09/08/18 Bruce Dumas FNP [address] [place] [address] Nurse Practitioner Family Medicine 01/11/23 Chapis [facility] 12/07/23 documented as of this encounter
--- OUTSIDE RECORDS SUMMARY | 2024-03-30 11:59 | XMS_ITS | Clinical Summary ---
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 been disclosed to you from records whose confidentiality may be protected by state law. ??If your state requires such protection, then the state law prohibits you from making any further disclosure of the information without the specific written consent of the person to whom it pertains, or as otherwise permitted by law. A general authorization for the release of medical or other information is NOT sufficient for this purpose. ? For additional information please refer to http://education.Veeqo/faq/GOX976 (This link is being provided for informational/ educational purposes only.) ? The performance of this assay has not been clinically validated in patients less than 2 years old. ?? 11/27/2021 11:2 2 AM EDT Montse Duffy MD LAB BLOOD ORDERABLES Final R esult [facility] from Last 3 Months or Most Recently Relevant to Health Maintenance Insurance [facility] MEDICAID STAND ADULT Care Teams Structural Steel Equipment Erector Relationship Specialty Start Date End Date Name, MD Haresh [address] [place] [phone] PCP - General Family Medicine 09/08/18 Bruce Dumas FNP [address] [place] [address] [place] [address] Nurse Practitioner Family Medicine 01/11/23 [place] [facility] 12/07/23
--- OUTSIDE RECORDS SUMMARY | 2024-03-30 11:59 | XMS_ITS | Encounter Summary ---
Author Organization [email or web address] Address [address] [facility] 7t [place] [address] Care Team Providers Care Film Processing Utility Worker Name Role Phone Name, Haresh ELLIOTT Primary Care Provider [phone] Bruce Dumas Unavailable Unavailable Reason for Visit * Reason Onset Date Comments Hospital Follow-up 12/09/2023 Encounter Details Date Type Department Care Team ([facility] st Contact Info) Description 12/09/2023 Telephone [facility] [address] [place] [address] Name, MD Haresh [address] [place] [address] Hospital Follow-up Social History Tobacco Use Types Packs/Day Years [...] encounter Miscellaneous Notes * Telephone Encounter - Pham Bustos - 12/09/2023 9:20 AM EDT Tc from pt requesting a HDF appt. Hospital: [facility] Date of admission: States about 5 months ago Discharge date: 12/08/23 Diagnosed: mild stroke documented in this encounter Plan of Treatment Upcoming Encounters Date Type Department Care Team (Late st Contact Info) Description 04/06/2024 9:00 AM EST Office Visit [facility] [address] [place] [address] Name, MD Haresh [address] [place] [address] 04/10/2024 3:00 PM EST Office Visit [facility] ADULT DENTAL [address] [place] [address] Dorothy Mckeon documented as of this encounter Visit Diagnoses Not on filedocumented in this encounter Additional Health Concerns Assessment Noted Time PHQ-9 Depression Total Score: 16 023 9:35 AM EST documented as of this encounter Care Teams Film Processing Utility Worker Relationship Specialty Start Date End Date Name, MD Haresh [address] [place] [phone] PCP - General Family Medicine 09/08/18 Bruce Dumas FNP [address] [place] [address] [place] [address] Nurse Practitioner Family Medicine 01/11/23 [place] [facility] 12/07/23 documented as of this encounter
--- OUTSIDE RECORDS SUMMARY | 2024-03-30 11:59 | XMS_ITS | Encounter Summary ---
Author Organization [employer] Address [address] [facility] [address] [place] [address] Care Team Providers Care Supervisor Home Restoration Service Name Role Phone Name, Haresh ELLIOTT Primary Care Provider [phone] Bruce Dumas Unavailable Unavailable Reason for Visit * Reason Onset Date Comments requesting a call back 02/04/2022 Encounter Details Date Type Department Care Team ([facility] Contact Info) Description 02/04/2022 Telephone [facility]INE [address] [place] [address] Name, MD Haresh [address] [place] [address] requesting a call back Social History Tobacco Use Types Packs/Day Years Used Date Smoking Tobacco: Never Assessed Depression Answer Date Recorded Patient Health Questionnaire-9 [...] encounter Miscellaneous Notes * Telephone Encounter - Jackelyn Hidalgo RN - 02/06/2022 10:19 AM EST Please see message below. Pt referred to general surgery on 01/23/22. Pt seen in walk in clinic by Dr. Almanzar. Please follow up with pt regarding the ordered referral. Thank you. * Telephone Encounter - Pham Bustos - 02/04/2022 9:32 AM EST Tc from pt requesting a call back regarding last message . * Telephone Encounter - Siddharth Edmondson - 02/04/2022 8:40 AM EST Tc from pt requesting a call back from a nurse, States they were scheduled for 02/03/22 @ 1:30pm @ [facility] for General Surgery however pt stated they waited 2 hours and was advised pt was never scheduledwith them and does not have any records of pt. Advised pt will leave a message. Please contact for clarification per referral selling underwriter sees pt was referred on 01/23/22 to [facility] Rebecca Reed. Please contact at [phone] documented in this encounter Plan of Treatment Upcoming Encounters Date Type Department Care Team (Late st Contact Info) Description 04/06/2024 9:00 AM EST Office Visit [facility] MEDICINE [address] [place] [phone] Name, MD Haresh [address] [place] [address] 04/10/2024 3:00 PM EST Office Visit [facility] ADULT DENTAL [address] [place] [address] Dorothy Mckeon documented as of this encounter Visit Diagnoses Diagnosis Uncomplicated opioid dependence (CMS/HCC) documented in this encounter Care Teams Supervisor Home Restoration Service Relationship Specialty Start Date End Date Name, MD Haresh [address] [place] [phone] PCP - General Family Medicine 09/08/18 Bruce Dumas FNP [address] [place] [address] Nurse Practitioner Family Medicine 01/11/23 [place] [facility] 12/07/23 documented as of this encounter
== END 2024-03-30 11:08 | disposition home or self-care (01) ==
PROVIDERS: PCP Internal Medicine Geriatric Medicine; Visit Provider Internal Medicine Hypertension Specialist
DX: N17.9 Acute kidney failure, unspecified (principal); N18.32 Chronic kidney disease, stage 3b
CPT/HCPCS: 99214

== ENCOUNTER → 2024-03-30 10:50 | Outpatient (BNVA) | payer OTHER, SELFPAY | PROVIDERS: PCP Internal Medicine Geriatric Medicine; Visit Provider Internal Medicine Hypertension Specialist | DX: N18.32 Chronic kidney disease, stage 3b (principal); N17.9 Acute kidney failure, unspecified | CPT/HCPCS: 99212 ==

== ENCOUNTER 2024-04-25 09:54 | Outpatient (REF) | payer OTHER, SELFPAY ==
--- NOTE | ~2024-04-25 | US_ITS ---
EXAMINATION: US TRIPLEX LOWER EXTREMITY, RIGHT CLINICAL INFORMATION: Swelling, right lower extremity. COMPARISON: October 08, 2023 demonstrated acute on chronic DVT, right common femoral and femoral veins. TECHNIQUE: Color-flow triplex imaging with spectral analysis and compression Doppler were performed on the right lower extremity. FINDINGS: Respiratory variation, normal compression and augmented flow are noted throughout the visualized common femoral vein, superficial femoral vein, profunda femoral vein, popliteal vein and midcalf peroneal and posterior tibial venous segments . There is no Ferreira's cyst. Nonspecific prominent 2.9 cm lymph node, right inguinal. US/US venous duplex LE RT IMPRESSION: No acute deep venous thrombosis involving the right lower extremity. Negative for DVT.. Electronically signed by: Mahesh Lua MD 04/25/2024 02:36 PM EDT
--- OUTSIDE RECORDS SUMMARY | 2024-04-25 11:11 | XMS_ITS | Encounter Summary ---
Author Organization [employer] Address [address] [place] [address] 7[address] [place] [address] Care Team Providers Care Vacuum Cleaner Mechanic Name Role Phone Name, Haresh ELLIOTT Primary Care Provider [phone] Bruce Dumas Unavailable Unavailable Reason for Visit * Reason Comments Med Refill Encounter Details Date Type Department Care Team (Late st Contact Info) Description 02/18/2023 Refill [facility] [address] [place] [address] Montse Duffy MD [address] [place] [address] Uncomplicated opioid dependence (CMS/HCC) Social History Tobacco [...] Care Team (Late st Contact Info) Description 04/27/2024 11:15 AM EDT Telemedicine [facility] [address] [place] [phone] NameHaresh MD [address] [place] [address] 05/26/2024 2:30 PM EDT Office Visit [facility] ADULT DENTAL [address] [place] [address] Alejandro Aj DDS [address] [place] [address] 07/12/2024 2:00 PM EDT Office Visit [facility] ADULT DENTAL [address] [place] [phone] Dorothy Mckeon documented as of this encounter Visit Diagnoses Diagnosis Uncomplicated opioid dependence (CMS/HCC) documented in this encounter Additional Health Concerns Assessment Noted Time PHQ-9 Depression Total Score: 16 023 9:35 AM EST documented as of this encounter Care Teams Vacuum Cleaner Mechanic Relationship Specialty Start Date End Date Haresh Recinos MD [address] [place] [address] PCP - General Family Medicine 09/08/18 Bruce Dumas FNP [address] [place] [address] Nurse Practitioner Family Medicine 01/11/23 [place] [facility] 12/07/23 documented as of this encounter
--- OUTSIDE RECORDS SUMMARY | 2024-04-25 11:11 | XMS_ITS | Encounter Summary ---
Author Organization [employer] Address [address] [facility] 7t [place] [address] Care Team Providers Care Truck Shop Supervisor Name Role Phone Name, Haresh ELLIOTT Primary Care Provider [phone] Bruce Dumas Unavailable Unavailable Reason for Visit * Reason Comments Dental Exam Routine Cleaning Encounter Details Date Type Department Care Team (Late st Contact Info) Description 04/10/2024 3:00 PM EST Office Visit [facility] ADULT DENTAL [address] [place] [address] Dorothy Mckeon Dental calculus (Primary Dx); Dental plaque; Periodontal disease; Encounter for dental examination Social History Tobacco Use Types Packs/Day Years [...] AM EDT documented as of this encounter Last Filed Vital Signs Vital Sign Reading Time Taken Comments Blood Pressure 132/100 04/10/2024 2:57 PM EST Pulse - - Temperature - - Respiratory Rate - - Oxygen Saturation - - Inhaled Oxygen Concentration - - Weight - - Height - - Body Mass Index - - documented in this encounter Progress Notes * Dorothy Mckeon - 04/10/2024 3:00 PM EST Patient ID: Jason Martinez is a 53 y.o. male. Time Out: Timeout Date: 04/10/24, Timeout Time: 1454 (prophy and exam) Location: [facility] Tooth: Maxilla and Mandible Procedure: Exam, X-rays, and Prophylaxis Verified the above with patient, aquatics assistant department head, and provider. Confirmed via patient's chart, intraorally and by radiographs. Microfilmer: not applicable Medical Hx: Vitals: Blood pressure (!) 132/100. Medications, Med Hx reviewed with patient and updated in chart. Treatment Provided Dental procedures in this visit D1110 - PROPHYLAXIS - ADULT (Completed) Service provider: Dorothy Mckeon Billing provider: Ritika Cooper DDS D0210 - INTRAORAL - COMPLETE SERIES OF RADIOGRAPHIC IMAGES (Completed) Service provider: Dorothy Mckeon Billdominique provider: Ritika Cooper DDS D1330 - ORAL HYGIENE INSTRUCTIONS (Completed) Service provider: Dorothy Mckeon Billdominique provider: Ritika Cooper DDS D9418 - CASE PRESENTATION, DETAILED AND EXTENSIVE TREATMENT PLANNING (Completed) Service provider: Dorothy Mckeon Billing provider: Ritika Cooper DDS D4355 - FULL MOUTH DEBRIDEMENT TO ENABLE A COMPREHENSIVE ORAL EVALUATION AND DIAGNOSIS ON A SUBSEQUENT VISIT (Completed) Service provider: Dorothy Mckeon Billing provider: Ritika Cooper DDS Instruments Used: Ultrasonic Scalers Fluoride: N/A Oral Cancer Screening: No lesions Head/Neck Exam: No Lesions Calculus: Heavy, Generalized, and Subgingival Plaque: Heavy and Generalized Stain: Moderate and Generalized Bleeding: Heavy and Generalized Gingiva: Perio Charting Completed, Recession- generalized, and Inflamed OH: Poor Perio Chart: Completed Patient presents with periodontal disease. Calculus present Subgingivally, Supragingivally, Generalized, and Heavy that can be seen radiographically. BOP: Generalized and Heavy Exudate: Not Present Mobility: Grade I and Grade III Generalized Probing Depths Range: 4 to 9 mm Recession: Generalized ranging from 2 to 7 mm. Gingiva: Inflamed and Rolled margins Bone loss visible radiographically: Generalized Pre Authorization requested for SRP. SRP treatment needed to promote gingival health, arrest disease progression of periodontal disease and prevent tooth loss. Provider: Dorothy Mckeon Oral hygiene instructions provided to patient including brushing technique and flossing. Recommendations: Reserve two times daily, modified eisenberg technique, Floss daily, Electric toothbrush, Soft bristle toothbrush, Reserve Tongue, Anti-sensitivity toothpaste Recall Frequency: 3 mo NV: Upon SRP approval Hygienist: Dorothy Mckeon RDH Cosigned by Ritika Cooper DDS at 04/14/2024 8:23 AM EST Associated attestation - Ritika Cooper DDS - 04/14/2024 8:23 AM EST I have reviewed the documentation and dental procedures made by the rendering provider, Dorothy Mckeon RDH , and approve their chart entries for this visit. Ritika Cooper DDS * Ritika Cooper DDS - 04/10/2024 3:00 PM EST Dental procedures in this visit D1110 - PROPHYLAXIS - ADULT (Completed) Service provider: Dorothy Mckeon Billdominique provider: Ritika Cooper DDS D0210 - INTRAORAL - COMPLETE SERIES OF RADIOGRAPHIC IMAGES (Completed) Service provider: Dorothy Mckeon Billdominique provider: Ritika Cooper DDS D1330 - ORAL HYGIENE INSTRUCTIONS (Completed) Service provider: Dorothy Mckeon Billdominique provider: Ritika Cooper DDS D9450 - CASE PRESENTATION, DETAILED AND EXTENSIVE TREATMENT PLANNING (Completed) Service provider: Dorothy Mckeon Billdominique provider: Ritika Cooper DDS D4355 - FULL MOUTH DEBRIDEMENT TO ENABLE A COMPREHENSIVE ORAL EVALUATION AND DIAGNOSIS ON A SUBSEQUENT VISIT (Completed) Service provider: Dorothy Mckeon Billdominique provider: Ritika Cooper DDS D0120 - PERIODIC ORAL EVALUATION - ESTABLISHED PATIENT (Completed) Service provider: Ritika Cooper DDS Billing provider: Ritika Cooper DDS D0180 - COMPREHENSIVE PERIODONTAL EVALUATION - NEW OR ESTABLISHED PATIENT (Completed) Service provider: Ritika Cooper DDS Billing provider: Ritika Cooper DDS Patient ID: Jason Martinez is a 53 y.o. male. Time Out: No data recorded Location: [facility] Tooth: Maxilla and Mandible Procedure: Exam, X-rays, and Prophylaxis Verified the above with patient, aquatics assistant department head, and provider. Confirmed via patient's chart, intraorally and by radiographs. Microfilmer: not applicable Chief Complaint Patient presents with Dental Exam Routine Cleaning Medical Hx: Vitals: Blood pressure (!) 132/100. Past Medical History: Diagnosis Date Asthma 01/10/2022 Depressive disorder 01/10/2022 Diabetes mellitus ([facility]) DMII (diabetes mellitus, type 2) ([facility]) 06/16/2022 Hypertension Major depression, recurrent ([facility]) 12/24/2023 PTSD (post-traumatic stress disorder) 05/21/2022 Substance abuse ([facility]) 06/16/2022 Traveling blood clot in leg ([facility]) Medications: Outpatient Encounter Medications as of 04/10/2024 Medication Sig Dispense Refill acetaminophen (Tylenol 8 Hour) 650 MG ER tablet Take 1 tablet (650 mg) by mouth every 8 (eight) hours if needed for moderate pain. Do not crush, chew, or split. 90 tablet 3 albuterol 108 (90 Base) MCG/ACT inhaler INHALE 2 PUFFS BY MOUTH FOUR TIMES DAILY NEEDED 8.5 g 1 Alcohol Swabs (Alcohol Prep) pads Use as directed 100 each 3 apixaban (Eliquis) 5 MG tablet TAKE 1 TABLET BY MOUTH TWICE DAILY 60 tablet 0 ARIPiprazole (Abilify) 5 MG tablet Take 0.5 tablets by mouth Once per day. Blood Glucose Monitoring Suppl (Purplu glucose monitoring) kit Use as directed 1 each 0 gabapentin (Neurontin) 100 MG capsule Take 1 capsule (100 mg) by mouth 2 times daily. 60 capsule 3 Lancets (Locondo.jpuch Delica Plus Kucdle29G) mis TEST BLOOD SUGAR TWICE DAILY 100 each 11 lidocaine (Lidoderm) 5 % patch APPLY 1 PATCH TOPICALLY TO SKIN, LEAVE ON FOR 12 HOURS AND OFF FOR 12 HOURS DIRECTED 30 patch 4 naloxone (Narcan) 4 mg/0.1 mL nasal spray Administer 0.1 mL into affected nostril(s). omeprazole OTC (PriLOSEC OTC) 20 MG EC tablet Take 1 tablet (20 mg) by mouth before breakfast. Do not crush, chew, or split. 30 tablet 11 polyethylene glycol, PEG, 3350 (MiraLax) 17 GM/SCOOP powder 17g per package directions once daily as needed for constipation 238 g 0 sertraline (Zoloft) 25 MG tablet Take 0.5 tablets (12.5 mg) by mouth Once per day. 15 tablet 0 traZODone (Desyrel) 50 MG tablet Take 0.5 tablets (25 mg) by mouth at bedtime. 15 tablet 0 [DISCONTINUED] acetaminophen (Tylenol 8 Hour) 650 MG ER tablet TAKE 1 TABLET BY MOUTH EVERY 6 HOURSAS NEEDED FOR PAIN OR FEVER. 60 tablet 1 No facility-administered encounter medications on file as of 04/10/2024. Objective HPI Soft Tissue Exam No findings documented this visit Head and Neck Exam: Lymph Nodes, Lips, Palate, Buccal Mucosa, Floor of Mouth, Tongue, Tonsils, Alveolar Ridges, Oropharynx, Salivary Ducts, and Vestibules - no significant findings observed OCS: negative Dental Exam Radiographic Interpretation: Associated radiographs for today's visit were reviewed and finding(s) were discussed with the patient. Findings include: severe bone loss, calculus, mobility, missing teeth, PD, caries Hard Tissue Exam: Caries, bone loss generalized, poor OH, mobility type III, calculus, inflammation of gums Perio Dx: Generalized Chronic Periodontitis Stage: III Grade: B Reference tooth chart for additional findings. Oral Cancer Risk: Low Risk Oral Hygiene Instructions: Reserve two times daily, modified eisenberg technique, Floss daily, Soft bristle toothbrush, Reserve Tongue, Chlorhexidine Caries Risk Assessment: Medium- one risk factor Assessment/Plan Exts Srps CD/RPD Patient tolerated procedure well, all questions answered and expressed understanding. Dismissed in good condition. NV: exts Director Of Real Estate: Bernarda Morales Dentist: Ritika Cooper DDS documented in this encounter Plan of Treatment Upcoming Encounters Date Type Department Care Team (Late st Contact Info) Description 04/27/2024 11:15 AM EDT Telemedicine [facility] MEDICINE [address] [place] [address] Name, MD Haresh [address] [place] [address] 05/26/2024 2:30 PM EDT Office Visit [facility] ADULT DENTAL [address] [place] [address] Alejandro Aj DDS [address] [place] [address] 07/12/2024 2:00 PM EDT Office Visit [facility] ADULT DENTAL [address] [place] [address] Dorothy Mckeon Scheduled Orders Name Type Priority Associated Diagnoses Orde r Schedule 2 2 EXTRACTION, ERUPTED TOOTH OR EXPOSED ROOT (ELEVATION/FORCEPS REMOVAL) Dental Routine [address] [facility] 04/10/2024 4 4 EXTRACTION, ERUPTED TOOTH OR EXPOSED ROOT (ELEVATION/FORCEPS REMOVAL) Dental Routine 1 Occurrences [facility] 04/10/2024 5 5 EXTRACTION, ERUPTED TOOTH OR EXPOSED ROOT (ELEVATION/FORCEPS REMOVAL) Dental Routine 1 Occurrences [facility] 04/10/2024 11 11 EXTRACTION, ERUPTED TOOTH OR EXPOSED ROOT (ELEVATION/FORCEPS REMOVAL) Dental Routine 1 Occurrences [facility] 04/10/2024 Max Max COMPLETE DENTURE - MAXILLARY Dental Routine 1 Occurrences [facility] 04/10/2024 LL LL PERIODONTAL SCALING AND ROOT PLANING - 4 OR MORE TEETH PER QUADRANT Dental Routine 1 Occurrences [facility] 04/10/2024 30,31,29,18 30,31,29,18 MANDIBULAR PARTIAL DENTURE - RESIN BASE (INCLUDING, RETENTIVE/CLASPING MATERIALS, RESTS, AND TEETH) Dental Routine 1 Occurrences [facility] 04/14/2024 documented as of this encounter Procedures Procedure Name Priority Date/Time Associated Diagnosis Comments PROPHYLAXIS - ADULT Routine 04/10/2024 3 :00 PM EST Dental calculus Dental plaque Periodontal disease PERIODIC ORAL EVALUATION - ESTABLISHED PATIENT Routine 04/10/2024 3:00 PM EST Dental calculus Dental plaque Periodontal disease Encounter for dental examination ORAL HYGIENE INSTRUCTIONS Routine 2024 3:00 PM EST Dental calculus Dental plaque Periodontal disease INTRAORAL - COMPLETE SERIES OF RADIOGRAPHIC IMAGES Routine 04/10/2024 3:00 PM EST FULL MOUTH DEBRIDEMENT TO ENABLE A COMPREHENSIVE ORAL EVALUATION AND DIAGNOSIS ON A SUBSEQUENT VISIT Routine 04/10/2024 3:00 PM EST Dental calculus Dental plaque Periodontal disease COMPREHENSIVE PERIODONTAL EVALUATION - NEW OR ESTABLISHED PATIENT Routine 04/10/2024 3:00 PM EST Dental calculus Dental plaque Periodontal disease Encounter for dental examination CASE PRESENTATION, DETAILED AND EXTENSIVE TREATMENT PLANNING Routine 04/10/2024 3:00 PM EST documented in this encounter Visit Diagnoses Diagnosis Dental calculus- Primary Accretions on teeth Dental plaque Accretions on teeth Periodontal disease Unspecified gingival and periodontal disease Encounter for dental examination documented in this encounter Additional Health Concerns Assessment Noted Time PHQ-9 Depression Total Score: 16 1214/2 023 9:35 AM EST documented as of this encounter Care Teams Truck Shop Supervisor Relationship Specialty Start Date End Date Name, MD Haresh [address] [place] [phone] PCP - General Family Medicine 09/08/18 Bruce Dumas FNP [address] [facility] [place] [address] Nurse Practitioner Family Medicine 01/11/23 [place] [facility] 12/07/23 documented as of this encounter
--- OUTSIDE RECORDS SUMMARY | 2024-04-25 11:11 | XMS_ITS | Encounter Summary ---
Author Organization [employer] Address [address] [place] [address] [address] [address] Care Team Providers Care Gas Distribution Supervisor Name Role Phone Name, Haresh ELLIOTT Primary Care Provider [phone] Bruce Dumas Unavailable Unavailable Reason for Visit * Reason Onset Date Comments Appointment Request 03/15/2024 Encounter Details Date Type Department Care Team ([facility] st Contact Info) Description 03/15/2024 Telephone [facility] MEDICINE [address] [place] [address] Name, MD Haresh [address] [place] [address] Appointment Request Social History Tobacco Use Types [...] on a recall list. Contact pt at [phone] documented in this encounter Plan of Treatment Upcoming Encounters Date Type Department Care Team (Late st Contact Info) Description 04/27/2024 11:15 AM EDT Telemedicine [facility] MEDICINE [address] [place] [address] Name, MD Haresh [address] [place] [address] 05/26/2024 2:30 PM EDT Office Visit [facility] ADULT DENTAL [address] [place] [address] Alejandro Aj DDS [address] [place], [place] [phone] 07/12/2024 2:00 PM EDT Office Visit [facility] ADULT DENTAL [address] [place] [address] Dorothy Mckeon documented as of this encounter Visit Diagnoses Not on filedocumented in this encounter Additional Health Concerns Assessment Noted Time PHQ-9 Depression Total Score: 16 023 9:35 AM EST documented as of this encounter Care Teams Gas Distribution Supervisor Relationship Specialty Start Date End Date Name, MD Haresh [address] [place] [address] PCP - General Family Medicine 09/08/18 Bruce Dumas FNP [address] [place] [address] Nurse Practitioner Family Medicine 01/11/23 [place] [facility] 12/07/23 documented as of this encounter
--- OUTSIDE RECORDS SUMMARY | 2024-04-25 11:11 | XMS_ITS | Encounter Summary ---
Author Organization [employer] Address [address] [place] [address] [address] [address] Care Team Providers Care Tire Wrapper Name Role Phone Name, Haresh ELLIOTT Primary Care Provider [phone] Bruce Dumas Unavailable Unavailable Reason for Visit * Reason Onset Date Comments No Show 10/06/2022 Encounter Details Date Type Department Care Team ([facility] st Contact Info) Description 10/06/2022 Telephone [facility] MEDICINE [address] [place] [address] Name, MD Haresh [address] [place] [address] No Show Social History Tobacco Use Types [...] accepted this outcome Please contact pt at [phone] documented in this encounter Plan of Treatment Upcoming Encounters Date Type Department Care Team (Late st Contact Info) Description 04/27/2024 11:15 AM EDT Telemedicine [facility] MEDICINE [address] [place] [address] Name, MD Haresh [address] [place] [address] 05/26/2024 2:30 PM EDT Office Visit [facility] ADULT DENTAL [address] [place] [address] Alejandro Aj DDS [address] [place] [address] 07/12/2024 2:00 PM EDT Office Visit [facility] ADULT DENTAL [address] [place] [address] Dorothy Mckeon documented as of this encounter Visit Diagnoses Not on filedocumented in this encounter Additional Health Concerns Assessment Noted Time PHQ-9 Depression Total Score: 17 023 4:02 PM EDT documented as of this encounter Care Teams Tire Wrapper Relationship Specialty Start Date End Date Name, MD Haresh [address] [place] [address] PCP - General Family Medicine 09/08/18 Bruce Dumas FNP [address] [place] [address] Nurse Practitioner Family Medicine 01/11/23 [place] [facility] 12/07/23 documented as of this encounter
--- OUTSIDE RECORDS SUMMARY | 2024-04-25 11:11 | XMS_ITS | Encounter Summary ---
Author Organization [employer] Address [address] [place] [address] [address] [place] [address] Care Team Providers Care Dairy Nutrition Specialist Name Role Phone Name, Haresh ELLIOTT Primary Care Provider [phone] Bruce Dumas Unavailable Unavailable Reason for Visit * Reason Onset Date Comments FYI 12/09/2023 Encounter Details Date Type Department Care Team ([facility] st Contact Info) Description 12/09/2023 Telephone [facility] MEDICINE [address] [place] [address] Name, MD Haresh [address] [place] [address] FYI Social History Tobacco Use Types Packs/Day [...] Info) Description 04/27/2024 11:15 AM EDT Telemedicine [facility] MEDICINE [address] [place] [address] Name, MD Haresh [address] [place] [address] 05/26/2024 2:30 PM EDT Office Visit [facility] ADULT DENTAL [address] [place] [address] Alejandro Aj DDS [address] [place] [address] 07/12/2024 2:00 PM EDT Office Visit [facility] ADULT DENTAL [address] [place] [address] Dorothy Mckeon documented as of this encounter Visit Diagnoses Not on filedocumented in this encounter Additional Health Concerns Assessment Noted Time PHQ-9 Depression Total Score: 16 023 9:35 AM EST documented as of this encounter Care Teams Dairy Nutrition Specialist Relationship Specialty Start Date End Date Name, MD Haresh [address] [place] [address] PCP - General Family Medicine 09/08/18 Bruce Dumas FNP [address] [place] [address] Nurse Practitioner Family Medicine 01/11/23 [place] [facility] 12/07/23 documented as of this encounter
--- OUTSIDE RECORDS SUMMARY | 2024-04-25 11:11 | XMS_ITS | Encounter Summary ---
Author Organization [employer] Address [address] [place] [address] [address] [place] [address] Care Team Providers Care Mathematics Professor Name Role Phone Name, Haresh ELLIOTT Primary Care Provider [phone] Bruce Dumas Unavailable Unavailable Reason for Visit * Reason Comments Med Refill Encounter Details Date Type Department Care Team (Late st Contact Info) Description 01/22/2022 Refill [facility] MEDICINE [address] [place] [address] NameHaresh MD [address] [place] [address] [phone] Social History Tobacco Use Types Packs/Day Years [...] Info) Description 04/27/2024 11:15 AM EDT Telemedicine [facility] MEDICINE [address] [place] [address] [phone] Haresh Recinos MD [address] [place] [address] 05/26/2024 2:30 PM EDT Office Visit [facility] ADULT DENTAL [address] [place] [address] Alejandro Aj DDS [address] [place], [place] [phone] 07/12/2024 2:00 PM EDT Office Visit [facility] ADULT DENTAL [address] [place] [address] Dorothy Mckeon documented as of this encounter Visit Diagnoses Not on filedocumented in this encounter Care Teams Mathematics Professor Relationship Specialty Start Date End Date Name, MD Haresh [address] [place] [address] PCP - General Family Medicine 09/08/18 Bruce Dumas FNP [address] [place] [address] Nurse Practitioner Family Medicine 01/11/23 [facility] 12/07/23 documented as of this encounter
--- OUTSIDE RECORDS SUMMARY | 2024-04-25 11:11 | XMS_ITS | Encounter Summary ---
Author Organization [employer] Address [address] [facility] 7t [place] [address] Care Team Providers Care Hard Candy Spinner Name Role Phone Name, Haresh ELLIOTT Primary Care Provider [phone] Bruce Dumas Unavailable Unavailable Encounter Details Date Type Department Care Team (Latest Contact Info) Description 04/06/2024 Travel Social History Tobacco Use Types Packs/Day Years [...] Info) Description 04/27/2024 11:15 AM EDT Telemedicine [facility] MEDICINE [address] [place] [address] NameHaresh MD [address] [place] [address] 05/26/2024 2:30 PM EDT Office Visit [facility] ADULT DENTAL [address] [place] [address] Alejandro Aj DDS [address] [place] [address] 07/12/2024 2:00 PM EDT Office Visit [facility] ADULT DENTAL [address] [place] [address] Dorothy Mckeon documented as of this encounter Visit Diagnoses Not on filedocumented in this encounter Additional Health Concerns Assessment Noted Time PHQ-9 Depression Total Score: 16 023 9:35 AM EST documented as of this encounter Care Teams Hard Candy Spinner Relationship Specialty Start Date End Date Haresh Recinos MD [address] [place] [address] PCP - General Family Medicine 09/08/18 Bruce Dumas FNP [address] [place] [address] Nurse Practitioner Family Medicine 01/11/23 [place] [facility] 12/07/23 documented as of this encounter
--- OUTSIDE RECORDS SUMMARY | 2024-04-25 11:11 | XMS_ITS | Encounter Summary ---
Author Organization [employer] Address [address] [facility] 7t [place] [address] Care Team Providers Care Senior Mechanical Estimator Name Role Phone Name, Haresh ELLIOTT Primary Care Provider [phone] Bruce Dumas TOOL DESIGN DRAFTER Unavailable Unavailable Reason for Visit * Reason Onset Date Comments chartprep 04/04/2024 Encounter Details Date Type Department Care Team ([facility] st Contact Info) Description 04/04/2024 Telephone [facility] PEDS [address] [place], [place] [phone] Name, MD Haresh [address] [place] [address] chartprep Social History Tobacco Use Types Packs/Day Years [...] is your housing situation today? I have iflippo khan 12/09/[address] you [...] encounter Miscellaneous Notes * Telephone Encounter - Brittani Erwin [place] - 04/04/2024 9:06 AM EST Chart Prep Labs: done Images: not applicable Vaccines due: yes Covid, tdap, hep a, hep b, pcv20, flu, and zoster. Referrals: nephrology - complete Screenings: colonoscopy , eye exam , Foot Exam Overdue care gaps: A1C, Glucose, PHQ-9, MYKE-7 documented in this encounter Plan of Treatment Upcoming Encounters Date Type Department Care Team (Late st Contact Info) Description 04/27/2024 11:15 AM EDT Telemedicine [facility] MEDICINE [address] [place] [address] Name, MD Haresh [address] [place] [address] 05/26/2024 2:30 PM EDT Office Visit [facility] ADULT DENTAL [address] [place] [address] Alejandro Aj DDS [address] [place] [address] 07/12/2024 2:00 PM EDT Office Visit [facility] ADULT DENTAL [address] [place] [address] Dorothy Mckeon documented as of this encounter Visit Diagnoses Not on filedocumented in this encounter Additional Health Concerns Assessment Noted Time PHQ-9 Depression Total Score: 16 023 9:35 AM EST documented as of this encounter Care Teams Senior Mechanical Estimator Relationship Specialty Start Date End Date Name, MD Haresh [address] [place] [address] PCP - General Family Medicine 09/08/18 Bruce Dumas FNP [address] [place] [address] Nurse Practitioner Family Medicine 01/11/23 [facility] 12/07/23 documented as of this encounter
--- OUTSIDE RECORDS SUMMARY | 2024-04-25 11:11 | XMS_ITS | Patient Health Record ---
Author Organization [facility] Address [address] [place], [place] [id number] Care Team Providers Care Cleaner Window Name Role Phone No, PCP Primary Care Provider Yannick Pérez Unavailable [phone] Reason For Referral No Information Plan Of Treatment No Information Insurance Providers Payer Name Payer Address Payer Phone Subscriber Number Group Number Insured Name Patient Relationship to Insured Coverage Start Date Coverage End Date Insurance - Refuse Patient refuse to apply for insurance [address] [place] [id number] Jason Martinez Self - patient is the insured 2 2
--- OUTSIDE RECORDS SUMMARY | 2024-04-25 11:11 | XMS_ITS | Encounter Summary ---
Author Organization [employer] Address [address] [place] [address] 7t [place] [address] Care Team Providers Care School Bus Attendant Name Role Phone Name, Haresh ELLIOTT Primary Care Provider [phone] Bruce Dumas Unavailable Unavailable Reason for Referral * Imaging (Routine) - Pending Review Specialty Diagnoses / Procedures Referred By Ignacio harris Referred To Contact Cardiology Diagnoses Right leg paresthesias History of deep venous thrombosis (DVT) of distal vein of right lower extremity Right leg swelling Procedures Vascular US lower extremity venous duplex right Haresh Recinos MD [address] [place] [address] Phone: tel: fax: [address] Phone: tel: fax: Referral ID Status Reason Start Date Expiration Date Visits Requested Visits Authorized [id number] Pending Review Perform Procedure 04/06/2024 04/06/2025 1 1 Reason for Visit * Reason Comments Diabetes Encounter Details Date Type Department Care Team (Late st Contact Info) Description 04/06/2024 9:00 AM EST Office Visit [facility] MEDICINE [address] [place], [place] [phone] Haresh Recinos MD [address] [place], [place] [phone] Chest pain, unspecified type (Primary Dx); Palpitations; Stage 3 chronic kidney disease, unspecified whether stage 3a or 3b CKD (CMS/HCC); Right leg swelling; Right leg paresthesias; History of deep venous thrombosis (DVT) of distal vein of right lower extremity; Vaccine refused by patient; Type 2 diabetes mellitus with hyperglycemia, without long-term current use of insulin ([facility]) Social History Tobacco Use Types Packs/Day Years [...] Sign Reading Time Taken Comments Blood Pressure 140/87 04/06/2024 9:25 AM EST Pulse 117 04/06/2024 9:25 AM EST Temperature 35.6 ??C (96 ??F) 04/06/2024 9:25 AM EST Respiratory Rate 21 04/06/2024 9:25 AM EST Oxygen Saturation 98% 04/06/2024 9:25 AM EST Inhaled Oxygen Concentration - - Weight 130 kg (286 lb) 04/06/2024 9:25 AM EST Height 172.7 cm (5' 8 ) 04/06/2024 9:25 AM EST Body Mass Index 43.49 04/06/2024 9:25 AM EST documented in this encounter Progress Notes * Haresh Name, - 04/06/2024 9:00 AM EST Subjective Patient ID: Jason Martinez is a 53 y.o. male who presents for Diabetes. Patient comes for a follow-up visit. The patient tells me he had episode of chest discomfort associated with palpitations yesterday. Episode occurred at rest. He does not have exertional chest pain, no shortness of breath, he is asymptomatic during his visit. The patient tells me that he drinks about 4 cups of coffee a day. He denies any dysphagia, no vomiting, no cough or wheezing, he denies theuse of cocaine or any illicit drugs. He complains of occasional right lower extremity pain, paresthesias. He tells me the right leg is sometimes swollen. The patient is morbidly obese and he has bilateral lower extremity edema that is mild. He feels his right shoe is tighter than the left. He has been using Eliquis since October of last year after he developed a DVT during a prolonged hospitalization. He is using the Eliquis regularly. The patient tells me the right leg paresthesias are a chronic problem for him. He was diagnosed with neuropathy in the past. He used to be prescribed gabapentin and would like a new prescription for gabapentin. He also requested Tylenol for chronic right knee pain. We discussed the favorable results of his recent BMP. He has stage III CKD and creatinine is improving. He recently saw renal. His blood sugar is well- controlled on diet alone. Review of Systems Constitutional: Negative for chills, fatigue and fever. HENT: Negative for sore throat. Respiratory: Negative for cough, chest tightness and shortness of breath. Cardiovascular: Positive for palpitations and leg swelling. See HPI Gastrointestinal: Negative for abdominal pain and blood in stool. Visit Vitals BP (!) 140/87 (BP Location: Left arm, Patient Position: Sitting, BP Cuff Size: Large adult) Pulse (!) 117 Temp 96 ??F (35.6 ??C) (Temporal) Resp 21 Ht 5' 8 (1.727 m) Wt 286 lb (130 kg) SpO2 98% BMI 43.49 kg/m?? Smoking Status Former BSA 2.5 m?? Repeat heart rate was 103 Objective Physical Exam Constitutional: Appearance: Normal appearance. He is obese. Cardiovascular: Rate and Rhythm: Regular rhythm. Tachycardia present. Heart sounds: No murmur heard. Pulmonary: Effort: Pulmonary effort is normal. No respiratory distress. Breath sounds: No wheezing, rhonchi or rales. Abdominal: Palpations: Abdomen is soft. Tenderness: There is no abdominal tenderness. Musculoskeletal: Comments: 1+ bilateral pretibial edema Neurological: Mental Status: He is alert. Latest Reference Range & Units 04/06/24 09:27 Glucose Blood, POC 60 - 200 mg/dL 108 Hemoglobin A1c 4.0 - 6.0 % 5.8 ECG 12-LEAD QC Media Lot # [id number] Rpt: View report in Results Review for more information Assessment/Plan Diagnoses and all orders for this visit: Chest pain, unspecified type Comments: Noncardiac. I suspect related to heartburn related since he has heavy coffee intake. EKG today showed sinus tachycardia. I recommended to cut back coffee consumption. I recommended trial of PPI. He is encouraged to call if symptoms persist. Orders: - ECG 12 lead Palpitations - ECG 12 lead Stage 3 chronic kidney disease, unspecified whether stage 3a or 3b CKD ([facility]) Comments: Creatinine is improving. Recent blood work done by renal showed improvement of the creatinine. Reminded to continue to avoid NSAIDs. I prescribed Tylenol to be used for the right leg pain. Right leg swelling Comments: I suspect this is secondary to obesity and venous insufficiency. I will repeat the ultrasound to make sure there is resolution of the DVT he had back in October. If there is a resolution on the ultrasound I will discontinue the Eliquis. I prescribed him acetaminophen for pain and refill the gabapentin he requested at a lower dose than he was using in the past because of his CKD. Orders: - Vascular US lower extremity venous duplex right; Future Right leg paresthesias - Vascular US lower extremity venous duplex right; Future - acetaminophen (Tylenol 8 Hour) 650 MG ER tablet; Take 1 tablet (650 mg) by mouth every 8 (eight) hours if needed for moderate pain. Do not crush, chew, or split. History of deep venous thrombosis (DVT) of distal vein of right lower extremity - Vascular US lower extremity venous duplex right; Future Vaccine refused by patient Comments: He refused any vaccination today. Type 2 diabetes mellitus with hyperglycemia, without long-term current use of insulin ([facility]) Comments: Diet controlled. Orders: - POCT Glucose - POCT HGB A1C Other orders - omeprazole OTC (PriLOSEC OTC) 20 MG EC tablet; Take 1 tablet (20 mg) by mouth before breakfast. Do not crush, chew, or split. - gabapentin (Neurontin) 100 MG capsule; Take 1 capsule (100 mg) by mouth 2 times daily. documented in this encounter Plan of Treatment Upcoming Encounters Date Type Department Care Team (Late st Contact Info) Description 04/27/2024 11:15 AM EDT Telemedicine [facility] MEDICINE [address] [place] [address] Haresh Recinos MD [address] [place] [address] 05/26/2024 2:30 PM EDT Office Visit [facility] ADULT DENTAL [address] [place] [address] Alejandro Aj DDS [address] [place] [address] 07/12/2024 2:00 PM EDT Office Visit [facility] ADULT DENTAL [address] [place] [address] Dorothy Mckeon documented as of this encounter Procedures Procedure Name Priority Date/Time Associated Diagnosis Comments ECG 12-LEAD Routine 04/06/2024 10:41 AM EST Chest pain, unspecified type Palpitations POCT GLYCATED HEMOGLOBIN, TOTAL Routine 04/06/2024 9:27 AM EST Type 2 diabetes mellitus with hyperglycemia, without long-term current use of insulin ([facility]) POCT GLUCOSE Routine 04/06/2024 9:27 AM EST Type 2 diabetes mellitus with hyperglycemia, without long-term current use of insulin ([facility]) documented in this encounter Results * ECG 12 lead (04/06/2024 10:41 AM EST) Narrative Name, MD Haresh - 04/06/2024 10:41 AM EST Sinus tachycardia. ??Heart rate of 103. ??No ST segment elevation or depression. Result Malini Recinos MD ECG ORDERABLES Final Result * POCT HGB A1C (04/06/2024 9:27 AM EST) Hemoglobin A1C 5.8 4.0 - 6.0 % QC Media Lot # [id number] Lot# Expiration Date 71,626 Blood 04/06/2024 9:27 AM EST Result Malini Recinos MD POINT OF CARE TEST ENTER/EDIT OR DERABLES Final Result * POCT Glucose (04/06/2024 9:27 AM EST) Glucose Blood, POC 108 60 - 200 mg/dL QC Media Lot # [id number] Lot# Expiration Date 53,025 Blood Capillary blood specimen / Unknown 04/06/2024 9:27 AM EST Result Malini Recinos MD POINT OF CARE TEST ENTER/EDIT OR DERABLES Final Result documented in this encounter Visit Diagnoses Diagnosis Chest pain, unspecified type- Primary Palpitations Stage 3 chronic kidney disease, unspecified whether stage 3a or 3b CKD ([facility]) Right leg swelling Right leg paresthesias Disturbance of skin sensation History of deep venous thrombosis (DVT) of distal vein of right lower extremity Vaccine refused by patient Type 2 diabetes mellitus with hyperglycemia, without long-term current use of insulin ([facility]) documented in this encounter Additional Health Concerns Assessment Noted Time PHQ-9 Depression Total Score: 16 023 9:35 AM EST documented as of this encounter Care Teams School Bus Attendant Relationship Specialty Start Date End Date Name, MD Haresh [address] [place] [address] PCP - General Family Medicine 09/08/18 Bruce Dumas FNP [address] [place] [address] Nurse Practitioner Family Medicine [facility] documented as of this encounter
--- OUTSIDE RECORDS SUMMARY | 2024-04-25 11:11 | XMS_ITS | Encounter Summary ---
Author Organization [employer] Address [address] [facility] 7t [place] [address] Care Team Providers Care Plant Worker Name Role Phone Name, Haresh ELLIOTT Primary Care Provider [phone] Bruce Dumas Unavailable Unavailable Reason for Visit * Reason Onset Date Comments Hospital Follow-up 12/09/2023 Encounter Details Date Type Department Care Team ([facility] st Contact Info) Description 12/09/2023 Telephone [facility] MEDICINE [address] [place] [address] Name, MD Haresh [address] [place] [address] Hospital Follow-up Social History Tobacco Use Types [...] from pt requesting a HDF appt. Hospital: [facility] Date of admission: States about 5 months ago Discharge date: 12/08/23 Diagnosed: mild stroke documented in this encounter Plan of Treatment Upcoming Encounters Date Type Department Care Team (Late st Contact Info) Description 04/27/2024 11:15 AM EDT Telemedicine [facility] MEDICINE [address] [place] [address] Name, MD Haresh [address] [place] [address] 05/26/2024 2:30 PM EDT Office Visit [facility] ADULT DENTAL [address] [place] [address] Alejandro Aj DDS [address] [place] [address] 07/12/2024 2:00 PM EDT Office Visit [facility] ADULT DENTAL [address] [place] [address] Dorothy Mckeon documented as of this encounter Visit Diagnoses Not on filedocumented in this encounter Additional Health Concerns Assessment Noted Time PHQ-9 Depression Total Score: 16 023 9:35 AM EST documented as of this encounter Care Teams Plant Worker Relationship Specialty Start Date End Date Name, MD Haresh [address] [place] [address] PCP - General Family Medicine 09/08/18 Bruce Dumas FNP [address] [place] [address] Nurse Practitioner Family Medicine 01/11/23 [place] [facility] 12/07/23 documented as of this encounter
--- OUTSIDE RECORDS SUMMARY | 2024-04-25 11:11 | XMS_ITS | Encounter Summary ---
Author Organization [employer] Address [address] [place] [address] 7t [place] [address] Care Team Providers Care Flight Physician Name Role Phone Name, Haresh ELLIOTT Primary Care Provider [phone] Bruce Dumas Unavailable Unavailable Reason for Visit * Reason Comments Med Refill Encounter Details Date Type Department Care Team (Late st Contact Info) Description 02/15/[address] [facility] [address] [place] [address] Tracie Henry DO [address] [place] [address] Social History Tobacco Use Types Packs/Day Years [...] with others, in a hotel, in a fci, living outside on the street, on a [...] Info) Description 04/27/2024 11:15 AM EDT Telemedicine [facility] [address] [place] [phone] Name, MD Haresh [address] [place] [address] 05/26/2024 2:30 PM EDT Office Visit [facility] ADULT DENTAL [address] [place] [address] Alejandro Aj DDS [address] [place] [address] 07/12/2024 2:00 PM EDT Office Visit [facility] [address] [place] [address] Dorothy Mckeon documented as of this encounter Visit Diagnoses Not on filedocumented in this encounter Additional Health Concerns Assessment Noted Time PHQ-9 Depression Total Score: 16 023 9:35 AM EST documented as of this encounter Care Teams Flight Physician Relationship Specialty Start Date End Date Haresh Recinos MD [address] [place] [phone] PCP - General Family Medicine 09/08/18 Bruce Dumas FNP [address] [place] [address]. RICKY Nation [address] Nurse Practitioner Family Medicine 01/11/23 [facility] 12/07/23 documented as of this encounter
--- OUTSIDE RECORDS SUMMARY | 2024-04-25 11:11 | XMS_ITS | Encounter Summary ---
Author Organization [employer] Address [address] [place] [address] 7t [place] [address] Care Team Providers Care Funeral Arrangement Director Name Role Phone Name, Haresh ELLIOTT Primary Care Provider [phone] Bruce Dumas Unavailable Unavailable Reason for Visit * Reason Onset Date Comments Medication Question 12/22/2023 Encounter Details Date Type Department Care Team ([facility] st Contact Info) Description 12/22/[address] [facility] [address] [place] [address] Name, MD Haresh [address] [place] [address] Medication Question Social History Tobacco Use Types [...] 5mg If any questions contact pt at [phone] documented in this encounter Plan of Treatment Upcoming Encounters Date Type Department Care Team (Late st Contact Info) Description 04/27/2024 11:15 AM EDT Telemedicine [facility] [address] [place] [address] Name, MD Haresh [address] [place] [address] 05/26/2024 2:30 PM EDT Office Visit [facility] ADULT DENTAL [address] [place], [place] [phone] Alejandro Aj DDS [address] [place] [address] 07/12/2024 2:00 PM EDT Office Visit [facility] ADULT DENTAL [address] [place] [address] Dorothy Mckeon documented as of this encounter Visit Diagnoses Not on filedocumented in this encounter Additional Health Concerns Assessment Noted Time PHQ-9 Depression Total Score: 16 023 9:35 AM EST documented as of this encounter Care Teams Funeral Arrangement Director Relationship Specialty Start Date End Date Name, MD Haresh [address] [place] [address] PCP - General Family Medicine 09/08/18 Bruce Dumas FNP [address] [place] [address] Nurse Practitioner Family Medicine 01/11/23 [place] [facility] 12/07/23 documented as of this encounter
--- OUTSIDE RECORDS SUMMARY | 2024-04-25 11:12 | XMS_ITS | Clinical Summary ---
Author Organization [employer] Address [address] [place] [address] 7t [place] [address] Care Team Providers Care Archival Records Clerk Name Role Phone Name, Haresh ELLIOTT Primary Care Provider Bruce Dumas Unavailable Unavailable Allergies Active Allergy [...] hyperglycemia, without long-term current use of insulin ([facility]) Use as directed 100 each 3 023 Active Blood Glucose Monitoring Suppl (FreeStyle glucose monitoring) kitIndications: Type 2 diabetes mellitus with hyperglycemia, without long-term current use of insulin ([facility]) Use as directed 1 each 023 Active albuterol 108 (90 Base) MCG/ACT inhalerIndicati ons:Asthma, unspecified asthma severity, unspecified whether complicated, unspecified whether persistent INHALE 2 PUFFS BY MOUTH FOUR TIMES DAILY NEEDED 8.5 g 1 023 Active Lancets (OneTouch Delica Plus [id number]) miscIndications :Type 2 diabetes mellitus with hyperglycemia, without long-term current use of insulin ([facility]) TEST BLOOD SUGAR TWICE DAILY 100 each [...] TABLET BY MOUTH TWICE DAILY 60 tablet Active sertraline (Zoloft) 25 MG tablet Take 0.5 tablets (12.5 mg) by mouth Once per day. 15 tablet Active traZODone (Desyrel) 50 MG tablet Take 0.5 tablets (25 mg) by mouth at bedtime. 15 tablet Active omeprazole OTC (PriLOSEC OTC) 20 MG EC tablet Take 1 tablet (20 mg) by mouth before breakfast. Do not crush, chew, or split. 30 tablet 11 025 2025 Active gabapentin (Neurontin) 100 MG capsule Take 1 capsule (100 mg) by mouth 2 times daily. 60 capsule 3 025 2025 Active acetaminophen (Tylenol 8 Hour) 650 MG ER tabletIndicatio ns:Right leg paresthesias Take 1 tablet (650 mg) by mouth every 8 (eight) hours if needed for moderate pain. Do not crush, chew, or split. 90 tablet 3 025 2024 Active chlorhexidine (Peridex) 0.12 % solution Use 15 mL in the mouth or throat if needed (for mouthwash 15 ml for 30 seconds, swish and spit) for up to 14 days. 473 mL 025 2024 Active acetaminophen (Tylenol 8 Hour) 650 MG ER tabletIndicatio ns:Chronic pain of left knee TAKE 1 TABLET BY MOUTH EVERY 6 HOURS NEEDED FOR PAIN OR FEVER. 60 tablet 1 023 2024 Discontinued(R eorder (will not trigger notification [...] on cardiology d/t consult during hospitalization at [facility] and no clear plan was indicated. At this time holding off on vascular d/t no record of duplex ultrasound from [facility], requested records today, depending on results will [...] alcohol, no tobacco. Lives in residential program ([facility]) with daily groups but no prescriber. Not working currently, has applied for disability. Pt reports some improved mood but hallucinations are not controlled, and ?mild paranoia/delusional thinking. Will add Abilify 5 mg once daily. Continue Prozac 40 mg daily, Trazodone 150 mg at bedtime. He will continue with supportive living situation, with therapist, and with supports from [facility] clinician and others in [place] program. F/u [...] alcohol, no tobacco. Lives in residential program ([facility]) with daily groups but no prescriber. Not working currently, has applied for disability. Pt reports possible early improvement with addition of Prozac, will now increase to Prozac 40 mg daily. Not sleeping as well, will increase to Trazodone 150 mg at bedtime. He will continue with supportive living situation, and with supports from [facility] clinician and others in [facility] program. F/u [...] alcohol, no tobacco. Lives in residential program ([facility]) with daily groups but no prescriber. Not working currently, has applied for disability. At this time he will continue Trazodone 100 mg at bedtime. Will start Prozac 20 mg daily. Explained that he would not notice improvement right away, would likely be 3-4 weeks before gradual improvement noted, so be patient. He will continue with supportive living situation, and with supports from [facility] clinician and others in [facility] program. F/u [...] Health Integration Plan Internal Follow up with [facility]. We contacted [facility], for intake for [...] 05/19/2023 Snoring 06/16/2022 05/19/2023 Syncope, vasovagal 06/16/2022 Nausea 01/10/2022 05/19/2023 Encounters Date Type Department Care Team Description 04/10/2024 3:00 PM EST Office Visit [facility] ADULT DENTAL [address] [place] [address] Linda Dorothy Dental calculus (Primary Dx); Dental plaque; Periodontal disease; Encounter for dental examination 04/06/2024 9:00 AM EST Office Visit [facility] [address] [place] [address] Haresh Recinos MD Chest pain, unspecified type (Primary Dx); Palpitations; Stage 3 chronic kidney disease, unspecified whether stage 3a or 3b CKD ([facility]); Right leg swelling; Right leg paresthesias; History of deep venous thrombosis (DVT) of distal vein of right lower extremity; Vaccine refused by patient; Type 2 diabetes mellitus with hyperglycemia, without long-term current use of insulin ([facility]) 04/06/2024 Travel 04/04/2024 Telephone [facility] [address] [place] [address] Haresh Recinos MD chartprep 03/24/2024 Refill [facility] [address] [place] [address] Haresh Recinos MD 03/21/2024 Telephone [facility] [address] [place] [address] Haresh Recinos MD Appointment Request 03/15/2024 Telephone [facility] [address] [place] [address] Haresh Recinos MD Appointment Request 03/15/2024 Telephone [facility] [address] [place] [address] Haresh Recinos MD No Show 02/22/2024 Refill [facility] [address] [place] [address] Hraesh Recinos MD 02/21/2024 Refill [facility] [address] [place] [address] Haresh Recinos MD 02/10/2024 Telephone [facility] [address] [place] [address] Haresh Recinos MD from Last 3 Months Immunizations Name Administration [...] Pressure 132/100 04/10/2024 2:57 PM EST Pulse 117 04/06/2024 9:25 AM EST Temperature 35.6 ??C (96 ??F) 04/06/2024 9:25 AM EST Respiratory Rate 21 04/06/2024 9:25 AM EST Oxygen Saturation 98% 04/06/2024 9:25 AM EST Inhaled Oxygen Concentration - - Weight 130 kg (286 lb) 04/06/2024 9:25 AM EST Height 172.7 cm (5' 8 ) 04/06/2024 9:25 AM EST Body Mass Index 43.49 04/06/2024 9:25 AM EST Plan of Treatment Upcoming Encounters Date Type Department Care Team (Late st Contact Info) Description 04/27/2024 11:15 AM EDT Telemedicine [facility] [address] [place] [address] Name, MD Haresh [address] [place] [address] 05/26/2024 2:30 PM EDT Office Visit [facility] ADULT DENTAL [address] [place] [address] Alejandro Aj DDS [address] [place] [address] 07/12/2024 2:00 PM EDT Office Visit [facility] ADULT [facility] [address] [place] [address] Dorothy Mckeon Health Maintenance Due Date Last Done Comments CT Colonography 1971 Colonoscopy 1971 Colorectal Cancer Screening 1971 FIT DNA/Cologuard 1971 FIT 1971 FOBT 1971 Sigmoidoscopy 1971 Diabetes: Foot Exam 05/31/1981 Eye Exam 05/31/1981 Family Planning (PISQ) 05/31/1986 DTaP/Tdap/Td Vaccines (1 - Tdap) 05/31/1990 Pneumococcal Vaccine: 50+ Years (1 of 2 - PCV) 05/31/1990 Hepatitis B Vaccines (2 of 3 - 19+ 3-dose series) 09/23/1999 08/26/1999 Zoster Vaccines (1 of 2) 05/31/2021 Depression Monitoring (PHQ-9) 07/23/2023 01/21/2023, 01/21/2023 COVID-19 Vaccine (3 - 2023- season) 2023 10/16/2020, 08/07/2020 Influenza Vaccine (#1) 2023 Depression Screening 01/22/2024 01/21/2023, 01/22/20 Diabetes: Urine Protein Screening 05/18/2024 05/19/2023 Lipid Panel 05/18/2024 05/19/2023 Diabetes: Hemoglobin A1C 10/04/2024 025, 12/24/2023, 12/21/2022, Additional history exists Dental Oral Exam 10/12/2024 04/10/2024, , 12/05/2014 Dental Prophylaxis 10/12/2024 04/10/2024 SDOH Screening 12/08/2024 12/09/2023 Alcohol/Substance Use Screening 12/27/2024 12/28/2023 Tobacco Screening 04/10/2025 04/10/2024 Dental X-Ray: Bitewings 04/11/2025 04/11/19, 11/06/2015, 12/05/2014 Dental X-Ray: Full Mouth 04/12/2027 04/10/2024, 11/09 RSV Patients and Patients Aged 60 years or older (1 - 1-dose 75+ series) 05/31/2046 HIV Screening Completed 11/27/2021, 04/17/2021 Hepatitis C Screening Completed 11/27/2021, 022 HIB Vaccines Aged Out No longer eligi ble based on patient's age to complete this topic HPV Vaccines Aged Out No longer eligi ble based on patient's age to complete this topic Hepatitis A Vaccines Aged Out No long er eligible based on patient's age to complete [...] Procedure Name Priority Date/Time Associated Diagnosis Comments COMPREHENSIVE PERIODONTAL EVALUATION - NEW OR ESTABLISHED PATIENT Routine 04/10/2024 3:00 PM EST Dental calculus Dental plaque Periodontal disease Encounter for dental examination PERIODIC ORAL EVALUATION - ESTABLISHED PATIENT Routine 04/10/2024 3:00 PM EST Dental calculus Dental plaque Periodontal disease Encounter for dental examination FULL MOUTH DEBRIDEMENT TO ENABLE A COMPREHENSIVE ORAL EVALUATION AND DIAGNOSIS ON A SUBSEQUENT VISIT Routine 04/10/2024 3:00 PM EST Dental calculus Dental plaque Periodontal disease ORAL HYGIENE INSTRUCTIONS Routine 04/10/2024 3:00 PM EST Dental calculus Dental plaque Periodontal disease INTRAORAL - COMPLETE SERIES OF RADIOGRAPHIC IMAGES Routine 04/10/2024 3:00 PM EST PROPHYLAXIS - ADULT Routine 04/10/2024 3 :00 PM EST Dental calculus Dental plaque Periodontal disease CASE PRESENTATION, DETAILED AND EXTENSIVE TREATMENT PLANNING Routine 04/10/2024 3:00 PM EST ECG 12-LEAD Routine 04/06/2024 10:41 AM EST Chest pain, unspecified type Palpitations POCT GLYCATED HEMOGLOBIN, TOTAL Routine 04/06/2024 9:27 AM EST Type 2 diabetes mellitus with hyperglycemia, without long-term current use of insulin (CMS/HCC) POCT GLUCOSE Routine 04/06/2024 9:27 AM EST Type 2 diabetes mellitus with hyperglycemia, without long-term current use of insulin (CMS/HCC) LIPID PANEL, STANDARD Routine 05/19/2023 12:02 PM [...] GENERATION W/RFL Routine 11/27/2021 11:22 AM EDT from Last 3 Months or Most Recently Relevant to Health Maintenance Results * ECG 12 lead (04/06/2024 10:41 AM EST) Narrative Name, MD Haresh - 04/06/2024 10:41 AM EST Sinus tachycardia. ??Heart rate of 103. ??No ST segment elevation or depression. us Haresh Recinos MD ECG ORDERABLES Final Result * POCT HGB A1C (04/06/2024 9:27 AM EST) Hemoglobin A1C 5.8 4.0 - 6.0 % QC Media Lot # [id number] Lot# Expiration Date 71,[id number] Blood 04/06/2024 9:27 AM EST us Haresh Recinos MD POINT OF CARE TEST ENTER/EDIT OR DERABLES Final Result * POCT Glucose (04/06/2024 9:27 AM EST) Glucose Blood, POC 108 60 - 200 mg/dL QC Media Lot # [id number] Lot# Expiration Date 53,025 Blood Capillary blood specimen / Unknown 04/06/2024 9:27 AM EST us Haresh Recinos MD POINT OF CARE TEST ENTER/EDIT OR DERABLES Final Result * (ABNORMAL) Lipid Panel, Standard (05/19/2023 12:02 PM EDT) Triglycerides 379(H) <150 mg/dL [facility] Comment:Desirable Triglyceri de: less than 150 mg/dLBorderline High Triglyceride 150-199 mg/dLHigh Triglyceride: 200-499 mg/dLVery High Triglyceride: greater than or equal to 5OO mg/dL Cholesterol 217(H) <200 mg/dL [facility] Comment:Desirable Cholestero l: less than 200 mg/dLBorderline High Cholesterol: 200-239 mg/dLHigh Cholesterol: greater than 239 mg/dL LDL Cholesterol Calculated 114(H) <100 mg/dL [facility] Comment:Desirable LDL: less than 100 mg/dLNear Optimal/Above Optimal LDL: 110- 129 mg/dLBorderline High LDL: 130-159 mg/dLHigh LDL: 160-189 mg/dLVery High LDL: greater than or equal to 190 mg/dL HDL Cholesterol 28(L) >40 mg/dL [facility] Comment:Desirable HDL: great er than 40 mg/dL Note: This HDL assay may give artificially low results in patients with liver disease. Blood Venous blood specimen / Unknown 05/19/2023 12:02 PM EDT 05/19/2023 1:38 PM EDT us Haresh Recinos MD LAB BLOOD ORDERABLES Final Resul t Performing Organization Address [facility] de Phone Number [facility] [address] [place] [phone] * Albumin, Random Urine W/Creatinine (05/19/2023 12:00 PM EDT) Creatinine, Urine 348.84 mg/dL [facility] Microalbumin Urine 55.0 mg/L [facility] Microalbum Creatinine Ratio Ur 15.7 <30 ug/mg cr [facility] Comment:Albumin/Creatinine R atio Reference Ranges: Normal: < 30 ug/mg creatinine Microalbuminuria: 30 - 300 ug/mg creatinineClinical Albuminuria: > 300 ug/mg creatinine Urine (Urine, Random) 05/19/2023 12:00 PM EDT 05/19/2023 1:35 PM EDT us Haresh Recinos MD LAB URINE ORDERABLES Final Resul t Performing Organization Address [facility] de Phone Number [facility] [address] [place] [phone] * HEPATITIS C AB W/REFL TO [...] a test for HCV RNA (test code 99252) is suggested. ?? For additional information please refer to http://[employer]/faq/JSK18u3 (This link is being provided for informational/ educational purposes only.) ?? 11/27/2021 11:2 2 AM EDT us Montse Duffy MD HISTORICAL/NON ORDERABLE LAB S Final Result CONVERTED LEGACY LABS * HIV 1/2 ANTIGEN/ANTIBODY,FOURTH GENERATION W/RFL (11/27/2021 11:22 AM EDT) Pathologist [facility] HIV-1/2 ANTIGEN AND ANTIBODIES, 4TH GENERATION W/ [...] ? For additional information please refer to http://[employer]/faq/IMB443 (This link is being provided for informational/ educational purposes only.) ? The performance of this assay has not been clinically validated in patients less than 2 years old. ?? 11/27/2021 11:2 2 AM EDT us Montse Duffy MD LAB BLOOD ORDERABLES Final R esult CONVERTED LEGACY LABS from Last 3 Months or Most Recently Relevant to Health Maintenance Insurance [address] [place] [id number] [facility] [address] [place] [address] DENTAL - [facility] Care Teams Archival Records Clerk Relationship Specialty Start Date End Date Name, MD Haresh [address] [place] [address] PCP - General Family Medicine 09/08/18 Bruce Dumas FNP [address] [place] [address] RICKY Nation [address] Nurse Practitioner Family Medicine 01/11/23 [facility] 12/07/23
== END 2024-04-25 09:55 | disposition home or self-care (01) ==
LOC: HO.US 09:54
PROVIDERS: PCP Internal Medicine Geriatric Medicine; Visit Provider Internal Medicine Geriatric Medicine
DX: R60.0 Localized edema (principal); Z87.718 Personal history of other specified (corrected) congenital malformations of genitourinary system
CPT/HCPCS: 93971

== ENCOUNTER → 2024-04-25 10:20 | Outpatient (BNV) | payer OTHER, SELFPAY | PROVIDERS: PCP Internal Medicine Geriatric Medicine; Visit Provider Radiology Diagnostic Radiology | DX: R22.41 Localized swelling, mass and lump, right lower limb (principal) | CPT/HCPCS: 93971 ==

== ENCOUNTER 2024-06-20 13:16 | Outpatient (REF) | payer OTHER, SELFPAY ==
[2024-06-20 13:44] LABS: Hematocrit 46.9 % (42.0-52.0); Hemoglobin 15.2 g/dl (14.0-18.0); Mean Corpuscular HGB Conc 32.4 g/dl (31.0-36.0); Mean Corpuscular Hemoglobin 28.5 pg (27.0-33.0); Mean Corpuscular Volume 87.8 fL (80.0-98.0); Mean Platelet Volume 8.4 fL (9.4-12.4); Platelet Count 351 X10*3/uL (160-400); Red Blood Count 5.34 X10*6/uL (4.60-5.80); Red Cell Distribution Width 13.7 % (11.0-16.0); White Blood Count 8.6 X10*3/uL (4.8-10.8)
[2024-06-20 14:06] LABS: Appearance Urine Clear; Color Urine Dark Yellow; Glucose Urine UA Negative (Negative); Leukocyte Esterase Urine Negative (Negative); Nitrite Urine Negative (Negative); Specific Gravity - Urine >= 1.030 (1.005-1.025); UMIC TRIGGER UA YES; Urine Blood Negative (Negative); Urine Ketones Trace mg/dL (Negative); Urine Protein 100 (2+) mg/dL (Neg-Trace)
--- OUTSIDE RECORDS SUMMARY | 2024-06-20 14:24 | XMS_ITS | Encounter Summary ---
Author Organization [employer] Address [address] [place] [address] 7 [place] [address] Care Team Providers Care Consumer Lender Name Role Phone Name, Haresh ELLIOTT Primary Care Provider [phone] Bruce Dumas Unavailable Unavailable Reason for Visit * Reason Onset Date Comments Appointment Request 03/15/2024 Encounter Details Date Type Department Care Team ([facility] st Contact Info) Description 03/15/2024 Telephone [facility] [address] [place], [place] [phone] Name, MD Haresh [address] [place] [address] Appointment Request Social History Tobacco Use Types [...] on a recall list. Contact pt at [phone] documented in this encounter Plan of Treatment Upcoming Encounters Date Type Department Care Team (Late st Contact Info) Description 07/10/2024 1:30 PM EDT Office Visit [facility] ADULT [facility] [address] [place] [address] Ritika Cooper DDS [address] [place] [address] 07/12/2024 2:00 PM EDT Office Visit [facility] [address] [place] [address] Dorothy Mckeon documented as of this encounter Visit Diagnoses Not on filedocumented in this encounter Additional Health Concerns Assessment Noted Time PHQ-9 Depression Total Score: 16 01/21/ 023 9:35 AM EST documented as of this encounter Care Teams Consumer Lender Relationship Specialty Start Date End Date Name, MD Haresh [address] [place] [address] PCP - General Family Medicine 09/08/18 Bruce Dumas FNP [address] [place] [address] Nurse Practitioner Family Medicine 01/11/23 [facility] 12/07/23 documented as of this encounter
--- OUTSIDE RECORDS SUMMARY | 2024-06-20 14:24 | XMS_ITS | Encounter Summary ---
Author Organization [employer] Address [address] [place] [address] 7 [place] [address] Care Team Providers Care Damage Cutter Name Role Phone Name, Haresh ELLIOTT Primary Care Provider [phone] Bruce Dumas Unavailable Unavailable Reason for Visit * Reason Onset Date Comments FYI 12/09/2023 Encounter Details Date Type Department Care Team ([facility] st Contact Info) Description 12/09/2023 Telephone [facility] [address] [place], [place] [phone] Name, MD Haresh [address] [place] [address] FYI Social History Tobacco Use Types Packs/Day [...] Thad Nieto - 12/09/2023 4:16 PM EDT Irving from [facility] to inform pcp they have started PT services with pt. documented in this encounter Plan of Treatment Upcoming Encounters Date Type Department Care Team (Late st Contact Info) Description 07/10/2024 1:30 PM EDT Office Visit [facility] AD[facility] [address] [place] [address] Tao-Sebsatian, Ritika, DDS [address] [place], [place] [phone] 07/12/2024 2:00 PM EDT Office Visit [facility] [address] [place] [address] Dorothy Mckeon documented as of this encounter Visit Diagnoses Not on filedocumented in this encounter Additional Health Concerns Assessment Noted Time PHQ-9 Depression Total Score: 16 023 9:35 AM EST documented as of this encounter Care Teams Damage Cutter Relationship Specialty Start Date End Date Name, MD Haresh [address] [place] [address] PCP - General Family Medicine 09/08/18 Bruec Dumas FNP [address] [place] [address] Nurse Practitioner Family Medicine 01/11/23 [facility] 12/07/23 documented as of this encounter
--- OUTSIDE RECORDS SUMMARY | 2024-06-20 14:24 | XMS_ITS | Encounter Summary ---
Author Organization [employer] Address [address] [place] [address] 7 [place] [address] Care Team Providers Care Woods Superintendent Name Role Phone Name, Haresh ELLIOTT Primary Care Provider [phone] Bruce Dumas Unavailable Unavailable Reason for Visit * Reason Onset Date Comments Medication Question 12/22/2023 Encounter Details Date Type Department Care Team ([facility] Contact Info) Description 12/22/2023 Telephone [facility] [address] [place], [place] [phone] Name, MD Haresh [address] [place] [address] Medication Question Social History Tobacco Use Types [...] 5mg If any questions contact pt at [phone] documented in this encounter Plan of Treatment Upcoming Encounters Date Type Department Care Team (Late st Contact Info) Description 07/10/2024 1:30 PM EDT Office Visit [facility] ADULT DENTAL [address] [place] [address] Ritika Cooper, DDS [address] [place] [address] 07/12/2024 2:00 PM EDT Office Visit [facility] [address] [facility] [place] [address] Dorothy Mckeon documented as of this encounter Visit Diagnoses Not on filedocumented in this encounter Additional Health Concerns Assessment Noted Time PHQ-9 Depression Total Score: 16 023 9:35 AM EST documented as of this encounter Care Teams Woods Superintendent Relationship Specialty Start Date End Date Name, MD Haresh [address] [place] [address] PCP - General Family Medicine 09/08/18 Bruce Dumas FNP [address] [place] [address] Nurse Practitioner Family Medicine 01/11/23 Chapis COOK 12/07/23 documented as of this encounter
--- OUTSIDE RECORDS SUMMARY | 2024-06-20 14:24 | XMS_ITS | Encounter Summary ---
Author Organization [employer] Address [address] [place] [address] 7 [place] [address] Care Team Providers Care Account Executive Healthcare Name Role Phone Name, Haresh ELLIOTT Primary Care Provider [phone] Bruce Dumas Unavailable Unavailable Reason for Visit * Reason Onset Date Comments No Show 10/06/2022 Encounter Details Date Type Department Care Team ([facility] st Contact Info) Description 10/06/2022 Telephone [facility] [address] [place], [place] [phone] Name, MD Haresh [address] [place] [address] No Show Social History Tobacco Use Types [...] accepted this outcome Please contact pt at [phone] documented in this encounter Plan of Treatment Upcoming Encounters Date Type Department Care Team (Late st Contact Info) Description 07/10/2024 1:30 PM EDT Office Visit [facility] ADULT DENTAL [address] [place] [address] Ritika Cooper, DDS [address] [place] [address] 07/12/2024 2:00 PM EDT Office Visit [facility] ADULT DENTAL [address] [place] [address] Dorothy Mckeon documented as of this encounter Visit Diagnoses Not on filedocumented in this encounter Additional Health Concerns Assessment Noted Time PHQ-9 Depression Total Score: 17 023 4:02 PM EDT documented as of this encounter Care Teams Account Executive Healthcare Relationship Specialty Start Date End Date Name, MD Haresh [address] [place] [address] PCP - General Family Medicine 09/08/18 Bruce Dumas FNP [address] [place] [address] Nurse Practitioner Family Medicine 01/11/23 Chapis VNA 12/07/23 documented as of this encounter
--- OUTSIDE RECORDS SUMMARY | 2024-06-20 14:24 | XMS_ITS | Encounter Summary ---
Author Organization [employer] Address [address] [place] [address] 7t [place] [address] Care Team Providers Care Training Development Director Name Role Phone Name, Haresh ELLIOTT Primary Care Provider Bruce Dumas Unavailable Unavailable Reason for Visit * Reason Comments Med Refill Encounter Details Date Type Department Care Team ([facility] st Contact Info) Description 02/15/2023 Refill [facility] MEDICINE [address] [place], [place] [phone] Tracie Henry DO [address] [place] [address] Social History Tobacco Use Types Packs/Day Years [...] Description 07/10/2024 1:30 PM EDT Office Visit [facility] ADULT DENTAL [address] [place] [address] Ritika Cooper DDS [address] [place] [address] 07/12/2024 2:00 PM EDT Office Visit [facility] ADULT DENTAL [address] [place] [address] Dorothy Mckeon documented as of this encounter Visit Diagnoses Not on filedocumented in this encounter Additional Health Concerns Assessment Noted Time PHQ-9 Depression Total Score: 16 023 9:35 AM EST documented as of this encounter Care Teams Training Development Director Relationship Specialty Start Date End Date Name, MD Haresh [address] [place] [address] PCP - General Family Medicine 09/08/18 Bruce Dumas FNP [address] [place] [address] Nurse Practitioner Family Medicine 01/11/23 [place] [facility] 12/07/23 documented as of this encounter
--- OUTSIDE RECORDS SUMMARY | 2024-06-20 14:24 | XMS_ITS | Clinical Summary ---
Author Organization [employer] Address [address] [place] [address] 7t [place] [address] Care Team Providers Care Email Production Consultant Name Role Phone Name, Haresh ELLIOTT Primary Care Provider [phone] Bruce Dumas Unavailable Unavailable Allergies Active Allergy Reactions Criticality Noted Date Comments Aspirin 03/21/2014 Other reaction(s): SWELLING, NAUSEA, VOMITING Other Reaction(s): SWELLING, NAUSEA, VOMITING Clonazepam 05/27/2018 Morphine 05/27/2018 Medications * This document contains information received from the source organization and may not represent a complete record from that organization. naloxone (Narcan) 4 mg/0.1 mL nasal spray Administer 0.1 mL into affected nostril(s). 11/19/19 22 Active Alcohol Swabs (Alcohol Prep) padsIndications :Type 2 diabetes mellitus with hyperglycemia, without long-term current use of insulin ([facility]) Use as directed 100 each 3 06/09/19 23 Active Blood Glucose Monitoring Suppl (FreeStyle glucose monitoring) kitIndications: Type 2 diabetes mellitus with hyperglycemia, without long-term current use of insulin ([facility]) Use as directed 1 each 06/09/19 23 Active albuterol 108 (90 Base) MCG/ACT inhalerIndicati ons:Asthma, unspecified asthma severity, unspecified whether complicated, unspecified whether persistent INHALE 2 PUFFS BY MOUTH FOUR TIMES DAILY NEEDED 8.5 g 1 09/02/19 23 Active Lancets (OneTouch Delica Plus Cqnonn24F) miscIndications :Type 2 diabetes mellitus with hyperglycemia, without long-term current use of insulin ([facility]) TEST BLOOD SUGAR TWICE DAILY 100 each 11 09/08/19 23 Active lidocaine (Lidoderm) 5 % patchIndication s:Chronic bilateral low back pain without sciatica APPLY 1 PATCH TOPICALLY TO SKIN, LEAVE ON FOR 12 HOURS AND OFF FOR 12 HOURS DIRECTED 30 patch 4 09/29/19 23 Active polyethylene glycol, PEG, 3350 (MiraLax) 17 GM/SCOOP powderIndicatio ns:Constipation , unspecified constipation type 17g per package directions once daily as needed for constipation 238 g 10/23/19 23 Active ARIPiprazole (Abilify) 5 MG tablet Take 0.5 tablets by mouth Once per day. Active sertraline (Zoloft) 25 MG tablet Take 0.5 tablets (12.5 mg) by mouth Once per day. 15 tablet 03/24/19 25 Active traZODone (Desyrel) 50 MG tablet Take 0.5 tablets (25 mg) by mouth at bedtime. 15 tablet 03/24/19 25 Active omeprazole OTC (PriLOSEC OTC) 20 MG EC tablet Take 1 tablet (20 mg) by mouth before breakfast. Do not crush, chew, or split. 30 tablet 11 04/06/19 25 2025 Active gabapentin (Neurontin) 100 MG capsule Take 1 capsule (100 mg) by mouth 2 times daily. 60 capsule 3 04/06/19 25 2025 Active acetaminophen (Tylenol 8 Hour) 650 MG ER tabletIndicatio ns:Periodontal disease,History of tooth extraction, unspecified edentulism class Take 1 tablet (650 mg) by mouth every 8 (eight) hours if needed for mild pain. Do not crush, chew, or split. 30 tablet 2 05/27/19 25 Active acetaminophen (Tylenol 8 Hour) 650 MG ER tabletIndicatio ns:Right leg paresthesias Take 1 tablet (650 mg) by mouth every 8 (eight) hours if needed for moderate pain. Do not crush, chew, or split. 90 tablet 3 04/06/19 25 2024 Discontinued clindamycin (Cleocin) 300 MG capsuleIndicati ons:Periodontal disease Take 1 capsule (300 mg) by mouth 4 times daily for 7 days. 28 capsule 05/27/19 25 2024 Active Problems Problem Noted Date Diagnosed Date Periodontal disease 05/26/2024 History of tooth extraction 05/26/2024 Acute DVT (deep venous thrombosis) 12/27/2023 CHITO [...] on cardiology d/t consult during hospitalization at [facility] and no clear plan was indicated. At this time holding off on vascular d/t no record of duplex ultrasound from [facility], requested records today, depending on results [...] alcohol, no tobacco. Lives in residential program ([facility]) with daily groups but no prescriber. Not working currently, has applied for disability. Pt reports some improved mood but hallucinations are not controlled, and ?mild paranoia/delusional thinking. Will add Abilify 5 mg once daily. Continue Prozac 40 mg daily, Trazodone 150 mg at bedtime. He will continue with supportive living situation, with therapist, and with supports from [facility] clinician and others in [facility] program. F/u [...] alcohol, no tobacco. Lives in residential program ([facility]) with daily groups but no prescriber. Not working currently, has applied for disability. Pt reports possible early improvement with addition of Prozac, will now increase to Prozac 40 mg daily. Not sleeping as well, will increase to Trazodone 150 mg at bedtime. He will continue with supportive living situation, and with supports from [facility] clinician and others in [facility] program. F/u [...] alcohol, no tobacco. Lives in residential program ([facility]) with daily groups but no prescriber. Not working currently, has applied for disability. At this time he will continue Trazodone 100 mg at bedtime. Will start Prozac 20 mg daily. Explained that he would not notice improvement right away, would likely be 3-4 weeks before gradual improvement noted, so be patient. He will continue with supportive living situation, and with supports from [facility] clinician and others in [facility] program. F/u [...] Health Integration Plan Internal Follow up with [facility]. We contacted [facility], for intake for [...] Encounters Date Type Department Care Team Description 06/20/2024 Orders Only GENERIC EXTERNAL DATA DEPARTMENT Provider, Generic External Data 05/26/2024 2:30 PM EDT Office Visit [facility] ADULT DENTAL 230 [place] [address] Alejandro Aj DDS Periodontal disease (Primary Dx); History of tooth extraction, unspecified edentulism class 04/27/2024 11:15 AM EDT Telemedicine [facility] MEDICINE [address] [place] [address] Haresh Recinos MD Deep vein thrombosis (DVT) of femoral vein of right lower extremity, unspecified chronicity ([facility]) (Primary Dx) 04/27/2024 Travel 04/25/2024 Orders Only [facility] [address] [place] [address] Haresh Recinos MD 04/10/2024 3:00 PM EST Office Visit [facility] ADULT DENTAL [address] [place] [address] Dorothy Mckeon Dental calculus (Primary Dx); Dental plaque; Periodontal disease; Encounter for dental examination 04/06/2024 9:00 AM EST Office Visit [facility] MED[facility] [address] [place] [address] Haresh Recinos MD Chest pain, unspecified type (Primary Dx); Palpitations; Stage 3 chronic kidney disease, unspecified whether stage 3a or 3b CKD (CMS/HCC); Right leg swelling; Right leg paresthesias; History of deep venous thrombosis (DVT) of distal vein of right lower extremity; Vaccine refused by patient; Type 2 diabetes mellitus with hyperglycemia, without long-term current use of insulin ([facility]) 04/06/2024 Travel 04/04/2024 Telephone [facility] [address] [place], [place] [phone] Haresh Recinos MD chartprep 03/24/2024 Refill [facility] [address] [place], [place] [phone] Haresh Recinos MD from Last 3 Months [...] Sign Reading Time Taken Comments Blood Pressure 136/76 05/26/2024 2:03 PM EDT Pulse 72 05/26/2024 2:03 PM EDT Temperature 35.6 ??C (96 ??F) 04/06/2024 9:25 [...] Description 07/10/2024 1:30 PM EDT Office Visit [facility] ADULT D[facility] [address] [place] [address] Aislinn-Ritika Sebastian, DDS [address] [place] [address] 07/12/2024 2:00 PM EDT Office Visit [facility] ADULT [facility] [address] [place] [address] Dorothy Mckeon Health Maintenance Due Date Last Done Comments CT Colonography 1971 Colonoscopy 1971 Colorectal Cancer Screening 1970 FIT DNA/Cologuard 1971 FIT 1971 FOBT 1971 Sigmoidoscopy 1971 Diabetes: Foot Exam 05/31/1981 Eye Exam 05/31/1981 DTaP/Tdap/Td Vaccines (1 - Tdap) 05/31/1990 Pneumococcal Vaccine: 50+ Years (1 of 2 - PCV) 05/31/1990 Hepatitis B Vaccines (2 of 3 - 19+ 3-dose series) 09/23/1999 08/26/1999 Zoster Vaccines (1 of 2) 05/31/2021 COVID-19 Vaccine (3 - 2023- season) 2023 10/16/2020, 08/07/2020 Influenza Vaccine (#1) 2023 Depression Screening 01/22/2024 01/21/2023, 01/22/20 Diabetes: Urine Protein Screening 05/18/2024 05/19/2023 Lipid Panel 05/18/2024 05/19/2023 Diabetes: Hemoglobin A1C 10/04/202404/06/ 025, 12/24/2023, 12/21/2022, Additional history exists Dental Oral Exam 10/12/2024 04/10/2024, , 12/05/2014 Dental Prophylaxis 10/12/2024 04/10/2024 SDOH Screening 12/08/2024 12/09/2023 Alcohol/Substance Use Screening 12/27/2024 12/28/2023 Dental X-Ray: Bitewings 04/11/2025 04/11/19 25, 11/06/2015, 12/05/2014 Tobacco Screening 05/26/2025 05/26/2024 Dental X-Ray: Full Mouth 04/12/2027 04/10/2024, 11/09 [...] Procedure Name Priority Date/Time Associated Diagnosis Comments CBC Routine 06/20/2024 1:31 PM EDT URINALYSIS, COMPLETE Routine 06/20/2024 1:30 PM EDT 11 EXTRACTION, ERUPTED TOOTH REQ REMOVAL OF BONE AND/OR SECTIONING OF TOOTH Routine 05/26/2024 2:30 PM EDT CASE PRESENTATION, DETAILED AND EXTENSIVE TREATMENT PLANNING Routine 05/26/2024 2:30 PM EDT 5 EXTRACTION, ERUPTED TOOTH OR EXPOSED ROOT (ELEVATION/FORCEPS REMOVAL) Routine 05/26/2024 2:30 PM EDT 4 EXTRACTION, ERUPTED TOOTH OR EXPOSED ROOT (ELEVATION/FORCEPS REMOVAL) Routine 05/26/2024 2:30 PM EDT 2 EXTRACTION, ERUPTED TOOTH OR EXPOSED ROOT (ELEVATION/FORCEPS REMOVAL) Routine 05/26/2024 2:30 PM EDT US VENOUS DUPLEX LE RT Routine 10:56 AM EDT COMPREHENSIVE PERIODONTAL EVALUATION - NEW OR ESTABLISHED [...] to Health Maintenance Results * (ABNORMAL) CBC (06/20/2024 1:31 PM EDT) White Blood Count 8.6 4.8 - 10.8 X10*3/uL [facility] Red Blood Count 5.34 4.60 - 5.80 X10*6/uL [facility] Hemoglobin 15.2 14.0 - 18.0 g/dl [facility] Hematocrit 46.9 42.0 - 52.0 % [facility] Mean Corpuscular Volume 87.8 80.0 - 98.0 fL [facility] Mean Corpuscular Hemoglobin 28.5 27.0 - 33.0 pg [facility] Mean Corpuscular HGB Conc 32.4 31.0 - 36.0 g/dl [facility] Red Cell Distribution Width 13.7 11.0 - 16.0 % [facility] Platelet Count 351 160 - 400 X10*3/uL [facility] Mean Platelet Volume 8.4(L) 9.4 - 12.4 fL [facility] NRBC Pct Auto 0.0 0.0 - 0.2 /100WBC [facility] NRBC Abs Auto 0.000 0.0 - 0.012 X10*3/uL [facility] 06/20/2024 1:31 PM EDT 06/20/2024 1:31 PM EDT us Generic External Data Provider LAB BLOOD ORDERAB LES Final Result [facility] [address] [place] [address] [phone] * (ABNORMAL) Urinalysis Complete (06/20/2024 1:30 PM EDT) Color Urine Dark Yellow [facility] Appearance Urine Clear [facility] PH 5.0 5.0 - 9.0 [facility] Glucose Urine UA Negative Negative mg/dL [facility] Urine Blood Negative Negative [facility] Specific [place] - Urine >=1.030(H) 1.005 - 1.025 [facility] Urine Protein 100 (2+)(A) Neg-Trace mg/dL [facility] Urine Ketones Trace Negative mg/dL [facility] Nitrite Urine Negative Negative [facility] Leukocyte Esterase Urine Negative Negative [facility] 06/20/2024 1:30 PM EDT 06/20/2024 1:40 PM EDT us Generic External Data Provider LAB URINE ORDERAB LES Final Result [facility] [address] [place] [address] [phone] * US VENOUS DUPLEX LE RT (04/25/2024 10:56 AM EDT) Anatomical Region Laterality Modality Abdomen Ultrasound 04/25/2024 10:5 6 AM EDT Narrative 04/25/2024 2:39 PM EDT ? [facility] ?[address] ?[place] [address] ? Ultrasound Report ? Signed ? Patient: Juan,Jason L ?MR#: [id number] ?? [id number] ? : 1970 ?Acct:[id number] ? Age/Sex: 53 / M ?ADM Date: /18/25 ? Loc: HO.US ? Attending Dr: Haresh Recinos MD ? Ordering Physician: Haresh Recinos MD ?? Date of Service: 04/25/24 ?? Procedure(s): US venous duplex LE RT ?? Accession Number(s): [id number] ? cc: Name,Haresh ELLIOTT ? EXAMINATION: ?? US TRIPLEX LOWER EXTREMITY, RIGHT ? CLINICAL INFORMATION: ?? Swelling, right lower extremity. ? COMPARISON: ?? October 08, 2023 demonstrated acute on chronic DVT, right common femoral ?? and femoral veins. ? TECHNIQUE: ?? Color-flow triplex imaging with spectral analysis and compression ?? Doppler were performed on the right lower extremity. ? FINDINGS: ?? Respiratory variation, normal compression and augmented flow are noted ?? throughout the visualized common femoral vein, superficial femoral ?? vein, profunda femoral vein, popliteal vein and midcalf peroneal and ?? posterior tibial venous segments . ? There is no Ferreira's cyst. ?? Nonspecific prominent 2.9 cm lymph node, right inguinal. ? US/ venous duplex LE RT ?? IMPRESSION: ?? No acute deep venous thrombosis involving the right lower extremity. ?? Negative for DVT.. ? Electronically signed by: ??Mahesh Lau MD ??04/25/2024 02:36 PM ?? EDT RP ? Dictated By: ?Mahesh Dior MD ? Signed By: ?<Electronically signed by Mahesh Beebe MD in OV> ? 04/25/24 1436 ? DD/ 1056 ? TD/TT: 04/25/24 1111 ? Car Shunter: ? Procedure Note Chilango Jones - 04/25/2024 [place] [address] Ultrasound Report Signed Patient: Jason Martinez LMR#: [id number] : 1970Acct:[id number] Age/Sex: 53 / MADM Date: 04/25/24 Loc: HO.US Attending Dr: Haresh Recinos MD Ordering Physician: Haresh Recinos MD Date of Service: 04/25/24 Procedure(s): US venous duplex LE RT Accession Number(s): [id number] cc: Haresh Recinos MD EXAMINATION: US TRIPLEX LOWER EXTREMITY, RIGHT CLINICAL INFORMATION: Swelling, right lower extremity. COMPARISON: October 08, 2023 demonstrated acute on chronic DVT, right common femoral and femoral veins. TECHNIQUE: Color-flow triplex imaging with spectral analysis and compression Doppler were performed on the right lower extremity. FINDINGS: Respiratory variation, normal compression and augmented flow are noted throughout the visualized common femoral vein, superficial femoral vein, profunda femoral vein, popliteal vein and midcalf peroneal and posterior tibial venous segments . There is no Ferreira's cyst. Nonspecific prominent 2.9 cm lymph node, right inguinal. US/US venous duplex LE RT IMPRESSION: No acute deep venous thrombosis involving the right lower extremity. Negative for DVT.. Electronically signed by: Mahesh Lua MD 04/25/2024 02:36 PM EDT RP Dictated By: Mahesh Dior MD Signed By: <Electronically signed by Mahesh Beebe MDin OV> 04/25/24 1436 DD/ 1056 TD/TT: 04/25/24 1111 Car Shunter: Haresh Recinos MD IMG US PROCEDURES Final Result * ECG 12 lead (04/06/2024 10:41 AM EST) Narrative NameHaresh MD - 04/06/2024 10:41 AM EST Sinus tachycardia. [...] 12:02 PM EDT) Triglycerides 379(H) <150 mg/dL [facility] Comment:Desirable Triglyceri de: less than 150 mg/dLBorderline High Triglyceride 150-199 mg/dLHigh Triglyceride: 200-499 mg/dLVery High Triglyceride: greater than or equal to 5OO mg/dL Cholesterol 217(H) <200 mg/dL [facility] Comment:Desirable Cholestero l: less than 200 mg/dLBorderline High Cholesterol: 200-239 mg/dLHigh Cholesterol: greater than 239 mg/dL LDL Cholesterol Calculated 114(H) <100 mg/dL [facility] Comment:Desirable LDL: less than 100 mg/dLNear Optimal/Above Optimal LDL: 110- 129 mg/dLBorderline High LDL: 130-159 mg/dLHigh LDL: 160-189 mg/dLVery High LDL: greater than or equal to 190 mg/dL HDL Cholesterol 28(L) >40 mg/dL [facility] Comment:Desirable HDL: great er than 40 mg/dL Note: This HDL assay may give artificially low results in patients with liver disease. Blood Venous blood specimen / Unknown 05/19/2023 12:02 PM EDT 05/19/2023 1:38 PM EDT us Haresh Name LAB BLOOD ORDERABLES Final Resul t [facility] [address] [place] [address] [phone] * Albumin, Random Urine W/Creatinine (05/19/2023 12:00 PM EDT) Creatinine, Urine 348.84 mg/dL [facility] Microalbumin Urine 55.0 mg/L [facility] Microalbum Creatinine Ratio Ur 15.7 <30 ug/mg cr [facility] Comment:Albumin/Creatinine R atio Reference Ranges: Normal: < 30 ug/mg creatinine Microalbuminuria: 30 - 300 ug/mg creatinineClinical Albuminuria: > 300 ug/mg creatinine Urine (Urine, Random) 05/19/2023 12:00 PM EDT 05/19/2023 1:35 PM EDT Haresh Recinos MD LAB URINE ORDERABLES Final Resul t [facility] [address] [place] [address] [phone] * HEPATITIS C AB W/REFL TO [...] a test for HCV RNA (test code 66857) is suggested. ?? For additional information please refer to http://Secure-[employer]/faq/HVV80r6 (This link is being provided for informational/ [...] ? For additional information please refer to http://education.[employer]/faq/FCZ643 (This link is being provided for informational/ educational purposes only.) ? The performance of this assay has not been clinically validated in patients less than 2 years old. ?? 11/27/2021 11:2 2 AM EDT Montse Duffy MD LAB BLOOD ORDERABLES Final R esult [facility] from Last 3 Months or Most Recently Relevant to Health Maintenance Insurance [facility] < [phone] [place] [id number] [facility] [address] [place] [phone] Care Teams Email Production Consultant Relationship Specialty Start Date End Date Name, MD Haresh [address] [place] [address] PCP - General Family Medicine 09/08/18 Bruce Dumas FNP [address] [place] [address] Nurse Practitioner Family Medicine 01/11/23 [place] [facility] 12/07/23
--- OUTSIDE RECORDS SUMMARY | 2024-06-20 14:24 | XMS_ITS | Encounter Summary ---
Author Organization [employer] Address [address] [place] [address] 7t [place] [address] Care Team Providers Care Platform Material Handler Manager Name Role Phone Name, Haresh ELLIOTT Primary Care Provider [phone] Bruce Dumas Unavailable Unavailable Reason for Visit * Reason Comments Med Refill Encounter Details Date Type Department Care Team ([facility] st Contact Info) Description 02/18/2023 Refill [facility] MED[facility]INE [address] [place] [address] Montse Duffy MD [address] [place] [address] Uncomplicated opioid dependence (CMS/HCC) Social History Tobacco [...] with others, in a hotel, in a skilled nursing, living outside on the street, on a [...] Description 07/10/2024 1:30 PM EDT Office Visit [facility] ADULT DENTAL [address] [place] [address] Ritika Cooper, DDS [address] [place] [address] 07/12/2024 2:00 PM EDT Office Visit [facility]ULT [facility] [address] [place] [address] Dorothy Mckeon documented as of this encounter Visit Diagnoses Diagnosis Uncomplicated opioid dependence (CMS/HCC) documented in this encounter Additional Health Concerns Assessment Noted Time PHQ-9 Depression Total Score: 16 023 9:35 AM EST documented as of this encounter Care Teams Platform Material Handler Manager Relationship Specialty Start Date End Date Name, MD Haresh [address] [place] [phone] PCP - General Family Medicine 09/08/18 Bruce Dumas FNP [address] [place] [address] Nurse Practitioner Family Medicine 01/11/23 [facility] 12/07/23 documented as of this encounter
--- OUTSIDE RECORDS SUMMARY | 2024-06-20 14:24 | XMS_ITS | Encounter Summary ---
Author Organization [employer] Address [address] [place] [address] 7t [place] [address] Care Team Providers Care Metalizing Supervisor Name Role Phone Name, Haresh ELLIOTT Primary Care Provider [phone] Bruce Dumas Unavailable Unavailable Reason for Visit * Reason Onset Date Comments Hospital Follow-up 12/09/2023 Encounter Details Date Type Department Care Team ([facility] st Contact Info) Description 12/09/2023 Telephone [facility] MEDICINE [address] [place] [address] Name, MD Haresh [address] [place] [address] Hospital Follow-up Social History Tobacco Use Types [...] from pt requesting a HDF appt. Hospital: [facility] Date of admission: States about 5 months ago Discharge date: 12/08/23 Diagnosed: mild stroke documented in this encounter Plan of Treatment Upcoming Encounters Date Type Department Care Team (Late st Contact Info) Description 07/10/2024 1:30 PM EDT Office Visit [facility] ADULT DENTAL [address] [place] [address] Ritika Cooper DDS [address] [place] [address] 07/12/2024 2:00 PM EDT Office Visit [facility] ADULT DENTAL [address] [place] [address] Dorothy Mckeon documented as of this encounter Visit Diagnoses Not on filedocumented in this encounter Additional Health Concerns Assessment Noted Time PHQ-9 Depression Total Score: 16 023 9:35 AM EST documented as of this encounter Care Teams Metalizing Supervisor Relationship Specialty Start Date End Date Name, MD Haresh [address] [place] [address] PCP - General Family Medicine 09/08/18 Bruce Dumas FNP [address] [place] [address] Nurse Practitioner Family Medicine 01/11/23 [facility] 12/07/23 documented as of this encounter
--- OUTSIDE RECORDS SUMMARY | 2024-06-20 14:24 | XMS_ITS | Encounter Summary ---
Author Organization [employer] Address [address] [place] [address] 7t [place] [address] Care Team Providers Care Model Builder Display Name Role Phone Name, Haresh ELLIOTT Primary Care Provider [phone] Bruce Dumas Unavailable Unavailable Reason for Visit * Reason Comments Med Refill Encounter Details Date Type Department Care Team (Late st Contact Info) Description 01/22/2022 Refill [facility] MEDICINE [address] [place] [address] Name, MD Haresh [address] [place] [address] Social History Tobacco Use Types Packs/Day Years [...] Description 07/10/2024 1:30 PM EDT Office Visit [facility] ADULT DENTAL [address] [place] [address] Ritika Cooper DDS [address] [place] [address] 07/12/2024 2:00 PM EDT Office Visit [facility] ADULT DENTAL [address] [place] [address] Dorothy Mckeon documented as of this encounter Visit Diagnoses Not on filedocumented in this encounter Care Teams Model Builder Display Relationship Specialty Start Date End Date Name, MD Haresh [address] [place] [address] PCP - General Family Medicine 09/08/18 Bruce Dumas FNP [address] [place] [address] Nurse Practitioner Family Medicine 01/11/23 [place] 12/07/23 documented as of this encounter
--- OUTSIDE RECORDS SUMMARY | 2024-06-20 14:24 | XMS_ITS | Encounter Summary ---
Author Organization [employer] Address [address] [place] [address] 7t [place] [address] Care Team Providers Care Soils Technician Name Role Phone Name, Haresh ELLIOTT Primary Care Provider [phone] Bruce Dumas Unavailable Unavailable Encounter Details Date Type Department Care Team (Late st Contact Info) Description 06/20/2024 Orders Only GENERIC EXTERNAL DATA DEPARTMENT Provider, Generic External Data Social History Tobacco Use Types Packs/Day Years [...] is your housing situation today? I have filippojacki khan 12/09/[address] you [...] Description 07/10/2024 1:30 PM EDT Office Visit [facility] ADULT D[facility]AL [address] [place] [address] Ritika Cooper DDS [address] [place] [address] 07/12/2024 2:00 PM EDT Office Visit [facility] ADULT [facility] [address] [place] [address] Dorothy Mckeon documented as of this encounter Procedures Procedure Name Priority Date/Time Associated Diagnosis Comments CBC Routine 06/20/2024 1:31 PM EDT URINALYSIS, COMPLETE Routine 06/20/2024 1:30 PM EDT documented in this encounter Results * (ABNORMAL) CBC (06/20/2024 1:31 PM EDT) White Blood Count 8.6 4.8 - 10.8 X10*3/uL [facility] Red Blood Count 5.34 4.60 - 5.80 X10*6/uL [facility] Hemoglobin 15.2 14.0 - 18.0 g/dl [facility] Hematocrit 46.9 42.0 - 52.0 % [facility] Mean Corpuscular Volume 87.8 80.0 - 98.0 fL [facility] Mean Corpuscular Hemoglobin 28.5 27.0 - 33.0 pg [facility] Mean Corpuscular HGB Conc 32.4 31.0 - 36.0 g/dl [facility] Red Cell Distribution Width 13.7 11.0 - 16.0 % [facility] Platelet Count 351 160 - 400 X10*3/uL [facility] Mean Platelet Volume 8.4(L) 9.4 - 12.4 fL [facility] NRBC Pct Auto 0.0 0.0 - 0.2 /100WBC [facility] NRBC Abs Auto 0.000 0.0 - 0.012 X10*3/uL [facility] 06/20/2024 1:31 PM EDT 06/20/2024 1:31 PM EDT us Generic External Data Provider LAB BLOOD ORDERAB LES Final Result Performing Organization Address [facility] Co de Phone Number [facility] [address] [place] [phone] * (ABNORMAL) Urinalysis Complete (06/20/2024 1:30 PM EDT) Color Urine Dark Yellow [facility] Appearance Urine Clear [facility] PH 5.0 5.0 - 9.0 [facility] Glucose Urine UA Negative Negative mg/dL [facility] Urine Blood Negative Negative [facility] Specific [place] - Urine >=1.030(H) 1.005 - 1.025 [facility] Urine Protein 100 (2+)(A) Neg-Trace mg/dL [facility] Urine Ketones Trace Negative mg/dL [facility] Nitrite Urine Negative Negative [facility] Leukocyte Esterase Urine Negative Negative [facility] 06/20/2024 1:30 PM EDT 06/20/2024 1:40 PM EDT us Generic External Data Provider LAB URINE ORDERAB LES Final Result Performing Organization Address [facility] Co de Phone Number [facility] [address] [place] [address] [phone] documented in this encounter Visit Diagnoses Not on filedocumented in this encounter Additional Health Concerns Assessment Noted Time PHQ-9 Depression Total Score: 16 023 9:35 AM EST documented as of this encounter Care Teams Soils Technician Relationship Specialty Start Date End Date Name, MD Haresh [address] [place] [address] PCP - General Family Medicine 09/08/18 Bruce Dumas FNP [address] [place] [address] Nurse Practitioner Family Medicine 01/11/23 [facility] 12/07/23 documented as of this encounter
[2024-06-20 14:25] LABS: Bacteria Urine None Seen (None Seen); RBC Urine 0-2 /HPF (0-2); WBC Urine 0-5 /HPF (0-5)
[2024-06-20 14:29] LABS: Anion Gap 14 (12-20); Blood Urea Nitrogen 24 mg/dL (9-16); Calcium 9.6 mg/dL (8.4-10.2); Carbon Dioxide 27 mmol/L (22-29); Chloride 105 mmol/L (96-108); Estimated Glomerular Filt Rate 38; Glucose Random 136 mg/dL (60-115); Potassium 4.5 mmol/L (3.3-5.1); Sodium 141 mmol/L (135-145)
[2024-06-20 14:37] LABS: Creatinine Urine 411.85 mg/dL; Total Protein Urine Random 84 mg/dL (<12)
[2024-06-20 15:49] LABS: Parathyroid Hormone Intact 248.1 pg/mL (8.7-77.1)
== END 2024-06-20 13:17 | disposition home or self-care (01) ==
LOC: HO.LAB 13:16
PROVIDERS: PCP Internal Medicine Geriatric Medicine; Visit Provider Internal Medicine Hypertension Specialist
DX: N18.32 Chronic kidney disease, stage 3b (principal)
CPT/HCPCS: 36415; 80048; 81001; 81003; 82570; 83970; 84156; 85027

== ENCOUNTER 2024-07-13 13:57 | Outpatient (AMB) | payer OTHER, SELFPAY ==
[2024-07-13 14:17] VITALS: BP 120/92; PULSE 109; O2SAT 94; BMI 44.4
--- NOTE | 2024-07-13 14:17 | HO.NEPHOV ---
Vital Signs 07/13/24 14:17 Height 5 ft 8 in Weight 292 lb BMI 44.4 BP 120/92 H Blood Pressure Location Lt brachial Position Sitting Pulse 109 H Pulse Source Pulse Oximeter Pulse Oximetry (%) 94 Oxygen Delivery Method Room Air Intake Visit Reasons: FU/ LVM Reshipping Clerk Required: No Accompanied by: Self / Same As Patient Allergies aspirin [ASPIRIN] Allergy (Unknown, Verified 03/30/24 10:55) SWELLING, NAUSEA, VOMITING Medication List - Last Reconciled 07/13/24 by Papi Youngblood MD acetaminophen ER (Arthritis Pain Relief (acetaminophen) ER) 650 mg PO Q6H PRN albuterol sulfate 90 mcg/actuation 2 puffs inhalation QID PRN apixaban (Eliquis) 5 mg PO BID aripiprazole (Abilify) 2.5 mg (1/2 x 5 mg) PO DAILY gabapentin mg PO omeprazole 20 mg PO DAILY trazodone 25 mg (1/2 x 50 mg) PO BEDTIME HPI Comments Details: Jason is a 53 y/o with a medical history of DMII, asthma, HTN, chronic back pain, mood disorder, righ tleg DVT and CHITO. He presents today for hospital follow up. Had prolonged hospitalization (primarily due to placement delays), from 08/08/23- 12/06/23. 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 creatinine between 1.62 and 2.58 since October. Most recent creatinine 2.01 January 04, 2024. GFR 34-45 since October. Reports he was homeless on admission, was discharged from hospital in November to a housing program on [address] [place] [address] in [place], reports he is in a program for homeless while waiting housing placement. reports 6 cigarettes most days, states drinks whisky- reports half a pint and two cups of wine. denies use of nsaids, only tylenol PRN reports his fasting sugars are in 170s-190s, reports he does have ice cream, and drinks orange juice frequently. Also white rice is frequent. Reports sees PCP for diabetes management but does not have a follow up appointment. reports he is working on minimizing salt reports he hydrates throughout the day breathing is comfortable at rest, no chest pain or dizziness. has a personal lines appraiser and working on exercise from PT 4x weekly. still deconditioned and dyspnea with exertion/exercise but has made some mild improvement with PT. no dysuria, no flank pain, no abdominal pain reports some ongoing tingling in his lower extremities. 07/13/24 54-year-old male presenting with management concerns of chronic kidney disease (CKD) and associated issues. His kidney function has shown stability at a 36-38% glomerular filtration rate over the preceding year, which represents improvement from a markedly low point a year prior. The patient acknowledges suboptimal fluid intake, contributing to concentrated urine, and there is indication of proteinuria, albeit at a low level. No diabetes medication is currently being administered as blood sugars have been maintained well. The patient also has a history of hypertension but currently does not report any pain despite experiencing episodes of rapid heart rate. Other significant history includes a hernia repair performed last year, with occasional itching noted at the surgical site. Dietary recommendations were discussed as a preventive measure for kidney health. [facility] Medical History Tobacco dependence syndrome Rectal hemorrhage Prostatism Palpitations Nausea Leg edema, left Hyperglycemia Homeless History of COVID-19 Heartburn Essential hypertension Depressive disorder Chronic pain of left knee Chronic lower back pain Chest pain Asthma Amnesia Surgical History Umbilical hernia (04/01/23) History of surgery on lower extremity History of surgery on arm Family History Mother Heart disease Diabetes Dementia Brainstem hemorrhage Father No problems noted. Social History Alcohol intake: former Comment: counts correct Patient Tobacco Use Status: Former Tobacco user service: No Physical Exam Vital Signs: Last Vital Signs Pulse 109 H 07/13/24 14:17 BP 120/92 H 07/13/24 14:17 Pulse Ox 94 07/13/24 14:17 Oxygen Delivery Method Room Air 07/13/24 14:17 BMI result Body Mass Index 44.4 Const General: no acute distress and alert Neck Neck: Yes no JVD Thyroid: Thyroid normal Resp Effort & Inspection: normal respiratory effort and able to speak in complete sentences Auscultation: clear to auscultation bilaterally Cardio Jugular venous distension: no JVD Rate: regular rate Rhythm: regular rhythm Heart sounds: S1 normal heart sound present and S2 normal heart sound present GI Palpation (GI): Soft to palpation and nontender General: Yes no CVA tenderness Back/Spine/Pelvis Back: no CVA tenderness Skin Lesions: no lesions Rashes: no rashes Extrem General: No edema Results Reviewed Nephrology Results: Hgb 15.2 g/dl (14.0-18.0) 06/20/24 WBC 8.6 X10*3/uL (4.8-10.8) 06/20/24 Plt Count 351 X10*3/uL (160-400) 06/20/24 Sodium 141 mmol/L (135-145) 06/20/24 Potassium 4.5 mmol/L (3.3-5.1) 06/20/24 Chloride 105 mmol/L (96-108) 06/20/24 Carbon Dioxide 27 mmol/L (22-29) 06/20/24 BUN 24 mg/dL (9-16) H 06/20/24 Creatinine 1.88 mg/dL (0.5-1.4) H 06/20/24 Calcium 9.6 mg/dL (8.4-10.2) 06/20/24 Phosphorus 2.7 mg/dL (2.7-4.5) 01/24/24 PTH Intact 248.1 pg/mL (8.7-77.1) H 06/20/24 Urine Protein 100 (2+) mg/dL (Neg-Trace) H 06/20/24 Urine Creatinine 411.85 mg/dL 06/20/24 Assessment & Plan Assessment & Plan (1) CHITO (acute kidney injury): Code(s): N17.9 - Acute kidney failure, unspecified Category: Medical (2) CKD (chronic kidney disease): Code(s): N18.9 - Chronic kidney disease, unspecified Category: Medical Qualifiers: Chronic kidney disease stage: stage 3 (moderate) Chronic kidney disease stage 3 subtype: stage 3b (GFR 30-44) Qualified Code(s): N18.32 - Chronic kidney disease, stage 3b Plan CHITO secondary to ATN from pigment nephropathy, has regained some residual renal function but remains impaired in CKD3b range, though potential to continue to have some slow recovery. Has underlying CKD Discussed stopping cigarettes, alcohol and continue to avoid NSAIDs, Maintain A1C < 7% Low salt diet Orders: Orders Basic Metabolic Panel 4 Months N18.32 - Chronic kidney disease, stage 3b Coding Level of Care Code Est Pt Level 4 (99105) Diagnoses CHITO (acute kidney injury) N17.9 Stage 3b chronic kidney disease N18.32 Chronic kidney disease stage: stage 3 (moderate) Chronic kidney disease stage 3 subtype: stage 3b (GFR 30-44)
--- OUTSIDE RECORDS SUMMARY | 2024-07-13 16:31 | XMS_ITS | Encounter Summary ---
Author Organization [employer] Address [address] [place] [address] 7[address] [place] [address] Care Team Providers Care Sales Assistant Displays Name Role Phone Name, Haresh ELLIOTT Primary Care Provider [phone] Bruce Dumas Unavailable Unavailable Reason for Visit * Reason Onset Date Comments No Show 10/06/2022 Encounter Details Date Type Department Care Team ([facility] st Contact Info) Description 10/06/2022 Telephone [facility] MEDICINE [address] [place] [address] Name, MD Haresh [address] [place] [address] No Show Social History Tobacco Use Types [...] AM EDT documented as of this encounter Functional Status * Over the past 2 weeks, how often have you been bothered by any of the following problems? Question Answer Date of Assessment Author Patient Health Questionnaire -2 Score 6 10/06/2022 4:02 PM EDT Valentina Correa MA * If you checked off any problems on this questionnaire so far, Question Answer Date of Assessment Author How difficult have these problems made it for you to do your work, take care of things at home, or get along with other people? Somewhat difficult 10/06/2022 4:02 PM Valentina Tubbs MA * Over the past 2 weeks, how often have you been bothered by any of the following problems? Question Answer Date of Assessment Author Little interest or pleasure in doing things Nearly every day 10/06/2022 4:02 PM Montse Tubbs MA Feeling down, depressed, or hopeless Nearly every day 10/06/2022 4:02 PM Valentina Tubbs MA Trouble falling or staying asleep, or sleeping too much Nearly every day 10/06/2022 4:02 PM Valentina Tubbs MA Feeling tired or having little energy Nearly every day 10/06/2022 4:02 PM Valentina Tubbs MA Poor appetite or overeating Several days 10/06/2022 4:02 PM Valentina Tubbs MA Feeling bad about yourself - or that you are a failure or have let yourself or your family down Not at all 10/06/2022 4:02 PM Valentina Tubbs MA Trouble concentrating on things, such as reading the newspaper or watching television Nearly every day 10/06/2022 4:02 PM Valentina Tubbs MA Moving or speaking so slowly that other people could have noticed? Or the opposite - being so fidgety or restless that you have been moving around a lot more than usual. Several days 10/06/2022 4:02 PM Valentina Tubbs MA Thoughts that you would be better off or hurting yourself in some way Not at all 10/06/2022 4:02 PM Mita Tubbs MA Patient Health Questionnaire-9 Score 17 10/06/2022 4:02 PM Calista Tubbs MA documented as of this encounter Miscellaneous Notes [...] accepted this outcome Please contact pt at [phone] documented in this encounter Plan of Treatment Not on file documented as of this encounter Visit Diagnoses Not on filedocumented in this encounter Additional Health Concerns Assessment Noted Time PHQ-9 Depression Total Score: 17 023 4:02 PM EDT documented as of this encounter Care Teams Sales Assistant Displays Relationship Specialty Start Date End Date Name, MD Haresh [address] [place] [address] PCP - General Family Medicine 09/08/18 Bruce Dumas FNP [address] [facility] [place] [address] Nurse Practitioner Family Medicine 01/11/23 [facility] 12/07/23 documented as of this encounter
== END 2024-07-13 14:42 | disposition home or self-care (01) ==
LOC: HO.HKA 13:57
PROVIDERS: PCP Internal Medicine Geriatric Medicine; Visit Provider Internal Medicine Hypertension Specialist
DX: N17.9 Acute kidney failure, unspecified (principal); N18.32 Chronic kidney disease, stage 3b
CPT/HCPCS: 99214

== ENCOUNTER → 2024-07-13 13:57 | Outpatient (BNVA) | payer OTHER, SELFPAY | PROVIDERS: PCP Internal Medicine Geriatric Medicine; Visit Provider Internal Medicine Hypertension Specialist | DX: N18.32 Chronic kidney disease, stage 3b (principal); N17.9 Acute kidney failure, unspecified | CPT/HCPCS: 99212 ==

== ENCOUNTER 2024-08-17 14:16 | Emergency (ER) | payer OTHER, SELFPAY ==
--- NOTE | 2024-08-17 | ECG_ITS ---
Test Reason : CP Blood Pressure : */* mmHG Vent. Rate : 104 BPM Atrial Rate : 104 BPM P-R Int : 146 ms QRS Dur : 78 ms QT Int : 330 ms P-R-T Axes : 44 6 45 degrees QTcB Int : 433 ms Sinus tachycardia Otherwise normal ECG When compared with ECG of 08-Oct-2023 08:54, No significant change was found Referred By: Generic ED Physician Electronically Signed By: Pascual Richter
--- NOTE | ~2024-08-17 | XR_ITS ---
EXAMINATION: XR CHEST 2 VIEWS HISTORY: CP COMPARISON: Comparison is made with the prior examination dated 10/10/2023. FINDINGS: PA and lateral views of the chest are submitted. There is a 5 cm mass in the right upper lobe and an additional 2 cm mass at the right lung apex. The left lung is clear. There is no pleural effusion, pneumothorax, or pulmonary vascular congestion. The heart is normal in size. There is degenerative disc disease of the spine. XR/XR chest 2V IMPRESSION: Right upper lobe masses. Further evaluation with chest CT with contrast is recommended. Electronically signed by: Kristofer Becerra MD 08/17/2024 03:48 PM EDT
[2024-08-17 14:26] VITALS: BP 136/90; PULSE 104; O2SAT 97
[2024-08-17 14:41] VITALS: BP 128/83; PULSE 109; RESP 18; TEMP 36.6; O2SAT 97; BMI 45.5
--- NOTE | 2024-08-17 14:41 | ED.CHESTPAIN ---
HPI - Chest Pain General Chief Complaint: Arrhythmia/Palpitations Stated Complaint: PER EMS CP [id number] Related Data Home Medications ?Medication ?Instructions ?Recorded ?Confirmed acetaminophen 650 mg 650 mg PO Q6H PRN fever 04/24/22 07/13/24 tablet,extended release (Arthritis Pain Relief (acetaminophen) ER) gabapentin 100 mg capsule mg PO 07/13/24 07/13/24 omeprazole 20 mg capsule,delayed 20 mg PO DAILY 07/13/24 07/13/24 release Previous Rx's ?Medication ?Instructions ?Recorded albuterol sulfate 90 mcg/actuation 2 puff inhalation QID PRN 12/06/23 aerosol inhaler Shortness Of Breath Or Wheezing #8.5 grams apixaban 5 mg tablet (Eliquis) 5 mg PO BID #60 tabs 12/06/23 aripiprazole 5 mg tablet (Abilify) 2.5 mg (1/2 x 5 mg) PO DAILY #30 12/06/23 tabs trazodone 50 mg tablet 25 mg (1/2 x 50 mg) PO BEDTIME #30 12/06/23 tabs Allergies Allergy/AdvReac Type Severity Reaction Status Date / Time aspirin (ASPIRIN) Allergy Unknown SWELLING, Verified 08/17/24 14:45 NAUSEA, VOMITING PMFSH Past Medical History Medical History Tobacco dependence syndrome Rectal hemorrhage Prostatism Palpitations Nausea Leg edema, left Hyperglycemia Homeless History of COVID-19 Heartburn Essential hypertension Depressive disorder Chronic pain of left knee Chronic lower back pain Chest pain Asthma Amnesia Surgical History Umbilical hernia (04/01/23) History of surgery on lower extremity History of surgery on arm Family History Family History Mother Heart disease Diabetes Dementia Brainstem hemorrhage Father No problems noted. Social History Social History Alcohol intake: former Comment: counts correct Patient Tobacco Use Status: Former Tobacco user Advance Directives: No Advance Directives Information Provided: No service: No Physical Exam Vital Signs: Vital Signs: Last Vital Signs Temp 97.9 F 08/17/24 14:41 Pulse 109 H 08/17/24 14:41 Resp 18 08/17/24 14:41 BP 128/83 08/17/24 14:41 Pulse Ox 97 08/17/24 14:41 O2 Del Method Room Air 08/17/24 14:41 BMI result Body Mass Index 45.5 Course Course Course Narrative: This is an RME: Additional HPI, ROS, PE not included below will be deferred to primary provider. RME assessment and note performed by: Merary Rizvi PA-C This is a [id number]-male, with a hx of DM2, HTN, asthma, DVT on eliquis, presented to ED who presents to the ER via EMS with complaints of chest pain since this morning. Pt reports that this morning he had an episode of chest pain that lasted for 2 hours, reportring he felt as though his heart was racing at this time. Was walking to his kitchen and felt his heart racing. Reports that he has not had symptoms since. Also having neuropathy in his legs. Plan: Labs, EKG, CXR, viral swabs, further ER eval needed Medical Decision Making Lab Data 08/17/24 16:26 08/17/24 16:26 Labs: Lab Results 08/17/24 08/17/24 Range/Units 16:25 16:26 WBC 9.3 (4.8-10.8) X10*3/uL RBC 5.49 (4.60-5.80) X10*6/uL Hgb 14.9 (14.0-18.0) g/dl Hct 47.3 (42.0-52.0) % MCV 86.2 (80.0-98.0) fL MCH 27.1 (27.0-33.0) pg MCHC 31.5 (31.0-36.0) g/dl RDW 14.1 (11.0-16.0) % Plt Count 350 (160-400) X10*3/uL MPV 8.5 L (9.4-12.4) fL Immature Gran % (Auto) 0.2 (0.0-0.4) % Neut % (Auto) 67.5 (45-73) % Lymph % (Auto) 22.8 (20-40) % [place] % (Auto) 6.1 (2-11) % Eos % (Auto) 2.9 (0-4) % Baso % (Auto) 0.5 (0-2) % Lymph # (Auto) 2.1 (1.2-4.9) X10*3/uL [place] # (Auto) 0.6 (0.1-1.2) X10*3/uL Eos # (Auto) 0.3 (0.0-0.4) X10*3/uL Baso # (Auto) 0.1 (0.0-0.2) X10*3/uL Abs Immat Gran (auto) 0.02 (0.00-0.03) X10*3/uL Absolute Neuts (auto) 6.3 (2.0-8.3) x10*3/uL Absolute Nucleated RBC 0.000 (0.0-0.012) X10*3/uL Nucleated RBC % (auto) 0.0 (0.0-0.2) /100WBC Sodium 140 (135-145) mmol/L Potassium 4.1 (3.3-5.1) mmol/L Chloride 109 H (96-108) mmol/L Carbon Dioxide 21 L (22-29) mmol/L Anion Gap 14 (12-20) BUN 21 H (9-16) mg/dL Creatinine 1.91 H (0.5-1.4) mg/dL Estim Creat Clear Calc 58.4 Estimated GFR 37 Random Glucose 111 (60-115) mg/dL Calcium 9.3 (8.4-10.2) mg/dL Magnesium 2.2 (1.6-2.6) mg/dL Total Bilirubin 0.2 (0.0-1.0) mg/dL Direct Bilirubin < 0.2 (0.0-0.5) mg/dL AST 22 (5-37) U/L ALT 36 (0-40) U/L Alkaline Phosphatase 132 H (39-117) U/L Troponin I High Sens 4.5 D (<3.5-35.0) ng/L B-Natriuretic Peptide < 10 (<100) pg/mL Total Protein 7.9 (6.5-8.0) g/dL Albumin 4.2 (3.5-5.0) g/dL Influenza Type A (PCR) NEGATIVE (Negative) Influenza Type B (PCR) NEGATIVE (Negative) RSV RNA Qual (PCR) NEGATIVE (Negative) SARS-CoV-2 RNA (RT-PCR) NEGATIVE (Negative) Discharge Plan Discharge Clinical Impression: Diagnosis unknown Patient Disposition: Left W/O Completing Treatment Prescriptions: No Action Eliquis 5 mg Tablet 5 mg PO BID Qty: 60 0RF aripiprazole [Abilify] 5 mg Tablet 2.5 mg PO DAILY Qty: 30 0RF trazodone 50 mg tablet 25 mg PO BEDTIME Qty: 30 0RF albuterol sulfate 90 mcg/actuation HFA aerosol inhaler 2 puff INHALATION QID PRN (Reason: Shortness Of Breath Or Wheezing) Qty: 8.5 0RF acetaminophen [Arthritis Pain Relief (acetam)] 650 mg tablet extended release 650 mg PO Q6H PRN (Reason: fever) gabapentin 100 mg capsule PO omeprazole 20 mg capsule,delayed release(DR/EC) 20 mg PO DAILY Discharge Date/Time: 08/17/24 19:36
[2024-08-17 16:31] LABS: MANUAL DIFF FLAG NO
[2024-08-17 16:32] LABS: Hematocrit 47.3 % (42.0-52.0); Hemoglobin 14.9 g/dl (14.0-18.0); Imm Gran Abs Auto 0.02 X10*3/uL (0.00-0.03); Imm Gran Pct Auto 0.2 % (0.0-0.4); Lymphocytes Absolute Auto 2.1 X10*3/uL (1.2-4.9); Mean Corpuscular HGB Conc 31.5 g/dl (31.0-36.0); Mean Corpuscular Hemoglobin 27.1 pg (27.0-33.0); Mean Corpuscular Volume 86.2 fL (80.0-98.0); NRBC Abs Auto 0.000 X10*3/uL (0.0-0.012); NRBC Pct Auto 0.0 /100WBC (0.0-0.2); Platelet Count 350 X10*3/uL (160-400); Red Blood Count 5.49 X10*6/uL (4.60-5.80); White Blood Count 9.3 X10*3/uL (4.8-10.8)
[2024-08-17 16:47] LABS: Alanine Aminotransferase 36 U/L (0-40); Albumin Level 4.2 g/dL (3.5-5.0); Alkaline Phosphatase 132 U/L (39-117); Anion Gap 14 (12-20); Aspartate Amino Transferase 22 U/L (5-37); Blood Urea Nitrogen 21 mg/dL (9-16); Calcium 9.3 mg/dL (8.4-10.2); Carbon Dioxide 21 mmol/L (22-29); Chloride 109 mmol/L (96-108); Creatinine Clr Calc Pharmacy 58.4; Estimated Glomerular Filt Rate 37; Magnesium 2.2 mg/dL (1.6-2.6); Potassium 4.1 mmol/L (3.3-5.1); Sodium 140 mmol/L (135-145); Total Protein 7.9 g/dL (6.5-8.0)
[2024-08-17 16:53] LABS: B Type Natriuretic Peptide < 10 pg/mL (<100)
[2024-08-17 16:54] LABS: Troponin-I High Sensitivity 4.5 ng/L (<3.5-35.0)
[2024-08-17 17:08] LABS: Resp Syncy Virus RNA Qual PCR NEGATIVE (Negative); SARS COV2 PCR INHOUSE NEGATIVE (Negative)
== END 2024-08-17 19:36 | disposition left against medical advice (07) ==
PROVIDERS: Physician Assistant Medical; Emergency Provider Emergency Medicine
DX: R00.2 Palpitations (principal); Z53.21 Procedure and treatment not carried out due to patient leaving prior to being seen by health care provider; Z03.818 Encounter for observation for suspected exposure to other biological agents ruled out
CPT/HCPCS: 36415; 71046; 80048; 80076; 83735; 83880; 84484; 85025; 87637; 93005; 99283

== ENCOUNTER → 2024-08-17 14:23 | Outpatient (BNV) | payer OTHER, SELFPAY | PROVIDERS: Emergency Provider Emergency Medicine; Visit Provider Internal Medicine Cardiovascular Disease | DX: R00.0 Tachycardia, unspecified (principal) | CPT/HCPCS: 93010 ==

== ENCOUNTER → 2024-08-17 14:46 | Outpatient (BNV) | payer OTHER, SELFPAY | PROVIDERS: Visit Provider Radiology Diagnostic Radiology | DX: R91.8 Other nonspecific abnormal finding of lung field (principal) | CPT/HCPCS: 71046 ==

== ENCOUNTER 2024-08-23 13:39 | Emergency (ER) | payer OTHER, SELFPAY ==
--- NOTE | ~2024-08-23 | XR_ITS ---
EXAMINATION: XR FOOT, RIGHT CLINICAL INFORMATION: rolled ankle, swollen [place] COMPARISON: None available. TECHNIQUE: AP, lateral, and oblique views of the right foot. FINDINGS: There is a lucency through the proximal tip of the fifth metatarsal tuberosity. Fracture line extends into the tarsometatarsal joint. There are small calcaneal spurs. Hallux valgus deformity is present. There are mild degenerative changes with narrowing of interphalangeal joints. There is juxta-articular osteopenia, nonspecific finding. Marginal osteophytes are present involving the tibial plafond, larger anteriorly. XR/XR foot RT min 3V IMPRESSION: Fifth metatarsal tuberosity avulsion (pseudo-Rea fracture). Mild degenerative changes. Hallux valgus deformity. Electronically signed by: Arnoldo Arcos MD 08/23/2024 02:48 PM EDT
--- NOTE | ~2024-08-23 | XR_ITS ---
EXAMINATION: XR ANKLE, RIGHT CLINICAL INFORMATION: rolled ankle swollen COMPARISON: None available. TECHNIQUE: AP, lateral, and mortise views of the right ankle. FINDINGS: No definitive fracture, dislocation, or suspicious bone lesion. 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 Mild osseous spurring of the medial and lateral malleoli. The mortise is intact. The talar dome is normal. The subtalar joints appear normal. There are moderate sized dorsal and plantar calcaneal spurs. There is circumferential soft tissue swelling. XR/XR ankle RT min 3V IMPRESSION: 1. No acute bony abnormalities of the right ankle. 2. There is diffuse soft tissue swelling. Electronically signed by: Michael Francisco MD 08/23/2024 02:45 PM EDT
[2024-08-23 14:06] VITALS: BP 146/111; PULSE 115; RESP 16; TEMP 36.9; O2SAT 98; BMI 41.4
--- NOTE | 2024-08-23 14:06 | ED.LOWEXIN ---
HPI - Extremity Injury (Lower) General Chief Complaint: Extremity Injury, Lower Stated Complaint: right ankle sprain Time Seen by Provider: 08/23/24 15:43 Source: patient and RN notes reviewed Mode of arrival: wheelchair Limitations: physical limitation History of Present Illness ED Provider: Flavia Mckeon PA-C HPI Narrative: [place] a trip and fall from sitting to standing resulting in him rolling his right ankle. He uses cane/walker to amb at baseline. He has had pain bearing weight on it since that time. PMH sig for VTE no longer on anticoagulation. He is denying any calf pain or sob. He points to his lateral ankle/foot for where it hurst the most. At rest, no pain. No pain in toes, knee, or hip. He denies full fall or any other injuries. He iced it once, but otherwise has not treated it in any way. On exam swelling to right lateral ankle/foot with TTP. There is not evidence of joint instability or NVC. Xrays were ordered from triage and reviewed. U/S in April, 4 months cleared him of VTE in his RLE which allowed him to come off anticoagulation therapy. He denies any other pain/trauma. Patient is requesting to leave prior to being fully evaluated. I saw him as soon as possible to evaluate for other injuries or NVC and to discuss his results for which he agreed to wait for. Related Data Home Medications ?Medication ?Instructions ?Recorded ?Confirmed acetaminophen 650 mg 650 mg PO Q6H PRN fever 04/24/22 07/13/24 tablet,extended release (Arthritis Pain Relief (acetaminophen) ER) gabapentin 100 mg capsule mg PO 07/13/24 07/13/24 omeprazole 20 mg capsule,delayed 20 mg PO DAILY 07/13/24 07/13/24 release Previous Rx's ?Medication ?Instructions ?Recorded albuterol sulfate 90 mcg/actuation 2 puff inhalation QID PRN 12/06/23 aerosol inhaler Shortness Of Breath Or Wheezing #8.5 grams apixaban 5 mg tablet (Eliquis) 5 mg PO BID #60 tabs 12/06/23 aripiprazole 5 mg tablet (Abilify) 2.5 mg (1/2 x 5 mg) PO DAILY #30 12/06/23 tabs trazodone 50 mg tablet 25 mg (1/2 x 50 mg) PO BEDTIME #30 12/06/23 tabs acetaminophen 300 mg-codeine 15 mg 1 tab PO Q6H PRN severe pain 08/23/24 tablet (scale score 7-10) #10 tabs morphine 15 mg immediate release 15 mg PO Q4-6H PRN severe pain 08/23/24 tablet (scale score 7-10) #10 tabs Allergies Allergy/AdvReac Type Severity Reaction Status Date / Time aspirin (ASPIRIN) Allergy Unknown SWELLING, Verified 08/23/24 14:11 NAUSEA, VOMITING Review of Systems Review of Systems: Yes all other systems are reviewed and are negative PMFSH Past Medical History Attestation statement: The following information was validated with the patient. Source: old records reviewed and nursing notes reviewed Medical History Tobacco dependence syndrome Rectal hemorrhage Prostatism Palpitations Nausea Leg edema, left Hyperglycemia Homeless History of COVID-19 Heartburn Essential hypertension Depressive disorder Chronic pain of left knee Chronic lower back pain Chest pain Asthma Amnesia Surgical History Umbilical hernia (04/01/23) History of surgery on lower extremity History of surgery on arm Family History Family History Mother Heart disease Diabetes Dementia Brainstem hemorrhage Father No problems noted. Social History Social History Alcohol intake: former Comment: counts correct Patient Tobacco Use Status: Former Tobacco user service: No Physical Exam Vital Signs: Vital Signs: Last Vital Signs Temp 98.5 F 08/23/24 18:25 Pulse 115 H 08/23/24 18:25 Resp 16 08/23/24 18:25 BP 00/00 L 08/23/24 18:25 Pulse Ox 98 08/23/24 18:25 O2 Del Method Room Air 08/23/24 18:25 BMI result Body Mass Index 41.4 General: Appears in no acute distress, appears well nourished body habitus is obese, appears stated age. No septic or ill-appearing. Vitals reviewed normal, PMH/Social and Surgical hx reviewed including allergies and current medications. - reviewed for prior visits here including VTE results in may 02. Head: Normocephalic, no obvious trauma or skin lesions noted. Eyes: EOMI ENMT: moist oral mucosa Neck: trachea midline Cardiovascular: peripheral perfusion normal, Regular heart rate, regular rhythm, no palpable cords Respiratory: no respiratory distress Abdomen: nondistended Extremities: warm and moving without difficulty unless otherwise detailed in physical exam if applicable: RLE: soft tissue swelling right lateral foot with TTP of base of 5th and lateral malleolus, pain with both dorsiflexion and plantarflexion, mild ecchymosis, no pain out of proportion, no calf pain, compartments soft Psych: Cooperative but flat Neuro: Alert and oriented. DTRs intact, compartments soft, sensation and strength equal and symmetric despite injury in RLE. Gait is antalgic with favorng of RLE. He does not have walker with him, has wheelchair, stands but holds chair (not new) Course Course Course Narrative: 08/23/24 1407 BRYAN Rose This is a Rapid Medical Examination (RME) performed by Deysi Nevarez PA-C in triage. Full HPI, ROS, assessment and treatment plan per primary provider in the Main ED. Hx: 54 yo M hx of CKD, DVT, T2DM, BRONSON, morbid obesity here for eval of R ankle pain/swelling since yesterday. he ambulates w/ walker and cane at baseline. attempted to get out of his chair and upon stepping out with his right foot, felt the ankle roll causing him to fall back. admits to pain to ankle/foot. took tylenol without improvement. hx neuropathy. hx DVT no longer on AC. Plan: xrs Medical Decision Making Medical Decision Making [facility] Narrative: Well appearing obese 54 y/o M arrives to ED for evaluation of acute injury to his RLE that occurred yesterday. H and P as above. He does not appear ill or septic. He has RME in triage. Imaging of his rightankle/ foot was ordered along with basic labs. No septic joint is present. No evidence of NVC. Xrays significant for pseudo-rm fx right foot. He is amb at his baseline with boot and already has DME at home. He does not appear to need to be placed at [facility] for care. He requests to go home but would have considered PT/CM consulting otherwise. Given no sig displacement, ortho not consulted. He has requested pain medication. Short term pain rX given. Discussed risk of addiction with patient. He will f/u with orthopedics. He was given information and d/c to home stable. Differential Diagnosis Differential Diagnoses: The differential diagnosis associated with the presentation includes fracture of ankle/foot compartment syndrome ankle/foot sprain Admission/Observation Consideration of admission/observation: Escalation of care including admission/observation considered Lab Data MDM Lab Attestation statement: I reviewed the patient's lab results. 08/23/24 14:25 08/23/24 14:25 Labs: Lab Results 08/23/24 Range/Units 14:25 WBC 7.8 (4.8-10.8) X10*3/uL RBC 5.25 (4.60-5.80) X10*6/uL Hgb 14.6 (14.0-18.0) g/dl Hct 44.8 (42.0-52.0) % MCV 85.3 (80.0-98.0) fL MCH 27.8 (27.0-33.0) pg MCHC 32.6 (31.0-36.0) g/dl RDW 14.0 (11.0-16.0) % Plt Count 340 (160-400) X10*3/uL MPV 8.3 L (9.4-12.4) fL Immature Gran % (Auto) 0.3 (0.0-0.4) % Neut % (Auto) 73.4 H (45-73) % Lymph % (Auto) 17.6 L (20-40) % [place] % (Auto) 4.9 (2-11) % Eos % (Auto) 3.3 (0-4) % Baso % (Auto) 0.5 (0-2) % Lymph # (Auto) 1.4 (1.2-4.9) X10*3/uL [place] # (Auto) 0.4 (0.1-1.2) X10*3/uL Eos # (Auto) 0.3 (0.0-0.4) X10*3/uL Baso # (Auto) 0.0 (0.0-0.2) X10*3/uL Abs Immat Gran (auto) 0.02 (0.00-0.03) X10*3/uL Absolute Neuts (auto) 5.7 (2.0-8.3) x10*3/uL Absolute Nucleated RBC 0.000 (0.0-0.012) X10*3/uL Nucleated RBC % (auto) 0.0 (0.0-0.2) /100WBC Sodium 138 (135-145) mmol/L Potassium 4.1 (3.3-5.1) mmol/L Chloride 109 H (96-108) mmol/L Carbon Dioxide 23 (22-29) mmol/L Anion Gap 10 L (12-20) BUN 15 (9-16) mg/dL Creatinine 1.83 H (0.5-1.4) mg/dL Estim Creat Clear Calc 59.6 Estimated GFR 39 Random Glucose 115 (60-115) mg/dL Calcium 9.3 (8.4-10.2) mg/dL Magnesium 2.2 (1.6-2.6) mg/dL Total Bilirubin 0.2 (0.0-1.0) mg/dL AST 21 (5-37) U/L ALT 32 (0-40) U/L Alkaline Phosphatase 119 H (39-117) U/L B-Natriuretic Peptide 18 (<100) pg/mL Total Protein 7.5 (6.5-8.0) g/dL Albumin 4.1 (3.5-5.0) g/dL Independent Interpretation I performed an independent interpretation of an: Plain X-Ray Interpretation: ankle: no acute findings, possible base of 5th fx, foot: base of the 5th fx, not avulsion Radiology Impression Discussion of test interpretation with radiology: I have reviewed the radiologist's reading. Radiologist Impression: pseudo-rm fx right foot, neg ankle External Record Review External record reviewed: Outpatient record and Prior outpatient radiology Tests considered The following testing was considered but not selected: WOuld have considered VTE had patient had atraumatic swelling and pain in RLE Prescription Management I considered prescription management with: Pain Medication Chronic Conditions Patient?s care impacted by: Other (obesity, reliance of DME at baseline) Social Determinants Patient?s care significantly limited by Social Determinants of Health including: Other Social Determinant of Health Discharge Plan Discharge Clinical Impression: Fracture of fifth metatarsal bone of right foot, Moderate right ankle sprain Patient Disposition: Home, Self-Care Instructions: Foot Fracture in Adults (ED) Additional Instructions: You were evaluated for an injury to the right lower extremity You had x-rays done that show an acute fracture of your right 5th metatarsal of the lateral portion of your foot You have been given a cam boot which you can remove when sleeping or when showering but otherwise do not bear weight until otherwise cleared by Orthopedics you have been given crutches. Failure to follow up with the specialist may result in bones not healing correctly and loss of proper function of your right lower extremity?? It is important to make and keep your appointment with the specialist.? In the meantime,? Use Motrin/Advil (ibuprofen) 400-600 mg every 6 to 8 hours? as needed for pain. In addition, you can use Tylenol (acetaminophen) 650 mg every 6 hrs as needed for pain.? Do not take more than 3000 mg in one day! Elevate the extremity as much as possible Return immediately or call your doctor for increased or uncontrolled pain, numbness, tingling, or weakness of the injured body part. Please see an orthopedist as soon as possible. Be sure to call today to schedule an appointment. Prescriptions: New morphine 15 mg tablet 15 mg PO Q4-6H PRN (Reason: severe pain (scale score 7-10)) Qty: 10 0RF Rx Instructions: Partial Fill upon patient request. acetaminophen-codeine 300-15 mg tablet 1 tab PO Q6H PRN (Reason: severe pain (scale score 7-10)) Qty: 10 0RF No Action Eliquis 5 mg Tablet 5 mg PO BID Qty: 60 0RF aripiprazole [Abilify] 5 mg Tablet 2.5 mg PO DAILY Qty: 30 0RF trazodone 50 mg tablet 25 mg PO BEDTIME Qty: 30 0RF albuterol sulfate 90 mcg/actuation HFA aerosol inhaler 2 puff INHALATION QID PRN (Reason: Shortness Of Breath Or Wheezing) Qty: 8.5 0RF acetaminophen [Arthritis Pain Relief (acetam)] 650 mg tablet extended release 650 mg PO Q6H PRN (Reason: fever) gabapentin 100 mg capsule PO omeprazole 20 mg capsule,delayed release(DR/EC) 20 mg PO DAILY Referrals: [facility] Orthopedic Surgeons [Provider Group] Referral Note: fracture fifth metatarsal (pseudo-rm) Interventions: ED Discharge Assessment Last Done: 08/23/24 18:25 Discharge Date/Time: 08/23/24 18:26 Print Language: Czech
[2024-08-23 14:29] LABS: MANUAL DIFF FLAG NO
[2024-08-23 14:30] LABS: Hematocrit 44.8 % (42.0-52.0); Hemoglobin 14.6 g/dl (14.0-18.0); Imm Gran Abs Auto 0.02 X10*3/uL (0.00-0.03); Imm Gran Pct Auto 0.3 % (0.0-0.4); Lymphocytes Absolute Auto 1.4 X10*3/uL (1.2-4.9); Mean Corpuscular HGB Conc 32.6 g/dl (31.0-36.0); Mean Corpuscular Hemoglobin 27.8 pg (27.0-33.0); Mean Corpuscular Volume 85.3 fL (80.0-98.0); NRBC Abs Auto 0.000 X10*3/uL (0.0-0.012); NRBC Pct Auto 0.0 /100WBC (0.0-0.2); Platelet Count 340 X10*3/uL (160-400); Red Blood Count 5.25 X10*6/uL (4.60-5.80); White Blood Count 7.8 X10*3/uL (4.8-10.8)
[2024-08-23 14:44] LABS: Alanine Aminotransferase 32 U/L (0-40); Albumin Level 4.1 g/dL (3.5-5.0); Alkaline Phosphatase 119 U/L (39-117); Anion Gap 10 (12-20); Aspartate Amino Transferase 21 U/L (5-37); Blood Urea Nitrogen 15 mg/dL (9-16); Calcium 9.3 mg/dL (8.4-10.2); Carbon Dioxide 23 mmol/L (22-29); Chloride 109 mmol/L (96-108); Creatinine Clr Calc Pharmacy 59.6; Estimated Glomerular Filt Rate 39; Magnesium 2.2 mg/dL (1.6-2.6); Potassium 4.1 mmol/L (3.3-5.1); Sodium 138 mmol/L (135-145); Total Protein 7.5 g/dL (6.5-8.0)
[2024-08-23 14:49] LABS: B Type Natriuretic Peptide 18 pg/mL (<100)
--- OUTSIDE RECORDS SUMMARY | 2024-08-23 15:40 | XMS_ITS | Continuity of Care Document ---
Author Name Jarrett Mandel Address [address] [place] [id number] Organization Unknown Address [address] [place] [id number] Medications No known medications Problems No known problems
--- OUTSIDE RECORDS SUMMARY | 2024-08-23 15:40 | XMS_ITS | Encounter Summary ---
Author Organization [employer] Address [address] [place] [address] [address] [place] [address] Care Team Providers Care Water [employer]i F[employer] Operator Name Role Phone Name, Haresh ELLIOTT Primary Care Provider Bruce Dumas Unavailable Unavailable Reason for Visit * Reason Onset Date Comments No Show 10/06/2022 Encounter Details Date Type Department Care Team ([facility] st Contact Info) Description 10/06/2022 Telephone [facility] [address] [place] [address] Name, MD Haresh [address] [place] [address] No Show Social History Tobacco Use Types [...] accepted this outcome Please contact pt at [phone] documented in this encounter Plan of Treatment Upcoming Encounters Date Type Department Care Team (Late st Contact Info) Description 08/25/2024 3:45 PM EDT Office Visit [facility] [address], [place] [phone] Jordi Caro CNP [address] [place], [place] [phone] documented as of this encounter Visit Diagnoses Not on filedocumented in this encounter Additional Health Concerns Assessment Noted Time PHQ-9 Depression Total Score: 17 023 4:02 PM EDT documented as of this encounter Care Teams [employer] Operator Relationship Specialty Start Date End Date Name, MD Haresh [address] [place] [address] PCP - General Family Medicine 09/08/18 Bruce Dumas FNP [address] [place] [address] Nurse Practitioner Family Medicine 01/11/23 Chapis [facility] 12/07/23 documented as of this encounter
--- OUTSIDE RECORDS SUMMARY | 2024-08-23 15:40 | XMS_ITS | Data Portability ---
Author Organization [facility], [facility] Address [address] [place] [address] Care Team Providers Care Process Developer Name Role Phone [facility] OTHER [phone] [facility] OTHER Assessment Encounter Date Assessment Date Assessment LastModified by Organization Details LastModified Time 08/17/2024 08/17/2024 Mr. Martinez is a 54 yo M with Asthma, Diabetes Mellitus Type 2, Hypertension, Arrhythmias (e.g., Atrial Fibrillation) who is calling about intermittent chest pain. Per patient and medic, when he moves his L arm around, it worsens. Non radiating. Chest pain has been self resolving. Sharp chest pain. Feels like at times he has pleurisy and SOB. Gets it about 5 times a day when it happens. While at rest. No known exertional component. Has been intermittent throughout the week. No chest pain with medic. Also reporting tachycardia throughout the week. Palpitations as well. No cough or fevers. Non positional. No rash. EKG with medic without STEMI. But tachycardia. Vitals stable with medic. Drinking less than normal. Is allergic to ASA but takes eliquis. Taking all meds compliantly. Given the patient's risk factors, HEART score, and EKG, I do think he warrants in person ER evaluation. Currently chest pain free. ASA allergy. EKG notable for tachycardia. Could be PE: but reports compliance with eliquis. Could be NSTEMI, EKG negative for STEMI at this time and currently cp free. Considered also dehydration vs pericarditis vs endocarditis (no fevers though, so less likely infectious). Will need transfer. Plan: [facility]. Signed out at 1:45pm. Jarrett SARMIENTO I provided real -time medical direction via phone for this encounter, and was available for additional phone based assistance as needed. I have reviewed and agree with the Assessment and Plan as documented by the Sand Technologist. We discussed the diagnostic uncertainty of home visits and the risk associated with this. In this case the patient and I felt transfer to the ER was safest for disposition and continued care as their needs exceeded what could safely be supported in the home setting. [email or web address] Not available 08/17/2024 13:43:05 Plan of Treatment Reminders Order Date Submit Date Provider Last Modified By Organization Details Last Modified Time Details Appointments None recorded. Lab None recorded. Referral None recorded. Procedures None recorded. Surgeries None recorded. Imaging electrocard iogram 2024 025 [email or web address] [email or web address] [facility], [address] [place] [address], [id number] 13:27:04 Medication Orders None recorded. Patient TargetsNo targets recorded. Patient InstructionsNo instructions recorded. Reason for Referral None Reported. Results Created Date Observation Date Name Description Value Unit Range Abnormal Flag Note LastModifiedBy Organization Detail LastModifiedTime 08/18/1908/17/2024 danny belcher am No observ ation record ed. [facility] [address], [phone] 08/17/2024 14:58:58 Result Notes None recorded. Medical Equipment None Reported. Allergies Allergen ID Allergen Name Allergen Category Reaction Reaction Severity Criticality Documentation Date Start Date Code Code System Note Provider Name and Address Organization Details Recorded Time 64123 clonazepa m medicatio n Not available Not available Not available 08/17/2024 2598 RxNorm Not Available [facility] - production 12:18:59 80568 morphine medicatio n Not available Not available Not available 08/17/2024 7052 RxNorm Not Available [facility] - production 12:18:59 19908 aspirin medicatio n Not available Not available Not available 08/17/2024 1191 RxNorm Not Available [facility] production 12:18:59 Medications Name Sig Start Date Stop Date Status Note LastModified by Organization Details LastModified Time trazodone 50 mg tablet TAKE 1/2 TABLET BY MOUTH AT BEDTIME active Not Available Not Available No t Available acetaminophen ER 650 mg tablet,extend ed release TAKE 1 TABLET BY MOUTH EVERY 8 HOURS NEEDED FOR MILD PAIN. DO NOT BREAK, CRUSH, DISSOLVE OR CHEW active Not Available Not Available No t Available sertraline 25 mg tablet TAKE 1/2 TABLET BY MOUTH EVERY DAY active Not Available Not Available No t Available omeprazole 20 mg capsule,delay ed release TAKE 1 CAPSULE BY MOUTH EVERY DAY BEFORE BREAKFAST DO NOT BREAK, CRUSH, DISSOLVE OR CHEW active Not Available Not Available No t Available gabapentin 100 mg capsule TAKE 1 CAPSULE BY MOUTH TWICE DAILY active Not Available Not Available No t Available albuterol sulfate HFA 90 mcg/actuation aerosol inhaler INHALE 2 PUFFS BY MOUTH FOUR TIMES DAILY NEEDED FOR COUGH, WHEEZING, OR SHORTNESS OF BREATH active Not Available Not Available No t Available aripiprazole 5 mg tablet TAKE 1/2 TABLET BY MOUTH EVERY DAY active Not Available Not Available No t Available chlorhexidine gluconate 0.12 % mouthwash RINSE 15 ML IN MOUTH OR THROAT FOR 30 SECONDS, SWISH AND SPIT OUT NEEDED FOR UP TO 14 DAYS. DO NOT SWALLOW. active Not Available Not Available No t Available Eliquis 5 mg tablet TAKE 1 TABLET BY MOUTH TWICE DAILY active Not Available Not Available No t Available Vitals Date Recorded Respiratory rate Body temperature Oxygen saturation Oxygen saturation in Arterial blood by Pulse oximetry Heart rate Systolic And Diastolic Provider Name and Address Organization Details Last Updated DateTime 16 /min 97.1 [degF] 98 % 98 % 102 /min 160/98 mm[Hg] Not Available [facility] 13:20:38 Social History None recorded. Functional Status None recorded. Mental Status None recorded. Family History Nothing Reported. Medical History No medical history recorded. Past Encounters Encounter ID Performer Location Encounter Start Date Encounter Closed Date Diagnosis/Indication Diagnosis SNOMED-CT Code Diagnosis ICD10 Code Diagnosis Note [id number] SOLANGE BRISENO MD Main[facility]inst [facility] Medical [facility] [address] [place] [address] 08/17/2024 13:20:27 08/17/2024 14:24:41 Chest pain 18827147 R07.9 Health Concerns Section Related Observation LastModified by Organization Detai ls LastModified Time None Recorded Concern Status LastModified by Organization Details LastModified Time None Recorded Advance Directives Directive None Recorded Payers Insurance Date Sequence Insurance Name Policy Number Policy Doss Covered Member ID Doss Member ID Guarantor Name 08/17/2024 1 [facility] - DOS ON OR AFTER 2022 - DUAL ELIGIBLE - USP OPTIONS AND ONE CARE (MEDICARE REPLACEMENT/ADV ANTAGE - HMO) Jason Martinez [id number] Jason Martinez Notes Date Note Type Note Provider Name and Address Organization Details Recorded Time 08/17/2024 text/html HPI: Patient with extensive history including Tachycardia and chest pain.Patient called in for elevated heart rate rate unknown. Has occasional shooting pain left chest. Not present at time of call. Neuropathy pain worsening. ( PCP Team updated need for appt to follow). .................. .................. .................. .................. .................. .................. .................. ............... [facility] Nurse Triage Notes (Carey Fuller): Chief Complaints: Chest Pain, Diabetes Related, Heart Rate Problems PMH: Asthma, Diabetes Mellitus Type 2, Hypertension, Arrhythmias (e.g., Atrial Fibrillation) PMH Reviewed at 08/17/2024 - 12:18 Allergies Reviewed at 08/17/2024 - 12:18 Comments: HPI reviewed Sand Technologist Organization Information for Eugene Snowden Legal Name: [employer]. Address: [address] [place] [address], Phlebotomist Supervisor/Instructor: Byron Todd MD CLIA No.: [id number] Sand Technologist POC Test Results from Eugene Snowden EKG (13:11:38) EKG test performed. Attachments uploaded as part of this test result can be found under Documents section. .................. .................. .................. .................. .................. .................. .................. ............... Sand Technologist Note From Eugene Snowden: Pt seen for primary complaint of chest pain. Met TAFOYA x 4 Pt, ambulatory inside his residence. Pt reports intermittent chest pain for the past 7-10 days. Pt reports he has approx 5 episodes of CP a day lasting from 30 - 90 minutes. Pt reports the pain often starts at rest and is self resolved with rest. Pt reports pain increased when moving his L arm. Pt reports the pain to be non radiating, sharp in nature. Pt also reports palpitations with SOB when experiencing the pain. Pt currently denies any CP or SOB. Pt reports increase in pain in lower legs bilaterally due to his peripheral neuropathy, Pt reports he has been dealing with increase in pain for approx 6 months. Pt denies all other complaints. Pt exam unremarkable. LS clear in all corrales. No CP with any palpation or movement. Pt not diaphoretic, skin PWD. Strong, regular radial pulse. VS as noted. Pt placed on lunchroom monitor showing NSR with no ectopy. 12 lead non diagnostic. [facility] contacted and advised of Pt complaint, presentation and exam findings. [facility] request Pt be sent to ED, Pt request to go to [facility], [facility] informed of this. EMS called via 911, Pt care and transport turned over to ALS crew with [facility], call closed. .................. .................. .................. .................. .................. .................. .................. ............... [facility] Consulted: Solange Briseno .................. .................. .................. .................. .................. .................. .................. ............... Disposition: Fulfilled SOLANGE BRISENO MD [address] [facility],[address] [facility], [place], [address], JEFE BERG 08/17/2024 14:19:36
[2024-08-23 18:25] VITALS: BP 00/00; PULSE 115; RESP 16; TEMP 36.9; O2SAT 98
== END 2024-08-23 18:26 | disposition home or self-care (01) ==
PROVIDERS: Physician Assistant Medical; Emergency Provider Emergency Medicine
DX: S92.351A Displaced fracture of fifth metatarsal bone, right foot, initial encounter for closed fracture (principal); S93.401A Sprain of unspecified ligament of right ankle, initial encounter; M25.571 Pain in right ankle and joints of right foot; X50.1XXA Overexertion from prolonged static or awkward postures, initial encounter; Y93.9 Activity, unspecified; Y92.832 Beach as the place of occurrence of the external cause; Y99.8 Other external cause status; Z79.899 Other long term (current) drug therapy; Z87.891 Personal history of nicotine dependence
CPT/HCPCS: 36415; 73610; 73630; 80053; 83735; 83880; 85025; 99282; 99283

== ENCOUNTER → 2024-08-23 14:06 | Outpatient (BNV) | payer OTHER, SELFPAY | PROVIDERS: Visit Provider Radiology Diagnostic Radiology | DX: M25.571 Pain in right ankle and joints of right foot (principal) | CPT/HCPCS: 73610; 73630 ==

== ENCOUNTER 2024-09-08 08:25 | Outpatient (REF) | payer OTHER, SELFPAY ==
--- NOTE | ~2024-09-08 | XR_ITS ---
EXAMINATION: XR FOOT, RIGHT CLINICAL INFORMATION: M79.671 - Pain in right foot COMPARISON: August 23, 2024 TECHNIQUE: AP, lateral, and oblique views of the right foot. FINDINGS: Again seen is an avulsion fracture involving the fifth metatarsal tarsal tuberosity extending to the lateral tarsometatarsal joint space. Fracture line is slightly more evident on the supine view consistent with early healing. There is no interval change in alignment. There are no other changes. Hallux valgus deformity is again noted with small marginal osteophytes involving the first MTP joint and sesamoids. Calcaneal osteophytes are noted. There are also osteophytes involving the tibial plafond. XR/XR foot RT 2V IMPRESSION: Early healing of a pseudo-Rea fracture involving the right foot. Hallux valgus deformity with mild first MTP joint osteoarthritis.. Electronically signed by: Arnoldo Arcos MD 09/08/2024 12:04 PM EDT
--- OUTSIDE RECORDS SUMMARY | 2024-09-08 08:36 | XMS_ITS | Encounter Summary ---
Author Organization [employer] Address [address] [place] [address] [address] [place] [address] Care Team Providers Care Data Modeler Name Role Phone Name, Haresh ELLIOTT Primary Care Provider [phone] Bruce Dumas Unavailable Unavailable Reason for Visit * Reason Onset Date Comments No Show 10/06/2022 Encounter Details Date Type Department Care Team ([facility] st Contact Info) Description 10/06/2022 Telephone [facility] [address] [place] [address] Name, MD Haresh [address] [place] [address] No Show Social History Tobacco Use Types [...] accepted this outcome Please contact pt at [phone] documented in this encounter Plan of Treatment Not on file documented as of this encounter Visit Diagnoses Not on filedocumented in this encounter Additional Health Concerns Assessment Noted Time PHQ-9 Depression Total Score: 17 023 4:02 PM EDT documented as of this encounter Care Teams Data Modeler Relationship Specialty Start Date End Date Name, MD Haresh [address] [place] [address] PCP - General Family Medicine 09/08/18 Bruce Dumas FNP [address] [facility] [place] [address] Nurse Practitioner Family Medicine 01/11/23 Chapis [facility] 12/07/23 documented as of this encounter
== END 2024-09-08 08:26 | disposition home or self-care (01) ==
LOC: HO.HOSX 08:25
PROVIDERS: Visit Provider Physician Assistant
DX: S92.351A Displaced fracture of fifth metatarsal bone, right foot, initial encounter for closed fracture (principal); M79.671 Pain in right foot; Z79.899 Other long term (current) drug therapy; W01.0XXA Fall on same level from slipping, tripping and stumbling without subsequent striking against object, initial encounter
CPT/HCPCS: 73620; 99202

== ENCOUNTER 2024-09-08 11:03 | Outpatient (AMB) | payer OTHER, SELFPAY ==
[2024-09-08 11:43] VITALS: BMI 41.4
--- NOTE | 2024-09-08 11:43 | A.OFFVIS_ITS ---
Vital Signs 09/08/24 11:43 Height 5 ft 8 in Weight 272 lb BMI 41.4 Intake Visit Reasons: FC-Rt ankle 5th metatarsal fx DOI: 08/23/24 Intake Note: Jason is a 54 year old male who presents today for an ER follow up of right 5th metatarsal fx DOI: 08/23/24. Patient presented to [facility] ER the following day after he had a trip and fall from a sitting to standing postition causing him to roll his ankle. X-rays were taken, and he was placed in a walking boot. Patient reports swelling has improved, however he complains of constant pain in the lateral aspect of the foot and in the small toe area. He also states numbness and tingling in the 1st, 2nd, and 3rd metatarsal. has taken Tylenol-codeine, with relief. Denies any previous treatment since last visit. Allergies aspirin (ASPIRIN) Allergy (Unknown, Verified 09/08/24 11:56) SWELLING, NAUSEA, VOMITING Medication List - Last Reconciled 09/08/24 by Stephy Thompson PA-C acetaminophen ER (Arthritis Pain Relief (acetaminophen) ER) 650 mg PO Q6H PRN acetaminophen-codeine 300-15 mg 1 tab PO Q6H PRN albuterol sulfate 90 mcg/actuation 2 puffs inhalation QID PRN apixaban (Eliquis) 5 mg PO BID aripiprazole (Abilify) 2.5 mg (1/2 x 5 mg) PO DAILY gabapentin mg PO morphine 15 mg PO Q4-6H PRN omeprazole 20 mg PO DAILY trazodone 25 mg (1/2 x 50 mg) PO BEDTIME HPI HPI FC-Rt ankle 5th metatarsal fx DOI: 08/23/24: Details: 54-year-old gentleman presents to the office today for an injury he sustained to his right ankle on 08/23/2024. He states he rolled his ankle and he fell injuring the right foot. He was seen in the emergency department where x-rays were obtained and he was given a boot weightbearing as tolerated. Since the incident he has weaned himself from the boot and he is walking with a regular street shoe. He states the pain is improving however he does have some occasional discomfort along the lateral edge. [facility] Medical History Tobacco dependence syndrome Rectal hemorrhage Prostatism Palpitations Nausea Leg edema, left Hyperglycemia Homeless History of COVID-19 Heartburn Essential hypertension Depressive disorder Chronic pain of left knee Chronic lower back pain Chest pain Asthma Amnesia Surgical History Umbilical hernia (04/01/23) History of surgery on lower extremity History of surgery on arm Family History Mother Heart disease Diabetes Dementia Brainstem hemorrhage Father No problems noted. Social History Alcohol intake: former Comment: counts correct Patient Tobacco Use Status: Former Tobacco user service: No Review of Systems Const All systems reviewed & are unremarkable except as noted in HPI and below Physical Exam Vital Signs: BMI result Body Mass Index 41.4 Const General: cooperative and no acute distress Orientation/consciousness: patient oriented x3 Resp Effort & Inspection: normal respiratory effort and able to speak in complete sentences Cardio Peripheral pulses: Peripheral pulses 2+ throughout Neuro General: patient oriented x3 Extrem Other: Left foot skin intact. There is some scant bruising of the lateral edge of the left foot. There is tenderness at the base of the 5th metatarsal. Sensation intact. EHL intact. No pain along the mediolateral malleolus. Neurovascularly intact. Office Procedures AMB Fracture Care Fracture Billing Code: Fracture Billing Code Results Reviewed Results Reviewed: XR foot RT 2V IMPRESSION: Early healing of a pseudo-Rea fracture involving the right foot. Assessment & Plan Assessment & Plan (1) Fracture of fifth metatarsal bone of right foot: Code(s): S92.351A - Displaced fracture of fifth metatarsal bone, right foot, initial encounter for closed fracture Category: Medical Qualifiers: Encounter type: initial encounter Fracture type: closed Plan: We discussed options which includes the transition to regular street shoes based on his comfort. I explained he will need something that has a stiff sole shoe but also allows for room when he has swelling. He can increase activities as tolerated. I did educate him on the healing process which is typically the 1st 6 weeks after injury is when there is bridging between the fracture sites and then the following 6 weeks is when the fracture become strong. He is understanding of this. I did recommend elevation above heart level to help with swelling and icing. He states he can not take anti-inflammatories therefore he will use [id number] Tylenol for his discomfort. If symptoms persist or worsen over the next 6-8 weeks she will contact our office otherwise he will follow up as needed. Orders: Orders XR foot RT 2V Today M79.671 - Pain in right foot Coding Level of Care Code New Pt Level 3 (73168) Complex EM visit Add On G2211 Diagnoses Fracture of fifth metatarsal bone of right foot S92.351A Encounter type: initial encounter Fracture type: closed CPT Codes Fracture Care - Fracture Billing Code: Fracture Billing Code ([id number])
== END 2024-09-08 12:18 | disposition home or self-care (01) ==
LOC: HO.HOS 11:04
PROVIDERS: Visit Provider Physician Assistant
DX: S92.351A Displaced fracture of fifth metatarsal bone, right foot, initial encounter for closed fracture (principal)
CPT/HCPCS: 99203; G2211

== ENCOUNTER → 2024-09-08 11:13 | Outpatient (BNV) | payer OTHER, SELFPAY | PROVIDERS: Visit Provider Radiology Diagnostic Radiology | DX: M20.11 Hallux valgus (acquired), right foot (principal) | CPT/HCPCS: 73620 ==

== ENCOUNTER 2024-10-04 15:07 | Outpatient (AMB) | payer OTHER, SELFPAY ==
[2024-10-04 15:11] VITALS: BP 109/67; PULSE 121; O2SAT 97; BMI 43.8
--- NOTE | 2024-10-04 15:11 | A.OFFVIS_ITS ---
Vital Signs 10/04/24 15:11 Height 5 ft 8 in Weight 288 lb BMI 43.8 BP 109/67 Blood Pressure Location Lt brachial Position Sitting Pulse 121 H Pulse Source Pulse Oximeter Pulse Oximetry (%) 97 Oxygen Delivery Method Room Air Intake Visit Reasons: Abnormal Chest X Ray Allergies aspirin (ASPIRIN) Allergy (Unknown, Verified 10/04/24 15:17) SWELLING, NAUSEA, VOMITING HPI HPI Abnormal Chest X Ray: Details: 54-year-old gentleman, active approximately 15 pack-year smoker with underlying obesity, BRONSON, CKD, AFib on Eliquis recently evaluated in the emergency room for dyspnea and noted to have abnormal chest x-ray with elevation of possible right- sided lung mass and has been referred for further follow-up. Patient complains of intermittent dyspnea on exertion for which he is using Symbicort and albuterol MDI with suboptimal control of his symptoms. He denies family history of lung disease. [facility] Medical History Tobacco dependence syndrome Rectal hemorrhage Prostatism Palpitations Nausea Leg edema, left Hyperglycemia Homeless History of COVID-19 Heartburn Essential hypertension Depressive disorder Chronic pain of left knee Chronic lower back pain Chest pain Asthma Amnesia Surgical History Umbilical hernia (04/01/23) History of surgery on lower extremity History of surgery on arm Family History Mother Heart disease Diabetes Dementia Brainstem hemorrhage Father No problems noted. Social History Alcohol intake: former Comment: counts correct Patient Tobacco Use Status: Former Tobacco user service: No Review of Systems Const Denies daytime sleepiness, Denies excessive sweating, Denies fatigue, Denies fever(s), Denies lethargy, Denies malaise, Denies night sweats, Denies snoring and Denies weight loss Eyes Denies blurry vision and Denies itchy eyes ENT Denies nasal congestion, Denies post nasal drip, Denies sinus pain, Denies sinus pressure and Denies other ( Thrush) Card Denies chest pain, Denies pedal edema, Denies dyspnea, Denies orthopnea and Denies paroxysmal nocturnal dyspnea Resp Denies cough, Denies hemoptysis, Denies excessive phlegm production, Denies dyspnea, Denies snoring and Denies wheezing GI Denies abdominal pain and Denies heartburn Musc Denies myalgias, Denies arthralgias and Denies joint swelling Skin/Breast Denies rash Neuro Denies memory loss and Denies seizure-like activity Psych Denies abnormal sleep pattern, Denies anxiety and Denies memory loss Endo Denies excessive sweating, Denies fatigue and Denies heat intolerance Yousif/Lymph Denies easy bruising Aller/Immun Denies itchy eyes, Denies seasonal rhinorrhea and Denies wheezing Physical Exam Vital Signs: Last Vital Signs Pulse 121 H 10/04/24 15:11 BP 109/67 10/04/24 15:11 Pulse Ox 97 10/04/24 15:11 Oxygen Delivery Method Room Air 10/04/24 15:11 BMI result Body Mass Index 43.8 Const General: no acute distress and alert Nutritional Appearance: obese Orientation/consciousness: Other orientation findings ( oriented) HEENT Head: Yes atraumatic Eyes General: appearance normal, both eyes and all related structures Sclerae: sclerae normal EOM: EOMs intact bilaterally Neck Neck: Yes supple Lymphatic: no lymphadenopathy noted Resp Effort & Inspection: normal respiratory effort and no use of accessory muscles Auscultation: clear to auscultation bilaterally Cardio Rate: regular rate Rhythm: regular rhythm Heart sounds: no gallops, no murmurs and no rubs Skin General skin exam: other ( warm) Extrem General: No clubbing, No cyanosis and No edema Assessment & Plan Assessment & Plan (1) Lung mass: Code(s): R91.8 - Other nonspecific abnormal finding of lung field Category: Medical Plan: Amount chest x-ray with demonstration of possible right-sided lung mass. Will obtain CT chest for further evaluation. (2) Dyspnea on exertion: Code(s): R06.09 - Other forms of dyspnea Category: Medical Plan: Likely underlying undiagnosed COPD. Will obtain full PFT. Continue current regimen of Symbicort and albuterol MDI. Orders: Orders CT chest wo IV con Today R91.8 - Other nonspecific abnormal finding of lung field PFT pulmonary function test Today R06.09 - Other forms of dyspnea Coding Level of Care Code New Pt Level 4 (36479) Diagnoses Lung mass R91.8 Dyspnea on exertion R06.09
--- OUTSIDE RECORDS SUMMARY | 2024-10-04 16:24 | XMS_ITS | Encounter Summary ---
Author Organization [employer] Address [address] [place] [address] 7t [place] [address] Care Team Providers Care Blending Line Attendant Name Role Phone Name, Haresh ELLIOTT Primary Care Provider [phone] Bruce Dumas Unavailable Unavailable Reason for Visit * Reason Comments Med Refill Encounter Details Date Type Department Care Team ([facility] st Contact Info) Description 02/18/2023 Refill [facility] [address] [place] [address] Montse Duffy MD [address] [place] [address] Uncomplicated opioid dependence (CMS/HCC) Social History Tobacco [...] with others, in a hotel, in a snf, living outside on the street, on a [...] as of this encounter Plan of Treatment Not on file documented as of this encounter Visit Diagnoses Diagnosis Uncomplicated opioid dependence (CMS/HCC) documented in this encounter Additional Health Concerns Assessment Noted Time PHQ-9 Depression Total Score: 16 023 9:35 AM EST documented as of this encounter Care Teams Blending Line Attendant Relationship Specialty Start Date End Date Name, MD Haresh [address] [place] [address] PCP - General Family Medicine 09/08/18 Bruce Dumas FNP [address] [place] [address] Nurse Practitioner Family Medicine 01/11/23 [place] [facility] 12/07/23 documented as of this encounter
--- OUTSIDE RECORDS SUMMARY | 2024-10-04 16:24 | XMS_ITS | Encounter Summary ---
Author Organization [employer] Address [address] [place] [address] 7t [place] [address] Care Team Providers Care Skip Operator Name Role Phone Name, Haresh ELLIOTT Primary Care Provider [phone] Bruce Dumas Unavailable Unavailable Reason for Visit * Reason Comments Med Refill Encounter Details Date Type Department Care Team ([facility] st Contact Info) Description 02/15/2023 Refill [facility] [address] [place], [place] [phone] Tracie Henry DO [address] [place] [address] Social History Tobacco Use Types Packs/Day Years [...] with others, in a hotel, in a jail, living outside on the street, on a [...] documented as of this encounter Care Teams Skip Operator Relationship Specialty Start Date End Date Name, MD Haresh [address] [place] [address] PCP - General Family Medicine 09/08/18 Bruce Dumas FNP [address] [place] [address] Nurse Practitioner Family Medicine 01/11/23 [place] [facility] 12/07/23 documented as of this encounter
--- OUTSIDE RECORDS SUMMARY | 2024-10-04 16:24 | XMS_ITS | Encounter Summary ---
Author Organization [employer] Address [address] [place] [address] 7t [place] [address] Care Team Providers Care Speech Writer Name Role Phone Name, Haresh ELLIOTT Primary Care Provider [phone] Bruce Dumas Unavailable Unavailable Reason for Visit * Reason Onset Date Comments No Show 10/06/2022 Encounter Details Date Type Department Care Team ([facility] st Contact Info) Description 10/06/2022 Telephone [facility] [address] [place] [address] Name, MD Haresh [address] [place] [address] No Show Social History Tobacco Use Types [...] accepted this outcome Please contact pt at [phone] documented in this encounter Plan of Treatment Not on file documented as of this encounter Visit Diagnoses Not on filedocumented in this encounter Additional Health Concerns Assessment Noted Time PHQ-9 Depression Total Score: 17 023 4:02 PM EDT documented as of this encounter Care Teams Speech Writer Relationship Specialty Start Date End Date Name, MD Haresh [address] [place] [address] PCP - General Family Medicine 09/08/18 Bruce Dumas FNP 230 [place] [address] Nurse Practitioner Family Medicine 01/11/23 [place] [facility] 12/07/23 documented as of this encounter
--- OUTSIDE RECORDS SUMMARY | 2024-10-04 16:24 | XMS_ITS | Encounter Summary ---
Author Organization [employer] Address [address] [place] [address] 7t [place] [address] Care Team Providers Care Steam Drier Tender Name Role Phone Name, Haresh ELLIOTT Primary Care Provider [phone] Bruce Dumas Unavailable Unavailable Reason for Visit * Reason Onset Date Comments Hospital Follow-up 12/09/2023 Encounter Details Date Type Department Care Team ([facility] Contact Info) Description 12/09/2023 Telephone [facility] [address] [place] [address] Name, MD Haresh [address] [place] [address] Hospital Follow-up Social History Tobacco Use Types [...] from pt requesting a HDF appt. Hospital: [facility] Date of admission: States about 5 months ago Discharge date: 12/08/23 Diagnosed: mild stroke documented in this encounter Plan of Treatment Not on file documented as of this encounter Visit Diagnoses Not on filedocumented in this encounter Additional Health Concerns Assessment Noted Time PHQ-9 Depression Total Score: 16 023 9:35 AM EST documented as of this encounter Care Teams Steam Drier Tender Relationship Specialty Start Date End Date Name, MD Haresh [address] [place] [address] PCP - General Family Medicine 09/08/18 Bruce Dumas FNP [address] [place] [address] Nurse Practitioner Family Medicine 01/11/23 [facility] 12/07/23 documented as of this encounter
--- OUTSIDE RECORDS SUMMARY | 2024-10-04 16:24 | XMS_ITS | Encounter Summary ---
Author Organization [employer] Address [address] [address] 7t [place] [address] Care Team Providers Care Manager Safe Name Role Phone Name, Haresh ELLIOTT Primary Care Provider [phone] Bruce Dumas Unavailable Unavailable Reason for Visit * Reason Onset Date Comments FYI 12/09/2023 Encounter Details Date Type Department Care Team ([facility] st Contact Info) Description 12/09/2023 Telephone [facility] [address] [place], [place] [phone] Name, MD Haresh [address] [place] [address] FYI Social History Tobacco Use Types Packs/Day [...] - 12/09/2023 4:16 PM EDT Tc from [facility] to inform pcp they have started PT services with pt. documented in this encounter Plan of Treatment Not on file documented as of this encounter Visit Diagnoses Not on filedocumented in this encounter Additional Health Concerns Assessment Noted Time PHQ-9 Depression Total Score: 16 023 9:35 AM EST documented as of this encounter Care Teams Manager Safe Relationship Specialty Start Date End Date Name, MD Haresh [address] [place] [address] PCP - General Family Medicine 09/08/18 Bruce Dumas FNP [address] [place] [address] Nurse Practitioner Family Medicine 01/11/23 [facility] 12/07/23 documented as of this encounter
--- OUTSIDE RECORDS SUMMARY | 2024-10-04 16:24 | XMS_ITS | Encounter Summary ---
Author Organization [employer] Address [address] [place] [address] 7t [place] [address] Care Team Providers Care Lead Software Development Engineer Name Role Phone Name, Haresh ELLIOTT Primary Care Provider [phone] Bruce Dumas Unavailable Unavailable Reason for Visit * Reason Onset Date Comments Appointment Request 03/15/2024 Encounter Details Date Type Department Care Team ([facility] st Contact Info) Description 03/15/2024 Telephone [facility] [facility] MEDICINE [address] [place], [place] [phone] Name, MD Haresh [address] [place] [address] Appointment Request Social History Tobacco Use Types [...] on a recall list. Contact pt at [phone] documented in this encounter Plan of Treatment Not on file documented as of this encounter Visit Diagnoses Not on filedocumented in this encounter Additional Health Concerns Assessment Noted Time PHQ-9 Depression Total Score: 16 023 9:35 AM EST documented as of this encounter Care Teams Lead Software Development Engineer Relationship Specialty Start Date End Date Name, MD Haresh [address] [place] [address] PCP - General Family Medicine 09/08/18 Bruce Dumas FNP [address] [place] [address] Nurse Practitioner Family Medicine 01/11/23 [facility] 12/07/23 documented as of this encounter
--- OUTSIDE RECORDS SUMMARY | 2024-10-04 16:24 | XMS_ITS | Encounter Summary ---
Author Organization [employer] Address [address] [place] [address] 7t [place] [address] Care Team Providers Care Swiss Machinist Name Role Phone Name, Haresh ELLIOTT Primary Care Provider [phone] Bruce Dumas Unavailable Unavailable Reason for Visit * Reason Comments Med Refill Encounter Details Date Type Department Care Team ([facility] st Contact Info) Description 01/22/2022 Refill [facility] [address] [place] [address] Name, MD Haresh [address] [place] [address] Social History Tobacco Use Types Packs/Day Years [...] on filedocumented in this encounter Care Teams Swiss Machinist Relationship Specialty Start Date End Date Haresh Recinos MD [address] [place] [address] PCP - General Family Medicine 09/08/18 Bruce Dumas FNP [address] [facility] [place] [address] Nurse Practitioner Family Medicine 01/11/23 [place] [facility] 12/07/23 documented as of this encounter
--- OUTSIDE RECORDS SUMMARY | 2024-10-04 16:24 | XMS_ITS | Encounter Summary ---
Author Organization [facility] Address [address] [place] [address] Encounters * CPT with Jarrett Mandel at [facility] on 2024-08-17 Patient with extensive history including Tachycardia and chest pain. Patient called in for elevated heart rate rate unknown. Has occasional shooting pain left chest. Not present at time of call. Neuropathy pain worsening. ( PCP Team updated need for appt to follow). { patientReports : , denies :[], chiefComplaints : Chest Pain, Diabetes Related, Heart Rate Problems , pmh : Asthma, Diabetes Mellitus Type 2, Hypertension, Arrhythmias (e.g., Atrial Fibrillation) , allergies : Clonazepam, Morphine, Aspirin , otherAllergies : , painAssessment : , visitOutcome : , additionalComments : HPI reviewed } Pt seen for primary complaint of chest [...] reports the pain to be non radiating, sharpin nature. Pt also reports palpitations with SOB when experiencing the pain. Pt currently denies any CP or SOB. Pt reports increase in pain in lower legs bilaterally due to his peripheral neuropathy,Pt reports he has been dealing with increase in pain for approx 6 months. Pt denies all other complaints. Pt exam unremarkable. LS clear in all corrales. No CP with any palpation or movement. Pt not diaphoretic, skin PWD. Strong, regular radial pulse. VS as noted. Pt placed on supervisor accounting clerks showingNSR with no ectopy. 12 lead non diagnostic. [facility] contacted and advised of Pt complaint, presentationand exam findings. [facility] request Pt be sent to ED, Pt request to go to [facility], [facility] informedof this. EMS called via 911, Pt care and transport turned over to ALS crew with [facility], call closed. IV_(FLUIDS_AND/OR_MEDICATION), MEDICATION_IM, ORAL_MEDICATION, EKG, POC_BLOODWORK, POC_FLU_STREP, GLUCOSE, COVID_TEST Written by Jarrett Mandel on 2024-08-17
--- OUTSIDE RECORDS SUMMARY | 2024-10-04 16:24 | XMS_ITS | Clinical Summary ---
Author Organization [employer] Address [address] [place] [address] 7[address] [place] [address] Care Team Providers Care Clerk Entry Level Name Role Phone Name, Haresh ELLIOTT Primary Care Provider [phone] Bruce Dumas Unavailable Unavailable Allergies Active Allergy Reactions Criticality Noted Date Comments Aspirin 03/21/2014 Other reaction(s): SWELLING, NAUSEA, VOMITING Other Reaction(s): SWELLING, NAUSEA, VOMITING Clonazepam 05/27/2018 Morphine 05/27/2018 Medications * This document contains information received from the source organization and may not represent a complete record from that organization. naloxone (Narcan) 4 mg/0.1 mL nasal spray Administer 0.1 mL into affected nostril(s). 2 Active Alcohol Swabs (Alcohol Prep) padsIndications: Type 2 diabetes mellitus with hyperglycemia, without long-term current use of insulin ([facility]) Use as directed 100 each 3 3 Active Blood Glucose Monitoring Suppl (FreeStyle glucose monitoring) kitIndications:T ype 2 diabetes mellitus with hyperglycemia, without long-term current use of insulin ([facility]) Use as directed 1 each 3 Active albuterol 108 (90 Base) MCG/ACT inhalerIndicatio ns:Asthma, unspecified asthma severity, unspecified whether complicated, unspecified whether persistent INHALE 2 PUFFS BY MOUTH FOUR TIMES DAILY NEEDED 8.5 g 1 3 Active Lancets (OneTouch Delica Plus Uobgzd12C) miscIndications: Type 2 diabetes mellitus with hyperglycemia, without long-term current use of insulin ([facility]) TEST BLOOD SUGAR TWICE DAILY 100 each 11 3 Active lidocaine (Lidoderm) 5 % patchIndications :Chronic bilateral low back pain without sciatica APPLY 1 PATCH TOPICALLY TO SKIN, LEAVE ON FOR 12 HOURS AND OFF FOR 12 HOURS DIRECTED 30 patch 4 3 Active polyethylene glycol, PEG, 3350 (MiraLax) 17 GM/SCOOP powderIndication s:Constipation, unspecified constipation type 17g per package directions once daily as needed for constipation 238 g 3 Active ARIPiprazole (Abilify) 5 MG tablet Take 0.5 tablets by mouth Once per day. Active omeprazole OTC (PriLOSEC OTC) 20 MG EC tablet Take 1 tablet (20 mg) by mouth before breakfast. Do not crush, chew, or split. 30 tablet 11 5 026 Active gabapentin (Neurontin) 100 MG capsule Take 1 capsule (100 mg) by mouth 2 times daily. 60 capsule 3 5 026 Active acetaminophen (Tylenol 8 Hour) 650 MG ER tabletIndication s:Periodontal disease,History of tooth extraction, unspecified edentulism class Take 1 tablet (650 mg) by mouth every 8 (eight) hours if needed for mild pain. Do not crush, chew, or split. 30 tablet 2 5 Active traZODone (Desyrel) 50 MG tablet TAKE 1/2 TABLET BY MOUTH AT BEDTIME 15 tablet 5 Active sertraline (Zoloft) 25 MG tablet TAKE 1/2 TABLET BY MOUTH EVERY DAY 15 tablet 5 Active acetaminophen-co deine (Tylenol #2) 300-15 MG tablet Take 1 tablet by mouth. 5 Active nicotine polacrilex (Nicorette) 4 MG gumIndications:E ncounter for tobacco use cessation counseling Chew 1 each (4 mg) if needed for smoking cessation. 100 each 5 Active Active Problems Problem Noted Date Diagnosed Date Displaced fracture of fifth metatarsal bone, left foot, initial encounter for closed fracture 08/25/2024 Periodontal disease 05/26/2024 History of tooth extraction [...] on cardiology d/t consult during hospitalization at [facility] and no clear plan was indicated. At this time holding off on vascular d/t no record of duplex ultrasound from [facility], requested records today, depending on results [...] alcohol, no tobacco. Lives in residential program ([facility]) with daily groups but no prescriber. Not working currently, has applied for disability. Pt reports some improved mood but hallucinations are not controlled, and ?mild paranoia/delusional thinking. Will add Abilify 5 mg once daily. Continue Prozac 40 mg daily, Trazodone 150 mg at bedtime. He will continue with supportive living situation, with therapist, and with supports from [facility] clinician and others in [place] [...] alcohol, no tobacco. Lives in residential program ([facility]) with daily groups but no prescriber. Not working currently, has applied for disability. Pt reports possible early improvement with addition of Prozac, will now increase to Prozac 40 mg daily. Not sleeping as well, will increase to Trazodone 150 mg at bedtime. He will continue with supportive living situation, and with supports from [facility] clinician and others in [place] [...] alcohol, no tobacco. Lives in residential program ([facility]) with daily groups but no prescriber. Not working currently, has applied for disability. At this time he will continue Trazodone 100 mg at bedtime. Will start Prozac 20 mg daily. Explained that he would not notice improvement right away, would likely be 3-4 weeks before gradual improvement noted, so be patient. He will continue with supportive living situation, and with supports from [facility] clinician and others in [place] [...] Health Integration Plan Internal Follow up with [facility]. We contacted [facility], for [...] Encounters Date Type Department Care Team Description 09/08/2024 Orders Only [facility] MEDICINE [address] [place] [address] Jordi Caro CNP Lung mass (Primary Dx) 09/08/2024 Telephone [facility] [address] [place] [address] Jordi Caro CNP 08/25/2024 3:45 PM EDT Office Visit [facility] MEDICINE [address] [place] [address] Jordi Caro CNP Displaced fracture of fifth metatarsal bone, left foot, initial encounter for closed fracture (Primary Dx); Lung mass; Encounter for tobacco use cessation counseling 08/25/2024 Travel 08/24/[address] [address] Julia Magallon [place] Chart Prep 08/23/2024 Orders Only GENERIC EXTERNAL DATA DEPARTMENT Provider, Generic External Data 08/21/[address] [address] Haresh Recinos MD ER Follow-up 08/17/2024 Telephone [facility] MEDICINE [address] [place] [phone] Haresh Recinos MD Nurse Triage 07/04/2024 Refill [facility] PEDS [address] [place], [place] [phone] Haresh Recinos MD from Last 3 Months Immunizations Immunization Administration Dates Next Due Hep B, adult [...] the past 12 months, has t he [employer], gas, oil or water company threatened to [...] Sign Reading Time Taken Comments Blood Pressure 140/90 08/25/2024 3:59 PM EDT Pulse 118 08/25/2024 3:59 PM EDT Temperature 36.5 C (97.7 F) 08/25/2024 3:59 PM EDT Respiratory Rate 24 08/25/2024 3:59 PM EDT Oxygen Saturation 98% 08/25/2024 3:59 PM EDT Inhaled Oxygen Concentration - - Weight 130 kg (286 lb 6.4 oz) 08/25/2024 3:59 PM EDT Height 170.2 cm (5' 7 ) 08/25/2024 3:59 PM EDT Body Mass Index 44.86 08/25/2024 3:59 PM EDT Plan of Treatment Health Maintenance Due Date Last Done Comments CT Colonography 1971 Colonoscopy 1971 Colorectal Cancer Screening 1971 FIT DNA/Cologuard 1971 FIT 1971 FOBT 1971 Sigmoidoscopy 1971 Disability Screening 1971 Diabetes: Foot Exam 05/31/1981 Eye Exam 05/31/1981 DTaP/Tdap/Td Vaccines (1 - Tdap) 05/31/1990 Pneumococcal Vaccine: 50+ Years (1 of 2 - PCV) 05/31/1990 Hepatitis B Vaccines (2 of 3 - 19+ 3-dose series) 09/23/1999 08/26/1999 Zoster Vaccines (1 of 2) 05/31/2021 Depression Monitoring 07/23/2023 01/21/2023, 023 COVID-19 Vaccine (3 - 2023- season) 2023 10/16/2020, 08/07/2020 Lipid Panel 05/18/2024 05/19/2023 Diabetes: Hemoglobin A1C 10/04/2024 025, 12/24/2023, 12/21/2022, Additional history exists Influenza Vaccine (#1) 2024 Dental Oral Exam 10/12/2024 04/10/2024, , 12/05/2014 Dental Prophylaxis 10/12/2024 04/10/2024 SDOH Screening 12/08/2024 12/09/2023 Alcohol/Substance Use Screening 12/27/2024 12/28/2023 Dental X-Ray: Bitewings 04/11/2025 04/11/19, 11/06/2015, 12/05/2014 Diabetes: Urine Protein Screening 06/20/2025 06/20/2024, 05/19/2023 Tobacco Screening 08/25/2025 08/25/2024 Dental X-Ray: Full Mouth 04/12/2027 04/10/2024, 11/09 [...] patient's age to complete this topic Meningococcal B Vaccine Aged Out No l onger eligible based on patient's age to complete [...] Procedure Name Priority Date/Time Associated Diagnosis Comments B TYPE NATRIURETIC PEPTIDE (BNP) Routine 08/23/2024 2:25 PM EDT MAGNESIUM Routine 08/23/2024 2:25 PM EDT COMPREHENSIVE METABOLIC PANEL Routine 08/23/2024 2:25 PM EDT CBC WITH AUTO DIFFERENTIAL Routine 08/23/2024 2:25 PM EDT XR ANKLE 3+ VIEWS RIGHT Routine 08/23/2024 1:37 PM EDT XR FOOT 3+ VIEWS RIGHT Routine 1:35 PM EDT CREATININE, RANDOM URINE Routine 06/20/2024 1:30 PM EDT PROPHYLAXIS - ADULT Routine 04/10/2024 3:00 PM EST Dental calculus Dental plaque Periodontal disease INTRAORAL - COMPLETE SERIES OF RADIOGRAPHIC IMAGES Routine 04/10/2024 3:00 PM EST PERIODIC ORAL EVALUATION - ESTABLISHED PATIENT Routine 04/10/2024 3:00 PM EST Dental calculus Dental plaque Periodontal disease Encounter for dental examination POCT GLYCATED HEMOGLOBIN, TOTAL Routine 04/06/2024 9:27 [...] to Health Maintenance Results * (ABNORMAL) CBC auto differential (08/23/2024 2:25 PM EDT) White Blood Count 7.8 4.8 - 10.8 X10*3/uL [facility] Red Blood Count 5.25 4.60 - 5.80 X10*6/uL [facility] Hemoglobin 14.6 14.0 - 18.0 g/dl [facility] Hematocrit 44.8 42.0 - 52.0 % [facility] Mean Corpuscular Volume 85.3 80.0 - 98.0 fL [facility] Mean Corpuscular Hemoglobin 27.8 27.0 - 33.0 pg [facility] Mean Corpuscular HGB Conc 32.6 31.0 - 36.0 g/dl [facility] Red Cell Distribution Width 14.0 11.0 - 16.0 % [facility] Platelet Count 340 160 - 400 X10*3/uL [facility] Mean Platelet Volume 8.3(L) 9.4 - 12.4 fL [facility] Neutrophils Percent Auto 73.4(H) 45 - 73 % [facility] Imm Gran Pct Auto 0.3 0.0 - 0.4 % [facility] Lymphocytes Percent Auto 17.6(L) 20 - 40 % [facility] Monocytes Percent Auto 4.9 2 - 11 % [facility] Eosinophils Percent Auto 3.3 0 - 4 % [facility] Basophils Percent Auto 0.5 0 - 2 % [facility] NRBC Pct Auto 0.0 0.0 - 0.2 /100WBC [facility] Neutrophils Absolute Auto 5.7 2.0 - 8.3 x10*3/uL [facility] Imm Gran Abs Auto 0.02 0.00 - 0.03 X10*3/uL [facility] Lymphocytes Absolute Auto 1.4 1.2 - 4.9 X10*3/uL [facility] Monocytes Absolute Auto 0.4 0.1 - 1.2 X10*3/uL [facility] Eosinophils Absolute Auto 0.3 0.0 - 0.4 X10*3/uL [facility] Basophils Absolute Auto 0.0 0.0 - 0.2 X10*3/uL [facility] NRBC Abs Auto 0.000 0.0 - 0.012 X10*3/uL [facility] 08/23/2024 2:25 PM EDT 08/23/2024 2:27 PM EDT us Generic External Data Provider LAB BLOOD ORDERAB LES Final Result Performing Organization Address [facility] Co de Phone Number [facility] [address] [place] [phone] * B Type Natriuretic Peptide (BNP) (08/23/2024 2:25 PM EDT) B Type Natriuretic Peptide 18 <100 pg/mL [facility] 08/23/2024 2:25 PM EDT 08/23/2024 2:27 PM EDT us Generic External Data Provider LAB BLOOD ORDERAB LES Final Result Performing Organization Address [facility] Co de Phone Number [facility] [address] [place] [phone] * Magnesium (08/23/2024 2:25 PM EDT) Magnesium 2.2 1.6 - 2.6 mg/dL [facility] 08/23/2024 2:25 PM EDT 08/23/2024 2:27 PM EDT us Generic External Data Provider LAB BLOOD ORDERAB LES Final Result Performing Organization Address [facility] Co de Phone Number [facility] [address] [place] [phone] * (ABNORMAL) Comprehensive Metabolic Panel (08/23/2024 2:25 PM EDT) Sodium 138 135 - 145 mmol/L [facility] Potassium 4.1 3.3 - 5.1 mmol/L [facility] Chloride 109(H) 96 - 108 mmol/L [facility] Carbon Dioxide 23 22 - 29 mmol/L [facility] Anion Gap 10(L) 12 - 20 [facility] Urea Nitrogen (BUN) 15 9 - 16 mg/dL [facility] Creatinine, Serum 1.83(H) 0.5 - 1.4 mg/dL [facility] Creatinine Clr Calc Pharmacy 59.6 [facility] Comment:eGFR (calculated fro m the MDRD study equation) and eCrCl(calculated from the Cockcroft-Gault equation) are based ondifferent parameters and may not yield comparable results.If eCrCl result is absurd, please check patient'sheight/weight. Estimated Glomerular Filt Rate 39 [facility] Comment:Chronic Kidney Disea se: Estimated GFR < 60 mL/min/1.28f9Fbcnfe Kidney Disease: Estimated GFR < 15 mL/min/1.73m2 Glucose 115 60 - 115 mg/dL [facility] Calcium 9.3 8.4 - 10.2 mg/dL [facility] Bilirubin, Total 0.2 0.0 - 1.0 mg/dL [facility] Aspartate Amino Transferase 21 5 - 37 U/L [facility] Alanine Aminotransferase 32 0 - 40 U/L [facility] Total Protein 7.5 6.5 - 8.0 g/dL [facility] Albumin Level 4.1 3.5 - 5.0 g/dL [facility] Alkaline Phosphatase 119(H) 39 - 117 U/L [facility] 08/23/2024 2:25 PM EDT 08/23/2024 2:27 PM EDT us Generic External Data Provider LAB BLOOD ORDERAB LES Final Result [facility] [address] [place] [phone] * XR Ankle 3+ Views Right (08/23/2024 1:37 PM EDT) Anatomical Region Laterality Modality Lower Extremities, Ankle Right Radiogr aphic Imaging 08/23/2024 1:37 PM EDT Narrative 08/23/2024 2:49 PM EDT [address] [address] XRay Report Signed Patient: Jason Martinez MR#: [id number] : 1970 Acct:[id number] Age/Sex: 54 / M ADM Date: 08/23/24 Loc: HO.ED Attending Dr: Ordering Physician: Deborah Nevarez Date of Service: 08/23/24 Procedure(s): XR ankle RT min 3V Accession Number(s): [id number] cc: [facility]; Deborah Nevarez EXAMINATION: XR ANKLE, RIGHT CLINICAL INFORMATION: rolled ankle swollen COMPARISON: None available. TECHNIQUE: AP, lateral, and mortise views of the right ankle. FINDINGS: No definitive fracture, dislocation, or suspicious bone lesion. 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 Mild osseous spurring of the medial and lateral malleoli. The mortise is intact. The talar dome is normal. The subtalar joints appear normal. There are moderate sized dorsal and plantar calcaneal spurs. There is circumferential soft tissue swelling. XR/XR ankle RT min 3V IMPRESSION: 1. No acute bony abnormalities of the right ankle. 2. There is diffuse soft tissue swelling. Electronically signed by: Michael Francisco MD 08/23/2024 02:45 PM EDT Dictated By: Michael Francisco MD Signed By: <Electronically signed by Michael Francisco MD in OV> 08/23/24 1445 DD/ 1337 TD/TT: 08/23/24 1440 Parole Agent: Procedure Note Donotuseinterpreter, Image - 08/23/[address] [address] XRay Report Signed Patient: Jason Martinez LMR#: [id number] : 1970Acct:[id number] Age/Sex: 54 / MADM Date: 08/23/24 Loc: HO.ED Attending Dr: Ordering Physician: Deborah Nevarez Date of Service: 08/23/24 Procedure(s): XR ankle RT min 3V Accession Number(s): [id number] cc: [facility]; Deborah Nevarez EXAMINATION: XR ANKLE, RIGHT CLINICAL INFORMATION: rolled ankle swollen COMPARISON: None available. TECHNIQUE: AP, lateral, and mortise views of the right ankle. FINDINGS: No definitive fracture, dislocation, or suspicious bone lesion. 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 Mild osseous spurring of the medial and lateral malleoli. The mortise is intact. The talar dome is normal. The subtalar joints appear normal. There are moderate sized dorsal and plantar calcaneal spurs. There is circumferential soft tissue swelling. XR/XR ankle RT min 3V IMPRESSION: 1. No acute bony abnormalities of the right ankle. 2. There is diffuse soft tissue swelling. Electronically signed by: Michael Francisco MD 08/23/2024 02:45 PM EDT Dictated By: Michael Francisco MD Signed By: <Electronically signed by Michael Francisco MD in OV> 08/23/24 1445 DD/ 1337 TD/TT: 08/23/24 1440 Parole Agent: us [facility] External Provider IMG XR PROCEDURES Final Result * XR Foot 3+ Views Right (08/23/2024 1:35 PM EDT) Anatomical Region Laterality Modality Lower Extremities, Foot Right Radiogra phic Imaging 08/23/2024 1:35 PM EDT Narrative 08/23/2024 2:51 PM EDT [address] XRay Report Signed Patient: Jason Martinez MR#: [id number] : 1970 Acct:[id number] Age/Sex: 54 / M ADM Date: 08/23/24 Loc: HO.ED Attending Dr: Ordering Physician: Deborah Nevarez Date of Service: 08/23/24 Procedure(s): XR foot RT min 3V Accession Number(s): [id number] cc: [facility]; Deborah Nevarez EXAMINATION: XR FOOT, RIGHT CLINICAL INFORMATION: rolled ankle, swollen [place] COMPARISON: None available. TECHNIQUE: AP, lateral, and oblique views of the right foot. FINDINGS: There is a lucency through the proximal tip of the fifth metatarsal tuberosity. Fracture line extends into the tarsometatarsal joint. There are small calcaneal spurs. Hallux valgus deformity is present. There are mild degenerative changes with narrowing of interphalangeal joints. There is juxta-articular osteopenia, nonspecific finding. Marginal osteophytes are present involving the tibial plafond, larger anteriorly. XR/XR foot RT min 3V IMPRESSION: Fifth metatarsal tuberosity avulsion (pseudo-Rea fracture). Mild degenerative changes. Hallux valgus deformity. Electronically signed by: Arnoldo Arcos MD 08/23/2024 02:48 PM EDT RP Dictated By: Arnoldo Arcos MD Signed By: <Electronically signed by Arnoldo Arcos MD in OV> 08/23/24 1448 DD/ 1335 TD/TT: 08/23/24 1440 Parole Agent: Procedure Note Donotuseinterpreter, Image - 08/23/[address] [address] XRay Report Signed Patient: Jason Martinez LMR#: [id number] : 1970Acct:[id number] Age/Sex: 54 / MADM Date: 08/23/24 Loc: HO.ED Attending Dr: Ordering Physician: Deborah Nevarez Date of Service: 08/23/24 Procedure(s): XR foot RT min 3V Accession Number(s): [id number] cc: [facility]; Deborah Nevarez EXAMINATION: XR FOOT, RIGHT CLINICAL INFORMATION: rolled ankle, swollen [place] COMPARISON: None available. TECHNIQUE: AP, lateral, and oblique views of the right foot. FINDINGS: There is a lucency through the proximal tip of the fifth metatarsal tuberosity. Fracture line extends into the tarsometatarsal joint. There are small calcaneal spurs. Hallux valgus deformity is present. There are mild degenerative changes with narrowing of interphalangeal joints. There is juxta-articular osteopenia, nonspecific finding. Marginal osteophytes are present involving the tibial plafond, larger anteriorly. XR/XR foot RT min 3V IMPRESSION: Fifth metatarsal tuberosity avulsion (pseudo-Rea fracture). Mild degenerative changes. Hallux valgus deformity. Electronically signed by: Arnoldo Arcos MD 08/23/2024 02:48 PM EDT Dictated By: Arnoldo Arcos MD Signed By: <Electronically signed by Arnoldo Arcos MD in OV> 08/23/24 1448 DD/ 1335 TD/TT: 08/23/24 1440 Parole Agent: [facility] External Provider IMG XR PROCEDURES Final Result * Creatinine, Random Urine (06/20/2024 1:30 PM EDT) Creatinine, Urine 411.85 mg/dL [facility] 06/20/2024 1:30 PM EDT 06/20/2024 1:40 PM EDT Generic External Data Provider LAB URINE ORDERAB LES Final Result [facility] [address] [place] [phone] * POCT HGB A1C (04/06/2024 9:27 AM EST) Hemoglobin A1C 5.8 4.0 - 6.0 % QC Media Lot # [id number] Lot# Expiration Date [id number] Blood 04/06/2024 9:27 AM EST us Haresh Recinos MD POINT OF CARE TEST ENTER/EDIT OR DERABLES Final Result * (ABNORMAL) Lipid Panel, Standard (05/19/2023 12:02 PM EDT) Triglycerides 379(H) <150 mg/dL [facility] Comment:Desirable Triglyceri de: less than 150 mg/dLBorderline High Triglyceride 150-199 mg/dLHigh Triglyceride: 200-499 mg/dLVery High Triglyceride: greater than or equal to 5OO mg/dL Cholesterol 217(H) <200 mg/dL [facility] Comment:Desirable Cholestero l: less than 200 mg/dLBorderline High Cholesterol: 200-239 mg/dLHigh Cholesterol: greater than 239 mg/dL LDL Cholesterol Calculated 114(H) <100 mg/dL [facility] Comment:Desirable LDL: less than 100 mg/dLNear Optimal/Above Optimal LDL: 110- 129 mg/dLBorderline High LDL: 130-159 mg/dLHigh LDL: 160-189 mg/dLVery High LDL: greater than or equal to 190 mg/dL HDL Cholesterol 28(L) >40 mg/dL [facility] Comment:Desirable HDL: great er than 40 mg/dL Note: This HDL assay may give artificially low results in patients with liver disease. Blood Venous blood specimen / Unknown 05/19/2023 12:02 PM EDT 05/19/2023 1:38 PM EDT us Haresh Recinos MD LAB BLOOD ORDERABLES Final Resul t [facility] [address] [place] [phone] * HEPATITIS C AB W/REFL TO HCV RNA, QN, PCR (11/27/2021 11:22 AM EDT) HEPATITIS C ANTIBODY NON-REACTI VE NON-REACT [facility]ICE [facility] INDEX 0.09 <1.00 [facility] Comment: HCV antibody was non-reactive. There is no laboratory evidence of HCV infection. In most cases, no further action is required. However, if recent HCV exposure is suspected, a test for HCV RNA (test code 54023) is suggested. For additional information please refer to http://education.eJamming/faq/NTB73l3 (This link is being provided for informational/ educational purposes only.) 11/27/2021 11:2 2 AM EDT Result Malini Duffy MD HISTORICAL/NON ORDERABLE LAB S Final Result [facility] * HIV 1/2 ANTIGEN/ANTIBODY,FOURTH GENERATION W/RFL (11/27/2021 11:22 AM EDT) HIV-1/2 ANTIGEN AND ANTIBODIES, 4TH GENERATION W/ REFLEX NON-REACT SHERICE NON-REACT [facility]ICE [facility] Comment: HIV-1 antigen and HIV-1/HIV-2 antibodies were not detected. There is no laboratory evidence of HIV infection. PLEASE NOTE: This information has been disclosed to you from records whose confidentiality may be protected by state law. If your state requires such protection, then the state law prohibits you from making any further disclosure of the information without the specific written consent of the person to whom it pertains, or as otherwise permitted by law. A general authorization for the release of medical or other information is NOT sufficient for this purpose. For additional information please refer to http://[employer].CX.[employer]/faq/SRR225 (This link is being provided for informational/ educational purposes only.) The performance of this assay has not been clinically validated in patients less than 2 years old. 11/27/2021 11:2 2 AM EDT us Montse Duffy MD LAB BLOOD ORDERABLES Final R esult [facility] from Last 3 Months or Most Recently Relevant to Health Maintenance Insurance [facility] [facility] < [address] [place] [phone] [address] - [facility] [address] [place] [phone] [place] [phone] Care Teams Clerk Entry Level Relationship Specialty Start Date End Date Name, MD Haresh [address] [place] [address] PCP - General Family Medicine 09/08/18 Bruce Dumas FNP [address] [place] [phone] Nurse Practitioner Family Medicine 01/11/23 [facility] 12/07/23
== END 2024-10-04 15:35 | disposition home or self-care (01) ==
LOC: HO.HPS 15:08
PROVIDERS: Visit Provider Internal Medicine Pulmonary Disease
DX: R91.8 Other nonspecific abnormal finding of lung field (principal); R06.09 Other forms of dyspnea
CPT/HCPCS: 99204

== ENCOUNTER → 2024-10-04 15:07 | Outpatient (BNVA) | payer OTHER, SELFPAY | PROVIDERS: Visit Provider Internal Medicine Pulmonary Disease | DX: R91.8 Other nonspecific abnormal finding of lung field (principal); R06.09 Other forms of dyspnea | CPT/HCPCS: 99202 ==

== ENCOUNTER 2024-10-27 10:05 | Outpatient (REF) | payer OTHER, SELFPAY ==
--- OUTSIDE RECORDS SUMMARY | 2024-10-27 10:39 | XMS_ITS | Encounter Summary ---
Author Organization [employer] Address [address] [place] [address] 7t [place] [address] Care Team Providers Care Athletics Teacher Name Role Phone Name, Haresh ELLIOTT Primary Care Provider [phone] Bruce Dumas Unavailable Unavailable Reason for Visit * Reason Onset Date Comments Appointment Request 03/15/2024 Encounter Details Date Type Department Care Team ([facility] st Contact Info) Description 03/15/2024 Telephone [facility] [address] [place], [place] [phone] Name, MD Haresh [address] [place] [address] Appointment Request Social History Tobacco Use Types [...] on a recall list. Contact pt at [phone] documented in this encounter Plan of Treatment Not on file documented as of this encounter Visit Diagnoses Not on filedocumented in this encounter Additional Health Concerns Assessment Noted Time PHQ-9 Depression Total Score: 16 023 9:35 AM EST documented as of this encounter Care Teams Athletics Teacher Relationship Specialty Start Date End Date Name, MD Harehs [address] [place] [address] PCP - General Family Medicine 09/08/18 Bruce Dumas FNP [address] [place] [phone] Nurse Practitioner Family Medicine 01/11/23 [facility] 12/07/23 documented as of this encounter
--- OUTSIDE RECORDS SUMMARY | 2024-10-27 10:39 | XMS_ITS | Clinical Summary ---
Author Organization [employer] Address [address] [place] [address] 7t [place] [address] Care Team Providers Care Window Shade Estimator Name Role Phone Name, Haresh ELLIOTT [...] hyperglycemia, without long-term current use of insulin ([facility]) Use as directed 100 each 3 3 Active Blood Glucose Monitoring Suppl (FreeStyle glucose monitoring) kitIndications:T ype 2 diabetes mellitus with hyperglycemia, without long-term current use of insulin ([facility]) Use as directed 1 each 3 Active albuterol 108 (90 Base) MCG/ACT inhalerIndicatio ns:Asthma, unspecified asthma severity, unspecified whether complicated, unspecified whether persistent INHALE 2 PUFFS BY MOUTH FOUR TIMES DAILY NEEDED 8.5 g 1 3 Active Lancets (OneTouch Delica Plus [id number]) miscIndications: Type 2 diabetes mellitus with hyperglycemia, without long-term current use of insulin ([facility]) TEST BLOOD SUGAR TWICE DAILY 100 each [...] on cardiology d/t consult during hospitalization at [facility] and no clear plan was indicated. At this time holding off on vascular d/t no record of duplex ultrasound from [facility], requested records today, depending on results will [...] alcohol, no tobacco. Lives in residential program ([facility]) with daily groups but no prescriber. Not working currently, has applied for disability. Pt reports some improved mood but hallucinations are not controlled, and ?mild paranoia/delusional thinking. Will add Abilify 5 mg once daily. Continue Prozac 40 mg daily, Trazodone 150 mg at bedtime. He will continue with supportive living situation, with therapist, and with supports from [facility] clinician and others in [place] program. [...] alcohol, no tobacco. Lives in residential program ([facility]) with daily groups but no prescriber. Not working currently, has applied for disability. Pt reports possible early improvement with addition of Prozac, will now increase to Prozac 40 mg daily. Not sleeping as well, will increase to Trazodone 150 mg at bedtime. He will continue with supportive living situation, and with supports from [facility] clinician and others in [facility] program. [...] alcohol, no tobacco. Lives in residential program ([facility]) with daily groups but no prescriber. Not working currently, has applied for disability. At this time he will continue Trazodone 100 mg at bedtime. Will start Prozac 20 mg daily. Explained that he would not notice improvement right away, would likely be 3-4 weeks before gradual improvement noted, so be patient. He will continue with supportive living situation, and with supports from [facility] clinician and others in [place] program. [...] Health Integration Plan Internal Follow up with [facility]. We contacted [facility], for intake [...] Department Care Team Description 09/08/2024 Orders Only [facility] MEDICINE [address] [place] [address] Jordi Caro CNP Lung mass (Primary Dx) 09/08/2024 Telephone [facility] [address] [place] [address] Jordi Caro CNP 08/25/2024 3:45 PM EDT Office Visit [facility] [place] [address] Jordi Caro CNP Displaced fracture of fifth metatarsal bone, left foot, initial encounter for closed fracture (Primary Dx); Lung mass; Encounter for tobacco use cessation counseling 08/25/2024 Travel 08/24/2024 Telephone [facility] [address] Julia Magallon MA Chart Prep 08/23/2024 Orders Only GENERIC EXTERNAL DATA DEPARTMENT Provider, Generic External Data 08/21/2024 Telephone [facility] [address] Haresh Recinos MD ER Follow-up 08/17/2024 Telephone [facility] [address] Haresh Recinos MD Nurse Triage from Last 3 Months Immunizations Immunization Administration [...] 2) 05/31/2021 Depression Monitoring 07/23/2023 01/21/2023, 023 Lipid Panel 05/18/2024 05/19/2023 Diabetes: Hemoglobin A1C 10/04/2024 025, 12/24/2023, 12/21/2022, Additional history exists COVID-19 Vaccine (2024- season) 2024 10/16/2020, 08/07/2020 Influenza Vaccine (#1) 2024 Dental Oral Exam 10/12/2024 04/10/2024, , 12/05/2014 Dental Prophylaxis 10/12/2024 04/10/2024 SDOH Screening 12/08/2024 12/09/2023 Alcohol/Substance Use Screening 12/27/2024 12/28/2023 Dental X-Ray: Bitewings 04/11/2025 04/11/19 25, 11/06/2015, 12/05/2014 Diabetes: Urine Protein Screening 06/20/2025 [...] PM EDT PROPHYLAXIS - ADULT Routine 04/10/2024 3 :00 [...] Blood Count 7.8 4.8 - 10.8 X10*3/uL [facility] Red Blood Count 5.25 4.60 - 5.80 X10*6/uL [facility] Hemoglobin 14.6 14.0 - 18.0 g/dl [facility] Hematocrit 44.8 42.0 - 52.0 % [facility] Mean Corpuscular Volume 85.3 80.0 - 98.0 fL [facility] Mean Corpuscular Hemoglobin 27.8 27.0 - 33.0 pg [facility] Mean Corpuscular HGB Conc 32.6 31.0 - 36.0 g/dl [facility] Red Cell Distribution Width 14.0 11.0 - 16.0 % [facility] Platelet Count 340 160 - 400 X10*3/uL [facility] Mean Platelet Volume 8.3(L) 9.4 - 12.4 fL [facility] Neutrophils Percent Auto 73.4(H) 45 - 73 % [facility] Imm Gran Pct Auto 0.3 0.0 - 0.4 % [facility] Lymphocytes Percent Auto 17.6(L) 20 - 40 % [facility] Monocytes Percent Auto 4.9 2 - 11 % [facility] Eosinophils Percent Auto 3.3 0 - 4 % [facility] Basophils Percent Auto 0.5 0 - 2 % [facility] NRBC Pct Auto 0.0 0.0 - 0.2 /100WBC [facility] Neutrophils Absolute Auto 5.7 2.0 - 8.3 x10*3/uL [facility] Imm Gran Abs Auto 0.02 0.00 - 0.03 X10*3/uL [facility] Lymphocytes Absolute Auto 1.4 1.2 - 4.9 X10*3/uL [facility] Monocytes Absolute Auto 0.4 0.1 - 1.2 X10*3/uL [facility] Eosinophils Absolute Auto 0.3 0.0 - 0.4 X10*3/uL [facility] Basophils Absolute Auto 0.0 0.0 - 0.2 X10*3/uL [facility] NRBC Abs Auto 0.000 0.0 - 0.012 X10*3/uL [facility] 08/23/2024 2:25 PM EDT 08/23/2024 2:27 PM EDT us Generic External Data Provider LAB BLOOD ORDERAB LES Final Result Performing Organization Address [facility] Co de Phone Number [facility] [address] [place] [phone] * B Type Natriuretic Peptide (BNP) (08/23/2024 2:25 PM EDT) B Type Natriuretic Peptide 18 <100 pg/mL [facility] 08/23/2024 2:25 PM EDT 08/23/2024 2:27 PM EDT Generic External Data Provider LAB BLOOD ORDERAB LES Final Result Performing Organization Address [facility] de Phone Number [facility] [address] [place] [phone] * Magnesium (08/23/2024 2:25 PM EDT) Magnesium 2.2 1.6 - 2.6 mg/dL [facility] 08/23/2024 2:25 PM EDT 08/23/2024 2:27 PM EDT Generic External Data Provider LAB BLOOD ORDERAB LES Final Result Performing Organization Address [facility] de Phone Number [facility] [address] [place] [phone] * (ABNORMAL) Comprehensive Metabolic Panel (08/23/2024 2:25 PM EDT) Sodium 138 135 - 145 mmol/L [facility] Potassium 4.1 3.3 - 5.1 mmol/L [facility] Chloride 109(H) 96 - 108 mmol/L [facility] Carbon Dioxide 23 22 - 29 mmol/L [facility] Anion Gap 10(L) 12 - 20 [facility] Urea Nitrogen (BUN) 15 9 - 16 mg/dL [facility] Creatinine, Serum 1.83(H) 0.5 - 1.4 mg/dL [facility] Creatinine Clr Calc Pharmacy 59.6 [facility] Comment:eGFR (calculated fro m the MDRD study equation) and eCrCl(calculated from the Cockcroft-Gault equation) are based ondifferent parameters and may not yield comparable results.If eCrCl result is absurd, please check patient'sheight/weight. Estimated Glomerular Filt Rate 39 [facility] Comment:Chronic Kidney Disea se: Estimated GFR < 60 mL/min/1.15b2Egwfzb Kidney Disease: Estimated GFR < 15 mL/min/1.73m2 Glucose 115 60 - 115 mg/dL [facility] Calcium 9.3 8.4 - 10.2 mg/dL [facility] Bilirubin, Total 0.2 0.0 - 1.0 mg/dL [facility] Aspartate Amino Transferase 21 5 - 37 U/L [facility] Alanine Aminotransferase 32 0 - 40 U/L [facility] Total Protein 7.5 6.5 - 8.0 g/dL [facility] Albumin Level 4.1 3.5 - 5.0 g/dL [facility] Alkaline Phosphatase 119(H) 39 - 117 U/L [facility] 08/23/2024 2:25 PM EDT 08/23/2024 2:27 PM EDT us Generic External Data Provider LAB BLOOD ORDERAB LES Final Result [facility] [address] [place] [phone] * XR Ankle 3+ Views Right (08/23/2024 1:37 PM EDT) Anatomical Region Laterality Modality Lower Extremities, Ankle Right Radiogr aphic Imaging 08/23/2024 1:37 PM EDT Narrative 08/23/2024 2:49 PM EDT [address] [address] XRay Report Signed Patient: Jason Martinez MR#: [id number] : 1970 Acct:[id number] Age/Sex: 54 / M ADM Date: 08/23/24 Loc: HO.ED Attending Dr: Ordering Physician: Deborah Nevarez Date of Service: 08/23/24 Procedure(s): XR ankle RT min 3V Accession Number(s): [id number] cc: [facility]; Deborah Nevarez EXAMINATION: XR ANKLE, RIGHT CLINICAL [...] 08/23/24 1445 DD/ 1337 TD/TT: 08/23/24 1440 Professional Housing Consultant: Procedure Note Donotuseinterpreter, Image - 08/23/[address] [address] XRay Report Signed Patient: Jason Martinez LMR#: [id number] : 1970Acct:[id number] Age/Sex: 54 / MADM Date: 08/23/24 Loc: HO.ED Attending Dr: Ordering Physician: Deborah Nevarez Date of Service: 08/23/24 Procedure(s): XR ankle RT min 3V Accession Number(s): [id number] cc: [facility]; Deborah Nevarez EXAMINATION: XR ANKLE, RIGHT CLINICAL [...] 08/23/24 1445 DD/ 1337 TD/TT: 08/23/24 1440 Professional Housing Consultant: [facility] External Provider IMG XR PROCEDURES Final Result * XR Foot 3+ Views Right (08/23/2024 1:35 PM EDT) Anatomical Region Laterality Modality Lower Extremities, Foot Right Radiogra phic Imaging 08/23/2024 1:35 PM EDT Narrative 08/23/2024 2:51 PM EDT [address] [address] XRay Report Signed Patient: Jason Martinez MR#: [id number] : 1970 Acct:[id number] Age/Sex: 54 / M ADM Date: 08/23/24 Loc: HO.ED Attending Dr: Ordering Physician: Deborah Nevarez Date of Service: 08/23/24 Procedure(s): XR foot RT min 3V Accession Number(s): [id number] cc: [facility]; Deborah Nevarez EXAMINATION: XR FOOT, RIGHT CLINICAL [...] 08/23/24 1448 DD/ 1335 TD/TT: 08/23/24 1440 Professional Housing Consultant: Procedure Note Donotuseinterpreter, Image - 08/23/[address] [address] XRay Report Signed Patient: Jason Martinez LMR#: [id number] : 1970Acct:[id number] Age/Sex: 54 / MADM Date: 08/23/24 Loc: HO.ED Attending Dr: Ordering Physician: Deborah Nevarez Date of Service: 08/23/24 Procedure(s): XR foot RT min 3V Accession Number(s): [id number] cc: [facility]; Deborah Nevarez EXAMINATION: XR FOOT, RIGHT CLINICAL [...] Hallux valgus deformity. Electronically signed by: Arnoldo Acros MD 08/23/2024 02:48 PM EDT RP Dictated By: Arnoldo Arcos MD Signed By: <Electronically signed by Arnoldo Arcos MD in [place]> 08/23/24 1448 DD/ 1335 TD/TT: 08/23/24 1440 Professional Housing Consultant: [facility] External Provider IMG XR PROCEDURES Final Result * Creatinine, Random Urine (06/20/2024 1:30 PM EDT) Creatinine, Urine 411.85 mg/dL [facility] 06/20/2024 1:30 PM EDT 06/20/2024 1:40 PM EDT Generic External Data Provider LAB URINE ORDERAB LES Final Result [facility] [address] [place] [phone] * POCT HGB A1C (04/06/2024 9:27 AM EST) Hemoglobin A1C 5.8 4.0 - 6.0 % QC Media Lot # [id number] Lot# Expiration Date [id number] Blood 04/06/2024 9:27 AM EST us Haresh Recinos MD POINT OF CARE TEST ENTER/EDIT OR DERABLES Final Result * (ABNORMAL) Lipid Panel, Standard (05/19/2023 12:02 PM EDT) Triglycerides 379(H) <150 mg/dL [facility] Comment:Desirable Triglyceri de: less than 150 mg/dLBorderline High Triglyceride 150-199 mg/dLHigh Triglyceride: 200-499 mg/dLVery High Triglyceride: greater than or equal to 5OO mg/dL Cholesterol 217(H) <200 mg/dL [facility] Comment:Desirable Cholestero l: less than 200 mg/dLBorderline High Cholesterol: 200-239 mg/dLHigh Cholesterol: greater than 239 mg/dL LDL Cholesterol Calculated 114(H) <100 mg/dL [facility] Comment:Desirable LDL: less than 100 mg/dLNear Optimal/Above Optimal LDL: 110- 129 mg/dLBorderline High LDL: 130-159 mg/dLHigh LDL: 160-189 mg/dLVery High LDL: greater than or equal to 190 mg/dL HDL Cholesterol 28(L) >40 mg/dL [facility] Comment:Desirable HDL: great er than 40 mg/dL Note: This HDL assay may give artificially low results in patients with liver disease. Blood Venous blood specimen / Unknown 05/19/2023 12:02 PM EDT 05/19/2023 1:38 PM EDT us Haresh Recinos MD LAB BLOOD ORDERABLES Final Resul t [facility] [address] [place] [phone] [phone] * HEPATITIS C AB W/REFL TO [...] a test for HCV RNA (test code 15135) is suggested. For additional information please refer to http://ChirpVision.Ethertronics/faq/FFJ42d1 (This link is being provided for informational/ educational purposes only.) 11/27/2021 11:2 2 AM EDT us Montse Duffy MD HISTORICAL/NON ORDERABLE LAB S Final Result Performing Organization Address [facility] Co de Phone Number CONVERT[facility]GACY LABS [...] purpose. For additional information please refer to http://education.MAPPING.SVXR/faq/NUG706 (This link is being provided for informational/ educational purposes only.) The performance of this assay has not been clinically validated in patients less than 2 years old. 11/27/2021 11:2 2 AM EDT us Montse Duffy MD LAB BLOOD ORDERABLES Final R esult Performing Organization Address City/[facility]/ZIP Co de Phone Number CONVERTED LEGACY LABS from Last 3 Months or Most Recently Relevant to Health Maintenance Insurance [address] [place] [phone] [facility] < [address] [facility] [address] [place] [phone] [place] [phone] Care Teams Window Shade Estimator Relationship Specialty Start Date End Date Name, MD Haresh [address] [place] [address] PCP - General Family Medicine 09/08/18 Bruce Dumas FNP [address] [place] [address] Nurse Practitioner Family Medicine 01/11/23 [facility] 12/07/23
--- OUTSIDE RECORDS SUMMARY | 2024-10-27 10:39 | XMS_ITS | Encounter Summary ---
Author Organization [employer] Address [address] [place] [address] [address] [place] [address] Care Team Providers Care Medical Investigator Name Role Phone Name, Haresh ELLIOTT Primary Care Provider [phone] Bruce Dumas Unavailable Unavailable Reason for Visit * Reason Comments Med Refill Encounter Details Date Type Department Care Team ([facility] st Contact Info) Description 02/15/2023 Refill [facility] [address] [place], [place] [phone] Tracie Henry DO [address] [place] [address] Social History Tobacco Use Types Packs/Day Years [...] documented as of this encounter Care Teams Medical Investigator Relationship Specialty Start Date End Date Name, MD Haresh [address] [place] [address] PCP - General Family Medicine 09/08/18 Bruce Dumas FNP [address] [place] [address] Nurse Practitioner Family Medicine 01/11/23 [facility] 12/07/23 documented as of this encounter
--- OUTSIDE RECORDS SUMMARY | 2024-10-27 10:39 | XMS_ITS | Encounter Summary ---
Author Organization [employer] Address [address] [place] [address] [address]t [place] [address] Care Team Providers Care Hands Assembler Name Role Phone Name, Haresh ELLIOTT Primary Care Provider [phone] Bruce Dumas Unavailable Unavailable Reason for Visit * Reason Onset Date Comments No Show 10/06/2022 Encounter Details Date Type Department Care Team ([facility] st Contact Info) Description 10/06/2022 Telephone [facility] [address] [place] [address] Name, MD Haresh [address] [place] [address] No Show Social History Tobacco Use Types [...] accepted this outcome Please contact pt at [phone] documented in this encounter Plan of Treatment Not on file documented as of this encounter Visit Diagnoses Not on filedocumented in this encounter Additional Health Concerns Assessment Noted Time PHQ-9 Depression Total Score: 17 023 4:02 PM EDT documented as of this encounter Care Teams Hands Assembler Relationship Specialty Start Date End Date Name, MD Haresh [address] [place] [address] PCP - General Family Medicine 09/08/18 Bruce Dumas FNP [address] [place] [address] Nurse Practitioner Family Medicine 01/11/23 [facility] 12/07/23 documented as of this encounter
--- OUTSIDE RECORDS SUMMARY | 2024-10-27 10:39 | XMS_ITS | Encounter Summary ---
Author Organization [employer] Address [address] [place] [address] [address] [place] [address] Care Team Providers Care Sheet Rock Installer Name Role Phone Name, Haresh ELLIOTT Primary Care Provider [phone] Bruce Dumas Unavailable Unavailable Reason for Visit * Reason Onset Date Comments FYI 12/09/2023 Encounter Details Date Type Department Care Team ([facility] st Contact Info) Description 12/09/2023 Telephone [facility] [address] [place], [place] [phone] Name, MD Haresh [address] [place] [address] FYI Social History Tobacco Use Types Packs/Day [...] - 12/09/2023 4:16 PM EDT Tc from [facility] to inform pcp they have started PT services with pt. documented in this encounter Plan of Treatment Not on file documented as of this encounter Visit Diagnoses Not on filedocumented in this encounter Additional Health Concerns Assessment Noted Time PHQ-9 Depression Total Score: 16 023 9:35 AM EST documented as of this encounter Care Teams Sheet Rock Installer Relationship Specialty Start Date End Date Name, MD Haresh [address] [place] [address] PCP - General Family Medicine 09/08/18 Bruce Dumas FNP [address] [place] [address] Nurse Practitioner Family Medicine 01/11/23 [facility] 12/07/23 documented as of this encounter
--- OUTSIDE RECORDS SUMMARY | 2024-10-27 10:39 | XMS_ITS | Encounter Summary ---
Author Organization [employer] Address [address] [place] [address] [address] [place] [address] Care Team Providers Care Aircraft Manager Name Role Phone Name, Haresh ELLIOTT Primary Care Provider [phone] Bruce Dumas Unavailable Unavailable Reason for Visit * Reason Onset Date Comments Hospital Follow-up 12/09/2023 Encounter Details Date Type Department Care Team ([facility] Contact Info) Description 12/09/2023 Telephone [facility] [address] [place] [address] Name, MD Haresh [address] [place] [address] Hospital Follow-up Social History Tobacco Use Types [...] from pt requesting a HDF appt. [place] [facility] [place] Date of admission: States about 5 months ago Discharge date: 12/08/23 Diagnosed: mild stroke documented in this encounter Plan of Treatment Not on file documented as of this encounter Visit Diagnoses Not on filedocumented in this encounter Additional Health Concerns Assessment Noted Time PHQ-9 Depression Total Score: 16 023 9:35 AM EST documented as of this encounter Care Teams Aircraft Manager Relationship Specialty Start Date End Date Name, MD Haresh [address] [place] [address] PCP - General Family Medicine 09/08/18 Bruce Dumas FNP [address] [place] [address] Nurse Practitioner Family Medicine 01/11/23 [facility] 12/07/23 documented as of this encounter
--- OUTSIDE RECORDS SUMMARY | 2024-10-27 10:39 | XMS_ITS | Encounter Summary ---
Author Organization [employer] Address [address] [place] [address] [address] [place] [address] Care Team Providers Care Director Of Flight Operations Name Role Phone Name, Haresh ELLIOTT Primary Care Provider [phone] Bruce Dumas Unavailable Unavailable Reason for Visit * Reason Comments Med Refill Encounter Details Date Type Department Care Team ([facility] st Contact Info) Description 01/22/2022 Refill [facility] MEDICINE [address] [place] [address] Name, MD Haresh [address] [place] [address] Social History Tobacco Use Types Packs/Day Years [...] on filedocumented in this encounter Care Teams Director Of Flight Operations Relationship Specialty Start Date End Date Haresh Recinos MD [address] [place] [id number] PCP - General Family Medicine 09/08/18 Bruce Dumas FNP [address] [facility] [place] [address] Nurse Practitioner Family Medicine 01/11/23 [place] [facility] 12/07/23 documented as of this encounter
--- OUTSIDE RECORDS SUMMARY | 2024-10-27 10:39 | XMS_ITS | Encounter Summary ---
Author Organization [employer] Address [address] [place] [address] [address] [place] [address] Care Team Providers Care Neurosurgeon Name Role Phone Name, Haresh ELLIOTT Primary Care Provider [phone] Bruce Dumas Unavailable Unavailable Reason for Visit * Reason Comments Med Refill Encounter Details Date Type Department Care Team ([facility] st Contact Info) Description 02/18/2023 Refill [facility] MED[facility]INE [address] [place] [address] Montse Duffy MD [address] [place] [address] Uncomplicated opioid dependence (CMS/HCC) Social History Tobacco [...] with others, in a hotel, in a group home, living outside on the street, on a [...] documented as of this encounter Care Teams Neurosurgeon Relationship Specialty Start Date End Date Name, MD Haresh [address] [place] [address] PCP - General Family Medicine 09/08/18 Bruce Dumas FNP [address] [place] [address] Nurse Practitioner Family Medicine 01/11/23 [place] [facility] 12/07/23 documented as of this encounter
--- NOTE | 2024-10-27 10:40 | PFT_ITS ---
Flows: FEV1: 85 % of predicted at 3.06 L FVC: 83 % of predicted at 3.79 L FEV1/FVC: 81 % Bronchodilator response: Absent Volumes: Total lung capacity: 80 % of predicted at 5.43 L Residual volume: 95 % of predicted at 1.76 L Slow vital capacity: 74 % of predicted at 3.66 L Expiratory reserve volume: 32 % of predicted at 0.41 L Diffusion capacity: Normal Impression: No obstructive or restrictive ventilatory defect. No bronchodilator response. Decreased expiratory reserve volume suggests extrathoracic restriction likely secondary to abdominal obesity. MTDD
[2024-10-27 11:12] VITALS: PULSE 115; O2SAT 98
== END 2024-10-27 10:06 | disposition home or self-care (01) ==
LOC: HO.RESP 10:05
PROVIDERS: PCP Internal Medicine Geriatric Medicine; Visit Provider Internal Medicine Pulmonary Disease
DX: R06.09 Other forms of dyspnea (principal)
CPT/HCPCS: 94010; 94640; 94727; 94729

== ENCOUNTER 2024-11-01 12:31 | Outpatient (AMB) | payer OTHER, SELFPAY ==
[2024-11-01 12:58] VITALS: BP 108/67; PULSE 121; O2SAT 96; BMI 43.3
--- NOTE | 2024-11-01 12:58 | A.OFFVIS_ITS ---
Vital Signs 11/01/24 12:58 Height 5 ft 8 in Weight 285 lb BMI 43.3 BP 108/67 Blood Pressure Location Rt brachial Position Sitting Pulse 121 H Pulse Source Pulse Oximeter Pulse Oximetry (%) 96 Oxygen Delivery Method Room Air Intake Visit Reasons: Abnormal CXR/PFT Follow Up Allergies aspirin (ASPIRIN) Allergy (Unknown, Verified 11/01/24 13:07) SWELLING, NAUSEA, VOMITING HPI HPI Abnormal CXR/PFT Follow Up: Details: 54-year-old gentleman, active approximately 15 pack-year smoker with underlying obesity, BRONSON, CKD, AFib on Eliquis recently evaluated in the emergency room for dyspnea and noted to have abnormal chest x-ray with elevation of possible right- sided lung mass and has been referred for further follow-up. Patient complains of intermittent dyspnea on exertion for which he is using Symbicort and albuterol MDI with suboptimal control of his symptoms. He denies family history of lung disease. After the last office visit patient has completed his pulmonary function test, however he has not had his CT chest yet. He continues to complain of intermittent dyspnea with exertion. [facility] Medical History Tobacco dependence syndrome Rectal hemorrhage Prostatism Palpitations Nausea Leg edema, left Hyperglycemia Homeless History of COVID-19 Heartburn Essential hypertension Depressive disorder Chronic pain of left knee Chronic lower back pain Chest pain Asthma Amnesia Surgical History Umbilical hernia (04/01/23) History of surgery on lower extremity History of surgery on arm Family History Mother Heart disease Diabetes Dementia Brainstem hemorrhage Father No problems noted. Social History (Updated 11/01/24 @ 13:09 by Tracie Muhammad Simran) Alcohol intake: former Comment: counts correct Patient Tobacco Use Status: Former Tobacco user Tobacco use type: Cigarette Cigarette Packs Per Day: 0.5 Years Smoked: started age 22, half a pack a day, quit July 2024 service: No Review of Systems Const Denies daytime sleepiness, Denies excessive sweating, Denies fatigue, Denies fever(s), Denies lethargy, Denies malaise, Denies night sweats, Denies snoring and Denies weight loss Eyes Denies blurry vision and Denies itchy eyes ENT Denies nasal congestion, Denies post nasal drip, Denies sinus pain, Denies sinus pressure and Denies other ( Thrush) Card Denies chest pain, Denies pedal edema, Denies dyspnea, Reports dyspnea on exertion, Denies orthopnea and Denies paroxysmal nocturnal dyspnea Resp Denies cough, Denies hemoptysis, Denies excessive phlegm production, Denies dyspnea, Reports dyspnea on exertion, Denies snoring and Denies wheezing GI Denies abdominal pain and Denies heartburn Musc Denies myalgias, Denies arthralgias and Denies joint swelling Skin/Breast Denies rash Neuro Denies memory loss and Denies seizure-like activity Psych Denies abnormal sleep pattern, Denies anxiety and Denies memory loss Endo Denies excessive sweating, Denies fatigue and Denies heat intolerance Yousif/Lymph Denies easy bruising Aller/Immun Denies itchy eyes, Denies seasonal rhinorrhea and Denies wheezing Physical Exam Vital Signs: Last Vital Signs Pulse 121 H 11/01/24 12:58 BP 108/67 11/01/24 12:58 Pulse Ox 96 11/01/24 12:58 Oxygen Delivery Method Room Air 11/01/24 12:58 BMI result Body Mass Index 43.3 Const General: no acute distress and alert Nutritional Appearance: obese Orientation/consciousness: Other orientation findings ( oriented) HEENT Head: Yes atraumatic Eyes General: appearance normal, both eyes and all related structures Sclerae: sclerae normal EOM: EOMs intact bilaterally Neck Neck: Yes supple Lymphatic: no lymphadenopathy noted Resp Effort & Inspection: normal respiratory effort and no use of accessory muscles Auscultation: clear to auscultation bilaterally Cardio Rate: regular rate Rhythm: regular rhythm Heart sounds: no gallops, no murmurs and no rubs Skin General skin exam: other ( warm) Extrem General: No clubbing, No cyanosis and No edema Assessment & Plan Assessment & Plan (1) Dyspnea on exertion: Code(s): R06.09 - Other forms of dyspnea Category: Medical Plan: Results of pulmonary function test reviewed and are essentially normal. His respiratory symptoms are controlled on his current Symbicort and albuterol MDI. His dyspnea appears to multifactorial etiology with significant non pulmonary component. Will add empiric theophylline. (2) Lung mass: Code(s): R91.8 - Other nonspecific abnormal finding of lung field Category: Medical Plan: Patient has not completed his CT chest yet. CT chest is pending. (3) Tobacco dependence syndrome: Code(s): F17.200 - Nicotine dependence, unspecified, uncomplicated Category: Medical Plan: Patient is interested quitting smoking, will add nicotine replacement therapy. Coding Level of Care Code Est Pt Level 4 (07736) Complex EM visit Add On G2211 Diagnoses Dyspnea on exertion R06.09 Lung mass R91.8 Tobacco dependence syndrome F17.200
--- OUTSIDE RECORDS SUMMARY | 2024-11-01 15:03 | XMS_ITS | Encounter Summary ---
Author Organization [employer] Address [address] [place] [address] [address] [place] [address] Care Team Providers Care Environmental Field Office Manager Name Role Phone Name, Haresh ELLIOTT Primary Care Provider [phone] Bruce Dumas Unavailable Unavailable Reason for Visit * Reason Onset Date Comments Appointment Request 03/15/2024 Encounter Details Date Type Department Care Team ([facility] st Contact Info) Description 03/15/2024 Telephone [facility] MEDICINE [address] [place], [place] [id number] Name, MD Haresh [address] [place] [address] Appointment Request Social History Tobacco Use Types [...] on a recall list. Contact pt at [phone] documented in this encounter Plan of Treatment Not on file documented as of this encounter Visit Diagnoses Not on filedocumented in this encounter Additional Health Concerns Assessment Noted Time PHQ-9 Depression Total Score: 16 023 9:35 AM EST documented as of this encounter Care Teams Environmental Field Office Manager Relationship Specialty Start Date End Date Name, MD Haresh [address] [place] [address] PCP - General Family Medicine 09/08/18 Bruce Dumas FNP [address] [place] [address] Nurse Practitioner Family Medicine 01/11/23 [place] [facility] 12/07/23 documented as of this encounter
--- OUTSIDE RECORDS SUMMARY | 2024-11-01 15:03 | XMS_ITS | Encounter Summary ---
Author Organization [employer] Address [address] [place] [address] [address] [place] [address] Care Team Providers Care Machine Sneller Name Role Phone Name, Haresh ELLIOTT Primary Care Provider [phone] Bruce Dumas Unavailable Unavailable Reason for Visit * Reason Comments Med Refill Encounter Details Date Type Department Care Team ([facility] st Contact Info) Description 02/18/2023 Refill [facility] MEDICINE [address] [place] [address] Montse Duffy MD [address] [place] [address] Uncomplicated opioid dependence (CMS/HCC) Social History Tobacco [...] with others, in a hotel, in a care home, living outside on the street, on [...] documented as of this encounter Care Teams Machine Sneller Relationship Specialty Start Date End Date Name, MD Haresh [address] [place] [address] PCP - General Family Medicine 09/08/18 Bruce Dumas FNP [address] [place] [address] Nurse Practitioner Family Medicine 01/11/23 [place] [facility] 12/07/23 documented as of this encounter
--- OUTSIDE RECORDS SUMMARY | 2024-11-01 15:03 | XMS_ITS | Clinical Summary ---
Author Organization [employer] Address [address] [place] [address] 7[address] [place] [address] Care Team Providers Care Rock Dust Sprayer Name Role Phone Name, Haresh ELLIOTT Primary Care Provider [phone] Bruce Dumas Unavailable Unavailable Allergies Active Allergy [...] hyperglycemia, without long-term current use of insulin ([facility]) Use as directed 100 each 3 3 Active Blood Glucose Monitoring Suppl (FreeStyle glucose monitoring) kitIndications:T ype 2 diabetes mellitus with hyperglycemia, without long-term current use of insulin ([facility]) Use as directed 1 each 3 Active albuterol 108 (90 Base) MCG/ACT inhalerIndicatio ns:Asthma, unspecified asthma severity, unspecified whether complicated, unspecified whether persistent INHALE 2 PUFFS BY MOUTH FOUR TIMES DAILY NEEDED 8.5 g 1 3 Active Lancets (OneTouch Delica Plus [id number]) miscIndications: Type 2 diabetes mellitus with hyperglycemia, without long-term current use of insulin ([facility]) TEST BLOOD SUGAR TWICE DAILY 100 each [...] on cardiology d/t consult during hospitalization at [facility] and no clear plan was indicated. At this time holding off on vascular d/t no record of duplex ultrasound from [facility], requested records today, depending on results [...] alcohol, no tobacco. Lives in residential program ([facility]) with daily groups but no prescriber. Not working currently, has applied for disability. Pt reports some improved mood but hallucinations are not controlled, and ?mild paranoia/delusional thinking. Will add Abilify 5 mg once daily. Continue Prozac 40 mg daily, Trazodone 150 mg at bedtime. He will continue with supportive living situation, with therapist, and with supports from [facility] clinician and others in [facility] program. F/u [...] alcohol, no tobacco. Lives in residential program ([facility]) with daily groups but no prescriber. Not working currently, has applied for disability. Pt reports possible early improvement with addition of Prozac, will now increase to Prozac 40 mg daily. Not sleeping as well, will increase to Trazodone 150 mg at bedtime. He will continue with supportive living situation, and with supports from [facility] clinician and others in [facility] program. F/u [...] alcohol, no tobacco. Lives in residential program ([facility]) with daily groups but no prescriber. Not working currently, has applied for disability. At this time he will continue Trazodone 100 mg at bedtime. Will start Prozac 20 mg daily. Explained that he would not notice improvement right away, would likely be 3-4 weeks before gradual improvement noted, so be patient. He will continue with supportive living situation, and with supports from [facility] clinician and others in [facility] program. F/u [...] Health Integration Plan Internal Follow up with [facility]. We contacted [facility], for intake for [...] Department Care Team Description 09/08/2024 Orders Only [facility] [address] [place] [address] Jordi Caro CNP Lung mass (Primary Dx) 09/08/2024 Telephone [place] [facility] [address] [place] [id number] Jordi Caro CNP 08/25/2024 3:45 PM EDT [facility] [place] [address] Jordi Caro CNP Displaced fracture of fifth metatarsal bone, left foot, initial encounter for closed fracture (Primary Dx); Lung mass; Encounter for tobacco use cessation counseling 08/25/2024 Travel 08/24/2024 Telephone [place] [address] Julia Magallon MA Chart Prep 08/23/2024 Orders Only GENERIC EXTERNAL DATA DEPARTMENT Provider, Generic External Data 08/21/2024 Telephone [place] [address] Haresh Recinos MD ER Follow-up 08/17/2024 Telephone [place] [address] Haresh Recinos MD Nurse Triage from Last [...] Blood Count 7.8 4.8 - 10.8 X10*3/uL [facility] Red Blood Count 5.25 4.60 - 5.80 X10*6/uL [facility] Hemoglobin 14.6 14.0 - 18.0 g/dl [facility] Hematocrit 44.8 42.0 - 52.0 % [facility] Mean Corpuscular Volume 85.3 80.0 - 98.0 fL [facility] Mean Corpuscular Hemoglobin 27.8 27.0 - 33.0 pg [facility] Mean Corpuscular HGB Conc 32.6 31.0 - 36.0 g/dl [facility] Red Cell Distribution Width 14.0 11.0 - 16.0 % [facility] Platelet Count 340 160 - 400 X10*3/uL [facility] Mean Platelet Volume 8.3(L) 9.4 - 12.4 fL [facility] Neutrophils Percent Auto 73.4(H) 45 - 73 % [facility] Imm Gran Pct Auto 0.3 0.0 - 0.4 % [facility] Lymphocytes Percent Auto 17.6(L) 20 - 40 % [facility] Monocytes Percent Auto 4.9 2 - 11 % [facility] Eosinophils Percent Auto 3.3 0 - 4 % [facility] Basophils Percent Auto 0.5 0 - 2 % [facility] NRBC Pct Auto 0.0 0.0 - 0.2 /100WBC [facility] Neutrophils Absolute Auto 5.7 2.0 - 8.3 x10*3/uL [facility] Imm Gran Abs Auto 0.02 0.00 - 0.03 X10*3/uL [facility] Lymphocytes Absolute Auto 1.4 1.2 - 4.9 X10*3/uL [facility] Monocytes Absolute Auto 0.4 0.1 - 1.2 X10*3/uL [facility] Eosinophils Absolute Auto 0.3 0.0 - 0.4 X10*3/uL [facility] Basophils Absolute Auto 0.0 0.0 - 0.2 X10*3/uL [facility] NRBC Abs Auto 0.000 0.0 - 0.012 X10*3/uL [facility] 08/23/2024 2:25 PM EDT 08/23/2024 2:27 PM EDT us Generic External Data Provider LAB BLOOD ORDERAB LES Final Result Performing Organization Address [facility] [employer] de Phone Number [facility] [address] [place] [phone] * B Type Natriuretic Peptide (BNP) (08/23/2024 2:25 PM EDT) B Type Natriuretic Peptide 18 <100 pg/mL [facility] 08/23/2024 2:25 PM EDT 08/23/2024 2:27 PM EDT Generic External Data Provider LAB BLOOD ORDERAB LES Final Result Performing Organization Address [facility] de Phone Number [facility] [address] [place] [phone] * Magnesium (08/23/2024 2:25 PM EDT) Magnesium 2.2 1.6 - 2.6 mg/dL [facility] 08/23/2024 2:25 PM EDT 08/23/2024 2:27 PM EDT Generic External Data Provider LAB BLOOD ORDERAB LES Final Result Performing Organization Address [facility] de Phone Number [facility] [address] [place] [phone] * (ABNORMAL) Comprehensive Metabolic Panel (08/23/2024 2:25 PM EDT) Sodium 138 135 - 145 mmol/L [facility] Potassium 4.1 3.3 - 5.1 mmol/L [facility] Chloride 109(H) 96 - 108 mmol/L [facility] Carbon Dioxide 23 22 - 29 mmol/L [facility] Anion Gap 10(L) 12 - 20 [facility] Urea Nitrogen (BUN) 15 9 - 16 mg/dL [facility] Creatinine, Serum 1.83(H) 0.5 - 1.4 mg/dL [facility] Creatinine Clr Calc Pharmacy 59.6 [facility] Comment:eGFR (calculated fro m the MDRD study equation) and eCrCl(calculated from the Cockcroft-Gault equation) are based ondifferent parameters and may not yield comparable results.If eCrCl result is absurd, please check patient'sheight/weight. Estimated Glomerular Filt Rate 39 [facility] Comment:Chronic Kidney Disea se: Estimated GFR < 60 mL/min/1.56l2Hjeiar Kidney Disease: Estimated GFR < 15 mL/min/1.73m2 Glucose 115 60 - 115 mg/dL [facility] Calcium 9.3 8.4 - 10.2 mg/dL [facility] Bilirubin, Total 0.2 0.0 - 1.0 mg/dL [facility] Aspartate Amino Transferase 21 5 - 37 U/L [facility] Alanine Aminotransferase 32 0 - 40 U/L [facility] Total Protein 7.5 6.5 - 8.0 g/dL [facility] Albumin Level 4.1 3.5 - 5.0 g/dL [facility] Alkaline Phosphatase 119(H) 39 - 117 U/L [facility] 08/23/2024 2:25 PM EDT 08/23/2024 2:27 PM EDT us Generic External Data Provider LAB BLOOD ORDERAB LES Final Result [facility] [address] [place] [phone] * XR Ankle 3+ Views Right (08/23/2024 1:37 PM EDT) Anatomical Region Laterality Modality Lower Extremities, Ankle Right Radiogr aphic Imaging 08/23/2024 1:37 PM EDT Narrative 08/23/2024 2:49 PM EDT [address] [address] XRay Report Signed Patient: Jason Martinez MR#: [id number] : 1970 Acct:[id number] Age/Sex: 54 / M ADM Date: 08/23/24 Loc: HO.ED Attending Dr: Ordering Physician: Deborah Nevarez Date of Service: 08/23/24 Procedure(s): XR ankle RT min 3V Accession Number(s): [id number] cc: [facility]; Deborah Nevarez EXAMINATION: XR ANKLE, RIGHT CLINICAL [...] 08/23/24 1445 DD/ 1337 TD/TT: 08/23/24 1440 Pattern Molder: Procedure Note Donotuseinterpreter, Image - 08/23/[address] [address] XRay Report Signed Patient: Jason Martinez LMR#: [id number] : 1970Acct:[id number] Age/Sex: 54 / MADM Date: 08/23/24 Loc: HO.ED Attending Dr: Ordering Physician: Deborah Nevarez Date of Service: 08/23/24 Procedure(s): XR ankle RT min 3V Accession Number(s): [id number] cc: [facility]; Deborah Nevarez EXAMINATION: XR ANKLE, RIGHT CLINICAL [...] 08/23/24 1445 DD/ 1337 TD/TT: 08/23/24 1440 Pattern Molder: [facility] External Provider IMG XR PROCEDURES Final Result * XR Foot 3+ Views Right (08/23/2024 1:35 PM EDT) Anatomical Region Laterality Modality Lower Extremities, Foot Right Radiogra phic Imaging 08/23/2024 1:35 PM EDT Narrative 08/23/2024 2:51 PM EDT [address] [address] XRay Report Signed Patient: Jason Martinez MR#: [id number] : 1970 Acct:[id number] Age/Sex: 54 / M ADM Date: 08/23/24 Loc: HO.ED Attending Dr: Ordering Physician: Deborah Nevarez Date of Service: 08/23/24 Procedure(s): XR foot RT min 3V Accession Number(s): [id number] cc: [facility]; Deborah Nevarez EXAMINATION: XR FOOT, RIGHT CLINICAL [...] 08/23/24 1448 DD/ 1335 TD/TT: 08/23/24 1440 Pattern Molder: Procedure Note Donotuseinterpreter, Image - 08/23/[address] [address] XRay Report Signed Patient: Jason Martinez LMR#: [id number] : 1970Acct:[id number] Age/Sex: 54 / MADM Date: 08/23/24 Loc: HO.ED Attending Dr: Ordering Physician: Deborah Nevarez Date of Service: 08/23/24 Procedure(s): XR foot RT min 3V Accession Number(s): [id number] cc: [facility]; Deborah Nevarez EXAMINATION: XR FOOT, RIGHT CLINICAL [...] 08/23/24 1448 DD/ 1335 TD/TT: 08/23/24 1440 Pattern Molder: [facility] External Provider IMG XR PROCEDURES Final Result * Creatinine, Random Urine (06/20/2024 1:30 PM EDT) Creatinine, Urine 411.85 mg/dL [facility] 06/20/2024 1:30 PM EDT 06/20/2024 1:40 PM EDT Generic External Data Provider LAB URINE ORDERAB LES Final Result [facility] [address] [place] [phone] * POCT HGB A1C (04/06/2024 9:27 AM EST) Hemoglobin A1C 5.8 4.0 - 6.0 % QC Media Lot # [id number] Lot# Expiration Date [id number] Blood 04/06/2024 9:27 AM EST us Haresh Recinos MD POINT OF CARE TEST ENTER/EDIT OR DERABLES Final Result * (ABNORMAL) Lipid Panel, Standard (05/19/2023 12:02 PM EDT) Triglycerides 379(H) <150 mg/dL [facility] Comment:Desirable Triglyceri de: less than 150 mg/dLBorderline High Triglyceride 150-199 mg/dLHigh Triglyceride: 200-499 mg/dLVery High Triglyceride: greater than or equal to 5OO mg/dL Cholesterol 217(H) <200 mg/dL [facility] Comment:Desirable Cholestero l: less than 200 mg/dLBorderline High Cholesterol: 200-239 mg/dLHigh Cholesterol: greater than 239 mg/dL LDL Cholesterol Calculated 114(H) <100 mg/dL [facility] Comment:Desirable LDL: less than 100 mg/dLNear Optimal/Above Optimal LDL: 110- 129 mg/dLBorderline High LDL: 130-159 mg/dLHigh LDL: 160-189 mg/dLVery High LDL: greater than or equal to 190 mg/dL HDL Cholesterol 28(L) >40 mg/dL [facility] Comment:Desirable HDL: great er than 40 mg/dL Note: This HDL assay may give artificially low results in patients with liver disease. Blood Venous blood specimen / Unknown 05/19/2023 12:02 PM EDT 05/19/2023 1:38 PM EDT us Haresh Recinos MD LAB BLOOD ORDERABLES Final Resul t [facility] [address] [place] [phone] * HEPATITIS C AB [...] a test for HCV RNA (test code 11129) is suggested. For additional information please refer to http://[employer].WyzeTalk/faq/OXU98y4 (This link is being provided for informational/ educational purposes only.) 11/27/2021 11:2 2 AM EDT us Montse Duffy MD HISTORICAL/NON ORDERABLE LAB S Final Result Performing Organization Address [facility] Co de Phone Number CONVERTED LEGACY LABS [...] purpose. For additional information please refer to http://education.[employer].Vizy/faq/XNG141 (This link is being provided for informational/ educational purposes only.) The performance of this assay has not been clinically validated in patients less than 2 years old. 11/27/2021 11:2 2 AM EDT us Montse Duffy MD LAB BLOOD ORDERABLES Final R esult Performing Organization Address City/[facility]/ZIP Co de Phone Number CONVERTED LEGACY LABS from Last 3 Months or Most Recently Relevant to Health Maintenance Insurance [address] [place] [phone] [facility] CARE < 65 [facility] [address] [place] [phone] [place] [phone] Care Teams Rock Dust Sprayer Relationship Specialty Start Date End Date Name, MD Haresh [address] [place] [phone] PCP - General Family Medicine 09/08/18 Bruce Dumas FNP [address] [place] [phone] Nurse Practitioner Family Medicine 01/11/23 [facility] 12/07/23
--- OUTSIDE RECORDS SUMMARY | 2024-11-01 15:03 | XMS_ITS | Encounter Summary ---
Author Organization [employer] Address [address] [place] [address] 7t [place] [address] Care Team Providers Care Weight Clerk Name Role Phone Name, Haresh ELLIOTT Primary Care Provider [phone] Bruce Dumas Unavailable Unavailable Reason for Visit * Reason Comments Med Refill Encounter Details Date Type Department Care Team ([facility] st Contact Info) Description 02/15/2023 Refill [facility] [address] [place], [place] [phone] Tracie Henry DO [address] [place] [address] Social History Tobacco Use Types Packs/Day Years [...] with others, in a hotel, in a usp, living outside on the street, on a [...] documented as of this encounter Care Teams Weight Clerk Relationship Specialty Start Date End Date Name, MD Haresh [address] [place] [address] PCP - General Family Medicine 09/08/18 Bruce Dumas FNP [address] [place] [address] Nurse Practitioner Family Medicine 01/11/23 [facility] 12/07/23 documented as of this encounter
--- OUTSIDE RECORDS SUMMARY | 2024-11-01 15:03 | XMS_ITS | Encounter Summary ---
Author Organization [employer] Address [address] [place] [address] [address]t [place] [address] Care Team Providers Care Ski Patrol Name Role Phone Name, Haresh ELLIOTT Primary Care Provider [phone] Bruce Dumas Unavailable Unavailable Reason for Visit * Reason Comments Med Refill Encounter Details Date Type Department Care Team ([facility] st Contact Info) Description 01/22/2022 Refill [facility]INE [address] [place] [address] Name, MD Haresh [address] [place] [address] Social History Tobacco Use Types Packs/Day Years [...] on filedocumented in this encounter Care Teams Ski Patrol Relationship Specialty Start Date End Date Haresh Recinos MD [address] [place] [address] PCP - General Family Medicine 09/08/18 Bruce Dumas FNP [address] [facility] [place] [address] Nurse Practitioner Family Medicine 01/11/23 [facility] 12/07/23 documented as of this encounter
--- OUTSIDE RECORDS SUMMARY | 2024-11-01 15:03 | XMS_ITS | Encounter Summary ---
Author Organization [employer] Address [address] [place] [address] 7t [place] [address] Care Team Providers Care Regional Sales Trainer Name Role Phone Name, Haresh ELLIOTT Primary Care Provider [phone] Bruce Dumas Unavailable Unavailable Reason for Visit * Reason Onset Date Comments Hospital Follow-up 12/09/2023 Encounter Details Date Type Department Care Team ([facility] Contact Info) Description 12/09/2023 Telephone [facility] MED[facility]INE [address] [place] [address] Name, MD Haresh [address] [place] [address] Hospital Follow-up Social History Tobacco Use Types [...] from pt requesting a HDF appt. Hospital: [facility] Date of admission: States about 5 months ago Discharge date: 12/08/23 Diagnosed: mild stroke documented in this encounter Plan of Treatment Not on file documented as of this encounter Visit Diagnoses Not on filedocumented in this encounter Additional Health Concerns Assessment Noted Time PHQ-9 Depression Total Score: 16 023 9:35 AM EST documented as of this encounter Care Teams Regional Sales Trainer Relationship Specialty Start Date End Date Name, MD Haresh [address] [place] [address] PCP - General Family Medicine 09/08/18 Bruce Dumas FNP [address] [place] [address] Nurse Practitioner Family Medicine 01/11/23 [facility] 12/07/23 documented as of this encounter
--- OUTSIDE RECORDS SUMMARY | 2024-11-01 15:03 | XMS_ITS | Encounter Summary ---
Author Organization [employer] Address [address] [place] [address] 7t [place] [address] Care Team Providers Care Tube Tester Name Role Phone Name, Haresh ELLIOTT Primary Care Provider [phone] Bruce Dumas Unavailable Unavailable Reason for Visit * Reason Onset Date Comments FYI 12/09/2023 Encounter Details Date Type Department Care Team ([facility] st Contact Info) Description 12/09/2023 Telephone [facility] [address] [place], [place] [phone] Name, MD Haresh [address] [place] [address] FYI Social History Tobacco Use Types Packs/Day [...] - 12/09/2023 4:16 PM EDT Tc from [facility] to inform pcp they have started PT services with pt. documented in this encounter Plan of Treatment Not on file documented as of this encounter Visit Diagnoses Not on filedocumented in this encounter Additional Health Concerns Assessment Noted Time PHQ-9 Depression Total Score: 16 023 9:35 AM EST documented as of this encounter Care Teams Tube Tester Relationship Specialty Start Date End Date Name, MD Haresh [address] [place] [address] PCP - General Family Medicine 09/08/18 Bruce Dumas FNP [address] [place] [address] Nurse Practitioner Family Medicine 01/11/23 [facility] 12/07/23 documented as of this encounter
--- OUTSIDE RECORDS SUMMARY | 2024-11-01 15:03 | XMS_ITS | Encounter Summary ---
Author Organization [employer] Address [address] [place] [address] 7t [place] [address] Care Team Providers Care Historiography Professor Name Role Phone Name, Haresh ELLIOTT Primary Care Provider [phone] Bruce Dumas Unavailable Unavailable Reason for Visit * Reason Onset Date Comments No Show 10/06/2022 Encounter Details Date Type Department Care Team ([facility] st Contact Info) Description 10/06/2022 Telephone [facility] MEDICINE [address] [place] [address] Name, MD Haresh [address] [place] [address] No Show Social History Tobacco Use Types [...] accepted this outcome Please contact pt at [phone] documented in this encounter Plan of Treatment Not on file documented as of this encounter Visit Diagnoses Not on filedocumented in this encounter Additional Health Concerns Assessment Noted Time PHQ-9 Depression Total Score: 17 023 4:02 PM EDT documented as of this encounter Care Teams Historiography Professor Relationship Specialty Start Date End Date Name, MD Haresh [address] [place] [address] PCP - General Family Medicine 09/08/18 Bruce Dumas FNP 230 [place] [address] Nurse Practitioner Family Medicine 01/11/23 [facility] 12/07/23 documented as of this encounter
== END 2024-11-01 13:31 | disposition home or self-care (01) ==
LOC: HO.HPS 12:31
PROVIDERS: Visit Provider Internal Medicine Pulmonary Disease
DX: R06.09 Other forms of dyspnea (principal); R91.8 Other nonspecific abnormal finding of lung field; F17.200 Nicotine dependence, unspecified, uncomplicated
CPT/HCPCS: 99214; G2211

== ENCOUNTER → 2024-11-01 12:31 | Outpatient (BNVA) | payer OTHER, SELFPAY | PROVIDERS: Visit Provider Internal Medicine Pulmonary Disease | DX: R06.09 Other forms of dyspnea (principal); R91.8 Other nonspecific abnormal finding of lung field; F17.210 Nicotine dependence, cigarettes, uncomplicated | CPT/HCPCS: 99212 ==

== ENCOUNTER 2024-11-08 11:02 | Outpatient (REF) | payer OTHER, SELFPAY ==
[2024-11-08 12:28] LABS: Anion Gap 12 (12-20); Blood Urea Nitrogen 18 mg/dL (9-16); Calcium 9.7 mg/dL (8.4-10.2); Carbon Dioxide 24 mmol/L (22-29); Chloride 107 mmol/L (96-108); Estimated Glomerular Filt Rate 40; Potassium 4.3 mmol/L (3.3-5.1); Sodium 139 mmol/L (135-145)
--- OUTSIDE RECORDS SUMMARY | 2024-11-08 12:37 | XMS_ITS | Encounter Summary ---
Author Organization [employer] Address [address] [place] [address] 7t [place] [address] Care Team Providers Care String Studies Director Name Role Phone Name, Haresh ELLIOTT Primary Care Provider [phone] Bruce Dumas Unavailable Unavailable Reason for Visit * Reason Onset Date Comments No Show 10/06/2022 Encounter Details Date Type Department Care Team ([facility] st Contact Info) Description 10/06/2022 Telephone [facility] MEDICINE [address] [place] [address] Name, MD Haresh [address] [place] [address] No Show Social History Tobacco Use Types [...] accepted this outcome Please contact pt at [phone] documented in this encounter Plan of Treatment Not on file documented as of this encounter Visit Diagnoses Not on filedocumented in this encounter Additional Health Concerns Assessment Noted Time PHQ-9 Depression Total Score: 17 023 4:02 PM EDT documented as of this encounter Care Teams String Studies Director Relationship Specialty Start Date End Date Name, MD Haresh [address] [place] [address] PCP - General Family Medicine 09/08/18 Bruce Dumas FNP [address] [place] [address] Nurse Practitioner Family Medicine 01/11/23 [facility] 12/07/23 documented as of this encounter
--- OUTSIDE RECORDS SUMMARY | 2024-11-08 12:37 | XMS_ITS | Encounter Summary ---
Author Organization [employer] Address [address] [place] [address] 7t [place] [address] Care Team Providers Care Manager Community Development Name Role Phone Name, Haresh ELLIOTT Primary Care Provider [phone] Bruce Dumas Unavailable Unavailable Reason for Visit * Reason Onset Date Comments Hospital Follow-up 12/09/2023 Encounter Details Date Type Department Care Team ([facility] Contact Info) Description 12/09/2023 Telephone [facility] [address] [place] [address] Name, MD Haresh [address] [place] [address] Hospital Follow-up Social History Tobacco Use Types [...] pt requesting a HDF appt. [place] [facility] [place] of admission: States about 5 months ago Discharge date: 12/08/23 Diagnosed: mild stroke documented in this encounter Plan of Treatment Not on file documented as of this encounter Visit Diagnoses Not on filedocumented in this encounter Additional Health Concerns Assessment Noted Time PHQ-9 Depression Total Score: 16 023 9:35 AM EST documented as of this encounter Care Teams Manager Community Development Relationship Specialty Start Date End Date Name, MD Haresh [address] [place] [address] PCP - General Family Medicine 09/08/18 Bruce Dumas FNP [address] [place] [address] Nurse Practitioner Family Medicine 01/11/23 [facility] 12/07/23 documented as of this encounter
--- OUTSIDE RECORDS SUMMARY | 2024-11-08 12:37 | XMS_ITS | Encounter Summary ---
Author Organization [employer] Address [address] [place] [address] 7t [place] [address] Care Team Providers Care Parcel Contractor Name Role Phone Name, Haresh ELLIOTT Primary Care Provider [phone] Bruce Dumas Unavailable Unavailable Reason for Visit * Reason Comments Med Refill Encounter Details Date Type Department Care Team ([facility] st Contact Info) Description 01/22/[address] [facility] MEDICINE [address] [place] [address] Name, MD Haresh [address] [place] [address] Social History Tobacco Use Types Packs/Day Years [...] on filedocumented in this encounter Care Teams Parcel Contractor Relationship Specialty Start Date End Date Haresh Recinos MD [address] [place] [phone] PCP - General Family Medicine 09/08/18 Bruce Dumas FNP [address] [facility] [place] [address] Nurse Practitioner Family Medicine 01/11/23 [facility] 12/07/23 documented as of this encounter
--- OUTSIDE RECORDS SUMMARY | 2024-11-08 12:37 | XMS_ITS | Clinical Summary ---
Author Organization [employer] Address [address] [place] [address] 7t [place] [address] Care Team Providers Care Freelance Director Name Role Phone Name, Haresh ELLIOTT Primary Care Provider [phone] Bruce Dumas Unavailable Unavailable Allergies Active Allergy [...] hyperglycemia, without long-term current use of insulin ([facility]) Use as directed 100 each 3 3 Active Blood Glucose Monitoring Suppl (FreeStyle glucose monitoring) kitIndications:T ype 2 diabetes mellitus with hyperglycemia, without long-term current use of insulin ([facility]) Use as directed 1 each 3 Active albuterol 108 (90 Base) MCG/ACT inhalerIndicatio ns:Asthma, unspecified asthma severity, unspecified whether complicated, unspecified whether persistent INHALE 2 PUFFS BY MOUTH FOUR TIMES DAILY NEEDED 8.5 g 1 3 Active Lancets (OneTouch Delica Plus [id number]) miscIndications: Type 2 diabetes mellitus with hyperglycemia, without long-term current use of insulin ([facility]) TEST BLOOD SUGAR TWICE DAILY [...] extraction 05/26/2024 Acute DVT (deep venous thrombosis) (CMS/HCC) CHITO (acute kidney injury) 12/24/2023 Assessment & Plan (12/24/2023 4:15 PM EST): Ordered BMP and CBC today to monitor renal function, plan to have patient complete labs today however d/t time constraints pt left without completing labs. Will refer to nephrology today C. difficile diarrhea 12/24/2023 ESRD needing dialysis ([facility]) 12/24/2023 Fall 12/24/2023 Hyperkalemia 12/24/2023 Hypokalemia 12/24/2023 Major depression, recurrent 12/24/2023 Need for acute hemodialysis 12/24/2023 Rhabdomyolysis 12/24/2023 Status post umbilical hernia repair, follow-up e xam 12/24/2023 Swallowing problem 12/24/2023 Tachycardia 12/24/2023 Elevated lactic acid level 12/24/2023 Elevated troponin 12/24/2023 Transaminitis 12/24/2023 Deep venous thrombosis of ri ght profunda femoris vein ([facility]) 12/24/2023 Assessment & Plan (12/24/2023 4:14 PM EST): No signs of thrombophlebitis Continue on Elliquis 5 mg BID for anticoagulation At this time holding off on cardiology d/t consult during hospitalization at [facility] and no clear plan was indicated. At this time holding off on vascular d/t no record of duplex ultrasound from [facility], requested records today, depending on results will refer to vascular surgery. DMII (diabetes mellitus, type 2) 06/16/2022 Assessment & Plan (12/24/2023 4:17 PM EST): Glucose today 103, A1c at goal of 5.4 Metformin discontinue'd d/t CHITO Will continue with diabetic diet Morbid (severe) obesity due to excess calories ( [facility]) 06/16/2022 BRONSON (obstructive sleep apnea) 06/16/2022 Substance abuse ([facility]) 06/16/2022 Umbilical hernia 06/16/2022 PTSD (post-traumatic stress [...] situation, with therapist, and with supports from [facility] clinician and others in Suboxone program. F/u [...] supportive living situation, and with supports from [facility] clinician and others in Suboxone program. F/u [...] hospitalization was 2 days in respite in 2006. Mother's family hx BPD, but patient does [...] supportive living situation, and with supports from [facility] clinician and others in Suboxone program. F/u [...] Health Integration Plan Internal Follow up with [facility]. We contacted [facility], for intake for [...] vasovagal 06/16/2022 4 Nausea 01/10/2022 05/19/2023 Encounters Date Type Department Care Team Description 11/08/2024 Orders Only GENERIC EXTERNAL DATA DEPARTMENT Provider, Generic External Data 09/08/2024 Orders Only [facility] [address] [place] [address] Jordi Caro CNP Lung mass (Primary Dx) 09/08/2024 Telephone [place] [facility] [address] Jordi Caro CNP 08/25/2024 3:45 PM EDT Office Visit [facility] [place] [address] Jordi Caro CNP Displaced fracture of fifth metatarsal bone, left foot, initial encounter for closed fracture (Primary Dx); Lung mass; Encounter for tobacco use cessation counseling 08/25/2024 Travel 08/24/[address] [facility] [place] [address] Julia Magallon MA Chart Prep 08/23/2024 Orders Only GENERIC EXTERNAL DATA DEPARTMENT Provider, Generic External Data 08/21/[address] [facility] [place] [address] Haresh Recinos MD ER Follow-up 08/17/[address] [facility] [place] [address] Haresh Recinos MD Nurse Triage from Last [...] the past 12 months, has t he [employer], gas, oil or water company threatened to [...] 12/24/2023, 12/21/2022, Additional history exists COVID-19 Vaccine ( season) 2024 10/16/2020, 08/07/2020 Influenza Vaccine (#1) [...] Procedure Name Priority Date/Time Associated Diagnosis Comments BASIC METABOLIC PANEL Routine 11/08/2024 11:23 AM EDT AMB REFERRAL TO PULMONOLOGY Routine 11/01/2024 Lung mass B TYPE NATRIURETIC PEPTIDE (BNP) Routine 08/23/2024 [...] Relevant to Health Maintenance Results * (ABNORMAL) Basic Metabolic Panel (11/08/2024 11:23 AM EDT) Sodium 139 135 - 145 mmol/L [facility] Potassium 4.3 3.3 - 5.1 mmol/L [facility] Chloride 107 96 - 108 mmol/L [facility] Carbon Dioxide 24 22 - 29 mmol/L [facility] Anion Gap 12 12 - 20 [facility] Urea Nitrogen (BUN) 18(H) 9 - 16 mg/dL [facility] Creatinine, Serum 1.79(H) 0.5 - 1.4 mg/dL [facility] Estimated Glomerular Filt Rate 40 [facility] Comment:Chronic Kidney Disea se: Estimated GFR < 60 mL/min/1.62r8Sghctg Kidney Disease: Estimated GFR < 15 mL/min/1.73m2 Glucose 113 60 - 115 mg/dL [facility] Calcium 9.7 8.4 - 10.2 mg/dL [facility] 11/08/2024 11:2 3 AM EDT 11/08/2024 11:23 AM EDT us Generic External Data Provider LAB BLOOD ORDERAB LES Final Result [facility] [address] [place] [address] [phone] * Referral to Pulmonology (11/01/2024) [facility] OUTPATIENT REFERRAL ORDER QUITA Final Result * (ABNORMAL) CBC auto differential (08/23/2024 2:25 PM EDT) White Blood Count 7.8 4.8 - 10.8 X10*3/uL [facility] Red Blood Count 5.25 4.60 - 5.80 X10*6/uL [facility] Hemoglobin 14.6 14.0 - 18.0 g/dl [facility] Hematocrit 44.8 42.0 - 52.0 % [facility] Mean Corpuscular Volume 85.3 80.0 - 98.0 fL [facility] Mean Corpuscular Hemoglobin 27.8 27.0 - 33.0 pg [facility] Mean Corpuscular HGB Conc 32.6 31.0 - 36.0 g/dl [facility] Red Cell Distribution Width 14.0 11.0 - 16.0 % [facility] Platelet Count 340 160 - 400 X10*3/uL [facility] Mean Platelet Volume 8.3(L) 9.4 - 12.4 fL [facility] Neutrophils Percent Auto 73.4(H) 45 - 73 % [facility] Imm Gran Pct Auto 0.3 0.0 - 0.4 % [facility] Lymphocytes Percent Auto 17.6(L) 20 - 40 % [facility] Monocytes Percent Auto 4.9 2 - 11 % [facility] Eosinophils Percent Auto 3.3 0 - 4 % [facility] Basophils Percent Auto 0.5 0 - 2 % [facility] NRBC Pct Auto 0.0 0.0 - 0.2 /100WBC [facility] Neutrophils Absolute Auto 5.7 2.0 - 8.3 x10*3/uL [facility] Imm Gran Abs Auto 0.02 0.00 - 0.03 X10*3/uL [facility] Lymphocytes Absolute Auto 1.4 1.2 - 4.9 X10*3/uL [facility] Monocytes Absolute Auto 0.4 0.1 - 1.2 X10*3/uL [facility] Eosinophils Absolute Auto 0.3 0.0 - 0.4 X10*3/uL [facility] Basophils Absolute Auto 0.0 0.0 - 0.2 X10*3/uL [facility] NRBC Abs Auto 0.000 0.0 - 0.012 X10*3/uL [facility] 08/23/2024 2:25 PM EDT 08/23/2024 2:27 PM EDT us Generic External Data Provider LAB BLOOD ORDERAB LES Final Result Performing Organization Address [facility] Co de Phone Number [facility] [address] [place] [phone] * B Type Natriuretic Peptide (BNP) (08/23/2024 2:25 PM EDT) [facility] B Type Natriuretic Peptide 18 <100 pg/mL [facility] 08/23/2024 2:25 PM EDT 08/23/2024 2:27 PM EDT us Generic External Data Provider LAB BLOOD ORDERAB LES Final Result Performing Organization Address [facility] Co de Phone Number [facility] [address] [place] [phone] * Magnesium (08/23/2024 2:25 PM EDT) [facility] Magnesium 2.2 1.6 - 2.6 mg/dL [facility] 08/23/2024 2:25 PM EDT 08/23/2024 2:27 PM EDT Generic External Data Provider LAB BLOOD ORDERAB LES Final Result Performing Organization Address [facility] Co de Phone Number [facility] [address] [place] [phone] * (ABNORMAL) Comprehensive Metabolic Panel (08/23/2024 2:25 PM EDT) [facility] Sodium 138 135 - 145 mmol/L [facility] Potassium 4.1 3.3 - 5.1 mmol/L [facility] Chloride 109(H) 96 - 108 mmol/L [facility] Carbon Dioxide 23 22 - 29 mmol/L [facility] Anion Gap 10(L) 12 - 20 [facility] Urea Nitrogen (BUN) 15 9 - 16 mg/dL [facility] Creatinine, Serum 1.83(H) 0.5 - 1.4 mg/dL [facility] Creatinine Clr Calc Pharmacy 59.6 [facility] Comment:eGFR (calculated fro m the MDRD study equation) and eCrCl(calculated from the Cockcroft-Gault equation) are based ondifferent parameters and may not yield comparable results.If eCrCl result is absurd, please check patient'sheight/weight. Estimated Glomerular Filt Rate 39 [facility] Comment:Chronic Kidney Disea se: Estimated GFR < 60 mL/min/1.99a7Lfjznt Kidney Disease: Estimated GFR < 15 mL/min/1.73m2 Glucose 115 60 - 115 mg/dL [facility] Calcium 9.3 8.4 - 10.2 mg/dL [facility] Bilirubin, Total 0.2 0.0 - 1.0 mg/dL [facility] Aspartate Amino Transferase 21 5 - 37 U/L [facility] Alanine Aminotransferase 32 0 - 40 U/L [facility] Total Protein 7.5 6.5 - 8.0 g/dL [facility] Albumin Level 4.1 3.5 - 5.0 g/dL [facility] Alkaline Phosphatase 119(H) 39 - 117 U/L [facility] 08/23/2024 2:25 PM EDT 08/23/2024 2:27 PM EDT us Generic External Data Provider LAB BLOOD ORDERAB LES Final Result [facility] [address] [place] [phone] * XR Ankle 3+ Views Right (08/23/2024 1:37 PM EDT) Anatomical Region Laterality Modality Lower Extremities, Ankle Right Radiogr aphic Imaging 08/23/2024 1:37 PM EDT Narrative 08/23/2024 2:49 PM EDT [address] [address] XRay Report Signed Patient: Jason Martinez MR#: [id number] : 1970 Acct:[id number] Age/Sex: 54 / M ADM Date: 08/23/24 Loc: HO.ED Attending Dr: Ordering Physician: Deborah Nevarez Date of Service: 08/23/24 Procedure(s): XR ankle RT min 3V Accession Number(s): [id number] cc: [facility]; Deborah Nevarez EXAMINATION: XR ANKLE, RIGHT [...] 08/23/24 1445 DD/ 1337 TD/TT: 08/23/24 1440 Sales Representative Gro[employer]: Procedure Note Donjoyinterpreter, Image - 08/23/[address] [address] XRay Report Signed Patient: Jason Martinez LMR#: [id number] : 1970Acct:[id number] Age/Sex: 54 / MADM Date: 08/23/24 Loc: HO.ED Attending Dr: Ordering Physician: Deborah Nevarez Date of Service: 08/23/24 Procedure(s): XR ankle RT min 3V Accession Number(s): [id number] cc: [facility]; Deborah Nevarez EXAMINATION: XR ANKLE, RIGHT [...] 08/23/24 1445 DD/ 1337 TD/TT: 08/23/24 1440 Sales Representative Groceries: [employer] External Provider IMG XR PROCEDURES Final Result * XR Foot 3+ Views Right (08/23/2024 1:35 PM EDT) Anatomical Region Laterality Modality Lower Extremities, Foot Right [facility] 08/23/2024 1:35 PM EDT Narrative 08/23/2024 2:51 PM EDT [address] [address] XRay Report Signed Patient: Jason Martinez MR#: [id number] : 1970 Acct:[id number] Age/Sex: 54 / M ADM Date: 08/23/24 Loc: HO.ED Attending Dr: Ordering Physician: Deborah Nevarez Date of Service: 08/23/24 Procedure(s): XR foot RT min 3V Accession Number(s): [id number] cc: [facility]; Deborah Nevarez EXAMINATION: XR FOOT, RIGHT [...] 08/23/24 1448 DD/ 1335 TD/TT: 08/23/24 1440 Sales Representative Grocer[employer]: Procedure Note Donotuseinterpreter, Image - 08/23/2024 [place] [address] XRay Report Signed Patient: Jason Martinez LMR#: [id number] : 1970Acct:[id number] Age/Sex: 54 / MADM Date: 08/23/24 Loc: HO.ED Attending Dr: Ordering Physician: Deborah Nevarez Date of Service: 08/23/24 Procedure(s): XR foot RT min 3V Accession Number(s): [id number] cc: [facility]; Deborah Nevarez EXAMINATION: XR FOOT, RIGHT [...] 08/23/24 1448 DD/ 1335 TD/TT: 08/23/24 1440 Sales Representative Groceries: [employer] External Provider IMG XR PROCEDURES Final Result * Creatinine, Random Urine (06/20/2024 1:30 PM EDT) Creatinine, Urine 411.85 mg/dL [facility] 06/20/2024 1:30 PM EDT 06/20/2024 1:40 PM EDT Generic External Data Provider LAB URINE ORDERAB LES Final Result [facility] [address] [place] [phone] * POCT HGB A1C (04/06/2024 9:27 AM EST) Hemoglobin A1C 5.8 4.0 - 6.0 % QC Media Lot # [id number] Lot# Expiration Date [id number] Blood 04/06/2024 9:27 AM EST us Haresh Recinos MD POINT OF CARE TEST ENTER/EDIT OR DERABLES Final Result * (ABNORMAL) Lipid Panel, Standard (05/19/2023 12:02 PM EDT) Triglycerides 379(H) <150 mg/dL [facility] Comment:Desirable Triglyceri de: less than 150 mg/dLBorderline High Triglyceride 150-199 mg/dLHigh Triglyceride: 200-499 mg/dLVery High Triglyceride: greater than or equal to 5OO mg/dL Cholesterol 217(H) <200 mg/dL [facility] Comment:Desirable Cholestero l: less than 200 mg/dLBorderline High Cholesterol: 200-239 mg/dLHigh Cholesterol: greater than 239 mg/dL LDL Cholesterol Calculated 114(H) <100 mg/dL [facility] Comment:Desirable LDL: less than 100 mg/dLNear Optimal/Above Optimal LDL: 110- 129 mg/dLBorderline High LDL: 130-159 mg/dLHigh LDL: 160-189 mg/dLVery High LDL: greater than or equal to 190 mg/dL HDL Cholesterol 28(L) >40 mg/dL [facility] Comment:Desirable HDL: great er than 40 mg/dL Note: This HDL assay may give artificially low results in patients with liver disease. Blood Venous blood specimen / Unknown 05/19/2023 12:02 PM EDT 05/19/2023 1:38 PM EDT us Haresh Recinos MD LAB BLOOD ORDERABLES Final Resul t [facility] [address] [place] [phone] * HEPATITIS C AB W/REFL TO [...] a test for HCV RNA (test code 91173) is suggested. For additional information please refer to http://[employer]orb[employer]/faq/ICF77e3 (This link is being provided for informational/ educational purposes only.) 11/27/2021 11:2 2 AM EDT us Montse uDffy MD HISTORICAL/NON ORDERABLE LAB S Final Result Performing Organization Address [facility] de Phone Number CONVERTED LEGACY LABS * [...] purpose. For additional information please refer to http://[employer]orb[employer]/faq/MVD500 (This link is being provided for informational/ educational purposes only.) The performance of this assay has not been clinically validated in patients less than 2 years old. 11/27/2021 11:2 2 AM EDT us Montse Duffy MD LAB BLOOD ORDERABLES Final R esult Performing Organization Address [facility] de Phone Number CONVERTED LEGACY LABS from Last 3 Months or Most Recently Relevant to Health Maintenance Insurance [facility] STANDARD [facility] ONE [facility] < 65 DENTAL - [facility] Care Teams Freelance Director Relationship Specialty Start Date End Date Name, MD Haresh [address] [place] [address] PCP - General Family Medicine 09/08/18 Bruce Dumas FNP [address] [place] [address] Nurse Practitioner Family Medicine 01/11/23 [place] [facility] 12/07/23
--- OUTSIDE RECORDS SUMMARY | 2024-11-08 12:37 | XMS_ITS | Encounter Summary ---
Author Organization [employer] Address [address] [place] [address] 7t [place] [address] Care Team Providers Care Fiber Technologist Name Role Phone Name, Haresh ELLIOTT Primary Care Provider [phone] Bruce Dumas Unavailable Unavailable Reason for Visit * Reason Onset Date Comments FYI 12/09/2023 Encounter Details Date Type Department Care Team ([facility] st Contact Info) Description 12/09/2023 Telephone [facility] [address] [place], [place] [phone] Name, MD Haresh [address] [place] [address] FYI Social History Tobacco Use Types Packs/Day [...] - 12/09/2023 4:16 PM EDT Tc from [facility] to inform pcp they have started PT services with pt. documented in this encounter Plan of Treatment Not on file documented as of this encounter Visit Diagnoses Not on filedocumented in this encounter Additional Health Concerns Assessment Noted Time PHQ-9 Depression Total Score: 16 023 9:35 AM EST documented as of this encounter Care Teams Fiber Technologist Relationship Specialty Start Date End Date Name, MD Haresh [address] [place] [address] PCP - General Family Medicine 09/08/18 Bruce Dumas FNP [address] [place] [address] Nurse Practitioner Family Medicine 01/11/23 [facility] 12/07/23 documented as of this encounter
--- OUTSIDE RECORDS SUMMARY | 2024-11-08 12:37 | XMS_ITS | Encounter Summary ---
Author Organization [employer] Address [address] [place] [address] 7t [place] [address] Care Team Providers Care Home Health Manager Name Role Phone Name, Haresh ELLIOTT Primary Care Provider [phone] Bruce Dumas Unavailable Unavailable Encounter Details Date Type Department Care Team (Late st Contact Info) Description 11/08/2024 Orders Only GENERIC EXTERNAL DATA [...] on file documented as of this encounter Procedures Procedure Name Priority Date/Time Associated Diagnosis Comments BASIC METABOLIC PANEL Routine 11/08/2024 11:23 AM EDT documented in this encounter Results * (ABNORMAL) Basic Metabolic Panel (11/08/2024 11:23 AM EDT) Sodium 139 135 - 145 mmol/L [facility] Potassium 4.3 3.3 - 5.1 mmol/L [facility] Chloride 107 96 - 108 mmol/L [facility] Carbon Dioxide 24 22 - 29 mmol/L [facility] Anion Gap 12 12 - 20 [facility] Urea Nitrogen (BUN) 18(H) 9 - 16 mg/dL [facility] Creatinine, Serum 1.79(H) 0.5 - 1.4 mg/dL [facility] Estimated Glomerular Filt Rate 40 [facility] Comment:Chronic Kidney Disea se: Estimated GFR < 60 mL/min/1.12l8Pekoqd Kidney Disease: Estimated GFR < 15 mL/min/1.73m2 Glucose 113 60 - 115 mg/dL [facility] Calcium 9.7 8.4 - 10.2 mg/dL [facility] 11/08/2024 11:2 3 AM EDT 11/08/2024 11:23 AM EDT us Generic External Data Provider LAB BLOOD ORDERAB LES Final Result [facility] [address] [place] [phone] [phone] documented in this encounter Visit Diagnoses Not on filedocumented in this encounter Additional Health Concerns Assessment Noted Time PHQ-9 Depression Total Score: 16 023 9:35 AM EST documented as of this encounter Care Teams Home Health Manager Relationship Specialty Start Date End Date Name, MD Haresh [address] [place] [address] PCP - General Family Medicine 09/08/18 Bruce Dumas FNP [address] [place] [address] Nurse Practitioner Family Medicine 01/11/23 [facility] 12/07/23 documented as of this encounter
--- OUTSIDE RECORDS SUMMARY | 2024-11-08 12:37 | XMS_ITS | Encounter Summary ---
Author Organization [employer] Address [address] [place] [address] 7t [place] [address] Care Team Providers Care Forging Dies Final Finisher Name Role Phone Name, Haresh ELLIOTT Primary Care Provider [phone] Bruce Dumas Unavailable Unavailable Reason for Visit * Reason Comments Med Refill Encounter Details Date Type Department Care Team ([facility] st Contact Info) Description 02/15/2023 Refill [facility] [address] [place], [place] [phone] Tracie Henry DO [address] [place] [address] Social History Tobacco Use Types Packs/Day Years [...] with others, in a hotel, in a longterm, living outside on the street, on a [...] documented as of this encounter Care Teams Forging Dies Final Finisher Relationship Specialty Start Date End Date Name, MD Haresh [address] [place] [address] PCP - General Family Medicine 09/08/18 Bruce Dumas FNP [address] [place] [address] Nurse Practitioner Family Medicine 01/11/23 Chapis [facility] 12/07/23 documented as of this encounter
--- OUTSIDE RECORDS SUMMARY | 2024-11-08 12:37 | XMS_ITS | Encounter Summary ---
Author Organization [employer] Address [address] [place] [address] 7t [place] [address] Care Team Providers Care Architectural Draftsperson Name Role Phone Name, Haresh ELLIOTT Primary Care Provider Bruce Dumas Unavailable Unavailable Reason for Visit * Reason Comments Med Refill Encounter Details Date Type Department Care Team ([facility] st Contact Info) Description 02/18/2023 Refill [facility] MEDICINE [address] [place] [address] Montse Duffy MD [address] [place] [address] Uncomplicated opioid dependence (CMS/HCC) Social History Tobacco [...] with others, in a hotel, in a mcc, living outside on the street, on a [...] Visit Diagnoses Diagnosis Uncomplicated opioid dependence (CMS/HCC) (HCC) documented in this encounter Additional Health Concerns Assessment Noted Time PHQ-9 Depression Total Score: 16 023 9:35 AM EST documented as of this encounter Care Teams Architectural Draftsperson Relationship Specialty Start Date End Date Name, MD Haresh [address] [place] [address] PCP - General Family Medicine 09/08/18 Bruce Dumas FNP [address] [place] [address] Nurse Practitioner Family Medicine 01/11/23 [place] [facility] 12/07/23 documented as of this encounter
--- OUTSIDE RECORDS SUMMARY | 2024-11-08 12:37 | XMS_ITS | Encounter Summary ---
Author Organization [employer] Address [address] [place] [address] 7t [place] [address] Care Team Providers Care Weigh Tank Operator Name Role Phone Name, Haresh ELLIOTT Primary Care Provider [phone] Bruce Dumas Unavailable Unavailable Reason for Visit * Reason Onset Date Comments Appointment Request 03/15/2024 Encounter Details Date Type Department Care Team ([facility] st Contact Info) Description 03/15/2024 Telephone [facility] MEDICINE [address] [place], [place] [phone] Name, MD Haresh [address] [place] [address] Appointment Request Social History Tobacco Use Types [...] on a recall list. Contact pt at [phone] documented in this encounter Plan of Treatment Not on file documented as of this encounter Visit Diagnoses Not on filedocumented in this encounter Additional Health Concerns Assessment Noted Time PHQ-9 Depression Total Score: 16 023 9:35 AM EST documented as of this encounter Care Teams Weigh Tank Operator Relationship Specialty Start Date End Date Name, MD Haresh [address] [place] [address] PCP - General Family Medicine 09/08/18 Bruce Dumas FNP [address] [place] [address] Nurse Practitioner Family Medicine 01/11/23 [facility] 12/07/23 documented as of this encounter
== END 2024-11-08 11:03 | disposition home or self-care (01) ==
LOC: HO.LAB 11:02
PROVIDERS: PCP Internal Medicine Geriatric Medicine; Visit Provider Internal Medicine Hypertension Specialist
DX: N18.32 Chronic kidney disease, stage 3b (principal)
CPT/HCPCS: 36415; 80048

== ENCOUNTER 2024-11-09 13:23 | Outpatient (AMB) | payer OTHER, SELFPAY ==
[2024-11-09 13:24] VITALS: BP 112/84; PULSE 124; O2SAT 96; BMI 43.3
--- NOTE | 2024-11-09 13:24 | HO.NEPHOV ---
Vital Signs 11/09/24 13:24 Height 5 ft 8 in Weight 285 lb BMI 43.3 BP 112/84 Blood Pressure Location Rt brachial Position Sitting Pulse 124 H Pulse Source Pulse Oximeter Pulse Oximetry (%) 96 Oxygen Delivery Method Room Air Intake Visit Reasons: FU Director Radio News Required: No Accompanied by: Self / Same As Patient Allergies aspirin (ASPIRIN) Allergy (Unknown, Verified 11/01/24 13:07) SWELLING, NAUSEA, VOMITING Medication List - Last Reconciled 11/09/24 by Papi Youngblood MD acetaminophen ER (Arthritis Pain Relief (acetaminophen) ER) 650 mg PO Q6H PRN acetaminophen-codeine 300-15 mg 1 tab PO Q6H PRN albuterol sulfate 90 mcg/actuation 2 puffs inhalation QID PRN apixaban (Eliquis) 5 mg PO BID aripiprazole (Abilify) 2.5 mg (1/2 x 5 mg) PO DAILY gabapentin mg PO nicotine (polacrilex) 4 mg buccal Q1H omeprazole 20 mg PO DAILY theophylline ER 450 mg PO DAILY trazodone 25 mg (1/2 x 50 mg) PO BEDTIME HPI Comments Details: Jason is a 53 y/o with a medical history of DMII, asthma, HTN, chronic back pain, mood disorder, righ tleg DVT and CHITO. He presents today for hospital follow up. Had prolonged hospitalization (primarily due to placement delays), from 08/08/23- 12/06/23. 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 creatinine between 1.62 and 2.58 since October. Most recent creatinine 2.January 04, 2024. GFR 34-45 since October. Reports he was homeless on admission, was discharged from hospital in November to a housing program on [address] [place] [address] in [place], reports he is in a program for homeless while waiting housing placement. reports 6 cigarettes most days, states drinks whisky- reports half a pint and two cups of wine. denies use of nsaids, only tylenol PRN reports his fasting sugars are in 170s-190s, reports he does have ice cream, and drinks orange juice frequently. Also white rice is frequent. Reports sees PCP for diabetes management but does not have a follow up appointment. reports he is working on minimizing salt reports he hydrates throughout the day breathing is comfortable at rest, no chest pain or dizziness. 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 still deconditioned and dyspnea with exertion/exercise but has made some mild improvement with PT. no dysuria, no flank pain, no abdominal pain reports some ongoing tingling in his lower extremities. 07/13/24 54-year-old male presenting with management concerns of chronic kidney disease (CKD) and associated issues. His kidney function has shown stability at a 36-38% glomerular filtration rate over the preceding year, which represents improvement from a markedly low point a year prior. The patient acknowledges suboptimal fluid intake, contributing to concentrated urine, and there is indication of proteinuria, albeit at a low level. No diabetes medication is currently being administered as blood sugars have been maintained well. The patient also has a history of hypertension but currently does not report any pain despite experiencing episodes of rapid heart rate. Other significant history includes a hernia repair performed last year, with occasional itching noted at the surgical site. Dietary recommendations were discussed as a preventive measure for kidney health. 11/09/24 - The patient is a 54-year-old male presenting with chronic kidney disease. - Kidney function improved from 37% to 40%. - Decreased water intake leading to concentrated urine and dehydration. - Tachycardia with heart rate of 108 bpm noted. - Insomnia reported, not taking trazodone. - Using herbal supplements, stopped prescribed medications. [facility] Medical History Tobacco dependence syndrome Rectal hemorrhage Prostatism Palpitations Nausea Leg edema, left Hyperglycemia Homeless History of COVID-19 Heartburn Essential hypertension Depressive disorder Chronic pain of left knee Chronic lower back pain Chest pain Asthma Amnesia Surgical History Umbilical hernia (04/01/23) History of surgery on lower extremity History of surgery on arm Family History Mother Heart disease Diabetes Dementia Brainstem hemorrhage Father No problems noted. Social History Alcohol intake: former Comment: counts correct Patient Tobacco Use Status: Former Tobacco user Tobacco use type: Cigarette Cigarette Packs Per Day: 0.5 Years Smoked: started age 22, half a pack a day, quit July 2024 service: No Physical Exam Vital Signs: Last Vital Signs Pulse 124 H 11/09/24 13:24 BP 112/84 11/09/24 13:24 Pulse Ox 96 11/09/24 13:24 Oxygen Delivery Method Room Air 11/09/24 13:24 BMI result Body Mass Index 43.3 Const General: no acute distress and alert Neck Neck: Yes no JVD Thyroid: Thyroid normal Resp Effort & Inspection: normal respiratory effort and able to speak in complete sentences Auscultation: clear to auscultation bilaterally Cardio Jugular venous distension: no JVD Rate: regular rate Rhythm: regular rhythm Heart sounds: S1 normal heart sound present and S2 normal heart sound present GI Palpation (GI): Soft to palpation and nontender General: Yes no CVA tenderness Back/Spine/Pelvis Back: no CVA tenderness Skin Lesions: no lesions Rashes: no rashes Extrem General: No edema Results Reviewed Nephrology Results: Hgb, (14.0-18.0) 14.6 g/dl 08/23/24 WBC, (4.8-10.8) 7.8 X10*3/uL 08/23/24 Plt Count, (160-400) 340 X10*3/uL 08/23/24 Sodium, (135-145) 139 mmol/L 11/08/24 Potassium, (3.3-5.1) 4.3 mmol/L 11/08/24 Chloride, (96-108) 107 mmol/L 11/08/24 Carbon Dioxide, (22-29) 24 mmol/L 11/08/24 BUN, (9-16) 18 mg/dL H 11/08/24 Creatinine, (0.5-1.4) 1.79 mg/dL H 11/08/24 Calcium, (8.4-10.2) 9.7 mg/dL 11/08/24 Assessment & Plan Assessment & Plan (1) CHITO (acute kidney injury): Code(s): N17.9 - Acute kidney failure, unspecified Category: Medical (2) CKD (chronic kidney disease): Code(s): N18.9 - Chronic kidney disease, unspecified Category: Medical Qualifiers: Chronic kidney disease stage: stage 3 (moderate) Chronic kidney disease stage 3 subtype: stage 3b (GFR 30-44) Qualified Code(s): N18.32 - Chronic kidney disease, stage 3b Plan CHITO secondary to ATN from pigment nephropathy, has regained some residual renal function but remains impaired in CKD3b range, though potential to continue to have some slow recovery. Has underlying CKD Cr is imprvoing. eGFR is up to 40 ml/mt Discussed stopping cigarettes, alcohol and continue to avoid NSAIDs, Maintain A1C < 7% Low salt diet Unfortunately, he has stopped all his prescription medications and currently on herbal supplements Orders: Orders Basic Metabolic Panel 3 Months N18.32 - Chronic kidney disease, stage 3b Coding Level of Care Code Est Pt Level 4 (50112) Diagnoses CHITO (acute kidney injury) N17.9 Stage 3b chronic kidney disease N18.32 Chronic kidney disease stage: stage 3 (moderate) Chronic kidney disease stage 3 subtype: stage 3b (GFR 30-44)
--- OUTSIDE RECORDS SUMMARY | 2024-11-09 14:51 | XMS_ITS | Encounter Summary ---
Author Organization [email or web address] Address [address] [place] [address] 7t [place] [address] Care Team Providers Care Self Defense Instructor Name Role Phone Name, Haresh ELLIOTT Primary Care Provider [phone] Bruce Dumas Unavailable Unavailable Reason for Visit * Reason Onset Date Comments No Show 10/06/2022 Encounter Details Date Type Department Care Team ([facility] st Contact Info) Description 10/06/2022 Telephone [facility] MEDICINE [address] [place] [address] Name, MD Haresh [address] [place] [address] No Show Social History Tobacco Use Types [...] accepted this outcome Please contact pt at [phone] documented in this encounter Plan of Treatment Upcoming Encounters Date Type Department Care Team (Late st Contact Info) Description 11/30/2024 2:00 PM EDT Office Visit [facility] ADULT DENTAL [address] [place], [place] [phone] Ritika Cooper, DDS [address] [place] [address] documented as of this encounter Visit Diagnoses Not on filedocumented in this encounter Additional Health Concerns Assessment Noted Time PHQ-9 Depression Total Score: 17 023 4:02 PM EDT documented as of this encounter Care Teams Self Defense Instructor Relationship Specialty Start Date End Date Name, MD Haresh [address] [place] [address] PCP - General Family Medicine 09/08/18 Bruce Dumas FNP [address] [place] [address] Nurse Practitioner Family Medicine 01/11/23 [place] [facility] 12/07/23 documented as of this encounter
--- OUTSIDE RECORDS SUMMARY | 2024-11-09 14:51 | XMS_ITS | Encounter Summary ---
Author Organization [employer] Address [address] 7t [place] [address] Care Team Providers Care Senior Process Control Tech Name Role Phone Name, Haresh ELLIOTT Primary Care Provider [phone] Bruce Dumas Unavailable Unavailable Encounter Details Date [...] Description 11/30/2024 2:00 PM EDT Office Visit [facility] ADULT DENTAL [address] [place] [address] KadiSebastianJerome marquezfemia, DDS [address] [place] [address] documented as of this encounter Procedures Procedure Name Priority Date/Time Associated Diagnosis Comments BASIC METABOLIC PANEL Routine 11/08/2024 11:23 AM EDT documented in this encounter Results * (ABNORMAL) Basic Metabolic Panel (11/08/2024 11:23 AM EDT) Sodium 139 135 - 145 mmol/L [facility] Potassium 4.3 3.3 - 5.1 mmol/L [facility] Chloride 107 96 - 108 mmol/L [facility] Carbon Dioxide 24 22 - 29 mmol/L [facility] Anion Gap 12 12 - 20 [facility] Urea Nitrogen (BUN) 18(H) 9 - 16 mg/dL [facility] Creatinine, Serum 1.79(H) 0.5 - 1.4 mg/dL [facility] Estimated Glomerular Filt Rate 40 [facility] Comment:Chronic Kidney Disea se: Estimated GFR < 60 mL/min/1.15k3Xloepc Kidney Disease: Estimated GFR < 15 mL/min/1.73m2 Glucose 113 60 - 115 mg/dL [facility] Calcium 9.7 8.4 - 10.2 mg/dL [facility] 11/08/2024 11:2 3 AM EDT 11/08/2024 11:23 AM EDT us Generic External Data Provider LAB BLOOD ORDERAB LES Final Result [facility] [address] [place] [address] [phone] documented in this encounter Visit Diagnoses Not on filedocumented in this encounter Additional Health Concerns Assessment Noted Time PHQ-9 Depression Total Score: 16 023 9:35 AM EST documented as of this encounter Care Teams Senior Process Control Tech Relationship Specialty Start Date End Date Name, MD Haresh [address] [place] [address] PCP - General Family Medicine 09/08/18 Bruce Dumas FNP [address] [place] [address] Nurse Practitioner Family Medicine 01/11[facility]23 [facility] documented as of this encounter
--- OUTSIDE RECORDS SUMMARY | 2024-11-09 14:51 | XMS_ITS | Encounter Summary ---
Author Organization [employer] Address [address] [facility] 7t [place] [address] Care Team Providers Care Permastone Mechanic Name Role Phone Name, Haresh ELLIOTT Primary Care Provider [phone] Bruce Dumas Unavailable Unavailable Reason for Visit * Reason Comments Med Refill Encounter Details Date Type Department Care Team ([facility] st Contact Info) Description 02/18/2023 Refill [facility] MEDICINE [address] [place] [address] Montse Duffy MD [address] [place] [address] Uncomplicated opioid dependence (CMS/HCC) Social History Tobacco [...] with others, in a hotel, in a half-way, living outside on the street, on a [...] Description 11/30/2024 2:00 PM EDT Office Visit [facility] ADULT DENTAL [address] [place] [address] Ritika Cooper DDS [address] [place] [address] documented as of this encounter Visit Diagnoses Diagnosis Uncomplicated opioid dependence (CMS/HCC) (HCC) documented in this encounter Additional Health Concerns Assessment Noted Time PHQ-9 Depression Total Score: 16 023 9:35 AM EST documented as of this encounter Care Teams Permastone Mechanic Relationship Specialty Start Date End Date Name, MD Haresh [address] [place] [address] PCP - General Family Medicine 09/08/18 Bruce Dumas FNP [address] [place] [address] Nurse Practitioner Family Medicine 01/11/23 [facility] 12/07/23 documented as of this encounter
--- OUTSIDE RECORDS SUMMARY | 2024-11-09 14:51 | XMS_ITS | Encounter Summary ---
Author Organization [employer] Address [address] [facility] 7t [place] [address] Care Team Providers Care Front End Java Developer Name Role Phone Name, Haresh ELLIOTT Primary Care Provider [phone] Bruce Dumas Unavailable Unavailable Reason for Visit * Reason Comments Med Refill Encounter Details Date Type Department Care Team ([facility] st Contact Info) Description 02/15/2023 Refill [facility] MEDICINE [address] [place], [place] [phone] Tracie Henry DO [address] [place] [address] Social History Tobacco Use Types Packs/Day Years [...] Description 11/30/2024 2:00 PM EDT Office Visit [facility] ADULT DENTAL [address] [place] [address] Ritika Cooper DDS [address] [place] [address] documented as of this encounter Visit Diagnoses Not on filedocumented in this encounter Additional Health Concerns Assessment Noted Time PHQ-9 Depression Total Score: 16 023 9:35 AM EST documented as of this encounter Care Teams Front End Java Developer Relationship Specialty Start Date End Date Name, MD Haresh [address] [place] [address] PCP - General Family Medicine 09/08/18 Bruce Dumas FNP [address] [place] [address] Nurse Practitioner Family Medicine 01/11/23 [facility] 12/07/23 documented as of this encounter
--- OUTSIDE RECORDS SUMMARY | 2024-11-09 14:51 | XMS_ITS | Encounter Summary ---
Author Organization [employer] Address [address] [facility] 7t [place] [address] Care Team Providers Care Flat Hammerer Name Role Phone Name, Haresh ELLIOTT Primary Care Provider [phone] Bruce Dumas Unavailable Unavailable Reason for Visit * Reason Comments Med Refill Encounter Details Date Type Department Care Team (Late st Contact Info) Description 01/22/2022 Refill [facility] MEDICINE [address] [place] [address] Name, MD Haresh [address] [place] [address] Social History Tobacco Use Types Packs/Day Years [...] Description 11/30/2024 2:00 PM EDT Office Visit [facility] ADULT DENTAL [address] [place] [address] Ritika Cooper DDS [address] [place] [address] documented as of this encounter Visit Diagnoses Not on filedocumented in this encounter Care Teams Flat Hammerer Relationship Specialty Start Date End Date Name, MD Haresh [address] [place] [address] PCP - General Family Medicine 09/08/18 Bruce Dumas FNP [address] [place] [address] Nurse Practitioner Family Medicine 01/11/23 [place] [facility] 12/07/23 documented as of this encounter
--- OUTSIDE RECORDS SUMMARY | 2024-11-09 14:51 | XMS_ITS | Encounter Summary ---
Author Organization [employer] Address [address] [facility] 7t [place] [address] Care Team Providers Care Fight Manager Name Role Phone Name, Haresh ELLIOTT Primary Care Provider [phone] Bruce Dumas Unavailable Unavailable Reason for Visit * Reason Onset Date Comments Appointment Request 03/15/2024 Encounter Details Date Type Department Care Team ([facility] st Contact Info) Description 03/15/2024 Telephone [facility] MEDICINE [address] [place], [place] [phone] Name, MD Haresh [address] [place] [address] Appointment Request Social History Tobacco Use Types [...] on a recall list. Contact pt at [phone] documented in this encounter Plan of Treatment Upcoming Encounters Date Type Department Care Team (Late st Contact Info) Description 11/30/2024 2:00 PM EDT Office Visit [facility] ADULT DENTAL [address] [place] [address] Ritika Cooper DDS [address] [place] [address] documented as of this encounter Visit Diagnoses Not on filedocumented in this encounter Additional Health Concerns Assessment Noted Time PHQ-9 Depression Total Score: 16 023 9:35 AM EST documented as of this encounter Care Teams Fight Manager Relationship Specialty Start Date End Date Name, MD Haresh [address] [place] [address] PCP - General Family Medicine 09/08/18 Bruce Dumas FNP 230 [facility] [place] [address] Nurse Practitioner Family Medicine 01/11/23 [place] [facility] 12/07/23 documented as of this encounter
--- OUTSIDE RECORDS SUMMARY | 2024-11-09 14:52 | XMS_ITS | Encounter Summary ---
Author Organization [employer] Address [address] [facility] 7t [place] [address] Care Team Providers Care Viscera Washer Name Role Phone Name, Haresh ELLIOTT Primary Care Provider [phone] Bruce Dumas Unavailable Unavailable Reason for Visit * Reason Onset Date Comments Hospital Follow-up 12/09/2023 Encounter Details Date Type Department Care Team ([facility] Contact Info) Description 12/09/2023 Telephone [facility] MEDICINE [address] [place] [address] Name, MD Haresh [address] [place] [address] Hospital Follow-up Social History Tobacco Use Types [...] from pt requesting a HDF appt. [facility] [facility] Date of admission: States about 5 months ago Discharge date: 12/08/23 Diagnosed: mild stroke documented in this encounter Plan of Treatment Upcoming Encounters Date Type Department Care Team (Late st Contact Info) Description 11/30/2024 2:00 PM EDT Office Visit [facility] ADULT DENTAL [address] [place] [address] Ritika Cooper DDS [address] [place] [address] documented as of this encounter Visit Diagnoses Not on filedocumented in this encounter Additional Health Concerns Assessment Noted Time PHQ-9 Depression Total Score: 16 023 9:35 AM EST documented as of this encounter Care Teams Viscera Washer Relationship Specialty Start Date End Date Name, MD Haresh [address] [place] [address] PCP - General Family Medicine 09/08/18 Bruce Dumas FNP [address] [facility] [address] Nurse Practitioner Family Medicine 01/11/23 [place] [facility] 12/07/23 documented as of this encounter
--- OUTSIDE RECORDS SUMMARY | 2024-11-09 14:52 | XMS_ITS | Encounter Summary ---
Author Organization [employer] Address [address] [facility] 7t [place] [address] Care Team Providers Care Heavy Equipment Plumbing Supervisor Name Role Phone Name, Haresh ELLIOTT Primary Care Provider [phone] Bruce Dumas Unavailable Unavailable Reason for Visit * Reason Onset Date Comments FYI 12/09/2023 Encounter Details Date Type Department Care Team ([facility] Contact Info) Description 12/09/2023 Telephone [facility] MEDICINE [address] [place], [place] [phone] Name, MD Haresh [address] [place] [address] FYI Social History Tobacco Use Types Packs/Day [...] - 12/09/2023 4:16 PM EDT Tc from [facility] to inform pcp they have started PT services with pt. documented in this encounter Plan of Treatment Upcoming Encounters Date Type Department Care Team (Late st Contact Info) Description 11/30/2024 2:00 PM EDT Office Visit [facility] ADULT DENTAL [address] [place] [address] Tao-Sebastian, Ritika, DDS [address] [place] [address] documented as of this encounter Visit Diagnoses Not on filedocumented in this encounter Additional Health Concerns Assessment Noted Time PHQ-9 Depression Total Score: 16 023 9:35 AM EST documented as of this encounter Care Teams Heavy Equipment Plumbing Supervisor Relationship Specialty Start Date End Date Name, MD Haresh [address] [place] [address] PCP - General Family Medicine 09/08/18 Bruce Dumas FNP [address] [place] [address] Nurse Practitioner Family Medicine 01/11/23 [place] [facility] 12/07/23 documented as of this encounter
--- OUTSIDE RECORDS SUMMARY | 2024-11-09 14:52 | XMS_ITS | Clinical Summary ---
Author Organization [employer] Address [address] [facility] [address] [place] [address] Care Team Providers Care Ballet Master/Mistress Name Role Phone Name, Haresh ELLIOTT Primary Care Provider [phone] Bruce Dumas Unavailable Unavailable Allergies Active Allergy [...] hyperglycemia, without long-term current use of insulin ([facility]) Use as directed 100 each 3 3 Active Blood Glucose Monitoring Suppl (FreeStyle glucose monitoring) kitIndications:T ype 2 diabetes mellitus with hyperglycemia, without long-term current use of insulin ([facility]) Use as directed 1 each 3 Active albuterol 108 (90 Base) MCG/ACT inhalerIndicatio ns:Asthma, unspecified asthma severity, unspecified whether complicated, unspecified whether persistent INHALE 2 PUFFS BY MOUTH FOUR TIMES DAILY NEEDED 8.5 g 1 3 Active Lancets (OneTouch Delica Plus [id number]) miscIndications: Type 2 diabetes mellitus with hyperglycemia, without long-term current use of insulin ([facility]) TEST BLOOD SUGAR [...] C. difficile diarrhea 12/24/2023 ESRD needing dialysis ([facility]) 12/24/2023 Fall 12/24/2023 Hyperkalemia 12/24/2023 Hypokalemia 12/24/2023 Major depression, recurrent 12/24/2023 Need for acute hemodialysis 12/24/2023 Rhabdomyolysis 12/24/2023 Status post umbilical hernia repair, follow-up e xam 12/24/2023 Swallowing problem 12/24/2023 Tachycardia 12/24/2023 Elevated lactic acid level 12/24/2023 Elevated troponin 12/24/2023 Transaminitis 12/24/2023 Deep venous thrombosis of ri ght profunda femoris vein ([facility]) 12/24/2023 Assessment & Plan (12/24/2023 4:14 PM EST): No signs of thrombophlebitis Continue on Elliquis 5 mg BID for anticoagulation At this time holding off on cardiology d/t consult during hospitalization at [facility] and no clear plan was indicated. At this time holding off on vascular d/t no record of duplex ultrasound from [facility], requested records today, depending on results will refer to vascular surgery. DMII (diabetes mellitus, type 2) 06/16/2022 Assessment & Plan (12/24/2023 4:17 PM EST): Glucose today 103, A1c at goal of 5.4 Metformin discontinue'd d/t CHITO Will continue with diabetic diet Morbid (severe) obesity due to excess calories ( [facility]) 06/16/2022 BRONSON (obstructive sleep apnea) 06/16/2022 Substance abuse ([facility]) 06/16/2022 Umbilical hernia 06/16/2022 PTSD (post-traumatic stress [...] alcohol, no tobacco. Lives in residential program ([facility]) with daily groups but no prescriber. Not working currently, has applied for disability. Pt reports some improved mood but hallucinations are not controlled, and ?mild paranoia/delusional thinking. Will add Abilify 5 mg once daily. Continue Prozac 40 mg daily, Trazodone 150 mg at bedtime. He will continue with supportive living situation, with therapist, and with supports from [facility] clinician and others in [place] [...] alcohol, no tobacco. Lives in residential program ([facility]) with daily groups but no prescriber. Not working currently, has applied for disability. Pt reports possible early improvement with addition of Prozac, will now increase to Prozac 40 mg daily. Not sleeping as well, will increase to Trazodone 150 mg at bedtime. He will continue with supportive living situation, and with supports from [facility] clinician and others in [place] [...] alcohol, no tobacco. Lives in residential program ([facility]) with daily groups but no prescriber. Not working currently, has applied for disability. At this time he will continue Trazodone 100 mg at bedtime. Will start Prozac 20 mg daily. Explained that he would not notice improvement right away, would likely be 3-4 weeks before gradual improvement noted, so be patient. He will continue with supportive living situation, and with supports from [facility] clinician and others in [place] [...] Health Integration Plan Internal Follow up with [facility]. We contacted [facility], for [...] Orders Only [facility] [address] [place] [address] Jordi Caro CNP Lung mass (Primary Dx) 09/08/2024 Telephone [place] [facility] [place] [address] Jordi Caro CNP 08/25/2024 3:45 PM EDT Office Visit [facility] [place] [address] Jordi Caro CNP Displaced fracture of fifth metatarsal bone, left foot, initial encounter for closed fracture (Primary Dx); Lung mass; Encounter for tobacco use cessation counseling 08/25/2024 Travel 08/24/2024 Telephone [facility] [place] [address] Julia Magallon MA Chart Prep 08/23/2024 Orders Only GENERIC EXTERNAL DATA DEPARTMENT Provider, Generic External Data 08/21/2024 Telephone [facility] [place] [address] Haresh Recinos MD ER Follow-up 08/17/2024 Telephone [facility] [place] [address] Haresh Recinos MD Nurse Triage from Last [...] the past 12 months, has t he [employer], gas, oil or water company threatened to [...] 08/25/2024 3:59 PM EDT Plan of Treatment Upcoming Encounters Date Type Department Care Team (Late st Contact Info) Description 11/30/2024 2:00 PM EDT Office Visit [facility] [address] [place] [address] Ritika Cooper, SE [address] [place] [address] Health Maintenance Due Date Last Done Comments [...] EDT) Sodium 139 135 - 145 mmol/L [facility] Potassium 4.3 3.3 - 5.1 mmol/L [facility] Chloride 107 96 - 108 mmol/L [facility] Carbon Dioxide 24 22 - 29 mmol/L [facility] Anion Gap 12 12 - 20 [facility] Urea Nitrogen (BUN) 18(H) 9 - 16 mg/dL [facility] Creatinine, Serum 1.79(H) 0.5 - 1.4 mg/dL [facility] Estimated Glomerular Filt Rate 40 [facility] Comment:Chronic Kidney Disea se: Estimated GFR < 60 mL/min/1.54u6Karejj Kidney Disease: Estimated GFR < 15 mL/min/1.73m2 Glucose 113 60 - 115 mg/dL [facility] Calcium 9.7 8.4 - 10.2 mg/dL [facility] 11/08/2024 11:2 3 AM EDT 11/08/2024 11:23 AM EDT us Generic External Data Provider LAB BLOOD ORDERAB LES Final Result [facility] [address] [place] [address] [phone] * Referral to Pulmonology (11/01/2024) [facility] OUTPATIENT REFERRAL ORDER QUITA Final Result * (ABNORMAL) CBC auto differential (08/23/2024 2:25 PM EDT) White Blood Count 7.8 4.8 - 10.8 X10*3/uL [facility] Red Blood Count 5.25 4.60 - 5.80 X10*6/uL [facility] Hemoglobin 14.6 14.0 - 18.0 g/dl [facility] Hematocrit 44.8 42.0 - 52.0 % [facility] Mean Corpuscular Volume 85.3 80.0 - 98.0 fL [facility] Mean Corpuscular Hemoglobin 27.8 27.0 - 33.0 pg [facility] Mean Corpuscular HGB Conc 32.6 31.0 - 36.0 g/dl [facility] Red Cell Distribution Width 14.0 11.0 - 16.0 % [facility] Platelet Count 340 160 - 400 X10*3/uL [facility] Mean Platelet Volume 8.3(L) 9.4 - 12.4 fL [facility] Neutrophils Percent Auto 73.4(H) 45 - 73 % [facility] Imm Gran Pct Auto 0.3 0.0 - 0.4 % [facility] Lymphocytes Percent Auto 17.6(L) 20 - 40 % [facility] Monocytes Percent Auto 4.9 2 - 11 % [facility] Eosinophils Percent Auto 3.3 0 - 4 % [facility] Basophils Percent Auto 0.5 0 - 2 % [facility] NRBC Pct Auto 0.0 0.0 - 0.2 /100WBC [facility] Neutrophils Absolute Auto 5.7 2.0 - 8.3 x10*3/uL [facility] Imm Gran Abs Auto 0.02 0.00 - 0.03 X10*3/uL [facility] Lymphocytes Absolute Auto 1.4 1.2 - 4.9 X10*3/uL [facility] Monocytes Absolute Auto 0.4 0.1 - 1.2 X10*3/uL [facility] Eosinophils Absolute Auto 0.3 0.0 - 0.4 X10*3/uL [facility] Basophils Absolute Auto 0.0 0.0 - 0.2 X10*3/uL [facility] NRBC Abs Auto 0.000 0.0 - 0.012 X10*3/uL [facility] 08/23/2024 2:25 PM EDT 08/23/2024 2:27 PM EDT us Generic External Data Provider LAB BLOOD ORDERAB LES Final Result Performing Organization Address [facility] Co de Phone Number [facility] [address] [place] [address] [phone] * B Type Natriuretic Peptide (BNP) (08/23/2024 2:25 PM EDT) B Type Natriuretic Peptide 18 <100 pg/mL [facility] 08/23/2024 2:25 PM EDT 08/23/2024 2:27 PM EDT us Generic External Data Provider LAB BLOOD ORDERAB LES Final Result Performing Organization Address [facility] Co de Phone Number [facility] [address] [place] [address] [phone] * Magnesium (08/23/2024 2:25 PM EDT) Magnesium 2.2 1.6 - 2.6 mg/dL [facility] 08/23/2024 2:25 PM EDT 08/23/2024 2:27 PM EDT us Generic External Data Provider LAB BLOOD ORDERAB LES Final Result Performing Organization Address [facility]/ZIP Co de Phone Number [facility] [address] [place] [address] [phone] * (ABNORMAL) Comprehensive Metabolic Panel (08/23/2024 2:25 PM EDT) Sodium 138 135 - 145 mmol/L [facility] Potassium 4.1 3.3 - 5.1 mmol/L [facility] Chloride 109(H) 96 - 108 mmol/L [facility] Carbon Dioxide 23 22 - 29 mmol/L [facility] Anion Gap 10(L) 12 - 20 [facility] Urea Nitrogen (BUN) 15 9 - 16 mg/dL [facility] Creatinine, Serum 1.83(H) 0.5 - 1.4 mg/dL [facility] Creatinine Clr Calc Pharmacy 59.6 [facility] Comment:eGFR (calculated fro m the MDRD study equation) and eCrCl(calculated from the Cockcroft-Gault equation) are based ondifferent parameters and may not yield comparable results.If eCrCl result is absurd, please check patient'sheight/weight. Estimated Glomerular Filt Rate 39 [facility] Comment:Chronic Kidney Disea se: Estimated GFR < 60 mL/min/1.59f9[place] Kidney Disease: Estimated GFR < 15 mL/min/1.73m2 Glucose 115 60 - 115 mg/dL [facility] Calcium 9.3 8.4 - 10.2 mg/dL [facility] Bilirubin, Total 0.2 0.0 - 1.0 mg/dL [facility] Aspartate Amino Transferase 21 5 - 37 U/L [facility] Alanine Aminotransferase 32 0 - 40 U/L [facility] Total Protein 7.5 6.5 - 8.0 g/dL [facility] Albumin Level 4.1 3.5 - 5.0 g/dL [facility] Alkaline Phosphatase 119(H) 39 - 117 U/L [facility] 08/23/2024 2:25 PM EDT 08/23/2024 2:27 PM EDT us Generic External Data Provider LAB BLOOD ORDERAB LES Final Result [facility] [address] [place] [phone] * XR Ankle 3+ Views Right (08/23/2024 1:37 PM EDT) Anatomical Region Laterality Modality Lower Extremities, Ankle Right Radiogr aphic Imaging 08/23/2024 1:37 PM EDT Narrative 08/23/2024 2:49 PM EDT [address] [address] XRay Report Signed Patient: Jason Martinez MR#: [id number] : 1970 Acct:[id number] Age/Sex: 54 / M ADM Date: 08/23/24 Loc: .ED Attending Dr: Ordering Physician: Deborah Nevarez Date of Service: 08/23/24 Procedure(s): XR ankle RT min 3V Accession Number(s): [id number] cc: [facility]; Deborah Nevarez EXAMINATION: XR ANKLE, RIGHT [...] 08/23/24 1445 DD/ 1337 TD/TT: 08/23/24 1440 Corporate Development Analyst: Procedure Note Donotuseinterpreter, Image - 08/23/[address] [address] XRay Report Signed Patient: Jason Martinez LMR#: [id number] : 1970Acct:[id number] Age/Sex: 54 / MADM Date: 08/23/24 Loc: HO.ED Attending Dr: Ordering Physician: Deborah Nevarez Date of Service: 08/23/24 Procedure(s): XR ankle RT min 3V Accession Number(s): [id number] cc: [facility]; Deborah Nevarez EXAMINATION: XR ANKLE, RIGHT [...] 08/23/24 1445 DD/ 1337 TD/TT: 08/23/24 1440 Corporate Development Analyst: [facility] External Provider IMG XR PROCEDURES Final Result * XR Foot 3+ Views Right (08/23/2024 1:35 PM EDT) Anatomical Region Laterality Modality Lower Extremities, Foot Right Radiogra phic Imaging 08/23/2024 1:35 PM EDT Narrative 08/23/2024 2:51 PM EDT [address] [address] XRay Report Signed Patient: Jason Martinez MR#: [id number] : 1970 Acct:[id number] Age/Sex: 54 / M ADM Date: 08/23/24 Loc: HO.ED Attending Dr: Ordering Physician: Deborah Nevarez Date of Service: 08/23/24 Procedure(s): XR foot RT min 3V Accession Number(s): [id number] cc: [facility]; Deborah Nevarez EXAMINATION: XR FOOT, RIGHT [...] 08/23/24 1448 DD/ 1335 TD/TT: 08/23/24 1440 Corporate Development Analyst: Procedure Note Donotsallyinterpreter, Image - 08/23/[address] [address] XRay Report Signed Patient: Jason Martinez LMR#: [id number] : 1970Acct:[id number] Age/Sex: 54 / MADM Date: 08/23/24 Loc: HO.ED Attending Dr: Ordering Physician: Deborah Nevarez Date of Service: 08/23/24 Procedure(s): XR foot RT min 3V Accession Number(s): [id number] cc: [facility]; Deborah Nevarez EXAMINATION: XR FOOT, RIGHT [...] 08/23/24 1448 DD/ 1335 TD/TT: 08/23/24 1440 Corporate Development Analyst: us [facility] External Provider IMG XR PROCEDURES Final Result * Creatinine, Random Urine (06/20/2024 1:30 PM EDT) Creatinine, Urine 411.85 mg/dL [facility] 06/20/2024 1:30 PM EDT 06/20/2024 1:40 PM EDT Generic External Data Provider LAB URINE ORDERAB LES Final Result [facility] [address] [place] [phone] * POCT HGB A1C (04/06/2024 9:27 AM EST) Hemoglobin A1C 5.8 4.0 - 6.0 % QC Media Lot # [id number] Lot# Expiration Date [id number] Blood 04/06/2024 9:27 AM EST Haresh Recinos MD POINT OF CARE TEST ENTER/EDIT OR DERABLES Final Result * (ABNORMAL) Lipid Panel, Standard (05/19/2023 12:02 PM EDT) Triglycerides 379(H) <150 mg/dL [facility] Comment:Desirable Triglyceri de: less than 150 mg/dLBorderline High Triglyceride 150-199 mg/dLHigh Triglyceride: 200-499 mg/dLVery High Triglyceride: greater than or equal to 5OO mg/dL Cholesterol 217(H) <200 mg/dL [facility] Comment:Desirable Cholestero l: less than 200 mg/dLBorderline High Cholesterol: 200-239 mg/dLHigh Cholesterol: greater than 239 mg/dL LDL Cholesterol Calculated 114(H) <100 mg/dL [facility] Comment:Desirable LDL: less than 100 mg/dLNear Optimal/Above Optimal LDL: 110- 129 mg/dLBorderline High LDL: 130-159 mg/dLHigh LDL: 160-189 mg/dLVery High LDL: greater than or equal to 190 mg/dL HDL Cholesterol 28(L) >40 mg/dL [facility] Comment:Desirable HDL: great er than 40 mg/dL Note: This HDL assay may give artificially low results in patients with liver disease. Blood Venous blood specimen / Unknown 05/19/2023 12:02 PM EDT 05/19/2023 1:38 PM EDT us Haresh Recinos MD LAB BLOOD ORDERABLES Final Resul t [facility] [address] [place] [address] [phone] * HEPATITIS C AB W/REFL TO [...] a test for HCV RNA (test code 53379) is suggested. For additional information please refer to http://PartyWithMe.Promon/faq/PBX23n2 (This link is being provided for informational/ [...] purpose. For additional information please refer to http://education.Promon/faq/KUO691 (This link is being provided for informational/ educational purposes only.) The performance of this assay has not been clinically validated in patients less than 2 years old. 11/27/2021 11:2 2 AM EDT Montse Duffy MD LAB BLOOD ORDERABLES Final R esult CON[facility] from Last 3 Months or Most Recently Relevant to Health Maintenance Insurance [facility] < [address] [place] [id number] [facility] Care Teams Ballet Master/Mistress Relationship Specialty Start Date End Date Name, MD Haresh [address] [place] [address] PCP - General Family Medicine 09/08/18 Bruce Dumas FNP [address] [place] [address] Nurse Practitioner Family Medicine 01/11/23 [facility] 12/07/23
== END 2024-11-09 13:38 | disposition home or self-care (01) ==
LOC: HO.HKA 13:23
PROVIDERS: PCP Internal Medicine Geriatric Medicine; Visit Provider Internal Medicine Hypertension Specialist
DX: N17.9 Acute kidney failure, unspecified (principal); N18.32 Chronic kidney disease, stage 3b
CPT/HCPCS: 99214

== ENCOUNTER → 2024-11-09 13:23 | Outpatient (BNVA) | payer OTHER, SELFPAY | PROVIDERS: PCP Internal Medicine Geriatric Medicine; Visit Provider Internal Medicine Hypertension Specialist | DX: N17.9 Acute kidney failure, unspecified (principal); I12.9 Hypertensive chronic kidney disease with stage 1 through stage 4 chronic kidney disease, or unspecified chronic kidney disease; N18.32 Chronic kidney disease, stage 3b | CPT/HCPCS: 99212 ==

== ENCOUNTER 2024-12-19 14:35 | Outpatient (REF) | payer OTHER, SELFPAY ==
--- NOTE | ~2024-12-19 | CT_ITS ---
EXAMINATION: CT CHEST WITHOUT CONTRAST CLINICAL INFORMATION: R91.8 - Other nonspecific abnormal finding of lung field COMPARISON: None available. TECHNIQUE: Multidetector volumetric CT imaging of the chest was done. Axial MIP volume rendering provided. Sagittal and coronal reformatted images were obtained. This CT examination was performed using dose optimization techniques as appropriate, variously including the following: *Automated exposure control *Adjustment of mA and/or kV according to patient size (this includes techniques or standardized protocols for targeted exams where dose is matched to indication/reason for exam; i.e. extremities or head) *Use of iterative reconstruction technique FINDINGS: LUNGS: There are multiple soft tissue densities in the right upper lobe. The largest is in the posterior segment of the right upper lobe and measures 3.7 x 4.1 cm. It demonstrates air bronchograms. MEDIASTINUM: The mediastinum is normal. CORONARY ARTERY CALCIFICATION: None visualized on this study. PLEURA: There is no pleural effusion. No pleural mass or thickening. AXILLA: No lymphadenopathy. UPPER ABDOMEN: Unremarkable. OSSEOUS STRUCTURES: Large bridging and nonbridging osteophytes are present in the anterior mid to lower thoracic spine. . CT/CT chest wo IV con IMPRESSION: There are multiple solid nodules in the right upper lobe. The largest measures 3.7 x 4.1 cm and is highly suspicious for malignancy. Fleischner Society recommendation states consider CT at 3 months, PET/CT, or tissue sampling. Changes in thoracic spine are consistent with diffuse idiopathic skeletal hyperostosis (DISH) Fleischner guidelines were followed. Electronically signed by: Arnoldo Arcos MD 12/19/2024 05:30 PM SY
--- OUTSIDE RECORDS SUMMARY | 2024-12-19 16:18 | XMS_ITS | Encounter Summary ---
Author Organization [employer] Address [address] [place] [address] Care Team Providers Care Supervisor Wood Room Name Role Phone Name, Haresh ELLIOTT Primary Care Provider [phone] Bruce Dumas Unavailable Unavailable Reason for Visit * Reason Onset Date Comments Appointment Request 03/15/2024 Encounter Details Date Type Department Care Team ([facility] st Contact Info) Description 03/15/2024 Telephone [facility] [address], [place] [phone] Name, MD Haresh [address] [place] [address] Appointment Request Social History Tobacco Use Types [...] on a recall list. Contact pt at [phone] documented in this encounter Plan of Treatment Upcoming Encounters Date Type Department Care Team (Late st Contact Info) Description 12/21/2024 1:30 PM EST Office Visit [facility] [address] [place] [address] Ritika Cooper DDS [address] [place] [address] 12/22/2024 3:00 PM EST Office Visit [facility] [address] [place] [address] Dorothy Mckeon documented as of this encounter Visit Diagnoses Not on filedocumented in this encounter Additional Health Concerns Assessment Noted Time PHQ-9 Depression Total Score: 16 023 9:35 AM EST documented as of this encounter Care Teams Supervisor Wood Room Relationship Specialty Start Date End Date Name, MD Haresh [address] [place] [address] PCP - General Family Medicine 09/08/18 Bruce Dumas FNP [address] [place] [address] Nurse Practitioner Family Medicine 01/11/23 [facility] 12/07/23 documented as of this encounter
--- OUTSIDE RECORDS SUMMARY | 2024-12-19 16:18 | XMS_ITS | Data Portability ---
Author Organization [employer], [facility] Address [address] [place] [address] Care Team Providers Care Model Builder Name Role Phone Unavailable OTHER HIM CCA OTHER Assessment Encounter Date Assessment Date Assessment [...] less likely infectious). Will need transfer. Plan: [facility] ER. Signed out at 1:45pm. Jarrett SARMIENTO I provided real -time medical direction via phone for this encounter, and was available for additional phone based assistance as needed. I have reviewed and agree with the Assessment and Plan as documented by the Accounting Support Specialist. We discussed the diagnostic uncertainty of home [...] Imaging electrocard iogram 2024 025 cfischett i7 [facility], [address] [place] [address], [id number] 13:27:04 Medication Orders None recorded. Patient TargetsNo targets recorded. Patient InstructionsNo instructions recorded. Reason for Referral None Reported. Results Created Date Observation Date Name Description Value Unit Range Abnormal Flag Note LastModifiedBy Organization Detail LastModifiedTime 08/18/1908/17/2024 elect maci sandsgr am No observ ation record ed. [facility] [address], [phone] 08/17/2024 14:58:58 Result Notes None recorded. Medical Equipment None Reported. Allergies Allergen ID Allergen Name Allergen Category Reaction Reaction Severity Criticality Documentation Date Start Date Code Code System Note Provider Name and Address Organization Details Recorded Time 11196 clonazepa m medicatio n Not available Not available Not available 08/17/2024 2598 RxNorm Not Available [facility] - production 12:18:59 72658 morphine medicatio n Not available Not available Not available 08/17/2024 7052 RxNorm Not Available [facility] - production 12:18:59 10529 aspirin medicatio n Not available Not available Not available 08/17/2024 1191 RxNorm Not Available [facility] - production 12:18:59 Medications Name Sig Start [...] Diagnosis SNOMED-CT Code Diagnosis ICD10 Code Diagnosis IMO Codes Diagnosis Note [id number] SOLANGE BRISENO MD [facility] [address] [place] [address] 08/17/2024 13:20:27 08/17/2024 14:24:41 Chest pain 32915879 R07.9 [id number] Health Concerns Section Related Observation LastModified by Organization Detai ls LastModified Time None Recorded Concern Status LastModified by Organization Details LastModified Time None Recorded Advance Directives Directive None Recorded Payers Insurance Date Sequence Insurance Name Policy Number Policy Doss Covered Member ID Doss Member ID Guarantor Name 09/12/2024 1 [facility] - DOS ON OR AFTER 2022 - DUAL ELIGIBLE - GROUP HOME OPTIONS AND ONE CARE (MEDICARE REPLACEMENT/ADV ANTAGE - HMO) Jason Martinez [id number] Jason Martinez Notes Date Note Type Note Provider Name and Address Organization Details Recorded Time 08/17/2024 text/html ROS as noted in the HPI HPI: Patient with extensive history including Tachycardia [...] at 08/17/2024 - 12:18 Comments: HPI reviewed Accounting Support Specialist Organization Information for Eugene Snowden Legal Name: [employer] Address: [address] [place] [address], Supervisor Sawing And Assembly: Byron Todd MD CLIA No.: [id number] Accounting Support Specialist POC Test Results from Eugene Snowden EKG (13:11:38) EKG test performed. Attachments uploaded as part of this test result can be found under Documents section. .................. .................. .................. .................. .................. .................. .................. ............... Accounting Support Specialist Note From Eugene Snowden: Pt seen for [...] with no ectopy. 12 lead non diagnostic. [facility] contacted and advised of Pt complaint, presentation and exam findings. [facility] request Pt be sent to ED, Pt request to go to [facility], [facility] informed of this. EMS called via 911, Pt care and transport turned over to [facility] crew with [facility], call closed. .................. .................. .................. .................. .................. .................. .................. ............... [facility] Consulted: Solange Briseno .................. .................. .................. .................. .................. .................. .................. ............... Disposition: Fulfilled SOLANGE BRISENO MD [address] [place] [address],[address] [facility], [place], [address], JEFE BERG 08/17/2024 14:19:36
--- OUTSIDE RECORDS SUMMARY | 2024-12-19 16:18 | XMS_ITS | Encounter Summary ---
Author Organization [employer] Address [address] [place] [address] [address] [place] [address] Care Team Providers Care Glove Cutter Name Role Phone Name, Haresh ELLIOTT Primary Care Provider [phone] Bruce Dumas Unavailable Unavailable Reason for Visit * Reason Onset Date Comments No Show 10/06/2022 Encounter Details Date Type Department Care Team ([facility] st Contact Info) Description 10/06/2022 Telephone [facility] MEDICINE [address] [place] [address] Name, MD Haresh [address] [place] [address] No Show Social History Tobacco Use Types [...] accepted this outcome Please contact pt at [phone] documented in this encounter Plan of Treatment Upcoming Encounters Date Type Department Care Team (Late st Contact Info) Description 12/21/2024 1:30 PM EST Office Visit [facility] ADULT DENTAL [address] [place] [address] Ritika Cooper DDS [address] [place] [address] 12/22/2024 3:00 PM EST Office Visit [facility] ADULT DENTAL [address] [place] [address] Dorothy Mckeon documented as of this encounter Visit Diagnoses Not on filedocumented in this encounter Additional Health Concerns Assessment Noted Time PHQ-9 Depression Total Score: 17 023 4:02 PM EDT documented as of this encounter Care Teams Glove Cutter Relationship Specialty Start Date End Date Name, MD Haresh [address] [place] [address] PCP - General Family Medicine 09/08/18 Bruce Dumas FNP [address] [place] [address] Nurse Practitioner Family Medicine 01/11/23 [place] [facility] 12/07/23 documented as of this encounter
--- OUTSIDE RECORDS SUMMARY | 2024-12-19 16:19 | XMS_ITS | Encounter Summary ---
Author Organization [employer] Address [address] [facility] [address]t [place] [address] Care Team Providers Care Gamb Cutter Name Role Phone Name, Haresh ELLIOTT Primary Care Provider [phone] Bruce Dumas Unavailable Unavailable Reason for Visit * Reason Comments Med Refill Encounter Details Date Type Department Care Team ([facility] st Contact Info) Description 02/15/2023 Refill [facility] MEDICINE [address] [place], [place] [phone] Tracie Henry DO [address] [place] [address] Social History Tobacco Use Types Packs/Day Years [...] Description 12/21/2024 1:30 PM EST Office Visit [facility] ADULT [facility] [address] [place] [address] Ritika Cooper DDS [address] [place] [address] 12/22/2024 3:00 PM EST Office Visit [facility]ULT [facility] [address] [place] [address] Dorothy Mckeon documented as of this encounter Visit Diagnoses Not on filedocumented in this encounter Additional Health Concerns Assessment Noted Time PHQ-9 Depression Total Score: 16 023 9:35 AM EST documented as of this encounter Care Teams Gamb Cutter Relationship Specialty Start Date End Date Name, MD Haresh [address] [place] [address] PCP - General Family Medicine 09/08/18 Bruce Dumas FNP [address] [place] [address] Nurse Practitioner Family Medicine 01/11/23 [facility] 12/07/23 documented as of this encounter
--- OUTSIDE RECORDS SUMMARY | 2024-12-19 16:20 | XMS_ITS | Encounter Summary ---
Author Organization [employer] Address [address] [facility] 7t [place] [address] Care Team Providers Care Parcel Post Truck Driver Name Role Phone Name, Haresh ELLIOTT Primary Care Provider [phone] Bruce Dumas Unavailable Unavailable Reason for Visit * Reason Comments Med Refill Encounter Details Date Type Department Care Team ([facility] st Contact Info) Description 02/18/2023 Refill [facility] MEDICINE [address] [place] [address] Montse Duffy MD [address] [place] [address] Uncomplicated opioid dependence (CMS/HCC) Social History Tobacco [...] with others, in a hotel, in a long term, living outside on the street, on a [...] Description 12/21/2024 1:30 PM EST Office Visit [facility] ADULT DENTAL [address] [place] [address] Ritika Cooper DDS [address] [place] [address] 12/22/2024 3:00 PM EST Office Visit [facility] ADULT DENTAL [address] [place] [address] Dorothy Mckeon documented as of this encounter Visit Diagnoses Diagnosis Uncomplicated opioid dependence (CMS/HCC) (HCC) documented in this encounter Additional Health Concerns Assessment Noted Time PHQ-9 Depression Total Score: 16 023 9:35 AM EST documented as of this encounter Care Teams Par[employer] Post Truck Driver Relationship Specialty Start Date End Date Name, MD Haresh [address] [place] [address] PCP - General Family Medicine 09/08/18 Bruce Dumas FNP [address] [place] [address] Nurse Practitioner Family Medicine 01/11/23 [facility] 12/07/23 documented as of this encounter
--- OUTSIDE RECORDS SUMMARY | 2024-12-19 16:20 | XMS_ITS | Encounter Summary ---
Author Organization [employer] Address [address] [facility] 7[address] [place] [address] Care Team Providers Care Swage Tender Name Role Phone Name, Haresh ELLIOTT Primary Care Provider [phone] Bruce Dumas Unavailable Unavailable Reason for Visit * Reason Comments Med Refill Encounter Details Date Type Department Care Team (Late st Contact Info) Description 01/22/2022 Refill [facility] MEDICINE [address] [place] [address] Name, MD Haresh [address] [place] [address] Social History Tobacco Use Types Packs/Day Years [...] Description 12/21/2024 1:30 PM EST Office Visit [facility] ADULT DENTAL [address] [place] [address] Ritika Cooper DDS [address] [place] [address] 12/22/2024 3:00 PM EST Office Visit [facility] ADULT DENTAL [address] [place] [address] Dorothy Mckeon documented as of this encounter Visit Diagnoses Not on filedocumented in this encounter Care Teams Swage Tender Relationship Specialty Start Date End Date Name, MD Haresh [address] [place] [address] PCP - General Family Medicine 09/08/18 Bruce Dumas FNP [address] [place] [address] Nurse Practitioner Family Medicine 01/11/23 [place] [facility] 12/07/23 documented as of this encounter
--- OUTSIDE RECORDS SUMMARY | 2024-12-19 16:21 | XMS_ITS | Encounter Summary ---
Author Organization [employer] Address [address] [facility] 7t [place] [address] Care Team Providers Care Manager Audit Name Role Phone Name, Haresh ELLIOTT Primary Care Provider [phone] Bruce Dumas Unavailable Unavailable Reason for Visit * Reason Onset Date Comments FYI 12/09/2023 Encounter Details Date Type Department Care Team ([facility] Contact Info) Description 12/09/2023 Telephone [facility] MEDICINE [address] [place], [place] [phone] Name, MD Haresh [address] [place] [address] FYI Social History Tobacco Use Types Packs/Day [...] - 12/09/2023 4:16 PM EDT Tc from [facility] to inform pcp they have started PT services with pt. documented in this encounter Plan of Treatment Upcoming Encounters Date Type Department Care Team (Late st Contact Info) Description 12/21/2024 1:30 PM EST Office Visit [facility] ADULT DENTAL [address] [place] [address] Tao-Sebastian, [place], DDS [address] [place] [address] 12/22/2024 3:00 PM EST Office Visit [facility] ADULT DENTAL [address] [place] [address] Dorothy Mckeon documented as of this encounter Visit Diagnoses Not on filedocumented in this encounter Additional Health Concerns Assessment Noted Time PHQ-9 Depression Total Score: 16 023 9:35 AM EST documented as of this encounter Care Teams Manager Audit Relationship Specialty Start Date End Date Name, MD Haresh [address] [place] [address] PCP - General Family Medicine 09/08/18 Bruce Dumas FNP [address] [place] [address] Nurse Practitioner Family Medicine 01/11/23 [place] [facility] 12/07/23 documented as of this encounter
--- OUTSIDE RECORDS SUMMARY | 2024-12-19 16:21 | XMS_ITS | Encounter Summary ---
Author Organization [employer] Address [address] [facility] 7t [place] [address] Care Team Providers Care Audio Visual Collections Coordinator Name Role Phone Name, Haresh ELLIOTT Primary Care Provider [phone] Bruce Dumas Unavailable Unavailable Reason for Visit * Reason Onset Date Comments Hospital Follow-up 12/09/2023 Encounter Details Date Type Department Care Team ([facility] Contact Info) Description 12/09/2023 Telephone [facility] MEDICINE [address] [place] [address] Name, MD Haresh [address] [place] [address] Hospital Follow-up Social History Tobacco Use Types [...] from pt requesting a HDF appt. Hospital: [facility] Date of admission: States about 5 months ago Discharge date: 12/08/23 Diagnosed: mild stroke documented in this encounter Plan of Treatment Upcoming Encounters Date Type Department Care Team (Late st Contact Info) Description 12/21/2024 1:30 PM EST Office Visit [facility] ADULT DENTAL [address] [place] [address] Ritika Cooper DDS [address] [place] [address] 12/22/2024 3:00 PM EST Office Visit [facility] ADULT DENTAL [address] [place] [address] Dorothy Mckeon documented as of this encounter Visit Diagnoses Not on filedocumented in this encounter Additional Health Concerns Assessment Noted Time PHQ-9 Depression Total Score: 16 01/21/2 023 9:35 AM EST documented as of this encounter Care Teams Audio Visual Collections Coordinator Relationship Specialty Start Date End Date Name, MD Haresh [address] [place] [address] PCP - General Family Medicine 09/08/18 Bruce Dumas FNP [address] [place] [address] Nurse Practitioner Family Medicine 01/11/23 [facility] 12/07/23 documented as of this encounter
--- OUTSIDE RECORDS SUMMARY | 2024-12-19 16:22 | XMS_ITS | Clinical Summary ---
Author Organization [employer] Address [address] [facility] [facility] [address] [place] [address] Care Team Providers Care Chainman Name Role Phone Name, Harehs ELLIOTT Primary Care Provider [phone] Bruce Dumas Unavailable Unavailable Allergies Active Allergy Reactions Criticality Noted Date Comments Aspirin 03/21/2014 Other reaction(s): SWELLING, NAUSEA, VOMITING Other Reaction(s): SWELLING, NAUSEA, VOMITING Other Reaction(s): Not available Clonazepam 05/27/2018 Other Reaction(s): Not available Morphine 05/27/2018 Other Reaction(s): Not available Medications * This document contains information received from the source organization and may not represent a complete record from that organization. naloxone (Narcan) 4 mg/0.1 mL nasal spray Administer 0.1 mL into affected nostril(s). 11/19/19 22 Active Alcohol Swabs (Alcohol Prep) padsIndications :Type 2 diabetes mellitus with hyperglycemia, without long-term current use of insulin (HCC) Use as directed 100 each 3 06/09/19 23 Active Blood Glucose Monitoring Suppl (FreeStyle glucose monitoring) kitIndications: Type 2 diabetes mellitus with hyperglycemia, without long-term current use of insulin (HCC) Use as directed 1 each 06/09/19 23 Active albuterol 108 (90 Base) MCG/ACT inhalerIndicati ons:Asthma, unspecified asthma severity, unspecified whether complicated, unspecified whether persistent INHALE 2 PUFFS BY MOUTH FOUR TIMES DAILY NEEDED 8.5 g 1 09/02/19 23 Active Lancets (OneTouch Delica Plus Iohxzp40M) miscIndications :Type 2 diabetes mellitus with hyperglycemia, without long-term current use of insulin (HCC) TEST BLOOD SUGAR TWICE DAILY 100 each [...] 30 tablet 11 04/06/19 25 2025 Active acetaminophen (Tylenol 8 Hour) 650 MG ER tabletIndicatio ns:Periodontal disease,History of tooth extraction, unspecified edentulism class Take 1 tablet (650 mg) by mouth every 8 (eight) hours if needed for mild pain. Do not crush, chew, or split. 30 tablet 2 05/27/19 25 Active traZODone (Desyrel) 50 MG tablet TAKE 1/2 TABLET BY MOUTH AT BEDTIME 15 tablet 07/05/19 25 Active sertraline (Zoloft) 25 MG tablet TAKE 1/2 TABLET BY MOUTH EVERY DAY 15 tablet 07/05/19 25 Active acetaminophen-c odeine (Tylenol #2) 300-15 MG tablet Take 1 tablet by mouth. 08/25/19 25 Active nicotine polacrilex (Nicorette) 4 MG gumIndications: Encounter for tobacco use cessation counseling Chew 1 each (4 mg) if needed for smoking cessation. 100 each 08/30/19 25 Active gabapentin (Neurontin) 100 MG capsule TAKE 1 CAPSULE BY MOUTH TWICE DAILY 60 capsule 3 12/12/19 25 Active gabapentin (Neurontin) 100 MG capsule Take 1 capsule (100 mg) by mouth 2 times daily. 60 capsule 3 04/06/19 25 2024 Discontinued Active Problems Problem Noted Date Diagnosed Date Displaced fracture of fifth metatarsal bone, left foot, initial encounter for closed fracture 08/25/2024 Periodontal disease 05/26/2024 History of tooth extraction 05/26/2024 Acute DVT (deep venous thrombosis) ([facility]) CHITO (acute kidney injury) 12/24/2023 Assessment & Plan (12/24/2023 4:15 PM EST): Ordered BMP and CBC today to monitor renal function, plan to have patient complete labs today however d/t time constraints pt left without completing labs. Will refer to nephrology today C. difficile diarrhea 12/24/2023 ESRD needing dialysis ([facility]) 12/24/2023 Fall 12/24/2023 Hyperkalemia 12/24/2023 Hypokalemia 12/24/2023 Major depression, recurrent 12/24/2023 Need for acute hemodialysis 12/24/2023 Rhabdomyolysis 12/24/2023 Status post umbilical hernia repair, follow-up e xam 12/24/2023 Swallowing problem 12/24/2023 Tachycardia 12/24/2023 Elevated lactic acid level 12/24/2023 Elevated troponin 12/24/2023 Transaminitis 12/24/2023 Deep venous thrombosis of ri ght profunda femoris vein ([facility]) 12/24/2023 Assessment & Plan (12/24/2023 4:14 PM EST): No signs of thrombophlebitis Continue on Elliquis 5 mg BID for anticoagulation At this time holding off on cardiology d/t consult during hospitalization at [facility] and no clear plan was indicated. At this time holding off on vascular d/t no record of duplex ultrasound from [facility], requested records today, depending on results will refer to vascular surgery. DMII (diabetes mellitus, type 2) 06/16/2022 Assessment & Plan (12/24/2023 4:17 PM EST): Glucose today 103, A1c at goal of 5.4 Metformin discontinue'd d/t CHITO Will continue with diabetic diet Morbid (severe) obesity due to excess calories ( [facility]) 06/16/2022 BRONSON (obstructive sleep apnea) 06/16/2022 Substance abuse ([facility]) 06/16/2022 Umbilical hernia 06/16/2022 PTSD (post-traumatic stress [...] situation, with therapist, and with supports from [facility] clinician and others in Suboxone program. F/u [...] supportive living situation, and with supports from [facility] clinician and others in Suboxone program. F/u [...] supportive living situation, and with supports from [facility] clinician and others in Suboxone program. F/u [...] Health Integration Plan Internal Follow up with [facility]. We contacted [facility], for intake for therapy and psychiatry. [...] Encounters Date Type Department Care Team Description 12/11/2024 2:00 PM EST Office Visit [facility] [address] [place] [address] Kenneth Ritika, DDS Edentulous maxilla (Primary Dx); Partially edentulous mandible, class II edentulism 12/10/2024 Refill [facility] [address] [place] [address] Name, MD Haresh 11/30/2024 2:00 PM EDT Office Visit [facility] [address] [place] [address] TaoZenaidaSebastian, Ritika, DDS Edentulous maxilla (Primary Dx) 11/08/2024 Orders Only GENERIC EXTERNAL DATA DEPARTMENT Provider, Generic External Data from Last 3 Months Immunizations Immunization Administration Dates Next Due Hep B, adult 08/26/1999 MMR 03/01/2012 Pfizer Covid-19 Vaccine 12+ 10/16/2020, 1 Social History Tobacco Use Types Packs/Day Years [...] Description 12/21/2024 1:30 PM EST Office Visit [facility] [address] [place] [address] Ritika Cooper, DDS [address] [place] [address] 12/22/2024 3:00 PM EST Office Visit [facility] [address] [place] [address] Dorothy Mckeon Health Maintenance Due Date Last [...] Protein Screening 06/20/2025 06/20/2024, 05/19/2023 Tobacco Screening 12/11/2025 12/11/2024 Dental X-Ray: Full Mouth 04/12/2027 04/10/2024, 11/09 [...] Procedure Name Priority Date/Time Associated Diagnosis Comments BITE REGISTRATION Routine 12/11/2024 2:0 0 PM EST Edentulous maxilla Partially edentulous mandible, class II edentulism DENTURE IMPRESSION Routine 11/30/2024 2: 00 PM EDT Edentulous maxilla BASIC METABOLIC PANEL Routine 11/08/2024 11:23 AM EDT AMB REFERRAL TO PULMONOLOGY Routine 11/01/2024 Lung mass CREATININE, RANDOM URINE Routine 06/20/2024 1:30 PM [...] EDT) Sodium 139 135 - 145 mmol/L [facility] Potassium 4.3 3.3 - 5.1 mmol/L [facility] Chloride 107 96 - 108 mmol/L [facility] Carbon Dioxide 24 22 - 29 mmol/L [facility] Anion Gap 12 12 - 20 [facility] Urea Nitrogen (BUN) 18(H) 9 - 16 mg/dL [facility] Creatinine, Serum 1.79(H) 0.5 - 1.4 mg/dL [facility] Estimated Glomerular Filt Rate 40 [facility] Comment:Chronic Kidney Disea se: Estimated GFR < 60 mL/min/[id number] Kidney Disease: Estimated GFR < 15 mL/min/1.73m2 Glucose 113 60 - 115 mg/dL [facility] Calcium 9.7 8.4 - 10.2 mg/dL [facility] 11/08/2024 11:2 3 AM EDT 11/08/2024 11:23 AM EDT [employer] External Data Provider LAB BLOOD ORDERAB LES Final Result [facility] [address] [place] [phone] * Referral to Pulmonology (11/01/2024) [facility] OUTPATIENT REFERRAL ORDER QUITA Final Result * Creatinine, Random Urine (06/20/2024 1:30 PM EDT) Creatinine, Urine 411.85 mg/dL [facility] 06/20/2024 1:30 PM EDT 06/20/2024 1:40 PM EDT us Generic External Data Provider LAB URINE ORDERAB LES Final Result [facility] [address] [place] [address] [phone] * POCT HGB A1C (04/06/2024 9:27 AM EST) Hemoglobin A1C 5.8 4.0 - 6.0 % QC Media Lot # [id number] Lot# Expiration Date 2178 Blood 04/06/2024 9:27 AM EST Haresh Recinos MD POINT OF CARE TEST ENTER/EDIT OR DERABLES Final Result * (ABNORMAL) Lipid Panel, Standard (05/19/2023 12:02 PM EDT) Triglycerides 379(H) <150 mg/dL [facility] Comment:Desirable Triglyceri de: less than 150 mg/dLBorderline High Triglyceride 150-199 mg/dLHigh Triglyceride: 200-499 mg/dLVery High Triglyceride: greater than or equal to 5OO mg/dL Cholesterol 217(H) <200 mg/dL [facility] Comment:Desirable Cholestero l: less than 200 mg/dLBorderline High Cholesterol: 200-239 mg/dLHigh Cholesterol: greater than 239 mg/dL LDL Cholesterol Calculated 114(H) <100 mg/dL [facility] Comment:Desirable LDL: less than 100 mg/dLNear Optimal/Above Optimal LDL: 110- 129 mg/dLBorderline High LDL: 130-159 mg/dLHigh LDL: 160-189 mg/dLVery High LDL: greater than or equal to 190 mg/dL HDL Cholesterol 28(L) >40 mg/dL [facility] Comment:Desirable HDL: great er than 40 mg/dL Note: This HDL assay may give artificially low results in patients with liver disease. Blood Venous blood specimen / Unknown 05/19/2023 12:02 PM EDT 05/19/2023 1:38 PM EDT us Haresh Name MD LAB BLOOD ORDERABLES Final Resul t [facility] [address] [place] [address] [phone] * HEPATITIS C AB W/REFL TO [...] a test for HCV RNA (test code 14849) is suggested. For additional information please refer to http://INTTRA.Order Mapper/faq/APY84z9 (This link is being provided for informational/ educational purposes only.) 11/27/2021 11:2 2 AM EDT Montse Duffy [...] purpose. For additional information please refer to http://INTTRA.Order Mapper/faq/BXT355 (This link is being provided for informational/ educational purposes only.) The performance of this assay has not been clinically validated in patients less than 2 years old. 11/27/2021 11:2 2 AM EDT Montse Duffy MD LAB BLOOD ORDERABLES Final R esult CONVERTED LEGACY LABS from Last 3 Months or Most Recently Relevant to Health Maintenance Insurance [address] [place] [id number] [facility] < [address] [place] [phone] [facility] Care Teams Chainman Relationship Specialty Start Date End Date Name, MD Haresh [address] [place] [address] PCP - General Family Medicine 09/08/18 Bruce Dumas FNP [address] [place] [address] Nurse Practitioner Family Medicine 01/11/23 [facility] 12[facility]07[facility]23
== END 2024-12-19 14:36 | disposition home or self-care (01) ==
LOC: HO.CT 14:35
PROVIDERS: PCP Internal Medicine Geriatric Medicine; Visit Provider Internal Medicine Pulmonary Disease
DX: R91.8 Other nonspecific abnormal finding of lung field (principal)
CPT/HCPCS: 71250

== ENCOUNTER → 2024-12-19 14:36 | Outpatient (BNV) | payer OTHER, SELFPAY | PROVIDERS: PCP Internal Medicine Geriatric Medicine; Visit Provider Radiology Diagnostic Radiology | DX: R91.8 Other nonspecific abnormal finding of lung field (principal) | CPT/HCPCS: 71250 ==

== ENCOUNTER 2024-12-28 12:20 | Outpatient (AMB) | payer OTHER, SELFPAY ==
[2024-12-28 13:36] VITALS: BP 118/77; PULSE 104; O2SAT 96; BMI 43.0
--- NOTE | 2024-12-28 13:36 | A.OFFVIS_ITS ---
Vital Signs 12/28/24 13:36 Height 5 ft 8 in Weight 283 lb BMI 43.0 BP 118/77 Blood Pressure Location Lt brachial Position Sitting Pulse 104 H Pulse Source Pulse Oximeter Pulse Oximetry (%) 96 Oxygen Delivery Method Room Air Intake Visit Reasons: Lung Mass/CAM Allergies aspirin (ASPIRIN) Allergy (Unknown, Verified 12/28/24 13:43) SWELLING, NAUSEA, VOMITING HPI HPI Lung Mass/CAM: Details: 54-year-old gentleman, active approximately 15 pack-year smoker with underlying obesity, BRONSON, CKD, AFib on Eliquis recently evaluated in the emergency room for dyspnea and noted to have abnormal chest x-ray with elevation of possible right- sided lung mass and has been referred for further follow-up. Patient complains of intermittent dyspnea on exertion for which he is using Symbicort and albuterol MDI with suboptimal control of his symptoms. He denies family history of lung disease. After the last office visit patient has completed his CT chest that shows 2 right upper lobe masses. He continues to complain dyspnea on exertion intermittently. [facility] Medical History Tobacco dependence syndrome Rectal hemorrhage Prostatism Palpitations Nausea Leg edema, left Hyperglycemia Homeless History of COVID-19 Heartburn Essential hypertension Depressive disorder Chronic pain of left knee Chronic lower back pain Chest pain Asthma Amnesia Surgical History Umbilical hernia (04/01/23) History of surgery on lower extremity History of surgery on arm Family History Mother Heart disease Diabetes Dementia Brainstem hemorrhage Father No problems noted. Social History Alcohol intake: former Comment: counts correct Patient Tobacco Use Status: Former Tobacco user Tobacco use type: Cigarette Cigarette Packs Per Day: 0.5 Years Smoked: started age 22, half a pack a day, quit July 2024 service: No Review of Systems Const Denies daytime sleepiness, Denies excessive sweating, Denies fatigue, Denies fever(s), Denies lethargy, Denies malaise, Denies night sweats, Denies snoring and Denies weight loss Eyes Denies blurry vision and Denies itchy eyes ENT Denies nasal congestion, Denies post nasal drip, Denies sinus pain, Denies sinus pressure and Denies other ( Thrush) Card Denies chest pain, Denies pedal edema, Denies dyspnea, Reports dyspnea on exertion, Denies orthopnea and Denies paroxysmal nocturnal dyspnea Resp Denies cough, Denies hemoptysis, Denies excessive phlegm production, Denies dyspnea, Reports dyspnea on exertion, Denies snoring and Denies wheezing GI Denies abdominal pain and Denies heartburn Musc Denies myalgias, Denies arthralgias and Denies joint swelling Skin/Breast Denies rash Neuro Denies memory loss and Denies seizure-like activity Psych Denies abnormal sleep pattern, Denies anxiety and Denies memory loss Endo Denies excessive sweating, Denies fatigue and Denies heat intolerance Yousif/Lymph Denies easy bruising Aller/Immun Denies itchy eyes, Denies seasonal rhinorrhea and Denies wheezing Physical Exam Vital Signs: Last Vital Signs Pulse 104 H 12/28/24 13:36 BP 118/77 12/28/24 13:36 Pulse Ox 96 12/28/24 13:36 Oxygen Delivery Method Room Air 12/28/24 13:36 BMI result Body Mass Index 43.0 Const General: no acute distress and alert Nutritional Appearance: obese Orientation/consciousness: Other orientation findings ( oriented) HEENT Head: Yes atraumatic Eyes General: appearance normal, both eyes and all related structures Sclerae: sclerae normal EOM: EOMs intact bilaterally Neck Neck: Yes supple Lymphatic: no lymphadenopathy noted Resp Effort & Inspection: normal respiratory effort and no use of accessory muscles Auscultation: clear to auscultation bilaterally Cardio Rate: regular rate Rhythm: regular rhythm Heart sounds: no gallops, no murmurs and no rubs Skin General skin exam: other ( warm) Extrem General: No clubbing, No cyanosis and No edema Assessment & Plan Assessment & Plan (1) Lung mass: Code(s): R91.8 - Other nonspecific abnormal finding of lung field Category: Medical Plan: Will obtain PET scan. (2) COPD (chronic obstructive pulmonary disease): Code(s): J44.9 - Chronic obstructive pulmonary disease, unspecified Category: Medical Plan: Suboptimally controlled on Symbicort, theophylline, and albuterol MDI, will change Symbicort to Breztri. Coding Level of Care Code Est Pt Level 4 (58795) Diagnoses Lung mass R91.8 COPD (chronic obstructive pulmonary disease) J44.9
--- OUTSIDE RECORDS SUMMARY | 2024-12-28 18:21 | XMS_ITS | Data Portability ---
Author Organization [employer] [employer] [facility] Address [address] [place] [address] Care Team Providers Care Data Warehousing Architect Name Role Phone Unavailable OTHER HIM CCA [...] less likely infectious). Will need transfer. Plan: [facility] ER. Signed out at 1:45pm. Jarrett SARMIENTO I provided real -time medical direction via phone for this encounter, and was available for additional phone based assistance as needed. I have reviewed and agree with the Assessment and Plan as documented by the Wire Frame Lamp Shade Maker. We discussed the diagnostic uncertainty of home [...] Imaging electrocard iogram 2024 025 cfischett i7 [facility], [address] [place] [address], [phone] 13:27:04 Medication Orders None recorded. Patient TargetsNo targets recorded. Patient InstructionsNo instructions recorded. Reason for Referral None Reported. Results Created Date Observation Date Name Description Value Unit Range Abnormal Flag Note LastModifiedBy Organization Detail LastModifiedTime 08/18/1908/17/2024 elect maci sandsgr am No observ ation record ed. [facility] [address], [phone] 08/17/2024 14:58:58 Result Notes None recorded. Medical Equipment None Reported. Allergies Allergen ID Allergen Name Allergen Category Reaction Reaction Severity Criticality Documentation Date Start Date Code Code System Note Provider Name and Address Organization Details Recorded Time 05854 clonazepa m medicatio n Not available Not available Not available 08/17/2024 2598 RxNorm Not Available [employer] production 12:18:59 98360 morphine medicatio n Not available Not available Not available 08/17/2024 7052 RxNorm Not Available [facility] 12:18:59 16800 aspirin medicatio n Not available Not available [...] Recorded Respiratory rate Body temperature Oxygen saturation Heart rate Systolic And Diastolic Provider Name and Address Organization Details Last Updated DateTime 16 /min 97.1 [degF] 98 % 102 /min 160/98 mm[Hg] Not Available [employer] 13:20:38 Social History None recorded. Functional Status None recorded. Mental Status None recorded. Family History Nothing Reported. Medical History No medical history recorded. Past Encounters Encounter ID Performer Location Encounter Start Date Encounter Closed Date Diagnosis/Indication Diagnosis SNOMED-CT Code Diagnosis ICD10 Code Diagnosis IMO Codes Diagnosis Note [id number] SOLANGE BRISENO MD [facility] Medical [facility] [address] [place] [address] 08/17/2024 13:20:27 08/17/2024 14:24:41 Chest pain 12055035 R07.9 [id number] Health Concerns Section Related Observation LastModified by Organization Detai ls LastModified Time None Recorded Concern Status LastModified by Organization Details LastModified Time None Recorded Advance Directives Directive None Recorded Payers Insurance Date Sequence Insurance Name Policy Number Policy Doss Covered Member ID Doss Member ID Guarantor Name 09/12/2024 1 [facility] - DOS ON OR AFTER 2022 - DUAL ELIGIBLE - [employer] AND ONE CARE (MEDICARE REPLACEMENT/ADV ANTAGE - HMO) Jason Martinez [id number] Jason Martinez Notes Date Note Type Note [...] at 08/17/2024 - 12:18 Comments: HPI reviewed Wire Frame Lamp Shade Maker Organization Information for Eugene Snowden Legal Name: [employer] Address: [address] [place] [address], Senior Clinical Research Scientist: Byron Todd MD CLIA No.: [id number] [employer] Sh[employer] POC Test Results from Eugene Snowden EKG (13:11:38) EKG test performed. Attachments uploaded as part of this test result can be found under Documents section. .................. .................. .................. .................. .................. .................. .................. ............... Wire [employer] Lamp Shade Maker Note From Eugene Snowden: Pt seen for [...] pulse. VS as noted. Pt placed on monitoring specialist showing NSR with no ectopy. 12 lead non diagnostic. [facility] [place] and advised of Pt complaint, presentation and exam findings. [facility] request Pt be sent to ED, Pt request to go to [facility], [facility] informed of this. EMS called via 911, Pt care and transport turned over to ALS crew with [facility], call closed. .................. .................. .................. .................. .................. .................. .................. ............... [facility] Consulted: Solange Briseno .................. .................. .................. .................. .................. .................. .................. ............... Disposition: Fulfilled SOLANGE BRISENO MD [address] [facility],[address] [facility], [place], [phone], JEFE BERG 08/17/2024 14:19:36
== END 2024-12-28 13:58 | disposition home or self-care (01) ==
LOC: HO.HPS 12:21
PROVIDERS: Visit Provider Internal Medicine Pulmonary Disease
DX: R91.8 Other nonspecific abnormal finding of lung field (principal); J44.9 Chronic obstructive pulmonary disease, unspecified
CPT/HCPCS: 99214

== ENCOUNTER → 2024-12-28 12:20 | Outpatient (BNVA) | payer OTHER, SELFPAY | PROVIDERS: Visit Provider Internal Medicine Pulmonary Disease | DX: R91.8 Other nonspecific abnormal finding of lung field (principal); J44.9 Chronic obstructive pulmonary disease, unspecified; Z87.891 Personal history of nicotine dependence | CPT/HCPCS: 99212 ==

== ENCOUNTER 2025-01-11 12:14 | Outpatient (REF) | payer OTHER, SELFPAY ==
[2025-01-11 13:26] LABS: Appearance Urine Clear; Glucose Urine UA Negative (Negative); PH 5.0 (5.0-9.0); Specific Gravity - Urine >= 1.030 (1.005-1.025); UMIC TRIGGER UA YES
[2025-01-11 16:17] LABS: Anion Gap 14 (12-20); Blood Urea Nitrogen 18 mg/dL (9-16); Calcium 10.3 mg/dL (8.4-10.2); Carbon Dioxide 25 mmol/L (22-29); Chloride 106 mmol/L (96-108); Estimated Glomerular Filt Rate 37; Potassium 5.0 mmol/L (3.3-5.1); Sodium 140 mmol/L (135-145)
[2025-01-12 05:35] LABS: HBsAGNum1 0.28 S/CO (0.00-0.99); HIV Num 1 0.06 S/CO (0.00-0.99); Hepatitis B Surface Antigen Negative (Negative); ~HepC Num1 0.16 S/CO (0.00-0.79); ~Hepatitis C Antibody Nonreactive (Nonreactive)
[2025-01-12 13:13] LABS: Rapid Plasma Reagin Ab Titer 1:2
== END 2025-01-11 12:15 | disposition home or self-care (01) ==
LOC: HO.HHCL 12:14
PROVIDERS: Internal Medicine Hypertension Specialist; Nurse Practitioner Family; PCP Internal Medicine Geriatric Medicine; Visit Provider Internal Medicine Geriatric Medicine
DX: Z11.4 Encounter for screening for human immunodeficiency virus [HIV] (principal); Z11.3 Encounter for screening for infections with a predominantly sexual mode of transmission; Z11.59 Encounter for screening for other viral diseases; N18.32 Chronic kidney disease, stage 3b
CPT/HCPCS: 36415; 80048; 81001; 86592; 86593; 86803; 87340; 87389